=== PATIENT | male | born 1950 | race Caucasian/White ===

== ENCOUNTER 2016-05-21 07:45 | Day surgery (SDC) | payer BC, MEDICARE, OTHER ==
[~2016-05-21 07:45] MED LIST: CHONDR SU A NA/HYALUR INTRAOC KIT (SURGICARE) ONE; EPINEPHRINE INJ/PF 1 MG/1 ML AMPULE ONE; KETOROLAC TROMETHAMINE 0.45% 4 DROP/0.4 ML DROPERETTE OD PRN; LIDOCAINE 1% INJ-PF (10 MG/ML) 30 ML SDV ONE; TOBRAMYCIN SULFATE/DEXAMETH OPH OINTMENT 3.5 GM ONE
[2016-05-21] MEDS: CYCLOPENTOLATE 0.2%/PHENYLEPHRINE 1% OPH SOLN 2 ML OD PRN ×3 (08:06→08:27)
[2016-05-21] MEDS: BESIFLOXACIN HCL 0.6% OPH SUSP 5 ML BOTTLE OD PRN ×3 (08:06→08:55)
[2016-05-21] MEDS: TROPICAMIDE 1% OPH SOLN 3 ML OD PRN ×3 (08:06→08:27)
[2016-05-21] MEDS ORDERED: ALBUTEROL SULFATE 0.083% NEB 2.5 MG/3 ML AMPUL NEB ONE (08:07)
[2016-05-21] MEDS: TETRACAINE HCL 0.5% OPH SOLN 0.6 ML DROPERETTE OD PRN ×3 (08:07→08:35)
[2016-05-21] MEDS ORDERED: FENTANYL CITRATE INJ/PF 100 MCG/2 ML AMPUL ONE (08:15)
[2016-05-21] MEDS ORDERED: MIDAZOLAM 2 MG/2 ML INJ ONE (08:15)
== END 2016-05-21 09:33 | disposition home or self-care (01) ==
LOC: SC 07:45
PROVIDERS: ATTEND Ophthalmology
PROC: 08RJ3JZ Replacement of Right Lens with Synthetic Substitute, Percutaneous Approach (ICD-10-PCS; principal; 2016-05-21 09:00)
DX: H25.11 Age-related nuclear cataract, right eye (principal); J44.9 Chronic obstructive pulmonary disease, unspecified; I10 Essential (primary) hypertension; E11.9 Type 2 diabetes mellitus without complications; E66.9 Obesity, unspecified; F17.210 Nicotine dependence, cigarettes, uncomplicated; M19.90 Unspecified osteoarthritis, unspecified site; E78.00 Pure hypercholesterolemia, unspecified; Z79.51 Long term (current) use of inhaled steroids; Z79.899 Other long term (current) drug therapy; Z79.84 Long term (current) use of oral hypoglycemic drugs; Z79.4 Long term (current) use of insulin
CPT/HCPCS: 82962; 66984; V2630; J2250; J3490 ×3; A9270 ×2; J0171; J3010; 142

== ENCOUNTER 2016-06-04 06:25 | Day surgery (SDC) | payer BC, MEDICARE, OTHER ==
[~2016-06-04 06:25] MED LIST changes: -CHONDR SU A NA/HYALUR INTRAOC KIT (SURGICARE) ONE; -EPINEPHRINE INJ/PF 1 MG/1 ML AMPULE ONE; -KETOROLAC TROMETHAMINE 0.45% 4 DROP/0.4 ML DROPERETTE OD PRN; +KETOROLAC TROMETHAMINE 0.45% 4 DROP/0.4 ML DROPERETTE OS PRN; -LIDOCAINE 1% INJ-PF (10 MG/ML) 30 ML SDV ONE; -TOBRAMYCIN SULFATE/DEXAMETH OPH OINTMENT 3.5 GM ONE
[2016-06-04] MEDS ORDERED: MIDAZOLAM 2 MG/2 ML INJ ONE ×2 (06:39→07:05)
[2016-06-04] MEDS ORDERED: FENTANYL CITRATE INJ/PF 100 MCG/2 ML AMPUL ONE ×2 (06:40→07:05)
[2016-06-04] MEDS: TROPICAMIDE 1% OPH SOLN 3 ML OS PRN ×3 (06:46→07:06)
[2016-06-04] MEDS: BESIFLOXACIN HCL 0.6% OPH SUSP 5 ML BOTTLE OS PRN ×3 (06:46→07:53)
[2016-06-04] MEDS: CYCLOPENTOLATE 0.2%/PHENYLEPHRINE 1% OPH SOLN 2 ML OS PRN ×3 (06:46→07:06)
[2016-06-04] MEDS: TETRACAINE HCL 0.5% OPH SOLN 0.6 ML DROPERETTE OS PRN ×3 (06:47→07:34)
[2016-06-04] MEDS ORDERED: TOBRAMYCIN SULFATE/DEXAMETH OPH OINTMENT 3.5 GM ONE (07:09)
[2016-06-04] MEDS ORDERED: LIDOCAINE 1% INJ-PF (10 MG/ML) 30 ML SDV ONE (07:09)
[2016-06-04] MEDS ORDERED: EPINEPHRINE INJ/PF 1 MG/1 ML AMPULE ONE (07:09)
[2016-06-04] MEDS ORDERED: CHONDR SU A NA/HYALUR INTRAOC KIT (SURGICARE) ONE (07:09)
[2016-06-04] MEDS ORDERED: ALBUTEROL SULFATE 0.083% NEB 2.5 MG/3 ML AMPUL NEB ONE (07:10)
== END 2016-06-04 08:35 | disposition home or self-care (01) ==
LOC: SC 06:25
PROVIDERS: ATTEND Ophthalmology
PROC: 08RK3JZ Replacement of Left Lens with Synthetic Substitute, Percutaneous Approach (ICD-10-PCS; principal; 2016-06-04 07:30)
DX: H25.12 Age-related nuclear cataract, left eye (principal); M19.90 Unspecified osteoarthritis, unspecified site; E11.9 Type 2 diabetes mellitus without complications; I10 Essential (primary) hypertension; E78.00 Pure hypercholesterolemia, unspecified; Z96.1 Presence of intraocular lens; J44.9 Chronic obstructive pulmonary disease, unspecified; I49.9 Cardiac arrhythmia, unspecified; Z79.899 Other long term (current) drug therapy; Z79.1 Long term (current) use of non-steroidal anti-inflammatories (NSAID); Z87.891 Personal history of nicotine dependence; Z85.72 Personal history of non-Hodgkin lymphomas; Z68.42 Body mass index [BMI] 45.0-49.9, adult
CPT/HCPCS: 82962; 66984; V2630; J2250; J3490 ×3; A9270 ×2; J0171; J3010; 142

== ENCOUNTER → 2016-08-01 | Outpatient (CLI) | payer MEDICARE ==
[2016-08-01 11:47] LABS: ANION GAP 12 (5-19); BLOOD UREA NITROGEN 42 mg/dL (7-20); CALCIUM 9.1 mg/dL (8.4-10.2); CARBON DIOXIDE 28 mmol/L (22-30); CHLORIDE 98 mmol/L (98-107); CREATININE RESULT 1.09 mg/dL (0.52-1.25); GLUCOSE 102 mg/dL (75-110)
[2016-08-01 11:54] LABS: POTASSIUM 5.9 mmol/L (3.6-5.0)
== END ==
LOC: OD 10:44
PROVIDERS: ATTEND Internal Medicine Cardiovascular Disease
DX: R06.00 Dyspnea, unspecified (principal)
CPT/HCPCS: 36415; 80048

== ENCOUNTER 2017-01-20 11:50 | Emergency (ER) | payer MEDICARE ==
--- NOTE | 2017-01-20 13:01 | ER Document Report ---
ED Medical Screen (RME) - General Chief Complaint: Abscess Stated Complaint: ABCESS Time Seen by Provider: 01/20/17 13:00 TRAVEL OUTSIDE OF THE [place] IN LAST 30 DAYS: No - HPI Notes: 01/20/17 13:01 Patient comes in for generalized weakness and scrotal abscess ongoing for a few days. Patient is on home O2 did not bring his O2 with him today. - Related Data Allergies/Adverse Reactions: No Known Allergies Allergy (Verified 01/20/17 12:59) Past Medical History - Social History Chew tobacco use (# tins/day): No Frequency of alcohol use: None Drug Abuse: None - Past Medical History Cardiac Medical History: Reports: Hx Hypercholesterolemia, Hx Hypertension Denies: Hx Heart Attack Pulmonary Medical History: Denies: Hx Asthma - ? Neurological Medical History: Denies: Hx Cerebrovascular Accident, Hx Seizures Endocrine Medical History: Reports: Hx Diabetes Mellitus Type 2 Renal/ Medical History: Denies: Hx Peritoneal Dialysis GI Medical History: Denies: Hx Hepatitis, Hx Hiatal Hernia, Hx Ulcer Infectious Medical History: Denies: Hx Hepatitis Past Surgical History: Denies: Hx Open Heart Surgery, Hx Pacemaker - Immunizations Hx Diphtheria, Pertussis, Tetanus Vaccination: Yes Review of Systems - Review of Systems Constitutional: Weakness Physical Exam - General General appearance: Appears well
[2017-01-20] MEDS ORDERED: VANCOMYCIN HCL INJ 1000 MG VIAL IV ONE (14:03)
[2017-01-20] MEDS ORDERED: PIPERACILLIN/TAZOBACTAM 4.5 GM VIAL IV ONE (14:03)
[2017-01-20] MEDS ORDERED: NORMAL SALINE 1000 ML 1,000 ML IV ONE (14:08)
[2017-01-20] MEDS ORDERED: MORPHINE SULFATE 10 MG/ML INJ IV ONE (14:19)
[2017-01-20] MEDS ORDERED: ONDANSETRON HCL INJ/PF 4 MG/2 ML SDV IV ONE (14:19)
[2017-01-20 15:02] LABS: HEMATOCRIT 38.2 % (37.9-51.0); HEMOGLOBIN 12.5 g/dL (13.5-17.0); HGB HCT DIFFERENCE -0.7; MEAN CORPUSCULAR HEMOGLOBIN 28.4 pg (27.0-33.4); MEAN CORPUSCULAR HGB CONC 32.8 g/dL (32.0-36.0); MEAN CORPUSCULAR VOLUME 87 fl (80-97); RED BLOOD COUNT 4.42 10^6/uL (4.35-5.55); RED CELL DISTRIBUTION WIDTH 15.6 % (11.5-14.0)
[2017-01-20 15:08] LABS: ALANINE AMINOTRANSFERASE 76 U/L (21-72); ALBUMIN 3.4 g/dL (3.5-5.0); ALKALINE PHOSPHATASE 112 U/L (38-126); ANION GAP 14 (5-19); ASPARTATE AMINO TRANSFERASE 70 U/L (17-59); BILIRUBIN,DIRECT 1.7 mg/dL (0.0-0.4); BLOOD UREA NITROGEN 48 mg/dL (7-20); CALCIUM 8.3 mg/dL (8.4-10.2); CARBON DIOXIDE 26 mmol/L (22-30); CHLORIDE 92 mmol/L (98-107); CREATININE RESULT 2.09 mg/dL (0.52-1.25); GLUCOSE 137 mg/dL (75-110); LIPASE 119.3 U/L (23-300); MAGNESIUM 1.8 mg/dL (1.6-2.3); POTASSIUM 4.2 mmol/L (3.6-5.0); SODIUM 131.6 mmol/L (137-145); TOTAL PROTEIN 6.4 g/dL (6.3-8.2)
[2017-01-20 15:26] LABS: BASOPHILS % (MANUAL) 0 % (0-2); EOSINOPHILS % (MANUAL) 0 % (0-6); LYMPHOCYTES % (MANUAL) 3 % (13-45); TOTAL CELLS COUNTED 100
[2017-01-20 15:27] LABS: ANISOCYTOSIS SLIGHT
[2017-01-20 15:28] LABS: TOXIC VACUOLATION PRESENT
--- NOTE | 2017-01-20 15:52 | ER Document Report ---
ED General - General Chief Complaint: Abscess Stated Complaint: ABCESS Time Seen by Provider: 01/20/17 13:00 TRAVEL OUTSIDE OF THE [place] IN LAST 30 DAYS: No - HPI Patient complains to provider of: Scrotal abscess feeling weak Notes: Patient coming in stating he has an abscess in the scrotum ongoing for the last week. Patient does state a history of hypertension diabetes patient also states history of multiple myeloma has a port in his right chest due to therapy in the past. Patient states pain now scrotum difficult to walk. Patient denies any fevers chills at home. Patient otherwise denies any other complaints of generalized weakness. Patient supposed to be on home O2 however came to the ER today without his home O2. We will treat his COPD in the past. Patient otherwise looks to be well. Patient does have a foul odor that emanates from him. - Related Data Allergies/Adverse Reactions: No Known Allergies Allergy (Verified 01/20/17 12:59) Past Medical History - Social History Smoking Status: Unknown if Ever Smoked Chew tobacco use (# tins/day): No Frequency of alcohol use: None Drug Abuse: None Family History: Reviewed & Not Pertinent Patient has suicidal ideation: No Patient has homicidal ideation: No - Past Medical History Cardiac Medical History: Reports: Hx Hypercholesterolemia, Hx Hypertension Denies: Hx Heart Attack Pulmonary Medical History: Denies: Hx Asthma - ? Neurological Medical History: Denies: Hx Cerebrovascular Accident, Hx Seizures Endocrine Medical History: Reports: Hx Diabetes Mellitus Type 2 Renal/ Medical History: Denies: Hx Peritoneal Dialysis GI Medical History: Denies: Hx Hepatitis, Hx Hiatal Hernia, Hx Ulcer Infectious Medical History: Denies: Hx Hepatitis Past Surgical History: Denies: Hx Open Heart Surgery, Hx Pacemaker - Immunizations Hx Diphtheria, Pertussis, Tetanus Vaccination: Yes Review of Systems - Review of Systems Constitutional: Weakness EENT: No symptoms reported Cardiovascular: No symptoms reported Respiratory: No symptoms reported Gastrointestinal: No symptoms reported Genitourinary: No symptoms reported Male Genitourinary: No symptoms reported Musculoskeletal: No symptoms reported Skin: Other - Scrotal abscess Hematologic/Lymphatic: No symptoms reported Neurological/Psychological: No symptoms reported Physical Exam - Vital signs Vitals: Temp Pulse Resp BP Pulse Ox 98.0 F 97 16 133/98 H 86 L 01/20/17 12:31 01/20/17 12:31 01/20/17 12:31 01/20/17 12:31 01/20/17 12:31 Interpretation: Normal - General General appearance: Appears well, Alert - HEENT Head: Normocephalic, Atraumatic Eyes: Normal Pupils: PERRL - Respiratory Respiratory status: No respiratory distress Chest status: Nontender Breath sounds: Normal Chest palpation: Normal - Cardiovascular Rhythm: Regular Heart sounds: Normal auscultation Murmur: No - Abdominal Inspection: Normal Distension: No distension Bowel sounds: Normal Tenderness: Nontender Organomegaly: No organomegaly - Genitourinary Notes: Patient has obvious necrotic tissue involving the tip of the penis and the right hemiscrotum the left hemiscrotum is red and edematous there is a similar process extends to the peritoneal region also along the inguinal canals bilaterally. - Back Back: Normal, Nontender - Extremities General upper extremity: Normal inspection, Nontender, Normal color, Normal ROM , Normal temperature General lower extremity: Normal inspection, Nontender, Normal color, Normal ROM , Normal temperature, Normal weight bearing. 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 Laboratory studies showed acute renal failure with leukocytosis. Patient also has some slight elevation in his LFTs more likely due to patient being sick. Otherwise patient has remained hemodynamically stable patient case was discussed with family at bedside and knows the significance of this diagnosis she also understands that he may lose his scrotum and part of his penis. Patient was given vancomycin and Zosyn IV fluids were also given to the patient. Patient's case was discussed with Dr. Bob's general surgery at [facility] who agrees and accepting the patient in transfer. - Vital Signs Vital signs: Temp Pulse Resp BP Pulse Ox 98.5 F 97 19 107/65 97 01/20/17 16:46 01/20/17 12:31 01/20/17 16:43 01/20/17 16:43 01/20/17 16:43 - Laboratory Result Diagrams: 01/20/17 14:20 01/20/17 14:20 Laboratory results interpreted by me: 01/20/17 01/20/17 01/20/17 13:19 14:20 14:20 WBC 23.0 H Hgb 12.5 L RDW 15.6 H Seg Neuts % (Manual) 91 H Lymphocytes % (Manual) 3 L Abs Neuts (Manual) 20.9 H Sodium 131.6 L Chloride 92 L BUN 48 H Creatinine 2.09 H Est GFR ( Amer) 39 L Est GFR (Non-Af Amer) 32 L Glucose 137 H POC Glucose 131 H Calcium 8.3 L Total Bilirubin 2.0 H Direct Bilirubin 1.7 H AST 70 H ALT 76 H Albumin 3.4 L Critical Care Note - Critical Care Note Total time excluding time spent on procedures (mins): 40 Comments: Multiple evaluations for James's gangrene Discharge - Discharge Clinical Impression: Fourniers gangrene Condition: Stable Disposition: [facility] Referrals: COSMO GUILLEN MD [Primary Care Provider] - Follow up as needed
[2017-01-20 16:03] VITALS: BP 107/65
[2017-01-20] MEDS: NORMAL SALINE 1000 ML 1,000 ML IV PRN ×2 (16:09→16:12)
== END 2017-01-20 17:03 | disposition short-term general hospital (02) ==
LOC: ER 11:50
DX: E11.52 Type 2 diabetes mellitus with diabetic peripheral angiopathy with gangrene (principal); N49.3 Fournier gangrene; N49.2 Inflammatory disorders of scrotum; N17.9 Acute kidney failure, unspecified; I10 Essential (primary) hypertension; R53.1 Weakness
CPT/HCPCS: 36591; 99291; 96361; 96375; 96365; 96367; 36415; 87040; 82962; 83690; 83735; 85025; 87077; 80053; 83605; J2270; J2405; J7030; J3370; J2543

== ENCOUNTER 2018-01-26 14:30 | Emergency (ER) | payer MEDICARE ==
--- NOTE | 2018-01-26 15:23 | RADIOLOGY REPORT (SQ) ---
EXAM DESCRIPTION: SHOULDER LEFT 1 VIEW COMPLETED DATE/TIME: 01/26/2018 3:13 pm REASON FOR STUDY: bed 16 s/p fall +deformity COMPARISON: None. NUMBER OF VIEWS: One view. TECHNIQUE: Single frontal view of the shoulder labeled left was obtained. LIMITATIONS: None. FINDINGS: MINERALIZATION: Normal. BONES: There is a comminuted fracture of the left proximal humeral diaphysis with large butterfly fra gment. There is approximately 1 shaft width of lateral displacement of the distal fracture fragments . No definite dislocation appreciated on this single frontal radiograph. VISUALIZED LUNGS AND RIBS: No pneumothorax. No rib fracture. SOFT TISSUES: No radiopaque foreign body. OTHER: No other significant finding. IMPRESSION: Comminuted fracture of the left proximal humeral diaphysis with large butterfly fragment . Approximately 1 shaft width of lateral displacement of the distal fracture fragments. No definite shoulder dislocation on this single frontal radiograph. TECHNICAL DOCUMENTATION: JOB ID: [id number] [employer]- All Rights Reserved Reading location - IP/workstation name: [email or web address]
[2018-01-26] MEDS ORDERED: LIDOCAINE 1%/EPINEPHRINE INJ 20 ML VIAL INJ ONE (15:25)
[2018-01-26] MEDS ORDERED: FENTANYL CITRATE INJ/PF 100 MCG/2 ML AMPUL IV ONE (15:25)
--- NOTE | 2018-01-26 15:30 | ER Document Report ---
ED Syncope and Near Syncope - General Stated Complaint: HEAD INJURY Time Seen by Provider: 01/26/18 14:58 Mode of Arrival: Medic Information source: Patient, Relative Notes: Patient states that he was at home and he stood up to use the urinal and got dizzy. Patient states that he lost his balance and fell landing on a glass TV stand. Patient denies any loss of consciousness. Patient does complain of left arm injury and facial laceration. Patient denies any nausea or vomiting. Patient denies any chest pain neck pain or back tenderness. Patient states that he felt fine before he got up to go to the bathroom. Patient complains now only of left arm pain TRAVEL OUTSIDE OF THE [place] IN LAST 30 DAYS: No - HPI Patient complains to provider of: Nearly fainting Episode witnessed (by whom): No Symptoms prior to episode: Dizziness. No: Back pain, Chest pain, Headache Position/Activity at time of episode: Standing Quality of pain: Sharp Pain Level: 5 Context: Other - Dizziness after standing suddenly. denies: Lost consciousness , Recent immobilization, Seizure activity observed Injury location: Head, LUE Current symptoms: Arm pain. denies: Nausea, Neck pain, Shoulder pain Similar symptoms previously: No Recently seen / treated by doctor: No - Related Data Allergies/Adverse Reactions: No Known Allergies Allergy (Verified 01/20/17 12:59) Past Medical History - General Information source: Patient - Social History Smoking Status: Current Every Day Smoker Frequency of alcohol use: None Drug Abuse: None Occupation: None Lives with: Family Family History: Reviewed & Not Pertinent - Past Medical History Cardiac Medical History: Reports: Hx Congestive Heart Failure, Hx Hypercholesterolemia, Hx Hypertension Denies: Hx Heart Attack Pulmonary Medical History: Reports: Hx COPD Denies: Hx Asthma - ? Neurological Medical History: Denies: Hx Cerebrovascular Accident, Hx Seizures Endocrine Medical History: Reports: Hx Diabetes Mellitus Type 2 Renal/ Medical History: Denies: Hx Peritoneal Dialysis Malignancy Medical History: Reports Hx Lymphoma GI Medical History: Denies: Hx Hepatitis, Hx Hiatal Hernia, Hx Ulcer Musculoskeletal Medical History: Reports Hx Arthritis Infectious Medical History: Denies: Hx Hepatitis Past Surgical History: Reports: Hx Neurologic Surgery - Spinal tumor removed, Hx Testicular Surgery - James's gangrene. Denies: Hx Open Heart Surgery, Hx Pacemaker - Immunizations Hx Diphtheria, Pertussis, Tetanus Vaccination: Yes Review of Systems - Review of Systems Constitutional: No symptoms reported. denies: Diaphoresis, Fever EENT: No symptoms reported Cardiovascular: Dizziness. denies: Chest pain Respiratory: No symptoms reported. denies: Cough, Short of breath Gastrointestinal: No symptoms reported. denies: Abdominal pain, Nausea, Vomiting Genitourinary: No symptoms reported Male Genitourinary: No symptoms reported Musculoskeletal: Other - Left upper extremity pain Skin: Other - Facial laceration Hematologic/Lymphatic: No symptoms reported Neurological/Psychological: No symptoms reported. denies: Lost consciousness Physical Exam - Vital signs Vitals: Temp 98.4 F 01/26/18 14:30 - General General appearance: Appears well, Alert In distress: Mild - HEENT Head: Open wounds - large lac to left brow. No: Racoon's eyes Conjunctiva: Normal Extraocular movements intact: Yes Nasal: Normal Mouth/Lips: Normal Mucous membranes: Normal Neck: Normal, Supple Notes: No cervical midline tenderness step-off or deformity - Respiratory Respiratory status: No respiratory distress Chest status: Nontender Breath sounds: Normal. No: Rales, Rhonchi, Stridor, Wheezing Chest palpation: Normal - Cardiovascular Rhythm: Regular Heart sounds: S1 appreciated, S2 appreciated Pulses: Normal: Radial - Abdominal Inspection: Morbidly Obese Distension: No distension Bowel sounds: Normal Tenderness: Nontender Organomegaly: No organomegaly - Back Back: Normal. No: Deformity/step-off, CVA tenderness, Vertebra tenderness - Extremities General upper extremity: Tender - LUE tenderness, +deformity, Edema General lower extremity: Edema - bilat LE, Normal ROM - Neurological Neuro grossly intact: Yes Cognition: Normal Lexii Coma Scale Eye Opening: Spontaneous Lexii Coma Scale Verbal: Oriented [place] Coma Scale Motor: Obeys Commands Lexii Coma Scale Total: 15 - Psychological Associated symptoms: Normal affect, Normal mood - Skin Skin Temperature: Warm Skin Moisture: Dry Skin Color: Normal Skin irregularity: Laceration Location of irregularity: Face Course - Re-evaluation Re-evalutation: 01/26/18 18:15 While at bedside repairing patient's facial laceration, patient states that he has been having left upper quadrant, lower costal rib tenderness that started since his arrival here. Additional studies ordered. 01/26/18 20:04 CT scan report reviewed, no intra-abdominal or intrathoracic chest wall injury. Consulted with Dr. Orlando regarding patient's humeral fracture. Dr Orlando advises placing patient in a shoulder immobilizer and having him follow-up in the office. 01/26/18 20:29 Bedside report and handout given to Jeff JUSTICE. Patient continues with stable vital signs without complaints of chest pain at this time. Patient is awaiting a repeat troponin. 01/26/18 20:33 Patient advised of incidental finding of adenopathy noted on CT scan. Patient given a copy of his CAT scan so that he can follow-up with his primary doctor about the retroperitoneal adenopathy given his history of lymphoma. 01/26/18 20:37 Repeat troponin reviewed, consulted with Dr. Roca regarding patient presentation, reviewed diagnostic test results as well as radiology reports. Agrees with discharge plan of care as ortho does not feel the patient needs to be admitted at this time. - Vital Signs Vital signs: Temp Pulse Resp BP Pulse Ox 98.4 F 97 01/26/18 14:30 01/26/18 15:25 - Laboratory Result Diagrams: 01/26/18 15:40 01/26/18 15:40 Laboratory results interpreted by me: 01/26/18 01/26/18 15:40 15:40 WBC 13.4 H Hgb 12.2 L Hct 37.6 L RDW 17.1 H Seg Neuts % (Manual) 87 H Lymphocytes % (Manual) 3 L Abs Neuts (Manual) 11.7 H Abs Lymphs (Manual) 0.4 L Chloride 93 L Carbon Dioxide 37 H BUN 23 H Glucose 336 H AST 12 L ALT 19 L Creatine Kinase 39 L Total Protein 6.0 L Labs- Entire Visit 01/26/18 01/26/18 01/26/18 15:40 15:40 15:40 WBC 13.4 H RBC 4.47 Hgb 12.2 L Hct 37.6 L MCV 84 MCH 27.3 MCHC 32.4 RDW 17.1 H Plt Count 265 Total Counted 100 Seg Neutrophils % Not Reportable Seg Neuts % (Manual) 87 H Lymphocytes % Not Reportable Lymphocytes % (Manual) 3 L Monocytes % Not Reportable Monocytes % (Manual) 9 Eosinophils % Not Reportable Eosinophils % (Manual) 1 Basophils % Not Reportable Basophils % (Manual) 0 Absolute Neutrophils Not Reportable Abs Neuts (Manual) 11.7 H Absolute Lymphocytes Not Reportable Abs Lymphs (Manual) 0.4 L Absolute Monocytes Not Reportable Abs Monocytes (Manual) 1.2 Absolute Eosinophils Not Reportable Absolute Eos (Manual) 0.1 Absolute Basophils Not Reportable Abs Basophils (Manual) 0.0 Toxic Granulation SLIGHT Platelet Comment ADEQUATE Poikilocytosis SLIGHT Anisocytosis SLIGHT Sodium 137.5 Potassium 4.6 Chloride 93 L Carbon Dioxide 37 H Anion Gap 8 BUN 23 H Creatinine 0.96 Est GFR ( Amer) > 60 Est GFR (Non-Af Amer) > 60 Glucose 336 H Calcium 8.6 Magnesium 1.7 Total Bilirubin 0.9 Direct Bilirubin 0.1 Neonat Total Bilirubin Not Reportable Neonat Direct Bilirubin Not Reportable Neonat Indirect Bili Not Reportable AST 12 L ALT 19 L Alkaline Phosphatase 117 Creatine Kinase 39 L CK-MB (CK-2) 1.07 Troponin I < 0.012 Total Protein 6.0 L Albumin 3.5 01/26/18 19:35 WBC RBC Hgb Hct MCV MCH MCHC RDW Plt Count Total Counted Seg Neutrophils % Seg Neuts % (Manual) Lymphocytes % Lymphocytes % (Manual) Monocytes % Monocytes % (Manual) Eosinophils % Eosinophils % (Manual) Basophils % Basophils % (Manual) Absolute Neutrophils Abs Neuts (Manual) Absolute Lymphocytes Abs Lymphs (Manual) Absolute Monocytes Abs Monocytes (Manual) Absolute Eosinophils Absolute Eos (Manual) Absolute Basophils Abs Basophils (Manual) Toxic Granulation Platelet Comment Poikilocytosis Anisocytosis Sodium Potassium Chloride Carbon Dioxide Anion Gap BUN Creatinine Est GFR ( Amer) Est GFR (Non-Af Amer) Glucose Calcium Magnesium Total Bilirubin Direct Bilirubin Neonat Total Bilirubin Neonat Direct Bilirubin Neonat Indirect Bili AST ALT Alkaline Phosphatase Creatine Kinase CK-MB (CK-2) Troponin I 0.017 Total Protein Albumin - Diagnostic Test Radiology reviewed: Reports reviewed Procedures - Immobilization Left Arm Pre-Proc Neuro Vasc Exam: Normal Immobilizer type: Shoulder immobilizer Performed by: RN Post-Proc Neuro Vasc Exam: Normal Alignment checked and good: Yes - Laceration/Wound Repair Left Face Wound length (cm): 6.5 Wound's Depth, Shape: Linear Laceration pre-procedure: Shur-Clens applied Anesthetic type: 1% Lidocaine w/epi Wound explored: Clean Irrigated w/ Saline (mLs): 100 Wound Repaired With: Sutures Suture Size/Type: 6:0, Nylon Number of Sutures: 16 Layer Closure?: Yes Deep Layer Suture Size/Type: 5:0, Other - vicryl Number Deep Layer Sutures: 2 Post-procedure NV exam normal: Yes Complications: No Adult Head Front/Back picture: 1 - lac 2 - lac Face Wound length (cm): 1.5 Wound's Depth, Shape: Linear Anesthetic type: 1% Lidocaine w/epi Wound explored: Clean Wound Repaired With: Sutures Suture Size/Type: 6:0, Nylon Number of Sutures: 2 Layer Closure?: No Post-procedure NV exam normal: Yes Complications: No Discharge - Discharge Clinical Impression: Left humeral fracture Qualifiers: Encounter type: initial encounter Humerus Location: shaft Fracture type: closed Fracture morphology: comminuted Fracture alignment: displaced Qualified Code(s): S42.352A - Displaced comminuted fracture of shaft of humerus, left arm , initial encounter for closed fracture Abdominal pain Qualifiers: Abdominal location: left upper quadrant Qualified Code(s): R10.12 - Left upper quadrant pain Head injury Qualifiers: Encounter type: initial encounter Qualified Code(s): S09.90XA - Unspecified injury of head, initial encounter Facial laceration Qualifiers: Encounter type: initial encounter Qualified Code(s): S01.81XA - Laceration without foreign body of other part of head, initial encounter Condition: Stable Disposition: HOME, SELF-CARE Instructions: Abdominal Pain ([facility]), Facial Laceration ([facility]), Fracture ([facility]), Head Injury Precautions ([facility]), Near Syncopal Episode ([facility]), Sling to be Used ( [facility]) Additional Instructions: Return immediately for any new or worsening symptoms Followup with your primary care provider, call tomorrow to make a followup appointment Follow-up with orthopedics, call their office first thing tomorrow for a follow- up appointment. Prescriptions: Oxycodone HCl/Acetaminophen [Percocet 5-325 mg Tablet] 1 tab PO ASDIR PRN #15 tablet PRN Reason: Forms: Smoking Cessation Education Referrals: COSMO GUILLEN MD [Primary Care Provider] - Follow up as needed DALTON GAO MD [ACTIVE STAFF] - Follow up tomorrow
[2018-01-26 15:58] LABS: HEMATOCRIT 37.6 % (37.9-51.0); HEMOGLOBIN 12.2 g/dL (13.5-17.0); MEAN CORPUSCULAR HEMOGLOBIN 27.3 pg (27.0-33.4); MEAN CORPUSCULAR HGB CONC 32.4 g/dL (32.0-36.0); MEAN CORPUSCULAR VOLUME 84 fl (80-97); PLATELET COUNT 265 10^3/uL (150-450); RED BLOOD COUNT 4.47 10^6/uL (4.35-5.55); RED CELL DISTRIBUTION WIDTH 17.1 % (11.5-14.0); WHITE BLOOD COUNT 13.4 10^3/uL (4.0-10.5)
[2018-01-26 16:17] LABS: ABSOLUTE LYMPHOCYTES# (MANUAL) 0.4 10^3/uL (0.5-4.7); ABSOLUTE MONOCYTES # (MANUAL) 1.2 10^3/uL (0.1-1.4); ABSOLUTE NEUTROPHILS# (MANUAL) 11.7 10^3/uL (1.7-8.2); BASOPHILS % (MANUAL) 0 % (0-2); EOSINOPHILS % (MANUAL) 1 % (0-6); LYMPHOCYTES % (MANUAL) 3 % (13-45); MONOCYTES % (MANUAL) 9 % (3-13); SEGMENTED NEUTROPHILS % (MAN) 87 % (42-78); TOTAL CELLS COUNTED 100
[2018-01-26 16:18] LABS: ANISOCYTOSIS SLIGHT; PLATELET COMMENT ADEQUATE; POIKILOCYTOSIS SLIGHT; TOXIC GRANULATION SLIGHT
[2018-01-26 16:19] LABS: ALANINE AMINOTRANSFERASE 19 U/L (21-72); ALBUMIN 3.5 g/dL (3.5-5.0); ALKALINE PHOSPHATASE 117 U/L (38-126); ANION GAP 8 (5-19); ASPARTATE AMINO TRANSFERASE 12 U/L (17-59); BILIRUBIN,DIRECT 0.1 mg/dL (0.0-0.4); BILIRUBIN,TOTAL 0.9 mg/dL (0.2-1.3); BLOOD UREA NITROGEN 23 mg/dL (7-20); CALCIUM 8.6 mg/dL (8.4-10.2); CARBON DIOXIDE 37 mmol/L (22-30); CHLORIDE 93 mmol/L (98-107); CREATINE KINASE 39 U/L (55-170); GLUCOSE 336 mg/dL (75-110); POTASSIUM 4.6 mmol/L (3.6-5.0); SODIUM 137.5 mmol/L (137-145)
--- NOTE | 2018-01-26 16:21 | RADIOLOGY REPORT (SQ) ---
EXAM DESCRIPTION: CT HEAD WITHOUT COMPLETED DATE/TIME: 01/26/2018 4:11 pm REASON FOR STUDY: near syncope, fall, head injury COMPARISON: None. TECHNIQUE: Axial images acquired through the brain without intravenous contrast. Images reviewed wi th bone, brain and subdural windows. Additional sagittal and coronal reconstructions were generated. Images stored on PACS. All CT scanners at this facility use dose modulation, iterative reconstruction, and/or weight based d osing when appropriate to reduce radiation dose to as low as reasonably achievable (ALARA). [facility]: Dose Right [facility]: CareDose [facility]: Dose Right [facility]: Teradose 4D [facility]: Smart [employer] RADIATION DOSE: CT Rad equipment meets quality standard of care and radiation dose reduction techniq ues were employed. CTDIvol: 53.2 mGy. DLP: 1044 mGy-cm. mGy. LIMITATIONS: None. FINDINGS: VENTRICLES: Prominent. CEREBRUM: No masses. No hemorrhage. No midline shift. Areas of low density in the white matter mos t likely due to chronic micro-vascular ischemic change. No evidence for acute infarction. CEREBELLUM: No masses. No hemorrhage. No alteration of density. No evidence for acute infarction. EXTRAAXIAL SPACES: Mild age-related involutional change. No fluid collections. No masses. ORBITS AND GLOBE: No intra- or extraconal masses. Normal contour of globe without masses. CALVARIUM: No fracture. PARANASAL SINUSES: No fluid or mucosal thickening. SOFT TISSUES: No mass or hematoma. OTHER: No other significant finding. IMPRESSION: MILD CHRONIC CHANGES OF ATROPHY AND MICROVASCULAR ISCHEMIA. NO ACUTE PROCESS. EVIDENCE OF ACUTE STROKE: NO. TECHNICAL DOCUMENTATION: JOB ID: [id number] Quality ID # [id number]: Final reports with documentation of one or more dose reduction techniques (e.g., Au tomated exposure control, adjustment of the mA and/or kV according to patient size, use of iterative reconstruction technique) 2010 [employer]- All Rights Reserved Reading location - IP/workstation name: [email or web address]
[2018-01-26 16:30] LABS: CREATINE KINASE MB 1.07 ng/mL (<4.55)
--- NOTE | 2018-01-26 16:30 | RADIOLOGY REPORT (SQ) ---
EXAM DESCRIPTION: CHEST SINGLE VIEW COMPLETED DATE/TIME: 01/26/2018 4:19 pm REASON FOR STUDY: near syncope, fall COMPARISON: None. NUMBER OF VIEWS: One view. TECHNIQUE: Single frontal radiographic view of the chest acquired. LIMITATIONS: None. FINDINGS: LUNGS AND PLEURA: No opacities, masses or pneumothorax. No pleural effusion. MEDIASTINUM AND HILAR STRUCTURES: No masses. Contour normal. HEART AND VASCULAR STRUCTURES: Heart enlarged without failure. Normal vasculature. BONES: No acute findings. HARDWARE: Vascular port. Cardiac recording device. OTHER: No other significant finding. IMPRESSION: HEART ENLARGED WITHOUT FAILURE. NO OTHER SIGNIFICANT RADIOGRAPHIC FINDING IN THE CHEST. TECHNICAL DOCUMENTATION: JOB ID: [id number] [employer]- All Rights Reserved Reading location - IP/workstation name: [email or web address]
--- NOTE | 2018-01-26 16:30 | RADIOLOGY REPORT (SQ) ---
EXAM DESCRIPTION: CT CERVICAL SPINE WITHOUT COMPLETED DATE/TIME: 01/26/2018 4:11 pm REASON FOR STUDY: near syncope, fall, head injury COMPARISON: None. TECHNIQUE: Axial images acquired through the cervical spine without intravenous contrast. Images re viewed with lung, soft tissue and bone windows. Reconstructed coronal and sagittal MPR images review ed. Images stored on PACS. All CT scanners at this facility use dose modulation, iterative reconstruction, and/or weight based d osing when appropriate to reduce radiation dose to as low as reasonably achievable (ALARA). [facility]: Dose Right [facility]: CareDose [facility]: Dose Right [facility]: Teradose 4D [facility]: GruvIt RADIATION DOSE: CT Rad equipment meets quality standard of care and radiation dose reduction techniq ues were employed. CTDIvol: 30.4 mGy. DLP: 651 mGy-cm. mGy. LIMITATIONS: Limited exam secondary to patient body habitus and motion. Evaluation of C4 through C7 limited secondary to poor detail. FINDINGS: ALIGNMENT: Straightening of the normal cervical lordosis, likely positional. MINERALIZATION: Normal. VERTEBRAL BODIES: No fractures or dislocation. DISCS: Mild multilevel degenerative changes of the cervical spine with disc height loss greatest in C 6-7. Mild multilevel osteophytes. FACETS, LATERAL MASSES, POSTERIOR ELEMENTS: No evidence of dislocation. Facets are well aligned. HARDWARE: None in the spine. VISUALIZED RIBS: No fractures. LUNG APICES AND SOFT TISSUES: Retropharyngeal course of the carotid arteries. No acute findings. S hotty mediastinal nodes without discrete adenopathy. OTHER: No other significant finding. IMPRESSION: Limited detail of C4 -C7 secondary to motion and body habitus. No gross evidence of acute osseous injury to the cervical spine within the limitations of the exam. TECHNICAL DOCUMENTATION: JOB ID: [id number] Quality ID # [id number]: Final reports with documentation of one or more dose reduction techniques (e.g., Au tomated exposure control, adjustment of the mA and/or kV according to patient size, use of iterative reconstruction technique) 2010 [employer]- All Rights Reserved Reading location - IP/workstation name: [email or web address]
[2018-01-26 16:32] LABS: TROPONIN I < 0.012 ng/mL
[2018-01-26] MEDS ORDERED: HYDROMORPHONE HCL INJ/PF 2 MG/ML AMPULE IV ONE (19:04)
--- NOTE | 2018-01-26 19:41 | RADIOLOGY REPORT (SQ) ---
EXAM DESCRIPTION: CT CHEST WITH COMPLETED DATE/TIME: 01/26/2018 7:29 pm REASON FOR STUDY: fall, LUQ, L lower rib pain COMPARISON: None. TECHNIQUE: CT scan of the chest performed using helical scanning technique with dynamic intravenous contrast injection. Images reviewed with lung, soft tissue and bone windows. Reconstructed coronal and sagittal MPR and MIP images reviewed. All images stored on PACS. All CT scanners at this facility use dose modulation, iterative reconstruction, and/or weight based d osing when appropriate to reduce radiation dose to as low as reasonably achievable (ALARA). [facility]: Dose Right [facility]: CareDose [facility]: Dose Right [facility]: Teradose 4D [facility]: VisualCV CONTRAST TYPE AND DOSE: contrast/concentration: Isovue 350.00 mg/ml; Total Contrast Delivered: 100.0 ml; Total Saline Delivered: 54.0 ml RENAL FUNCTION: BUN 23 creatinine 0.96. RADIATION DOSE: CT Rad equipment meets quality standard of care and radiation dose reduction techniq ues were employed. CTDIvol: 20.9 - 29.5 mGy. DLP: 3484 mGy-cm. . LIMITATIONS: None. FINDINGS: LUNGS AND PLEURA: Scattered atelectasis/scarring. No opacities, nodules, masses. No pneu mothorax. No effusions. HILAR AND MEDIASTINAL STRUCTURES: No identified masses or abnormal nodes. HEART AND VASCULAR STRUCTURES: No aneurysm or dissection. No central pulmonary emboli. No pericardi al effusion. HARDWARE: None in the chest. UPPER ABDOMEN: See separate report of the CT of the abdomen. THYROID AND OTHER SOFT TISSUES: No masses. No adenopathy. BONES: Fracture of the proximal left humerus. No rib fractures visualized. OTHER: No other significant finding. IMPRESSION: FRACTURE OF THE PROXIMAL LEFT HUMERUS. SCATTERED ATELECTASIS/ SCARRING. OTHERWISE UNRE MARKABLE CT OF THE CHEST WITH IV CONTRAST. NO RIB FRACTURES VISUALIZED. TECHNICAL DOCUMENTATION: JOB ID: [id number] Quality ID # [id number]: Final reports with documentation of one or more dose reduction techniques (e.g., Au tomated exposure control, adjustment of the mA and/or kV according to patient size, use of iterative reconstruction technique) 2010 [employer]- All Rights Reserved Reading location - IP/workstation name: [email or web address]
--- NOTE | 2018-01-26 19:46 | RADIOLOGY REPORT (SQ) ---
EXAM DESCRIPTION: CT ABD/PELVIS WITH IV ONLY COMPLETED DATE/TIME: 01/26/2018 7:29 pm REASON FOR STUDY: fall, LUQ, L lower rib pain COMPARISON: 07/30/2012 and 09/23/2011. TECHNIQUE: CT scan of the abdomen and pelvis performed using helical scanning technique with dynamic intravenous contrast injection. No oral contrast. Images reviewed with lung, soft tissue, and bone windows. Reconstructed coronal and sagittal MPR images reviewed. Delayed images for evaluation of the urinary system also acquired. All images stored on PACS. All CT scanners at this facility use dose modulation, iterative reconstruction, and/or weight based d osing when appropriate to reduce radiation dose to as low as reasonably achievable (ALARA). [facility]: Dose Right [facility]: CareDose [facility]: Dose Right [facility]: Teradose 4D [facility]: [employer] CONTRAST TYPE AND DOSE: 100 mL Omnipaque 350- low osmolar. RENAL FUNCTION: BUN 23 creatinine 0.96. RADIATION DOSE: . LIMITATIONS: Limited positioning due to injury to the patient's left arm. The lateral right side of the abdomen is not included on the images. FINDINGS: LOWER CHEST: See separate report of the CT of the chest. LIVER: Normal size. No masses. No dilated ducts. SPLEEN: Normal size. No focal lesions. PANCREAS: No masses. No significant calcifications. No adjacent inflammation or peripancreatic fluid collections. Pancreatic duct not dilated. GALLBLADDER: No identified stones by CT criteria. No inflammatory changes to suggest cholecystitis. ADRENAL GLANDS: No significant masses or asymmetry. RIGHT KIDNEY AND URETER: No solid masses. No significant calcifications. No hydronephrosis or hyd roureter. LEFT KIDNEY AND URETER: No solid masses. No significant calcifications. No hydronephrosis or hydr oureter. AORTA AND VESSELS: No aneurysm. No dissection. Renal arteries, SMA, celiac without stenosis. RETROPERITONEUM: Ill-defined soft tissue in the left periaortic region, unchanged, presumed adenopath y. BOWEL AND PERITONEAL CAVITY: No masses or inflammatory changes. No free fluid or peritoneal masses. APPENDIX: Not visualized. PELVIS: No mass. No free fluid. Normal bladder. ABDOMINAL WALL: No masses. No hernias. BONES: Again seen is old compression fracture of L 2. No acute bony findings. OTHER: No other significant finding. IMPRESSION: 1. STABLE MILD RETROPERITONEAL ADENOPATHY. 2. OLD COMPRESSION FRACTURE OF THE L2 VERTEBRA. 3. NO OTHER SIGNIFICANT OR ACUTE FINDING IN THE ABDOMEN OR PELVIS ON CT SCAN WITH IV CONTRAST. STUDY LIMITED DUE TO OFF CENTER POSITIONING. TECHNICAL DOCUMENTATION: JOB ID: [id number] Quality ID # [id number]: Final reports with documentation of one or more dose reduction techniques (e.g., Au tomated exposure control, adjustment of the mA and/or kV according to patient size, use of iterative reconstruction technique) 2010 [employer]- All Rights Reserved Reading location - IP/workstation name: [email or web address]
[2018-01-26] MEDS ORDERED: HYDROCODONE/ACETAMINOPHEN 5-325 MG (6 TAB/ER DISP) PO PRN (20:51)
[2018-01-26 21:18] VITALS: BP 165/75
--- NOTE | 2018-01-26 23:35 | EKG REPORT ---
SEVERITY:- ABNORMAL ECG - SINUS RHYTHM ATRIAL PREMATURE COMPLEX RIGHT BUNDLE BRANCH BLOCK INFERIOR INFARCT, AGE INDETERMINATE CONSIDER ANTEROSEPTAL INFARCT : Confirmed by: Corina Moura MD 26-Jan-2018 23:34:48
== END 2018-01-26 21:18 | disposition home or self-care (01) ==
LOC: ER 14:30
DX: S42.352A Displaced comminuted fracture of shaft of humerus, left arm, initial encounter for closed fracture (principal); S01.112A Laceration without foreign body of left eyelid and periocular area, initial encounter; W18.39XA Other fall on same level, initial encounter; Y93.89 Activity, other specified; Y92.009 Unspecified place in unspecified non-institutional (private) residence as the place of occurrence of the external cause; R42 Dizziness and giddiness; R60.0 Localized edema; R59.9 Enlarged lymph nodes, unspecified; R10.812 Left upper quadrant abdominal tenderness; E11.9 Type 2 diabetes mellitus without complications; I10 Essential (primary) hypertension; J44.9 Chronic obstructive pulmonary disease, unspecified; F17.200 Nicotine dependence, unspecified, uncomplicated; Z85.72 Personal history of non-Hodgkin lymphomas
CPT/HCPCS: 93005; 99285; 96374; 36415; 82553; 82550; 83735; 85025; 80053; 84484; 71045; 73020; 70450; 71260; 72125; 74177; 93010; 12053; 12011; L3650; J3010; J3490; J1170; A9270

== ENCOUNTER 2018-02-02 10:56 | Emergency (ER) | payer MEDICARE ==
--- NOTE | 2018-02-02 12:18 | ER Document Report ---
ED Suture/Wound Recheck - General Chief Complaint: Suture Removal Stated Complaint: SUTURE REMOVAL/LEFT EYEBROW Time Seen by Provider: 02/02/18 11:52 Mode of Arrival: Wheelchair Information source: Patient Notes: 67-year-old male presented to ED for this removal of sutures from the left eyebrow there was placed a week ago. He states that his only concern today is removal of the sutures. He is alert and oriented respirations regular and unlabored. He is in a splint to his left arm with a sling that was improperly placed. I did assist him to correctly place the sling on his arm. is with patient and states that he does not let her put sling on him properly. I explained to the patient that improper splints and strains can actually cause more damage. Wound to the eyebrow is well approximated and healing well. 16 sutures were removed and Steri-Strips applied to the site. was given instructions concerning care of Steri-Strips. TRAVEL OUTSIDE OF THE [place] IN LAST 30 DAYS: No - HPI Previous ED treatment: Laceration repair Antibiotics given previously: Prescription Quality of pain: No pain - To the laceration Severity: None Pain Level: Denies Context: Injury Symptoms since procedure: No complaints Exacerbated by: Denies Relieved by: Denies - Related Data Allergies/Adverse Reactions: No Known Allergies Allergy (Verified 01/20/17 12:59) Past Medical History - General Information source: Patient - And why - Social History Smoking Status: Current Every Day Smoker Cigarette use (# per day): Yes Smoking Education Provided: Yes - 4 minutes Frequency of alcohol use: None Drug Abuse: None Lives with: Family Family History: Reviewed & Not Pertinent Patient has suicidal ideation: No Patient has homicidal ideation: No - Past Medical History Cardiac Medical History: Reports: Hx Congestive Heart Failure, Hx Hypercholesterolemia, Hx Hypertension Pulmonary Medical History: Reports: Hx COPD EENT Medical History: Reports: None Neurological Medical History: Reports: None Endocrine Medical History: Reports: Hx Diabetes Mellitus Type 2 Renal/ Medical History: Reports: None Malignancy Medical History: Reports Hx Lymphoma GI Medical History: Reports: None Musculoskeletal Medical History: Reports Hx Arthritis, Reports Hx Musculoskeletal Deformity, Reports Hx Musculoskeletal Trauma Skin Medical History: Reports None Psychiatric Medical History: Reports: None Traumatic Medical History: Reports: Hx Fractures Past Surgical History: Reports: Hx Neurologic Surgery - Spinal tumor removed, Hx Testicular Surgery - James's gangrene - Immunizations Hx Diphtheria, Pertussis, Tetanus Vaccination: Yes Review of Systems - Review of Systems Constitutional: No symptoms reported EENT: No symptoms reported Cardiovascular: No symptoms reported Respiratory: No symptoms reported Gastrointestinal: No symptoms reported Genitourinary: No symptoms reported Male Genitourinary: No symptoms reported Musculoskeletal: No symptoms reported Skin: Other - 16 sutures to the left eyebrow were removed Steri-Strips applied to the laceration Hematologic/Lymphatic: No symptoms reported Neurological/Psychological: No symptoms reported Physical Exam - Vital signs Vitals: Temp Pulse Resp BP Pulse Ox 98.4 F 77 20 135/74 H 94 02/02/18 11:00 02/02/18 11:00 02/02/18 11:00 02/02/18 11:00 02/02/18 11:00 Interpretation: Normal - General General appearance: Appears well, Alert - HEENT Head: Other - Laceration to the left eyebrow from fall last week. Sutures removed Steri-Strips placed instructed on care of Steri-Strips Eyes: Normal Pupils: PERRL Ears: Normal External canal: Normal Tympanic membrane: Normal Sinus: Normal Nasal: Normal Mouth/Lips: Normal Mucous membranes: Normal Pharynx: Normal Neck: Normal - Respiratory Respiratory status: No respiratory distress Chest status: Nontender Breath sounds: Normal Chest palpation: Normal - Cardiovascular Rhythm: Regular Heart sounds: Normal auscultation Murmur: No - Abdominal Inspection: Normal Distension: No distension Bowel sounds: Normal Tenderness: Nontender Organomegaly: No organomegaly - Back Back: Normal, Nontender - Extremities General upper extremity: Normal color, Normal temperature General lower extremity: Normal inspection, Nontender, Normal color, Normal ROM , Normal temperature, Normal weight bearing. No: Preston's sign Arm: Other - Splint and sling to the left arm unable to assess left arm patient does states it is tender to movement. Elbow: Other - Splint and sling to the left arm unable to assess left arm patient does states it is tender to movement. Forearm: Other - Splint and sling to the left arm unable to assess left arm patient does states it is tender to movement. Wrist: Other - Splint and sling to the left arm unable to assess left arm patient does states it is tender to movement. - Neurological Neuro grossly intact: Yes Cognition: Normal Orientation: AAOx4 Gambell Coma Scale Eye Opening: Spontaneous Gambell Coma Scale Verbal: Oriented Gambell Coma Scale Motor: Obeys Commands Lexii Coma Scale Total: 15 Speech: Normal Motor strength normal: LUE, RUE, LLE, RLE Sensory: Normal - Psychological Associated symptoms: Normal affect, Normal mood - Skin Skin Temperature: Warm Skin Moisture: Dry Skin Color: Normal Course - Vital Signs Vital signs: Temp Pulse Resp BP Pulse Ox 98.2 F 81 19 133/54 H 89 L 02/02/18 12:19 18 12:19 18 12:19 02/02/18 12:19 02/02/18 12:19 Discharge - Discharge Clinical Impression: Encounter for removal of sutures Condition: Stable Disposition: HOME, SELF-CARE Instructions: Suture Removal Additional Instructions: Care of Steri-Strip Closure Your cut has been closed up with a special surgical tape. For this type of cut, it can replace stitches. You must protect the wound just as you would with stitches, however. For the first few days, keep the wound area completely dry. This also means you should avoid activity which makes you sweat. Do not move the area if motion stretches or wrinkles the strips. Don't allow the area to be bumped -- if bleeding occurs, the blood can make the strips loosen. The strips are somewhat waterproof. After a few days, the physician may allow you to shower. Be sure to ask if it's OK. Do not remove the tape until it peels off by itself. At that time, the wound should be healed. Please keep elbow elevated and in the sling properly. Acetaminophen Acetaminophen may be taken for pain relief or fever control. It's much safer than aspirin, offering a wider range of "safe" dosages. It is safe during . Some brand names are Tylenol, Panadol, Datril, Anacin 3, Tempra, and Liquiprin. Acetaminophen can be repeated every four hours. The following are maximum recommended dosages: WEIGHT Dose Drops Elixir Chewable( 80mg) (LBS.) drprs=droppers tsp=teaspoon 6 40 mg .4 ml (1/2) 6-11 80 mg .8 ml (full) 1/2 tsp 1 tab 12-16 120 mg 1 1/2 drprs 3/4 tsp 1 1/2 tabs 17-23 160 mg 2 drprs 1 tsp 2 tabs 24-30 240 mg 3 drprs 1 1/2 tsp 3 tabs 30-35 320 mg 2 tsp 4 tabs 36-41 360 mg 2 1/4 tsp 4 1 /2 tabs 42-47 400 mg 2 1/2 tsp 5 tabs 48-53 480 mg 3 tsp 6 tabs 54-59 520 mg 3 1/4 tsp 6 1 /2 tabs 60-64 560 mg 3 1/2 tsp 7 tabs 65-70 600 mg 3 3/4 tsp 7 1 /2 tabs 71-76 640 mg 4 tsp 8 tabs 77-82 720 mg 4 1/2 tsp 9 tabs 83-88 800 mg 5 tsp 10 tabs >89 pounds or adults 650 mg to 900 mg Acetaminophen can be repeated every four hours. Maximum daily dose not to exceed 4000 mg. These maximum recommended dosages are slightly higher than the dosages written on the product container, but these dosages are very safe and well below the toxic dosage for acetaminophen. FOLLOW-UP CARE: If you have been referred to a physician for follow-up care, call the physician s office for an appointment as you were instructed or within the next two days. If you experience worsening or a significant change in your symptoms, notify the physician immediately or return to the Emergency Department at any time for re-evaluation. Follow-up with orthopedics and your primary care doctor as instructed. Forms: Elevated Blood Pressure Referrals: COSMO GUILLEN MD [Primary Care Provider] - Follow up as needed
[2018-02-02 12:22] VITALS: BP 133/54
== END 2018-02-02 12:19 | disposition home or self-care (01) ==
LOC: ER 10:56
DX: S01.112D Laceration without foreign body of left eyelid and periocular area, subsequent encounter (principal); X58.XXXD Exposure to other specified factors, subsequent encounter

== ENCOUNTER 2018-03-02 16:39 | Inpatient (IN) | payer MEDICARE ==
--- NOTE | 2018-03-02 17:09 | ER Document Report ---
ED Medical Screen (RME) - General Chief Complaint: Leg Swelling Stated Complaint: LEG SWELLING Time Seen by Provider: 03/02/18 17:08 Notes: 67-year-old male history of COPD, CHF to the emergency department complaining of shortness of breath and lower extremity edema. Smokes 1 pack cigarettes a day. 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 A comprehensive ED assessment and evaluation of the patient, analysis of test results and completion of the medical decision making process will be conducted by additional ED providers. TRAVEL OUTSIDE OF THE [place] IN LAST 30 DAYS: No - Related Data Allergies/Adverse Reactions: No Known Allergies Allergy (Verified 01/20/17 12:59) Past Medical History - Past Medical History Cardiac Medical History: Reports: Hx Congestive Heart Failure, Hx Hypercholesterolemia, Hx Hypertension Denies: Hx Heart Attack Pulmonary Medical History: Reports: Hx COPD Denies: Hx Asthma - ? Neurological Medical History: Denies: Hx Cerebrovascular Accident, Hx Seizures Endocrine Medical History: Reports: Hx Diabetes Mellitus Type 2 Renal/ Medical History: Denies: Hx Peritoneal Dialysis Malignancy Medical History: Reports Hx Lymphoma GI Medical History: Denies: Hx Hepatitis, Hx Hiatal Hernia, Hx Ulcer Musculoskeltal Medical History: Reports Hx Arthritis, Reports Hx Musculoskeletal Deformity, Reports Hx Musculoskeletal Trauma Traumatic Medical History: Reports: Hx Fractures Infectious Medical History: Denies: Hx Hepatitis Past Surgical History: Reports: Hx Neurologic Surgery - Spinal tumor removed, Hx Testicular Surgery - James's gangrene. Denies: Hx Open Heart Surgery, Hx Pacemaker - Immunizations Hx Diphtheria, Pertussis, Tetanus Vaccination: Yes Physical Exam - Vital signs Vitals: Temp Pulse Resp BP Pulse Ox 98.9 F 84 26 H 126/44 H 96 03/02/18 16:54 03/02/18 16:54 03/02/18 16:54 03/02/18 16:54 03/02/18 16:54 Course - Vital Signs Vital signs: Temp Pulse Resp BP Pulse Ox 98.9 F 84 26 H 126/44 H 96 03/02/18 16:54 03/02/18 16:54 03/02/18 16:54 03/02/18 16:54 03/02/18 16:54 - Laboratory Result Diagrams: 03/02/18 18:56 01/15/19 18:56 Laboratory results interpreted by me: 03/02/18 03/02/18 03/02/18 18:56 18:56 18:56 Hgb 11.5 L Hct 37.0 L MCH 26.0 L MCHC 31.0 L RDW 18.2 H Seg Neutrophils % 84.7 H Lymphocytes % 5.5 L Carbon Dioxide 37 H BUN 30 H Glucose 174 H Direct Bilirubin 0.5 H Alkaline Phosphatase 135 H Urine Protein 100 H Urine Blood MODERATE H Urine Urobilinogen 4.0 H Ur Leukocyte Esterase LARGE H Doctor's Discharge - Discharge Referrals: COSMO GUILLEN MD [Primary Care Provider] - Follow up as needed
--- NOTE | 2018-03-02 17:36 | RADIOLOGY REPORT (SQ) ---
EXAM DESCRIPTION: CHEST SINGLE VIEW COMPLETED DATE/TIME: 03/02/2018 5:24 pm REASON FOR STUDY: sob COMPARISON: 01/26/2018. NUMBER OF VIEWS: One view. TECHNIQUE: Single frontal radiographic view of the chest acquired. LIMITATIONS: None. FINDINGS: LUNGS AND PLEURA: No opacities, masses or pneumothorax. No pleural effusion. MEDIASTINUM AND HILAR STRUCTURES: No masses. Contour normal. HEART AND VASCULAR STRUCTURES: Heart enlarged without failure. Normal vasculature. BONES: No acute findings. HARDWARE: Vascular port. OTHER: No other significant finding. IMPRESSION: HEART ENLARGED WITHOUT FAILURE. NO OTHER SIGNIFICANT RADIOGRAPHIC FINDING IN THE CHEST. TECHNICAL DOCUMENTATION: JOB ID: [id number] [employer]- All Rights Reserved Reading location - IP/workstation name: [email or web address]
[2018-03-02 19:14] LABS: ABSOLUTE BASOPHILS # (AUTO) 0.1 10^3/uL (0.0-0.2); ABSOLUTE EOSINOPHILS # (AUTO) 0.1 10^3/uL (0.0-0.6); ABSOLUTE LYMPHOCYTES (AUTO) 0.5 10^3/uL (0.5-4.7); ABSOLUTE MONOCYTES (AUTO) 0.8 10^3/uL (0.1-1.4); ABSOLUTE NEUT (AUTO) 7.7 10^3/uL (1.7-8.2); BASOPHILS % (AUTO) 0.6 % (0-2); HEMOGLOBIN 11.5 g/dL (13.5-17.0); LYMPHOCYTES % (AUTO) 5.5 % (13-45); MEAN CORPUSCULAR VOLUME 84 fl (80-97); MONOCYTES % (AUTO) 8.2 % (3-13); PLATELET COUNT 201 10^3/uL (150-450); RED BLOOD COUNT 4.42 10^6/uL (4.35-5.55); RED CELL DISTRIBUTION WIDTH 18.2 % (11.5-14.0); SEGMENTED NEUTROPHILS % (AUTO) 84.7 % (42-78); TOTAL CELLS COUNTED % (AUTO) 100 %; WHITE BLOOD COUNT 9.1 10^3/uL (4.0-10.5)
[2018-03-02 19:20] LABS: APPEARANCE,URINE CLOUDY; BILIRUBIN,URINE NEGATIVE (NEGATIVE); COLOR,URINE AMBER; GLUCOSE, URINE NEGATIVE (NEGATIVE); KETONES,URINE NEGATIVE (NEGATIVE); LEUKOCYTE ESTERASE,URINE LARGE (NEGATIVE); NITRITE,URINE NEGATIVE (NEGATIVE); PROTEIN,URINE 100 mg/dL (NEGATIVE); URINE SPECIFIC GRAVITY 1.019
[2018-03-02] MEDS ORDERED: CEFTRIAXONE INJ 1000 MG VIAL IV ONE (19:22)
--- NOTE | 2018-03-02 19:26 | EKG REPORT ---
SEVERITY:- ABNORMAL ECG - SINUS RHYTHM ATRIAL PREMATURE COMPLEX RIGHT BUNDLE BRANCH BLOCK INFERIOR INFARCT, POSSIBLY ACUTE PROBABLE ANTEROSEPTAL INFARCT, OLD : Confirmed by: Harjinder Pierce 02-Mar-2018 19:25:50
[2018-03-02 19:39] LABS: ALANINE AMINOTRANSFERASE 24 U/L (21-72); ALBUMIN 3.9 g/dL (3.5-5.0); ALKALINE PHOSPHATASE 135 U/L (38-126); ANION GAP 6 (5-19); ASPARTATE AMINO TRANSFERASE 17 U/L (17-59); BILIRUBIN,DIRECT 0.5 mg/dL (0.0-0.4); BILIRUBIN,TOTAL 0.9 mg/dL (0.2-1.3); BLOOD UREA NITROGEN 30 mg/dL (7-20); CALCIUM 8.5 mg/dL (8.4-10.2); CARBON DIOXIDE 37 mmol/L (22-30); CHLORIDE 99 mmol/L (98-107); GLUCOSE 174 mg/dL (75-110); TOTAL PROTEIN 6.4 g/dL (6.3-8.2)
[2018-03-02 19:46] LABS: TROPONIN I 0.029 ng/mL
[2018-03-02] MEDS ORDERED: ONDANSETRON HCL INJ/PF 4 MG/2 ML SDV IV ONE (20:18)
[2018-03-02] MEDS ORDERED: MORPHINE SULFATE 10 MG/ML INJ IV ONE (20:18)
[2018-03-02] MEDS ORDERED: FUROSEMIDE INJ/PF 20 MG/2 ML SDV IV ONE (21:23)
--- NOTE | 2018-03-02 21:42 | ER Document Report ---
ED General - General Chief Complaint: Leg Swelling Stated Complaint: LEG SWELLING Time Seen by Provider: 03/02/18 17:08 Notes: Patient is a 67-year-old male with CHF, COPD that presents to the emergency department for chief complaint of leg swelling, and weight gain. 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 He did have a fall about 6 weeks ago that resulted in a left humerus fracture. Patient denies having any significant shortness of breath or worsening from his baseline, he does wear 4 L of oxygen chronically at home, but does state he does feel short of breath slightly worse than usual. He denies having any chest pain, nausea, vomiting, abdominal pain, dysuria or hematuria. Past Medical History: CHF, diabetes mellitus, COPD Past Surgical History: History of James's gangrene, radical dissection of the peritoneum Social History: Former smoker, denies alcohol or drug use. Family History: Reviewed and noncontributory for presenting illness Allergies: Reviewed, see documented allergy list. REVIEW OF SYSTEMS: Other than noted above, the 12 point review of systems was reviewed with the patient and were negative, all pertinent findings are included in the HPI. PHYSICAL EXAMINATION: Vital signs reviewed, nursing noted reviewed. GENERAL: Morbidly obese male, in no acute distress HEAD: Atraumatic, normocephalic. EYES: Eyes appear normal, extraocular movements intact, sclera anicteric, conjunctiva are normal. ENT: nares patent, oropharynx clear without exudates. Moist mucous membranes. NECK: Normal range of motion, supple without lymphadenopathy LUNGS: Breath sounds clear to auscultation bilaterally and equal, only mildly diminished at the bases, no crackles. HEART: Regular rate and rhythm without murmurs ABDOMEN: Soft, nontender, normoactive bowel sounds. No rebound, guarding, or rigidity. No masses appreciated. EXTREMITIES: Bilateral lower extremity 3+ pitting edema, to the proximal tibias, lower extremity have good range of motion and are nontender, neurovascular intact distally, patient was wearing a left sling, due to a recent fracture, he has good pulses distally bilaterally in the upper extremities, and sensation and motor intact distally. NEUROLOGICAL: No focal neurological deficits. Moves all extremities spontaneously Motor and sensory grossly intact on exam. PSYCH: Normal mood, normal affect. SKIN: Warm, Dry, normal turgor, no rashes or lesions noted on exposed skin TRAVEL OUTSIDE OF THE [place] IN LAST 30 DAYS: No - Related Data Allergies/Adverse Reactions: No Known Allergies Allergy (Verified 01/20/17 12:59) Past Medical History - Social History Smoking Status: Current Every Day Smoker Chew tobacco use (# tins/day): No Frequency of alcohol use: None Drug Abuse: None Family History: Reviewed & Not Pertinent Patient has suicidal ideation: No Patient has homicidal ideation: No - Past Medical History Cardiac Medical History: Reports: Hx Congestive Heart Failure, Hx Hypercholesterolemia, Hx Hypertension Denies: Hx Heart Attack Pulmonary Medical History: Reports: Hx COPD Denies: Hx Asthma - ? Neurological Medical History: Denies: Hx Cerebrovascular Accident, Hx Seizures Endocrine Medical History: Reports: Hx Diabetes Mellitus Type 2 Renal/ Medical History: Denies: Hx Peritoneal Dialysis Malignancy Medical History: Reports Hx Lymphoma GI Medical History: Denies: Hx Hepatitis, Hx Hiatal Hernia, Hx Ulcer Musculoskeletal Medical History: Reports Hx Arthritis, Reports Hx Musculoskeletal Deformity, Reports Hx Musculoskeletal Trauma Traumatic Medical History: Reports: Hx Fractures Infectious Medical History: Denies: Hx Hepatitis Past Surgical History: Reports: Hx Neurologic Surgery - Spinal tumor removed, Hx Testicular Surgery - James's gangrene. Denies: Hx Open Heart Surgery, Hx Pacemaker - Immunizations Hx Diphtheria, Pertussis, Tetanus Vaccination: Yes Physical Exam - Vital signs Vitals: Temp Pulse Resp BP Pulse Ox 98.9 F 84 26 H 126/44 H 96 03/02/18 16:54 03/02/18 16:54 03/02/18 16:54 03/02/18 16:54 03/02/18 16:54 Course - Re-evaluation Re-evalutation: Patient seen and examined vital signs reviewed. Laboratory data and imaging were ordered as appropriate for the patient's presenting symptoms and complaint, with consideration of any critical or life threatening conditions that may be associated with their obtained history and exam as noted above. Patient was treated with IV Lasix, he was having some pain, was given IV morphine and Zofran for this. Results were reviewed when available and demonstrated elevated BNP, chest x-ray did not show any overt pulmonary edema, but the patient subjectively did feel more short of breath, he was on his home oxygen maintaining a good pulse ox, his peripheral edema was significant, he did not have any significant renal d ysfunction, was given IV Lasix for this, his troponin was slightly elevated, repeat, was only borderline elevated from the initial, likely as a result of the patient's heart failure, but more elevated than in the past. Patient was not having any active chest pain and his EKG was unchanged. His UA was positive for evidence of urinary tract infection, Arzate catheter was placed as the patient was having incontinence, which is not abnormal for him, he had radical dissection of the perineum in the past, he was given the first dose of IV Rocephin in the ED, 1 g. The patient was re-evaluated and was stable, but I do feel the patient needs to be admitted to the hospital, secondary to his exacerbation of heart failure, abnormal troponins. Evaluation was most consistent with acute exacerbation of CHF, most likely right-sided heart failure in this case, normal troponins, and significant peripheral edema as well as a urinary tract infection. Results were discussed with the patient at this point after careful consideration I feel that that patient should be admitted to the hospital. This was discussed with the patient that it is in the best interest for their care to be admitted for further evaluation and management. Patient agreed with this plan of care. A call was placed to the admitted physician, [] who graciously accepted the patient onto their service. *Note is created using voice recognition software and may contain spelling, syntax or grammatical errors. Laboratory 03/02/18 03/02/18 03/02/18 18:56 18:56 18:56 WBC 9.1 RBC 4.42 Hgb 11.5 L Hct 37.0 L MCV 84 MCH 26.0 L MCHC 31.0 L RDW 18.2 H Plt Count 201 Seg Neutrophils % 84.7 H Lymphocytes % 5.5 L Monocytes % 8.2 Eosinophils % 1.0 Basophils % 0.6 Absolute Neutrophils 7.7 Absolute Lymphocytes 0.5 Absolute Monocytes 0.8 Absolute Eosinophils 0.1 Absolute Basophils 0.1 Sodium 142.0 Potassium 4.0 Chloride 99 Carbon Dioxide 37 H Anion Gap 6 BUN 30 H Creatinine 0.94 Est GFR ( Amer) > 60 Est GFR (Non-Af Amer) > 60 Glucose 174 H Calcium 8.5 Total Bilirubin 0.9 Direct Bilirubin 0.5 H Neonat Total Bilirubin Not Reportable Neonat Direct Bilirubin Not Reportable Neonat Indirect Bili Not Reportable AST 17 ALT 24 Alkaline Phosphatase 135 H Troponin I 0.029 NT-Pro-B Natriuret Pep 3470 H Total Protein 6.4 Albumin 3.9 Urine Color Urine Appearance Urine pH Ur Specific [place] Urine Protein Urine Glucose (UA) Urine Ketones Urine Blood Urine Nitrite Urine Bilirubin Urine Urobilinogen Ur Leukocyte Esterase Urine WBC (Auto) Urine RBC (Auto) U Hyaline Cast (Auto) Urine Bacteria (Auto) Urine WBC Clumps Squamous Epi Cells Auto U Non-Squamous Epis Auto Urine Ascorbic Acid 03/02/18 03/02/18 18:56 21:12 WBC RBC Hgb Hct MCV MCH MCHC RDW Plt Count Seg Neutrophils % Lymphocytes % Monocytes % Eosinophils % Basophils % Absolute Neutrophils Absolute Lymphocytes Absolute Monocytes Absolute Eosinophils Absolute Basophils Sodium Potassium Chloride Carbon Dioxide Anion Gap BUN Creatinine Est GFR ( Amer) Est GFR (Non-Af Amer) Glucose Calcium Total Bilirubin Direct Bilirubin Neonat Total Bilirubin Neonat Direct Bilirubin Neonat Indirect Bili AST ALT Alkaline Phosphatase Troponin I 0.034 NT-Pro-B Natriuret Pep Total Protein Albumin Urine Color ALY Urine Appearance CLOUDY Urine pH 5.0 Ur Specific [place] 1.019 Urine Protein 100 H Urine Glucose (UA) NEGATIVE Urine Ketones NEGATIVE Urine Blood MODERATE H Urine Nitrite NEGATIVE Urine Bilirubin NEGATIVE Urine Urobilinogen 4.0 H Ur Leukocyte Esterase LARGE H Urine WBC (Auto) >182 Urine RBC (Auto) 123 U Hyaline Cast (Auto) 2 Urine Bacteria (Auto) TRACE Urine WBC Clumps MANY Squamous Epi Cells Auto 1 U Non-Squamous Epis Auto 2 Urine Ascorbic Acid NEGATIVE Chest X-Ray 03/02/18 17:08 IMPRESSION: HEART ENLARGED WITHOUT FAILURE. NO OTHER SIGNIFICANT RADIOGRAPHIC FINDING IN THE CHEST. - Vital Signs Vital signs: Temp Pulse Resp BP Pulse Ox 98.9 F 84 26 H 126/44 H 96 03/02/18 16:54 03/02/18 16:54 03/02/18 16:54 03/02/18 16:54 03/02/18 16:54 - Laboratory Result Diagrams: 03/02/18 18:56 03/02/18 18:56 Laboratory results interpreted by me: 03/02/18 03/02/18 03/02/18 18:56 18:56 18:56 Hgb 11.5 L Hct 37.0 L MCH 26.0 L MCHC 31.0 L RDW 18.2 H Seg Neutrophils % 84.7 H Lymphocytes % 5.5 L Carbon Dioxide 37 H BUN 30 H Glucose 174 H Direct Bilirubin 0.5 H Alkaline Phosphatase 135 H NT-Pro-B Natriuret Pep 3470 H Urine Protein Urine Blood Urine Urobilinogen Ur Leukocyte Esterase 03/02/18 18:56 Hgb Hct MCH MCHC RDW Seg Neutrophils % Lymphocytes % Carbon Dioxide BUN Glucose Direct Bilirubin Alkaline Phosphatase NT-Pro-B Natriuret Pep Urine Protein 100 H Urine Blood MODERATE H Urine Urobilinogen 4.0 H Ur Leukocyte Esterase LARGE H - EKG Interpretation by Me Additional EKG results interpreted by me: EKG demonstrates sinus rhythm with a ventricular rate of 85 bpm, presence of right bundle branch block, left axis deviation, QTC prolonged at 509 ms, this is compared with prior EKG from 01/26/2018, without significant change. Discharge - Discharge Clinical Impression: Elevated troponin, Peripheral edema Acute exacerbation of CHF (congestive heart failure) Qualifiers: Heart failure type: unspecified Qualified Code(s): I50.9 - Heart failure, unspecified UTI (urinary tract infection) Qualifiers: Urinary tract infection type: site unspecified Hematuria presence: with hematuria Qualified Code(s): N39.0 - Urinary tract infection, site not s pecified; R31.9 - Hematuria, unspecified Condition: Stable Disposition: ADMITTED INPATIENT Admitting Provider: Hospitalist - DR. CARO Unit Admitted: Telemetry
[2018-03-02] MEDS ORDERED: MAG HYDROX/AL HYDROX/SIMETH SUSP 30 ML UDCUP PO PRN (22:10)
[2018-03-02] MEDS ORDERED: MAGNESIUM HYDROXIDE SUSP 30 ML UDCUP PO PRN (22:10)
[2018-03-02] MEDS ORDERED: DEXTROSE 50%-WATER 25 GM/50 ML DISP.SYRIN IV PRN ×2 (22:13)
[2018-03-02] MEDS ORDERED: INSULIN LISPRO 100 UNIT/ML 3 ML VIAL SUBCUT PRN (22:13)
[2018-03-02] MEDS ORDERED: GLUCAGON,HUMAN RECOMB 1 MG INJ IM PRN (22:13)
[2018-03-02] MEDS ORDERED: DEXTROSE 40% GEL 15 GM TUBE PO PRN ×2 (22:13)
[2018-03-02] MEDS ORDERED: FUROSEMIDE INJ/PF 40 MG/4 ML SDV IV ONE (22:40)
[2018-03-02] MEDS ORDERED: POTASSIUM CHLORIDE 10 MEQ CAPSULE.ER PO ONE (22:45)
[2018-03-02 23:31] LABS: CREATINE KINASE MB 0.92 ng/mL (<4.55)
[2018-03-02 23:39] LABS: TROPONIN I 0.036 ng/mL
[2018-03-03] MEDS ORDERED: KETOROLAC TROMETHAMINE INJ/PF 30 MG/1 ML SDV IV ONE (01:23)
--- NOTE | 2018-03-03 05:11 | PDOC H&P ---
History of Present Illness Admission Date/PCP: 03/02/18 22:27 COSMO GUILLEN MD Patient complains of: Leg swelling History of Present Illness: THEODORE SON is a 67 year old male with a past medical history of congestive heart failure, oxygen dependent COPD with ongoing tobacco smoking, obstructive sleep apnea, morbid obesity, opiate dependent chronic pain and insulin dependent diabetes. Patient was seen by his agriscience teacher Dr. Berry earlier in the day and found to have concerning weight gain with leg swelling. He is referred to the emergency department for evaluation where he is found to have +2 edema in the lower extremity bilaterally, orthopnea and a BNP of 3470. He receives IV Lasix and referred to the hospitalist for admission. Patient denies recent change in medications, diet indiscretion, palpitations or chest pain. He admits to CPAP compliance but continued tobacco smoking. Past Medical History Cardiac Medical History: Reports: Congestive Heart Failure, Hyperlipidema, Hypertension Denies: Myocardial Infarction Pulmonary Medical History: Reports: Chronic Obstructive Pulmonary Disease (COPD) Denies: Asthma - ? Neurological Medical History: Denies: Seizures Endocrine Medical History: Reports: Diabetes Mellitus Type 2 Malignancy Medical History: Reports: Lymphoma GI Medical History: Denies: Hepatitis, Hiatal Hernia Musculoskeltal Medical History: Reports: Arthritis Hematology: Denies: Anemia, Sickle Cell Disease Past Surgical History Past Surgical History: Denies: Pacemaker Social History Information Source: Patient, Relative Smoking Status: Current Every Day Smoker Cigarettes Packs Per Day: 4 Last Time Smoked: 03/02/18 Frequency of Alcohol Use: None Drugs: None - Advance Directive Resuscitation Status: Full Code Family History Family History: COPD, DM Parental Family History Reviewed: Yes Children Family History Reviewed: Yes Sibling(s) Family History Reviewed.: Yes Medication/Allergy Home Medications: Simvastatin [Zocor 10 mg Tablet] 20 mg PO QHS 05/15/16 Albuterol Sulfate [Proventil Hfa] 2 puff IH Q4H PRN 03/03/18 Aspirin [Ecotrin 81 mg EC Tablet] 81 mg PO DAILY 03/03/18 Carvedilol [Coreg 6.25 mg Tablet] 6.25 mg PO BID 03/03/18 Furosemide [Lasix 80 mg Tablet] 80 mg PO BID 03/03/18 Gabapentin 600 mg PO QID 03/03/18 Insulin Glargine,Hum.rec.anlog [Lantus Insulin 100 Unit/mL] 80 units SQ QAM 03/03/18 Oxycodone HCl [Oxycontin] 15 mg PO TID 03/03/18 Allergies/Adverse Reactions: No Known Allergies Allergy (Verified 01/20/17 12:59) Review of Systems Constitutional: PRESENT: as per HPI, fatigue, weight gain. ABSENT: fever(s), headache(s), night sweats Eyes: ABSENT: visual disturbances Ears: ABSENT: hearing changes Cardiovascular: PRESENT: as per HPI, dyspnea on exertion, edema, orthropnea. ABSENT: chest pain, palpitations Respiratory: PRESENT: cough. ABSENT: hemoptysis, sputum Gastrointestinal: ABSENT: abdominal pain, constipation, diarrhea, hematemesis, hematochezia, nausea, vomiting Genitourinary: ABSENT: dysuria, hematuria Integumentary: ABSENT: rash, wounds Neurological: ABSENT: abnormal gait, abnormal speech, confusion, dizziness, focal weakness, syncope Psychiatric: ABSENT: anxiety, depression, homidical ideation, suicidal ideation Endocrine: ABSENT: cold intolerance, heat intolerance, polydipsia, polyuria Hematologic/Lymphatic: ABSENT: easy bleeding, easy bruising Physical Exam Vital Signs: Temp Pulse Resp BP Pulse Ox 98.9 F 81 19 124/52 L 92 03/03/18 02:32 03/03/18 02:32 03/03/18 04:25 03/03/18 02:32 03/03/18 02:32 Intake & Output 03/01/18 03/02/18 03/03/18 11:59 11:59 11:59 Output Total 460 Balance -460 Weight 136.8 kg General appearance: PRESENT: cooperative, disheveled, mild distress, morbidly obese Head exam: PRESENT: atraumatic, normocephalic Eye exam: PRESENT: conjunctiva pink, EOMI, PERRLA. ABSENT: scleral icterus Ear exam: PRESENT: normal external ear exam Mouth exam: PRESENT: moist, tongue midline Neck exam: PRESENT: JVD. ABSENT: carotid bruit, lymphadenopathy, thyromegaly Respiratory exam: PRESENT: crackles, prolonged expiratory phas, symmetrical, tachypnea. ABSENT: rales, rhonchi, wheezes Cardiovascular exam: PRESENT: RRR. ABSENT: diastolic murmur, rubs, systolic murmur Pulses: PRESENT: normal dorsalis pedis pul Vascular exam: PRESENT: normal capillary refill GI/Abdominal exam: PRESENT: normal bowel sounds, soft. ABSENT: distended, guarding, mass, organolmegaly, rebound, tenderness Rectal exam: PRESENT: deferred Extremities exam: PRESENT: full ROM, pedal edema, +2 edema. ABSENT: calf tenderness, clubbing Neurological exam: PRESENT: alert, awake, oriented to person, oriented to place, oriented to time, oriented to situation, CN II-XII grossly intact. ABSENT: motor sensory deficit Psychiatric exam: PRESENT: appropriate affect, normal mood. ABSENT: homicidal ideation, suicidal ideation Skin exam: PRESENT: dry, intact, warm. ABSENT: cyanosis, rash Results Laboratory Results: 03/02/18 18:56 03/02/18 18:56 03/02/18 03/02/18 03/02/18 18:22 18:56 18:56 WBC 9.1 RBC 4.42 Hgb 11.5 L Hct 37.0 L MCV 84 MCH 26.0 L MCHC 31.0 L RDW 18.2 H Plt Count 201 Seg Neutrophils % 84.7 H Lymphocytes % 5.5 L Monocytes % 8.2 Eosinophils % 1.0 Basophils % 0.6 Absolute Neutrophils 7.7 Absolute Lymphocytes 0.5 Absolute Monocytes 0.8 Absolute Eosinophils 0.1 Absolute Basophils 0.1 Sodium 142.0 Potassium 4.0 Chloride 99 Carbon Dioxide 37 H Anion Gap 6 BUN 30 H Creatinine 0.94 Est GFR ( Amer) > 60 Est GFR (Non-Af Amer) > 60 Glucose 174 H Calcium 8.5 Total Bilirubin 0.9 AST 17 ALT 24 Alkaline Phosphatase 135 H Total Protein 6.4 Albumin 3.9 TSH 1.03 Urine Color Urine Appearance Urine pH Ur Specific [place] Urine Protein Urine Glucose (UA) Urine Ketones Urine Blood Urine Nitrite Ur Leukocyte Esterase Urine WBC (Auto) Urine RBC (Auto) 03/02/18 18:56 WBC RBC Hgb Hct MCV MCH MCHC RDW Plt Count Seg Neutrophils % Lymphocytes % Monocytes % Eosinophils % Basophils % Absolute Neutrophils Absolute Lymphocytes Absolute Monocytes Absolute Eosinophils Absolute Basophils Sodium Potassium Chloride Carbon Dioxide Anion Gap BUN Creatinine Est GFR ( Amer) Est GFR (Non-Af Amer) Glucose Calcium Total Bilirubin AST ALT Alkaline Phosphatase Total Protein Albumin TSH Urine Color ALY Urine Appearance CLOUDY Urine pH 5.0 Ur Specific [place] 1.019 Urine Protein 100 H Urine Glucose (UA) NEGATIVE Urine Ketones NEGATIVE Urine Blood MODERATE H Urine Nitrite NEGATIVE Ur Leukocyte Esterase LARGE H Urine WBC (Auto) >182 Urine RBC (Auto) 123 03/02/18 03/02/18 03/02/18 18:56 21:12 22:37 Creatine Kinase 30 L CK-MB (CK-2) Troponin I 0.029 0.034 NT-Pro-B Natriuret Pep 3470 H 03/02/18 22:37 Creatine Kinase CK-MB (CK-2) 0.92 Troponin I 0.036 NT-Pro-B Natriuret Pep Impressions: Chest X-Ray 03/02/18 17:08 IMPRESSION: HEART ENLARGED WITHOUT FAILURE. NO OTHER SIGNIFICANT RADIOGRAPHIC FINDING IN THE CHEST. Assessment & Plan - Diagnosis (1) Acute exacerbation of CHF (congestive heart failure) Qualifiers: Heart failure type: unspecified Qualified Code(s): I50.9 - Heart failure, unspecified Is this a current diagnosis for this admission?: Yes Plan: Likely multifactorial secondary to dietary indiscretion, tobacco and obstructive sleep apnea. IV Lasix initiated, education, follow-up chemistry and cardiac enzymes (2) Morbid obesity with alveolar hypoventilation Is this a current diagnosis for this admission?: Yes Plan: CPAP while asleep, limit and/or wean narcotics, discontinue pillow behind the head avoiding cervical flexion, education (3) UTI (urinary tract infection) Qualifiers: Urinary tract infection type: site unspecified Hematuria presence: with hematuria Qualified Code(s): N39.0 - Urinary tract infection, site not specified; R31.9 - Hematuria, unspecified Is this a current diagnosis for this admission?: Yes Plan: Rocephin initiated in the emergency room, follow-up urine culture (4) Tobacco abuse Is this a current diagnosis for this admission?: Yes Plan: Tobacco Dependence patient received tobacco cessation counseling and offered nicotine replacement options (5) Chronic pain Is this a current diagnosis for this admission?: Yes Plan: Verify prescription prior to initiation of full dose requested given high risk of decompensation with morbid obesity hypoventilation. - Time Time Spent: 50 to 70 Minutes - Inpatient Certification Medical Necessity: Need Close Monitoring Due to Risk of Patient Decompensation
[2018-03-03] MEDS: HEPARIN SOD (PORCINE) 5,000 UNIT/ML 1 ML SYRINGE SUBCUT SCH ×3 (05:21→21:21)
[2018-03-03 05:33] LABS: ABSOLUTE EOSINOPHILS # (AUTO) 0.1 10^3/uL (0.0-0.6); ABSOLUTE LYMPHOCYTES (AUTO) 0.5 10^3/uL (0.5-4.7); ABSOLUTE MONOCYTES (AUTO) 0.8 10^3/uL (0.1-1.4); ABSOLUTE NEUT (AUTO) 5.8 10^3/uL (1.7-8.2); BASOPHILS % (AUTO) 0.6 % (0-2); EOSINOPHILS % (AUTO) 1.6 % (0-6); HEMOGLOBIN 10.3 g/dL (13.5-17.0); LYMPHOCYTES % (AUTO) 7.3 % (13-45); MEAN CORPUSCULAR HEMOGLOBIN 25.8 pg (27.0-33.4); MEAN CORPUSCULAR HGB CONC 31.2 g/dL (32.0-36.0); MEAN CORPUSCULAR VOLUME 83 fl (80-97); MONOCYTES % (AUTO) 10.6 % (3-13); PLATELET COUNT 173 10^3/uL (150-450); RED BLOOD COUNT 3.99 10^6/uL (4.35-5.55); SEGMENTED NEUTROPHILS % (AUTO) 79.9 % (42-78); TOTAL CELLS COUNTED % (AUTO) 100 %; WHITE BLOOD COUNT 7.3 10^3/uL (4.0-10.5)
[2018-03-03 05:48] LABS: ANION GAP 5 (5-19); BLOOD UREA NITROGEN 27 mg/dL (7-20); CALCIUM 8.1 mg/dL (8.4-10.2); CARBON DIOXIDE 36 mmol/L (22-30); CHLORIDE 101 mmol/L (98-107); CREATINE KINASE 25 U/L (55-170); GLUCOSE 166 mg/dL (75-110); POTASSIUM 4.3 mmol/L (3.6-5.0); SODIUM 142.1 mmol/L (137-145)
[2018-03-03 06:06] LABS: CREATINE KINASE MB 0.82 ng/mL (<4.55); TROPONIN I 0.034 ng/mL
[2018-03-03] MEDS: FUROSEMIDE INJ/PF 40 MG/4 ML SDV IV SCH ×2 (10:00→21:22)
[2018-03-03] MEDS: HUM INSULIN NPH/REG INSULIN HM 100 UNIT/1 ML 3 ML SUBCUT SCH ×2 (10:00→17:26)
[2018-03-03] MEDS ORDERED: CARVEDILOL 6.25 MG TABLET PO SCH ×2 (10:00→18:00)
[2018-03-03] MEDS ORDERED: GABAPENTIN 300 MG CAPSULE PO SCH (10:00)
[2018-03-03] MEDS ORDERED: CEFTRIAXONE INJ 1000 MG VIAL IV SCH (10:00)
[2018-03-03] MEDS: GABAPENTIN 300 MG CAPSULE PO SCH ×3 (10:01→20:07)
[2018-03-03] MEDS: NITROGLYCERIN 5 MG (0.2 MG/HR) PATCH.TD24 TD SCH (10:02)
[2018-03-03] MEDS: OXYCODONE HCL SR 10 MG TABLET PO SCH ×2 (10:03→21:20)
[2018-03-03] MEDS: ASPIRIN 81 MG TABLET, ENT COATED PO SCH (10:03)
[2018-03-03] MEDS: POTASSIUM CHLORIDE 10 MEQ CAPSULE.ER PO SCH ×2 (10:04→21:21)
[2018-03-03] MEDS: CARVEDILOL 6.25 MG TABLET PO SCH ×2 (10:05→21:21)
[2018-03-03] MEDS ORDERED: ALBUTEROL SULFATE HFA (90 MCG/PUFF) 200 PUFF/8.5 GM MDI IH PRN (10:12)
--- NOTE | 2018-03-03 10:22 | PDOC PROGRESS REPORT ---
Subjective Progress Note for:: 03/03/18 Subjective:: 67 year old male with a past medical history of congestive heart failure, oxygen dependent COPD with ongoing tobacco smoking, obstructive sleep apnea, morbid obesity, opiate dependent chronic pain and insulin dependent diabetes. Patient was seen by his lead pharmacy technician Dr. Berry earlier in the day and found to have concerning weight gain with leg swelling. He is referred to the emergency department for evaluation where he is found to have +2 edema in the lower extremity bilaterally, orthopnea and a BNP of 3470. He receives IV Lasix and referred to the hospitalist for admission. Patient denies recent change in medications, diet indiscretion, palpitations or chest pain. He admits to CPAP compliance but continued tobacco smoking. 03/03/2018-no acute events in the last 24 hours. Patient is afebrile. Patient is admitted with CHF exacerbation and was placed on IV Lasix. I requested for cardiology consult and echocardiogram. Admission BNP is 3470 and I am going to repeat the BNP tomorrow. His lower leg swelling is improving. Creatinine is slightly elevated 0.034 may be secondary to congestive heart failure. Reason For Visit: UTI HEART FAILURE Physical Exam Vital Signs: Temp Pulse Resp BP Pulse Ox 98.8 F 72 16 142/90 H 99 03/03/18 07:16 03/03/18 07:16 03/03/18 07:16 03/03/18 07:16 03/03/18 07:16 Intake & Output 03/02/18 03/03/18 03/04/18 06:59 06:59 06:59 Output Total 685 Balance -685 Weight 141.2 kg General appearance: PRESENT: mild distress Head exam: PRESENT: atraumatic Eye exam: PRESENT: PERRLA Mouth exam: PRESENT: dry mucosa Teeth exam: PRESENT: dental tenderness Neck exam: PRESENT: JVD Respiratory exam: PRESENT: crackles, decreased breath sounds Cardiovascular exam: PRESENT: RRR. ABSENT: diastolic murmur, rubs, systolic murmur GI/Abdominal exam: PRESENT: normal bowel sounds, soft. ABSENT: distended, guarding, mass, organolmegaly, rebound, tenderness Extremities exam: PRESENT: +2 edema Psychiatric exam: PRESENT: appropriate affect, normal mood. ABSENT: homicidal ideation, suicidal ideation Results Laboratory Results: 03/03/18 04:24 03/03/18 04:24 03/02/18 03/02/18 03/02/18 18:22 18:56 18:56 WBC 9.1 RBC 4.42 Hgb 11.5 L Hct 37.0 L MCV 84 MCH 26.0 L MCHC 31.0 L RDW 18.2 H Plt Count 201 Seg Neutrophils % 84.7 H Lymphocytes % 5.5 L Monocytes % 8.2 Eosinophils % 1.0 Basophils % 0.6 Absolute Neutrophils 7.7 Absolute Lymphocytes 0.5 Absolute Monocytes 0.8 Absolute Eosinophils 0.1 Absolute Basophils 0.1 Sodium 142.0 Potassium 4.0 Chloride 99 Carbon Dioxide 37 H Anion Gap 6 BUN 30 H Creatinine 0.94 Est GFR ( Amer) > 60 Est GFR (Non-Af Amer) > 60 Glucose 174 H Calcium 8.5 Total Bilirubin 0.9 AST 17 ALT 24 Alkaline Phosphatase 135 H Total Protein 6.4 Albumin 3.9 TSH 1.03 Urine Color Urine Appearance Urine pH Ur Specific [place] Urine Protein Urine Glucose (UA) Urine Ketones Urine Blood Urine Nitrite Ur Leukocyte Esterase Urine WBC (Auto) Urine RBC (Auto) 03/02/18 03/03/18 03/03/18 18:56 04:24 04:24 WBC 7.3 RBC 3.99 L Hgb 10.3 L Hct 33.0 L MCV 83 MCH 25.8 L MCHC 31.2 L RDW 18.0 H Plt Count 173 Seg Neutrophils % 79.9 H Lymphocytes % 7.3 L Monocytes % 10.6 Eosinophils % 1.6 Basophils % 0.6 Absolute Neutrophils 5.8 Absolute Lymphocytes 0.5 Absolute Monocytes 0.8 Absolute Eosinophils 0.1 Absolute Basophils 0.0 Sodium 142.1 Potassium 4.3 Chloride 101 Carbon Dioxide 36 H Anion Gap 5 BUN 27 H Creatinine 1.00 Est GFR ( Amer) > 60 Est GFR (Non-Af Amer) > 60 Glucose 166 H Calcium 8.1 L Total Bilirubin AST ALT Alkaline Phosphatase Total Protein Albumin TSH Urine Color ALY Urine Appearance CLOUDY Urine pH 5.0 Ur Specific [place] 1.019 Urine Protein 100 H Urine Glucose (UA) NEGATIVE Urine Ketones NEGATIVE Urine Blood MODERATE H Urine Nitrite NEGATIVE Ur Leukocyte Esterase LARGE H Urine WBC (Auto) >182 Urine RBC (Auto) 123 03/02/18 03/02/18 03/02/18 18:56 21:12 22:37 Creatine Kinase 30 L CK-MB (CK-2) Troponin I 0.029 0.034 NT-Pro-B Natriuret Pep 3470 H 03/02/18 03/03/18 03/03/18 22:37 04:24 04:24 Creatine Kinase 25 L CK-MB (CK-2) 0.92 0.82 Troponin I 0.036 0.034 NT-Pro-B Natriuret Pep Impressions: Chest X-Ray 03/02/18 17:08 IMPRESSION: HEART ENLARGED WITHOUT FAILURE. NO OTHER SIGNIFICANT RADIOGRAPHIC FINDING IN THE CHEST. Assessment & Plan - Diagnosis (1) Acute exacerbation of CHF (congestive heart failure) Qualifiers: Heart failure type: unspecified Qualified Code(s): I50.9 - Heart failure, u nspecified Is this a current diagnosis for this admission?: Yes Plan: 03/03/2018-patient came in with elevated BNP and bilateral pedal edema. Patient has history of congestive heart failure we do not have an echocardiogram report in the last 1 year. Requested for echocardiogram today. Plan is to continue his IV Lasix. daily weight was requested. (2) Morbid obesity with alveolar hypoventilation Is this a current diagnosis for this admission?: Yes Plan: 03/03/2018 patient's BMI is more than 50 and associated with obstructive sleep apnea. He uses CPAP at night. Plan is to continue the present management and also plan is to discontinue any insomnia medications. Dietary consult was requested diet exercise weight loss and lifestyle modifications were requested. (3) Elevated troponin Is this a current diagnosis for this admission?: Yes Plan: 03/03/2018 troponin levels are slightly elevated 0.034. Probably secondary to underlying congestive heart failure. As of note initial troponin is 0.029. pt denies any chest pains. (4) UTI (urinary tract infection) Qualifiers: Urinary tract infection type: site unspecified Hematuria presence: with hematuria Qualified Code(s): N39.0 - Urinary tract infection, site not specified; R31.9 - Hematuria, unspecified Is this a current diagnosis for this admission?: Yes Plan: 03/03/2018-urinalysis shows leukocyte esterase positive. Started on IV Rocephin 1 g daily in the ER plan is to continue the present management and a urine culture were requested. - Time Time Spent with patient: 15-24 minutes Smoking Cessation Education: over 10 minutes Anticipated discharge: Home
[2018-03-03 11:33] LABS: CREATINE KINASE MB 0.62 ng/mL (<4.55); TROPONIN I 0.018 ng/mL
[2018-03-03] MEDS: BUDESONIDE/FORMOTEROL 160-4.5 MCG 60 PUFF/6 GM MDI IH SCH ×2 (14:29→21:22)
[2018-03-03] MEDS: CEFTRIAXONE 1 GM/D5W RTU 1 GM/50 ML RTUPB IV SCH (14:29)
[2018-03-03] MEDS: ACETAMINOPHEN 325 MG TABLET PO PRN (17:30)
[2018-03-03] MEDS ORDERED: FUROSEMIDE 80 MG TABLET PO SCH (18:00)
[2018-03-03] MEDS: SIMVASTATIN 10 MG TABLET PO SCH (21:20)
[2018-03-04] MEDS: GABAPENTIN 300 MG CAPSULE PO SCH ×4 (02:09→21:23)
[2018-03-04] MEDS: HEPARIN SOD (PORCINE) 5,000 UNIT/ML 1 ML SYRINGE SUBCUT SCH ×3 (05:23→21:17)
[2018-03-04 06:06] LABS: ABSOLUTE EOSINOPHILS # (AUTO) 0.2 10^3/uL (0.0-0.6); ABSOLUTE LYMPHOCYTES (AUTO) 0.5 10^3/uL (0.5-4.7); ABSOLUTE MONOCYTES (AUTO) 0.6 10^3/uL (0.1-1.4); ABSOLUTE NEUT (AUTO) 3.3 10^3/uL (1.7-8.2); BASOPHILS % (AUTO) 0.5 % (0-2); HEMATOCRIT 39.2 % (37.9-51.0); HEMOGLOBIN 11.9 g/dL (13.5-17.0); LYMPHOCYTES % (AUTO) 11.2 % (13-45); MEAN CORPUSCULAR HEMOGLOBIN 25.3 pg (27.0-33.4); MEAN CORPUSCULAR HGB CONC 30.4 g/dL (32.0-36.0); MEAN CORPUSCULAR VOLUME 83 fl (80-97); MONOCYTES % (AUTO) 12.4 % (3-13); PLATELET COUNT 137 10^3/uL (150-450); RED CELL DISTRIBUTION WIDTH 18.1 % (11.5-14.0); SEGMENTED NEUTROPHILS % (AUTO) 71.9 % (42-78); TOTAL CELLS COUNTED % (AUTO) 100 %; WHITE BLOOD COUNT 4.6 10^3/uL (4.0-10.5)
[2018-03-04 06:31] LABS: ALANINE AMINOTRANSFERASE 22 U/L (21-72); ALBUMIN 3.2 g/dL (3.5-5.0); ALKALINE PHOSPHATASE 107 U/L (38-126); ASPARTATE AMINO TRANSFERASE 13 U/L (17-59); BILIRUBIN,DIRECT 0.5 mg/dL (0.0-0.4); BILIRUBIN,TOTAL 0.6 mg/dL (0.2-1.3); BLOOD UREA NITROGEN 27 mg/dL (7-20); CALCIUM 8.2 mg/dL (8.4-10.2); CHLORIDE 101 mmol/L (98-107); GLUCOSE 81 mg/dL (75-110); POTASSIUM 4.3 mmol/L (3.6-5.0); TOTAL PROTEIN 5.6 g/dL (6.3-8.2)
[2018-03-04 06:36] LABS: ANION GAP 5 (5-19); CARBON DIOXIDE 37 mmol/L (22-30); SODIUM 143.2 mmol/L (137-145)
[2018-03-04] MEDS: HUM INSULIN NPH/REG INSULIN HM 100 UNIT/1 ML 3 ML SUBCUT SCH (08:18)
[2018-03-04] MEDS: BUDESONIDE/FORMOTEROL 160-4.5 MCG 60 PUFF/6 GM MDI IH SCH ×2 (09:21→21:25)
[2018-03-04] MEDS: CARVEDILOL 6.25 MG TABLET PO SCH ×2 (09:22→21:22)
[2018-03-04] MEDS: NITROGLYCERIN 5 MG (0.2 MG/HR) PATCH.TD24 TD SCH (09:22)
[2018-03-04] MEDS: ASPIRIN 81 MG TABLET, ENT COATED PO SCH (09:22)
[2018-03-04] MEDS: OXYCODONE HCL SR 10 MG TABLET PO SCH ×2 (09:22→21:22)
[2018-03-04] MEDS: FUROSEMIDE INJ/PF 40 MG/4 ML SDV IV SCH ×2 (09:23→21:22)
[2018-03-04] MEDS ORDERED: (PENDING PHARMACY ID) (Tiotropium Bromide [Spiriva Respimat] 2 PUFF) IH SCH (10:00)
[2018-03-04] MEDS: CEFTRIAXONE 1 GM/D5W RTU 1 GM/50 ML RTUPB IV SCH (11:20)
--- NOTE | 2018-03-04 14:40 | PDOC PROGRESS REPORT ---
Subjective Progress Note for:: 03/04/18 Subjective:: 67 year old male with a past medical history of congestive heart failure, oxygen dependent COPD with ongoing tobacco smoking, obstructive sleep apnea, morbid obesity, opiate dependent chronic pain and insulin dependent diabetes. Patient was seen by his cloth winder machine operator Dr. Berry earlier in the day and found to have concerning weight gain with leg swelling. He is referred to the emergency department for evaluation where he is found to have +2 edema in the lower extremity bilaterally, orthopnea and a BNP of 3470. He receives IV Lasix and referred to the hospitalist for admission. Patient denies recent change in medications, diet indiscretion, palpitations or chest pain. He admits to CPAP compliance but continued tobacco smoking. 03/03/2018-no acute events in the last 24 hours. Patient is afebrile. Patient is admitted with CHF exacerbation and was placed on IV Lasix. I requested for cardiology consult and echocardiogram. Admission BNP is 3470 and I am going to repeat the BNP tomorrow. His lower leg swelling is improving. Creatinine is slightly elevated 0.034 may be secondary to congestive heart failure. 03/04/2018 no acute events in the last 24 hours. Patient is afebrile. Is not coming down with the bed at all. Even at home he states in the bed all the time. PT consult was requested. hardboard factory worker consult was requested for rehab. Patient pulse ox is dropping to 80s without BiPAP. Discussed the care plan with the family they agreed for him to go to acute rehab. Reason For Visit: CHF Physical Exam Vital Signs: Temp Pulse Resp BP Pulse Ox 98.1 F 66 19 134/64 H 100 03/04/18 11:28 03/04/18 11:28 03/04/18 11:28 03/04/18 11:28 03/04/18 11:28 Intake & Output 03/03/18 03/04/18 03/05/18 06:59 06:59 06:59 Intake Total 520 705 Output Total 685 4914 250 Balance -685 -980 455 Weight 141.2 kg 143.6 kg General appearance: PRESENT: other - Morbidly obese male comfortably in the bed. Head exam: PRESENT: atraumatic Eye exam: PRESENT: PERRLA Mouth exam: PRESENT: moist Neck exam: ABSENT: carotid bruit, JVD, lymphadenopathy, thyromegaly Respiratory exam: PRESENT: decreased breath sounds Cardiovascular exam: PRESENT: tachycardia GI/Abdominal exam: PRESENT: other - Obese abdomen soft nontender bowel sounds are present. Extremities exam: PRESENT: +1 edema Neurological exam: PRESENT: alert, awake, oriented to person, oriented to place, oriented to time, oriented to situation, CN II-XII grossly intact. ABSENT: motor sensory deficit Psychiatric exam: PRESENT: appropriate affect, normal mood. ABSENT: homicidal ideation, suicidal ideation Results Laboratory Results: 03/04/18 05:22 03/04/18 05:22 03/04/18 03/04/18 05:22 05:22 WBC 4.6 RBC 4.70 Hgb 11.9 L Hct 39.2 MCV 83 MCH 25.3 L MCHC 30.4 L RDW 18.1 H Plt Count 137 L Seg Neutrophils % 71.9 Lymphocytes % 11.2 L Monocytes % 12.4 Eosinophils % 4.0 Basophils % 0.5 Absolute Neutrophils 3.3 Absolute Lymphocytes 0.5 Absolute Monocytes 0.6 Absolute Eosinophils 0.2 Absolute Basophils 0.0 Sodium 143.2 Potassium 4.3 Chloride 101 Carbon Dioxide 37 H Anion Gap 5 BUN 27 H Creatinine 1.15 Est GFR ( Amer) > 60 Est GFR (Non-Af Amer) > 60 Glucose 81 Calcium 8.2 L Magnesium 1.9 Total Bilirubin 0.6 AST 13 L ALT 22 Alkaline Phosphatase 107 Total Protein 5.6 L Albumin 3.2 L 03/02/18 03/02/18 03/02/18 18:56 21:12 22:37 Creatine Kinase 30 L CK-MB (CK-2) Troponin I 0.029 0.034 NT-Pro-B Natriuret Pep 3470 H 03/02/18 03/03/18 03/03/18 22:37 04:24 04:24 Creatine Kinase 25 L CK-MB (CK-2) 0.92 0.82 Troponin I 0.036 0.034 NT-Pro-B Natriuret Pep 03/03/18 03/03/18 03/04/18 10:40 10:40 05:22 Creatine Kinase 24 L CK-MB (CK-2) 0.62 Troponin I 0.018 NT-Pro-B Natriuret Pep 3140 H Impressions: Chest X-Ray 03/02/18 17:08 IMPRESSION: HEART ENLARGED WITHOUT FAILURE. NO OTHER SIGNIFICANT RADIOGRAPHIC FINDING IN THE CHEST. Assessment & Plan - Diagnosis (1) Acute exacerbation of CHF (congestive heart failure) Qualifiers: Heart failure type: unspecified Qualified Code(s): I50.9 - Heart failure, unspecified Is this a current diagnosis for this admission?: Yes Plan: 03/03/2018-patient came in with elevated BNP and bilateral pedal edema. Patient has history of congestive heart failure we do not have an echocardiogram report in the last 1 year. Requested for echocardiogram today. Plan is to continue his IV Lasix. daily weight was requested. 03/04/2018 patient is on IV Lasix his BNP came down from 3400 to 3140. Still 1+ pedal edema present. Echocardiogram report is pending. Patient is on Lasix 40 mg IV twice a day. Patient put out a 1500 cc of urine and negative balance of 987 mL in the last 24 hours. To put him on fluid restriction at 1.2 L/day. Daily weight measurements are requested. (2) Morbid obesity with alveolar hypoventilation Is this a current diagnosis for this admission?: Yes Plan: 03/03/2018 patient's BMI is more than 50 and associated with obstructive sleep apnea. He uses CPAP at night. Plan is to continue the present management and also plan is to discontinue any insomnia medications. Dietary consult was requested diet exercise weight loss and lifestyle modifications were requested. 2017 patient has obstructive sleep apnea. He uses CPAP at night. He is a states in the bed all the time. Even at home he states in the bed. Physical therapy consult was requested he may benefit from going to acute rehab. Diet exercise weight loss again was stressed today. (3) Elevated troponin Is this a current diagnosis for this admission?: Yes Plan: 03/03/2018 troponin levels are slightly elevated 0.034. Probably secondary to underlying congestive heart failure. As of note initial troponin is 0.029. pt denies any chest pains. 2018 latest troponin is 0.018. Trending down. Elevated troponins probably secondary to underlying congestive heart failure. pt is asymptomatic. (4) UTI (urinary tract infection) Qualifiers: Urinary tract infection type: site unspecified Hematuria presence: with hematuria Qualified Code(s): N39.0 - Urinary tract infection, site not specified; R31.9 - Hematuria, unspecified Is this a current diagnosis for this admission?: Yes Plan: 03/03/2018-urinalysis shows leukocyte esterase positive. Started on IV Rocephin 1 g daily in the ER plan is to continue the present management and a urine culture were requested. 03/04/2017 patient has a UTI and IV Rocephin 1 g daily. Culture is negative so far. - Time Time Spent with patient: 15-24 minutes Medications reviewed and adjusted accordingly: Yes Anticipated discharge: Acute Rehab
[2018-03-04] MEDS: INSULIN LISPRO 100 UNIT/ML 3 ML VIAL SUBCUT PRN (21:20)
[2018-03-04] MEDS: SIMVASTATIN 10 MG TABLET PO SCH (21:23)
--- NOTE | 2018-03-04 23:47 | XCELERA REPORT ---
[address] [address] Transthoracic Echocardiogram Report Name: THEODORE SON Age: 67 yrs Gender: Male : 1950 Patient Status: Inpatient Patient Location: [address] [place] [address] Study Date: 03/03/2018 03:29 PM Procedure: A two-dimensional transthoracic echocardiogram with color flow and Doppler was performed. The study was technically difficult with many images being suboptimal in quality. Reason For Study: chf History: CHF. Ordering Physician: JOHN COLBY Performed By: Jody Forrest Interpretation Summary The left ventricle is mildly dilated. There is normal left ventricular wall thickness. Probably no regional wall motion abnormality and low normal LVEF of 55%. Doppler measurements suggest normal left ventricular diastolic function The left atrium is mildly dilated. There is no evidence of mitral valve prolapse. There is no vegetation seen on the mitral valve. There is no mitral valve stenosis. There is no mitral regurgitation noted. There is no aortic valvular vegetation. There is no aortic valve stenosis There is aortic sclerosis without aortic stenosis. There is no LVOT obstruction. No aortic regurgitation is present. There is no tricuspid stenosis. There is a mild amount of tricuspid regurgitation There is mild pulmonary hypertension by echo RVSP is 35 to 40 mm of Hg , with RA mean of 5 to 10. There is no pulmonic valvular stenosis. There is a trace amount of pulmonic regurgitation There is no pericardial effusion. MMode/2D Measurements & Calculations RVDd: 3.8 cm LVIDd: 6.7 cm FS: 21.9 % Ao root diam: 3.3 cm IVSd: 0.96 cm LVIDs: 5.2 cm EDV(Teich): 230.7 ml Ao root area: 8.6 cm2 LVPWd: 1.1 cm ESV(Teich): 131.1 ml EF(Teich): 43.2 % Doppler Measurements & Calculations MV E max evi: MV dec slope: Ao V2 max: LV V1 max P.7 cm/sec 177.9 cm/sec 2.1 mmHg MV A max evi: 587.2 cm/sec2 Ao max PG: LV V1 max: 65.6 cm/sec MV dec time: 0.18 sec 12.7 mmHg 72.4 cm/sec MV E/A: 1.6 PA V2 max: TR max evi: 107.2 cm/sec 275.3 cm/sec PA max P.6 mmHg TR max P.3 mmHg Left Ventricle The left ventricle is mildly dilated. There is normal left ventricular wall thickness. Probably no regional wall motion abnormality and low normal LVEF of 55%. Doppler measurements suggest normal left ventricular diastolic function. There is no thrombus. Right Ventricle The right ventricle is not well visualized secondary to technical limitations. Atria Right atrium not well visualized secondary to technical limitations. The left atrium is mildly dilated. Mitral Valve There is no evidence of mitral valve prolapse. There is no vegetation seen on the mitral valve. There is no mitral valve stenosis. There is no mitral regurgitation noted. Aortic Valve There is no aortic valvular vegetation. There is no aortic valve stenosis. There is aortic sclerosis without aortic stenosis. There is no LVOT obstruction. No aortic regurgitation is present. Tricuspid Valve There is no tricuspid stenosis. There is a mild amount of tricuspid regurgitation. There is mild pulmonary hypertension by echo. RVSP is 35 to 40 mm of Hg , with RA mean of 5 to 10. Pulmonic Valve There is no pulmonic valvular stenosis. There is a trace amount of pulmonic regurgitation. Great Vessels The aortic root is normal size. Effusions There is no pericardial effusion. : JOHN COLBY > Corina Moura
[2018-03-05] MEDS: GABAPENTIN 300 MG CAPSULE PO SCH ×4 (03:32→22:25)
[2018-03-05] MEDS: HEPARIN SOD (PORCINE) 5,000 UNIT/ML 1 ML SYRINGE SUBCUT SCH ×3 (05:08→22:20)
[2018-03-05 05:49] LABS: ABSOLUTE EOSINOPHILS # (AUTO) 0.2 10^3/uL (0.0-0.6); ABSOLUTE LYMPHOCYTES (AUTO) 0.6 10^3/uL (0.5-4.7); ABSOLUTE MONOCYTES (AUTO) 0.7 10^3/uL (0.1-1.4); ABSOLUTE NEUT (AUTO) 4.1 10^3/uL (1.7-8.2); BASOPHILS % (AUTO) 0.8 % (0-2); EOSINOPHILS % (AUTO) 4.1 % (0-6); HEMATOCRIT 32.4 % (37.9-51.0); HEMOGLOBIN 10.1 g/dL (13.5-17.0); LYMPHOCYTES % (AUTO) 10.7 % (13-45); MEAN CORPUSCULAR HEMOGLOBIN 25.5 pg (27.0-33.4); MEAN CORPUSCULAR HGB CONC 31.1 g/dL (32.0-36.0); MEAN CORPUSCULAR VOLUME 82 fl (80-97); MONOCYTES % (AUTO) 11.6 % (3-13); PLATELET COUNT 153 10^3/uL (150-450); RED BLOOD COUNT 3.95 10^6/uL (4.35-5.55); RED CELL DISTRIBUTION WIDTH 17.6 % (11.5-14.0); SEGMENTED NEUTROPHILS % (AUTO) 72.8 % (42-78); TOTAL CELLS COUNTED % (AUTO) 100 %; WHITE BLOOD COUNT 5.6 10^3/uL (4.0-10.5)
[2018-03-05 06:11] LABS: ALANINE AMINOTRANSFERASE 23 U/L (21-72); ALBUMIN 3.4 g/dL (3.5-5.0); ALKALINE PHOSPHATASE 113 U/L (38-126); ASPARTATE AMINO TRANSFERASE 13 U/L (17-59); BILIRUBIN,DIRECT 0.5 mg/dL (0.0-0.4); BILIRUBIN,TOTAL 0.7 mg/dL (0.2-1.3); BLOOD UREA NITROGEN 25 mg/dL (7-20); CALCIUM 8.4 mg/dL (8.4-10.2); CHLORIDE 97 mmol/L (98-107); GLUCOSE 122 mg/dL (75-110); POTASSIUM 4.2 mmol/L (3.6-5.0); SODIUM 140.5 mmol/L (137-145); TOTAL PROTEIN 5.8 g/dL (6.3-8.2)
[2018-03-05 07:11] LABS: ANION GAP 4 (5-19)
[2018-03-05 07:13] LABS: CARBON DIOXIDE 40 mmol/L (22-30)
[2018-03-05] MEDS ORDERED: INSULIN GLARGINE,HUM.REC.ANLOG 300 UNIT/3 ML INSULN.PEN SUBCUT SCH (08:00)
[2018-03-05] MEDS ORDERED: INSULIN GLARGINE,HUM.REC.ANLOG 1,000 UNIT/10 ML UNIT SUBCUT SCH (08:00)
[2018-03-05] MEDS: OXYCODONE HCL SR 10 MG TABLET PO SCH ×2 (10:34→22:25)
[2018-03-05] MEDS: ASPIRIN 81 MG TABLET, ENT COATED PO SCH (10:38)
[2018-03-05] MEDS: BUDESONIDE/FORMOTEROL 160-4.5 MCG 60 PUFF/6 GM MDI IH SCH ×2 (10:38→22:26)
[2018-03-05] MEDS: NITROGLYCERIN 5 MG (0.2 MG/HR) PATCH.TD24 TD SCH (10:43)
[2018-03-05] MEDS: CARVEDILOL 6.25 MG TABLET PO SCH ×2 (10:43→22:26)
--- NOTE | 2018-03-05 10:56 | PDOC PROGRESS REPORT ---
Subjective Progress Note for:: 03/05/18 Subjective:: 67 year old male with a past medical history of congestive heart failure, oxygen dependent COPD with ongoing tobacco smoking, obstructive sleep apnea, morbid obesity, opiate dependent chronic pain and insulin dependent diabetes. Patient was seen by his shoe dyer Dr. Berry earlier in the day and found to have concerning weight gain with leg swelling. He is referred to the emergency department for evaluation where he is found to have +2 edema in the lower extremity bilaterally, orthopnea and a BNP of 3470. He receives IV Lasix and referred to the hospitalist for admission. Patient denies recent change in medications, diet indiscretion, palpitations or chest pain. He admits to CPAP compliance but continued tobacco smoking. 03/03/2018-no acute events in the last 24 hours. Patient is afebrile. Patient is admitted with CHF exacerbation and was placed on IV Lasix. I requested for cardiology consult and echocardiogram. Admission BNP is 3470 and I am going to repeat the BNP tomorrow. His lower leg swelling is improving. Creatinine is slightly elevated 0.034 may be secondary to congestive heart failure. 03/04/2018 no acute events in the last 24 hours. Patient is afebrile. Is not coming down with the bed at all. Even at home he states in the bed all the time. PT consult was requested. overhead line worker consult was requested for rehab. Patient pulse ox is dropping to 80s without BiPAP. Discussed the care plan with the family they agreed for him to go to acute rehab. 03/05/2018 no acute events in the last 24 hours. Physical therapy is working with the patient. T-max is 98.1. Pulse ox on 3 L is 94%. Patient is to stay at least another day to qualify to go to rehab. Reason For Visit: CHF Physical Exam Vital Signs: Temp Pulse Resp BP Pulse Ox 98.1 F 73 19 123/71 94 03/05/18 08:37 03/05/18 08:37 03/05/18 08:37 03/05/18 08:37 03/05/18 08:37 Intake & Output 03/04/18 03/05/18 03/06/18 06:59 06:59 06:59 Intake Total 520 1849 Output Total 1500 2300 Balance -980 -451 Weight 143.6 kg 143.1 kg General appearance: PRESENT: morbidly obese Head exam: PRESENT: atraumatic Eye exam: PRESENT: PERRLA Mouth exam: PRESENT: moist, tongue midline Neck exam: ABSENT: carotid bruit, JVD, lymphadenopathy, thyromegaly Respiratory exam: PRESENT: decreased breath sounds Cardiovascular exam: PRESENT: RRR. ABSENT: diastolic murmur, rubs, systolic murmur GI/Abdominal exam: PRESENT: normal bowel sounds, soft. ABSENT: distended, guarding, mass, organolmegaly, rebound, tenderness Extremities exam: PRESENT: +1 edema Neurological exam: PRESENT: alert, awake, oriented to person, oriented to place, oriented to time, oriented to situation, CN II-XII grossly intact. ABSENT: motor sensory deficit Psychiatric exam: PRESENT: appropriate affect, normal mood. ABSENT: homicidal ideation, suicidal ideation Results Laboratory Results: 03/05/18 05:08 03/05/18 05:08 03/05/18 03/05/18 05:08 05:08 WBC 5.6 RBC 3.95 L Hgb 10.1 L Hct 32.4 L MCV 82 MCH 25.5 L MCHC 31.1 L RDW 17.6 H Plt Count 153 Seg Neutrophils % 72.8 Lymphocytes % 10.7 L Monocytes % 11.6 Eosinophils % 4.1 Basophils % 0.8 Absolute Neutrophils 4.1 Absolute Lymphocytes 0.6 Absolute Monocytes 0.7 Absolute Eosinophils 0.2 Absolute Basophils 0.0 Sodium 140.5 Potassium 4.2 Chloride 97 L Carbon Dioxide 40 H* Anion Gap 4 L BUN 25 H Creatinine 1.07 Est GFR ( Amer) > 60 Est GFR (Non-Af Amer) > 60 Glucose 122 H Calcium 8.4 Magnesium 1.8 Total Bilirubin 0.7 AST 13 L ALT 23 Alkaline Phosphatase 113 Total Protein 5.8 L Albumin 3.4 L 03/02/18 03/02/18 03/02/18 18:56 21:12 22:37 Creatine Kinase 30 L CK-MB (CK-2) Troponin I 0.029 0.034 NT-Pro-B Natriuret Pep 3470 H 03/02/18 03/03/18 03/03/18 22:37 04:24 04:24 Creatine Kinase 25 L CK-MB (CK-2) 0.92 0.82 Troponin I 0.036 0.034 NT-Pro-B Natriuret Pep 03/03/18 03/03/18 03/04/18 10:40 10:40 05:22 Creatine Kinase 24 L CK-MB (CK-2) 0.62 Troponin I 0.018 NT-Pro-B Natriuret Pep 3140 H 03/05/18 05:08 Creatine Kinase CK-MB (CK-2) Troponin I NT-Pro-B Natriuret Pep 2970 H Impressions: Chest X-Ray 03/02/18 17:08 IMPRESSION: HEART ENLARGED WITHOUT FAILURE. NO OTHER SIGNIFICANT RADIOGRAPHIC FINDING IN THE CHEST. Assessment & Plan - Diagnosis (1) Acute exacerbation of CHF (congestive heart failure) Qualifiers: Heart failure type: unspecified Qualified Code(s): I50.9 - Heart failure, unspecified Is this a current diagnosis for this admission?: Yes Plan: 03/03/2018-patient came in with elevated BNP and bilateral pedal edema. Patient has history of congestive heart failure we do not have an echocardiogram report in the last 1 year. Requested for echocardiogram today. Plan is to continue his IV Lasix. daily weight was requested. 03/04/2018 patient is on IV Lasix his BNP came down from 3400 to 3140. Still 1+ pedal edema present. Echocardiogram report is pending. Patient is on Lasix 40 mg IV twice a day. Patient put out a 1500 cc of urine and negative balance of 987 mL in the last 24 hours. To put him on fluid restriction at 1.2 L/day. Daily weight measurements are requested. 03/05/2018-BNP is 2950 came down from admission BNP of 3400. Patient is on 1.2 L fluid restriction. He is presently on Lasix 40 mg IV twice a day. Echocardiogram report indicates patient has systolic dysfunction EF of less than 55%. Diastolic function is normal. Plan is to increase the Lasix to 40 mg 3 times a day. Recheck BMP tomorrow. Plan is to continue physical therapy. (2) Morbid obesity with alveolar hypoventilation Is this a current diagnosis for this admission?: Yes Plan: 03/03/2018 patient's BMI is more than 50 and associated with obstructive sleep apnea. He uses CPAP at night. Plan is to continue the present management and also plan is to discontinue any insomnia medications. Dietary consult was requested diet exercise weight loss and lifestyle modifications were requested. 2018 patient has obstructive sleep apnea. He uses CPAP at night. He is a states in the bed all the time. Even at home he states in the bed. Physical therapy consult was requested he may benefit from going to acute rehab. Diet exercise weight loss again was stressed today. 03/05/2018-patient has morbid obesity sleep apnea. He uses CPAP. Even at home is bedbound. Physical therapy consult was requested. I think is beneficial for the patient if he goes to acute rehab to improve his physical condition. (3) Elevated troponin Is this a current diagnosis for this admission?: Yes Plan: 03/03/2018 troponin levels are slightly elevated 0.034. Probably secondary to underlying congestive heart failure. As of note initial troponin is 0.029. pt denies any chest pains. latest troponin is 0.018. Trending down. Elevated troponins probably secondary to underlying congestive heart failure. pt is asymptomatic. 03/05/2018-elevated troponins are secondary to ischemia demand secondary to underlying congestive heart failure. No complaints of chest pains from the patient's. EKGs are stable. (4) UTI (urinary tract infection) Qualifiers: Urinary tract infection type: site unspecified Hematuria presence: with hematuria Qualified Code(s): N39.0 - Urinary tract infection, site not specified; R31.9 - Hematuria, unspecified Is this a current diagnosis for this admission?: Yes Plan: 03/03/2018-urinalysis shows leukocyte esterase positive. Started on IV Rocephin 1 g daily in the ER plan is to continue the present management and a urine culture were requested. 03/04/2018 patient has a UTI and IV Rocephin 1 g daily. Culture is negative so far. 03/05/2018-urine cultures are negative so far. He is afebrile for for the last few days. Presently is on Rocephin 1 g IV daily. And plan to discontinue Rocephin today. - Time Time Spent with patient: 15-24 minutes Medications reviewed and adjusted accordingly: Yes Anticipated discharge: Acute Rehab
--- NOTE | 2018-03-05 11:01 | PDOC PROGRESS REPORT ---
Subjective Progress Note for:: 03/05/18 Subjective:: 67 year old male with a past medical history of congestive heart failure, oxygen dependent COPD with ongoing tobacco smoking, obstructive sleep apnea, morbid obesity, opiate dependent chronic pain and insulin dependent diabetes. Patient was seen by his glass cutter helper Dr. Berry earlier in the day and found to have concerning weight gain with leg swelling. He is referred to the emergency department for evaluation where he is found to have +2 edema in the lower extremity bilaterally, orthopnea and a BNP of 3470. He receives IV Lasix and referred to the hospitalist for admission. Patient denies recent change in medications, diet indiscretion, palpitations or chest pain. He admits to CPAP compliance but continued tobacco smoking. 03/03/2018-no acute events in the last 24 hours. Patient is afebrile. Patient is admitted with CHF exacerbation and was placed on IV Lasix. I requested for cardiology consult and echocardiogram. Admission BNP is 3470 and I am going to repeat the BNP tomorrow. His lower leg swelling is improving. Creatinine is slightly elevated 0.034 may be secondary to congestive heart failure. 03/04/2018 no acute events in the last 24 hours. Patient is afebrile. Is not coming down with the bed at all. Even at home he states in the bed all the time. PT consult was requested. cut out worker consult was requested for rehab. Patient pulse ox is dropping to 80s without BiPAP. Discussed the care plan with the family they agreed for him to go to acute rehab. 03/05/2018 no acute events in the last 24 hours. Physical therapy is working with the patient. T-max is 98.1. Pulse ox on 3 L is 94%. Patient is to stay at least another day to qualify to go to rehab. 03/05/2018 no acute events in the last 24 hours.. Psych consult was requested. During the recommendations. Patient still on Cardizem drip. Because of the be havioral issues agitation and anxiety she is on a soft restraints. Reason For Visit: CHF Physical Exam Vital Signs: Temp Pulse Resp BP Pulse Ox 98.1 F 73 19 123/71 94 03/05/18 08:37 03/05/18 08:37 03/05/18 08:37 03/05/18 08:37 03/05/18 08:37 Intake & Output 03/04/18 03/05/18 03/06/18 06:59 06:59 06:59 Intake Total 520 1849 Output Total 1500 2300 Balance -980 -451 Weight 143.6 kg 143.1 kg General appearance: PRESENT: no acute distress Head exam: PRESENT: atraumatic Eye exam: PRESENT: PERRLA Mouth exam: PRESENT: moist Neck exam: ABSENT: carotid bruit, JVD, lymphadenopathy, thyromegaly Respiratory exam: PRESENT: decreased breath sounds Cardiovascular exam: PRESENT: irregular rhythm, systolic murmur, tachycardia GI/Abdominal exam: PRESENT: normal bowel sounds, soft. ABSENT: distended, guarding, mass, organolmegaly, rebound, tenderness Extremities exam: PRESENT: full ROM. ABSENT: calf tenderness, clubbing, pedal edema Neurological exam: PRESENT: alert, awake, oriented to person, oriented to place, oriented to time, oriented to situation, CN II-XII grossly intact. ABSENT: motor sensory deficit Psychiatric exam: PRESENT: appropriate affect, normal mood. ABSENT: homicidal ideation, suicidal ideation Results Laboratory Results: 03/05/18 05:08 03/05/18 05:08 03/05/18 03/05/18 05:08 05:08 WBC 5.6 RBC 3.95 L Hgb 10.1 L Hct 32.4 L MCV 82 MCH 25.5 L MCHC 31.1 L RDW 17.6 H Plt Count 153 Seg Neutrophils % 72.8 Lymphocytes % 10.7 L Monocytes % 11.6 Eosinophils % 4.1 Basophils % 0.8 Absolute Neutrophils 4.1 Absolute Lymphocytes 0.6 Absolute Monocytes 0.7 Absolute Eosinophils 0.2 Absolute Basophils 0.0 Sodium 140.5 Potassium 4.2 Chloride 97 L Carbon Dioxide 40 H* Anion Gap 4 L BUN 25 H Creatinine 1.07 Est GFR ( Amer) > 60 Est GFR (Non-Af Amer) > 60 Glucose 122 H Calcium 8.4 Magnesium 1.8 Total Bilirubin 0.7 AST 13 L ALT 23 Alkaline Phosphatase 113 Total Protein 5.8 L Albumin 3.4 L 03/02/18 03/02/18 03/02/18 18:56 21:12 22:37 Creatine Kinase 30 L CK-MB (CK-2) Troponin I 0.029 0.034 NT-Pro-B Natriuret Pep 3470 H 03/02/18 03/03/1803/03/19 22:37 04:24 04:24 Creatine Kinase 25 L CK-MB (CK-2) 0.92 0.82 Troponin I 0.036 0.034 NT-Pro-B Natriuret Pep 03/03/18 03/03/18 03/04/18 10:40 10:40 05:22 Creatine Kinase 24 L CK-MB (CK-2) 0.62 Troponin I 0.018 NT-Pro-B Natriuret Pep 3140 H 03/05/18 05:08 Creatine Kinase CK-MB (CK-2) Troponin I NT-Pro-B Natriuret Pep 2970 H Impressions: Chest X-Ray 03/02/18 17:08 IMPRESSION: HEART ENLARGED WITHOUT FAILURE. NO OTHER SIGNIFICANT RADIOGRAPHIC FINDING IN THE CHEST. Assessment & Plan - Diagnosis (1) Acute exacerbation of CHF (congestive heart failure) Qualifiers: Heart failure type: unspecified Qualified Code(s): I50.9 - Heart failure, unspecified Is this a current diagnosis for this admission?: Yes Plan: 03/03/2018-patient came in with elevated BNP and bilateral pedal edema. Patient has history of congestive heart failure we do not have an echocardiogram report in the last 1 year. Requested for echocardiogram today. Plan is to continue his IV Lasix. daily weight was requested. 03/04/2018 patient is on IV Lasix his BNP came down from 3400 to 3140. Still 1+ pedal edema present. Echocardiogram report is pending. Patient is on Lasix 40 mg IV twice a day. Patient put out a 1500 cc of urine and negative balance of 987 mL in the last 24 hours. To put him on fluid restriction at 1.2 L/day. Daily weight measurements are requested. 03/05/2018-BNP is 2950 came down from admission BNP of 3400. Patient is on 1.2 L fluid restriction. He is presently on Lasix 40 mg IV twice a day. Echocardiogram report indicates patient has systolic dysfunction EF of less than 55%. Diastolic function is normal. Plan is to increase the Lasix to 40 mg 3 times a day. Recheck BMP tomorrow. Plan is to continue physical therapy. (2) Morbid obesity with alveolar hypoventilation Is this a current diagnosis for this admission?: Yes (3) Elevated troponin Is this a current diagnosis for this admission?: Yes (4) UTI (urinary tract infection) Qualifiers: Urinary tract infection type: site unspecified Hematuria presence: with hem aturia Qualified Code(s): N39.0 - Urinary tract infection, site not specified; R31.9 - Hematuria, unspecified Is this a current diagnosis for this admission?: Yes - Time Time Spent with patient: 15-24 minutes Medications reviewed and adjusted accordingly: Yes Anticipated discharge: SNF
[2018-03-05] MEDS: INSULIN LISPRO 100 UNIT/ML 3 ML VIAL SUBCUT PRN ×3 (13:30→22:24)
[2018-03-05] MEDS: FUROSEMIDE 40 MG TABLET PO SCH ×2 (13:30→22:26)
[2018-03-05 14:48] LABS: ARTERIAL BLOOD BASE EXCESS 12.1 mmol/L; ARTERIAL BLOOD H2CO3 2.22 mmol/L (1.05-1.35); ARTERIAL BLOOD HCO3 40.6 mmol/L (20-24); ARTERIAL BLOOD O2 SATURATION 97.2 % (94-98); ARTERIAL BLOOD PH 7.36 (7.35-7.45); ARTERIAL BLOOD PO2 101.8 mmHg (80-100); ARTERIAL BLOOD TOTAL CO2 42.8 mmol/L (23-27)
[2018-03-05 14:49] LABS: ARTERIAL BLOOD FIO2 40%
[2018-03-05 14:52] LABS: ARTERIAL BLOOD PCO2 73.6 mmHg (35-45)
[2018-03-05] MEDS: FUROSEMIDE INJ/PF 40 MG/4 ML SDV IV SCH (17:57)
[2018-03-05] MEDS: SIMVASTATIN 10 MG TABLET PO SCH (22:25)
[2018-03-05] MEDS: NYSTATIN TOPICAL POWDER 15 GM TP SCH (22:26)
[2018-03-06] MEDS: GABAPENTIN 300 MG CAPSULE PO SCH ×4 (02:54→21:59)
[2018-03-06 05:57] LABS: ABSOLUTE BASOPHILS # (AUTO) 0.1 10^3/uL (0.0-0.2); ABSOLUTE EOSINOPHILS # (AUTO) 0.2 10^3/uL (0.0-0.6); ABSOLUTE LYMPHOCYTES (AUTO) 0.6 10^3/uL (0.5-4.7); ABSOLUTE MONOCYTES (AUTO) 0.7 10^3/uL (0.1-1.4); ABSOLUTE NEUT (AUTO) 4.3 10^3/uL (1.7-8.2); BASOPHILS % (AUTO) 1.1 % (0-2); EOSINOPHILS % (AUTO) 3.7 % (0-6); HEMATOCRIT 32.8 % (37.9-51.0); HEMOGLOBIN 10.2 g/dL (13.5-17.0); LYMPHOCYTES % (AUTO) 9.7 % (13-45); MEAN CORPUSCULAR HEMOGLOBIN 25.5 pg (27.0-33.4); MEAN CORPUSCULAR HGB CONC 31.1 g/dL (32.0-36.0); MEAN CORPUSCULAR VOLUME 82 fl (80-97); MONOCYTES % (AUTO) 11.8 % (3-13); PLATELET COUNT 148 10^3/uL (150-450); RED CELL DISTRIBUTION WIDTH 17.3 % (11.5-14.0); SEGMENTED NEUTROPHILS % (AUTO) 73.7 % (42-78); TOTAL CELLS COUNTED % (AUTO) 100 %; WHITE BLOOD COUNT 5.8 10^3/uL (4.0-10.5)
[2018-03-06] MEDS: HEPARIN SOD (PORCINE) 5,000 UNIT/ML 1 ML SYRINGE SUBCUT SCH ×4 (06:01→22:04)
[2018-03-06] MEDS: FUROSEMIDE 40 MG TABLET PO SCH ×3 (06:02→22:05)
[2018-03-06 06:27] LABS: ALANINE AMINOTRANSFERASE 18 U/L (21-72); ALBUMIN 3.4 g/dL (3.5-5.0); ALKALINE PHOSPHATASE 120 U/L (38-126); ASPARTATE AMINO TRANSFERASE 15 U/L (17-59); BILIRUBIN,DIRECT 0.5 mg/dL (0.0-0.4); BILIRUBIN,TOTAL 0.7 mg/dL (0.2-1.3); BLOOD UREA NITROGEN 25 mg/dL (7-20); CALCIUM 8.4 mg/dL (8.4-10.2); CHLORIDE 96 mmol/L (98-107); GLUCOSE 92 mg/dL (75-110); POTASSIUM 4.5 mmol/L (3.6-5.0); TOTAL PROTEIN 5.6 g/dL (6.3-8.2)
[2018-03-06 06:37] LABS: ANION GAP 6 (5-19)
[2018-03-06 06:38] LABS: CARBON DIOXIDE 39 mmol/L (22-30)
[2018-03-06] MEDS: INSULIN GLARGINE,HUM.REC.ANLOG 1,000 UNIT/10 ML UNIT SUBCUT SCH (08:13)
[2018-03-06] MEDS: OXYCODONE HCL SR 10 MG TABLET PO SCH ×2 (09:08→21:59)
[2018-03-06] MEDS: ASPIRIN 81 MG TABLET, ENT COATED PO SCH (09:08)
[2018-03-06] MEDS: CARVEDILOL 6.25 MG TABLET PO SCH ×2 (09:08→22:05)
[2018-03-06] MEDS: NITROGLYCERIN 5 MG (0.2 MG/HR) PATCH.TD24 TD SCH (09:09)
[2018-03-06] MEDS: NYSTATIN TOPICAL POWDER 15 GM TP SCH ×2 (09:09→22:00)
[2018-03-06] MEDS: BUDESONIDE/FORMOTEROL 160-4.5 MCG 60 PUFF/6 GM MDI IH SCH ×2 (09:09→22:01)
[2018-03-06] MEDS: INSULIN LISPRO 100 UNIT/ML 3 ML VIAL SUBCUT PRN ×2 (13:53→17:13)
--- NOTE | 2018-03-06 17:42 | PROGRESS NOTE E ---
Progress Note NAME: THEODORE SON : 1950 AGE: 67Y DATE: 03/06/2018 ROOM: 328 SUBJECTIVE: The patient is a 67-year-old man who has a past medical history of heart failure, COPD exacerbation, sleep apnea. The patient admitted with acute hypoxic respiratory failure, started on BiPAP. OBJECTIVE: GENERAL: The patient is lying in bed, comfortable, not in distress. VITAL SIGNS: Blood pressure 145/56, respiratory rate 21, temperature 98, saturation 95%. HEENT: Head normocephalic, atraumatic. Pupils round, reactive to light and accommodation bilaterally. Extraocular movements intact. Ears: Tympanic membranes intact bilaterally. No discharge from the ear. No discharge from the nose. NECK: Supple, no increased JVD, no thyromegaly, no lymphadenopathy. CARDIOVASCULAR: Normal S1, S2. Regular rate and rhythm. No murmur. RESPIRATORY: Decreased air entry bilaterally. ABDOMEN: Soft, nontender. MUSCULOSKELETAL: Plus 1 edema. NEUROLOGIC: Awake, alert. LABORATORY DATA: White blood count 5.6, hemoglobin is 10. Creatinine 0.8, sodium 141, potassium 4.5. ASSESSMENT AND PLAN: 1. ACUTE EXACERBATION OF CONGESTIVE HEART FAILURE. Continue Lasix IV. 2. ACUTE HYPOXIC HYPERCARBIC RESPIRATORY FAILURE SECONDARY TO COPD. 3. SLEEP APNEA. Continue BiPAP. 4. MORBID OBESITY. 5. ELEVATED TROPONIN. Probably due to hypoxemia and demand ischemia. 6. URINARY TRACT INFECTION. On IV Rocephin. Continue IV Rocephin. MEDICAL NECESSITY: IV antibiotic and IV Lasix. TIME SPENT: Twenty-five minutes. DISPOSITION: Probably home in 2 to 3 days. The patient is waiting for rehab placement. DICTATING PHYSICIAN: KRISTEN ALCARAZ M.D. [id number] PHY#: [id number] ID: [id number] JOB#: [id number] ACCT: [id number] cc: >
[2018-03-06] MEDS: SIMVASTATIN 10 MG TABLET PO SCH (22:00)
[2018-03-07] MEDS: GABAPENTIN 300 MG CAPSULE PO SCH ×5 (04:20→20:24)
[2018-03-07] MEDS ORDERED: NALOXONE HCL INJ 2 MG/2 ML DISP.SYRIN IV ONE ×2 (04:45→05:15)
[2018-03-07] MEDS ORDERED: NALOXONE HCL INJ/PF 0.4 MG/1 ML SDV ONE ×2 (04:45→05:04)
[2018-03-07 04:50] LABS: ARTERIAL BLOOD BASE EXCESS 23.7 mmol/L; ARTERIAL BLOOD H2CO3 2.82 mmol/L (1.05-1.35); ARTERIAL BLOOD HCO3 53.6 mmol/L (20-24); ARTERIAL BLOOD O2 SATURATION 93.9 % (94-98); ARTERIAL BLOOD PH 7.38 (7.35-7.45); ARTERIAL BLOOD PO2 76.5 mmHg (80-100); ARTERIAL BLOOD TOTAL CO2 56.4 mmol/L (23-27)
[2018-03-07 04:52] LABS: ARTERIAL BLOOD FIO2 40%
[2018-03-07 04:53] LABS: ARTERIAL BLOOD PCO2 93.7 mmHg (35-45)
[2018-03-07 06:09] LABS: ALBUMIN 3.4 g/dL (3.5-5.0); BLOOD UREA NITROGEN 21 mg/dL (7-20); CALCIUM 8.7 mg/dL (8.4-10.2); CHLORIDE 89 mmol/L (98-107); GLUCOSE 101 mg/dL (75-110); PHOSPHORUS 4.2 mg/dL (2.5-4.5); POTASSIUM 4.1 mmol/L (3.6-5.0); SODIUM 140.1 mmol/L (137-145)
[2018-03-07 06:43] LABS: ANION GAP 3 (5-19)
[2018-03-07 06:44] LABS: CARBON DIOXIDE 48 mmol/L (22-30)
[2018-03-07] MEDS: HEPARIN SOD (PORCINE) 5,000 UNIT/ML 1 ML SYRINGE SUBCUT SCH ×3 (06:54→21:08)
[2018-03-07] MEDS: FUROSEMIDE 40 MG TABLET PO SCH ×2 (06:55→18:55)
[2018-03-07 08:40] LABS: HEMOGLOBIN 10.9 g/dL (13.5-17.0); MEAN CORPUSCULAR HEMOGLOBIN 25.2 pg (27.0-33.4); MEAN CORPUSCULAR VOLUME 81 fl (80-97); PLATELET COUNT 134 10^3/uL (150-450); RED BLOOD COUNT 4.31 10^6/uL (4.35-5.55); RED CELL DISTRIBUTION WIDTH 17.9 % (11.5-14.0); WHITE BLOOD COUNT 5.1 10^3/uL (4.0-10.5)
[2018-03-07 09:21] LABS: ABSOLUTE LYMPHOCYTES# (MANUAL) 0.4 10^3/uL (0.5-4.7); ABSOLUTE MONOCYTES # (MANUAL) 0.6 10^3/uL (0.1-1.4); BASOPHILS % (MANUAL) 0 % (0-2); EOSINOPHILS % (MANUAL) 2 % (0-6); LYMPHOCYTES % (MANUAL) 8 % (13-45); MONOCYTES % (MANUAL) 12 % (3-13); SEGMENTED NEUTROPHILS % (MAN) 78 % (42-78); TOTAL CELLS COUNTED 100
[2018-03-07 09:22] LABS: ANISOCYTOSIS 1+; HYPOCHROMASIA SLIGHT; PLATELET COMMENT DECREASED
[2018-03-07] MEDS: CARVEDILOL 6.25 MG TABLET PO SCH ×2 (11:24→21:30)
[2018-03-07] MEDS: BUDESONIDE/FORMOTEROL 160-4.5 MCG 60 PUFF/6 GM MDI IH SCH ×2 (11:26→21:10)
[2018-03-07] MEDS: ASPIRIN 81 MG TABLET, ENT COATED PO SCH (11:26)
[2018-03-07] MEDS: NITROGLYCERIN 5 MG (0.2 MG/HR) PATCH.TD24 TD SCH (11:32)
[2018-03-07] MEDS: NYSTATIN TOPICAL POWDER 15 GM TP SCH ×2 (11:36→21:12)
[2018-03-07] MEDS ORDERED: ROFLUMILAST 500 MCG TABLET PO ONE (13:15)
[2018-03-07 13:34] LABS: ARTERIAL BLOOD BASE EXCESS 20.1 mmol/L; ARTERIAL BLOOD H2CO3 2.22 mmol/L (1.05-1.35); ARTERIAL BLOOD O2 SATURATION 86.9 % (94-98); ARTERIAL BLOOD PH 7.43 (7.35-7.45); ARTERIAL BLOOD PO2 53.4 mmHg (80-100); ARTERIAL BLOOD TOTAL CO2 50.3 mmol/L (23-27)
[2018-03-07 13:35] LABS: ARTERIAL BLOOD FIO2 40%
[2018-03-07 13:37] LABS: ARTERIAL BLOOD PCO2 73.8 mmHg (35-45)
--- NOTE | 2018-03-07 16:39 | PDOC CONSULTATION ---
Consultation Consult Date: 03/07/18 Attending physician:: KRISTEN ALCARAZ Consult reason:: acute/chronic resp failure/patel History of Present Illness Admission Date/PCP: 03/03/18 10:21 COSMO GUILLEN MD History of Present Illness: THEODORE SON is a 67 year old male, admitted for increasing shortness of breath and respiratory failure has a long history of smoking 3-4 packs a day for at least the last 40 years. Shortness of breath as well as dyspnea on exertion at home does with some supplemental oxygen in addition he has obstructive sleep apnea and wears BiPAP. He had a cough of clear white phlegm no hemoptysis no fevers chills nausea vomiting or diarrhea no history of chronic lung disease as a child or adolescent .He admit's to large amounts of exposure to passive smoke as a child as well as an adult. 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 He has no pets no recent travel no history of angina-like chest pain sleeps on 2 pillows frequent PND. Nocturnal cough and frequent and daily edema. He carries a diagnosis of obstructive sleep apnea and wears BiPAP at home Past Medical History Cardiac Medical History: Reports: Congestive Heart Failure, Hyperlipidema, Hyper tension Denies: Myocardial Infarction Pulmonary Medical History: Reports: Chronic Obstructive Pulmonary Disease (COPD) Denies: Asthma - ? 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 Smoking Status: Current Every Day Smoker Cigarettes Packs Per Day: 4 Number of Years Smokin Last Time Smoked: 03/02/18 Passive smoke exposure as: Both Frequency of Alcohol Use: None Hx Recreational Drug Use: No Drugs: None Hx Prescription Drug Abuse: No Do you have pets?: No Have you had any respiratory illnesses as a child?: No Have you been exposed to any sick contacts recently?: No Have you had any recent respiratory illnesses?: Yes Have you travelled outside of [place] in the past 12 months?: No - Advance Directive Resuscitation Status: Full Code Family History Family History: CAD, COPD, DM, Hypertension, Malignancy Parental Family History Reviewed: Yes Children Family History Reviewed: Yes Sibling(s) Family History Reviewed.: Yes Medication/Allergy Home Medications: Albuterol Sulfate [Proair HFA Inhalation Aerosol 8.5 gm MDI] 2 puff IH Q4HP PRN 03/03/18 Aspirin [Adult Low Dose Aspirin EC] 81 mg PO DAILY 03/03/18 Budesonide/Formoterol Fumarate [Symbicort HFA 160-4.5 mcg Inhaler 6 gm] 2 puff IH BID 03/03/18 Carvedilol [Coreg 6.25 mg Tablet] 6.25 mg PO BID 03/03/18 Furosemide [Lasix 80 mg Tablet] 80 mg PO BID 03/03/18 Gabapentin [Neurontin] 600 mg PO Q6 03/03/18 Insulin Glargine,Hum.rec.anlog [Lantus Insulin 100 Unit/mL] 80 units SQ QAM 03/03/18 Insulin Lispro [Humalog Kwikpen U-100] 0 units SQ .PERSLIDINGSCALE 03/03/18 Oxycodone HCl [Oxycontin] 15 mg PO Q8 03/03/18 Simvastatin [Zocor 20 mg Tablet] 20 mg PO QHS 03/03/18 Tiotropium [place] [Spiriva Respimat] 2 puff IH DAILY 03/03/18 Allergies/Adverse Reactions: No Known Allergies Allergy (Verified 01/20/17 12:59) Review of Systems ROS unobtainable: Due to mental status Physical Exam Vital Signs: Temp Pulse Resp BP Pulse Ox 99.4 F 82 24 H 144/53 H 92 03/07/18 03:29 03/07/18 07:00 03/07/18 08:27 03/07/18 03:29 03/07/18 08:27 Intake & Output 03/06/18 03/07/18 03/08/18 06:59 06:59 06:59 Intake Total 1684 Output Total 0779 2900 Balance -1461 -2900 Weight 140.9 kg 136.5 kg General appearance: PRESENT: disheveled, mild distress, morbidly obese. ABSENT: cooperative Head exam: PRESENT: atraumatic, normocephalic Eye exam: PRESENT: conjunctiva pale. ABSENT: EOMI, nystagmus, scleral icterus Mouth exam: PRESENT: dry mucosa, neck supple, tongue midline Teeth exam: PRESENT: poor dentation Neck exam: ABSENT: carotid bruit, JVD, lymphadenopathy, thyromegaly, tracheal deviation, tracheostomy Respiratory exam: PRESENT: decreased breath sounds, prolonged expiratory phas, rales, rhonchi, tachypnea, unlabored. ABSENT: retraction, stridor Cardiovascular exam: PRESENT: RRR, +S1, +S2, systolic murmur Pulses: PRESENT: normal radial pulses GI/Abdominal exam: PRESENT: soft. ABSENT: tenderness Extremities exam: PRESENT: pedal edema. ABSENT: calf tenderness, clubbing, joint swelling Musculoskeletal exam: ABSENT: deformity, dislocation Neurological exam: PRESENT: altered, awake Skin exam: PRESENT: dry, warm Results Laboratory Results: 03/07/18 05:26 03/07/18 05:26 03/07/18 03/07/18 03/07/18 04:45 05:26 05:26 WBC 5.1 RBC 4.31 L Hgb 10.9 L Hct 35.0 L MCV 81 MCH 25.2 L MCHC 31.0 L RDW 17.9 H Plt Count 134 L Seg Neutrophils % Not Reportable Lymphocytes % Not Reportable Monocytes % Not Reportable Eosinophils % Not Reportable Basophils % Not Reportable Absolute Neutrophils Not Reportable Absolute Lymphocytes Not Reportable Absolute Monocytes Not Reportable Absolute Eosinophils Not Reportable Absolute Basophils Not Reportable Carbonic Acid 2.82 H HCO3/H2CO3 Ratio 19:1 ABG pH 7.38 ABG pCO2 93.7 H* ABG pO2 76.5 L ABG HCO3 53.6 H ABG O2 Saturation 93.9 L ABG Base Excess 23.7 FiO2 40% Sodium 140.1 Potassium 4.1 Chloride 89 L Carbon Dioxide 48 H* Anion Gap 3 L BUN 21 H Creatinine 0.84 Est GFR ( Amer) > 60 Est GFR (Non-Af Amer) > 60 Glucose 101 Calcium 8.7 Phosphorus 4.2 Albumin 3.4 L 03/02/18 03/02/18 03/02/18 18:56 21:12 22:37 Creatine Kinase 30 L CK-MB (CK-2) Troponin I 0.029 0.034 NT-Pro-B Natriuret Pep 3470 H 03/02/18 03/03/18 03/03/18 22:37 04:24 04:24 Creatine Kinase 25 L CK-MB (CK-2) 0.92 0.82 Troponin I 0.036 0.034 NT-Pro-B Natriuret Pep 03/03/18 03/03/18 03/04/18 10:40 10:40 05:22 Creatine Kinase 24 L CK-MB (CK-2) 0.62 Troponin I 0.018 NT-Pro-B Natriuret Pep 3140 H 03/05/18 03/06/18 05:08 04:58 Creatine Kinase CK-MB (CK-2) Troponin I NT-Pro-B Natriuret Pep 2970 H 3340 H Impressions: Chest X-Ray 03/02/18 17:08 IMPRESSION: HEART ENLARGED WITHOUT FAILURE. NO OTHER SIGNIFICANT RADIOGRAPHIC FINDING IN THE CHEST. Assessment & Plan - Diagnosis (1) PATEL (obstructive sleep apnea) Is this a current diagnosis for this admission?: Yes Plan: increased IPAP and TV (2) Morbid obesity with alveolar hypoventilation Is this a current diagnosis for this admission?: Yes Plan: adjust to optimize TV and SAO2 (3) Tobacco abuse Is this a current diagnosis for this admission?: Yes Plan: transdermal nicotene (4) COPD (chronic obstructive pulmonary disease) with emphysema Qualifiers: Emphysema type: centrilobular Qualified Code(s): J43.2 - Centrilobular emphysema Is this a current diagnosis for this admission?: Yes Plan: add daliresp
[2018-03-07] MEDS: INSULIN GLARGINE,HUM.REC.ANLOG 1,000 UNIT/10 ML UNIT SUBCUT SCH (18:49)
--- NOTE | 2018-03-07 19:02 | PROGRESS NOTE E ---
Progress Note NAME: THEODORE SON : 1950 AGE: 67Y DATE: 03/07/2018 ROOM: 328 SUBJECTIVE: The patient is a pleasant 67-year-old male who had a past medical history of COPD, obstructive sleep apnea, morbid obesity, admitted with acute hypercarbic hypoxic respiratory failure. The patient is very somnolent this morning and he took oxycodone. He is still *------* this morning. The patient was placed on BiPAP. When I saw him this morning, he was very somnolent and very lethargic. OBJECTIVE: GENERAL: Patient lying in bed, comfortable, not in distress. VITAL SIGNS: Blood pressure is 144/53, temperature 99.4, saturation is 92% on FiO2 of 40. HEENT: Head normocephalic, atraumatic. Pupils round, reactive to light and accommodation. Bilateral extraocular movements intact. Ears: Tympanic membranes are intact. No discharge from the ears. No discharge from the nose. NECK: Supple. No increased JVD. No thyromegaly, no lymphadenopathy. CARDIOVASCULAR: Normal S1, S2. Regular rate and rhythm. No murmur. RESPIRATORY: Decreased air entry bilaterally. ABDOMEN: Soft. MUSCULOSKELETAL: No edema. NEUROLOGICAL: Awake. LABORATORY DATA: ABG: The pH is 7.3, pCO2 is 93, O2 sat is 76. Sodium is 140, potassium 4.1, chloride is 89, carbon dioxide 48. ASSESSMENT: 1. ACUTE HYPOXIC HYPERCAPNIC RESPIRATORY FAILURE EXACERBATION, WORSENING. 2. SLEEP APNEA. 3. CONGESTIVE HEART FAILURE. 4. MORBID OBESITY. 5. ELEVATED TROPONIN, PROBABLY DUE TO HYPOXIA. 6. URINARY TRACT INFECTION, ON ROCEPHIN. PLAN: The patient is very somnolent today and he still is retaining CO2, which is increased to 93. BiPAP was started. Continue BiPAP. Repeat ABG later today. Change Lasix to p.o.for acute hypoxic respiratory failure. MEDICAL NECESSITY: Patient needs to stay for management of COPD. He is hypercapnic today; his CO2 is 93. DICTATING PHYSICIAN: KRISTEN ALCARAZ M.D. [id number] PHY#: [id number] ID: [id number] JOB#: [id number] ACCT: [id number] cc: > MTDD
[2018-03-07] MEDS: SIMVASTATIN 10 MG TABLET PO SCH (21:10)
[2018-03-07] MEDS: ACETAMINOPHEN 325 MG TABLET PO PRN (21:30)
[2018-03-08] MEDS: GABAPENTIN 300 MG CAPSULE PO SCH ×4 (02:07→22:22)
[2018-03-08] MEDS: HEPARIN SOD (PORCINE) 5,000 UNIT/ML 1 ML SYRINGE SUBCUT SCH ×3 (05:19→22:27)
[2018-03-08 06:32] LABS: ARTERIAL BLOOD BASE EXCESS 20.5 mmol/L; ARTERIAL BLOOD H2CO3 2.74 mmol/L (1.05-1.35); ARTERIAL BLOOD HCO3 50.4 mmol/L (20-24); ARTERIAL BLOOD O2 SATURATION 94.9 % (94-98); ARTERIAL BLOOD PH 7.36 (7.35-7.45); ARTERIAL BLOOD PO2 82.1 mmHg (80-100); ARTERIAL BLOOD TOTAL CO2 53.2 mmol/L (23-27)
[2018-03-08 06:33] LABS: ARTERIAL BLOOD FIO2 40%
[2018-03-08 06:34] LABS: ABSOLUTE LYMPHOCYTES (AUTO) 0.3 10^3/uL (0.5-4.7); ABSOLUTE MONOCYTES (AUTO) 0.7 10^3/uL (0.1-1.4); ABSOLUTE NEUT (AUTO) 3.1 10^3/uL (1.7-8.2); BASOPHILS % (AUTO) 0.8 % (0-2); EOSINOPHILS % (AUTO) 0.5 % (0-6); HEMOGLOBIN 11.3 g/dL (13.5-17.0); LYMPHOCYTES % (AUTO) 6.1 % (13-45); MEAN CORPUSCULAR HEMOGLOBIN 25.2 pg (27.0-33.4); MEAN CORPUSCULAR HGB CONC 30.5 g/dL (32.0-36.0); MEAN CORPUSCULAR VOLUME 83 fl (80-97); MONOCYTES % (AUTO) 17.5 % (3-13); PLATELET COUNT 133 10^3/uL (150-450); RED BLOOD COUNT 4.48 10^6/uL (4.35-5.55); RED CELL DISTRIBUTION WIDTH 18.2 % (11.5-14.0); SEGMENTED NEUTROPHILS % (AUTO) 75.1 % (42-78); TOTAL CELLS COUNTED % (AUTO) 100 %; WHITE BLOOD COUNT 4.1 10^3/uL (4.0-10.5)
[2018-03-08] MEDS ORDERED: NALOXONE HCL INJ/PF 0.4 MG/1 ML SDV ONE (06:37)
[2018-03-08 06:58] LABS: BLOOD UREA NITROGEN 27 mg/dL (7-20); CALCIUM 8.4 mg/dL (8.4-10.2); CHLORIDE 88 mmol/L (98-107); GLUCOSE 121 mg/dL (75-110); POTASSIUM 4.2 mmol/L (3.6-5.0); SODIUM 138.6 mmol/L (137-145)
[2018-03-08] MEDS ORDERED: NALOXONE HCL INJ/PF 0.4 MG/1 ML SDV IV ONE (07:00)
[2018-03-08 07:23] LABS: ANION GAP 7 (5-19)
[2018-03-08 07:25] LABS: CARBON DIOXIDE 44 mmol/L (22-30)
[2018-03-08] MEDS: INSULIN GLARGINE,HUM.REC.ANLOG 1,000 UNIT/10 ML UNIT SUBCUT SCH (08:06)
[2018-03-08 10:21] LABS: ARTERIAL BLOOD BASE EXCESS 22.1 mmol/L; ARTERIAL BLOOD H2CO3 2.62 mmol/L (1.05-1.35); ARTERIAL BLOOD HCO3 51.5 mmol/L (20-24); ARTERIAL BLOOD O2 SATURATION 93.9 % (94-98); ARTERIAL BLOOD PH 7.39 (7.35-7.45); ARTERIAL BLOOD PO2 74.9 mmHg (80-100); ARTERIAL BLOOD TOTAL CO2 54.2 mmol/L (23-27)
[2018-03-08 10:24] LABS: ARTERIAL BLOOD FIO2 40%
[2018-03-08 10:27] LABS: ARTERIAL BLOOD PCO2 87.1 mmHg (35-45)
[2018-03-08] MEDS: CARVEDILOL 6.25 MG TABLET PO SCH ×2 (11:19→22:23)
[2018-03-08] MEDS: ASPIRIN 81 MG TABLET, ENT COATED PO SCH (11:20)
[2018-03-08] MEDS: NITROGLYCERIN 5 MG (0.2 MG/HR) PATCH.TD24 TD SCH (11:23)
[2018-03-08] MEDS: FUROSEMIDE INJ/PF 20 MG/2 ML SDV IV SCH ×2 (11:24→17:26)
[2018-03-08] MEDS: NYSTATIN TOPICAL POWDER 15 GM TP SCH ×2 (11:24→22:24)
[2018-03-08] MEDS ORDERED: FUROSEMIDE INJ/PF 20 MG/2 ML SDV ONE ×2 (11:26→18:00)
[2018-03-08] MEDS: IPRATROPIUM/ALBUTEROL 0.5-2.5 MG/3 ML AMPUL NEB SCH ×2 (12:28→19:45)
[2018-03-08] MEDS: FUROSEMIDE 40 MG TABLET PO SCH (13:11)
[2018-03-08] MEDS: BUDESONIDE/FORMOTEROL 160-4.5 MCG 60 PUFF/6 GM MDI IH SCH (13:11)
[2018-03-08] MEDS ORDERED: FUROSEMIDE INJ/PF 20 MG/2 ML SDV IV ONE (19:00)
--- NOTE | 2018-03-08 20:17 | PDOC PROGRESS REPORT ---
Subjective Progress Note for:: 03/08/18 - Assuming care today Subjective:: Patient seen in the ICU as he was transferred by corporate manager for respiratory failure. Spoke with patient briefly since he has a BiPAP on and I am unable to understand what he saying. He does respond with nods to my question and denies any chest pain, abdominal pain, nausea or vomiting, or diarrhea. He denies any shortness of breath while he is on the BiPAP now. No family at bedside Reason For Visit: CHF Physical Exam Vital Signs: Temp Pulse Resp BP Pulse Ox 100.6 F H 73 22 H 147/61 H 94 03/08/18 19:57 03/08/18 19:45 03/08/18 19:45 03/08/18 17:25 03/08/18 19:45 Intake & Output 03/07/18 03/08/18 03/09/18 06:59 06:59 06:59 Intake Total 238 0 Output Total 2900 1850 1050 Balance -2900 -1612 -1050 Weight 300 lb 14.896 oz 294 lb 15.656 oz General appearance: PRESENT: no acute distress, morbidly obese, other - Physical exam done with ICU nursing at bedside Head exam: PRESENT: atraumatic, normocephalic Eye exam: PRESENT: EOMI. ABSENT: conjunctival injection, scleral icterus Ear exam: PRESENT: normal external ear exam Mouth exam: PRESENT: tongue midline Neck exam: ABSENT: tracheal deviation Respiratory exam: PRESENT: decreased breath sounds, rhonchi, symmetrical, wheezes Cardiovascular exam: PRESENT: +S1, +S2 Pulses: PRESENT: +2 pedal pulses bilateral GI/Abdominal exam: PRESENT: normal bowel sounds, soft. ABSENT: tenderness Gentrourinary exam: PRESENT: other - Base of shaft of penis small ulcer noted- erythematous area. Somewhat edematous penis but nontender. Pain with moving the penis to check the skin Neurological exam: PRESENT: alert, awake, oriented to person, other - Unable to assess cranial nerves that he is on the BiPAP Limited exam due to him being on BiPAP Skin exam: PRESENT: dry, warm Results Laboratory Results: 03/08/18 05:43 03/08/18 05:43 03/08/18 03/08/18 03/08/18 05:43 05:43 06:05 WBC 4.1 RBC 4.48 Hgb 11.3 L Hct 37.0 L MCV 83 MCH 25.2 L MCHC 30.5 L RDW 18.2 H Plt Count 133 L Seg Neutrophils % 75.1 Lymphocytes % 6.1 L Monocytes % 17.5 H Eosinophils % 0.5 Basophils % 0.8 Absolute Neutrophils 3.1 Absolute Lymphocytes 0.3 L Absolute Monocytes 0.7 Absolute Eosinophils 0.0 Absolute Basophils 0.0 Carbonic Acid 2.74 H HCO3/H2CO3 Ratio 18:1 ABG pH 7.36 ABG pCO2 91.0 H* ABG pO2 82.1 ABG HCO3 50.4 H ABG O2 Saturation 94.9 ABG Base Excess 20.5 FiO2 40% Sodium 138.6 Potassium 4.2 Chloride 88 L Carbon Dioxide 44 H* Anion Gap 7 BUN 27 H Creatinine 0.93 Est GFR ( Amer) > 60 Est GFR (Non-Af Amer) > 60 Glucose 121 H Lactic Acid Calcium 8.4 Magnesium 1.9 03/08/18 03/08/18 10:03 16:14 WBC RBC Hgb Hct MCV MCH MCHC RDW Plt Count Seg Neutrophils % Lymphocytes % Monocytes % Eosinophils % Basophils % Absolute Neutrophils Absolute Lymphocytes Absolute Monocytes Absolute Eosinophils Absolute Basophils Carbonic Acid 2.62 H HCO3/H2CO3 Ratio 19:1 ABG pH 7.39 ABG pCO2 87.1 H* ABG pO2 74.9 L ABG HCO3 51.5 H ABG O2 Saturation 93.9 L ABG Base Excess 22.1 FiO2 40% Sodium Potassium Chloride Carbon Dioxide Anion Gap BUN Creatinine Est GFR ( Amer) Est GFR (Non-Af Amer) Glucose Lactic Acid 0.8 Calcium Magnesium 03/02/18 03/02/18 03/02/18 18:56 21:12 22:37 Creatine Kinase 30 L CK-MB (CK-2) Troponin I 0.029 0.034 NT-Pro-B Natriuret Pep 3470 H 03/02/18 03/03/18 03/03/18 22:37 04:24 04:24 Creatine Kinase 25 L CK-MB (CK-2) 0.92 0.82 Troponin I 0.036 0.034 NT-Pro-B Natriuret Pep 03/03/18 03/03/18 03/04/18 10:40 10:40 05:22 Creatine Kinase 24 L CK-MB (CK-2) 0.62 Troponin I 0.018 NT-Pro-B Natriuret Pep 3140 H 03/05/18 03/06/18 03/08/18 05:08 04:58 16:14 Creatine Kinase CK-MB (CK-2) Troponin I NT-Pro-B Natriuret Pep 2970 H 3340 H 7920 H Impressions: Chest X-Ray 03/02/18 17:08 IMPRESSION: HEART ENLARGED WITHOUT FAILURE. NO OTHER SIGNIFICANT RADIOGRAPHIC FINDING IN THE CHEST. Assessment & Plan - Diagnosis (1) Cellulitis Is this a current diagnosis for this admission?: Yes Plan: Today evaluated patient for erythema at the base of the penis and there is a small ulcer. I am not sure how long this has been there. I will start him on some Zosyn for broad-spectrum antibiotics. We will get wound culture. We will adjust antibiotics as needed. There is some swelling around the area and into the penis-we have no urology service at this time-I will try to manage this patient but if symptoms worsen that we may need to transfer for higher level of care with urology at a different facility. (2) Acute respiratory failure with hypoxia and hypercapnia Is this a current diagnosis for this admission?: Yes Plan: Most likely secondary to COPD exacerbation versus heart failure. He is hypercapnic and hypoxic and was started on BiPAP. I consulted with Dr. Finney and I appreciate his assistance. He moved patient down to the ICU today for higher level care as patient is still requiring BiPAP. Patient has a history of being intubated in the past for his respiratory failure and also ended up with trach collar in the past. If patient decompensates on the BiPAP then we may have to again intubate him for airway protection. This time he is alert and katie ented and doing somewhat well on the BiPAP. But I am not sure how long he will be able to continue this. We will continue to treat with aggressive pulmonary hygiene (3) COPD (chronic obstructive pulmonary disease) with emphysema Qualifiers: Emphysema type: centrilobular Qualified Code(s): J43.2 - Centrilobular emphysema Is this a current diagnosis for this admission?: Yes Plan: See plan above for acute respiratory failure (4) Morbid obesity with alveolar hypoventilation Is this a current diagnosis for this admission?: Yes Plan: Pulmonology is consulted (5) PATEL (obstructive sleep apnea) Is this a current diagnosis for this admission?: Yes Plan: Currently on BiPAP (6) Acute exacerbation of CHF (congestive heart failure) Qualifiers: Heart failure type: unspecified Qualified Code(s): I50.9 - Heart failure, unspecified Is this a current diagnosis for this admission?: Yes Plan: His BNP was elevated greater than 7000 today. He was on Lasix 20 mg twice daily and I have switched him back to 40 mg IV twice daily. Monitor I's and O's and daily weights. Echocardiogram done during this admission showed EF of 55% to likely has diastolic heart failure. - Time Time Spent with patient: 35 or more minutes
[2018-03-08] MEDS: PIPERACILLIN SODIUM/TAZOBACTAM 3.375 GM in NORMAL SALINE 100 ML IV SCH ×2 (20:30→23:52)
[2018-03-08] MEDS: SIMVASTATIN 10 MG TABLET PO SCH (22:25)
[2018-03-09] MEDS: GABAPENTIN 300 MG CAPSULE PO SCH ×2 (02:02→08:29)
[2018-03-09] MEDS: IPRATROPIUM/ALBUTEROL 0.5-2.5 MG/3 ML AMPUL NEB SCH ×2 (02:17→08:11)
[2018-03-09 04:14] LABS: HEMATOCRIT 34.8 % (37.9-51.0); HEMOGLOBIN 10.7 g/dL (13.5-17.0); MEAN CORPUSCULAR HEMOGLOBIN 25.3 pg (27.0-33.4); MEAN CORPUSCULAR HGB CONC 30.9 g/dL (32.0-36.0); MEAN CORPUSCULAR VOLUME 82 fl (80-97); PLATELET COUNT 121 10^3/uL (150-450); RED BLOOD COUNT 4.25 10^6/uL (4.35-5.55); RED CELL DISTRIBUTION WIDTH 17.9 % (11.5-14.0); WHITE BLOOD COUNT 3.5 10^3/uL (4.0-10.5)
[2018-03-09 04:18] LABS: ALANINE AMINOTRANSFERASE 35 U/L (21-72); ALBUMIN 3.1 g/dL (3.5-5.0); ALKALINE PHOSPHATASE 125 U/L (38-126); ASPARTATE AMINO TRANSFERASE 47 U/L (17-59); BILIRUBIN,DIRECT 0.7 mg/dL (0.0-0.4); BLOOD UREA NITROGEN 29 mg/dL (7-20); CALCIUM 7.8 mg/dL (8.4-10.2); CHLORIDE 91 mmol/L (98-107); GLUCOSE 119 mg/dL (75-110); POTASSIUM 3.7 mmol/L (3.6-5.0); SODIUM 143.3 mmol/L (137-145); TOTAL PROTEIN 5.2 g/dL (6.3-8.2)
[2018-03-09 04:29] LABS: ANION GAP 5 (5-19)
[2018-03-09 04:31] LABS: CARBON DIOXIDE 47 mmol/L (22-30)
[2018-03-09 04:40] LABS: ABSOLUTE LYMPHOCYTES# (MANUAL) 0.6 10^3/uL (0.5-4.7); ABSOLUTE MONOCYTES # (MANUAL) 0.5 10^3/uL (0.1-1.4); ABSOLUTE NEUTROPHILS# (MANUAL) 2.5 10^3/uL (1.7-8.2); ANISOCYTOSIS 1+; BASOPHILS % (MANUAL) 0 % (0-2); EOSINOPHILS % (MANUAL) 0 % (0-6); LYMPHOCYTES % (MANUAL) 16 % (13-45); MONOCYTES % (MANUAL) 13 % (3-13); PLATELET COMMENT ADEQUATE; PLATELET LARGE PRESENT; SCHISTOCYTES 1+; SEGMENTED NEUTROPHILS % (MAN) 70 % (42-78); TOTAL CELLS COUNTED 100
[2018-03-09] MEDS: HEPARIN SOD (PORCINE) 5,000 UNIT/ML 1 ML SYRINGE SUBCUT SCH ×3 (05:07→21:20)
[2018-03-09] MEDS: PIPERACILLIN SODIUM/TAZOBACTAM 3.375 GM in NORMAL SALINE 100 ML IV SCH ×4 (05:13→23:23)
[2018-03-09 06:00] LABS: ARTERIAL BLOOD BASE EXCESS 22.6 mmol/L; ARTERIAL BLOOD H2CO3 2.78 mmol/L (1.05-1.35); ARTERIAL BLOOD HCO3 52.2 mmol/L (20-24); ARTERIAL BLOOD O2 SATURATION 98.2 % (94-98); ARTERIAL BLOOD PH 7.37 (7.35-7.45); ARTERIAL BLOOD PO2 125.8 mmHg (80-100); ARTERIAL BLOOD TOTAL CO2 55.1 mmol/L (23-27)
[2018-03-09 06:04] LABS: ARTERIAL BLOOD FIO2 50%
[2018-03-09 06:05] LABS: ARTERIAL BLOOD PCO2 92.4 mmHg (35-45)
[2018-03-09] MEDS: INSULIN GLARGINE,HUM.REC.ANLOG 1,000 UNIT/10 ML UNIT SUBCUT SCH (07:54)
--- NOTE | 2018-03-09 08:19 | RADIOLOGY REPORT (SQ) ---
EXAM DESCRIPTION: CHEST SINGLE VIEW COMPLETED DATE/TIME: 03/09/2018 6:33 am REASON FOR STUDY: chronic resp failure COMPARISON: 03/02/2018 EXAM PARAMETERS: NUMBER OF VIEWS: One view. TECHNIQUE: Single frontal radiographic view of the chest acquired. RADIATION DOSE: NA LIMITATIONS: None. FINDINGS: LUNGS AND PLEURA: No focal consolidation. Prominent interstitial opacities. No significa nt pleural effusion. No pneumothorax. MEDIASTINUM AND HILAR STRUCTURES: No discrete mass. HEART AND VASCULAR STRUCTURES: Enlarged cardiac silhouette with central vascular congestion. BONES: No acute findings. HARDWARE: Right internal jugular central venous catheter tip overlies right atrium. Loop recorder ov erlies left chest. OTHER: No other significant finding. IMPRESSION: Enlarged cardiac silhouette with central vascular congestion and the mild interstitial e virgen. TECHNICAL DOCUMENTATION: JOB ID: [id number] [employer]- All Rights Reserved Reading location - IP/workstation name: [email or web address]
[2018-03-09] MEDS ORDERED: SUCCINYLCHOLINE CHLORIDE INJ 200 MG/10 ML VIAL ONE (09:04)
[2018-03-09] MEDS: FUROSEMIDE INJ/PF 40 MG/4 ML SDV IV SCH ×2 (09:27→17:10)
[2018-03-09] MEDS: NITROGLYCERIN 5 MG (0.2 MG/HR) PATCH.TD24 TD SCH (09:28)
[2018-03-09] MEDS: CARVEDILOL 6.25 MG TABLET PO SCH ×2 (09:29→10:08)
[2018-03-09] MEDS: ASPIRIN 81 MG TABLET, ENT COATED PO SCH ×2 (09:29→10:09)
[2018-03-09] MEDS: NYSTATIN TOPICAL POWDER 15 GM TP SCH ×2 (09:33→23:23)
[2018-03-09] MEDS ORDERED: LEVALBUTEROL HCL NEB 0.63 MG/3 ML AMPUL NEB PRN (09:39)
[2018-03-09 10:07] LABS: CREATINE KINASE MB 0.5 ng/mL (<4.55)
[2018-03-09 10:11] LABS: TROPONIN I 0.08 ng/mL
[2018-03-09] MEDS ORDERED: PHARMACY COMMUNICATION ORDER MC NR (10:30)
[2018-03-09] MEDS ORDERED: PROPOFOL 1,000 MG/100 ML INFUS..BTL IV ONE (10:35)
[2018-03-09] MEDS ORDERED: MIDAZOLAM HCL 50 MG/100 ML RTUINJ ONE (10:35)
--- NOTE | 2018-03-09 11:30 | RADIOLOGY REPORT (SQ) ---
EXAM DESCRIPTION: CHEST SINGLE VIEW COMPLETED DATE/TIME: 03/09/2018 11:10 am REASON FOR STUDY: ET placement COMPARISON: 03/09/2018 EXAM PARAMETERS: NUMBER OF VIEWS: One view. TECHNIQUE: Single frontal radiographic view of the chest acquired. RADIATION DOSE: NA LIMITATIONS: None. FINDINGS: LUNGS AND PLEURA: There appear to be prominent interstitial changes in the upper lobes mor e than lower lobes. No focal infiltrates are seen. No mass. No effusion. MEDIASTINUM AND HILAR STRUCTURES: No masses. Contour normal. HEART AND VASCULAR STRUCTURES: Heart size is borderline. There is no pulmonary edema. BONES: No acute findings. HARDWARE: An endotracheal tube has its tip 3 cm above the gerhard. A loop recorder is present. An in jection port is present on the right. OTHER: No other significant finding. IMPRESSION: Chronic lung changes with no acute cardiopulmonary findings. Endotracheal tube placemen t. TECHNICAL DOCUMENTATION: JOB ID: [id number] [employer]- All Rights Reserved Reading location - IP/workstation name: [email or web address]
[2018-03-09 11:52] LABS: ARTERIAL BLOOD H2CO3 1.72 mmol/L (1.05-1.35); ARTERIAL BLOOD HCO3 43.7 mmol/L (20-24); ARTERIAL BLOOD O2 SATURATION 92.1 % (94-98); ARTERIAL BLOOD PCO2 57.1 mmHg (35-45); ARTERIAL BLOOD PO2 59.2 mmHg (80-100); ARTERIAL BLOOD TOTAL CO2 45.5 mmol/L (23-27)
[2018-03-09 11:54] LABS: ARTERIAL BLOOD FIO2 35%
[2018-03-09] MEDS ORDERED: ACETAMINOPHEN 325 MG TABLET NG PRN (12:00)
[2018-03-09] MEDS ORDERED: MAG HYDROX/AL HYDROX/SIMETH SUSP 30 ML UDCUP NG PRN (12:00)
[2018-03-09] MEDS ORDERED: DEXTROSE 40% GEL 15 GM TUBE NG PRN ×2 (12:00)
[2018-03-09] MEDS ORDERED: MAGNESIUM HYDROXIDE SUSP 30 ML UDCUP NG PRN (12:00)
[2018-03-09] MEDS: PROPOFOL 1,000 MG/100 ML INFUS..BTL IV PRN ×2 (12:55→16:49)
[2018-03-09] MEDS: LEVALBUTEROL HCL NEB 1.25 MG/3 ML AMPUL NEB SCH ×2 (13:46→20:08)
[2018-03-09] MEDS ORDERED: NORMAL SALINE INJ/PF 0.9% 10 ML SDV IV PRN (14:13)
--- NOTE | 2018-03-09 14:39 | RADIOLOGY REPORT (SQ) ---
EXAM DESCRIPTION: CHEST SINGLE VIEW COMPLETED DATE/TIME: 03/09/2018 2:26 pm REASON FOR STUDY: Confirm Central line N39.0 URINARY TRACT INFECTION, SITE NOT SPECIFIED I50.22 CH RONIC SYSTOLIC (CONGESTIVE) HEART FAILURE I50.20 UNSPECIFIED SYSTOLIC (CONGESTIVE) HEART FAILURE COMPARISON: 03/09/2018 1057 hours NUMBER OF VIEWS: One view. TECHNIQUE: Single frontal radiographic view of the chest acquired. LIMITATIONS: None. FINDINGS: Central venous access catheter placed via left IJ approach. Catheter tip at right atrium . No pneumothorax. Radiographic appearance of the chest otherwise stable. IMPRESSION: CENTRAL VENOUS ACCESS CATHETER IN APPROPRIATE LOCATION. NO PNEUMOTHORAX. NEW CENTRAL L INE. TECHNICAL DOCUMENTATION: JOB ID: [id number] [employer]- All Rights Reserved Reading location - IP/workstation name: [email or web address]
--- NOTE | 2018-03-09 14:40 | RADIOLOGY REPORT (SQ) ---
EXAM DESCRIPTION: KUB/ABDOMEN (SINGLE VIEW) COMPLETED DATE/TIME: 03/09/2018 2:26 pm REASON FOR STUDY: NG Tube placement COMPARISON: None. TECHNIQUE: AP image at the thoracoabdominal junction LIMITATIONS: None. FINDINGS: Nasogastric tube tip in the stomach. IMPRESSION: Nasogastric tube tip in the stomach. TECHNICAL DOCUMENTATION: JOB ID: [id number] [employer]- All Rights Reserved Reading location - IP/workstation name: [email or web address]
[2018-03-09] MEDS: GABAPENTIN 300 MG CAPSULE NG SCH ×2 (14:58→21:51)
--- NOTE | 2018-03-09 15:17 | OPERATIVE REPORT E ---
Operative Report NAME: THEODORE SON : 1950 AGE: 67Y DATE OF SURGERY: 03/09/2018 ROOM: 612 PREOPERATIVE DIAGNOSIS: POOR VEINS FOR INTRAVENOUS ACCESS. NEEDED CENTRAL LINE. POSTOPERATIVE DIAGNOSIS: POOR VEINS FOR INTRAVENOUS ACCESS. NEEDED CENTRAL LINE. OPERATION: PLACEMENT OF LEFT INTERNAL JUGULAR VEIN TRIPLE LUMEN CATHETER UNDER ULTRASOUND GUIDANCE. SURGEON: MAIN OLIVAS M.D. ANESTHESIA: Local. INDICATION: This 67-year-old male is intubated for severe COPD and needed IV access. He has one port, but needed more lines for medications and he is markedly obese and unable to obtain a peripheral line. PROCEDURE: The patient was placed in slight Trendelenburg position. The left neck was prepped and draped in the usual sterile fashion. With the use of the ultrasound, the left internal jugular vein was then identified. Local anesthesia infiltrated and left internal jugular vein subsequently punctured and guidewire passed through the needle toward the area of the superior vena cava. The puncture site was then dilated and a triple lumen catheter inserted through the guidewire to a distance of about 18 cm. All three ports aspirated blood easily and instilled saline easily. The catheter was then anchored to the skin with 3-0 silk. A Biopatch was placed at the insertion site and a transparent sterile dressing was then placed over the Biopatch and catheter. A chest x-ray was then obtained and noted the catheter right in the superior cava and no evidence of pneumothorax. The patient tolerated the procedure well. DICTATING PHYSICIAN: MAIN OLIVAS M.D. [id number] PHY#: [id number] ID: [id number] JOB#: [id number] ACCT: [id number] cc:MAIN OLIVAS M.D. >
[2018-03-09 15:46] LABS: ARTERIAL BLOOD BASE EXCESS 21.5 mmol/L; ARTERIAL BLOOD H2CO3 1.88 mmol/L (1.05-1.35); ARTERIAL BLOOD HCO3 47.9 mmol/L (20-24); ARTERIAL BLOOD O2 SATURATION 92.4 % (94-98); ARTERIAL BLOOD PCO2 62.4 mmHg (35-45); ARTERIAL BLOOD PO2 60.7 mmHg (80-100); ARTERIAL BLOOD TOTAL CO2 49.8 mmol/L (23-27)
[2018-03-09 15:48] LABS: ARTERIAL BLOOD FIO2 40%
[2018-03-09 16:17] LABS: CREATINE KINASE MB 0.3 ng/mL (<4.55); TROPONIN I 0.067 ng/mL
--- NOTE | 2018-03-09 17:10 | PDOC PROGRESS REPORT ---
Subjective Progress Note for:: 03/09/18 Reason For Visit: CHF Physical Exam Vital Signs: Temp Pulse Resp BP Pulse Ox 99.4 F 63 14 95/53 L 92 03/09/18 16:00 03/09/18 16:00 03/09/18 16:00 03/09/18 16:00 03/09/18 16:00 Intake & Output 03/08/18 03/09/18 03/10/18 06:59 06:59 06:59 Intake Total 238 300 290 Output Total 1852024 717 Balance -1612 -1725 -425 Weight 294 lb 15.656 oz 281 lb 1.43 oz Results Laboratory Results: 03/09/18 03:51 03/09/18 03:51 03/09/18 03/09/18 03/09/18 03:51 03:51 03:51 WBC 3.5 L RBC 4.25 L Hgb 10.7 L Hct 34.8 L MCV 82 MCH 25.3 L MCHC 30.9 L RDW 17.9 H Plt Count 121 L Seg Neutrophils % Not Reportable Lymphocytes % Not Reportable Monocytes % Not Reportable Eosinophils % Not Reportable Basophils % Not Reportable Absolute Neutrophils Not Reportable Absolute Lymphocytes Not Reportable Absolute Monocytes Not Reportable Absolute Eosinophils Not Reportable Absolute Basophils Not Reportable Carbonic Acid HCO3/H2CO3 Ratio ABG pH ABG pCO2 ABG pO2 ABG HCO3 ABG O2 Saturation ABG Base Excess FiO2 Sodium 143.3 Potassium 3.7 Chloride 91 L Carbon Dioxide 47 H* Anion Gap 5 BUN 29 H Creatinine 0.85 Est GFR ( Amer) > 60 Est GFR (Non-Af Amer) > 60 Glucose 119 H Lactic Acid 0.8 Calcium 7.8 L Magnesium 1.9 Total Bilirubin 1.0 AST 47 ALT 35 Alkaline Phosphatase 125 Ammonia Total Protein 5.2 L Albumin 3.1 L 03/09/18 03/09/18 03/09/18 03:51 05:22 05:49 WBC RBC Hgb Hct MCV MCH MCHC RDW Plt Count Seg Neutrophils % Lymphocytes % Monocytes % Eosinophils % Basophils % Absolute Neutrophils Absolute Lymphocytes Absolute Monocytes Absolute Eosinophils Absolute Basophils Carbonic Acid Cancelled 2.78 H HCO3/H2CO3 Ratio Cancelled 18:1 ABG pH Cancelled 7.37 ABG pCO2 Cancelled 92.4 H* ABG pO2 Cancelled 125.8 H ABG HCO3 Cancelled 52.2 H ABG O2 Saturation Cancelled 98.2 H ABG Base Excess Cancelled 22.6 FiO2 Cancelled 50% Sodium Potassium Chloride Carbon Dioxide Anion Gap BUN Creatinine Est GFR ( Amer) Est GFR (Non-Af Amer) Glucose Lactic Acid Calcium Magnesium Total Bilirubin AST ALT Alkaline Phosphatase Ammonia 11.4 Total Protein Albumin 03/09/18 03/09/18 11:38 15:27 WBC RBC Hgb Hct MCV MCH MCHC RDW Plt Count Seg Neutrophils % Lymphocytes % Monocytes % Eosinophils % Basophils % Absolute Neutrophils Absolute Lymphocytes Absolute Monocytes Absolute Eosinophils Absolute Basophils Carbonic Acid 1.72 H 1.88 H HCO3/H2CO3 Ratio 25:1 25:1 ABG pH 7.50 H 7.50 H ABG pCO2 57.1 H 62.4 H ABG pO2 59.2 L 60.7 L ABG HCO3 43.7 H 47.9 H ABG O2 Saturation 92.1 L 92.4 L ABG Base Excess 18.0 21.5 FiO2 35% 40% Sodium Potassium Chloride Carbon Dioxide Anion Gap BUN Creatinine Est GFR ( Amer) Est GFR (Non-Af Amer) Glucose Lactic Acid Calcium Magnesium Total Bilirubin AST ALT Alkaline Phosphatase Ammonia Total Protein Albumin 03/02/18 03/02/18 03/02/18 18:56 21:12 22:37 Creatine Kinase 30 L CK-MB (CK-2) Troponin I 0.029 0.034 NT-Pro-B Natriuret Pep 3470 H 03/02/18 03/03/18 03/03/18 22:37 04:24 04:24 Creatine Kinase 25 L CK-MB (CK-2) 0.92 0.82 Troponin I 0.036 0.034 NT-Pro-B Natriuret Pep 03/03/18 03/03/18 03/04/18 10:40 10:40 05:22 Creatine Kinase 24 L CK-MB (CK-2) 0.62 Troponin I 0.018 NT-Pro-B Natriuret Pep 3140 H 03/05/18 03/06/18 03/08/18 05:08 04:58 16:14 Creatine Kinase CK-MB (CK-2) Troponin I NT-Pro-B Natriuret Pep 2970 H 3340 H 7920 H 03/09/18 03/09/18 03/09/18 09:30 09:30 15:27 Creatine Kinase 49 L 39 L CK-MB (CK-2) 0.50 Troponin I 0.080 NT-Pro-B Natriuret Pep 03/09/18 15:27 Creatine Kinase CK-MB (CK-2) 0.30 Troponin I 0.067 NT-Pro-B Natriuret Pep Impressions: Chest X-Ray 03/09/18 14:00 IMPRESSION: CENTRAL VENOUS ACCESS CATHETER IN APPROPRIATE LOCATION. NO PNEUMOTHORAX. NEW CENTRAL LINE. KUB X-Ray 03/09/18 14:15 IMPRESSION: Nasogastric tube tip in the stomach. Assessment & Plan - Diagnosis (1) Cellulitis Is this a current diagnosis for this admission?: Yes Plan: Noted at the base of his penis -with a small shallow ulcer-continue with Zosyn at this time. The erythema seems to have improved somewhat. (2) Acute respiratory failure with hypoxia and hypercapnia Is this a current diagnosis for this admission?: Yes Plan: Most likely secondary to COPD exacerbation versus heart failure. He is hypercapnic and hypoxic and was started on BiPAP. This morning I spoke with Dr. Finney and we have decided to intubate patient to protect his airway. Currently he is ventilator dependent. I appreciate assistance from Dr. Finney to manage his vent. He was on the ventilator about a year or 2 ago and was on it for 2 weeks before being transitioned to a trach collar for another 3 weeks. Given his long history of smoking it will be difficult to wean him off the vent and family is aware of this. (3) COPD (chronic obstructive pulmonary disease) with emphysema Qualifiers: Emphysema type: centrilobular Qualified Code(s): J43.2 - Centrilobular emphysema Is this a current diagnosis for this admission?: Yes Plan: See plan above for acute respiratory failure. As per he was on a ventilator for respiratory failure for about 2 weeks and then ended up with a trach for another 3 weeks. states that he stopped smoking after that for about 9 months but then he went back to smoking 2 pack a day in the last 2 months. As per family he has been walking for over 50 years and started at the age of 14. (4) Morbid obesity with alveolar hypoventilation Is this a current diagnosis for this admission?: Yes Plan: Pulmonology is consulted (5) PATEL (obstructive sleep apnea) Is this a current diagnosis for this admission?: Yes Plan: Noted (6) Acute exacerbation of CHF (congestive heart failure) Qualifiers: Heart failure type: unspecified Qualified Code(s): I50.9 - Heart failure, unspecified Is this a current diagnosis for this admission?: Yes Plan: His BNP was elevated greater than 7000 today. He was on Lasix 20 mg twice daily and I have switched him back to 40 mg IV twice daily. Monitor I's and O's and daily weights. Echocardiogram done during this admission showed EF of 55% to likely has diastolic heart failure. He is having good urine output at this time. We will continue to diurese him and then slow down. At home he is on 80 mg of Lasix twice a day. (7) Ventilator dependent Is this a current diagnosis for this admission?: Yes - Time Total Critical Time (Minutes): 34
--- NOTE | 2018-03-09 19:39 | EKG REPORT ---
SEVERITY:- ABNORMAL ECG - SINUS RHYTHM RIGHT BUNDLE BRANCH BLOCK INFERIOR INFARCT, OLD ANTERIOR INFARCT, AGE INDETERMINATE : Confirmed by: Corina Moura MD 09-Mar-2018 19:38:50
[2018-03-09] MEDS ORDERED: NORMAL SALINE 500 ML IV ONE (21:15)
[2018-03-09] MEDS: CARVEDILOL 6.25 MG TABLET NG SCH (21:19)
[2018-03-09] MEDS: SIMVASTATIN 10 MG TABLET NG SCH (21:51)
[2018-03-09 22:56] LABS: TROPONIN I 0.072 ng/mL
[2018-03-09 23:04] LABS: CREATINE KINASE MB < 0.22 ng/mL (<4.55)
--- NOTE | 2018-03-09 23:31 | PDOC CONSULTATION ---
Consultation-Blank Consultation: CARDIOLOGY CONSULTATION by Dr. Corina Moura on 03/09/2018. Patient seen at 10:15 AM on 03/09/2018. Reason FOR CONSULTATION: Patient with hypoxic respiratory failure being intubated, with runs of nonsustained ventricular tachycardia.
[2018-03-09] MEDS: MIDAZOLAM HCL 50 MG/100 ML RTUINJ IV PRN (23:58)
[2018-03-10] MEDS: LEVALBUTEROL HCL NEB 1.25 MG/3 ML AMPUL NEB SCH ×4 (01:31→22:04)
[2018-03-10] MEDS: GABAPENTIN 300 MG CAPSULE NG SCH ×4 (03:56→21:53)
[2018-03-10 04:32] LABS: ABSOLUTE LYMPHOCYTES (AUTO) 0.4 10^3/uL (0.5-4.7); ABSOLUTE MONOCYTES (AUTO) 0.5 10^3/uL (0.1-1.4); ABSOLUTE NEUT (AUTO) 2.8 10^3/uL (1.7-8.2); BASOPHILS % (AUTO) 0.6 % (0-2); HEMATOCRIT 31.9 % (37.9-51.0); HEMOGLOBIN 9.9 g/dL (13.5-17.0); LYMPHOCYTES % (AUTO) 11.2 % (13-45); MEAN CORPUSCULAR HEMOGLOBIN 25.2 pg (27.0-33.4); MEAN CORPUSCULAR HGB CONC 30.9 g/dL (32.0-36.0); MEAN CORPUSCULAR VOLUME 81 fl (80-97); MONOCYTES % (AUTO) 14.1 % (3-13); PLATELET COUNT 103 10^3/uL (150-450); RED BLOOD COUNT 3.92 10^6/uL (4.35-5.55); SEGMENTED NEUTROPHILS % (AUTO) 73.1 % (42-78); TOTAL CELLS COUNTED % (AUTO) 100 %; WHITE BLOOD COUNT 3.8 10^3/uL (4.0-10.5)
[2018-03-10 04:44] LABS: ALANINE AMINOTRANSFERASE 35 U/L (21-72); ALBUMIN 2.8 g/dL (3.5-5.0); ALKALINE PHOSPHATASE 104 U/L (38-126); ASPARTATE AMINO TRANSFERASE 44 U/L (17-59); BILIRUBIN,DIRECT 0.7 mg/dL (0.0-0.4); BLOOD UREA NITROGEN 33 mg/dL (7-20); CALCIUM 7.4 mg/dL (8.4-10.2); CHLORIDE 93 mmol/L (98-107); GLUCOSE 90 mg/dL (75-110); POTASSIUM 3.4 mmol/L (3.6-5.0); SODIUM 143.1 mmol/L (137-145); TOTAL PROTEIN 4.8 g/dL (6.3-8.2); TRIGLYCERIDES 178 mg/dL (<150)
[2018-03-10 05:06] LABS: ANION GAP 2 (5-19)
[2018-03-10 05:08] LABS: CARBON DIOXIDE 48 mmol/L (22-30)
[2018-03-10] MEDS: HEPARIN SOD (PORCINE) 5,000 UNIT/ML 1 ML SYRINGE SUBCUT SCH ×3 (05:44→21:45)
[2018-03-10] MEDS: PIPERACILLIN SODIUM/TAZOBACTAM 3.375 GM in NORMAL SALINE 100 ML IV SCH ×4 (05:45→23:47)
[2018-03-10 06:08] LABS: ARTERIAL BLOOD BASE EXCESS 18.5 mmol/L; ARTERIAL BLOOD H2CO3 2.25 mmol/L (1.05-1.35); ARTERIAL BLOOD HCO3 47.3 mmol/L (20-24); ARTERIAL BLOOD O2 SATURATION 93.5 % (94-98); ARTERIAL BLOOD PH 7.42 (7.35-7.45); ARTERIAL BLOOD PO2 69.9 mmHg (80-100); ARTERIAL BLOOD TOTAL CO2 49.6 mmol/L (23-27)
[2018-03-10 06:12] LABS: ARTERIAL BLOOD FIO2 455
[2018-03-10 06:13] LABS: ARTERIAL BLOOD PCO2 74.9 mmHg (35-45)
[2018-03-10 07:49] LABS: ARTERIAL BLOOD BASE EXCESS 19.4 mmol/L; ARTERIAL BLOOD FIO2 45%; ARTERIAL BLOOD H2CO3 1.74 mmol/L (1.05-1.35); ARTERIAL BLOOD HCO3 45.1 mmol/L (20-24); ARTERIAL BLOOD O2 SATURATION 90.9 % (94-98); ARTERIAL BLOOD PCO2 57.8 mmHg (35-45); ARTERIAL BLOOD PH 7.51 (7.35-7.45); ARTERIAL BLOOD TOTAL CO2 46.9 mmol/L (23-27)
--- NOTE | 2018-03-10 07:57 | RADIOLOGY REPORT (SQ) ---
EXAM DESCRIPTION: X-ray single view chest. CLINICAL HISTORY: 67 years Male, resp failure COMPARISON: The prior studies were not available for comparison at this time. TECHNIQUE: Single portable view of the chest performed on 03/10/2018 at 6:17 AM FINDINGS: The lungs are well expanded. There is very mild perihilar opacification bilaterally. No dense airspace consolidation is seen. There is no evidence of a pneumothorax. The cardiac silhouette is prominent and may be accentuated by the portable technique. A heart rate monitor projects over the left hemithorax. The mediastinal contours are normal. No acute osseous abnormality is identified. There are multiple splenic granulomas. Lines and tubes: The endotracheal tube terminates just below the clavicular heads. The feeding tube extends below the diaphragm. The right IJ central venous catheter tip projects over the region of the cavoatrial junction and the left IJ central venous catheter tip projects over the proximal superior vena cava. IMPRESSION: 1. Mild perihilar opacification bilaterally which may reflect edema. 2. Life support lines and tubes present as described above.
[2018-03-10] MEDS: INSULIN GLARGINE,HUM.REC.ANLOG 1,000 UNIT/10 ML UNIT SUBCUT SCH (09:08)
[2018-03-10] MEDS: NITROGLYCERIN 5 MG (0.2 MG/HR) PATCH.TD24 TD SCH (09:54)
[2018-03-10] MEDS: CARVEDILOL 6.25 MG TABLET NG SCH ×2 (09:55→21:53)
[2018-03-10] MEDS: ASPIRIN 81 MG TABLET, CHEWABLE NG SCH (09:56)
[2018-03-10 10:04] LABS: ARTERIAL BLOOD BASE EXCESS 20.7 mmol/L; ARTERIAL BLOOD H2CO3 1.96 mmol/L (1.05-1.35); ARTERIAL BLOOD HCO3 47.4 mmol/L (20-24); ARTERIAL BLOOD O2 SATURATION 93.5 % (94-98); ARTERIAL BLOOD PCO2 65.2 mmHg (35-45); ARTERIAL BLOOD PH 7.48 (7.35-7.45); ARTERIAL BLOOD TOTAL CO2 49.4 mmol/L (23-27)
[2018-03-10 10:06] LABS: ARTERIAL BLOOD FIO2 45%
[2018-03-10] MEDS: NORMAL SALINE 1000 ML 1,000 ML IV PRN (10:26)
[2018-03-10] MEDS: NYSTATIN TOPICAL POWDER 15 GM TP SCH ×2 (10:27→22:00)
--- NOTE | 2018-03-10 10:41 | PDOC PROGRESS REPORT ---
Subjective Progress Note for:: 03/10/18 Subjective:: spoke with family at bedside- discussed about this care in detail. explained to about our plan today with patient. answered all her questions. i explained to her that his prognosis remains guarded- he's critically ill-she verbalized understanding Reason For Visit: CHF Physical Exam Vital Signs: Temp Pulse Resp BP Pulse Ox 98.6 F 62 16 125/58 L 95 03/10/18 08:00 03/10/18 08:56 03/10/18 10:00 03/10/18 09:56 03/10/18 10:00 Intake & Output 03/09/18 03/10/18 03/11/18 06:59 06:59 06:59 Intake Total 300 1154 Output Total 2024 1270 50 Balance -1725 -116 -50 Weight 281 lb 1.43 oz 284 lb 13.396 oz General appearance: PRESENT: no acute distress, morbidly obese, other - ventilator dependent Head exam: PRESENT: atraumatic, normocephalic Eye exam: ABSENT: conjunctival injection, scleral icterus Ear exam: PRESENT: normal external ear exam Neck exam: ABSENT: tracheal deviation Respiratory exam: PRESENT: clear to auscultation ernesto, symmetrical Cardiovascular exam: PRESENT: +S1, +S2 Pulses: PRESENT: other - unable to palpate pedal pulses GI/Abdominal exam: PRESENT: normal bowel sounds, soft. ABSENT: tenderness Gentrourinary exam: PRESENT: other - hernandez noted Neurological exam: PRESENT: other - ventilator dependent Skin exam: PRESENT: dry, erythema - erythema at the base of penis, warm Results Laboratory Results: 03/10/18 04:12 03/10/18 04:12 03/09/18 03/09/18 03/10/18 11:38 15:27 04:12 WBC 3.8 L RBC 3.92 L Hgb 9.9 L Hct 31.9 L MCV 81 MCH 25.2 L MCHC 30.9 L RDW 18.0 H Plt Count 103 L Seg Neutrophils % 73.1 Lymphocytes % 11.2 L Monocytes % 14.1 H Eosinophils % 1.0 Basophils % 0.6 Absolute Neutrophils 2.8 Absolute Lymphocytes 0.4 L Absolute Monocytes 0.5 Absolute Eosinophils 0.0 Absolute Basophils 0.0 Carbonic Acid 1.72 H 1.88 H HCO3/H2CO3 Ratio 25:1 25:1 ABG pH 7.50 H 7.50 H ABG pCO2 57.1 H 62.4 H ABG pO2 59.2 L 60.7 L ABG HCO3 43.7 H 47.9 H ABG O2 Saturation 92.1 L 92.4 L ABG Base Excess 18.0 21.5 FiO2 35% 40% Sodium Potassium Chloride Carbon Dioxide Anion Gap BUN Creatinine Est GFR ( Amer) Est GFR (Non-Af Amer) Glucose Calcium Magnesium Total Bilirubin AST ALT Alkaline Phosphatase Total Protein Albumin Triglycerides 03/10/18 03/10/18 03/10/18 04:12 05:35 07:40 WBC RBC Hgb Hct MCV MCH MCHC RDW Plt Count Seg Neutrophils % Lymphocytes % Monocytes % Eosinophils % Basophils % Absolute Neutrophils Absolute Lymphocytes Absolute Monocytes Absolute Eosinophils Absolute Basophils Carbonic Acid 2.25 H 1.74 H HCO3/H2CO3 Ratio 21:1 25:1 ABG pH 7.42 7.51 H ABG pCO2 74.9 H* 57.8 H ABG pO2 69.9 L 56.0 L ABG HCO3 47.3 H 45.1 H ABG O2 Saturation 93.5 L 90.9 L ABG Base Excess 18.5 19.4 FiO2 455 45% Sodium 143.1 Potassium 3.4 L Chloride 93 L Carbon Dioxide 48 H* Anion Gap 2 L BUN 33 H Creatinine 1.18 Est GFR ( Amer) > 60 Est GFR (Non-Af Amer) > 60 Glucose 90 Calcium 7.4 L Magnesium 1.9 Total Bilirubin 1.0 AST 44 ALT 35 Alkaline Phosphatase 104 Total Protein 4.8 L Albumin 2.8 L Triglycerides 178 H 03/10/18 09:45 WBC RBC Hgb Hct MCV MCH MCHC RDW Plt Count Seg Neutrophils % Lymphocytes % Monocytes % Eosinophils % Basophils % Absolute Neutrophils Absolute Lymphocytes Absolute Monocytes Absolute Eosinophils Absolute Basophils Carbonic Acid 1.96 H HCO3/H2CO3 Ratio 24:1 ABG pH 7.48 H ABG pCO2 65.2 H ABG pO2 66.0 L ABG HCO3 47.4 H ABG O2 Saturation 93.5 L ABG Base Excess 20.7 FiO2 45% Sodium Potassium Chloride Carbon Dioxide Anion Gap BUN Creatinine Est GFR ( Amer) Est GFR (Non-Af Amer) Glucose Calcium Magnesium Total Bilirubin AST ALT Alkaline Phosphatase Total Protein Albumin Triglycerides 03/02/18 03/02/18 03/02/18 18:56 21:12 22:37 Creatine Kinase 30 L CK-MB (CK-2) Troponin I 0.029 0.034 NT-Pro-B Natriuret Pep 3470 H 03/02/18 03/03/18 03/03/18 22:37 04:24 04:24 Creatine Kinase 25 L CK-MB (CK-2) 0.92 0.82 Troponin I 0.036 0.034 NT-Pro-B Natriuret Pep 03/03/18 03/03/18 03/04/18 10:40 10:40 05:22 Creatine Kinase 24 L CK-MB (CK-2) 0.62 Troponin I 0.018 NT-Pro-B Natriuret Pep 3140 H 03/05/18 03/06/18 03/08/18 05:08 04:58 16:14 Creatine Kinase CK-MB (CK-2) Troponin I NT-Pro-B Natriuret Pep 2970 H 3340 H 7920 H 03/09/18 03/09/18 03/09/18 09:30 09:30 15:27 Creatine Kinase 49 L 39 L CK-MB (CK-2) 0.50 Troponin I 0.080 NT-Pro-B Natriuret Pep 03/09/18 03/09/18 03/09/18 15:27 22:06 22:06 Creatine Kinase 30 L CK-MB (CK-2) 0.30 < 0.22 Troponin I 0.067 0.072 NT-Pro-B Natriuret Pep Impressions: KUB X-Ray 03/09/18 14:15 IMPRESSION: Nasogastric tube tip in the stomach. Chest X-Ray 03/10/18 06:00 IMPRESSION: 1. Mild perihilar opacification bilaterally which may reflect edema. 2. Life support lines and tubes present as described above. Assessment & Plan - Diagnosis (1) Cellulitis Is this a current diagnosis for this admission?: Yes Plan: Noted at the base of his penis -with a small shallow ulcer-started on zosyn. The erythema seems to have improved somewhat. wound culture sent and pending (2) Acute respiratory failure with hypoxia and hypercapnia Is this a current diagnosis for this admission?: Yes Plan: Secondary to COPD exacerbation versus heart failure. He is hypercapnic and hypoxic and was started on BiPAP. Dr Finney is managing his vent - i appreciate his help. his ABG this early this morning showed some increased pCO2 so his rate was increased by overnight physician. but repeat ABG shows increase pH- dr Finney has lowered his rate again to 12. PEEP of 5, FiO2 35%, VT 500. his pO2 is low but his Sa O2 is >90%- seems to have a V/Q mismatch - ?PE- i have spoken to Dr Finney about this- he will evaluate patient and make his recommendations. repeat ABG this morning. Of note- he was on the ventilator about a year or 2 ago and was on it for 2 weeks before being transitioned to a trach collar for another 3 weeks. Given his long history of smoking it will be difficult to wean him off the vent and family is aware of this.r (3) COPD (chronic obstructive pulmonary disease) with emphysema Qualifiers: Emphysema type: centrilobular Qualified Code(s): J43.2 - Centrilobular emphysema Is this a current diagnosis for this admission?: Yes Plan: See plan above for acute respiratory failure. continue with Xopenex- not sure why his symbicort is not administered- will need to speak with Dr Finney about this tomorrow. As per he was on a ventilator for respiratory failure for about 2 weeks and then ended up with a trach for another 3 weeks. states that he stopped smoking after that for about 9 months but then he went back to smoking 2 pack a day in the last 2 months. As per family he has been walking for over 50 years and started at the age of 14. (4) Morbid obesity with alveolar hypoventilation Is this a current diagnosis for this admission?: Yes Plan: note. Pulmonology is consulted (5) PATEL (obstructive sleep apnea) Is this a current diagnosis for this admission?: Yes Plan: Noted (6) Acute exacerbation of CHF (congestive heart failure) Qualifiers: Heart failure type: unspecified Qualified Code(s): I50.9 - Heart failure, unspecified Is this a current diagnosis for this admission?: Yes Plan: His BNP was elevated greater than 7000 today. i have stopped his Lasix since it seems that now he's having some contraction alkalosis- with no PO or IV fluid intake he's becoming too dry- before he was some what volume overloaded. at home he was on lasix 80mg BID and he was getting IV lasix 40mg BID. I have started him on a little bit of fluid at 50cc for one day and see how he does Monitor I's and O's and daily weights. Echocardiogram done during this admission showed EF of 55% to likely has diastolic heart failure. We will continue to diurese him and then slow down. . (7) Ventilator dependent Is this a current diagnosis for this admission?: Yes Plan: see plan above (8) Arrhythmia Is this a current diagnosis for this admission?: Yes Plan: he was having unsustained VT's and his HR overnight also dropped below 50. now he's doing better with HR in the 60-70s. Dr Finney consulted Cardiology for assistance. i appreciate cardiology recommendations. - Time Total Critical Time (Minutes): 34 Medications reviewed and adjusted accordingly: Yes - Inpatient Certification Based on my medical assessment, after consideration of the patient's comorbidities, presenting symptoms, or acuity I expect that the services needed warrant INPATIENT care.: Yes I certify that my determination is in accordance with my understanding of Medicare's requirements for reasonable and necessary INPATIENT services [42 CFR 412.3e].: Yes Medical Necessity: Significant Comorbidiites Make Outpatient Treatment Too Risky, Need Close Monitoring Due to Risk of Patient Decompensation, Need For IV Fluids, Need For Continuous Telemetry Monitoring, Need for IV Antibiotics, Risk of Complication if Not Cared For in Hospital
[2018-03-10] MEDS: MIDAZOLAM HCL 50 MG/100 ML RTUINJ IV PRN ×2 (11:46→20:34)
[2018-03-10] MEDS: SIMVASTATIN 10 MG TABLET NG SCH (21:53)
[2018-03-11] MEDS: LEVALBUTEROL HCL NEB 1.25 MG/3 ML AMPUL NEB SCH ×4 (01:20→20:15)
[2018-03-11] MEDS: GABAPENTIN 300 MG CAPSULE NG SCH ×4 (02:50→23:29)
[2018-03-11 04:49] LABS: ARTERIAL BLOOD H2CO3 2.01 mmol/L (1.05-1.35); ARTERIAL BLOOD O2 SATURATION 94.7 % (94-98); ARTERIAL BLOOD PCO2 66.8 mmHg (35-45); ARTERIAL BLOOD PH 7.44 (7.35-7.45); ARTERIAL BLOOD PO2 73.6 mmHg (80-100); ARTERIAL BLOOD TOTAL CO2 46.1 mmol/L (23-27)
[2018-03-11 04:50] LABS: ARTERIAL BLOOD FIO2 45%
[2018-03-11 04:54] LABS: ABSOLUTE EOSINOPHILS # (AUTO) 0.1 10^3/uL (0.0-0.6); ABSOLUTE LYMPHOCYTES (AUTO) 0.5 10^3/uL (0.5-4.7); ABSOLUTE MONOCYTES (AUTO) 0.5 10^3/uL (0.1-1.4); ABSOLUTE NEUT (AUTO) 3.3 10^3/uL (1.7-8.2); BASOPHILS % (AUTO) 0.6 % (0-2); EOSINOPHILS % (AUTO) 2.7 % (0-6); HEMOGLOBIN 9.7 g/dL (13.5-17.0); LYMPHOCYTES % (AUTO) 12.1 % (13-45); MEAN CORPUSCULAR HEMOGLOBIN 25.5 pg (27.0-33.4); MEAN CORPUSCULAR HGB CONC 31.1 g/dL (32.0-36.0); MEAN CORPUSCULAR VOLUME 82 fl (80-97); MONOCYTES % (AUTO) 10.7 % (3-13); RED BLOOD COUNT 3.78 10^6/uL (4.35-5.55); RED CELL DISTRIBUTION WIDTH 17.9 % (11.5-14.0); SEGMENTED NEUTROPHILS % (AUTO) 73.9 % (42-78); TOTAL CELLS COUNTED % (AUTO) 100 %; WHITE BLOOD COUNT 4.4 10^3/uL (4.0-10.5)
[2018-03-11 04:57] LABS: ALANINE AMINOTRANSFERASE 39 U/L (21-72); ALBUMIN 2.6 g/dL (3.5-5.0); ALKALINE PHOSPHATASE 109 U/L (38-126); ASPARTATE AMINO TRANSFERASE 50 U/L (17-59); BILIRUBIN,DIRECT 0.6 mg/dL (0.0-0.4); BLOOD UREA NITROGEN 30 mg/dL (7-20); CHLORIDE 96 mmol/L (98-107); GLUCOSE 119 mg/dL (75-110); POTASSIUM 3.1 mmol/L (3.6-5.0); SODIUM 144.2 mmol/L (137-145); TOTAL PROTEIN 4.5 g/dL (6.3-8.2)
[2018-03-11 05:10] LABS: PLATELET COUNT 96 10^3/uL (150-450)
[2018-03-11] MEDS: HEPARIN SOD (PORCINE) 5,000 UNIT/ML 1 ML SYRINGE SUBCUT SCH ×3 (05:16→21:18)
[2018-03-11] MEDS: PIPERACILLIN SODIUM/TAZOBACTAM 3.375 GM in NORMAL SALINE 100 ML IV SCH ×4 (05:17→23:28)
[2018-03-11 05:21] LABS: ANION GAP 1 (5-19); CARBON DIOXIDE 47 mmol/L (22-30)
[2018-03-11] MEDS: MIDAZOLAM HCL 50 MG/100 ML RTUINJ IV PRN ×3 (05:21→19:47)
[2018-03-11] MEDS: NORMAL SALINE 1000 ML 1,000 ML IV PRN (07:43)
--- NOTE | 2018-03-11 08:33 | RADIOLOGY REPORT (SQ) ---
EXAM DESCRIPTION: CHEST SINGLE VIEW COMPLETED DATE/TIME: 03/11/2018 7:04 am REASON FOR STUDY: resp failure COMPARISON: CT CHEST 01/26/2018 CHEST FILMS 03/02/2018, 03/09/2018, 03/10/2018 EXAM PARAMETERS: NUMBER OF VIEWS: One view. TECHNIQUE: Single frontal radiographic view of the chest acquired. RADIATION DOSE: NA LIMITATIONS: None. FINDINGS: LUNGS AND PLEURA: Diffuse right basilar airspace disease atelectasis versus pneumonia. Th is is new compared to 03/10/2018 0615 hours Left lung clear. No gross pleural effusion or pneumothorax. MEDIASTINUM AND HILAR STRUCTURES: No masses. Contour normal. HEART AND VASCULAR STRUCTURES: Stable cardiomegaly BONES: No acute findings. HARDWARE: Endotracheal tube tip 5 cm above the gerhard. Left-sided triple-lumen catheter tip in the s uperior vena cava. Right permanent central line tip in the right atrium. Nasogastric tube tip and s francesco port below the hemidiaphragms. Implanted left anterior chest cardiac monitoring device OTHER: No other significant finding. IMPRESSION: Right middle and lower lobe partial collapse and consolidation, new compared to 9. Tubes and lines in good positioning. TECHNICAL DOCUMENTATION: JOB ID: [id number] [employer]- All Rights Reserved Reading location - IP/workstation name: [email or web address]
[2018-03-11] MEDS: INSULIN GLARGINE,HUM.REC.ANLOG 1,000 UNIT/10 ML UNIT SUBCUT SCH (08:38)
[2018-03-11] MEDS: ASPIRIN 81 MG TABLET, CHEWABLE NG SCH (09:20)
[2018-03-11] MEDS: CARVEDILOL 6.25 MG TABLET NG SCH ×2 (09:21→21:18)
[2018-03-11] MEDS: NYSTATIN TOPICAL POWDER 15 GM TP SCH ×2 (09:21→21:18)
--- NOTE | 2018-03-11 16:18 | PDOC PROGRESS REPORT ---
Subjective Progress Note for:: 03/11/18 Subjective:: Remains intubated. Reason For Visit: CHF Physical Exam Vital Signs: Temp Pulse Resp BP Pulse Ox 99.7 F 70 12 136/62 H 92 03/11/18 14:00 03/11/18 14:16 03/11/18 14:16 03/11/18 14:00 03/11/18 14:16 Intake & Output 03/10/18 03/11/18 03/12/18 06:59 06:59 06:59 Intake Total 1154 1920 164 Output Total 1270 1070 535 Balance -116 850 -371 Weight 129.2 kg 130.5 kg General appearance: PRESENT: no acute distress, morbidly obese, other -intubated Head exam: PRESENT: atraumatic, normocephalic Eye exam: ABSENT: conjunctival injection, scleral icterus Ear exam: PRESENT: normal external ear exam Neck exam: ABSENT: tracheal deviation Respiratory exam: PRESENT: Occasional expiratory wheezes Jacob, symmetrical Cardiovascular exam: PRESENT: +S1, +S2 Pulses: PRESENT: other - unable to palpate pedal pulses GI/Abdominal exam: PRESENT: normal bowel sounds, soft. ABSENT: tenderness Gentrourinary exam: PRESENT: other - hernandez noted Neurological exam: PRESENT: other -intubated Skin exam: PRESENT: dry, erythema - erythema at the base of penis, warm Results Laboratory Results: 03/11/18 04:33 03/11/18 04:33 03/11/18 03/11/18 03/11/18 04:33 04:33 04:33 WBC 4.4 RBC 3.78 L Hgb 9.7 L Hct 31.0 L MCV 82 MCH 25.5 L MCHC 31.1 L RDW 17.9 H Plt Count 96 L Seg Neutrophils % 73.9 Lymphocytes % 12.1 L Monocytes % 10.7 Eosinophils % 2.7 Basophils % 0.6 Absolute Neutrophils 3.3 Absolute Lymphocytes 0.5 Absolute Monocytes 0.5 Absolute Eosinophils 0.1 Absolute Basophils 0.0 Carbonic Acid 2.01 H HCO3/H2CO3 Ratio 21:1 ABG pH 7.44 ABG pCO2 66.8 H ABG pO2 73.6 L ABG HCO3 44.0 H ABG O2 Saturation 94.7 ABG Base Excess 17.0 FiO2 45% Sodium 144.2 Potassium 3.1 L Chloride 96 L Carbon Dioxide 47 H* Anion Gap 1 L BUN 30 H Creatinine 1.12 Est GFR ( Amer) > 60 Est GFR (Non-Af Amer) > 60 Glucose 119 H Calcium 7.0 L* Magnesium 1.9 Total Bilirubin 1.0 AST 50 ALT 39 Alkaline Phosphatase 109 Total Protein 4.5 L Albumin 2.6 L 03/09/18 05:49 Penis Gram Stain - Final 03/02/18 03/02/18 03/02/18 18:56 21:12 22:37 Creatine Kinase 30 L CK-MB (CK-2) Troponin I 0.029 0.034 NT-Pro-B Natriuret Pep 3470 H 03/02/18 03/03/18 03/03/18 22:37 04:24 04:24 Creatine Kinase 25 L CK-MB (CK-2) 0.92 0.82 Troponin I 0.036 0.034 NT-Pro-B Natriuret Pep 03/03/18 03/03/18 03/04/18 10:40 10:40 05:22 Creatine Kinase 24 L CK-MB (CK-2) 0.62 Troponin I 0.018 NT-Pro-B Natriuret Pep 3140 H 03/05/18 03/06/18 03/08/18 05:08 04:58 16:14 Creatine Kinase CK-MB (CK-2) Troponin I NT-Pro-B Natriuret Pep 2970 H 3340 H 7920 H 03/09/18 03/09/18 03/09/18 09:30 09:30 15:27 Creatine Kinase 49 L 39 L CK-MB (CK-2) 0.50 Troponin I 0.080 NT-Pro-B Natriuret Pep 03/09/18 03/09/18 03/09/18 15:27 22:06 22:06 Creatine Kinase 30 L CK-MB (CK-2) 0.30 < 0.22 Troponin I 0.067 0.072 NT-Pro-B Natriuret Pep Impressions: KUB X-Ray 03/09/18 14:15 IMPRESSION: Nasogastric tube tip in the stomach. Chest X-Ray 03/11/18 06:00 IMPRESSION: Right middle and lower lobe partial collapse and consolidation, new compared to 03/10/2018. Tubes and lines in good positioning. Assessment & Plan - Diagnosis (1) Acute exacerbation of CHF (congestive heart failure) Qualifiers: Heart failure type: unspecified Qualified Code(s): I50.9 - Heart failure, unspecified Is this a current diagnosis for this admission?: Yes (2) COPD (chronic obstructive pulmonary disease) with emphysema Qualifiers: Emphysema type: centrilobular Qualified Code(s): J43.2 - Centrilobular emphysema Is this a current diagnosis for this admission?: Yes (3) Cellulitis Is this a current diagnosis for this admission?: Yes (4) PATEL (obstructive sleep apnea) Is this a current diagnosis for this admission?: Yes (5) Hypokalemia Is this a current diagnosis for this admission?: Yes - Plan Summary Plan Summary: Lasix was stopped yesterday due to hypotension. Currently he does not seem volume overloaded. For COPD, who treat with Solu-Medrol 40 mg IV daily to hopefully optimize COPD management. Will continue management otherwise. Continue weaning trials as tolerated. We will replete potassium. Follow-up CBC and Chem-7 in a.m.
[2018-03-11] MEDS ORDERED: POTASSI CL 20 MEQ/50 ML RIDER 20 MEQ/50 ML RTUPB IV ONE (17:00)
[2018-03-11] MEDS: METHYLPREDNISOLONE INJ 40 MG/1 ML SDV IV SCH (17:05)
[2018-03-11] MEDS: SIMVASTATIN 10 MG TABLET NG SCH (21:17)
[2018-03-11] MEDS: INSULIN LISPRO 100 UNIT/ML 3 ML VIAL SUBCUT PRN (23:48)
[2018-03-12] MEDS: LEVALBUTEROL HCL NEB 1.25 MG/3 ML AMPUL NEB SCH ×4 (02:13→19:49)
[2018-03-12] MEDS: MIDAZOLAM HCL 50 MG/100 ML RTUINJ IV PRN ×3 (03:24→23:27)
[2018-03-12 05:25] LABS: ABSOLUTE LYMPHOCYTES (AUTO) 0.3 10^3/uL (0.5-4.7); ABSOLUTE MONOCYTES (AUTO) 0.2 10^3/uL (0.1-1.4); ABSOLUTE NEUT (AUTO) 4.1 10^3/uL (1.7-8.2); BASOPHILS % (AUTO) 0.2 % (0-2); HEMATOCRIT 34.3 % (37.9-51.0); HEMOGLOBIN 10.3 g/dL (13.5-17.0); MEAN CORPUSCULAR HEMOGLOBIN 24.9 pg (27.0-33.4); MEAN CORPUSCULAR HGB CONC 30.1 g/dL (32.0-36.0); MEAN CORPUSCULAR VOLUME 83 fl (80-97); MONOCYTES % (AUTO) 3.4 % (3-13); RED BLOOD COUNT 4.15 10^6/uL (4.35-5.55); RED CELL DISTRIBUTION WIDTH 17.9 % (11.5-14.0); SEGMENTED NEUTROPHILS % (AUTO) 90.4 % (42-78); TOTAL CELLS COUNTED % (AUTO) 100 %; WHITE BLOOD COUNT 4.6 10^3/uL (4.0-10.5)
[2018-03-12 05:41] LABS: ANION GAP 6 (5-19); BLOOD UREA NITROGEN 30 mg/dL (7-20); CALCIUM 7.3 mg/dL (8.4-10.2); CARBON DIOXIDE 39 mmol/L (22-30); CHLORIDE 101 mmol/L (98-107); GLUCOSE 215 mg/dL (75-110); SODIUM 145.9 mmol/L (137-145)
[2018-03-12 05:42] LABS: PLATELET COUNT 93 10^3/uL (150-450)
[2018-03-12 05:48] LABS: ARTERIAL BLOOD BASE EXCESS 13.4 mmol/L; ARTERIAL BLOOD H2CO3 1.94 mmol/L (1.05-1.35); ARTERIAL BLOOD HCO3 40.7 mmol/L (20-24); ARTERIAL BLOOD O2 SATURATION 96.2 % (94-98); ARTERIAL BLOOD PCO2 64.3 mmHg (35-45); ARTERIAL BLOOD PH 7.42 (7.35-7.45); ARTERIAL BLOOD PO2 84.2 mmHg (80-100); ARTERIAL BLOOD TOTAL CO2 42.7 mmol/L (23-27)
[2018-03-12 05:49] LABS: ARTERIAL BLOOD FIO2 45%
[2018-03-12] MEDS: INSULIN LISPRO 100 UNIT/ML 3 ML VIAL SUBCUT PRN ×3 (06:29→23:40)
[2018-03-12] MEDS: PIPERACILLIN SODIUM/TAZOBACTAM 3.375 GM in NORMAL SALINE 100 ML IV SCH ×4 (06:29→23:12)
[2018-03-12] MEDS: HEPARIN SOD (PORCINE) 5,000 UNIT/ML 1 ML SYRINGE SUBCUT SCH ×3 (06:30→23:11)
[2018-03-12] MEDS: GABAPENTIN 300 MG CAPSULE NG SCH ×4 (06:30→23:11)
--- NOTE | 2018-03-12 07:20 | RADIOLOGY REPORT (SQ) ---
EXAM DESCRIPTION: X-ray single view chest. CLINICAL HISTORY: 67 years Male, RESP FAILURE COMPARISON: 03/11/2018 and 03/10/2018 TECHNIQUE: Single portable view of the chest performed on 03/12/2018 at 6:24 AM FINDINGS: The lungs are relatively well expanded. There is persistent volume loss in the right inferior hemithorax. The lateral costophrenic sulci are grossly clear. There is no evidence of a pneumothorax. The cardiac silhouette is stable and enlarged. An implantable heart monitor is noted. The mediastinal contours are normal. No acute osseous abnormality is identified. No focal soft tissue abnormalities are seen. Lines and tubes: The endotracheal tube, feeding tube and right IJ central venous catheter are grossly stable. The left IJ central venous catheter is also stable. IMPRESSION: 1. Persistent focal volume loss in the right inferior hemithorax which may be due to pneumonia, atelectasis or edema. 2. Stable cardiomegaly. 3. Stable life support lines and tubes.
[2018-03-12] MEDS: NORMAL SALINE 1000 ML 1,000 ML IV PRN (08:08)
[2018-03-12] MEDS: INSULIN GLARGINE,HUM.REC.ANLOG 1,000 UNIT/10 ML UNIT SUBCUT SCH (09:12)
[2018-03-12] MEDS: ASPIRIN 81 MG TABLET, CHEWABLE NG SCH (09:12)
[2018-03-12] MEDS: METHYLPREDNISOLONE INJ 40 MG/1 ML SDV IV SCH ×2 (09:13→23:12)
[2018-03-12] MEDS: NYSTATIN TOPICAL POWDER 15 GM TP SCH (09:13)
[2018-03-12] MEDS: CARVEDILOL 6.25 MG TABLET NG SCH (09:13)
[2018-03-12] MEDS: PROPOFOL 1,000 MG/100 ML INFUS..BTL IV PRN (09:20)
[2018-03-12] MEDS ORDERED: DILTIAZEM HCL/D5W 125 MG/125 ML RTUINJ IV PRN (17:31)
[2018-03-12] MEDS ORDERED: ACETAMINOPHEN 650 MG SUPP.RECT PR PRN (17:32)
[2018-03-12] MEDS ORDERED: ACETAMINOPHEN 325 MG TABLET PO PRN (17:40)
[2018-03-12] MEDS ORDERED: DIGOXIN INJ 0.5 MG/2 ML AMPULE IV ONE (19:45)
--- NOTE | 2018-03-12 20:22 | PDOC PROGRESS REPORT ---
Subjective Progress Note for:: 03/12/18 Subjective:: Remains intubated and sedated. Family, including at bedside. Patient had hypotension with to improve before and was on high-dose Versed. Attempted weaning off Versed and trial of propofol today resulted in bradycardia propofol was dialed back. Currently in no acute distress. Reason For Visit: CHF Physical Exam Vital Signs: Temp Pulse Resp BP Pulse Ox 98.8 F 46 L 16 138/58 H 92 03/12/18 16:00 03/12/18 16:00 03/12/18 16:00 03/12/18 16:00 03/12/18 16:00 Intake & Output 03/11/18 03/12/18 03/13/18 06:59 06:59 06:59 Intake Total 1920 2086 1290 Output Total 1070 1640 44696 Balance 850 056 9009 Weight 130.5 kg 130.4 kg General appearance: PRESENT: no acute distress, morbidly obese, other -intubated Head exam: PRESENT: atraumatic, normocephalic Eye exam: ABSENT: conjunctival injection, scleral icterus Ear exam: PRESENT: normal external ear exam Neck exam: ABSENT: tracheal deviation Respiratory exam: PRESENT: Occasional expiratory wheezes Jacob, symmetrical Cardiovascular exam: PRESENT: +S1, +S2 Pulses: PRESENT: other - unable to palpate pedal pulses GI/Abdominal exam: PRESENT: normal bowel sounds, soft. ABSENT: tenderness Gentrourinary exam: PRESENT: other - hernandez noted Neurological exam: PRESENT: other -intubated Skin exam: PRESENT: dry, erythema - erythema at the base of penis, warm Results Laboratory Results: 03/12/18 05:00 03/12/18 05:00 03/12/18 03/12/18 03/12/18 05:00 05:00 05:00 WBC 4.6 RBC 4.15 L Hgb 10.3 L Hct 34.3 L MCV 83 MCH 24.9 L MCHC 30.1 L RDW 17.9 H Plt Count 93 L Seg Neutrophils % 90.4 H Lymphocytes % 6.0 L Monocytes % 3.4 Eosinophils % 0.0 Basophils % 0.2 Absolute Neutrophils 4.1 Absolute Lymphocytes 0.3 L Absolute Monocytes 0.2 Absolute Eosinophils 0.0 Absolute Basophils 0.0 Carbonic Acid Cancelled HCO3/H2CO3 Ratio Cancelled ABG pH Cancelled ABG pCO2 Cancelled ABG pO2 Cancelled ABG HCO3 Cancelled ABG O2 Saturation Cancelled ABG Base Excess Cancelled FiO2 Cancelled Sodium 145.9 H Potassium 4.0 Chloride 101 Carbon Dioxide 39 H Anion Gap 6 BUN 30 H Creatinine 0.92 Est GFR ( Amer) > 60 Est GFR (Non-Af Amer) > 60 Glucose 215 H Calcium 7.3 L 03/12/18 05:37 WBC RBC Hgb Hct MCV MCH MCHC RDW Plt Count Seg Neutrophils % Lymphocytes % Monocytes % Eosinophils % Basophils % Absolute Neutrophils Absolute Lymphocytes Absolute Monocytes Absolute Eosinophils Absolute Basophils Carbonic Acid 1.94 H HCO3/H2CO3 Ratio 20:1 ABG pH 7.42 ABG pCO2 64.3 H ABG pO2 84.2 ABG HCO3 40.7 H ABG O2 Saturation 96.2 ABG Base Excess 13.4 FiO2 45% Sodium Potassium Chloride Carbon Dioxide Anion Gap BUN Creatinine Est GFR ( Amer) Est GFR (Non-Af Amer) Glucose Calcium 03/09/18 05:49 Penis Gram Stain - Final 03/09/18 05:49 Penis Wound Culture - Final Pseudomonas Aeruginosa Escherichia Coli Enterococcus Faecalis(Group D) Skin Brittny 03/02/18 03/02/18 03/02/18 18:56 21:12 22:37 Creatine Kinase 30 L CK-MB (CK-2) Troponin I 0.029 0.034 NT-Pro-B Natriuret Pep 3470 H 03/02/18 03/03/18 03/03/18 22:37 04:24 04:24 Creatine Kinase 25 L CK-MB (CK-2) 0.92 0.82 Troponin I 0.036 0.034 NT-Pro-B Natriuret Pep 03/03/18 03/03/18 03/04/18 10:40 10:40 05:22 Creatine Kinase 24 L CK-MB (CK-2) 0.62 Troponin I 0.018 NT-Pro-B Natriuret Pep 3140 H 03/05/18 03/06/18 03/08/18 05:08 04:58 16:14 Creatine Kinase CK-MB (CK-2) Troponin I NT-Pro-B Natriuret Pep 2970 H 3340 H 7920 H 03/09/18 03/09/18 03/09/18 09:30 09:30 15:27 Creatine Kinase 49 L 39 L CK-MB (CK-2) 0.50 Troponin I 0.080 NT-Pro-B Natriuret Pep 03/09/18 03/09/18 03/09/18 15:27 22:06 22:06 Creatine Kinase 30 L CK-MB (CK-2) 0.30 < 0.22 Troponin I 0.067 0.072 NT-Pro-B Natriuret Pep Impressions: KUB X-Ray 03/09/18 14:15 IMPRESSION: Nasogastric tube tip in the stomach. Chest X-Ray 03/12/18 06:00 IMPRESSION: 1. Persistent focal volume loss in the right inferior hemithorax which may be due to pneumonia, atelectasis or edema. 2. Stable cardiomegaly. 3. Stable life support lines and tubes. Assessment & Plan - Diagnosis (1) Acute exacerbation of CHF (congestive heart failure) Qualifiers: Heart failure type: unspecified Qualified Code(s): I50.9 - Heart failure, unspecified Is this a current diagnosis for this admission?: Yes (2) COPD (chronic obstructive pulmonary disease) with emphysema Qualifiers: Emphysema type: centrilobular Qualified Code(s): J43.2 - Centrilobular e mphysema Is this a current diagnosis for this admission?: Yes (3) Cellulitis Is this a current diagnosis for this admission?: Yes (4) PATEL (obstructive sleep apnea) Is this a current diagnosis for this admission?: Yes (5) Hypokalemia Is this a current diagnosis for this admission?: Yes - Plan Summary Plan Summary: Lasix had been stopped yesterday due to hypotension. Currently he does not seem volume overloaded. For COPD, will continue with Solu-Medrol 40 mg IV, will increase to bid, to hopefully optimize COPD management. Continue weaning trials as tolerated. Of note is that patient was very prolonged intubation/difficult extubation in the past. Potassium better today. Follow-up CBC and Chem-7 in a.m.
[2018-03-12] MEDS ORDERED: VALPROATE SODIUM 1,000 MG in NORMAL SALINE 100 ML IV SCH (22:00)
[2018-03-12] MEDS: SIMVASTATIN 10 MG TABLET NG SCH (23:11)
[2018-03-13] MEDS: LEVALBUTEROL HCL NEB 1.25 MG/3 ML AMPUL NEB SCH ×4 (01:21→19:12)
[2018-03-13] MEDS: NORMAL SALINE 1000 ML 1,000 ML IV PRN ×2 (01:45→22:30)
[2018-03-13] MEDS: PIPERACILLIN SODIUM/TAZOBACTAM 3.375 GM in NORMAL SALINE 100 ML IV SCH ×2 (06:27→12:25)
[2018-03-13] MEDS: GABAPENTIN 300 MG CAPSULE NG SCH ×3 (06:27→18:09)
[2018-03-13] MEDS: HEPARIN SOD (PORCINE) 5,000 UNIT/ML 1 ML SYRINGE SUBCUT SCH ×3 (06:27→22:29)
[2018-03-13 07:11] LABS: ARTERIAL BLOOD BASE EXCESS 15.5 mmol/L; ARTERIAL BLOOD FIO2 50%; ARTERIAL BLOOD H2CO3 1.83 mmol/L (1.05-1.35); ARTERIAL BLOOD HCO3 41.9 mmol/L (20-24); ARTERIAL BLOOD O2 SATURATION 94.4 % (94-98); ARTERIAL BLOOD PCO2 60.8 mmHg (35-45); ARTERIAL BLOOD PH 7.46 (7.35-7.45); ARTERIAL BLOOD PO2 70.1 mmHg (80-100); ARTERIAL BLOOD TOTAL CO2 43.7 mmol/L (23-27)
[2018-03-13 07:15] LABS: ABSOLUTE LYMPHOCYTES (AUTO) 0.3 10^3/uL (0.5-4.7); ABSOLUTE MONOCYTES (AUTO) 0.3 10^3/uL (0.1-1.4); BASOPHILS % (AUTO) 0.1 % (0-2); HEMATOCRIT 35.2 % (37.9-51.0); HEMOGLOBIN 10.5 g/dL (13.5-17.0); LYMPHOCYTES % (AUTO) 5.1 % (13-45); MEAN CORPUSCULAR HEMOGLOBIN 24.7 pg (27.0-33.4); MEAN CORPUSCULAR HGB CONC 29.7 g/dL (32.0-36.0); MEAN CORPUSCULAR VOLUME 83 fl (80-97); MONOCYTES % (AUTO) 5.1 % (3-13); PLATELET COUNT 117 10^3/uL (150-450); RED BLOOD COUNT 4.24 10^6/uL (4.35-5.55); RED CELL DISTRIBUTION WIDTH 17.5 % (11.5-14.0); SEGMENTED NEUTROPHILS % (AUTO) 89.7 % (42-78); TOTAL CELLS COUNTED % (AUTO) 100 %; WHITE BLOOD COUNT 5.5 10^3/uL (4.0-10.5)
[2018-03-13 07:24] LABS: BLOOD UREA NITROGEN 36 mg/dL (7-20); CALCIUM 7.8 mg/dL (8.4-10.2); CHLORIDE 103 mmol/L (98-107); GLUCOSE 288 mg/dL (75-110); POTASSIUM 4.4 mmol/L (3.6-5.0)
[2018-03-13 07:44] LABS: SODIUM 147.7 mmol/L (137-145)
[2018-03-13 07:49] LABS: ANION GAP 5 (5-19); CARBON DIOXIDE 40 mmol/L (22-30)
--- NOTE | 2018-03-13 09:05 | RADIOLOGY REPORT (SQ) ---
EXAM DESCRIPTION: CHEST SINGLE VIEW COMPLETED DATE/TIME: 03/13/2018 6:43 am REASON FOR STUDY: resp. failure COMPARISON: CT chest 01/26/2018 Chest films 03/10/2018, 03/11/2018, 03/12/2018 EXAM PARAMETERS: NUMBER OF VIEWS: One view. TECHNIQUE: Single frontal radiographic view of the chest acquired. RADIATION DOSE: NA LIMITATIONS: None. FINDINGS: LUNGS AND PLEURA: Trace fluid in the right minor fissure. No left pleural fluid There is right and left retrocardiac consolidation from partial collapse of the medial right and left lower lobes. This is stable. No fluffy alveolar infiltrates worrisome for pulmonary edema. No pneumothorax. MEDIASTINUM AND HILAR STRUCTURES: No masses. Contour normal. HEART AND VASCULAR STRUCTURES: Stable cardiomegaly. BONES: No acute findings. HARDWARE: Endotracheal tube tip 5 cm above the gerhard. Left jugular central line tip superior vena c alina. Right permanent central line tip in the right atrium. Nasogastric tube tip and side port in th e stomach. Implanted cardiac monitoring device over the anterior left chest OTHER: No other significant finding. IMPRESSION: Tubes and lines in good positioning. Persistent airspace disease in the right and left medial lung bases TECHNICAL DOCUMENTATION: JOB ID: [id number] [employer]- All Rights Reserved Reading location - IP/workstation name: [email or web address]
[2018-03-13] MEDS: INSULIN GLARGINE,HUM.REC.ANLOG 1,000 UNIT/10 ML UNIT SUBCUT SCH (09:10)
[2018-03-13] MEDS: INSULIN LISPRO 100 UNIT/ML 3 ML VIAL SUBCUT PRN ×3 (09:10→22:36)
[2018-03-13] MEDS: METHYLPREDNISOLONE INJ 40 MG/1 ML SDV IV SCH ×2 (09:11→22:29)
[2018-03-13] MEDS: ASPIRIN 81 MG TABLET, CHEWABLE NG SCH (09:11)
[2018-03-13] MEDS: MIDAZOLAM HCL 50 MG/100 ML RTUINJ IV PRN ×2 (15:15→22:26)
[2018-03-13] MEDS ORDERED: MEROPENEM 1 GM VIAL IV SCH (17:15)
--- NOTE | 2018-03-13 17:15 | PDOC PROGRESS REPORT ---
Subjective Progress Note for:: 03/13/18 Subjective:: Patient was seen and examined. He is intubated and sedated. Discussed with his and son. Reason For Visit: CHF Physical Exam Vital Signs: Temp Pulse Resp BP Pulse Ox 100.9 F H 71 15 140/61 H 91 L 03/13/18 14:00 03/13/18 14:00 03/13/18 15:00 03/13/18 14:37 03/13/18 16:00 Intake & Output 03/12/18 03/13/18 03/14/18 06:59 06:59 06:59 Intake Total 2086 2440 1455 Output Total 2089 61781 440 Balance 556 -1944 1015 Weight 287 lb 7.724 oz 296 lb 8.348 oz General appearance: PRESENT: other - Intubated and sedated Head exam: PRESENT: atraumatic Eye exam: ABSENT: conjunctival injection Mouth exam: PRESENT: moist, neck supple Neck exam: ABSENT: meningismus Respiratory exam: PRESENT: clear to auscultation ernesto Cardiovascular exam: PRESENT: RRR GI/Abdominal exam: PRESENT: soft - Obese Neurological exam: PRESENT: other - Intubated and sedated Results Laboratory Results: 03/13/18 06:45 03/13/18 06:45 03/13/18 03/13/18 03/13/18 06:45 06:45 06:45 WBC 5.5 RBC 4.24 L Hgb 10.5 L Hct 35.2 L MCV 83 MCH 24.7 L MCHC 29.7 L RDW 17.5 H Plt Count 117 L Seg Neutrophils % 89.7 H Lymphocytes % 5.1 L Monocytes % 5.1 Eosinophils % 0.0 Basophils % 0.1 Absolute Neutrophils 5.0 Absolute Lymphocytes 0.3 L Absolute Monocytes 0.3 Absolute Eosinophils 0.0 Absolute Basophils 0.0 Carbonic Acid 1.83 H HCO3/H2CO3 Ratio 22:1 ABG pH 7.46 H ABG pCO2 60.8 H ABG pO2 70.1 L ABG HCO3 41.9 H ABG O2 Saturation 94.4 ABG Base Excess 15.5 FiO2 50% Sodium 147.7 H Potassium 4.4 Chloride 103 Carbon Dioxide 40 H* Anion Gap 5 BUN 36 H Creatinine 0.92 Est GFR ( Amer) > 60 Est GFR (Non-Af Amer) > 60 Glucose 288 H Calcium 7.8 L 03/02/18 03/02/18 03/02/18 18:56 21:12 22:37 Creatine Kinase 30 L CK-MB (CK-2) Troponin I 0.029 0.034 NT-Pro-B Natriuret Pep 3470 H 03/02/18 03/03/18 03/03/18 22:37 04:24 04:24 Creatine Kinase 25 L CK-MB (CK-2) 0.92 0.82 Troponin I 0.036 0.034 NT-Pro-B Natriuret Pep 03/03/18 03/03/18 03/04/18 10:40 10:40 05:22 Creatine Kinase 24 L CK-MB (CK-2) 0.62 Troponin I 0.018 NT-Pro-B Natriuret Pep 3140 H 03/05/18 03/06/18 03/08/18 05:08 04:58 16:14 Creatine Kinase CK-MB (CK-2) Troponin I NT-Pro-B Natriuret Pep 2970 H 3340 H 7920 H 03/09/18 03/09/18 03/09/18 09:30 09:30 15:27 Creatine Kinase 49 L 39 L CK-MB (CK-2) 0.50 Troponin I 0.080 NT-Pro-B Natriuret Pep 03/09/18 03/09/18 03/09/18 15:27 22:06 22:06 Creatine Kinase 30 L CK-MB (CK-2) 0.30 < 0.22 Troponin I 0.067 0.072 NT-Pro-B Natriuret Pep Impressions: KUB X-Ray 03/09/18 14:15 IMPRESSION: Nasogastric tube tip in the stomach. Chest X-Ray 03/13/18 06:30 IMPRESSION: Tubes and lines in good positioning. Persistent airspace disease in the right and left medial lung bases Assessment & Plan - Diagnosis (1) Acute exacerbation of CHF (congestive heart failure) Qualifiers: Heart failure type: unspecified Qualified Code(s): I50.9 - Heart failure, unspecified Is this a current diagnosis for this admission?: Yes Plan: Restart Lasix 20 mg IV daily (2) Acute respiratory failure with hypoxia and hypercapnia Is this a current diagnosis for this admission?: Yes Plan: Continue ventilator to maximize oxygenation and ventilation. Daily weaning trials. (3) COPD (chronic obstructive pulmonary disease) with emphysema Qualifiers: Emphysema type: centrilobular Qualified Code(s): J43.2 - Centrilobular emphysema Is this a current diagnosis for this admission?: Yes Plan: Continue steroids and bronchodilators (4) Morbid obesity with alveolar hypoventilation Is this a current diagnosis for this admission?: Yes (5) Peripheral edema Is this a current diagnosis for this admission?: Yes Plan: Improved (6) Cellulitis Is this a current diagnosis for this admission?: Yes Plan: Switch Zosyn to meropenem according to sensitivity
[2018-03-13] MEDS ORDERED: MEROPENEM 1 GM VIAL IV PRN (17:53)
[2018-03-13] MEDS: FUROSEMIDE INJ/PF 20 MG/2 ML SDV IV SCH (18:09)
[2018-03-13] MEDS: PANTOPRAZOLE SODIUM 40 MG VIAL IV SCH (18:09)
[2018-03-13] MEDS ORDERED: MEROPENEM 1 GM VIAL ONE ×2 (18:12)
[2018-03-13] MEDS: MEROPENEM 1 GM in NORMAL SALINE 50 ML IV SCH (18:19)
[2018-03-13] MEDS: SIMVASTATIN 10 MG TABLET NG SCH (22:29)
[2018-03-14] MEDS: LEVALBUTEROL HCL NEB 1.25 MG/3 ML AMPUL NEB SCH ×4 (01:12→20:35)
[2018-03-14] MEDS: GABAPENTIN 300 MG CAPSULE NG SCH ×4 (01:39→17:21)
[2018-03-14] MEDS: MEROPENEM 1 GM in NORMAL SALINE 50 ML IV SCH ×3 (01:40→17:20)
[2018-03-14 05:40] LABS: ARTERIAL BLOOD H2CO3 1.83 mmol/L (1.05-1.35); ARTERIAL BLOOD HCO3 40.5 mmol/L (20-24); ARTERIAL BLOOD O2 SATURATION 94.3 % (94-98); ARTERIAL BLOOD PCO2 60.8 mmHg (35-45); ARTERIAL BLOOD PH 7.44 (7.35-7.45); ARTERIAL BLOOD PO2 70.9 mmHg (80-100); ARTERIAL BLOOD TOTAL CO2 42.3 mmol/L (23-27)
[2018-03-14] MEDS: HEPARIN SOD (PORCINE) 5,000 UNIT/ML 1 ML SYRINGE SUBCUT SCH ×3 (05:40→21:56)
[2018-03-14] MEDS: INSULIN LISPRO 100 UNIT/ML 3 ML VIAL SUBCUT PRN ×3 (05:42→18:06)
[2018-03-14 05:44] LABS: ARTERIAL BLOOD FIO2 45%; HEMATOCRIT 34.8 % (37.9-51.0); HEMOGLOBIN 10.6 g/dL (13.5-17.0); MEAN CORPUSCULAR HEMOGLOBIN 25.4 pg (27.0-33.4); MEAN CORPUSCULAR HGB CONC 30.6 g/dL (32.0-36.0); MEAN CORPUSCULAR VOLUME 83 fl (80-97); PLATELET COUNT 133 10^3/uL (150-450); RED BLOOD COUNT 4.19 10^6/uL (4.35-5.55)
[2018-03-14 06:11] LABS: BLOOD UREA NITROGEN 48 mg/dL (7-20); CALCIUM 7.9 mg/dL (8.4-10.2); CHLORIDE 106 mmol/L (98-107); GLUCOSE 275 mg/dL (75-110); POTASSIUM 4.6 mmol/L (3.6-5.0); SODIUM 149.6 mmol/L (137-145)
[2018-03-14 06:34] LABS: ANION GAP -1 (5-19)
[2018-03-14 06:35] LABS: CARBON DIOXIDE 45 mmol/L (22-30)
--- NOTE | 2018-03-14 07:58 | RADIOLOGY REPORT (SQ) ---
EXAM DESCRIPTION: X-ray single view chest. CLINICAL HISTORY: 67 years Male, resp. failure COMPARISON: 03/13/2018 and 03/12/2018 TECHNIQUE: Single portable view of the chest performed on 03/14/2018 at 6:50 AM FINDINGS: The lungs are well expanded. There is mild volume loss in the right inferior hemithorax slightly increased when compared to the prior studies. There is stable mild volume loss in the medial left lung base. There is no evidence of a pneumothorax. The cardiac silhouette is stable and enlarged. The mediastinal contours are normal. No acute osseous abnormality is identified. No focal soft tissue abnormalities are seen. Lines and tubes: The endotracheal tube, right IJ [id number] catheter and left IJ central venous catheter are stable in position. IMPRESSION: 1. Increasing volume loss in the right lung base and grossly stable volume loss in the medial left lung base. 2. Stable life support lines and tubes.
[2018-03-14] MEDS: INSULIN GLARGINE,HUM.REC.ANLOG 1,000 UNIT/10 ML UNIT SUBCUT SCH (08:24)
[2018-03-14] MEDS: PANTOPRAZOLE SODIUM 40 MG VIAL IV SCH (11:45)
[2018-03-14] MEDS: FUROSEMIDE INJ/PF 20 MG/2 ML SDV IV SCH (11:46)
[2018-03-14] MEDS: ASPIRIN 81 MG TABLET, CHEWABLE NG SCH (11:46)
[2018-03-14] MEDS: METHYLPREDNISOLONE INJ 40 MG/1 ML SDV IV SCH ×2 (11:46→21:55)
--- NOTE | 2018-03-14 13:22 | PDOC PROGRESS REPORT ---
Subjective Progress Note for:: 03/14/18 Subjective:: Patient was seen and examined today. He is intubated and sedated. Discussed with his and son at bedside. Reason For Visit: CHF Physical Exam Vital Signs: Temp Pulse Resp BP Pulse Ox 99.0 F 64 18 134/72 H 91 L 03/14/18 06:00 03/14/18 08:05 03/14/18 08:05 03/14/18 07:37 03/14/18 08:05 Intake & Output 03/13/18 03/14/18 03/15/18 06:59 06:59 06:59 Intake Total 2440 2655 0 Output Total 54212 1635 75 Balance -8514 1020 -75 Weight 296 lb 8.348 oz 298 lb 15.149 oz General appearance: PRESENT: morbidly obese, other - intubated and sedated Head exam: PRESENT: atraumatic, normocephalic Mouth exam: PRESENT: moist, neck supple Neck exam: ABSENT: meningismus, tenderness Respiratory exam: PRESENT: rales - scattered, other - intubated and sedated Cardiovascular exam: PRESENT: RRR. ABSENT: systolic murmur Pulses: PRESENT: normal radial pulses GI/Abdominal exam: PRESENT: normal bowel sounds, soft Neurological exam: PRESENT: other - intubated and sedated Results Laboratory Results: 03/14/18 05:30 03/14/18 05:30 03/14/18 03/14/18 03/14/18 05:30 05:30 05:30 WBC 8.0 RBC 4.19 L Hgb 10.6 L Hct 34.8 L MCV 83 MCH 25.4 L MCHC 30.6 L RDW 18.0 H Plt Count 133 L Carbonic Acid 1.83 H HCO3/H2CO3 Ratio 22:1 ABG pH 7.44 ABG pCO2 60.8 H ABG pO2 70.9 L ABG HCO3 40.5 H ABG O2 Saturation 94.3 ABG Base Excess 14.0 FiO2 45% Sodium 149.6 H Potassium 4.6 Chloride 106 Carbon Dioxide 45 H* Anion Gap -1 L BUN 48 H Creatinine 0.94 Est GFR ( Amer) > 60 Est GFR (Non-Af Amer) > 60 Glucose 275 H Calcium 7.9 L 03/13/18 13:45 Sputum Gram Stain - Final 01/03/02/18 03/02/18 18:56 21:12 22:37 Creatine Kinase 30 L CK-MB (CK-2) Troponin I 0.029 0.034 NT-Pro-B Natriuret Pep 3470 H 03/02/18 03/03/18 03/03/18 22:37 04:24 04:24 Creatine Kinase 25 L CK-MB (CK-2) 0.92 0.82 Troponin I 0.036 0.034 NT-Pro-B Natriuret Pep 03/03/18 03/03/18 03/04/18 10:40 10:40 05:22 Creatine Kinase 24 L CK-MB (CK-2) 0.62 Troponin I 0.018 NT-Pro-B Natriuret Pep 3140 H 03/05/18 03/06/18 03/08/18 05:08 04:58 16:14 Creatine Kinase CK-MB (CK-2) Troponin I NT-Pro-B Natriuret Pep 2970 H 3340 H 7920 H 03/09/18 03/09/18 03/09/18 09:30 09:30 15:27 Creatine Kinase 49 L 39 L CK-MB (CK-2) 0.50 Troponin I 0.080 NT-Pro-B Natriuret Pep 03/09/18 03/09/18 03/09/18 15:27 22:06 22:06 Creatine Kinase 30 L CK-MB (CK-2) 0.30 < 0.22 Troponin I 0.067 0.072 NT-Pro-B Natriuret Pep Impressions: KUB X-Ray 03/09/18 14:15 IMPRESSION: Nasogastric tube tip in the stomach. Chest X-Ray 03/14/18 06:30 IMPRESSION: 1. Increasing volume loss in the right lung base and grossly stable volume loss in the medial left lung base. 2. Stable life support lines and tubes. Assessment & Plan - Diagnosis (1) Acute exacerbation of CHF (congestive heart failure) Qualifiers: Heart failure type: unspecified Qualified Code(s): I50.9 - Heart failure, unspecified Is this a current diagnosis for this admission?: Yes Plan: increase lasix to 40 mg BID (2) Acute respiratory failure with hypoxia and hypercapnia Is this a current diagnosis for this admission?: Yes Plan: Continue ventilator to maximize oxygenation and ventilation. Daily weaning trials. (3) COPD (chronic obstructive pulmonary disease) with emphysema Qualifiers: Emphysema type: centrilobular Qualified Code(s): J43.2 - Centrilobular e mphysema Is this a current diagnosis for this admission?: Yes Plan: Continue steroids and bronchodilators (4) Morbid obesity with alveolar hypoventilation Is this a current diagnosis for this admission?: Yes (5) Peripheral edema Is this a current diagnosis for this admission?: Yes Plan: Improved. continue lasix (6) Cellulitis Is this a current diagnosis for this admission?: Yes Plan: . skin cx + pseudomonas, E coli, enterococcus. Switched Zosyn to meropenem according to sensitivity - Time Total Critical Time (Minutes): 35
[2018-03-14] MEDS: MIDAZOLAM HCL 50 MG/100 ML RTUINJ IV PRN (16:22)
[2018-03-14] MEDS: SIMVASTATIN 10 MG TABLET NG SCH (21:55)
[2018-03-14] MEDS: FUROSEMIDE INJ/PF 40 MG/4 ML SDV IV SCH (21:56)
[2018-03-14] MEDS: NORMAL SALINE 1000 ML 1,000 ML IV PRN (21:57)
[2018-03-15] MEDS: MEROPENEM 1 GM in NORMAL SALINE 50 ML IV SCH ×3 (01:00→18:09)
[2018-03-15] MEDS: GABAPENTIN 300 MG CAPSULE NG SCH ×4 (01:01→18:10)
[2018-03-15] MEDS: LEVALBUTEROL HCL NEB 1.25 MG/3 ML AMPUL NEB SCH ×4 (02:40→20:33)
[2018-03-15] MEDS: MIDAZOLAM HCL 50 MG/100 ML RTUINJ IV PRN ×2 (04:08→22:11)
[2018-03-15] MEDS: HEPARIN SOD (PORCINE) 5,000 UNIT/ML 1 ML SYRINGE SUBCUT SCH ×3 (05:11→22:08)
[2018-03-15 05:32] LABS: HEMATOCRIT 34.4 % (37.9-51.0); HEMOGLOBIN 10.6 g/dL (13.5-17.0); MEAN CORPUSCULAR HEMOGLOBIN 25.1 pg (27.0-33.4); MEAN CORPUSCULAR HGB CONC 30.8 g/dL (32.0-36.0); MEAN CORPUSCULAR VOLUME 82 fl (80-97); RED BLOOD COUNT 4.21 10^6/uL (4.35-5.55); RED CELL DISTRIBUTION WIDTH 17.8 % (11.5-14.0); WHITE BLOOD COUNT 7.1 10^3/uL (4.0-10.5)
[2018-03-15 05:53] LABS: BLOOD UREA NITROGEN 43 mg/dL (7-20); CALCIUM 8.2 mg/dL (8.4-10.2); CHLORIDE 107 mmol/L (98-107); GLUCOSE 181 mg/dL (75-110); POTASSIUM 4.3 mmol/L (3.6-5.0); SODIUM 148.3 mmol/L (137-145)
[2018-03-15 06:20] LABS: ANION GAP -1 (5-19); CARBON DIOXIDE 42 mmol/L (22-30)
[2018-03-15 06:24] LABS: PLATELET COUNT 132 10^3/uL (150-450)
--- NOTE | 2018-03-15 06:54 | RADIOLOGY REPORT (SQ) ---
EXAM DESCRIPTION: X-ray single view chest. CLINICAL HISTORY: 67 years Male, chf COMPARISON: 03/14/2018 and 03/13/2018 TECHNIQUE: Single portable view of the chest performed on 03/15/2018 at 6:33 AM FINDINGS: The lungs are well expanded. There is ongoing volume loss in the right inferior hemithorax. There is persistent volume loss in the medial left lung base The lungs are otherwise clear. There is no evidence of a pneumothorax. The cardiac silhouette is stable and is enlarged. An implantable heart rate monitor is noted. The mediastinal contours are normal. No acute osseous abnormality is identified. No focal soft tissue abnormalities are seen. Lines and tubes: The endotracheal tube, right IJ [id number] catheter, left IJ central venous catheter and feeding tube are grossly stable. IMPRESSION: No significant change when compared to the prior study. There is ongoing volume loss in the right lung base and medial left lung base. Life support lines and tubes are stable.
[2018-03-15] MEDS: ASPIRIN 81 MG TABLET, CHEWABLE NG SCH (09:32)
[2018-03-15] MEDS: INSULIN GLARGINE,HUM.REC.ANLOG 1,000 UNIT/10 ML UNIT SUBCUT SCH (09:32)
[2018-03-15] MEDS: PANTOPRAZOLE SODIUM 40 MG VIAL IV SCH (09:32)
[2018-03-15] MEDS: FUROSEMIDE INJ/PF 40 MG/4 ML SDV IV SCH ×2 (09:33→22:08)
[2018-03-15] MEDS: METHYLPREDNISOLONE INJ 40 MG/1 ML SDV IV SCH ×2 (09:33→22:08)
[2018-03-15 12:56] LABS: ARTERIAL BLOOD BASE EXCESS 14.1 mmol/L; ARTERIAL BLOOD H2CO3 1.68 mmol/L (1.05-1.35); ARTERIAL BLOOD HCO3 40.3 mmol/L (20-24); ARTERIAL BLOOD O2 SATURATION 96.5 % (94-98); ARTERIAL BLOOD PCO2 55.8 mmHg (35-45); ARTERIAL BLOOD PH 7.48 (7.35-7.45); ARTERIAL BLOOD PO2 82.5 mmHg (80-100); ARTERIAL BLOOD TOTAL CO2 42.1 mmol/L (23-27)
--- NOTE | 2018-03-15 15:10 | PDOC PROGRESS REPORT ---
Subjective Progress Note for:: 03/15/18 Subjective:: Patient was seen and examined today. He is intubated and sedated. Pulse ox was in the 80s last night and FiO2 was increased to 55%. Reason For Visit: CHF Physical Exam Vital Signs: Temp Pulse Resp BP Pulse Ox 98.8 F 81 17 164/82 H 94 03/15/18 12:00 03/15/18 14:00 03/15/18 15:00 03/15/18 14:38 03/15/18 15:00 Intake & Output 03/14/18 03/15/18 03/16/18 06:59 06:59 06:59 Intake Total 2655 1344 50 Output Total 1635 4150 1525 Balance 1020 -1706 -1475 Weight 298 lb 15.149 oz 288 lb 12.889 oz General appearance: PRESENT: no acute distress, morbidly obese, other - Intubated and sedated Head exam: PRESENT: atraumatic, normocephalic Mouth exam: PRESENT: moist, neck supple Neck exam: ABSENT: meningismus, tenderness Respiratory exam: PRESENT: rales - Intubated and sedated Cardiovascular exam: PRESENT: RRR. ABSENT: systolic murmur Pulses: PRESENT: normal radial pulses GI/Abdominal exam: PRESENT: normal bowel sounds, soft. ABSENT: mass Rectal exam: PRESENT: deferred Neurological exam: PRESENT: other - Intubated and sedated Results Laboratory Results: 03/15/18 05:00 03/15/18 05:00 03/15/18 03/15/18 03/15/18 05:00 05:00 12:36 WBC 7.1 RBC 4.21 L Hgb 10.6 L Hct 34.4 L MCV 82 MCH 25.1 L MCHC 30.8 L RDW 17.8 H Plt Count 132 L Carbonic Acid 1.68 H HCO3/H2CO3 Ratio 23:1 ABG pH 7.48 H ABG pCO2 55.8 H ABG pO2 82.5 ABG HCO3 40.3 H ABG O2 Saturation 96.5 ABG Base Excess 14.1 FiO2 55% Sodium 148.3 H Potassium 4.3 Chloride 107 Carbon Dioxide 42 H* Anion Gap -1 L BUN 43 H Creatinine 1.02 Est GFR ( Amer) > 60 Est GFR (Non-Af Amer) > 60 Glucose 181 H Calcium 8.2 L 03/13/18 13:45 Sputum Gram Stain - Final 03/13/18 13:45 Sputum Sputum Culture - Final Pseudomonas Aeruginosa Normal Brittny Absent 03/02/18 03/02/18 03/02/18 18:56 21:12 22:37 Creatine Kinase 30 L CK-MB (CK-2) Troponin I 0.029 0.034 NT-Pro-B Natriuret Pep 3470 H 03/02/18 03/03/18 03/03/18 22:37 04:24 04:24 Creatine Kinase 25 L CK-MB (CK-2) 0.92 0.82 Troponin I 0.036 0.034 NT-Pro-B Natriuret Pep 03/03/18 03/03/18 03/04/18 10:40 10:40 05:22 Creatine Kinase 24 L CK-MB (CK-2) 0.62 Troponin I 0.018 NT-Pro-B Natriuret Pep 3140 H 03/05/18 03/06/18 03/08/18 05:08 04:58 16:14 Creatine Kinase CK-MB (CK-2) Troponin I NT-Pro-B Natriuret Pep 2970 H 3340 H 7920 H 03/09/18 03/09/18 03/09/18 09:30 09:30 15:27 Creatine Kinase 49 L 39 L CK-MB (CK-2) 0.50 Troponin I 0.080 NT-Pro-B Natriuret Pep 03/09/18 03/09/18 03/09/18 15:27 22:06 22:06 Creatine Kinase 30 L CK-MB (CK-2) 0.30 < 0.22 Troponin I 0.067 0.072 NT-Pro-B Natriuret Pep Impressions: KUB X-Ray 03/09/18 14:15 IMPRESSION: Nasogastric tube tip in the stomach. Chest X-Ray 03/15/18 06:00 IMPRESSION: No significant change when compared to the prior study. There is ongoing volume loss in the right lung base and medial left lung base. Life support lines and tubes are stable. Assessment & Plan - Diagnosis (1) Acute exacerbation of CHF (congestive heart failure) Qualifiers: Heart failure type: unspecified Qualified Code(s): I50.9 - Heart failure, unspecified Is this a current diagnosis for this admission?: Yes Plan: increased IV Lasix to 40 mg BID today, continue (2) Acute respiratory failure with hypoxia and hypercapnia Is this a current diagnosis for this admission?: Yes Plan: Continue ventilator to maximize oxygenation and ventilation. Daily weaning trials. (3) COPD (chronic obstructive pulmonary disease) with emphysema Qualifiers: Emphysema type: centrilobular Qualified Code(s): J43.2 - Centrilobular emphysema Is this a current diagnosis for this admission?: Yes Plan: Continue steroids and bronchodilators (4) Morbid obesity with alveolar hypoventilation Is this a current diagnosis for this admission?: Yes (5) Peripheral edema Is this a current diagnosis for this admission?: Yes Plan: Improved. continue IV Lasix 40 mg twice daily (6) Cellulitis Is this a current diagnosis for this admission?: Yes Plan: skin cx + pseudomonas, E coli, enterococcus. Switched Zosyn to meropenem according to sensitivity - Time Time Spent with patient: 35 or more minutes Total Critical Time (Minutes): 35
[2018-03-15] MEDS: NORMAL SALINE 1000 ML 1,000 ML IV PRN (18:15)
[2018-03-15] MEDS: SIMVASTATIN 10 MG TABLET NG SCH (22:07)
[2018-03-16] MEDS: GABAPENTIN 300 MG CAPSULE NG SCH ×2 (00:03→05:52)
[2018-03-16] MEDS: MEROPENEM 1 GM in NORMAL SALINE 50 ML IV SCH ×3 (01:53→17:00)
[2018-03-16] MEDS: LEVALBUTEROL HCL NEB 1.25 MG/3 ML AMPUL NEB SCH ×4 (02:50→20:43)
[2018-03-16] MEDS: HEPARIN SOD (PORCINE) 5,000 UNIT/ML 1 ML SYRINGE SUBCUT SCH ×3 (05:34→22:10)
[2018-03-16 05:36] LABS: HEMOGLOBIN 10.6 g/dL (13.5-17.0); MEAN CORPUSCULAR HEMOGLOBIN 25.4 pg (27.0-33.4); MEAN CORPUSCULAR HGB CONC 31.2 g/dL (32.0-36.0); MEAN CORPUSCULAR VOLUME 81 fl (80-97); PLATELET COUNT 141 10^3/uL (150-450); RED BLOOD COUNT 4.18 10^6/uL (4.35-5.55); RED CELL DISTRIBUTION WIDTH 17.7 % (11.5-14.0); WHITE BLOOD COUNT 7.5 10^3/uL (4.0-10.5)
[2018-03-16 05:39] LABS: ARTERIAL BLOOD BASE EXCESS 10.3 mmol/L; ARTERIAL BLOOD H2CO3 1.34 mmol/L (1.05-1.35); ARTERIAL BLOOD HCO3 34.6 mmol/L (20-24); ARTERIAL BLOOD O2 SATURATION 95.6 % (94-98); ARTERIAL BLOOD PCO2 44.6 mmHg (35-45); ARTERIAL BLOOD PH 7.51 (7.35-7.45); ARTERIAL BLOOD PO2 71.8 mmHg (80-100); ARTERIAL BLOOD TOTAL CO2 35.9 mmol/L (23-27)
[2018-03-16 05:40] LABS: ARTERIAL BLOOD FIO2 45%
[2018-03-16 05:55] LABS: ANION GAP 6 (5-19); BLOOD UREA NITROGEN 38 mg/dL (7-20); CALCIUM 8.2 mg/dL (8.4-10.2); CARBON DIOXIDE 34 mmol/L (22-30); CHLORIDE 104 mmol/L (98-107); GLUCOSE 199 mg/dL (75-110); POTASSIUM 4.5 mmol/L (3.6-5.0); SODIUM 144.3 mmol/L (137-145)
--- NOTE | 2018-03-16 07:23 | RADIOLOGY REPORT (SQ) ---
EXAM DESCRIPTION: XR CHEST 1 VIEW COMPLETED DATE/TME: 03/16/2018 06:00 CLINICAL HISTORY: 67 years Male, chf COMPARISON: One day prior. NUMBER OF VIEWS/TECHNIQUE: 1/AP FINDINGS: Mild hazy opacity-effusion of the right lower hemithorax. Adequate appearing endotracheal tube. Adequate appearing enteric tube with tip at the left upper abdominal quadrant. Adequate appearing right jugular central line. Adequate appearing left jugular central line. Mildly enlarged cardiac silhouette. No pneumothorax. Stable bony thorax. IMPRESSION: No significant change.
[2018-03-16] MEDS: INSULIN GLARGINE,HUM.REC.ANLOG 1,000 UNIT/10 ML UNIT SUBCUT SCH (07:57)
--- NOTE | 2018-03-16 09:12 | CONSULTATION REPORT E ---
Consultation Report NAME: THEODORE SON : 1950 AGE: 67Y DATE: 03/15/2018 ROOM: 612 A TO: JOANNA GAMINO M.D. FROM: SARAH CARO M.D. Requesting Physician HISTORY OF PRESENT ILLNESS: The patient is a 67-year-old male with past medical history of congestive heart failure, COPD with home oxygen therapy, obstructive sleep apnea, morbid obesity, opioid-dependent chronic pain, and insulin-dependent diabetes, consulted because of acute respiratory failure. The patient has been on invasive mechanical ventilation for the last few days, treated for pneumonia of right lower lobe, positive for Pseudomonas in the sputum culture done on March 13, 2018, currently on IV meropenem. PAST MEDICAL HISTORY: History of congestive heart failure, hyperlipidemia, hypertension, past history of COPD, diabetes mellitus type 2, history of lymphoma and arthritis. PAST SURGICAL HISTORY: None. SOCIAL HISTORY: The patient smokes every day per his admission, about 4 packs per day, last smoke was March 02, 2018. Denies alcohol abuse. FAMILY HISTORY: COPD and diabetes. MEDICATIONS: Medications at home include Zocor, albuterol inhaler, aspirin, carvedilol, Lasix, gabapentin, insulin, and oxycodone. ALLERGIES: No known drug allergies. REVIEW OF SYSTEMS: CONSTITUTIONAL: Positive for fatigue, weight gain. Denies any fever, headache, or night sweats. EYES: No visual disturbances. EARS: No hearing changes. CARDIOVASCULAR: Exertional dyspnea, edema, orthopnea. No chest pain. RESPIRATORY: Complains of increased cough. No hemoptysis. No sputum. GASTROINTESTINAL: Denies any abdominal pain, diarrhea, hematemesis, vomiting, or nausea. GENITOURINARY: No dysuria or hematuria. EXTREMITIES: No joint swelling or cellulitis. PHYSICAL EXAMINATION: GENERAL: The patient currently is sedated, afebrile, not in apparent respiratory distress. VITAL SIGNS: Temperature is 99.7 with a T-max of 99.7. Heart rate is 74, blood pressure is 117/92, respiratory rate 18, and saturation is 93% on invasive mechanical ventilation using a SIMV with a rate of 18, tidal volume of 500, pressure support of 10, PEEP of 5, and FiO2 is still 50%. EYES: No jaundice or pallor. EARS, NOSE, AND THROAT: No ear drainage. No nasal discharge. CHEST AND LUNGS: No wheezing noted. Fine rales bibasilarly. No coarse crackles. CARDIOVASCULAR: S1, S2 distinct. Regular rate and rhythm. ABDOMEN: Flabby. Positive bowel sounds. Soft, nondistended, tolerating the NG tube feeding at 30 mL/hr. No diarrhea noted. No vomiting. EXTREMITIES: No joint swelling and no cellulitis. DIAGNOSTICS: Laboratory done today showed a white count of 7.1, hemoglobin is 10.6, hematocrit is 34.4, platelet count is 132. ABG done today showed pH of 7.48, PCO2 55.8, PO2 52.5, and ABG oxygen saturation 96.5. Chemistry showed sodium is 148, potassium 4.3, chloride 107, CO2 44, BUN 43, creatinine 1.02, glucose 181, and calcium 8.2. Sputum culture on March 13 showed Pseudomonas aeruginosa. ASSESSMENT: 1. Acute respiratory failure requiring invasive mechanical ventilation, seems to be improving with continued endotracheal tube secretions, currently on IV meropenem for Pseudomonas pneumonia. We will try the spontaneous breathing trial tomorrow and determine if the patient can be extubated. 2. Pseudomonas Pneumonia, right lower lobe. 3. History of COPD and congestive heart failure, appears to be improving, currently not in acute bronchospasm. PLAN/RECOMMENDATIONS: 1. Do a sedation vacation every day and spontaneous breathing trial every day if doing well. 2. Continue IV meropenem. 3. Continue ventilator support and nutrition support. 4. Start Tube feeding tonight at 20 ml per hour. 5. Ordered new labs and chest x-ray for tomorrow. Time spent 50 minutes in taking care of patient - reviewing and analyzing clinical condition and formulating new treatment plan. DICTATING PHYSICIAN: JOANNA GAMINO MD,VERONIKA,MPH [id number] PHY#: [id number] ID: [id number] JOB#: [id number] ACCT: [id number] cc:JOANNA GAMINO M.D. > [facility] CENTERMohinder
[2018-03-16] MEDS: ASPIRIN 81 MG TABLET, CHEWABLE NG SCH (09:22)
[2018-03-16] MEDS: FUROSEMIDE INJ/PF 40 MG/4 ML SDV IV SCH ×2 (09:22→22:09)
[2018-03-16] MEDS: METHYLPREDNISOLONE INJ 40 MG/1 ML SDV IV SCH ×2 (09:22→22:10)
[2018-03-16] MEDS: PANTOPRAZOLE SODIUM 40 MG VIAL IV SCH (09:22)
--- NOTE | 2018-03-16 09:48 | PDOC PROGRESS REPORT ---
Subjective Progress Note for:: 03/16/18 Subjective:: Patient was seen and examined today. He is intubated. he is off sedation for a couple of hours now. he is shook my hands and appears comfortable. he is on PSV/CPAP weaning trial and minute ventillation is 6.2 liters, and he is pulling TV around 550ml. FiO2 45%, normal BP and heart rate. he tends to "forget to breathe" and his resp rate drops but when reminded, he breathes normal. Reason For Visit: CHF Physical Exam Vital Signs: Temp Pulse Resp BP Pulse Ox 98.4 F 77 14 133/98 H 96 03/16/18 07:57 03/16/18 09:24 03/16/18 09:24 03/16/18 09:04 03/16/18 09:24 Intake & Output 03/15/18 03/16/18 03/17/18 06:59 06:59 06:59 Intake Total 1344 1250 78 Output Total 4150 4350 275 Balance -2806 -3100 -197 Weight 288 lb 12.889 oz 277 lb 12.519 oz General appearance: PRESENT: cooperative, obese, other - intubated Head exam: PRESENT: atraumatic, normocephalic Ear exam: ABSENT: bleeding, drainage Mouth exam: PRESENT: moist, neck supple Neck exam: ABSENT: meningismus, tenderness Respiratory exam: PRESENT: clear to auscultation ernesto. ABSENT: accessory muscle use Cardiovascular exam: PRESENT: RRR Pulses: PRESENT: normal radial pulses GI/Abdominal exam: PRESENT: normal bowel sounds, soft. ABSENT: tenderness Rectal exam: PRESENT: deferred Neurological exam: PRESENT: awake, other - intubated Results Laboratory Results: 03/16/18 05:22 03/16/18 05:22 03/15/18 03/16/18 03/16/18 12:36 05:22 05:22 WBC 7.5 RBC 4.18 L Hgb 10.6 L Hct 34.0 L MCV 81 MCH 25.4 L MCHC 31.2 L RDW 17.7 H Plt Count 141 L Carbonic Acid 1.68 H HCO3/H2CO3 Ratio 23:1 ABG pH 7.48 H ABG pCO2 55.8 H ABG pO2 82.5 ABG HCO3 40.3 H ABG O2 Saturation 96.5 ABG Base Excess 14.1 FiO2 55% Sodium 144.3 Potassium 4.5 Chloride 104 Carbon Dioxide 34 H Anion Gap 6 BUN 38 H Creatinine 1.01 Est GFR ( Amer) > 60 Est GFR (Non-Af Amer) > 60 Glucose 199 H Calcium 8.2 L 03/16/18 05:25 WBC RBC Hgb Hct MCV MCH MCHC RDW Plt Count Carbonic Acid 1.34 HCO3/H2CO3 Ratio 25:1 ABG pH 7.51 H ABG pCO2 44.6 ABG pO2 71.8 L ABG HCO3 34.6 H ABG O2 Saturation 95.6 ABG Base Excess 10.3 FiO2 45% Sodium Potassium Chloride Carbon Dioxide Anion Gap BUN Creatinine Est GFR ( Amer) Est GFR (Non-Af Amer) Glucose Calcium 03/13/18 13:45 Sputum Gram Stain - Final 03/13/18 13:45 Sputum Sputum Culture - Final Pseudomonas Aeruginosa Normal Brittny Absent 03/02/18 03/02/18 03/02/18 18:56 21:12 22:37 Creatine Kinase 30 L CK-MB (CK-2) Troponin I 0.029 0.034 NT-Pro-B Natriuret Pep 3470 H 03/02/18 03/03/18 03/03/18 22:37 04:24 04:24 Creatine Kinase 25 L CK-MB (CK-2) 0.92 0.82 Troponin I 0.036 0.034 NT-Pro-B Natriuret Pep 03/03/18 03/03/18 03/04/18 10:40 10:40 05:22 Creatine Kinase 24 L CK-MB (CK-2) 0.62 Troponin I 0.018 NT-Pro-B Natriuret Pep 3140 H 03/05/18 03/06/18 03/08/18 05:08 04:58 16:14 Creatine Kinase CK-MB (CK-2) Troponin I NT-Pro-B Natriuret Pep 2970 H 3340 H 7920 H 03/09/18 03/09/18 03/09/18 09:30 09:30 15:27 Creatine Kinase 49 L 39 L CK-MB (CK-2) 0.50 Troponin I 0.080 NT-Pro-B Natriuret Pep 03/09/18 03/09/18 03/09/18 15:27 22:06 22:06 Creatine Kinase 30 L CK-MB (CK-2) 0.30 < 0.22 Troponin I 0.067 0.072 NT-Pro-B Natriuret Pep Impressions: KUB X-Ray 03/09/18 14:15 IMPRESSION: Nasogastric tube tip in the stomach. Chest X-Ray 03/16/18 06:00 IMPRESSION: No significant change. Assessment & Plan - Diagnosis (1) Acute exacerbation of CHF (congestive heart failure) Qualifiers: Heart failure type: unspecified Qualified Code(s): I50.9 - Heart failure, unspecified Is this a current diagnosis for this admission?: Yes Plan: increased IV Lasix to 40 mg BID yesterday, continue. renal function and blood pressure stable. (2) Acute respiratory failure with hypoxia and hypercapnia Is this a current diagnosis for this admission?: Yes Plan: Continue ventilator to maximize oxygenation and ventilation. Daily weaning trials. Possible extubation today. Defer to Dr. Finney. (3) COPD (chronic obstructive pulmonary disease) with emphysema Qualifiers: Emphysema type: centrilobular Qualified Code(s): J43.2 - Centrilobular emphysema Is this a current diagnosis for this admission?: Yes Plan: Continue steroids and bronchodilators (4) Morbid obesity with alveolar hypoventilation Is this a current diagnosis for this admission?: Yes (5) Peripheral edema Is this a current diagnosis for this admission?: Yes Plan: Improved. continue IV Lasix 40 mg twice daily (6) Cellulitis Is this a current diagnosis for this admission?: Yes Plan: skin cx + pseudomonas, E coli, enterococcus. Switched Zosyn to meropenem according to sensitivity (since 03/13/18) - Time Time Spent with patient: 35 or more minutes Total Critical Time (Minutes): 35
[2018-03-16] MEDS ORDERED: DEXTROSE 40% GEL 15 GM TUBE PO PRN ×2 (12:30)
[2018-03-16] MEDS ORDERED: MAG HYDROX/AL HYDROX/SIMETH SUSP 30 ML UDCUP PO PRN (12:30)
[2018-03-16] MEDS ORDERED: MAGNESIUM HYDROXIDE SUSP 30 ML UDCUP PO PRN (12:30)
[2018-03-16] MEDS: INSULIN LISPRO 100 UNIT/ML 3 ML VIAL SUBCUT SCH ×3 (12:55→22:17)
[2018-03-16 13:45] LABS: ARTERIAL BLOOD H2CO3 1.57 mmol/L (1.05-1.35); ARTERIAL BLOOD HCO3 35.5 mmol/L (20-24); ARTERIAL BLOOD O2 SATURATION 98.1 % (94-98); ARTERIAL BLOOD PCO2 52.2 mmHg (35-45); ARTERIAL BLOOD PH 7.45 (7.35-7.45); ARTERIAL BLOOD PO2 109.6 mmHg (80-100); ARTERIAL BLOOD TOTAL CO2 37.2 mmol/L (23-27)
[2018-03-16 13:49] LABS: ARTERIAL BLOOD FIO2 40%
[2018-03-16] MEDS ORDERED: DILTIAZEM HCL/D5W 125 MG/125 ML RTUINJ IV ONE (15:35)
[2018-03-16] MEDS: DILTIAZEM HCL/D5W 125 MG/125 ML RTUINJ IV PRN (15:40)
[2018-03-16 16:41] LABS: ARTERIAL BLOOD BASE EXCESS 8.2 mmol/L; ARTERIAL BLOOD FIO2 40%; ARTERIAL BLOOD H2CO3 1.38 mmol/L (1.05-1.35); ARTERIAL BLOOD HCO3 32.9 mmol/L (20-24); ARTERIAL BLOOD O2 SATURATION 95.4 % (94-98); ARTERIAL BLOOD PCO2 45.9 mmHg (35-45); ARTERIAL BLOOD PH 7.47 (7.35-7.45); ARTERIAL BLOOD PO2 72.7 mmHg (80-100); ARTERIAL BLOOD TOTAL CO2 34.3 mmol/L (23-27)
[2018-03-16] MEDS: GABAPENTIN 300 MG CAPSULE PO SCH (17:01)
[2018-03-16] MEDS: SIMVASTATIN 10 MG TABLET PO SCH (22:10)
--- NOTE | 2018-03-16 23:53 | Progress Note ---
Provider Note Provider Note: CARDIOLOGY PROGRESS NOTE by Dr. Corina Foster on 03/16/2018. SUBJECTIVE: The patient has been extubated. He is on a BiPAP. He was earlier in atrial fibrillation with fast ventricular response this morning. He was started on IV Cardizem drip. At present the patient is in sinus rhythm with a right bundle branch block pattern. There is no ventricular arrhythmia seen. The patient has some mild shortness of breath, but states that his shortness of breath is much improved. He has no PND orthopnea. There is no leg edema. There is no TIA CVA symptoms. As per the the patient has not been on chronic anticoagulation. He has a history of hypertension. He has moderate cardiomyopathy with a LV ejection fraction 40-45% by prior echo. He also has moderate pulmonary hypertension with right ventricle systolic pressure of 61 mmHg. His past stress test showed inferior wall MN. 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 He also has a history of proximal atrial fibrillation.. As per there is no bleeding complications or contraindications for the patient to be on chronic anticoagulation. Note that the patient was extubated this morning. PHYSICAL EXAMINATION: The patient is moderate to moderate morbidly obese. In no acute distress. He is well-groomed. Selected Entries 03/16/18 03/16/18 03/16/18 14:00 16:00 17:01 Core 98.6 F Temperature Heart Rate ( 132 Monitors) Respiratory 16 Rate Blood Pressure 133/108 H Blood Pressure 116 Mean O2 Sat by Pulse 93 93 Oximetry Oxygen Delivery Nasal Cannula Bi-pap Method ( includes room air) Oxygen Flow 4 Rate Percent of 40 Oxygen 03/16/18 03/16/18 17:30 17:31 Core 98.6 F Temperature Heart Rate ( 75 Monitors) Respiratory 20 Rate Blood Pressure 128/78 H Blood Pressure 94 Mean O2 Sat by Pulse 94 Oximetry Oxygen Delivery Method ( includes room air) Oxygen Flow Rate Percent of Oxygen HEAD: Head is atraumatic and normocephalic. EYES: Pupils are equal round regular reactive to light accommodation. Extraocular movements are normal, there is no conjunctival pallor, and no scleral icterus. EARS: Tympanic membranes are intact external auditory canals are clear. NOSE: There is no inflammation of the nasal mucous membrane there is no deviated nasal septum. MOUTH: Mucous membranes of mouth and tongue are moist, there is no ulcers in the mouth or tongue, and no bleeding from the gums. THROAT: There is no redness of the oropharynx, no exudate seen. SKIN: There is no petechia or ecchymosis. There is no rashes or lesions. NECK: Supple. There is no JVD. Carotids are equal there is no bruit. There is no lymphadenopathy. There is no goiter. Trachea central LUNGS: There is diminished air entry and prolonged expiration. Clear to auscultation bilaterally, no wheezes, rales, but there is diffuse rhonchi. On percussion there is hyperresonance although there is no chest wall tenderness HEART: S1 and S2 are heard. S1 is of normal intensity, there is no S3 or S4 gallops. There is a systolic murmur the left sternal border and the apex. There is no rub. ABDOMEN: Normoactive bowel sounds, soft, nontender, no masses, no rebound, no guarding. There is no hepatosplenomegaly. EXTREMITIES: Femorals are slightly diminished. There is no femoral bruits. Leg pulses are diminished. There is no pedal edema. There is no DVT or cellulitis. There is no cyanosis or clubbing. There is no calf tenderness. NEUROLOGICAL the patient is awake alert oriented 3 with no focal deficits. PSYCHIATRIC: The patient judgment and insight are intact his affect is normal. 03/16/18 03/16/18 03/16/18 05:22 05:22 16:17 WBC 7.5 RBC 4.18 L Hgb 10.6 L Hct 34.0 L MCV 81 MCH 25.4 L MCHC 31.2 L RDW 17.7 H Plt Count 141 L ABG pH 7.47 H ABG pCO2 45.9 H ABG pO2 72.7 L ABG HCO3 32.9 H ABG Total CO2 34.3 H ABG O2 Saturation 95.4 ABG Base Excess 8.2 FiO2 40% Sodium 144.3 Potassium 4.5 Chloride 104 Carbon Dioxide 34 H Anion Gap 6 BUN 38 H Creatinine 1.01 Est GFR (Non-Af Amer) > 60 Glucose 199 H Calcium 8.2 L EKG: Shows atrial fibrillation with rapid ventricular response, and right bundle branch block pattern. IMPRESSION/RECOMMENDATION: 1. Paroxysmal atrial fibrillation. At present patient in sinus rhythm on a Cardizem drip. Note the patient's Abundio 2 vascular score is 5/10 patient at high risk for CVA. [1 point each for age, hypertension, diabetes mellitus, coronary artery disease, and cardiomyopathy] would recommend starting the patient on El iquis 5 mg p.o. twice daily. 2. Acute on chronic respiratory failure with hypoxemia and hypercapnia: Patient extubated, and improving slowly. Continue respiratory treatments and antibiotics. 3. Acute exacerbation of COPD: Seems to be much improved. Continue current treatment. 4. Hypertension: Blood pressure well controlled. 5. Coronary artery disease: At present no evidence of anginal symptoms. 6. 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 7. History of diabetes mellitus type 2 insulin-dependent. Continue insulin and monitor blood sugar and adjust insulin dosage as per blood sugar. 8. Tobacco abuse: Tobacco cessation counseling given. 3 minutes spent on this. 9. Moderate pulmonary hypertension: Discussed with the patient the importance of wearing BiPAP and tobacco cessation. 10. History of sleep apnea. Intolerant to CPAP. 11. RIGHT BUNDLE BRANCH PATTERN. MEDICATIONS reviewed. Medications adjusted. Medical decision making is of high complexity. 40 minutes spent on this patient with more than 50% of time spent in direct patient care. The patient is a full code. His is a surrogate healthcare decision maker. Discussed the patient's condition with the patient and the patient's . Discussed with the attending physician on the case and formulated and management plan. Will follow.
[2018-03-17] MEDS: GABAPENTIN 300 MG CAPSULE PO SCH ×4 (00:17→17:22)
[2018-03-17] MEDS: LEVALBUTEROL HCL NEB 1.25 MG/3 ML AMPUL NEB SCH ×4 (02:23→19:32)
[2018-03-17] MEDS: MEROPENEM 1 GM in NORMAL SALINE 50 ML IV SCH ×3 (02:50→17:21)
--- NOTE | 2018-03-17 06:46 | RADIOLOGY REPORT (SQ) ---
EXAM DESCRIPTION: XR CHEST 1 VIEW COMPLETED DATE/TME: 03/17/2018 06:00 CLINICAL HISTORY: Respiratory Distress. 67 years Male, resp failure COMPARISON: One day prior. NUMBER OF VIEWS/TECHNIQUE: 1/AP FINDINGS: Small right basilar hazy opacity-effusion, small left lower retrocardiac opacity. Adequate appearing right jugular central line. Adequate appearing left jugular central line. Mildly enlarged cardiac silhouette. No pneumothorax. Stable bony thorax. IMPRESSION: No significant change.
[2018-03-17 06:58] LABS: ARTERIAL BLOOD H2CO3 1.32 mmol/L (1.05-1.35); ARTERIAL BLOOD HCO3 29.6 mmol/L (20-24); ARTERIAL BLOOD O2 SATURATION 97.4 % (94-98); ARTERIAL BLOOD PCO2 43.8 mmHg (35-45); ARTERIAL BLOOD PH 7.45 (7.35-7.45)
[2018-03-17 06:59] LABS: ARTERIAL BLOOD FIO2 40%
[2018-03-17 07:06] LABS: ABSOLUTE LYMPHOCYTES (AUTO) 0.4 10^3/uL (0.5-4.7); ABSOLUTE MONOCYTES (AUTO) 0.4 10^3/uL (0.1-1.4); ABSOLUTE NEUT (AUTO) 6.4 10^3/uL (1.7-8.2); HEMATOCRIT 36.3 % (37.9-51.0); HEMOGLOBIN 11.3 g/dL (13.5-17.0); LYMPHOCYTES % (AUTO) 5.1 % (13-45); MEAN CORPUSCULAR HEMOGLOBIN 24.9 pg (27.0-33.4); MEAN CORPUSCULAR VOLUME 80 fl (80-97); MONOCYTES % (AUTO) 5.9 % (3-13); PLATELET COUNT 157 10^3/uL (150-450); RED BLOOD COUNT 4.52 10^6/uL (4.35-5.55); RED CELL DISTRIBUTION WIDTH 17.6 % (11.5-14.0); TOTAL CELLS COUNTED % (AUTO) 100 %; WHITE BLOOD COUNT 7.2 10^3/uL (4.0-10.5)
[2018-03-17 07:16] LABS: ALANINE AMINOTRANSFERASE 170 U/L (21-72); ALBUMIN 3.4 g/dL (3.5-5.0); ALKALINE PHOSPHATASE 114 U/L (38-126); ANION GAP 6 (5-19); ASPARTATE AMINO TRANSFERASE 63 U/L (17-59); BILIRUBIN,DIRECT 0.5 mg/dL (0.0-0.4); BILIRUBIN,TOTAL 1.1 mg/dL (0.2-1.3); BLOOD UREA NITROGEN 33 mg/dL (7-20); CALCIUM 8.2 mg/dL (8.4-10.2); CARBON DIOXIDE 34 mmol/L (22-30); CHLORIDE 99 mmol/L (98-107); GLUCOSE 147 mg/dL (75-110); POTASSIUM 4.6 mmol/L (3.6-5.0); SODIUM 138.7 mmol/L (137-145); TOTAL PROTEIN 5.5 g/dL (6.3-8.2)
--- NOTE | 2018-03-17 07:59 | EKG REPORT ---
SEVERITY:- ABNORMAL ECG - ATRIAL FIBRILLATION, V-RATE [id number] RIGHT BUNDLE BRANCH BLOCK INFERIOR INFARCT, AGE INDETERMINATE OLD ANTERIOR IA : Confirmed by: Dima Rodríguez MD 17-Mar-2018 07:58:26
[2018-03-17] MEDS: INSULIN LISPRO 100 UNIT/ML 3 ML VIAL SUBCUT SCH ×4 (08:16→21:47)
[2018-03-17] MEDS: DILTIAZEM HCL/D5W 125 MG/125 ML RTUINJ IV PRN (08:17)
[2018-03-17] MEDS ORDERED: METOPROLOL SUCCINATE 25 MG TAB.SR.24H PO SCH (10:00)
[2018-03-17] MEDS: FUROSEMIDE INJ/PF 40 MG/4 ML SDV IV SCH ×2 (10:07→21:36)
[2018-03-17] MEDS: ASPIRIN 81 MG TABLET, CHEWABLE PO SCH (10:07)
[2018-03-17] MEDS: INSULIN GLARGINE,HUM.REC.ANLOG 1,000 UNIT/10 ML UNIT SUBCUT SCH (10:07)
[2018-03-17] MEDS: APIXABAN 5 MG TABLET PO SCH ×2 (10:07→17:22)
[2018-03-17] MEDS: METHYLPREDNISOLONE INJ 40 MG/1 ML SDV IV SCH ×2 (10:08→21:36)
[2018-03-17] MEDS: GABAPENTIN 300 MG CAPSULE NG SCH (10:59)
[2018-03-17] MEDS: METOPROLOL SUCCINATE 25 MG TAB.SR.24H PO SCH ×2 (11:40→21:36)
[2018-03-17] MEDS: NORMAL SALINE 1000 ML 1,000 ML IV PRN (14:39)
--- NOTE | 2018-03-17 16:50 | PDOC PROGRESS REPORT ---
Subjective Progress Note for:: 03/17/18 Subjective:: Patient was seen and examined today. He was extubated yesterday. He is awake and oriented. He feels better. He was on BiPAP and now on just nasal cannula. Reason For Visit: CHF Physical Exam Vital Signs: Temp Pulse Resp BP Pulse Ox 97.5 F 65 21 H 103/88 H 94 03/17/18 12:00 03/17/18 14:00 03/17/18 14:00 03/17/18 14:00 03/17/18 14:00 Intake & Output 03/16/18 03/17/18 03/18/18 06:59 06:59 06:59 Intake Total 1250 1204 173 Output Total 6155 11389 1999 Balance -8432 -93125 -6376 Weight 277 lb 12.519 oz 267 lb 13.786 oz General appearance: PRESENT: cooperative, obese Head exam: PRESENT: atraumatic, normocephalic Eye exam: PRESENT: EOMI. ABSENT: nystagmus Mouth exam: PRESENT: moist, neck supple Neck exam: ABSENT: meningismus, tenderness Respiratory exam: PRESENT: prolonged expiratory phas, rhonchi, wheezes Cardiovascular exam: PRESENT: RRR Pulses: PRESENT: normal radial pulses GI/Abdominal exam: PRESENT: normal bowel sounds, soft Rectal exam: PRESENT: deferred Neurological exam: PRESENT: alert, awake, oriented to person, oriented to place, oriented to time, oriented to situation Psychiatric exam: PRESENT: appropriate affect Results Laboratory Results: 03/17/18 06:30 03/17/18 06:30 03/17/18 03/17/18 03/17/18 06:30 06:30 06:30 WBC 7.2 RBC 4.52 Hgb 11.3 L Hct 36.3 L MCV 80 MCH 24.9 L MCHC 31.0 L RDW 17.6 H Plt Count 157 Seg Neutrophils % 89.0 H Lymphocytes % 5.1 L Monocytes % 5.9 Eosinophils % 0.0 Basophils % 0.0 Absolute Neutrophils 6.4 Absolute Lymphocytes 0.4 L Absolute Monocytes 0.4 Absolute Eosinophils 0.0 Absolute Basophils 0.0 Carbonic Acid HCO3/H2CO3 Ratio ABG pH ABG pCO2 ABG pO2 ABG HCO3 ABG O2 Saturation ABG Base Excess FiO2 Sodium 138.7 Potassium 4.6 Chloride 99 Carbon Dioxide 34 H Anion Gap 6 BUN 33 H Creatinine 0.82 Est GFR ( Amer) > 60 Est GFR (Non-Af Amer) > 60 Glucose 147 H Calcium 8.2 L Magnesium 2.3 Total Bilirubin 1.1 AST 63 H ALT 170 H Alkaline Phosphatase 114 Total Protein 5.5 L Albumin 3.4 L 03/17/18 06:48 WBC RBC Hgb Hct MCV MCH MCHC RDW Plt Count Seg Neutrophils % Lymphocytes % Monocytes % Eosinophils % Basophils % Absolute Neutrophils Absolute Lymphocytes Absolute Monocytes Absolute Eosinophils Absolute Basophils Carbonic Acid 1.32 HCO3/H2CO3 Ratio 22:1 ABG pH 7.45 ABG pCO2 43.8 ABG pO2 93.0 ABG HCO3 29.6 H ABG O2 Saturation 97.4 ABG Base Excess 5.0 FiO2 40% Sodium Potassium Chloride Carbon Dioxide Anion Gap BUN Creatinine Est GFR ( Amer) Est GFR (Non-Af Amer) Glucose Calcium Magnesium Total Bilirubin AST ALT Alkaline Phosphatase Total Protein Albumin 03/02/18 03/02/18 03/02/18 18:56 21:12 22:37 Creatine Kinase 30 L CK-MB (CK-2) Troponin I 0.029 0.034 NT-Pro-B Natriuret Pep 3470 H 03/02/18 03/03/18 03/03/18 22:37 04:24 04:24 Creatine Kinase 25 L CK-MB (CK-2) 0.92 0.82 Troponin I 0.036 0.034 NT-Pro-B Natriuret Pep 03/03/18 03/03/18 03/04/18 10:40 10:40 05:22 Creatine Kinase 24 L CK-MB (CK-2) 0.62 Troponin I 0.018 NT-Pro-B Natriuret Pep 3140 H 03/05/18 03/06/18 03/08/18 05:08 04:58 16:14 Creatine Kinase CK-MB (CK-2) Troponin I NT-Pro-B Natriuret Pep 2970 H 3340 H 7920 H 03/09/18 03/09/18 03/09/18 09:30 09:30 15:27 Creatine Kinase 49 L 39 L CK-MB (CK-2) 0.50 Troponin I 0.080 NT-Pro-B Natriuret Pep 03/09/18 03/09/18 03/09/18 15:27 22:06 22:06 Creatine Kinase 30 L CK-MB (CK-2) 0.30 < 0.22 Troponin I 0.067 0.072 NT-Pro-B Natriuret Pep Impressions: KUB X-Ray 03/09/18 14:15 IMPRESSION: Nasogastric tube tip in the stomach. Chest X-Ray 03/17/18 06:00 IMPRESSION: No significant change. Assessment & Plan - Diagnosis (1) Acute exacerbation of CHF (congestive heart failure) Qualifiers: Heart failure type: unspecified Qualified Code(s): I50.9 - Heart failure, unspecified Is this a current diagnosis for this admission?: Yes Plan: Continue IV Lasix to 40 mg BID. Monitor renal function. (2) Acute respiratory failure with hypoxia and hypercapnia Is this a current diagnosis for this admission?: Yes Plan: Patient was extubated 03/16/2018. Now stable on nasal cannula oxygen. (3) COPD (chronic obstructive pulmonary disease) with emphysema Qualifiers: Emphysema type: centrilobular Qualified Code(s): J43.2 - Centrilobular emphysema Is this a current diagnosis for this admission?: Yes Plan: Continue steroids and bronchodilators. Hopefully we can switch to oral prednisone tomorrow. He said he quit smoking almost 2 years ago. (4) Morbid obesity with alveolar hypoventilation Is this a current diagnosis for this admission?: Yes Plan: Recommend healthy lifestyle (5) Peripheral edema Is this a current diagnosis for this admission?: Yes Plan: Improved. continue IV Lasix 40 mg twice daily (6) Cellulitis Is this a current diagnosis for this admission?: Yes Plan: skin cx + pseudomonas, E coli, enterococcus. Switched Zosyn to meropenem according to sensitivity (since 03/13/18). Monitor clinically. Monitor white count. (7) Atrial fibrillation Is this a current diagnosis for this admission?: Yes Plan: Continue Cardizem. Continue Eliquis. Appreciate Dr. Suárez input.
[2018-03-17] MEDS: SIMVASTATIN 10 MG TABLET PO SCH (21:36)
--- NOTE | 2018-03-17 23:40 | Progress Note ---
Provider Note Provider Note: CARDIOLOGY PROGRESS NOTE by Dr. Corina Moura on 03/17/2018. SUBJECTIVE: The patient denies any chest pain or discomfort. He states his breathing is better, and is less short of breath. He is improving slowly. He has cough without any production of sputum. He has no chest pain which is pleuritic in nature. There is no hemoptysis. There is no PND. He denies any orthopnea. There is no leg edema. The patient remains in sinus rhythm with no recurrence of atrial fibrillation. There is no ventricular arrhythmia seen on the monitor. There is no bleeding on Eliquis which has been started. He has no TIA CVA symptoms. PHYSICAL EXAMINATION: The patient is moderate to morbidly obese. He is well-groomed. He is on the BiPAP, but in no acute distress. Selected Entries 03/17/18 08:00 Temperature 96.6 F L Pulse Rate 60 Respiratory 16 Rate Blood Pressure 132/76 H [Right Upper Arm] Blood Pressure 94 Mean [Right Upper Arm] Blood Pressure Supine Position [Right Upper Arm] O2 Sat by Pulse 100 Oximetry Oxygen Delivery Bi-pap Method ( includes room FiO2 is 40% air) HEAD: Head is atraumatic and normocephalic. EYES: Pupils are equal round regular reactive to light accommodation. Extraocular movements are normal, there is no conjunctival pallor, and no scleral icterus. EARS: Tympanic membranes are intact external auditory canals are clear. NOSE: There is no inflammation of the nasal mucous membrane there is no deviated nasal septum. MOUTH: Mucous membranes of mouth and tongue are moist, there is no ulcers in the mouth or tongue, and no bleeding from the gums. THROAT: There is no redness of the oropharynx, no exudate seen. SKIN: There is no petechia or ecchymosis. There is no rashes or lesions. NECK: Supple. There is no JVD. Carotids are equal there is no bruit. There is no lymphadenopathy. There is no goiter. Trachea central LUNGS: There is diminished air entry and prolonged expiration. Clear to auscultation bilaterally, no wheezes, rales, but there is diffuse rhonchi. On percussion there is hyperresonance although there is no chest wall tenderness HEART: S1 and S2 are heard. S1 is of normal intensity, there is no S3 or S4 gallops. There is a systolic murmur the left sternal border and the apex. Th ere is no rub. ABDOMEN: Normoactive bowel sounds, soft, nontender, no masses, no rebound, no guarding. There is no hepatosplenomegaly. EXTREMITIES: Femorals are slightly diminished. There is no femoral bruits. Leg pulses are diminished. There is no pedal edema. There is no DVT or cellulitis. There is no cyanosis or clubbing. There is no calf tenderness. NEUROLOGICAL the patient is awake alert oriented 3 with no focal deficits. PSYCHIATRIC: The patient judgment and insight are intact his affect is normal. 03/17/18 03/17/18 06:30 06:48 Carbonic Acid 1.32 HCO3/H2CO3 Ratio 22:1 ABG pH 7.45 ABG pCO2 43.8 ABG pO2 93.0 ABG HCO3 29.6 H ABG Total CO2 31.0 H ABG O2 Saturation 97.4 ABG Base Excess 5.0 FiO2 40% Sodium 138.7 Potassium 4.6 Chloride 99 Carbon Dioxide 34 H Anion Gap 6 BUN 33 H Creatinine 0.82 Est GFR (Non-Af Amer) > 60 Glucose 147 H Total Bilirubin 1.1 Direct Bilirubin 0.5 H Neonat Total Bilirubin Not Reportable Neonat Direct Bilirubin Not Reportable Neonat Indirect Bili Not Reportable AST 63 H ALT 170 H Alkaline Phosphatase 114 Total Protein 5.5 L Albumin 3.4 L The patient's 24-hour intake is 1204 mL, and 24-hour output is 2034 mL. The patient's chest x-ray shows a small right basilar hazy opacity/effusion. There is a small left lower lobe retrocardiac opacity mildly enlarged cardiac silhouette. No evidence of heart failure. IMPRESSION/RECOMMENDATION: 1. Paroxysmal atrial fibrillation. At present patient in sinus rhythm off IV C ardizem drip which has been stopped. Note the patient's Abundio 2 vascular score is 5/10 patient at high risk for CVA. [1 point each for age, hypertension, diabetes mellitus, coronary artery disease, and cardiomyopathy] would recommend starting the patient on Eliquis 5 mg p.o. twice daily. Continue patient beta- raine. His Cardizem drip has been discontinued 2. Acute on chronic respiratory failure with hypoxemia and hypercapnia: Patient extubated, and improving slowly. Continue respiratory treatments and antibiotics. 3. Acute exacerbation of COPD: Seems to be much improved. Continue current treatment. 4. Hypertension: Blood pressure well controlled. 5. Coronary artery disease: At present no evidence of anginal symptoms. 6. 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 7. History of diabetes mellitus type 2 insulin-dependent. Continue insulin and monitor blood sugar and adjust insulin dosage as per blood sugar. 8. Tobacco abuse: Tobacco cessation counseling given. 3 minutes spent on this. 9. Moderate pulmonary hypertension: Discussed with the patient the importance of wearing BiPAP and tobacco cessation. 10. History of sleep apnea. Intolerant to CPAP. 11. RIGHT BUNDLE BRANCH PATTERN. MEDICATIONS reviewed. Medications adjusted. Medical decision making is of high complexity. 40 minutes spent on this patient with more than 50% of time spent in direct patient care. The patient is a full code. His is a surrogate healthcare decision maker. Discussed the patient's condition with the patient and the patient's . Discussed with the attending physician on the case and formulated management plan on the patient. Will follow
[2018-03-18] MEDS: GABAPENTIN 300 MG CAPSULE PO SCH ×4 (00:57→18:13)
[2018-03-18] MEDS: MEROPENEM 1 GM in NORMAL SALINE 50 ML IV SCH ×3 (01:00→18:13)
[2018-03-18] MEDS: LEVALBUTEROL HCL NEB 1.25 MG/3 ML AMPUL NEB SCH ×4 (01:20→20:48)
[2018-03-18 06:56] LABS: HEMATOCRIT 36.7 % (37.9-51.0); HEMOGLOBIN 11.5 g/dL (13.5-17.0); MEAN CORPUSCULAR HGB CONC 31.2 g/dL (32.0-36.0); MEAN CORPUSCULAR VOLUME 80 fl (80-97); PLATELET COUNT 168 10^3/uL (150-450); RED BLOOD COUNT 4.59 10^6/uL (4.35-5.55); RED CELL DISTRIBUTION WIDTH 17.7 % (11.5-14.0); WHITE BLOOD COUNT 7.3 10^3/uL (4.0-10.5)
[2018-03-18 06:59] LABS: ARTERIAL BLOOD BASE EXCESS 5.2 mmol/L; ARTERIAL BLOOD H2CO3 1.31 mmol/L (1.05-1.35); ARTERIAL BLOOD HCO3 29.8 mmol/L (20-24); ARTERIAL BLOOD O2 SATURATION 97.1 % (94-98); ARTERIAL BLOOD PCO2 43.4 mmHg (35-45); ARTERIAL BLOOD PH 7.45 (7.35-7.45); ARTERIAL BLOOD PO2 88.9 mmHg (80-100); ARTERIAL BLOOD TOTAL CO2 31.1 mmol/L (23-27)
[2018-03-18 07:01] LABS: ARTERIAL BLOOD FIO2 40%
[2018-03-18 07:10] LABS: ANION GAP 7 (5-19); BLOOD UREA NITROGEN 34 mg/dL (7-20); CALCIUM 8.2 mg/dL (8.4-10.2); CARBON DIOXIDE 32 mmol/L (22-30); CHLORIDE 97 mmol/L (98-107); GLUCOSE 219 mg/dL (75-110); POTASSIUM 4.8 mmol/L (3.6-5.0); SODIUM 136.2 mmol/L (137-145)
--- NOTE | 2018-03-18 07:28 | RADIOLOGY REPORT (SQ) ---
EXAM DESCRIPTION: XR CHEST 1 VIEW COMPLETED DATE/TME: 03/18/2018 06:00 CLINICAL HISTORY: 67 years Male, chf Moderately enlarged cardiac silhouette. COMPARISON: One day prior. NUMBER OF VIEWS/TECHNIQUE: 1/AP FINDINGS: Mild central edema pattern, left jugular central line tip at the SVC. Right jugular central line tip at the inferior right atrium; consider 8 cm retraction of the right jugular central line. No pneumothorax. Stable bony thorax. IMPRESSION: No significant change.
[2018-03-18] MEDS: INSULIN GLARGINE,HUM.REC.ANLOG 1,000 UNIT/10 ML UNIT SUBCUT SCH (08:21)
[2018-03-18] MEDS: INSULIN LISPRO 100 UNIT/ML 3 ML VIAL SUBCUT SCH ×4 (08:22→21:48)
[2018-03-18] MEDS: METOPROLOL SUCCINATE 25 MG TAB.SR.24H PO SCH ×2 (10:57→21:49)
[2018-03-18] MEDS: APIXABAN 5 MG TABLET PO SCH ×2 (10:58→21:50)
[2018-03-18] MEDS: FUROSEMIDE INJ/PF 40 MG/4 ML SDV IV SCH ×2 (10:58→21:49)
[2018-03-18] MEDS: METHYLPREDNISOLONE INJ 40 MG/1 ML SDV IV SCH (10:58)
[2018-03-18] MEDS: ASPIRIN 81 MG TABLET, CHEWABLE PO SCH (10:58)
--- NOTE | 2018-03-18 12:44 | PDOC PROGRESS REPORT ---
Subjective Progress Note for:: 03/18/18 Subjective:: Patient was seen and examined today. He was extubated 03/16/2018. He is awake and oriented. He feels better. Stable on nasal cannula. He is off Cardizem drip now. Reason For Visit: CHF Physical Exam Vital Signs: Temp Pulse Resp BP Pulse Ox 97.7 F 62 16 114/53 L 95 03/18/18 10:00 03/18/18 10:00 03/18/18 11:00 03/18/18 10:49 03/18/18 11:00 Intake & Output 03/17/18 03/18/18 03/19/18 06:59 06:59 06:59 Intake Total 1204 1113 124 Output Total 96415 4345 250 Balance -82311 -3232 -126 Weight 267 lb 13.786 oz 268 lb 4.841 oz General appearance: PRESENT: no acute distress, cooperative, obese Head exam: PRESENT: atraumatic, normocephalic Eye exam: ABSENT: conjunctival injection Mouth exam: PRESENT: moist, neck supple Neck exam: ABSENT: meningismus, tenderness Respiratory exam: PRESENT: prolonged expiratory phas, rhonchi, wheezes. ABSENT: accessory muscle use Cardiovascular exam: PRESENT: RRR GI/Abdominal exam: PRESENT: normal bowel sounds, soft. ABSENT: tenderness Rectal exam: PRESENT: deferred Extremities exam: ABSENT: pedal edema Neurological exam: PRESENT: alert, awake, oriented to person, oriented to place, oriented to time, oriented to situation Psychiatric exam: PRESENT: appropriate affect. ABSENT: agitated, anxious Results Laboratory Results: 03/18/18 06:40 03/18/18 06:40 03/18/18 03/18/18 03/18/18 06:40 06:40 06:40 WBC 7.3 RBC 4.59 Hgb 11.5 L Hct 36.7 L MCV 80 MCH 25.0 L MCHC 31.2 L RDW 17.7 H Plt Count 168 Carbonic Acid 1.31 HCO3/H2CO3 Ratio 22:1 ABG pH 7.45 ABG pCO2 43.4 ABG pO2 88.9 ABG HCO3 29.8 H ABG O2 Saturation 97.1 ABG Base Excess 5.2 FiO2 40% Sodium 136.2 L Potassium 4.8 Chloride 97 L Carbon Dioxide 32 H Anion Gap 7 BUN 34 H Creatinine 0.86 Est GFR ( Amer) > 60 Est GFR (Non-Af Amer) > 60 Glucose 219 H Calcium 8.2 L 03/02/18 03/02/18 03/02/18 18:56 21:12 22:37 Creatine Kinase 30 L CK-MB (CK-2) Troponin I 0.029 0.034 NT-Pro-B Natriuret Pep 3470 H 03/02/18 03/03/18 03/03/18 22:37 04:24 04:24 Creatine Kinase 25 L CK-MB (CK-2) 0.92 0.82 Troponin I 0.036 0.034 NT-Pro-B Natriuret Pep 03/03/18 03/03/18 03/04/18 10:40 10:40 05:22 Creatine Kinase 24 L CK-MB (CK-2) 0.62 Troponin I 0.018 NT-Pro-B Natriuret Pep 3140 H 03/05/18 03/06/18 03/08/18 05:08 04:58 16:14 Creatine Kinase CK-MB (CK-2) Troponin I NT-Pro-B Natriuret Pep 2970 H 3340 H 7920 H 03/09/18 03/09/18 03/09/18 09:30 09:30 15:27 Creatine Kinase 49 L 39 L CK-MB (CK-2) 0.50 Troponin I 0.080 NT-Pro-B Natriuret Pep 03/09/18 03/09/18 03/09/18 15:27 22:06 22:06 Creatine Kinase 30 L CK-MB (CK-2) 0.30 < 0.22 Troponin I 0.067 0.072 NT-Pro-B Natriuret Pep Impressions: KUB X-Ray 03/09/18 14:15 IMPRESSION: Nasogastric tube tip in the stomach. Chest X-Ray 03/18/18 06:00 IMPRESSION: No significant change. Assessment & Plan - Diagnosis (1) Acute exacerbation of CHF (congestive heart failure) Qualifiers: Heart failure type: unspecified Qualified Code(s): I50.9 - Heart failure, unspecified Is this a current diagnosis for this admission?: Yes Plan: Continue IV Lasix to 40 mg BID. Monitor renal function. May switch to p.o. Lasix tomorrow. (2) Acute respiratory failure with hypoxia and hypercapnia Is this a current diagnosis for this admission?: Yes Plan: Patient was extubated 03/16/2018. Now stable on nasal cannula oxygen. (3) COPD (chronic obstructive pulmonary disease) with emphysema Qualifiers: Emphysema type: centrilobular Qualified Code(s): J43.2 - Centrilobular emphysema Is this a current diagnosis for this admission?: Yes Plan: Continue steroids and bronchodilators. Switch to oral prednisone today. He said he quit smoking almost 2 years ago. (4) Morbid obesity with alveolar hypoventilation Is this a current diagnosis for this admission?: Yes Plan: Recommend healthy lifestyle (5) Peripheral edema Is this a current diagnosis for this admission?: Yes Plan: Improved. continue IV Lasix 40 mg twice daily (6) Cellulitis Is this a current diagnosis for this admission?: Yes Plan: skin cx + pseudomonas, E coli, enterococcus. Switched Zosyn to meropenem according to sensitivity (since 03/13/18). Monitor clinically. Monitor white count. (7) Atrial fibrillation Is this a current diagnosis for this admission?: Yes Plan: He is off Cardizem drip. Continue Eliquis. Appreciate Dr. Suárez input.
[2018-03-18] MEDS: PREDNISONE 20 MG TABLET PO SCH (14:30)
[2018-03-18] MEDS: ACETAMINOPHEN 325 MG TABLET PO PRN (18:13)
[2018-03-18] MEDS: NORMAL SALINE 1000 ML 1,000 ML IV PRN (18:13)
[2018-03-18] MEDS: SIMVASTATIN 10 MG TABLET PO SCH (21:49)
--- NOTE | 2018-03-18 22:56 | Progress Note ---
Provider Note Provider Note: CARDIOLOGY PROGRESS NOTE by Dr. Corina Foster on 03/18/2018. SUBJECTIVE: The patient is using his BiPAP right now. He denies any shortness of breath in spite of wearing a BiPAP. There is no cough or sputum production. There is no PND or orthopnea. There is no leg edema. The patient remains in sinus rhythm, and there is no recurrence of atrial fibrillation. There is no ventricular arrhythmias on the monitor. There is no TIA CVA symptoms. There is no bleeding on Eliquis. PHYSICAL EXAMINATION: The patient is moderately to morbidly obese. In no acute distress he is well-groomed. Selected Entries 03/18/18 08:00 Temperature 97.2 F Temperature Core Source Pulse Rate 70 Respiratory 21 H Rate Blood Pressure 113/59 L [Right Upper Arm] Blood Pressure 77 Mean [Right Upper Arm] Blood Pressure Supine Position [Right Upper Arm] Blood Pressure 113 Systolic [Right Upper Arm] O2 Sat by Pulse 95 Oximetry Oxygen Delivery Nasal Cannula Method ( includes room air) Oxygen Flow 3 Rate HEAD: Head is atraumatic and normocephalic. EYES: Pupils are equal round regular reactive to light accommodation. Extraocular movements are normal, there is no conjunctival pallor, and no scleral icterus. EARS: Tympanic membranes are intact external auditory canals are clear. NOSE: There is no inflammation of the nasal mucous membrane there is no deviated nasal septum. MOUTH: Mucous membranes of mouth and tongue are moist, there is no ulcers in the mouth or tongue, and no bleeding from the gums. THROAT: There is no redness of the oropharynx, no exudate seen. SKIN: There is no petechia or ecchymosis. There is no rashes or lesions. NECK: Supple. There is no JVD. Carotids are equal there is no bruit. There is no lymphadenopathy. There is no goiter. Trachea central LUNGS: There is diminished air entry and prolonged expiration. Clear to auscult ation bilaterally, no wheezes, rales, but there is diffuse rhonchi. On percussion there is hyperresonance although there is no chest wall tenderness HEART: S1 and S2 are heard. S1 is of normal intensity, there is no S3 or S4 gallops. There is a systolic murmur the left sternal border and the apex. There is no rub. ABDOMEN: Normoactive bowel sounds, soft, nontender, no masses, no rebound, no gu arding. There is no hepatosplenomegaly. EXTREMITIES: Femorals are slightly diminished. There is no femoral bruits. Leg pulses are diminished. There is no pedal edema. There is no DVT or cellulitis. There is no cyanosis or clubbing. There is no calf tenderness. NEUROLOGICAL the patient is awake alert oriented 3 with no focal deficits. PSYCHIATRIC: The patient judgment and insight are intact his affect is normal. 03/18/18 03/18/18 03/18/18 06:40 06:40 06:40 WBC 7.3 RBC 4.59 Hgb 11.5 L Hct 36.7 L MCV 80 MCH 25.0 L MCHC 31.2 L RDW 17.7 H Plt Count 168 Carbonic Acid 1.31 HCO3/H2CO3 Ratio 22:1 ABG pH 7.45 ABG pCO2 43.4 ABG pO2 88.9 ABG HCO3 29.8 H ABG Total CO2 31.1 H ABG O2 Saturation 97.1 ABG Base Excess 5.2 FiO2 40% Sodium 136.2 L Potassium 4.8 Chloride 97 L Carbon Dioxide 32 H Anion Gap 7 BUN 34 H Creatinine 0.86 Est GFR (Non-Af Amer) > 60 Glucose 219 H Calcium 8.2 L Chest x-ray shows that the tip of the tip of the triple-lumen catheter is in the lower right atrium. My interpretation is that there is mild cardiomegaly, witho ut any rosario CHF. The patient's 24-hour intake has been 1113 mL. The 24-hour output is 4345 mL. IMPRESSION/RECOMMENDATION: 1. Paroxysmal atrial fibrillation. At present patient in sinus rhythm on a Cardizem drip. Note the patient's Abundio 2 vascular score is 5/10 patient at high risk for CVA. [1 point each for age, hypertension, diabetes mellitus, coronary artery disease, and cardiomyopathy] would recommend starting the patient on Eliquis 5 mg p.o. twice daily. Would recommend increasing the patient's beta- raine, as tolerated 2. Acute on chronic respiratory failure with hypoxemia and hypercapnia: Patient extubated, and improving slowly. Continue respiratory treatments and antibiotics. 3. Acute exacerbation of COPD: Seems to be much improved. Continue current treatment. 4. Hypertension: Blood pressure well controlled. 5. Coronary artery disease: At present no evidence of anginal symptoms. 6. 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 7. History of diabetes mellitus type 2 insulin-dependent. Continue insulin and monitor blood sugar and adjust insulin dosage as per blood sugar. 8. Tobacco abuse: Tobacco cessation counseling given. 3 minutes spent on this. 9. Moderate pulmonary hypertension: Discussed with the patient the importance of wearing BiPAP and tobacco cessation. 10. History of sleep apnea. Intolerant to CPAP. 11. RIGHT BUNDLE BRANCH PATTERN. MEDICATIONS reviewed. Medications adjusted. Medical decision making is of high complexity. 40 minutes spent on this patient with more than 50% of time spent in direct patient care. The patient is a full code. His is a surrogate healthcare decision maker. Discussed the patient's condition with the patient and the patient's . Discussed with the attending physician on the case and formulated and management plan. Will follow.
[2018-03-19] MEDS: GABAPENTIN 300 MG CAPSULE PO SCH ×4 (00:46→17:28)
[2018-03-19] MEDS: MEROPENEM 1 GM in NORMAL SALINE 50 ML IV SCH ×3 (01:00→17:51)
[2018-03-19] MEDS: LEVALBUTEROL HCL NEB 1.25 MG/3 ML AMPUL NEB SCH ×4 (01:54→20:18)
[2018-03-19 08:31] LABS: VENOUS BLOOD BASE EXCESS 6.9 mmol/L; VENOUS BLOOD HCO3 35.8 mmol/L (20-32); VENOUS BLOOD PH 7.3 (7.30-7.42)
[2018-03-19 08:33] LABS: VENOUS BLOOD PCO2 74.7 mmHg (35-63)
[2018-03-19 08:36] LABS: INTERNATIONAL RATION (INR) 1.09; PROTHROMBIN TIME 14.7 SEC (11.4-15.4)
[2018-03-19 08:37] LABS: PARTIAL THROMBOPLASTIN TIME 25.8 SEC (23.5-35.8)
[2018-03-19 08:51] LABS: ANION GAP 5 (5-19); BLOOD UREA NITROGEN 40 mg/dL (7-20); CALCIUM 8.3 mg/dL (8.4-10.2); CARBON DIOXIDE 35 mmol/L (22-30); CHLORIDE 97 mmol/L (98-107); GLUCOSE 229 mg/dL (75-110); PHOSPHORUS 4.9 mg/dL (2.5-4.5); POTASSIUM 4.4 mmol/L (3.6-5.0)
[2018-03-19 08:57] LABS: HEMOGLOBIN 11.3 g/dL (13.5-17.0); MEAN CORPUSCULAR HEMOGLOBIN 25.2 pg (27.0-33.4); MEAN CORPUSCULAR HGB CONC 31.3 g/dL (32.0-36.0); MEAN CORPUSCULAR VOLUME 80 fl (80-97); PLATELET COUNT 157 10^3/uL (150-450); RED BLOOD COUNT 4.48 10^6/uL (4.35-5.55); RED CELL DISTRIBUTION WIDTH 17.5 % (11.5-14.0); WHITE BLOOD COUNT 10.3 10^3/uL (4.0-10.5)
[2018-03-19] MEDS: PREDNISONE 20 MG TABLET PO SCH (09:20)
[2018-03-19] MEDS: ASPIRIN 81 MG TABLET, CHEWABLE PO SCH (09:21)
[2018-03-19] MEDS: APIXABAN 5 MG TABLET PO SCH ×2 (09:21→21:14)
[2018-03-19] MEDS: METOPROLOL SUCCINATE 25 MG TAB.SR.24H PO SCH ×2 (09:21→21:14)
[2018-03-19] MEDS: FUROSEMIDE INJ/PF 40 MG/4 ML SDV IV SCH ×2 (09:25→21:13)
[2018-03-19] MEDS: INSULIN LISPRO 100 UNIT/ML 3 ML VIAL SUBCUT SCH ×4 (09:26→21:18)
[2018-03-19] MEDS: INSULIN GLARGINE,HUM.REC.ANLOG 1,000 UNIT/10 ML UNIT SUBCUT SCH (09:26)
[2018-03-19 09:56] LABS: ABSOLUTE LYMPHOCYTES# (MANUAL) 0.6 10^3/uL (0.5-4.7); ABSOLUTE MONOCYTES # (MANUAL) 0.4 10^3/uL (0.1-1.4); ABSOLUTE NEUTROPHILS# (MANUAL) 9.3 10^3/uL (1.7-8.2); BASOPHILS % (MANUAL) 0 % (0-2); EOSINOPHILS % (MANUAL) 0 % (0-6); LYMPHOCYTES % (MANUAL) 6 % (13-45); MONOCYTES % (MANUAL) 4 % (3-13); SEGMENTED NEUTROPHILS % (MAN) 90 % (42-78); TOTAL CELLS COUNTED 100
[2018-03-19 09:57] LABS: ROULEAUX SLIGHT
[2018-03-19 09:58] LABS: ANISOCYTOSIS 1+; HYPOCHROMASIA 1+
[2018-03-19 09:59] LABS: PLATELET COMMENT ADEQUATE; STOMATOCYTES SLIGHT
--- NOTE | 2018-03-19 12:56 | PDOC PROGRESS REPORT ---
Subjective Progress Note for:: 03/19/18 Subjective:: on bipap Reason For Visit: CHF Physical Exam Vital Signs: Temp Pulse Resp BP Pulse Ox 96.6 F L 56 L 17 124/66 94 03/19/18 12:00 03/19/18 12:00 03/19/18 12:02 03/19/18 12:00 03/19/18 12:02 Intake & Output 03/18/18 03/19/18 03/20/18 06:59 06:59 06:59 Intake Total 1113 1794 646 Output Total 4345 4325 350 Balance -4772 -3425 296 Weight 123.1 kg General appearance: PRESENT: no acute distress, disheveled, morbidly obese Head exam: PRESENT: atraumatic, normocephalic Eye exam: PRESENT: conjunctiva pale, EOMI Mouth exam: PRESENT: dry mucosa, neck supple, tongue midline Neck exam: ABSENT: carotid bruit, JVD, lymphadenopathy, thyromegaly, tracheal deviation, tracheostomy Respiratory exam: PRESENT: decreased breath sounds, prolonged expiratory phas, rhonchi, unlabored. ABSENT: retraction, stridor, tachypnea Cardiovascular exam: PRESENT: RRR, +S1, +S2. ABSENT: tachycardia Pulses: PRESENT: normal radial pulses GI/Abdominal exam: PRESENT: soft. ABSENT: tenderness Gentrourinary exam: PRESENT: indwelling catheter Extremities exam: PRESENT: pedal edema. ABSENT: calf tenderness, clubbing, joint swelling Musculoskeletal exam: ABSENT: deformity, dislocation Neurological exam: PRESENT: alert, awake Psychiatric exam: PRESENT: appropriate affect Skin exam: PRESENT: dry, warm Results Laboratory Results: 03/19/18 08:03 03/19/18 08:03 03/19/18 03/19/18 03/19/18 08:03 08:03 08:03 WBC 10.3 RBC 4.48 Hgb 11.3 L Hct 36.0 L MCV 80 MCH 25.2 L MCHC 31.3 L RDW 17.5 H Plt Count 157 Seg Neutrophils % Not Reportable Lymphocytes % Not Reportable Monocytes % Not Reportable Eosinophils % Not Reportable Basophils % Not Reportable Absolute Neutrophils Not Reportable Absolute Lymphocytes Not Reportable Absolute Monocytes Not Reportable Absolute Eosinophils Not Reportable Absolute Basophils Not Reportable VBG pH 7.30 VBG pCO2 74.7 H* VBG HCO3 35.8 H VBG Base Excess 6.9 Sodium 137.0 Potassium 4.4 Chloride 97 L Carbon Dioxide 35 H Anion Gap 5 BUN 40 H Creatinine 0.67 Est GFR ( Amer) > 60 Est GFR (Non-Af Amer) > 60 Glucose 229 H Calcium 8.3 L Phosphorus 4.9 H Magnesium 2.4 H 03/02/18 03/02/18 03/02/18 18:56 21:12 22:37 Creatine Kinase 30 L CK-MB (CK-2) Troponin I 0.029 0.034 NT-Pro-B Natriuret Pep 3470 H 03/02/18 03/03/18 03/03/18 22:37 04:24 04:24 Creatine Kinase 25 L CK-MB (CK-2) 0.92 0.82 Troponin I 0.036 0.034 NT-Pro-B Natriuret Pep 03/03/18 03/03/18 03/04/18 10:40 10:40 05:22 Creatine Kinase 24 L CK-MB (CK-2) 0.62 Troponin I 0.018 NT-Pro-B Natriuret Pep 3140 H 03/05/18 03/06/18 03/08/18 05:08 04:58 16:14 Creatine Kinase CK-MB (CK-2) Troponin I NT-Pro-B Natriuret Pep 2970 H 3340 H 7920 H 03/09/18 03/09/18 03/09/18 09:30 09:30 15:27 Creatine Kinase 49 L 39 L CK-MB (CK-2) 0.50 Troponin I 0.080 NT-Pro-B Natriuret Pep 03/09/18 03/09/18 03/09/18 15:27 22:06 22:06 Creatine Kinase 30 L CK-MB (CK-2) 0.30 < 0.22 Troponin I 0.067 0.072 NT-Pro-B Natriuret Pep Impressions: KUB X-Ray 03/09/18 14:15 IMPRESSION: Nasogastric tube tip in the stomach. Chest X-Ray 03/18/18 06:00 IMPRESSION: No significant change. Assessment & Plan - Diagnosis (1) PATEL (obstructive sleep apnea) Is this a current diagnosis for this admission?: Yes Plan: increased IPAP and TV (2) Morbid obesity with alveolar hypoventilation Is this a current diagnosis for this admission?: Yes Plan: Witnessed central apneas The above patient has failed BiPAP. This patient would benefit from noninvasive mechanical ventilation via the trilogy AVAPS/AE and faster responding AVAPS rate s. The trilogy is able to provide a target tidal volume and also adjusting the EPAP pressures to maintain a patent airway as well as an oral backup rate this machine will help improve PaCO2 levels. The severity of the patient's condition will lead to future hospitalizations and readmissions as well as life- threatening situations without the use of this device day and night. Trilogy home vent needed for hypercapnic respiratory failure. [facility] or [facility] to follow for trilogy set up. (3) Tobacco abuse Is this a current diagnosis for this admission?: Yes Plan: transdermal nicotene (4) COPD (chronic obstructive pulmonary disease) with emphysema Qualifiers: Emphysema type: centrilobular Qualified Code(s): J43.2 - Centrilobular emphysema Is this a current diagnosis for this admission?: Yes Plan: add daliresp - Time Total Critical Time (Minutes): 50
--- NOTE | 2018-03-19 14:37 | PDOC PROGRESS REPORT ---
Subjective Progress Note for:: 03/19/18 Subjective:: Patient was seen and examined today. He was extubated 03/16/2018. He is awake and oriented. VBG today shows worsening hypercapnia. He had issues with BiPAP last night because the mask was not fitting and was bothering him. Reason For Visit: CHF Physical Exam Vital Signs: Temp Pulse Resp BP Pulse Ox 97.3 F 61 17 116/54 L 93 03/19/18 13:58 03/19/18 14:00 03/19/18 13:58 03/19/18 13:58 03/19/18 13:58 Intake & Output 03/18/18 03/19/18 03/20/18 06:59 06:59 06:59 Intake Total 1113 1794 646 Output Total 4345 4325 350 Balance -6588 -1012 296 Weight 271 lb 6.224 oz General appearance: PRESENT: cooperative, obese Head exam: PRESENT: atraumatic, normocephalic Eye exam: ABSENT: conjunctival injection Mouth exam: PRESENT: moist, neck supple Neck exam: ABSENT: meningismus, tenderness Respiratory exam: PRESENT: rhonchi. ABSENT: accessory muscle use Cardiovascular exam: PRESENT: RRR Pulses: PRESENT: normal radial pulses GI/Abdominal exam: PRESENT: normal bowel sounds, soft. ABSENT: tenderness Rectal exam: PRESENT: deferred Neurological exam: PRESENT: alert, awake, oriented to person, oriented to place, oriented to time, oriented to situation Psychiatric exam: ABSENT: agitated, anxious Results Laboratory Results: 03/19/18 08:03 03/19/18 08:03 03/19/18 03/19/18 03/19/18 08:03 08:03 08:03 WBC 10.3 RBC 4.48 Hgb 11.3 L Hct 36.0 L MCV 80 MCH 25.2 L MCHC 31.3 L RDW 17.5 H Plt Count 157 Seg Neutrophils % Not Reportable Lymphocytes % Not Reportable Monocytes % Not Reportable Eosinophils % Not Reportable Basophils % Not Reportable Absolute Neutrophils Not Reportable Absolute Lymphocytes Not Reportable Absolute Monocytes Not Reportable Absolute Eosinophils Not Reportable Absolute Basophils Not Reportable VBG pH 7.30 VBG pCO2 74.7 H* VBG HCO3 35.8 H VBG Base Excess 6.9 Sodium 137.0 Potassium 4.4 Chloride 97 L Carbon Dioxide 35 H Anion Gap 5 BUN 40 H Creatinine 0.67 Est GFR ( Amer) > 60 Est GFR (Non-Af Amer) > 60 Glucose 229 H Calcium 8.3 L Phosphorus 4.9 H Magnesium 2.4 H 03/02/18 03/02/18 03/02/18 18:56 21:12 22:37 Creatine Kinase 30 L CK-MB (CK-2) Troponin I 0.029 0.034 NT-Pro-B Natriuret Pep 3470 H 03/02/18 03/03/18 03/03/18 22:37 04:24 04:24 Creatine Kinase 25 L CK-MB (CK-2) 0.92 0.82 Troponin I 0.036 0.034 NT-Pro-B Natriuret Pep 03/03/18 03/03/18 03/04/18 10:40 10:40 05:22 Creatine Kinase 24 L CK-MB (CK-2) 0.62 Troponin I 0.018 NT-Pro-B Natriuret Pep 3140 H 03/05/18 03/06/18 03/08/18 05:08 04:58 16:14 Creatine Kinase CK-MB (CK-2) Troponin I NT-Pro-B Natriuret Pep 2970 H 3340 H 7920 H 03/09/18 03/09/18 03/09/18 09:30 09:30 15:27 Creatine Kinase 49 L 39 L CK-MB (CK-2) 0.50 Troponin I 0.080 NT-Pro-B Natriuret Pep 03/09/18 03/09/18 03/09/18 15:27 22:06 22:06 Creatine Kinase 30 L CK-MB (CK-2) 0.30 < 0.22 Troponin I 0.067 0.072 NT-Pro-B Natriuret Pep Impressions: KUB X-Ray 03/09/18 14:15 IMPRESSION: Nasogastric tube tip in the stomach. Chest X-Ray 03/18/18 06:00 IMPRESSION: No significant change. Assessment & Plan - Diagnosis (1) Acute exacerbation of CHF (congestive heart failure) Qualifiers: Heart failure type: unspecified Qualified Code(s): I50.9 - Heart failure, unspecified Is this a current diagnosis for this admission?: Yes Plan: Continue IV Lasix to 40 mg BID. Monitor renal function. May switch to p.o. Lasix tomorrow. (2) Acute respiratory failure with hypoxia and hypercapnia Is this a current diagnosis for this admission?: Yes Plan: Patient was extubated 03/16/2018. Now stable on nasal cannula oxygen. continue BiPAP at night (3) COPD (chronic obstructive pulmonary disease) with emphysema Qualifiers: Emphysema type: centrilobular Qualified Code(s): J43.2 - Centrilobular emphysema Is this a current diagnosis for this admission?: Yes Plan: Continue steroids and bronchodilators. Switch to oral prednisone today. He said he quit smoking almost 2 years ago. (4) Morbid obesity with alveolar hypoventilation Is this a current diagnosis for this admission?: Yes Plan: Dr Gamino recommends trilogy device for home (5) Peripheral edema Is this a current diagnosis for this admission?: Yes Plan: Improved. continue IV Lasix 40 mg twice daily (6) Cellulitis Is this a current diagnosis for this admission?: Yes Plan: skin cx + pseudomonas, E coli, enterococcus. Switched Zosyn to meropenem according to sensitivity (since 03/13/18). Monitor clinically. Monitor white count. (7) Atrial fibrillation Is this a current diagnosis for this admission?: Yes Plan: He is off Cardizem drip. Continue Eliquis. Appreciate Dr. Suárez input.
[2018-03-19] MEDS: NORMAL SALINE 1000 ML 1,000 ML IV PRN (15:29)
--- NOTE | 2018-03-19 19:35 | Progress Note ---
Provider Note Provider Note: Cardiology PROGRESS NOTE by Dr. Corina Foster on 03/19/2018. SUBJECTIVE: The patient denies any chest pain discomfort. He has some runs of supraventricular bigeminy, asymptomatic, with stable blood pressure. He denies any shortness of breath. But continues to cough without being able to bring up any sputum. He has no PND orthopnea. There is no leg edema. There is no recurrence of atrial fibrillation. There is no ventricular arrhythmia seen on the monitor. There is no bleeding on Eliquis. There is no TIA CVA symptoms. PHYSICAL EXAMINATION: The patient is moderate to moderate morbidly obese. He is in no acute distress. He is well-groomed. Selected Entries 03/19/18 13:58 Temperature 97.3 F Temperature Axillary Source Pulse Rate 61 Respiratory 17 Rate Blood Pressure 116/54 L Blood Pressure 74 Mean BP Location Right Arm BP Position Supine O2 Sat by Pulse 93 Oximetry Oxygen Flow 2.50 Rate Oxygen Delivery Nasal Cannula Method HEAD: Head is atraumatic and normocephalic. EYES: Pupils are equal round regular reactive to light accommodation. Extraocular movements are normal, there is no conjunctival pallor, and no scleral icterus. EARS: Tympanic membranes are intact external auditory canals are clear. NOSE: There is no inflammation of the nasal mucous membrane there is no deviated nasal septum. MOUTH: Mucous membranes of mouth and tongue are moist, there is no ulcers in the mouth or tongue, and no bleeding from the gums. THROAT: There is no redness of the oropharynx, no exudate seen. SKIN: There is no petechia or ecchymosis. There is no rashes or lesions. NECK: Supple. There is no JVD. Carotids are equal there is no bruit. There is no lymphadenopathy. There is no goiter. Trachea central LUNGS: There is diminished air entry and prolonged expiration. Clear to auscultation bilaterally, no wheezes, rales, but there is diffuse rhonchi. On percussion there is hyperresonance although there is no chest wall tenderness HEART: S1 and S2 are heard. S1 is of normal intensity, there is no S3 or S4 gallops. There is a systolic murmur the left sternal border and the apex. There is no rub. ABDOMEN: Normoactive bowel sounds, soft, nontender, no masses, no rebound, no guarding. There is no hepatosplenomegaly. EXTREMITIES: Femorals are slightly diminished. There is no femoral bruits. Leg pulses are diminished. There is no pedal edema. There is no DVT or cellulitis. There is no cyanosis or clubbing. There is no calf tenderness. NEUROLOGICAL the patient is awake alert oriented 3 with no focal deficits. PSYCHIATRIC: The patient judgment and insight are intact his affect is normal. 03/19/18 03/19/18 03/19/18 08:03 08:03 08:03 WBC 10.3 Hgb 11.3 L Hct 36.0 L MCV 80 MCH 25.2 L MCHC 31.3 L RDW 17.5 H Plt Count 157 Total Counted 100 PT 14.7 INR 1.09 APTT 25.8 VBG pH 7.30 VBG pCO2 74.7 H* VBG HCO3 35.8 H VBG Base Excess 6.9 Sodium Potassium Chloride Carbon Dioxide Anion Gap BUN Creatinine Est GFR (Non-Af Amer) Glucose Calcium Phosphorus Magnesium 03/19/18 08:03 WBC Hgb Hct MCV MCH MCHC RDW Plt Count Total Counted PT INR APTT VBG pH VBG pCO2 VBG HCO3 VBG Base Excess Sodium 137.0 Potassium 4.4 Chloride 97 L Carbon Dioxide 35 H Anion Gap 5 BUN 40 H Creatinine 0.67 Est GFR (Non-Af Amer) > 60 Glucose 229 H Calcium 8.3 L Phosphorus 4.9 H Magnesium 2.4 H IMPRESSION/RECOMMENDATION: 1. Paroxysmal atrial fibrillation. At present patient in sinus rhythm on a Cardizem drip. Note the patient's Abundio 2 vascular score is 5/10 patient at high risk for CVA. [1 point each for age, hypertension, diabetes mellitus, coronary artery disease, and cardiomyopathy] would recommend starting the patient on Eliquis 5 mg p.o. twice daily. 2. Acute on chronic respiratory failure with hypoxemia and hypercapnia: Patient extubated, and improving slowly. Continue respiratory treatments and antibiotics. 3. Acute exacerbation of COPD: Seems to be much improved. Continue current treatment. 4. Hypertension: Blood pressure well controlled. 5. Coronary artery disease: At present no evidence of anginal symptoms. 6. 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 7. History of diabetes mellitus type 2 insulin-dependent. Continue insulin and monitor blood sugar and adjust insulin dosage as per blood sugar. 8. Tobacco abuse: Tobacco cessation counseling given. 3 minutes spent on this. 9. Moderate pulmonary hypertension: Discussed with the patient the importance of wearing BiPAP and tobacco cessation. 10. History of sleep apnea. Intolerant to CPAP. 11. RIGHT BUNDLE BRANCH PATTERN. MEDICATIONS reviewed. Medications adjusted. Medical decision making is of high complexity. 40 minutes spent on this patient with more than 50% of time spent in direct patient care. The patient is a full code. His is a surrogate healthcare decision maker. Discussed the patient's condition with the patient and the patient's . Discussed with the attending physician on the case and formulated and management plan. Cardiac status is stable. We will sign off..
[2018-03-19] MEDS: SIMVASTATIN 10 MG TABLET PO SCH (21:13)
[2018-03-20] MEDS: MEROPENEM 1 GM in NORMAL SALINE 50 ML IV SCH ×2 (01:10→09:29)
[2018-03-20] MEDS: GABAPENTIN 300 MG CAPSULE PO SCH ×5 (01:10→23:03)
[2018-03-20] MEDS: LEVALBUTEROL HCL NEB 1.25 MG/3 ML AMPUL NEB SCH ×4 (01:47→19:35)
[2018-03-20 06:30] LABS: HEMATOCRIT 35.4 % (37.9-51.0); HEMOGLOBIN 11.1 g/dL (13.5-17.0); MEAN CORPUSCULAR HEMOGLOBIN 25.5 pg (27.0-33.4); MEAN CORPUSCULAR HGB CONC 31.4 g/dL (32.0-36.0); MEAN CORPUSCULAR VOLUME 81 fl (80-97); PLATELET COUNT 149 10^3/uL (150-450); RED BLOOD COUNT 4.35 10^6/uL (4.35-5.55); RED CELL DISTRIBUTION WIDTH 17.8 % (11.5-14.0); WHITE BLOOD COUNT 10.4 10^3/uL (4.0-10.5)
[2018-03-20 06:32] LABS: ARTERIAL BLOOD BASE EXCESS 7.5 mmol/L; ARTERIAL BLOOD H2CO3 1.69 mmol/L (1.05-1.35); ARTERIAL BLOOD HCO3 33.8 mmol/L (20-24); ARTERIAL BLOOD O2 SATURATION 98.4 % (94-98); ARTERIAL BLOOD PCO2 56.1 mmHg (35-45); ARTERIAL BLOOD PO2 123.8 mmHg (80-100); ARTERIAL BLOOD TOTAL CO2 35.5 mmol/L (23-27)
[2018-03-20 06:34] LABS: ARTERIAL BLOOD FIO2 40%
[2018-03-20 06:44] LABS: BLOOD UREA NITROGEN 42 mg/dL (7-20); CALCIUM 8.2 mg/dL (8.4-10.2); CHLORIDE 99 mmol/L (98-107); GLUCOSE 88 mg/dL (75-110); POTASSIUM 4.2 mmol/L (3.6-5.0)
[2018-03-20 06:49] LABS: ANION GAP 5 (5-19); CARBON DIOXIDE 36 mmol/L (22-30); SODIUM 139.7 mmol/L (137-145)
[2018-03-20] MEDS: INSULIN LISPRO 100 UNIT/ML 3 ML VIAL SUBCUT SCH ×4 (08:14→21:21)
--- NOTE | 2018-03-20 08:19 | RADIOLOGY REPORT (SQ) ---
EXAM DESCRIPTION: CHEST SINGLE VIEW COMPLETED DATE/TIME: 03/20/2018 8:04 am REASON FOR STUDY: CHF COMPARISON: 03/18/2018 EXAM PARAMETERS: NUMBER OF VIEWS: One view. TECHNIQUE: Single frontal radiographic view of the chest acquired. RADIATION DOSE: NA LIMITATIONS: None. FINDINGS: LUNGS AND PLEURA: No opacities, masses or pneumothorax. No pleural effusion. MEDIASTINUM AND HILAR STRUCTURES: No masses. Contour normal. HEART AND VASCULAR STRUCTURES: Heart normal in size. Normal vasculature. BONES: No acute findings. HARDWARE: Venous access catheters are in the same location as previous. OTHER: No other significant finding. IMPRESSION: NO ACUTE RADIOGRAPHIC FINDING IN THE CHEST. TECHNICAL DOCUMENTATION: JOB ID: [id number] [employer]- All Rights Reserved Reading location - IP/workstation name: [email or web address]
[2018-03-20] MEDS: INSULIN GLARGINE,HUM.REC.ANLOG 1,000 UNIT/10 ML UNIT SUBCUT SCH (09:28)
[2018-03-20] MEDS: FUROSEMIDE INJ/PF 40 MG/4 ML SDV IV SCH (09:29)
[2018-03-20] MEDS: ASPIRIN 81 MG TABLET, CHEWABLE PO SCH (09:29)
[2018-03-20] MEDS: APIXABAN 5 MG TABLET PO SCH ×2 (09:29→21:21)
[2018-03-20] MEDS: PREDNISONE 20 MG TABLET PO SCH (09:29)
[2018-03-20] MEDS: METOPROLOL SUCCINATE 25 MG TAB.SR.24H PO SCH (09:30)
--- NOTE | 2018-03-20 11:12 | PDOC PROGRESS REPORT ---
Subjective Progress Note for:: 03/20/18 Subjective:: Patient was seen and examined today. He was extubated 03/16/2018. He is awake and oriented. Patient was started on AVAPS and seems to be doing better. Reason For Visit: CHF Physical Exam Vital Signs: Temp Pulse Resp BP Pulse Ox 97.2 F 47 L 20 105/57 L 97 03/20/18 03:12 03/20/18 07:41 03/20/18 07:41 03/20/18 07:21 03/20/18 07:41 Intake & Output 03/19/18 03/20/18 03/21/18 06:59 06:59 06:59 Intake Total 1794 2246 Output Total 4321 2810 Balance -2741 -3871 Weight 271 lb 6.224 oz 268 lb 11.896 oz General appearance: PRESENT: cooperative, obese Head exam: PRESENT: atraumatic, normocephalic Eye exam: PRESENT: EOMI, PERRLA. ABSENT: conjunctival injection Mouth exam: PRESENT: moist, neck supple Neck exam: ABSENT: meningismus, tenderness Respiratory exam: PRESENT: rhonchi. ABSENT: accessory muscle use Cardiovascular exam: PRESENT: RRR Pulses: PRESENT: normal radial pulses GI/Abdominal exam: PRESENT: normal bowel sounds, soft Rectal exam: PRESENT: deferred Neurological exam: PRESENT: alert, awake, oriented to person, oriented to place, oriented to time, oriented to situation Psychiatric exam: PRESENT: appropriate affect Results Laboratory Results: 03/20/18 06:05 03/20/18 06:05 03/20/18 03/20/18 03/20/18 06:05 06:05 06:14 WBC 10.4 RBC 4.35 Hgb 11.1 L Hct 35.4 L MCV 81 MCH 25.5 L MCHC 31.4 L RDW 17.8 H Plt Count 149 L Carbonic Acid 1.69 H HCO3/H2CO3 Ratio 20:1 ABG pH 7.40 ABG pCO2 56.1 H ABG pO2 123.8 H ABG HCO3 33.8 H ABG O2 Saturation 98.4 H ABG Base Excess 7.5 FiO2 40% Sodium 139.7 Potassium 4.2 Chloride 99 Carbon Dioxide 36 H Anion Gap 5 BUN 42 H Creatinine 0.64 Est GFR ( Amer) > 60 Est GFR (Non-Af Amer) > 60 Glucose 88 Calcium 8.2 L 03/02/18 03/02/18 03/02/18 18:56 21:12 22:37 Creatine Kinase 30 L CK-MB (CK-2) Troponin I 0.029 0.034 NT-Pro-B Natriuret Pep 3470 H 03/02/18 03/03/18 03/03/18 22:37 04:24 04:24 Creatine Kinase 25 L CK-MB (CK-2) 0.92 0.82 Troponin I 0.036 0.034 NT-Pro-B Natriuret Pep 03/03/18 03/03/18 03/04/18 10:40 10:40 05:22 Creatine Kinase 24 L CK-MB (CK-2) 0.62 Troponin I 0.018 NT-Pro-B Natriuret Pep 3140 H 03/05/18 03/06/18 03/08/18 05:08 04:58 16:14 Creatine Kinase CK-MB (CK-2) Troponin I NT-Pro-B Natriuret Pep 2970 H 3340 H 7920 H 03/09/18 03/09/18 03/09/18 09:30 09:30 15:27 Creatine Kinase 49 L 39 L CK-MB (CK-2) 0.50 Troponin I 0.080 NT-Pro-B Natriuret Pep 03/09/18 03/09/18 03/09/18 15:27 22:06 22:06 Creatine Kinase 30 L CK-MB (CK-2) 0.30 < 0.22 Troponin I 0.067 0.072 NT-Pro-B Natriuret Pep Impressions: KUB X-Ray 03/09/18 14:15 IMPRESSION: Nasogastric tube tip in the stomach. Chest X-Ray 03/20/18 06:00 IMPRESSION: NO ACUTE RADIOGRAPHIC FINDING IN THE CHEST. Assessment & Plan - Diagnosis (1) Acute exacerbation of CHF (congestive heart failure) Qualifiers: Heart failure type: unspecified Qualified Code(s): I50.9 - Heart failure, unspecified Is this a current diagnosis for this admission?: Yes Plan: Switch IV Lasix to p.o. 40 mg BID. Monitor renal function. (2) Acute respiratory failure with hypoxia and hypercapnia Is this a current diagnosis for this admission?: Yes Plan: Patient was extubated 03/16/2018. Now stable on nasal cannula oxygen. continue AVAPS machine (3) COPD (chronic obstructive pulmonary disease) with emphysema Qualifiers: Emphysema type: centrilobular Qualified Code(s): J43.2 - Centrilobular emphysema Is this a current diagnosis for this admission?: Yes Plan: Continue steroids and bronchodilators. Switched to oral prednisone on 03/18/2018. Patient quit smoking almost 2 years ago. (4) Morbid obesity with alveolar hypoventilation Is this a current diagnosis for this admission?: Yes Plan: Doing better with AVAPS machine (5) Peripheral edema Is this a current diagnosis for this admission?: Yes Plan: Improved. Switch from IV Lasix to p.o. Lasix 40 mg twice daily (6) Cellulitis Is this a current diagnosis for this admission?: Yes Plan: skin cx + pseudomonas, E coli, enterococcus. Switched Zosyn to meropenem according to sensitivity (since 03/13/18). Monitor clinically. Now white count is normal (7) Atrial fibrillation Is this a current diagnosis for this admission?: Yes Plan: He is off Cardizem drip. Continue Eliquis. Appreciate Dr. Suárez input. - Plan Summary Plan Summary: Ambulate with physical therapy. Possible discharge to rehab in 1-2 days.
[2018-03-20] MEDS: NORMAL SALINE 1000 ML 1,000 ML IV PRN (12:58)
[2018-03-20] MEDS: FUROSEMIDE 40 MG TABLET PO SCH (17:21)
[2018-03-20] MEDS: ACETYLCYSTEINE 20% SOLN 800 MG/4 ML VIAL.NEB NEB SCH (19:35)
[2018-03-20] MEDS: SIMVASTATIN 10 MG TABLET PO SCH (21:21)
[2018-03-21] MEDS: LEVALBUTEROL HCL NEB 1.25 MG/3 ML AMPUL NEB SCH ×4 (02:39→19:55)
[2018-03-21] MEDS: GABAPENTIN 300 MG CAPSULE PO SCH ×3 (06:28→17:11)
[2018-03-21] MEDS: INSULIN LISPRO 100 UNIT/ML 3 ML VIAL SUBCUT SCH ×4 (07:48→21:22)
[2018-03-21] MEDS: ACETYLCYSTEINE 20% SOLN 800 MG/4 ML VIAL.NEB NEB SCH ×2 (07:57→19:55)
[2018-03-21] MEDS: ASPIRIN 81 MG TABLET, CHEWABLE PO SCH (09:50)
[2018-03-21] MEDS: PREDNISONE 20 MG TABLET PO SCH (09:50)
[2018-03-21] MEDS: INSULIN GLARGINE,HUM.REC.ANLOG 1,000 UNIT/10 ML UNIT SUBCUT SCH (09:50)
[2018-03-21] MEDS: FUROSEMIDE 40 MG TABLET PO SCH ×2 (09:51→17:11)
[2018-03-21] MEDS: APIXABAN 5 MG TABLET PO SCH ×2 (09:51→21:08)
[2018-03-21] MEDS: NORMAL SALINE 1000 ML 1,000 ML IV PRN (09:52)
--- NOTE | 2018-03-21 12:42 | PDOC PROGRESS REPORT ---
Subjective Progress Note for:: 03/21/18 Subjective:: Patient was seen and examined today. He was extubated 03/16/2018. He is awake and oriented. Patient was started on AVAPS and seems to be doing better. Patient is improving and he got out of bed and was able to take few steps yesterday. Reason For Visit: CHF Physical Exam Vital Signs: Temp Pulse Resp BP Pulse Ox 97.3 F 68 20 138/61 H 100 03/21/18 12:00 03/21/18 12:00 03/21/18 12:00 03/21/18 12:00 03/21/18 12:00 Intake & Output 03/20/18 03/21/18 03/22/18 06:59 06:59 06:59 Intake Total 2246 2634 1000 Output Total 3490 4370 Balance -1244 -1736 1000 Weight 268 lb 11.896 oz 266 lb 5.094 oz General appearance: PRESENT: cooperative, obese. ABSENT: no acute distress Head exam: PRESENT: atraumatic, normocephalic Eye exam: PRESENT: EOMI, PERRLA Mouth exam: PRESENT: moist, neck supple Neck exam: ABSENT: meningismus, tenderness Respiratory exam: PRESENT: decreased breath sounds, rhonchi, other - On AVAPS. ABSENT: accessory muscle use Cardiovascular exam: PRESENT: RRR Pulses: PRESENT: normal radial pulses GI/Abdominal exam: PRESENT: normal bowel sounds, soft Rectal exam: PRESENT: deferred Neurological exam: PRESENT: alert, awake, oriented to person, oriented to place, oriented to time, oriented to situation Results Laboratory Results: 03/20/18 06:05 03/20/18 06:05 03/02/18 03/02/18 03/02/18 18:56 21:12 22:37 Creatine Kinase 30 L CK-MB (CK-2) Troponin I 0.029 0.034 NT-Pro-B Natriuret Pep 3470 H 03/02/18 03/03/18 03/03/18 22:37 04:24 04:24 Creatine Kinase 25 L CK-MB (CK-2) 0.92 0.82 Troponin I 0.036 0.034 NT-Pro-B Natriuret Pep 03/03/18 03/03/18 03/04/18 10:40 10:40 05:22 Creatine Kinase 24 L CK-MB (CK-2) 0.62 Troponin I 0.018 NT-Pro-B Natriuret Pep 3140 H 03/05/18 03/06/18 03/08/18 05:08 04:58 16:14 Creatine Kinase CK-MB (CK-2) Troponin I NT-Pro-B Natriuret Pep 2970 H 3340 H 7920 H 03/09/18 03/09/18 03/09/18 09:30 09:30 15:27 Creatine Kinase 49 L 39 L CK-MB (CK-2) 0.50 Troponin I 0.080 NT-Pro-B Natriuret Pep 03/09/18 03/09/18 03/09/18 15:27 22:06 22:06 Creatine Kinase 30 L CK-MB (CK-2) 0.30 < 0.22 Troponin I 0.067 0.072 NT-Pro-B Natriuret Pep Impressions: KUB X-Ray 03/09/18 14:15 IMPRESSION: Nasogastric tube tip in the stomach. Chest X-Ray 03/20/18 06:00 IMPRESSION: NO ACUTE RADIOGRAPHIC FINDING IN THE CHEST. Assessment & Plan - Diagnosis (1) Acute exacerbation of CHF (congestive heart failure) Qualifiers: Heart failure type: unspecified Qualified Code(s): I50.9 - Heart failure, unspecified Is this a current diagnosis for this admission?: Yes Plan: Switched IV Lasix to p.o. 40 mg BID. Monitor renal function. (2) Acute respiratory failure with hypoxia and hypercapnia Is this a current diagnosis for this admission?: Yes Plan: Patient was extubated 03/16/2018. Now stable on nasal cannula oxygen. continue AVAPS machine (3) COPD (chronic obstructive pulmonary disease) with emphysema Qualifiers: Emphysema type: centrilobular Qualified Code(s): J43.2 - Centrilobular emphysema Is this a current diagnosis for this admission?: Yes Plan: Continue steroids and bronchodilators. Switched to oral prednisone on 03/18/2018. Patient quit smoking almost 2 years ago. (4) Morbid obesity with alveolar hypoventilation Is this a current diagnosis for this admission?: Yes Plan: Doing better with AVAPS machine (5) Peripheral edema Is this a current diagnosis for this admission?: Yes Plan: Improved. Switched from IV Lasix to p.o. Lasix 40 mg twice daily (6) Cellulitis Is this a current diagnosis for this admission?: Yes Plan: skin cx + pseudomonas, E coli, enterococcus. Switched Zosyn to meropenem according to sensitivity (since 03/13/18). Now is done with antibiotics. Monitor clinically. Now white count is normal (7) Atrial fibrillation Is this a current diagnosis for this admission?: Yes Plan: He is off Cardizem drip. Patient in sinus rhythm. Continue Eliquis. Appreciate Dr. Suárez input. - Plan Summary Plan Summary: Discharge to rehab when bed available, likely tomorrow.
[2018-03-21] MEDS: SIMVASTATIN 10 MG TABLET PO SCH (21:08)
[2018-03-22] MEDS: GABAPENTIN 300 MG CAPSULE PO SCH ×5 (00:54→23:44)
[2018-03-22] MEDS: LEVALBUTEROL HCL NEB 1.25 MG/3 ML AMPUL NEB SCH ×4 (02:24→19:16)
[2018-03-22] MEDS: NORMAL SALINE 1000 ML 1,000 ML IV PRN (05:51)
[2018-03-22] MEDS: ACETYLCYSTEINE 20% SOLN 800 MG/4 ML VIAL.NEB NEB SCH ×2 (07:39→19:16)
[2018-03-22] MEDS: INSULIN LISPRO 100 UNIT/ML 3 ML VIAL SUBCUT SCH ×4 (07:55→22:01)
[2018-03-22] MEDS ORDERED: INSULIN GLARGINE,HUM.REC.ANLOG 1,000 UNIT/10 ML UNIT SUBCUT SCH (08:00)
[2018-03-22] MEDS ORDERED: METOPROLOL TARTRATE PF/INJ 5 MG/5 ML SDV IV ONE ×2 (10:00→13:00)
[2018-03-22] MEDS: APIXABAN 5 MG TABLET PO SCH ×2 (10:32→22:01)
[2018-03-22] MEDS: FUROSEMIDE 40 MG TABLET PO SCH ×2 (10:32→17:19)
[2018-03-22] MEDS: ASPIRIN 81 MG TABLET, CHEWABLE PO SCH (10:32)
[2018-03-22] MEDS: PREDNISONE 20 MG TABLET PO SCH (10:32)
[2018-03-22] MEDS: DILTIAZEM HCL/D5W 125 MG/125 ML RTUINJ IV PRN ×2 (15:04→23:52)
--- NOTE | 2018-03-22 17:03 | EKG REPORT ---
SEVERITY:- ABNORMAL ECG - CONSIDER A FIB/ A FLUTTER VS SINUS TACHYCARDIA, REC REPEAT EKG MULTIPLE VENTRICULAR PREMATURE COMPLEXES RIGHT BUNDLE BRANCH BLOCK INFERIOR INFARCT, POSSIBLY ACUTE ANTERIOR INFARCT, AGE INDETERMINATE : Confirmed by: Harjinder Pierce 22-Mar-2018 17:03:09
--- NOTE | 2018-03-22 17:17 | PDOC PROGRESS REPORT ---
Subjective Progress Note for:: 03/22/18 Subjective:: No acute events overnight. Awake and alert oriented x3. No apparent distress patient was going to be transferred to rehab but unfortunately was noted to be in A. fib/flutter flutter and was started on Cardizem drip. Denies any chest pain, shortness of breath, nausea, vomiting, diarrhea, constipation or any urinary symptoms. Reason For Visit: CHF Physical Exam Vital Signs: Temp Pulse Resp BP Pulse Ox 98.0 F 138 H 18 106/78 90 L 03/22/18 15:49 03/22/18 16:10 03/22/18 15:49 03/22/18 16:10 03/22/18 15:49 Intake & Output 03/21/18 03/22/18 03/23/18 06:59 06:59 06:59 Intake Total 2634 3970 11 Output Total 4370 6500 650 Balance -5854 -3030 -639 Weight 120.8 kg 119.3 kg General appearance: PRESENT: obese Head exam: PRESENT: atraumatic, normocephalic Respiratory exam: PRESENT: clear to auscultation ernesto. ABSENT: rales, rhonchi, wheezes Cardiovascular exam: PRESENT: irregular rhythm, tachycardia. ABSENT: diastolic murmur, rubs, systolic murmur Results Laboratory Results: 03/20/18 06:05 03/20/18 06:05 03/02/18 03/02/18 03/02/18 18:56 21:12 22:37 Creatine Kinase 30 L CK-MB (CK-2) Troponin I 0.029 0.034 NT-Pro-B Natriuret Pep 3470 H 03/02/18 03/03/18 03/03/18 22:37 04:24 04:24 Creatine Kinase 25 L CK-MB (CK-2) 0.92 0.82 Troponin I 0.036 0.034 NT-Pro-B Natriuret Pep 03/03/18 03/03/18 03/04/18 10:40 10:40 05:22 Creatine Kinase 24 L CK-MB (CK-2) 0.62 Troponin I 0.018 NT-Pro-B Natriuret Pep 3140 H 03/05/18 03/06/18 03/08/18 05:08 04:58 16:14 Creatine Kinase CK-MB (CK-2) Troponin I NT-Pro-B Natriuret Pep 2970 H 3340 H 7920 H 03/09/18 03/09/18 03/09/18 09:30 09:30 15:27 Creatine Kinase 49 L 39 L CK-MB (CK-2) 0.50 Troponin I 0.080 NT-Pro-B Natriuret Pep 03/09/18 03/09/18 03/09/18 15:27 22:06 22:06 Creatine Kinase 30 L CK-MB (CK-2) 0.30 < 0.22 Troponin I 0.067 0.072 NT-Pro-B Natriuret Pep Impressions: KUB X-Ray 03/09/18 14:15 IMPRESSION: Nasogastric tube tip in the stomach. Chest X-Ray 03/20/18 06:00 IMPRESSION: NO ACUTE RADIOGRAPHIC FINDING IN THE CHEST. Assessment & Plan - Diagnosis (1) Acute exacerbation of CHF (congestive heart failure) Qualifiers: Heart failure type: systolic Qualified Code(s): I50.23 - Acute on chronic s ystolic (congestive) heart failure Is this a current diagnosis for this admission?: Yes Plan: 03/03/2018. 2D echo ejection fraction 55%. Monitor volume status. Strict in and out. Regular diet. Continue p.o. Lasix. (2) Acute respiratory failure with hypoxia and hypercapnia Is this a current diagnosis for this admission?: Yes Plan: Improving. Saturating 90-95% on 4 L. Patient was extubated on 03/16/2018. (3) COPD (chronic obstructive pulmonary disease) with emphysema Qualifiers: Emphysema type: centrilobular Qualified Code(s): J43.2 - Centrilobular emphysema Is this a current diagnosis for this admission?: Yes Plan: Nebs, continue oral prednisone. Switched on 03/18/2018. (4) Morbid obesity with alveolar hypoventilation Is this a current diagnosis for this admission?: Yes Plan: Diet and lifestyle modification. (5) Atrial fibrillation Qualifiers: Atrial fibrillation type: permanent Qualified Code(s): I48.2 - Chronic atrial fibrillation Is this a current diagnosis for this admission?: Yes Plan: Heart rate running in 130s. On Cardizem drip. Continue Eliquis. Cardiology on board.
[2018-03-22] MEDS ORDERED: DIGOXIN INJ 0.5 MG/2 ML AMPULE IV ONE ×2 (19:30→21:45)
--- NOTE | 2018-03-22 19:42 | Progress Note ---
Provider Note Provider Note: CARDIOLOGY PROGRESS NOTE by Dr. Corina Foster on . I had signed off the case, but I had been asked to see the patient again since the patient developed tachycardia. SUBJECTIVE: The patient all of a sudden went into a heart rate of 139 bpm which is atrial flutter with a right bundle branch block pattern. The patient is symptomatic. He does not feel any flatus. He denies any PND orthopnea. There is no cough or sputum production. There is no symptoms of acute exacerbation of COPD, and is at his baseline. This is been an improvement from admission acute exacerbation of COPD. He denies chest pain or discomfort. There is no bleeding on Eliquis. There is no TIA CVA symptoms. On further inquiry it is noted that for some reason his beta-raine had been stopped. PHYSICAL EXAMINATION: The patient is moderately obese. He is well-groomed. He is in no acute distress. Selected Entries 03/22/18 15:49 Temperature 98.0 F Temperature Oral Source Respiratory 18 Rate BP Location Right Arm BP Position Sitting O2 Sat by Pulse 90 L Oximetry Oxygen Delivery Room Air Method HEAD: Head is atraumatic and normocephalic. EYES: Pupils are equal round regular reactive to light accommodation. Extraocular movements are normal, there is no conjunctival pallor, and no scleral icterus. EARS: Tympanic membranes are intact external auditory canals are clear. NOSE: There is no inflammation of the nasal mucous membrane there is no deviated nasal septum. MOUTH: Mucous membranes of mouth and tongue are moist, there is no ulcers in the mouth or tongue, and no bleeding from the gums. THROAT: There is no redness of the oropharynx, no exudate seen. SKIN: There is no petechia or ecchymosis. There is no rashes or lesions. NECK: Supple. There is no JVD. Carotids are equal there is no bruit. There is no lymphadenopathy. There is no goiter. Trachea central LUNGS: There is diminished air entry and prolonged expiration. Clear to auscultation bilaterally, no wheezes, rales, but there is diffuse rhonchi. On percussion there is hyperresonance although there is no chest wall tenderness HEART: S1 and S2 are heard. S1 is of normal intensity, there is no S3 or S4 gallops. There is a systolic murmur the left sternal border and the apex. There is no rub. ABDOMEN: Normoactive bowel sounds, soft, nontender, no masses, no rebound, no guarding. There is no hepatosplenomegaly. EXTREMITIES: Femorals are slightly diminished. There is no femoral bruits. Leg pulses are diminished. There is no pedal edema. There is no DVT or cellulitis. There is no cyanosis or clubbing. There is no calf tenderness. NEUROLOGICAL the patient is awake alert oriented 3 with no focal deficits. PSYCHIATRIC: The patient judgment and insight are intact his affect is normal. 03/22/18 03/22/18 11:24 16:48 POC Glucose 169 H 278 H Review of the monitor strips strip shows that the patient is atrial flutter with rapid ventricular response. Although patient asymptomatic. IMPRESSION/RECOMMENDATION: 1. Recurrence of paroxysmal atrial flutter with rapid ventricular response. The patient initially was given metoprolol 2.5 mg IV push x1 and 5 mg IV push x1. This did not change the patient's heart rate. It stayed at 139 bpm. Subsequently the patient was started on IV Cardizem drip initially at 5 mg/h, and will increase as tolerated. Continue the patient's Eliquis. 2. Acute on chronic respiratory failure with hypoxemia and hypercapnia: Patient extubated, and improving slowly. Continue respiratory treatments and antibiotics. 3. Acute exacerbation of COPD: Seems to be much improved. Continue current treatment. 4. Hypertension: Blood pressure well controlled. 5. Coronary artery disease: At present no evidence of anginal symptoms. 6. 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 7. History of diabetes mellitus type 2 insulin-dependent. Continue insulin and monitor blood sugar and adjust insulin dosage as per blood sugar. 8. Tobacco abuse: Tobacco cessation counseling given. 3 minutes spent on this. 9. Moderate pulmonary hypertension: Discussed with the patient the importance of wearing BiPAP and tobacco cessation. 10. History of sleep apnea. Intolerant to CPAP. 11. RIGHT BUNDLE BRANCH PATTERN. MEDICATIONS reviewed. Medications adjusted. New medications ordered. Medical decision making is of high complexity. 40 minutes spent on this patient with more than 50% time spent in direct patient care. Management plan discussed with attending physician on the case. Discussed with the patient and the patient's , about the patient developing asymptomatic atrial flutter.
[2018-03-22] MEDS: SIMVASTATIN 10 MG TABLET PO SCH (22:01)
--- NOTE | 2018-03-22 23:59 | RADIOLOGY REPORT (SQ) ---
EXAM DESCRIPTION: XR CHEST 1 VIEW COMPLETED DATE/TME: 03/22/2018 23:16 CLINICAL HISTORY: 67 years, Male, central line placement COMPARISON: 2-19 chest NUMBER OF VIEWS: 1 TECHNIQUE: Portable chest LIMITATIONS: None. FINDINGS: Stable cardiomegaly. Electronic device projects over the left heart border. Hiylry-a-Khyi catheter in place. Left IJ central venous catheter with the tip likely in the SVC. No pneumothorax. Lungs are clear. Mild atheromatous change thoracic aorta. Osteopenia. IMPRESSION: Tip of the central venous catheter likely in the SVC. Other findings are stable copyright 2010 [employer]- All Rights Reserved
[2018-03-23] MEDS: LEVALBUTEROL HCL NEB 1.25 MG/3 ML AMPUL NEB SCH ×4 (01:34→19:44)
[2018-03-23] MEDS: NORMAL SALINE 1000 ML 1,000 ML IV PRN (03:55)
[2018-03-23] MEDS: GABAPENTIN 300 MG CAPSULE PO SCH ×4 (06:27→23:19)
[2018-03-23 07:00] LABS: ABSOLUTE EOSINOPHILS # (AUTO) 0.1 10^3/uL (0.0-0.6); ABSOLUTE LYMPHOCYTES (AUTO) 0.6 10^3/uL (0.5-4.7); ABSOLUTE MONOCYTES (AUTO) 0.7 10^3/uL (0.1-1.4); ABSOLUTE NEUT (AUTO) 9.4 10^3/uL (1.7-8.2); BASOPHILS % (AUTO) 0.2 % (0-2); EOSINOPHILS % (AUTO) 1.2 % (0-6); HEMATOCRIT 35.7 % (37.9-51.0); HEMOGLOBIN 11.3 g/dL (13.5-17.0); LYMPHOCYTES % (AUTO) 5.7 % (13-45); MEAN CORPUSCULAR HEMOGLOBIN 25.6 pg (27.0-33.4); MEAN CORPUSCULAR HGB CONC 31.8 g/dL (32.0-36.0); MEAN CORPUSCULAR VOLUME 80 fl (80-97); MONOCYTES % (AUTO) 6.1 % (3-13); PLATELET COUNT 154 10^3/uL (150-450); RED BLOOD COUNT 4.44 10^6/uL (4.35-5.55); RED CELL DISTRIBUTION WIDTH 18.5 % (11.5-14.0); SEGMENTED NEUTROPHILS % (AUTO) 86.8 % (42-78); TOTAL CELLS COUNTED % (AUTO) 100 %; WHITE BLOOD COUNT 10.8 10^3/uL (4.0-10.5)
[2018-03-23 07:27] LABS: ALANINE AMINOTRANSFERASE 91 U/L (21-72); ALBUMIN 3.3 g/dL (3.5-5.0); ALKALINE PHOSPHATASE 112 U/L (38-126); ANION GAP 7 (5-19); ASPARTATE AMINO TRANSFERASE 33 U/L (17-59); BILIRUBIN,DIRECT 0.4 mg/dL (0.0-0.4); BLOOD UREA NITROGEN 27 mg/dL (7-20); CALCIUM 8.4 mg/dL (8.4-10.2); CARBON DIOXIDE 36 mmol/L (22-30); CHLORIDE 97 mmol/L (98-107); GLUCOSE 93 mg/dL (75-110); POTASSIUM 3.6 mmol/L (3.6-5.0); SODIUM 140.1 mmol/L (137-145); TOTAL PROTEIN 5.3 g/dL (6.3-8.2)
[2018-03-23] MEDS: ACETYLCYSTEINE 20% SOLN 800 MG/4 ML VIAL.NEB NEB SCH ×2 (07:42→19:44)
[2018-03-23] MEDS: INSULIN LISPRO 100 UNIT/ML 3 ML VIAL SUBCUT SCH ×5 (08:10→21:20)
[2018-03-23] MEDS: FUROSEMIDE 40 MG TABLET PO SCH (09:52)
[2018-03-23] MEDS: PREDNISONE 20 MG TABLET PO SCH (09:52)
[2018-03-23] MEDS: ASPIRIN 81 MG TABLET, CHEWABLE PO SCH (09:53)
[2018-03-23] MEDS: APIXABAN 5 MG TABLET PO SCH (09:53)
[2018-03-23] MEDS: INSULIN GLARGINE,HUM.REC.ANLOG 1,000 UNIT/10 ML UNIT SUBCUT SCH (10:02)
[2018-03-23] MEDS ORDERED: DIGOXIN INJ 0.5 MG/2 ML AMPULE ONE (10:43)
[2018-03-23] MEDS ORDERED: DIGOXIN INJ 0.5 MG/2 ML AMPULE IV ONE (11:00)
[2018-03-23] MEDS ORDERED: DEXTROSE 50%-WATER 25 GM/50 ML DISP.SYRIN IV PRN ×2 (12:53)
[2018-03-23] MEDS ORDERED: GLUCAGON,HUMAN RECOMB 1 MG INJ IM PRN (12:53)
[2018-03-23] MEDS ORDERED: DEXTROSE 40% GEL 15 GM TUBE PO PRN ×2 (12:53)
--- NOTE | 2018-03-23 13:14 | PDOC PROGRESS REPORT ---
Subjective Progress Note for:: 03/23/18 Subjective:: No acute events overnight. Off of Cardizem drip since last night. Currently sinus rhythm. Comfortably sitting in bed receiving his neb treatments. Denying any chest pain, fever, chills, nausea, vomiting, diarrhea, constipation or any urinary symptoms. Reason For Visit: CHF Physical Exam Vital Signs: Temp Pulse Resp BP Pulse Ox 97.8 F 71 20 124/57 L 98 03/23/18 11:11 03/23/18 11:11 03/23/18 11:11 03/23/18 11:11 03/23/18 11:11 Intake & Output 03/22/18 03/23/18 03/24/18 06:59 06:59 06:59 Intake Total 3970 1179 Output Total 6500 950 Balance -2530 229 Weight 119.3 kg 118 kg General appearance: PRESENT: no acute distress, well-developed, well-nourished Head exam: PRESENT: atraumatic, normocephalic Respiratory exam: PRESENT: clear to auscultation ernesto. ABSENT: rales, rhonchi, wheezes GI/Abdominal exam: PRESENT: normal bowel sounds, soft. ABSENT: distended, guarding, mass, organolmegaly, rebound, tenderness Extremities exam: PRESENT: full ROM. ABSENT: calf tenderness, clubbing, pedal edema Neurological exam: PRESENT: alert, awake, oriented to person, oriented to place, oriented to time, oriented to situation, CN II-XII grossly intact. ABSENT: motor sensory deficit Results Laboratory Results: 03/23/18 06:35 03/23/18 06:35 03/23/18 03/23/18 06:35 06:35 WBC 10.8 H RBC 4.44 Hgb 11.3 L Hct 35.7 L MCV 80 MCH 25.6 L MCHC 31.8 L RDW 18.5 H Plt Count 154 Seg Neutrophils % 86.8 H Lymphocytes % 5.7 L Monocytes % 6.1 Eosinophils % 1.2 Basophils % 0.2 Absolute Neutrophils 9.4 H Absolute Lymphocytes 0.6 Absolute Monocytes 0.7 Absolute Eosinophils 0.1 Absolute Basophils 0.0 Sodium 140.1 Potassium 3.6 Chloride 97 L Carbon Dioxide 36 H Anion Gap 7 BUN 27 H Creatinine 0.58 Est GFR ( Amer) > 60 Est GFR (Non-Af Amer) > 60 Glucose 93 Calcium 8.4 Magnesium 1.9 Total Bilirubin 1.0 AST 33 ALT 91 H Alkaline Phosphatase 112 Total Protein 5.3 L Albumin 3.3 L 03/02/18 03/02/18 03/02/18 18:56 21:12 22:37 Creatine Kinase 30 L CK-MB (CK-2) Troponin I 0.029 0.034 NT-Pro-B Natriuret Pep 3470 H 03/02/18 03/03/18 03/03/18 22:37 04:24 04:24 Creatine Kinase 25 L CK-MB (CK-2) 0.92 0.82 Troponin I 0.036 0.034 NT-Pro-B Natriuret Pep 03/03/18 03/03/18 03/04/18 10:40 10:40 05:22 Creatine Kinase 24 L CK-MB (CK-2) 0.62 Troponin I 0.018 NT-Pro-B Natriuret Pep 3140 H 03/05/18 03/06/18 03/08/18 05:08 04:58 16:14 Creatine Kinase CK-MB (CK-2) Troponin I NT-Pro-B Natriuret Pep 2970 H 3340 H 7920 H 03/09/18 03/09/18 03/09/18 09:30 09:30 15:27 Creatine Kinase 49 L 39 L CK-MB (CK-2) 0.50 Troponin I 0.080 NT-Pro-B Natriuret Pep 03/09/18 03/09/18 03/09/18 15:27 22:06 22:06 Creatine Kinase 30 L CK-MB (CK-2) 0.30 < 0.22 Troponin I 0.067 0.072 NT-Pro-B Natriuret Pep 03/22/18 20:00 Creatine Kinase CK-MB (CK-2) Troponin I 0.152 NT-Pro-B Natriuret Pep Impressions: KUB X-Ray 03/09/18 14:15 IMPRESSION: Nasogastric tube tip in the stomach. Chest X-Ray 03/22/18 23:16 IMPRESSION: Tip of the central venous catheter likely in the SVC. Other findings are stable copyright 2011 [employer]- All Rights Reserved Assessment & Plan - Diagnosis (1) Acute exacerbation of CHF (congestive heart failure) Qualifiers: Heart failure type: systolic Qualified Code(s): I50.23 - Acute on chronic systolic (congestive) heart failure Is this a current diagnosis for this admission?: Yes Plan: 03/03/2018. 2D echo ejection fraction 55%. BNP 03/08/2018 7920 Monitor volume status. Cardiac diet. Strict in and out. Continue Lasix added by vitals. Fluid restriction. Fluid intake 1179, output 950, balance +229. Weight 118 kg down from 143.6 kg on admission (2) Acute respiratory failure with hypoxia and hypercapnia Is this a current diagnosis for this admission?: Yes Plan: Improving. Saturating 92-98% on 4 L NC. Patient was extubated on 03/16/2018. Continue treatment for underlying COPD exacerbation and CHF exacerbation. (3) COPD (chronic obstructive pulmonary disease) with emphysema Qualifiers: Emphysema type: centrilobular Qualified Code(s): J43.2 - Centrilobular emphysema Is this a current diagnosis for this admission?: Yes Plan: Continue nebs, BiPAP, decrease prednisone to 10 mg today. DC steroids tomorrow. (4) Morbid obesity with alveolar hypoventilation Is this a current diagnosis for this admission?: Yes Plan: Diet and lifestyle modification. (5) Atrial fibrillation Qualifiers: Atrial fibrillation type: permanent Qualified Code(s): I48.2 - Chronic atrial fibrillation Is this a current diagnosis for this admission?: Yes Plan: Not controlled. Restart Cardizem drip. Continue Eliquis. Cardiology on board. (6) Diabetes Is this a current diagnosis for this admission?: Yes Plan: Not controlled. Worsened due to steroids receiving for COPD exacerbation. Continue Lantus, pre-meal, sliding scale, diabetic diet. Adjust dosage as needed. Outpatient PCP follow-up. (7) CAD (coronary artery disease) Is this a current diagnosis for this admission?: Yes Plan: Continue aspirin, beta-blockers, statin. Out patient cardiology follow-up.
[2018-03-23 15:11] LABS: ARTERIAL BLOOD BASE EXCESS 9.1 mmol/L; ARTERIAL BLOOD H2CO3 1.42 mmol/L (1.05-1.35); ARTERIAL BLOOD HCO3 33.9 mmol/L (20-24); ARTERIAL BLOOD PCO2 47.2 mmHg (35-45); ARTERIAL BLOOD PH 7.47 (7.35-7.45); ARTERIAL BLOOD PO2 65.7 mmHg (80-100); ARTERIAL BLOOD TOTAL CO2 35.3 mmol/L (23-27)
[2018-03-23 15:14] LABS: ARTERIAL BLOOD FIO2 4L
--- NOTE | 2018-03-23 15:55 | RADIOLOGY REPORT (SQ) ---
EXAM DESCRIPTION: CHEST SINGLE VIEW COMPLETED DATE/TIME: 03/23/2018 3:18 pm REASON FOR STUDY: SOB COMPARISON: 03/22/2018 EXAM PARAMETERS: NUMBER OF VIEWS: One view. TECHNIQUE: Single frontal radiographic view of the chest acquired. RADIATION DOSE: NA LIMITATIONS: None. FINDINGS: LUNGS AND PLEURA: No focal consolidation, pleural effusion or pneumothorax. MEDIASTINUM AND HILAR STRUCTURES: Enlarged pulmonary arteries, stable. HEART AND VASCULAR STRUCTURES: Enlarged, stable. Atherosclerotic aorta. BONES: No acute bony abnormality. HARDWARE: Loop recorder overlies left chest. Right chest port catheter tip at right atrium. Left in ternal jugular central venous catheter tip overlies innominate/ SVC junction OTHER: No other significant finding. IMPRESSION: Stable enlarged cardiac silhouette without evidence of acute cardiopulmonary process. TECHNICAL DOCUMENTATION: JOB ID: [id number] [employer]- All Rights Reserved Reading location - IP/workstation name: [email or web address]
[2018-03-23] MEDS: ACETAMINOPHEN 325 MG TABLET PO PRN ×2 (16:25→21:12)
[2018-03-23] MEDS ORDERED: FUROSEMIDE 40 MG TABLET PO SCH (18:00)
[2018-03-23] MEDS: FUROSEMIDE 20 MG TABLET PO SCH (18:08)
[2018-03-23] MEDS: SIMVASTATIN 10 MG TABLET PO SCH (21:11)
--- NOTE | 2018-03-23 21:42 | EKG REPORT ---
SEVERITY:- ABNORMAL ECG - ATRIAL FIBRILLATION RIGHT BUNDLE BRANCH BLOCK INFERIOR INFARCT, POSSIBLY ACUTE CONSIDER ANTERIOR INFARCT IVCD : Confirmed by: Harjinder Pierce 23-Mar-2018 21:42:10
--- NOTE | 2018-03-23 22:05 | Progress Note ---
Provider Note Provider Note: ACTIVE MEDICATIONS Generic Name Dose Route Start Last Admin Trade Name Freq PRN Reason Stop Dose Admin Acetaminophen 650 mg 03/16/18 12:30 03/23/18 21:12 Tylenol 325 Mg Tablet PO 04/01/18 22:09 650 mg Q4HP PRN Administration pain or temp greater than 101F Acetylcysteine 600 mg 03/20/18 20:00 03/23/18 19:44 Mucomist 20% Soln 800 Mg/4 Ml NEB 04/19/18 19:59 600 mg RTBID EMIL Administration Al Hydrox/Mg Hydrox/Simethicone 30 ml 03/16/18 12:30 Maalox Plus Susp 30 Udcup PO 04/01/18 22:09 Q4HP PRN HEARTBURN Apixaban 5 mg 03/18/18 22:00 03/23/18 09:53 Eliquis 5 Mg Tablet PO 04/16/18 09:59 5 mg Q12 EMIL Administration Aspirin 81 mg 03/17/18 10:00 03/23/18 09:53 Aspirin 81 Mg Chewable Tablet PO 04/09/18 09:59 81 mg DAILY EMIL Administration Dextrose 12.5 gm 03/02/18 22:13 Dextrose Inj 50% Syringe (25 Gm/50 Ml) IV 04/01/18 22:12 PRN PRN FOR BG 50-69 IN ALERT PATIENT Protocol Dextrose 25 gm 03/02/18 22:13 Dextrose Inj 50% Syringe (25 Gm/50 Ml) IV 04/01/18 22:12 PRN PRN PER PROTOCOL Protocol Furosemide 20 mg 03/23/18 18:00 03/23/18 18:08 Lasix 20 Mg Tablet PO 04/22/18 17:59 20 mg BID EMIL Administration Gabapentin 600 mg 03/16/18 18:00 03/23/18 18:09 Neurontin 300 Mg Capsule PO 04/11/18 00:00 600 mg Q6 EMIL Administration Glucagon 1 mg 03/02/18 22:13 Glucagen Inj 1 Mg Vial IM 04/01/18 22:12 PRN PRN Evaluate for BG < 70 Protocol Glucose 15 gm 03/16/18 12:30 Glutose 40% Gel 15 Gm Tube PO 04/01/18 22:12 PRN PRN FOR BG 50-69 IN ALERT PATIENT Protocol Glucose 30 gm 03/16/18 12:30 Glutose 40% Gel 15 Gm Tube PO 04/01/18 22:12 PRN PRN FOR BG < 50 IN ALERT PATIENT Protocol Heparin Sodium (Porcine) 30 unit 03/09/18 22:00 03/23/18 21:14 Heparin Flush 10 Unit/Ml 5 Ml Disp.Syrg IV 04/08/18 21:59 Not Given Q8 EMIL Diltiazem HCl 125 mg in 125 mls @ 0 mls/hr 03/22/18 14:25 03/23/18 20:00 Cardizem Rtu Inj 125 Mg-D5w 125 Ml Premix IV 04/21/18 14:24 15 mls/hr CONTINUOUS PRN Titration THIS MED IS NOT "PRN" Protocol Titrate Insulin Glargine 35 unit 03/23/18 09:00 03/23/18 10:02 Lantus Insulin 100 Unit/1 Ml 10 Ml SUBCUT 04/22/18 08:59 35 unit QAM EMIL Administration Insulin Human Lispro 0 - 12 unit 03/16/18 11:00 03/23/18 21:20 Humalog Insulin 100 Unit/1 Ml 3 Ml Vial SUBCUT 04/01/18 10:59 8 unit ACHS EMIL Administration Protocol Insulin Human Lispro 3 unit 03/23/18 16:00 03/23/18 17:57 Humalog Insulin 100 Unit/1 Ml 3 Ml Vial SUBCUT 04/22/18 15:59 3 unit AC EMIL Administration Protocol Levalbuterol HCl 1.25 mg 03/09/18 14:00 03/23/18 19:44 Xopenex Neb 1.25 Mg/3 Ml Ampul NEB 04/08/18 13:59 1.25 mg RTQ6 EMIL Administration Levalbuterol HCl 0.63 mg 03/09/18 09:39 Xopenex Neb 0.63 Mg/3 Ml Ampul NEB 04/08/18 09:38 RTQ4HP PRN SOB/WHEEZING Magnesium Hydroxide 30 ml 03/16/18 12:30 Milk Of Magnesia 30 Ml Udcup PO 04/01/18 22:09 HSP PRN FOR CONSTIPATION Metoprolol Succinate 25 mg 03/17/18 10:00 03/20/18 09:30 Toprol Xl 25 Mg Tab.Sr PO 04/16/18 09:59 Not Given Q12 EMIL Prednisone 10 mg 03/24/18 10:00 Deltasone 10 Mg Tablet PO 04/23/18 09:59 DAILY EMIL Simvastatin 20 mg 03/16/18 22:00 03/23/18 21:11 Zocor 10 Mg Tablet PO 04/02/18 21:59 20 mg QHS EMIL Administration Sodium Chloride 2.5 ml 03/03/18 06:00 03/23/18 21:13 Saline Flush 2.5 Ml Monoject Prefil Syrin IV 04/02/18 05:59 Not Given Q8 EMIL Sodium Chloride 10 ml 03/09/18 14:13 Nacl 0.9% Inj/Pf 10 Ml Sdv IV 04/08/18 14:12 .AFTER EACH USE PRN AFTER EACH INTERMITTENT USE 03/23/18 14:24 ABG Collection by HEALTH INFORMATION ASSISTANT [RESPCARE] .on order 03/23/18 14:30 Patient Education-Urinary Cath [RC] DAILY Urinary Cath Obs & Care [RC] QSHIFT Urinary Cath Removal Criteria [RC] DAILY 03/23/18 16:00 Insulin Lispro [Humalog Insulin 100 Unit/1 ml 3 ml Vial] 3 unit SUBCUT AC 03/23/18 18:00 Furosemide [Lasix 20 mg Tablet] 20 mg PO BID 03/24/18 06:00 CBC WITH DIFF [HEME] IN AM COMPREHENSIVE METABOLIC PANEL [CHEM] IN AM MAGNESIUM [CHEM] IN AM 03/24/18 10:00 Prednisone [Deltasone 10 mg Tablet] 10 mg PO DAILY Labs- All tests 24 hr 03/23/18 03/23/18 03/23/18 06:04 06:35 06:35 WBC 10.8 H RBC 4.44 Hgb 11.3 L Hct 35.7 L MCV 80 MCH 25.6 L MCHC 31.8 L RDW 18.5 H Plt Count 154 Seg Neutrophils % 86.8 H Lymphocytes % 5.7 L Monocytes % 6.1 Eosinophils % 1.2 Basophils % 0.2 Absolute Neutrophils 9.4 H Absolute Lymphocytes 0.6 Absolute Monocytes 0.7 Absolute Eosinophils 0.1 Absolute Basophils 0.0 Carbonic Acid HCO3/H2CO3 Ratio ABG pH ABG pCO2 ABG pO2 ABG HCO3 ABG Total CO2 ABG O2 Saturation ABG Base Excess FiO2 Sodium 140.1 Potassium 3.6 Chloride 97 L Carbon Dioxide 36 H Anion Gap 7 BUN 27 H Creatinine 0.58 Est GFR ( Amer) > 60 Est GFR (Non-Af Amer) > 60 Glucose 93 POC Glucose 106 Calcium 8.4 Magnesium 1.9 Total Bilirubin 1.0 Direct Bilirubin 0.4 Neonat Total Bilirubin Not Reportable Neonat Direct Bilirubin Not Reportable Neonat Indirect Bili Not Reportable AST 33 ALT 91 H Alkaline Phosphatase 112 Total Protein 5.3 L Albumin 3.3 L 03/23/18 03/23/18 03/23/18 11:12 14:55 21:11 WBC RBC Hgb Hct MCV MCH MCHC RDW Plt Count Seg Neutrophils % Lymphocytes % Monocytes % Eosinophils % Basophils % Absolute Neutrophils Absolute Lymphocytes Absolute Monocytes Absolute Eosinophils Absolute Basophils Carbonic Acid 1.42 H HCO3/H2CO3 Ratio 23:1 ABG pH 7.47 H ABG pCO2 47.2 H ABG pO2 65.7 L ABG HCO3 33.9 H ABG Total CO2 35.3 H ABG O2 Saturation 94.0 ABG Base Excess 9.1 FiO2 4L Sodium Potassium Chloride Carbon Dioxide Anion Gap BUN Creatinine Est GFR ( Amer) Est GFR (Non-Af Amer) Glucose POC Glucose 227 H 304 H Calcium Magnesium Total Bilirubin Direct Bilirubin Neonat Total Bilirubin Neonat Direct Bilirubin Neonat Indirect Bili AST ALT Alkaline Phosphatase Total Protein Albumin Chest X-Ray 03/02/18 17:08 IMPRESSION: HEART ENLARGED WITHOUT FAILURE. NO OTHER SIGNIFICANT RADIOGRAPHIC FINDING IN THE CHEST. Chest X-Ray 03/09/18 00:00 IMPRESSION: Chronic lung changes with no acute cardiopulmonary findings. Endotracheal tube placement. Chest X-Ray 03/09/18 06:00 IMPRESSION: Enlarged cardiac silhouette with central vascular congestion and the mild interstitial edema. Chest X-Ray 03/09/18 14:00 IMPRESSION: CENTRAL VENOUS ACCESS CATHETER IN APPROPRIATE LOCATION. NO PNEUMOTHORAX. NEW CENTRAL LINE. KUB X-Ray 03/09/18 14:15 IMPRESSION: Nasogastric tube tip in the stomach. Chest X-Ray 03/10/18 06:00 IMPRESSION: 1. Mild perihilar opacification bilaterally which may reflect edema. 2. Life support lines and tubes present as described above. Chest X-Ray 03/11/18 06:00 IMPRESSION: Right middle and lower lobe partial collapse and consolidation, new compared to 03/10/2018. Tubes and lines in good positioning. Chest X-Ray 03/12/18 06:00 IMPRESSION: 1. Persistent focal volume loss in the right inferior hemithorax which may be due to pneumonia, atelectasis or edema. 2. Stable cardiomegaly. 3. Stable life support lines and tubes. Chest X-Ray 03/13/18 06:30 IMPRESSION: Tubes and lines in good positioning. Persistent airspace disease in the right and left medial lung bases Chest X-Ray 03/14/18 06:30 IMPRESSION: 1. Increasing volume loss in the right lung base and grossly stable volume loss in the medial left lung base. 2. Stable life support lines and tubes. Chest X-Ray 03/15/18 06:00 IMPRESSION: No significant change when compared to the prior study. There is ongoing volume loss in the right lung base and medial left lung base. Life support lines and tubes are stable. Chest X-Ray 03/16/18 06:00 IMPRESSION: No significant change. Chest X-Ray 03/17/18 06:00 IMPRESSION: No significant change. Chest X-Ray 03/18/18 06:00 IMPRESSION: No significant change. Chest X-Ray 03/20/18 06:00 IMPRESSION: NO ACUTE RADIOGRAPHIC FINDING IN THE CHEST. Chest X-Ray 03/22/18 23:16 IMPRESSION: Tip of the central venous catheter likely in the SVC. Other findings are stable copyright 2011 [employer]- All Rights Reserved Chest X-Ray 03/23/18 00:00 IMPRESSION: Stable enlarged cardiac silhouette without evidence of acute cardiopulmonary process.
--- NOTE | 2018-03-23 22:48 | Progress Note ---
Provider Note Provider Note: CARDIOLOGY PROGRESS NOTE by Dr. Corina Foster on 03/23/2018. PHYSICAL EXAMINATION: The patient denies any shortness of breath. There is no PND orthopnea. The patient has gone into atrial fibrillation with a ventricular response in the 130s. This seems to be most likely due to to the 2 catheters in his heart. There is a left IJ which protrudes into the tip of the superior vena cava, and the patient does have a port which ends of the lower part of the right atrium. Note that the left superior vena cava TLC will be removed. Also would recommend that the patient's port be removed since that this may be a culprit in the patient's atrial fibrillation causing irritation of the right atrium by the catheter tip of the port. The patient is asymptomatic from his atrial fibrillation. He has no PND orthopnea. Denies any wheezing cough or sputum production. There is no bleeding on Eliquis. There is no TIA CVA symptoms. There is no pedal edema. PHYSICAL EXAMINATION: The patient is moderately obese. He is in no acute distress. He is well-groomed. Selected Entries 03/23/18 03/23/18 03/23/18 11:00 11:11 12:00 Temperature 97.8 F Temperature Oral Source Pulse Rate 71 Heart Rate ( 121 139 Monitors) Respiratory 20 Rate Blood Pressure 124/57 L Blood Pressure 79 Mean BP Location Right Arm BP Position Sitting O2 Sat by Pulse 98 Oximetry Oxygen Flow 4.00 Rate Oxygen Delivery Nasal Cannula Method HEAD: Head is atraumatic and normocephalic. EYES: Pupils are equal round regular reactive to light accommodation. Extraocular movements are normal, there is no conjunctival pallor, and no scleral icterus. EARS: Tympanic membranes are intact external auditory canals are clear. NOSE: There is no inflammation of the nasal mucous membrane there is no deviated nasal septum. MOUTH: Mucous membranes of mouth and tongue are moist, there is no ulcers in the mouth or tongue, and no bleeding from the gums. THROAT: There is no redness of the oropharynx, no exudate seen. SKIN: There is no petechia or ecchymosis. There is no rashes or lesions. NECK: Supple. There is no JVD. Carotids are equal there is no bruit. There is no lymphadenopathy. There is no goiter. Trachea central LUNGS: There is diminished air entry and prolonged expiration. Clear to auscultation bilaterally, no wheezes, rales, but there is diffuse rhonchi. On percussion there is hyperresonance although there is no chest wall tenderness HEART: S1 and S2 are heard. S1 is of variable intensity, there is no S3 or S4 gallops. There is a systolic murmur the left sternal border and the apex. There is no rub. ABDOMEN: Normoactive bowel sounds, soft, nontender, no masses, no rebound, no guarding. There is no hepatosplenomegaly. EXTREMITIES: Femorals are slightly diminished. There is no femoral bruits. Leg pulses are diminished. There is no pedal edema. There is no DVT or cellulitis. There is no cyanosis or clubbing. There is no calf tenderness. NEUROLOGICAL the patient is awake alert oriented 3 with no focal deficits. PSYCHIATRIC: The patient judgment and insight are intact his affect is normal. 03/23/18 03/23/18 03/23/18 06:04 06:35 06:35 WBC 10.8 H RBC 4.44 Hgb 11.3 L Hct 35.7 L MCV 80 MCH 25.6 L MCHC 31.8 L RDW 18.5 H Plt Count 154 Seg Neutrophils % 86.8 H Lymphocytes % 5.7 L Monocytes % 6.1 Eosinophils % 1.2 Basophils % 0.2 Absolute Neutrophils 9.4 H Absolute Lymphocytes 0.6 Absolute Monocytes 0.7 Absolute Eosinophils 0.1 Absolute Basophils 0.0 Carbonic Acid HCO3/H2CO3 Ratio ABG pH ABG pCO2 ABG pO2 ABG HCO3 ABG Total CO2 ABG O2 Saturation ABG Base Excess FiO2 Sodium 140.1 Potassium 3.6 Chloride 97 L Carbon Dioxide 36 H Anion Gap 7 BUN 27 H Creatinine 0.58 Est GFR (Non-Af Amer) > 60 Glucose 93 POC Glucose 106 Calcium 8.4 Magnesium 1.9 Total Bilirubin 1.0 Direct Bilirubin 0.4 Neonat Total Bilirubin Not Reportable Neonat Direct Bilirubin Not Reportable Neonat Indirect Bili Not Reportable AST 33 ALT 91 H Alkaline Phosphatase 112 Total Protein 5.3 L Albumin 3.3 L 03/23/18 14:55 WBC RBC Hgb Hct MCV MCH MCHC RDW Plt Count Seg Neutrophils % Lymphocytes % Monocytes % Eosinophils % Basophils % Absolute Neutrophils Absolute Lymphocytes Absolute Monocytes Absolute Eosinophils Absolute Basophils Carbonic Acid 1.42 H HCO3/H2CO3 Ratio 23:1 ABG pH 7.47 H ABG pCO2 47.2 H ABG pO2 65.7 L ABG HCO3 33.9 H ABG Total CO2 35.3 H ABG O2 Saturation 94.0 ABG Base Excess 9.1 FiO2 4L Sodium Potassium Chloride Carbon Dioxide Anion Gap BUN Creatinine Est GFR (Non-Af Amer) Glucose POC Glucose Calcium Magnesium Total Bilirubin Direct Bilirubin Neonat Total Bilirubin Neonat Direct Bilirubin Neonat Indirect Bili AST ALT Alkaline Phosphatase Total Protein Albumin The patient's chest x-ray shows cardiomegaly. The left superior vena cava triple-lumen catheter tip is in the superior vena cava. There is a Port-A-Cath with the tip of the catheter is in the right atrium lower and. There is no heart failure. The patient EKG shows atrial fibrillation with right bundle branch block pattern. IMPRESSION/RECOMMENDATION: 1. Recurrence of paroxysmal atrial flutter with rapid ventricular response. The patient initially was given metoprolol 2.5 mg IV push x1 and 5 mg IV push x1. This did not change the patient's heart rate. It stayed at 139 bpm. The patient is on a Cardizem drip at 15 mg/h. Will have the triple-lumen catheter removed. We will also ask the surgical list to remove the port cath, since this is not being used. [Patient has remote history of lymphoma which has been cured] 2. Acute on chronic respiratory failure with hypoxemia and hypercapnia: Patient extubated, and improving slowly. Continue respiratory treatments and antibiotics. 3. Acute exacerbation of COPD: Seems to be much improved. Continue current treatment. 4. Hypertension: Blood pressure well controlled. 5. Coronary artery disease: At present no evidence of anginal symptoms. 6. 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 7. History of diabetes mellitus type 2 insulin-dependent. Continue insulin and monitor blood sugar and adjust insulin dosage as per blood sugar. 8. Tobacco abuse: Tobacco cessation counseling given. 3 minutes spent on this. 9. Moderate pulmonary hypertension: Discussed with the patient the importance of wearing BiPAP and tobacco cessation. 10. History of sleep apnea. Intolerant to CPAP. 11. RIGHT BUNDLE BRANCH PATTERN. MEDICATIONS reviewed. Medications adjusted. New medications ordered. Medical decision making is of high complexity. 40 minutes spent on this patient with more than 50% time spent in direct patient care. Management plan discussed with attending physician on the case. Discussed with the patient and the patient's , about the patient developing asymptomatic atrial fibrillation.
[2018-03-23] MEDS: DILTIAZEM HCL/D5W 125 MG/125 ML RTUINJ IV PRN (23:09)
[2018-03-24] MEDS: LEVALBUTEROL HCL NEB 1.25 MG/3 ML AMPUL NEB SCH ×4 (01:35→19:59)
[2018-03-24] MEDS ORDERED: DILTIAZEM HCL 60 MG TABLET PO SCH (03:00)
[2018-03-24] MEDS: GABAPENTIN 300 MG CAPSULE PO SCH ×3 (05:45→19:41)
[2018-03-24 06:40] LABS: ABSOLUTE EOSINOPHILS # (AUTO) 0.2 10^3/uL (0.0-0.6); ABSOLUTE LYMPHOCYTES (AUTO) 0.6 10^3/uL (0.5-4.7); ABSOLUTE MONOCYTES (AUTO) 0.7 10^3/uL (0.1-1.4); ABSOLUTE NEUT (AUTO) 9.6 10^3/uL (1.7-8.2); BASOPHILS % (AUTO) 0.2 % (0-2); EOSINOPHILS % (AUTO) 1.6 % (0-6); HEMATOCRIT 34.7 % (37.9-51.0); HEMOGLOBIN 11.1 g/dL (13.5-17.0); LYMPHOCYTES % (AUTO) 5.4 % (13-45); MEAN CORPUSCULAR HEMOGLOBIN 25.5 pg (27.0-33.4); MEAN CORPUSCULAR HGB CONC 31.8 g/dL (32.0-36.0); MEAN CORPUSCULAR VOLUME 80 fl (80-97); PLATELET COUNT 141 10^3/uL (150-450); RED BLOOD COUNT 4.33 10^6/uL (4.35-5.55); RED CELL DISTRIBUTION WIDTH 19.1 % (11.5-14.0); SEGMENTED NEUTROPHILS % (AUTO) 86.8 % (42-78); TOTAL CELLS COUNTED % (AUTO) 100 %; WHITE BLOOD COUNT 11.1 10^3/uL (4.0-10.5)
[2018-03-24 07:07] LABS: ALANINE AMINOTRANSFERASE 82 U/L (21-72); ALBUMIN 3.1 g/dL (3.5-5.0); ALKALINE PHOSPHATASE 138 U/L (38-126); ANION GAP 9 (5-19); ASPARTATE AMINO TRANSFERASE 32 U/L (17-59); BILIRUBIN,DIRECT 0.4 mg/dL (0.0-0.4); BILIRUBIN,TOTAL 0.9 mg/dL (0.2-1.3); BLOOD UREA NITROGEN 30 mg/dL (7-20); CARBON DIOXIDE 34 mmol/L (22-30); CHLORIDE 97 mmol/L (98-107); GLUCOSE 132 mg/dL (75-110); POTASSIUM 3.6 mmol/L (3.6-5.0); SODIUM 139.7 mmol/L (137-145); TOTAL PROTEIN 5.1 g/dL (6.3-8.2)
[2018-03-24] MEDS: ACETYLCYSTEINE 20% SOLN 800 MG/4 ML VIAL.NEB NEB SCH ×2 (07:52→19:59)
[2018-03-24] MEDS: INSULIN LISPRO 100 UNIT/ML 3 ML VIAL SUBCUT SCH ×7 (08:46→21:45)
[2018-03-24] MEDS: INSULIN GLARGINE,HUM.REC.ANLOG 1,000 UNIT/10 ML UNIT SUBCUT SCH (09:08)
[2018-03-24] MEDS ORDERED: PREDNISONE 20 MG TABLET PO SCH (10:00)
[2018-03-24] MEDS ORDERED: DILTIAZEM HCL 90 MG TABLET PO SCH (12:00)
[2018-03-24] MEDS ORDERED: LIDOCAINE 1%/EPINEPHRINE INJ 20 ML VIAL ONE (12:46)
[2018-03-24] MEDS ORDERED: LIDOCAINE 1% INJ-PF (10 MG/ML) 30 ML SDV ONE ×2 (12:46→13:14)
--- NOTE | 2018-03-24 12:48 | PDOC PROGRESS REPORT ---
Subjective Progress Note for:: 03/24/18 Subjective:: No acute events overnight. Off of Cardizem drip since last night. Currently sinus rhythm. Comfortably sitting in bed on nasal cannula in no apparent distress.. Denying any chest pain, fever, chills, nausea, vomiting, diarrhea, constipation or any urinary symptoms. Reason For Visit: CHF Physical Exam Vital Signs: Temp Pulse Resp BP Pulse Ox 97.7 F 54 L 20 157/77 H 91 L 03/24/18 10:07 03/24/18 11:26 03/24/18 11:26 03/24/18 11:26 03/24/18 11:26 Intake & Output 03/23/18 03/24/18 03/25/18 06:59 06:59 06:59 Intake Total 1179 352 Output Total 950 6215 700 Balance 229 -4633 -700 Weight 118 kg 118.7 kg General appearance: PRESENT: no acute distress, well-developed, well-nourished Head exam: PRESENT: atraumatic, normocephalic Respiratory exam: PRESENT: clear to auscultation ernesto. ABSENT: rales, rhonchi, wheezes Cardiovascular exam: PRESENT: RRR. ABSENT: diastolic murmur, rubs, systolic murmur GI/Abdominal exam: PRESENT: normal bowel sounds, soft. ABSENT: distended, guarding, mass, organolmegaly, rebound, tenderness Extremities exam: PRESENT: full ROM. ABSENT: calf tenderness, clubbing, pedal edema Neurological exam: PRESENT: alert, awake, oriented to person, oriented to place, oriented to time, oriented to situation, CN II-XII grossly intact. ABSENT: motor sensory deficit Results Laboratory Results: 03/24/18 05:50 03/24/18 05:50 03/23/18 03/24/18 03/24/18 14:55 05:50 05:50 WBC 11.1 H RBC 4.33 L Hgb 11.1 L Hct 34.7 L MCV 80 MCH 25.5 L MCHC 31.8 L RDW 19.1 H Plt Count 141 L Seg Neutrophils % 86.8 H Lymphocytes % 5.4 L Monocytes % 6.0 Eosinophils % 1.6 Basophils % 0.2 Absolute Neutrophils 9.6 H Absolute Lymphocytes 0.6 Absolute Monocytes 0.7 Absolute Eosinophils 0.2 Absolute Basophils 0.0 Carbonic Acid 1.42 H HCO3/H2CO3 Ratio 23:1 ABG pH 7.47 H ABG pCO2 47.2 H ABG pO2 65.7 L ABG HCO3 33.9 H ABG O2 Saturation 94.0 ABG Base Excess 9.1 FiO2 4L Sodium 139.7 Potassium 3.6 Chloride 97 L Carbon Dioxide 34 H Anion Gap 9 BUN 30 H Creatinine 0.77 Est GFR ( Amer) > 60 Est GFR (Non-Af Amer) > 60 Glucose 132 H Calcium 8.0 L Magnesium 1.8 Total Bilirubin 0.9 AST 32 ALT 82 H Alkaline Phosphatase 138 H Total Protein 5.1 L Albumin 3.1 L 03/02/18 03/02/18 03/02/18 18:56 21:12 22:37 Creatine Kinase 30 L CK-MB (CK-2) Troponin I 0.029 0.034 NT-Pro-B Natriuret Pep 3470 H 03/02/18 03/03/18 03/03/18 22:37 04:24 04:24 Creatine Kinase 25 L CK-MB (CK-2) 0.92 0.82 Troponin I 0.036 0.034 NT-Pro-B Natriuret Pep 03/03/18 03/03/18 03/04/18 10:40 10:40 05:22 Creatine Kinase 24 L CK-MB (CK-2) 0.62 Troponin I 0.018 NT-Pro-B Natriuret Pep 3140 H 03/05/18 03/06/18 03/08/18 05:08 04:58 16:14 Creatine Kinase CK-MB (CK-2) Troponin I NT-Pro-B Natriuret Pep 2970 H 3340 H 7920 H 03/09/18 03/09/18 03/09/18 09:30 09:30 15:27 Creatine Kinase 49 L 39 L CK-MB (CK-2) 0.50 Troponin I 0.080 NT-Pro-B Natriuret Pep 03/09/18 03/09/18 03/09/18 15:27 22:06 22:06 Creatine Kinase 30 L CK-MB (CK-2) 0.30 < 0.22 Troponin I 0.067 0.072 NT-Pro-B Natriuret Pep 03/22/18 20:00 Creatine Kinase CK-MB (CK-2) Troponin I 0.152 NT-Pro-B Natriuret Pep Impressions: KUB X-Ray 03/09/18 14:15 IMPRESSION: Nasogastric tube tip in the stomach. Chest X-Ray 03/23/18 00:00 IMPRESSION: Stable enlarged cardiac silhouette without evidence of acute cardiopulmonary process. Assessment & Plan - Diagnosis (1) Acute exacerbation of CHF (congestive heart failure) Qualifiers: Heart failure type: systolic Qualified Code(s): I50.23 - Acute on chronic systolic (congestive) heart failure Is this a current diagnosis for this admission?: Yes Plan: 03/03/2018. 2D echo ejection fraction 55%. BNP 03/08/2018 7920 Monitor volume status. Cardiac diet. Strict in and out. Fluid restriction. Fluid balance -1800 Weight 118.7 kg down from 143.6 kg on admission (2) Acute respiratory failure with hypoxia and hypercapnia Is this a current diagnosis for this admission?: Yes Plan: Improving. SBP 123-136, afebrile, heart rate 54-116, treating in the 90s on 4.5 L nasal cannula FiO2 36%. Patient was extubated on 03/16/2018. Continue treatment for underlying COPD exacerbation and CHF exacerbation. (3) COPD (chronic obstructive pulmonary disease) with emphysema Qualifiers: Emphysema type: centrilobular Qualified Code(s): J43.2 - Centrilobular emphysema Is this a current diagnosis for this admission?: Yes Plan: Continue nebs, BiPAP, DC prednisone. SBP 123-136, afebrile, heart rate 54-116, saturating high 90s on 4.5 L nasal cannula FiO2 36%. (4) Morbid obesity with alveolar hypoventilation Is this a current diagnosis for this admission?: Yes Plan: Diet and lifestyle modification. (5) Atrial fibrillation Qualifiers: Atrial fibrillation type: permanent Qualified Code(s): I48.2 - Chronic atrial fibrillation Is this a current diagnosis for this admission?: Yes Plan: Controlled. Off of Cardizem drip. Switch to p.o. Cardizem. Has a right-sided Port-A-Cath for chemotherapy for his underlying lymphoma which was noticed on chest x-ray to be extending all the way to right atrium which may affect his rhythm. Dr. Gonsales his oncologist was called and stated that it could be removed if needed as he is done with his chemotherapy. Today his Port-A-Cath will be removed. (6) Diabetes Is this a current diagnosis for this admission?: Yes Plan: Better controlled. DC steroids. Worsened due to steroids receiving for COPD exacerbation. Continue Lantus, pre-meal, sliding scale, diabetic diet. Adjust dosage as needed. Outpatient PCP follow-up. (7) CAD (coronary artery disease) Is this a current diagnosis for this admission?: Yes Plan: Continue aspirin, beta-blockers, statin. Out patient cardiology follow-up.
[2018-03-24] MEDS ORDERED: MIDAZOLAM 2 MG/2 ML INJ ONE (12:55)
[2018-03-24] MEDS ORDERED: DIPHENHYDRAMINE HCL 50 MG/ML VIAL IV PRN (13:23)
[2018-03-24] MEDS ORDERED: FENTANYL CITRATE INJ/PF 100 MCG/2 ML AMPUL IV PRN ×3 (13:23)
[2018-03-24] MEDS ORDERED: ONDANSETRON HCL INJ/PF 4 MG/2 ML SDV IV PRN (13:23)
--- NOTE | 2018-03-24 14:38 | OPERATIVE REPORT E ---
Operative Report NAME: THEODORE SON : 1950 AGE: 67Y DATE OF SURGERY: 03/24/2018 ROOM: 303 PREOPERATIVE DIAGNOSIS: Port-A-Cath possibly irritating the atrium, causing atrial fibrillation. POSTOPERATIVE DIAGNOSIS: Port-A-Cath possibly irritating the atrium, causing atrial fibrillation PROCEDURE: Removal of Port-A-Cath. SURGEON: MAIN OLIVAS M.D. ANESTHESIA: Local MAC. INDICATIONS: This is a 67-year-old male who was noted to have atrial fibrillation. He has a Port-A-Cath that has been there for about 7 years for lymphoma, but not being used at this present time. The fabric awning repairer recommended removal of the Port-A-Cath to prevent irritation of the right atrium. DESCRIPTION OF PROCEDURE: The patient was placed in the supine position and given IV sedation. The right chest where the Port-A-Cath was then prepped and draped in the usual sterile fashion. Appropriate timeout was then called. Local anesthesia infiltrated around the Port-A-Cath. A transverse incision made over the previous scar about 2.5 cm long was made. Incision deepened down to the subcutaneous down into the Port-A-Cath. Port-A-Cath was bluntly dissected around and a couple of anchor sites were then divided and Port-A-Cath eventually lifted up over the skin. The incision site of the Port-A-Cath was laced with [id number] suture using 3-0 Vicryl that was left untied. The Port-A-Cath was subsequently pulled out with it having a little resistance since it has been there for at least 7 years. The Port-A-Cath eventually got pulled out completely. The pursestring was then tied over the insertion of the Port-A-Cath and hemostasis obtained. Next, the Port-A-Cath site was then sutured with 3 interrupted sutures using 3-0 Vicryl in the subcutaneous layer. This closed the space. Next, the skin incision was then closed with running suture using 3-0 nylon in a running fashion. Sterile dressings were placed over the operative site. Needle, instrument, sponge count were all correct. Estimated blood loss about less than 5 mL. Patient brought to recovery in satisfactory condition. DICTATING PHYSICIAN: MAIN OLIVAS M.D. [id number] PHY#: [id number] ID: [id number] JOB#: [id number] ACCT: [id number] cc:MAIN OLIVAS M.D. >
--- NOTE | 2018-03-24 15:03 | RADIOLOGY REPORT (SQ) ---
EXAM DESCRIPTION: CHEST SINGLE VIEW COMPLETED DATE/TIME: 03/24/2018 2:37 pm REASON FOR STUDY: POSTOP PACU COMPARISON: 03/23/2018, 03/22/2018, 03/20/2018 EXAM PARAMETERS: NUMBER OF VIEWS: One view. TECHNIQUE: Single frontal radiographic view of the chest acquired. RADIATION DOSE: NA LIMITATIONS: None. FINDINGS: LUNGS AND PLEURA: No opacities, masses or pneumothorax. No pleural effusion. MEDIASTINUM AND HILAR STRUCTURES: No masses. Contour normal. HEART AND VASCULAR STRUCTURES: Stable cardiomegaly BONES: No acute findings. HARDWARE: Left-sided triple-lumen catheter tip in the superior vena cava. Implanted cardiac monitori ng device over the anterior left chest OTHER: No other significant finding. IMPRESSION: Cardiomegaly. No acute infiltrates TECHNICAL DOCUMENTATION: JOB ID: [id number] [employer]- All Rights Reserved Reading location - IP/workstation name: [email or web address]
[2018-03-24] MEDS: PREDNISONE 10 MG TABLET PO SCH (16:04)
[2018-03-24] MEDS: ASPIRIN 81 MG TABLET, CHEWABLE PO SCH (16:04)
[2018-03-24] MEDS: APIXABAN 5 MG TABLET PO SCH ×2 (16:05→21:37)
[2018-03-24] MEDS: FUROSEMIDE 20 MG TABLET PO SCH ×2 (16:05→19:41)
[2018-03-24] MEDS: DILTIAZEM HCL 90 MG TABLET PO SCH (21:37)
[2018-03-24] MEDS: SIMVASTATIN 10 MG TABLET PO SCH (21:37)
--- NOTE | 2018-03-24 22:50 | EKG REPORT ---
SEVERITY:- ABNORMAL ECG - SINUS OR ECTOPIC ATRIAL RHYTHM RIGHT BUNDLE BRANCH BLOCK INFERIOR INFARCT, AGE INDETERMINATE ANTERIOR INFARCT, AGE INDETERMINATE : Confirmed by: Harjinder Pierce 24-Mar-2018 22:49:34
--- NOTE | 2018-03-24 23:16 | Progress Note ---
Provider Note Provider Note: CARDIOLOGY PROGRESS NOTE by Dr. Corina Foster on 03/24/2018. SUBJECTIVE: The patient is in atrial fibrillation. Initially was on IV Cardizem drip. This has been discontinued patient on p.o. Cardizem. He continues to be in atrial fibrillation with controlled ventricular response. The patient denies any chest pain or discomfort. There is no shortness of breath there is no PND orthopnea. There is no leg edema. There is no palpitations. There is no syncope. There is no ventricular arrhythmias seen. There is no TIA CVA symptoms.. His Eliquis had been held and will be restarted later after the Port-A-Cath is removed. The patient is for Port-A-Cath removed today. PHYSICAL EXAMINATION: The patient is moderately obese. In no acute distress. He is well-groomed. Selected Entries 03/24/18 03/24/18 03/24/18 10:07 11:00 11:26 Temperature 97.7 F Pulse Rate 116 H Heart Rate ( 88 Monitors) Blood Pressure 139/60 H Blood Pressure 86 Mean O2 Sat by Pulse 96 91 L Oximetry Oxygen Flow 4.50 Rate HEAD: Head is atraumatic and normocephalic. EYES: Pupils are equal round regular reactive to light accommodation. Extraocular movements are normal, there is no conjunctival pallor, and no scleral icterus. EARS: Tympanic membranes are intact external auditory canals are clear. NOSE: There is no inflammation of the nasal mucous membrane there is no deviated nasal septum. MOUTH: Mucous membranes of mouth and tongue are moist, there is no ulcers in the mouth or tongue, and no bleeding from the gums. THROAT: There is no redness of the oropharynx, no exudate seen. SKIN: There is no petechia or ecchymosis. There is no rashes or lesions. NECK: Supple. There is no JVD. Carotids are equal there is no bruit. There is no lymphadenopathy. There is no goiter. Trachea central LUNGS: There is diminished air entry and prolonged expiration. Clear to a uscultation bilaterally, no wheezes, rales, but there is diffuse rhonchi. On percussion there is hyperresonance although there is no chest wall tenderness HEART: S1 and S2 are heard. S1 is of variable intensity, there is no S3 or S4 gallops. There is a systolic murmur the left sternal border and the apex. There is no rub. ABDOMEN: Normoactive bowel sounds, soft, nontender, no masses, no rebound, no guarding. There is no hepatosplenomegaly. EXTREMITIES: Femorals are slightly diminished. There is no femoral bruits. Leg pulses are diminished. There is no pedal edema. There is no DVT or cellulitis. There is no cyanosis or clubbing. There is no calf tenderness. NEUROLOGICAL the patient is awake alert oriented 3 with no focal deficits. PSYCHIATRIC: The patient judgment and insight are intact his affect is normal. 03/24/18 03/24/18 05:50 05:50 WBC 11.1 H RBC 4.33 L Hgb 11.1 L Hct 34.7 L MCV 80 MCH 25.5 L MCHC 31.8 L RDW 19.1 H Plt Count 141 L Sodium 139.7 Potassium 3.6 Chloride 97 L Carbon Dioxide 34 H Anion Gap 9 BUN 30 H Creatinine 0.77 Est GFR (Non-Af Amer) > 60 Glucose 132 H Calcium 8.0 L Magnesium 1.8 Total Bilirubin 0.9 Direct Bilirubin 0.4 Neonat Total Bilirubin Not Reportable Neonat Direct Bilirubin Not Reportable Neonat Indirect Bili Not Reportable AST 32 ALT 82 H Alkaline Phosphatase 138 H Total Protein 5.1 L Albumin 3.1 L The patient's chest x-ray shows no acute findings. 1. Recurrence of paroxysmal atrial flutter with rapid ventricular response. The patient's heart rate is much improved now. And is on p.o. Cardizem. The Eliquis has been held for the removal of the port cath. Will be restarted once it is removed. I would prefer the patient be on a beta-raine, instead of Cardizem, will discuss with the hospitalist. 2. Acute on chronic respiratory failure with hypoxemia and hypercapnia: Patient extubated, and improving slowly. Continue respiratory treatments and antibiotics. 3. Acute exacerbation of COPD: Seems to be much improved. Continue current treatment. 4. Hypertension: Blood pressure well controlled. 5. Coronary artery disease: At present no evidence of anginal symptoms. 6. 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 7. History of diabetes mellitus type 2 insulin-dependent. Continue insulin and monitor blood sugar and adjust insulin dosage as per blood sugar. 8. Tobacco abuse: Tobacco cessation counseling given. 3 minutes spent on this. 9. Moderate pulmonary hypertension: Discussed with the patient the importance of wearing BiPAP and tobacco cessation. 10. History of sleep apnea. Intolerant to CPAP. 11. RIGHT BUNDLE BRANCH PATTERN. 12. Abnormal liver function test. Will hold the patient's simvastatin. Recheck the patient's lipid level in the a.m. MEDICATIONS reviewed. Medications adjusted. New medications ordered. Medical decision making is of high complexity. 40 minutes spent on this patient with more than 50% time spent in direct patient care. Management plan discussed with attending physician on the case. Discussed with the patient and the patient's , about the patient developing asymptomatic atrial
[2018-03-25] MEDS: GABAPENTIN 300 MG CAPSULE PO SCH ×4 (00:49→17:39)
[2018-03-25] MEDS: LEVALBUTEROL HCL NEB 1.25 MG/3 ML AMPUL NEB SCH ×4 (01:52→19:49)
[2018-03-25] MEDS: DILTIAZEM HCL 90 MG TABLET PO SCH (03:03)
[2018-03-25] MEDS: ACETYLCYSTEINE 20% SOLN 800 MG/4 ML VIAL.NEB NEB SCH ×2 (07:32→19:49)
[2018-03-25 07:40] LABS: HEMATOCRIT 29.2 % (37.9-51.0); HEMOGLOBIN 9.2 g/dL (13.5-17.0); MEAN CORPUSCULAR HEMOGLOBIN 25.6 pg (27.0-33.4); MEAN CORPUSCULAR HGB CONC 31.6 g/dL (32.0-36.0); MEAN CORPUSCULAR VOLUME 81 fl (80-97); PLATELET COUNT 104 10^3/uL (150-450); RED BLOOD COUNT 3.61 10^6/uL (4.35-5.55); RED CELL DISTRIBUTION WIDTH 19.1 % (11.5-14.0); WHITE BLOOD COUNT 11.6 10^3/uL (4.0-10.5)
[2018-03-25 07:42] LABS: ALANINE AMINOTRANSFERASE 80 U/L (21-72); ALBUMIN 3.2 g/dL (3.5-5.0); ALKALINE PHOSPHATASE 121 U/L (38-126); ANION GAP 7 (5-19); ASPARTATE AMINO TRANSFERASE 32 U/L (17-59); BILIRUBIN,DIRECT 0.5 mg/dL (0.0-0.4); BILIRUBIN,TOTAL 1.4 mg/dL (0.2-1.3); BLOOD UREA NITROGEN 22 mg/dL (7-20); CALCIUM 8.3 mg/dL (8.4-10.2); CARBON DIOXIDE 36 mmol/L (22-30); CHLORIDE 96 mmol/L (98-107); CHOLESTEROL 169.24 mg/dL (0-200); GLUCOSE 91 mg/dL (75-110); POTASSIUM 3.9 mmol/L (3.6-5.0); SODIUM 139.4 mmol/L (137-145); TRIGLYCERIDES 155 mg/dL (<150)
[2018-03-25 07:53] LABS: DIRECT LDL 118 mg/dL (<100)
[2018-03-25 07:59] LABS: ABSOLUTE LYMPHOCYTES# (MANUAL) 0.2 10^3/uL (0.5-4.7); ABSOLUTE MONOCYTES # (MANUAL) 0.3 10^3/uL (0.1-1.4); ANISOCYTOSIS 2+; BASOPHILS % (MANUAL) 0 % (0-2); EOSINOPHILS % (MANUAL) 0 % (0-6); LYMPHOCYTES % (MANUAL) 2 % (13-45); MONOCYTES % (MANUAL) 3 % (3-13); OVALOCYTES SLIGHT; PLATELET COMMENT DECREASED; POIKILOCYTOSIS SLIGHT; SEGMENTED NEUTROPHILS % (MAN) 95 % (42-78); TOTAL CELLS COUNTED 100
[2018-03-25] MEDS: INSULIN LISPRO 100 UNIT/ML 3 ML VIAL SUBCUT SCH ×7 (08:16→21:23)
[2018-03-25] MEDS: INSULIN GLARGINE,HUM.REC.ANLOG 1,000 UNIT/10 ML UNIT SUBCUT SCH (09:24)
[2018-03-25] MEDS: APIXABAN 5 MG TABLET PO SCH ×2 (09:25→21:21)
[2018-03-25] MEDS: PREDNISONE 10 MG TABLET PO SCH (09:25)
[2018-03-25] MEDS: FUROSEMIDE 20 MG TABLET PO SCH ×2 (09:25→17:39)
[2018-03-25] MEDS: METOPROLOL TARTRATE 25 MG TABLET PO SCH ×2 (09:25→21:21)
[2018-03-25] MEDS: ASPIRIN 81 MG TABLET, CHEWABLE PO SCH (09:25)
--- NOTE | 2018-03-25 11:59 | PDOC PROGRESS REPORT ---
Subjective Progress Note for:: 03/25/18 Subjective:: No acute events overnight. Patient has been off of Cardizem drip for the last 48 hours. Denies any fever, chills, nausea, vomiting, diarrhea, constipation or any urinary symptoms. Plan is to switch patient to p.o. beta-blockers and observe if A. fib is not controlled will be transferred to inpatient rehab at [facility]. Reason For Visit: CHF Physical Exam Vital Signs: Temp Pulse Resp BP Pulse Ox 98.1 F 103 H 16 146/99 H 97 03/25/18 07:33 03/25/18 07:33 03/25/18 07:33 03/25/18 07:33 03/25/18 07:33 Intake & Output 03/24/18 03/25/18 03/26/18 06:59 06:59 06:59 Intake Total 352 677 Output Total 6085 5295 Balance -1823 -0326 Weight 118.7 kg 116.8 kg General appearance: PRESENT: mild distress Head exam: PRESENT: atraumatic, normocephalic Neck exam: ABSENT: carotid bruit, JVD, lymphadenopathy, thyromegaly Respiratory exam: PRESENT: clear to auscultation ernesto. ABSENT: rales, rhonchi, wheezes Cardiovascular exam: PRESENT: irregular rhythm. ABSENT: diastolic murmur, rubs, systolic murmur GI/Abdominal exam: PRESENT: normal bowel sounds, soft. ABSENT: distended, gua rding, mass, organolmegaly, rebound, tenderness Neurological exam: PRESENT: alert, awake, oriented to person, oriented to place, oriented to time, oriented to situation, CN II-XII grossly intact. ABSENT: motor sensory deficit Results Laboratory Results: 03/25/18 06:40 03/25/18 06:40 03/25/18 03/25/18 06:40 06:40 WBC 11.6 H RBC 3.61 L Hgb 9.2 L Hct 29.2 L MCV 81 MCH 25.6 L MCHC 31.6 L RDW 19.1 H Plt Count 104 L Seg Neutrophils % Not Reportable Lymphocytes % Not Reportable Monocytes % Not Reportable Eosinophils % Not Reportable Basophils % Not Reportable Absolute Neutrophils Not Reportable Absolute Lymphocytes Not Reportable Absolute Monocytes Not Reportable Absolute Eosinophils Not Reportable Absolute Basophils Not Reportable Sodium 139.4 Potassium 3.9 Chloride 96 L Carbon Dioxide 36 H Anion Gap 7 BUN 22 H Creatinine 0.77 Est GFR ( Amer) > 60 Est GFR (Non-Af Amer) > 60 Glucose 91 Calcium 8.3 L Magnesium 1.8 Total Bilirubin 1.4 H AST 32 ALT 80 H Alkaline Phosphatase 121 Total Protein 5.0 L Albumin 3.2 L Triglycerides 155 H Cholesterol 169.24 LDL Cholesterol Direct 118 H VLDL Cholesterol 31.0 HDL Cholesterol 39 L 03/02/18 03/02/18 03/02/18 18:56 21:12 22:37 Creatine Kinase 30 L CK-MB (CK-2) Troponin I 0.029 0.034 NT-Pro-B Natriuret Pep 3470 H 03/02/18 03/03/18 03/03/18 22:37 04:24 04:24 Creatine Kinase 25 L CK-MB (CK-2) 0.92 0.82 Troponin I 0.036 0.034 NT-Pro-B Natriuret Pep 03/03/18 03/03/18 03/04/18 10:40 10:40 05:22 Creatine Kinase 24 L CK-MB (CK-2) 0.62 Troponin I 0.018 NT-Pro-B Natriuret Pep 3140 H 03/05/18 03/06/18 03/08/18 05:08 04:58 16:14 Creatine Kinase CK-MB (CK-2) Troponin I NT-Pro-B Natriuret Pep 2970 H 3340 H 7920 H 03/09/18 03/09/18 03/09/18 09:30 09:30 15:27 Creatine Kinase 49 L 39 L CK-MB (CK-2) 0.50 Troponin I 0.080 NT-Pro-B Natriuret Pep 03/09/18 03/09/18 03/09/18 15:27 22:06 22:06 Creatine Kinase 30 L CK-MB (CK-2) 0.30 < 0.22 Troponin I 0.067 0.072 NT-Pro-B Natriuret Pep 03/22/18 20:00 Creatine Kinase CK-MB (CK-2) Troponin I 0.152 NT-Pro-B Natriuret Pep Impressions: KUB X-Ray 03/09/18 14:15 IMPRESSION: Nasogastric tube tip in the stomach. Chest X-Ray 03/24/18 13:57 IMPRESSION: Cardiomegaly. No acute infiltrates Assessment & Plan - Diagnosis (1) Acute exacerbation of CHF (congestive heart failure) Qualifiers: Heart failure type: systolic Qualified Code(s): I50.23 - Acute on chronic systolic (congestive) heart failure Is this a current diagnosis for this admission?: Yes Plan: 03/03/2018. 2D echo ejection fraction 55%. BNP 03/08/2018 7920 Monitor volume status. Cardiac diet. Strict in and out. Fluid restriction. Fluid balance -1578 Weight 118.7 kg down from 143.6 kg on admission (2) Acute respiratory failure with hypoxia and hypercapnia Is this a current diagnosis for this admission?: Yes Plan: Improving. Saturating high 90s 4.5 L nasal cannula FiO2 30%. Patient was extubated on 03/16/2018. Continue treatment for underlying COPD exacerbation and CHF exacerbation. (3) COPD (chronic obstructive pulmonary disease) with emphysema Qualifiers: Emphysema type: centrilobular Qualified Code(s): J43.2 - Centrilobular emphysema Is this a current diagnosis for this admission?: Yes Plan: Continue nebs, BiPAP, DC prednisone. SBP 123-136, afebrile, heart rate 66-107, saturating high 90s on 4.5 L nasal cannula FiO2 36%. (4) Morbid obesity with alveolar hypoventilation Is this a current diagnosis for this admission?: Yes Plan: Diet and lifestyle modification. (5) Atrial fibrillation Qualifiers: Atrial fibrillation type: permanent Qualified Code(s): I48.2 - Chronic atrial fibrillation Is this a current diagnosis for this admission?: Yes Plan: Controlled. Off of Cardizem drip. Switch to p.o. metoprolol by cardiology. Has a right-sided Port-A-Cath for chemotherapy for his underlying lymphoma which was noticed on chest x-ray to be extending all the way to right atrium which may affect his rhythm. Dr. Gonsales his oncologist was called and stated that it could be removed if needed as he is done with his chemotherapy. Removed on 03/24/2018. (6) Diabetes Is this a current diagnosis for this admission?: Yes Plan: Better controlled. DC steroids. Worsened due to steroids receiving for COPD exacerbation. Continue Lantus, pre-meal, sliding scale, diabetic diet. Adjust dosage as needed. Outpatient PCP follow-up. (7) CAD (coronary artery disease) Is this a current diagnosis for this admission?: Yes Plan: Continue aspirin, beta-blockers, statin. Out patient cardiology follow-up.
[2018-03-25] MEDS: ACETAMINOPHEN 325 MG TABLET PO PRN (14:31)
[2018-03-25] MEDS ORDERED: METOPROLOL TARTRATE PF/INJ 5 MG/5 ML SDV IV ONE ×2 (19:09→21:30)
[2018-03-25] MEDS ORDERED: METOPROLOL TARTRATE PF/INJ 5 MG/5 ML SDV IV PRN (19:30)
[2018-03-26] MEDS: GABAPENTIN 300 MG CAPSULE PO SCH ×6 (00:53→23:25)
[2018-03-26] MEDS: LEVALBUTEROL HCL NEB 1.25 MG/3 ML AMPUL NEB SCH ×4 (01:29→20:14)
[2018-03-26] MEDS ORDERED: METOPROLOL TARTRATE PF/INJ 5 MG/5 ML SDV IV ONE (07:00)
[2018-03-26] MEDS: ACETYLCYSTEINE 20% SOLN 800 MG/4 ML VIAL.NEB NEB SCH ×2 (07:33→20:14)
[2018-03-26] MEDS: INSULIN LISPRO 100 UNIT/ML 3 ML VIAL SUBCUT SCH ×7 (08:36→22:40)
[2018-03-26] MEDS: INSULIN GLARGINE,HUM.REC.ANLOG 1,000 UNIT/10 ML UNIT SUBCUT SCH (10:34)
[2018-03-26] MEDS: APIXABAN 5 MG TABLET PO SCH ×2 (10:35→21:26)
[2018-03-26] MEDS: ASPIRIN 81 MG TABLET, CHEWABLE PO SCH (10:35)
[2018-03-26] MEDS: METOPROLOL TARTRATE 25 MG TABLET PO SCH ×2 (10:35→21:24)
[2018-03-26] MEDS: FUROSEMIDE 20 MG TABLET PO SCH ×2 (10:35→17:09)
[2018-03-26] MEDS ORDERED: DIGOXIN INJ 0.5 MG/2 ML AMPULE ONE (13:18)
[2018-03-26] MEDS ORDERED: DIGOXIN INJ 0.5 MG/2 ML AMPULE IV ONE (13:30)
[2018-03-26] MEDS: DILTIAZEM HCL/D5W 125 MG/125 ML RTUINJ IV PRN (13:39)
--- NOTE | 2018-03-26 13:59 | PDOC PROGRESS REPORT ---
Subjective Progress Note for:: 03/26/18 Subjective:: No acute events overnight. Unfortunately patient was discovered to be in A. fib RVR again today. Was restarted on Cardizem drip. Denies any fever, chills, nausea, vomiting, diarrhea, constipation or any urinary symptoms. Reason For Visit: CHF Physical Exam Vital Signs: Temp Pulse Resp BP Pulse Ox 97.3 F 139 H 17 123/85 98 03/26/18 07:25 03/26/18 13:43 03/26/18 07:33 03/26/18 13:43 03/26/18 07:33 Intake & Output 03/25/18 03/26/18 03/27/18 06:59 06:59 06:59 Intake Total 677 1097 Output Total 1915 9962 Balance -1578 -1855 Weight 116.8 kg 120.1 kg General appearance: PRESENT: obese Respiratory exam: PRESENT: clear to auscultation ernesto. ABSENT: rales, rhonchi, wheezes Cardiovascular exam: PRESENT: irregular rhythm, tachycardia. ABSENT: diastolic murmur, rubs, systolic murmur GI/Abdominal exam: PRESENT: normal bowel sounds, soft. ABSENT: distended, guarding, mass, organolmegaly, rebound, tenderness Extremities exam: PRESENT: full ROM. ABSENT: calf tenderness, clubbing, pedal edema Neurological exam: PRESENT: alert, awake, oriented to person, oriented to place, oriented to time, oriented to situation, CN II-XII grossly intact. ABSENT: motor sensory deficit Results Laboratory Results: 03/25/18 06:40 03/25/18 06:40 03/02/18 03/02/18 03/02/18 18:56 21:12 22:37 Creatine Kinase 30 L CK-MB (CK-2) Troponin I 0.029 0.034 NT-Pro-B Natriuret Pep 3470 H 03/02/18 03/03/18 03/03/18 22:37 04:24 04:24 Creatine Kinase 25 L CK-MB (CK-2) 0.92 0.82 Troponin I 0.036 0.034 NT-Pro-B Natriuret Pep 03/03/18 03/03/18 03/04/18 10:40 10:40 05:22 Creatine Kinase 24 L CK-MB (CK-2) 0.62 Troponin I 0.018 NT-Pro-B Natriuret Pep 3140 H 03/05/18 03/06/18 03/08/18 05:08 04:58 16:14 Creatine Kinase CK-MB (CK-2) Troponin I NT-Pro-B Natriuret Pep 2970 H 3340 H 7920 H 03/09/18 03/09/18 03/09/18 09:30 09:30 15:27 Creatine Kinase 49 L 39 L CK-MB (CK-2) 0.50 Troponin I 0.080 NT-Pro-B Natriuret Pep 03/09/18 03/09/18 03/09/18 15:27 22:06 22:06 Creatine Kinase 30 L CK-MB (CK-2) 0.30 < 0.22 Troponin I 0.067 0.072 NT-Pro-B Natriuret Pep 03/22/18 20:00 Creatine Kinase CK-MB (CK-2) Troponin I 0.152 NT-Pro-B Natriuret Pep Impressions: KUB X-Ray 03/09/18 14:15 IMPRESSION: Nasogastric tube tip in the stomach. Chest X-Ray 03/24/18 13:57 IMPRESSION: Cardiomegaly. No acute infiltrates Assessment & Plan - Diagnosis (1) Atrial fibrillation Qualifiers: Atrial fibrillation type: permanent Qualified Code(s): I48.2 - Chronic atrial fibrillation Is this a current diagnosis for this admission?: Yes Plan: Not controlled. Restarted on Cardizem drip today. Had a right-sided Port-A-Cath for chemotherapy for his underlying lymphoma which was noticed on chest x-ray to be extending all the way to right atrium which may affect his rhythm. Dr. Gonsales his oncologist was called and stated that it could be removed if needed as he is done with his chemotherapy. Removed on 03/24/2018. (2) Acute exacerbation of CHF (congestive heart failure) Qualifiers: Heart failure type: systolic Qualified Code(s): I50.23 - Acute on chronic systolic (congestive) heart failure Is this a current diagnosis for this admission?: Yes Plan: 03/03/2018. 2D echo ejection fraction 55%. BNP 03/08/2018 7920 Monitor volume status. Cardiac diet. Strict in and out. Fluid restriction. Fluid balance -1855 Weight 120.7 kg down from 143.6 kg on admission (3) Acute respiratory failure with hypoxia and hypercapnia Is this a current diagnosis for this admission?: Yes Plan: Improving. Saturating high 90s 4.5 L nasal cannula FiO2 36%. Patient was extubated on 03/16/2018. Continue treatment for underlying COPD exacerbation and CHF exacerbation. (4) COPD (chronic obstructive pulmonary disease) with emphysema Qualifiers: Emphysema type: centrilobular Qualified Code(s): J43.2 - Centrilobular emphysema Is this a current diagnosis for this admission?: Yes Plan: Continue nebs, BiPAP, DC prednisone. Received 11 days of total steroids on this admission. (5) Morbid obesity with alveolar hypoventilation Is this a current diagnosis for this admission?: Yes Plan: Diet and lifestyle modification. Continue BiPAP (6) Diabetes Is this a current diagnosis for this admission?: Yes Plan: Better controlled. DC steroids. Worsened due to steroids receiving for COPD exacerbation. Continue Lantus, pre-meal, sliding scale, diabetic diet. Adjust dosage as needed. Outpatient PCP follow-up. (7) CAD (coronary artery disease) Is this a current diagnosis for this admission?: Yes Plan: Continue aspirin, beta-blockers, statin. Out patient cardiology follow-up.
[2018-03-26] MEDS: GUAIFENESIN SYRP 200 MG/10 ML UDC PO SCH (21:24)
[2018-03-27] MEDS: LEVALBUTEROL HCL NEB 1.25 MG/3 ML AMPUL NEB SCH ×4 (01:55→19:56)
[2018-03-27] MEDS: GUAIFENESIN SYRP 200 MG/10 ML UDC PO SCH ×4 (02:16→22:34)
[2018-03-27] MEDS: GABAPENTIN 300 MG CAPSULE PO SCH ×4 (05:36→23:13)
[2018-03-27 06:03] LABS: ABSOLUTE EOSINOPHILS # (AUTO) 0.2 10^3/uL (0.0-0.6); ABSOLUTE LYMPHOCYTES (AUTO) 0.5 10^3/uL (0.5-4.7); ABSOLUTE MONOCYTES (AUTO) 0.5 10^3/uL (0.1-1.4); ABSOLUTE NEUT (AUTO) 5.5 10^3/uL (1.7-8.2); BASOPHILS % (AUTO) 0.5 % (0-2); EOSINOPHILS % (AUTO) 2.4 % (0-6); HEMATOCRIT 31.6 % (37.9-51.0); HEMOGLOBIN 10.1 g/dL (13.5-17.0); LYMPHOCYTES % (AUTO) 7.4 % (13-45); MEAN CORPUSCULAR HEMOGLOBIN 25.9 pg (27.0-33.4); MEAN CORPUSCULAR VOLUME 81 fl (80-97); MONOCYTES % (AUTO) 7.9 % (3-13); PLATELET COUNT 109 10^3/uL (150-450); SEGMENTED NEUTROPHILS % (AUTO) 81.8 % (42-78); TOTAL CELLS COUNTED % (AUTO) 100 %; WHITE BLOOD COUNT 6.7 10^3/uL (4.0-10.5)
[2018-03-27 06:30] LABS: ALANINE AMINOTRANSFERASE 75 U/L (21-72); ALBUMIN 2.8 g/dL (3.5-5.0); ALKALINE PHOSPHATASE 128 U/L (38-126); ANION GAP 7 (5-19); ASPARTATE AMINO TRANSFERASE 26 U/L (17-59); BILIRUBIN,DIRECT 0.2 mg/dL (0.0-0.4); BILIRUBIN,TOTAL 0.7 mg/dL (0.2-1.3); BLOOD UREA NITROGEN 26 mg/dL (7-20); CARBON DIOXIDE 36 mmol/L (22-30); CHLORIDE 98 mmol/L (98-107); GLUCOSE 101 mg/dL (75-110); POTASSIUM 3.7 mmol/L (3.6-5.0); SODIUM 140.5 mmol/L (137-145); TOTAL PROTEIN 4.9 g/dL (6.3-8.2)
[2018-03-27] MEDS: ACETYLCYSTEINE 20% SOLN 800 MG/4 ML VIAL.NEB NEB SCH ×2 (08:29→19:56)
[2018-03-27] MEDS: INSULIN LISPRO 100 UNIT/ML 3 ML VIAL SUBCUT SCH ×7 (08:57→22:34)
[2018-03-27] MEDS: DILTIAZEM HCL/D5W 125 MG/125 ML RTUINJ IV PRN (08:58)
[2018-03-27] MEDS: FUROSEMIDE 20 MG TABLET PO SCH ×2 (09:56→17:06)
[2018-03-27] MEDS: ASPIRIN 81 MG TABLET, CHEWABLE PO SCH (09:56)
[2018-03-27] MEDS: APIXABAN 5 MG TABLET PO SCH ×2 (09:56→22:34)
[2018-03-27] MEDS: METOPROLOL TARTRATE 25 MG TABLET PO SCH (09:56)
[2018-03-27] MEDS: INSULIN GLARGINE,HUM.REC.ANLOG 1,000 UNIT/10 ML UNIT SUBCUT SCH (09:57)
--- NOTE | 2018-03-27 10:33 | PDOC PROGRESS REPORT ---
Subjective Progress Note for:: 03/27/18 Subjective:: No acute events overnight. Still on Cardizem drip. Denies any fever, chills, nausea, vomiting, diarrhea, constipation or any urinary symptoms. Reason For Visit: CHF Physical Exam Vital Signs: Temp Pulse Resp BP Pulse Ox 97.3 F 89 20 114/45 L 100 03/27/18 04:02 03/27/18 10:00 03/27/18 07:29 03/27/18 10:00 03/27/18 07:29 Intake & Output 03/26/18 03/27/18 03/28/18 06:59 06:59 06:59 Intake Total 1097 2832 88 Output Total 2952 2350 Balance -1855 482 88 Weight 120.1 kg 120.2 kg General appearance: PRESENT: no acute distress, obese, well-developed, well- nourished Head exam: PRESENT: atraumatic, normocephalic Respiratory exam: PRESENT: clear to auscultation ernesto. ABSENT: rales, rhonchi, wheezes Cardiovascular exam: PRESENT: irregular rhythm. ABSENT: diastolic murmur, rubs, systolic murmur GI/Abdominal exam: PRESENT: normal bowel sounds, soft. ABSENT: distended, guarding, mass, organolmegaly, rebound, tenderness Extremities exam: PRESENT: full ROM. ABSENT: calf tenderness, clubbing, pedal edema Neurological exam: PRESENT: alert, awake, oriented to person, oriented to place, oriented to time, oriented to situation, CN II-XII grossly intact. ABSENT: motor sensory deficit Results Laboratory Results: 03/27/18 05:30 03/27/18 05:30 03/27/18 03/27/18 05:30 05:30 WBC 6.7 RBC 3.90 L Hgb 10.1 L Hct 31.6 L MCV 81 MCH 25.9 L MCHC 32.0 RDW 19.0 H Plt Count 109 L Seg Neutrophils % 81.8 H Lymphocytes % 7.4 L Monocytes % 7.9 Eosinophils % 2.4 Basophils % 0.5 Absolute Neutrophils 5.5 Absolute Lymphocytes 0.5 Absolute Monocytes 0.5 Absolute Eosinophils 0.2 Absolute Basophils 0.0 Sodium 140.5 Potassium 3.7 Chloride 98 Carbon Dioxide 36 H Anion Gap 7 BUN 26 H Creatinine 0.70 Est GFR ( Amer) > 60 Est GFR (Non-Af Amer) > 60 Glucose 101 Calcium 8.0 L Magnesium 1.7 Total Bilirubin 0.7 AST 26 ALT 75 H Alkaline Phosphatase 128 H Total Protein 4.9 L Albumin 2.8 L 03/02/18 03/02/18 03/02/18 18:56 21:12 22:37 Creatine Kinase 30 L CK-MB (CK-2) Troponin I 0.029 0.034 NT-Pro-B Natriuret Pep 3470 H 03/02/18 03/03/18 03/03/18 22:37 04:24 04:24 Creatine Kinase 25 L CK-MB (CK-2) 0.92 0.82 Troponin I 0.036 0.034 NT-Pro-B Natriuret Pep 03/03/18 03/03/18 03/04/18 10:40 10:40 05:22 Creatine Kinase 24 L CK-MB (CK-2) 0.62 Troponin I 0.018 NT-Pro-B Natriuret Pep 3140 H 03/05/18 03/06/18 03/08/18 05:08 04:58 16:14 Creatine Kinase CK-MB (CK-2) Troponin I NT-Pro-B Natriuret Pep 2970 H 3340 H 7920 H 03/09/18 03/09/18 03/09/18 09:30 09:30 15:27 Creatine Kinase 49 L 39 L CK-MB (CK-2) 0.50 Troponin I 0.080 NT-Pro-B Natriuret Pep 03/09/18 03/09/18 03/09/18 15:27 22:06 22:06 Creatine Kinase 30 L CK-MB (CK-2) 0.30 < 0.22 Troponin I 0.067 0.072 NT-Pro-B Natriuret Pep 03/22/18 20:00 Creatine Kinase CK-MB (CK-2) Troponin I 0.152 NT-Pro-B Natriuret Pep Impressions: KUB X-Ray 03/09/18 14:15 IMPRESSION: Nasogastric tube tip in the stomach. Chest X-Ray 03/24/18 13:57 IMPRESSION: Cardiomegaly. No acute infiltrates Assessment & Plan - Diagnosis (1) Atrial fibrillation Qualifiers: Atrial fibrillation type: permanent Qualified Code(s): I48.2 - Chronic atrial fibrillation Is this a current diagnosis for this admission?: Yes Plan: Not controlled. Restarted on Cardizem drip 03/26/2018 Had a right-sided Port-A-Cath for chemotherapy for his underlying lymphoma which was noticed on chest x-ray to be extending all the way to right atrium which may affect his rhythm. Dr. Gonsales his oncologist was called and stated that it could be removed if needed as he is done with his chemotherapy. Removed on 03/24/2018. (2) Acute exacerbation of CHF (congestive heart failure) Qualifiers: Heart failure type: systolic Qualified Code(s): I50.23 - Acute on chronic systolic (congestive) heart failure Is this a current diagnosis for this admission?: Yes Plan: 03/03/2018. 2D echo ejection fraction 55%. BNP 03/08/2018 7920 Monitor volume status. Cardiac diet. Strict in and out. Fluid restriction, p.o. diuretics Fluid balance 482 Weight 120. kg down from 143.6 kg on admission (3) Acute respiratory failure with hypoxia and hypercapnia Is this a current diagnosis for this admission?: Yes Plan: Improving. SPO2 100 on 4 L, FiO2 36% nasal cannula Patient was extubated on 03/16/2018. Continue treatment for underlying COPD exacerbation and CHF exacerbation. (4) COPD (chronic obstructive pulmonary disease) with emphysema Qualifiers: Emphysema type: centrilobular Qualified Code(s): J43.2 - Centrilobular emphysema Is this a current diagnosis for this admission?: Yes Plan: Continue nebs, BiPAP, DC prednisone. Received 11 days of total steroids on this admission. (5) Morbid obesity with alveolar hypoventilation Is this a current diagnosis for this admission?: Yes Plan: Diet and lifestyle modification. Continue BiPAP (6) Diabetes Is this a current diagnosis for this admission?: Yes Plan: Better controlled. DC steroids. Worsened due to steroids receiving for COPD exacerbation. Continue Lantus, pre-meal, sliding scale, diabetic diet. Adjust dosage as needed. Outpatient PCP follow-up. (7) CAD (coronary artery disease) Is this a current diagnosis for this admission?: Yes Plan: Continue aspirin, beta-blockers, statin. Out patient cardiology follow-up.
[2018-03-27] MEDS ORDERED: DILTIAZEM HCL/D5W 125 MG/125 ML RTUINJ IV PRN (12:11)
[2018-03-27] MEDS ORDERED: METOPROLOL TARTRATE 25 MG TABLET PO ONE (15:00)
[2018-03-27] MEDS ORDERED: NITROGLYCERIN 0.4 MG/TAB 25 TAB/BOTTLE ONE (16:10)
[2018-03-27] MEDS ORDERED: MORPHINE SULFATE 10 MG/ML INJ ONE (16:22)
[2018-03-27] MEDS ORDERED: NITROGLYCERIN 2% OINTMENT 1 GM PACKET TP ONE (17:15)
[2018-03-27] MEDS ORDERED: MORPHINE SULFATE 10 MG/ML INJ IV ONE ×2 (17:25→18:00)
[2018-03-27] MEDS ORDERED: NITROGLYCERIN 0.4 MG/TAB 25 TAB/BOTTLE SL ONE (17:30)
--- NOTE | 2018-03-27 17:54 | RADIOLOGY REPORT (SQ) ---
EXAM DESCRIPTION: CHEST SINGLE VIEW COMPLETED DATE/TIME: 03/27/2018 5:37 pm REASON FOR STUDY: chest pain COMPARISON: 03/26/2018 TECHNIQUE: Single frontal radiographic view of the chest acquired. NUMBER OF VIEWS: One view. LIMITATIONS: None. FINDINGS: LUNGS AND PLEURA: No pneumothorax. No consolidation or pleural effusion. MEDIASTINUM AND HILAR STRUCTURES: Stable. HEART AND VASCULAR STRUCTURES: Stable. BONES: No acute findings. HARDWARE: Stable left IJ central venous catheter, tip overlying the SVC. OTHER: No other significant finding. IMPRESSION: NO ACUTE FINDINGS. TECHNICAL DOCUMENTATION: JOB ID: [id number] [id number] 2010 [employer]- All Rights Reserved Reading location - IP/workstation name: [email or web address]
[2018-03-27] MEDS ORDERED: GUAIFENESIN SYRP 200 MG/10 ML UDC PO SCH (20:00)
--- NOTE | 2018-03-27 20:09 | EKG REPORT ---
SEVERITY:- ABNORMAL ECG - ATRIAL FIBRILLATION, V-RATE 82-123 RIGHT BUNDLE BRANCH BLOCK INFERIOR INFARCT, POSSIBLY ACUTE ANTERIOR INFARCT, AGE INDETERMINATE : Confirmed by: Harjinder Pierce 27-Mar-2018 20:08:47
[2018-03-27] MEDS ORDERED: METOPROLOL SUCCINATE 25 MG TAB.SR.24H PO SCH (22:00)
[2018-03-27] MEDS: METOPROLOL SUCCINATE 50 MG TAB.SR.24H PO SCH (22:34)
--- NOTE | 2018-03-27 23:05 | Progress Note ---
Provider Note Provider Note: Cardiology PROGRESS NOTE by Dr. Corina Moura on 03/27/2018. SUBJECTIVE: The patient continues to be atrial fibrillation. But the heart rate is well controlled. He denies any chest pain or discomfort. There is patient is lying down flat without complaints of orthopnea. There is no PND or or palpitations or near syncope or syncope. He denies any chest pain. There is no cough or sputum production. There is no bleeding on Eliquis. There is no TIA CVA symptoms. PHYSICAL EXAMINATION: The patient is moderate to morbidly obese. He is well- groomed in no acute distress. Selected Entries 03/27/18 03/27/18 03/27/18 10:00 11:00 11:53 Temperature 99.0 F Temperature Oral Source Pulse Rate 95 Respiratory 18 Rate Blood Pressure 142/75 H Blood Pressure 97 Mean O2 Sat by Pulse 94 Oximetry Oxygen Delivery Nasal Cannula Method ( includes room air) Oxygen Flow 4 4.50 Rate Oxygen Delivery Nasal Cannula Method HEAD: Head is atraumatic and normocephalic. EYES: Pupils are equal round regular reactive to light accommodation. Extraocular movements are normal, there is no conjunctival pallor, and no scleral icterus. EARS: Tympanic membranes are intact external auditory canals are clear. NOSE: There is no inflammation of the nasal mucous membrane there is no deviated nasal septum. MOUTH: Mucous membranes of mouth and tongue are moist, there is no ulcers in the mouth or tongue, and no bleeding from the gums. THROAT: There is no redness of the oropharynx, no exudate seen. SKIN: There is no petechia or ecchymosis. There is no rashes or lesions. NECK: Supple. There is no JVD. Carotids are equal there is no bruit. There is no lymphadenopathy. There is no goiter. Trachea central LUNGS: There is diminished air entry and prolonged expiration. Clear to auscultation bilaterally, no wheezes, rales, but there is diffuse rhonchi. On percussion there is hyperresonance although there is no chest wall tenderness HEART: S1 and S2 are heard. S1 is of variable intensity, there is no S3 or S4 gallops. There is a systolic murmur the left sternal border and the apex. There is no rub. ABDOMEN: Normoactive bowel sounds, soft, nontender, no masses, no rebound, no guarding. There is no hepatosplenomegaly. EXTREMITIES: Femorals are slightly diminished. There is no femoral bruits. Leg pulses are diminished. There is no pedal edema. There is no DVT or cellulitis. There is no cyanosis or clubbing. There is no calf tenderness. NEUROLOGICAL the patient is awake alert oriented 3 with no focal deficits. PSYCHIATRIC: The patient judgment and insight are intact his affect is normal. 03/27/18 03/27/18 05:30 05:30 WBC 6.7 RBC 3.90 L Hgb 10.1 L Hct 31.6 L MCV 81 MCHC 32.0 Plt Count 109 L Sodium 140.5 Potassium 3.7 Chloride 98 Carbon Dioxide 36 H Anion Gap 7 BUN 26 H Creatinine 0.70 Est GFR (Non-Af Amer) > 60 Glucose 101 Calcium 8.0 L Magnesium 1.7 Total Bilirubin 0.7 Direct Bilirubin 0.2 Neonat Total Bilirubin Not Reportable Neonat Direct Bilirubin Not Reportable Neonat Indirect Bili Not Reportable AST 26 ALT 75 H Alkaline Phosphatase 128 H Total Protein 4.9 L Albumin 2.8 L EKG shows atrial fibrillation. Right bundle branch block pattern left anterior fascicular block. IMPRESSION/RECOMMENDATION: 1. Recurrence of paroxysmal atrial flutter/fibrillation with rapid ventricular response. At present the heart rate is controlled. We will decrease the patient's IV Cardizem drip, and start the patient on metoprolol at 50 mg p.o. every 12 hours and increase as tolerated. Continue Eliquis. 2. Acute on chronic respiratory failure with hypoxemia and hypercapnia: Patient extubated, and improving slowly. Continue respiratory treatments and antibiotics. 3. Acute exacerbation of COPD: Seems to be much improved. Continue current treatment. 4. Hypertension: Blood pressure well controlled. 5. Coronary artery disease: At present no evidence of anginal symptoms. 6. 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 7. History of diabetes mellitus type 2 insulin-dependent. Continue insulin and monitor blood sugar and adjust insulin dosage as per blood sugar. 8. Tobacco abuse: Tobacco cessation counseling given. 3 minutes spent on this. 9. Moderate pulmonary hypertension: Discussed with the patient the importance of wearing BiPAP and tobacco cessation. 10. History of sleep apnea. Intolerant to CPAP. 11. RIGHT BUNDLE BRANCH PATTERN. With left axis deviation, with left anterior fascicular block. Medications reviewed. Medications adjusted. Management plan discussed with attending physician on the case. Medical decision making is still of high complexity in view of the persistence of atrial fibrillation with rapid ventricular response. The heart rate is been difficult to control. 40 minutes spent on this patient with more than 50% of time spent in direct patient care. We will follow with you.
[2018-03-27] MEDS ORDERED: LOSARTAN POTASSIUM 25 MG TABLET PO ONE (23:20)
[2018-03-28] MEDS: LEVALBUTEROL HCL NEB 1.25 MG/3 ML AMPUL NEB SCH ×4 (01:12→20:32)
[2018-03-28] MEDS: GUAIFENESIN SYRP 200 MG/10 ML UDC PO SCH ×4 (02:10→21:56)
[2018-03-28] MEDS: GABAPENTIN 300 MG CAPSULE PO SCH ×3 (06:39→17:39)
[2018-03-28] MEDS: ACETYLCYSTEINE 20% SOLN 800 MG/4 ML VIAL.NEB NEB SCH ×2 (08:24→20:32)
[2018-03-28] MEDS: INSULIN LISPRO 100 UNIT/ML 3 ML VIAL SUBCUT SCH ×7 (09:26→21:57)
[2018-03-28] MEDS: INSULIN GLARGINE,HUM.REC.ANLOG 1,000 UNIT/10 ML UNIT SUBCUT SCH (09:31)
[2018-03-28] MEDS: APIXABAN 5 MG TABLET PO SCH ×2 (09:32→21:57)
[2018-03-28] MEDS: ASPIRIN 81 MG TABLET, CHEWABLE PO SCH (09:32)
[2018-03-28] MEDS: METOPROLOL SUCCINATE 50 MG TAB.SR.24H PO SCH ×2 (09:32→21:57)
[2018-03-28] MEDS: LOSARTAN POTASSIUM 25 MG TABLET PO SCH ×2 (10:47→21:57)
--- NOTE | 2018-03-28 11:07 | PDOC PROGRESS REPORT ---
Subjective Progress Note for:: 03/28/18 Subjective:: No acute events overnight. Of Cardizem drip, switched to p.o. metoprolol. Denies any fever, chills, nausea, vomiting, diarrhea, constipation or any urinary symptoms. Reason For Visit: CHF Physical Exam Vital Signs: Temp Pulse Resp BP Pulse Ox 98.4 F 90 17 104/37 L 95 03/28/18 07:26 03/28/18 09:36 03/28/18 08:24 03/28/18 09:36 03/28/18 08:24 Intake & Output 03/27/18 03/28/18 03/29/18 06:59 06:59 06:59 Intake Total 2832 105 Output Total 2350 2800 Balance 482 -3225 Weight 120.2 kg 120.5 kg General appearance: PRESENT: no acute distress, well-developed, well-nourished Head exam: PRESENT: atraumatic, normocephalic Neck exam: ABSENT: carotid bruit, JVD, lymphadenopathy, thyromegaly Respiratory exam: PRESENT: clear to auscultation ern[place], decreased breath sounds. ABSENT: rales, rhonchi, wheezes Cardiovascular exam: PRESENT: RRR. ABSENT: diastolic murmur, rubs, systolic murmur GI/Abdominal exam: PRESENT: normal bowel sounds, soft. ABSENT: distended, guarding, mass, organolmegaly, rebound, tenderness Extremities exam: PRESENT: full ROM. ABSENT: calf tenderness, clubbing, pedal edema Results Laboratory Results: 03/27/18 05:30 03/27/18 05:30 03/02/18 03/02/18 03/02/18 18:56 21:12 22:37 Creatine Kinase 30 L CK-MB (CK-2) Troponin I 0.029 0.034 NT-Pro-B Natriuret Pep 3470 H 03/02/18 03/03/18 03/03/18 22:37 04:24 04:24 Creatine Kinase 25 L CK-MB (CK-2) 0.92 0.82 Troponin I 0.036 0.034 NT-Pro-B Natriuret Pep 03/03/18 03/03/18 03/04/18 10:40 10:40 05:22 Creatine Kinase 24 L CK-MB (CK-2) 0.62 Troponin I 0.018 NT-Pro-B Natriuret Pep 3140 H 03/05/18 03/06/18 03/08/18 05:08 04:58 16:14 Creatine Kinase CK-MB (CK-2) Troponin I NT-Pro-B Natriuret Pep 2970 H 3340 H 7920 H 03/09/18 03/09/18 03/09/18 09:30 09:30 15:27 Creatine Kinase 49 L 39 L CK-MB (CK-2) 0.50 Troponin I 0.080 NT-Pro-B Natriuret Pep 03/09/18 03/09/18 03/09/18 15:27 22:06 22:06 Creatine Kinase 30 L CK-MB (CK-2) 0.30 < 0.22 Troponin I 0.067 0.072 NT-Pro-B Natriuret Pep 03/22/18 20:00 Creatine Kinase CK-MB (CK-2) Troponin I 0.152 NT-Pro-B Natriuret Pep Impressions: KUB X-Ray 03/09/18 14:15 IMPRESSION: Nasogastric tube tip in the stomach. Chest X-Ray 03/27/18 00:00 IMPRESSION: NO ACUTE FINDINGS. Assessment & Plan - Diagnosis (1) Atrial fibrillation Qualifiers: Atrial fibrillation type: permanent Qualified Code(s): I48.2 - Chronic atrial fibrillation Is this a current diagnosis for this admission?: Yes Plan: Controlled. Restarted on Cardizem drip 03/26/2018 turned off 03/28/2018. Currently on metoprolol 50 mg p.o. twice daily. Continue monitoring titrate up as tolerated. Had a right-sided Port-A-Cath for chemotherapy for his underlying lymphoma which was noticed on chest x-ray to be extending all the way to right atrium which may affect his rhythm. Dr. Gonsales his oncologist was called and stated that it could be removed if needed as he is done with his chemotherapy. Removed on 03/24/2018. (2) Acute exacerbation of CHF (congestive heart failure) Qualifiers: Heart failure type: systolic Qualified Code(s): I50.23 - Acute on chronic systolic (congestive) heart failure Is this a current diagnosis for this admission?: Yes Plan: Improving. SPO2 95% on 4 L FiO2 36%. Improving. 03/03/2018. 2D echo ejection fraction 55%. BNP 03/08/2018 7920 Monitor volume status. Cardiac diet. Strict in and out. Fluid restriction, p.o. diuretics Fluid balance 482 Weight 120. kg down from 143.6 kg on admission (3) Acute respiratory failure with hypoxia and hypercapnia Is this a current diagnosis for this admission?: Yes Plan: Improving. SPO2 95% on 4 L FiO2 36%. Patient was extubated on 03/16/2018. Continue treatment for underlying COPD exacerbation and CHF exacerbation. (4) COPD (chronic obstructive pulmonary disease) with emphysema Qualifiers: Emphysema type: centrilobular Qualified Code(s): J43.2 - Centrilobular emphysema Is this a current diagnosis for this admission?: Yes Plan: Continue nebs, BiPAP, DC prednisone. Received 11 days of total steroids on this admission. (5) Morbid obesity with alveolar hypoventilation Is this a current diagnosis for this admission?: Yes Plan: Diet and lifestyle modification. Continue BiPAP (6) Diabetes Is this a current diagnosis for this admission?: Yes Plan: Controlled since being off of steroids. Worsened due to steroids receiving for COPD exacerbation. Continue Lantus, pre-meal, sliding scale, diabetic diet. Adjust dosage as needed. Outpatient PCP follow-up. (7) CAD (coronary artery disease) Is this a current diagnosis for this admission?: Yes Plan: Continue aspirin, beta-blockers, statin. Out patient cardiology follow-up.
--- NOTE | 2018-03-28 21:38 | Progress Note ---
Provider Note Provider Note: CARDIOLOGY PROGRESS NOTE by Dr. Corina Moura on 03/28/2018. Subjective: The patient continues to be in atrial fibrillation, but the heart rate is well controlled hence we will stop the patient's IV Cardizem. Note that the patient's beta-raine has been increased. The patient denies any chest pain or discomfort. Yesterday he had a brief episode of chest pain which is noncardiac. He states is that he took a deep breath and the heart rate was relieved with morphine and not nitroglycerin. He has not had any recurrence of that. He denies any shortness of breath. There is no cough or sputum production. There is no PND orthopnea. There is no leg edema. There is no bleeding on Eliquis. There is no TIA CVA symptoms. PHYSICAL EXAMINATION: The patient is moderate to morbidly obese. In no acute distress. He is well-groomed. Selected Entries 03/28/18 03/28/18 03/28/18 07:26 08:00 08:24 Temperature 98.4 F Temperature Axillary Source Pulse Rate 94 87 Respiratory 20 17 Rate Blood Pressure 106/65 97/78 L Blood Pressure 78 Mean BP Location Right Arm BP Position Supine O2 Sat by Pulse 94 95 Oximetry Oxygen Delivery Nasal Cannula Method ( includes room air) Oxygen Flow 4 Rate Oxygen Delivery Nasal Cannula Method 03/28/18 09:00 Temperature Temperature Source Pulse Rate 87 Respiratory Rate Blood Pressure 114/55 L Blood Pressure Mean BP Location BP Position O2 Sat by Pulse Oximetry Oxygen Delivery Method ( includes room air) Oxygen Flow Rate Oxygen Delivery Method HEAD: Head is atraumatic and normocephalic. EYES: Pupils are equal round re gular reactive to light accommodation. Extraocular movements are normal, there is no conjunctival pallor, and no scleral icterus. EARS: Tympanic membranes are intact external auditory canals are clear. NOSE: There is no inflammation of the nasal mucous membrane there is no deviated nasal septum. MOUTH: Mucous membranes of mouth and tongue are moist, there is no ulcers in the mouth or tongue, and no bleeding from the gums. THROAT: There is no redness of the oropharynx, no exudate seen. SKIN: There is no petechia or ecchymosis. There is no rashes or lesions. NECK: Supple. There is no JVD. Carotids are equal there is no bruit. There is no lymphadenopathy. There is no goiter. Trachea central LUNGS: There is diminished air entry and prolonged expiration. Clear to auscultation bilaterally, no wheezes, rales, but there is diffuse rhonchi. On percussion there is hyperresonance although there is no chest wall tenderness HEART: S1 and S2 are heard. S1 is of variable intensity, there is no S3 or S4 gallops. There is a systolic murmur the left sternal border and the apex. There is no rub. ABDOMEN: Normoactive bowel sounds, soft, nontender, no masses, no rebound, no guarding. There is no hepatosplenomegaly. EXTREMITIES: Femorals are slightly diminished. There is no femoral bruits. Leg pulses are diminished. There is no pedal edema. There is no DVT or cellulitis. There is no cyanosis or clubbing. There is no calf tenderness. NEUROLOGICAL the patient is awake alert oriented 3 with no focal deficits. PSYCHIATRIC: The patient judgment and insight are intact his affect is normal. 03/28/18 03/28/18 05:59 11:16 POC Glucose 110 189 H IMPRESSION/RECOMMENDATION: 1. Recurrence of paroxysmal atrial flutter/fibrillation with rapid ventricular response. At present the heart rate is controlled. Will stop the patient's IV Cardizem drip, and continue the patient on metoprolol at 50 mg p.o. every 12 hours. Continue Eliquis. 2. Acute on chronic respiratory failure with hypoxemia and hypercapnia: This is resolved 3. Acute exacerbation of COPD: This is resolved. Continue current treatment. 4. Hypertension: Blood pressure well controlled. 5. Coronary artery disease: At present no evidence of anginal symptoms. 6. 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 7. History of diabetes mellitus type 2 insulin-dependent. Continue insulin and monitor blood sugar and adjust insulin dosage as per blood sugar. 8. Tobacco abuse: Tobacco cessation counseling given. 3 minutes spent on this. 9. Moderate pulmonary hypertension: Discussed with the patient the importance of wearing BiPAP and tobacco cessation. 10. History of sleep apnea. Intolerant to CPAP. 11. RIGHT BUNDLE BRANCH PATTERN. With left axis deviation, with left anterior fascicular block. Medications reviewed, and medications adjusted. Management plan discussed with the attending physician on the case. Discussed the management plan with the patient patient's . Hopefully the patient can be discharged to the intermediate facility tomorrow. Medical decision making is now moderate complexity. Note 40 minutes spent on this patient more than 50% of time spent in direct patient care.
[2018-03-29] MEDS: GABAPENTIN 300 MG CAPSULE PO SCH ×5 (00:36→23:21)
[2018-03-29] MEDS: LEVALBUTEROL HCL NEB 1.25 MG/3 ML AMPUL NEB SCH ×4 (01:39→19:51)
[2018-03-29] MEDS: GUAIFENESIN SYRP 200 MG/10 ML UDC PO SCH ×4 (02:20→23:21)
[2018-03-29] MEDS: FUROSEMIDE 20 MG TABLET PO SCH ×2 (04:39→09:18)
[2018-03-29] MEDS ORDERED: DIGOXIN INJ 0.5 MG/2 ML AMPULE IV ONE ×2 (05:00→08:30)
[2018-03-29 06:51] LABS: ABSOLUTE EOSINOPHILS # (AUTO) 0.2 10^3/uL (0.0-0.6); ABSOLUTE LYMPHOCYTES (AUTO) 0.7 10^3/uL (0.5-4.7); ABSOLUTE MONOCYTES (AUTO) 0.5 10^3/uL (0.1-1.4); ABSOLUTE NEUT (AUTO) 6.6 10^3/uL (1.7-8.2); BASOPHILS % (AUTO) 0.4 % (0-2); EOSINOPHILS % (AUTO) 2.2 % (0-6); HEMATOCRIT 28.8 % (37.9-51.0); HEMOGLOBIN 9.4 g/dL (13.5-17.0); LYMPHOCYTES % (AUTO) 8.3 % (13-45); MEAN CORPUSCULAR HEMOGLOBIN 26.3 pg (27.0-33.4); MEAN CORPUSCULAR HGB CONC 32.5 g/dL (32.0-36.0); MEAN CORPUSCULAR VOLUME 81 fl (80-97); MONOCYTES % (AUTO) 6.8 % (3-13); PLATELET COUNT 106 10^3/uL (150-450); RED BLOOD COUNT 3.57 10^6/uL (4.35-5.55); RED CELL DISTRIBUTION WIDTH 19.3 % (11.5-14.0); SEGMENTED NEUTROPHILS % (AUTO) 82.3 % (42-78); TOTAL CELLS COUNTED % (AUTO) 100 %
[2018-03-29 07:07] LABS: ALANINE AMINOTRANSFERASE 58 U/L (21-72); ALBUMIN 2.9 g/dL (3.5-5.0); ALKALINE PHOSPHATASE 123 U/L (38-126); ANION GAP 6 (5-19); ASPARTATE AMINO TRANSFERASE 20 U/L (17-59); BILIRUBIN,DIRECT 0.3 mg/dL (0.0-0.4); BILIRUBIN,TOTAL 0.8 mg/dL (0.2-1.3); BLOOD UREA NITROGEN 36 mg/dL (7-20); CARBON DIOXIDE 34 mmol/L (22-30); CHLORIDE 93 mmol/L (98-107); GLUCOSE 107 mg/dL (75-110); POTASSIUM 4.5 mmol/L (3.6-5.0); SODIUM 132.6 mmol/L (137-145); TOTAL PROTEIN 4.7 g/dL (6.3-8.2)
[2018-03-29] MEDS: ACETYLCYSTEINE 20% SOLN 800 MG/4 ML VIAL.NEB NEB SCH ×2 (07:31→19:51)
[2018-03-29] MEDS: INSULIN LISPRO 100 UNIT/ML 3 ML VIAL SUBCUT SCH ×7 (08:05→23:22)
--- NOTE | 2018-03-29 08:47 | RADIOLOGY REPORT (SQ) ---
EXAM DESCRIPTION: CHEST SINGLE VIEW COMPLETED DATE/TIME: 03/29/2018 8:14 am REASON FOR STUDY: heart rate 130s COMPARISON: 03/27/2018 EXAM PARAMETERS: NUMBER OF VIEWS: One view. TECHNIQUE: Single frontal radiographic view of the chest acquired. RADIATION DOSE: NA LIMITATIONS: None. FINDINGS: LUNGS AND PLEURA: No opacities, masses or pneumothorax. No pleural effusion. MEDIASTINUM AND HILAR STRUCTURES: No masses. Contour normal. HEART AND VASCULAR STRUCTURES: Unchanged cardiomegaly. BONES: No acute findings. HARDWARE: None in the chest. OTHER: Left neck vascular catheter. IMPRESSION: Unchanged cardiomegaly without acute abnormality of the lungs. No new airspace opacity. TECHNICAL DOCUMENTATION: JOB ID: [id number] [email or web address]- All Rights Reserved Reading location - IP/workstation name: [email or web address]
[2018-03-29] MEDS: ASPIRIN 81 MG TABLET, CHEWABLE PO SCH (09:07)
[2018-03-29] MEDS: APIXABAN 5 MG TABLET PO SCH ×2 (09:08→23:21)
[2018-03-29] MEDS: INSULIN GLARGINE,HUM.REC.ANLOG 1,000 UNIT/10 ML UNIT SUBCUT SCH (09:09)
[2018-03-29] MEDS: METOPROLOL SUCCINATE 50 MG TAB.SR.24H PO SCH ×2 (09:18→23:21)
[2018-03-29] MEDS: LOSARTAN POTASSIUM 25 MG TABLET PO SCH ×3 (09:18→23:40)
--- NOTE | 2018-03-29 11:45 | Progress Note ---
Provider Note Provider Note: CARDIOLOGY PROGRESS NOTE by Dr. Corina Moura on 03/29/2009. SUBJECTIVE:. The patient denies any chest pain or discomfort. Earlier his heart rate was slightly elevated. He continues to be in atrial fibrillation. At present heart rate much improved on current medications, including digoxin 0.125 mg given IV push x1 earlier today. He denies any chest pain or discomfort. There is no shortness of breath. There is no cough or wheezing. There is no PND orthopnea. There is no leg edema. There is no ventricular arrhythmia seen on the monitor. The patient continues to be in atrial fibrillation. There is no bleeding on Eliquis. There is no TIA CVA symptoms. PHYSICAL EXAMINATION: The patient is moderate to morbidly obese. He is well- groomed. He is in no acute distress. Selected Entries 03/29/18 07:14 Temperature 98.0 F Temperature Oral Source Pulse Rate 99 Respiratory 17 Rate Blood Pressure 103/46 L Blood Pressure 65 Mean BP Location Right Arm BP Position Supine O2 Sat by Pulse 96 Oximetry Oxygen Flow 3.50 Rate Oxygen Delivery Nasal Cannula Method HEAD: Head is atraumatic and normocephalic. EYES: Pupils are equal round regular reactive to light accommodation. Extraocular movements are normal, there is no conjunctival pallor, and no scleral icterus. EARS: Tympanic membranes are intact external auditory canals are clear. NOSE: There is no inflammation of the nasal mucous membrane there is no deviated nasal septum. MOUTH: Mucous membranes of mouth and tongue are moist, there is no ulcers in the mouth or tongue, and no bleeding from the gums. THROAT: There is no redness of the oropharynx, no exudate seen. SKIN: There is no petechia or ecchymosis. There is no rashes or lesions. NECK: Supple. There is no JVD. Carotids are equal there is no bruit. There is no lymphadenopathy. There is no goiter. Trachea central LUNGS: There is diminished air entry and prolonged expiration. Clear to auscultation bilaterally, no wheezes, rales, but there is diffuse rhonchi. On percussion there is hyperresonance although there is no chest wall tenderness HEART: S1 and S2 are heard. S1 is of variable intensity, there is no S3 or S4 gallops. There is a systolic murmur the left sternal border and the apex. There is no rub. ABDOMEN: Normoactive bowel sounds, soft, nontender, no masses, no rebound, no guarding. There is no hepatosplenomegaly. EXTREMITIES: Femorals are slightly diminished. There is no femoral bruits. Leg pulses are diminished. There is no pedal edema. There is no DVT or cellulitis. There is no cyanosis or clubbing. There is no calf tenderness. NEUROLOGICAL the patient is awake alert oriented 3 with no focal deficits. PSYCHIATRIC: The patient judgment and insight are intact his affect is normal. 03/29/18 03/29/18 05:30 08:00 Sodium 132.6 L Potassium 4.5 Chloride 93 L Carbon Dioxide 34 H BUN 36 H Creatinine 0.88 Est GFR (Non-Af Amer) > 60 Glucose 107 Calcium 8.0 L Magnesium 1.7 Total Bilirubin 0.8 Direct Bilirubin 0.3 Neonat Total Bilirubin Not Reportable Neonat Direct Bilirubin Not Reportable Neonat Indirect Bili Not Reportable AST 20 ALT 58 Alkaline Phosphatase 123 Troponin I 0.053 Total Protein 4.7 L Albumin 2.9 L CHEST X-ray: Shows cardiomegaly with no acute pathology. IMPRESSION/RECOMMENDATION: 1. Persistent atrial flutter/fibrillation with rapid ventricular response. At present the heart rate is controlled. Continue the patient on metoprolol at 50 mg p.o. every 12 hours. Continue Eliquis. Will add digoxin 0.25 mg p.o. daily. 2. Acute on chronic respiratory failure with hypoxemia and hypercapnia: This is resolved 3. Acute exacerbation of COPD: This is resolved. Continue current treatment. 4. Hypertension: Blood pressure well controlled. 5. Coronary artery disease: At present no evidence of anginal symptoms. 6. 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 7. History of diabetes mellitus type 2 insulin-dependent. Continue insulin and monitor blood sugar and adjust insulin dosage as per blood sugar. 8. Tobacco abuse: Tobacco cessation counseling given. 3 minutes spent on this. 9. Moderate pulmonary hypertension: Discussed with the patient the importance of wearing BiPAP and tobacco cessation. 10. History of sleep apnea. Intolerant to CPAP. 11. RIGHT BUNDLE BRANCH PATTERN. With left axis deviation, with left anterior fascicular block. Medications reviewed. Medications adjusted. Management plan discussed with the attending physician on the case. Patient stable. Patient being discharged to rehab facility. Will sign off. Thanking you. Medical decision making is of moderate complexity. Note new medications have been added. 40 minutes spent on this patient more than 50% of time spent in direct patient care.
--- NOTE | 2018-03-29 12:24 | PDOC TRANSFER SUMMARY ---
General Admission Date/PCP: 03/03/18 10:21 COSMO GUILLEN MD Resuscitation Status: Full Code - Transfer Diagnosis (1) Atrial fibrillation Is this a current diagnosis for this admission?: Yes (2) Acute exacerbation of CHF (congestive heart failure) Is this a current diagnosis for this admission?: Yes (3) Acute respiratory failure with hypoxia and hypercapnia Is this a current diagnosis for this admission?: Yes (4) COPD (chronic obstructive pulmonary disease) with emphysema Is this a current diagnosis for this admission?: Yes (5) Morbid obesity with alveolar hypoventilation Is this a current diagnosis for this admission?: Yes (6) Diabetes Is this a current diagnosis for this admission?: Yes (7) CAD (coronary artery disease) Is this a current diagnosis for this admission?: Yes - Transfer Medications Home Medications: Albuterol Sulfate [Proair HFA Inhalation Aerosol 8.5 gm MDI] 2 puff IH Q4HP PRN 03/03/18 Aspirin [Adult Low Dose Aspirin EC] 81 mg PO DAILY 03/03/18 Budesonide/Formoterol Fumarate [Symbicort HFA 160-4.5 mcg Inhaler 6 gm] 2 puff IH BID 03/03/18 Gabapentin [Neurontin] 600 mg PO Q6 03/03/18 Oxycodone HCl [Oxycontin] 15 mg PO Q8 03/03/18 Simvastatin [Zocor 20 mg Tablet] 20 mg PO QHS 03/03/18 Tiotropium [place] [Spiriva Respimat] 2 puff IH DAILY 03/03/18 Transfer Medications: Current Medications Acetaminophen (Tylenol 325 Mg Tablet) 650 mg PO Q4HP PRN PRN Reason: pain or temp greater than 101F Stop: 04/01/18 22:09 Last Admin: 03/25/18 14:31 Dose: 650 mg Documented by: Acetylcysteine (Mucomist 20% Soln 800 Mg/4 Ml) 600 mg NEB RTBID EMIL Stop: 04/19/18 19:59 Last Admin: 03/29/18 07:31 Dose: 600 mg Documented by: Al Hydrox/Mg Hydrox/Simethicone (Maalox Plus Susp 30 Udcup) 30 ml PO Q4HP PRN PRN Reason: HEARTBURN Stop: 04/01/18 22:09 Apixaban (Eliquis 5 Mg Tablet) 5 mg PO Q12 EMIL Stop: 04/16/18 09:59 Last Admin: 03/29/18 09:08 Dose: 5 mg Documented by: Aspirin (Aspirin 81 Mg Chewable Tablet) 81 mg PO DAILY EMIL Stop: 04/09/18 09:59 Last Admin: 03/29/18 09:07 Dose: 81 mg Documented by: Dextrose (Dextrose Inj 50% Syringe (25 Gm/50 Ml)) 12.5 gm IV PRN PRN; Protocol PRN Reason: FOR BG 50-69 IN ALERT PATIENT Stop: 04/01/18 22:12 Dextrose (Dextrose Inj 50% Syringe (25 Gm/50 Ml)) 25 gm IV PRN PRN; Protocol PRN Reason: PER PROTOCOL Stop: 04/01/18 22:12 Digoxin (Lanoxin 0.25 Mg Tablet) 0.25 mg PO DAILY [facility] Stop: 04/29/18 09:59 Furosemide (Lasix 20 Mg Tablet) 20 mg PO DAILY [facility] Stop: 04/28/18 09:59 Last Admin: 03/29/18 09:18 Dose: 20 mg Documented by: Gabapentin (Neurontin 300 Mg Capsule) 600 mg PO Q6 EMIL Stop: 04/11/18 00:00 Last Admin: 03/29/18 06:20 Dose: 600 mg Documented by: Glucagon (Glucagen Inj 1 Mg Vial) 1 mg IM PRN PRN; Protocol PRN Reason: Evaluate for BG < 70 Stop: 04/01/18 22:12 Glucose (Glutose 40% Gel 15 Gm Tube) 15 gm PO PRN PRN; Protocol PRN Reason: FOR BG 50-69 IN ALERT PATIENT Stop: 04/01/18 22:12 Glucose (Glutose 40% Gel 15 Gm Tube) 30 gm PO PRN PRN; Protocol PRN Reason: FOR BG < 50 IN ALERT PATIENT Stop: 04/01/18 22:12 Guaifenesin (Robitussin Syrup 200 Mg/10 Ml Ud Cup) 200 mg PO Q6A [facility] Stop: 04/25/18 21:29 Last Admin: 03/29/18 09:07 Dose: 200 mg Documented by: Heparin Sodium (Porcine) (Heparin Flush 10 Unit/Ml 5 Ml Disp.Syrg) 30 unit IV Q8 EMIL Stop: 04/08/18 21:59 Last Admin: 03/29/18 06:20 Dose: 30 unit Documented by: Influenza Virus Vaccine Quadrival (Fluarix Adlt Quad Vac 0.5 Ml Syr) 0.5 ml IM .DISCHARGE PRN PRN Reason: THIS MED IS NOT "PRN" Stop: 04/23/18 11:10 Insulin Glargine (Lantus Insulin 100 Unit/1 Ml 10 Ml) 35 unit SUBCUT QAM [facility] Stop: 04/22/18 08:59 Last Admin: 03/29/18 09:09 Dose: 35 unit Documented by: Insulin Human Lispro (Humalog Insulin 100 Unit/1 Ml 3 Ml Vial) 0 - 12 unit SUBCUT ACHS [facility]; Protocol Stop: 04/01/18 10:59 Last Admin: 03/29/18 08:05 Dose: Not Given Documented by: Insulin Human Lispro (Humalog Insulin 100 Unit/1 Ml 3 Ml Vial) 10 unit SUBCUT AC [facility]; Protocol Stop: 04/25/18 15:59 Last Admin: 03/29/18 09:01 Dose: Not Given Documented by: Levalbuterol HCl (Xopenex Neb 1.25 Mg/3 Ml Ampul) 1.25 mg NEB RTQ6 [facility] Stop: 04/08/18 13:59 Last Admin: 03/29/18 07:31 Dose: 1.25 mg Documented by: Levalbuterol HCl (Xopenex Neb 0.63 Mg/3 Ml Ampul) 0.63 mg NEB RTQ4HP PRN PRN Reason: SOB/WHEEZING Stop: 04/08/18 09:38 Losartan Potassium (Cozaar 25 Mg Tablet) 25 mg PO Q12 [facility] Stop: 04/27/18 09:59 Last Admin: 03/29/18 09:18 Dose: 25 mg Documented by: Magnesium Hydroxide (Milk Of Magnesia 30 Ml Udcup) 30 ml PO HSP PRN PRN Reason: FOR CONSTIPATION Stop: 04/01/18 22:09 Metoprolol Succinate (Toprol Xl 50 Mg Tab.Sr) 50 mg PO Q12 [facility] Stop: 04/26/18 21:59 Last Admin: 03/29/18 09:18 Dose: 50 mg Documented by: Sodium Chloride (Saline Flush 2.5 Ml Monoject Prefil Syrin) 2.5 ml IV Q8 [facility] Stop: 04/02/18 05:59 Last Admin: 03/29/18 06:20 Dose: Not Given Documented by: Sodium Chloride (Nacl 0.9% Inj/Pf 10 Ml Sdv) 10 ml IV .AFTER EACH USE PRN PRN Reason: AFTER EACH INTERMITTENT USE Stop: 04/08/18 14:12 - Allergies Allergies/Adverse Reactions: No Known Allergies Allergy (Verified 01/20/17 12:59) - Diet/Activity Discharge Diet: Cardiac, Diabetic Hospital Course Hospital Course: THEODORE SON is a 67 year old male with a past medical history of congestive heart failure, oxygen dependent COPD with ongoing tobacco smoking, obstructive sleep apnea, morbid obesity, opiate dependent chronic pain and insulin dependent diabetes. Patient was seen by his helmet coverer Dr. Berry earlier in the day and found to have concerning weight gain with leg swelling. He is referred to the emergency department for evaluation where he is found to have +2 edema in the lower extremity bilaterally, orthopnea and a BNP of 3470. He receives IV Lasix and referred to the hospitalist for admission. Patient denies recent change in medications, diet indiscretion, palpitations or chest pain. He admits to CPAP compliance but continued tobacco smoking. (1) Atrial fibrillation Difficult to control. Patient had to be restarted on Cardizem drip several times by Dr. Moura helmet coverer as he was going in and out of uncontrolled A. fib RVR. Patient was switched to p.o. Cardizem with not good response but eventually was switched to p.o. metoprolol 50 mg p.o. twice daily and digoxin 0.25 daily. He will need frequent BMPs to check for his electrolyte levels as he is started on digoxin. Follow with Dr. Moura as outpatient for further management and medication consultation for underlying A. fib. Had a right-sided Port-A-Cath for chemotherapy for his underlying lymphoma which was noticed on chest x-ray to be extending all the way to right atrium which may affect his rhythm. Dr. Gonsales his oncologist was called and stated that it could be removed if needed as he is done with his chemotherapy. Removed on 03/24/2018. (2) Acute exacerbation of CHF (congestive heart failure) Improved. Euvolemic. Start on cardiac diet, fluid restriction, p.o. Lasix. His Lasix needs to be adjusted based on his volume status if needed. 03/03/2018. 2D echo ejection fraction 55%. BNP 03/08/2018 7920 Weight 120.5 kg down from 143.6 kg on admission (3) Acute respiratory failure with hypoxia and hypercapnia Improved. 95-97% 3.5 L nasal cannula Was intubated for respiratory failure and successfully extubated on 03/16/2018. Continue nebs, supplemental oxygen. Outpatient pulmonary follow-up. (4) COPD (chronic obstructive pulmonary disease) with emphysema Was started on nebs, supplemental oxygen, BiPAP, received 11 days of total steroids on this admission. Continue pro-air, Symbicort, supplemental oxygen. (5) Morbid obesity with alveolar hypoventilation Diet and lifestyle modification. Continue BiPAP (6) Diabetes Well-controlled. Initially insulin dosage had to be titrated up due to persistent hyperglycemia caused by IV steroids. Was titrated down after blood glucose levels were better controlled. Continue Lantus, pre-meal, sliding scale, diabetic diet. Adjust dosage as neede d. Outpatient PCP follow-up. (7) CAD (coronary artery disease) Continue aspirin, beta-blockers, statin. Out patient cardiology follow-up. Physical Exam Vital Signs: Temp Pulse Resp BP Pulse Ox 97.3 F 91 17 98/37 L 95 03/29/18 11:27 03/29/18 11:27 03/29/18 11:27 03/29/18 11:27 03/29/18 11:27 Intake & Output 03/28/18 03/29/18 03/30/18 06:59 06:59 06:59 Intake Total 105 61 Output Total 2800 2024 Balance -2694 Weight 120.5 kg 122.2 kg General appearance: PRESENT: no acute distress, well-developed, well-nourished Head exam: PRESENT: atraumatic, normocephalic Neck exam: ABSENT: carotid bruit, JVD, lymphadenopathy, thyromegaly Respiratory exam: PRESENT: clear to auscultation [place]. ABSENT: rales, rhonchi, wheezes Cardiovascular exam: PRESENT: RRR. ABSENT: diastolic murmur, rubs, systolic murmur Vascular exam: PRESENT: normal capillary refill GI/Abdominal exam: PRESENT: normal bowel sounds, soft. ABSENT: distended, guarding, mass, organolmegaly, rebound, tenderness Extremities exam: PRESENT: full ROM. ABSENT: calf tenderness, clubbing, pedal edema Neurological exam: PRESENT: alert, awake, oriented to person, oriented to place, oriented to time, oriented to situation, CN II-XII grossly intact. ABSENT: motor sensory deficit Results Laboratory Results: 03/29/18 05:30 03/29/18 05:30 03/29/18 03/29/18 05:30 05:30 WBC 8.0 RBC 3.57 L Hgb 9.4 L Hct 28.8 L MCV 81 MCH 26.3 L MCHC 32.5 RDW 19.3 H Plt Count 106 L Seg Neutrophils % 82.3 H Lymphocytes % 8.3 L Monocytes % 6.8 Eosinophils % 2.2 Basophils % 0.4 Absolute Neutrophils 6.6 Absolute Lymphocytes 0.7 Absolute Monocytes 0.5 Absolute Eosinophils 0.2 Absolute Basophils 0.0 Sodium 132.6 L Potassium 4.5 Chloride 93 L Carbon Dioxide 34 H Anion Gap 6 BUN 36 H Creatinine 0.88 Est GFR ( Amer) > 60 Est GFR (Non-Af Amer) > 60 Glucose 107 Calcium 8.0 L Magnesium 1.7 Total Bilirubin 0.8 AST 20 ALT 58 Alkaline Phosphatase 123 Total Protein 4.7 L Albumin 2.9 L 03/02/18 03/02/18 03/02/18 18:56 21:12 22:37 Creatine Kinase 30 L CK-MB (CK-2) Troponin I 0.029 0.034 NT-Pro-B Natriuret Pep 3470 H 03/02/18 03/03/18 03/03/18 22:37 04:24 04:24 Creatine Kinase 25 L CK-MB (CK-2) 0.92 0.82 Troponin I 0.036 0.034 NT-Pro-B Natriuret Pep 03/03/18 03/03/18 03/04/18 10:40 10:40 05:22 Creatine Kinase 24 L CK-MB (CK-2) 0.62 Troponin I 0.018 NT-Pro-B Natriuret Pep 3140 H 03/05/18 03/06/18 03/08/18 05:08 04:58 16:14 Creatine Kinase CK-MB (CK-2) Troponin I NT-Pro-B Natriuret Pep 2970 H 3340 H 7920 H 03/09/18 03/09/18 03/09/18 09:30 09:30 15:27 Creatine Kinase 49 L 39 L CK-MB (CK-2) 0.50 Troponin I 0.080 NT-Pro-B Natriuret Pep 03/09/18 03/09/18 03/09/18 15:27 22:06 22:06 Creatine Kinase 30 L CK-MB (CK-2) 0.30 < 0.22 Troponin I 0.067 0.072 NT-Pro-B Natriuret Pep 03/22/18 03/29/18 20:00 08:00 Creatine Kinase CK-MB (CK-2) Troponin I 0.152 0.053 NT-Pro-B Natriuret Pep Impressions: KUB X-Ray 03/09/18 14:15 IMPRESSION: Nasogastric tube tip in the stomach. Chest X-Ray 03/29/18 00:00 IMPRESSION: Unchanged cardiomegaly without acute abnormality of the lungs. No new airspace opacity.
[2018-03-29] MEDS ORDERED: METOPROLOL TARTRATE PF/INJ 5 MG/5 ML SDV IV ONE (16:15)
--- NOTE | 2018-03-29 19:23 | PDOC PROGRESS REPORT ---
Subjective Progress Note for:: 03/29/18 Subjective:: No acute events overnight. Of Cardizem drip, switched to p.o. metoprolol. Denies any fever, chills, nausea, vomiting, diarrhea, constipation or any urinary symptoms. Was discharged to be transferred to SNF, but was cancelled because of no room availability. He can be discharged tomorrow. Reason For Visit: CHF Physical Exam Vital Signs: Temp Pulse Resp BP Pulse Ox 98.2 F 53 L 17 116/68 97 03/29/18 15:23 03/29/18 15:23 03/29/18 15:23 03/29/18 15:23 03/29/18 15:23 Intake & Output 03/28/18 03/29/18 03/30/18 06:59 06:59 06:59 Intake Total 105 61 907 Output Total 2800 8 475 Balance -850 -5075 432 Weight 120.5 kg 122.2 kg General appearance: PRESENT: no acute distress, well-developed, well-nourished Head exam: PRESENT: atraumatic, normocephalic Neck exam: ABSENT: carotid bruit, JVD, lymphadenopathy, thyromegaly Respiratory exam: PRESENT: clear to auscultation [place]. ABSENT: rales, rhonchi, wheezes Cardiovascular exam: PRESENT: RRR. ABSENT: diastolic murmur, rubs, systolic murmur GI/Abdominal exam: PRESENT: normal bowel sounds, soft. ABSENT: distended, guarding, mass, organolmegaly, rebound, tenderness Extremities exam: PRESENT: full ROM. ABSENT: calf tenderness, clubbing, pedal edema Neurological exam: PRESENT: alert, awake, oriented to person, oriented to place, oriented to time, oriented to situation, CN II-XII grossly intact. ABSENT: motor sensory deficit Results Laboratory Results: 03/29/18 05:30 03/29/18 05:30 03/29/18 03/29/18 05:30 05:30 WBC 8.0 RBC 3.57 L Hgb 9.4 L Hct 28.8 L MCV 81 MCH 26.3 L MCHC 32.5 RDW 19.3 H Plt Count 106 L Seg Neutrophils % 82.3 H Lymphocytes % 8.3 L Monocytes % 6.8 Eosinophils % 2.2 Basophils % 0.4 Absolute Neutrophils 6.6 Absolute Lymphocytes 0.7 Absolute Monocytes 0.5 Absolute Eosinophils 0.2 Absolute Basophils 0.0 Sodium 132.6 L Potassium 4.5 Chloride 93 L Carbon Dioxide 34 H Anion Gap 6 BUN 36 H Creatinine 0.88 Est GFR ( Amer) > 60 Est GFR (Non-Af Amer) > 60 Glucose 107 Calcium 8.0 L Magnesium 1.7 Total Bilirubin 0.8 AST 20 ALT 58 Alkaline Phosphatase 123 Total Protein 4.7 L Albumin 2.9 L 03/02/18 03/02/18 03/02/18 18:56 21:12 22:37 Creatine Kinase 30 L CK-MB (CK-2) Troponin I 0.029 0.034 NT-Pro-B Natriuret Pep 3470 H 03/02/18 03/03/18 03/03/18 22:37 04:24 04:24 Creatine Kinase 25 L CK-MB (CK-2) 0.92 0.82 Troponin I 0.036 0.034 NT-Pro-B Natriuret Pep 03/03/18 03/03/18 03/04/18 10:40 10:40 05:22 Creatine Kinase 24 L CK-MB (CK-2) 0.62 Troponin I 0.018 NT-Pro-B Natriuret Pep 3140 H 03/05/18 03/06/18 03/08/18 05:08 04:58 16:14 Creatine Kinase CK-MB (CK-2) Troponin I NT-Pro-B Natriuret Pep 2970 H 3340 H 7920 H 03/09/18 03/09/18 03/09/18 09:30 09:30 15:27 Creatine Kinase 49 L 39 L CK-MB (CK-2) 0.50 Troponin I 0.080 NT-Pro-B Natriuret Pep 03/09/18 03/09/18 03/09/18 15:27 22:06 22:06 Creatine Kinase 30 L CK-MB (CK-2) 0.30 < 0.22 Troponin I 0.067 0.072 NT-Pro-B Natriuret Pep 03/22/18 03/29/18 20:00 08:00 Creatine Kinase CK-MB (CK-2) Troponin I 0.152 0.053 NT-Pro-B Natriuret Pep Impressions: KUB X-Ray 03/09/18 14:15 IMPRESSION: Nasogastric tube tip in the stomach. Chest X-Ray 03/29/18 00:00 IMPRESSION: Unchanged cardiomegaly without acute abnormality of the lungs. No new airspace opacity. Assessment & Plan - Diagnosis (1) Atrial fibrillation Qualifiers: Atrial fibrillation type: permanent Qualified Code(s): I48.2 - Chronic atrial fibrillation Is this a current diagnosis for this admission?: Yes Plan: Controlled. Restarted on Cardizem drip 03/26/2018 turned off 03/28/2018. Felix ekrn on metoprolol 50 mg p.o. twice daily. Continue monitoring titrate up as tolerated. Had a right-sided Port-A-Cath for chemotherapy for his underlying lymphoma which was noticed on chest x-ray to be extending all the way to right atrium which may affect his rhythm. Dr. Gonsales his oncologist was called and stated that it could be removed if needed as he is done with his chemotherapy. Removed on 03/24/2018. (2) Acute exacerbation of CHF (congestive heart failure) Qualifiers: Heart failure type: systolic Qualified Code(s): I50.23 - Acute on chronic systolic (congestive) heart failure Is this a current diagnosis for this admission?: Yes Plan: Improving. SPO2 95% on 4 L FiO2 36%. Improving. 03/03/2018. 2D echo ejection fraction 55%. BNP 03/08/2018 7920 Monitor volume status. Cardiac diet. Strict in and out. Fluid restriction, p.o. diuretics Fluid balance 482 Weight 120. kg down from 143.6 kg on admission (3) Acute respiratory failure with hypoxia and hypercapnia Is this a current diagnosis for this admission?: Yes Plan: Improving. SPO2 95% on 4 L FiO2 36%. Patient was extubated on 03/16/2018. Continue treatment for underlying COPD exacerbation and CHF exacerbation. (4) COPD (chronic obstructive pulmonary disease) with emphysema Qualifiers: Emphysema type: centrilobular Qualified Code(s): J43.2 - Centrilobular emphysema Is this a current diagnosis for this admission?: Yes Plan: Continue nebs, BiPAP, DC prednisone. Received 11 days of total steroids on this admission. (5) Morbid obesity with alveolar hypoventilation Is this a current diagnosis for this admission?: Yes Plan: Diet and lifestyle modification. Continue BiPAP (6) Diabetes Is this a current diagnosis for this admission?: Yes Plan: Controlled since being off of steroids. Worsened due to steroids receiving for COPD exacerbation. Continue Lantus, pre-meal, sliding scale, diabetic diet. Adjust dosage as needed. Outpatient PCP follow-up. (7) CAD (coronary artery disease) Is this a current diagnosis for this admission?: Yes Plan: Continue aspirin, beta-blockers, statin. Out patient cardiology follow-up.
--- NOTE | 2018-03-29 23:22 | EKG REPORT ---
SEVERITY:- ABNORMAL ECG - ATRIAL FIBRILLATION RIGHT BUNDLE BRANCH BLOCK : Confirmed by: Corina Moura MD 29-Mar-2018 23:21:20
[2018-03-30] MEDS: LEVALBUTEROL HCL NEB 1.25 MG/3 ML AMPUL NEB SCH ×3 (01:54→13:23)
[2018-03-30] MEDS: GUAIFENESIN SYRP 200 MG/10 ML UDC PO SCH ×2 (03:15→09:12)
[2018-03-30] MEDS ORDERED: DILTIAZEM HCL INJ 25 MG/5 ML VIAL ONE (03:26)
[2018-03-30] MEDS ORDERED: DILTIAZEM HCL/D5W 125 MG/125 ML RTUINJ IV PRN (03:52)
[2018-03-30] MEDS ORDERED: DILTIAZEM HCL INJ 25 MG/5 ML VIAL IV ONE (04:30)
[2018-03-30] MEDS: GABAPENTIN 300 MG CAPSULE PO SCH ×2 (05:51→12:21)
[2018-03-30] MEDS: ACETYLCYSTEINE 20% SOLN 800 MG/4 ML VIAL.NEB NEB SCH (07:45)
[2018-03-30] MEDS: LOSARTAN POTASSIUM 25 MG TABLET PO SCH (09:09)
--- NOTE | 2018-03-30 09:09 | PDOC TRANSFER SUMMARY ---
General Admission Date/PCP: 03/03/18 10:21 COSMO GUILLEN MD Resuscitation Status: Full Code - Transfer Diagnosis (1) Uncontrolled atrial fibrillation Is this a current diagnosis for this admission?: Yes (2) Tachy-leo syndrome Is this a current diagnosis for this admission?: Yes - Transfer Medications Home Medications: Albuterol Sulfate [Proair HFA Inhalation Aerosol 8.5 gm MDI] 2 puff IH Q4HP PRN 03/03/18 Aspirin [Adult Low Dose Aspirin EC] 81 mg PO DAILY 03/03/18 Budesonide/Formoterol Fumarate [Symbicort HFA 160-4.5 mcg Inhaler 6 gm] 2 puff IH BID 03/03/18 Gabapentin [Neurontin] 600 mg PO Q6 03/03/18 Oxycodone HCl [Oxycontin] 15 mg PO Q8 03/03/18 Simvastatin [Zocor 20 mg Tablet] 20 mg PO QHS 03/03/18 Tiotropium [place] [Spiriva Respimat] 2 puff IH DAILY 03/03/18 Transfer Medications: Current Medications Acetaminophen (Tylenol 325 Mg Tablet) 650 mg PO Q4HP PRN PRN Reason: pain or temp greater than 101F Stop: 04/01/18 22:09 Last Admin: 03/25/18 14:31 Dose: 650 mg Documented by: Acetylcysteine (Mucomist 20% Soln 800 Mg/4 Ml) 600 mg NEB RTBID [facility] Stop: 04/19/18 19:59 Last Admin: 03/30/18 07:45 Dose: 600 mg Documented by: Al Hydrox/Mg Hydrox/Simethicone (Maalox Plus Susp 30 Udcup) 30 ml PO Q4HP PRN PRN Reason: HEARTBURN Stop: 04/01/18 22:09 Apixaban (Eliquis 5 Mg Tablet) 5 mg PO Q12 [facility] Stop: 04/16/18 09:59 Last Admin: 03/29/18 23:21 Dose: 5 mg Documented by: Aspirin (Aspirin 81 Mg Chewable Tablet) 81 mg PO DAILY [facility] Stop: 04/09/18 09:59 Last Admin: 03/29/18 09:07 Dose: 81 mg Documented by: Dextrose (Dextrose Inj 50% Syringe (25 Gm/50 Ml)) 12.5 gm IV PRN PRN; Protocol PRN Reason: FOR BG 50-69 IN ALERT PATIENT Stop: 04/01/18 22:12 Dextrose (Dextrose Inj 50% Syringe (25 Gm/50 Ml)) 25 gm IV PRN PRN; Protocol PRN Reason: PER PROTOCOL Stop: 04/01/18 22:12 Digoxin (Lanoxin 0.25 Mg Tablet) 0.25 mg PO DAILY [facility] Stop: 04/29/18 09:59 Furosemide (Lasix 20 Mg Tablet) 20 mg PO DAILY [facility] Stop: 04/28/18 09:59 Last Admin: 03/29/18 09:18 Dose: 20 mg Documented by: Gabapentin (Neurontin 300 Mg Capsule) 600 mg PO Q6 [facility] Stop: 04/11/18 00:00 Last Admin: 03/30/18 05:51 Dose: 600 mg Documented by: Glucagon (Glucagen Inj 1 Mg Vial) 1 mg IM PRN PRN; Protocol PRN Reason: Evaluate for BG < 70 Stop: 04/01/18 22:12 Glucose (Glutose 40% Gel 15 Gm Tube) 15 gm PO PRN PRN; Protocol PRN Reason: FOR BG 50-69 IN ALERT PATIENT Stop: 04/01/18 22:12 Glucose (Glutose 40% Gel 15 Gm Tube) 30 gm PO PRN PRN; Protocol PRN Reason: FOR BG < 50 IN ALERT PATIENT Stop: 04/01/18 22:12 Guaifenesin (Robitussin Syrup 200 Mg/10 Ml Ud Cup) 200 mg PO Q6A [facility] Stop: 04/25/18 21:29 Last Admin: 03/30/18 03:15 Dose: Not Given Documented by: Heparin Sodium (Porcine) (Heparin Flush 10 Unit/Ml 5 Ml Disp.Syrg) 30 unit IV Q8 [facility] Stop: 04/08/18 21:59 Last Admin: 03/30/18 05:50 Dose: 30 unit Documented by: Diltiazem HCl (Cardizem Rtu Inj 125 Mg-D5w 125 Ml Premix) 125 mg in 125 mls @ 0 mls/hr IV CONTINUOUS PRN; Protocol PRN Reason: THIS MED IS NOT "PRN" Stop: 04/29/18 03:51 Last Titration: 03/30/18 06:00 Dose: 15 mls/hr, 15 mls/hr Documented by: Influenza Virus Vaccine Quadrival (Fluarix Adlt Quad Vac 0.5 Ml Syr) 0.5 ml IM .DISCHARGE PRN PRN Reason: THIS MED IS NOT "PRN" Stop: 04/23/18 11:10 Insulin Glargine (Lantus Insulin 100 Unit/1 Ml 10 Ml) 35 unit SUBCUT QAM [facility] Stop: 04/22/18 08:59 Last Admin: 03/29/18 09:09 Dose: 35 unit Documented by: Insulin Human Lispro (Humalog Insulin 100 Unit/1 Ml 3 Ml Vial) 0 - 12 unit SUBCUT ACHS [facility]; Protocol Stop: 04/01/18 10:59 Last Admin: 03/29/18 23:22 Dose: 4 unit Documented by: Insulin Human Lispro (Humalog Insulin 100 Unit/1 Ml 3 Ml Vial) 10 unit SUBCUT AC [facility]; Protocol Stop: 04/25/18 15:59 Last Admin: 03/29/18 16:40 Dose: 10 unit Documented by: Levalbuterol HCl (Xopenex Neb 1.25 Mg/3 Ml Ampul) 1.25 mg NEB RTQ6 [facility] Stop: 04/08/18 13:59 Last Admin: 03/30/18 07:45 Dose: 1.25 mg Documented by: Levalbuterol HCl (Xopenex Neb 0.63 Mg/3 Ml Ampul) 0.63 mg NEB RTQ4HP PRN PRN Reason: SOB/WHEEZING Stop: 04/08/18 09:38 Losartan Potassium (Cozaar 25 Mg Tablet) 25 mg PO Q12 [facility] Stop: 04/27/18 09:59 Last Admin: 03/29/18 23:40 Dose: Not Given Documented by: Magnesium Hydroxide (Milk Of Magnesia 30 Ml Udcup) 30 ml PO HSP PRN PRN Reason: FOR CONSTIPATION Stop: 04/01/18 22:09 Metoprolol Succinate (Toprol Xl 50 Mg Tab.Sr) 50 mg PO Q12 [facility] Stop: 04/26/18 21:59 Last Admin: 03/29/18 23:21 Dose: 50 mg Documented by: Sodium Chloride (Saline Flush 2.5 Ml Monoject Prefil Syrin) 2.5 ml IV Q8 [facility] Stop: 04/02/18 05:59 Last Admin: 03/30/18 05:51 Dose: Not Given Documented by: Sodium Chloride (Nacl 0.9% Inj/Pf 10 Ml Sdv) 10 ml IV .AFTER EACH USE PRN PRN Reason: AFTER EACH INTERMITTENT USE Stop: 04/08/18 14:12 - Allergies Allergies/Adverse Reactions: No Known Allergies Allergy (Verified 01/20/17 12:59) - Diet/Activity Discharge Diet: Cardiac, Diabetic Hospital Course Hospital Course: This is a 67 year old male with a past medical history of congestive heart failure, lymphoma, oxygen dependent COPD with ongoing tobacco smoking, obstructive sleep apnea, morbid obesity, CAD, opiate dependent chronic pain and paroxysmal atrial fibrillation and insulin dependent diabetes who was initially admitted for CHF exacerbation. Patient was seen by his janitor cleaner Dr. Berry ([facility]) on day of admission and found to have concerning weight gain with leg swelling. He is referred to the emergency department for e valuation where he is found to have +2 edema in the lower extremity bilaterally, orthopnea and a BNP of 3470. He was started on IV Lasix. He has been going on and off AFib with RVR. He developed respiratory distress multifactorial from CHF and COPD exacerbation and eventually was intubated on 03/08/18. He was successfully extubated on 03/16/18. He was initially on cardizem drip. He was continued on PO lopressor and Eliquis. He was also started on PO digoxin. TSH was normal. Echo showed EF of 55%. He did improve clinically but keeps on going in and out of AFib despite medication adjustment. He has been on and off cardizem. Yesterday afternoon, he went into Afib with RVR again and had to be resumed on cardizem drip. He did have episodes of bradycardia during this hospital course even off the cardizem drip and may possibly have leo-tachy syndrome. Cardio recommends transfer to tertiary [facility] for possible cardioversion and EP evaluation. Family prefers to go to [facility]. Discussed with Dr. Drake (cardiology at [facility]) who accepted the transfer. Physical Exam Vital Signs: Temp Pulse Resp BP Pulse Ox 98.3 F 76 14 90/52 L 92 03/30/18 07:20 03/30/18 07:20 03/30/18 07:20 03/30/18 07:20 03/30/18 07:20 Intake & Output 03/29/18 03/30/18 03/31/18 06:59 06:59 06:59 Intake Total 61 916 Output Total 2024 1000 Balance -1963 Weight 269 lb 6.478 oz 282 lb 6.594 oz General appearance: PRESENT: no acute distress, obese Head exam: PRESENT: atraumatic, normocephalic Eye exam: PRESENT: conjunctiva pink, EOMI, PERRLA. ABSENT: scleral icterus Ear exam: PRESENT: normal external ear exam Mouth exam: PRESENT: moist, tongue midline Neck exam: ABSENT: carotid bruit, JVD, lymphadenopathy, thyromegaly Respiratory exam: PRESENT: clear to auscultation [place]. ABSENT: rales, rhonchi, wheezes Cardiovascular exam: PRESENT: irregular rhythm. ABSENT: diastolic murmur, rubs, systolic murmur Pulses: PRESENT: normal dorsalis pedis pul GI/Abdominal exam: PRESENT: normal bowel sounds, soft. ABSENT: distended, guarding, mass, organolmegaly, rebound, tenderness Rectal exam: PRESENT: deferred Extremities exam: PRESENT: full ROM. ABSENT: calf tenderness, clubbing, pedal edema Neurological exam: PRESENT: alert, awake, oriented to person, oriented to place, oriented to time, oriented to situation, CN II-XII grossly intact. ABSENT: motor sensory deficit Results Laboratory Results: 03/29/18 05:30 03/29/18 05:30 03/02/18 03/02/18 03/02/18 18:56 21:12 22:37 Creatine Kinase 30 L CK-MB (CK-2) Troponin I 0.029 0.034 NT-Pro-B Natriuret Pep 3470 H 03/02/18 03/03/18 03/03/18 22:37 04:24 04:24 Creatine Kinase 25 L CK-MB (CK-2) 0.92 0.82 Troponin I 0.036 0.034 NT-Pro-B Natriuret Pep 03/03/18 03/03/18 03/04/18 10:40 10:40 05:22 Creatine Kinase 24 L CK-MB (CK-2) 0.62 Troponin I 0.018 NT-Pro-B Natriuret Pep 3140 H 03/05/18 03/06/18 03/08/18 05:08 04:58 16:14 Creatine Kinase CK-MB (CK-2) Troponin I NT-Pro-B Natriuret Pep 2970 H 3340 H 7920 H 03/09/18 03/09/18 03/09/18 09:30 09:30 15:27 Creatine Kinase 49 L 39 L CK-MB (CK-2) 0.50 Troponin I 0.080 NT-Pro-B Natriuret Pep 03/09/18 03/09/18 03/09/18 15:27 22:06 22:06 Creatine Kinase 30 L CK-MB (CK-2) 0.30 < 0.22 Troponin I 0.067 0.072 NT-Pro-B Natriuret Pep 03/22/18 03/29/18 20:00 08:00 Creatine Kinase CK-MB (CK-2) Troponin I 0.152 0.053 NT-Pro-B Natriuret Pep Impressions: KUB X-Ray 03/09/18 14:15 IMPRESSION: Nasogastric tube tip in the stomach. Chest X-Ray 03/29/18 00:00 IMPRESSION: Unchanged cardiomegaly without acute abnormality of the lungs. No new airspace opacity.
[2018-03-30] MEDS: METOPROLOL SUCCINATE 50 MG TAB.SR.24H PO SCH (09:10)
[2018-03-30] MEDS: APIXABAN 5 MG TABLET PO SCH (09:12)
[2018-03-30] MEDS: FUROSEMIDE 20 MG TABLET PO SCH (09:12)
[2018-03-30] MEDS: ASPIRIN 81 MG TABLET, CHEWABLE PO SCH (09:12)
[2018-03-30] MEDS: INSULIN LISPRO 100 UNIT/ML 3 ML VIAL SUBCUT SCH ×4 (09:13→12:22)
[2018-03-30] MEDS: INSULIN GLARGINE,HUM.REC.ANLOG 1,000 UNIT/10 ML UNIT SUBCUT SCH (09:13)
[2018-03-30] MEDS ORDERED: DIGOXIN INJ 0.5 MG/2 ML AMPULE IV ONE (10:00)
[2018-03-30] MEDS ORDERED: DIGOXIN 0.25 MG TABLET PO SCH (10:00)
[2018-03-30 17:59] VITALS: BP 96/73
== END 2018-03-30 14:09 | disposition short-term general hospital (02) | DRG 291 ==
LOC: ER 16:39 → INTOOBSV 22:27 → EH 22:27 → 3S 03-03 02:21 → OBSVTOIN 03-03 10:21 → ICU 03-08 12:15 → 3N 03-19 13:46 → 4S 03-30 02:50 → 3N 03-30 03:49
PROVIDERS: ADMIT Internal Medicine; ATTEND Internal Medicine
PROC: 02HV33Z Insertion of Infusion Device into Superior Vena Cava, Percutaneous Approach (ICD-10-PCS; 2018-03-09)
PROC: B548ZZA Ultrasonography of Superior Vena Cava, Guidance (ICD-10-PCS; 2018-03-09)
PROC: 0BH17EZ Insertion of Endotracheal Airway into Trachea, Via Natural or Artificial Opening (ICD-10-PCS; 2018-03-09)
PROC: 5A1945Z Respiratory Ventilation, 24-96 Consecutive Hours (ICD-10-PCS; 2018-03-09)
PROC: 02HV33Z Insertion of Infusion Device into Superior Vena Cava, Percutaneous Approach (ICD-10-PCS; 2018-03-22)
PROC: 0JPT0WZ Removal of Totally Implantable Vascular Access Device from Trunk Subcutaneous Tissue and Fascia, Open Approach (ICD-10-PCS; principal; 2018-03-24 13:15)
DX: I11.0 Hypertensive heart disease with heart failure (principal); J96.22 Acute and chronic respiratory failure with hypercapnia; J96.21 Acute and chronic respiratory failure with hypoxia; F11.20 Opioid dependence, uncomplicated; J44.1 Chronic obstructive pulmonary disease with (acute) exacerbation; E66.2 Morbid (severe) obesity with alveolar hypoventilation; N39.0 Urinary tract infection, site not specified; Z68.41 Body mass index [BMI] 40.0-44.9, adult; I50.23 Acute on chronic systolic (congestive) heart failure; I25.5 Ischemic cardiomyopathy; R31.9 Hematuria, unspecified; I48.2 Chronic atrial fibrillation; E11.9 Type 2 diabetes mellitus without complications; G89.29 Other chronic pain; I49.5 Sick sinus syndrome; I27.20 Pulmonary hypertension, unspecified; G47.33 Obstructive sleep apnea (adult) (pediatric); E78.5 Hyperlipidemia, unspecified; I25.10 Atherosclerotic heart disease of native coronary artery without angina pectoris; M19.90 Unspecified osteoarthritis, unspecified site; Z79.4 Long term (current) use of insulin; Z79.82 Long term (current) use of aspirin; Z79.899 Other long term (current) drug therapy; Z99.81 Dependence on supplemental oxygen; Z85.72 Personal history of non-Hodgkin lymphomas; Z87.891 Personal history of nicotine dependence; Z78.1 Physical restraint status
CPT/HCPCS: 00400; 31500; 36415; 36600; 51702; 71045; 74018; 80048; 80053; 80061; 80069; 80162; 81001; 82140; 82550; 82553; 82803; 82962; 83605; 83735; 83880; 84100; 84443; 84478; 84484; 85025; 85027; 85610; 85730; 86592; 87070; 87077; 87086; 87186; 87205; 87493; 93005; 93010; 93306; 94002; 94003; 94640; 94660; 94799; 96365; 96375; 99285; C1751; G0378; J0330; J0696; J1160; J1642; J1644; J1815; J1885; J1940; J2185; J2250; J2270; J2310; J2405; J2543; J2704; J2920; J3480; J3490; J7030; J7040; J7512; J7620; S0164

== ENCOUNTER 2018-04-08 21:29 | Inpatient (IN) | payer MEDICARE, BC ==
--- NOTE | 2018-04-08 22:00 | RADIOLOGY REPORT (SQ) ---
EXAM DESCRIPTION: XR CHEST 1 VIEW COMPLETED DATE/TME: 04/08/2018 21:32 CLINICAL HISTORY: 67 years, Male, DIFFICULTY BREATHING COMPARISON: 03/29/2018 chest x-ray NUMBER OF VIEWS: 1 TECHNIQUE: Contrast LIMITATIONS: None. FINDINGS: Cardiomegaly. Mild pulmonary vascular congestion with suspected small bibasilar effusions. No pneumothorax IMPRESSION: Cardiomegaly with mild pulmonary vascular congestion and suspected small bibasilar effusions copyright 2010 [employer]- All Rights Reserved
[2018-04-08 22:11] LABS: VENOUS BLOOD BASE EXCESS 12.9 mmol/L; VENOUS BLOOD HCO3 39.5 mmol/L (20-32); VENOUS BLOOD PH 7.39 (7.30-7.42)
[2018-04-08 22:12] LABS: ABSOLUTE EOSINOPHILS # (AUTO) 0.1 10^3/uL (0.0-0.6); ABSOLUTE LYMPHOCYTES (AUTO) 0.3 10^3/uL (0.5-4.7); ABSOLUTE MONOCYTES (AUTO) 0.6 10^3/uL (0.1-1.4); ABSOLUTE NEUT (AUTO) 3.1 10^3/uL (1.7-8.2); BASOPHILS % (AUTO) 0.2 % (0-2); EOSINOPHILS % (AUTO) 2.5 % (0-6); HEMATOCRIT 25.5 % (37.9-51.0); HEMOGLOBIN 8.2 g/dL (13.5-17.0); LYMPHOCYTES % (AUTO) 8.5 % (13-45); MEAN CORPUSCULAR HEMOGLOBIN 26.4 pg (27.0-33.4); MEAN CORPUSCULAR HGB CONC 32.1 g/dL (32.0-36.0); MEAN CORPUSCULAR VOLUME 82 fl (80-97); MONOCYTES % (AUTO) 13.8 % (3-13); PLATELET COUNT 166 10^3/uL (150-450); RED CELL DISTRIBUTION WIDTH 21.1 % (11.5-14.0); TOTAL CELLS COUNTED % (AUTO) 100 %; WHITE BLOOD COUNT 4.1 10^3/uL (4.0-10.5)
--- NOTE | 2018-04-08 22:12 | ER Document Report ---
ED General - General Chief Complaint: Shortness Of Breath Stated Complaint: SHORTNESS OF BREATH Time Seen by Provider: 04/08/18 22:10 Notes: Patient is a 67-year-old male who presents with complaint of difficulty breathing and fever. He was admitted here approximately week and a half ago. At that time he had A. fib that went into RVR. Congestive heart failure. The hard time keeping his A. fib under control as he became tachycardic and b radycardic therefore they referred him to [facility] because of need to see community education specialist. He was transferred there. He was kept there for several days. His breathing got better. His heart rate got under better control. He was discharged home approximately 12 hours ago. [facility] the [facility]. At the prison he started having difficulty breathing again and then spiked a fever and therefore was brought here. He comes in in some respiratory distress. No vomiting. No diarrhea. No chest pain. No abdominal pain. TRAVEL OUTSIDE OF THE [place] IN LAST 30 DAYS: No - Related Data Allergies/Adverse Reactions: No Known Allergies Allergy (Verified 01/20/17 12:59) Past Medical History - Social History Smoking Status: Former Smoker Frequency of alcohol use: None Drug Abuse: None Family History: CAD, COPD, DM, Hypertension, Malignancy - Past Medical History Cardiac Medical History: Reports: Hx Congestive Heart Failure, Hx Hypercholesterolemia, Hx Hypertension Denies: Hx Heart Attack Pulmonary Medical History: Reports: Hx COPD Denies: Hx Asthma - ? 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 Denies: Hx Traumatic Brain Injury Infectious Medical History: Denies: Hx Hepatitis Past Surgical History: Reports: Hx Neurologic Surgery - Spinal tumor removed, Hx Testicular Surgery - James's gangrene. Denies: Hx Open Heart Surgery, Hx Pacemaker - Immunizations Hx Diphtheria, Pertussis, Tetanus Vaccination: Yes Review of Systems - Review of Systems Notes: My Normal Review Basic REVIEW OF SYSTEMS: CONSTITUTIONAL : Fever EENT: Denies eye, ear, throat, or mouth pain or symptoms. Denies nasal or si nus congestion. CARDIOVASCULAR: Denies chest pain. RESPIRATORY: Difficulty breathing GASTROINTESTINAL: Denies abdominal pain. Denies nausea, vomiting, or diarrhea. GENITOURINARY: Denies difficulty urinating, painful urination, burning, frequency, or blood in urine. MUSCULOSKELETAL: Denies neck or back pain or joint pain or swelling. SKIN: Denies rash or skin lesions. NEUROLOGICAL: Denies altered mental status or loss of consciousness. Denies headache. Denies weakness or paralysis or loss of use of either side. Denies problems with gait or speech. Denies sensory or motor loss. ALL OTHER SYSTEMS REVIEWED AND NEGATIVE. Physical Exam - Vital signs Vitals: Pulse Ox 90 L 04/08/18 21:35 - Notes Notes: General Appearance: Well nourished, alert, cooperative, moderate acute distress, no obvious discomfort. Vitals: reviewed, See vital signs table. Head: no swelling or tenderness to the head Eyes: PERRL, EOMI, Conjuctiva clear Mouth: No decreasd moisture Neck: Supple, no neck tenderness, No thyromegaly Lungs: Patient has bilateral rales. He has accessory muscle use. Good air exchange bilaterally. Has tachypnea. Heart: Normal rate, Regular rythm, No murmur, no rub Abdomen: Normal BS, soft, No rigidity, No abdominal tenderness, No guarding, no rebound, no abdominal masses, no organomegaly Extremities: strength 5/5 in all extremities, good pulses in all extremities, no swelling or tenderness in the extremities, 1+ bilateral lower extremity edema. Skin: warm, dry, appropriate color, no rash Neuro: speech clear, oriented x 3, normal affect, responds appropriately to questions. Course - Re-evaluation Re-evalutation: 04/09/18 01:03 I did speak with Dr. Malagon about admission. At that time and has talked to him patient said he went to [facility] with RVR. I did get an EKG to confirm this. I will give him a dose of Cardizem and placed on Cardizem drip to help control his rate. Patient has been accepted for transfer to [facility]. They said they would not have a bed to around the afternoon. 04/09/18 02:21 Shortly after the patient became tachycardic he suddenly started to have worsening oxygenation. His oxygenation is is is 89% on BiPAP at 100%. He also has become more somewhat. I did consider that some of this could be related to Ativan being that he got Ativan however this was 2 hours ago. Is less likely is related to the Ativan I did speak with the family. They rather not intubate the patient if all possible being that they have been told by the inhalation therapy aide that is ever put on a ventilator again that he may not come off. Informed him that we could try dose of flumazenil to see if the Ativan is playing a role in this. Did review his previous med list and the patient is not chronically on benzodiazepines and therefore I felt that flumazenil most likely would be safe in his case. They agreed to it. I did give him a dose of the flumazenil but it had no effect on his oxygenation. Patient, despite being somnolent, is still pulling good tidal volumes on the BiPAP at a good rate, but unfortunately still not oxygenating well. I talked to family informed him that if we do not proceed with intubation and patient will continue to worsen. I did do a repeat chest x- ray before intubation to make sure there is no evidence of pneumothorax or any other reason why he would have such an acute decrease in oxygenation. Chest x- ray is not show any concerning findings at this time. I did go to intubate the patient. I did use a glide scope. Immediately when a glass cup was inserted patient had a large amount of frothy sputum coming from the glottis opening. This suggests that the patient is having worsening pulmonary edema at this point the normal-appearing chest x-ray. This is consistent with his lung auscultation of increasing diffuse rales. 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 ET tube was placed on first attempt. Patient's oxygenation immediately is a better on the ventilator. Oxygenation is now 98% on the ventilator. 04/09/18 02:39 Patient's blood pressure is now started to drop. A maternal to propofol. His oxygenation also started to drop and we suctioned out a large amount of frothy sputum through the ET tube. I did increase his PEEP. Oxygenation is now 93% on the ventilator. I did speak with [facility]. They said they would be happy to keep him on the waiting list. They said it would be several days and recommended admitting him impatiently and they would do an inpatient inpatient transfer when a ICU bed opens up. I will order a fentanyl drip to help control his sedation as this will likely provide adequate sedation without lowering his blood pressure is much as a propofol. Family said that they do not want to be transferred to any other facility and prefer to keep him here until he can be transferred to [facility]. They said the reason why they prefer [facility] is because that is where all his physicians are. 04/09/18 02:39 04/09/18 04:[address] Garner, hospitalist, agreed to evaluate the patient for admission. I did call back to [facility] and said we will go forward the plan to keep the patient on the wait list there and to do a inpatient inpatient transfer when bed becomes available. I did explain this to the family and they are happy with this plan. I did we discussed the DNR status with the family. says that the patient was for remain a DNR. She says if his heart is to stop and no CPR is to be performed. is okay with ventilatory support and blood pressure support with pressors. I did have stopped the Cardizem drip due to the patient's hypotension. At this point I do not think cardioversion will help us as patient has history of refractory atrial fibrillation and his heart rate is currently in the 120s which is probably not affecting his diastolic filling time that much. I do not feel that the benefits of cardioversion will outweigh the risks at this time. We will continue him on pressors as he is responding well to these. We will continue him on a ventilator as he is now oxygenating very well with the ventilator. Patient admitted for continued treatment. Dictation of this chart was performed using voice recognition software; therefore, there may be some unintended grammatical errors. - Vital Signs Vital signs: Temp Pulse Resp BP Pulse Ox 96.1 F L 12 105/69 99 04/09/18 01:01 04/09/18 03:51 04/09/18 03:51 04/09/18 03:51 - Laboratory Result Diagrams: 04/08/18 21:58 04/08/18 21:58 Laboratory results interpreted by me: 04/08/18 04/08/18 04/08/18 21:58 21:58 21:58 RBC 3.10 L Hgb 8.2 L Hct 25.5 L MCH 26.4 L RDW 21.1 H Lymphocytes % 8.5 L Monocytes % 13.8 H Absolute Lymphocytes 0.3 L PT 16.9 H VBG pCO2 VBG HCO3 Sodium 136.7 L Chloride 96 L Carbon Dioxide 34 H Glucose 203 H POC Glucose Calcium 7.5 L Direct Bilirubin 0.6 H ALT 20 L Alkaline Phosphatase 151 H Creatine Kinase NT-Pro-B Natriuret Pep Total Protein 4.6 L Albumin 2.6 L Urine Protein Urine Ketones Urine Urobilinogen Digoxin 04/08/18 04/08/18 04/08/18 21:58 21:58 21:58 RBC Hgb Hct MCH RDW Lymphocytes % Monocytes % Absolute Lymphocytes PT VBG pCO2 67.4 H* VBG HCO3 39.5 H Sodium Chloride Carbon Dioxide Glucose POC Glucose Calcium Direct Bilirubin ALT Alkaline Phosphatase Creatine Kinase NT-Pro-B Natriuret Pep 5370 H Total Protein Albumin Urine Protein Urine Ketones Urine Urobilinogen Digoxin 0.71 L 04/08/18 04/09/18 04/09/18 22:28 00:08 04:15 RBC Hgb Hct MCH RDW Lymphocytes % Monocytes % Absolute Lymphocytes PT VBG pCO2 VBG HCO3 Sodium Chloride Carbon Dioxide Glucose POC Glucose 216 H Calcium Direct Bilirubin ALT Alkaline Phosphatase Creatine Kinase < 20 L NT-Pro-B Natriuret Pep Total Protein Albumin Urine Protein 30 H Urine Ketones TRACE H Urine Urobilinogen 4.0 H Digoxin - EKG Interpretation by Me Additional EKG results interpreted by me: 04/08/18 22:12 EKG is reviewed and interpreted by me. EKG shows atrial fibrillation with a rate of [address] segment elevation or depression. No ischemic T wave inv ersions. Patient does have a right bundle branch block which is unchanged comparison to his previous EKG from March 29, 2018. QRS duration and QT intervals are prolonged. 04/09/18 01:03 EKG #2 is reviewed and interpreted by me. EKG shows A. fib with a rate of [address] segment changes. Patient does have right bundle branch block which is unchanged comparison to his previous EKG. Procedures - Intubation Orotracheal Mallampati Classification: Class 2 Medications: Etomidate, Succinylcholine Intubation method: Orotracheal Blade size: 4 Equipment used: Glidescope ETT size: 7.5 ETT secured at: Lips ETT secured at (cm): 25 Breath Sounds after Intubation: Equal End tidal CO2 confirmed: Yes Post Intubation Xray: Yes Intubation Complications: No complications Critical Care Note - Critical Care Note Total time excluding time spent on procedures (mins): 90 Comments: Critical care time for this patient not including time spent in procedures approximately 90 minutes due to frequent re-evaluations for worsening dyspnea, heart rate management, ventilator management, blood pressure management. Discharge - Discharge Clinical Impression: Atrial fibrillation Qualifiers: Atrial fibrillation type: chronic Qualified Code(s): I48.2 - Chronic atrial fibrillation Dyspnea Qualifiers: Dyspnea type: unspecified Qualified Code(s): R06.00 - Dyspnea, unspecified Fever Qualifiers: Fever type: unspecified Qualified Code(s): R50.9 - Fever, unspecified Condition: Stable Disposition: [facility]
[2018-04-08] MEDS ORDERED: LORAZEPAM INJ 2 MG/1 ML VIAL IV ONE ×2 (22:15→22:31)
[2018-04-08 22:17] LABS: INTERNATIONAL RATION (INR) 1.31; PROTHROMBIN TIME 16.9 SEC (11.4-15.4)
[2018-04-08 22:32] LABS: ALANINE AMINOTRANSFERASE 20 U/L (21-72); ALBUMIN 2.6 g/dL (3.5-5.0); ALKALINE PHOSPHATASE 151 U/L (38-126); ANION GAP 7 (5-19); ASPARTATE AMINO TRANSFERASE 17 U/L (17-59); BILIRUBIN,DIRECT 0.6 mg/dL (0.0-0.4); BILIRUBIN,TOTAL 0.9 mg/dL (0.2-1.3); BLOOD UREA NITROGEN 15 mg/dL (7-20); CALCIUM 7.5 mg/dL (8.4-10.2); CARBON DIOXIDE 34 mmol/L (22-30); CHLORIDE 96 mmol/L (98-107); GLUCOSE 203 mg/dL (75-110); POTASSIUM 4.3 mmol/L (3.6-5.0); SODIUM 136.7 mmol/L (137-145); TOTAL PROTEIN 4.6 g/dL (6.3-8.2)
[2018-04-08 23:19] LABS: VENOUS BLOOD PCO2 67.4 mmHg (35-63)
[2018-04-08] MEDS ORDERED: FUROSEMIDE INJ/PF 40 MG/4 ML SDV IV ONE (23:30)
[2018-04-09 00:26] LABS: APPEARANCE,URINE SLIGHTLY-CLOUDY; BILIRUBIN,URINE NEGATIVE (NEGATIVE); COLOR,URINE AMBER; GLUCOSE, URINE NEGATIVE (NEGATIVE); KETONES,URINE TRACE mg/dL (NEGATIVE); LEUKOCYTE ESTERASE,URINE NEGATIVE (NEGATIVE); NITRITE,URINE NEGATIVE (NEGATIVE); PROTEIN,URINE 30 mg/dL (NEGATIVE); URINE SPECIFIC GRAVITY 1.017
[2018-04-09] MEDS ORDERED: VANCOMYCIN HCL INJ 1000 MG VIAL IV ONE (00:35)
[2018-04-09] MEDS ORDERED: DILTIAZEM HCL INJ 25 MG/5 ML VIAL IV ONE (01:02)
[2018-04-09] MEDS ORDERED: DILTIAZEM HCL/D5W 125 MG/125 ML RTUINJ IV PRN (01:03)
[2018-04-09] MEDS ORDERED: FLUMAZENIL INJ 0.5 MG/5 ML VIAL IV ONE (01:30)
[2018-04-09] MEDS ORDERED: ETOMIDATE INJ/PF 20 MG/10 ML SDV IV ONE ×2 (01:53→12:00)
[2018-04-09] MEDS ORDERED: SUCCINYLCHOLINE CHLORIDE INJ 200 MG/10 ML VIAL IV ONE (01:54)
[2018-04-09] MEDS ORDERED: PROPOFOL 1,000 MG/100 ML INFUS..BTL IV ONE (01:58)
--- NOTE | 2018-04-09 01:58 | RADIOLOGY REPORT (SQ) ---
EXAM DESCRIPTION: XR CHEST 1 VIEW COMPLETED DATE/TME: 04/09/2018 01:32 CLINICAL HISTORY: 67 years, Male, dyspnea COMPARISON: 04/08/2018 chest NUMBER OF VIEWS: 1 TECHNIQUE: Portable chest LIMITATIONS: None. FINDINGS: Cardiomegaly. Electronic device projects over the left hemithorax as before. Lungs are clear. No pneumothorax. Mild atheromatous change thoracic aorta. Improvement in mild pulmonary vascular congestion IMPRESSION: Improvement in mild pulmonary vascular congestion. Stable cardiomegaly copyright 2010 [employer]- All Rights Reserved
--- NOTE | 2018-04-09 02:15 | RADIOLOGY REPORT (SQ) ---
EXAM DESCRIPTION: XR CHEST 1 VIEW COMPLETED DATE/TME: 04/09/2018 00:00 CLINICAL HISTORY: 67 years, Male, ETT PLACEMENT COMPARISON: Prior chest x-ray from earlier on the same date NUMBER OF VIEWS: 1 TECHNIQUE: Portable chest LIMITATIONS: None. FINDINGS: Stable cardiomegaly. Interval intubation. Endotracheal tube lies 2.9 cm above the gerhard. Enteric tube also partially visualized. No pneumothorax. Lungs appear clear IMPRESSION: Interval intubation and placement of an enteric tube. Stable cardiomegaly copyright 2011 [employer]- All Rights Reserved
[2018-04-09] MEDS ORDERED: NOREPINEPHRINE BITARTRATE INJ/PF 4 MG/4 ML SDV IV ONE ×3 (02:27→07:31)
[2018-04-09] MEDS ORDERED: FENTANYL CITRATE INJ/PF 100 MCG/2 ML AMPUL ONE (02:38)
[2018-04-09] MEDS ORDERED: FENTANYL CITRATE INJ/PF 100 MCG/2 ML AMPUL IV ONE (02:49)
[2018-04-09] MEDS ORDERED: DEXTROSE 5%-WATER 250 ML with NOREPINEPHRINE BITARTRATE 4 MG IV PRN ×2 (02:49)
[2018-04-09] MEDS ORDERED: SUCCINYLCHOLINE CHLORIDE INJ 200 MG/10 ML VIAL ONE (03:30)
[2018-04-09] MEDS ORDERED: ONDANSETRON HCL INJ/PF 4 MG/2 ML SDV IV PRN ×2 (03:55→08:00)
[2018-04-09] MEDS: FENTANYL CITRATE/PF 600 MCG/60 ML BAG IV PRN ×4 (04:04→16:45)
[2018-04-09] MEDS: PROPOFOL 1,000 MG/100 ML INFUS..BTL IV PRN ×2 (04:05→05:10)
[2018-04-09 04:59] LABS: CREATINE KINASE MB 1.06 ng/mL (<4.55)
[2018-04-09 05:07] LABS: TROPONIN I 0.034 ng/mL
[2018-04-09] MEDS: MIDAZOLAM HCL 50 MG/100 ML RTUINJ IV PRN ×3 (05:33→15:10)
--- NOTE | 2018-04-09 05:50 | PDOC H&P ---
History of Present Illness Admission Date/PCP: HILARIA ALFARO MD Patient complains of: Dyspnea History of Present Illness: THEODORE RUIZ is a 67 year old male who [facility] a [facility] of [facility] dysp[facility]. Patient was noted by [facility] staff to become acutely dyspneic and to have "spiked a fever" just prior to his arrival in the emergency room where his temperature was noted to be 99.3 F. He had just been discharged from [facility] approximately 12 hours before his emergency room visit. He had been treated for congestive heart failure and atrial fibrillation with rapid ventricular response at the time of his [facility] admission. His family wishes for him to be taken back to [facility], however, beds are not available at the present time, though they have indicated that they would accept him in transfer as soon as a bed is available. Upon his arrival in the emergency room he was severely dyspneic and unable to provide any information due to his respiratory distress and work of breathing. He was subsequently put on BiPAP and though he improved initially the improvement was short-lived and he was subsequently intubated and ventilated in the emergency room. Patient will therefore be admitted to ICU inpatient status until such time as he can be transferred to [facility] when a bed is available. Past Medical History Past Medical History: As the patient is intubated at the time my evaluation all past medical history, surgical history, social history, family history and any information included in the review of systems is obtained from old records and other available reliable sources of information. Cardiac Medical History: Reports: Congestive Heart Failure, Hyperlipidema, Hypertension Denies: Myocardial Infarction Pulmonary Medical History: Reports: Chronic Obstructive Pulmonary Disease (COPD) Denies: Asthma - ? EENT Medical History: Reports: None Neurological Medical History: Denies: Multiple Sclerosis, Seizures Endocrine Medical History: Reports: Diabetes Mellitus Type 2, Obesity Denies: Diabetes Mellitus Type 1, Hyperthyroidism, Hypothyroidism Renal/ Medical History: Denies: Chronic Kidney Disease, Nephrolithiasis Malignancy Medical History: Reports: Lymphoma GI Medical History: Denies: Hepatitis, Hiatal Hernia Musculoskeltal Medical History: Reports: Arthritis Psychiatric Medical History: Denies: Alcohol Dependency, Substance Abuse, Tobacco Dependency Traumatic Medical History: Denies: Traumatic Brain Injury Hematology: Denies: Anemia, Sickle Cell Disease Past Surgical History Past Surgical History: As the patient is intubated at the time my evaluation all past medical history, surgical history, social history, family history and any information included in the review of systems is obtained from old records and other available reliable sources of information. Additional past surgical history the patient had surgical treatment of F ournier's gangrene with an orchiectomy Past Surgical History: Reports: Other - Neurosurgical removal of a spinal tumor Social History Information Source: [facility] Records Lives with: [facility] Smoking Status: Former Smoker Frequency of Alcohol Use: None Hx Recreational Drug Use: No Drugs: None Hx Prescription Drug Abuse: No Past Social History Note: As the patient is intubated at the time my evaluation all past medical history, surgical history, social history, family history and any information included in the review of systems is obtained from old records and other available reliable sources of information. - Advance Directive Resuscitation Status: Do Not Resuscitate Surrogate healthcare decision maker:: His son Roscoe Ruiz Family History Family History: CAD, COPD, DM, Hypertension, Malignancy Family History: As the patient is intubated at the time my evaluation all past medical history, surgical history, social history, family history and any information included in the review of systems is obtained from old records and other available reliable sources of information. Parental Family History Reviewed: Yes Children Family History Reviewed: No Sibling(s) Family History Reviewed.: Yes Medication/Allergy Home Medications: Albuterol Sulfate [Proair HFA Inhalation Aerosol 8.5 gm MDI] 2 puff IH Q4HP PRN 03/03/18 Aspirin [Adult Low Dose Aspirin EC] 81 mg PO DAILY 03/03/18 Budesonide/Formoterol Fumarate [Symbicort HFA 160-4.5 mcg Inhaler 6 gm] 2 puff IH BID 03/03/18 Gabapentin [Neurontin] 600 mg PO Q6 03/03/18 Oxycodone HCl [Oxycontin] 15 mg PO Q8 03/03/18 Simvastatin [Zocor 20 mg Tablet] 20 mg PO QHS 03/03/18 Tiotropium [place] [Spiriva Respimat] 2 puff IH DAILY 03/03/18 Digoxin 250 mcg PO DAILY 30 Days #30 tablet 03/29/18 Furosemide [Lasix 20 mg Tablet] 20 mg PO BID 30 Days #60 tablet 03/29/18 Insulin Glargine,Hum.rec.anlog [Lantus Insulin 100 Unit/1 ml 10 ml] 35 unit SUBCUT QAM 30 Days #3 unit 03/29/18 Insulin Lispro [Humalog Insulin (Lispro) 100 unit/mL] 10 unit SUBCUT AC 30 Days #3 unit 03/29/18 Metoprolol Succinate [Toprol Xl 50 mg Tab.sr] 50 mg PO Q12 30 Days #60 t ab.sr.24h 03/29/18 Allergies/Adverse Reactions: No Known Allergies Allergy (Verified 01/20/17 12:59) Review of Systems ROS unobtainable: Due to endotracheal tube - As the patient is intubated at the time my evaluation all past medical history, surgical history, social history, family history and any information included in the review of systems is obtained from old records and other available reliable sources of information. Physical Exam Vital Signs: Temp Pulse Resp BP Pulse Ox 96.1 F L 12 105/69 99 04/09/18 01:01 04/09/18 03:51 04/09/18 03:51 04/09/18 03:51 Intake & Output 04/07/18 04/08/18 04/09/18 23:59 23:59 23:59 Intake Total 116 Output Total 450 Balance -334 Weight 118.5 kg General appearance: PRESENT: no acute distress, morbidly obese, other - Intubated and on a ventilator at the time of my evaluation Head exam: PRESENT: atraumatic, normocephalic Eye exam: PRESENT: conjunctiva pink. ABSENT: scleral icterus Ear exam: PRESENT: normal external ear exam. ABSENT: bleeding, drainage Mouth exam: PRESENT: dry mucosa, neck supple, other - Endotracheal tube in good position Neck exam: ABSENT: thyromegaly, tracheal deviation Respiratory exam: PRESENT: decreased breath sounds - Moderately decreased breath sounds at both bases are noted, rales - Moderate bibasilar rales are noted, symmetrical, other - Intubated and ventilated Cardiovascular exam: PRESENT: irregular rhythm - Irregularly irregular rate and rhythm, tachycardia - 110s. ABSENT: clicks, gallop, rubs Pulses: PRESENT: normal radial pulses, other - Dorsalis pedis pulses diminished bilaterally Vascular exam: PRESENT: normal capillary refill. ABSENT: pallor GI/Abdominal exam: PRESENT: distended - Mild abdominal distention airway pressure devices prior to intubation, normal bowel sounds, soft Rectal exam: PRESENT: deferred Extremities exam: PRESENT: +2 edema - Bilateral lower extremities to the knees.. ABSENT: joint swelling Musculoskeletal exam: ABSENT: deformity, dislocation Neurological exam: ABSENT: other - Intubated and ventilated Psychiatric exam: PRESENT: other - Intubated and ventilated Skin exam: PRESENT: dry, intact, warm. ABSENT: jaundice, rash, urticaria Results Laboratory Results: 04/08/18 21:58 04/08/18 21:58 04/08/18 04/08/18 04/08/18 21:58 21:58 21:58 WBC 4.1 RBC 3.10 L Hgb 8.2 L Hct 25.5 L MCV 82 MCH 26.4 L MCHC 32.1 RDW 21.1 H Plt Count 166 Seg Neutrophils % 75.0 Lymphocytes % 8.5 L Monocytes % 13.8 H Eosinophils % 2.5 Basophils % 0.2 Absolute Neutrophils 3.1 Absolute Lymphocytes 0.3 L Absolute Monocytes 0.6 Absolute Eosinophils 0.1 Absolute Basophils 0.0 VBG pH VBG pCO2 VBG HCO3 VBG Base Excess Sodium 136.7 L Potassium 4.3 Chloride 96 L Carbon Dioxide 34 H Anion Gap 7 BUN 15 Creatinine 0.71 Est GFR ( Amer) > 60 Est GFR (Non-Af Amer) > 60 Glucose 203 H Lactic Acid 0.8 Calcium 7.5 L Total Bilirubin 0.9 AST 17 ALT 20 L Alkaline Phosphatase 151 H Total Protein 4.6 L Albumin 2.6 L Urine Color Urine Appearance Urine pH Ur Specific [place] Urine Protein Urine Glucose (UA) Urine Ketones Urine Blood Urine Nitrite Ur Leukocyte Esterase Urine WBC (Auto) Urine RBC (Auto) 04/08/18 04/09/18 21:58 00:08 WBC RBC Hgb Hct MCV MCH MCHC RDW Plt Count Seg Neutrophils % Lymphocytes % Monocytes % Eosinophils % Basophils % Absolute Neutrophils Absolute Lymphocytes Absolute Monocytes Absolute Eosinophils Absolute Basophils VBG pH 7.39 VBG pCO2 67.4 H* VBG HCO3 39.5 H VBG Base Excess 12.9 Sodium Potassium Chloride Carbon Dioxide Anion Gap BUN Creatinine Est GFR ( Amer) Est GFR (Non-Af Amer) Glucose Lactic Acid Calcium Total Bilirubin AST ALT Alkaline Phosphatase Total Protein Albumin Urine Color ALY Urine Appearance SLIGHTLY-CLOUDY Urine pH 5.0 Ur Specific [place] 1.017 Urine Protein 30 H Urine Glucose (UA) NEGATIVE Urine Ketones TRACE H Urine Blood NEGATIVE Urine Nitrite NEGATIVE Ur Leukocyte Esterase NEGATIVE Urine WBC (Auto) 2 Urine RBC (Auto) 0 04/08/18 04/08/18 21:58 21:58 Troponin I 0.038 NT-Pro-B Natriuret Pep 5370 H Impressions: Chest X-Ray 04/09/18 01:32 IMPRESSION: Improvement in mild pulmonary vascular congestion. Stable cardiomegaly copyright 2010 [employer]- All Rights Reserved Assessment & Plan - Diagnosis (1) Acute respiratory failure with hypoxia and hypercapnia Is this a current diagnosis for this admission?: Yes Plan: Patient will be treated with intubation and ventilation in the ICU when a bed is available. Dr. Finney will be seeing the patient in consultation, and the patient will be transferred to [facility] per the family's wishes as soon as a bed is available there. (2) Acute exacerbation of CHF (congestive heart failure) Qualifiers: Heart failure type: systolic Qualified Code(s): I50.23 - Acute on chronic systolic (congestive) heart failure Is this a current diagnosis for this admission?: Yes Plan: Patient will be treated with with diuretic therapy as required for his congestive heart failure will also be maintained on medications aimed at controlling his heart rate which will help to also control his heart failure. This will be assisted by consultation with Dr. Moura. (3) Atrial fibrillation with rapid ventricular response Is this a current diagnosis for this admission?: Yes Plan: Patient's atrial fibrillation is well controlled with the Cardizem drip and further evaluation treatment will be directed by Dr. Moura (4) Diabetes mellitus type 2 in obese Is this a current diagnosis for this admission?: Yes Plan: While he is on the ventilator the patient will be maintained on every 4 hour Accu-Cheks with a sliding scale to maintain adequate glycemic control. (5) COPD (chronic obstructive pulmonary disease) with emphysema Qualifiers: Emphysema type: centrilobular Qualified Code(s): J43.2 - Centrilobular emphysema Is this a current diagnosis for this admission?: Yes Plan: Patient's COPD will be maintained on a maintenance level pulmonary toilet utilizing Atrovent and Xopenex. - Time Time Spent: 30 to 50 Minutes Critical Time spent with patient: Less than 15 minutes Medications reviewed and adjusted accordingly: Yes Anticipated discharge: [facility] - Inpatient Certification Based on my medical assessment, after consideration of the patient's comorbidities, presenting symptoms, or acuity I expect that the services needed warrant INPATIENT care.: Yes I certify that my determination is in accordance with my understanding of Medicare's requirements for reasonable and necessary INPATIENT services [42 CFR 412.3e].: Yes Medical Necessity: Significant Comorbidiites Make Outpatient Treatment Too Risky, Need Close Monitoring Due to Risk of Patient Decompensation, Need For IV Fluids, Need For Continuous Telemetry Monitoring, Need for Nebulizer Therapy and Monitoring of Response, Risk of Complication if Not Cared For in Hospital
[2018-04-09] MEDS: HEPARIN SOD (PORCINE) 5,000 UNIT/ML 1 ML SYRINGE SUBCUT SCH ×3 (06:01→21:12)
--- NOTE | 2018-04-09 07:31 | EKG REPORT ---
SEVERITY:- ABNORMAL ECG - ATRIAL FLUTTER/FIBRILLATION, A-RATE 248 RIGHT BUNDLE BRANCH BLOCK INFERIOR INFARCT, AGE INDETERMINATE ANTERIOR INFARCT, AGE INDETERMINATE : Confirmed by: Dima Rodríguez MD 09-Apr-2018 07:30:41
--- NOTE | 2018-04-09 07:31 | EKG REPORT ---
SEVERITY:- ABNORMAL ECG - SINUS TACHYCARDIA MULTIPLE ATRIAL PREMATURE COMPLEXES RIGHT BUNDLE BRANCH BLOCK INFERIOR INFARCT, AGE INDETERMINATE ANTERIOR INFARCT, AGE INDETERMINATE : Confirmed by: Dima Rodríguez MD 09-Apr-2018 07:31:08
[2018-04-09] MEDS: IPRATROPIUM BROMIDE 0.02% NEB 0.5 MG/2.5 ML AMPUL NEB SCH ×2 (07:38→16:04)
[2018-04-09] MEDS: LEVALBUTEROL HCL NEB 1.25 MG/3 ML AMPUL NEB SCH ×2 (07:38→16:03)
[2018-04-09] MEDS: DEXTROSE 5%-WATER 250 ML with NOREPINEPHRINE BITARTRATE 4 MG IV PRN ×8 (07:46→23:50)
--- NOTE | 2018-04-09 08:16 | RADIOLOGY REPORT (SQ) ---
EXAM DESCRIPTION: CHEST SINGLE VIEW COMPLETED DATE/TIME: 04/09/2018 8:02 am REASON FOR STUDY: On ventilator COMPARISON: Chest films 04/09/2018, 04/08/2018, 03/29/2018, 03/27/2018 EXAM PARAMETERS: NUMBER OF VIEWS: One view. TECHNIQUE: Single frontal radiographic view of the chest acquired. RADIATION DOSE: NA LIMITATIONS: None. FINDINGS: LUNGS AND PLEURA: With pulmonary vascular prominence is present with alveolar and intersti tial infiltrates in the bilateral lower lobes likely edema. Pneumonia could not be excluded. No pleural effusion. No pneumothorax. MEDIASTINUM AND HILAR STRUCTURES: No masses. Contour normal. HEART AND VASCULAR STRUCTURES: Moderate cardiomegaly BONES: No acute findings. HARDWARE: Endotracheal tube tip 2 cm above the gerhard. Nasogastric tube tip and side port in the sto mach. Implanted cardiac monitoring device over the anterior left lower chest OTHER: No other significant finding. IMPRESSION: Pulmonary vascular congestion with alveolar and interstitial infiltrates at both bases l ikely pulmonary edema. Pneumonia could not be excluded. TECHNICAL DOCUMENTATION: JOB ID: [id number]- All Rights Reserved Reading location - IP/workstation name: [email or web address]
[2018-04-09] MEDS: ACETAMINOPHEN 650 MG SUPP.RECT PR PRN ×2 (08:34→11:16)
[2018-04-09] MEDS ORDERED: ACETAMINOPHEN 325 MG TABLET PEG PRN (10:06)
[2018-04-09] MEDS ORDERED: PHENYLEPHRINE HCL INJ/PF 10 MG/1 ML SDV ONE (10:07)
[2018-04-09] MEDS ORDERED: ACETAMINOPHEN SOLN 325 MG/10.15 ML UDCUP PEG PRN (10:09)
[2018-04-09] MEDS ORDERED: DEXTROSE 50%-WATER 25 GM/50 ML DISP.SYRIN IV PRN ×2 (10:34)
[2018-04-09] MEDS ORDERED: GLUCAGON,HUMAN RECOMB 1 MG INJ IM PRN (10:34)
[2018-04-09] MEDS ORDERED: DEXTROSE 40% GEL 15 GM TUBE PO PRN ×2 (10:34)
--- NOTE | 2018-04-09 10:34 | Operative Report ---
Bedside Procedure - History of Present Illness Indication for Procedure: hypotension Surgeon: GISSELLE DARDEN - Central Line Right Subclavian Time completed: 10:00 Consent obtained: No - emergency Central line pre-insertion: Sterile PPE donned, Chloraprep applied Central line size (Fr.): 16 Anesthetic type: 1% Lidocaine mL's of anesthesia: 5 Ultrasound guided: No CM at insertion site: 18 Line secured with sutures: Yes Central line post-insertion: Blood return from lumens, Biopatch applied, Sutured, Sterile dressing applied, Position confirmed w/ CXR Number of attempts: 1 Complications: No
--- NOTE | 2018-04-09 10:36 | PDOC PROGRESS REPORT ---
Subjective Progress Note for:: 04/09/18 Subjective:: Atrial fibrillation with rapid ventricular response Hypotension Acute hypoxic respiratory failure Reason For Visit: ACUTE RESPIRATORY FAILURE WITH HYPOXIA Physical Exam Vital Signs: Temp Pulse Resp BP Pulse Ox 96.1 F L 17 111/77 92 04/09/18 01:01 04/09/18 08:22 04/09/18 08:22 04/09/18 08:22 Intake & Output 04/08/18 04/09/18 04/10/18 06:59 06:59 06:59 Intake Total 223 60 Output Total 500 Balance -277 60 Weight 118.5 kg General appearance: PRESENT: obese, severe distress, other Exam: Patient is in Trendelenburg position Head exam: PRESENT: normocephalic Eye exam: PRESENT: other - Not assessed Mouth exam: PRESENT: other - Endotracheal tube in place Neck exam: PRESENT: other - Very large neck Respiratory exam: PRESENT: decreased breath sounds - At bases, rales, symmetrical. ABSENT: wheezes Cardiovascular exam: PRESENT: irregular rhythm, tachycardia GI/Abdominal exam: PRESENT: normal bowel sounds, soft, other - Protuberant abdomen. ABSENT: tenderness Rectal exam: PRESENT: deferred Gentrourinary exam: PRESENT: indwelling catheter, other - Very dark urine Extremities exam: ABSENT: pedal edema Neurological exam: PRESENT: other - Intubated and sedated Psychiatric exam: PRESENT: other - Intubated and sedated Focused psych exam: PRESENT: other - Intubated and sedated Skin exam: PRESENT: mottled - Areas of mottling on the legs. Results Laboratory Results: 04/08/18 21:58 04/08/18 21:58 04/08/18 04/08/18 04/08/18 21:58 21:58 21:58 WBC 4.1 RBC 3.10 L Hgb 8.2 L Hct 25.5 L MCV 82 MCH 26.4 L MCHC 32.1 RDW 21.1 H Plt Count 166 Seg Neutrophils % 75.0 Lymphocytes % 8.5 L Monocytes % 13.8 H Eosinophils % 2.5 Basophils % 0.2 Absolute Neutrophils 3.1 Absolute Lymphocytes 0.3 L Absolute Monocytes 0.6 Absolute Eosinophils 0.1 Absolute Basophils 0.0 VBG pH VBG pCO2 VBG HCO3 VBG Base Excess Sodium 136.7 L Potassium 4.3 Chloride 96 L Carbon Dioxide 34 H Anion Gap 7 BUN 15 Creatinine 0.71 Est GFR ( Amer) > 60 Est GFR (Non-Af Amer) > 60 Glucose 203 H Lactic Acid 0.8 Calcium 7.5 L Total Bilirubin 0.9 AST 17 ALT 20 L Alkaline Phosphatase 151 H Total Protein 4.6 L Albumin 2.6 L Urine Color Urine Appearance Urine pH Ur Specific [place] Urine Protein Urine Glucose (UA) Urine Ketones Urine Blood Urine Nitrite Ur Leukocyte Esterase Urine WBC (Auto) Urine RBC (Auto) 04/08/18 04/09/18 21:58 00:08 WBC RBC Hgb Hct MCV MCH MCHC RDW Plt Count Seg Neutrophils % Lymphocytes % Monocytes % Eosinophils % Basophils % Absolute Neutrophils Absolute Lymphocytes Absolute Monocytes Absolute Eosinophils Absolute Basophils VBG pH 7.39 VBG pCO2 67.4 H* VBG HCO3 39.5 H VBG Base Excess 12.9 Sodium Potassium Chloride Carbon Dioxide Anion Gap BUN Creatinine Est GFR ( Amer) Est GFR (Non-Af Amer) Glucose Lactic Acid Calcium Total Bilirubin AST ALT Alkaline Phosphatase Total Protein Albumin Urine Color ALY Urine Appearance SLIGHTLY-CLOUDY Urine pH 5.0 Ur Specific [place] 1.017 Urine Protein 30 H Urine Glucose (UA) NEGATIVE Urine Ketones TRACE H Urine Blood NEGATIVE Urine Nitrite NEGATIVE Ur Leukocyte Esterase NEGATIVE Urine WBC (Auto) 2 Urine RBC (Auto) 0 04/08/18 04/08/18 04/09/18 21:58 21:58 04:15 Creatine Kinase < 20 L CK-MB (CK-2) Troponin I 0.038 NT-Pro-B Natriuret Pep 5370 H 04/09/18 04:15 Creatine Kinase CK-MB (CK-2) 1.06 Troponin I 0.034 NT-Pro-B Natriuret Pep Impressions: Chest X-Ray 04/09/18 08:00 IMPRESSION: Pulmonary vascular congestion with alveolar and interstitial infiltrates at both bases likely pulmonary edema. Pneumonia could not be excluded. Assessment & Plan - Diagnosis (1) Atrial fibrillation with rapid ventricular response Is this a current diagnosis for this admission?: Yes Plan: During the patient's most recent stay at [facility] he was transferred to [facility] for further cardiology evaluation and treatment. According to his a cardioversion was performed. The [facility] was [facility] a local [facility] facility yesterday afternoon. He returned to [facility] last evening. The patient was placed back on diltiazem. Evidently the patient was started on Tikosyn at [facility]. He is back on diltiazem. However due to hypotension he is now on levo fed and Nitin-Synephrine. We will try and obtain good rate control (2) Acute exacerbation of CHF (congestive heart failure) Qualifiers: Heart failure type: systolic Qualified Code(s): I50.23 - Acute on chronic systolic (congestive) heart failure Is this a current diagnosis for this admission?: Yes Plan: The patient's brain natruretic peptide is elevated as his chest x-ray was also consistent with failure. He is currently intubated. His urine is quite dark however he needs volume for his hypotension. I have started IV fluids but will administer 25 g of albumin as well. (3) Diabetes mellitus type 2 in obese Is this a current diagnosis for this admission?: Yes Plan: We will hold Lantus at this time but continue Humalog sliding scale. (4) COPD (chronic obstructive pulmonary disease) with emphysema Qualifiers: Emphysema type: centrilobular Qualified Code(s): J43.2 - Centrilobular emphysema Is this a current diagnosis for this admission?: Yes Plan: Continue nebulizer treatments (5) Morbid obesity with alveolar hypoventilation Is this a current diagnosis for this admission?: Yes Plan: Continue mechanical ventilation. Wean as tolerated. - Time Time Spent with patient: 35 or more minutes Medications reviewed and adjusted accordingly: Yes Anticipated discharge: [facility]
[2018-04-09] MEDS: DEXTROSE 5%-WATER 250 ML with PHENYLEPHRINE HCL 40 MG IV PRN ×4 (10:45→18:31)
--- NOTE | 2018-04-09 10:46 | RADIOLOGY REPORT (SQ) ---
EXAM DESCRIPTION: CHEST SINGLE VIEW COMPLETED DATE/TIME: 04/09/2018 10:35 am REASON FOR STUDY: central line placement COMPARISON: 04/09/2018 EXAM PARAMETERS: NUMBER OF VIEWS: One view. TECHNIQUE: Single frontal radiographic view of the chest acquired. RADIATION DOSE: NA LIMITATIONS: None. FINDINGS: Interval placement of a right chest vascular catheter, tip projecting in the vicinity of t he right brachiocephalic vein. Correlate for venous return. Otherwise stable findings on AP radiogr aph that excludes the bilateral lung bases. IMPRESSION: Interval placement of a right chest vascular catheter, tip projecting in the vicinity of the right brachiocephalic vein. Correlate for venous return. Otherwise stable findings on AP radiog raph that excludes the bilateral lung bases. TECHNICAL DOCUMENTATION: JOB ID: [id number]- All Rights Reserved Reading location - IP/workstation name: [email or web address]
[2018-04-09 11:19] LABS: ABSOLUTE EOSINOPHILS # (AUTO) 0.1 10^3/uL (0.0-0.6); ABSOLUTE LYMPHOCYTES (AUTO) 0.2 10^3/uL (0.5-4.7); ABSOLUTE MONOCYTES (AUTO) 0.6 10^3/uL (0.1-1.4); ABSOLUTE NEUT (AUTO) 2.1 10^3/uL (1.7-8.2); BASOPHILS % (AUTO) 0.3 % (0-2); EOSINOPHILS % (AUTO) 1.9 % (0-6); HEMATOCRIT 28.1 % (37.9-51.0); HEMOGLOBIN 8.8 g/dL (13.5-17.0); LYMPHOCYTES % (AUTO) 7.8 % (13-45); MEAN CORPUSCULAR HEMOGLOBIN 25.9 pg (27.0-33.4); MEAN CORPUSCULAR HGB CONC 31.2 g/dL (32.0-36.0); MEAN CORPUSCULAR VOLUME 83 fl (80-97); MONOCYTES % (AUTO) 18.8 % (3-13); PLATELET COUNT 213 10^3/uL (150-450); RED BLOOD COUNT 3.39 10^6/uL (4.35-5.55); RED CELL DISTRIBUTION WIDTH 21.1 % (11.5-14.0); SEGMENTED NEUTROPHILS % (AUTO) 71.2 % (42-78); TOTAL CELLS COUNTED % (AUTO) 100 %
[2018-04-09] MEDS: DILTIAZEM HCL/D5W 125 MG/125 ML RTUINJ IV PRN (11:29)
[2018-04-09] MEDS: ALBUMIN HUMAN 12.5 GM/50 ML RTUINJ IV SCH ×3 (11:33→14:18)
[2018-04-09 11:41] LABS: CREATINE KINASE MB 0.64 ng/mL (<4.55); TROPONIN I 0.046 ng/mL
[2018-04-09] MEDS: PANTOPRAZOLE SODIUM 40 MG VIAL IV SCH ×2 (11:59→21:12)
[2018-04-09] MEDS: INSULIN LISPRO 100 UNIT/ML 3 ML VIAL SUBCUT SCH ×2 (15:36→23:49)
[2018-04-09] MEDS ORDERED: LEVALBUTEROL HCL NEB 0.63 MG/3 ML AMPUL NEB PRN (16:45)
[2018-04-09] MEDS ORDERED: VANCOMYCIN HCL INJ 1000 MG VIAL ONE (16:45)
[2018-04-09 16:46] LABS: CREATINE KINASE MB 0.45 ng/mL (<4.55); TROPONIN I 0.05 ng/mL
[2018-04-09] MEDS: CEFEPIME 1 GM/D5W RTU 1 GM/50 ML RTUPB IV SCH (17:25)
[2018-04-09 17:29] LABS: ARTERIAL BLOOD BASE EXCESS 0.4 mmol/L; ARTERIAL BLOOD H2CO3 1.75 mmol/L (1.05-1.35); ARTERIAL BLOOD HCO3 27.9 mmol/L (20-24); ARTERIAL BLOOD O2 SATURATION 93.4 % (94-98); ARTERIAL BLOOD PCO2 58.3 mmHg (35-45); ARTERIAL BLOOD PO2 75.2 mmHg (80-100); ARTERIAL BLOOD TOTAL CO2 29.7 mmol/L (23-27)
[2018-04-09] MEDS: ACETYLCYSTEINE 20% SOLN 800 MG/4 ML VIAL.NEB NEB SCH (20:31)
[2018-04-09] MEDS: IPRATROPIUM/ALBUTEROL 0.5-2.5 MG/3 ML AMPUL NEB SCH (20:31)
[2018-04-09] MEDS ORDERED: LEVOFLOXACIN 750 MG/D5W RTU 750 MG/150 ML RTUPB IV SCH (22:00)
[2018-04-09] MEDS: VANCOMYCIN HCL 1,500 MG in DEXTROSE 5%-WATER 250 ML IV SCH (23:49)
[2018-04-10] MEDS: INSULIN LISPRO 100 UNIT/ML 3 ML VIAL SUBCUT SCH ×4 (00:20→18:38)
[2018-04-10] MEDS ORDERED: MAGNESIUM SULFATE 1 GM/D5W 100 ML IV PRN (02:01)
[2018-04-10] MEDS ORDERED: MAGNESIUM SULFATE/D5W 1 GM/100 ML RTUPB IV PRN ×2 (02:03→02:04)
[2018-04-10] MEDS ORDERED: POTASSIUM CHLORIDE 20 MEQ/50 ML RTU IV PRN ×3 (02:06→02:08)
[2018-04-10] MEDS: IPRATROPIUM/ALBUTEROL 0.5-2.5 MG/3 ML AMPUL NEB SCH ×4 (02:21→20:39)
[2018-04-10] MEDS: MIDAZOLAM HCL 50 MG/100 ML RTUINJ IV PRN ×4 (02:43→20:51)
[2018-04-10 04:54] LABS: ARTERIAL BLOOD BASE EXCESS 7.3 mmol/L; ARTERIAL BLOOD H2CO3 1.74 mmol/L (1.05-1.35); ARTERIAL BLOOD HCO3 33.4 mmol/L (20-24); ARTERIAL BLOOD O2 SATURATION 97.2 % (94-98); ARTERIAL BLOOD PCO2 57.9 mmHg (35-45); ARTERIAL BLOOD PH 7.38 (7.35-7.45); ARTERIAL BLOOD PO2 98.2 mmHg (80-100); ARTERIAL BLOOD TOTAL CO2 35.2 mmol/L (23-27)
[2018-04-10 04:57] LABS: HEMATOCRIT 22.9 % (37.9-51.0); MEAN CORPUSCULAR HGB CONC 31.7 g/dL (32.0-36.0); MEAN CORPUSCULAR VOLUME 82 fl (80-97); PLATELET COUNT 183 10^3/uL (150-450); RED BLOOD COUNT 2.79 10^6/uL (4.35-5.55); WHITE BLOOD COUNT 3.5 10^3/uL (4.0-10.5)
[2018-04-10 05:14] LABS: ANION GAP 8 (5-19); BLOOD UREA NITROGEN 22 mg/dL (7-20); CALCIUM 7.3 mg/dL (8.4-10.2); CARBON DIOXIDE 32 mmol/L (22-30); CHLORIDE 97 mmol/L (98-107); GLUCOSE 168 mg/dL (75-110); POTASSIUM 4.4 mmol/L (3.6-5.0); SODIUM 137.1 mmol/L (137-145)
[2018-04-10 05:25] LABS: ABSOLUTE LYMPHOCYTES# (MANUAL) 0.2 10^3/uL (0.5-4.7); ABSOLUTE MONOCYTES # (MANUAL) 0.4 10^3/uL (0.1-1.4); ABSOLUTE NEUTROPHILS# (MANUAL) 2.8 10^3/uL (1.7-8.2); BAND NEUTROPHILS % (MANUAL) 9 % (3-5); BASOPHILS % (MANUAL) 0 % (0-2); EOSINOPHILS % (MANUAL) 2 % (0-6); LYMPHOCYTES % (MANUAL) 7 % (13-45); MONOCYTES % (MANUAL) 12 % (3-13); SEGMENTED NEUTROPHILS % (MAN) 70 % (42-78); TOTAL CELLS COUNTED 100
[2018-04-10 05:26] LABS: ANISOCYTOSIS 3+; PLATELET COMMENT ADEQUATE; POLYCHROMASIA SLIGHT; TOXIC GRANULATION SLIGHT
[2018-04-10 05:27] LABS: HEMOGLOBIN 7.3 g/dL (13.5-17.0)
[2018-04-10 05:32] LABS: FREE T3 2.83 pg/mL (2.77-5.27); FREE T4 (FREE THYROXINE) 1.31 ng/dL (0.78-2.19)
[2018-04-10] MEDS: HEPARIN SOD (PORCINE) 5,000 UNIT/ML 1 ML SYRINGE SUBCUT SCH ×3 (05:33→21:24)
[2018-04-10] MEDS: CEFEPIME 1 GM/D5W RTU 1 GM/50 ML RTUPB IV SCH ×2 (05:36→18:27)
[2018-04-10] MEDS: VANCOMYCIN HCL 1,500 MG in DEXTROSE 5%-WATER 250 ML IV SCH ×3 (05:37→21:24)
[2018-04-10 05:46] LABS: THYROID STIMULATING HORMONE 1.43 uIU/mL (0.47-4.68)
--- NOTE | 2018-04-10 07:52 | RADIOLOGY REPORT (SQ) ---
EXAM DESCRIPTION: X-ray single view chest. CLINICAL HISTORY: 67 years Male, resp failure COMPARISON: 04/09/2018 at 10:24 AM and 8:02 AM TECHNIQUE: Single portable view of the chest performed on 04/10/2018 at 7:06 AM FINDINGS: The lungs are well expanded. There is improving right perihilar airspace disease. There is persistent volume loss in the left inferior hemithorax. An implantable heart rate monitor is noted projecting over the left inferior hemithorax. There is no evidence of a pneumothorax. The cardiac silhouette is stable and is mildly prominent. There is stable fullness of the pulmonary jesus. No acute osseous abnormality is identified. No focal soft tissue abnormalities are seen. Lines and tubes: The tip of the right subclavian central venous catheter has migrated and now projects over the region of the brachiocephalic vein. The endotracheal tube terminates just below the clavicular heads. A feeding tube extends below the diaphragm. IMPRESSION: 1. Improving aeration in the right perihilar region although there is persistent airspace disease in the right lower lobe. 2. Stable airspace consolidation in the left inferior hemithorax. 3. Stable prominence of the cardiac silhouette. 4. The tip of the right subclavian central venous catheter has migrated and now terminates in the region of the brachiocephalic vein. Remaining life support lines and tubes are grossly stable.
[2018-04-10] MEDS ORDERED: NORMAL SALINE 1000 ML 1,000 ML IV ONE (08:18)
[2018-04-10] MEDS: ACETYLCYSTEINE 20% SOLN 800 MG/4 ML VIAL.NEB NEB SCH ×2 (08:45→20:40)
[2018-04-10] MEDS: DEXTROSE 5%-WATER 250 ML with NOREPINEPHRINE BITARTRATE 4 MG IV PRN ×4 (09:16→19:54)
[2018-04-10] MEDS ORDERED: NORMAL SALINE 250 ML IV PRN ×2 (10:37)
[2018-04-10] MEDS: DIGOXIN 0.25 MG TABLET PO SCH (10:49)
[2018-04-10] MEDS: ASPIRIN 81 MG TABLET, ENT COATED PO SCH (10:49)
[2018-04-10] MEDS: PANTOPRAZOLE SODIUM 40 MG VIAL IV SCH ×2 (10:50→21:24)
--- NOTE | 2018-04-10 12:30 | PDOC PROGRESS REPORT ---
Subjective Progress Note for:: 04/10/18 Subjective:: This is a 67-year-old male patient with multiple comorbidities presented with severe dyspnea which failed to respond to BiPAP and later patient intubated emergently. Of note patient recently discharged from [facility] after he was treated for congestive heart failure. His chest x-ray reported as bibasilar infiltrates and pneumonia cannot be ruled out. Patient has been on triple antibiotics namely cefepime, Levaquin and vancomycin. At admission jeanette jimeneznt also found to have A. fib with RVR for which she has been on Cardizem drip. This morning I seen patient intubated and on mechanical ventilation. His heart rate ranges between 55 and 68. We discontinued the Cardizem drip. His urine is dark and reportedly his urine output is decreased. I bolused him with 1000 mL of normal saline to maintain him on 100 mL of Normal saline. Reason For Visit: ACUTE RESPIRATORY FAILURE WITH HYPOXIA Physical Exam Vital Signs: Temp Pulse Resp BP Pulse Ox 98.4 F 72 16 126/54 H 97 04/10/18 11:46 04/10/18 10:00 04/10/18 11:46 04/10/18 11:46 04/10/18 11:46 Intake & Output 04/09/18 04/10/18 04/11/18 06:59 06:59 06:59 Intake Total 223 2222 152 Output Total 500 415 121 Balance -277 1807 31 Weight 118.5 kg 123.7 kg General appearance: PRESENT: no acute distress Head exam: PRESENT: atraumatic Eye exam: PRESENT: conjunctiva pink Neck exam: ABSENT: carotid bruit, JVD, lymphadenopathy, thyromegaly Respiratory exam: PRESENT: decreased breath sounds Cardiovascular exam: PRESENT: bradycardia GI/Abdominal exam: PRESENT: normal bowel sounds Results Laboratory Results: 04/10/18 04:39 04/10/18 04:39 04/09/18 04/10/18 04/10/18 16:59 04:39 04:39 WBC RBC Hgb Hct MCV MCH MCHC RDW Plt Count Seg Neutrophils % Lymphocytes % Monocytes % Eosinophils % Basophils % Absolute Neutrophils Absolute Lymphocytes Absolute Monocytes Absolute Eosinophils Absolute Basophils Carbonic Acid 1.75 H 1.74 H HCO3/H2CO3 Ratio 15:1 19:1 ABG pH 7.30 L 7.38 ABG pCO2 58.3 H 57.9 H ABG pO2 75.2 L 98.2 ABG HCO3 27.9 H 33.4 H ABG O2 Saturation 93.4 L 97.2 ABG Base Excess 0.4 7.3 FiO2 55% 55% Sodium 137.1 Potassium 4.4 Chloride 97 L Carbon Dioxide 32 H Anion Gap 8 BUN 22 H Creatinine 1.21 Est GFR ( Amer) > 60 Est GFR (Non-Af Amer) > 60 Glucose 168 H Calcium 7.3 L Magnesium 1.8 TSH Free T4 Free T3 pg/mL Blood Type Antibody Screen 04/10/18 04/10/18 04/10/18 04:39 04:39 10:44 WBC 3.5 L RBC 2.79 L Hgb 7.3 L Hct 22.9 L MCV 82 MCH 26.0 L MCHC 31.7 L RDW 21.0 H Plt Count 183 Seg Neutrophils % Not Reportable Lymphocytes % Not Reportable Monocytes % Not Reportable Eosinophils % Not Reportable Basophils % Not Reportable Absolute Neutrophils Not Reportable Absolute Lymphocytes Not Reportable Absolute Monocytes Not Reportable Absolute Eosinophils Not Reportable Absolute Basophils Not Reportable Carbonic Acid HCO3/H2CO3 Ratio ABG pH ABG pCO2 ABG pO2 ABG HCO3 ABG O2 Saturation ABG Base Excess FiO2 Sodium Potassium Chloride Carbon Dioxide Anion Gap BUN Creatinine Est GFR ( Amer) Est GFR (Non-Af Amer) Glucose Calcium Magnesium TSH 1.43 Free T4 1.31 Free T3 pg/mL 2.83 Blood Type O NEGATIVE Antibody Screen NEGATIVE 04/08/18 04/08/18 04/09/18 21:58 21:58 04:15 Creatine Kinase < 20 L CK-MB (CK-2) Troponin I 0.038 NT-Pro-B Natriuret Pep 5370 H 04/09/18 04/09/18 04/09/18 04:15 10:44 10:44 Creatine Kinase < 20 L CK-MB (CK-2) 1.06 0.64 Troponin I 0.034 0.046 NT-Pro-B Natriuret Pep 04/09/18 04/09/18 15:50 15:50 Creatine Kinase 30 L CK-MB (CK-2) 0.45 Troponin I 0.050 NT-Pro-B Natriuret Pep Impressions: Chest X-Ray 04/10/18 06:00 IMPRESSION: 1. Improving aeration in the right perihilar region although there is persistent airspace disease in the right lower lobe. 2. Stable airspace consolidation in the left inferior hemithorax. 3. Stable prominence of the cardiac silhouette. 4. The tip of the right subclavian central venous catheter has migrated and now terminates in the region of the brachiocephalic vein. Remaining life support lines and tubes are grossly stable. Assessment & Plan - Diagnosis (1) Acute respiratory failure with hypoxia and hypercapnia Is this a current diagnosis for this admission?: Yes Plan: Patient has been on mechanical ventilation. Dr. Finney has been following this patient. (2) Pneumonia Is this a current diagnosis for this admission?: Yes Plan: As I mentioned above the chest x-ray reported as bibasilar infiltrates and pneumonia cannot be ruled out. Since patient has recent hospitalization the p ossibility of healthcare associated pneumonia considered and patient has been on triple antibiotics. (3) Chronic atrial fibrillation with RVR Is this a current diagnosis for this admission?: Yes Plan: Now rate controlled and Cardizem will be discontinued. (4) Type 2 diabetes mellitus Is this a current diagnosis for this admission?: Yes Plan: Continue current regimen (5) COPD (chronic obstructive pulmonary disease) Qualifiers: Emphysema type: unspecified Is this a current diagnosis for this admission?: Yes Plan: Continue bronchodilators (6) Acute on chronic systolic CHF (congestive heart failure) Is this a current diagnosis for this admission?: Yes Plan: We will cautiously diurese him. (7) Morbid obesity Is this a current diagnosis for this admission?: Yes Plan: I would encourage patient to do lifestyle modification
[2018-04-10] MEDS: LEVOFLOXACIN 750 MG/D5W RTU 750 MG/150 ML RTUPB IV SCH (18:29)
[2018-04-10] MEDS: NORMAL SALINE 1000 ML 1,000 ML IV PRN (20:50)
--- NOTE | 2018-04-10 20:50 | PDOC CONSULTATION ---
Consultation-Blank Consultation: CARDIOLOGY CONSULTATION by Dr. Corina Foster on 04/10/2018. Patient seen at 11 AM on 04/10/2018. Note 60 minutes spent on this patient, with more than 50% of time spent in direct patient care. REASON FOR CONSULTATION: Congestive heart failure in a patient with cardiomyopathy, and coronary artery disease, and history of proximal atrial fibrillation/flutter. HISTORY PRESENT ILLNESS: Patient is a 67-year-old male with known history of coronary artery disease, history of cardiomyopathy, history of atrial flutter/fibrillation, chronic kidney disease, diabetes mellitus, and severe COPD with several episodes of acute on chronic respiratory failure due to acute exacerbation of COPD/pneumonia. The patient recently was admitted to this hospital for acute on chronic respiratory failure. He had initially paroxysms of atrial fibrillation, and subsequently was in sustained atrial flutter resistant to treatment. He was transferred to [facility] where as per the the patient had a EMILY guided cardioversion to sinus rhythm. Subsequently the patient was transferred to rehab center. The patient in the rehab was found to be acutely short and short of breath. He was brought to the emergency room, where he was in respiratory failure and was diagnosed with acute exacerbation of COPD, CHF and pneumonia and intubated. He had a transient episode of atrial flutter with rapid ventricular response, and now the patient is in sinus rhythm. The patient also is hypertensive most likely secondary to septic shock due to the pneumonia and at present is on Levophed at 6 mcg/min. His heart rate also is going up and the patient is in sinus tach at present. With a ventricular response in the 130s. As per the the patient did have a fever. And had cough. No other history obtained from the . No recent symptoms of chest pain or discomfort. PAST MEDICAL HISTORY: History of coronary artery disease by stress testing. This showed that the patient had a inferior wall TN in the past by stress testing. He has a cardiomyopathy with LV ejection fraction moderately reduced at around 45%. He also has a history of atrial fibrillation,/flutter, recently cardioverted with EMILY guidance to sinus rhythm. He also has a history of COPD and several respiratory failure requiring intubation. In the previous past he has had prolonged intubation requiring tracheostomy. He also has history of recurrent pneumonias. He has a history of diabetes mellitus type 2 he has a history of obesity and sleep apnea intolerant to CPAP. He has a history of hypertension prior history of congestive heart failure hyperlipidemia. 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 He has no history of chronic kidney disease. He has had back surgery and neurological neural neurosurgical removal of a spinal tumor. He has had cardiac catheterizations in the past. History of int ubation in the past requiring requiring tracheostomy. He is also had a history of surgical treatment for James's gangrene of the scrotum and also has had orchiectomy. REVIEW of symptoms: Not obtainable since the patient is intubated and sedated, and the does not know much since the patient was in rehab. She states that he had a fever, and also had sudden shortness of breath. Allergies: No known allergies. FAMILY HISTORY: Is positive for CAD COPD diabetes mellitus hypertension malignancy. DISPOSITION: The patient is DNR. His is a surrogate healthcare decision maker. PHYSICAL EXAMINATION: The patient is morbidly obese. He is intubated and sedated. He is not fighting the ventilator. Selected Entries 04/10/18 04/10/18 11:46 12:00 Temperature 98.4 F Heart Rate ( 75 Monitors) Respiratory 16 Rate Blood Pressure 126/54 H Blood Pressure 78 Mean O2 Sat by Pulse 97 Oximetry Fraction of 55 Inspired Oxygen (FIO2) HEAD: Head is atraumatic and normocephalic. EYES: Pupils are equal round regular reactive to light accommodation. Extraocular movements are normal, there is no conjunctival pallor, and no scleral icterus. EARS: Tympanic membranes are intact external auditory canals are clear. NOSE: There is no inflammation of the nasal mucous membrane there is no deviated nasal septum. MOUTH: Mucous membranes of mouth and tongue are moist, there is no ulcers in the mouth or tongue, and no bleeding from the gums. THROAT: There is no redness of the oropharynx, no exudate seen. SKIN: There is no petechia or ecchymosis. There is no rashes or lesions. NECK: Supple. There is no JVD. Carotids are equal there is no bruit. There is no lymphadenopathy. There is no goiter. Trachea central LUNGS: There is diminished air entry and prolonged expiration. Clear to auscultation bilaterally, no wheezes, rales, but there is diffuse rhonchi. On percussion there is hyperresonance although there is no chest wall tenderness HEART: S1 and S2 are heard. S1 is of variable intensity, there is no S3 or S4 gallops. There is a systolic murmur the left sternal border and the apex. There is no rub. ABDOMEN: Normoactive bowel sounds, soft, nontender, no masses, no rebound, no guarding. There is no hepatosplenomegaly. EXTREMITIES: Femorals are slightly diminished. There is no femoral bruits. Leg pulses are diminished. There is no pedal edema. There is no DVT or cellulitis. There is no cyanosis or clubbing. There is no calf tenderness. NEUROLOGICAL the patient is awake alert oriented 3 with no focal deficits. PSYCHIATRIC: The patient judgment and insight are intact his affect is normal. His initial EKG showed atrial flutter with fast ventricular response. Right bundle branch block pattern and left axis deviation, with left anterior fascicular block. Subsequent EKG shows sinus rhythm with a right bundle branch block pattern and left anterior fascicular block. Current Medications Generic Name Dose Route Start Last Admin Trade Name Freq PRN Reason Stop Dose Admin Acetaminophen 650 mg 04/09/18 04:06 04/09/18 11:16 Tylenol 650 Mg Supp MS 05/09/18 04:05 650 mg Q4HP PRN Administration For headache, pain or fever Acetaminophen 650 mg 04/09/18 10:09 Tylenol Soln 325 Mg/10.15 Ml Udcup PEG 05/09/18 10:08 Q4HP PRN PAIN OR TEMP Acetylcysteine 600 mg 04/09/18 20:00 04/10/18 08:45 Mucomist 20% Soln 800 Mg/4 Ml NEB 05/09/18 19:59 600 mg RTBID EMIL Administration Albuterol/Ipratropium 3 ml 04/09/18 20:00 04/10/18 14:56 Duoneb 3 Ml Ampul NEB 05/09/18 19:59 3 ml RTQ6 EMIL Administration Aspirin 81 mg 04/10/18 10:00 04/10/18 10:49 Ecotrin 81 Mg Ec Tablet PO 05/10/18 09:59 81 mg DAILY EMIL Administration Dextrose 12.5 gm 04/09/18 10:34 Dextrose Inj 50% Syringe (25 Gm/50 Ml) IV 05/09/18 10:33 PRN PRN FOR BG 50-69 IN ALERT PATIENT Protocol Dextrose 25 gm 04/09/18 10:34 Dextrose Inj 50% Syringe (25 Gm/50 Ml) IV 05/09/18 10:33 PRN PRN PER PROTOCOL Protocol Digoxin 0.25 mg 04/10/18 10:00 04/10/18 10:49 Lanoxin 0.25 Mg Tablet PO 05/10/18 09:59 0.25 mg DAILY EMIL Administration Glucagon 1 mg 04/09/18 10:34 Glucagen Inj 1 Mg Vial IM 05/09/18 10:33 PRN PRN Evaluate for BG < 70 Protocol Glucose 15 gm 04/09/18 10:34 Glutose 40% Gel 15 Gm Tube PO 05/09/18 10:33 PRN PRN FOR BG 50-69 IN ALERT PATIENT Protocol Glucose 30 gm 04/09/18 10:34 Glutose 40% Gel 15 Gm Tube PO 05/09/18 10:33 PRN PRN FOR BG < 50 IN ALERT PATIENT Protocol Heparin Sodium (Porcine) 5,000 unit 04/09/18 06:00 04/10/18 14:15 Heparin Inj 5,000 Units/Ml 1 Ml Syringe SUBCUT 05/09/18 05:59 5,000 unit Q8 EMIL Administration Heparin Sodium (Porcine) 30 unit 04/10/18 06:00 04/10/18 14:47 Heparin Flush 10 Unit/Ml 5 Ml Disp.Syrg IV 05/10/18 05:59 Not Given Q8 EMIL Heparin Sodium (Porcine) 30 unit 04/09/18 23:44 Heparin Flush 10 Unit/Ml 5 Ml Disp.Syrg IV 05/09/18 23:43 .AFTER EACH USE PRN AFTER EACH INTERMITTENT USE Fentanyl Citrate 600 mcg in 60 mls @ 0 mls/hr 04/09/18 02:47 04/09/18 18:45 Sublimaze Auto Transmission Technician/Pf 600 Mcg/60 Ml Rtu Vial IV 04/16/18 02:46 0 mcg/hr ASDIR PRN 0 mls/hr THIS MED IS NOT "PRN" Infusion Protocol Per Protocol Propofol 1,000 mg in 100 mls @ 0 mls/hr 04/09/18 02:30 04/09/18 06:53 Diprivan Rtu 1000 Mg/100 Ml Inf.Bottle IV 05/09/18 02:29 0 mcg/kg/min CONTINUOUS PRN 0 mls/hr THIS MED IS NOT "PRN" Titration Protocol Titrate Diltiazem HCl 125 mg in 125 mls @ 0 mls/hr 04/09/18 04:12 04/10/18 08:00 Cardizem Rtu Inj 125 Mg-D5w 125 Ml Premix IV 05/09/18 01:02 Infused CONTINUOUS PRN Titration THIS MED IS NOT "PRN" Protocol Titrate Norepinephrine Bitartrate 4 mg 250 mls @ 0 mls/hr 04/09/18 04:13 04/10/18 19:54 / Dextrose IV 05/09/18 02:48 6 mcg/min CONTINUOUS PRN 22.5 mls/hr THIS MED IS NOT "PRN" Administration Titrate Hard Fat/Phenylephrine 40 mg/ 250 mls @ 0 mls/hr 04/09/18 09:16 04/10/18 16:27 Dextrose IV 05/09/18 09:15 Infused CONTINUOUS PRN Titration THIS MED IS NOT "PRN" Protocol Titrate Cefepime HCl 1 gm in 50 mls @ 100 mls/hr 04/09/18 18:00 04/10/18 18:27 Maxipime Rtu 1 Gm/D5w 50 Ml Premix Bag IV 04/16/18 17:59 100 mls/hr Q12A EMIL 100 mls/hr Administration Vancomycin HCl 1,500 mg/ 250 mls @ 166.667 mls/hr 04/09/18 23:00 04/10/18 14:47 Dextrose IV 04/16/18 22:59 166.7 ml/hr Q8 EMIL 166.7 mls/hr Administration Magnesium Sulfate/Dextrose 1 gm in 100 mls @ 100 mls/hr 04/10/18 02:01 Magnesium Sulfate Rtu-D5w 1 Gm/100 Ml Premix IV ASDIR PRN SERUM MAGNESIUM 1.3-1.5MG/DL Magnesium Sulfate/Dextrose 1 gm in 100 mls @ 100 mls/hr 04/10/18 02:03 Magnesium Sulfate Rtu-D5w 1 Gm/100 Ml Premix IV ASDIR PRN SERUM MAGNESIUM 1.0-1.2MG/DL Magnesium Sulfate/Dextrose 1 gm in 100 mls @ 100 mls/hr 04/10/18 02:04 Magnesium Sulfate Rtu-D5w 1 Gm/100 Ml Premix IV ASDIR PRN SERUM MAGNESIUM < 1 MG/DL Potassium Chloride/Water 20 meq in 50 mls @ 25 mls/hr 04/10/18 02:06 Potassium Chloride Juan Manuel 20 Meq/50 Ml IV ASDIR PRN SERUM K LEVEL 3.1- 3.4 MEQ/L Potassium Chloride/Water 20 meq in 50 mls @ 25 mls/hr 04/10/18 02:07 Potassium Chloride Juan Manuel 20 Meq/50 Ml IV ASDIR PRN SERUM K LEVEL 2.5 - 3.0 MEQ/L Potassium Chloride/Water 20 meq in 50 mls @ 25 mls/hr 04/10/18 02:08 Potassium Chloride Juan Manuel 20 Meq/50 Ml IV ASDIR PRN SERUM K LEVEL BELOW 2.5 MEQ/L Levofloxacin/Dextrose 750 mg in 150 mls @ 100 mls/hr 04/10/18 18:00 04/10/18 18:29 Levaquin Rtu 750 Mg/D5w 150 Ml Premix IV 04/17/18 17:59 75 mg/hr QPM EMIL 15 mls/hr Administration Sodium Chloride 1,000 mls @ 100 mls/hr 04/10/18 08:19 Nacl 0.9% 1000 Ml Iv Soln IV 05/10/18 08:18 CONTINUOUS PRN THIS MED IS NOT "PRN" Sodium Chloride 250 mls @ 30 mls/hr 04/10/18 10:37 Nacl 0.9% 250 Ml Iv Soln IV 04/11/18 10:36 .DURING TRANSFUSION PRN THIS MED IS NOT "PRN" Sodium Chloride 250 mls @ 0 mls/hr 04/10/18 10:37 Nacl 0.9% 250 Ml Iv Soln IV 04/11/18 10:36 CONTINUOUS PRN AFTER EACH UNIT As Directed Midazolam HCl 50 mg in 100 mls @ 0 mls/hr 04/10/18 13:25 04/10/18 16:38 Versed Rtu 50 Mg/100 Ml Premix Bag IV 04/17/18 13:24 7 mg/hr CONTINUOUS PRN 14 mls/hr THIS MED IS NOT "PRN" Titration Protocol Titrate Influenza Virus Vaccine Quadrival 0.5 ml 04/10/18 01:36 Fluarix Adlt Quad Vac 0.5 Ml Syr IM 05/10/18 01:35 .DISCHARGE PRN THIS MED IS NOT "PRN" Insulin Human Lispro 0 - 12 unit 04/09/18 12:00 04/10/18 18:38 Humalog Insulin 100 Unit/1 Ml 3 Ml Vial SUBCUT 05/09/18 11:59 2 unit Q6 EMIL Administration Protocol Levalbuterol HCl 0.63 mg 04/09/18 16:45 Xopenex Neb 0.63 Mg/3 Ml Ampul NEB 05/09/18 16:44 RTQ4HP PRN RESPIRATROY TREATMENT Ondansetron HCl 4 mg 04/09/18 08:00 Zofran Inj/Pf 4 Mg/2 Ml Sdv IV 05/09/18 03:54 Q4HP PRN FOR NAUSEA/VOMITING Pantoprazole Sodium 40 mg 04/09/18 10:00 04/10/18 10:50 Protonix Iv Inj 40 Mg Vial IV 04/12/18 09:59 40 mg Q12 EMIL Administration Sodium Chloride 2.5 ml 04/09/18 06:00 04/10/18 13:44 Saline Flush 2.5 Ml Monoject Prefil Syrin IV 05/09/18 05:59 Not Given Q8 EMIL Discontinued Medications Generic Name Dose Route Start Last Admin Trade Name Freq PRN Reason Stop Dose Admin Diltiazem HCl 10 mg 04/09/18 01:02 04/09/18 01:17 Cardizem Inj 25 Mg/5 Ml Vial IV 04/09/18 01:03 10 mg NOW ONE Administration Etomidate 20 mg 04/09/18 01:53 04/09/18 03:50 Amidate Inj/Pf 20 Mg/10 Ml Sdv IV 04/09/18 01:54 20 mg NOW ONE Administration Etomidate 20 mg 04/09/18 12:00 Amidate Inj/Pf 20 Mg/10 Ml Sdv IV 04/09/18 12:01 .STK-MED ONE Fentanyl Citrate Confirm 04/09/18 02:38 04/09/18 03:44 Sublimaze Inj/Pf 100 Mcg/2 Ml Ampule Administered 04/09/18 02:39 Not Given Dose 100 mcg .ROUTE .STK-MED ONE Fentanyl Citrate 100 mcg 04/09/18 02:49 04/09/18 03:26 Sublimaze Inj/Pf 100 Mcg/2 Ml Ampule IV 04/09/18 02:50 100 mcg NOW ONE Administration Flumazenil 0.2 mg 04/09/18 01:30 04/09/18 01:35 Romazicon Inj 0.5 Mg/5 Ml Vial IV 04/09/18 01:31 0.2 mg NOW ONE Administration Furosemide 40 mg 04/08/18 23:30 04/09/18 00:11 Lasix Inj/Pf 40 Mg/4 Ml Sdv IV 04/08/18 23:31 40 mg NOW ONE Administration Hard Fat/Phenylephrine Confirm 04/09/18 10:07 04/09/18 12:34 Nitin-Synephrine Inj/Pf 10 Mg/1 Ml Sdv Administered 04/09/18 10:08 Not Given Dose Patient not on this 10 mg .ROUTE .STK-MED ONE Diltiazem HCl 125 mg in 125 mls @ 0 mls/hr 04/09/18 01:03 04/09/18 03:48 Cardizem Rtu Inj 125 Mg-D5w 125 Ml Premix IV 05/09/18 01:02 10 mls/hr CONTINUOUS PRN 10 mls/hr THIS MED IS NOT "PRN" Titration Protocol Titrate Propofol Confirm 04/09/18 01:58 04/09/18 03:29 Diprivan Rtu 1000 Mg/100 Ml Inf.Bottle Administered 04/09/18 01:59 Not Given Dose 1,000 mg in 100 mls @ ud IV .STK-MED ONE Norepinephrine Bitartrate 4 mg 250 mls @ 0 mls/hr 04/09/18 02:49 04/09/18 03:28 / Dextrose IV 05/09/18 02:48 37.5 mls/hr CONTINUOUS PRN 37.5 mls/hr THIS MED IS NOT "PRN" Administration Protocol Titrate Midazolam HCl 50 mg in 100 mls @ 0 mls/hr 04/09/18 05:19 04/10/18 13:16 Versed Rtu 50 Mg/100 Ml Premix Bag IV 04/16/18 05:18 0.04 mg/kg/hr CONTINUOUS PRN 12 mls/hr THIS MED IS NOT "PRN" Administration Protocol Titrate Albumin Human 12.5 gm in 50 mls @ 50 mls/hr 04/09/18 09:30 04/09/18 11:33 Albuminar-25 Rtu Inj 12.5 Gm/50 Ml Premix IV 04/09/18 11:29 Not Given Q1H EMIL Albumin Human 12.5 gm in 50 mls @ 50 mls/hr 04/09/18 12:15 04/09/18 14:18 Albuminar-25 Rtu Inj 12.5 Gm/50 Ml Premix IV 04/09/18 14:14 50 mls/hr Q1H EMIL 50 mls/hr Administration Levofloxacin/Dextrose 750 mg in 150 mls @ 100 mls/hr 04/09/18 22:00 04/09/18 23:52 Levaquin Rtu 750 Mg/D5w 150 Ml Premix IV 04/16/18 21:59 Infused Q2D@2200 EMIL Infusion Sodium Chloride 1,000 mls @ 0 mls/hr 04/10/18 08:18 04/10/18 14:45 Nacl 0.9% 1000 Ml Iv Soln IV 04/10/18 08:19 Infused BOLUS ONE Infusion Wide Open Ipratropium [place] 0.5 mg 04/09/18 08:00 04/09/18 16:04 Atrovent 0.02% Neb 0.5 Mg/2.5 Ml Ampul NEB 05/09/18 07:59 0.5 mg RTQ8 EMIL Administration Levalbuterol HCl 1.25 mg 04/09/18 08:00 04/09/18 16:03 Xopenex Neb 1.25 Mg/3 Ml Ampul NEB 05/09/18 07:59 1.25 mg RTQ8 EMIL Administration Lorazepam 0.5 mg 04/08/18 22:15 04/08/18 22:20 Ativan Inj 2 Mg/1 Ml Vial IV 04/08/18 22:16 0.5 mg NOW ONE Administration Lorazepam 1 mg 04/08/18 22:31 04/08/18 22:35 Ativan Inj 2 Mg/1 Ml Vial IV 04/08/18 22:32 1 mg NOW ONE Administration Norepinephrine Bitartrate Confirm 04/09/18 02:27 04/09/18 03:26 Levophed Inj/Pf 4 Mg/4 Ml Sdv Administered 04/09/18 02:28 Not Given Dose 4 mg IV .STK-MED ONE Norepinephrine Bitartrate Confirm 04/09/18 02:28 04/09/18 03:26 Levophed Inj/Pf 4 Mg/4 Ml Sdv Administered 04/09/18 02:29 Dose The patient is on 6 mcg/min on this. 4 mg IV .STK-MED ONE Norepinephrine Bitartrate Confirm 04/09/18 07:31 04/09/18 12:19 Levophed Inj/Pf 4 Mg/4 Ml Sdv Administered 04/09/18 07:32 Not Given Dose 4 mg IV .STK-MED ONE Ondansetron HCl 4 mg 04/09/18 03:55 Zofran Inj/Pf 4 Mg/2 Ml Sdv IV 05/09/18 03:54 Q4HP PRN FOR NAUSEA/VOMITING Succinylcholine Chloride 100 mg 04/09/18 01:54 04/09/18 03:49 Anectine Inj 200 Mg/10 Ml Vial IV 04/09/18 01:55 100 mg NOW ONE Administration Succinylcholine Chloride 200 mg 04/09/18 03:30 Anectine Inj 200 Mg/10 Ml Vial .ROUTE 04/09/18 03:31 .STK-MED ONE Vancomycin HCl 1,000 mg 04/09/18 00:35 04/09/18 01:17 Vancocin Inj 1000 Mg Vial IV 04/09/18 00:36 1,000 mg NOW ONE Administration Albuterol Sulfate [Proair HFA Inhalation Aerosol 8.5 gm MDI] 2 puff IH Q4HP PRN 03/03/18 Aspirin [Adult Low Dose Aspirin EC] 81 mg PO DAILY 03/03/18 Budesonide/Formoterol Fumarate [Symbicort HFA 160-4.5 mcg Inhaler 6 gm] 2 puff IH BID 03/03/18 Gabapentin [Neurontin] 600 mg PO Q6 03/03/18 Oxycodone HCl [Oxycontin] 15 mg PO Q8 03/03/18 Simvastatin [Zocor 20 mg Tablet] 20 mg PO QHS 03/03/18 Tiotropium [place] [Spiriva Respimat] 2 puff IH DAILY 03/03/18 Labs- All tests 24 hr 04/10/18 04/10/18 04/10/18 00:17 04:39 04:39 WBC RBC Hgb Hct MCV MCH MCHC RDW Plt Count Total Counted Seg Neutrophils % Seg Neuts % (Manual) Band Neutrophils % Lymphocytes % Lymphocytes % (Manual) Monocytes % Monocytes % (Manual) Eosinophils % Eosinophils % (Manual) Basophils % Basophils % (Manual) Absolute Neutrophils Abs Neuts (Manual) Absolute Lymphocytes Abs Lymphs (Manual) Absolute Monocytes Abs Monocytes (Manual) Absolute Eosinophils Absolute Eos (Manual) Absolute Basophils Abs Basophils (Manual) Toxic Granulation Platelet Comment Polychromasia Anisocytosis Carbonic Acid 1.74 H HCO3/H2CO3 Ratio 19:1 ABG pH 7.38 ABG pCO2 57.9 H ABG pO2 98.2 ABG HCO3 33.4 H ABG Total CO2 35.2 H ABG O2 Saturation 97.2 ABG Base Excess 7.3 FiO2 55% Sodium 137.1 Potassium 4.4 Chloride 97 L Carbon Dioxide 32 H Anion Gap 8 BUN 22 H Creatinine 1.21 Est GFR ( Amer) > 60 Est GFR (Non-Af Amer) > 60 Glucose 168 H POC Glucose 247 H Calcium 7.3 L Magnesium 1.8 TSH Free T4 Free T3 pg/mL Blood Type Blood Type Confirm Antibody Screen Crossmatch 04/10/18 04/10/18 04/10/18 04:39 04:39 10:44 WBC 3.5 L RBC 2.79 L Hgb 7.3 L Hct 22.9 L MCV 82 MCH 26.0 L MCHC 31.7 L RDW 21.0 H Plt Count 183 Total Counted 100 Seg Neutrophils % Not Reportable Seg Neuts % (Manual) 70 Band Neutrophils % 9 H Lymphocytes % Not Reportable Lymphocytes % (Manual) 7 L Monocytes % Not Reportable Monocytes % (Manual) 12 Eosinophils % Not Reportable Eosinophils % (Manual) 2 Basophils % Not Reportable Basophils % (Manual) 0 Absolute Neutrophils Not Reportable Abs Neuts (Manual) 2.8 Absolute Lymphocytes Not Reportable Abs Lymphs (Manual) 0.2 L Absolute Monocytes Not Reportable Abs Monocytes (Manual) 0.4 Absolute Eosinophils Not Reportable Absolute Eos (Manual) 0.1 Absolute Basophils Not Reportable Abs Basophils (Manual) 0.0 Toxic Granulation SLIGHT Platelet Comment ADEQUATE Polychromasia SLIGHT Anisocytosis 3+ Carbonic Acid HCO3/H2CO3 Ratio ABG pH ABG pCO2 ABG pO2 ABG HCO3 ABG Total CO2 ABG O2 Saturation ABG Base Excess FiO2 Sodium Potassium Chloride Carbon Dioxide Anion Gap BUN Creatinine Est GFR ( Amer) Est GFR (Non-Af Amer) Glucose POC Glucose Calcium Magnesium TSH 1.43 Free T4 1.31 Free T3 pg/mL 2.83 Blood Type O NEGATIVE Blood Type Confirm Antibody Screen NEGATIVE Crossmatch See Detail 04/10/18 04/10/18 04/10/18 11:50 12:17 18:22 WBC RBC Hgb Hct MCV MCH MCHC RDW Plt Count Total Counted Seg Neutrophils % Seg Neuts % (Manual) Band Neutrophils % Lymphocytes % Lymphocytes % (Manual) Monocytes % Monocytes % (Manual) Eosinophils % Eosinophils % (Manual) Basophils % Basophils % (Manual) Absolute Neutrophils Abs Neuts (Manual) Absolute Lymphocytes Abs Lymphs (Manual) Absolute Monocytes Abs Monocytes (Manual) Absolute Eosinophils Absolute Eos (Manual) Absolute Basophils Abs Basophils (Manual) Toxic Granulation Platelet Comment Polychromasia Anisocytosis Carbonic Acid HCO3/H2CO3 Ratio ABG pH ABG pCO2 ABG pO2 ABG HCO3 ABG Total CO2 ABG O2 Saturation ABG Base Excess FiO2 Sodium Potassium Chloride Carbon Dioxide Anion Gap BUN Creatinine Est GFR ( Amer) Est GFR (Non-Af Amer) Glucose POC Glucose 174 H 167 H Calcium Magnesium TSH Free T4 Free T3 pg/mL Blood Type Blood Type Confirm O NEGATIVE Antibody Screen Crossmatch Chest X-Ray 04/08/18 21:32 IMPRESSION: Cardiomegaly with mild pulmonary vascular congestion and suspected small bibasilar effusions copyright 2010 [employer]- All Rights Reserved Chest X-Ray 04/09/18 00:00 IMPRESSION: Interval intubation and placement of an enteric tube. Stable cardiomegaly copyright 2010 [employer]- All Rights Reserved Chest X-Ray 04/09/18 00:00 IMPRESSION: Interval placement of a right chest vascular catheter, tip projecting in the vicinity of the right brachiocephalic vein. Correlate for venous return. Otherwise stable findings on AP radiograph that excludes the bilateral lung bases. Chest X-Ray 04/09/18 01:32 IMPRESSION: Improvement in mild pulmonary vascular congestion. Stable cardiomegaly copyright 2010 [employer]- All Rights Reserved Chest X-Ray 04/09/18 08:00 IMPRESSION: Pulmonary vascular congestion with alveolar and interstitial infiltrates at both bases likely pulmonary edema. Pneumonia could not be excluded. Chest X-Ray 04/10/18 06:00 IMPRESSION: 1. Improving aeration in the right perihilar region although there is persistent airspace disease in the right lower lobe. 2. Stable airspace consolidation in the left inferior hemithorax. 3. Stable prominence of the cardiac silhouette. 4. The tip of the right subclavian central venous catheter has migrated and now terminates in the region of the brachiocephalic vein. Remaining life support lines and tubes are grossly stable. IMPRESSION/recommendation 1. Recurrence of paroxysmal atrial flutter with rapid ventricular response. At present patient sinus tachycardia. We will start the patient on a Cardizem drip at 5 mg/h. We will watch the patient's blood pressure. 2. Septic shock most likely secondary to his pneumonia and acute exacerbation of Cipro COPD: Continue the patient on levo fed, and try to wean the patient down to off of the Levophed. Continue antibiotics. Continue ventilatory support. 3. Acute on chronic respiratory failure: Continue antibiotics and ventilatory support and oxygen. Continue respiratory treatments. 4. Pneumonia: Continue antibiotics. 5. Acute exacerbation of COPD: Continue current treatment 4. Hypertension: Blood pressure well controlled. 6. Coronary artery disease: At present no evidence of anginal symptoms. 7.. 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 8. Hypertension: Patient was hypotensive requiring inotropes. At present blood pressure is good but the patient still on Levophed infusion. 9.. History of diabetes mellitus type 2 insulin-dependent. Continue insulin and monitor blood sugar and adjust insulin dosage as per blood sugar. 10.. Tobacco abuse: Tobacco cessation counseling given. 3 minutes spent on this. 11. Moderate pulmonary hypertension: Discussed with the patient the importance of wearing BiPAP and tobacco cessation. 12. History of sleep apnea. Intolerant to CPAP. 13. RIGHT BUNDLE BRANCH PATTERN. With left axis deviation, with left anterior fascicular block. 14. Patient made DNR at this visit. Medications reviewed: Medications adjusted. Management plan discussed with attending physician on the case. Discussed with the patient's also. Medical decision making is of high complexity.
[2018-04-10] MEDS: DILTIAZEM HCL/D5W 125 MG/125 ML RTUINJ IV PRN (20:51)
[2018-04-11] MEDS: INSULIN LISPRO 100 UNIT/ML 3 ML VIAL SUBCUT SCH ×4 (00:11→18:04)
[2018-04-11 02:13] LABS: ABSOLUTE EOSINOPHILS # (AUTO) 0.1 10^3/uL (0.0-0.6); ABSOLUTE NEUT (AUTO) 2.3 10^3/uL (1.7-8.2); HEMATOCRIT 25.9 % (37.9-51.0); TOTAL CELLS COUNTED % (AUTO) 100 %
[2018-04-11 02:21] LABS: ABSOLUTE LYMPHOCYTES (AUTO) 0.5 10^3/uL (0.5-4.7); ABSOLUTE MONOCYTES (AUTO) 0.7 10^3/uL (0.1-1.4); BASOPHILS % (AUTO) 0.3 % (0-2); EOSINOPHILS % (AUTO) 2.7 % (0-6); HEMOGLOBIN 8.4 g/dL (13.5-17.0); LYMPHOCYTES % (AUTO) 13.1 % (13-45); MEAN CORPUSCULAR HEMOGLOBIN 26.7 pg (27.0-33.4); MEAN CORPUSCULAR HGB CONC 32.4 g/dL (32.0-36.0); MEAN CORPUSCULAR VOLUME 82 fl (80-97); MONOCYTES % (AUTO) 19.3 % (3-13); PLATELET COUNT 163 10^3/uL (150-450); RED BLOOD COUNT 3.15 10^6/uL (4.35-5.55); RED CELL DISTRIBUTION WIDTH 19.6 % (11.5-14.0); SEGMENTED NEUTROPHILS % (AUTO) 64.6 % (42-78); WHITE BLOOD COUNT 3.5 10^3/uL (4.0-10.5)
[2018-04-11] MEDS: IPRATROPIUM/ALBUTEROL 0.5-2.5 MG/3 ML AMPUL NEB SCH ×4 (03:02→19:21)
[2018-04-11] MEDS: HEPARIN SOD (PORCINE) 5,000 UNIT/ML 1 ML SYRINGE SUBCUT SCH ×3 (05:12→21:00)
[2018-04-11] MEDS: MIDAZOLAM HCL 50 MG/100 ML RTUINJ IV PRN ×3 (05:12→20:55)
[2018-04-11] MEDS: CEFEPIME 1 GM/D5W RTU 1 GM/50 ML RTUPB IV SCH ×2 (05:13→17:54)
[2018-04-11 05:54] LABS: ABSOLUTE EOSINOPHILS # (AUTO) 0.1 10^3/uL (0.0-0.6); ABSOLUTE LYMPHOCYTES (AUTO) 0.5 10^3/uL (0.5-4.7); ABSOLUTE MONOCYTES (AUTO) 0.6 10^3/uL (0.1-1.4); BASOPHILS % (AUTO) 0.7 % (0-2); EOSINOPHILS % (AUTO) 2.9 % (0-6); LYMPHOCYTES % (AUTO) 15.6 % (13-45); MEAN CORPUSCULAR HEMOGLOBIN 26.4 pg (27.0-33.4); MEAN CORPUSCULAR HGB CONC 32.2 g/dL (32.0-36.0); MEAN CORPUSCULAR VOLUME 82 fl (80-97); MONOCYTES % (AUTO) 18.9 % (3-13); PLATELET COUNT 158 10^3/uL (150-450); RED BLOOD COUNT 3.05 10^6/uL (4.35-5.55); RED CELL DISTRIBUTION WIDTH 20.1 % (11.5-14.0); SEGMENTED NEUTROPHILS % (AUTO) 61.9 % (42-78); TOTAL CELLS COUNTED % (AUTO) 100 %; WHITE BLOOD COUNT 3.2 10^3/uL (4.0-10.5)
[2018-04-11 05:55] LABS: ARTERIAL BLOOD BASE EXCESS 5.5 mmol/L; ARTERIAL BLOOD H2CO3 1.53 mmol/L (1.05-1.35); ARTERIAL BLOOD O2 SATURATION 94.8 % (94-98); ARTERIAL BLOOD PCO2 50.7 mmHg (35-45); ARTERIAL BLOOD PO2 74.3 mmHg (80-100); ARTERIAL BLOOD TOTAL CO2 32.5 mmol/L (23-27)
[2018-04-11] MEDS: VANCOMYCIN HCL 1,500 MG in DEXTROSE 5%-WATER 250 ML IV SCH (05:57)
[2018-04-11 06:12] LABS: ALANINE AMINOTRANSFERASE 34 U/L (21-72); ALKALINE PHOSPHATASE 119 U/L (38-126); ANION GAP 5 (5-19); ASPARTATE AMINO TRANSFERASE 34 U/L (17-59); BILIRUBIN,DIRECT 0.4 mg/dL (0.0-0.4); BILIRUBIN,TOTAL 0.8 mg/dL (0.2-1.3); BLOOD UREA NITROGEN 19 mg/dL (7-20); CALCIUM 7.4 mg/dL (8.4-10.2); CARBON DIOXIDE 32 mmol/L (22-30); CHLORIDE 100 mmol/L (98-107); GLUCOSE 134 mg/dL (75-110); POTASSIUM 4.3 mmol/L (3.6-5.0); TOTAL PROTEIN 3.7 g/dL (6.3-8.2)
[2018-04-11 06:16] LABS: VANCOMYCIN,TROUGH 28.5 ug/mL (5.0-20.0)
[2018-04-11] MEDS: ACETYLCYSTEINE 20% SOLN 800 MG/4 ML VIAL.NEB NEB SCH ×2 (08:51→19:21)
--- NOTE | 2018-04-11 08:54 | RADIOLOGY REPORT (SQ) ---
EXAM DESCRIPTION: CHEST SINGLE VIEW COMPLETED DATE/TIME: 04/11/2018 6:43 am REASON FOR STUDY: resp failure COMPARISON: 04/10/2018 NUMBER OF VIEWS: One view. TECHNIQUE: Single frontal radiographic image of the chest acquired. LIMITATIONS: None. FINDINGS: LUNGS AND PLEURA: Small pleural effusions and associated airspace disease. Improved aerat ion lateral to the right heart border. No pneumothorax. MEDIASTINUM AND HEART: Stable heart size and mediastinal structures. SUPPORT DEVICES: Appropriate location without change. BONY STRUCTURES: No acute findings. HARDWARE: None. OTHER: No other significant finding. IMPRESSION: Slight improvement. No pneumothorax. Reading location - IP/workstation name: [id number]
[2018-04-11] MEDS ORDERED: DILTIAZEM HCL 120 MG CAP.SR.24H PO ONE (09:11)
[2018-04-11] MEDS ORDERED: DILTIAZEM HCL 60 MG TABLET ONE (10:32)
[2018-04-11] MEDS: PANTOPRAZOLE SODIUM 40 MG VIAL IV SCH ×2 (10:39→21:03)
[2018-04-11] MEDS: DIGOXIN 0.25 MG TABLET PO SCH (10:39)
[2018-04-11] MEDS: ASPIRIN 81 MG TABLET, ENT COATED PO SCH ×2 (10:40→11:00)
[2018-04-11] MEDS: NORMAL SALINE 1000 ML 1,000 ML IV PRN ×2 (10:43→20:55)
[2018-04-11] MEDS ORDERED: DILTIAZEM HCL 60 MG TABLET NG SCH (11:00)
[2018-04-11 11:05] LABS: VANCOMYCIN,TROUGH 35.1 ug/mL (5.0-20.0)
--- NOTE | 2018-04-11 14:34 | PDOC PROGRESS REPORT ---
Subjective Progress Note for:: 04/11/18 Subjective:: Patient remained intubated. His heart rate is controlled and his blood pressure is within normal limits. Patient also able to produce adequate urine. I discontinued the Cardizem drip and switch him to p.o. Cardizem 60 mg twice daily. Reason For Visit: ACUTE RESPIRATORY FAILURE WITH HYPOXIA Physical Exam Vital Signs: Temp Pulse Resp BP Pulse Ox 98.1 F 74 15 137/60 H 97 04/11/18 12:00 04/11/18 14:00 04/11/18 14:00 04/11/18 14:00 04/11/18 14:00 Intake & Output 04/10/18 04/11/18 04/12/18 06:59 06:59 06:59 Intake Total 2222 4925 445 Output Total 415 2041 690 Balance 1807 9484 -245 Weight 123.7 kg 126.7 kg General appearance: PRESENT: no acute distress Head exam: PRESENT: atraumatic Eye exam: PRESENT: conjunctiva pink Neck exam: ABSENT: carotid bruit, JVD, lymphadenopathy, thyromegaly Respiratory exam: PRESENT: clear to auscultation [place]. ABSENT: rales, rhonchi, wheezes Cardiovascular exam: PRESENT: RRR GI/Abdominal exam: PRESENT: normal bowel sounds, soft. ABSENT: distended, guarding, mass, organolmegaly, rebound, tenderness Results Laboratory Results: 04/11/18 05:45 04/11/18 05:45 04/10/18 04/11/18 04/11/18 10:44 01:59 05:45 WBC 3.5 L 3.2 L RBC 3.15 L 3.05 L Hgb 8.4 L 8.0 L Hct 25.9 L 25.0 L MCV 82 82 MCH 26.7 L 26.4 L MCHC 32.4 32.2 RDW 19.6 H 20.1 H Plt Count 163 158 Seg Neutrophils % 64.6 61.9 Lymphocytes % 13.1 15.6 Monocytes % 19.3 H 18.9 H Eosinophils % 2.7 2.9 Basophils % 0.3 0.7 Absolute Neutrophils 2.3 2.0 Absolute Lymphocytes 0.5 0.5 Absolute Monocytes 0.7 0.6 Absolute Eosinophils 0.1 0.1 Absolute Basophils 0.0 0.0 Carbonic Acid HCO3/H2CO3 Ratio ABG pH ABG pCO2 ABG pO2 ABG HCO3 ABG O2 Saturation ABG Base Excess FiO2 Sodium Potassium Chloride Carbon Dioxide Anion Gap BUN Creatinine Est GFR ( Amer) Est GFR (Non-Af Amer) Glucose Calcium Magnesium Total Bilirubin AST ALT Alkaline Phosphatase Total Protein Albumin Blood Type O NEGATIVE Antibody Screen NEGATIVE 04/11/18 04/11/18 05:45 05:45 WBC RBC Hgb Hct MCV MCH MCHC RDW Plt Count Seg Neutrophils % Lymphocytes % Monocytes % Eosinophils % Basophils % Absolute Neutrophils Absolute Lymphocytes Absolute Monocytes Absolute Eosinophils Absolute Basophils Carbonic Acid 1.53 H HCO3/H2CO3 Ratio 20:1 ABG pH 7.40 ABG pCO2 50.7 H ABG pO2 74.3 L ABG HCO3 31.0 H ABG O2 Saturation 94.8 ABG Base Excess 5.5 FiO2 55% Sodium 137.0 Potassium 4.3 Chloride 100 Carbon Dioxide 32 H Anion Gap 5 BUN 19 Creatinine 1.04 Est GFR ( Amer) > 60 Est GFR (Non-Af Amer) > 60 Glucose 134 H Calcium 7.4 L Magnesium 1.8 Total Bilirubin 0.8 AST 34 ALT 34 Alkaline Phosphatase 119 Total Protein 3.7 L Albumin 2.0 L Blood Type Antibody Screen 04/09/18 00:08 Catheterized Urine Urine Culture - Final Proteus Mirabilis 04/08/18 04/08/18 04/09/18 21:58 21:58 04:15 Creatine Kinase < 20 L CK-MB (CK-2) Troponin I 0.038 NT-Pro-B Natriuret Pep 5370 H 04/09/18 04/09/18 04/09/18 04:15 10:44 10:44 Creatine Kinase < 20 L CK-MB (CK-2) 1.06 0.64 Troponin I 0.034 0.046 NT-Pro-B Natriuret Pep 04/09/18 04/09/18 15:50 15:50 Creatine Kinase 30 L CK-MB (CK-2) 0.45 Troponin I 0.050 NT-Pro-B Natriuret Pep Impressions: Chest X-Ray 04/11/18 06:00 IMPRESSION: Slight improvement. No pneumothorax. Assessment & Plan - Diagnosis (1) Acute respiratory failure with hypoxia and hypercapnia Is this a current diagnosis for this admission?: Yes Plan: Patient has been on mechanical ventilation. Dr. Finney has been following this patient. (2) Pneumonia Is this a current diagnosis for this admission?: Yes Plan: Continue empiric triple antibiotics. (3) Chronic atrial fibrillation with RVR Is this a current diagnosis for this admission?: Yes Plan: Now rate controlled. (4) Type 2 diabetes mellitus Is this a current diagnosis for this admission?: Yes Plan: Continue current regimen (5) COPD (chronic obstructive pulmonary disease) Qualifiers: Emphysema type: unspecified Is this a current diagnosis for this admission?: Yes Plan: Continue bronchodilators (6) Acute on chronic systolic CHF (congestive heart failure) Is this a current diagnosis for this admission?: Yes Plan: We will cautiously diurese him. (7) Morbid obesity Is this a current diagnosis for this admission?: Yes Plan: I would encourage patient to do lifestyle modification
[2018-04-11] MEDS ORDERED: DEXTROSE 5%-WATER 250 ML with NOREPINEPHRINE BITARTRATE 4 MG IV PRN ×2 (17:13)
--- NOTE | 2018-04-11 17:30 | PDOC CONSULTATION ---
Consultation Consult Date: 04/09/18 Attending physician:: RIYA MERCADO Consult reason:: resp failure/aspiration /afib/RVR History of Present Illness Admission Date/PCP: 04/09/18 04:24 HILARIA ALFARO MD History of Present Illness: THEODORE SON is a 67 year old male,Currently intubated and sedated was admitted was admitted from the emergency room and had to be intubated for shortness of breath at which time he was identified he had A. fib with RVR he recently was discharged from For treatment of A. fib with RVR as well as pneumonia. Past Medical History Cardiac Medical History: Reports: Congestive Heart Failure, Hyperlipidema, Hypertension Denies: Myocardial Infarction Pulmonary Medical History: Reports: Chronic Obstructive Pulmonary Disease (COPD) Denies: Asthma - ? EENT Medical History: Reports: None Neurological Medical History: Denies: Multiple Sclerosis, Seizures Endocrine Medical History: Reports: Diabetes Mellitus Type 2, Obesity Denies: Diabetes Mellitus Type 1, Hyperthyroidism, Hypothyroidism Renal/ Medical History: Denies: Chronic Kidney Disease, Nephrolithiasis Malignancy Medical History: Reports: Lymphoma GI Medical History: Denies: Hepatitis, Hiatal Hernia Musculoskeltal Medical History: Reports: Arthritis Psychiatric Medical History: Denies: Alcohol Dependency, Substance Abuse, Tobacco Dependency Traumatic Medical History: Denies: Traumatic Brain Injury Hematology: Denies: Anemia, Sickle Cell Disease Infectious Medical History: Denies: HIV Past Surgical History Past Surgical History: Reports: Other - Neurosurgical removal of a spinal tumor Denies: Pacemaker Social History Information Source: [facility] Records Lives with: [place] Smoking Status: Former Smoker Passive smoke exposure as: Both Frequency of Alcohol Use: None Hx Recreational Drug Use: No Drugs: None Hx Prescription Drug Abuse: No Do you have pets?: No Have you had any respiratory illnesses as a child?: No Have you been exposed to any sick contacts recently?: No Have you travelled outside of [place] in the past 12 months?: No - Advance Directive Resuscitation Status: Do Not Resuscitate Family History Family History: CAD, COPD, DM, Hypertension, Malignancy Parental Family History Reviewed: No Children Family History Reviewed: No Sibling(s) Family History Reviewed.: No Medication/Allergy Home Medications: Albuterol Sulfate [Proair HFA Inhalation Aerosol 8.5 gm MDI] 2 puff IH Q4HP PRN 03/03/18 Aspirin [Adult Low Dose Aspirin EC] 81 mg PO DAILY 03/03/18 Budesonide/Formoterol Fumarate [Symbicort HFA 160-4.5 mcg Inhaler 6 gm] 2 puff IH BID 03/03/18 Gabapentin [Neurontin] 600 mg PO Q6 03/03/18 Oxycodone HCl [Oxycontin] 15 mg PO Q8 03/03/18 Simvastatin [Zocor 20 mg Tablet] 20 mg PO QHS 03/03/18 Tiotropium [place] [Spiriva Respimat] 2 puff IH DAILY 03/03/18 Digoxin 250 mcg PO DAILY 30 Days #30 tablet 03/29/18 Furosemide [Lasix 20 mg Tablet] 20 mg PO BID 30 Days #60 tablet 03/29/18 Insulin Glargine,Hum.rec.anlog [Lantus Insulin 100 Unit/1 ml 10 ml] 35 unit SUBCUT QAM 30 Days #3 unit 03/29/18 Insulin Lispro [Humalog Insulin (Lispro) 100 unit/mL] 10 unit SUBCUT AC 30 Days #3 unit 03/29/18 Metoprolol Succinate [Toprol Xl 50 mg Tab.sr] 50 mg PO Q12 30 Days #60 tab.sr.24h 03/29/18 Allergies/Adverse Reactions: No Known Allergies Allergy (Verified 01/20/17 12:59) Review of Systems ROS unobtainable: Due to endotracheal tube Physical Exam Vital Signs: Temp Pulse Resp BP Pulse Ox 96.1 F L 75 15 111/65 93 04/09/18 01:01 04/09/18 16:00 04/09/18 16:00 04/09/18 14:44 04/09/18 16:00 Intake & Output 04/08/18 04/09/18 04/10/18 06:59 06:59 06:59 Intake Total 223 749 Output Total 500 Balance -277 749 Weight 118.5 kg General appearance: PRESENT: no acute distress, disheveled, morbidly obese, well-developed, well-nourished. ABSENT: cooperative Head exam: PRESENT: atraumatic, normocephalic Eye exam: PRESENT: conjunctiva pale. ABSENT: EOMI, nystagmus Mouth exam: PRESENT: dry mucosa, neck supple, tongue midline, other - ET Neck exam: ABSENT: carotid bruit, JVD, lymphadenopathy, thyromegaly, tracheal deviation, tracheostomy Respiratory exam: PRESENT: decreased breath sounds, prolonged expiratory phas, rales, rhonchi, unlabored, wheezes Cardiovascular exam: PRESENT: RRR, +S1, +S2, tachycardia Pulses: PRESENT: normal radial pulses GI/Abdominal exam: PRESENT: soft. ABSENT: tenderness Gentrourinary exam: PRESENT: indwelling catheter Extremities exam: ABSENT: calf tenderness, clubbing, joint swelling Musculoskeletal exam: ABSENT: ambulatory, deformity, dislocation Neurological exam: ABSENT: awake Skin exam: PRESENT: dry, warm Results Laboratory Results: 04/09/18 10:44 04/08/18 21:58 04/08/18 04/08/18 04/08/18 21:58 21:58 21:58 WBC 4.1 RBC 3.10 L Hgb 8.2 L Hct 25.5 L MCV 82 MCH 26.4 L MCHC 32.1 RDW 21.1 H Plt Count 166 Seg Neutrophils % 75.0 Lymphocytes % 8.5 L Monocytes % 13.8 H Eosinophils % 2.5 Basophils % 0.2 Absolute Neutrophils 3.1 Absolute Lymphocytes 0.3 L Absolute Monocytes 0.6 Absolute Eosinophils 0.1 Absolute Basophils 0.0 VBG pH VBG pCO2 VBG HCO3 VBG Base Excess Sodium 136.7 L Potassium 4.3 Chloride 96 L Carbon Dioxide 34 H Anion Gap 7 BUN 15 Creatinine 0.71 Est GFR ( Amer) > 60 Est GFR (Non-Af Amer) > 60 Glucose 203 H Lactic Acid 0.8 Calcium 7.5 L Total Bilirubin 0.9 AST 17 ALT 20 L Alkaline Phosphatase 151 H Total Protein 4.6 L Albumin 2.6 L Urine Color Urine Appearance Urine pH Ur Specific [place] Urine Protein Urine Glucose (UA) Urine Ketones Urine Blood Urine Nitrite Ur Leukocyte Esterase Urine WBC (Auto) Urine RBC (Auto) 04/08/18 04/09/18 04/09/18 21:58 00:08 10:44 WBC 3.0 L RBC 3.39 L Hgb 8.8 L Hct 28.1 L MCV 83 MCH 25.9 L MCHC 31.2 L RDW 21.1 H Plt Count 213 Seg Neutrophils % 71.2 Lymphocytes % 7.8 L Monocytes % 18.8 H Eosinophils % 1.9 Basophils % 0.3 Absolute Neutrophils 2.1 Absolute Lymphocytes 0.2 L Absolute Monocytes 0.6 Absolute Eosinophils 0.1 Absolute Basophils 0.0 VBG pH 7.39 VBG pCO2 67.4 H* VBG HCO3 39.5 H VBG Base Excess 12.9 Sodium Potassium Chloride Carbon Dioxide Anion Gap BUN Creatinine Est GFR ( Amer) Est GFR (Non-Af Amer) Glucose Lactic Acid Calcium Total Bilirubin AST ALT Alkaline Phosphatase Total Protein Albumin Urine Color ALY Urine Appearance SLIGHTLY-CLOUDY Urine pH 5.0 Ur Specific [place] 1.017 Urine Protein 30 H Urine Glucose (UA) NEGATIVE Urine Ketones TRACE H Urine Blood NEGATIVE Urine Nitrite NEGATIVE Ur Leukocyte Esterase NEGATIVE Urine WBC (Auto) 2 Urine RBC (Auto) 0 04/08/18 04/08/18 04/09/18 21:58 21:58 04:15 Creatine Kinase < 20 L CK-MB (CK-2) Troponin I 0.038 NT-Pro-B Natriuret Pep 5370 H 04/09/18 04/09/18 04/09/18 04:15 10:44 10:44 Creatine Kinase < 20 L CK-MB (CK-2) 1.06 0.64 Troponin I 0.034 0.046 NT-Pro-B Natriuret Pep Impressions: Chest X-Ray 04/09/18 08:00 IMPRESSION: Pulmonary vascular congestion with alveolar and interstitial infiltrates at both bases likely pulmonary edema. Pneumonia could not be excluded. Assessment & Plan - Diagnosis (1) Acute respiratory failure with hypoxia and hypercapnia Is this a current diagnosis for this admission?: Yes Plan: Support with mechanical ventilation (2) Atrial fibrillation with rapid ventricular response Is this a current diagnosis for this admission?: Yes Plan: Cardizem drip digoxin (3) COPD (chronic obstructive pulmonary disease) Qualifiers: Emphysema type: unspecified Is this a current diagnosis for this admission?: Yes Plan: Continue current bronchodilator therapy - Time Total Critical Time (Minutes): 55
--- NOTE | 2018-04-11 17:36 | PDOC PROGRESS REPORT ---
Subjective Progress Note for:: 04/10/18 Subjective:: Remains intubated and sedated slightly improved Reason For Visit: ACUTE RESPIRATORY FAILURE WITH HYPOXIA Physical Exam Vital Signs: Temp Pulse Resp BP Pulse Ox 98.6 F 72 16 121/58 L 97 04/10/18 10:00 04/10/18 10:00 04/10/18 10:00 04/10/18 10:00 04/10/18 10:00 Intake & Output 04/09/18 04/10/18 04/11/18 06:59 06:59 06:59 Intake Total 223 2222 152 Output Total 500 415 121 Balance -277 1807 31 Weight 118.5 kg 123.7 kg General appearance: PRESENT: no acute distress, disheveled. ABSENT: cooperative Head exam: PRESENT: atraumatic, normocephalic Eye exam: PRESENT: conjunctiva pale. ABSENT: EOMI, nystagmus Mouth exam: PRESENT: dry mucosa, neck supple, tongue midline, other - ET Neck exam: ABSENT: carotid bruit, full ROM, JVD, lymphadenopathy, meningismus, tenderness, thyromegaly, tracheal deviation, tracheostomy, other Respiratory exam: PRESENT: decreased breath sounds, prolonged expiratory phas, rales, rhonchi, unlabored Cardiovascular exam: PRESENT: RRR, +S1, +S2 Pulses: PRESENT: normal radial pulses GI/Abdominal exam: PRESENT: soft. ABSENT: tenderness Gentrourinary exam: PRESENT: indwelling catheter Extremities exam: ABSENT: calf tenderness, clubbing, full ROM, joint swelling Musculoskeletal exam: ABSENT: ambulatory, deformity, dislocation Neurological exam: ABSENT: awake Skin exam: PRESENT: warm Results Laboratory Results: 04/10/18 04:39 04/10/18 04:39 04/09/18 04/09/18 04/10/18 10:44 16:59 04:39 WBC 3.0 L RBC 3.39 L Hgb 8.8 L Hct 28.1 L MCV 83 MCH 25.9 L MCHC 31.2 L RDW 21.1 H Plt Count 213 Seg Neutrophils % 71.2 Lymphocytes % 7.8 L Monocytes % 18.8 H Eosinophils % 1.9 Basophils % 0.3 Absolute Neutrophils 2.1 Absolute Lymphocytes 0.2 L Absolute Monocytes 0.6 Absolute Eosinophils 0.1 Absolute Basophils 0.0 Carbonic Acid 1.75 H 1.74 H HCO3/H2CO3 Ratio 15:1 19:1 ABG pH 7.30 L 7.38 ABG pCO2 58.3 H 57.9 H ABG pO2 75.2 L 98.2 ABG HCO3 27.9 H 33.4 H ABG O2 Saturation 93.4 L 97.2 ABG Base Excess 0.4 7.3 FiO2 55% 55% Sodium Potassium Chloride Carbon Dioxide Anion Gap BUN Creatinine Est GFR ( Amer) Est GFR (Non-Af Amer) Glucose Calcium Magnesium TSH Free T4 Free T3 pg/mL 04/10/18 04/10/18 04/10/18 04:39 04:39 04:39 WBC 3.5 L RBC 2.79 L Hgb 7.3 L Hct 22.9 L MCV 82 MCH 26.0 L MCHC 31.7 L RDW 21.0 H Plt Count 183 Seg Neutrophils % Not Reportable Lymphocytes % Not Reportable Monocytes % Not Reportable Eosinophils % Not Reportable Basophils % Not Reportable Absolute Neutrophils Not Reportable Absolute Lymphocytes Not Reportable Absolute Monocytes Not Reportable Absolute Eosinophils Not Reportable Absolute Basophils Not Reportable Carbonic Acid HCO3/H2CO3 Ratio ABG pH ABG pCO2 ABG pO2 ABG HCO3 ABG O2 Saturation ABG Base Excess FiO2 Sodium 137.1 Potassium 4.4 Chloride 97 L Carbon Dioxide 32 H Anion Gap 8 BUN 22 H Creatinine 1.21 Est GFR ( Amer) > 60 Est GFR (Non-Af Amer) > 60 Glucose 168 H Calcium 7.3 L Magnesium 1.8 TSH 1.43 Free T4 1.31 Free T3 pg/mL 2.83 04/08/18 04/08/18 04/09/18 21:58 21:58 04:15 Creatine Kinase < 20 L CK-MB (CK-2) Troponin I 0.038 NT-Pro-B Natriuret Pep 5370 H 04/09/18 04/09/18 04/09/18 04:15 10:44 10:44 Creatine Kinase < 20 L CK-MB (CK-2) 1.06 0.64 Troponin I 0.034 0.046 NT-Pro-B Natriuret Pep 04/09/18 04/09/18 15:50 15:50 Creatine Kinase 30 L CK-MB (CK-2) 0.45 Troponin I 0.050 NT-Pro-B Natriuret Pep Impressions: Chest X-Ray 04/10/18 06:00 IMPRESSION: 1. Improving aeration in the right perihilar region although there is persistent airspace disease in the right lower lobe. 2. Stable airspace consolidation in the left inferior hemithorax. 3. Stable prominence of the cardiac silhouette. 4. The tip of the right subclavian central venous catheter has migrated and now terminates in the region of the brachiocephalic vein. Remaining life support lines and tubes are grossly stable. Assessment & Plan - Diagnosis (1) Acute respiratory failure with hypoxia and hypercapnia Is this a current diagnosis for this admission?: Yes Plan: Support with mechanical ventilation (2) Atrial fibrillation with rapid ventricular response Is this a current diagnosis for this admission?: Yes Plan: Cardizem drip digoxin (3) COPD (chronic obstructive pulmonary disease) Qualifiers: Emphysema type: unspecified Is this a current diagnosis for this admission?: Yes Plan: Continue current bronchodilator therapy (4) Morbid obesity Is this a current diagnosis for this admission?: Yes Plan: nutritional consult - Time Total Critical Time (Minutes): 45
--- NOTE | 2018-04-11 17:41 | PDOC PROGRESS REPORT ---
Subjective Progress Note for:: 04/11/18 Subjective:: Remains intubated and sedated slightly improved Reason For Visit: ACUTE RESPIRATORY FAILURE WITH HYPOXIA Physical Exam Vital Signs: Temp Pulse Resp BP Pulse Ox 97.7 F 76 15 125/57 L 97 04/11/18 16:02 04/11/18 16:00 04/11/18 16:02 04/11/18 16:02 04/11/18 16:02 Intake & Output 04/10/18 04/11/18 04/12/18 06:59 06:59 06:59 Intake Total 2222 4925 445 Output Total 415 2041 710 Balance 1807 2884 -265 Weight 123.7 kg 126.7 kg General appearance: PRESENT: no acute distress, disheveled, morbidly obese. ABSENT: cooperative Head exam: PRESENT: atraumatic, normocephalic Eye exam: PRESENT: conjunctiva pale. ABSENT: EOMI, nystagmus Mouth exam: PRESENT: dry mucosa, neck supple, tongue midline, other - ET Neck exam: PRESENT: other. ABSENT: carotid bruit, full ROM, JVD, lymphadenopathy, meningismus, tenderness, thyromegaly, tracheal deviation, tracheostomy Respiratory exam: PRESENT: decreased breath sounds, prolonged expiratory phas, rales, rhonchi, unlabored, wheezes. ABSENT: retraction, stridor Cardiovascular exam: PRESENT: RRR, +S1, +S2 Pulses: PRESENT: normal radial pulses GI/Abdominal exam: PRESENT: soft. ABSENT: tenderness Gentrourinary exam: PRESENT: indwelling catheter Extremities exam: ABSENT: calf tenderness, clubbing, joint swelling, pedal edema Musculoskeletal exam: ABSENT: deformity, dislocation Neurological exam: ABSENT: awake Skin exam: PRESENT: dry, warm Results Laboratory Results: 04/11/18 05:45 04/11/18 05:45 04/10/18 04/11/18 04/11/18 10:44 01:59 05:45 WBC 3.5 L 3.2 L RBC 3.15 L 3.05 L Hgb 8.4 L 8.0 L Hct 25.9 L 25.0 L MCV 82 82 MCH 26.7 L 26.4 L MCHC 32.4 32.2 RDW 19.6 H 20.1 H Plt Count 163 158 Seg Neutrophils % 64.6 61.9 Lymphocytes % 13.1 15.6 Monocytes % 19.3 H 18.9 H Eosinophils % 2.7 2.9 Basophils % 0.3 0.7 Absolute Neutrophils 2.3 2.0 Absolute Lymphocytes 0.5 0.5 Absolute Monocytes 0.7 0.6 Absolute Eosinophils 0.1 0.1 Absolute Basophils 0.0 0.0 Carbonic Acid HCO3/H2CO3 Ratio ABG pH ABG pCO2 ABG pO2 ABG HCO3 ABG O2 Saturation ABG Base Excess FiO2 Sodium Potassium Chloride Carbon Dioxide Anion Gap BUN Creatinine Est GFR ( Amer) Est GFR (Non-Af Amer) Glucose Calcium Magnesium Total Bilirubin AST ALT Alkaline Phosphatase Total Protein Albumin Blood Type O NEGATIVE Antibody Screen NEGATIVE 04/11/18 04/11/18 05:45 05:45 WBC RBC Hgb Hct MCV MCH MCHC RDW Plt Count Seg Neutrophils % Lymphocytes % Monocytes % Eosinophils % Basophils % Absolute Neutrophils Absolute Lymphocytes Absolute Monocytes Absolute Eosinophils Absolute Basophils Carbonic Acid 1.53 H HCO3/H2CO3 Ratio 20:1 ABG pH 7.40 ABG pCO2 50.7 H ABG pO2 74.3 L ABG HCO3 31.0 H ABG O2 Saturation 94.8 ABG Base Excess 5.5 FiO2 55% Sodium 137.0 Potassium 4.3 Chloride 100 Carbon Dioxide 32 H Anion Gap 5 BUN 19 Creatinine 1.04 Est GFR ( Amer) > 60 Est GFR (Non-Af Amer) > 60 Glucose 134 H Calcium 7.4 L Magnesium 1.8 Total Bilirubin 0.8 AST 34 ALT 34 Alkaline Phosphatase 119 Total Protein 3.7 L Albumin 2.0 L Blood Type Antibody Screen 04/09/18 00:08 Catheterized Urine Urine Culture - Final Proteus Mirabilis 04/08/18 04/08/18 04/09/18 21:58 21:58 04:15 Creatine Kinase < 20 L CK-MB (CK-2) Troponin I 0.038 NT-Pro-B Natriuret Pep 5370 H 04/09/18 04/09/18 04/09/18 04:15 10:44 10:44 Creatine Kinase < 20 L CK-MB (CK-2) 1.06 0.64 Troponin I 0.034 0.046 NT-Pro-B Natriuret Pep 04/09/18 04/09/18 15:50 15:50 Creatine Kinase 30 L CK-MB (CK-2) 0.45 Troponin I 0.050 NT-Pro-B Natriuret Pep Impressions: Chest X-Ray 04/11/18 06:00 IMPRESSION: Slight improvement. No pneumothorax. Assessment & Plan - Diagnosis (1) Acute respiratory failure with hypoxia and hypercapnia Is this a current diagnosis for this admission?: Yes Plan: Support with mechanical ventilation (2) Atrial fibrillation with rapid ventricular response Is this a current diagnosis for this admission?: Yes Plan: Cardizem drip digoxin (3) COPD (chronic obstructive pulmonary disease) Qualifiers: Emphysema type: unspecified Is this a current diagnosis for this admission?: Yes Plan: Continue current bronchodilator therapy (4) Morbid obesity Is this a current diagnosis for this admission?: Yes Plan: nutritional consult - Time Total Critical Time (Minutes): 40
[2018-04-11] MEDS: LEVOFLOXACIN 750 MG/D5W RTU 750 MG/150 ML RTUPB IV SCH (17:53)
[2018-04-11] MEDS: METOPROLOL TARTRATE 25 MG TABLET PO SCH (17:54)
--- NOTE | 2018-04-11 20:40 | Progress Note ---
Provider Note Provider Note: CARDIOLOGY PROGRESS NOTE by Dr. Corina Foster on 04/11/2018 SUBJECTIVE: The patient is intubated and sedated. He is in atrial fibrillation with controlled ventricular response. He has right bundle branch block pattern on his EKG. There is no ventricular arrhythmia seen on the monitor. He has no fever. He is off the Levophed drip. He is also off the Cardizem drip. Would favor starting the patient on Toprol-XL rather than Cardizem in view of the patient's history of coronary artery disease, and reduced LV ejection fraction. PHYSICAL EXAMINATION: The patient is morbidly obese. He does not appear to be in any distress, he is intubated and sedated. Selected Entries 04/11/18 12:17 Temperature 98.1 F Heart Rate ( 75 Monitors) Respiratory 15 Rate Blood Pressure 106/51 L Blood Pressure 69 Mean O2 Sat by Pulse 96 Oximetry End-Tidal CO2 36 Concentration HEAD: Head is atraumatic and normocephalic. EYES: Pupils are equal round regular reactive to light accommodation. Extraocular movements are normal, there is no conjunctival pallor, and no scleral icterus. EARS: Tympanic membranes are intact external auditory canals are clear. NOSE: There is no inflammation of the nasal mucous membrane there is no deviated nasal septum. MOUTH: Mucous membranes of mouth and tongue are moist, there is no ulcers in the mouth or tongue, and no bleeding from the gums. THROAT: There is no redness of the oropharynx, no exudate seen. SKIN: There is no petechia or ecchymosis. The re is no rashes or lesions. NECK: Supple. There is no JVD. Carotids are equal there is no bruit. There is no lymphadenopathy. There is no goiter. Trachea central LUNGS: There is diminished air entry and prolonged expiration. Clear to auscultation bilaterally, no wheezes, rales, but there is diffuse rhonchi. On percussion there is hyperresonance although there is no chest wall tenderness HEART: S1 and S2 are heard. S1 is of variable intensity, there is no S3 or S4 gallops. There is a systolic murmur the left sternal border and the apex. There is no rub. ABDOMEN: Normoactive bowel sounds, soft, nontender, no masses, no rebound, no guarding. There is no hepatosplenomegaly. EXTREMITIES: Femorals are slightly diminished. There is no femoral bruits. Leg pulses are diminished. There is no pedal edema. There is no DVT or cellulitis. There is no cyanosis or clubbing. There is no calf tenderness. NEUROLOGICAL the patient is awake alert oriented 3 with no focal deficits. PSYCHIATRIC: The patient judgment and insight are intact his affect is normal. 04/11/18 04/11/18 04/11/18 05:45 05:45 05:45 WBC 3.2 L RBC 3.05 L Hgb 8.0 L Hct 25.0 L MCV 82 MCH 26.4 L MCHC 32.2 RDW 20.1 H Plt Count 158 Seg Neutrophils % 61.9 Carbonic Acid 1.53 H HCO3/H2CO3 Ratio 20:1 ABG pH 7.40 ABG pCO2 50.7 H ABG pO2 74.3 L ABG HCO3 31.0 H ABG Total CO2 32.5 H ABG O2 Saturation 94.8 ABG Base Excess 5.5 FiO2 55% Sodium 137.0 Potassium 4.3 Chloride 100 Carbon Dioxide 32 H BUN 19 Creatinine 1.04 Est GFR (Non-Af Amer) > 60 Glucose 134 H Calcium 7.4 L Magnesium 1.8 Total Bilirubin 0.8 Direct Bilirubin 0.4 Neonat Total Bilirubin Not Reportable Neonat Direct Bilirubin Not Reportable Neonat Indirect Bili Not Reportable AST 34 ALT 34 Alkaline Phosphatase 119 Total Protein 3.7 L Albumin 2.0 L Chest X-Ray 04/08/18 21:32 IMPRESSION: Cardiomegaly with mild pulmonary vascular congestion and suspected small bibasilar effusions copyright 2010 [employer]- All Rights Reserved Chest X-Ray 04/09/18 00:00 IMPRESSION: Interval intubation and placement of an enteric tube. Stable cardiomegaly copyright 2010 [employer]- All Rights Reserved Chest X-Ray 04/09/18 00:00 IMPRESSION: Interval placement of a right chest vascular catheter, tip projecting in the vicinity of the right brachiocephalic vein. Correlate for venous return. Otherwise stable findings on AP radiograph that excludes the bilateral lung bases. Chest X-Ray 04/09/18 01:32 IMPRESSION: Improvement in mild pulmonary vascular congestion. Stable cardiomegaly copyright 2010 [employer]- All Rights Reserved Chest X-Ray 04/09/18 08:00 IMPRESSION: Pulmonary vascular congestion with alveolar and interstitial infiltrates at both bases likely pulmonary edema. Pneumonia could not be excluded. Chest X-Ray 04/10/18 06:00 IMPRESSION: 1. Improving aeration in the right perihilar region although there is persistent airspace disease in the right lower lobe. 2. Stable airspace consolidation in the left inferior hemithorax. 3. Stable prominence of the cardiac silhouette. 4. The tip of the right subclavian central venous catheter has migrated and now terminates in the region of the brachiocephalic vein. Remaining life support lines and tubes are grossly stable. Chest X-Ray 04/11/18 06:00 IMPRESSION: Slight improvement. No pneumothorax. IMPRESSION/recommendation 1. Recurrence of paroxysmal atrial flutter with rapid ventricular response. At present the ventricular response is controlled. The patient off the Cardizem drip. Will stop the patient's p.o. Cardizem and start the patient on Toprol-XL. 2. Septic shock most likely secondary to his pneumonia and acute exacerbation of Cipro COPD: This is resolved. The patient's blood pressure is now good with the patient being off levo fed. Continue antibiotics. Continue ventilatory support. 3. Acute on chronic respiratory failure: Continue antibiotics and ventilatory support and oxygen. Continue respiratory treatments. 4. Pneumonia: Continue antibiotics. Chest x-ray shows improvement. 5. Acute exacerbation of COPD: Continue current treatment 4. Hypertension: Blood pressure well controlled. 6. Coronary artery disease: At present no evidence of anginal symptoms. 7.. 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 8. Hypertension: Patient was hypotensive requiring inotropes. At present blood pressure is good with the patient off levo fed. 9.. History of diabetes mellitus type 2 insulin-dependent. Continue insulin and monitor blood sugar and adjust insulin dosage as per blood sugar. 10.. Tobacco abuse: 11. Moderate pulmonary hypertension: 12. History of sleep apnea. Intolerant to CPAP. 13. RIGHT BUNDLE BRANCH PATTERN. With left axis deviation, with left anterior fascicular block. 14. Patient made DNR at this visit. Medications reviewed: Medications adjusted. Management plan discussed with attending physician on the case. Discussed with the patient's also. Medical decision making is of high complexity.
[2018-04-11] MEDS ORDERED: DILTIAZEM HCL 60 MG TABLET PO SCH (22:00)
[2018-04-12] MEDS: INSULIN LISPRO 100 UNIT/ML 3 ML VIAL SUBCUT SCH ×5 (00:14→23:31)
[2018-04-12] MEDS: IPRATROPIUM/ALBUTEROL 0.5-2.5 MG/3 ML AMPUL NEB SCH ×4 (02:32→19:47)
[2018-04-12] MEDS: MIDAZOLAM HCL 50 MG/100 ML RTUINJ IV PRN ×3 (04:10→20:37)
[2018-04-12 04:22] LABS: ABSOLUTE EOSINOPHILS # (AUTO) 0.1 10^3/uL (0.0-0.6); ABSOLUTE LYMPHOCYTES (AUTO) 0.6 10^3/uL (0.5-4.7); ABSOLUTE MONOCYTES (AUTO) 0.5 10^3/uL (0.1-1.4); ABSOLUTE NEUT (AUTO) 1.7 10^3/uL (1.7-8.2); BASOPHILS % (AUTO) 0.7 % (0-2); EOSINOPHILS % (AUTO) 4.6 % (0-6); HEMOGLOBIN 8.3 g/dL (13.5-17.0); LYMPHOCYTES % (AUTO) 20.5 % (13-45); MEAN CORPUSCULAR HEMOGLOBIN 26.3 pg (27.0-33.4); MEAN CORPUSCULAR HGB CONC 31.9 g/dL (32.0-36.0); MEAN CORPUSCULAR VOLUME 82 fl (80-97); MONOCYTES % (AUTO) 15.8 % (3-13); PLATELET COUNT 158 10^3/uL (150-450); RED BLOOD COUNT 3.16 10^6/uL (4.35-5.55); RED CELL DISTRIBUTION WIDTH 20.6 % (11.5-14.0); SEGMENTED NEUTROPHILS % (AUTO) 58.4 % (42-78); TOTAL CELLS COUNTED % (AUTO) 100 %
[2018-04-12 04:28] LABS: ARTERIAL BLOOD BASE EXCESS 4.9 mmol/L; ARTERIAL BLOOD H2CO3 1.48 mmol/L (1.05-1.35); ARTERIAL BLOOD HCO3 30.2 mmol/L (20-24); ARTERIAL BLOOD O2 SATURATION 91.3 % (94-98); ARTERIAL BLOOD PCO2 49.1 mmHg (35-45); ARTERIAL BLOOD PH 7.41 (7.35-7.45); ARTERIAL BLOOD PO2 61.1 mmHg (80-100); ARTERIAL BLOOD TOTAL CO2 31.7 mmol/L (23-27)
[2018-04-12 04:29] LABS: ARTERIAL BLOOD FIO2 40%
[2018-04-12 04:49] LABS: ANION GAP 5 (5-19); BLOOD UREA NITROGEN 16 mg/dL (7-20); CALCIUM 7.3 mg/dL (8.4-10.2); CARBON DIOXIDE 30 mmol/L (22-30); CHLORIDE 105 mmol/L (98-107); GLUCOSE 103 mg/dL (75-110); SODIUM 139.9 mmol/L (137-145)
[2018-04-12] MEDS: HEPARIN SOD (PORCINE) 5,000 UNIT/ML 1 ML SYRINGE SUBCUT SCH ×3 (05:30→22:26)
[2018-04-12] MEDS: METOPROLOL TARTRATE 25 MG TABLET PO SCH ×2 (05:31→17:48)
[2018-04-12] MEDS: CEFEPIME 1 GM/D5W RTU 1 GM/50 ML RTUPB IV SCH ×2 (05:32→17:48)
[2018-04-12] MEDS: NORMAL SALINE 1000 ML 1,000 ML IV PRN (08:03)
[2018-04-12] MEDS: ACETYLCYSTEINE 20% SOLN 800 MG/4 ML VIAL.NEB NEB SCH ×2 (08:34→19:47)
--- NOTE | 2018-04-12 08:38 | RADIOLOGY REPORT (SQ) ---
EXAM DESCRIPTION: CHEST SINGLE VIEW COMPLETED DATE/TIME: 04/12/2018 7:09 am REASON FOR STUDY: ett/ogt/vent/pna COMPARISON: 04/11/2018 EXAM PARAMETERS: NUMBER OF VIEWS: One view. TECHNIQUE: Single frontal radiographic view of the chest acquired. RADIATION DOSE: NA LIMITATIONS: None. FINDINGS: LUNGS AND PLEURA: Interval progression of the pleural effusion on the left, since the pre vious examination. Small right pleural effusion, unchanged finding. Bilateral perihilar airspace di sease, unchanged findings. No pneumothorax. MEDIASTINUM AND HILAR STRUCTURES: No masses. Contour normal. HEART AND VASCULAR STRUCTURES: Heart normal in size. Normal vasculature. BONES: Partially visualized subluxation suggested at the left glenohumeral joint, unchanged finding. HARDWARE: Support tubes and lines are unchanged. OTHER: No other significant finding. IMPRESSION: 1. No significant interval change since the prior study dated 04/11/2018 in the appearan ce of the bilateral perihilar airspace disease. 2. Interval increase in size of the left pleural effusion. Small right pleural effusion, unchanged. TECHNICAL DOCUMENTATION: JOB ID: [id number] [employer]- All Rights Reserved Reading location - IP/workstation name: [email or web address]
[2018-04-12] MEDS: ASPIRIN 81 MG TABLET, ENT COATED PO SCH (09:20)
[2018-04-12] MEDS: DIGOXIN 0.25 MG TABLET PO SCH (09:20)
[2018-04-12] MEDS: PANTOPRAZOLE SODIUM 40 MG VIAL IV SCH ×2 (09:20→22:24)
[2018-04-12] MEDS ORDERED: DILTIAZEM HCL 120 MG CAP.SR.24H PO SCH (10:00)
[2018-04-12 10:48] LABS: VANCOMYCIN,TROUGH 19.6 ug/mL (5.0-20.0)
[2018-04-12] MEDS: VANCOMYCIN HCL 1,500 MG in DEXTROSE 5%-WATER 250 ML IV SCH ×2 (11:58→22:27)
--- NOTE | 2018-04-12 15:54 | PDOC PROGRESS REPORT ---
Subjective Progress Note for:: 04/12/18 Subjective:: Patient remained intubated. No significant change overnight. His vitals are okay except his blood pressure is on the lower side. Reason For Visit: ACUTE RESPIRATORY FAILURE WITH HYPOXIA Physical Exam Vital Signs: Temp Pulse Resp BP Pulse Ox 98.1 F 63 11 L 97/57 L 98 04/12/18 14:01 04/12/18 14:40 04/12/18 14:40 04/12/18 14:01 04/12/18 14:40 Intake & Output 04/11/18 04/12/18 04/13/18 06:59 06:59 06:59 Intake Total 4925 2845 350 Output Total 2041 2535 300 Balance 2884 310 50 Weight 126.7 kg 125.9 kg 125.9 kg General appearance: PRESENT: no acute distress Neck exam: ABSENT: carotid bruit, JVD, lymphadenopathy, thyromegaly Respiratory exam: PRESENT: crackles. ABSENT: rales, rhonchi, wheezes Cardiovascular exam: PRESENT: RRR. ABSENT: diastolic murmur, rubs, systolic murmur GI/Abdominal exam: PRESENT: normal bowel sounds, soft. ABSENT: distended, guarding, mass, organolmegaly, rebound, tenderness Neurological exam: PRESENT: alert, awake Psychiatric exam: PRESENT: normal mood Results Laboratory Results: 04/12/18 04:08 04/12/18 04:08 04/12/18 04/12/18 04/12/18 04:08 04:08 04:08 WBC 3.0 L RBC 3.16 L Hgb 8.3 L Hct 26.0 L MCV 82 MCH 26.3 L MCHC 31.9 L RDW 20.6 H Plt Count 158 Seg Neutrophils % 58.4 Lymphocytes % 20.5 Monocytes % 15.8 H Eosinophils % 4.6 Basophils % 0.7 Absolute Neutrophils 1.7 Absolute Lymphocytes 0.6 Absolute Monocytes 0.5 Absolute Eosinophils 0.1 Absolute Basophils 0.0 Carbonic Acid 1.48 H HCO3/H2CO3 Ratio 20:1 ABG pH 7.41 ABG pCO2 49.1 H ABG pO2 61.1 L ABG HCO3 30.2 H ABG O2 Saturation 91.3 L ABG Base Excess 4.9 FiO2 40% Sodium 139.9 Potassium 4.0 Chloride 105 Carbon Dioxide 30 Anion Gap 5 BUN 16 Creatinine 1.07 Est GFR ( Amer) > 60 Est GFR (Non-Af Amer) > 60 Glucose 103 Calcium 7.3 L Magnesium 2.0 04/09/18 21:25 Tracheal Aspirate Gram Stain - Final 04/09/18 21:25 Tracheal Aspirate Sputum Culture - Final Pseudomonas Aeruginosa Normal Brittny Absent 04/08/18 04/08/18 04/09/18 21:58 21:58 04:15 Creatine Kinase < 20 L CK-MB (CK-2) Troponin I 0.038 NT-Pro-B Natriuret Pep 5370 H 04/09/18 04/09/18 04/09/18 04:15 10:44 10:44 Creatine Kinase < 20 L CK-MB (CK-2) 1.06 0.64 Troponin I 0.034 0.046 NT-Pro-B Natriuret Pep 04/09/18 04/09/18 15:50 15:50 Creatine Kinase 30 L CK-MB (CK-2) 0.45 Troponin I 0.050 NT-Pro-B Natriuret Pep Impressions: Chest X-Ray 04/12/18 06:00 IMPRESSION: 1. No significant interval change since the prior study dated 04/11/2018 in the appearance of the bilateral perihilar airspace disease. 2. Interval increase in size of the left pleural effusion. Small right pleural effusion, unchanged. Assessment & Plan - Diagnosis (1) Acute respiratory failure with hypoxia and hypercapnia Is this a current diagnosis for this admission?: Yes Plan: Patient has been on mechanical ventilation. Dr. Finney has been following this patient. (2) Pneumonia Is this a current diagnosis for this admission?: Yes Plan: Continue empiric triple antibiotics. (3) Chronic atrial fibrillation with RVR Is this a current diagnosis for this admission?: Yes Plan: Now rate controlled. (4) Type 2 diabetes mellitus Is this a current diagnosis for this admission?: Yes Plan: Continue current regimen (5) COPD (chronic obstructive pulmonary disease) Qualifiers: Emphysema type: unspecified Is this a current diagnosis for this admission?: Yes Plan: Continue bronchodilators (6) Acute on chronic systolic CHF (congestive heart failure) Is this a current diagnosis for this admission?: Yes Plan: We will cautiously diurese him. (7) Morbid obesity Is this a current diagnosis for this admission?: Yes Plan: I would encourage patient to do lifestyle modification
[2018-04-12] MEDS: LEVOFLOXACIN 750 MG/D5W RTU 750 MG/150 ML RTUPB IV SCH (17:48)
--- NOTE | 2018-04-12 21:39 | Progress Note ---
Provider Note Provider Note: Of cardiology PROGRESS NOTE by Dr. Corina Moura on 04/12/2018. SUBJECTIVE: The patient remains intubated and sedated. The patient remains in sinus rhythm, with the monitor showing right bundle branch block pattern. There is no ventricular arrhythmia seen. PHYSICAL EXAMINATION: The patient is morbidly obese. He appears to be in no acute distress. He is well sedated. Selected Entries 04/12/18 04/12/18 04/12/18 12:00 12:01 13:00 Temperature 97.9 F Heart Rate ( 66 Monitors) Respiratory 20 Rate Blood Pressure 105/56 L Blood Pressure 72 Mean O2 Sat by Pulse 100 99 Oximetry Oxygen Delivery Mechanical Method ( Ventilator includes room air) End-Tidal CO2 36 34 34 Concentration Premature 3 Ventricular Counted Beats 04/12/18 13:01 Temperature Heart Rate ( Monitors) Respiratory Rate Blood Pressure Blood Pressure Mean O2 Sat by Pulse Oximetry Oxygen Delivery Method ( includes room air) End-Tidal CO2 36 Concentration Premature Ventricular Counted Beats HEAD: Head is atraumatic and normocephalic. EYES: Pupils are equal round regular reactive to light accommodation. Extraocular movements are normal, there is no conjunctival pallor, and no scleral icterus. EARS: Tympanic membranes are intact external auditory canals are clear. NOSE: There is no inflammation of the nasal mucous membrane there is no deviated nasal septum. MOUTH: Mucous membranes of mouth and tongue are moist, there is no ulcers in the mouth or tongue, and no bleeding from the gums. THROAT: There is no redness of the oropharynx, no exudate seen. SKIN: There is no petechia or ecchymosis. T here is no rashes or lesions. NECK: Supple. There is no JVD. Carotids are equal there is no bruit. There is no lymphadenopathy. There is no goiter. Trachea central LUNGS: There is diminished air entry and prolonged expiration. Clear to auscultation bilaterally, no wheezes, rales, but there is diffuse rhonchi. On percussion there is hyperresonance although there is no chest wall tenderness HEART: S1 and S2 are heard. S1 is of variable intensity, there is no S3 or S4 gallops. There is a systolic murmur the left sternal border and the apex. There is no rub. ABDOMEN: Normoactive bowel sounds, soft, nontender, no masses, no rebound, no guarding. There is no hepatosplenomegaly. EXTREMITIES: Femorals are slightly diminished. There is no femoral bruits. Leg pulses are diminished. There is no pedal edema. There is no DVT or cellulitis. There is no cyanosis or clubbing. There is no calf tenderness. NEUROLOGICAL the patient is awake alert oriented 3 with no focal deficits. PSYCHIATRIC: The patient judgment and insight are intact his affect is normal. Labs- All tests 24 hr 04/12/18 04/12/18 04/12/18 00:03 04:08 04:08 WBC RBC Hgb Hct MCV MCH MCHC RDW Plt Count Seg Neutrophils % Lymphocytes % Monocytes % Eosinophils % Basophils % Absolute Neutrophils Absolute Lymphocytes Absolute Monocytes Absolute Eosinophils Absolute Basophils Carbonic Acid 1.48 H HCO3/H2CO3 Ratio 20:1 ABG pH 7.41 ABG pCO2 49.1 H ABG pO2 61.1 L ABG HCO3 30.2 H ABG Total CO2 31.7 H ABG O2 Saturation 91.3 L ABG Base Excess 4.9 FiO2 40% Sodium 139.9 Potassium 4.0 Chloride 105 Carbon Dioxide 30 Anion Gap 5 BUN 16 Creatinine 1.07 Est GFR ( Amer) > 60 Est GFR (Non-Af Amer) > 60 Glucose 103 POC Glucose 117 H Calcium 7.3 L Magnesium 2.0 Time Trough Drawn Vancomycin Trough 04/12/18 04/12/18 04/12/18 04:08 09:55 17:44 WBC 3.0 L RBC 3.16 L Hgb 8.3 L Hct 26.0 L MCV 82 MCH 26.3 L MCHC 31.9 L RDW 20.6 H Plt Count 158 Seg Neutrophils % 58.4 Lymphocytes % 20.5 Monocytes % 15.8 H Eosinophils % 4.6 Basophils % 0.7 Absolute Neutrophils 1.7 Absolute Lymphocytes 0.6 Absolute Monocytes 0.5 Absolute Eosinophils 0.1 Absolute Basophils 0.0 Carbonic Acid HCO3/H2CO3 Ratio ABG pH ABG pCO2 ABG pO2 ABG HCO3 ABG Total CO2 ABG O2 Saturation ABG Base Excess FiO2 Sodium Potassium Chloride Carbon Dioxide Anion Gap BUN Creatinine Est GFR ( Amer) Est GFR (Non-Af Amer) Glucose POC Glucose 135 H Calcium Magnesium Time Trough Drawn 0955 Vancomycin Trough 19.6 Chest X-Ray 04/08/18 21:32 IMPRESSION: Cardiomegaly with mild pulmonary vascular congestion and suspected small bibasilar effusions copyright 2010 [employer]- All Rights Reserved Chest X-Ray 04/09/18 00:00 IMPRESSION: Interval intubation and placement of an enteric tube. Stable cardiomegaly copyright 2010 [employer]- All Rights Reserved Chest X-Ray 04/09/18 00:00 IMPRESSION: Interval placement of a right chest vascular catheter, tip projecting in the vicinity of the right brachiocephalic vein. Correlate for venous return. Otherwise stable findings on AP radiograph that excludes the bilateral lung bases. Chest X-Ray 04/09/18 01:32 IMPRESSION: Improvement in mild pulmonary vascular congestion. Stable cardiomegaly copyright 2010 [employer]- All Rights Reserved Chest X-Ray 04/09/18 08:00 IMPRESSION: Pulmonary vascular congestion with alveolar and interstitial infiltrates at both bases likely pulmonary edema. Pneumonia could not be excluded. Chest X-Ray 04/10/18 06:00 IMPRESSION: 1. Improving aeration in the right perihilar region although there is persistent airspace disease in the right lower lobe. 2. Stable airspace consolidation in the left inferior hemithorax. 3. Stable prominence of the cardiac silhouette. 4. The tip of the right subclavian central venous catheter has migrated and now terminates in the region of the brachiocephalic vein. Remaining life support lines and tubes are grossly stable. Chest X-Ray 04/11/18 06:00 IMPRESSION: Slight improvement. No pneumothorax. Chest X-Ray 04/12/18 06:00 IMPRESSION: 1. No significant interval change since the prior study dated 04/11/2018 in the appearance of the bilateral perihilar airspace disease. 2. Interval increase in size of the left pleural effusion. Small right pleural effusion, unchanged. IMPRESSION/RECOMMENDATION: 1. Recurrence of paroxysmal atrial flutter with rapid ventricular response. The patient converted to sinus rhythm. At present the patient in sinus rhythm with controlled ventricular response. Continue the patient on metoprolol. 2. Septic shock most likely secondary to his pneumonia and acute exacerbation of Cipro COPD: This is resolved. Continue antibiotics. Continue ventilatory support. 3. Acute on chronic respiratory failure: Continue antibiotics and ventilatory support and oxygen. Continue respiratory treatments. 4. Pneumonia: Continue antibiotics. Chest x-ray shows improvement. 5. Acute exacerbation of COPD: Continue current treatment 4. Hypertension: Blood pressure well controlled. 6. Coronary artery disease: At present no evidence of anginal symptoms. 7.. 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 8. Hypertension: Patient was hypotensive requiring inotropes. At present blood pressure is good with the patient off levo fed. 9.. History of diabetes mellitus type 2 insulin-dependent. Continue insulin and monitor blood sugar and adjust insulin dosage as per blood sugar. 10.. Tobacco abuse: 11. Moderate pulmonary hypertension: 12. History of sleep apnea. Intolerant to CPAP. 13. RIGHT BUNDLE BRANCH PATTERN. With left axis deviation, with left anterior fascicular block. 14. Patient made DNR at this visit. Medications reviewed: Medications adjusted. Management plan discussed with attending physician on the case. Discussed with the patient's also. Medical decision making is of high complexity. 40 minutes spent on this patient with more than 50% of time spent in direct patient care.
[2018-04-13] MEDS: IPRATROPIUM/ALBUTEROL 0.5-2.5 MG/3 ML AMPUL NEB SCH ×4 (02:32→20:46)
[2018-04-13 05:05] LABS: ABSOLUTE EOSINOPHILS # (AUTO) 0.1 10^3/uL (0.0-0.6); ABSOLUTE LYMPHOCYTES (AUTO) 0.7 10^3/uL (0.5-4.7); ABSOLUTE MONOCYTES (AUTO) 0.5 10^3/uL (0.1-1.4); ABSOLUTE NEUT (AUTO) 2.8 10^3/uL (1.7-8.2); BASOPHILS % (AUTO) 0.6 % (0-2); EOSINOPHILS % (AUTO) 1.9 % (0-6); HEMOGLOBIN 8.5 g/dL (13.5-17.0); LYMPHOCYTES % (AUTO) 16.1 % (13-45); MEAN CORPUSCULAR HEMOGLOBIN 26.8 pg (27.0-33.4); MEAN CORPUSCULAR HGB CONC 32.6 g/dL (32.0-36.0); MEAN CORPUSCULAR VOLUME 82 fl (80-97); MONOCYTES % (AUTO) 12.2 % (3-13); PLATELET COUNT 169 10^3/uL (150-450); RED BLOOD COUNT 3.16 10^6/uL (4.35-5.55); RED CELL DISTRIBUTION WIDTH 20.8 % (11.5-14.0); SEGMENTED NEUTROPHILS % (AUTO) 69.2 % (42-78); TOTAL CELLS COUNTED % (AUTO) 100 %; WHITE BLOOD COUNT 4.1 10^3/uL (4.0-10.5)
[2018-04-13 05:11] LABS: ARTERIAL BLOOD BASE EXCESS 2.7 mmol/L; ARTERIAL BLOOD H2CO3 1.42 mmol/L (1.05-1.35); ARTERIAL BLOOD HCO3 28.1 mmol/L (20-24); ARTERIAL BLOOD O2 SATURATION 95.6 % (94-98); ARTERIAL BLOOD PCO2 47.1 mmHg (35-45); ARTERIAL BLOOD PH 7.39 (7.35-7.45); ARTERIAL BLOOD PO2 79.9 mmHg (80-100); ARTERIAL BLOOD TOTAL CO2 29.5 mmol/L (23-27)
[2018-04-13 05:12] LABS: ARTERIAL BLOOD FIO2 85%
[2018-04-13 05:25] LABS: BLOOD UREA NITROGEN 16 mg/dL (7-20); CALCIUM 7.9 mg/dL (8.4-10.2); GLUCOSE 122 mg/dL (75-110); POTASSIUM 4.2 mmol/L (3.6-5.0)
[2018-04-13 05:32] LABS: CARBON DIOXIDE 31 mmol/L (22-30); CHLORIDE 105 mmol/L (98-107); SODIUM 140.1 mmol/L (137-145)
[2018-04-13 05:34] LABS: ANION GAP 4 (5-19)
[2018-04-13] MEDS: HEPARIN SOD (PORCINE) 5,000 UNIT/ML 1 ML SYRINGE SUBCUT SCH ×3 (05:38→21:16)
[2018-04-13] MEDS: MIDAZOLAM HCL 50 MG/100 ML RTUINJ IV PRN ×2 (05:38→15:27)
[2018-04-13] MEDS: CEFEPIME 1 GM/D5W RTU 1 GM/50 ML RTUPB IV SCH ×2 (05:39→17:36)
[2018-04-13] MEDS: INSULIN LISPRO 100 UNIT/ML 3 ML VIAL SUBCUT SCH ×3 (05:45→17:29)
[2018-04-13] MEDS: METOPROLOL TARTRATE 25 MG TABLET PO SCH ×2 (05:47→17:36)
[2018-04-13] MEDS: NORMAL SALINE 1000 ML 1,000 ML IV PRN (05:49)
[2018-04-13] MEDS: ACETYLCYSTEINE 20% SOLN 800 MG/4 ML VIAL.NEB NEB SCH ×2 (08:42→20:46)
--- NOTE | 2018-04-13 08:45 | RADIOLOGY REPORT (SQ) ---
EXAM DESCRIPTION: CHEST SINGLE VIEW COMPLETED DATE/TIME: 04/13/2018 6:40 am REASON FOR STUDY: resp failure COMPARISON: 04/12/2018 EXAM PARAMETERS: NUMBER OF VIEWS: One view. TECHNIQUE: Single frontal radiographic view of the chest acquired. RADIATION DOSE: NA LIMITATIONS: None. FINDINGS: LUNGS AND PLEURA: Interval worsening in the appearance of the lungs since the previous ex amination. The left pleural effusion has increased in size with moderate to large effusion present. Increase in the airspace disease in the right perihilar region. Small right pleural effusion is aga in noted. No evidence of pneumothorax. MEDIASTINUM AND HILAR STRUCTURES: The mid-distal portion of the left lower lobe bronchus is not well visualized and may be occluded. HEART AND VASCULAR STRUCTURES: The cardiac margin on the left is partially obscured by the pleuropar enchymal changes. Mild prominence of the pulmonary vasculature. BONES: No acute findings. HARDWARE: Support tubes and lines are unchanged. OTHER: No other significant finding. IMPRESSION: 1. Interval worsening in the appearance of the lungs since the previous examination vikki ed 04/12/2018. The left pleural effusion has increased in size with moderate to large effusion on the current study. 2. Interval increase in the airspace disease in the right perihilar region. Small right pleural eff usion. 3. The left lower lobe bronchus is not well visualized raising the question of possible occlusion. Correlation suggested. TECHNICAL DOCUMENTATION: JOB ID: [id number] [employer]- All Rights Reserved Reading location - IP/workstation name: [email or web address]
[2018-04-13] MEDS: PANTOPRAZOLE SODIUM 40 MG VIAL IV SCH ×2 (11:06→21:15)
[2018-04-13] MEDS: DIGOXIN 0.25 MG TABLET PO SCH (11:06)
[2018-04-13] MEDS: VANCOMYCIN HCL 1,500 MG in DEXTROSE 5%-WATER 250 ML IV SCH ×2 (11:06→21:15)
[2018-04-13] MEDS: ASPIRIN 81 MG TABLET, ENT COATED PO SCH (11:06)
--- NOTE | 2018-04-13 15:00 | PDOC PROGRESS REPORT ---
Subjective Progress Note for:: 04/13/18 Subjective:: Patient remained intubated and sedated. His vital signs are stable and labs are unremarkable. His chest x-ray which is done this morning shows large left pleural effusion. I talked to Dr. Finney patient is not ready for weaning because of this effusion. Reason For Visit: ACUTE RESPIRATORY FAILURE WITH HYPOXIA Physical Exam Vital Signs: Temp Pulse Resp BP Pulse Ox 97.2 F 67 11 L 129/57 H 96 04/13/18 14:01 04/13/18 14:05 04/13/18 14:05 04/13/18 14:01 04/13/18 14:05 Intake & Output 04/12/18 04/13/18 04/14/18 06:59 06:59 06:59 Intake Total 2895 2000 383 Output Total 2535 1185 385 Balance 360 815 -2 Weight 125.9 kg 126.9 kg Results Laboratory Results: 04/13/18 04:57 04/13/18 04:57 04/13/18 04/13/18 04/13/18 04:57 04:57 04:57 WBC 4.1 RBC 3.16 L Hgb 8.5 L Hct 26.0 L MCV 82 MCH 26.8 L MCHC 32.6 RDW 20.8 H Plt Count 169 Seg Neutrophils % 69.2 Lymphocytes % 16.1 Monocytes % 12.2 Eosinophils % 1.9 Basophils % 0.6 Absolute Neutrophils 2.8 Absolute Lymphocytes 0.7 Absolute Monocytes 0.5 Absolute Eosinophils 0.1 Absolute Basophils 0.0 Carbonic Acid 1.42 H HCO3/H2CO3 Ratio 19:1 ABG pH 7.39 ABG pCO2 47.1 H ABG pO2 79.9 L ABG HCO3 28.1 H ABG O2 Saturation 95.6 ABG Base Excess 2.7 FiO2 85% Sodium 140.1 Potassium 4.2 Chloride 105 Carbon Dioxide 31 H Anion Gap 4 L BUN 16 Creatinine 1.16 Est GFR ( Amer) > 60 Est GFR (Non-Af Amer) > 60 Glucose 122 H Calcium 7.9 L Total Protein 04/13/18 13:55 WBC RBC Hgb Hct MCV MCH MCHC RDW Plt Count Seg Neutrophils % Lymphocytes % Monocytes % Eosinophils % Basophils % Absolute Neutrophils Absolute Lymphocytes Absolute Monocytes Absolute Eosinophils Absolute Basophils Carbonic Acid HCO3/H2CO3 Ratio ABG pH ABG pCO2 ABG pO2 ABG HCO3 ABG O2 Saturation ABG Base Excess FiO2 Sodium Potassium Chloride Carbon Dioxide Anion Gap BUN Creatinine Est GFR ( Amer) Est GFR (Non-Af Amer) Glucose Calcium Total Protein 3.5 L 04/08/18 04/08/18 04/09/18 21:58 21:58 04:15 Creatine Kinase < 20 L CK-MB (CK-2) Troponin I 0.038 NT-Pro-B Natriuret Pep 5370 H 04/09/18 04/09/18 04/09/18 04:15 10:44 10:44 Creatine Kinase < 20 L CK-MB (CK-2) 1.06 0.64 Troponin I 0.034 0.046 NT-Pro-B Natriuret Pep 04/09/18 04/09/18 15:50 15:50 Creatine Kinase 30 L CK-MB (CK-2) 0.45 Troponin I 0.050 NT-Pro-B Natriuret Pep Impressions: Chest X-Ray 04/13/18 06:00 IMPRESSION: 1. Interval worsening in the appearance of the lungs since the previous examination dated 04/12/2018. The left pleural effusion has increased in size with moderate to large effusion on the current study. 2. Interval increase in the airspace disease in the right perihilar region. Small right pleural effusion. 3. The left lower lobe bronchus is not well visualized raising the question of possible occlusion. Correlation suggested. Assessment & Plan - Diagnosis (1) Pleural effusion Is this a current diagnosis for this admission?: Yes Plan: We will request thoracentesis. (2) Acute respiratory failure with hypoxia and hypercapnia Is this a current diagnosis for this admission?: Yes Plan: Patient has been on mechanical ventilation. Dr. Finney has been following this patient. (3) Pneumonia Is this a current diagnosis for this admission?: Yes Plan: Continue empiric triple antibiotics. (4) Chronic atrial fibrillation with RVR Is this a current diagnosis for this admission?: Yes Plan: Now rate controlled. (5) Type 2 diabetes mellitus Is this a current diagnosis for this admission?: Yes Plan: Continue current regimen (6) COPD (chronic obstructive pulmonary disease) Qualifiers: Emphysema type: unspecified Is this a current diagnosis for this admission?: Yes Plan: Continue bronchodilators (7) Acute on chronic systolic CHF (congestive heart failure) Is this a current diagnosis for this admission?: Yes Plan: We will cautiously diurese him. (8) Morbid obesity Is this a current diagnosis for this admission?: Yes Plan: I would encourage patient to do lifestyle modification
--- NOTE | 2018-04-13 15:08 | PDOC PROGRESS REPORT ---
Subjective Progress Note for:: 04/13/18 Subjective:: Remains intubated and sedated Reason For Visit: ACUTE RESPIRATORY FAILURE WITH HYPOXIA Physical Exam Vital Signs: Temp Pulse Resp BP Pulse Ox 97.3 F 66 15 130/60 H 95 04/13/18 08:00 04/13/18 08:00 04/13/18 08:00 04/13/18 08:00 04/13/18 08:00 Intake & Output 04/12/18 04/13/18 04/14/18 06:59 06:59 06:59 Intake Total 2895 1750 Output Total 2535 1185 60 Balance 360 565 -60 Weight 125.9 kg 126.9 kg General appearance: PRESENT: no acute distress, disheveled, morbidly obese. ABSENT: cooperative Head exam: PRESENT: atraumatic, normocephalic Eye exam: PRESENT: conjunctiva pale. ABSENT: nystagmus, periorbital swelling Mouth exam: PRESENT: dry mucosa, neck supple, tongue midline, other - ET tube Neck exam: ABSENT: carotid bruit, full ROM, JVD, lymphadenopathy, meningismus, tenderness, thyromegaly, tracheal deviation, tracheostomy, other Respiratory exam: PRESENT: decreased breath sounds, prolonged expiratory phas, rales, rhonchi, unlabored. ABSENT: retraction, stridor, tachypnea Cardiovascular exam: PRESENT: RRR, +S1, +S2 Pulses: PRESENT: normal radial pulses GI/Abdominal exam: PRESENT: soft. ABSENT: tenderness Gentrourinary exam: PRESENT: indwelling catheter Extremities exam: PRESENT: pedal edema. ABSENT: calf tenderness, clubbing, joint swelling Musculoskeletal exam: ABSENT: ambulatory, deformity, dislocation Neurological exam: ABSENT: awake Skin exam: PRESENT: dry, warm Results Laboratory Results: 04/13/18 04:57 04/13/18 04:57 04/13/18 04/13/18 04/13/18 04:57 04:57 04:57 WBC 4.1 RBC 3.16 L Hgb 8.5 L Hct 26.0 L MCV 82 MCH 26.8 L MCHC 32.6 RDW 20.8 H Plt Count 169 Seg Neutrophils % 69.2 Lymphocytes % 16.1 Monocytes % 12.2 Eosinophils % 1.9 Basophils % 0.6 Absolute Neutrophils 2.8 Absolute Lymphocytes 0.7 Absolute Monocytes 0.5 Absolute Eosinophils 0.1 Absolute Basophils 0.0 Carbonic Acid 1.42 H HCO3/H2CO3 Ratio 19:1 ABG pH 7.39 ABG pCO2 47.1 H ABG pO2 79.9 L ABG HCO3 28.1 H ABG O2 Saturation 95.6 ABG Base Excess 2.7 FiO2 85% Sodium 140.1 Potassium 4.2 Chloride 105 Carbon Dioxide 31 H Anion Gap 4 L BUN 16 Creatinine 1.16 Est GFR ( Amer) > 60 Est GFR (Non-Af Amer) > 60 Glucose 122 H Calcium 7.9 L 04/09/18 21:25 Tracheal Aspirate Gram Stain - Final 04/09/18 21:25 Tracheal Aspirate Sputum Culture - Final Pseudomonas Aeruginosa Normal Brittny Absent 04/08/18 04/08/18 04/09/18 21:58 21:58 04:15 Creatine Kinase < 20 L CK-MB (CK-2) Troponin I 0.038 NT-Pro-B Natriuret Pep 5370 H 04/09/18 04/09/18 04/09/18 04:15 10:44 10:44 Creatine Kinase < 20 L CK-MB (CK-2) 1.06 0.64 Troponin I 0.034 0.046 NT-Pro-B Natriuret Pep 04/09/18 04/09/18 15:50 15:50 Creatine Kinase 30 L CK-MB (CK-2) 0.45 Troponin I 0.050 NT-Pro-B Natriuret Pep Impressions: Chest X-Ray 04/13/18 06:00 IMPRESSION: 1. Interval worsening in the appearance of the lungs since the previous examination dated 04/12/2018. The left pleural effusion has increased in size with moderate to large effusion on the current study. 2. Interval increase in the airspace disease in the right perihilar region. Small right pleural effusion. 3. The left lower lobe bronchus is not well visualized raising the question of possible occlusion. Correlation suggested. Assessment & Plan - Diagnosis (1) Acute respiratory failure with hypoxia and hypercapnia Is this a current diagnosis for this admission?: Yes Plan: Large left pleural effusion as well as left lower lobe atelectasis will proceed with thoracentesis consider bronchoscopy (2) Atrial fibrillation with rapid ventricular response Is this a current diagnosis for this admission?: Yes Plan: Cardizem drip digoxin (3) COPD (chronic obstructive pulmonary disease) Qualifiers: Emphysema type: unspecified Is this a current diagnosis for this admission?: Yes Plan: Continue current bronchodilator therapy (4) Morbid obesity Is this a current diagnosis for this admission?: Yes Plan: nutritional consult - Time Total Critical Time (Minutes): 50
--- NOTE | 2018-04-13 15:10 | PDOC PROGRESS REPORT ---
Subjective Progress Note for:: 04/12/18 Subjective:: Remains intubated and sedated Reason For Visit: ACUTE RESPIRATORY FAILURE WITH HYPOXIA Physical Exam Vital Signs: Temp Pulse Resp BP Pulse Ox 97.5 F 67 15 104/55 L 100 04/12/18 08:00 04/12/18 08:00 04/12/18 08:00 04/12/18 08:00 04/12/18 08:00 Intake & Output 04/11/18 04/12/18 04/13/18 06:59 06:59 06:59 Intake Total 4925 1845 Output Total 2041 2535 100 Balance 2884 -690 -100 Weight 126.7 kg 125.9 kg General appearance: PRESENT: no acute distress, disheveled, morbidly obese. ABSENT: cooperative Head exam: PRESENT: atraumatic, normocephalic Eye exam: PRESENT: conjunctiva pale. ABSENT: EOMI, nystagmus, periorbital swelling, scleral icterus Mouth exam: PRESENT: dry mucosa, neck supple, tongue midline, other - ET tube Neck exam: ABSENT: carotid bruit, full ROM, JVD, lymphadenopathy, meningismus, t enderness, thyromegaly, tracheal deviation, tracheostomy, other Respiratory exam: PRESENT: decreased breath sounds, prolonged expiratory phas, rales, rhonchi, unlabored. ABSENT: retraction, stridor Cardiovascular exam: PRESENT: RRR, +S1, +S2, tachycardia Pulses: PRESENT: normal radial pulses GI/Abdominal exam: PRESENT: soft. ABSENT: tenderness Gentrourinary exam: PRESENT: indwelling catheter Extremities exam: PRESENT: pedal edema. ABSENT: calf tenderness, clubbing, full ROM, joint swelling Musculoskeletal exam: ABSENT: ambulatory, deformity, dislocation, full ROM Neurological exam: ABSENT: awake Skin exam: PRESENT: dry, warm Results Laboratory Results: 04/12/18 04:08 04/12/18 04:08 04/12/18 04/12/18 04/12/18 04:08 04:08 04:08 WBC 3.0 L RBC 3.16 L Hgb 8.3 L Hct 26.0 L MCV 82 MCH 26.3 L MCHC 31.9 L RDW 20.6 H Plt Count 158 Seg Neutrophils % 58.4 Lymphocytes % 20.5 Monocytes % 15.8 H Eosinophils % 4.6 Basophils % 0.7 Absolute Neutrophils 1.7 Absolute Lymphocytes 0.6 Absolute Monocytes 0.5 Absolute Eosinophils 0.1 Absolute Basophils 0.0 Carbonic Acid 1.48 H HCO3/H2CO3 Ratio 20:1 ABG pH 7.41 ABG pCO2 49.1 H ABG pO2 61.1 L ABG HCO3 30.2 H ABG O2 Saturation 91.3 L ABG Base Excess 4.9 FiO2 40% Sodium 139.9 Potassium 4.0 Chloride 105 Carbon Dioxide 30 Anion Gap 5 BUN 16 Creatinine 1.07 Est GFR ( Amer) > 60 Est GFR (Non-Af Amer) > 60 Glucose 103 Calcium 7.3 L Magnesium 2.0 04/09/18 00:08 Catheterized Urine Urine Culture - Final Proteus Mirabilis 04/08/18 04/08/18 04/09/18 21:58 21:58 04:15 Creatine Kinase < 20 L CK-MB (CK-2) Troponin I 0.038 NT-Pro-B Natriuret Pep 5370 H 04/09/18 04/09/18 04/09/18 04:15 10:44 10:44 Creatine Kinase < 20 L CK-MB (CK-2) 1.06 0.64 Troponin I 0.034 0.046 NT-Pro-B Natriuret Pep 04/09/18 04/09/18 15:50 15:50 Creatine Kinase 30 L CK-MB (CK-2) 0.45 Troponin I 0.050 NT-Pro-B Natriuret Pep Impressions: Chest X-Ray 04/12/18 06:00 IMPRESSION: 1. No significant interval change since the prior study dated 04/11/2018 in the appearance of the bilateral perihilar airspace disease. 2. Interval increase in size of the left pleural effusion. Small right pleural effusion, unchanged. Assessment & Plan - Diagnosis (1) Acute respiratory failure with hypoxia and hypercapnia Is this a current diagnosis for this admission?: Yes Plan: left lower lobe atelectasis (2) Atrial fibrillation with rapid ventricular response Is this a current diagnosis for this admission?: Yes Plan: Cardizem drip digoxin (3) COPD (chronic obstructive pulmonary disease) Qualifiers: Emphysema type: unspecified Is this a current diagnosis for this admission?: Yes Plan: Continue current bronchodilator therapy (4) Morbid obesity Is this a current diagnosis for this admission?: Yes Plan: nutritional consult - Time Total Critical Time (Minutes): 45
--- NOTE | 2018-04-13 15:54 | RADIOLOGY REPORT (SQ) ---
EXAM DESCRIPTION: U/S CHEST COMPLETED DATE/TIME: 04/13/2018 3:40 pm REASON FOR STUDY: l pleural effusion COMPARISON: Multiple previous chest films TECHNIQUE: Portable ultrasound of the left pleural space was performed in the ICU to quantify pleura l effusion. LIMITATIONS: None. FINDINGS: Portable ultrasound of the left pleural space was performed in the ICU to quantify pleural effusion. Patient did not tolerate being moved, with desaturations. Very limited view of the left pleural spac e from a lateral approach demonstrated no accessible fluid. No thoracentesis was performed IMPRESSION: No thoracentesis was performed. TECHNICAL DOCUMENTATION: JOB ID: [id number] [employer]- All Rights Reserved Reading location - IP/workstation name: [email or web address]
[2018-04-13] MEDS: LEVOFLOXACIN 750 MG/D5W RTU 750 MG/150 ML RTUPB IV SCH (17:35)
--- NOTE | 2018-04-13 23:21 | Progress Note ---
Provider Note Provider Note: CARDIOLOGY PROGRESS NOTE by Dr. Corina Moura on 04/13/2018. SUBJECTIVE: The patient is intubated and sedated. He is in sinus rhythm with occasional APCs. There is no ventricular arrhythmia seen on the monitor. There is no leg edema. Selected Entries 04/13/18 04/13/18 16:00 16:01 Temperature 97.3 F Pulse Rate 76 Heart Rate ( 81 Monitors) Respiratory 20 19 Rate Blood Pressure 125/60 Blood Pressure 125/60 [Upper Arm] Blood Pressure 81 Mean Blood Pressure 81 Mean [Upper Arm ] Blood Pressure Supine Position [Upper Arm] Blood Pressure 125 Systolic [Upper Arm] O2 Sat by Pulse 89 L 90 L Oximetry Oxygen Delivery Mechanical Method ( Ventilator includes room air) End-Tidal CO2 36 Concentration HEAD: Head is atraumatic and normocephalic. EYES: Pupils are equal round regular reactive to light accommodation. Extraocular movements are normal, there is no conjunctival pallor, and no scleral icterus. EARS: Tympanic membranes are intact external auditory canals are clear. NOSE: There is no inflammation of the nasal mucous membrane there is no deviated nasal septum. MOUTH: Mucous membranes of mouth and tongue are moist, there is no ulcers in the mouth or tongue, and no bleeding from the gums. THROAT: There is no redness of the oropharynx, no exudate seen. SKIN: There is no petechia or ecchymosis. There is no rashes or lesions. NECK: Supple. There is no JVD. Carotids are equal there is no bruit. There is no lymphadenopathy. There is no goiter. Trachea central LUNGS: There is diminished air entry and prolonged expiration. Clear to auscultation bilaterally, no wheezes, rales, but there is diffuse rhonchi. On percussion there is hyperresonance although there is no chest wall tenderness HEART: S1 and S2 are heard. S1 is of variable intensity, there is no S3 or S4 gallops. There is a systolic murmur the left sternal border and the apex. There is no rub. ABDOMEN: Normoactive bowel sounds, soft, nontender, no masses, no rebound, no guarding. There is no hepatosplenomegaly. EXTREMITIES: Femorals are slightly diminished. There is no femoral bruits. Leg pulses are diminished. There is no pedal edema. There is no DVT or cellulitis. There is no cyanosis or clubbing. There is no calf tenderness. NEUROLOGICAL the patient is awake alert oriented 3 with no focal deficits. PSYCHIATRIC: The patient judgment and insight are intact his affect is normal. 04/12/18 04/13/18 04/13/18 09:55 04:57 04:57 WBC Hgb Hct MCV MCH MCHC RDW Plt Count Carbonic Acid 1.42 H HCO3/H2CO3 Ratio 19:1 ABG pH 7.39 ABG pCO2 47.1 H ABG pO2 79.9 L ABG HCO3 28.1 H ABG Total CO2 29.5 H ABG O2 Saturation 95.6 ABG Base Excess 2.7 FiO2 85% Sodium 140.1 Potassium 4.2 Chloride 105 Carbon Dioxide 31 H Anion Gap 4 L BUN 16 Creatinine 1.16 Est GFR (Non-Af Amer) > 60 Glucose 122 H Calcium 7.9 L Lactate Dehydrogenase Total Protein Time Trough Drawn 0955 Vancomycin Trough 19.6 04/13/18 04/13/18 04/13/18 04:57 13:55 13:55 WBC 4.1 Hgb 8.5 L Hct 26.0 L MCV 82 MCH 26.8 L MCHC 32.6 RDW 20.8 H Plt Count 169 Carbonic Acid HCO3/H2CO3 Ratio ABG pH ABG pCO2 ABG pO2 ABG HCO3 ABG Total CO2 ABG O2 Saturation ABG Base Excess FiO2 Sodium Potassium Chloride Carbon Dioxide Anion Gap BUN Creatinine Est GFR (Non-Af Amer) Glucose Calcium Lactate Dehydrogenase 135 Total Protein 3.5 L Time Trough Drawn Vancomycin Trough IMPRESSION/RECOMMENDATION: 1. Recurrence of paroxysmal atrial flutter with rapid ventricular response. The patient converted to sinus rhythm. At present the patient in sinus rhythm with controlled ventricular response. Continue the patient on metoprolol. 2. Septic shock most likely secondary to his pneumonia and acute exacerbation of Cipro COPD: This is resolved. Continue antibiotics. Continue ventilatory support. 3. Acute on chronic respiratory failure: Continue antibiotics and ventilatory support and oxygen. Continue respiratory treatments. 4. Pneumonia: Continue antibiotics. Chest x-ray shows improvement. 5. Acute exacerbation of COPD: Continue current treatment 4. Hypertension: Blood pressure well controlled. 6. Coronary artery disease: At present no evidence of anginal symptoms. 7.. 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 8. Hypertension: Patient was hypotensive requiring inotropes. At present blood pressure is good with the patient off levo fed. 9.. History of diabetes mellitus type 2 insulin-dependent. Continue insulin and monitor blood sugar and adjust insulin dosage as per blood sugar. 10.. Tobacco abuse: 11. Moderate pulmonary hypertension: 12. History of sleep apnea. Intolerant to CPAP. 13. RIGHT BUNDLE BRANCH PATTERN. With left axis deviation, with left anterior fascicular block. 14. Patient made DNR at this visit. Medications reviewed: Medications adjusted. Management plan discussed with attending physician on the case. Discussed with the patient's also. Medical decision making is of high complexity. 40 minutes spent on this patient with more than 50% of time spent in direct patient care.
[2018-04-14] MEDS: INSULIN LISPRO 100 UNIT/ML 3 ML VIAL SUBCUT SCH ×4 (00:50→18:30)
[2018-04-14] MEDS: NORMAL SALINE 1000 ML 1,000 ML IV PRN ×3 (01:01→23:15)
[2018-04-14] MEDS: IPRATROPIUM/ALBUTEROL 0.5-2.5 MG/3 ML AMPUL NEB SCH ×4 (02:17→20:17)
[2018-04-14 04:38] LABS: ARTERIAL BLOOD BASE EXCESS 2.6 mmol/L; ARTERIAL BLOOD H2CO3 1.47 mmol/L (1.05-1.35); ARTERIAL BLOOD HCO3 28.2 mmol/L (20-24); ARTERIAL BLOOD O2 SATURATION 93.3 % (94-98); ARTERIAL BLOOD PCO2 48.8 mmHg (35-45); ARTERIAL BLOOD PH 7.38 (7.35-7.45); ARTERIAL BLOOD TOTAL CO2 29.7 mmol/L (23-27)
[2018-04-14 04:40] LABS: ARTERIAL BLOOD FIO2 65%
[2018-04-14 04:50] LABS: ABSOLUTE EOSINOPHILS # (AUTO) 0.1 10^3/uL (0.0-0.6); ABSOLUTE LYMPHOCYTES (AUTO) 0.7 10^3/uL (0.5-4.7); ABSOLUTE MONOCYTES (AUTO) 0.6 10^3/uL (0.1-1.4); ABSOLUTE NEUT (AUTO) 4.9 10^3/uL (1.7-8.2); BASOPHILS % (AUTO) 0.5 % (0-2); EOSINOPHILS % (AUTO) 1.2 % (0-6); HEMATOCRIT 27.9 % (37.9-51.0); HEMOGLOBIN 9.1 g/dL (13.5-17.0); LYMPHOCYTES % (AUTO) 10.9 % (13-45); MEAN CORPUSCULAR HEMOGLOBIN 26.9 pg (27.0-33.4); MEAN CORPUSCULAR HGB CONC 32.4 g/dL (32.0-36.0); MEAN CORPUSCULAR VOLUME 83 fl (80-97); PLATELET COUNT 194 10^3/uL (150-450); RED BLOOD COUNT 3.37 10^6/uL (4.35-5.55); RED CELL DISTRIBUTION WIDTH 20.9 % (11.5-14.0); SEGMENTED NEUTROPHILS % (AUTO) 77.4 % (42-78); TOTAL CELLS COUNTED % (AUTO) 100 %; WHITE BLOOD COUNT 6.4 10^3/uL (4.0-10.5)
[2018-04-14 05:07] LABS: BLOOD UREA NITROGEN 13 mg/dL (7-20); CALCIUM 7.8 mg/dL (8.4-10.2); CARBON DIOXIDE 30 mmol/L (22-30); GLUCOSE 114 mg/dL (75-110); POTASSIUM 4.2 mmol/L (3.6-5.0)
[2018-04-14 05:12] LABS: CHLORIDE 106 mmol/L (98-107); SODIUM 140.1 mmol/L (137-145)
[2018-04-14 05:22] LABS: ANION GAP 4 (5-19)
[2018-04-14] MEDS: HEPARIN SOD (PORCINE) 5,000 UNIT/ML 1 ML SYRINGE SUBCUT SCH ×3 (05:26→21:18)
[2018-04-14] MEDS: CEFEPIME 1 GM/D5W RTU 1 GM/50 ML RTUPB IV SCH (05:30)
[2018-04-14] MEDS: METOPROLOL TARTRATE 25 MG TABLET PO SCH ×2 (05:30→17:58)
[2018-04-14] MEDS: MIDAZOLAM HCL 50 MG/100 ML RTUINJ IV PRN ×3 (05:31→20:33)
--- NOTE | 2018-04-14 07:51 | RADIOLOGY REPORT (SQ) ---
EXAM DESCRIPTION: XR CHEST 1 VIEW COMPLETED DATE/TME: 04/14/2018 06:00 CLINICAL HISTORY: 67 years Male, resp failure pna COMPARISON: One day prior. NUMBER OF VIEWS/TECHNIQUE: 1/AP FINDINGS: Bilateral lower thoracic opacity/effusion. Right subclavian central line tip at the junction of the right brachiocephalic vein and SVC. Tip of an endotracheal tube is 2.6 cm from the gerhard; consider retraction of the endotracheal tube by 2.4 cm. Adequate appearing enteric tube with tip at the left upper abdominal quadrant. Mildly enlarged cardiac silhouette. No pneumothorax. Stable bony thorax. IMPRESSION: No significant change.
[2018-04-14] MEDS ORDERED: LIDOCAINE 1% INJ-PF (10 MG/ML) 30 ML SDV ONE (09:44)
[2018-04-14] MEDS: ACETYLCYSTEINE 20% SOLN 800 MG/4 ML VIAL.NEB NEB SCH ×2 (09:45→20:17)
[2018-04-14] MEDS: DIGOXIN 0.25 MG TABLET PO SCH (10:41)
[2018-04-14] MEDS: ASPIRIN 81 MG TABLET, ENT COATED PO SCH (10:41)
[2018-04-14] MEDS: PANTOPRAZOLE SODIUM 40 MG VIAL IV SCH ×2 (10:41→21:18)
--- NOTE | 2018-04-14 12:07 | OPERATIVE REPORT E ---
Operative Report NAME: THEODORE SON : 1950 AGE: 67Y DATE OF SURGERY: 04/14/2018 ROOM: [facility] PREOPERATIVE DIAGNOSIS: Left pleural effusion. POSTOPERATIVE DIAGNOSIS: Left pleural effusion. OPERATION: Insertion of chest tube, left fifth intercostal space, anterior axillary line. SURGEON: MAIN OLIVAS M.D. ANESTHESIA: Local. INDICATIONS: This is a 67-year-old male who has been intubated for respiratory failure. An attempt was done yesterday to do a thoracentesis but the patient was unable to tolerate and it was then aborted. DESCRIPTION OF PROCEDURE: The patient was in supine position, intubated. The left chest area around the left nipple was then prepped and draped in the usual sterile fashion. Local anesthesia was infiltrated along the palpable side of the fifth intercostal space and about a 3 cm incision was made. This was then bluntly dissected down into the intercostal space. The intercostal space was then further anesthetized with 1% Xylocaine into the pleura. The pleura was then punctured and dilated and a 32-[place] chest tube inserted up to a distance of about 10 cm. Chest tube was then anchored to the skin with 0 silk. A Vaseline gauze was placed around the insertion site and the chest tube connected to a Pleur-evac. A sterile 4 x 4 and adhesive tape were placed around the insertion site as well as at the connection between the chest tube and the Pleur-evac catheter with 2-inch silk tape. There was at least 100 mL of blood-tinged fluid. Specimen will be obtained for C and S and cytology, to be obtained by the nurse, Troy, taking care of the patient today. A chest x-ray will be performed for placement. The patient tolerated the procedure quite well. DICTATING PHYSICIAN: MAIN OLIVAS M.D. [id number] PHY#: [id number] ID: [id number] JOB#: [id number] ACCT: [id number] cc:MAIN OLIVAS M.D. >
--- NOTE | 2018-04-14 12:35 | RADIOLOGY REPORT (SQ) ---
EXAM DESCRIPTION: CHEST SINGLE VIEW COMPLETED DATE/TIME: 04/14/2018 12:23 pm REASON FOR STUDY: chest tube placement COMPARISON: 04/14/2018 at 0601 hours. EXAM PARAMETERS: NUMBER OF VIEWS: One view. TECHNIQUE: Single frontal radiographic view of the chest acquired. RADIATION DOSE: NA LIMITATIONS: None. FINDINGS: LUNGS AND PLEURA: Patchy parenchymal densities and bilateral pleural effusions. No pneumo thorax. MEDIASTINUM AND HILAR STRUCTURES: No masses. Contour normal. HEART AND VASCULAR STRUCTURES: Cardiomegaly. Vascular congestion. BONES: No acute findings. HARDWARE: New left-sided chest tube. Cardiac recorder. Endotracheal tube, nasogastric tube, and holden tral line unchanged. OTHER: No other significant finding. IMPRESSION: INTERVAL PLACEMENT OF A LEFT-SIDED CHEST TUBE. NO PNEUMOTHORAX. NO CHANGE IN APPEARANC E OF THE CHEST. TECHNICAL DOCUMENTATION: JOB ID: [id number] [employer]- All Rights Reserved Reading location - IP/workstation name: [email or web address]
[2018-04-14 13:18] LABS: FLUID APPEARANCE CLOUDY; FLUID COLOR AMBER; FLUID SOURCE LUNG; FLUID TYPE PLEURAL; FLUID VISCOSITY LIQUID
--- NOTE | 2018-04-14 15:36 | PDOC PROGRESS REPORT ---
Subjective Progress Note for:: 04/14/18 Subjective:: Patient seen remained intubated and sedated. His tracheal aspirate grew Pseudomonas which is resistant to cefepime and sensitive to Levaquin. And his urine culture is positive for Proteus mirabilis and sensitive to Levaquin. Ultrasound-guided thoracentesis could not be done because the fluid is too thick so general surgeon consulted for chest tube placement. Reason For Visit: ACUTE RESPIRATORY FAILURE WITH HYPOXIA Physical Exam Vital Signs: Temp Pulse Resp BP Pulse Ox 98.1 F 77 15 124/56 L 97 04/14/18 14:01 04/14/18 14:55 04/14/18 14:55 04/14/18 14:01 04/14/18 14:55 Intake & Output 04/13/18 04/14/18 04/15/18 06:59 06:59 06:59 Intake Total 1999 1982 1111 Output Total 1185 2645 625 Balance 815 -662 487 Weight 126.9 kg 128.8 kg General appearance: PRESENT: no acute distress Head exam: PRESENT: atraumatic Eye exam: PRESENT: conjunctiva pink Mouth exam: PRESENT: moist Neck exam: ABSENT: carotid bruit, JVD, lymphadenopathy, thyromegaly Respiratory exam: PRESENT: clear to auscultation ernesto. ABSENT: rales, rhonchi, wheezes Cardiovascular exam: PRESENT: RRR. ABSENT: diastolic murmur, rubs, systolic murmur GI/Abdominal exam: PRESENT: normal bowel sounds, soft. ABSENT: distended, guarding, mass, organolmegaly, rebound, tenderness Results Laboratory Results: 04/14/18 04:28 04/14/18 10:20 04/14/18 04/14/18 04/14/18 04:28 04:28 04:28 WBC 6.4 RBC 3.37 L Hgb 9.1 L Hct 27.9 L MCV 83 MCH 26.9 L MCHC 32.4 RDW 20.9 H Plt Count 194 Seg Neutrophils % 77.4 Lymphocytes % 10.9 L Monocytes % 10.0 Eosinophils % 1.2 Basophils % 0.5 Absolute Neutrophils 4.9 Absolute Lymphocytes 0.7 Absolute Monocytes 0.6 Absolute Eosinophils 0.1 Absolute Basophils 0.0 Carbonic Acid 1.47 H HCO3/H2CO3 Ratio 19:1 ABG pH 7.38 ABG pCO2 48.8 H ABG pO2 69.0 L ABG HCO3 28.2 H ABG O2 Saturation 93.3 L ABG Base Excess 2.6 FiO2 65% Sodium 140.1 Potassium 4.2 Chloride 106 Carbon Dioxide 30 Anion Gap 4 L BUN 13 Creatinine 1.11 Est GFR ( Amer) > 60 Est GFR (Non-Af Amer) > 60 Glucose 114 H Calcium 7.8 L Magnesium 2.0 Fluid Type Fluid Source Fluid Color Fluid Appearance Fluid Viscosity Fluid WBC Fluid RBC 04/14/18 04/14/18 10:20 11:50 WBC RBC Hgb Hct MCV MCH MCHC RDW Plt Count Seg Neutrophils % Lymphocytes % Monocytes % Eosinophils % Basophils % Absolute Neutrophils Absolute Lymphocytes Absolute Monocytes Absolute Eosinophils Absolute Basophils Carbonic Acid HCO3/H2CO3 Ratio ABG pH ABG pCO2 ABG pO2 ABG HCO3 ABG O2 Saturation ABG Base Excess FiO2 Sodium Potassium Chloride Carbon Dioxide Anion Gap BUN Creatinine 1.01 Est GFR ( Amer) > 60 Est GFR (Non-Af Amer) > 60 Glucose Calcium Magnesium Fluid Type PLEURAL Fluid Source LUNG Fluid Color ALY Fluid Appearance CLOUDY Fluid Viscosity LIQUID Fluid WBC 636 Fluid RBC 85392 04/09/18 01:15 Blood Blood Culture - Final NO GROWTH IN 5 DAYS 04/08/18 21:58 Blood Blood Culture - Final NO GROWTH IN 5 DAYS 04/08/18 04/08/18 04/09/18 21:58 21:58 04:15 Creatine Kinase < 20 L CK-MB (CK-2) Troponin I 0.038 NT-Pro-B Natriuret Pep 5370 H 04/09/18 04/09/18 04/09/18 04:15 10:44 10:44 Creatine Kinase < 20 L CK-MB (CK-2) 1.06 0.64 Troponin I 0.034 0.046 NT-Pro-B Natriuret Pep 04/09/18 04/09/18 04/14/18 15:50 15:50 04:28 Creatine Kinase 30 L CK-MB (CK-2) 0.45 Troponin I 0.050 NT-Pro-B Natriuret Pep 9830 H Impressions: Chest Ultrasound 04/13/18 09:30 IMPRESSION: No thoracentesis was performed. Chest X-Ray 04/14/18 06:00 IMPRESSION: No significant change. Assessment & Plan - Diagnosis (1) Pleural effusion Is this a current diagnosis for this admission?: Yes Plan: Ultrasound-guided thoracentesis could not be done. General surgeon consulted for chest tube insertion. (2) Acute respiratory failure with hypoxia and hypercapnia Is this a current diagnosis for this admission?: Yes Plan: Patient has been on mechanical ventilation. Dr. Finney has been following this patient. (3) Pneumonia Is this a current diagnosis for this admission?: Yes Plan: Continue empiric triple antibiotics. (4) Chronic atrial fibrillation with RVR Is this a current diagnosis for this admission?: Yes Plan: Now rate controlled. (5) Type 2 diabetes mellitus Is this a current diagnosis for this admission?: Yes Plan: Continue current regimen (6) COPD (chronic obstructive pulmonary disease) Qualifiers: Emphysema type: unspecified Is this a current diagnosis for this admission?: Yes Plan: Continue bronchodilators (7) Acute on chronic systolic CHF (congestive heart failure) Is this a current diagnosis for this admission?: Yes Plan: We will cautiously diurese him. (8) Morbid obesity Is this a current diagnosis for this admission?: Yes Plan: I would encourage patient to do lifestyle modification
[2018-04-14] MEDS: LEVOFLOXACIN 750 MG/D5W RTU 750 MG/150 ML RTUPB IV SCH (17:57)
--- NOTE | 2018-04-14 20:25 | Progress Note ---
Provider Note Provider Note: CARDIOLOGY PROGRESS NOTE by Dr. Corina Moura on 04/14/2018. SUBJECTIVE: The patient continues to be intubated and sedated. His ABGs at 65% FiO2 showed hypercapnia and hypoxia. His O2 delivery has been increased. The patient remains in sinus rhythm with very occasional APCs. Monitor shows that the patient is right bundle branch block pattern. There is no ventricular arrhythmia seen on the monitor. PHYSICAL EXAM: The patient is morbidly obese. He is not fighting the ventilator. Selected Entries 04/14/18 04/14/18 04/14/18 09:01 09:45 12:01 Temperature 98.2 F 98.1 F Pulse Rate 69 Heart Rate ( 74 79 Monitors) Respiratory 15 15 Rate Blood Pressure 135/50 H Blood Pressure 78 Mean O2 Sat by Pulse 98 Oximetry Fraction of 90 Inspired Oxygen (FIO2) Premature 3 Ventricular Counted Beats HEAD: Head is atraumatic and normocephalic. EYES: Pupils are equal round regular reactive to light accommodation. Extraocular movements are normal, there is no conjunctival pallor, and no scleral icterus. EARS: Tympanic membranes are intact external auditory canals are clear. NOSE: There is no inflammation of the nasal mucous membrane there is no deviated nasal septum. MOUTH: Mucous membranes of mouth and tongue are moist, there is no ulcers in the mouth or tongue, and no bleeding from the gums. THROAT: There is no redness of the oropharynx, no exudate seen. SKIN: There is no petechia or ecchymosis. There is no rashes or lesions. NECK: Supple. There is no JVD. Carotids are equal there is no bruit. There is no lymphadenopathy. There is no goiter. Trachea central LUNGS: There is diminished air entry and prolonged expiration. Clear to auscultation bilaterally, no wheezes, rales, but there is diffuse rhonchi. On percussion there is hyperresonance although there is no chest wall tenderness HEART: S1 and S2 are heard. S1 is of variable intensity, there is no S3 or S4 gallops. There is a systolic murmur the left sternal border and the apex. There is no rub. ABDOMEN: Normoactive bowel sounds, soft, nontender, no masses, no rebound, no guarding. There is no hepatosplenomegaly. EXTREMITIES: Femorals are slightly diminished. There is no femoral bruits. Leg pulses are diminished. There is no pedal edema. There is no DVT or cellulitis. There is no cyanosis or clubbing. There is no calf tenderness. NEUROLOGICAL the patient is awake alert oriented 3 with no focal deficits. PSYCHIATRIC: The patient judgment and insight are intact his affect is normal. 04/14/18 04/14/18 04/14/18 04:28 04:28 04:28 WBC 6.4 RBC 3.37 L Hgb 9.1 L Hct 27.9 L MCV 83 MCH 26.9 L MCHC 32.4 RDW 20.9 H Plt Count 194 Carbonic Acid 1.47 H HCO3/H2CO3 Ratio 19:1 ABG pH 7.38 ABG pCO2 48.8 H ABG pO2 69.0 L ABG HCO3 28.2 H ABG Total CO2 29.7 H ABG O2 Saturation 93.3 L ABG Base Excess 2.6 Sodium 140.1 Potassium 4.2 Chloride 106 Carbon Dioxide 30 Anion Gap 4 L BUN 13 Creatinine 1.11 Est GFR (Non-Af Amer) > 60 Glucose 114 H Calcium 7.8 L Magnesium 2.0 NT-Pro-B Natriuret Pep 04/14/18 04:28 WBC RBC Hgb Hct MCV MCH MCHC RDW Plt Count Carbonic Acid HCO3/H2CO3 Ratio ABG pH ABG pCO2 ABG pO2 ABG HCO3 ABG Total CO2 ABG O2 Saturation ABG Base Excess Sodium Potassium Chloride Carbon Dioxide Anion Gap BUN Creatinine Est GFR (Non-Af Amer) Glucose Calcium Magnesium NT-Pro-B Natriuret Pep 9830 H IMPRESSION/RECOMMENDATION: 1. Recurrence of paroxysmal atrial flutter with rapid ventricular response. The patient converted to sinus rhythm. At present the patient in sinus rhythm with controlled ventricular response. Continue the patient on metoprolol. 2. Septic shock most likely secondary to his pneumonia and acute exacerbation of Cipro COPD: This is resolved. Continue antibiotics. Continue ventilatory support. 3. Acute on chronic respiratory failure: Continue antibiotics and ventilatory support and oxygen. Continue respiratory treatments. 4. Pneumonia: Continue antibiotics. Chest x-ray shows improvement. 5. Acute exacerbation of COPD: Continue current treatment 4. Hypertension: Blood pressure well controlled. 6. Coronary artery disease: At present no evidence of anginal symptoms. 7.. 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 8. Hypertension: Patient was hypotensive requiring inotropes. At present blood pressure is good with the patient off levo fed. 9.. History of diabetes mellitus type 2 insulin-dependent. Continue insulin and monitor blood sugar and adjust insulin dosage as per blood sugar. 10.. Tobacco abuse: 11. Moderate pulmonary hypertension: 12. History of sleep apnea. Intolerant to CPAP. 13. RIGHT BUNDLE BRANCH PATTERN. With left axis deviation, with left anterior fascicular block. 14. Patient made DNR at this visit. Medications reviewed. Medications discussed with attending physician. MANAGEMENT PLAN DISCUSSED WITH THE ATTENDING PHYSICIAN. MEDICAL DECISION MAKING IS OF MODERATE COMPLEXITY FROM THE CARDIAC STANDPOINT. NOTE CARDIAC STATUS IS STABLE. WILL SIGN OFF. PLEASE CALL ME IF MY SERVICES ARE NEEDED 40 minutes spent on this patient, with more than 50% of time spent in direct patient care.
[2018-04-15] MEDS: IPRATROPIUM/ALBUTEROL 0.5-2.5 MG/3 ML AMPUL NEB SCH ×4 (01:59→20:26)
[2018-04-15 04:00] LABS: ABSOLUTE LYMPHOCYTES (AUTO) 0.6 10^3/uL (0.5-4.7); ABSOLUTE MONOCYTES (AUTO) 0.6 10^3/uL (0.1-1.4); ABSOLUTE NEUT (AUTO) 5.8 10^3/uL (1.7-8.2); BASOPHILS % (AUTO) 0.4 % (0-2); EOSINOPHILS % (AUTO) 0.6 % (0-6); HEMATOCRIT 30.1 % (37.9-51.0); HEMOGLOBIN 9.6 g/dL (13.5-17.0); LYMPHOCYTES % (AUTO) 8.7 % (13-45); MEAN CORPUSCULAR HEMOGLOBIN 26.3 pg (27.0-33.4); MEAN CORPUSCULAR HGB CONC 31.8 g/dL (32.0-36.0); MEAN CORPUSCULAR VOLUME 83 fl (80-97); PLATELET COUNT 211 10^3/uL (150-450); RED BLOOD COUNT 3.63 10^6/uL (4.35-5.55); RED CELL DISTRIBUTION WIDTH 20.8 % (11.5-14.0); SEGMENTED NEUTROPHILS % (AUTO) 81.3 % (42-78); TOTAL CELLS COUNTED % (AUTO) 100 %; WHITE BLOOD COUNT 7.2 10^3/uL (4.0-10.5)
[2018-04-15 04:18] LABS: ANION GAP 7 (5-19); BLOOD UREA NITROGEN 13 mg/dL (7-20); CALCIUM 7.9 mg/dL (8.4-10.2); CARBON DIOXIDE 26 mmol/L (22-30); CHLORIDE 108 mmol/L (98-107); GLUCOSE 94 mg/dL (75-110); PHOSPHORUS 3.5 mg/dL (2.5-4.5); POTASSIUM 4.3 mmol/L (3.6-5.0); SODIUM 140.5 mmol/L (137-145)
[2018-04-15 04:49] LABS: ARTERIAL BLOOD BASE EXCESS 0.2 mmol/L; ARTERIAL BLOOD H2CO3 1.32 mmol/L (1.05-1.35); ARTERIAL BLOOD HCO3 25.4 mmol/L (20-24); ARTERIAL BLOOD PCO2 43.9 mmHg (35-45); ARTERIAL BLOOD PH 7.38 (7.35-7.45); ARTERIAL BLOOD PO2 67.1 mmHg (80-100); ARTERIAL BLOOD TOTAL CO2 26.7 mmol/L (23-27)
[2018-04-15 04:50] LABS: ARTERIAL BLOOD FIO2 75%
[2018-04-15] MEDS: INSULIN LISPRO 100 UNIT/ML 3 ML VIAL SUBCUT SCH ×4 (05:04→18:04)
[2018-04-15] MEDS: MIDAZOLAM HCL 50 MG/100 ML RTUINJ IV PRN ×2 (05:05→19:58)
[2018-04-15] MEDS: HEPARIN SOD (PORCINE) 5,000 UNIT/ML 1 ML SYRINGE SUBCUT SCH ×3 (05:31→21:18)
[2018-04-15] MEDS: METOPROLOL TARTRATE 25 MG TABLET PO SCH ×2 (05:32→18:05)
--- NOTE | 2018-04-15 08:26 | RADIOLOGY REPORT (SQ) ---
EXAM DESCRIPTION: CHEST SINGLE VIEW COMPLETED DATE/TIME: 04/15/2018 6:41 am REASON FOR STUDY: resp fail effusion pna COMPARISON: Chest films 04/13/2018, 04/14/2018 EXAM PARAMETERS: NUMBER OF VIEWS: One view. TECHNIQUE: Single frontal radiographic view of the chest acquired. RADIATION DOSE: NA LIMITATIONS: None. FINDINGS: LUNGS AND PLEURA: A left-sided chest tube is in place. No pneumothorax. Persistent left lower lobe collapse and consolidation. On the right side, no pleural effusion or pneumothorax is present. Minimal right medial lung base at electasis versus pneumonia. MEDIASTINUM AND HILAR STRUCTURES: No masses. Contour normal. HEART AND VASCULAR STRUCTURES: Stable marked cardiomegaly BONES: No acute findings. HARDWARE: Endotracheal tube tip midtrachea. Right subclavian central line tip in the SVC/ right brac hiocephalic vein. Nasogastric tube tip and side port in the stomach. Left chest tube tip and side p ort over the lower left pleural space. OTHER: No other significant finding. IMPRESSION: Left chest tube in place. No pneumothorax. Persistent left lower lobe collapse and con solidation. Persistent right medial lung base collapse and consolidation Tubes and lines in good positioning TECHNICAL DOCUMENTATION: JOB ID: [id number] [employer] All Rights Reserved Reading location - IP/workstation name: [email or web address]
[2018-04-15] MEDS: ACETYLCYSTEINE 20% SOLN 800 MG/4 ML VIAL.NEB NEB SCH ×2 (08:31→20:26)
[2018-04-15] MEDS: NORMAL SALINE 1000 ML 1,000 ML IV PRN ×2 (08:41→17:52)
[2018-04-15] MEDS ORDERED: FUROSEMIDE INJ/PF 40 MG/4 ML SDV IV ONE (09:30)
[2018-04-15] MEDS: DIGOXIN 0.25 MG TABLET PO SCH (09:44)
[2018-04-15] MEDS: PANTOPRAZOLE SODIUM 40 MG VIAL IV SCH ×2 (09:45→21:18)
[2018-04-15] MEDS ORDERED: LIDOCAINE 2% INJ (20 MG/ML) 20 ML MDV ONE (11:58)
--- NOTE | 2018-04-15 12:18 | PDOC PROGRESS REPORT ---
Subjective Progress Note for:: 04/14/18 Subjective:: Remains intubated and sedated Reason For Visit: ACUTE RESPIRATORY FAILURE WITH HYPOXIA Physical Exam Vital Signs: Temp Pulse Resp BP Pulse Ox 97.7 F 70 15 119/57 L 95 04/14/18 08:00 04/14/18 08:00 04/14/18 08:00 04/14/18 08:00 04/14/18 08:00 Intake & Output 04/13/18 04/14/18 04/15/18 06:59 06:59 06:59 Intake Total 1999 1532 Output Total 1185 2645 150 Balance 815 -1112 -150 Weight 126.9 kg 128.8 kg General appearance: PRESENT: no acute distress, disheveled, morbidly obese. ABSENT: cooperative Head exam: PRESENT: atraumatic, normocephalic Eye exam: PRESENT: conjunctiva pale. ABSENT: EOMI, nystagmus, periorbital swelling, scleral icterus Mouth exam: PRESENT: dry mucosa, neck supple, tongue midline, other - ET tube in place Neck exam: ABSENT: carotid bruit, JVD, lymphadenopathy, thyromegaly, tracheal deviation, tracheostomy Respiratory exam: PRESENT: decreased breath sounds, prolonged expiratory phas, rales, rhonchi, unlabored. ABSENT: retraction, stridor Cardiovascular exam: PRESENT: RRR, +S1, +S2, tachycardia Pulses: PRESENT: normal radial pulses GI/Abdominal exam: PRESENT: soft. ABSENT: tenderness Gentrourinary exam: PRESENT: indwelling catheter Extremities exam: PRESENT: pedal edema. ABSENT: calf tenderness, clubbing, joint swelling Musculoskeletal exam: ABSENT: deformity, dislocation Neurological exam: ABSENT: awake Skin exam: PRESENT: dry, warm Results Laboratory Results: 04/14/18 04:28 04/14/18 04:28 04/13/18 04/14/18 04/14/18 13:55 04:28 04:28 WBC RBC Hgb Hct MCV MCH MCHC RDW Plt Count Seg Neutrophils % Lymphocytes % Monocytes % Eosinophils % Basophils % Absolute Neutrophils Absolute Lymphocytes Absolute Monocytes Absolute Eosinophils Absolute Basophils Carbonic Acid 1.47 H HCO3/H2CO3 Ratio 19:1 ABG pH 7.38 ABG pCO2 48.8 H ABG pO2 69.0 L ABG HCO3 28.2 H ABG O2 Saturation 93.3 L ABG Base Excess 2.6 FiO2 65% Sodium 140.1 Potassium 4.2 Chloride 106 Carbon Dioxide 30 Anion Gap 4 L BUN 13 Creatinine 1.11 Est GFR ( Amer) > 60 Est GFR (Non-Af Amer) > 60 Glucose 114 H Calcium 7.8 L Magnesium 2.0 Total Protein 3.5 L 04/14/18 04:28 WBC 6.4 RBC 3.37 L Hgb 9.1 L Hct 27.9 L MCV 83 MCH 26.9 L MCHC 32.4 RDW 20.9 H Plt Count 194 Seg Neutrophils % 77.4 Lymphocytes % 10.9 L Monocytes % 10.0 Eosinophils % 1.2 Basophils % 0.5 Absolute Neutrophils 4.9 Absolute Lymphocytes 0.7 Absolute Monocytes 0.6 Absolute Eosinophils 0.1 Absolute Basophils 0.0 Carbonic Acid HCO3/H2CO3 Ratio ABG pH ABG pCO2 ABG pO2 ABG HCO3 ABG O2 Saturation ABG Base Excess FiO2 Sodium Potassium Chloride Carbon Dioxide Anion Gap BUN Creatinine Est GFR ( Amer) Est GFR (Non-Af Amer) Glucose Calcium Magnesium Total Protein 04/09/18 01:15 Blood Blood Culture - Final NO GROWTH IN 5 DAYS 04/08/18 21:58 Blood Blood Culture - Final NO GROWTH IN 5 DAYS 04/08/18 04/08/18 04/09/18 21:58 21:58 04:15 Creatine Kinase < 20 L CK-MB (CK-2) Troponin I 0.038 NT-Pro-B Natriuret Pep 5370 H 04/09/18 04/09/18 04/09/18 04:15 10:44 10:44 Creatine Kinase < 20 L CK-MB (CK-2) 1.06 0.64 Troponin I 0.034 0.046 NT-Pro-B Natriuret Pep 04/09/18 04/09/18 04/14/18 15:50 15:50 04:28 Creatine Kinase 30 L CK-MB (CK-2) 0.45 Troponin I 0.050 NT-Pro-B Natriuret Pep 9830 H Impressions: Chest Ultrasound 04/13/18 09:30 IMPRESSION: No thoracentesis was performed. Chest X-Ray 04/14/18 06:00 IMPRESSION: No significant change. Assessment & Plan - Diagnosis (1) Acute respiratory failure with hypoxia and hypercapnia Is this a current diagnosis for this admission?: Yes Plan: Requiring higher FiO2's last surgery to place chest tube (2) Atrial fibrillation with rapid ventricular response Is this a current diagnosis for this admission?: Yes Plan: Fairly well controlled at this time (3) COPD (chronic obstructive pulmonary disease) Qualifiers: Emphysema type: unspecified Is this a current diagnosis for this admission?: Yes Plan: Continue current bronchodilator therapy (4) Morbid obesity Is this a current diagnosis for this admission?: Yes Plan: nutritional consult - Time Total Critical Time (Minutes): 40
--- NOTE | 2018-04-15 12:20 | PDOC PROGRESS REPORT ---
Subjective Progress Note for:: 04/15/18 Subjective:: Remains intubated and sedated Reason For Visit: ACUTE RESPIRATORY FAILURE WITH HYPOXIA Physical Exam Vital Signs: Temp Pulse Resp BP Pulse Ox 98.1 F 85 16 124/66 96 04/15/18 08:00 04/15/18 08:31 04/15/18 08:31 04/15/18 08:00 04/15/18 08:31 Intake & Output 04/14/18 04/15/18 04/16/18 06:59 06:59 06:59 Intake Total 1982 2300 1150 Output Total 2645 2260 225 Balance -662 40 925 Weight 128.8 kg 127.8 kg General appearance: PRESENT: no acute distress, disheveled, morbidly obese. ABSENT: cooperative Head exam: PRESENT: normocephalic Eye exam: PRESENT: conjunctiva pale. ABSENT: nystagmus, periorbital swelling, scleral icterus Mouth exam: PRESENT: dry mucosa, neck supple, tongue midline, other - ET tube in place Neck exam: ABSENT: carotid bruit, full ROM, JVD, lymphadenopathy, meningismus, tenderness, thyromegaly, tracheal deviation, tracheostomy, other Respiratory exam: PRESENT: decreased breath sounds, prolonged expiratory phas, rales, rhonchi, unlabored. ABSENT: retraction, stridor Cardiovascular exam: PRESENT: RRR, +S1, +S2, tachycardia Pulses: PRESENT: normal radial pulses GI/Abdominal exam: PRESENT: soft. ABSENT: tenderness Gentrourinary exam: PRESENT: indwelling catheter Extremities exam: PRESENT: pedal edema, +1 edema. ABSENT: calf tenderness, clubbing, joint swelling Musculoskeletal exam: ABSENT: ambulatory, deformity, dislocation Neurological exam: ABSENT: awake Skin exam: PRESENT: dry, warm Results Laboratory Results: 04/15/18 03:47 04/15/18 03:47 04/14/18 04/14/18 04/15/18 10:20 11:50 03:47 WBC RBC Hgb Hct MCV MCH MCHC RDW Plt Count Seg Neutrophils % Lymphocytes % Monocytes % Eosinophils % Basophils % Absolute Neutrophils Absolute Lymphocytes Absolute Monocytes Absolute Eosinophils Absolute Basophils Carbonic Acid HCO3/H2CO3 Ratio ABG pH ABG pCO2 ABG pO2 ABG HCO3 ABG O2 Saturation ABG Base Excess FiO2 Sodium 140.5 Potassium 4.3 Chloride 108 H Carbon Dioxide 26 Anion Gap 7 BUN 13 Creatinine 1.01 1.06 Est GFR ( Amer) > 60 > 60 Est GFR (Non-Af Amer) > 60 > 60 Glucose 94 Calcium 7.9 L Phosphorus 3.5 Magnesium 2.0 Fluid Type PLEURAL Fluid Source LUNG Fluid Color ALY Fluid Appearance CLOUDY Fluid Viscosity LIQUID Fluid WBC 636 Fluid RBC 26495 04/15/18 04/15/18 03:47 04:39 WBC 7.2 RBC 3.63 L Hgb 9.6 L Hct 30.1 L MCV 83 MCH 26.3 L MCHC 31.8 L RDW 20.8 H Plt Count 211 Seg Neutrophils % 81.3 H Lymphocytes % 8.7 L Monocytes % 9.0 Eosinophils % 0.6 Basophils % 0.4 Absolute Neutrophils 5.8 Absolute Lymphocytes 0.6 Absolute Monocytes 0.6 Absolute Eosinophils 0.0 Absolute Basophils 0.0 Carbonic Acid 1.32 HCO3/H2CO3 Ratio 19:1 ABG pH 7.38 ABG pCO2 43.9 ABG pO2 67.1 L ABG HCO3 25.4 H ABG O2 Saturation 93.0 L ABG Base Excess 0.2 FiO2 75% Sodium Potassium Chloride Carbon Dioxide Anion Gap BUN Creatinine Est GFR ( Amer) Est GFR (Non-Af Amer) Glucose Calcium Phosphorus Magnesium Fluid Type Fluid Source Fluid Color Fluid Appearance Fluid Viscosity Fluid WBC Fluid RBC 04/08/18 04/08/18 04/09/18 21:58 21:58 04:15 Creatine Kinase < 20 L CK-MB (CK-2) Troponin I 0.038 NT-Pro-B Natriuret Pep 5370 H 04/09/18 04/09/18 04/09/18 04:15 10:44 10:44 Creatine Kinase < 20 L CK-MB (CK-2) 1.06 0.64 Troponin I 0.034 0.046 NT-Pro-B Natriuret Pep 04/09/18 04/09/18 04/14/18 15:50 15:50 04:28 Creatine Kinase 30 L CK-MB (CK-2) 0.45 Troponin I 0.050 NT-Pro-B Natriuret Pep 9830 H Impressions: Chest Ultrasound 04/13/18 09:30 IMPRESSION: No thoracentesis was performed. Chest X-Ray 04/15/18 06:00 IMPRESSION: Left chest tube in place. No pneumothorax. Persistent left lower lobe collapse and consolidation. Persistent right medial lung base collapse and consolidation Tubes and lines in good positioning Assessment & Plan - Diagnosis (1) Acute respiratory failure with hypoxia and hypercapnia Is this a current diagnosis for this admission?: Yes Plan: Changed to require increasing FiO2 C with fiberoptic bronchoscopy to help resolve atelectasis in the left lung base (2) Atrial fibrillation with rapid ventricular response Is this a current diagnosis for this admission?: Yes Plan: Fairly well controlled at this time (3) COPD (chronic obstructive pulmonary disease) Qualifiers: Emphysema type: unspecified Is this a current diagnosis for this admission?: Yes Plan: Continue current bronchodilator therapy (4) Morbid obesity Is this a current diagnosis for this admission?: Yes Plan: nutritional consult - Time Total Critical Time (Minutes): 45
--- NOTE | 2018-04-15 12:53 | Operative Report ---
Operative Report DATE OF SURGERY: 04/15/18 Operative Report: 67-year-old male intubated sedated in the left lower lobe atelectasis and left pleural effusion patient is intubated using T size tracheobronchial T size [place] scope was tracheobronchial tree was explored there is no splenic gerhard is large amount of purulent secretions at the gerhard proceeded into the left mainstem bronchus the left upper lobe in particular left lower lobe there was scant secretions in the right mainstem bronchus right bronchus intermedius right middle lobe right lower lobe or right upper lobe patient tolerated procedure well and is post procedure is SaO2 is 96% PREOPERATIVE DIAGNOSIS: Left lower lobe atelectasis/mucous plugging POSTOPERATIVE DIAGNOSIS: Same OPERATION: Fiberoptic bronchoscopy with bronchoalveolar lavage SURGEON: OTF IBRAHIM ANESTHESIA: GA TISSUE REMOVED OR ALTERED: 100Cc of bronchoalveolar lavage COMPLICATIONS: None ESTIMATED BLOOD LOSS: None
[2018-04-15 14:25] LABS: FLUID SOURCE LUNG; FLUID TYPE BRONCHIAL WASH
[2018-04-15 14:26] LABS: FLUID APPEARANCE OPAQUE; FLUID COLOR STRAW; FLUID VISCOSITY SLIGHTLY VISCOUS
[2018-04-15] MEDS ORDERED: ASPIRIN 81 MG TABLET, CHEWABLE ONE (14:37)
[2018-04-15] MEDS: ASPIRIN 81 MG TABLET, CHEWABLE PEG SCH (14:40)
[2018-04-15] MEDS: LEVOFLOXACIN 750 MG/D5W RTU 750 MG/150 ML RTUPB IV SCH (17:48)
--- NOTE | 2018-04-15 17:52 | PDOC PROGRESS REPORT ---
Subjective Progress Note for:: 04/15/18 Subjective:: Patient remained intubated. Chest tube inserted to drain left pleural effusion. Patient also undergoing bronchoscopy performed by Dr. Finney for left lung atelectasis/mucous plug. Reason For Visit: ACUTE RESPIRATORY FAILURE WITH HYPOXIA Physical Exam Vital Signs: Temp Pulse Resp BP Pulse Ox 99.0 F 101 H 15 123/56 L 97 04/15/18 14:02 04/15/18 14:00 04/15/18 14:02 04/15/18 14:02 04/15/18 17:03 Intake & Output 04/14/18 04/15/18 04/16/18 06:59 06:59 06:59 Intake Total 1982 2300 1250 Output Total 2645 2260 2300 Balance -662 40 -1050 Weight 128.8 kg 127.8 kg General appearance: PRESENT: no acute distress Respiratory exam: PRESENT: crackles, decreased breath sounds Cardiovascular exam: PRESENT: RRR. ABSENT: diastolic murmur, rubs, systolic murmur Results Laboratory Results: 04/15/18 03:47 04/15/18 03:47 04/14/18 04/14/18 04/14/18 11:50 11:50 11:50 WBC RBC Hgb Hct MCV MCH MCHC RDW Plt Count Seg Neutrophils % Lymphocytes % Monocytes % Eosinophils % Basophils % Absolute Neutrophils Absolute Lymphocytes Absolute Monocytes Absolute Eosinophils Absolute Basophils Carbonic Acid HCO3/H2CO3 Ratio ABG pH ABG pCO2 ABG pO2 ABG HCO3 ABG O2 Saturation ABG Base Excess FiO2 Sodium Potassium Chloride Carbon Dioxide Anion Gap BUN Creatinine Est GFR ( Amer) Est GFR (Non-Af Amer) Glucose Calcium Phosphorus Magnesium Fluid Type Fluid Source Fluid Color Fluid Appearance Fluid Viscosity Fluid pH 8.4 Fluid WBC Fluid RBC Fluid Glucose 122 Fluid Total Protein Fluid LDH Fluid Amylase 29 04/14/18 04/14/18 04/15/18 11:50 11:50 03:47 WBC RBC Hgb Hct MCV MCH MCHC RDW Plt Count Seg Neutrophils % Lymphocytes % Monocytes % Eosinophils % Basophils % Absolute Neutrophils Absolute Lymphocytes Absolute Monocytes Absolute Eosinophils Absolute Basophils Carbonic Acid HCO3/H2CO3 Ratio ABG pH ABG pCO2 ABG pO2 ABG HCO3 ABG O2 Saturation ABG Base Excess FiO2 Sodium 140.5 Potassium 4.3 Chloride 108 H Carbon Dioxide 26 Anion Gap 7 BUN 13 Creatinine 1.06 Est GFR ( Amer) > 60 Est GFR (Non-Af Amer) > 60 Glucose 94 Calcium 7.9 L Phosphorus 3.5 Magnesium 2.0 Fluid Type Fluid Source Fluid Color Fluid Appearance Fluid Viscosity Fluid pH Fluid WBC Fluid RBC Fluid Glucose Fluid Total Protein 1.6 Fluid LDH 147 Fluid Amylase 04/15/18 04/15/18 04/15/18 03:47 04:39 12:32 WBC 7.2 RBC 3.63 L Hgb 9.6 L Hct 30.1 L MCV 83 MCH 26.3 L MCHC 31.8 L RDW 20.8 H Plt Count 211 Seg Neutrophils % 81.3 H Lymphocytes % 8.7 L Monocytes % 9.0 Eosinophils % 0.6 Basophils % 0.4 Absolute Neutrophils 5.8 Absolute Lymphocytes 0.6 Absolute Monocytes 0.6 Absolute Eosinophils 0.0 Absolute Basophils 0.0 Carbonic Acid 1.32 HCO3/H2CO3 Ratio 19:1 ABG pH 7.38 ABG pCO2 43.9 ABG pO2 67.1 L ABG HCO3 25.4 H ABG O2 Saturation 93.0 L ABG Base Excess 0.2 FiO2 75% Sodium Potassium Chloride Carbon Dioxide Anion Gap BUN Creatinine Est GFR ( Amer) Est GFR (Non-Af Amer) Glucose Calcium Phosphorus Magnesium Fluid Type BRONCHIAL WASH Fluid Source LUNG Fluid Color STRAW Fluid Appearance [place] Fluid Viscosity SLIGHTLY VISCOUS Fluid pH Fluid WBC 85775 Fluid RBC 3733 Fluid Glucose Fluid Total Protein Fluid LDH Fluid Amylase 04/08/18 04/08/18 04/09/18 21:58 21:58 04:15 Creatine Kinase < 20 L CK-MB (CK-2) Troponin I 0.038 NT-Pro-B Natriuret Pep 5370 H 04/09/18 04/09/18 04/09/18 04:15 10:44 10:44 Creatine Kinase < 20 L CK-MB (CK-2) 1.06 0.64 Troponin I 0.034 0.046 NT-Pro-B Natriuret Pep 04/09/18 04/09/18 04/14/18 15:50 15:50 04:28 Creatine Kinase 30 L CK-MB (CK-2) 0.45 Troponin I 0.050 NT-Pro-B Natriuret Pep 9830 H Impressions: Chest Ultrasound 04/13/18 09:30 IMPRESSION: No thoracentesis was performed. Chest X-Ray 04/15/18 06:00 IMPRESSION: Left chest tube in place. No pneumothorax. Persistent left lower lobe collapse and consolidation. Persistent right medial lung base collapse and consolidation Tubes and lines in good positioning Assessment & Plan - Diagnosis (1) Left lower lobe atelectasis/plug Is this a current diagnosis for this admission?: Yes Plan: Status post bronchoscopy (2) Pleural effusion Is this a current diagnosis for this admission?: Yes Plan: Status post chest tube insertion (3) Acute respiratory failure with hypoxia and hypercapnia Is this a current diagnosis for this admission?: Yes Plan: Patient has been on mechanical ventilation. Dr. Finney has been following this patient. (4) Pneumonia Is this a current diagnosis for this admission?: Yes Plan: Continue empiric triple antibiotics. (5) Chronic atrial fibrillation with RVR Is this a current diagnosis for this admission?: Yes Plan: Now rate controlled. (6) Type 2 diabetes mellitus Is this a current diagnosis for this admission?: Yes Plan: Continue current regimen (7) COPD (chronic obstructive pulmonary disease) Qualifiers: Emphysema type: unspecified Is this a current diagnosis for this admission?: Yes Plan: Continue bronchodilators (8) Acute on chronic systolic CHF (congestive heart failure) Is this a current diagnosis for this admission?: Yes Plan: We will cautiously diurese him. (9) Morbid obesity Is this a current diagnosis for this admission?: Yes Plan: I would encourage patient to do lifestyle modification
--- NOTE | 2018-04-15 22:14 | EKG REPORT ---
SEVERITY:- ABNORMAL ECG - SINUS TACHYCARDIA MULTIPLE ATRIAL PREMATURE COMPLEXES RIGHT BUNDLE BRANCH BLOCK INFERIOR INFARCT, AGE INDETERMINATE CONSIDER ANTERIOR INFARCT : Confirmed by: Harjinder Pierce 15-Apr-2018 22:13:55
[2018-04-16] MEDS: IPRATROPIUM/ALBUTEROL 0.5-2.5 MG/3 ML AMPUL NEB SCH ×4 (02:23→21:13)
[2018-04-16 04:47] LABS: ABSOLUTE EOSINOPHILS # (AUTO) 0.1 10^3/uL (0.0-0.6); ABSOLUTE LYMPHOCYTES (AUTO) 0.6 10^3/uL (0.5-4.7); ABSOLUTE MONOCYTES (AUTO) 0.6 10^3/uL (0.1-1.4); BASOPHILS % (AUTO) 0.5 % (0-2); EOSINOPHILS % (AUTO) 1.1 % (0-6); HEMATOCRIT 27.2 % (37.9-51.0); HEMOGLOBIN 8.8 g/dL (13.5-17.0); LYMPHOCYTES % (AUTO) 11.6 % (13-45); MEAN CORPUSCULAR HEMOGLOBIN 26.8 pg (27.0-33.4); MEAN CORPUSCULAR HGB CONC 32.4 g/dL (32.0-36.0); MEAN CORPUSCULAR VOLUME 83 fl (80-97); MONOCYTES % (AUTO) 11.2 % (3-13); PLATELET COUNT 202 10^3/uL (150-450); RED BLOOD COUNT 3.28 10^6/uL (4.35-5.55); RED CELL DISTRIBUTION WIDTH 21.2 % (11.5-14.0); SEGMENTED NEUTROPHILS % (AUTO) 75.6 % (42-78); TOTAL CELLS COUNTED % (AUTO) 100 %; WHITE BLOOD COUNT 5.3 10^3/uL (4.0-10.5)
[2018-04-16 05:00] LABS: ANION GAP 6 (5-19); BLOOD UREA NITROGEN 15 mg/dL (7-20); CALCIUM 8.1 mg/dL (8.4-10.2); CARBON DIOXIDE 28 mmol/L (22-30); CHLORIDE 106 mmol/L (98-107); GLUCOSE 85 mg/dL (75-110); SODIUM 140.4 mmol/L (137-145)
[2018-04-16] MEDS: METOPROLOL TARTRATE 25 MG TABLET PO SCH ×2 (05:06→17:08)
[2018-04-16] MEDS: HEPARIN SOD (PORCINE) 5,000 UNIT/ML 1 ML SYRINGE SUBCUT SCH ×3 (05:07→21:49)
[2018-04-16 05:36] LABS: ARTERIAL BLOOD BASE EXCESS 0 mmol/L; ARTERIAL BLOOD FIO2 50%; ARTERIAL BLOOD H2CO3 1.31 mmol/L (1.05-1.35); ARTERIAL BLOOD HCO3 25.2 mmol/L (20-24); ARTERIAL BLOOD O2 SATURATION 96.4 % (94-98); ARTERIAL BLOOD PCO2 43.5 mmHg (35-45); ARTERIAL BLOOD PH 7.38 (7.35-7.45); ARTERIAL BLOOD PO2 86.9 mmHg (80-100); ARTERIAL BLOOD TOTAL CO2 26.5 mmol/L (23-27)
[2018-04-16] MEDS: INSULIN LISPRO 100 UNIT/ML 3 ML VIAL SUBCUT SCH ×5 (05:54→23:47)
[2018-04-16] MEDS: NORMAL SALINE 1000 ML 1,000 ML IV PRN ×2 (06:19→17:29)
[2018-04-16] MEDS: ACETYLCYSTEINE 20% SOLN 800 MG/4 ML VIAL.NEB NEB SCH ×2 (08:37→21:13)
--- NOTE | 2018-04-16 08:40 | RADIOLOGY REPORT (SQ) ---
EXAM DESCRIPTION: CHEST SINGLE VIEW COMPLETED DATE/TIME: 04/16/2018 6:04 am REASON FOR STUDY: resp failure COMPARISON: Chest films 04/13/2018, 04/14/2018, 04/15/2018 EXAM PARAMETERS: NUMBER OF VIEWS: One view. TECHNIQUE: Single frontal radiographic view of the chest acquired. RADIATION DOSE: NA LIMITATIONS: None. FINDINGS: LUNGS AND PLEURA: Left chest tube in place. No left-sided pneumothorax. There is persistent bibasilar consolidation left greater than right. This is stable compared to prev ious study. No right pleural effusion. No right pneumothorax. MEDIASTINUM AND HILAR STRUCTURES: No masses. Contour normal. HEART AND VASCULAR STRUCTURES: Stable cardiomegaly BONES: No acute findings. HARDWARE: Endotracheal tube, nasogastric tube, in good positioning. Right subclavian central line ti p in the superior vena cava. Left chest tube in place. Implanted left cardiac monitoring device ove r the anterior chest OTHER: No other significant finding. IMPRESSION: Left chest tube in place. No pneumothorax. Persistent bibasilar consolidation left greater than right, unchanged TECHNICAL DOCUMENTATION: JOB ID: [id number] [employer]- All Rights Reserved Reading location - IP/workstation name: [email or web address]
[2018-04-16] MEDS: MIDAZOLAM HCL 50 MG/100 ML RTUINJ IV PRN ×2 (09:47→17:08)
[2018-04-16] MEDS: DIGOXIN 0.25 MG TABLET PO SCH (10:10)
[2018-04-16] MEDS: ASPIRIN 81 MG TABLET, CHEWABLE PEG SCH (10:11)
--- NOTE | 2018-04-16 17:03 | PDOC PROGRESS REPORT ---
Subjective Progress Note for:: 04/16/18 Subjective:: This is a 67-year-old male patient with multiple comorbidities presented with severe dyspnea which failed to respond to BiPAP and later patient intubated emergently. Of note patient recently discharged from [facility] after he was treated for congestive heart failure. His chest x-ray reported as bibasilar infiltrates and pneumonia cannot be ruled out. Patient had been on triple antibiotics namely cefepime, Levaquin and vancomycin initially but after tracheal aspirate culture grew Pseudomonas aeruginosa, cefepime and vancomycin discontinued and patient kept on Levaquin. At admission patient also found to have A. fib with RVR for which she had been on Cardizem drip. As his heart rates controlled Cardizem discontinued. His chest x-ray also showed right pleural effusion which is to take to be aspirated by interventional radiologist so general surgeon consulted and chest tube inserted. Dr. Finney performed bronchoscopy 2 days ago for left lower lobe collapse/mucous plug which is extracted. This morning I seen patient he is awake alert and responds to command appropriately. Reason For Visit: ACUTE RESPIRATORY FAILURE WITH HYPOXIA Physical Exam Vital Signs: Temp Pulse Resp BP Pulse Ox 99.0 F 82 23 H 185/63 H 92 04/16/18 16:00 04/16/18 16:00 04/16/18 16:00 04/16/18 16:00 04/16/18 16:00 Intake & Output 04/15/18 04/16/18 04/17/18 06:59 06:59 06:59 Intake Total 2300 3250 267 Output Total 2260 3960 450 Balance 40 710 -183 Weight 127.8 kg 127.2 kg General appearance: PRESENT: no acute distress Head exam: PRESENT: atraumatic Eye exam: PRESENT: conjunctival injection Neck exam: ABSENT: carotid bruit, JVD, lymphadenopathy, thyromegaly Respiratory exam: PRESENT: crackles, decreased breath sounds Cardiovascular exam: PRESENT: RRR. ABSENT: diastolic murmur, rubs, systolic murmur Neurological exam: PRESENT: alert, awake Results Laboratory Results: 04/16/18 04:34 04/16/18 04:34 04/16/18 04/16/18 04/16/18 04:34 04:34 05:27 WBC 5.3 RBC 3.28 L Hgb 8.8 L Hct 27.2 L MCV 83 MCH 26.8 L MCHC 32.4 RDW 21.2 H Plt Count 202 Seg Neutrophils % 75.6 Lymphocytes % 11.6 L Monocytes % 11.2 Eosinophils % 1.1 Basophils % 0.5 Absolute Neutrophils 4.0 Absolute Lymphocytes 0.6 Absolute Monocytes 0.6 Absolute Eosinophils 0.1 Absolute Basophils 0.0 Carbonic Acid 1.31 HCO3/H2CO3 Ratio 19:1 ABG pH 7.38 ABG pCO2 43.5 ABG pO2 86.9 ABG HCO3 25.2 H ABG O2 Saturation 96.4 ABG Base Excess 0 FiO2 50% Sodium 140.4 Potassium 4.0 Chloride 106 Carbon Dioxide 28 Anion Gap 6 BUN 15 Creatinine 0.91 Est GFR ( Amer) > 60 Est GFR (Non-Af Amer) > 60 Glucose 85 Calcium 8.1 L Magnesium 1.8 04/08/18 04/08/18 04/09/18 21:58 21:58 04:15 Creatine Kinase < 20 L CK-MB (CK-2) Troponin I 0.038 NT-Pro-B Natriuret Pep 5370 H 04/09/18 04/09/18 04/09/18 04:15 10:44 10:44 Creatine Kinase < 20 L CK-MB (CK-2) 1.06 0.64 Troponin I 0.034 0.046 NT-Pro-B Natriuret Pep 04/09/18 04/09/18 04/14/18 15:50 15:50 04:28 Creatine Kinase 30 L CK-MB (CK-2) 0.45 Troponin I 0.050 NT-Pro-B Natriuret Pep 9830 H Impressions: Chest Ultrasound 04/13/18 09:30 IMPRESSION: No thoracentesis was performed. Chest X-Ray 04/16/18 06:00 IMPRESSION: Left chest tube in place. No pneumothorax. Persistent bibasilar consolidation left greater than right, unchanged Assessment & Plan - Diagnosis (1) Left lower lobe atelectasis/plug Is this a current diagnosis for this admission?: Yes Plan: Status post bronchoscopy (2) Pleural effusion Is this a current diagnosis for this admission?: Yes Plan: Status post chest tube insertion (3) Acute respiratory failure with hypoxia and hypercapnia Is this a current diagnosis for this admission?: Yes Plan: Patient has been on mechanical ventilation. Dr. Finney has been following this patient. (4) Pneumonia Is this a current diagnosis for this admission?: Yes Plan: Continue empiric triple antibiotics. (5) Chronic atrial fibrillation with RVR Is this a current diagnosis for this admission?: Yes Plan: Now rate controlled. (6) Type 2 diabetes mellitus Is this a current diagnosis for this admission?: Yes Plan: Continue current regimen (7) COPD (chronic obstructive pulmonary disease) Qualifiers: Emphysema type: unspecified Is this a current diagnosis for this admission?: Yes Plan: Continue bronchodilators (8) Acute on chronic systolic CHF (congestive heart failure) Is this a current diagnosis for this admission?: Yes Plan: We will cautiously diurese him. (9) Morbid obesity Is this a current diagnosis for this admission?: Yes Plan: BMI 40.2
[2018-04-16] MEDS: LEVOFLOXACIN 750 MG/D5W RTU 750 MG/150 ML RTUPB IV SCH (17:10)
[2018-04-16] MEDS ORDERED: METOPROLOL TARTRATE 25 MG TABLET ONE (17:57)
[2018-04-16] MEDS ORDERED: METOPROLOL TARTRATE 25 MG TABLET NG ONE (18:30)
[2018-04-16] MEDS ORDERED: FENTANYL CITRATE INJ/PF 100 MCG/2 ML AMPUL IV ONE (21:30)
--- NOTE | 2018-04-16 23:00 | PDOC PROGRESS REPORT ---
Subjective Progress Note for:: 04/16/18 Subjective:: intubated Reason For Visit: ACUTE RESPIRATORY FAILURE WITH HYPOXIA Physical Exam Vital Signs: Temp Pulse Resp BP Pulse Ox 99.0 F 85 15 182/69 H 100 04/16/18 18:01 04/16/18 21:20 04/16/18 21:20 04/16/18 18:01 04/16/18 21:20 Intake & Output 04/15/18 04/16/18 04/17/18 06:59 06:59 06:59 Intake Total 2300 3250 1274 Output Total 2260 3960 780 Balance 40 -710 494 Weight 127.8 kg 127.2 kg Exam: left chest tube drainage about 650 ccs total since placement 04/14/18 and appears to be decreasing daily. CXR showed decreased left pleural effusion. Will pull out chest tube hopefully when extubated next 24-48 hrs. Results Laboratory Results: 04/16/18 04:34 04/16/18 04:34 04/16/18 04/16/18 04/16/18 04:34 04:34 05:27 WBC 5.3 RBC 3.28 L Hgb 8.8 L Hct 27.2 L MCV 83 MCH 26.8 L MCHC 32.4 RDW 21.2 H Plt Count 202 Seg Neutrophils % 75.6 Lymphocytes % 11.6 L Monocytes % 11.2 Eosinophils % 1.1 Basophils % 0.5 Absolute Neutrophils 4.0 Absolute Lymphocytes 0.6 Absolute Monocytes 0.6 Absolute Eosinophils 0.1 Absolute Basophils 0.0 Carbonic Acid 1.31 HCO3/H2CO3 Ratio 19:1 ABG pH 7.38 ABG pCO2 43.5 ABG pO2 86.9 ABG HCO3 25.2 H ABG O2 Saturation 96.4 ABG Base Excess 0 FiO2 50% Sodium 140.4 Potassium 4.0 Chloride 106 Carbon Dioxide 28 Anion Gap 6 BUN 15 Creatinine 0.91 Est GFR ( Amer) > 60 Est GFR (Non-Af Amer) > 60 Glucose 85 Calcium 8.1 L Magnesium 1.8 04/08/18 04/08/18 04/09/18 21:58 21:58 04:15 Creatine Kinase < 20 L CK-MB (CK-2) Troponin I 0.038 NT-Pro-B Natriuret Pep 5370 H 04/09/18 04/09/18 04/09/18 04:15 10:44 10:44 Creatine Kinase < 20 L CK-MB (CK-2) 1.06 0.64 Troponin I 0.034 0.046 NT-Pro-B Natriuret Pep 04/09/18 04/09/18 04/14/18 15:50 15:50 04:28 Creatine Kinase 30 L CK-MB (CK-2) 0.45 Troponin I 0.050 NT-Pro-B Natriuret Pep 9830 H Impressions: Chest Ultrasound 04/13/18 09:30 IMPRESSION: No thoracentesis was performed. Chest X-Ray 04/16/18 06:00 IMPRESSION: Left chest tube in place. No pneumothorax. Persistent bibasilar consolidation left greater than right, unchanged
[2018-04-16] MEDS: HYDRALAZINE HCL INJ/PF 20 MG/1 ML SDV IV PRN (23:31)
[2018-04-17] MEDS: MIDAZOLAM HCL 50 MG/100 ML RTUINJ IV PRN ×4 (00:30→22:50)
[2018-04-17] MEDS: IPRATROPIUM/ALBUTEROL 0.5-2.5 MG/3 ML AMPUL NEB SCH ×4 (02:08→20:37)
[2018-04-17 04:52] LABS: ABSOLUTE EOSINOPHILS # (AUTO) 0.1 10^3/uL (0.0-0.6); ABSOLUTE LYMPHOCYTES (AUTO) 0.6 10^3/uL (0.5-4.7); ABSOLUTE MONOCYTES (AUTO) 0.5 10^3/uL (0.1-1.4); ABSOLUTE NEUT (AUTO) 4.2 10^3/uL (1.7-8.2); BASOPHILS % (AUTO) 0.6 % (0-2); EOSINOPHILS % (AUTO) 1.1 % (0-6); HEMATOCRIT 26.1 % (37.9-51.0); HEMOGLOBIN 8.6 g/dL (13.5-17.0); LYMPHOCYTES % (AUTO) 10.7 % (13-45); MEAN CORPUSCULAR HEMOGLOBIN 27.2 pg (27.0-33.4); MEAN CORPUSCULAR HGB CONC 33.1 g/dL (32.0-36.0); MEAN CORPUSCULAR VOLUME 82 fl (80-97); MONOCYTES % (AUTO) 9.8 % (3-13); PLATELET COUNT 198 10^3/uL (150-450); RED BLOOD COUNT 3.18 10^6/uL (4.35-5.55); RED CELL DISTRIBUTION WIDTH 21.7 % (11.5-14.0); SEGMENTED NEUTROPHILS % (AUTO) 77.8 % (42-78); TOTAL CELLS COUNTED % (AUTO) 100 %; WHITE BLOOD COUNT 5.4 10^3/uL (4.0-10.5)
[2018-04-17 04:53] LABS: ARTERIAL BLOOD BASE EXCESS 0.4 mmol/L; ARTERIAL BLOOD FIO2 50%; ARTERIAL BLOOD H2CO3 1.26 mmol/L (1.05-1.35); ARTERIAL BLOOD HCO3 25.3 mmol/L (20-24); ARTERIAL BLOOD O2 SATURATION 98.1 % (94-98); ARTERIAL BLOOD PCO2 41.8 mmHg (35-45); ARTERIAL BLOOD PO2 111.8 mmHg (80-100); ARTERIAL BLOOD TOTAL CO2 26.5 mmol/L (23-27)
[2018-04-17] MEDS: METOPROLOL TARTRATE 25 MG TABLET PO SCH ×2 (05:09→17:21)
[2018-04-17 05:10] LABS: ANION GAP 8 (5-19); BLOOD UREA NITROGEN 15 mg/dL (7-20); CALCIUM 8.1 mg/dL (8.4-10.2); CARBON DIOXIDE 26 mmol/L (22-30); CHLORIDE 108 mmol/L (98-107); GLUCOSE 88 mg/dL (75-110); PHOSPHORUS 3.4 mg/dL (2.5-4.5); POTASSIUM 3.8 mmol/L (3.6-5.0)
[2018-04-17] MEDS: HEPARIN SOD (PORCINE) 5,000 UNIT/ML 1 ML SYRINGE SUBCUT SCH ×3 (05:10→22:29)
[2018-04-17] MEDS: INSULIN LISPRO 100 UNIT/ML 3 ML VIAL SUBCUT SCH ×3 (06:00→17:19)
[2018-04-17] MEDS: HYDRALAZINE HCL INJ/PF 20 MG/1 ML SDV IV PRN ×3 (06:40→17:52)
--- NOTE | 2018-04-17 07:10 | RADIOLOGY REPORT (SQ) ---
EXAM DESCRIPTION: XR CHEST 1 VIEW COMPLETED DATE/TME: 04/17/2018 06:00 CLINICAL HISTORY: 67 years Male, resp failure COMPARISON: One day prior. NUMBER OF VIEWS/TECHNIQUE: 1/AP FINDINGS: Moderate central edema pattern, small bibasilar opacity-effusion. Tip of an endotracheal tube is 1.4 cm from the gerhard; consider retraction of the endotracheal tube by 3.6 cm. Likely adequate appearing enteric tube partially obscured. Right PICC appears adequate. Moderate cardiac silhouette enlargement.Left chest tube. No pneumothorax. Stable bony thorax. IMPRESSION: Tip of an endotracheal tube is 1.4 cm from the gerhard; consider retraction of the endotracheal tube by 3.6 cm.
[2018-04-17] MEDS: NORMAL SALINE 1000 ML 1,000 ML IV PRN ×2 (08:24→22:52)
[2018-04-17] MEDS: ACETYLCYSTEINE 20% SOLN 800 MG/4 ML VIAL.NEB NEB SCH ×2 (08:35→20:37)
--- NOTE | 2018-04-17 08:36 | PDOC PROGRESS REPORT ---
Subjective Progress Note for:: 04/17/18 Subjective:: This is a 67-year-old male patient with multiple comorbidities presented with severe dyspnea which failed to respond to BiPAP and later patient intubated emergently. He had been discharged from [facility] after a 2 week stay for heart failure. Chest xray showed a right lower lobe pneumonia. Sputum culture grew pseudomonas pneumonia. His chest x-ray also showed right pleural effusion which required chest tube drainage which is still present. He underwent bronchoscopy 3 days ago for right lower lobe collapse due to mucous plugging. This morning he remains intubated. He is awake and following commands. Reason For Visit: ACUTE RESPIRATORY FAILURE WITH HYPOXIA Physical Exam Vital Signs: Temp Pulse Resp BP Pulse Ox 97.9 F 77 19 150/61 H 91 L 04/17/18 08:00 04/17/18 08:00 04/17/18 08:00 04/17/18 08:00 04/17/18 08:00 Intake & Output 04/16/18 04/17/18 04/18/18 06:59 06:59 06:59 Intake Total 3250 1724 Output Total 3960 1305 45 Balance -710 419 -45 Weight 127.2 kg 127.2 kg General appearance: PRESENT: no acute distress, obese, well-developed, well- nourished, other - orally intubated Head exam: PRESENT: atraumatic, normocephalic Eye exam: PRESENT: conjunctiva pink, EOMI, PERRLA. ABSENT: scleral icterus Ear exam: PRESENT: normal external ear exam Mouth exam: PRESENT: moist, tongue midline Teeth exam: PRESENT: poor dentation Neck exam: ABSENT: carotid bruit, JVD, lymphadenopathy, thyromegaly Respiratory exam: PRESENT: rhonchi, symmetrical, unlabored Cardiovascular exam: PRESENT: RRR. ABSENT: diastolic murmur, rubs, systolic murmur Pulses: PRESENT: normal dorsalis pedis pul Vascular exam: PRESENT: normal capillary refill GI/Abdominal exam: PRESENT: normal bowel sounds, soft. ABSENT: distended, gua rding, mass, organolmegaly, rebound, tenderness Rectal exam: PRESENT: deferred Extremities exam: PRESENT: full ROM. ABSENT: calf tenderness, clubbing, pedal edema Neurological exam: PRESENT: alert, awake, CN II-XII grossly intact, other - orally intubated Psychiatric exam: PRESENT: flat affect Skin exam: PRESENT: dry, intact, warm. ABSENT: cyanosis, rash Results Laboratory Results: 04/17/18 04:48 04/17/18 04:48 04/17/18 04/17/18 04/17/18 04:48 04:48 04:48 WBC 5.4 RBC 3.18 L Hgb 8.6 L Hct 26.1 L MCV 82 MCH 27.2 MCHC 33.1 RDW 21.7 H Plt Count 198 Seg Neutrophils % 77.8 Lymphocytes % 10.7 L Monocytes % 9.8 Eosinophils % 1.1 Basophils % 0.6 Absolute Neutrophils 4.2 Absolute Lymphocytes 0.6 Absolute Monocytes 0.5 Absolute Eosinophils 0.1 Absolute Basophils 0.0 Carbonic Acid 1.26 HCO3/H2CO3 Ratio 20:1 ABG pH 7.40 ABG pCO2 41.8 ABG pO2 111.8 H ABG HCO3 25.3 H ABG O2 Saturation 98.1 H ABG Base Excess 0.4 FiO2 50% Sodium 142.0 Potassium 3.8 Chloride 108 H Carbon Dioxide 26 Anion Gap 8 BUN 15 Creatinine 0.93 Est GFR ( Amer) > 60 Est GFR (Non-Af Amer) > 60 Glucose 88 Calcium 8.1 L Phosphorus 3.4 Magnesium 1.8 04/08/18 04/08/18 04/09/18 21:58 21:58 04:15 Creatine Kinase < 20 L CK-MB (CK-2) Troponin I 0.038 NT-Pro-B Natriuret Pep 5370 H 04/09/18 04/09/18 04/09/18 04:15 10:44 10:44 Creatine Kinase < 20 L CK-MB (CK-2) 1.06 0.64 Troponin I 0.034 0.046 NT-Pro-B Natriuret Pep 04/09/18 04/09/18 04/14/18 15:50 15:50 04:28 Creatine Kinase 30 L CK-MB (CK-2) 0.45 Troponin I 0.050 NT-Pro-B Natriuret Pep 9830 H Impressions: Chest Ultrasound 04/13/18 09:30 IMPRESSION: No thoracentesis was performed. Chest X-Ray 04/17/18 06:00 IMPRESSION: Tip of an endotracheal tube is 1.4 cm from the gerhard; consider retraction of the endotracheal tube by 3.6 cm. Assessment & Plan - Diagnosis (1) Acute respiratory failure with hypoxia and hypercapnia Is this a current diagnosis for this admission?: Yes Plan: Continue antibiotic, pulmonary toilet, vent weaning (2) Acute on chronic systolic heart failure Is this a current diagnosis for this admission?: Yes Plan: Patient appears mildly fluid volume overloaded (3) Atrial fibrillation Qualifiers: Atrial fibrillation type: chronic Qualified Code(s): I48.2 - Chronic atrial fibrillation Is this a current diagnosis for this admission?: Yes Plan: Continue current medications (4) Diabetes mellitus type 2 in obese Is this a current diagnosis for this admission?: Yes Plan: Continue current medications and sliding scale coverage. (5) Pleural effusion Is this a current diagnosis for this admission?: Yes Plan: Resolving. Chest tube in place (6) Pneumonia Is this a current diagnosis for this admission?: Yes Plan: Pseudomonas in sputum. Improving (7) Morbid obesity with alveolar hypoventilation Is this a current diagnosis for this admission?: Yes (8) Peripheral edema Is this a current diagnosis for this admission?: Yes Plan: Will give lasix today. Increase tube feedings to goal - Time Time Spent with patient: 35 or more minutes Total Critical Time (Minutes): 30 Medications reviewed and adjusted accordingly: Yes - Inpatient Certification Based on my medical assessment, after consideration of the patient's comorbidities, presenting symptoms, or acuity I expect that the services needed warrant INPATIENT care.: Yes I certify that my determination is in accordance with my understanding of Medicare's requirements for reasonable and necessary INPATIENT services [42 CFR 412.3e].: Yes
[2018-04-17] MEDS ORDERED: FUROSEMIDE INJ/PF 20 MG/2 ML SDV IV ONE (08:37)
[2018-04-17] MEDS ORDERED: FUROSEMIDE INJ/PF 40 MG/4 ML SDV IV ONE ×2 (09:00→11:45)
[2018-04-17] MEDS ORDERED: POTASSIUM CHLORIDE 20 MEQ/15 ML UDCUP PO ONE ×2 (09:00→11:45)
[2018-04-17] MEDS: DIGOXIN 0.25 MG TABLET PO SCH (10:16)
[2018-04-17] MEDS: ASPIRIN 81 MG TABLET, CHEWABLE PEG SCH (10:16)
[2018-04-17] MEDS ORDERED: FENTANYL CITRATE INJ/PF 100 MCG/2 ML AMPUL IV ONE (14:15)
[2018-04-17] MEDS: MIDAZOLAM HCL 50 MG/100 ML RTUINJ ONE ×2 (16:23→17:02)
--- NOTE | 2018-04-17 17:57 | PDOC PROGRESS REPORT ---
Subjective Progress Note for:: 04/16/18 Subjective:: Remains intubated and sedated Reason For Visit: ACUTE RESPIRATORY FAILURE WITH HYPOXIA Physical Exam Vital Signs: Temp Pulse Resp BP Pulse Ox 97.3 F 92 15 156/75 H 98 04/16/18 06:01 04/16/18 02:23 04/16/18 06:01 04/16/18 06:01 04/16/18 06:01 Intake & Output 04/15/18 04/16/18 04/17/18 06:59 06:59 06:59 Intake Total 2300 3250 Output Total 2260 3960 Balance 40 -710 Weight 127.8 kg 127.2 kg General appearance: PRESENT: no acute distress, disheveled, morbidly obese. ABSENT: cooperative Head exam: PRESENT: atraumatic, normocephalic Eye exam: PRESENT: conjunctiva pale. ABSENT: nystagmus, periorbital swelling, scleral icterus Mouth exam: PRESENT: dry mucosa, neck supple, tongue midline, other - ET tube in place Neck exam: ABSENT: carotid bruit, full ROM, JVD, lymphadenopathy, meningismus, tenderness, thyromegaly, tracheal deviation, tracheostomy, other Respiratory exam: PRESENT: decreased breath sounds, prolonged expiratory phas, rales, rhonchi, unlabored. ABSENT: retraction, stridor Cardiovascular exam: PRESENT: irregular rhythm, +S1, +S2 Pulses: PRESENT: normal radial pulses GI/Abdominal exam: PRESENT: soft. ABSENT: tenderness Gentrourinary exam: PRESENT: indwelling catheter Extremities exam: PRESENT: pedal edema. ABSENT: calf tenderness, clubbing, joint swelling Musculoskeletal exam: ABSENT: ambulatory, deformity, dislocation Neurological exam: ABSENT: awake Skin exam: PRESENT: dry, warm Results Laboratory Results: 04/16/18 04:34 04/16/18 04:34 04/14/18 04/14/18 04/14/18 11:50 11:50 11:50 WBC RBC Hgb Hct MCV MCH MCHC RDW Plt Count Seg Neutrophils % Lymphocytes % Monocytes % Eosinophils % Basophils % Absolute Neutrophils Absolute Lymphocytes Absolute Monocytes Absolute Eosinophils Absolute Basophils Carbonic Acid HCO3/H2CO3 Ratio ABG pH ABG pCO2 ABG pO2 ABG HCO3 ABG O2 Saturation ABG Base Excess FiO2 Sodium Potassium Chloride Carbon Dioxide Anion Gap BUN Creatinine Est GFR ( Amer) Est GFR (Non-Af Amer) Glucose Calcium Magnesium Fluid Type Fluid Source Fluid Color Fluid Appearance Fluid Viscosity Fluid pH 8.4 Fluid WBC Fluid RBC Fluid Glucose 122 Fluid Total Protein Fluid LDH Fluid Amylase 29 04/14/18 04/14/18 04/15/18 11:50 11:50 12:32 WBC RBC Hgb Hct MCV MCH MCHC RDW Plt Count Seg Neutrophils % Lymphocytes % Monocytes % Eosinophils % Basophils % Absolute Neutrophils Absolute Lymphocytes Absolute Monocytes Absolute Eosinophils Absolute Basophils Carbonic Acid HCO3/H2CO3 Ratio ABG pH ABG pCO2 ABG pO2 ABG HCO3 ABG O2 Saturation ABG Base Excess FiO2 Sodium Potassium Chloride Carbon Dioxide Anion Gap BUN Creatinine Est GFR ( Amer) Est GFR (Non-Af Amer) Glucose Calcium Magnesium Fluid Type BRONCHIAL WASH Fluid Source LUNG Fluid Color STRAW Fluid Appearance [place] Fluid Viscosity SLIGHTLY VISCOUS Fluid pH Fluid WBC 00694 Fluid RBC 3733 Fluid Glucose Fluid Total Protein 1.6 Fluid LDH 147 Fluid Amylase 04/16/18 04/16/18 04/16/18 04:34 04:34 05:27 WBC 5.3 RBC 3.28 L Hgb 8.8 L Hct 27.2 L MCV 83 MCH 26.8 L MCHC 32.4 RDW 21.2 H Plt Count 202 Seg Neutrophils % 75.6 Lymphocytes % 11.6 L Monocytes % 11.2 Eosinophils % 1.1 Basophils % 0.5 Absolute Neutrophils 4.0 Absolute Lymphocytes 0.6 Absolute Monocytes 0.6 Absolute Eosinophils 0.1 Absolute Basophils 0.0 Carbonic Acid 1.31 HCO3/H2CO3 Ratio 19:1 ABG pH 7.38 ABG pCO2 43.5 ABG pO2 86.9 ABG HCO3 25.2 H ABG O2 Saturation 96.4 ABG Base Excess 0 FiO2 50% Sodium 140.4 Potassium 4.0 Chloride 106 Carbon Dioxide 28 Anion Gap 6 BUN 15 Creatinine 0.91 Est GFR ( Amer) > 60 Est GFR (Non-Af Amer) > 60 Glucose 85 Calcium 8.1 L Magnesium 1.8 Fluid Type Fluid Source Fluid Color Fluid Appearance Fluid Viscosity Fluid pH Fluid WBC Fluid RBC Fluid Glucose Fluid Total Protein Fluid LDH Fluid Amylase 04/08/18 04/08/18 04/09/18 21:58 21:58 04:15 Creatine Kinase < 20 L CK-MB (CK-2) Troponin I 0.038 NT-Pro-B Natriuret Pep 5370 H 04/09/18 04/09/1819 04:15 10:44 10:44 Creatine Kinase < 20 L CK-MB (CK-2) 1.06 0.64 Troponin I 0.034 0.046 NT-Pro-B Natriuret Pep 04/09/18 04/09/18 04/14/18 15:50 15:50 04:28 Creatine Kinase 30 L CK-MB (CK-2) 0.45 Troponin I 0.050 NT-Pro-B Natriuret Pep 9830 H Impressions: Chest Ultrasound 04/13/18 09:30 IMPRESSION: No thoracentesis was performed. Chest X-Ray 04/16/18 06:00 IMPRESSION: Left chest tube in place. No pneumothorax. Persistent bibasilar consolidation left greater than right, unchanged Assessment & Plan - Diagnosis (1) Acute respiratory failure with hypoxia and hypercapnia Is this a current diagnosis for this admission?: Yes Plan: Changed to require increasing FiO2 C with fiberoptic bronchoscopy to help resolve atelectasis in the left lung base (2) COPD (chronic obstructive pulmonary disease) Qualifiers: Emphysema type: unspecified Is this a current diagnosis for this admission?: Yes Plan: Continue current bronchodilator therapy (3) Atrial fibrillation with rapid ventricular response Is this a current diagnosis for this admission?: Yes Plan: Fairly well controlled at this time (4) Morbid obesity Is this a current diagnosis for this admission?: Yes Plan: nutritional consult - Time Total Critical Time (Minutes): 45
--- NOTE | 2018-04-17 18:05 | PDOC PROGRESS REPORT ---
Subjective Progress Note for:: 04/17/18 Subjective:: Remains intubated and sedated Reason For Visit: ACUTE RESPIRATORY FAILURE WITH HYPOXIA Physical Exam Vital Signs: Temp Pulse Resp BP Pulse Ox 98.2 F 76 19 172/69 H 94 04/17/18 12:00 04/17/18 12:00 04/17/18 12:00 04/17/18 12:00 04/17/18 12:00 Intake & Output 04/16/18 04/17/18 04/18/18 06:59 06:59 06:59 Intake Total 3250 2724 Output Total 3960 1305 130 Balance -710 1419 -130 Weight 127.2 kg 127.2 kg General appearance: PRESENT: no acute distress, disheveled, morbidly obese. ABSENT: cooperative Head exam: PRESENT: atraumatic, normocephalic Eye exam: PRESENT: conjunctiva pale. ABSENT: nystagmus, periorbital swelling Mouth exam: PRESENT: dry mucosa, neck supple, tongue midline Neck exam: ABSENT: carotid bruit, full ROM, JVD, lymphadenopathy, meningismus, tenderness, thyromegaly, tracheal deviation, tracheostomy, other Respiratory exam: PRESENT: decreased breath sounds, rales, rhonchi. ABSENT: retraction Cardiovascular exam: PRESENT: irregular rhythm Pulses: PRESENT: normal radial pulses GI/Abdominal exam: PRESENT: soft. ABSENT: tenderness Gentrourinary exam: PRESENT: indwelling catheter Extremities exam: PRESENT: pedal edema. ABSENT: calf tenderness, clubbing, joint swelling Musculoskeletal exam: ABSENT: deformity, dislocation Neurological exam: ABSENT: awake Skin exam: PRESENT: dry, warm Results Laboratory Results: 04/17/18 04:48 04/17/18 04:48 04/17/18 04/17/18 04/17/18 04:48 04:48 04:48 WBC 5.4 RBC 3.18 L Hgb 8.6 L Hct 26.1 L MCV 82 MCH 27.2 MCHC 33.1 RDW 21.7 H Plt Count 198 Seg Neutrophils % 77.8 Lymphocytes % 10.7 L Monocytes % 9.8 Eosinophils % 1.1 Basophils % 0.6 Absolute Neutrophils 4.2 Absolute Lymphocytes 0.6 Absolute Monocytes 0.5 Absolute Eosinophils 0.1 Absolute Basophils 0.0 Carbonic Acid 1.26 HCO3/H2CO3 Ratio 20:1 ABG pH 7.40 ABG pCO2 41.8 ABG pO2 111.8 H ABG HCO3 25.3 H ABG O2 Saturation 98.1 H ABG Base Excess 0.4 FiO2 50% Sodium 142.0 Potassium 3.8 Chloride 108 H Carbon Dioxide 26 Anion Gap 8 BUN 15 Creatinine 0.93 Est GFR ( Amer) > 60 Est GFR (Non-Af Amer) > 60 Glucose 88 Calcium 8.1 L Phosphorus 3.4 Magnesium 1.8 04/08/18 04/08/18 04/09/18 21:58 21:58 04:15 Creatine Kinase < 20 L CK-MB (CK-2) Troponin I 0.038 NT-Pro-B Natriuret Pep 5370 H 04/09/18 04/09/18 04/09/18 04:15 10:44 10:44 Creatine Kinase < 20 L CK-MB (CK-2) 1.06 0.64 Troponin I 0.034 0.046 NT-Pro-B Natriuret Pep 04/09/18 04/09/18 04/14/18 15:50 15:50 04:28 Creatine Kinase 30 L CK-MB (CK-2) 0.45 Troponin I 0.050 NT-Pro-B Natriuret Pep 9830 H Impressions: Chest Ultrasound 04/13/18 09:30 IMPRESSION: No thoracentesis was performed. Chest X-Ray 04/17/18 06:00 IMPRESSION: Tip of an endotracheal tube is 1.4 cm from the gerhard; consider retraction of the endotracheal tube by 3.6 cm. Assessment & Plan - Diagnosis (1) Acute respiratory failure with hypoxia and hypercapnia Is this a current diagnosis for this admission?: Yes Plan: Changed to require increasing FiO2 C with fiberoptic bronchoscopy to help resolv e atelectasis in the left lung base (2) Atrial fibrillation with rapid ventricular response Is this a current diagnosis for this admission?: Yes Plan: Fairly well controlled at this time (3) COPD (chronic obstructive pulmonary disease) Qualifiers: Emphysema type: unspecified Is this a current diagnosis for this admission?: Yes Plan: Continue current bronchodilator therapy (4) Morbid obesity Is this a current diagnosis for this admission?: Yes Plan: nutritional consult - Time Total Critical Time (Minutes): 45
--- NOTE | 2018-04-17 19:54 | PDOC PROGRESS REPORT ---
Subjective Progress Note for:: 04/17/18 Subjective:: still intubated but appears to be waking up Reason For Visit: ACUTE RESPIRATORY FAILURE WITH HYPOXIA Physical Exam Vital Signs: Temp Pulse Resp BP Pulse Ox 98.8 F 94 18 166/70 H 94 04/17/18 18:00 04/17/18 18:00 04/17/18 18:00 04/17/18 18:00 04/17/18 18:00 Intake & Output 04/16/18 04/17/18 04/18/18 06:59 06:59 06:59 Intake Total 3250 2724 0 Output Total 3960 1305 1620 Balance -710 1419 -1620 Weight 127.2 kg 127.2 kg Exam: Left chest tube drainage 150 ccs of blood tinged fluid today. Results Laboratory Results: 04/17/18 04:48 04/17/18 04:48 04/17/18 04/17/18 04/17/18 04:48 04:48 04:48 WBC 5.4 RBC 3.18 L Hgb 8.6 L Hct 26.1 L MCV 82 MCH 27.2 MCHC 33.1 RDW 21.7 H Plt Count 198 Seg Neutrophils % 77.8 Lymphocytes % 10.7 L Monocytes % 9.8 Eosinophils % 1.1 Basophils % 0.6 Absolute Neutrophils 4.2 Absolute Lymphocytes 0.6 Absolute Monocytes 0.5 Absolute Eosinophils 0.1 Absolute Basophils 0.0 Carbonic Acid 1.26 HCO3/H2CO3 Ratio 20:1 ABG pH 7.40 ABG pCO2 41.8 ABG pO2 111.8 H ABG HCO3 25.3 H ABG O2 Saturation 98.1 H ABG Base Excess 0.4 FiO2 50% Sodium 142.0 Potassium 3.8 Chloride 108 H Carbon Dioxide 26 Anion Gap 8 BUN 15 Creatinine 0.93 Est GFR ( Amer) > 60 Est GFR (Non-Af Amer) > 60 Glucose 88 Calcium 8.1 L Phosphorus 3.4 Magnesium 1.8 04/15/18 10:10 Tracheal Aspirate Gram Stain - Final 04/15/18 10:10 Tracheal Aspirate Sputum Culture - Final Pseudomonas Aeruginosa Yeast, Not Pauline Albicans Normal Brittny Absent 04/08/18 04/08/18 04/09/18 21:58 21:58 04:15 Creatine Kinase < 20 L CK-MB (CK-2) Troponin I 0.038 NT-Pro-B Natriuret Pep 5370 H 04/09/18 04/09/18 04/09/18 04:15 10:44 10:44 Creatine Kinase < 20 L CK-MB (CK-2) 1.06 0.64 Troponin I 0.034 0.046 NT-Pro-B Natriuret Pep 04/09/18 04/09/18 04/14/18 15:50 15:50 04:28 Creatine Kinase 30 L CK-MB (CK-2) 0.45 Troponin I 0.050 NT-Pro-B Natriuret Pep 9830 H Impressions: Chest Ultrasound 04/13/18 09:30 IMPRESSION: No thoracentesis was performed. Chest X-Ray 04/17/18 06:00 IMPRESSION: Tip of an endotracheal tube is 1.4 cm from the gerhard; consider retraction of the endotracheal tube by 3.6 cm. Assessment & Plan - Time Time Spent with patient: 15-24 minutes - Plan Summary Plan Summary: Plan to D/C chest tube when drainage <100ccs/day.
[2018-04-18] MEDS: INSULIN LISPRO 100 UNIT/ML 3 ML VIAL SUBCUT SCH ×4 (00:26→17:51)
[2018-04-18] MEDS: IPRATROPIUM/ALBUTEROL 0.5-2.5 MG/3 ML AMPUL NEB SCH ×4 (01:33→20:42)
[2018-04-18 05:09] LABS: ARTERIAL BLOOD BASE EXCESS 3.1 mmol/L; ARTERIAL BLOOD H2CO3 1.27 mmol/L (1.05-1.35); ARTERIAL BLOOD HCO3 27.6 mmol/L (20-24); ARTERIAL BLOOD O2 SATURATION 96.7 % (94-98); ARTERIAL BLOOD PCO2 42.3 mmHg (35-45); ARTERIAL BLOOD PH 7.43 (7.35-7.45); ARTERIAL BLOOD PO2 85.9 mmHg (80-100); ARTERIAL BLOOD TOTAL CO2 28.9 mmol/L (23-27)
[2018-04-18 05:10] LABS: ARTERIAL BLOOD FIO2 40%
[2018-04-18] MEDS: MIDAZOLAM HCL 50 MG/100 ML RTUINJ IV PRN ×3 (06:05→21:16)
[2018-04-18] MEDS: HEPARIN SOD (PORCINE) 5,000 UNIT/ML 1 ML SYRINGE SUBCUT SCH ×3 (06:07→21:18)
[2018-04-18] MEDS: METOPROLOL TARTRATE 25 MG TABLET PO SCH ×2 (06:07→17:53)
[2018-04-18 06:20] LABS: ABSOLUTE EOSINOPHILS # (AUTO) 0.1 10^3/uL (0.0-0.6); ABSOLUTE LYMPHOCYTES (AUTO) 0.5 10^3/uL (0.5-4.7); ABSOLUTE MONOCYTES (AUTO) 0.5 10^3/uL (0.1-1.4); ABSOLUTE NEUT (AUTO) 4.9 10^3/uL (1.7-8.2); BASOPHILS % (AUTO) 0.8 % (0-2); EOSINOPHILS % (AUTO) 1.1 % (0-6); HEMATOCRIT 27.3 % (37.9-51.0); HEMOGLOBIN 8.9 g/dL (13.5-17.0); LYMPHOCYTES % (AUTO) 8.5 % (13-45); MEAN CORPUSCULAR HEMOGLOBIN 26.7 pg (27.0-33.4); MEAN CORPUSCULAR HGB CONC 32.5 g/dL (32.0-36.0); MEAN CORPUSCULAR VOLUME 82 fl (80-97); MONOCYTES % (AUTO) 8.2 % (3-13); PLATELET COUNT 217 10^3/uL (150-450); RED BLOOD COUNT 3.31 10^6/uL (4.35-5.55); RED CELL DISTRIBUTION WIDTH 21.4 % (11.5-14.0); SEGMENTED NEUTROPHILS % (AUTO) 81.4 % (42-78); TOTAL CELLS COUNTED % (AUTO) 100 %
[2018-04-18 06:30] LABS: ALANINE AMINOTRANSFERASE 30 U/L (21-72); ALBUMIN 2.3 g/dL (3.5-5.0); ALKALINE PHOSPHATASE 103 U/L (38-126); ANION GAP 7 (5-19); ASPARTATE AMINO TRANSFERASE 29 U/L (17-59); BILIRUBIN,DIRECT 0.5 mg/dL (0.0-0.4); BILIRUBIN,TOTAL 0.6 mg/dL (0.2-1.3); BLOOD UREA NITROGEN 16 mg/dL (7-20); CALCIUM 8.1 mg/dL (8.4-10.2); CARBON DIOXIDE 28 mmol/L (22-30); CHLORIDE 107 mmol/L (98-107); GLUCOSE 113 mg/dL (75-110); POTASSIUM 3.9 mmol/L (3.6-5.0); SODIUM 141.6 mmol/L (137-145); TOTAL PROTEIN 4.2 g/dL (6.3-8.2)
--- NOTE | 2018-04-18 06:46 | RADIOLOGY REPORT (SQ) ---
EXAM DESCRIPTION: XR CHEST 1 VIEW COMPLETED DATE/TME: 04/18/2018 06:00 CLINICAL HISTORY: 67 years Male, resp failure COMPARISON: One day prior. NUMBER OF VIEWS/TECHNIQUE: 1/AP FINDINGS: Moderate mixed airspace and interstitial opacities. Moderate left lower thoracic opacity-effusion.Adequate appearing endotracheal tube. Likely adequate appearing enteric tube partially obscured. Right PICC appears adequate. Atherosclerotic vascular disease. Normal cardiac silhouette size. No pneumothorax. Stable bony thorax. IMPRESSION: No significant change.
[2018-04-18] MEDS: ACETYLCYSTEINE 20% SOLN 800 MG/4 ML VIAL.NEB NEB SCH ×2 (08:16→20:28)
[2018-04-18] MEDS ORDERED: FUROSEMIDE INJ/PF 20 MG/2 ML SDV IV ONE (08:51)
[2018-04-18] MEDS ORDERED: FUROSEMIDE INJ/PF 40 MG/4 ML SDV IV ONE (09:30)
[2018-04-18] MEDS ORDERED: POTASSIUM CHLORIDE 20 MEQ/15 ML UDCUP PO ONE (09:30)
[2018-04-18] MEDS: DIGOXIN 0.25 MG TABLET PO SCH (09:37)
[2018-04-18] MEDS: ASPIRIN 81 MG TABLET, CHEWABLE PEG SCH (09:37)
--- NOTE | 2018-04-18 13:52 | PDOC PROGRESS REPORT ---
Subjective Progress Note for:: 04/18/18 Subjective:: Patient remains on ventilator Reason For Visit: ACUTE RESPIRATORY FAILURE WITH HYPOXIA Physical Exam Vital Signs: Temp Pulse Resp BP Pulse Ox 97.9 F 69 15 144/56 H 95 04/18/18 12:02 04/18/18 12:00 04/18/18 12:02 04/18/18 12:02 04/18/18 12:02 Intake & Output 04/17/18 04/18/18 04/19/18 06:59 06:59 06:59 Intake Total 2724 1200 Output Total 1305 2575 1400 Balance 1419 -1375 -1400 Weight 127.2 kg 125.6 kg General appearance: PRESENT: no acute distress, other - Patient sedated, on ventilator Respiratory exam: PRESENT: other - Remains sedated, on ventilator; chest tube to Pleur-evac; fluctuation but no air leak; on suction; less than 200 cc of serosanguineous Results Laboratory Results: 04/18/18 05:56 04/18/18 05:56 04/18/18 04/18/18 04/18/18 04:59 05:56 05:56 WBC 6.0 RBC 3.31 L Hgb 8.9 L Hct 27.3 L MCV 82 MCH 26.7 L MCHC 32.5 RDW 21.4 H Plt Count 217 Seg Neutrophils % 81.4 H Lymphocytes % 8.5 L Monocytes % 8.2 Eosinophils % 1.1 Basophils % 0.8 Absolute Neutrophils 4.9 Absolute Lymphocytes 0.5 Absolute Monocytes 0.5 Absolute Eosinophils 0.1 Absolute Basophils 0.0 Carbonic Acid 1.27 HCO3/H2CO3 Ratio 21:1 ABG pH 7.43 ABG pCO2 42.3 ABG pO2 85.9 ABG HCO3 27.6 H ABG O2 Saturation 96.7 ABG Base Excess 3.1 FiO2 40% Sodium 141.6 Potassium 3.9 Chloride 107 Carbon Dioxide 28 Anion Gap 7 BUN 16 Creatinine 0.90 Est GFR ( Amer) > 60 Est GFR (Non-Af Amer) > 60 Glucose 113 H Calcium 8.1 L Magnesium 1.8 Total Bilirubin 0.6 AST 29 ALT 30 Alkaline Phosphatase 103 Total Protein 4.2 L Albumin 2.3 L 04/14/18 11:50 Chest Tube Fluid Gram Stain - Final 04/14/18 11:50 Chest Tube Fluid Body Fluid Culture - Final NO AEROBIC OR ANAEROBIC ORGANISMS RECOVERED 04/15/18 10:10 Tracheal Aspirate Gram Stain - Final 04/15/18 10:10 Tracheal Aspirate Sputum Culture - Final Pseudomonas Aeruginosa Yeast, Not Pauline Albicans Normal Brittny Absent 04/08/18 04/08/18 04/09/18 21:58 21:58 04:15 Creatine Kinase < 20 L CK-MB (CK-2) Troponin I 0.038 NT-Pro-B Natriuret Pep 5370 H 04/09/18 04/09/18 04/09/18 04:15 10:44 10:44 Creatine Kinase < 20 L CK-MB (CK-2) 1.06 0.64 Troponin I 0.034 0.046 NT-Pro-B Natriuret Pep 04/09/18 04/09/18 04/14/18 15:50 15:50 04:28 Creatine Kinase 30 L CK-MB (CK-2) 0.45 Troponin I 0.050 NT-Pro-B Natriuret Pep 9830 H Impressions: Chest Ultrasound 04/13/18 09:30 IMPRESSION: No thoracentesis was performed. Chest X-Ray 04/18/18 06:00 IMPRESSION: No significant change. Assessment & Plan - Diagnosis (1) Chest tube in place Is this a current diagnosis for this admission?: Yes Plan: Impression: Functioning left thoracostomy tube; no air leak; pathetic effusion draining Commendations: 1. Leave chest tube on suction and in position until patient off ventilator. 2. Please reconsult surgery after patient successfully extubated to discuss chest tube removal (2) Acute on chronic systolic CHF (congestive heart failure) Is this a current diagnosis for this admission?: Yes
[2018-04-18] MEDS: NORMAL SALINE 1000 ML 1,000 ML IV PRN (13:54)
[2018-04-19] MEDS: HYDRALAZINE HCL INJ/PF 20 MG/1 ML SDV IV PRN (01:08)
[2018-04-19] MEDS: FENTANYL CITRATE INJ/PF 100 MCG/2 ML AMPUL IV PRN ×2 (01:30→15:07)
[2018-04-19] MEDS: IPRATROPIUM/ALBUTEROL 0.5-2.5 MG/3 ML AMPUL NEB SCH ×4 (02:19→20:18)
[2018-04-19] MEDS: MIDAZOLAM HCL 50 MG/100 ML RTUINJ IV PRN ×3 (04:43→18:29)
[2018-04-19] MEDS: NORMAL SALINE 1000 ML 1,000 ML IV PRN ×2 (04:47→21:27)
[2018-04-19 05:07] LABS: ABSOLUTE EOSINOPHILS # (AUTO) 0.1 10^3/uL (0.0-0.6); ABSOLUTE LYMPHOCYTES (AUTO) 0.6 10^3/uL (0.5-4.7); ABSOLUTE MONOCYTES (AUTO) 0.5 10^3/uL (0.1-1.4); ABSOLUTE NEUT (AUTO) 5.2 10^3/uL (1.7-8.2); BASOPHILS % (AUTO) 0.8 % (0-2); EOSINOPHILS % (AUTO) 1.2 % (0-6); HEMATOCRIT 27.1 % (37.9-51.0); HEMOGLOBIN 8.9 g/dL (13.5-17.0); LYMPHOCYTES % (AUTO) 9.1 % (13-45); MEAN CORPUSCULAR HGB CONC 32.9 g/dL (32.0-36.0); MEAN CORPUSCULAR VOLUME 82 fl (80-97); MONOCYTES % (AUTO) 7.7 % (3-13); PLATELET COUNT 222 10^3/uL (150-450); RED CELL DISTRIBUTION WIDTH 21.3 % (11.5-14.0); SEGMENTED NEUTROPHILS % (AUTO) 81.2 % (42-78); TOTAL CELLS COUNTED % (AUTO) 100 %; WHITE BLOOD COUNT 6.4 10^3/uL (4.0-10.5)
[2018-04-19 05:19] LABS: ANION GAP 6 (5-19); BLOOD UREA NITROGEN 18 mg/dL (7-20); CALCIUM 8.1 mg/dL (8.4-10.2); CARBON DIOXIDE 29 mmol/L (22-30); CHLORIDE 106 mmol/L (98-107); GLUCOSE 117 mg/dL (75-110); POTASSIUM 3.7 mmol/L (3.6-5.0); SODIUM 141.1 mmol/L (137-145)
[2018-04-19 05:40] LABS: ARTERIAL BLOOD BASE EXCESS 3.4 mmol/L; ARTERIAL BLOOD H2CO3 1.23 mmol/L (1.05-1.35); ARTERIAL BLOOD HCO3 27.7 mmol/L (20-24); ARTERIAL BLOOD PH 7.45 (7.35-7.45); ARTERIAL BLOOD PO2 77.6 mmHg (80-100)
[2018-04-19 05:41] LABS: ARTERIAL BLOOD FIO2 40%
[2018-04-19] MEDS: INSULIN LISPRO 100 UNIT/ML 3 ML VIAL SUBCUT SCH ×4 (06:18→17:15)
[2018-04-19] MEDS: HEPARIN SOD (PORCINE) 5,000 UNIT/ML 1 ML SYRINGE SUBCUT SCH ×3 (06:23→21:50)
[2018-04-19] MEDS: METOPROLOL TARTRATE 25 MG TABLET PO SCH ×2 (06:24→17:16)
[2018-04-19] MEDS: ACETYLCYSTEINE 20% SOLN 800 MG/4 ML VIAL.NEB NEB SCH ×2 (08:32→20:18)
--- NOTE | 2018-04-19 08:43 | RADIOLOGY REPORT (SQ) ---
EXAM DESCRIPTION: CHEST SINGLE VIEW COMPLETED DATE/TIME: 04/19/2018 6:19 am REASON FOR STUDY: pna/resp failure COMPARISON: Multiple chest films since 04/09/2018, most recently 04/17/2018, 04/18/2018 EXAM PARAMETERS: NUMBER OF VIEWS: One view. TECHNIQUE: Single frontal radiographic view of the chest acquired. RADIATION DOSE: NA LIMITATIONS: None. FINDINGS: LUNGS AND PLEURA: Persistent dense left lower lobe consolidation worrisome for pneumonia. Left lower lateral pleural space large bore chest tube unchanged. No left pneumothorax or pleural e ffusion. Trace right pleural fluid in the major fissure. Medial right basilar airspace disease persists, atel ectasis versus pneumonia, unchanged. No right pneumothorax MEDIASTINUM AND HILAR STRUCTURES: No masses. Contour normal. HEART AND VASCULAR STRUCTURES: Stable mild cardiomegaly. Implanted anterior chest wall monitoring ca rdiac device BONES: No acute findings. HARDWARE: Endotracheal tube tip 3 to 4 cm above the gerhard. Nasogastric tube tip and side port in th e stomach. Right subclavian central line tip superior vena cava OTHER: No other significant finding. IMPRESSION: Left chest tube in place, no pneumothorax or pleural effusion Persistent dense left lower lobe consolidation worrisome for pneumonia Persistent unchanged trace right pleural effusion and medial right basilar airspace disease TECHNICAL DOCUMENTATION: JOB ID: [id number] Cued- All Rights Reserved Reading location - IP/workstation name: [email or web address]
[2018-04-19] MEDS: LEVOFLOXACIN 750 MG/D5W RTU 750 MG/150 ML RTUPB IV SCH (09:50)
[2018-04-19] MEDS: DIGOXIN 0.25 MG TABLET PO SCH (09:52)
[2018-04-19] MEDS: ASPIRIN 81 MG TABLET, CHEWABLE PEG SCH (09:52)
[2018-04-19] MEDS: TOBRAMYCIN SULFATE NEB 40 MG/ML 30 ML NEB SCH ×2 (11:46→20:18)
--- NOTE | 2018-04-19 21:01 | PDOC PROGRESS REPORT ---
Subjective Progress Note for:: 04/19/18 Subjective:: This is a chronically ill 67-year-old male with a history of CHF with an EF of 40-45%, pulmonary hypertension, COPD, and morbid obesity who had a stay at this hospital several weeks ago for heart rhythm issue and heart failure and was transferred to [facility], where he was there for 2 weeks. They cardioverted him and started him on Tikosyn but he was eventually switched back over to Cardizem. He was sent to a [facility] facility [facility], in less than 12 hours later he was back in this emergency department in respiratory distress. He was intubated and started on antibiotics and steroids. Pulmonology saw him in consultation and ultimately did a bronchoscopy several days ago, and his secretions have grown out pseudomonas aeruginosa. His blood cultures have been negative. He was requiring pressors but is not requiring them anymore. At this time he remains sedated and intubated. He said good urine output. This morning his sedation had been lightened and he was on a weaning trial. Reason For Visit: ACUTE RESPIRATORY FAILURE WITH HYPOXIA Physical Exam Vital Signs: Temp Pulse Resp BP Pulse Ox 97.9 F 68 15 137/56 H 97 04/19/18 18:01 04/19/18 20:18 04/19/18 20:18 04/19/18 18:01 04/19/18 20:18 Intake & Output 04/18/18 04/19/18 04/20/18 06:59 06:59 06:59 Intake Total 1200 2420 546 Output Total 2575 3305 555 Balance -1375 -885 -9 Weight 125.6 kg 125.9 kg General appearance: PRESENT: no acute distress, obese, well-developed, well- nourished, other - orally intubated Respiratory exam: PRESENT: rhonchi, symmetrical, unlabored Cardiovascular exam: PRESENT: RRR. ABSENT: diastolic murmur, rubs, systolic murmur Pulses: PRESENT: normal dorsalis pedis pul Vascular exam: PRESENT: normal capillary refill GI/Abdominal exam: PRESENT: normal bowel sounds, soft. ABSENT: distended, guarding, mass, organolmegaly, rebound, tenderness Extremities exam: PRESENT: full ROM. ABSENT: calf tenderness, clubbing, pedal edema Neurological exam: PRESENT: Sedated Skin exam: PRESENT: dry, intact, warm. ABSENT: cyanosis, rash Results Laboratory Results: 04/19/18 04:50 04/19/18 04:50 04/19/18 04/19/18 04/19/18 04:50 04:50 05:30 WBC 6.4 RBC 3.30 L Hgb 8.9 L Hct 27.1 L MCV 82 MCH 27.0 MCHC 32.9 RDW 21.3 H Plt Count 222 Seg Neutrophils % 81.2 H Lymphocytes % 9.1 L Monocytes % 7.7 Eosinophils % 1.2 Basophils % 0.8 Absolute Neutrophils 5.2 Absolute Lymphocytes 0.6 Absolute Monocytes 0.5 Absolute Eosinophils 0.1 Absolute Basophils 0.0 Carbonic Acid 1.23 HCO3/H2CO3 Ratio 22:1 ABG pH 7.45 ABG pCO2 41.0 ABG pO2 77.6 L ABG HCO3 27.7 H ABG O2 Saturation 96.0 ABG Base Excess 3.4 FiO2 40% Sodium 141.1 Potassium 3.7 Chloride 106 Carbon Dioxide 29 Anion Gap 6 BUN 18 Creatinine 0.72 Est GFR ( Amer) > 60 Est GFR (Non-Af Amer) > 60 Glucose 117 H Calcium 8.1 L Phosphorus 4.0 Magnesium 1.6 04/15/18 12:32 Bronchial Washings Gram Stain - Final 04/15/18 12:32 Bronchial Washings Bronchial Washings Culture - Final NO GROWTH 3 DAYS 04/15/18 10:10 Tracheal Aspirate Gram Stain - Final 04/15/18 10:10 Tracheal Aspirate Sputum Culture - Final Pseudomonas Aeruginosa Yeast, Not Pauline Albicans Normal Brittny Absent 04/15/18 12:32 Bronchial Washings AFB Smear Concentration - Final 04/15/18 12:32 Bronchial Washings Acid Fast Bacilli Smear - Final 04/15/18 12:32 Bronchial Washings Fungal Smear - Final 04/15/18 12:32 Bronchial Washings Fungal Smear - Final 04/08/18 04/08/18 04/09/18 21:58 21:58 04:15 Creatine Kinase < 20 L CK-MB (CK-2) Troponin I 0.038 NT-Pro-B Natriuret Pep 5370 H 04/09/18 04/09/18 04/09/18 04:15 10:44 10:44 Creatine Kinase < 20 L CK-MB (CK-2) 1.06 0.64 Troponin I 0.034 0.046 NT-Pro-B Natriuret Pep 04/09/18 04/09/18 04/14/18 15:50 15:50 04:28 Creatine Kinase 30 L CK-MB (CK-2) 0.45 Troponin I 0.050 NT-Pro-B Natriuret Pep 9830 H Impressions: Chest Ultrasound 04/13/18 09:30 IMPRESSION: No thoracentesis was performed. Chest X-Ray 04/19/18 06:00 IMPRESSION: Left chest tube in place, no pneumothorax or pleural effusion Persistent dense left lower lobe consolidation worrisome for pneumonia Persistent unchanged trace right pleural effusion and medial right basilar airspace disease Assessment & Plan - Diagnosis (1) Acute respiratory failure with hypoxia and hypercapnia Is this a current diagnosis for this admission?: Yes Plan: Currently stable on his current ventilator settings. Bronchoscopy is tentatively scheduled for tomorrow to try to clean out some more of the stuff in his left lung. (2) Atrial fibrillation with rapid ventricular response Is this a current diagnosis for this admission?: Yes Plan: Currently rate controlled on his current medication regimen. (3) Left lower lobe atelectasis/plug Is this a current diagnosis for this admission?: Yes Plan: Bronchoscopy is tentatively scheduled for tomorrow. (4) Pleural effusion Is this a current diagnosis for this admission?: Yes Plan: Chest tube is to suction. Once he is extubated, we may be able to remove this, but he still has output of about 100-150 mL's a day. (5) Pneumonia Qualifiers: Pneumonia type: due to Pseudomonas Laterality: bilateral Lung location: lower lobe of lung Qualified Code(s): J15.1 - Pneumonia due to Pseudomonas Is this a current diagnosis for this admission?: Yes - Time Time Spent with patient: 25-34 minutes
[2018-04-20] MEDS: IPRATROPIUM/ALBUTEROL 0.5-2.5 MG/3 ML AMPUL NEB SCH ×4 (01:57→21:01)
[2018-04-20] MEDS: MIDAZOLAM HCL 50 MG/100 ML RTUINJ IV PRN ×3 (02:30→18:24)
[2018-04-20] MEDS: INSULIN LISPRO 100 UNIT/ML 3 ML VIAL SUBCUT SCH ×5 (02:30→23:57)
[2018-04-20 05:10] LABS: HEMATOCRIT 26.1 % (37.9-51.0); HEMOGLOBIN 8.6 g/dL (13.5-17.0); MEAN CORPUSCULAR HEMOGLOBIN 27.1 pg (27.0-33.4); MEAN CORPUSCULAR HGB CONC 33.1 g/dL (32.0-36.0); MEAN CORPUSCULAR VOLUME 82 fl (80-97); PLATELET COUNT 200 10^3/uL (150-450); RED BLOOD COUNT 3.19 10^6/uL (4.35-5.55); RED CELL DISTRIBUTION WIDTH 21.7 % (11.5-14.0); WHITE BLOOD COUNT 6.7 10^3/uL (4.0-10.5)
[2018-04-20 05:46] LABS: ARTERIAL BLOOD H2CO3 1.18 mmol/L (1.05-1.35); ARTERIAL BLOOD HCO3 28.5 mmol/L (20-24); ARTERIAL BLOOD PCO2 39.3 mmHg (35-45); ARTERIAL BLOOD PH 7.48 (7.35-7.45); ARTERIAL BLOOD PO2 102.4 mmHg (80-100); ARTERIAL BLOOD TOTAL CO2 29.8 mmol/L (23-27)
[2018-04-20 05:47] LABS: BLOOD UREA NITROGEN 18 mg/dL (7-20); CALCIUM 8.3 mg/dL (8.4-10.2); GLUCOSE 155 mg/dL (75-110); POTASSIUM 3.7 mmol/L (3.6-5.0)
[2018-04-20 05:53] LABS: CARBON DIOXIDE 30 mmol/L (22-30); CHLORIDE 110 mmol/L (98-107); SODIUM 144.2 mmol/L (137-145)
[2018-04-20 05:59] LABS: ANION GAP 4 (5-19)
[2018-04-20 06:27] LABS: ARTERIAL BLOOD FIO2 45
[2018-04-20] MEDS: METOPROLOL TARTRATE 25 MG TABLET PO SCH ×2 (06:30→17:55)
[2018-04-20] MEDS: HEPARIN SOD (PORCINE) 5,000 UNIT/ML 1 ML SYRINGE SUBCUT SCH ×3 (06:30→22:23)
[2018-04-20] MEDS: ACETYLCYSTEINE 20% SOLN 800 MG/4 ML VIAL.NEB NEB SCH ×2 (09:32→21:01)
[2018-04-20] MEDS: TOBRAMYCIN SULFATE NEB 40 MG/ML 30 ML NEB SCH ×2 (09:33→21:00)
[2018-04-20] MEDS: DIGOXIN 0.25 MG TABLET PO SCH (10:23)
[2018-04-20] MEDS: LEVOFLOXACIN 750 MG/D5W RTU 750 MG/150 ML RTUPB IV SCH (10:23)
[2018-04-20] MEDS: ASPIRIN 81 MG TABLET, CHEWABLE PEG SCH (10:23)
[2018-04-20] MEDS: NORMAL SALINE 1000 ML 1,000 ML IV PRN (10:25)
[2018-04-20] MEDS: FENTANYL CITRATE INJ/PF 100 MCG/2 ML AMPUL IV PRN (14:36)
[2018-04-20] MEDS ORDERED: MIDAZOLAM 2 MG/2 ML INJ ONE (16:52)
[2018-04-20] MEDS ORDERED: LIDOCAINE 1% INJ-PF (10 MG/ML) 30 ML SDV ONE (16:52)
[2018-04-20] MEDS ORDERED: PROPOFOL 1,000 MG/100 ML INFUS..BTL IV ONE (16:58)
[2018-04-20 18:52] LABS: FLUID APPEARANCE CLOUDY; FLUID COLOR RED; FLUID SOURCE LUNG; FLUID TYPE BRONCHIAL WASH; FLUID VISCOSITY SLIGHTLY VISCOUS
--- NOTE | 2018-04-20 19:22 | PDOC PROGRESS REPORT ---
Subjective Progress Note for:: 04/20/18 Subjective:: Intubated and sedated. Opens eyes spontaneously on occasion but does not track. He does not respond to questions. Reason For Visit: ACUTE RESPIRATORY FAILURE WITH HYPOXIA Atrial fibrillation with rapid ventricular response Physical Exam Vital Signs: Temp Pulse Resp BP Pulse Ox 98.1 F 73 15 151/59 H 90 L 04/20/18 15:01 04/20/18 14:00 04/20/18 15:01 04/20/18 15:01 04/20/18 15:01 Intake & Output 04/19/18 04/20/18 04/21/18 06:59 06:59 06:59 Intake Total 2420 1710 1181 Output Total 3308 47478 440 Balance -880 -30679 741 Weight 125.9 kg 127.1 kg General appearance: PRESENT: no acute distress, obese, well-developed, other - Intubated and sedated Head exam: PRESENT: normocephalic Eye exam: PRESENT: conjunctiva pale. ABSENT: scleral icterus Ear exam: PRESENT: normal external ear exam Mouth exam: PRESENT: other - Endotracheal tube in place Teeth exam: PRESENT: other - Unable to assess Neck exam: ABSENT: carotid bruit, lymphadenopathy Respiratory exam: PRESENT: rales - On the left., symmetrical, unlabored, other - Chest tube on the left. Currently not breathing above the set rate. ABSENT: accessory muscle use, rhonchi, wheezes Cardiovascular exam: PRESENT: RRR, +S1, +S2 GI/Abdominal exam: PRESENT: normal bowel sounds, soft. ABSENT: tenderness Rectal exam: PRESENT: deferred Extremities exam: PRESENT: pedal edema Neurological exam: PRESENT: awake - Opened eyes spontaneously several times, oth er - No meaningful response to questions. ABSENT: alert Psychiatric exam: PRESENT: flat affect. ABSENT: agitated Focused psych exam: ABSENT: restlessness Results Laboratory Results: 04/20/18 05:00 04/20/18 05:00 04/20/18 04/20/18 04/20/18 05:00 05:00 05:00 WBC 6.7 RBC 3.19 L Hgb 8.6 L Hct 26.1 L MCV 82 MCH 27.1 MCHC 33.1 RDW 21.7 H Plt Count 200 Carbonic Acid 1.18 HCO3/H2CO3 Ratio 24:1 ABG pH 7.48 H ABG pCO2 39.3 ABG pO2 102.4 H ABG HCO3 28.5 H ABG O2 Saturation Not Reportable ABG Base Excess Not Reportable FiO2 45 Sodium 144.2 Potassium 3.7 Chloride 110 H Carbon Dioxide 30 Anion Gap 4 L BUN 18 Creatinine 0.77 Est GFR ( Amer) > 60 Est GFR (Non-Af Amer) > 60 Glucose 155 H Calcium 8.3 L 04/15/18 12:32 Bronchial Washings Gram Stain - Final 04/15/18 12:32 Bronchial Washings Bronchial Washings Culture - Final NO GROWTH 3 DAYS 04/15/18 10:10 Tracheal Aspirate Gram Stain - Final 04/15/18 10:10 Tracheal Aspirate Sputum Culture - Final Pseudomonas Aeruginosa Yeast, Not Pauline Albicans Normal Brittny Absent 04/08/18 04/08/18 04/09/18 21:58 21:58 04:15 Creatine Kinase < 20 L CK-MB (CK-2) Troponin I 0.038 NT-Pro-B Natriuret Pep 5370 H 04/09/18 04/09/18 04/09/18 04:15 10:44 10:44 Creatine Kinase < 20 L CK-MB (CK-2) 1.06 0.64 Troponin I 0.034 0.046 NT-Pro-B Natriuret Pep 04/09/18 04/09/18 04/14/18 15:50 15:50 04:28 Creatine Kinase 30 L CK-MB (CK-2) 0.45 Troponin I 0.050 NT-Pro-B Natriuret Pep 9830 H Impressions: Chest Ultrasound 04/13/18 09:30 IMPRESSION: No thoracentesis was performed. Chest X-Ray 04/19/18 06:00 IMPRESSION: Left chest tube in place, no pneumothorax or pleural effusion Persistent dense left lower lobe consolidation worrisome for pneumonia Persistent unchanged trace right pleural effusion and medial right basilar airspace disease Assessment & Plan - Diagnosis (1) Acute respiratory failure with hypoxia and hypercapnia Is this a current diagnosis for this admission?: Yes Plan: Likely a combination of the Pseudomonas pneumonia and left lower lobe collapse possibly from mucous plugging. Currently on the ventilator. Not breathing above the set rate. Oxygen supplementation. Continue nebulizer treatments. (2) Pneumonia Qualifiers: Pneumonia type: due to Pseudomonas Laterality: bilateral Lung location: lower lobe of lung Qualified Code(s): J15.1 - Pneumonia due to Pseudomonas Is this a current diagnosis for this admission?: Yes Plan: Continue current antibiotic therapy with levofloxacin. The patient will have another bronchoscopy this afternoon. (3) Left lower lobe atelectasis/plug Is this a current diagnosis for this admission?: Yes Plan: Bronchoscopy this afternoon. This will be a second. Multiple mucous plugs were removed during the last bronchoscopy. He still has a chest tube on the left draining greater than 100 mL per 24 hours. (4) Atrial fibrillation with rapid ventricular response Is this a current diagnosis for this admission?: Yes Plan: Appears to have good rate control with digoxin and metoprolol. Continue same. (5) Acute exacerbation of CHF (congestive heart failure) Qualifiers: Heart failure type: systolic Qualified Code(s): I50.23 - Acute on chronic systolic (congestive) heart failure Is this a current diagnosis for this admission?: Yes Plan: Seems to be in a net negative fluid balance. We will continue to monitor intake and output and apply judicious use of diuretic therapy. (6) Diabetes mellitus type 2 in obese Is this a current diagnosis for this admission?: Yes Plan: Continue Accu-Cheks and sliding scale insulin (7) COPD (chronic obstructive pulmonary disease) with emphysema Qualifiers: Emphysema type: centrilobular Qualified Code(s): J43.2 - Centrilobular emphysema Is this a current diagnosis for this admission?: Yes Plan: Still on the ventilator. Nebulizer treatments as above. (8) Morbid obesity with alveolar hypoventilation Is this a current diagnosis for this admission?: Yes Plan: An additional risk factor with regard to his respiratory failure and goal of extubation. - Time Time Spent with patient: 35 or more minutes Medications reviewed and adjusted accordingly: Yes
[2018-04-21] MEDS: IPRATROPIUM/ALBUTEROL 0.5-2.5 MG/3 ML AMPUL NEB SCH ×4 (02:42→20:26)
[2018-04-21 05:36] LABS: ARTERIAL BLOOD BASE EXCESS 2.7 mmol/L; ARTERIAL BLOOD H2CO3 1.23 mmol/L (1.05-1.35); ARTERIAL BLOOD O2 SATURATION 94.8 % (94-98); ARTERIAL BLOOD PCO2 40.7 mmHg (35-45); ARTERIAL BLOOD PH 7.44 (7.35-7.45); ARTERIAL BLOOD PO2 70.6 mmHg (80-100); ARTERIAL BLOOD TOTAL CO2 28.3 mmol/L (23-27)
[2018-04-21 05:40] LABS: ABSOLUTE BASOPHILS # (AUTO) 0.1 10^3/uL (0.0-0.2); ABSOLUTE EOSINOPHILS # (AUTO) 0.1 10^3/uL (0.0-0.6); ABSOLUTE LYMPHOCYTES (AUTO) 0.5 10^3/uL (0.5-4.7); ABSOLUTE MONOCYTES (AUTO) 0.5 10^3/uL (0.1-1.4); ABSOLUTE NEUT (AUTO) 5.9 10^3/uL (1.7-8.2); ARTERIAL BLOOD FIO2 40%; BASOPHILS % (AUTO) 0.9 % (0-2); EOSINOPHILS % (AUTO) 1.1 % (0-6); HEMOGLOBIN 8.6 g/dL (13.5-17.0); LYMPHOCYTES % (AUTO) 7.6 % (13-45); MEAN CORPUSCULAR HEMOGLOBIN 27.3 pg (27.0-33.4); MEAN CORPUSCULAR HGB CONC 32.9 g/dL (32.0-36.0); MEAN CORPUSCULAR VOLUME 83 fl (80-97); MONOCYTES % (AUTO) 7.6 % (3-13); PLATELET COUNT 203 10^3/uL (150-450); RED BLOOD COUNT 3.14 10^6/uL (4.35-5.55); RED CELL DISTRIBUTION WIDTH 21.9 % (11.5-14.0); SEGMENTED NEUTROPHILS % (AUTO) 82.8 % (42-78); TOTAL CELLS COUNTED % (AUTO) 100 %; WHITE BLOOD COUNT 7.2 10^3/uL (4.0-10.5)
[2018-04-21] MEDS: MIDAZOLAM HCL 50 MG/100 ML RTUINJ IV PRN ×2 (05:49→16:10)
[2018-04-21 06:07] LABS: BLOOD UREA NITROGEN 17 mg/dL (7-20); CALCIUM 8.6 mg/dL (8.4-10.2); CARBON DIOXIDE 30 mmol/L (22-30); CHLORIDE 107 mmol/L (98-107); GLUCOSE 137 mg/dL (75-110); POTASSIUM 3.7 mmol/L (3.6-5.0); SODIUM 141.3 mmol/L (137-145)
[2018-04-21 06:11] LABS: ANION GAP 5 (5-19)
[2018-04-21] MEDS: METOPROLOL TARTRATE 25 MG TABLET PO SCH ×2 (06:39→17:25)
[2018-04-21] MEDS: INSULIN LISPRO 100 UNIT/ML 3 ML VIAL SUBCUT SCH ×3 (06:39→17:25)
[2018-04-21] MEDS: HEPARIN SOD (PORCINE) 5,000 UNIT/ML 1 ML SYRINGE SUBCUT SCH ×3 (06:40→21:03)
--- NOTE | 2018-04-21 06:47 | RADIOLOGY REPORT (SQ) ---
EXAM DESCRIPTION: XR CHEST 1 VIEW COMPLETED DATE/TME: 04/21/2018 06:00 CLINICAL HISTORY: 67 years, Male, pna resp failure COMPARISON: 04/19/2018 chest NUMBER OF VIEWS: 1 TECHNIQUE: Portable chest LIMITATIONS: None. FINDINGS: Cardiomegaly. Grossly stable indwelling lines and catheters. Bibasilar airspace opacities. No discrete pneumothorax. a left thoracostomy tube projecting over the lateral left lung base is partially seen. IMPRESSION: Little interval change copyright 2010 [employer]- All Rights Reserved
[2018-04-21] MEDS: ACETYLCYSTEINE 20% SOLN 800 MG/4 ML VIAL.NEB NEB SCH ×2 (08:22→20:26)
[2018-04-21] MEDS: TOBRAMYCIN SULFATE NEB 40 MG/ML 30 ML NEB SCH ×2 (08:22→20:25)
[2018-04-21] MEDS: LEVOFLOXACIN 750 MG/D5W RTU 750 MG/150 ML RTUPB IV SCH (09:24)
[2018-04-21] MEDS: DIGOXIN 0.25 MG TABLET PO SCH (09:24)
[2018-04-21] MEDS: ASPIRIN 81 MG TABLET, CHEWABLE PEG SCH (09:24)
[2018-04-21] MEDS: NORMAL SALINE 1000 ML 1,000 ML IV PRN (09:25)
[2018-04-21] MEDS: FENTANYL CITRATE INJ/PF 100 MCG/2 ML AMPUL IV PRN (16:10)
--- NOTE | 2018-04-21 19:46 | PDOC PROGRESS REPORT ---
Subjective Progress Note for:: 04/21/18 Subjective:: Patient had bronchoscopy yesterday. We are initiating weaning trial again this AM. Still with chest tube. He does open his eyes occasionally to verbal stimulus. Reason For Visit: ACUTE RESPIRATORY FAILURE WITH HYPOXIA Left lower lobe atelectasis Pseudomonas aeruginosa pneumonia Atrial fibrillation Physical Exam Vital Signs: Temp Pulse Resp BP Pulse Ox 98.1 F 66 28 H 135/58 H 97 04/21/18 08:00 04/21/18 08:24 04/21/18 08:24 04/21/18 08:00 04/21/18 08:24 Intake & Output 04/20/18 04/21/18 04/22/18 06:59 06:59 06:59 Intake Total 1710 2695 56 Output Total 31661 1510 105 Balance -12733 1185 -49 Weight 127.1 kg 127.9 kg General appearance: PRESENT: no acute distress, morbidly obese, well-developed, other - Intubated and sedated Head exam: PRESENT: normocephalic Eye exam: PRESENT: other - Unable to assess. Patient resisted passive opening of his eyes Ear exam: PRESENT: normal external ear exam Mouth exam: PRESENT: other - Endotracheal tube in place Neck exam: ABSENT: carotid bruit, lymphadenopathy, tracheostomy Respiratory exam: PRESENT: clear to auscultation ernesto - anteriorly, decreased breath sounds - At the bases, symmetrical, other - chest tube on the left. ABSENT: stridor Cardiovascular exam: PRESENT: RRR, +S1, +S2, systolic murmur - 2/6 GI/Abdominal exam: PRESENT: normal bowel sounds, soft. ABSENT: distended, tenderness Rectal exam: PRESENT: deferred Gentrourinary exam: PRESENT: indwelling catheter Extremities exam: PRESENT: pedal edema, +1 edema - Arms, +2 edema - Left arm Neurological exam: ABSENT: alert, awake - He does occasionally open his eyes. Psychiatric exam: PRESENT: flat affect. ABSENT: agitated, anxious Focused psych exam: ABSENT: restlessness Results Laboratory Results: 04/21/18 05:15 04/21/18 05:15 04/20/18 04/21/18 04/21/18 17:40 05:15 05:15 WBC RBC Hgb Hct MCV MCH MCHC RDW Plt Count Seg Neutrophils % Lymphocytes % Monocytes % Eosinophils % Basophils % Absolute Neutrophils Absolute Lymphocytes Absolute Monocytes Absolute Eosinophils Absolute Basophils Carbonic Acid 1.23 HCO3/H2CO3 Ratio 21:1 ABG pH 7.44 ABG pCO2 40.7 ABG pO2 70.6 L ABG HCO3 27.0 H ABG O2 Saturation 94.8 ABG Base Excess 2.7 FiO2 40% Sodium 141.3 Potassium 3.7 Chloride 107 Carbon Dioxide 30 Anion Gap 5 BUN 17 Creatinine 0.66 Est GFR ( Amer) > 60 Est GFR (Non-Af Amer) > 60 Glucose 137 H Calcium 8.6 Magnesium 1.8 Fluid Type BRONCHIAL WASH Fluid Source LUNG Fluid Color RED Fluid Appearance CLOUDY Fluid Viscosity SLIGHTLY VISCOUS Fluid WBC 1128 Fluid RBC 61175 04/21/18 05:15 WBC 7.2 RBC 3.14 L Hgb 8.6 L Hct 26.0 L MCV 83 MCH 27.3 MCHC 32.9 RDW 21.9 H Plt Count 203 Seg Neutrophils % 82.8 H Lymphocytes % 7.6 L Monocytes % 7.6 Eosinophils % 1.1 Basophils % 0.9 Absolute Neutrophils 5.9 Absolute Lymphocytes 0.5 Absolute Monocytes 0.5 Absolute Eosinophils 0.1 Absolute Basophils 0.1 Carbonic Acid HCO3/H2CO3 Ratio ABG pH ABG pCO2 ABG pO2 ABG HCO3 ABG O2 Saturation ABG Base Excess FiO2 Sodium Potassium Chloride Carbon Dioxide Anion Gap BUN Creatinine Est GFR ( Amer) Est GFR (Non-Af Amer) Glucose Calcium Magnesium Fluid Type Fluid Source Fluid Color Fluid Appearance Fluid Viscosity Fluid WBC Fluid RBC 04/08/18 04/08/18 04/09/18 21:58 21:58 04:15 Creatine Kinase < 20 L CK-MB (CK-2) Troponin I 0.038 NT-Pro-B Natriuret Pep 5370 H 04/09/18 04/09/18 04/09/18 04:15 10:44 10:44 Creatine Kinase < 20 L CK-MB (CK-2) 1.06 0.64 Troponin I 0.034 0.046 NT-Pro-B Natriuret Pep 04/09/18 04/09/18 04/14/18 15:50 15:50 04:28 Creatine Kinase 30 L CK-MB (CK-2) 0.45 Troponin I 0.050 NT-Pro-B Natriuret Pep 9830 H Impressions: Chest Ultrasound 04/13/18 09:30 IMPRESSION: No thoracentesis was performed. Chest X-Ray 04/21/18 06:00 IMPRESSION: Little interval change copyright 2011 [employer]- All Rights Reserved Assessment & Plan - Diagnosis (1) Acute respiratory failure with hypoxia and hypercapnia Is this a current diagnosis for this admission?: Yes Plan: Continue weaning trials with oxygen supplementation as indicated. Continue nebulizers as well. (2) Pneumonia Qualifiers: Pneumonia type: due to Pseudomonas Laterality: bilateral Lung location: lower lobe of lung Qualified Code(s): J15.1 - Pneumonia due to Pseudomonas Is this a current diagnosis for this admission?: Yes Plan: Continue levofloxacin as ordered. The patient did have a bronchoscopy yesterday. The secretions were positive for many polymorphonuclear leukocytes but no bacteria was seen on Gram stain. (3) Left lower lobe atelectasis/plug Is this a current diagnosis for this admission?: Yes Plan: The patient did have bronchoscopy again yesterday. Today's chest x-ray did not show marked improvement. It is stable however. Still on acetylcysteine. (4) Atrial fibrillation with rapid ventricular response Is this a current diagnosis for this admission?: Yes Plan: Currently in sinus rhythm. Continue current medication regimen of digoxin and metoprolol. (5) Acute exacerbation of CHF (congestive heart failure) Qualifiers: Heart failure type: systolic Qualified Code(s): I50.23 - Acute on chronic systolic (congestive) heart failure Is this a current diagnosis for this admission?: Yes Plan: Currently stable. He is on Aldactone, metoprolol and hydralazine. (6) Diabetes mellitus type 2 in obese Is this a current diagnosis for this admission?: Yes Plan: Continue Accu-Cheks and sliding scale. (7) COPD (chronic obstructive pulmonary disease) with emphysema Qualifiers: Emphysema type: centrilobular Qualified Code(s): J43.2 - Centrilobular emphysema Is this a current diagnosis for this admission?: Yes Plan: Continue nebulizer therapies as ordered as well as above interventions for the respiratory failure. (8) Morbid obesity with alveolar hypoventilation Is this a current diagnosis for this admission?: Yes Plan: This will be one obstacle post extubation. His history of chronic obstructive p ulmonary disease as well as his congestive heart failure will be contributors as well. We will try and encourage weight loss if the patient recovers. - Time Time Spent with patient: 35 or more minutes Medications reviewed and adjusted accordingly: Yes Anticipated discharge: SNF
[2018-04-22] MEDS: INSULIN LISPRO 100 UNIT/ML 3 ML VIAL SUBCUT SCH ×5 (00:14→23:22)
[2018-04-22] MEDS: NORMAL SALINE 1000 ML 1,000 ML IV PRN (00:15)
[2018-04-22] MEDS: IPRATROPIUM/ALBUTEROL 0.5-2.5 MG/3 ML AMPUL NEB SCH ×4 (02:23→20:05)
[2018-04-22] MEDS: MIDAZOLAM HCL 50 MG/100 ML RTUINJ IV PRN (03:47)
[2018-04-22 05:11] LABS: ABSOLUTE BASOPHILS # (AUTO) 0.1 10^3/uL (0.0-0.2); ABSOLUTE EOSINOPHILS # (AUTO) 0.1 10^3/uL (0.0-0.6); ABSOLUTE LYMPHOCYTES (AUTO) 0.6 10^3/uL (0.5-4.7); ABSOLUTE MONOCYTES (AUTO) 0.6 10^3/uL (0.1-1.4); ABSOLUTE NEUT (AUTO) 5.3 10^3/uL (1.7-8.2); BASOPHILS % (AUTO) 1.1 % (0-2); EOSINOPHILS % (AUTO) 1.4 % (0-6); HEMATOCRIT 25.4 % (37.9-51.0); HEMOGLOBIN 8.3 g/dL (13.5-17.0); LYMPHOCYTES % (AUTO) 8.8 % (13-45); MEAN CORPUSCULAR HEMOGLOBIN 27.1 pg (27.0-33.4); MEAN CORPUSCULAR HGB CONC 32.7 g/dL (32.0-36.0); MEAN CORPUSCULAR VOLUME 83 fl (80-97); MONOCYTES % (AUTO) 8.8 % (3-13); PLATELET COUNT 191 10^3/uL (150-450); RED BLOOD COUNT 3.06 10^6/uL (4.35-5.55); SEGMENTED NEUTROPHILS % (AUTO) 79.9 % (42-78); TOTAL CELLS COUNTED % (AUTO) 100 %; WHITE BLOOD COUNT 6.6 10^3/uL (4.0-10.5)
[2018-04-22 05:14] LABS: ARTERIAL BLOOD BASE EXCESS 2.7 mmol/L; ARTERIAL BLOOD H2CO3 1.19 mmol/L (1.05-1.35); ARTERIAL BLOOD HCO3 26.8 mmol/L (20-24); ARTERIAL BLOOD O2 SATURATION 97.5 % (94-98); ARTERIAL BLOOD PCO2 39.5 mmHg (35-45); ARTERIAL BLOOD PH 7.45 (7.35-7.45); ARTERIAL BLOOD PO2 94.6 mmHg (80-100)
[2018-04-22 05:19] LABS: ARTERIAL BLOOD FIO2 40%
[2018-04-22 05:29] LABS: BLOOD UREA NITROGEN 16 mg/dL (7-20); CALCIUM 8.3 mg/dL (8.4-10.2); GLUCOSE 142 mg/dL (75-110); PHOSPHORUS 3.6 mg/dL (2.5-4.5); POTASSIUM 3.9 mmol/L (3.6-5.0)
[2018-04-22 05:34] LABS: ANION GAP 5 (5-19); CARBON DIOXIDE 29 mmol/L (22-30); CHLORIDE 106 mmol/L (98-107); SODIUM 139.6 mmol/L (137-145)
[2018-04-22] MEDS: METOPROLOL TARTRATE 25 MG TABLET PO SCH ×2 (05:46→17:29)
[2018-04-22] MEDS: HEPARIN SOD (PORCINE) 5,000 UNIT/ML 1 ML SYRINGE SUBCUT SCH ×3 (05:46→21:04)
[2018-04-22] MEDS: ACETYLCYSTEINE 20% SOLN 800 MG/4 ML VIAL.NEB NEB SCH ×2 (08:14→20:05)
[2018-04-22] MEDS: TOBRAMYCIN SULFATE NEB 40 MG/ML 30 ML NEB SCH ×2 (08:15→20:05)
[2018-04-22] MEDS: LEVOFLOXACIN 750 MG/D5W RTU 750 MG/150 ML RTUPB IV SCH (09:21)
[2018-04-22] MEDS: DIGOXIN 0.25 MG TABLET PO SCH (09:22)
[2018-04-22] MEDS: ASPIRIN 81 MG TABLET, CHEWABLE PEG SCH (09:22)
--- NOTE | 2018-04-22 09:40 | RADIOLOGY REPORT (SQ) ---
EXAM DESCRIPTION: CHEST SINGLE VIEW COMPLETED DATE/TIME: 04/22/2018 7:00 am REASON FOR STUDY: pna COMPARISON: Previous day. NUMBER OF VIEWS: One view. TECHNIQUE: Single frontal radiographic image of the chest acquired. LIMITATIONS: None. FINDINGS: LUNGS AND PLEURA: Small pleural effusions and associated airspace disease, left greater th an right. No pneumothorax. MEDIASTINUM AND HEART: Stable heart size and mediastinal structures. SUPPORT DEVICES: Appropriate location without change. BONY STRUCTURES: No acute findings. HARDWARE: None. OTHER: No other significant finding. IMPRESSION: STABLE APPEARANCE OF THE CHEST. SUPPORT DEVICES UNCHANGED. Reading location - IP/workstation name: [email or web address]
[2018-04-22] MEDS ORDERED: DEXAMETHASONE SOD PHOSPHATE INJ 4 MG/1 ML VIAL ONE (10:30)
[2018-04-22 11:43] LABS: ARTERIAL BLOOD FIO2 50%; ARTERIAL BLOOD H2CO3 1.36 mmol/L (1.05-1.35); ARTERIAL BLOOD HCO3 28.9 mmol/L (20-24); ARTERIAL BLOOD O2 SATURATION 98.5 % (94-98); ARTERIAL BLOOD PCO2 45.2 mmHg (35-45); ARTERIAL BLOOD PH 7.42 (7.35-7.45); ARTERIAL BLOOD PO2 123.1 mmHg (80-100); ARTERIAL BLOOD TOTAL CO2 30.2 mmol/L (23-27)
[2018-04-22 13:52] LABS: ARTERIAL BLOOD H2CO3 1.38 mmol/L (1.05-1.35); ARTERIAL BLOOD HCO3 28.2 mmol/L (20-24); ARTERIAL BLOOD O2 SATURATION 93.3 % (94-98); ARTERIAL BLOOD PCO2 45.9 mmHg (35-45); ARTERIAL BLOOD PH 7.41 (7.35-7.45); ARTERIAL BLOOD PO2 67.1 mmHg (80-100); ARTERIAL BLOOD TOTAL CO2 29.6 mmol/L (23-27)
[2018-04-22 13:55] LABS: ARTERIAL BLOOD FIO2 40%
[2018-04-22] MEDS: HYDRALAZINE HCL INJ/PF 20 MG/1 ML SDV IV PRN ×2 (15:49→22:05)
--- NOTE | 2018-04-22 16:28 | Progress Note ---
Provider Note Provider Note: ID Consult Note Asked to review patient's chart by Pharmacy. Pt not seen or examined. Pt is a 67 yo man with PMH including morbid obesity, COPD, PATEL, CHF, AF, DM who presented to [facility] on 04/09/18 from his assisted with acute dyspnea and reported fever prior to presentation. He has a recent hx of hospitalization at [facility] prior to discharge to SNF and presentation to [facility] ED. His exam was notable for dry oral mucosa, respiratory distress, moderately decreased breath sounds at both lung bases and moderate bibasilar symmetric rales, systolic murmur L sternal border, 2+ BLE edema, and irregularly irregular cardiac rhythm. He was intubated for respiratory failure. Initially he was given IV vancomycin empirically and levofloxacin. Initial CXR was read as showing cardiomegaly and mild pulmonary vascular congestion and suspected small bibasilar effusions. Tracheal aspirate grew Pseudomonas aeruginosa. Vancomycin was discontinued appropriately. Subsequently he had progression of pleural effusion on the L. An attempt at thoracentesis was not tolerated by the patient, so L chest tube was inserted for pleural effusion on 04/14 instead with output of blood tinged fluid. The gram stain of the pleural fluid showed no organisms. The aerobic/anaerobic culture of pleural fluid had no growth. The LDH pleural fluid was 147, the total protein 1.6. Repeat tracheal aspirate was sent on 04/15 which grew 3+ Pseudomonas aeruginosa and 3+ non C albicans yeast. Pt had bronchoscopy with BAL on 04/15 for LLL atelectasis/mucous plugging. Bronchial washings on 04/15 had no bacterial growth, same for repeat on 04/20. Levaquin has been continued from 04/09 to present 04/22. Pt has been afebrile. Fio2 was able to be weaned down from 55% earlier in his admission to 35-40%. CXRs stable basilar consolidation L>R, similar over past week. Impression/Recommendations Pt has been treated for Pseudomonas aeruginosa pneumonia with uncomplicated L sided parapneumonic effusion, s/p chest tube drainage - In absence of a complicated parapneumonic effusion or empyema, duration of therapy should be about the same as for the underlying pneumonia itself. He has been treated for a prolonged period of time already (13 days now), and he has had clinical improvement with no increase in oxygenation requirements, no fever, no leukocytosis, stable CXR. Radiographic improvement lags behind clinical improvement and can take weeks to resolve. His comorbidities may make vent weani ng difficult or prolonged, but he appears to have been adequately treated for pneumonia at this point. In absence of complications, such as a lung abscess or empyema, continuing systemic antibiotics for longer is not likely to benefit pt and could be associated with undue risk of harm (e.g. antimicrobial selection pressure, qtc prolongation, c difficile infection, etc). - Recommend discontinuing Levaquin Fer Sutton MD [facility] pager [phone]
[2018-04-22] MEDS: METOPROLOL TARTRATE PF/INJ 5 MG/5 ML SDV IV SCH (21:04)
--- NOTE | 2018-04-22 21:08 | PDOC PROGRESS REPORT ---
Subjective Progress Note for:: 04/22/18 Subjective:: Currently extubated and on BiPAP. He still looks like he is somewhat struggling to breathe. Is not able to answer questions clearly. It does not appear that he is mentating clearly. Reason For Visit: ACUTE RESPIRATORY FAILURE WITH HYPOXIA Physical Exam Vital Signs: Temp Pulse Resp BP Pulse Ox 98.1 F 68 19 136/61 H 92 04/22/18 12:56 04/22/18 12:56 04/22/18 12:56 04/22/18 12:56 04/22/18 12:56 Intake & Output 04/21/18 04/22/18 04/23/18 06:59 06:59 06:59 Intake Total 3695 2211 Output Total 1510 1710 440 Balance 2185 501 -440 Weight 127.9 kg 127.1 kg General appearance: PRESENT: mild distress, morbidly obese, well-developed Head exam: PRESENT: normocephalic Ear exam: PRESENT: normal external ear exam Mouth exam: PRESENT: other - BiPAP mask in place Neck exam: ABSENT: carotid bruit, lymphadenopathy Respiratory exam: PRESENT: decreased breath sounds - Breath sounds are coarse bilaterally, tachypnea, other - Chest tube on the left. ABSENT: wheezes Cardiovascular exam: PRESENT: RRR, +S1, +S2 GI/Abdominal exam: PRESENT: normal bowel sounds, soft. ABSENT: guarding, tenderness Rectal exam: PRESENT: deferred Gentrourinary exam: PRESENT: indwelling catheter Extremities exam: PRESENT: +2 edema - Upper extremities. ABSENT: pedal edema Neurological exam: PRESENT: altered - He is awake and alert. Does not maintain eye contact. Is unable to answer simple yes and no questions with a nod of his head. Psychiatric exam: PRESENT: anxious, appropriate affect Results Laboratory Results: 04/22/18 04:45 04/22/18 04:45 04/22/18 04/22/18 04/22/18 04:45 04:45 04:45 WBC 6.6 RBC 3.06 L Hgb 8.3 L Hct 25.4 L MCV 83 MCH 27.1 MCHC 32.7 RDW 22.0 H Plt Count 191 Seg Neutrophils % 79.9 H Lymphocytes % 8.8 L Monocytes % 8.8 Eosinophils % 1.4 Basophils % 1.1 Absolute Neutrophils 5.3 Absolute Lymphocytes 0.6 Absolute Monocytes 0.6 Absolute Eosinophils 0.1 Absolute Basophils 0.1 Carbonic Acid 1.19 HCO3/H2CO3 Ratio 22:1 ABG pH 7.45 ABG pCO2 39.5 ABG pO2 94.6 ABG HCO3 26.8 H ABG O2 Saturation 97.5 ABG Base Excess 2.7 FiO2 40% Sodium 139.6 Potassium 3.9 Chloride 106 Carbon Dioxide 29 Anion Gap 5 BUN 16 Creatinine 0.60 Est GFR ( Amer) > 60 Est GFR (Non-Af Amer) > 60 Glucose 142 H Calcium 8.3 L Phosphorus 3.6 Magnesium 1.7 04/22/18 11:30 WBC RBC Hgb Hct MCV MCH MCHC RDW Plt Count Seg Neutrophils % Lymphocytes % Monocytes % Eosinophils % Basophils % Absolute Neutrophils Absolute Lymphocytes Absolute Monocytes Absolute Eosinophils Absolute Basophils Carbonic Acid 1.36 H HCO3/H2CO3 Ratio 21:1 ABG pH 7.42 ABG pCO2 45.2 H ABG pO2 123.1 H ABG HCO3 28.9 H ABG O2 Saturation 98.5 H ABG Base Excess 4.0 FiO2 50% Sodium Potassium Chloride Carbon Dioxide Anion Gap BUN Creatinine Est GFR ( Amer) Est GFR (Non-Af Amer) Glucose Calcium Phosphorus Magnesium 04/20/18 17:40 Bronchial Washings Gram Stain - Final 04/20/18 17:40 Bronchial Washings Bronchial Washings Culture - Final NO GROWTH 2 DAYS 04/14/18 11:50 Chest Tube Fluid Fungal Smear - Final 04/14/18 11:50 Chest Tube Fluid Fungal Smear - Final 04/08/18 04/08/18 04/09/18 21:58 21:58 04:15 Creatine Kinase < 20 L CK-MB (CK-2) Troponin I 0.038 NT-Pro-B Natriuret Pep 5370 H 04/09/18 04/09/18 04/09/18 04:15 10:44 10:44 Creatine Kinase < 20 L CK-MB (CK-2) 1.06 0.64 Troponin I 0.034 0.046 NT-Pro-B Natriuret Pep 04/09/18 04/09/18 04/14/18 15:50 15:50 04:28 Creatine Kinase 30 L CK-MB (CK-2) 0.45 Troponin I 0.050 NT-Pro-B Natriuret Pep 9830 H Impressions: Chest Ultrasound 04/13/18 09:30 IMPRESSION: No thoracentesis was performed. Chest X-Ray 04/22/18 06:00 IMPRESSION: STABLE APPEARANCE OF THE CHEST. SUPPORT DEVICES UNCHANGED. Assessment & Plan - Diagnosis (1) Acute respiratory failure with hypoxia and hypercapnia Is this a current diagnosis for this admission?: Yes Plan: Extubated today. Currently on BiPAP. Has not been able to trial off of BiPAP. We will check a blood gas. Currently the patient's would reintubated if he fails BiPAP. (2) Pneumonia Qualifiers: Pneumonia type: due to Pseudomonas Laterality: bilateral Lung location: lower lobe of lung Qualified Code(s): J15.1 - Pneumonia due to Pseudomonas Is this a current diagnosis for this admission?: Yes Plan: Per infectious diseases (Dr. Sutton) will discontinue levofloxacin. (3) Left lower lobe atelectasis/plug Is this a current diagnosis for this admission?: Yes Plan: Bronchoscopy x2. Continue to follow chest x-ray. (4) Atrial fibrillation with rapid ventricular response Is this a current diagnosis for this admission?: Yes Plan: Currently in sinus rhythm. Continue current medication regimen of digoxin and metoprolol. (5) Acute exacerbation of CHF (congestive heart failure) Qualifiers: Heart failure type: systolic Qualified Code(s): I50.23 - Acute on chronic systolic (congestive) heart failure Is this a current diagnosis for this admission?: Yes Plan: Currently stable. He is on Aldactone, metoprolol and hydralazine. Continue to monitor intake and output as well as electrolytes and renal function while on diuretics. (6) Diabetes mellitus type 2 in obese Is this a current diagnosis for this admission?: Yes Plan: Continue Accu-Cheks and sliding scale. (7) COPD (chronic obstructive pulmonary disease) with emphysema Qualifiers: Emphysema type: centrilobular Qualified Code(s): J43.2 - Centrilobular emphysema Is this a current diagnosis for this admission?: Yes Plan: Continue nebulizer therapies as ordered as well as above interventions for the respiratory failure. (8) Morbid obesity with alveolar hypoventilation Is this a current diagnosis for this admission?: Yes Plan: This will be one of the obstacles for improvement post extubation. His history of chronic obstructive pulmonary disease as well as his congestive heart failure will be contributors as well. - Time Time Spent with patient: 35 or more minutes Medications reviewed and adjusted accordingly: Yes
[2018-04-23] MEDS: METOPROLOL TARTRATE PF/INJ 5 MG/5 ML SDV IV SCH ×6 (00:59→21:39)
[2018-04-23] MEDS: IPRATROPIUM/ALBUTEROL 0.5-2.5 MG/3 ML AMPUL NEB SCH ×4 (02:27→20:12)
[2018-04-23 03:37] LABS: ARTERIAL BLOOD HCO3 25.7 mmol/L (20-24); ARTERIAL BLOOD O2 SATURATION 94.4 % (94-98); ARTERIAL BLOOD PCO2 36.4 mmHg (35-45); ARTERIAL BLOOD PH 7.47 (7.35-7.45); ARTERIAL BLOOD PO2 66.8 mmHg (80-100); ARTERIAL BLOOD TOTAL CO2 26.8 mmol/L (23-27)
[2018-04-23 03:38] LABS: ABSOLUTE LYMPHOCYTES (AUTO) 0.3 10^3/uL (0.5-4.7); ABSOLUTE MONOCYTES (AUTO) 0.3 10^3/uL (0.1-1.4); ABSOLUTE NEUT (AUTO) 4.9 10^3/uL (1.7-8.2); ARTERIAL BLOOD FIO2 45%; BASOPHILS % (AUTO) 0.4 % (0-2); HEMATOCRIT 28.6 % (37.9-51.0); HEMOGLOBIN 9.4 g/dL (13.5-17.0); LYMPHOCYTES % (AUTO) 5.8 % (13-45); MEAN CORPUSCULAR HEMOGLOBIN 26.9 pg (27.0-33.4); MEAN CORPUSCULAR HGB CONC 32.7 g/dL (32.0-36.0); MEAN CORPUSCULAR VOLUME 82 fl (80-97); MONOCYTES % (AUTO) 5.3 % (3-13); PLATELET COUNT 229 10^3/uL (150-450); RED BLOOD COUNT 3.47 10^6/uL (4.35-5.55); RED CELL DISTRIBUTION WIDTH 22.1 % (11.5-14.0); SEGMENTED NEUTROPHILS % (AUTO) 88.5 % (42-78); TOTAL CELLS COUNTED % (AUTO) 100 %; WHITE BLOOD COUNT 5.5 10^3/uL (4.0-10.5)
[2018-04-23 04:03] LABS: ANION GAP 9 (5-19); BLOOD UREA NITROGEN 18 mg/dL (7-20); CALCIUM 8.8 mg/dL (8.4-10.2); CARBON DIOXIDE 27 mmol/L (22-30); CHLORIDE 104 mmol/L (98-107); GLUCOSE 184 mg/dL (75-110); POTASSIUM 4.2 mmol/L (3.6-5.0); SODIUM 139.5 mmol/L (137-145)
[2018-04-23] MEDS: INSULIN LISPRO 100 UNIT/ML 3 ML VIAL SUBCUT SCH ×3 (05:37→17:31)
[2018-04-23] MEDS: HEPARIN SOD (PORCINE) 5,000 UNIT/ML 1 ML SYRINGE SUBCUT SCH ×3 (05:38→21:38)
[2018-04-23] MEDS: METOPROLOL TARTRATE 25 MG TABLET PO SCH ×2 (05:38→17:31)
--- NOTE | 2018-04-23 07:00 | RADIOLOGY REPORT (SQ) ---
EXAM DESCRIPTION: X-ray single view chest. CLINICAL HISTORY: 67 years Male, effusion/pna/resp failure COMPARISON: 04/22/2018 and 04/21/2018 TECHNIQUE: Single portable view of the chest performed on 04/23/2018 at 5:56 AM FINDINGS: The lungs are well expanded. There is improving aeration of the left lung base when compared to the prior study. There is persistent volume loss in the right inferior hemithorax. There is no evidence of a pneumothorax. The cardiac silhouette is stable and is mildly enlarged. An implantable heart rate monitor is again noted. The mediastinal contours are normal. No acute osseous abnormality is identified. No focal soft tissue abnormalities are seen. Multiple splenic granulomas are noted. Lines and tubes: There is a stable right subclavian central venous catheter. The tip terminates in the region of the superior vena cava. There is a stable left basilar chest tube. The endotracheal tube and feeding tube have been removed. IMPRESSION: 1. Improving aeration in the left lung base since the prior study. 2. Ongoing volume loss in the right lung base. 3. Interval removal of the endotracheal tube and feeding tube. Remaining right-sided subclavian central venous catheter and left-sided chest tube are grossly stable.
[2018-04-23] MEDS: ACETYLCYSTEINE 20% SOLN 800 MG/4 ML VIAL.NEB NEB SCH ×2 (08:36→20:12)
[2018-04-23] MEDS: TOBRAMYCIN SULFATE NEB 40 MG/ML 30 ML NEB SCH ×2 (08:37→20:12)
[2018-04-23] MEDS: DIGOXIN 0.25 MG TABLET PO SCH (09:44)
[2018-04-23] MEDS: ASPIRIN 81 MG TABLET, CHEWABLE PEG SCH (09:44)
[2018-04-23] MEDS: NORMAL SALINE 1000 ML 1,000 ML IV PRN (10:01)
--- NOTE | 2018-04-23 10:25 | PDOC PROGRESS REPORT ---
Subjective Progress Note for:: 04/23/18 Subjective:: The patient is currently extubated. Still somewhat tachypneic. Reason For Visit: ACUTE RESPIRATORY FAILURE WITH HYPOXIA Physical Exam Vital Signs: Temp Pulse Resp BP Pulse Ox 97.2 F 75 20 154/64 H 98 04/23/18 06:01 04/23/18 02:30 04/23/18 06:01 04/23/18 06:01 04/23/18 06:01 Intake & Output 04/22/18 04/23/18 04/24/18 06:59 06:59 06:59 Intake Total 2211 1150 Output Total 1710 2490 Balance 501 -1340 Weight 127.1 kg 125.8 kg General appearance: PRESENT: cooperative, mild distress, morbidly obese, well- developed Head exam: PRESENT: normocephalic - Very slow to formulate answers to questions. Eye exam: PRESENT: conjunctiva pale, other - Mild erythema along the palpebral margins. ABSENT: scleral icterus Ear exam: PRESENT: normal external ear exam Mouth exam: PRESENT: other - BiPAP mask in place Neck exam: PRESENT: other - Very large neck Respiratory exam: PRESENT: prolonged expiratory phas, rales - At the right base. Left lung is clear anteriorly., symmetrical, tachypnea, other - Chest tube on the left. ABSENT: wheezes Cardiovascular exam: PRESENT: irregular rhythm GI/Abdominal exam: PRESENT: distended - Protuberant abdomen. Not tympanitic., normal bowel sounds, soft. ABSENT: tenderness Rectal exam: PRESENT: deferred Gentrourinary exam: PRESENT: indwelling catheter Extremities exam: PRESENT: +2 edema - Upper extremities. ABSENT: pedal edema Neurological exam: PRESENT: alert, awake, oriented to person, oriented to place, oriented to situation, other - Inconsistent answers to questions so difficult to assess orientation. He does appear to be oriented to person, place and situa tion. He is talking to family. Psychiatric exam: PRESENT: anxious, appropriate affect. ABSENT: agitated Focused psych exam: ABSENT: delusional, restlessness Skin exam: PRESENT: other - Sporadic ecchymotic lesions on upper extremities. Results Laboratory Results: 04/23/18 03:33 04/23/18 03:33 04/22/18 04/22/18 04/23/18 11:30 13:30 03:33 WBC RBC Hgb Hct MCV MCH MCHC RDW Plt Count Seg Neutrophils % Lymphocytes % Monocytes % Eosinophils % Basophils % Absolute Neutrophils Absolute Lymphocytes Absolute Monocytes Absolute Eosinophils Absolute Basophils Carbonic Acid 1.36 H 1.38 H 1.10 HCO3/H2CO3 Ratio 21:1 20:1 23:1 ABG pH 7.42 7.41 7.47 H ABG pCO2 45.2 H 45.9 H 36.4 ABG pO2 123.1 H 67.1 L 66.8 L ABG HCO3 28.9 H 28.2 H 25.7 H ABG O2 Saturation 98.5 H 93.3 L 94.4 ABG Base Excess 4.0 3.0 2.0 FiO2 50% 40% 45% Sodium Potassium Chloride Carbon Dioxide Anion Gap BUN Creatinine Est GFR ( Amer) Est GFR (Non-Af Amer) Glucose Calcium Magnesium 04/23/18 04/23/18 03:33 03:33 WBC 5.5 RBC 3.47 L Hgb 9.4 L Hct 28.6 L MCV 82 MCH 26.9 L MCHC 32.7 RDW 22.1 H Plt Count 229 Seg Neutrophils % 88.5 H Lymphocytes % 5.8 L Monocytes % 5.3 Eosinophils % 0.0 Basophils % 0.4 Absolute Neutrophils 4.9 Absolute Lymphocytes 0.3 L Absolute Monocytes 0.3 Absolute Eosinophils 0.0 Absolute Basophils 0.0 Carbonic Acid HCO3/H2CO3 Ratio ABG pH ABG pCO2 ABG pO2 ABG HCO3 ABG O2 Saturation ABG Base Excess FiO2 Sodium 139.5 Potassium 4.2 Chloride 104 Carbon Dioxide 27 Anion Gap 9 BUN 18 Creatinine 0.62 Est GFR ( Amer) > 60 Est GFR (Non-Af Amer) > 60 Glucose 184 H Calcium 8.8 Magnesium 1.8 04/20/18 17:40 Bronchial Washings Gram Stain - Final 04/20/18 17:40 Bronchial Washings Bronchial Washings Culture - Final NO GROWTH 2 DAYS 04/08/18 04/08/18 04/09/18 21:58 21:58 04:15 Creatine Kinase < 20 L CK-MB (CK-2) Troponin I 0.038 NT-Pro-B Natriuret Pep 5370 H 04/09/18 04/09/18 04/09/18 04:15 10:44 10:44 Creatine Kinase < 20 L CK-MB (CK-2) 1.06 0.64 Troponin I 0.034 0.046 NT-Pro-B Natriuret Pep 04/09/18 04/09/18 04/14/18 15:50 15:50 04:28 Creatine Kinase 30 L CK-MB (CK-2) 0.45 Troponin I 0.050 NT-Pro-B Natriuret Pep 9830 H Impressions: Chest Ultrasound 04/13/18 09:30 IMPRESSION: No thoracentesis was performed. Chest X-Ray 04/23/18 06:00 IMPRESSION: 1. Improving aeration in the left lung base since the prior study. 2. Ongoing volume loss in the right lung base. 3. Interval removal of the endotracheal tube and feeding tube. Remaining right-sided subclavian central venous catheter and left-sided chest tube are grossly stable. Assessment & Plan - Diagnosis (1) Acute respiratory failure with hypoxia and hypercapnia Is this a current diagnosis for this admission?: Yes Plan: The patient has been extubated since yesterday. He remains on BiPAP continuously. Removing BiPAP for oral care because some respiratory distress. I have ordered speech therapy evaluation. He will need to be off of his BiPAP during that evaluation and we will see how he tolerates this. (2) Pneumonia Qualifiers: Pneumonia type: due to Pseudomonas Laterality: bilateral Lung location: lower lobe of lung Qualified Code(s): J15.1 - Pneumonia due to Pseudomonas Is this a current diagnosis for this admission?: Yes Plan: He completed a course of levofloxacin. He is still on nebulized tobramycin. His chest x-ray is significantly improved. (3) Left lower lobe atelectasis/plug Is this a current diagnosis for this admission?: Yes Plan: Still with left-sided chest tube. Left lung appears improved by chest x-ray and examination. He is also on nebulized acetylcysteine. (4) Atrial fibrillation with rapid ventricular response Is this a current diagnosis for this admission?: Yes Plan: Borderline bradycardia. Recent digoxin serum level was 1.39 which is well within the therapeutic range. He is also on metoprolol. If significant bradycardia persists consider decreasing digoxin. I would keep metoprolol at the current dose based on the patient's blood pressure. He is on aspirin therapy and subcutaneous heparin 5000 units 3 times a day. (5) Acute exacerbation of CHF (congestive heart failure) Qualifiers: Heart failure type: systolic Qualified Code(s): I50.23 - Acute on chronic systolic (congestive) heart failure Is this a current diagnosis for this admission?: Yes Plan: He finally had a net negative fluid balance yesterday. We will continue his current regimen. Monitor renal function and electrolytes with diuresis. I have also decreased his maintenance fluid. If speech therapy clears him for oral intake we will likely discontinue IV fluids. (6) Diabetes mellitus type 2 in obese Is this a current diagnosis for this admission?: Yes Plan: Continue to monitor fingersticks. We will need to adjust insulin dosing if the patient begins an oral diet. (7) COPD (chronic obstructive pulmonary disease) with emphysema Qualifiers: Emphysema type: centrilobular Qualified Code(s): J43.2 - Centrilobular e mphysema Is this a current diagnosis for this admission?: Yes Plan: Continue duo nebs 4 times a day with Xopenex available if needed. (8) Morbid obesity with alveolar hypoventilation Is this a current diagnosis for this admission?: Yes Plan: This will be one of the obstacles for improvement post extubation. His history of chronic obstructive pulmonary disease as well as his congestive heart failure will be contributors as well. - Time Time Spent with patient: 35 or more minutes Medications reviewed and adjusted accordingly: Yes
[2018-04-24] MEDS: INSULIN LISPRO 100 UNIT/ML 3 ML VIAL SUBCUT SCH ×4 (00:24→17:19)
[2018-04-24] MEDS: IPRATROPIUM/ALBUTEROL 0.5-2.5 MG/3 ML AMPUL NEB SCH ×4 (02:04→21:32)
[2018-04-24] MEDS: METOPROLOL TARTRATE PF/INJ 5 MG/5 ML SDV IV SCH ×6 (02:31→21:55)
[2018-04-24 04:50] LABS: ABSOLUTE EOSINOPHILS # (AUTO) 0.1 10^3/uL (0.0-0.6); ABSOLUTE LYMPHOCYTES (AUTO) 0.6 10^3/uL (0.5-4.7); ABSOLUTE MONOCYTES (AUTO) 0.6 10^3/uL (0.1-1.4); ABSOLUTE NEUT (AUTO) 5.1 10^3/uL (1.7-8.2); BASOPHILS % (AUTO) 0.8 % (0-2); EOSINOPHILS % (AUTO) 1.2 % (0-6); HEMATOCRIT 25.5 % (37.9-51.0); HEMOGLOBIN 8.4 g/dL (13.5-17.0); LYMPHOCYTES % (AUTO) 9.5 % (13-45); MEAN CORPUSCULAR HEMOGLOBIN 27.4 pg (27.0-33.4); MEAN CORPUSCULAR VOLUME 83 fl (80-97); MONOCYTES % (AUTO) 9.3 % (3-13); PLATELET COUNT 197 10^3/uL (150-450); RED BLOOD COUNT 3.06 10^6/uL (4.35-5.55); RED CELL DISTRIBUTION WIDTH 22.9 % (11.5-14.0); SEGMENTED NEUTROPHILS % (AUTO) 79.2 % (42-78); TOTAL CELLS COUNTED % (AUTO) 100 %; WHITE BLOOD COUNT 6.5 10^3/uL (4.0-10.5)
[2018-04-24 05:11] LABS: ALBUMIN 2.5 g/dL (3.5-5.0); ANION GAP 6 (5-19); BLOOD UREA NITROGEN 19 mg/dL (7-20); CALCIUM 8.1 mg/dL (8.4-10.2); CARBON DIOXIDE 29 mmol/L (22-30); CHLORIDE 102 mmol/L (98-107); GLUCOSE 117 mg/dL (75-110); PHOSPHORUS 3.9 mg/dL (2.5-4.5); POTASSIUM 3.5 mmol/L (3.6-5.0); SODIUM 137.3 mmol/L (137-145)
[2018-04-24 05:34] LABS: ARTERIAL BLOOD BASE EXCESS 3.4 mmol/L; ARTERIAL BLOOD H2CO3 1.23 mmol/L (1.05-1.35); ARTERIAL BLOOD HCO3 27.7 mmol/L (20-24); ARTERIAL BLOOD O2 SATURATION 97.9 % (94-98); ARTERIAL BLOOD PCO2 40.8 mmHg (35-45); ARTERIAL BLOOD PH 7.45 (7.35-7.45); ARTERIAL BLOOD PO2 102.8 mmHg (80-100)
[2018-04-24 05:38] LABS: ARTERIAL BLOOD FIO2 40%
[2018-04-24] MEDS: METOPROLOL TARTRATE 25 MG TABLET PO SCH ×2 (06:01→18:20)
[2018-04-24] MEDS: HEPARIN SOD (PORCINE) 5,000 UNIT/ML 1 ML SYRINGE SUBCUT SCH ×3 (06:20→21:55)
[2018-04-24] MEDS: NORMAL SALINE 1000 ML 1,000 ML IV PRN (07:04)
[2018-04-24] MEDS: ACETYLCYSTEINE 20% SOLN 800 MG/4 ML VIAL.NEB NEB SCH ×2 (08:21→21:32)
[2018-04-24] MEDS: TOBRAMYCIN SULFATE NEB 40 MG/ML 30 ML NEB SCH ×2 (08:22→21:32)
[2018-04-24] MEDS: ASPIRIN 81 MG TABLET, CHEWABLE PEG SCH (09:16)
[2018-04-24] MEDS: DIGOXIN 0.25 MG TABLET PO SCH (09:26)
[2018-04-24] MEDS ORDERED: FUROSEMIDE INJ/PF 40 MG/4 ML SDV IV ONE (11:01)
--- NOTE | 2018-04-24 13:34 | RADIOLOGY REPORT (SQ) ---
EXAM DESCRIPTION: CHEST SINGLE VIEW COMPLETED DATE/TIME: 04/24/2018 7:32 am REASON FOR STUDY: PNA COMPARISON: 04/23/2018 NUMBER OF VIEWS: One view. TECHNIQUE: Single frontal radiographic image of the chest acquired. LIMITATIONS: None. FINDINGS: LUNGS AND PLEURA: Stable appearance. Low lung volumes. No pneumothorax. MEDIASTINUM AND HEART: Stable heart size and mediastinal structures. SUPPORT DEVICES: Appropriate location without change. BONY STRUCTURES: No acute findings. HARDWARE: None. OTHER: No other significant finding. IMPRESSION: No significant change. No pneumothorax. Reading location - IP/workstation name: [email or web address]
--- NOTE | 2018-04-24 14:06 | PDOC PROGRESS REPORT ---
Subjective Progress Note for:: 04/24/18 Subjective:: The patient is resting comfortably. He is on BiPAP this morning. He makes eye contact and answers questions. He appears comfortable. Reason For Visit: ACUTE RESPIRATORY FAILURE WITH HYPOXIA Acute on chronic congestive heart failure Atrial fibrillation Physical Exam Vital Signs: Temp Pulse Resp BP Pulse Ox 97.5 F 67 19 141/86 H 95 04/24/18 08:00 04/24/18 08:00 04/24/18 08:00 04/24/18 08:00 04/24/18 08:00 Intake & Output 04/23/18 04/24/18 04/25/18 06:59 06:59 07:59 Intake Total 1150 Output Total 2490 1195 75 Balance -1340 -1195 -75 Weight 125.8 kg 126.4 kg General appearance: PRESENT: no acute distress, morbidly obese, well-developed Head exam: PRESENT: atraumatic, normocephalic Eye exam: PRESENT: conjunctiva pale. ABSENT: scleral icterus Ear exam: PRESENT: normal external ear exam Mouth exam: PRESENT: other - Endotracheal tube is out Neck exam: PRESENT: other - Nasogastric tube is out. Redundant skin from his very large neck. Respiratory exam: PRESENT: clear to auscultation ernesto, decreased breath sounds - At the left base. Body habitus also makes auscultation difficult., symmetrical. ABSENT: rales, wheezes Cardiovascular exam: PRESENT: RRR - Appears to be regular rate and rhythm with occasional irregular beats., +S1, +S2, other - Soft heart sounds due to body habitus Pulses: PRESENT: normal dorsalis pedis pul GI/Abdominal exam: PRESENT: distended - Protuberant abdomen, normal bowel sounds, soft. ABSENT: tenderness Rectal exam: PRESENT: deferred Gentrourinary exam: PRESENT: indwelling catheter Extremities exam: PRESENT: +2 edema - arms. ABSENT: calf tenderness, pedal edema Musculoskeletal exam: ABSENT: ambulatory Neurological exam: PRESENT: alert, awake, oriented to person, oriented to place, oriented to situation - He does appear to be oriented to his situation. Psychiatric exam: PRESENT: anxious - He appears to be slightly anxious., appropriate affect. ABSENT: agitated Focused psych exam: ABSENT: delusional, restlessness Skin exam: PRESENT: other - Sporadic ecchymotic lesions upper extremities. Results Laboratory Results: 04/24/18 04:39 04/24/18 04:39 04/24/18 04/24/18 04/24/18 04:39 04:39 04:39 WBC 6.5 RBC 3.06 L Hgb 8.4 L Hct 25.5 L MCV 83 MCH 27.4 MCHC 33.0 RDW 22.9 H Plt Count 197 Seg Neutrophils % 79.2 H Lymphocytes % 9.5 L Monocytes % 9.3 Eosinophils % 1.2 Basophils % 0.8 Absolute Neutrophils 5.1 Absolute Lymphocytes 0.6 Absolute Monocytes 0.6 Absolute Eosinophils 0.1 Absolute Basophils 0.0 Carbonic Acid HCO3/H2CO3 Ratio ABG pH ABG pCO2 ABG pO2 ABG HCO3 ABG O2 Saturation ABG Base Excess FiO2 Sodium 137.3 Cancelled Potassium 3.5 L Cancelled Chloride 102 Cancelled Carbon Dioxide 29 Cancelled Anion Gap 6 Cancelled BUN 19 Cancelled Creatinine 0.67 Cancelled Est GFR ( Amer) > 60 Cancelled Est GFR (Non-Af Amer) > 60 Cancelled Glucose 117 H Cancelled Calcium 8.1 L Cancelled Phosphorus 3.9 Cancelled Magnesium 1.7 Albumin 2.5 L Cancelled 04/24/18 04:55 WBC RBC Hgb Hct MCV MCH MCHC RDW Plt Count Seg Neutrophils % Lymphocytes % Monocytes % Eosinophils % Basophils % Absolute Neutrophils Absolute Lymphocytes Absolute Monocytes Absolute Eosinophils Absolute Basophils Carbonic Acid 1.23 HCO3/H2CO3 Ratio 22:1 ABG pH 7.45 ABG pCO2 40.8 ABG pO2 102.8 H ABG HCO3 27.7 H ABG O2 Saturation 97.9 ABG Base Excess 3.4 FiO2 40% Sodium Potassium Chloride Carbon Dioxide Anion Gap BUN Creatinine Est GFR ( Amer) Est GFR (Non-Af Amer) Glucose Calcium Phosphorus Magnesium Albumin 04/08/18 04/08/18 04/09/18 21:58 21:58 04:15 Creatine Kinase < 20 L CK-MB (CK-2) Troponin I 0.038 NT-Pro-B Natriuret Pep 5370 H 04/09/18 04/09/18 04/09/18 04:15 10:44 10:44 Creatine Kinase < 20 L CK-MB (CK-2) 1.06 0.64 Troponin I 0.034 0.046 NT-Pro-B Natriuret Pep 0204/09/18 04/14/18 15:50 15:50 04:28 Creatine Kinase 30 L CK-MB (CK-2) 0.45 Troponin I 0.050 NT-Pro-B Natriuret Pep 9830 H Impressions: Chest Ultrasound 04/13/18 09:30 IMPRESSION: No thoracentesis was performed. Assessment & Plan - Diagnosis (1) Acute respiratory failure with hypoxia and hypercapnia Is this a current diagnosis for this admission?: Yes Plan: Please also see pulmonology note. The patient continues on BiPAP status post extubation. We will try and wean from BiPAP. At this time the patient's requests reintubation, which will end up with tracheostomy and PEG tube, if he requires reintubation. (2) Pneumonia Qualifiers: Pneumonia type: due to Pseudomonas Laterality: bilateral Lung location: lower lobe of lung Qualified Code(s): J15.1 - Pneumonia due to Pseudomonas Is this a current diagnosis for this admission?: Yes Plan: He completed a course of levofloxacin. He is still on nebulized tobramycin. His chest x-ray is significantly improved. White blood cell count is normal. (3) Left lower lobe atelectasis/plug Is this a current diagnosis for this admission?: Yes Plan: Chest x-ray improved. Aeration improved after 2 bronchoscopy has. Still with left-sided chest tube. Output has been 85 mL over the last 24 hours. (4) Atrial fibrillation with rapid ventricular response Is this a current diagnosis for this admission?: Yes Plan: Irregular rhythm. With his nasogastric tube out we are giving medications intravenously when possible. I have ordered a speech therapy consult. We will have to see the patient's bedside swallow evaluation as well as we need to ad health professional his medications. (We may need to put a nasogastric tube back in place for medication administration and nutrition.) Rate has been well controlled. Currently on subcutaneous DVT prophylaxis. No full anticoagulation as yet. Hemoglobin is decreased today. We will monitor for evidence of bleeding. (5) Acute exacerbation of CHF (congestive heart failure) Qualifiers: Heart failure type: systolic Qualified Code(s): I50.23 - Acute on chronic systolic (congestive) heart failure Is this a current diagnosis for this admission?: Yes Plan: I reinstituted furosemide today. His fluid balance has been negative but his blood pressures have been elevated. He was on Lasix prior to this admission. He has borderline hypokalemia and is already receiving potassium. We may need to increase the potassium administration. If in fact his swallow is not deemed safe then we will administer potassium through his IV. (6) Diabetes mellitus type 2 in obese Is this a current diagnosis for this admission?: Yes Plan: Continue current regimen. Accu-Cheks are consistently below 200. If he is unable to establish an oral diet we may need to reinsert a nasogastric tube, reinitiate tube feeds and modify his insulin regimen. (7) COPD (chronic obstructive pulmonary disease) with emphysema Qualifiers: Emphysema type: centrilobular Qualified Code(s): J43.2 - Centrilobular emphysema Is this a current diagnosis for this admission?: Yes Plan: Continue current nebulizer regimen, oxygen supplementation and try to wean from BiPAP. (8) Morbid obesity with alveolar hypoventilation Is this a current diagnosis for this admission?: Yes Plan: Definitely will be an obstacle to wean from BiPAP. - Time Time Spent with patient: 35 or more minutes Medications reviewed and adjusted accordingly: Yes
[2018-04-24] MEDS: FUROSEMIDE INJ/PF 20 MG/2 ML SDV IV SCH (21:54)
[2018-04-25] MEDS: INSULIN LISPRO 100 UNIT/ML 3 ML VIAL SUBCUT SCH ×4 (00:20→19:05)
[2018-04-25] MEDS: METOPROLOL TARTRATE PF/INJ 5 MG/5 ML SDV IV SCH ×3 (01:43→11:50)
[2018-04-25] MEDS: IPRATROPIUM/ALBUTEROL 0.5-2.5 MG/3 ML AMPUL NEB SCH ×4 (03:29→21:11)
[2018-04-25] MEDS: NORMAL SALINE 1000 ML 1,000 ML IV PRN (04:07)
[2018-04-25 04:31] LABS: ABSOLUTE BASOPHILS # (AUTO) 0.1 10^3/uL (0.0-0.2); ABSOLUTE EOSINOPHILS # (AUTO) 0.1 10^3/uL (0.0-0.6); ABSOLUTE LYMPHOCYTES (AUTO) 0.5 10^3/uL (0.5-4.7); ABSOLUTE MONOCYTES (AUTO) 0.9 10^3/uL (0.1-1.4); ABSOLUTE NEUT (AUTO) 7.6 10^3/uL (1.7-8.2); BASOPHILS % (AUTO) 1.1 % (0-2); EOSINOPHILS % (AUTO) 1.3 % (0-6); HEMATOCRIT 28.3 % (37.9-51.0); HEMOGLOBIN 9.4 g/dL (13.5-17.0); LYMPHOCYTES % (AUTO) 5.8 % (13-45); MEAN CORPUSCULAR HEMOGLOBIN 27.6 pg (27.0-33.4); MEAN CORPUSCULAR HGB CONC 33.2 g/dL (32.0-36.0); MEAN CORPUSCULAR VOLUME 83 fl (80-97); MONOCYTES % (AUTO) 9.3 % (3-13); PLATELET COUNT 222 10^3/uL (150-450); RED BLOOD COUNT 3.41 10^6/uL (4.35-5.55); RED CELL DISTRIBUTION WIDTH 21.9 % (11.5-14.0); SEGMENTED NEUTROPHILS % (AUTO) 82.5 % (42-78); TOTAL CELLS COUNTED % (AUTO) 100 %; WHITE BLOOD COUNT 9.2 10^3/uL (4.0-10.5)
[2018-04-25 05:02] LABS: BLOOD UREA NITROGEN 18 mg/dL (7-20); CALCIUM 8.2 mg/dL (8.4-10.2); GLUCOSE 122 mg/dL (75-110)
[2018-04-25 05:03] LABS: ANION GAP 9 (5-19); CARBON DIOXIDE 29 mmol/L (22-30); CHLORIDE 100 mmol/L (98-107); POTASSIUM 3.4 mmol/L (3.6-5.0); SODIUM 137.9 mmol/L (137-145)
[2018-04-25 05:25] LABS: ARTERIAL BLOOD BASE EXCESS 4.1 mmol/L; ARTERIAL BLOOD H2CO3 1.41 mmol/L (1.05-1.35); ARTERIAL BLOOD HCO3 29.2 mmol/L (20-24); ARTERIAL BLOOD O2 SATURATION 98.4 % (94-98); ARTERIAL BLOOD PCO2 46.8 mmHg (35-45); ARTERIAL BLOOD PH 7.41 (7.35-7.45); ARTERIAL BLOOD TOTAL CO2 30.6 mmol/L (23-27)
[2018-04-25 05:28] LABS: ARTERIAL BLOOD FIO2 40%
[2018-04-25] MEDS: METOPROLOL TARTRATE 25 MG TABLET PO SCH ×2 (06:00→22:21)
[2018-04-25] MEDS: HEPARIN SOD (PORCINE) 5,000 UNIT/ML 1 ML SYRINGE SUBCUT SCH ×3 (06:00→22:21)
[2018-04-25] MEDS: HYDRALAZINE HCL INJ/PF 20 MG/1 ML SDV IV PRN (07:19)
[2018-04-25] MEDS: ACETYLCYSTEINE 20% SOLN 800 MG/4 ML VIAL.NEB NEB SCH ×2 (08:49→21:11)
[2018-04-25] MEDS: TOBRAMYCIN SULFATE NEB 40 MG/ML 30 ML NEB SCH ×2 (08:49→21:11)
--- NOTE | 2018-04-25 09:08 | Progress Note ---
Provider Note Provider Note: Events noted. Patient is s/p left chest tube placement 04/14/18 for pleural effusion; current CT output is < 50 mL/day for the past 2 days. A/ S/P Left chest tube Minimal output/day P/ Remove CT today follow up chest Xray
--- NOTE | 2018-04-25 09:17 | PDOC PROGRESS REPORT ---
Subjective Progress Note for:: 04/25/18 Subjective:: The patient opens his eyes and responds to verbal stimulus. He falls right back asleep. He has tachypnea but comfortable. Reason For Visit: ACUTE RESPIRATORY FAILURE WITH HYPOXIA Physical Exam Vital Signs: Temp Pulse Resp BP Pulse Ox 97.9 F 60 21 H 170/70 H 98 04/25/18 07:02 04/25/18 03:00 04/25/18 07:02 04/25/18 07:02 04/25/18 07:02 Intake & Output 04/24/18 04/25/18 04/26/18 05:59 06:59 06:59 Intake Total Output Total Balance Weight General appearance: PRESENT: cooperative - When awake which is intermittent, mild distress, morbidly obese, well-developed Head exam: PRESENT: normocephalic Eye exam: PRESENT: conjunctival injection, conjunctiva pale, other - Palpebral margins still slightly erythematous Ear exam: PRESENT: normal external ear exam Mouth exam: PRESENT: moist, tongue midline Neck exam: PRESENT: other - Extremely large neck. Difficult to assess. Skin irritation under the inferior most skin fold. ABSENT: carotid bruit, JVD, lymphadenopathy Respiratory exam: PRESENT: clear to auscultation ernesto - Anteriorly, decreased breath sounds - Possibly due to body habitus, tachypnea, other - Chest tube on the left with serosanguineous drainage. ABSENT: accessory muscle use, retraction, wheezes Cardiovascular exam: PRESENT: RRR, +S1, +S2, systolic murmur - 2/6 Pulses: PRESENT: +1 pedal pulses bilateral GI/Abdominal exam: PRESENT: distended - Very protuberant abdomen, normal bowel sounds, soft. ABSENT: tenderness Rectal exam: PRESENT: deferred Gentrourinary exam: PRESENT: indwelling catheter Extremities exam: ABSENT: pedal edema Musculoskeletal exam: ABSENT: ambulatory Neurological exam: PRESENT: awake - Intermittently, oriented to person, oriented to place. ABSENT: motor sensory deficit Psychiatric exam: PRESENT: flat affect. ABSENT: agitated, anxious Skin exam: PRESENT: other - Occasional ecchymosis upper extremities. Results Laboratory Results: 04/25/18 04:13 04/25/18 04:13 04/25/18 04/25/18 04/25/18 04:13 04:13 04:47 WBC 9.2 RBC 3.41 L Hgb 9.4 L Hct 28.3 L MCV 83 MCH 27.6 MCHC 33.2 RDW 21.9 H Plt Count 222 Seg Neutrophils % 82.5 H Lymphocytes % 5.8 L Monocytes % 9.3 Eosinophils % 1.3 Basophils % 1.1 Absolute Neutrophils 7.6 Absolute Lymphocytes 0.5 Absolute Monocytes 0.9 Absolute Eosinophils 0.1 Absolute Basophils 0.1 Carbonic Acid 1.41 H HCO3/H2CO3 Ratio 20:1 ABG pH 7.41 ABG pCO2 46.8 H ABG pO2 122.0 H ABG HCO3 29.2 H ABG O2 Saturation 98.4 H ABG Base Excess 4.1 FiO2 40% Sodium 137.9 Potassium 3.4 L Chloride 100 Carbon Dioxide 29 Anion Gap 9 BUN 18 Creatinine 0.53 Est GFR ( Amer) > 60 Est GFR (Non-Af Amer) > 60 Glucose 122 H Calcium 8.2 L Magnesium 1.6 04/08/18 04/08/18 04/09/18 21:58 21:58 04:15 Creatine Kinase < 20 L CK-MB (CK-2) Troponin I 0.038 NT-Pro-B Natriuret Pep 5370 H 04/09/18 04/09/18 04/09/18 04:15 10:44 10:44 Creatine Kinase < 20 L CK-MB (CK-2) 1.06 0.64 Troponin I 0.034 0.046 NT-Pro-B Natriuret Pep 04/09/18 04/09/18 04/14/18 15:50 15:50 04:28 Creatine Kinase 30 L CK-MB (CK-2) 0.45 Troponin I 0.050 NT-Pro-B Natriuret Pep 9830 H Impressions: Chest Ultrasound 04/13/18 09:30 IMPRESSION: No thoracentesis was performed. Assessment & Plan - Diagnosis (1) Acute respiratory failure with hypoxia and hypercapnia Is this a current diagnosis for this admission?: Yes Plan: The patient is still tachypneic on BiPAP. I do not believe he has been able to be off of the BiPAP for any significant amount of time. His blood gas has been stable however. His inspiratory pressure is 20 and expiratory is 8. FiO2 has been 40%. Continue to attempt weaning from BiPAP. (2) Pneumonia Qualifiers: Pneumonia type: due to Pseudomonas Laterality: bilateral Lung location: lower lobe of lung Qualified Code(s): J15.1 - Pneumonia due to Pseudomonas Is this a current diagnosis for this admission?: Yes Plan: Antibiotic therapy has been completed. The patient is still on nebulized tobramycin. I believe this can be discontinued soon. I will defer that decision to pulmonology. (3) Left lower lobe atelectasis/plug Is this a current diagnosis for this admission?: Yes Plan: The patient did have significant mucus plugging requiring 2 bronchoscopies. At this time his lung remains well-expanded. His chest tube will likely be discontinued today. (4) Atrial fibrillation with rapid ventricular response Is this a current diagnosis for this admission?: Yes Plan: He seems to have a regular underlying rhythm with multiple ectopic beats. Rate is well controlled. He did have bloody secretions with bronchoscopy. There is still serosanguineous drainage from the chest tube. He is on heparin 5000 units every 8 hours but at this time full anticoagulation might be premature. (5) Acute exacerbation of CHF (congestive heart failure) Qualifiers: Heart failure type: systolic Qualified Code(s): I50.23 - Acute on chronic systolic (congestive) heart failure Is this a current diagnosis for this admission?: Yes Plan: He has remained in an excellent negative fluid balance. His inability to wean from BiPAP is likely a combination of his morbid obesity, poor cardiac function and significant deconditioning from his critical illness. We will continue to attempt negative fluid balance. (6) Diabetes mellitus type 2 in obese Is this a current diagnosis for this admission?: Yes Plan: Reasonable glucose control. He is currently off of tube feeds. He has failed bedside swallow daily for several days. With his deconditioning this is not surprising. We will reinsert his nasogastric tube for continuing nutrition as well as consistency of medication administration. Once he passes his swallow evaluation we will discontinue the nasogastric tube. (7) COPD (chronic obstructive pulmonary disease) with emphysema Qualifiers: Emphysema type: centrilobular Qualified Code(s): J43.2 - Centrilobular emphysema Is this a current diagnosis for this admission?: Yes Plan: Continue nebulizer treatments and BiPAP at this time. (8) Dysphagia Qualifiers: Dysphagia type: unspecified Qualified Code(s): R13.10 - Dysphagia, unsp ecified Is this a current diagnosis for this admission?: Yes Plan: Patient has failed the bedside swallow exam multiple times. I want to avoid prolonged interruption of nutrition as well as provide consistency of medications. We will therefore reinserted the nasogastric tube and once he passes a swallow exam and consistently swallows safely we will discontinue the nasogastric tube. (9) Critical illness myopathy Is this a current diagnosis for this admission?: Yes Plan: The patient has been critically ill for over 2 weeks. Goal is physical therapy to begin assessment and treatment. At this time it is most likely unsafe for him to get out of bed but we will try and sit him in upright position for his swallow study. He will likely need an intermediary facility before going home (10) Morbid obesity with alveolar hypoventilation Is this a current diagnosis for this admission?: Yes Plan: Definitely an obstacle for BiPAP weaning. At this time weight loss is not a consideration due to his critical illness. (11) Conjunctivitis Qualifiers: Conjunctivitis type: blepharoconjunctivitis Laterality: bilateral Is this a current diagnosis for this admission?: Yes Plan: The patient has exhibited injected conjunctiva and eyelid margins. I will begin Ilotycin ointment twice a day. - Time Time Spent with patient: 35 or more minutes Medications reviewed and adjusted accordingly: Yes
--- NOTE | 2018-04-25 09:41 | RADIOLOGY REPORT (SQ) ---
EXAM DESCRIPTION: CHEST SINGLE VIEW COMPLETED DATE/TIME: 04/25/2018 6:51 am REASON FOR STUDY: pneumonia COMPARISON: 04/24/2018 NUMBER OF VIEWS: One view. TECHNIQUE: Single frontal radiographic image of the chest acquired. LIMITATIONS: None. FINDINGS: LUNGS AND PLEURA: Right lower lobe airspace disease. Small right pleural effusion. No pn eumothorax. Pleural effusion. No pneumothorax. MEDIASTINUM AND HEART: Stable heart size and mediastinal structures. SUPPORT DEVICES: Appropriate location without change. BONY STRUCTURES: No acute findings. HARDWARE: None. OTHER: No other significant finding. IMPRESSION: Right lower lobe atelectasis or pneumonia. No pneumothorax. Reading location - IP/workstation name: [email or web address]
--- NOTE | 2018-04-25 09:46 | RADIOLOGY REPORT (SQ) ---
EXAM DESCRIPTION: CHEST SINGLE VIEW COMPLETED DATE/TIME: 04/25/2018 9:33 am REASON FOR STUDY: s/p left chest tube removal COMPARISON: Earlier same day. NUMBER OF VIEWS: One view. TECHNIQUE: Single frontal radiographic image of the chest acquired. LIMITATIONS: None. FINDINGS: LUNGS AND PLEURA: Stable appearance. No pneumothorax. MEDIASTINUM AND HILAR STRUCTURES: Stable heart size and mediastinal structures. HEART AND VASCULAR STRUCTURES: Stable appearance. SUPPORT DEVICES: Interval removal of left chest tube. BONES: No acute findings. OTHER: No other significant finding. IMPRESSION: Interval removal of left chest tube. No pneumothorax. TECHNICAL DOCUMENTATION: JOB ID: [id number] [employer]- All Rights Reserved Reading location - IP/workstation name: [email or web address]
[2018-04-25] MEDS ORDERED: DIGOXIN INJ 0.5 MG/2 ML AMPULE IV SCH (10:00)
[2018-04-25] MEDS ORDERED: DIGOXIN 0.25 MG TABLET PO SCH (10:01)
[2018-04-25] MEDS ORDERED: METOPROLOL TARTRATE PF/INJ 5 MG/5 ML SDV IV PRN (10:03)
[2018-04-25] MEDS: ASPIRIN 81 MG TABLET, CHEWABLE PEG SCH (11:50)
[2018-04-25] MEDS: DIGOXIN 0.25 MG TABLET PO SCH (11:50)
[2018-04-25] MEDS ORDERED: OXYCODONE HCL IR 5 MG TABLET ONE (12:07)
[2018-04-25] MEDS ORDERED: ACETAMINOPHEN 325 MG TABLET PO PRN (12:08)
[2018-04-25] MEDS: FUROSEMIDE INJ/PF 20 MG/2 ML SDV IV SCH ×2 (12:13→22:21)
[2018-04-25] MEDS: ERYTHROMYCIN 0.5% OPH OINTMENT 3.5 GM TUBE OU SCH ×2 (12:13→19:07)
[2018-04-25] MEDS: DIGOXIN 0.125 MG TABLET PO SCH (12:14)
[2018-04-25] MEDS: ASPIRIN 81 MG TABLET, CHEWABLE PO SCH (12:14)
[2018-04-25] MEDS: OXYCODONE HCL IR 5 MG TABLET PO PRN (19:06)
[2018-04-26] MEDS: INSULIN LISPRO 100 UNIT/ML 3 ML VIAL SUBCUT SCH ×5 (00:42→21:35)
[2018-04-26] MEDS: IPRATROPIUM/ALBUTEROL 0.5-2.5 MG/3 ML AMPUL NEB SCH ×4 (02:05→20:49)
[2018-04-26] MEDS: HEPARIN SOD (PORCINE) 5,000 UNIT/ML 1 ML SYRINGE SUBCUT SCH ×3 (05:41→21:35)
--- NOTE | 2018-04-26 08:28 | RADIOLOGY REPORT (SQ) ---
EXAM DESCRIPTION: CHEST SINGLE VIEW COMPLETED DATE/TIME: 04/26/2018 8:16 am REASON FOR STUDY: Respiratory failure, CHF, pneumonia COMPARISON: 04/25/2018. FINDINGS: Single-view chest AP portable upright timed approximately 0746 hours in PACs. Stable appearance right central line. Low lung volumes with diminished basilar aeration bilaterally. No change. TECHNICAL DOCUMENTATION: JOB ID: [id number] Reading location - IP/workstation name: [email or web address]-
[2018-04-26] MEDS: TOBRAMYCIN SULFATE NEB 40 MG/ML 30 ML NEB SCH (08:48)
[2018-04-26] MEDS: ACETYLCYSTEINE 20% SOLN 800 MG/4 ML VIAL.NEB NEB SCH ×2 (08:51→20:49)
[2018-04-26] MEDS: METOPROLOL TARTRATE 25 MG TABLET PO SCH ×2 (10:13→21:34)
[2018-04-26] MEDS: ASPIRIN 81 MG TABLET, CHEWABLE PO SCH (10:13)
[2018-04-26] MEDS: DIGOXIN 0.125 MG TABLET PO SCH (10:13)
[2018-04-26] MEDS: OXYCODONE HCL IR 5 MG TABLET PO PRN (10:13)
[2018-04-26] MEDS: FUROSEMIDE INJ/PF 20 MG/2 ML SDV IV SCH ×2 (10:14→21:34)
[2018-04-26] MEDS: ERYTHROMYCIN 0.5% OPH OINTMENT 3.5 GM TUBE OU SCH ×2 (10:21→17:37)
[2018-04-26] MEDS ORDERED: MAGNESIUM OXIDE 400 MG TABLET PO ONE (15:00)
--- NOTE | 2018-04-26 16:02 | PDOC PROGRESS REPORT ---
Subjective Progress Note for:: 04/22/18 Subjective:: e to b Reason For Visit: ACUTE RESPIRATORY FAILURE WITH HYPOXIA Physical Exam Vital Signs: Temp Pulse Resp BP Pulse Ox 98.6 F 74 18 135/65 H 96 04/22/18 08:00 04/22/18 08:20 04/22/18 08:20 04/22/18 08:00 04/22/18 08:20 Intake & Output 04/21/18 04/22/18 04/23/18 06:59 06:59 06:59 Intake Total 3695 2211 Output Total 1510 1710 165 Balance 2185 501 -165 Weight 127.9 kg 127.1 kg General appearance: PRESENT: no acute distress, disheveled, morbidly obese Head exam: PRESENT: atraumatic, normocephalic Eye exam: PRESENT: conjunctiva pale, EOMI. ABSENT: nystagmus, periorbital swelling, scleral icterus Mouth exam: PRESENT: dry mucosa, neck supple, tongue midline, other Neck exam: ABSENT: carotid bruit, full ROM, JVD, lymphadenopathy, meningismus, tenderness, thyromegaly, tracheal deviation, tracheostomy, other Respiratory exam: PRESENT: decreased breath sounds, prolonged expiratory phas, rales, rhonchi, unlabored. ABSENT: retraction, stridor Cardiovascular exam: PRESENT: irregular rhythm Pulses: PRESENT: normal radial pulses GI/Abdominal exam: PRESENT: soft. ABSENT: tenderness Gentrourinary exam: PRESENT: indwelling catheter Extremities exam: ABSENT: calf tenderness, clubbing, joint swelling, pedal edema Musculoskeletal exam: ABSENT: deformity, dislocation Neurological exam: ABSENT: awake Skin exam: PRESENT: dry, warm Results Laboratory Results: 04/22/18 04:45 04/22/18 04:45 04/22/18 04/22/18 04/22/18 04:45 04:45 04:45 WBC 6.6 RBC 3.06 L Hgb 8.3 L Hct 25.4 L MCV 83 MCH 27.1 MCHC 32.7 RDW 22.0 H Plt Count 191 Seg Neutrophils % 79.9 H Lymphocytes % 8.8 L Monocytes % 8.8 Eosinophils % 1.4 Basophils % 1.1 Absolute Neutrophils 5.3 Absolute Lymphocytes 0.6 Absolute Monocytes 0.6 Absolute Eosinophils 0.1 Absolute Basophils 0.1 Carbonic Acid 1.19 HCO3/H2CO3 Ratio 22:1 ABG pH 7.45 ABG pCO2 39.5 ABG pO2 94.6 ABG HCO3 26.8 H ABG O2 Saturation 97.5 ABG Base Excess 2.7 FiO2 40% Sodium 139.6 Potassium 3.9 Chloride 106 Carbon Dioxide 29 Anion Gap 5 BUN 16 Creatinine 0.60 Est GFR ( Amer) > 60 Est GFR (Non-Af Amer) > 60 Glucose 142 H Calcium 8.3 L Phosphorus 3.6 Magnesium 1.7 04/14/18 11:50 Chest Tube Fluid Fungal Smear - Final 04/14/18 11:50 Chest Tube Fluid Fungal Smear - Final 04/08/18 04/08/18 04/09/18 21:58 21:58 04:15 Creatine Kinase < 20 L CK-MB (CK-2) Troponin I 0.038 NT-Pro-B Natriuret Pep 5370 H 04/09/18 04/09/18 04/09/18 04:15 10:44 10:44 Creatine Kinase < 20 L CK-MB (CK-2) 1.06 0.64 Troponin I 0.034 0.046 NT-Pro-B Natriuret Pep 04/09/18 04/09/18 04/14/18 15:50 15:50 04:28 Creatine Kinase 30 L CK-MB (CK-2) 0.45 Troponin I 0.050 NT-Pro-B Natriuret Pep 9830 H Impressions: Chest Ultrasound 04/13/18 09:30 IMPRESSION: No thoracentesis was performed. Assessment & Plan - Diagnosis (1) Acute respiratory failure with hypoxia and hypercapnia Is this a current diagnosis for this admission?: Yes Plan: We will attempt to extubate to BiPAP (2) Atrial fibrillation with rapid ventricular response Is this a current diagnosis for this admission?: Yes Plan: Fairly well controlled at this time (3) COPD (chronic obstructive pulmonary disease) Qualifiers: Emphysema type: unspecified Is this a current diagnosis for this admission?: Yes Plan: Continue current bronchodilator therapy (4) Morbid obesity Is this a current diagnosis for this admission?: Yes Plan: nutritional consult - Time Total Critical Time (Minutes): 55
--- NOTE | 2018-04-26 16:04 | PDOC PROGRESS REPORT ---
Subjective Progress Note for:: 04/18/18 Subjective:: Intubated and sedated Reason For Visit: ACUTE RESPIRATORY FAILURE WITH HYPOXIA Physical Exam Vital Signs: Temp Pulse Resp BP Pulse Ox 97.7 F 73 14 149/53 H 92 04/18/18 10:00 04/18/18 10:00 04/18/18 10:00 04/18/18 10:00 04/18/18 10:00 Intake & Output 04/17/18 04/18/18 04/19/18 06:59 06:59 06:59 Intake Total 2724 1200 Output Total 1305 2575 500 Balance 1419 -1375 -500 Weight 127.2 kg 125.6 kg General appearance: PRESENT: no acute distress, morbidly obese. ABSENT: cooperative, disheveled Head exam: PRESENT: atraumatic, normocephalic Eye exam: PRESENT: conjunctiva pale. ABSENT: EOMI, nystagmus, periorbital swelling Mouth exam: PRESENT: dry mucosa, neck supple, tongue midline, other - ET tube Neck exam: ABSENT: carotid bruit, JVD, lymphadenopathy, thyromegaly, tracheal deviation, tracheostomy Respiratory exam: PRESENT: decreased breath sounds, prolonged expiratory phas, rales, rhonchi, unlabored. ABSENT: retraction, stridor Cardiovascular exam: PRESENT: irregular rhythm Pulses: PRESENT: normal radial pulses GI/Abdominal exam: PRESENT: soft. ABSENT: tenderness Gentrourinary exam: PRESENT: indwelling catheter Extremities exam: PRESENT: pedal edema. ABSENT: calf tenderness, clubbing, joint swelling Musculoskeletal exam: ABSENT: deformity, dislocation Neurological exam: ABSENT: awake Skin exam: PRESENT: dry, warm Results Laboratory Results: 04/18/18 05:56 04/18/18 05:56 04/18/18 04/18/18 04/18/18 04:59 05:56 05:56 WBC 6.0 RBC 3.31 L Hgb 8.9 L Hct 27.3 L MCV 82 MCH 26.7 L MCHC 32.5 RDW 21.4 H Plt Count 217 Seg Neutrophils % 81.4 H Lymphocytes % 8.5 L Monocytes % 8.2 Eosinophils % 1.1 Basophils % 0.8 Absolute Neutrophils 4.9 Absolute Lymphocytes 0.5 Absolute Monocytes 0.5 Absolute Eosinophils 0.1 Absolute Basophils 0.0 Carbonic Acid 1.27 HCO3/H2CO3 Ratio 21:1 ABG pH 7.43 ABG pCO2 42.3 ABG pO2 85.9 ABG HCO3 27.6 H ABG O2 Saturation 96.7 ABG Base Excess 3.1 FiO2 40% Sodium 141.6 Potassium 3.9 Chloride 107 Carbon Dioxide 28 Anion Gap 7 BUN 16 Creatinine 0.90 Est GFR ( Amer) > 60 Est GFR (Non-Af Amer) > 60 Glucose 113 H Calcium 8.1 L Magnesium 1.8 Total Bilirubin 0.6 AST 29 ALT 30 Alkaline Phosphatase 103 Total Protein 4.2 L Albumin 2.3 L 04/14/18 11:50 Chest Tube Fluid Gram Stain - Final 04/14/18 11:50 Chest Tube Fluid Body Fluid Culture - Final NO AEROBIC OR ANAEROBIC ORGANISMS RECOVERED 04/15/18 10:10 Tracheal Aspirate Gram Stain - Final 04/15/18 10:10 Tracheal Aspirate Sputum Culture - Final Pseudomonas Aeruginosa Yeast, Not Pauline Albicans Normal Brittny Absent 04/08/18 04/08/18 04/09/18 21:58 21:58 04:15 Creatine Kinase < 20 L CK-MB (CK-2) Troponin I 0.038 NT-Pro-B Natriuret Pep 5370 H 04/09/18 04/09/18 04/09/18 04:15 10:44 10:44 Creatine Kinase < 20 L CK-MB (CK-2) 1.06 0.64 Troponin I 0.034 0.046 NT-Pro-B Natriuret Pep 04/09/18 04/09/18 04/14/18 15:50 15:50 04:28 Creatine Kinase 30 L CK-MB (CK-2) 0.45 Troponin I 0.050 NT-Pro-B Natriuret Pep 9830 H Impressions: Chest Ultrasound 04/13/18 09:30 IMPRESSION: No thoracentesis was performed. Chest X-Ray 04/18/18 06:00 IMPRESSION: No significant change. Assessment & Plan - Diagnosis (1) Acute respiratory failure with hypoxia and hypercapnia Is this a current diagnosis for this admission?: Yes Plan: Stable at this time (2) Atrial fibrillation with rapid ventricular response Is this a current diagnosis for this admission?: Yes Plan: Fairly well controlled at this time (3) COPD (chronic obstructive pulmonary disease) Qualifiers: Emphysema type: unspecified Is this a current diagnosis for this admission?: Yes Plan: Continue current bronchodilator therapy (4) Morbid obesity Is this a current diagnosis for this admission?: Yes Plan: nutritional consult - Time Total Critical Time (Minutes): 45
--- NOTE | 2018-04-26 16:06 | PDOC PROGRESS REPORT ---
Subjective Progress Note for:: 04/19/18 Subjective:: Intubated and sedated Reason For Visit: ACUTE RESPIRATORY FAILURE WITH HYPOXIA Physical Exam Vital Signs: Temp Pulse Resp BP Pulse Ox 98.1 F 81 24 H 139/52 H 94 04/20/18 08:00 04/20/18 08:00 04/20/18 08:00 04/20/18 08:00 04/20/18 08:00 Intake & Output 04/19/18 04/20/18 04/21/18 06:59 06:59 06:59 Intake Total 2420 1710 14 Output Total 3305 93966 75 Balance -885 -23971 -61 Weight 125.9 kg 127.1 kg General appearance: PRESENT: no acute distress, disheveled, morbidly obese. ABSENT: cooperative Head exam: PRESENT: atraumatic, normocephalic Eye exam: PRESENT: conjunctiva pale. ABSENT: EOMI, nystagmus, periorbital swelling Mouth exam: PRESENT: dry mucosa, neck supple, tongue midline, other - ET tube Neck exam: ABSENT: carotid bruit, full ROM, JVD, lymphadenopathy, meningismus, tenderness, thyromegaly, tracheal deviation, tracheostomy, other Respiratory exam: PRESENT: decreased breath sounds, prolonged expiratory phas, rales, unlabored. ABSENT: retraction, rhonchi, stridor Cardiovascular exam: PRESENT: irregular rhythm Pulses: PRESENT: normal radial pulses GI/Abdominal exam: PRESENT: soft. ABSENT: tenderness Gentrourinary exam: PRESENT: indwelling catheter Extremities exam: PRESENT: pedal edema. ABSENT: calf tenderness, clubbing, joint swelling Musculoskeletal exam: ABSENT: ambulatory, deformity, dislocation Neurological exam: ABSENT: awake Skin exam: PRESENT: dry, warm Results Laboratory Results: 04/20/18 05:00 04/20/18 05:00 04/20/18 04/20/18 04/20/18 05:00 05:00 05:00 WBC 6.7 RBC 3.19 L Hgb 8.6 L Hct 26.1 L MCV 82 MCH 27.1 MCHC 33.1 RDW 21.7 H Plt Count 200 Carbonic Acid 1.18 HCO3/H2CO3 Ratio 24:1 ABG pH 7.48 H ABG pCO2 39.3 ABG pO2 102.4 H ABG HCO3 28.5 H ABG O2 Saturation Not Reportable ABG Base Excess Not Reportable FiO2 45 Sodium 144.2 Potassium 3.7 Chloride 110 H Carbon Dioxide 30 Anion Gap 4 L BUN 18 Creatinine 0.77 Est GFR ( Amer) > 60 Est GFR (Non-Af Amer) > 60 Glucose 155 H Calcium 8.3 L 04/15/18 12:32 Bronchial Washings Gram Stain - Final 04/15/18 12:32 Bronchial Washings Bronchial Washings Culture - Final NO GROWTH 3 DAYS 04/15/18 10:10 Tracheal Aspirate Gram Stain - Final 04/15/18 10:10 Tracheal Aspirate Sputum Culture - Final Pseudomonas Aeruginosa Yeast, Not Pauline Albicans Normal Brittny Absent 04/15/18 12:32 Bronchial Washings AFB Smear Concentration - Final 04/15/18 12:32 Bronchial Washings Acid Fast Bacilli Smear - Final 04/15/18 12:32 Bronchial Washings Fungal Smear - Final 04/15/18 12:32 Bronchial Washings Fungal Smear - Final 04/08/18 04/08/18 04/09/18 21:58 21:58 04:15 Creatine Kinase < 20 L CK-MB (CK-2) Troponin I 0.038 NT-Pro-B Natriuret Pep 5370 H 04/09/18 04/09/18 04/09/18 04:15 10:44 10:44 Creatine Kinase < 20 L CK-MB (CK-2) 1.06 0.64 Troponin I 0.034 0.046 NT-Pro-B Natriuret Pep 04/09/18 04/09/18 04/14/18 15:50 15:50 04:28 Creatine Kinase 30 L CK-MB (CK-2) 0.45 Troponin I 0.050 NT-Pro-B Natriuret Pep 9830 H Impressions: Chest Ultrasound 04/13/18 09:30 IMPRESSION: No thoracentesis was performed. Chest X-Ray 04/19/18 06:00 IMPRESSION: Left chest tube in place, no pneumothorax or pleural effusion Persistent dense left lower lobe consolidation worrisome for pneumonia Persistent unchanged trace right pleural effusion and medial right basilar airspace disease Assessment & Plan - Diagnosis (1) Acute respiratory failure with hypoxia and hypercapnia Is this a current diagnosis for this admission?: Yes Plan: Stable at this time (2) Atrial fibrillation with rapid ventricular response Is this a current diagnosis for this admission?: Yes Plan: Fairly well controlled at this time (3) COPD (chronic obstructive pulmonary disease) Qualifiers: Emphysema type: unspecified Is this a current diagnosis for this admission?: Yes Plan: Continue current bronchodilator therapy (4) Morbid obesity Is this a current diagnosis for this admission?: Yes Plan: nutritional consult - Time Total Critical Time (Minutes): 45
--- NOTE | 2018-04-26 16:08 | PDOC PROGRESS REPORT ---
Subjective Progress Note for:: 04/20/18 Subjective:: Intubated and sedated Reason For Visit: ACUTE RESPIRATORY FAILURE WITH HYPOXIA Physical Exam Vital Signs: Temp Pulse Resp BP Pulse Ox 98.1 F 81 24 H 139/52 H 94 04/20/18 08:00 04/20/18 08:00 04/20/18 08:00 04/20/18 08:00 04/20/18 08:00 Intake & Output 04/19/18 04/20/18 04/21/18 06:59 06:59 06:59 Intake Total 2420 1710 14 Output Total 3305 95161 75 Balance -885 -91083 -61 Weight 125.9 kg 127.1 kg General appearance: PRESENT: no acute distress, disheveled, morbidly obese. ABSENT: cooperative Head exam: PRESENT: atraumatic, normocephalic Eye exam: PRESENT: conjunctiva pale. ABSENT: EOMI, nystagmus, periorbital swelling, scleral icterus Mouth exam: PRESENT: dry mucosa, neck supple, tongue midline, other - ET tube Neck exam: ABSENT: carotid bruit, full ROM, JVD, lymphadenopathy, meningismus, tenderness, thyromegaly, tracheal deviation, tracheostomy, other Respiratory exam: PRESENT: decreased breath sounds, prolonged expiratory phas, rales, rhonchi, unlabored. ABSENT: retraction Cardiovascular exam: PRESENT: irregular rhythm Pulses: PRESENT: normal radial pulses GI/Abdominal exam: PRESENT: soft. ABSENT: tenderness Gentrourinary exam: PRESENT: indwelling catheter Extremities exam: PRESENT: pedal edema. ABSENT: calf tenderness, clubbing, j oint swelling Musculoskeletal exam: ABSENT: ambulatory, deformity, dislocation Neurological exam: ABSENT: awake Skin exam: PRESENT: dry, warm Results Laboratory Results: 04/20/18 05:00 04/20/18 05:00 04/20/18 04/20/18 04/20/18 05:00 05:00 05:00 WBC 6.7 RBC 3.19 L Hgb 8.6 L Hct 26.1 L MCV 82 MCH 27.1 MCHC 33.1 RDW 21.7 H Plt Count 200 Carbonic Acid 1.18 HCO3/H2CO3 Ratio 24:1 ABG pH 7.48 H ABG pCO2 39.3 ABG pO2 102.4 H ABG HCO3 28.5 H ABG O2 Saturation Not Reportable ABG Base Excess Not Reportable FiO2 45 Sodium 144.2 Potassium 3.7 Chloride 110 H Carbon Dioxide 30 Anion Gap 4 L BUN 18 Creatinine 0.77 Est GFR ( Amer) > 60 Est GFR (Non-Af Amer) > 60 Glucose 155 H Calcium 8.3 L 04/15/18 12:32 Bronchial Washings Gram Stain - Final 04/15/18 12:32 Bronchial Washings Bronchial Washings Culture - Final NO GROWTH 3 DAYS 04/15/18 10:10 Tracheal Aspirate Gram Stain - Final 04/15/18 10:10 Tracheal Aspirate Sputum Culture - Final Pseudomonas Aeruginosa Yeast, Not Pauline Albicans Normal Brittny Absent 04/15/18 12:32 Bronchial Washings AFB Smear Concentration - Final 04/15/18 12:32 Bronchial Washings Acid Fast Bacilli Smear - Final 04/15/18 12:32 Bronchial Washings Fungal Smear - Final 04/15/18 12:32 Bronchial Washings Fungal Smear - Final 04/08/18 04/08/18 04/09/18 21:58 21:58 04:15 Creatine Kinase < 20 L CK-MB (CK-2) Troponin I 0.038 NT-Pro-B Natriuret Pep 5370 H 04/09/18 04/09/18 04/09/18 04:15 10:44 10:44 Creatine Kinase < 20 L CK-MB (CK-2) 1.06 0.64 Troponin I 0.034 0.046 NT-Pro-B Natriuret Pep 04/09/18 04/09/18 04/14/18 15:50 15:50 04:28 Creatine Kinase 30 L CK-MB (CK-2) 0.45 Troponin I 0.050 NT-Pro-B Natriuret Pep 9830 H Impressions: Chest Ultrasound 04/13/18 09:30 IMPRESSION: No thoracentesis was performed. Chest X-Ray 04/19/18 06:00 IMPRESSION: Left chest tube in place, no pneumothorax or pleural effusion Persistent dense left lower lobe consolidation worrisome for pneumonia Persistent unchanged trace right pleural effusion and medial right basilar airspace disease Assessment & Plan - Diagnosis (1) Acute respiratory failure with hypoxia and hypercapnia Is this a current diagnosis for this admission?: Yes Plan: Stable at this time (2) Atrial fibrillation with rapid ventricular response Is this a current diagnosis for this admission?: Yes Plan: Fairly well controlled at this time (3) COPD (chronic obstructive pulmonary disease) Qualifiers: Emphysema type: unspecified Is this a current diagnosis for this admission?: Yes Plan: Continue current bronchodilator therapy (4) Morbid obesity Is this a current diagnosis for this admission?: Yes Plan: nutritional consult - Time Total Critical Time (Minutes): 45
--- NOTE | 2018-04-26 16:11 | PDOC PROGRESS REPORT ---
Subjective Progress Note for:: 04/21/18 Subjective:: Intubated and sedated Reason For Visit: ACUTE RESPIRATORY FAILURE WITH HYPOXIA Physical Exam Vital Signs: Temp Pulse Resp BP Pulse Ox 98.2 F 67 14 135/55 H 98 04/21/18 10:01 04/21/18 10:00 04/21/18 10:01 04/21/18 10:01 04/21/18 10:01 Intake & Output 04/20/18 04/21/18 04/22/18 06:59 06:59 06:59 Intake Total 1710 3695 206 Output Total 61761 1510 205 Balance -04666 2185 1 Weight 127.1 kg 127.9 kg General appearance: PRESENT: no acute distress, disheveled, morbidly obese. ABSENT: cooperative Head exam: PRESENT: atraumatic, normocephalic Eye exam: PRESENT: conjunctiva pale, EOMI. ABSENT: nystagmus, periorbital swelling, scleral icterus Mouth exam: PRESENT: dry mucosa, neck supple, tongue midline, other - ET tube Neck exam: ABSENT: carotid bruit, full ROM, JVD, lymphadenopathy, meningismus, tenderness, thyromegaly, tracheal deviation, tracheostomy, other Respiratory exam: PRESENT: decreased breath sounds, prolonged expiratory phas, rales, rhonchi, unlabored. ABSENT: retraction, stridor Cardiovascular exam: PRESENT: irregular rhythm Pulses: PRESENT: normal radial pulses GI/Abdominal exam: PRESENT: soft. ABSENT: tenderness Gentrourinary exam: PRESENT: indwelling catheter Extremities exam: PRESENT: pedal edema. ABSENT: calf tenderness, clubbing, joint swelling Musculoskeletal exam: ABSENT: ambulatory, deformity, dislocation Neurological exam: ABSENT: awake Skin exam: PRESENT: dry, warm Results Laboratory Results: 04/21/18 05:15 04/21/18 05:15 04/20/18 04/21/18 04/21/18 17:40 05:15 05:15 WBC RBC Hgb Hct MCV MCH MCHC RDW Plt Count Seg Neutrophils % Lymphocytes % Monocytes % Eosinophils % Basophils % Absolute Neutrophils Absolute Lymphocytes Absolute Monocytes Absolute Eosinophils Absolute Basophils Carbonic Acid 1.23 HCO3/H2CO3 Ratio 21:1 ABG pH 7.44 ABG pCO2 40.7 ABG pO2 70.6 L ABG HCO3 27.0 H ABG O2 Saturation 94.8 ABG Base Excess 2.7 FiO2 40% Sodium 141.3 Potassium 3.7 Chloride 107 Carbon Dioxide 30 Anion Gap 5 BUN 17 Creatinine 0.66 Est GFR ( Amer) > 60 Est GFR (Non-Af Amer) > 60 Glucose 137 H Calcium 8.6 Magnesium 1.8 Fluid Type BRONCHIAL WASH Fluid Source LUNG Fluid Color RED Fluid Appearance CLOUDY Fluid Viscosity SLIGHTLY VISCOUS Fluid WBC 1128 Fluid RBC 32533 04/21/18 05:15 WBC 7.2 RBC 3.14 L Hgb 8.6 L Hct 26.0 L MCV 83 MCH 27.3 MCHC 32.9 RDW 21.9 H Plt Count 203 Seg Neutrophils % 82.8 H Lymphocytes % 7.6 L Monocytes % 7.6 Eosinophils % 1.1 Basophils % 0.9 Absolute Neutrophils 5.9 Absolute Lymphocytes 0.5 Absolute Monocytes 0.5 Absolute Eosinophils 0.1 Absolute Basophils 0.1 Carbonic Acid HCO3/H2CO3 Ratio ABG pH ABG pCO2 ABG pO2 ABG HCO3 ABG O2 Saturation ABG Base Excess FiO2 Sodium Potassium Chloride Carbon Dioxide Anion Gap BUN Creatinine Est GFR ( Amer) Est GFR (Non-Af Amer) Glucose Calcium Magnesium Fluid Type Fluid Source Fluid Color Fluid Appearance Fluid Viscosity Fluid WBC Fluid RBC 04/08/18 04/08/18 04/09/18 21:58 21:58 04:15 Creatine Kinase < 20 L CK-MB (CK-2) Troponin I 0.038 NT-Pro-B Natriuret Pep 5370 H 04/09/18 04/09/18 04/09/18 04:15 10:44 10:44 Creatine Kinase < 20 L CK-MB (CK-2) 1.06 0.64 Troponin I 0.034 0.046 NT-Pro-B Natriuret Pep 04/09/18 04/09/18 04/14/18 15:50 15:50 04:28 Creatine Kinase 30 L CK-MB (CK-2) 0.45 Troponin I 0.050 NT-Pro-B Natriuret Pep 9830 H Impressions: Chest Ultrasound 04/13/18 09:30 IMPRESSION: No thoracentesis was performed. Chest X-Ray 04/21/18 06:00 IMPRESSION: Little interval change copyright 2011 [employer]- All Rights Reserved Assessment & Plan - Diagnosis (1) Acute respiratory failure with hypoxia and hypercapnia Is this a current diagnosis for this admission?: Yes Plan: Stable at this time (2) Atrial fibrillation with rapid ventricular response Is this a current diagnosis for this admission?: Yes Plan: Fairly well controlled at this time (3) COPD (chronic obstructive pulmonary disease) Qualifiers: Emphysema type: unspecified Is this a current diagnosis for this admission?: Yes Plan: Continue current bronchodilator therapy (4) Morbid obesity Is this a current diagnosis for this admission?: Yes Plan: nutritional consult - Time Total Critical Time (Minutes): 45
--- NOTE | 2018-04-26 16:12 | PDOC PROGRESS REPORT ---
Subjective Progress Note for:: 04/23/18 Subjective:: Status post extubation stable on BiPAP Reason For Visit: ACUTE RESPIRATORY FAILURE WITH HYPOXIA Physical Exam Vital Signs: Temp Pulse Resp BP Pulse Ox 97.2 F 75 20 154/64 H 98 04/23/18 06:01 04/23/18 02:30 04/23/18 06:01 04/23/18 06:01 04/23/18 06:01 Intake & Output 04/22/18 04/23/18 04/24/18 06:59 06:59 06:59 Intake Total 2211 1150 Output Total 1710 3040 Balance 501 -1340 Weight 127.1 kg 125.8 kg General appearance: PRESENT: no acute distress, cooperative, disheveled, morbidly obese Head exam: PRESENT: atraumatic, normocephalic Eye exam: PRESENT: conjunctiva pale, EOMI. ABSENT: nystagmus, periorbital swelling Mouth exam: PRESENT: dry mucosa, neck supple, tongue midline Neck exam: ABSENT: carotid bruit, full ROM, JVD, lymphadenopathy, meningismus, tenderness, thyromegaly, tracheal deviation, tracheostomy, other Respiratory exam: PRESENT: decreased breath sounds, prolonged expiratory phas, rales, rhonchi, unlabored, wheezes. ABSENT: retraction Cardiovascular exam: PRESENT: irregular rhythm Pulses: PRESENT: normal radial pulses GI/Abdominal exam: PRESENT: soft. ABSENT: tenderness Gentrourinary exam: PRESENT: indwelling catheter Extremities exam: PRESENT: pedal edema. ABSENT: calf tenderness, clubbing, joint swelling Musculoskeletal exam: ABSENT: ambulatory, deformity, dislocation Neurological exam: PRESENT: altered, awake Psychiatric exam: PRESENT: flat affect Skin exam: PRESENT: dry, warm Results Laboratory Results: 04/23/18 03:33 04/23/18 03:33 04/22/18 04/22/18 04/23/18 11:30 13:30 03:33 WBC RBC Hgb Hct MCV MCH MCHC RDW Plt Count Seg Neutrophils % Lymphocytes % Monocytes % Eosinophils % Basophils % Absolute Neutrophils Absolute Lymphocytes Absolute Monocytes Absolute Eosinophils Absolute Basophils Carbonic Acid 1.36 H 1.38 H 1.10 HCO3/H2CO3 Ratio 21:1 20:1 23:1 ABG pH 7.42 7.41 7.47 H ABG pCO2 45.2 H 45.9 H 36.4 ABG pO2 123.1 H 67.1 L 66.8 L ABG HCO3 28.9 H 28.2 H 25.7 H ABG O2 Saturation 98.5 H 93.3 L 94.4 ABG Base Excess 4.0 3.0 2.0 FiO2 50% 40% 45% Sodium Potassium Chloride Carbon Dioxide Anion Gap BUN Creatinine Est GFR ( Amer) Est GFR (Non-Af Amer) Glucose Calcium Magnesium 04/23/18 04/23/18 03:33 03:33 WBC 5.5 RBC 3.47 L Hgb 9.4 L Hct 28.6 L MCV 82 MCH 26.9 L MCHC 32.7 RDW 22.1 H Plt Count 229 Seg Neutrophils % 88.5 H Lymphocytes % 5.8 L Monocytes % 5.3 Eosinophils % 0.0 Basophils % 0.4 Absolute Neutrophils 4.9 Absolute Lymphocytes 0.3 L Absolute Monocytes 0.3 Absolute Eosinophils 0.0 Absolute Basophils 0.0 Carbonic Acid HCO3/H2CO3 Ratio ABG pH ABG pCO2 ABG pO2 ABG HCO3 ABG O2 Saturation ABG Base Excess FiO2 Sodium 139.5 Potassium 4.2 Chloride 104 Carbon Dioxide 27 Anion Gap 9 BUN 18 Creatinine 0.62 Est GFR ( Amer) > 60 Est GFR (Non-Af Amer) > 60 Glucose 184 H Calcium 8.8 Magnesium 1.8 04/20/18 17:40 Bronchial Washings Gram Stain - Final 04/20/18 17:40 Bronchial Washings Bronchial Washings Culture - Final NO GROWTH 2 DAYS 04/08/18 04/08/18 04/09/18 21:58 21:58 04:15 Creatine Kinase < 20 L CK-MB (CK-2) Troponin I 0.038 NT-Pro-B Natriuret Pep 5370 H 04/09/18 04/09/18 04/09/18 04:15 10:44 10:44 Creatine Kinase < 20 L CK-MB (CK-2) 1.06 0.64 Troponin I 0.034 0.046 NT-Pro-B Natriuret Pep 04/09/18 04/09/18 04/14/18 15:50 15:50 04:28 Creatine Kinase 30 L CK-MB (CK-2) 0.45 Troponin I 0.050 NT-Pro-B Natriuret Pep 9830 H Impressions: Chest Ultrasound 04/13/18 09:30 IMPRESSION: No thoracentesis was performed. Chest X-Ray 04/23/18 06:00 IMPRESSION: 1. Improving aeration in the left lung base since the prior study. 2. Ongoing volume loss in the right lung base. 3. Interval removal of the endotracheal tube and feeding tube. Remaining right-sided subclavian central venous catheter and left-sided chest tube are grossly stable. Assessment & Plan - Diagnosis (1) Acute respiratory failure with hypoxia and hypercapnia Is this a current diagnosis for this admission?: Yes Plan: Stable at this time (2) Atrial fibrillation with rapid ventricular response Is this a current diagnosis for this admission?: Yes Plan: Fairly well controlled at this time (3) COPD (chronic obstructive pulmonary disease) Qualifiers: Emphysema type: unspecified Is this a current diagnosis for this admission?: Yes Plan: Continue current bronchodilator therapy (4) Morbid obesity Is this a current diagnosis for this admission?: Yes Plan: nutritional consult - Time Total Critical Time (Minutes): 40
--- NOTE | 2018-04-26 16:14 | PDOC PROGRESS REPORT ---
Subjective Progress Note for:: 04/24/18 Subjective:: Status post extubation stable on BiPAP Reason For Visit: ACUTE RESPIRATORY FAILURE WITH HYPOXIA Physical Exam Vital Signs: Temp Pulse Resp BP Pulse Ox 97.3 F 61 16 173/67 H 98 04/24/18 10:02 04/24/18 10:00 04/24/18 10:02 04/24/18 10:02 04/24/18 10:02 Intake & Output 04/23/18 04/24/18 04/25/18 06:59 06:59 07:59 Intake Total 1150 Output Total 2490 1195 175 Balance -1340 -1195 -175 Weight 125.8 kg 126.4 kg General appearance: PRESENT: no acute distress, cooperative, disheveled, morbidly obese Head exam: PRESENT: atraumatic, normocephalic Eye exam: PRESENT: conjunctiva pale, EOMI. ABSENT: nystagmus, periorbital swelling, scleral icterus Mouth exam: PRESENT: dry mucosa, neck supple, tongue midline Neck exam: ABSENT: carotid bruit, full ROM, JVD, lymphadenopathy, meningismus, tenderness, thyromegaly, tracheal deviation, tracheostomy, other Respiratory exam: PRESENT: decreased breath sounds, prolonged expiratory phas, rales, rhonchi, unlabored. ABSENT: retraction, stridor Cardiovascular exam: PRESENT: irregular rhythm Pulses: PRESENT: normal radial pulses GI/Abdominal exam: PRESENT: soft. ABSENT: tenderness Gentrourinary exam: PRESENT: indwelling catheter Extremities exam: PRESENT: pedal edema. ABSENT: calf tenderness, clubbing, joint swelling Musculoskeletal exam: ABSENT: deformity, dislocation Neurological exam: PRESENT: altered, awake Psychiatric exam: PRESENT: flat affect Skin exam: PRESENT: dry, warm Results Laboratory Results: 04/24/18 04:39 04/24/18 04:39 04/24/18 04/24/18 04/24/18 04:39 04:39 04:39 WBC 6.5 RBC 3.06 L Hgb 8.4 L Hct 25.5 L MCV 83 MCH 27.4 MCHC 33.0 RDW 22.9 H Plt Count 197 Seg Neutrophils % 79.2 H Lymphocytes % 9.5 L Monocytes % 9.3 Eosinophils % 1.2 Basophils % 0.8 Absolute Neutrophils 5.1 Absolute Lymphocytes 0.6 Absolute Monocytes 0.6 Absolute Eosinophils 0.1 Absolute Basophils 0.0 Carbonic Acid HCO3/H2CO3 Ratio ABG pH ABG pCO2 ABG pO2 ABG HCO3 ABG O2 Saturation ABG Base Excess FiO2 Sodium 137.3 Cancelled Potassium 3.5 L Cancelled Chloride 102 Cancelled Carbon Dioxide 29 Cancelled Anion Gap 6 Cancelled BUN 19 Cancelled Creatinine 0.67 Cancelled Est GFR ( Amer) > 60 Cancelled Est GFR (Non-Af Amer) > 60 Cancelled Glucose 117 H Cancelled Calcium 8.1 L Cancelled Phosphorus 3.9 Cancelled Magnesium 1.7 Albumin 2.5 L Cancelled 04/24/18 04:55 WBC RBC Hgb Hct MCV MCH MCHC RDW Plt Count Seg Neutrophils % Lymphocytes % Monocytes % Eosinophils % Basophils % Absolute Neutrophils Absolute Lymphocytes Absolute Monocytes Absolute Eosinophils Absolute Basophils Carbonic Acid 1.23 HCO3/H2CO3 Ratio 22:1 ABG pH 7.45 ABG pCO2 40.8 ABG pO2 102.8 H ABG HCO3 27.7 H ABG O2 Saturation 97.9 ABG Base Excess 3.4 FiO2 40% Sodium Potassium Chloride Carbon Dioxide Anion Gap BUN Creatinine Est GFR ( Amer) Est GFR (Non-Af Amer) Glucose Calcium Phosphorus Magnesium Albumin 04/08/18 04/08/18 04/09/18 21:58 21:58 04:15 Creatine Kinase < 20 L CK-MB (CK-2) Troponin I 0.038 NT-Pro-B Natriuret Pep 5370 H 04/09/18 04/09/18 04/09/18 04:15 10:44 10:44 Creatine Kinase < 20 L CK-MB (CK-2) 1.06 0.64 Troponin I 0.034 0.046 NT-Pro-B Natriuret Pep 04/09/18 04/09/18 04/14/18 15:50 15:50 04:28 Creatine Kinase 30 L CK-MB (CK-2) 0.45 Troponin I 0.050 NT-Pro-B Natriuret Pep 9830 H Impressions: Chest Ultrasound 04/13/18 09:30 IMPRESSION: No thoracentesis was performed. Assessment & Plan - Diagnosis (1) Acute respiratory failure with hypoxia and hypercapnia Is this a current diagnosis for this admission?: Yes Plan: Stable at this time (2) Atrial fibrillation with rapid ventricular response Is this a current diagnosis for this admission?: Yes Plan: Fairly well controlled at this time (3) COPD (chronic obstructive pulmonary disease) Qualifiers: Emphysema type: unspecified Is this a current diagnosis for this admission?: Yes Plan: Continue current bronchodilator therapy (4) Morbid obesity Is this a current diagnosis for this admission?: Yes Plan: nutritional consult - Time Total Critical Time (Minutes): 45
--- NOTE | 2018-04-26 16:16 | PDOC PROGRESS REPORT ---
Subjective Progress Note for:: 04/25/18 Subjective:: Status post extubation stable on BiPAP Reason For Visit: ACUTE RESPIRATORY FAILURE WITH HYPOXIA Physical Exam Vital Signs: Temp Pulse Resp BP Pulse Ox 97.7 F 73 21 H 142/60 H 97 04/25/18 08:00 04/25/18 08:00 04/25/18 08:00 04/25/18 08:00 04/25/18 08:00 Intake & Output 04/24/18 04/25/18 04/26/18 05:59 06:59 06:59 Intake Total 386 Output Total 100 Balance 286 Weight General appearance: PRESENT: no acute distress, cooperative, disheveled, morbidly obese Head exam: PRESENT: atraumatic, normocephalic Eye exam: PRESENT: conjunctiva pale, EOMI. ABSENT: nystagmus, periorbital swelling, scleral icterus Mouth exam: PRESENT: dry mucosa, neck supple, tongue midline Neck exam: ABSENT: carotid bruit, full ROM, JVD, lymphadenopathy, meningismus, tenderness, thyromegaly, tracheal deviation, tracheostomy, other Respiratory exam: PRESENT: decreased breath sounds, prolonged expiratory phas, rales, rhonchi, unlabored. ABSENT: retraction Cardiovascular exam: PRESENT: irregular rhythm Pulses: PRESENT: normal radial pulses GI/Abdominal exam: PRESENT: soft. ABSENT: tenderness Gentrourinary exam: PRESENT: indwelling catheter Extremities exam: PRESENT: pedal edema. ABSENT: calf tenderness, clubbing, joint swelling Musculoskeletal exam: ABSENT: ambulatory, deformity, dislocation Neurological exam: PRESENT: altered, awake Psychiatric exam: PRESENT: flat affect Skin exam: PRESENT: dry, warm Results Laboratory Results: 04/25/18 04:13 04/25/18 04:13 04/25/18 04/25/18 04/25/18 04:13 04:13 04:47 WBC 9.2 RBC 3.41 L Hgb 9.4 L Hct 28.3 L MCV 83 MCH 27.6 MCHC 33.2 RDW 21.9 H Plt Count 222 Seg Neutrophils % 82.5 H Lymphocytes % 5.8 L Monocytes % 9.3 Eosinophils % 1.3 Basophils % 1.1 Absolute Neutrophils 7.6 Absolute Lymphocytes 0.5 Absolute Monocytes 0.9 Absolute Eosinophils 0.1 Absolute Basophils 0.1 Carbonic Acid 1.41 H HCO3/H2CO3 Ratio 20:1 ABG pH 7.41 ABG pCO2 46.8 H ABG pO2 122.0 H ABG HCO3 29.2 H ABG O2 Saturation 98.4 H ABG Base Excess 4.1 FiO2 40% Sodium 137.9 Potassium 3.4 L Chloride 100 Carbon Dioxide 29 Anion Gap 9 BUN 18 Creatinine 0.53 Est GFR ( Amer) > 60 Est GFR (Non-Af Amer) > 60 Glucose 122 H Calcium 8.2 L Magnesium 1.6 04/08/18 04/08/18 04/09/18 21:58 21:58 04:15 Creatine Kinase < 20 L CK-MB (CK-2) Troponin I 0.038 NT-Pro-B Natriuret Pep 5370 H 04/09/18 04/09/18 04/09/18 04:15 10:44 10:44 Creatine Kinase < 20 L CK-MB (CK-2) 1.06 0.64 Troponin I 0.034 0.046 NT-Pro-B Natriuret Pep 04/09/18 04/09/18 04/14/18 15:50 15:50 04:28 Creatine Kinase 30 L CK-MB (CK-2) 0.45 Troponin I 0.050 NT-Pro-B Natriuret Pep 9830 H Impressions: Chest Ultrasound 04/13/18 09:30 IMPRESSION: No thoracentesis was performed. Chest X-Ray 04/25/18 06:00 IMPRESSION: Right lower lobe atelectasis or pneumonia. No pneumothorax. Assessment & Plan - Diagnosis (1) Acute respiratory failure with hypoxia and hypercapnia Is this a current diagnosis for this admission?: Yes Plan: Stable at this time (2) Atrial fibrillation with rapid ventricular response Is this a current diagnosis for this admission?: Yes Plan: Fairly well controlled at this time (3) COPD (chronic obstructive pulmonary disease) Qualifiers: Emphysema type: unspecified Is this a current diagnosis for this admission?: Yes Plan: Continue current bronchodilator therapy (4) Morbid obesity Is this a current diagnosis for this admission?: Yes Plan: nutritional consult - Time Total Critical Time (Minutes): 40
--- NOTE | 2018-04-26 23:08 | PDOC PROGRESS REPORT ---
Subjective Progress Note for:: 04/26/18 Subjective:: Speech therapy initiated a diet today. He still remains on BiPAP. Reason For Visit: ACUTE RESPIRATORY FAILURE WITH HYPOXIA Physical Exam Vital Signs: Temp Pulse Resp BP Pulse Ox 98.4 F 67 16 160/64 H 99 04/26/18 11:41 04/26/18 11:41 04/26/18 11:41 04/26/18 11:41 04/26/18 11:41 Intake & Output 04/25/18 04/26/18 04/27/18 06:59 06:59 06:59 Intake Total 386 100 Output Total 2125 525 Balance -6088 -378 Weight 120.4 kg General appearance: PRESENT: no acute distress, morbidly obese Eye exam: PRESENT: conjunctiva pale Respiratory exam: PRESENT: rales, symmetrical, other. ABSENT: rhonchi Cardiovascular exam: PRESENT: RRR, +S1, +S2 GI/Abdominal exam: PRESENT: normal bowel sounds, soft. ABSENT: tenderness Extremities exam: PRESENT: pedal edema, +1 edema - Upper extremities. Improving slowly. Neurological exam: PRESENT: alert, awake, oriented to person Psychiatric exam: PRESENT: flat affect. ABSENT: agitated, anxious Results Laboratory Results: 04/25/18 04:13 04/25/18 04:13 04/26/18 05:49 Magnesium 1.5 L 04/08/18 04/08/18 04/09/18 21:58 21:58 04:15 Creatine Kinase < 20 L CK-MB (CK-2) Troponin I 0.038 NT-Pro-B Natriuret Pep 5370 H 04/09/18 04/09/18 04/09/18 04:15 10:44 10:44 Creatine Kinase < 20 L CK-MB (CK-2) 1.06 0.64 Troponin I 0.034 0.046 NT-Pro-B Natriuret Pep 04/09/18 04/09/18 04/14/18 15:50 15:50 04:28 Creatine Kinase 30 L CK-MB (CK-2) 0.45 Troponin I 0.050 NT-Pro-B Natriuret Pep 9830 H Impressions: Chest Ultrasound 04/13/18 09:30 IMPRESSION: No thoracentesis was performed. Assessment & Plan - Diagnosis (1) Acute respiratory failure with hypoxia and hypercapnia Is this a current diagnosis for this admission?: Yes Plan: Continue to try to wean from BiPAP (2) Pneumonia Qualifiers: Pneumonia type: due to Pseudomonas Laterality: bilateral Lung location: lower lobe of lung Qualified Code(s): J15.1 - Pneumonia due to Pseudomonas Is this a current diagnosis for this admission?: Yes Plan: Antibiotic therapy has been completed. The patient is still on nebulized tobramycin. I believe this can be discontinued soon. I will defer that decision to pulmonology. (3) Left lower lobe atelectasis/plug Is this a current diagnosis for this admission?: Yes Plan: Resolved (4) Atrial fibrillation with rapid ventricular response Is this a current diagnosis for this admission?: Yes Plan: Reasonable rate control continue current regimen (5) Acute exacerbation of CHF (congestive heart failure) Qualifiers: Heart failure type: systolic Qualified Code(s): I50.23 - Acute on chronic systolic (congestive) heart failure Is this a current diagnosis for this admission?: Yes Plan: Continue current regimen (6) Diabetes mellitus type 2 in obese Is this a current diagnosis for this admission?: Yes Plan: Continue current regimen (7) COPD (chronic obstructive pulmonary disease) with emphysema Qualifiers: Emphysema type: centrilobular Qualified Code(s): J43.2 - Centrilobular emphysema Is this a current diagnosis for this admission?: Yes Plan: Continue nebulizers and oxygen supplementation. (8) Dysphagia Qualifiers: Dysphagia type: unspecified Qualified Code(s): R13.10 - Dysphagia, unspecified Is this a current diagnosis for this admission?: Yes Plan: Speech therapy initiated a diet today (9) Critical illness myopathy Is this a current diagnosis for this admission?: Yes Plan: Will need rehab after discharge (10) Morbid obesity with alveolar hypoventilation Is this a current diagnosis for this admission?: Yes Plan: Continue same treatment plan (11) Conjunctivitis Qualifiers: Conjunctivitis type: blepharoconjunctivitis Laterality: bilateral Is this a current diagnosis for this admission?: Yes Plan: Continue Ilotycin ointment - Time Time Spent with patient: 15-24 minutes Medications reviewed and adjusted accordingly: Yes
[2018-04-27] MEDS: OXYCODONE HCL IR 5 MG TABLET PO PRN ×3 (00:19→17:59)
[2018-04-27] MEDS: IPRATROPIUM/ALBUTEROL 0.5-2.5 MG/3 ML AMPUL NEB SCH ×4 (02:12→20:56)
[2018-04-27] MEDS: HEPARIN SOD (PORCINE) 5,000 UNIT/ML 1 ML SYRINGE SUBCUT SCH ×3 (06:06→21:56)
[2018-04-27] MEDS: INSULIN LISPRO 100 UNIT/ML 3 ML VIAL SUBCUT SCH ×4 (08:43→21:55)
[2018-04-27] MEDS: ACETYLCYSTEINE 20% SOLN 800 MG/4 ML VIAL.NEB NEB SCH ×2 (09:07→20:56)
[2018-04-27] MEDS: MAGNESIUM OXIDE 400 MG TABLET PO SCH (10:08)
[2018-04-27] MEDS: FUROSEMIDE INJ/PF 20 MG/2 ML SDV IV SCH ×2 (10:08→21:55)
[2018-04-27] MEDS: METOPROLOL TARTRATE 25 MG TABLET PO SCH ×2 (10:08→21:55)
[2018-04-27] MEDS: ASPIRIN 81 MG TABLET, CHEWABLE PO SCH (10:08)
[2018-04-27] MEDS: DIGOXIN 0.125 MG TABLET PO SCH (10:08)
[2018-04-27] MEDS: ERYTHROMYCIN 0.5% OPH OINTMENT 3.5 GM TUBE OU SCH ×2 (10:13→18:01)
[2018-04-27] MEDS: HYDRALAZINE HCL INJ/PF 20 MG/1 ML SDV IV PRN (17:59)
--- NOTE | 2018-04-27 20:09 | PDOC PROGRESS REPORT ---
Subjective Progress Note for:: 04/27/18 Subjective:: The patient is resting in his bed. He is awake and alert. He is not oriented. Review of systems cannot be obtained. At this point the patient is going to be likely transferred to subacute rehabilitation tomorrow. The is at the bedside. We discussed goals of care. At this point she knows that the patient's prognosis is quite poor. She states she would like to see what happens at rehab but if he does not do well or has to be readmitted she would like to transition to palliative care and to take the patient home with home hospice. At this point it seems reasonable to try to see how he does at rehab and he will be discharged tomorrow. Reason For Visit: ACUTE RESPIRATORY FAILURE WITH HYPOXIA Physical Exam Vital Signs: Temp Pulse Resp BP Pulse Ox 98.5 F 91 20 131/53 H 93 04/27/18 19:30 04/27/18 19:30 04/27/18 19:30 04/27/18 19:30 04/27/18 19:30 Intake & Output 04/26/18 04/27/18 04/28/18 06:59 06:59 06:59 Intake Total 386 811 318 Output Total 9836 1753 1371 Balance -3954 -0778 -7449 Weight 120.4 kg 122.9 kg General appearance: PRESENT: disheveled, obese, other - Chronically ill-reymundo earing Head exam: PRESENT: atraumatic, normocephalic Eye exam: PRESENT: conjunctiva pink, EOMI, PERRLA. ABSENT: scleral icterus Mouth exam: PRESENT: moist, tongue midline Respiratory exam: PRESENT: clear to auscultation ernesto, decreased breath sounds Cardiovascular exam: PRESENT: RRR. ABSENT: diastolic murmur, rubs, systolic murmur GI/Abdominal exam: PRESENT: other - Obese. Soft. Nontender to palpation. I could not assess for organomegaly due to his body habitus Rectal exam: PRESENT: deferred Extremities exam: ABSENT: calf tenderness, clubbing, pedal edema Musculoskeletal exam: ABSENT: ambulatory Neurological exam: PRESENT: alert, awake, oriented to person, oriented to place. ABSENT: oriented to time, oriented to situation Psychiatric exam: PRESENT: appropriate affect, normal mood. ABSENT: homicidal ideation, suicidal ideation Skin exam: PRESENT: abrasion Results Laboratory Results: 04/25/18 04:13 04/25/18 04:13 04/08/18 04/08/18 04/09/18 21:58 21:58 04:15 Creatine Kinase < 20 L CK-MB (CK-2) Troponin I 0.038 NT-Pro-B Natriuret Pep 5370 H 04/09/18 04/09/18 04/09/18 04:15 10:44 10:44 Creatine Kinase < 20 L CK-MB (CK-2) 1.06 0.64 Troponin I 0.034 0.046 NT-Pro-B Natriuret Pep 04/09/18 04/09/18 04/14/18 15:50 15:50 04:28 Creatine Kinase 30 L CK-MB (CK-2) 0.45 Troponin I 0.050 NT-Pro-B Natriuret Pep 9830 H Impressions: Chest Ultrasound 04/13/18 09:30 IMPRESSION: No thoracentesis was performed. Assessment & Plan - Diagnosis (1) Acute respiratory failure with hypoxia and hypercapnia Is this a current diagnosis for this admission?: Yes Plan: Resolved. His respiratory failure was due to underlying pneumonia, de compensated heart failure and atrial fibrillation with rapid ventricular response. He is back to his baseline oxygen requirements. (2) Pneumonia Qualifiers: Pneumonia type: due to Pseudomonas Laterality: bilateral Lung location: lower lobe of lung Qualified Code(s): J15.1 - Pneumonia due to Pseudomonas Is this a current diagnosis for this admission?: Yes Plan: He has been treated for gram-negative or MRSA pneumonia. He is completed a course of broad-spectrum IV antibiotics. (3) Left lower lobe atelectasis/plug Is this a current diagnosis for this admission?: Yes Plan: Resolved (4) Atrial fibrillation with rapid ventricular response Is this a current diagnosis for this admission?: Yes Plan: Resolved. Currently rate controlled (5) Acute on chronic systolic CHF (congestive heart failure) Is this a current diagnosis for this admission?: Yes Plan: He has been successfully diuresed. Currently he is fairly euvolemic (6) Diabetes mellitus type 2 in obese Is this a current diagnosis for this admission?: Yes Plan: Adequately controlled on current regimen. Continue sliding scale insulin (7) COPD (chronic obstructive pulmonary disease) Qualifiers: Emphysema type: unspecified Is this a current diagnosis for this admission?: Yes Plan: No evidence of exacerbation (8) Dysphagia Qualifiers: Dysphagia type: unspecified Qualified Code(s): R13.10 - Dysphagia, unspe cified Is this a current diagnosis for this admission?: Yes Plan: Likely due to severe weakness. Continue modified diet (9) Critical illness myopathy Is this a current diagnosis for this admission?: Yes Plan: Critical illness polyneuropathy and myopathy. (10) Morbid obesity Is this a current diagnosis for this admission?: Yes Plan: Encourage good p.o. intake (11) Conjunctivitis Qualifiers: Conjunctivitis type: blepharoconjunctivitis Laterality: bilateral Is this a current diagnosis for this admission?: Yes Plan: Improving (12) Anemia Is this a current diagnosis for this admission?: Yes Plan: Likely secondary to chronic disease. Stable (13) Hypokalemia Is this a current diagnosis for this admission?: Yes Plan: I will check a chemistry panel tomorrow. This is been repleted (14) Hypomagnesemia Is this a current diagnosis for this admission?: Yes Plan: Repleted and resolved - Time Time Spent with patient: 35 or more minutes - Inpatient Certification Medical Necessity: Other - Inpatient hospitalization remains necessary. Overall the patient will likely be transferred to subacute rehabilitation tomorrow.
[2018-04-28] MEDS: IPRATROPIUM/ALBUTEROL 0.5-2.5 MG/3 ML AMPUL NEB SCH ×4 (01:53→20:42)
[2018-04-28] MEDS: HEPARIN SOD (PORCINE) 5,000 UNIT/ML 1 ML SYRINGE SUBCUT SCH ×2 (05:33→14:32)
[2018-04-28 06:13] LABS: ABSOLUTE BASOPHILS # (AUTO) 0.1 10^3/uL (0.0-0.2); ABSOLUTE EOSINOPHILS # (AUTO) 0.3 10^3/uL (0.0-0.6); ABSOLUTE LYMPHOCYTES (AUTO) 0.6 10^3/uL (0.5-4.7); ABSOLUTE MONOCYTES (AUTO) 0.7 10^3/uL (0.1-1.4); ABSOLUTE NEUT (AUTO) 6.2 10^3/uL (1.7-8.2); BASOPHILS % (AUTO) 0.7 % (0-2); EOSINOPHILS % (AUTO) 4.2 % (0-6); HEMATOCRIT 27.9 % (37.9-51.0); HEMOGLOBIN 9.4 g/dL (13.5-17.0); LYMPHOCYTES % (AUTO) 7.7 % (13-45); MEAN CORPUSCULAR HEMOGLOBIN 28.1 pg (27.0-33.4); MEAN CORPUSCULAR HGB CONC 33.7 g/dL (32.0-36.0); MEAN CORPUSCULAR VOLUME 83 fl (80-97); MONOCYTES % (AUTO) 9.4 % (3-13); PLATELET COUNT 212 10^3/uL (150-450); RED BLOOD COUNT 3.35 10^6/uL (4.35-5.55); RED CELL DISTRIBUTION WIDTH 22.9 % (11.5-14.0); TOTAL CELLS COUNTED % (AUTO) 100 %
[2018-04-28 06:34] LABS: ANION GAP 5 (5-19); BLOOD UREA NITROGEN 12 mg/dL (7-20); CALCIUM 8.2 mg/dL (8.4-10.2); CARBON DIOXIDE 37 mmol/L (22-30); CHLORIDE 93 mmol/L (98-107); GLUCOSE 113 mg/dL (75-110); POTASSIUM 3.3 mmol/L (3.6-5.0); SODIUM 135.4 mmol/L (137-145)
[2018-04-28] MEDS: ACETYLCYSTEINE 20% SOLN 800 MG/4 ML VIAL.NEB NEB SCH ×2 (08:59→20:42)
[2018-04-28] MEDS: INSULIN LISPRO 100 UNIT/ML 3 ML VIAL SUBCUT SCH ×3 (09:06→18:05)
[2018-04-28] MEDS ORDERED: POTASSIUM CHLORIDE 10 MEQ CAPSULE.ER PO SCH (10:00)
[2018-04-28] MEDS: MAGNESIUM OXIDE 400 MG TABLET PO SCH (11:04)
[2018-04-28] MEDS: DIGOXIN 0.125 MG TABLET PO SCH (11:04)
[2018-04-28] MEDS: METOPROLOL TARTRATE 25 MG TABLET PO SCH (11:04)
[2018-04-28] MEDS: ASPIRIN 81 MG TABLET, CHEWABLE PO SCH (11:04)
[2018-04-28] MEDS: FUROSEMIDE INJ/PF 20 MG/2 ML SDV IV SCH (11:05)
[2018-04-28] MEDS: ERYTHROMYCIN 0.5% OPH OINTMENT 3.5 GM TUBE OU SCH ×2 (11:06→18:05)
[2018-04-28] MEDS ORDERED: POTASSIUM CHLORIDE 20 MEQ/15 ML UDCUP PO SCH (12:00)
--- NOTE | 2018-04-28 16:08 | PDOC TRANSFER SUMMARY ---
General - Admit/Disc Date/PCP Admission Date/Primary Care Provider: 04/09/18 04:24 HILARIA ALFARO MD Direct Marketing Executive: Dr. Finney Vp Strategy: Dr. Moura Discharge Date: 04/28/18 - Discharge Diagnosis (1) Acute respiratory failure with hypoxia and hypercapnia Is this a current diagnosis for this admission?: Yes Summary: The patient is still requiring oxygen. However his acute respiratory failure has resolved. His acute respiratory failure is multifactorial secondary to sepsis, pneumonia, decompensated heart failure and atrial fibrillation with rapid ventricular response. The patient will be discharged on oxygen with BiPAP at night. His is bringing his home BiPAP machine to rehab. (2) Pneumonia Is this a current diagnosis for this admission?: Yes Summary: Concerns for gram negatives and MRSA. This seems most likely to be an aspiration pneumonia. He is completed a course of broad-spectrum IV antibiotics. Continue modified diet at facility. (3) Left lower lobe atelectasis/plug Is this a current diagnosis for this admission?: Yes Summary: Resolved (4) Atrial fibrillation with rapid ventricular response Is this a current diagnosis for this admission?: Yes Summary: Resolved. Currently rate controlled (5) Acute on chronic systolic CHF (congestive heart failure) Is this a current diagnosis for this admission?: Yes Summary: He has been successfully diuresed with IV Lasix. He will be on 40 mg of Lasix twice daily at the facility. He should have a chemistry panel drawn next week. (6) Diabetes mellitus type 2 in obese Is this a current diagnosis for this admission?: Yes Summary: Stable. (7) COPD (chronic obstructive pulmonary disease) Is this a current diagnosis for this admission?: Yes Summary: No issues on the day of discharge. No evidence of exacerbation (8) Dysphagia Is this a current diagnosis for this admission?: Yes Summary: Continue modified diet. He is profoundly weak after this acute illness (9) Critical illness myopathy Is this a current diagnosis for this admission?: Yes Summary: Slowly improving. He is going to subacute rehabilitation at discharge (10) Morbid obesity Is this a current diagnosis for this admission?: Yes Summary: Encourage good p.o. intake at this point (11) Conjunctivitis Is this a current diagnosis for this admission?: Yes Summary: Improving (12) Anemia Is this a current diagnosis for this admission?: Yes Summary: Normocytic anemia consistent with chronic disease. (13) Hypokalemia Is this a current diagnosis for this admission?: Yes Summary: Repleted on the day of discharge. This was quite mild. Again he will need a chemistry panel drawn next week. Continue p.o. supplementation (14) Hypomagnesemia Is this a current diagnosis for this admission?: Yes Summary: Repleted and resolved - Additional Information Resuscitation Status: Do Not Resuscitate Discharge Diet: Diabetic, Other (Comments) - Mechanically soft meats with thin liquids Discharge Activity: Activity As Tolerated, Other - PT, OT daily Prescriptions: Oxycodone HCl [Oxy-Ir 5 mg Tablet] 5 mg PO Q4HP PRN #18 tablet PRN Reason: Furosemide [Lasix 20 mg Tablet] 20 mg PO BID #30 tablet Furosemide [Lasix 40 mg Tablet] 40 mg PO BID #30 tablet Home Medications: Aspirin [Adult Low Dose Aspirin EC] 81 mg PO DAILY 03/03/18 Simvastatin [Zocor 20 mg Tablet] 20 mg PO QHS 03/03/18 Acetaminophen [Tylenol 325 mg Tablet] 650 mg PO Q4HP PRN tablet 04/28/18 Acetylcysteine [Mucomist 20% Soln 800 mg/4 mL] 600 mg NEB RTBID vial 04/28/18 Dextrose 50%-Water [Dextrose Inj 50% Syringe (25 gm/50 ml)] 12.5 gm IV PRN PRN disp.syrin 04/28/18 Dextrose 50%-Water [Dextrose Inj 50% Syringe (25 gm/50 ml)] 25 gm IV PRN PRN disp.syrin 04/28/18 Dextrose [Glutose 40% Gel 15 gm Tube] 15 gm PO PRN PRN tube 04/28/18 Dextrose [Glutose 40% Gel 15 gm Tube] 30 gm PO PRN PRN tube 04/28/18 Digoxin [Lanoxin 0.125 mg Tablet] 0.125 mg PO DAILY tablet 04/28/18 Erythromycin Base [E-Mycin 0.5% Oph Ointment 3.5 gm] 1 applic OU BID tube 04/28/18 Furosemide [Lasix 20 mg Tablet] 20 mg PO BID #30 tablet 04/28/18 Furosemide [Lasix 40 mg Tablet] 40 mg PO BID #30 tablet 04/28/18 Insulin Lispro [Humalog Insulin (Lispro) 100 unit/mL] 0 - 12 unit SUBCUT ACHS unit 04/28/18 Ipratropium/Albuterol Sulfate [Duoneb 3 ml Ampul] 3 ml NEB RTQ6 vial.neb 04/28/18 Levalbuterol HCl [Xopenex Neb 0.63 mg/3 ml Ampul] 0.63 mg NEB RTQ4HP PRN vial.neb 04/28/18 Magnesium Oxide [Mag-Ox 400 mg Tablet] 400 mg PO DAILY tablet 04/28/18 Metoprolol Tartrate [Lopressor 25 mg Tablet] 25 mg PO Q12 tablet 04/28/18 Oxycodone HCl [Oxy-Ir 5 mg Tablet] 5 mg PO Q4HP PRN #18 tablet 04/28/18 Potassium Chloride [Kaon-Cl 20 Meq/15 ml Udcup] 40 meq PO DAILY udc 04/28/18 History of Present Illness Admission Date/PCP: 04/09/18 04:24 HILARIA ALFARO MD History of Present Illness: THEODORE SON is a 67 year old male who [facility] was undergoing rehabilitation for acute shortness of breath. Hospital Course Hospital Course: Please see complete medical record for details. This is been a prolonged hospitalization and this will be a brief summary. The patient is a 67-year-old male with multiple comorbidities as summer d above. He had recently been discharged from [facility] after a 2-week stay where he was treated for heart failure. He was brought to the emergency room with significant shortness of breath. At the time of admission he had severe dyspnea which failed to respond to BiPAP. He also had evidence of septic shock requiring pressors in the ICU. At the time of admission. The patient alert later was emergently intubated. He was found to have evidence of a right lower lobe pneumonia as well as a right pleural effusion which required chest tube drainage. Sputum culture was positive for Pseudomonas. He underwent emergent bronchoscopy for right lower lobe collapse due to mucous plugging. Eventually he was extubated and weaned to BiPAP. He also was treated for acute on chronic heart failure likely due to the volume resuscitation for his septic shock present on admission. He has been slow to be weaned off of the BiPAP. He developed critical illness polymyopathy and is significantly debilitated after this acute illness. He has now been off of BiPAP and stable on a nasal cannula for the past couple of days. At this point it is felt that his acute issues have been appropriately treated and the would like to try a trial of rehab to see if the patient can make any progress. Yesterday I had a long discussion with the patient's . She understands the severity of his condition and the fact that it is going to be very difficult for him to recuperate. She and her family would like to pursue subacute rehabilitation to give him the fighting chance of coming back. She knows the chances of this are slim. If he continues to decline she would like to take him home with home hospice services. She actually would like to take him back if she feels like he is not making progress she will discussed with the facility going directly home with hospice. Should he get pneumonia or something acute she wants to discuss in the emergency room with the hospitalist I transition to comfort measures rather than aggressively treating. At this point this seems quite reasonable. I saw the patient today. He remains somewhat confused he is pleasantly confused and at his cognitive baseline. He will be discharged today and poor but stable condition. Physical Exam Vital Signs: Temp Pulse Resp BP Pulse Ox 98.3 F 63 16 134/67 H 94 04/28/18 11:42 04/28/18 14:02 04/28/18 14:02 04/28/18 11:42 04/28/18 15:19 Intake & Output 04/27/18 04/28/18 04/29/18 06:59 06:59 06:59 Intake Total 811 318 237 Output Total 2275 2300 350 Balance -1464 -1982 -113 Weight 122.9 kg 120 kg General appearance: PRESENT: no acute distress, obese, other - Chronically ill- appearing Head exam: PRESENT: atraumatic, normocephalic Ear exam: PRESENT: normal external ear exam Mouth exam: PRESENT: moist, tongue midline Respiratory exam: PRESENT: decreased breath sounds - In the lower bases otherwise he has some scattered coarse rhonchi anteriorly Cardiovascular exam: PRESENT: RRR. ABSENT: diastolic murmur, rubs, systolic murmur GI/Abdominal exam: PRESENT: normal bowel sounds, soft. ABSENT: distended, guarding, mass, rebound, tenderness Rectal exam: PRESENT: deferred Musculoskeletal exam: ABSENT: ambulatory Neurological exam: PRESENT: alert, awake, oriented to person, oriented to place, CN II-XII grossly intact. ABSENT: oriented to time, oriented to situation, motor sensory deficit Psychiatric exam: PRESENT: appropriate affect, normal mood. ABSENT: homicidal ideation, suicidal ideation Skin exam: PRESENT: dry, intact, warm. ABSENT: cyanosis, rash Results Laboratory Results: 04/28/18 05:35 04/28/18 05:35 04/28/18 04/28/18 05:35 05:35 WBC 8.0 RBC 3.35 L Hgb 9.4 L Hct 27.9 L MCV 83 MCH 28.1 MCHC 33.7 RDW 22.9 H Plt Count 212 Seg Neutrophils % 78.0 Lymphocytes % 7.7 L Monocytes % 9.4 Eosinophils % 4.2 Basophils % 0.7 Absolute Neutrophils 6.2 Absolute Lymphocytes 0.6 Absolute Monocytes 0.7 Absolute Eosinophils 0.3 Absolute Basophils 0.1 Sodium 135.4 L Potassium 3.3 L Chloride 93 L Carbon Dioxide 37 H Anion Gap 5 BUN 12 Creatinine 0.72 Est GFR ( Amer) > 60 Est GFR (Non-Af Amer) > 60 Glucose 113 H Calcium 8.2 L Magnesium 1.4 L 04/08/18 04/08/18 04/09/18 21:58 21:58 04:15 Creatine Kinase < 20 L CK-MB (CK-2) Troponin I 0.038 NT-Pro-B Natriuret Pep 5370 H 04/09/18 04/09/18 04/09/18 04:15 10:44 10:44 Creatine Kinase < 20 L CK-MB (CK-2) 1.06 0.64 Troponin I 0.034 0.046 NT-Pro-B Natriuret Pep 04/09/18 04/09/18 04/14/18 15:50 15:50 04:28 Creatine Kinase 30 L CK-MB (CK-2) 0.45 Troponin I 0.050 NT-Pro-B Natriuret Pep 9830 H Impressions: Chest Ultrasound 04/13/18 09:30 IMPRESSION: No thoracentesis was performed. Transfer Plan - Disposition Transfer Plan: He will be transferred today to subacute rehabilitation in poor but stable condition. - Time Spent with Patient Time spent with patient: Greater than 30 Minutes Qualifiers - * PATIENT BEING DISCHARGED WITH ANY OF THE FOLLOWING DIAGNOSIS: Heart Failure HF Pt being discharged on ACEI for LVEF less than 40%?: Yes HF Pt being discharged on ARBS for LVEF less than 40%?: No Reason(s) for not prescribing ARBS:: Not indicated - Already on an VIRAJ inhibitor HF Pt with Afib discharged with Warfarin?: No Reason(s) for not prescribing Warfarin:: Medical Contraindication HF Pt discharged on evidence-based Beta Michaela:: Yes
[2018-04-28 16:30] VITALS: BP 150/73
== END 2018-04-28 19:35 | DRG 870 ==
LOC: ER 21:29 → EH 04-09 04:24 → ICU 04-09 18:45 → 3S 04-25 20:25
PROVIDERS: ADMIT Emergency Medicine; ATTEND Emergency Medicine
PROC: 5A09357 Assistance with Respiratory Ventilation, Less than 24 Consecutive Hours, Continuous Positive Airway Pressure (ICD-10-PCS; 2018-04-08)
PROC: 5A1955Z Respiratory Ventilation, Greater than 96 Consecutive Hours (ICD-10-PCS; principal; 2018-04-09)
PROC: 3E0F73Z Introduction of Anti-inflammatory into Respiratory Tract, Via Natural or Artificial Opening (ICD-10-PCS; 2018-04-09)
PROC: 0BH17EZ Insertion of Endotracheal Airway into Trachea, Via Natural or Artificial Opening (ICD-10-PCS; 2018-04-09)
PROC: 05H533Z Insertion of Infusion Device into Right Subclavian Vein, Percutaneous Approach (ICD-10-PCS; 2018-04-09)
PROC: 30233N1 Transfusion of Nonautologous Red Blood Cells into Peripheral Vein, Percutaneous Approach (ICD-10-PCS; 2018-04-10)
PROC: 0W9B30Z Drainage of Left Pleural Cavity with Drainage Device, Percutaneous Approach (ICD-10-PCS; 2018-04-14)
PROC: 0B9J8ZX Drainage of Left Lower Lung Lobe, Via Natural or Artificial Opening Endoscopic, Diagnostic (ICD-10-PCS; 2018-04-15)
PROC: 5A09557 Assistance with Respiratory Ventilation, Greater than 96 Consecutive Hours, Continuous Positive Airway Pressure (ICD-10-PCS; 2018-04-22)
PROC: 3E0F73Z Introduction of Anti-inflammatory into Respiratory Tract, Via Natural or Artificial Opening (ICD-10-PCS; 2018-04-28)
DX: A41.9 Sepsis, unspecified organism (principal); J15.212 Pneumonia due to Methicillin resistant Staphylococcus aureus; J69.0 Pneumonitis due to inhalation of food and vomit; I50.23 Acute on chronic systolic (congestive) heart failure; R65.21 Severe sepsis with septic shock; J96.21 Acute and chronic respiratory failure with hypoxia; J96.22 Acute and chronic respiratory failure with hypercapnia; J15.1 Pneumonia due to Pseudomonas; J44.0 Chronic obstructive pulmonary disease with (acute) lower respiratory infection; G72.81 Critical illness myopathy; T17.890A Other foreign object in other parts of respiratory tract causing asphyxiation, initial encounter; C85.90 Non-Hodgkin lymphoma, unspecified, unspecified site; I13.0 Hypertensive heart and chronic kidney disease with heart failure and stage 1 through stage 4 chronic kidney disease, or unspecified chronic kidney disease; I45.2 Bifascicular block; J90 Pleural effusion, not elsewhere classified; E66.2 Morbid (severe) obesity with alveolar hypoventilation; Z68.41 Body mass index [BMI] 40.0-44.9, adult; Z78.1 Physical restraint status; B96.4 Proteus (mirabilis) (morganii) as the cause of diseases classified elsewhere; B96.5 Pseudomonas (aeruginosa) (mallei) (pseudomallei) as the cause of diseases classified elsewhere; Z66 Do not resuscitate; I48.91 Unspecified atrial fibrillation; J98.09 Other diseases of bronchus, not elsewhere classified; E87.6 Hypokalemia; E83.42 Hypomagnesemia; I25.10 Atherosclerotic heart disease of native coronary artery without angina pectoris; E11.22 Type 2 diabetes mellitus with diabetic chronic kidney disease; N18.9 Chronic kidney disease, unspecified; I25.5 Ischemic cardiomyopathy; D63.1 Anemia in chronic kidney disease; J43.2 Centrilobular emphysema; E78.5 Hyperlipidemia, unspecified; H10.503 Unspecified blepharoconjunctivitis, bilateral; I48.2 Chronic atrial fibrillation; Z79.1 Long term (current) use of non-steroidal anti-inflammatories (NSAID); Z79.899 Other long term (current) drug therapy; Z79.4 Long term (current) use of insulin; Z87.891 Personal history of nicotine dependence; Z82.49 Family history of ischemic heart disease and other diseases of the circulatory system; Z83.6 Family history of other diseases of the respiratory system; Z83.3 Family history of diabetes mellitus; Z80.9 Family history of malignant neoplasm, unspecified
CPT/HCPCS: 31624; 36415; 36430; 51702; 71045; 76604; 80048; 80053; 80162; 80202; 81001; 82040; 82150; 82550; 82553; 82565; 82803; 82945; 82962; 83605; 83615; 83735; 83880; 83986; 84100; 84155; 84157; 84439; 84443; 84481; 84484; 85025; 85027; 85610; 86850; 86900; 86901; 86920; 87015; 87040; 87070; 87075; 87077; 87086; 87088; 87101; 87116; 87186; 87205; 87206; 88305; 89050; 93005; 93010; 94002; 94003; 94640; 94660; 94667; 94668; 94799; 96365; 96366; 96368; 96375; 99291; 99292; A4649; C1769; J0330; J0360; J0692; J1100; J1642; J1644; J1815; J1940; J1956; J2060; J2250; J2370; J2704; J3010; J3370; J3490; J7030; J7050; J7060; J7620; J7685; P9016; P9047; S0164

== ENCOUNTER 2018-06-21 03:09 | Inpatient (IN) | payer MEDICARE, BC ==
[~2018-06-21 03:09] MED LIST changes: +ETOMIDATE INJ/PF 20 MG/10 ML SDV IV ONE; -KETOROLAC TROMETHAMINE 0.45% 4 DROP/0.4 ML DROPERETTE OS PRN; +SUCCINYLCHOLINE CHLORIDE INJ 200 MG/10 ML VIAL ONE
[2018-06-21] MEDS ORDERED: NORMAL SALINE 500 ML IV ONE ×2 (03:15→07:32)
--- NOTE | 2018-06-21 03:23 | ER Document Report ---
ED General - General Stated Complaint: TROUBLE BREATHING Time Seen by Provider: 06/21/18 03:14 Primary Care Provider: SRAVAN MORGAN MD [NO LOCAL MD] - Follow up as needed Notes: Patient is a 68-year-old male with a history of dementia, COPD, CHF. Presents with difficulty breathing. Per medics arrived he was hypoxic. He usually wears a BiPAP at night but was not wearing it. He was recently [facility] from the senior living just a few weeks ago. Paramedics placed him on CPAP. Oxygen saturations never got above 88%. No fevers or last few days. No vomiting. History is limited at this time due to patient being very ill and unable to contribute to history. TRAVEL OUTSIDE OF THE [place] IN LAST 30 DAYS: No - Related Data Allergies/Adverse Reactions: No Known Allergies Allergy (Verified 06/21/18 04:09) Past Medical History - Social History Smoking Status: Former Smoker Frequency of alcohol use: None Drug Abuse: None Family History: CAD, COPD, DM, Hypertension, Malignancy - Past Medical History Cardiac Medical History: Reports: Hx Congestive Heart Failure, Hx Hypercholesterolemia, Hx Hypertension Denies: Hx Heart Attack Pulmonary Medical History: Reports: Hx COPD Denies: Hx Asthma - ? Neurological Medical History: Denies: Hx Cerebrovascular Accident, Hx Seizures Endocrine Medical History: Reports: Hx Diabetes Mellitus Type 2. Denies: Hx Diabetes Mellitus Type 1, Hx Hyperthyroidism, Hx Hypothyroidism Renal/ Medical History: Denies: Hx Peritoneal Dialysis Malignancy Medical History: Reports Hx Lymphoma GI Medical History: Denies: Hx Hepatitis, Hx Hiatal Hernia, Hx Ulcer Musculoskeletal Medical History: Reports Hx Arthritis, Reports Hx Musculoskeletal Deformity, Reports Hx Musculoskeletal Trauma Traumatic Medical History: Reports: Hx Fractures. Denies: Hx Traumatic Brain Injury Infectious Medical History: Denies: Hx Hepatitis, Hx HIV Past Surgical History: Reports: Hx Neurologic Surgery - Spinal tumor removed, Hx Testicular Surgery - James's gangrene, Other - Neurosurgical removal of a spinal tumor. Denies: Hx Open Heart Surgery, Hx Pacemaker - Immunizations Hx Diphtheria, Pertussis, Tetanus Vaccination: Yes Review of Systems - Review of Systems -: Yes ROS unobtainable due to patient's medical condition - History is limited due to patient's unable to answer most questions. Physical Exam - Vital signs Vitals: Temp Pulse 101.6 F H 122 H 06/21/18 03:10 06/21/18 03:10 - Notes Notes: General Appearance: Well nourished, somnolent, cooperative, moderate acute distress, no obvious discomfort. Vitals: reviewed, See vital signs table. Head: no swelling or tenderness to the head Eyes: PERRL, EOMI, Conjuctiva clear Mouth: No decreasd moisture Lungs: No wheezing, some left-sided rales, No rhonci, moderate accessory muscle use, fair air exchange bilaterally. Heart: Tachycardic rate, Regular rythm, No murmur, no rub Abdomen: Normal BS, soft, No rigidity, No abdominal tenderness, No guarding, no rebound, no abdominal masses, no organomegaly Extremities: good pulses in all extremities, no swelling or tenderness in the extremities, 1+ bilateral lower extremity edema. Skin: warm, dry, appropriate color, no rash Neuro: Patient somnolent but does follow some commands. He will open his eyes when asked him to. He will move his arms when I asked him to. He currently has BiPAP mask on. He will not answer questions verbally. Course - Re-evaluation Re-evalutation: 06/21/18 05:09 Patient had become more altered and started become more hyper hypoxic. His FiO2 initially was only 50% on the BiPAP but then with touching up to 100% he was not improving. Therefore decided to go forward with intubation. I did do repeat chest x-ray and there is no evidence of pneumothorax. Patient placed on ventila tor and O2 saturations now 98%. I will contact the hospitalist about admission. 06/21/18 06:46 Patient's blood pressure continued to drop with the sedation. Therefore placed central line and start the patient on levo fed. I did speak with Dr. Garner who says he will pass of the admission to the day team who will come down and evaluate the patient for admission. Patient has urosepsis. I suspect he also has pneumonia on chest x-ray. He has been given antibiotics. - Vital Signs Vital signs: Temp Pulse Resp BP Pulse Ox 101.6 F H 122 H 16 100/60 90 L 06/21/18 03:10 06/21/18 03:10 06/21/18 05:58 06/21/18 05:58 06/21/18 05:58 - Laboratory Result Diagrams: 06/21/18 03:20 06/21/18 03:20 Laboratory results interpreted by me: 06/21/18 06/21/18 06/21/18 03:20 03:20 03:20 WBC 22.6 H RBC 3.73 L Hgb 10.6 L Hct 34.4 L MCHC 30.9 L RDW 18.5 H Seg Neuts % (Manual) 84 H Lymphocytes % (Manual) 6 L Abs Neuts (Manual) 19.7 H Abs Monocytes (Manual) 1.6 H Carbonic Acid ABG pH ABG pCO2 ABG pO2 ABG HCO3 ABG Total CO2 ABG O2 Saturation VBG pH 7.24 L VBG pCO2 82.4 H* VBG HCO3 34.5 H Potassium 5.9 H Carbon Dioxide 34 H BUN 22 H Glucose 183 H Calcium 8.2 L AST 14 L ALT 17 L Alkaline Phosphatase 135 H Total Protein 6.0 L Albumin 3.3 L Urine Protein Ur Leukocyte Esterase Digoxin 0.63 L 06/21/18 06/21/18 03:30 04:53 WBC RBC Hgb Hct MCHC RDW Seg Neuts % (Manual) Lymphocytes % (Manual) Abs Neuts (Manual) Abs Monocytes (Manual) Carbonic Acid 2.62 H ABG pH 7.18 L* ABG pCO2 87.0 H* ABG pO2 75.1 L ABG HCO3 31.7 H ABG Total CO2 34.4 H ABG O2 Saturation 90.5 L VBG pH VBG pCO2 VBG HCO3 Potassium Carbon Dioxide BUN Glucose Calcium AST ALT Alkaline Phosphatase Total Protein Albumin Urine Protein 100 H Ur Leukocyte Esterase LARGE H Digoxin - EKG Interpretation by Me Additional EKG results interpreted by me: 06/21/18 03:22 EKG is reviewed and interpreted by me. EKG shows sinus tachycardia with rate [address] segment changes comparison to previous EKG from 04/15 2018. Patient does have a right bundle branch block which is old in comparison to her previous EKG as well. IA interval is within normal range. QRS duration is prolonged. QTc interval is within normal range. Procedures - Central Line Left Internal jugular Consent obtained: Yes Central line pre-insertion: Sterile PPE donned, Chloraprep applied, Sterile drapes applied Central line lumen type: Triple Anesthetic type: 1% Lidocaine mL's of anesthesia: 3 Ultrasound guided: Yes CM at insertion site: 17 Line secured with sutures: Yes Central line post-insertion: Blood return from lumens, Biopatch applied, Sutured, Sterile dressing applied, Position confirmed w/ CXR Number of attempts: 1 Complications: No - Intubation Orotracheal Airway evaluation: Obese Mallampati Classification: Class 2 Medications: Etomidate, Succinylcholine Intubation method: Orotracheal Blade type: Padilla Blade size: 4 Equipment used: Glidescope ETT size: 8.0 ETT secured at: Lips ETT secured at (cm): 24 Breath Sounds after Intubation: Equal End tidal CO2 confirmed: Yes Post Intubation Xray: Yes - appropriate positioning Intubation Complications: No complications Critical Care Note - Critical Care Note Total time excluding time spent on procedures (mins): 65 Comments: Critical care time for this patient not including time spent in procedures approximately 65 minutes due to treatment of sepsis, hypotension, management sedation for ventilator, management of pressors for hypotension. Discharge - Discharge Clinical Impression: Respiratory acidosis, Morbid obesity Sepsis Qualifiers: Sepsis type: sepsis due to unspecified organism Qualified Code(s): A41.9 - Sepsis, unspecified organism UTI (urinary tract infection) Qualifiers: Urinary tract infection type: site unspecified Hematuria presence: without hematuria Qualified Code(s): N39.0 - Urinary tract infection, site not specified COPD (chronic obstructive pulmonary disease) with emphysema Qualifiers: Emphysema type: unspecified Qualified Code(s): J43.9 - Emphysema, unspecified Condition: Serious Disposition: ADMITTED INPATIENT Admitting Provider: Patsy (Hospitalist) Unit Admitted: ICU Referrals: SRAVAN MORGAN MD [NO LOCAL MD] - Follow up as needed
[2018-06-21] MEDS ORDERED: ACETAMINOPHEN 650 MG SUPP.RECT PR ONE (03:24)
[2018-06-21 03:36] LABS: HEMATOCRIT 34.4 % (37.9-51.0); HEMOGLOBIN 10.6 g/dL (13.5-17.0); MEAN CORPUSCULAR HEMOGLOBIN 28.5 pg (27.0-33.4); MEAN CORPUSCULAR HGB CONC 30.9 g/dL (32.0-36.0); MEAN CORPUSCULAR VOLUME 92 fl (80-97); PLATELET COUNT 357 10^3/uL (150-450); RED BLOOD COUNT 3.73 10^6/uL (4.35-5.55); RED CELL DISTRIBUTION WIDTH 18.5 % (11.5-14.0); WHITE BLOOD COUNT 22.6 10^3/uL (4.0-10.5)
[2018-06-21 03:45] LABS: VENOUS BLOOD BASE EXCESS 4.3 mmol/L; VENOUS BLOOD HCO3 34.5 mmol/L (20-32); VENOUS BLOOD PH 7.24 (7.30-7.42)
[2018-06-21 03:48] LABS: VENOUS BLOOD PCO2 82.4 mmHg (35-63)
[2018-06-21 03:51] LABS: ABSOLUTE LYMPHOCYTES# (MANUAL) 1.4 10^3/uL (0.5-4.7); ABSOLUTE MONOCYTES # (MANUAL) 1.6 10^3/uL (0.1-1.4); ABSOLUTE NEUTROPHILS# (MANUAL) 19.7 10^3/uL (1.7-8.2); BAND NEUTROPHILS % (MANUAL) 3 % (3-5); BASOPHILS % (MANUAL) 0 % (0-2); EOSINOPHILS % (MANUAL) 0 % (0-6); LYMPHOCYTES % (MANUAL) 6 % (13-45); MONOCYTES % (MANUAL) 7 % (3-13); SEGMENTED NEUTROPHILS % (MAN) 84 % (42-78); TOTAL CELLS COUNTED 100
[2018-06-21 03:52] LABS: ANISOCYTOSIS 2+; HYPOCHROMASIA SLIGHT; PLATELET COMMENT ADEQUATE; POIKILOCYTOSIS 1+; POLYCHROMASIA SLIGHT; STOMATOCYTES 1+
[2018-06-21] MEDS ORDERED: VANCOMYCIN HCL INJ 1000 MG VIAL IV ONE (03:52)
[2018-06-21] MEDS ORDERED: PIPERACILLIN/TAZOBACTAM 4.5 GM VIAL IV ONE (03:52)
[2018-06-21 03:54] LABS: ALANINE AMINOTRANSFERASE 17 U/L (21-72); ALBUMIN 3.3 g/dL (3.5-5.0); ALKALINE PHOSPHATASE 135 U/L (38-126); ANION GAP 8 (5-19); ASPARTATE AMINO TRANSFERASE 14 U/L (17-59); BILIRUBIN,DIRECT 0.3 mg/dL (0.0-0.4); BILIRUBIN,TOTAL 0.4 mg/dL (0.2-1.3); BLOOD UREA NITROGEN 22 mg/dL (7-20); CALCIUM 8.2 mg/dL (8.4-10.2); CARBON DIOXIDE 34 mmol/L (22-30); CHLORIDE 101 mmol/L (98-107); DIGOXIN 0.63 ng/mL (0.8-2.0); GLUCOSE 183 mg/dL (75-110); POTASSIUM 5.9 mmol/L (3.6-5.0); SODIUM 143.4 mmol/L (137-145)
--- NOTE | 2018-06-21 04:01 | RADIOLOGY REPORT (SQ) ---
EXAM DESCRIPTION: XR CHEST 1 VIEW COMPLETED DATE/TME: 06/21/2018 03:14 CLINICAL HISTORY: 68 years, Male, fever, dyspnea COMPARISON: 04/26/2018 chest x-ray NUMBER OF VIEWS: 1 TECHNIQUE: Portable chest LIMITATIONS: None. FINDINGS: Stable cardiomegaly and postsurgical change. Lungs are clear. No pneumothorax. Comminuted fracture of the proximal left humerus partially seen. IMPRESSION: Cardiomegaly. Lungs are clear copyright 2010 [employer]- All Rights Reserved
[2018-06-21] MEDS ORDERED: MIDAZOLAM HCL 50 MG/100 ML RTUINJ ONE (04:53)
[2018-06-21] MEDS ORDERED: SUCCINYLCHOLINE CHLORIDE INJ 200 MG/10 ML VIAL IV ONE (05:08)
[2018-06-21] MEDS ORDERED: ETOMIDATE INJ/PF 20 MG/10 ML SDV IV ONE (05:08)
[2018-06-21] MEDS: MIDAZOLAM HCL 50 MG/100 ML RTUINJ IV PRN ×4 (05:11→15:15)
--- NOTE | 2018-06-21 05:18 | RADIOLOGY REPORT (SQ) ---
EXAM DESCRIPTION: XR CHEST 1 VIEW COMPLETED DATE/TME: 06/21/2018 00:00 CLINICAL HISTORY: 68 years, Male, DECREASED RESPIRATORY PATTERN COMPARISON: Prior chest x-ray from earlier on today's date NUMBER OF VIEWS: 1 TECHNIQUE: Portable chest LIMITATIONS: None. FINDINGS: Stable cardiac megaly and postsurgical change. Volume loss of the right hemithorax. New patchy right basilar infiltrate. IMPRESSION: Cardiomegaly with new patchy right basilar infiltrate copyright 2010 [employer]- All Rights Reserved
[2018-06-21 05:21] LABS: ARTERIAL BLOOD BASE EXCESS 1.3 mmol/L; ARTERIAL BLOOD H2CO3 2.62 mmol/L (1.05-1.35); ARTERIAL BLOOD HCO3 31.7 mmol/L (20-24); ARTERIAL BLOOD O2 SATURATION 90.5 % (94-98); ARTERIAL BLOOD PO2 75.1 mmHg (80-100); ARTERIAL BLOOD TOTAL CO2 34.4 mmol/L (23-27)
[2018-06-21 05:22] LABS: ARTERIAL BLOOD FIO2 100% BIPAP
[2018-06-21 05:23] LABS: ARTERIAL BLOOD PH 7.18 (7.35-7.45)
[2018-06-21 05:23] LABS: APPEARANCE,URINE TURBID; BILIRUBIN,URINE NEGATIVE (NEGATIVE); GLUCOSE, URINE NEGATIVE (NEGATIVE); KETONES,URINE NEGATIVE (NEGATIVE); LEUKOCYTE ESTERASE,URINE LARGE (NEGATIVE); NITRITE,URINE NEGATIVE (NEGATIVE); PROTEIN,URINE 100 mg/dL (NEGATIVE); UROBILINOGEN,URINE NEGATIVE mg/dL (<2.0)
[2018-06-21 05:29] LABS: COLOR,URINE DARK YELLOW
[2018-06-21] MEDS ORDERED: NOREPINEPHRINE BITARTRATE INJ/PF 4 MG/4 ML SDV IV ONE ×2 (05:37→11:07)
[2018-06-21] MEDS: DEXTROSE 5%-WATER 250 ML with NOREPINEPHRINE BITARTRATE 4 MG IV PRN ×6 (05:46→16:22)
--- NOTE | 2018-06-21 05:46 | RADIOLOGY REPORT (SQ) ---
EXAM DESCRIPTION: XR CHEST 1 VIEW COMPLETED DATE/TME: 06/21/2018 00:00 CLINICAL HISTORY: ETT/NG TUBE PLACEMENT COMPARISON: 06/21/2018 FINDINGS: Single frontal view of the chest. Tubes and lines: Endotracheal tube tip 3 cm above the gerhard. NG tube with tip below the diaphragm. Low lung volumes. Cardiomediastinal silhouette: Stable Lungs: Bibasilar airspace opacity. No pneumothorax or large effusion. Bones: Stable. Upper abdomen: Stable. IMPRESSION: 1. Endotracheal tube in appropriate position. Otherwise stable appearance of the chest are
[2018-06-21] MEDS ORDERED: FENTANYL CITRATE INJ/PF 100 MCG/2 ML AMPUL ONE (06:01)
[2018-06-21] MEDS ORDERED: FENTANYL CITRATE INJ/PF 100 MCG/2 ML AMPUL IV ONE (06:02)
[2018-06-21] MEDS ORDERED: SODIUM BICARBONATE 8.4% INJ 50 MEQ/50 ML DISP.SYRIN ONE (06:17)
[2018-06-21] MEDS ORDERED: NORMAL SALINE 1000 ML 500 ML IV ONE (06:32)
--- NOTE | 2018-06-21 06:59 | EKG REPORT ---
SEVERITY:- ABNORMAL ECG - SINUS OR ECTOPIC ATRIAL TACHYCARDIA ATRIAL PREMATURE COMPLEX RIGHT BUNDLE BRANCH BLOCK INFERIOR INFARCT, POSSIBLY ACUTE : Confirmed by: Harjinder Pierce 21-Jun-2018 06:58:05
[2018-06-21] MEDS ORDERED: DEXTROSE 5%-WATER 250 ML with PHENYLEPHRINE HCL 40 MG IV PRN ×2 (07:47)
[2018-06-21] MEDS ORDERED: PHENYLEPHRINE HCL INJ/PF 10 MG/1 ML SDV ONE (07:53)
--- NOTE | 2018-06-21 07:56 | RADIOLOGY REPORT (SQ) ---
CLINICAL HISTORY: CL PLACEMENT COMPARISON: June 21, 2018. TECHNIQUE: XR CHEST 1 VIEW 06/21/2018 12:00 AM CDT FINDINGS: Cardiac silhouette is normal in size. There is consolidation of much of the right upper lobe with subpleural total consolidation of the right lower and middle lobes. There is a right pleural effusion. There is no pneumothorax. There are no acute osseous findings. Endotracheal and nasogastric tubes are unchanged. New left IJ central line tip is in the left brachiocephalic vein. IMPRESSION: No pneumothorax following left IJ central line placement. Extensive right-sided pneumonia, progressive.
[2018-06-21] MEDS ORDERED: DEXTROSE 40% GEL 15 GM TUBE PO PRN ×4 (08:15→08:33)
[2018-06-21] MEDS ORDERED: NORMAL SALINE 1000 ML 1,000 ML IV PRN (08:15)
[2018-06-21] MEDS ORDERED: PROMETHAZINE HCL INJ 25 MG/1 ML VIAL IV PRN (08:15)
[2018-06-21] MEDS ORDERED: PHARMACY COMMUNICATION ORDER MC NR (08:15)
[2018-06-21] MEDS ORDERED: ONDANSETRON HCL INJ/PF 4 MG/2 ML SDV IV PRN ×2 (08:15→14:30)
[2018-06-21] MEDS ORDERED: DEXTROSE 50%-WATER 25 GM/50 ML DISP.SYRIN IV PRN ×4 (08:15→08:33)
[2018-06-21] MEDS ORDERED: GLUCAGON,HUMAN RECOMB 1 MG INJ SUBCUT PRN (08:15)
[2018-06-21] MEDS ORDERED: PIPERACILLIN/TAZOBACTAM 3.375 GM VIAL IV SCH (08:30)
[2018-06-21] MEDS ORDERED: GLUCAGON,HUMAN RECOMB 1 MG INJ IM PRN (08:33)
--- NOTE | 2018-06-21 08:41 | PDOC H&P ---
History of Present Illness Admission Date/PCP: 06/21/18 06:54 HILARIA ALFARO MD Patient complains of: Altered mental status and respiratory distress History of Present Illness: THEODORE SON is a 68 year old male with history of dementia, COPD, hypertension, congestive heart failure, dm,obstructive sleep apnea history of lymphoma brought to the emergency room with complaints of shortness of breath. As per his patient is not doing well since yesterday. Around 2:00 this morning patient looks confused has a difficulty in breathing she called the EMS EMS came and checked on him and said everything is okay and left again patient is continued to have difficulty in breathing few hours later she called 9 1 over again to bring the patient to the hospital because she is unresponsive. The emergency room work-up was done initially is on BiPAP pulse oxes are not improving the proceeded with intubation. In the EMS paramedics put him on CPAP and oxygen saturations stayed below 88%. In the emergency room as mentioned above he was placed on BiPAP on 50% oxygen pulse oxes are not improving the proceeded with intubation. Chest x-ray shows cardiomegaly no evidence of pleural effusion pulmonary edema or pneumonia. But at the same time patient has a WBC count of 22,600 and fever of 101.8. At this time notes of no source of infection was found. At the time of my examination patient was intubated on SIMV with 90% oxygen tidal volume of 500 PEEP of 5 respiratory rate of 18 he is on a Versed drip and also because the blood pressures are low he was started on Levophed and the nurse requested me to add another pressor because the blood pressure is staying around less than 80 systolic I started the patient on pita Synephrine. Patient is also receiving IV fluid supplementation. As per the no history of fever no dizziness no headaches no chest pains but cough a dry cough for the last few days and is reported was decreased since yesterday fluid intake was decreased since yesterday no problem with urination but giving the diarrhea for the last 2 days 1 time a day. No fevers noted at home. No falls recorded. No rashes are recorded. Patient was recently in the hospital in April he was transferred to rehab facility and he is at home for the last 2 weeks. He went to PCP few days ago everything worked out to be in normal. Past Medical History Cardiac Medical History: Reports: Congestive Heart Failure, Hyperlipidema, Hypertension Denies: Myocardial Infarction Pulmonary Medical History: Reports: Chronic Obstructive Pulmonary Disease (COPD) Denies: Asthma - ? Neurological Medical History: Denies: Seizures Endocrine Medical History: Reports: Diabetes Mellitus Type 2 Denies: Diabetes Mellitus Type 1, Hyperthyroidism, Hypothyroidism Malignancy Medical History: Reports: Lymphoma GI Medical History: Denies: Hepatitis, Hiatal Hernia Musculoskeltal Medical History: Reports: Arthritis Traumatic Medical History: Denies: Traumatic Brain Injury Hematology: Denies: Anemia, Sickle Cell Disease Infectious Medical History: Denies: HIV Past Surgical History Past Surgical History: Reports: Other - Neurosurgical removal of a spinal tumor Denies: Pacemaker Social History Information Source: [facility] Records Lives with: Family Smoking Status: Former Smoker Frequency of Alcohol Use: None Hx Recreational Drug Use: No Drugs: None Hx Prescription Drug Abuse: No - Advance Directive Resuscitation Status: Full Code Family History Family History: CAD, COPD, DM, Hypertension, Malignancy Parental Family History Reviewed: Yes - mom With history of COPD and hypertension. Children Family History Reviewed: Yes Sibling(s) Family History Reviewed.: Yes Medication/Allergy Allergies/Adverse Reactions: No Known Allergies Allergy (Verified 06/21/18 04:09) Review of Systems ROS unobtainable: Due to endotracheal tube, Other - History obtained from who is at bedside. Constitutional: PRESENT: fatigue, weakness Eyes: ABSENT: visual disturbances Ears: ABSENT: hearing changes Nose, Mouth, and Throat: ABSENT: sore throat Cardiovascular: ABSENT: chest pain, dyspnea on exertion, edema, orthropnea, palpitations Respiratory: PRESENT: cough, dyspnea Gastrointestinal: PRESENT: diarrhea Genitourinary: ABSENT: dysuria, hematuria Neurological: ABSENT: abnormal gait, abnormal speech, confusion, dizziness, focal weakness, syncope Psychiatric: ABSENT: anxiety, depression, homidical ideation, suicidal ideation Physical Exam Vital Signs: Temp Pulse Resp BP Pulse Ox 101.6 F H 122 H 21 H 111/51 L 91 L 06/21/18 03:10 06/21/18 03:10 06/21/18 08:16 06/21/18 08:16 06/21/18 08:16 Intake & Output 06/20/18 06/21/18 06/22/18 06:59 06:59 06:59 Intake Total 510 1106 Balance 510 1106 Weight 111.1 kg General appearance: PRESENT: other - Obese male intubated and on Versed. Head exam: PRESENT: atraumatic Eye exam: PRESENT: PERRLA Teeth exam: PRESENT: poor dentation Neck exam: ABSENT: carotid bruit, JVD, lymphadenopathy, thyromegaly Respiratory exam: PRESENT: decreased breath sounds Cardiovascular exam: PRESENT: RRR. ABSENT: diastolic murmur, rubs, systolic murmur GI/Abdominal exam: PRESENT: normal bowel sounds, soft. ABSENT: distended, guarding, mass, organolmegaly, rebound, tenderness Rectal exam: PRESENT: deferred Gentrourinary exam: PRESENT: indwelling catheter Neurological exam: PRESENT: other - Patient is intubated under sedation. Psychiatric exam: PRESENT: appropriate affect, normal mood. ABSENT: homicidal ideation, suicidal ideation Skin exam: PRESENT: dry, intact, warm. ABSENT: cyanosis, rash Results Laboratory Results: 06/21/18 03:20 06/21/18 03:20 06/21/18 06/21/18 06/21/18 03:20 03:20 03:20 WBC 22.6 H RBC 3.73 L Hgb 10.6 L Hct 34.4 L MCV 92 MCH 28.5 MCHC 30.9 L RDW 18.5 H Plt Count 357 Seg Neutrophils % Not Reportable Lymphocytes % Not Reportable Monocytes % Not Reportable Eosinophils % Not Reportable Basophils % Not Reportable Absolute Neutrophils Not Reportable Absolute Lymphocytes Not Reportable Absolute Monocytes Not Reportable Absolute Eosinophils Not Reportable Absolute Basophils Not Reportable Carbonic Acid HCO3/H2CO3 Ratio ABG pH ABG pCO2 ABG pO2 ABG HCO3 ABG O2 Saturation ABG Base Excess VBG pH VBG pCO2 VBG HCO3 VBG Base Excess FiO2 Sodium 143.4 Potassium 5.9 H Chloride 101 Carbon Dioxide 34 H Anion Gap 8 BUN 22 H Creatinine 0.93 Est GFR ( Amer) > 60 Est GFR (Non-Af Amer) > 60 Glucose 183 H Lactic Acid 1.7 Calcium 8.2 L Total Bilirubin 0.4 AST 14 L ALT 17 L Alkaline Phosphatase 135 H Total Protein 6.0 L Albumin 3.3 L Urine Color Urine Appearance Urine pH Ur Specific [place] Urine Protein Urine Glucose (UA) Urine Ketones Urine Blood Urine Nitrite Ur Leukocyte Esterase Urine WBC (Auto) Urine RBC (Auto) 06/21/18 06/21/18 06/21/18 03:20 03:30 04:53 WBC RBC Hgb Hct MCV MCH MCHC RDW Plt Count Seg Neutrophils % Lymphocytes % Monocytes % Eosinophils % Basophils % Absolute Neutrophils Absolute Lymphocytes Absolute Monocytes Absolute Eosinophils Absolute Basophils Carbonic Acid 2.62 H HCO3/H2CO3 Ratio 12:1 ABG pH 7.18 L* ABG pCO2 87.0 H* ABG pO2 75.1 L ABG HCO3 31.7 H ABG O2 Saturation 90.5 L ABG Base Excess 1.3 VBG pH 7.24 L VBG pCO2 82.4 H* VBG HCO3 34.5 H VBG Base Excess 4.3 FiO2 100% BIPAP Sodium Potassium Chloride Carbon Dioxide Anion Gap BUN Creatinine Est GFR ( Amer) Est GFR (Non-Af Amer) Glucose Lactic Acid Calcium Total Bilirubin AST ALT Alkaline Phosphatase Total Protein Albumin Urine Color DARK YELLOW Urine Appearance TURBID Urine pH 5.0 Ur Specific [place] 1.020 Urine Protein 100 H Urine Glucose (UA) NEGATIVE Urine Ketones NEGATIVE Urine Blood NEGATIVE Urine Nitrite NEGATIVE Ur Leukocyte Esterase LARGE H Urine WBC (Auto) >182 Urine RBC (Auto) 43 Impressions: Chest X-Ray 06/21/18 03:14 IMPRESSION: Cardiomegaly. Lungs are clear copyright 2010 [employer]- All Rights Reserved Assessment and Plan - Diagnosis (1) Acute respiratory failure with hypoxemia Is this a current diagnosis for this admission?: Yes Plan: 06/21/2018-patient is intubated in the emergency room. Admitted for acute respiratory failure with hypoxia. Plan to place the patient in ICU. Continue to keep him on SIMV with pulse oxes of 60% respiratory of 16 PEEP of 5 tidal volume of 500 blood cultures urine cultures are requested sputum cultures are requested presently on Versed to add propofol. Presently on Levophed and leaned onto knee with significant was initiated because of low blood pressures. GI prophylaxis DVT prophylaxis initiated. Started on IV Zosyn and IV vancomycin. To do the daily labs and daily ABGs. wants to be a him to be a full code. NG tube and Arzate's catheter in place. Patient is going to be n.p.o. Blood sugars to be monitored every 6 hours with sliding scale coverage. It is also going to be on IV fluids normal saline at 100 cc/h. To request for scheduled and as needed nebulizations. (2) Morbid obesity Is this a current diagnosis for this admission?: Yes Plan: 06/21/2018-patient BMI is more than 35 he has history of sleep apnea uses CPAP machine at home. Once he is extubated will provide dietary education. (3) Sepsis Qualifiers: Sepsis type: sepsis due to unspecified organism Qualified Code(s): A41.9 - Sepsis, unspecified organism Is this a current diagnosis for this admission?: Yes Plan: 06/21/2018-patient came in with fever of 101.8 with acute respiratory failure status post intubation hypotensive and a WBC count is 22,600 but chest x-ray was negative lactic acid is 1.7 at this time there is no obvious source of infection. CT chest without contrast was requested. We are going to treat the patient as if he had sepsis. Started on IV Zosyn and IV vancomycin. blood cultures, sputum cultures, Urine cultures are requested. (4) COPD (chronic obstructive pulmonary disease) with emphysema Qualifiers: Emphysema type: unspecified Qualified Code(s): J43.9 - Emphysema, unspecified Is this a current diagnosis for this admission?: No Plan: 06/21/2018-patient has history of COPD. Ex-smoker. Admitted for acute on chronic respiratory failure. Uses CPAP at home. Not on home oxygen. (5) Type 2 diabetes mellitus Is this a current diagnosis for this admission?: No Plan: 06/21/2018-patient has history of type [address] him on blood sugar monitoring every 6 hours and insulin sliding scale. - Time Time Spent with patient: 35 or more minutes Medications reviewed and adjusted accordingly: Yes Anticipated discharge: SNF
[2018-06-21] MEDS ORDERED: INSULIN REG, HUMAN 100 UNIT/ML 3 ML VIAL (PYX) SUBCUT SCH (08:45)
[2018-06-21 08:49] LABS: APPEARANCE,URINE TURBID; BILIRUBIN,URINE NEGATIVE (NEGATIVE); COLOR,URINE YELLOW; GLUCOSE, URINE 50 mg/dL (NEGATIVE); KETONES,URINE NEGATIVE (NEGATIVE); LEUKOCYTE ESTERASE,URINE MODERATE (NEGATIVE); NITRITE,URINE NEGATIVE (NEGATIVE); PROTEIN,URINE 100 mg/dL (NEGATIVE); URINE SPECIFIC GRAVITY 1.018; UROBILINOGEN,URINE NEGATIVE mg/dL (<2.0)
[2018-06-21] MEDS ORDERED: PIPERACILLIN SODIUM/TAZOBACTAM 3.375 GM in NORMAL SALINE 100 ML IV SCH (09:00)
[2018-06-21 09:10] LABS: URINE AMPHETAMINES SCREEN NEGATIVE; URINE BARBITURATES SCREEN NEGATIVE; URINE BENZODIAZEPINES SCREEN NEGATIVE; URINE COCAINE SCREEN NEGATIVE; URINE MARIJUANA (THC) SCREEN NEGATIVE; URINE METHADONE SCREEN NEGATIVE; URINE PHENCYCLIDINE SCREEN NEGATIVE
[2018-06-21] MEDS ORDERED: FAMOTIDINE INJ/PF 20 MG/2 ML SDV IV SCH (10:00)
[2018-06-21] MEDS ORDERED: VANCOMYCIN HCL INJ 500 MG VIAL IV SCH (10:00)
[2018-06-21] MEDS ORDERED: ENOXAPARIN SODIUM INJ 40 MG/0.4 ML DISP.SYRIN SUBCUT SCH ×2 (10:00→11:30)
[2018-06-21] MEDS: PROPOFOL 1,000 MG/100 ML INFUS..BTL IV PRN ×2 (11:30→16:47)
[2018-06-21] MEDS: ACETAMINOPHEN 650 MG SUPP.RECT PR PRN ×2 (11:57→16:22)
[2018-06-21] MEDS ORDERED: LEVALBUTEROL HCL NEB 0.63 MG/3 ML AMPUL NEB PRN (12:18)
[2018-06-21] MEDS ORDERED: (PENDING PHARMACY ID) (Divalproex Sodium [Depakote] 125 MG) PO SCH (12:30)
[2018-06-21] MEDS ORDERED: METOPROLOL TARTRATE 25 MG TABLET PO SCH (12:30)
[2018-06-21] MEDS ORDERED: LACTULOSE SYRUP 20 GM/30 ML UDCUP PO SCH (12:30)
[2018-06-21] MEDS ORDERED: DIVALPROEX SODIUM 125 MG CAP.SPRINK PO SCH (13:00)
[2018-06-21] MEDS ORDERED: ACETYLCYSTEINE 20% SOLN 800 MG/4 ML VIAL.NEB NEB SCH (13:00)
[2018-06-21] MEDS ORDERED: DIGOXIN 0.125 MG TABLET PO SCH (13:00)
[2018-06-21] MEDS ORDERED: ASPIRIN 81 MG TABLET, ENT COATED PO SCH (13:00)
[2018-06-21] MEDS ORDERED: IPRATROPIUM/ALBUTEROL 0.5-2.5 MG/3 ML AMPUL NEB SCH (14:00)
[2018-06-21] MEDS ORDERED: LEVALBUTEROL HCL NEB 1.25 MG/3 ML AMPUL NEB SCH (14:00)
[2018-06-21 14:01] LABS: ARTERIAL BLOOD BASE EXCESS 6.4 mmol/L; ARTERIAL BLOOD H2CO3 1.71 mmol/L (1.05-1.35); ARTERIAL BLOOD HCO3 32.9 mmol/L (20-24); ARTERIAL BLOOD O2 SATURATION 91.3 % (94-98); ARTERIAL BLOOD PCO2 56.9 mmHg (35-45); ARTERIAL BLOOD PH 7.38 (7.35-7.45); ARTERIAL BLOOD PO2 63.3 mmHg (80-100); ARTERIAL BLOOD TOTAL CO2 34.7 mmol/L (23-27)
[2018-06-21 14:04] LABS: ARTERIAL BLOOD FIO2 100%
--- NOTE | 2018-06-21 14:16 | RADIOLOGY REPORT (SQ) ---
EXAM DESCRIPTION: CT CHEST WITHOUT COMPLETED DATE/TIME: 06/21/2018 1:33 pm REASON FOR STUDY: resp failure COMPARISON: 01/26/2018 TECHNIQUE: CT scan performed of the chest without intravenous contrast. Images reviewed with lung, soft tissue and bone windows. Reconstructed coronal and sagittal MPR images reviewed. All images st ored on PACS. All CT scanners at this facility use dose modulation, iterative reconstruction, and/or weight based d osing when appropriate to reduce radiation dose to as low as reasonably achievable (ALARA). [facility]: Dose Right [facility]: CareDose [facility]: Dose Right [facility]: Teradose 4D [facility]: [place] RADIATION DOSE: CT Rad equipment meets quality standard of care and radiation dose reduction techniq ues were employed. CTDIvol: 20.9 mGy. DLP: 886 mGy-cm. mGy. LIMITATIONS: No technical limitations. FINDINGS: LUNGS AND PLEURA: Extensive consolidation and air bronchograms in the right lung with spar ing of the apical segment right upper lobe. No significant pleural fluid. HILAR AND MEDIASTINAL STRUCTURES: No identified masses or abnormal nodes. No obvious aneurysm. HEART AND VASCULAR STRUCTURES: No aneurysm. No pericardial effusion. UPPER ABDOMEN: No significant findings. Limited exam. THYROID AND OTHER SOFT TISSUES: No masses. No adenopathy. BONES: No significant finding. HARDWARE: None in the chest. OTHER: Satisfactory position of left side central line, endotracheal tube and nasogastric tube. IMPRESSION: Extensive pneumonia in the right lung with relative sparing of the apical segment of the right upper lobe. TECHNICAL DOCUMENTATION: JOB ID: [id number] Quality ID # [id number]: Final reports with documentation of one or more dose reduction techniques (e.g., Au tomated exposure control, adjustment of the mA and/or kV according to patient size, use of iterative reconstruction technique) 2010 [employer]- All Rights Reserved Reading location - IP/workstation name: [email or web address]
[2018-06-21] MEDS ORDERED: DEXTROSE 40% GEL 15 GM TUBE NG PRN ×2 (14:30)
--- NOTE | 2018-06-21 15:06 | PDOC TRANSFER SUMMARY ---
General Admission Date/PCP: 06/21/18 06:54 HILARIA ALFARO MD Resuscitation Status: Full Code - Transfer Diagnosis (1) Acute respiratory failure with hypoxemia Is this a current diagnosis for this admission?: Yes Diagnosis Summary: 06/21/2018-patient is intubated in the emergency room. Admitted for acute respiratory failure with hypoxia. Plan to place the patient in ICU. Continue to keep him on SIMV with pulse oxes of 60% respiratory of 16 PEEP of 5 tidal volume of 500 blood cultures urine cultures are requested sputum cultures are requested presently on Versed to add propofol. Presently on Levophed and leaned onto knee with significant was initiated because of low blood pressures. GI prophylaxis DVT prophylaxis initiated. Started on IV Zosyn and IV vancomycin. To do the daily labs and daily ABGs. wants to be a him to be a full code. NG tube and Arzate's catheter in place. Patient is going to be n.p.o. Blood sugars to be monitored every 6 hours with sliding scale coverage. It is also going to be on IV fluids normal saline at 100 cc/h. To request for scheduled a nd as needed nebulizations. 06/21/2018-patient is presently on 100% oxygen on mechanical ventilation SIMV volume controlled with tidal volume of 500 respiratory of 18 PEEP of 10. ABG on 100% oxygen shows pH of 7.38/PCO2 56.9 PO2 63.3 bicarb 33 and oxygen saturation is 91. Chest x-ray shows negative for pneumonia but CT chest without contrast showing extensive right-sided pneumonia sparing of the apical segment of the right upper lobe. The clinical picture looks like ARDS to me. (2) Pneumonia Is this a current diagnosis for this admission?: Yes Diagnosis Summary: 06/21/2018 CT scan showing pneumonia sparing apical segment. Most likely communicated acquired pneumonia. Recently on vancomycin and Zosyn. Blood c ultures are pending. Sputum cultures are pending. Plan to do the tracheal aspirate to send it to the lab. (3) Morbid obesity Is this a current diagnosis for this admission?: Yes (4) Sepsis Is this a current diagnosis for this admission?: Yes Diagnosis Summary: 06/21/2018-patient came in with fever of 101.8 with acute respiratory failure status post intubation hypotensive and a WBC count is 22,600 but chest x-ray was negative lactic acid is 1.7 at this time there is no obvious source of infection. CT chest without contrast was requested. We are going to treat the patient as if he had sepsis. Started on IV Zosyn and IV vancomycin. blood cultures, sputum cultures, Urine cultures are requested. 06/21/2018-patient's latest temperature is 102.6. WBC count is 22,600. Lactic acid is 1.7. CT chest shows extensive right lung pneumonia with sparing of the apical segment. And is presently on IV Zosyn and vancomycin. Latest pressure is 102.7. Patient received total of 4 L of IV fluids so far the last 7 to 8 hours. urine output is so far 350 mL. Patient is on Nitin-Synephrine 30 mcg per min Levophed 9 meq perkg/min. Blood pressure is 118/49. (5) COPD (chronic obstructive pulmonary disease) with emphysema Is this a current diagnosis for this admission?: No Diagnosis Summary: 06/21/2018-patient has history of COPD. Ex-smoker. Admitted for acute on chronic respiratory failure. Uses CPAP at home. Not on home oxygen. (6) Type 2 diabetes mellitus Is this a current diagnosis for this admission?: No (7) CHF (congestive heart failure) Is this a current diagnosis for this admission?: No Diagnosis Summary: 06/21/2018 patient has history of congestive heart failure. Latest echocardiogram shows EF of 55%. Patient has normal diagnostic function. Most likely she has a chronic systolic heart failure not in fluid overload. (8) Atrial fibrillation Is this a current diagnosis for this admission?: No Diagnosis Summary: 06/21/2018-patient has history of atrial fibrillation patient is not on anticoagulation at home. (9) Acute respiratory distress syndrome (ARDS) Is this a current diagnosis for this admission?: Yes Diagnosis Summary: 06/21/2018-looks like patient is in ARDS. He has extensive pneumonia involving the right side of the chest. Hypotensive septic. ABG on 100% oxygen pH is 7.38, PCO2 56.9, PO2 63.3, bicarb is 32.9 and oxygen saturation is 91.3. We do not have any pulmonology service is available for the next few days starting from today. I spoke to the MICU attending in [facility], she is going to look at the discharge summary and reviewed the chart and most likely accept the patient. - Transfer Medications Home Medications: Acetaminophen [Tylenol 325 mg Tablet] 650 mg PO Q6HP PRN 06/21/18 Acetylcysteine [Mucomist 20% Soln 800 mg/4 mL] 600 mg NEB Q12 06/21/18 Aspirin [Ecotrin 81 mg EC Tablet] 81 mg PO DAILY 06/21/18 Digoxin [Lanoxin 0.125 mg Tablet] 0.125 mg PO DAILY 06/21/18 Divalproex Sodium [Depakote] 125 mg PO QAM 06/21/18 Divalproex Sodium [Depakote] 500 mg PO QHS 06/21/18 Furosemide [Lasix 20 mg Tablet] 20 mg PO BID 06/21/18 Haloperidol [Haldol 1 mg Tablet] 0.5 mg PO QHS 06/21/18 Hydrocodone/Acetaminophen [Mcdougal 5-325 Tablet] 1 tab PO Q4HP PRN 06/21/18 Insulin Lispro [Humalog Insulin (Lispro) 100 unit/mL] 0 units SQ .SLIDING SCALE 06/21/18 Ipratropium/Albuterol Sulfate [Duoneb 3 ml Ampul] 3 ml NEB Q6 06/21/18 Levalbuterol HCl [Xopenex] 0.63 mg NEB Q4HP PRN 06/21/18 Magnesium Oxide [Mag-Ox 400 mg Tablet] 400 mg PO DAILY 06/21/18 Metoprolol Tartrate [Lopressor 25 mg Tablet] 25 mg PO Q12 06/21/18 Potassium Chloride [K-Tab ER] 40 meq PO DAILY 06/21/18 Trazodone HCl [Desyrel] 100 mg PO QHS 06/21/18 Transfer Medications: Current Medications Acetaminophen (Tylenol 650 Mg Supp) 650 mg NM Q4HP PRN PRN Reason: FEVER >101 Stop: 07/21/18 11:22 Last Admin: 06/21/18 11:57 Dose: 650 mg Documented by: Acetylcysteine (Mucomist 20% Soln 800 Mg/4 Ml) 600 mg NEB RTQ12 [facility] Stop: 07/21/18 12:59 Last Admin: 06/21/18 13:45 Dose: 600 mg Documented by: Albuterol/Ipratropium (Duoneb 3 Ml Ampul) 3 ml NEB RTQ6 [facility] Stop: 07/21/18 13:59 Last Admin: 06/21/18 13:45 Dose: 3 ml Documented by: Aspirin (Aspirin 81 Mg Chewable Tablet) 81 mg NG DAILY [facility] Stop: 07/22/18 09:59 Dextrose (Dextrose Inj 50% Syringe (25 Gm/50 Ml)) 25 gm IV PRN PRN; Protocol PRN Reason: See Label Comments Stop: 07/21/18 08:14 Dextrose (Dextrose Inj 50% Syringe (25 Gm/50 Ml)) 12.5 gm IV PRN PRN; Protocol PRN Reason: FOR BG 50-69 IN ALERT PATIENT Stop: 07/21/18 08:14 Digoxin (Lanoxin 0.125 Mg Tablet) 0.125 mg NG DAILY [facility] Stop: 07/21/18 12:59 Enoxaparin Sodium (Lovenox Inj 120 Mg/0.8 Ml Disp.Syrin) 110 mg SUBCUT Q12 [facility] Stop: 07/21/18 21:59 Famotidine (Pepcid Inj/Pf 20 Mg/2 Ml Sdv) 20 mg IV Q12 [facility] Stop: 07/21/18 09:59 Last Admin: 06/21/18 09:28 Dose: 20 mg Documented by: Glucagon (Glucagen Inj 1 Mg Vial) 1 mg SUBCUT PRN PRN; Protocol PRN Reason: Evaluate for BG < 70 Stop: 07/21/18 08:14 Glucose (Glutose 40% Gel 15 Gm Tube) 15 gm NG PRN PRN; Protocol PRN Reason: For BG 50-69 in Alert Patient Stop: 07/21/18 08:14 Glucose (Glutose 40% Gel 15 Gm Tube) 30 gm NG PRN PRN; Protocol PRN Reason: FOR BG < 50 IN ALERT PATIENT Stop: 07/21/18 08:14 Haloperidol (Haldol 0.5 Mg Tablet) 0.5 mg NG QHS [facility] Stop: 07/21/18 21:59 Midazolam HCl (Versed Rtu 50 Mg/100 Ml Premix Bag) 50 mg in 100 mls @ 0 mls/hr IV CONTINUOUS PRN; Protocol PRN Reason: THIS MED IS NOT "PRN" Stop: 06/28/18 05:07 Last Admin: 06/21/18 12:37 Dose: 16 mg/hr, 32 mls/hr Documented by: Norepinephrine Bitartrate 4 mg (/ Dextrose) 250 mls @ 0 mls/hr IV CONTINUOUS PRN; Protocol PRN Reason: THIS MED IS NOT "PRN" Stop: 07/21/18 05:50 Last Titration: 06/21/18 12:59 Dose: 9 mcg/min, 33.75 mls/hr Documented by: Hard Fat/Phenylephrine 40 mg/ (Dextrose) 250 mls @ 0 mls/hr IV CONTINUOUS PRN; Protocol PRN Reason: THIS MED IS NOT "PRN" Stop: 07/21/18 07:46 Last Titration: 06/21/18 12:54 Dose: 30 mcg/min, 11.25 mls/hr Documented by: Sodium Chloride (Nacl 0.9% 1000 Ml Iv Soln) 1,000 mls @ 75 mls/hr IV CONTINUOUS PRN PRN Reason: THIS MED IS NOT "PRN" Stop: 07/21/18 08:14 Last Admin: 06/21/18 08:55 Dose: 75 mls/hr Documented by: Propofol (Diprivan Rtu 1000 Mg/100 Ml Inf.Bottle) 1,000 mg in 100 mls @ 3.333 mls/hr IV CONTINUOUS PRN; Protocol PRN Reason: THIS MED IS NOT "PRN" Stop: 07/21/18 08:41 Last Titration: 06/21/18 12:39 Dose: 20 mcg/kg/min, 13.33 mls/hr Documented by: Piperacillin Sod/Tazobactam (Sod 3.375 gm/ Sodium Chloride) 100 mls @ 200 mls/hr IV Q6A [facility] Stop: 06/28/18 08:59 Last Infusion: 06/21/18 09:59 Dose: Infused Documented by: Vancomycin HCl 1,500 mg/ (Dextrose) 250 mls @ 166.667 mls/hr IV Q12@0400,1600 [facility] Stop: 06/28/18 15:59 Insulin Human Regular (Humulin R (Pyxis) Insulin 100 Unit/Ml 3ml) 0 - 12 unit SUBCUT [id number] [facility]; Protocol Stop: 07/21/18 08:44 Last Admin: 06/21/18 08:50 Dose: Not Given Documented by: Lactulose (Cephulac Syrup 20 Gm/30 Ml Udcup) 20 gm PO BID [facility] Stop: 07/21/18 12:29 Last Admin: 06/21/18 14:37 Dose: Not Given Documented by: Levalbuterol HCl (Xopenex Neb 0.63 Mg/3 Ml Ampul) 0.63 mg NEB RTQ4HP PRN PRN Reason: FOR SHORTNESS OF BREATH Stop: 07/21/18 12:17 Metoprolol Tartrate (Lopressor 25 Mg Tablet) 25 mg PO Q12 [facility] Stop: 07/21/18 12:29 Last Admin: 06/21/18 14:37 Dose: Not Given Documented by: Ondansetron HCl (Zofran Inj/Pf 4 Mg/2 Ml Sdv) 4 mg IV Q6HP PRN PRN Reason: FOR NAUSEA/VOMITING Stop: 07/21/18 08:14 Pharmacy Profile Note (Medication Communication Order) 1 each [facility] .NOTICE NR Stop: 07/21/18 08:14 Promethazine HCl (Phenergan Inj 25 Mg/1 Ml Vial) 25 mg IV Q4HP PRN PRN Reason: FOR NAUSEA/VOMITING Stop: 07/21/18 08:14 Sodium Chloride (Saline Flush 2.5 Ml Monoject Prefil Syrin) 2.5 ml IV Q8 [facility] Stop: 07/21/18 08:29 Last Admin: 06/21/18 08:40 Dose: Not Given Documented by: Valproate Sodium (Depakene Syrup 250 Mg/5 Ml Udcup) 125 mg NG DAILY [facility] Stop: 07/22/18 09:59 - Allergies Allergies/Adverse Reactions: No Known Allergies Allergy (Verified 06/21/18 04:09) Hospital Course Hospital Course: 520 06/21/[id number]-[id number]-old male with multiple medical problems came to the emergency room with respiratory distress and altered mental status he was hypoxic hypotensive in the emergency room he was intubated started on Nitin- Synephrine and levo fed. Latest blood pressure was 118/50. Even 100% oxygen P O2 is 63% on ABG. With PEEP of 10. CT scan shows extensive right-sided pneumonia with sparing of the right apical segment. We do not have a drawer maker available for the next few days. So I called [facility] and spoke to the MICU attending discussed the case with her for a possible transfer. They go to review the chart and call me back for bed. Physical Exam Vital Signs: Temp Pulse Resp BP Pulse Ox 102.7 F H 81 18 118/49 L 98 06/21/18 14:00 06/21/18 14:00 06/21/18 14:00 06/21/18 13:44 06/21/18 14:00 Intake & Output 06/20/18 06/21/18 06/22/18 06:59 06:59 06:59 Intake Total 510 1689 Output Total 350 Balance 510 1339 Weight 111.1 kg General appearance: PRESENT: other - Obese male intubated under sedation. Presently on propofol and Versed. Head exam: PRESENT: atraumatic, normocephalic Eye exam: PRESENT: PERRLA Mouth exam: PRESENT: moist, tongue midline Neck exam: ABSENT: carotid bruit, JVD, lymphadenopathy, thyromegaly Respiratory exam: PRESENT: decreased breath sounds Cardiovascular exam: PRESENT: RRR. ABSENT: diastolic murmur, rubs, systolic murmur GI/Abdominal exam: PRESENT: normal bowel sounds, soft. ABSENT: distended, guarding, mass, organolmegaly, rebound, tenderness Rectal exam: PRESENT: deferred Extremities exam: PRESENT: full ROM. ABSENT: calf tenderness, clubbing, pedal edema Neurological exam: PRESENT: other - Patient was intubated under sedation. Ailyn ble to do the neuro examination.. ABSENT: motor sensory deficit Psychiatric exam: PRESENT: appropriate affect, normal mood. ABSENT: homicidal ideation, suicidal ideation Results Laboratory Results: 06/21/18 03:20 06/21/18 03:20 06/21/18 06/21/18 06/21/18 03:20 03:20 03:20 WBC 22.6 H RBC 3.73 L Hgb 10.6 L Hct 34.4 L MCV 92 MCH 28.5 MCHC 30.9 L RDW 18.5 H Plt Count 357 Seg Neutrophils % Not Reportable Lymphocytes % Not Reportable Monocytes % Not Reportable Eosinophils % Not Reportable Basophils % Not Reportable Absolute Neutrophils Not Reportable Absolute Lymphocytes Not Reportable Absolute Monocytes Not Reportable Absolute Eosinophils Not Reportable Absolute Basophils Not Reportable Carbonic Acid HCO3/H2CO3 Ratio ABG pH ABG pCO2 ABG pO2 ABG HCO3 ABG O2 Saturation ABG Base Excess VBG pH VBG pCO2 VBG HCO3 VBG Base Excess FiO2 Sodium 143.4 Potassium 5.9 H Chloride 101 Carbon Dioxide 34 H Anion Gap 8 BUN 22 H Creatinine 0.93 Est GFR ( Amer) > 60 Est GFR (Non-Af Amer) > 60 Glucose 183 H Lactic Acid 1.7 Calcium 8.2 L Total Bilirubin 0.4 AST 14 L ALT 17 L Alkaline Phosphatase 135 H Total Protein 6.0 L Albumin 3.3 L Urine Color Urine Appearance Urine pH Ur Specific [place] Urine Protein Urine Glucose (UA) Urine Ketones Urine Blood Urine Nitrite Ur Leukocyte Esterase Urine WBC (Auto) Urine RBC (Auto) 06/21/18 06/21/18 06/21/18 03:20 03:30 04:53 WBC RBC Hgb Hct MCV MCH MCHC RDW Plt Count Seg Neutrophils % Lymphocytes % Monocytes % Eosinophils % Basophils % Absolute Neutrophils Absolute Lymphocytes Absolute Monocytes Absolute Eosinophils Absolute Basophils Carbonic Acid 2.62 H HCO3/H2CO3 Ratio 12:1 ABG pH 7.18 L* ABG pCO2 87.0 H* ABG pO2 75.1 L ABG HCO3 31.7 H ABG O2 Saturation 90.5 L ABG Base Excess 1.3 VBG pH 7.24 L VBG pCO2 82.4 H* VBG HCO3 34.5 H VBG Base Excess 4.3 FiO2 100% BIPAP Sodium Potassium Chloride Carbon Dioxide Anion Gap BUN Creatinine Est GFR ( Amer) Est GFR (Non-Af Amer) Glucose Lactic Acid Calcium Total Bilirubin AST ALT Alkaline Phosphatase Total Protein Albumin Urine Color DARK YELLOW Urine Appearance TURBID Urine pH 5.0 Ur Specific [place] 1.020 Urine Protein 100 H Urine Glucose (UA) NEGATIVE Urine Ketones NEGATIVE Urine Blood NEGATIVE Urine Nitrite NEGATIVE Ur Leukocyte Esterase LARGE H Urine WBC (Auto) >182 Urine RBC (Auto) 43 06/21/18 06/21/18 05:08 13:45 WBC RBC Hgb Hct MCV MCH MCHC RDW Plt Count Seg Neutrophils % Lymphocytes % Monocytes % Eosinophils % Basophils % Absolute Neutrophils Absolute Lymphocytes Absolute Monocytes Absolute Eosinophils Absolute Basophils Carbonic Acid 1.71 H HCO3/H2CO3 Ratio 19:1 ABG pH 7.38 ABG pCO2 56.9 H ABG pO2 63.3 L ABG HCO3 32.9 H ABG O2 Saturation 91.3 L ABG Base Excess 6.4 VBG pH VBG pCO2 VBG HCO3 VBG Base Excess FiO2 100% Sodium Potassium Chloride Carbon Dioxide Anion Gap BUN Creatinine Est GFR ( Amer) Est GFR (Non-Af Amer) Glucose Lactic Acid Calcium Total Bilirubin AST ALT Alkaline Phosphatase Total Protein Albumin Urine Color YELLOW Urine Appearance TURBID Urine pH 5.0 Ur Specific [place] 1.018 Urine Protein 100 H Urine Glucose (UA) 50 H Urine Ketones NEGATIVE Urine Blood SMALL H Urine Nitrite NEGATIVE Ur Leukocyte Esterase MODERATE H Urine WBC (Auto) >182 Urine RBC (Auto) 91 06/21/18 06/21/18 06/21/18 03:20 03:20 03:20 Creatine Kinase 42 L Troponin I 0.352 NT-Pro-B Natriuret Pep 81701 H Impressions: Chest CT 06/21/18 00:00 IMPRESSION: Extensive pneumonia in the right lung with relative sparing of the apical segment of the right upper lobe. Chest X-Ray 06/21/18 03:14 IMPRESSION: Cardiomegaly. Lungs are clear copyright 2010 [employer]- All Rights Reserved Plan Discharge Plan: To transfer to [facility] when bed is available. Time Spent: Greater than 30 Minutes
[2018-06-21] MEDS ORDERED: VANCOMYCIN HCL 1,500 MG in DEXTROSE 5%-WATER 250 ML IV SCH (16:00)
--- NOTE | 2018-06-21 16:25 | RADIOLOGY REPORT (SQ) ---
EXAM DESCRIPTION: KUB/ABDOMEN (SINGLE VIEW) COMPLETED DATE/TIME: 06/21/2018 12:49 pm REASON FOR STUDY: Check Placement of NG Tube COMPARISON: None. NUMBER OF VIEWS: One view. TECHNIQUE: Supine radiographic image of the abdomen acquired. LIMITATIONS: None. FINDINGS: Nasogastric tube tip overlying the gastric fundus. No bowel obstruction. See chest CT sa me date for findings in the chest. IMPRESSION: Good position of NG tube. Reading location - IP/workstation name: [email or web address]
[2018-06-21 16:30] VITALS: BP 127/64
--- NOTE | 2018-06-21 20:43 | EKG REPORT ---
SEVERITY:- ABNORMAL ECG - SINUS RHYTHM ATRIAL PREMATURE COMPLEX RIGHT BUNDLE BRANCH BLOCK LAD . LEFT ANTERIOR FASCICULAR BLOCK : Confirmed by: Corina Moura MD 21-Jun-2018 20:43:12
[2018-06-21] MEDS ORDERED: HALOPERIDOL 0.5 MG TABLET NG SCH (22:00)
[2018-06-21] MEDS ORDERED: HALOPERIDOL 1 MG TABLET PO SCH (22:00)
[2018-06-21] MEDS ORDERED: ENOXAPARIN SODIUM INJ 120 MG/0.8 ML DISP.SYRIN SUBCUT SCH (22:00)
[2018-06-22] MEDS ORDERED: DIGOXIN 0.125 MG TABLET NG SCH (10:00)
[2018-06-22] MEDS ORDERED: VALPROATE SODIUM SYRUP 250 MG/5 ML UDCUP NG SCH (10:00)
[2018-06-22] MEDS ORDERED: ASPIRIN 81 MG TABLET, CHEWABLE NG SCH (10:00)
== END 2018-06-21 17:15 | disposition short-term general hospital (02) | DRG 208 ==
LOC: ER 03:09 → EH 06:54 → ICU 13:50
PROVIDERS: ADMIT Emergency Medicine; ATTEND Emergency Medicine
PROC: 5A1935Z Respiratory Ventilation, Less than 24 Consecutive Hours (ICD-10-PCS; principal; 2018-06-21)
PROC: 0BH17EZ Insertion of Endotracheal Airway into Trachea, Via Natural or Artificial Opening (ICD-10-PCS; 2018-06-21)
PROC: 05HN33Z Insertion of Infusion Device into Left Internal Jugular Vein, Percutaneous Approach (ICD-10-PCS; 2018-06-21)
PROC: 0D9670Z Drainage of Stomach with Drainage Device, Via Natural or Artificial Opening (ICD-10-PCS; 2018-06-21)
DX: J80 Acute respiratory distress syndrome (principal); A41.9 Sepsis, unspecified organism; J18.9 Pneumonia, unspecified organism; I50.22 Chronic systolic (congestive) heart failure; J43.9 Emphysema, unspecified; I48.91 Unspecified atrial fibrillation; E11.9 Type 2 diabetes mellitus without complications; E66.01 Morbid (severe) obesity due to excess calories; I11.0 Hypertensive heart disease with heart failure; E78.5 Hyperlipidemia, unspecified; M19.90 Unspecified osteoarthritis, unspecified site; F03.90 Unspecified dementia, unspecified severity, without behavioral disturbance, psychotic disturbance, mood disturbance, and anxiety; G47.33 Obstructive sleep apnea (adult) (pediatric); Z85.72 Personal history of non-Hodgkin lymphomas; Z82.49 Family history of ischemic heart disease and other diseases of the circulatory system; Z83.3 Family history of diabetes mellitus; Z82.5 Family history of asthma and other chronic lower respiratory diseases; Z87.891 Personal history of nicotine dependence; Z78.1 Physical restraint status
CPT/HCPCS: 36415; 71045; 71250; 74018; 80053; 80162; 80307; 81001; 82550; 82803; 82962; 83605; 83880; 84484; 85025; 87040; 87070; 87077; 87186; 87205; 93005; 93010; 94002; 94660; C1751; J0330; J1650; J2250; J2370; J2543; J2704; J3010; J3370; J3490; J7030; J7040; J7050; J7060; J7620; S0028

== ENCOUNTER 2018-07-02 10:41 | Emergency (ER) | payer MEDICARE, BC ==
[2018-07-02] MEDS ORDERED: NORMAL SALINE 1000 ML 1,000 ML IV PRN ×2 (10:51→14:27)
--- NOTE | 2018-07-02 10:56 | ER Document Report ---
ED Respiratory Problem - General Stated Complaint: DIFFICULTY BREATHING Time Seen by Provider: 07/02/18 10:47 Primary Care Provider: HILARIA ALFARO MD [Primary Care Provider] - Follow up as needed Notes: 68-year-old male was brought in via EMS with respiratory distress and unresponsive. The patient was discharged from [facility] yesterday for pneumonia. Patient went back to the custodial. Overnight the patient became less and less responsive. She was unresponsive this morning gasping for breath. He was brought back here to the emergency department. EMS had used a nonrebreather to keep the patient sats up. History is obtained from EMS custodial documents and the . Patient not able to contribute to the history. TRAVEL OUTSIDE OF THE [place] IN LAST 30 DAYS: No - Related Data Allergies/Adverse Reactions: No Known Allergies Allergy (Verified 06/21/18 04:09) Past Medical History - Social History Smoking Status: Unknown if Ever Smoked Family History: CAD, COPD, DM, Hypertension, Malignancy - Past Medical History Cardiac Medical History: Reports: Hx Congestive Heart Failure, Hx Hypercholesterolemia, Hx Hypertension Denies: Hx Heart Attack Pulmonary Medical History: Reports: Hx COPD Denies: Hx Asthma - ? Neurological Medical History: Denies: Hx Cerebrovascular Accident, Hx Seizures Endocrine Medical History: Reports: Hx Diabetes Mellitus Type 2. Denies: Hx Diabetes Mellitus Type 1, Hx Hyperthyroidism, Hx Hypothyroidism Renal/ Medical History: Denies: Hx Peritoneal Dialysis Malignancy Medical History: Reports Hx Lymphoma GI Medical History: Denies: Hx Hepatitis, Hx Hiatal Hernia, Hx Ulcer Musculoskeletal Medical History: Reports Hx Arthritis, Reports Hx Musculoskeletal Deformity, Reports Hx Musculoskeletal Trauma Traumatic Medical History: Reports: Hx Fractures. Denies: Hx Traumatic Brain Injury Infectious Medical History: Denies: Hx Hepatitis, Hx HIV Past Surgical History: Reports: Hx Neurologic Surgery - Spinal tumor removed, Hx Testicular Surgery - James's gangrene, Other - Neurosurgical removal of a spinal tumor. Denies: Hx Open Heart Surgery, Hx Pacemaker - Immunizations Hx Diphtheria, Pertussis, Tetanus Vaccination: Yes Review of Systems - Review of Systems -: Yes ROS unobtainable due to patient's medical condition Physical Exam - Vital signs Vitals: Resp Pulse Ox 23 H 96 07/02/18 10:48 07/02/18 10:48 - Notes Notes: GENERAL_APPEARANCE: well_nourished, lethargic not responsive VITALS: reviewed, see vital signs table. HEAD: no_swelling\tenderness on the head. EYES: PERRL, EOMI, conjunctiva_clear. NOSE: no_nasal_discharge. MOUTH: Mucous membranes THROAT: no_tonsilar_inflammation, no_airway_obstruction. no_lymphadenopathy NECK: supple, no_neck_tenderness, (-)thyromegaly. BACK: no_back_tenderness. CHEST_WALL: No crepitus or subcu tenderness emphysema LUNGS: Scattered_wheezing, no_rales, scattered_rhonchi, moderate accessory muscle use, poor air exchange bilateral. HEART: normal_rate, normal_rhythm, normal_S1, normal_S2, (-)S3, (-)S4, no_murmur, no_rub. ABDOMEN: soft, (-)guarding, (-)rebound, no_organomegaly, no_abd_masses. EXTREMITIES: good pulses in all_extremities, no_swelling\tenderness in the extremities, 2+_edema. SKIN: Pale color no rash MENTAL_STATUS: unresponsive nonverbal NEURO: Drowsy pain all 4 extremities Course - Re-evaluation Re-evalutation: 07/02/18 10:56 Patient arrives hypotensive in respiratory distress. Do not know CODE STATUS yet. She was placed on BiPAP waiting for family 07/02/18 12:58 Family arrives stating that he did have a DNR in the past but it was rescinded at [facility]. She is a full code. Spoke with the patient about the dangers of intubation with chronic respiratory failure she agreed to intubation. She was intubated he is hypotensive he is receiving large doses of fluid and we placed on levophed. Central line was placed. 07/02/18 13:00 We will speak with the hospitalist service for ICU admission. 07/02/18 13:[address] Jesse Huff and Dr. Barber Pritchard. The patient was transferred to [facility] recently because they were having considerable amount of trouble ventilating him in the ICU. They did not have a bag valver available to help him at that time. They feel that if he is intubated again it will be the same situation they do not feel comfortable managing somebody with such bad chronic respiratory disease intubated in the ICU without pulmonology. There is no pulmonology on-call. The patient left [facility] yesterday and they would know the most about him I will engage their transfer line. 07/02/18 14:26 Spoke with entry level account manager Dr. Christine Naranjo -accepted to the ICU at [facility]. - Vital Signs Vital signs: Temp Pulse Resp BP Pulse Ox 97.3 F 11 L 86/38 L 85 L 07/02/18 13:12 07/02/18 13:01 07/02/18 13:01 07/02/18 13:01 - Laboratory Result Diagrams: 07/02/18 10:54 07/02/18 10:54 Laboratory results interpreted by me: 07/02/18 07/02/18 07/02/18 10:54 10:54 10:54 WBC 14.6 H RBC 3.43 L Hgb 10.0 L Hct 32.1 L MCHC 31.3 L RDW 16.2 H Seg Neuts % (Manual) 91 H Lymphocytes % (Manual) 7 L Monocytes % (Manual) 1 L Metamyelocytes % 1 H Abs Neuts (Manual) 13.4 H PT 15.7 H VBG pH VBG pCO2 VBG HCO3 Potassium 6.4 H* Chloride 96 L Carbon Dioxide 40 H* BUN 43 H Glucose 227 H POC Glucose Lactic Acid AST 13 L Creatine Kinase < 20 L Total Protein 5.4 L Albumin 3.2 L 07/02/18 07/02/18 07/02/18 10:54 10:54 11:02 WBC RBC Hgb Hct MCHC RDW Seg Neuts % (Manual) Lymphocytes % (Manual) Monocytes % (Manual) Metamyelocytes % Abs Neuts (Manual) PT VBG pH 7.16 L* VBG pCO2 127.3 H* VBG HCO3 44.6 H Potassium Chloride Carbon Dioxide BUN Glucose POC Glucose 220 H Lactic Acid 0.6 L AST Creatine Kinase Total Protein Albumin Procedures - Central Line Right Femoral Central line pre-insertion: Sterile PPE donned, Chloraprep applied Central line lumen type: Triple Anesthetic type: 1% Lidocaine Ultrasound guided: No Line secured with sutures: Yes Central line post-insertion: Blood return from lumens, Sutured, Sterile dressing applied - Intubation Orotracheal Airway evaluation: Abnormal 3-3-2 rule, Large tongue, Other - Large. Facial hair Medications: Etomidate, Vecuronium Intubation method: Orotracheal Blade size: 4 ETT size: 8.0 ETT secured at: Gums ETT secured at (cm): 23 Breath Sounds after Intubation: Equal End tidal CO2 confirmed: Yes Ventilator settings: AC Critical Care Note - Critical Care Note Total time excluding time spent on procedures (mins): 45 Discharge - Discharge Clinical Impression: Acute respiratory failure with hypoxia and hypercapnia, Pneumonia COPD (chronic obstructive pulmonary disease) with emphysema Qualifiers: Emphysema type: centrilobular Qualified Code(s): J43.2 - Centrilobular emphysema Condition: Critical Disposition: [facility] Referrals: HILARIA ALFARO MD [Primary Care Provider] - Follow up as needed
[2018-07-02 11:05] LABS: VENOUS BLOOD BASE EXCESS 11.9 mmol/L; VENOUS BLOOD HCO3 44.6 mmol/L (20-32)
[2018-07-02 11:07] LABS: VENOUS BLOOD PCO2 127.3 mmHg (35-63); VENOUS BLOOD PH 7.16 (7.30-7.42)
[2018-07-02 11:11] LABS: HEMATOCRIT 32.1 % (37.9-51.0); MEAN CORPUSCULAR HEMOGLOBIN 29.2 pg (27.0-33.4); MEAN CORPUSCULAR HGB CONC 31.3 g/dL (32.0-36.0); MEAN CORPUSCULAR VOLUME 94 fl (80-97); PLATELET COUNT 308 10^3/uL (150-450); RED BLOOD COUNT 3.43 10^6/uL (4.35-5.55); RED CELL DISTRIBUTION WIDTH 16.2 % (11.5-14.0); WHITE BLOOD COUNT 14.6 10^3/uL (4.0-10.5)
[2018-07-02 11:12] LABS: INTERNATIONAL RATION (INR) 1.19; PROTHROMBIN TIME 15.7 SEC (11.4-15.4)
[2018-07-02] MEDS ORDERED: VANCOMYCIN HCL INJ 1000 MG VIAL IV ONE (11:14)
[2018-07-02] MEDS ORDERED: PIPERACILLIN/TAZOBACTAM 3.375 GM VIAL IV ONE (11:14)
--- NOTE | 2018-07-02 11:23 | RADIOLOGY REPORT (SQ) ---
EXAM DESCRIPTION: CHEST SINGLE VIEW COMPLETED DATE/TIME: 07/02/2018 11:08 am REASON FOR STUDY: sepsis alert COMPARISON: 06/21/2018 EXAM PARAMETERS: NUMBER OF VIEWS: One view. TECHNIQUE: Single frontal radiographic view of the chest acquired. RADIATION DOSE: NA LIMITATIONS: None. FINDINGS: LUNGS AND PLEURA: There is focal opacification in the medial right base. MEDIASTINUM AND HILAR STRUCTURES: No masses. Contour normal. HEART AND VASCULAR STRUCTURES: Cardiomegaly. No rosario pulmonary edema. BONES: No acute findings. HARDWARE: Loop recorder. OTHER: No other significant finding. IMPRESSION: There appears to be a residual consolidation in the medial right base. There is cardiom egaly without pulmonary edema. TECHNICAL DOCUMENTATION: JOB ID: [id number] [employer]- All Rights Reserved Reading location - IP/workstation name: [email or web address]
[2018-07-02 11:33] LABS: ALANINE AMINOTRANSFERASE 37 U/L (21-72); ALBUMIN 3.2 g/dL (3.5-5.0); ALKALINE PHOSPHATASE 116 U/L (38-126); ANION GAP 7 (5-19); ASPARTATE AMINO TRANSFERASE 13 U/L (17-59); BILIRUBIN,DIRECT 0.4 mg/dL (0.0-0.4); BILIRUBIN,TOTAL 0.4 mg/dL (0.2-1.3); BLOOD UREA NITROGEN 43 mg/dL (7-20); CALCIUM 8.4 mg/dL (8.4-10.2); CHLORIDE 96 mmol/L (98-107); GLUCOSE 227 mg/dL (75-110); SODIUM 142.9 mmol/L (137-145); TOTAL PROTEIN 5.4 g/dL (6.3-8.2)
[2018-07-02 11:35] LABS: ABSOLUTE MONOCYTES # (MANUAL) 0.1 10^3/uL (0.1-1.4); ABSOLUTE NEUTROPHILS# (MANUAL) 13.4 10^3/uL (1.7-8.2); BASOPHILS % (MANUAL) 0 % (0-2); CREATINE KINASE < 20 U/L (55-170); EOSINOPHILS % (MANUAL) 0 % (0-6); LYMPHOCYTES % (MANUAL) 7 % (13-45); METAMYELOCYTES % (MANUAL) 1 % (0); MONOCYTES % (MANUAL) 1 % (3-13); SEGMENTED NEUTROPHILS % (MAN) 91 % (42-78); TOTAL CELLS COUNTED 100
[2018-07-02 11:36] LABS: ANISOCYTOSIS 1+; POLYCHROMASIA SLIGHT; TOXIC GRANULATION SLIGHT
[2018-07-02 11:37] LABS: PLATELET COMMENT ADEQUATE
[2018-07-02 11:57] LABS: CARBON DIOXIDE 40 mmol/L (22-30); POTASSIUM 6.4 mmol/L (3.6-5.0)
[2018-07-02] MEDS ORDERED: ETOMIDATE INJ/PF 20 MG/10 ML SDV IV ONE (12:03)
[2018-07-02] MEDS ORDERED: VECURONIUM BROMIDE INJ 10 MG VIAL IV ONE (12:04)
[2018-07-02] MEDS ORDERED: NOREPINEPHRINE BITARTRATE INJ/PF 4 MG/4 ML SDV IV ONE (12:24)
[2018-07-02] MEDS ORDERED: DEXTROSE 5%-WATER 250 ML with NOREPINEPHRINE BITARTRATE 4 MG IV PRN ×2 (12:50)
--- NOTE | 2018-07-02 13:22 | RADIOLOGY REPORT (SQ) ---
EXAM DESCRIPTION: CHEST SINGLE VIEW COMPLETED DATE/TIME: 07/02/2018 1:00 pm REASON FOR STUDY: ET TUBE PLACEMENT/ CENTRAL LINE PLACEMENT COMPARISON: AP chest 07/02/[address] chest 06/21/2018 AP chest 06/21/2018 EXAM PARAMETERS: NUMBER OF VIEWS: One view. TECHNIQUE: Single frontal radiographic view of the chest acquired. RADIATION DOSE: NA LIMITATIONS: None. FINDINGS: LUNGS AND PLEURA: Dense consolidation throughout the right lower lobe and right middle lob e. Patchy right upper lobe consolidation. Findings are worrisome for pneumonia, and have progressed since 07/02/2018 at 1057 hours. Question aspiration. Left lung is well inflated and clear. No left pleural effusion. No right or left pneumothorax. No right pleural effusion MEDIASTINUM AND HILAR STRUCTURES: No masses. Contour normal. HEART AND VASCULAR STRUCTURES: Stable cardiomegaly. Loop recorder over the low anterior left chest BONES: No acute findings. HARDWARE: Endotracheal tube tip 3 cm above the gerhard. Nasogastric tube tip and side port below the hemidiaphragms OTHER: No other significant finding. IMPRESSION: Interval intubation. ETT, NG tube in good positioning. Collapse and consolidation in the right middle and lower lobe. Patchy right perihilar airspace disea se. Question aspiration TECHNICAL DOCUMENTATION: JOB ID: [id number] [employer]- All Rights Reserved Reading location - IP/workstation name: [email or web address]
[2018-07-02 13:40] LABS: APPEARANCE,URINE CLEAR; BILIRUBIN,URINE NEGATIVE (NEGATIVE); COLOR,URINE YELLOW; GLUCOSE, URINE NEGATIVE (NEGATIVE); KETONES,URINE NEGATIVE (NEGATIVE); LEUKOCYTE ESTERASE,URINE NEGATIVE (NEGATIVE); NITRITE,URINE NEGATIVE (NEGATIVE); PROTEIN,URINE NEGATIVE (NEGATIVE); URINE SPECIFIC GRAVITY 1.013; UROBILINOGEN,URINE NEGATIVE mg/dL (<2.0)
[2018-07-02] MEDS ORDERED: LORAZEPAM INJ 2 MG/1 ML VIAL IV ONE (14:21)
[2018-07-02] MEDS: MIDAZOLAM HCL 50 MG/100 ML RTUINJ IV PRN ×2 (14:29→14:32)
[2018-07-02 15:20] VITALS: BP 92/42
--- NOTE | 2018-07-02 16:28 | EKG REPORT ---
SEVERITY:- ABNORMAL ECG - ATRIAL FLUTTER WITH 2:1 AV BLOCK RIGHT BUNDLE BRANCH BLOCK INFERIOR INFARCT, ACUTE : Confirmed by: Dima Rodríguez MD 02-Jul-2018 16:28:06
== END 2018-07-02 15:38 | disposition short-term general hospital (02) ==
LOC: ER 10:41
PROC: 06HM33Z Insertion of Infusion Device into Right Femoral Vein, Percutaneous Approach (ICD-10-PCS; principal; 2018-07-02)
PROC: 0BH17EZ Insertion of Endotracheal Airway into Trachea, Via Natural or Artificial Opening (ICD-10-PCS; 2018-07-02)
DX: J96.00 Acute respiratory failure, unspecified whether with hypoxia or hypercapnia (principal); J43.2 Centrilobular emphysema; J18.9 Pneumonia, unspecified organism; I50.9 Heart failure, unspecified; I11.0 Hypertensive heart disease with heart failure; E11.9 Type 2 diabetes mellitus without complications
CPT/HCPCS: 93005; 99291; 96361; 51702; 96375; 96365; 96366; 96367; 36415; 87040; 87086; 82962; 82550; 85025; 85610; 87077; 80053; 81001; 84484; 87186; 82803; 83605; 71045; 94660 ×2; 93010; 36556; 31500; C1751; J3490 ×3; J2060; J2250; J7060; J7030; J3370; J2543

== ENCOUNTER 2018-07-09 14:14 | Inpatient (IN) | payer MEDICARE, BC ==
--- NOTE | 2018-07-09 15:04 | RADIOLOGY REPORT (SQ) ---
EXAM DESCRIPTION: CHEST SINGLE VIEW COMPLETED DATE/TIME: 07/09/2018 2:44 pm REASON FOR STUDY: History of COPD COMPARISON: 07/02/2018 EXAM PARAMETERS: NUMBER OF VIEWS: One view. TECHNIQUE: Single frontal radiographic view of the chest acquired. RADIATION DOSE: NA LIMITATIONS: None. FINDINGS: LUNGS AND PLEURA: No opacities, masses or pneumothorax. No pleural effusion. MEDIASTINUM AND HILAR STRUCTURES: No masses. Contour normal. HEART AND VASCULAR STRUCTURES: Cardiomegaly. BONES: No acute findings. HARDWARE: None in the chest. OTHER: No other significant finding. IMPRESSION: Cardiomegaly without acute abnormality of the lungs in AP projection. TECHNICAL DOCUMENTATION: JOB ID: [id number] [employer]- All Rights Reserved Reading location - IP/workstation name: [email or web address]
[2018-07-09 15:42] LABS: ABSOLUTE BASOPHILS # (AUTO) 0.1 10^3/uL (0.0-0.2); ABSOLUTE EOSINOPHILS # (AUTO) 0.2 10^3/uL (0.0-0.6); ABSOLUTE LYMPHOCYTES (AUTO) 0.5 10^3/uL (0.5-4.7); ABSOLUTE MONOCYTES (AUTO) 0.6 10^3/uL (0.1-1.4); ABSOLUTE NEUT (AUTO) 6.8 10^3/uL (1.7-8.2); BASOPHILS % (AUTO) 0.8 % (0-2); EOSINOPHILS % (AUTO) 2.9 % (0-6); HEMATOCRIT 30.1 % (37.9-51.0); HEMOGLOBIN 9.5 g/dL (13.5-17.0); LYMPHOCYTES % (AUTO) 6.4 % (13-45); MEAN CORPUSCULAR HEMOGLOBIN 29.6 pg (27.0-33.4); MEAN CORPUSCULAR HGB CONC 31.6 g/dL (32.0-36.0); MEAN CORPUSCULAR VOLUME 94 fl (80-97); PLATELET COUNT 169 10^3/uL (150-450); RED BLOOD COUNT 3.21 10^6/uL (4.35-5.55); SEGMENTED NEUTROPHILS % (AUTO) 82.9 % (42-78); TOTAL CELLS COUNTED % (AUTO) 100 %; WHITE BLOOD COUNT 8.2 10^3/uL (4.0-10.5)
[2018-07-09 16:06] LABS: ALANINE AMINOTRANSFERASE 23 U/L (21-72); ALBUMIN 3.1 g/dL (3.5-5.0); ALKALINE PHOSPHATASE 101 U/L (38-126); ANION GAP 7 (5-19); ASPARTATE AMINO TRANSFERASE 9 U/L (17-59); BILIRUBIN,DIRECT 0.3 mg/dL (0.0-0.4); BILIRUBIN,TOTAL 0.4 mg/dL (0.2-1.3); BLOOD UREA NITROGEN 26 mg/dL (7-20); CALCIUM 8.5 mg/dL (8.4-10.2); CARBON DIOXIDE 35 mmol/L (22-30); CHLORIDE 102 mmol/L (98-107); GLUCOSE 180 mg/dL (75-110); POTASSIUM 4.9 mmol/L (3.6-5.0); SODIUM 143.5 mmol/L (137-145); TOTAL PROTEIN 5.3 g/dL (6.3-8.2)
--- NOTE | 2018-07-09 16:16 | ER Document Report ---
ED Dizziness/Weakness - General Chief Complaint: Altered Mental Status Stated Complaint: DIFFICULTY BREATHING Time Seen by Provider: 07/09/18 14:52 Primary Care Provider: HILARIA ALFARO MD [Primary Care Provider] - Follow up as needed Notes: 68-year-old male brought in for evaluation from the [facility] for increased somnolence. Patient was discharged [facility] ago from [facility] [place] for ARDS and respiratory failure. Was intubated. Survived this incident and was discharged to a longterm facility. Over the last 4 days his mental status and symptoms have worsened. Family members are concerned that he has hypercarbic. Increased fluid retention in his hands and legs as well. He will not stay awake. He will not do any of his physical therapy. TRAVEL OUTSIDE OF THE [place] IN LAST 30 DAYS: No - HPI Patient complains to provider of: Weakness Onset/Duration: Gradual, Worse Quality of pain: No pain Severity: Moderate - Related Data Allergies/Adverse Reactions: No Known Allergies Allergy (Verified 06/21/18 04:09) Past Medical History - General Information source: [facility] Records Cannot obtain history due to: Altered mental status - Social History Smoking Status: Unknown if Ever Smoked Frequency of alcohol use: None Drug Abuse: None Lives with: Spouse/Significant other Family History: CAD, COPD, DM, Hypertension, Malignancy Patient has suicidal ideation: No Patient has homicidal ideation: No - Past Medical History Cardiac Medical History: Reports: Hx Congestive Heart Failure, Hx Hypercholesterolemia, Hx Hypertension Denies: Hx Heart Attack Pulmonary Medical History: Reports: Hx COPD Comment Only: Hx Asthma - ? Neurological Medical History: Denies: Hx Cerebrovascular Accident, Hx Seizures Endocrine Medical History: Reports: Hx Diabetes Mellitus Type 2. Denies: Hx Diabetes Mellitus Type 1, Hx Hyperthyroidism, Hx Hypothyroidism Renal/ Medical History: Denies: Hx Peritoneal Dialysis Malignancy Medical History: Reports Hx Lymphoma GI Medical History: Denies: Hx Hepatitis, Hx Hiatal Hernia, Hx Ulcer Musculoskeletal Medical History: Reports Hx Arthritis, Reports Hx Musculoskeletal Deformity, Reports Hx Musculoskeletal Trauma Traumatic Medical History: Reports: Hx Fractures. Denies: Hx Traumatic Brain Injury Infectious Medical History: Denies: Hx Hepatitis, Hx HIV Past Surgical History: Reports: Hx Neurologic Surgery - Spinal tumor removed, Hx Testicular Surgery - James's gangrene, Other - Neurosurgical removal of a spinal tumor. Denies: Hx Open Heart Surgery, Hx Pacemaker - Immunizations Hx Diphtheria, Pertussis, Tetanus Vaccination: Yes Review of Systems - Review of Systems -: Yes ROS unobtainable due to patient's medical condition - Patient is too somnolent to cooperate with exam. Physical Exam - Vital signs Vitals: Resp 23 H 07/09/18 14:20 Interpretation: Normal - Notes Notes: This is a morbidly obese 123 kg somnolent individual - General General appearance: Lethargic - HEENT Head: Normocephalic, Atraumatic Eyes: Normal Pupils: PERRL - Respiratory Respiratory status: Depressed respirations Chest status: Nontender Breath sounds: Wheezing Chest palpation: Normal - Cardiovascular Rhythm: Regular Heart sounds: Normal auscultation Murmur: No - Abdominal Inspection: Normal Distension: No distension Bowel sounds: Normal Tenderness: Nontender Organomegaly: No organomegaly - Back Back: Normal, Nontender - Extremities General upper extremity: Nontender, Edema, Normal color, Normal ROM, Normal temperature. No: Normal inspection General lower extremity: Nontender, Edema - 2+ pitting edema bilateral lower extremities., Normal color, Normal ROM, Normal temperature. No: Preston's sign - Neurological Neuro grossly intact: Yes Cognition: Normal Orientation: Disoriented to place, Disoriented to time [place] Coma Scale Eye Opening: To Voice [place] Coma Scale Verbal: Confused Lexii Coma Scale Motor: Obeys Commands Lexii Coma Scale Total: 13 Speech: Normal Motor strength normal: LUE, RUE, LLE, RLE Sensory: Normal - Skin Skin Temperature: Warm Skin Moisture: Dry Skin Color: Normal Course - Re-evaluation Re-evalutation: 07/09/18 16:45 Laboratory 07/09/18 07/09/18 15:28 15:28 WBC 8.2 RBC 3.21 L Hgb 9.5 L Hct 30.1 L MCV 94 MCH 29.6 MCHC 31.6 L RDW 17.0 H Plt Count 169 Seg Neutrophils % 82.9 H Lymphocytes % 6.4 L Monocytes % 7.0 Eosinophils % 2.9 Basophils % 0.8 Absolute Neutrophils 6.8 Absolute Lymphocytes 0.5 Absolute Monocytes 0.6 Absolute Eosinophils 0.2 Absolute Basophils 0.1 Sodium 143.5 Potassium 4.9 Chloride 102 Carbon Dioxide 35 H Anion Gap 7 BUN 26 H Creatinine 0.60 Est GFR ( Amer) > 60 Est GFR (Non-Af Amer) > 60 Glucose 180 H Calcium 8.5 Total Bilirubin 0.4 Direct Bilirubin 0.3 Neonat Total Bilirubin Not Reportable Neonat Direct Bilirubin Not Reportable Neonat Indirect Bili Not Reportable AST 9 L ALT 23 Alkaline Phosphatase 101 Total Protein 5.3 L Albumin 3.1 L 07/09/18 17:34 Patient's ABG with PCO2 of over 100. Acidotic at 7.20. Will attempt BiPAP at this time. Will consult with the hospitalist for admission. 07/09/18 17:34 Chest X-Ray 07/09/18 14:23 IMPRESSION: Cardiomegaly without acute abnormality of the lungs in AP projection. - Vital Signs Vital signs: Temp Pulse Resp BP Pulse Ox 98.3 F 17 173/67 H 96 07/09/18 14:46 07/09/18 16:00 07/09/18 14:21 07/09/18 16:00 - Laboratory Result Diagrams: 07/09/18 15:28 07/09/18 15:28 Laboratory results interpreted by me: 07/09/18 07/09/18 07/09/18 15:28 15:28 15:28 RBC 3.21 L Hgb 9.5 L Hct 30.1 L MCHC 31.6 L RDW 17.0 H Seg Neutrophils % 82.9 H Lymphocytes % 6.4 L Carbonic Acid ABG pH ABG pCO2 ABG pO2 ABG HCO3 ABG Total CO2 ABG O2 Saturation VBG pH 7.20 L VBG pCO2 101.9 H* VBG HCO3 39.3 H Carbon Dioxide 35 H BUN 26 H Glucose 180 H AST 9 L NT-Pro-B Natriuret Pep Total Protein 5.3 L Albumin 3.1 L 07/09/18 07/09/18 15:28 16:55 RBC Hgb Hct MCHC RDW Seg Neutrophils % Lymphocytes % Carbonic Acid 2.52 H ABG pH 7.25 L ABG pCO2 83.7 H* ABG pO2 76.6 L ABG HCO3 35.8 H ABG Total CO2 38.4 H ABG O2 Saturation 92.3 L VBG pH VBG pCO2 VBG HCO3 Carbon Dioxide BUN Glucose AST NT-Pro-B Natriuret Pep 9160 H Total Protein Albumin Critical Care Note - Critical Care Note Total time excluding time spent on procedures (mins): 45 Comments: Acidosis, hypercarbia, altered mental status, consultation with specialist Discharge - Discharge Clinical Impression: Congestive heart failure Qualifiers: Heart failure type: unspecified Heart failure chronicity: unspecified Qualified Code(s): I50.9 - Heart failure, unspecified Respiratory failure Qualifiers: Chronicity: acute on chronic Respiratory failure complication: hypercapnia Qualified Code(s): J96.22 - Acute and chronic respiratory failure with hypercapnia Condition: Fair Disposition: ADMITTED INPATIENT Admitting Provider: Cruz (Hospitalist) Unit Admitted: IMCU Referrals: HILARIA ALFARO MD [Primary Care Provider] - Follow up as needed
[2018-07-09 17:00] LABS: VENOUS BLOOD HCO3 39.3 mmol/L (20-32); VENOUS BLOOD PH 7.2 (7.30-7.42)
[2018-07-09 17:03] LABS: VENOUS BLOOD PCO2 101.9 mmHg (35-63)
[2018-07-09 17:25] LABS: TROPONIN I 0.019 ng/mL
[2018-07-09] MEDS ORDERED: FUROSEMIDE INJ/PF 40 MG/4 ML SDV IV ONE (17:34)
[2018-07-09 17:38] LABS: ARTERIAL BLOOD BASE EXCESS 6.5 mmol/L; ARTERIAL BLOOD H2CO3 2.52 mmol/L (1.05-1.35); ARTERIAL BLOOD HCO3 35.8 mmol/L (20-24); ARTERIAL BLOOD O2 SATURATION 92.3 % (94-98); ARTERIAL BLOOD PH 7.25 (7.35-7.45); ARTERIAL BLOOD PO2 76.6 mmHg (80-100); ARTERIAL BLOOD TOTAL CO2 38.4 mmol/L (23-27)
[2018-07-09 17:40] LABS: ARTERIAL BLOOD FIO2 3L; ARTERIAL BLOOD PCO2 83.7 mmHg (35-45)
[2018-07-09] MEDS ORDERED: ACETAMINOPHEN 325 MG TABLET PO PRN (17:57)
[2018-07-09] MEDS ORDERED: ONDANSETRON HCL INJ/PF 4 MG/2 ML SDV IV PRN (17:57)
[2018-07-09] MEDS ORDERED: IPRATROPIUM/ALBUTEROL 0.5-2.5 MG/3 ML AMPUL NEB PRN (17:57)
[2018-07-09] MEDS ORDERED: GLUCAGON,HUMAN RECOMB 1 MG INJ IM PRN (18:03)
[2018-07-09] MEDS ORDERED: DEXTROSE 40% GEL 15 GM TUBE PO PRN ×2 (18:03)
[2018-07-09] MEDS ORDERED: DEXTROSE 50%-WATER 25 GM/50 ML DISP.SYRIN IV PRN ×2 (18:03)
--- NOTE | 2018-07-09 18:20 | PDOC H&P ---
History of Present Illness Admission Date/PCP: HILARIA ALFARO MD History of Present Illness: THEODORE SON is a 68 year old male patient with multiple comorbidities including congestive heart failure, hypertension, hyperlipidemia, type 2 diabetes mellitus, history of lymphoma, morbid obesity, COPD brought from [facility] for evaluation due to increased somnolence. When I see the patient, he is obtunded and when I called his name he wakes up and quickly fall asleep. Of note the patient was discharged 4 days ago from [facility] in [place] for ARDS and respiratory failure. He was intubated at that time. Patient discharged from [facility] to [facility]. The last 4 days his mental status and symptoms have worsened. Family members are concerned by his situation. Brief history is obtained from the ER attending note, previous charts and medical record and from his who is in the room during my encounter. Of note patient has history of recurrent respiratory failure which requires intubation and mechanical ventilation. This year alone patient has been admitted 3 times to this hospital's ICU. There is no report of fever chills palpitation or diaphoresis. Further detailed history and review of systems unobtainable. I reviewed his labs and it shows BNP of 9160 and his ABG shows acidosis with pH of 7.25 PcO2 of 83.7 PO2 of 76. His chest x-ray shows cardiomegaly. Past Medical History Cardiac Medical History: Reports: Congestive Heart Failure, Hyperlipidema, Hypertension Denies: Myocardial Infarction Pulmonary Medical History: Reports: Chronic Obstructive Pulmonary Disease (COPD) Comment Only: Asthma - ? Neurological Medical History: Denies: Seizures Endocrine Medical History: Reports: Diabetes Mellitus Type 2 Denies: Diabetes Mellitus Type 1, Hyperthyroidism, Hypothyroidism Malignancy Medical History: Reports: Lymphoma GI Medical History: Denies: Hepatitis, Hiatal Hernia Musculoskeltal Medical History: Reports: Arthritis Traumatic Medical History: Denies: Traumatic Brain Injury Hematology: Denies: Anemia, Sickle Cell Disease Infectious Medical History: Denies: HIV Past Surgical History Past Surgical History: Reports: Other - Neurosurgical removal of a spinal tumor Denies: Pacemaker Social History Lives with: Spouse/Significant other Smoking Status: Former Smoker Frequency of Alcohol Use: None Hx Recreational Drug Use: No Drugs: None Hx Prescription Drug Abuse: No - Advance Directive Resuscitation Status: Full Code Family History Family History: CAD, COPD, DM, Hypertension, Malignancy Parental Family History Reviewed: Yes Children Family History Reviewed: Yes Sibling(s) Family History Reviewed.: Yes Medication/Allergy Home Medications: Acetaminophen [Tylenol 325 mg Tablet] 650 mg PO Q6HP PRN 06/21/18 Acetylcysteine [Mucomist 20% Soln 800 mg/4 mL] 600 mg NEB Q12 06/21/18 Aspirin [Ecotrin 81 mg EC Tablet] 81 mg PO DAILY 06/21/18 Digoxin [Lanoxin 0.125 mg Tablet] 0.125 mg PO DAILY 06/21/18 Divalproex Sodium [Depakote] 125 mg PO QAM 06/21/18 Divalproex Sodium [Depakote] 500 mg PO QHS 06/21/18 Furosemide [Lasix 20 mg Tablet] 20 mg PO BID 06/21/18 Haloperidol [Haldol 1 mg Tablet] 0.5 mg PO QHS 06/21/18 Hydrocodone/Acetaminophen [[place] 5-325 Tablet] 1 tab PO Q4HP PRN 06/21/18 Insulin Lispro [Humalog Insulin (Lispro) 100 unit/mL] 0 units SQ .SLIDING SCALE 06/21/18 Ipratropium/Albuterol Sulfate [Duoneb 3 ml Ampul] 3 ml NEB Q6 06/21/18 Levalbuterol HCl [Xopenex] 0.63 mg NEB Q4HP PRN 06/21/18 Magnesium Oxide [Mag-Ox 400 mg Tablet] 400 mg PO DAILY 06/21/18 Metoprolol Tartrate [Lopressor 25 mg Tablet] 25 mg PO Q12 06/21/18 Potassium Chloride [K-Tab ER] 40 meq PO DAILY 06/21/18 Trazodone HCl [Desyrel] 100 mg PO QHS 06/21/18 Allergies/Adverse Reactions: No Known Allergies Allergy (Verified 06/21/18 04:09) Review of Systems ROS unobtainable: Due to mental status Physical Exam Vital Signs: Temp Pulse Resp BP Pulse Ox 98.3 F 17 173/67 H 96 07/09/18 14:46 07/09/18 16:00 07/09/18 14:21 07/09/18 16:00 Intake & Output 07/08/18 07/09/18 07/10/18 06:59 06:59 06:59 Weight 123.3 kg General appearance: PRESENT: morbidly obese, severe distress Head exam: PRESENT: atraumatic Eye exam: PRESENT: conjunctiva pink Mouth exam: PRESENT: dry mucosa Neck exam: ABSENT: carotid bruit, JVD, lymphadenopathy, thyromegaly Respiratory exam: PRESENT: decreased breath sounds, rales, wheezes Cardiovascular exam: PRESENT: RRR. ABSENT: diastolic murmur, rubs, systolic murmur GI/Abdominal exam: PRESENT: normal bowel sounds, soft. ABSENT: distended, guarding, mass, organolmegaly, rebound, tenderness Extremities exam: PRESENT: +2 edema Neurological exam: PRESENT: altered Results Laboratory Results: 07/09/18 15:28 07/09/18 15:28 07/09/18 07/09/18 07/09/18 15:28 15:28 15:28 WBC 8.2 RBC 3.21 L Hgb 9.5 L Hct 30.1 L MCV 94 MCH 29.6 MCHC 31.6 L RDW 17.0 H Plt Count 169 Seg Neutrophils % 82.9 H Lymphocytes % 6.4 L Monocytes % 7.0 Eosinophils % 2.9 Basophils % 0.8 Absolute Neutrophils 6.8 Absolute Lymphocytes 0.5 Absolute Monocytes 0.6 Absolute Eosinophils 0.2 Absolute Basophils 0.1 Carbonic Acid HCO3/H2CO3 Ratio ABG pH ABG pCO2 ABG pO2 ABG HCO3 ABG O2 Saturation ABG Base Excess VBG pH 7.20 L VBG pCO2 101.9 H* VBG HCO3 39.3 H VBG Base Excess 8.0 FiO2 Sodium 143.5 Potassium 4.9 Chloride 102 Carbon Dioxide 35 H Anion Gap 7 BUN 26 H Creatinine 0.60 Est GFR ( Amer) > 60 Est GFR (Non-Af Amer) > 60 Glucose 180 H Calcium 8.5 Total Bilirubin 0.4 AST 9 L ALT 23 Alkaline Phosphatase 101 Total Protein 5.3 L Albumin 3.1 L 07/09/18 16:55 WBC RBC Hgb Hct MCV MCH MCHC RDW Plt Count Seg Neutrophils % Lymphocytes % Monocytes % Eosinophils % Basophils % Absolute Neutrophils Absolute Lymphocytes Absolute Monocytes Absolute Eosinophils Absolute Basophils Carbonic Acid 2.52 H HCO3/H2CO3 Ratio 14:1 ABG pH 7.25 L ABG pCO2 83.7 H* ABG pO2 76.6 L ABG HCO3 35.8 H ABG O2 Saturation 92.3 L ABG Base Excess 6.5 VBG pH VBG pCO2 VBG HCO3 VBG Base Excess FiO2 3L Sodium Potassium Chloride Carbon Dioxide Anion Gap BUN Creatinine Est GFR ( Amer) Est GFR (Non-Af Amer) Glucose Calcium Total Bilirubin AST ALT Alkaline Phosphatase Total Protein Albumin 07/09/18 15:28 Troponin I 0.019 NT-Pro-B Natriuret Pep 9160 H Impressions: Chest X-Ray 07/09/18 14:23 IMPRESSION: Cardiomegaly without acute abnormality of the lungs in AP projection. Assessment and Plan - Diagnosis (1) A/C hypoxemic and hypercarbic respirator Is this a current diagnosis for this admission?: Yes Plan: Patient has history of recurrent admission with the same diagnosis which requires intubation. His ABG shows hypercarbia and respiratory acidosis with pH of 7.25 and hypoxia with PO2 of 76. Patient was put on BiPAP and will be admitted to ICU. (2) Acute on chronic systolic congestive heart failure, NYHA class 3 Is this a current diagnosis for this admission?: Yes Plan: Patient has underlying congestive heart failure. He has bilateral +2 pitting edema. Patient has been started on IV Lasix and will continue for his cardioprotective medications. (3) Acute encephalopathy Is this a current diagnosis for this admission?: Yes Plan: The cause for his acute encephalopathy is multifactorial which includes metabolic and also drug-induced like Neurontin and Keppra. I will hold his Keppra and other sedatives. (4) Type 2 diabetes mellitus Is this a current diagnosis for this admission?: Yes Plan: I will continue his home medication and put him on sliding scale. In the meantime will evaluate the status of his hemoglobin A1c. (5) Hypertension Qualifiers: Hypertension type: essential hypertension Qualified Code(s): I10 - Essential (primary) hypertension Is this a current diagnosis for this admission?: Yes Plan: I will revise his medication and adjust accordingly. (6) Hyperlipidemia Qualifiers: Hyperlipidemia type: unspecified Qualified Code(s): E78.5 - Hyperlipidemia, unspecified Is this a current diagnosis for this admission?: Yes Plan: Continue his statin (7) Morbid obesity with BMI of 45.0-49.9, adult Is this a current diagnosis for this admission?: Yes Plan: Patient will be encouraged to do lifestyle modification when he wakes up. (8) COPD (chronic obstructive pulmonary disease) Qualifiers: Emphysema type: unspecified Is this a current diagnosis for this admission?: Yes Plan: Continue BiPAP, bronchodilators and steroids. (9) History of lymphoma Is this a current diagnosis for this admission?: Yes Plan: In remission. - Inpatient Certification Medical Necessity: Need Close Monitoring Due to Risk of Patient Decompensation, Risk of Complication if Not Cared For in Hospital
[2018-07-09 18:33] LABS: DIGOXIN 0.97 ng/mL (0.8-2.0)
[2018-07-09] MEDS ORDERED: TIOTROPIUM BROMIDE DPI 5 CAP/KIT (18 MCG/CAP) IH ONE ×2 (19:00→22:52)
[2018-07-09] MEDS ORDERED: LACTULOSE SYRUP 20 GM/30 ML UDCUP PO ONE ×2 (20:00→23:00)
[2018-07-09] MEDS: BUDESONIDE NEB 0.5 MG/2 ML AMPUL NEB SCH (20:27)
[2018-07-09] MEDS: IPRATROPIUM/ALBUTEROL 0.5-2.5 MG/3 ML AMPUL NEB SCH (20:28)
[2018-07-09 21:03] LABS: ARTERIAL BLOOD BASE EXCESS 7.3 mmol/L; ARTERIAL BLOOD H2CO3 2.36 mmol/L (1.05-1.35); ARTERIAL BLOOD HCO3 35.8 mmol/L (20-24); ARTERIAL BLOOD O2 SATURATION 96.5 % (94-98); ARTERIAL BLOOD PH 7.28 (7.35-7.45); ARTERIAL BLOOD PO2 100.7 mmHg (80-100); ARTERIAL BLOOD TOTAL CO2 38.2 mmol/L (23-27)
[2018-07-09 21:06] LABS: ARTERIAL BLOOD FIO2 40%; ARTERIAL BLOOD PCO2 78.4 mmHg (35-45)
--- NOTE | 2018-07-09 22:32 | EKG REPORT ---
SEVERITY:- ABNORMAL ECG - SINUS RHYTHM RIGHT BUNDLE BRANCH BLOCK INFERIOR INFARCT, AGE INDETERMINATE ANTERIOR INFARCT, OLD : Confirmed by: Harjinder Pierce 09-Jul-2018 22:31:10
[2018-07-09] MEDS: FONDAPARINUX SODIUM INJ 2.5 MG/0.5 ML DISP.SYRIN SUBCUT SCH (22:34)
[2018-07-09] MEDS: METOPROLOL TARTRATE 25 MG TABLET PO SCH (22:36)
[2018-07-09] MEDS: FUROSEMIDE INJ/PF 40 MG/4 ML SDV IV SCH (22:37)
[2018-07-09] MEDS: INSULIN LISPRO 100 UNIT/ML 3 ML VIAL SUBCUT SCH (22:43)
[2018-07-10] MEDS ORDERED: METHYLPREDNISOLONE INJ 40 MG/1 ML SDV IV SCH
[2018-07-10] MEDS: IPRATROPIUM/ALBUTEROL 0.5-2.5 MG/3 ML AMPUL NEB SCH ×6 (00:54→20:51)
[2018-07-10] MEDS: DOCUSATE SODIUM 100 MG/10 ML UDC PO SCH ×3 (03:16→17:24)
[2018-07-10 05:51] LABS: ABSOLUTE EOSINOPHILS # (AUTO) 0.2 10^3/uL (0.0-0.6); ABSOLUTE LYMPHOCYTES (AUTO) 0.6 10^3/uL (0.5-4.7); ABSOLUTE MONOCYTES (AUTO) 0.6 10^3/uL (0.1-1.4); ABSOLUTE NEUT (AUTO) 5.1 10^3/uL (1.7-8.2); BASOPHILS % (AUTO) 0.7 % (0-2); EOSINOPHILS % (AUTO) 3.8 % (0-6); HEMATOCRIT 25.7 % (37.9-51.0); HEMOGLOBIN 8.4 g/dL (13.5-17.0); LYMPHOCYTES % (AUTO) 9.1 % (13-45); MEAN CORPUSCULAR HEMOGLOBIN 29.9 pg (27.0-33.4); MEAN CORPUSCULAR HGB CONC 32.7 g/dL (32.0-36.0); MEAN CORPUSCULAR VOLUME 91 fl (80-97); MONOCYTES % (AUTO) 9.1 % (3-13); PLATELET COUNT 146 10^3/uL (150-450); RED BLOOD COUNT 2.82 10^6/uL (4.35-5.55); RED CELL DISTRIBUTION WIDTH 15.9 % (11.5-14.0); SEGMENTED NEUTROPHILS % (AUTO) 77.3 % (42-78); TOTAL CELLS COUNTED % (AUTO) 100 %; WHITE BLOOD COUNT 6.6 10^3/uL (4.0-10.5)
[2018-07-10] MEDS ORDERED: PANTOPRAZOLE SODIUM 40 MG TABLET.DR PO SCH (06:00)
[2018-07-10 06:14] LABS: ALANINE AMINOTRANSFERASE 21 U/L (21-72); ALBUMIN 2.8 g/dL (3.5-5.0); ALKALINE PHOSPHATASE 83 U/L (38-126); ASPARTATE AMINO TRANSFERASE 12 U/L (17-59); BILIRUBIN,DIRECT 0.4 mg/dL (0.0-0.4); BILIRUBIN,TOTAL 0.5 mg/dL (0.2-1.3); BLOOD UREA NITROGEN 25 mg/dL (7-20); CALCIUM 8.5 mg/dL (8.4-10.2); CARBON DIOXIDE 38 mmol/L (22-30); CHLORIDE 101 mmol/L (98-107); GLUCOSE 136 mg/dL (75-110); POTASSIUM 4.6 mmol/L (3.6-5.0); SODIUM 143.2 mmol/L (137-145)
[2018-07-10 06:19] LABS: ANION GAP 4 (5-19)
[2018-07-10] MEDS: FUROSEMIDE INJ/PF 40 MG/4 ML SDV IV SCH ×3 (06:47→21:52)
[2018-07-10 06:51] LABS: ARTERIAL BLOOD BASE EXCESS 11.5 mmol/L; ARTERIAL BLOOD H2CO3 2.21 mmol/L (1.05-1.35); ARTERIAL BLOOD HCO3 39.2 mmol/L (20-24); ARTERIAL BLOOD O2 SATURATION 98.4 % (94-98); ARTERIAL BLOOD PH 7.35 (7.35-7.45); ARTERIAL BLOOD PO2 135.5 mmHg (80-100); ARTERIAL BLOOD TOTAL CO2 41.5 mmol/L (23-27)
[2018-07-10 06:55] LABS: ARTERIAL BLOOD FIO2 40%
[2018-07-10 07:09] LABS: ARTERIAL BLOOD PCO2 73.4 mmHg (35-45)
[2018-07-10] MEDS: BUDESONIDE NEB 0.5 MG/2 ML AMPUL NEB SCH ×2 (07:33→20:51)
[2018-07-10] MEDS ORDERED: (PENDING PHARMACY ID) (Divalproex Sodium [Depakote] 125 MG) PO SCH (08:00)
[2018-07-10] MEDS: INSULIN LISPRO 100 UNIT/ML 3 ML VIAL SUBCUT SCH ×4 (08:05→21:52)
[2018-07-10] MEDS: DIVALPROEX SODIUM 125 MG CAP.SPRINK PO SCH (09:22)
[2018-07-10] MEDS: MAGNESIUM OXIDE 400 MG TABLET PO SCH (09:22)
[2018-07-10] MEDS: TIOTROPIUM BROMIDE DPI 5 CAP/KIT (18 MCG/CAP) IH SCH (09:22)
[2018-07-10] MEDS: ASPIRIN 81 MG TABLET, ENT COATED PO SCH (09:22)
[2018-07-10] MEDS: DIGOXIN 0.125 MG TABLET PO SCH (09:23)
[2018-07-10] MEDS: FONDAPARINUX SODIUM INJ 2.5 MG/0.5 ML DISP.SYRIN SUBCUT SCH (09:23)
[2018-07-10] MEDS: METOPROLOL TARTRATE 25 MG TABLET PO SCH ×3 (09:23→21:53)
[2018-07-10] MEDS ORDERED: ALBUTEROL SULFATE 0.083% NEB 2.5 MG/3 ML AMPUL NEB PRN (10:39)
[2018-07-10] MEDS ORDERED: ALBUTEROL SULFATE HFA (90 MCG/PUFF) 200 PUFF/8.5 GM MDI IH PRN (10:39)
--- NOTE | 2018-07-10 10:50 | PDOC PROGRESS REPORT ---
Subjective Progress Note for:: 07/10/18 Subjective:: Subjective: THEODORE SON is a 68 year old male patient with multiple comorbidities including congestive heart failure, hypertension, hyperlipidemia, type 2 diabetes mellitus, history of lymphoma, morbid obesity, COPD brought from [facility] for evaluation due to increased somnolence. When I see the patient, he is obtunded and when I called his name he wakes up and quickly fall asleep. Of note the patient was discharged 4 days ago from [facility] in [place] for ARDS and respiratory failure. He was intubated at that time. Patient discharged from [place] to [facility]. The last 4 days his mental status and symptoms have worsened. Family members are concerned by his situation. Brief history is obtained from the ER attending note, previous charts and medical record and from his who is in the room during my encounter. Of note patient has history of recurrent respiratory failure which requires intubation and mechanical ventilation. This year alone patient has been admitted 3 times to this hospital's ICU. There is no report of fever chills palpitation or diaphoresis. Further detailed history and review of systems unobtainable. I reviewed his labs and it shows BNP of 9160 and his ABG shows acidosis with pH of 7.25 PcO2 of 83.7 PO2 of 76. His chest x-ray shows cardiomegaly. 07/10/2018: Patient appears comfortable. He actually lost a lot of weight since I saw him last time in March. He is off BiPAP to take his medications and eat. is at bedside. He seems to be improving and responding to treatment. Physical Exam Patient is no acute distress She is awake, alert and oriented to person No anxiety or depression Head: atraumatic normocephalic Pupils: are equal reactive Neck: is supple and trachea is central no lymphadenopathy No pharyngeal erythema or exudates Heart: Regular rate and rhythm Lungs: Soft inspiratory stridor and faint bilateral crackles Abdomen: nontender nondistended Neurological exam: unremarkable Musculoskeletal: No joint swelling or effusion chronic lower back pain and tende rness No suicidal or homicidal ideation Assessment and Plan (1) A/C hypoxemic and hypercarbic respirator Is this a current diagnosis for this admission?: Yes Plan: Patient has history of recurrent admission with the same diagnosis which requires intubation. His ABG shows hypercarbia and respiratory acidosis with pH of 7.25 and hypoxia with PO2 of 76. Patient was put on BiPAP and will be admitted to ICU. 07/10/2018: Continue BiPAP. Repeat ABG in a.m. Oxygen as needed. (2) Acute on chronic systolic congestive heart failure, NYHA class 3 Is this a current diagnosis for this admission?: Yes Plan: Patient has underlying congestive heart failure. He has bilateral +2 pitting edema. Patient has been started on IV Lasix and will continue for his cardioprotective medications. 07/10/2018: Continue IV Lasix. Monitor daily weight. Monitor input and output. (3) Acute encephalopathy Is this a current diagnosis for this admission?: Yes Plan: The cause for his acute encephalopathy is multifactorial which includes metabolic and also drug-induced like Neurontin and Keppra. I will hold his Keppra and other sedatives. 07/10/2018: Seems to be improving. Continue to monitor. (4) Type 2 diabetes mellitus Is this a current diagnosis for this admission?: Yes Plan: I will continue his home medication and put him on sliding scale. In the meantime will evaluate the status of his hemoglobin A1c. 07/10/2018: Continue insulin sliding scale. (5) Hypertension Qualifiers: Hypertension type: essential hypertension Qualified Code(s): I10 - Essential (primary) hypertension Is this a current diagnosis for this admission?: Yes Plan: I will revise his medication and adjust accordingly. 07/10/18: Continue current meds. Monitor blood pressure. (6) Hyperlipidemia Qualifiers: Hyperlipidemia type: unspecified Qualified Code(s): E78.5 - Hyperlipidemia, unspecified Is this a current diagnosis for this admission?: Yes Plan: Continue his statin (7) Morbid obesity with BMI of 45.0-49.9, adult Is this a current diagnosis for this admission?: Yes Plan: Patient will be encouraged to do lifestyle modification when he wakes up. 07/10/2018: Recommend lifestyle modifications (8) COPD (chronic obstructive pulmonary disease) Qualifiers: Emphysema type: unspecified Is this a current diagnosis for this admission?: Yes Plan: Continue BiPAP, bronchodilators and steroids. 07/10/2018: Continue bronchodilators. The patient is not on steroids. Patient is no wheezing. (9) History of lymphoma Is this a current diagnosis for this admission?: Yes Plan: In remission. Reason For Visit: ACUTE ON CHRONIC HYPOXEMIC RESPIRATORY FAILURE Physical Exam Vital Signs: Temp Pulse Resp BP Pulse Ox 97.6 F 61 14 146/50 H 99 07/10/18 07:49 07/10/18 07:49 07/10/18 07:49 07/10/18 07:49 07/10/18 07:49 Intake & Output 07/09/18 07/10/18 07/11/18 06:59 06:59 06:59 Intake Total 0 Balance 0 Weight 256 lb 6.362 oz Results Laboratory Results: 07/10/18 05:42 07/10/18 05:42 07/09/18 07/09/18 07/09/18 15:28 15:28 15:28 WBC 8.2 RBC 3.21 L Hgb 9.5 L Hct 30.1 L MCV 94 MCH 29.6 MCHC 31.6 L RDW 17.0 H Plt Count 169 Seg Neutrophils % 82.9 H Lymphocytes % 6.4 L Monocytes % 7.0 Eosinophils % 2.9 Basophils % 0.8 Absolute Neutrophils 6.8 Absolute Lymphocytes 0.5 Absolute Monocytes 0.6 Absolute Eosinophils 0.2 Absolute Basophils 0.1 Carbonic Acid HCO3/H2CO3 Ratio ABG pH ABG pCO2 ABG pO2 ABG HCO3 ABG O2 Saturation ABG Base Excess VBG pH 7.20 L VBG pCO2 101.9 H* VBG HCO3 39.3 H VBG Base Excess 8.0 FiO2 Sodium 143.5 Potassium 4.9 Chloride 102 Carbon Dioxide 35 H Anion Gap 7 BUN 26 H Creatinine 0.60 Est GFR ( Amer) > 60 Est GFR (Non-Af Amer) > 60 Glucose 180 H Calcium 8.5 Total Bilirubin 0.4 AST 9 L ALT 23 Alkaline Phosphatase 101 Ammonia Total Protein 5.3 L Albumin 3.1 L TSH 07/09/18 07/09/18 07/10/18 16:55 20:20 05:42 WBC RBC Hgb Hct MCV MCH MCHC RDW Plt Count Seg Neutrophils % Lymphocytes % Monocytes % Eosinophils % Basophils % Absolute Neutrophils Absolute Lymphocytes Absolute Monocytes Absolute Eosinophils Absolute Basophils Carbonic Acid 2.52 H 2.36 H HCO3/H2CO3 Ratio 14:1 15:1 ABG pH 7.25 L 7.28 L ABG pCO2 83.7 H* 78.4 H* ABG pO2 76.6 L 100.7 H ABG HCO3 35.8 H 35.8 H ABG O2 Saturation 92.3 L 96.5 ABG Base Excess 6.5 7.3 VBG pH VBG pCO2 VBG HCO3 VBG Base Excess FiO2 3L 40% Sodium Potassium Chloride Carbon Dioxide Anion Gap BUN Creatinine Est GFR ( Amer) Est GFR (Non-Af Amer) Glucose Calcium Total Bilirubin AST ALT Alkaline Phosphatase Ammonia < 8.7 L Total Protein Albumin TSH 07/10/18 07/10/18 07/10/18 05:42 05:42 05:42 WBC 6.6 RBC 2.82 L Hgb 8.4 L Hct 25.7 L MCV 91 MCH 29.9 MCHC 32.7 RDW 15.9 H Plt Count 146 L Seg Neutrophils % 77.3 Lymphocytes % 9.1 L Monocytes % 9.1 Eosinophils % 3.8 Basophils % 0.7 Absolute Neutrophils 5.1 Absolute Lymphocytes 0.6 Absolute Monocytes 0.6 Absolute Eosinophils 0.2 Absolute Basophils 0.0 Carbonic Acid HCO3/H2CO3 Ratio ABG pH ABG pCO2 ABG pO2 ABG HCO3 ABG O2 Saturation ABG Base Excess VBG pH VBG pCO2 VBG HCO3 VBG Base Excess FiO2 Sodium 143.2 Potassium 4.6 Chloride 101 Carbon Dioxide 38 H Anion Gap 4 L BUN 25 H Creatinine 0.58 Est GFR ( Amer) > 60 Est GFR (Non-Af Amer) > 60 Glucose 136 H Calcium 8.5 Total Bilirubin 0.5 AST 12 L ALT 21 Alkaline Phosphatase 83 Ammonia Total Protein 5.0 L Albumin 2.8 L TSH 1.79 07/10/18 06:40 WBC RBC Hgb Hct MCV MCH MCHC RDW Plt Count Seg Neutrophils % Lymphocytes % Monocytes % Eosinophils % Basophils % Absolute Neutrophils Absolute Lymphocytes Absolute Monocytes Absolute Eosinophils Absolute Basophils Carbonic Acid 2.21 H HCO3/H2CO3 Ratio 17:1 ABG pH 7.35 ABG pCO2 73.4 H* ABG pO2 135.5 H ABG HCO3 39.2 H ABG O2 Saturation 98.4 H ABG Base Excess 11.5 VBG pH VBG pCO2 VBG HCO3 VBG Base Excess FiO2 40% Sodium Potassium Chloride Carbon Dioxide Anion Gap BUN Creatinine Est GFR ( Amer) Est GFR (Non-Af Amer) Glucose Calcium Total Bilirubin AST ALT Alkaline Phosphatase Ammonia Total Protein Albumin TSH 07/09/18 15:28 Troponin I 0.019 NT-Pro-B Natriuret Pep 9160 H Impressions: Chest X-Ray 07/09/18 14:23 IMPRESSION: Cardiomegaly without acute abnormality of the lungs in AP projection.
[2018-07-10] MEDS ORDERED: IPRATROPIUM/ALBUTEROL 0.5-2.5 MG/3 ML AMPUL NEB SCH (12:00)
[2018-07-10 12:05] LABS: ANION GAP 5 (5-19); BLOOD UREA NITROGEN 23 mg/dL (7-20); CALCIUM 8.4 mg/dL (8.4-10.2); CARBON DIOXIDE 39 mmol/L (22-30); CHLORIDE 98 mmol/L (98-107); GLUCOSE 180 mg/dL (75-110); POTASSIUM 4.3 mmol/L (3.6-5.0); SODIUM 141.8 mmol/L (137-145)
[2018-07-10] MEDS: GABAPENTIN 300 MG CAPSULE PO SCH ×2 (12:10→17:24)
--- NOTE | 2018-07-10 16:42 | RADIOLOGY REPORT (SQ) ---
EXAM DESCRIPTION: CHEST SINGLE VIEW COMPLETED DATE/TIME: 07/10/2018 4:18 pm REASON FOR STUDY: CHF COMPARISON: 07/09/2018. 04/23/2018. CT of chest 06/21/2018. EXAM PARAMETERS: NUMBER OF VIEWS: One view. TECHNIQUE: Single frontal radiographic view of the chest acquired. RADIATION DOSE: NA LIMITATIONS: None. FINDINGS: LUNGS AND PLEURA: No acute infiltrates or effusions. MEDIASTINUM AND HILAR STRUCTURES: Right hilum remains prominent. HEART AND VASCULAR STRUCTURES: Borderline cardiac size. BONES: No acute findings. HARDWARE: Loop recorder over left lung base. OTHER: No other significant finding. IMPRESSION: Borderline cardiomegaly. Persistent prominence of right hilum. Follow-up with standard PA and lateral view would be helpful. TECHNICAL DOCUMENTATION: JOB ID: [id number] 2010 [employer]- All Rights Reserved Reading location - IP/workstation name: [email or web address]
[2018-07-10] MEDS: APIXABAN 5 MG TABLET PO SCH (17:24)
[2018-07-10] MEDS: DIVALPROEX SODIUM 250 MG TABLET.DR PO SCH (17:24)
[2018-07-11] MEDS: IPRATROPIUM/ALBUTEROL 0.5-2.5 MG/3 ML AMPUL NEB SCH ×6 (00:15→20:09)
[2018-07-11] MEDS: GABAPENTIN 300 MG CAPSULE PO SCH ×4 (01:04→17:25)
[2018-07-11 04:28] LABS: HEMATOCRIT 27.7 % (37.9-51.0); MEAN CORPUSCULAR HEMOGLOBIN 29.6 pg (27.0-33.4); MEAN CORPUSCULAR HGB CONC 32.5 g/dL (32.0-36.0); MEAN CORPUSCULAR VOLUME 91 fl (80-97); PLATELET COUNT 160 10^3/uL (150-450); RED BLOOD COUNT 3.04 10^6/uL (4.35-5.55); RED CELL DISTRIBUTION WIDTH 15.9 % (11.5-14.0); WHITE BLOOD COUNT 6.5 10^3/uL (4.0-10.5)
[2018-07-11] MEDS: FUROSEMIDE INJ/PF 40 MG/4 ML SDV IV SCH ×3 (05:38→21:29)
[2018-07-11 06:21] LABS: ARTERIAL BLOOD BASE EXCESS 17.8 mmol/L; ARTERIAL BLOOD H2CO3 2.26 mmol/L (1.05-1.35); ARTERIAL BLOOD HCO3 45.4 mmol/L (20-24); ARTERIAL BLOOD O2 SATURATION 94.1 % (94-98); ARTERIAL BLOOD PO2 73.8 mmHg (80-100); ARTERIAL BLOOD TOTAL CO2 47.7 mmol/L (23-27)
[2018-07-11 06:40] LABS: ARTERIAL BLOOD FIO2 40%
[2018-07-11] MEDS: BUDESONIDE NEB 0.5 MG/2 ML AMPUL NEB SCH ×2 (09:08→20:09)
[2018-07-11] MEDS: INSULIN LISPRO 100 UNIT/ML 3 ML VIAL SUBCUT SCH ×4 (09:26→21:29)
[2018-07-11] MEDS: ASPIRIN 81 MG TABLET, ENT COATED PO SCH (09:27)
[2018-07-11] MEDS: APIXABAN 5 MG TABLET PO SCH ×2 (09:27→17:25)
[2018-07-11] MEDS: PANTOPRAZOLE SODIUM 40 MG TABLET.DR PO SCH (09:27)
[2018-07-11] MEDS: METOPROLOL TARTRATE 25 MG TABLET PO SCH ×2 (09:27→21:29)
[2018-07-11] MEDS: DIGOXIN 0.125 MG TABLET PO SCH (09:27)
[2018-07-11] MEDS: TIOTROPIUM BROMIDE DPI 5 CAP/KIT (18 MCG/CAP) IH SCH (09:28)
[2018-07-11] MEDS: DIVALPROEX SODIUM 125 MG CAP.SPRINK PO SCH (09:28)
[2018-07-11] MEDS: DOCUSATE SODIUM 100 MG/10 ML UDC PO SCH ×2 (09:28→17:26)
[2018-07-11] MEDS: MAGNESIUM OXIDE 400 MG TABLET PO SCH (09:28)
[2018-07-11] MEDS ORDERED: FUROSEMIDE 20 MG TABLET PO SCH (10:00)
--- NOTE | 2018-07-11 11:09 | PDOC PROGRESS REPORT ---
Subjective Progress Note for:: 07/11/18 Subjective:: Subjective: THEODORE SON is a 68 year old male patient with multiple comorbidities including congestive heart failure, hypertension, hyperlipidemia, type 2 diabetes mellitus, history of lymphoma, morbid obesity, COPD brought from [facility] for evaluation due to increased somnolence. When I see the patient, he is obtunded and when I called his name he wakes up and quickly fall asleep. Of note the patient was discharged 4 days ago from [facility] in [place] for ARDS and respiratory failure. He was intubated at that time. Patient discharged from [place] to [facility]. The last 4 days his mental status and symptoms have worsened. Family members are concerned by his situation. Brief history is obtained from the ER attending note, previous charts and medical record and from his who is in the room during my encounter. Of note patient has history of recurrent respiratory failure which requires intubation and mechanical ventilation. This year alone patient has been admitted 3 times to this hospital's ICU. There is no report of fever chills palpitation or diaphoresis. Further detailed history and review of systems unobtainable. I reviewed his labs and it shows BNP of 9160 and his ABG shows acidosis with pH of 7.25 PcO2 of 83.7 PO2 of 76. His chest x-ray shows cardiomegaly. 07/10/2018: Patient appears comfortable. He actually lost a lot of weight since I saw him last time in March. He is off BiPAP to take his medications and eat. is at bedside. He seems to be improving and responding to treatment. 07/11/2018: Patient stable on nasal cannula oxygen. ABG today shows persistent hyper apnea with PCO2 of 75. He has been on off BiPAP. X-ray shows persistent prominence of the right hilum. Physical Exam Patient is no acute distress She is awake, alert and oriented to person No anxiety or depression Head: atraumatic normocephalic Pupils: are equal reactive Neck: is supple and trachea is central no lymphadenopathy No pharyngeal erythema or exudates Heart: Regular rate and rhythm Lungs: Soft inspiratory stridor and faint bilateral wheezing Abdomen: nontender nondistended Neurological exam: unremarkable Musculoskeletal: No joint swelling or effusion chronic lower back pain and tenderness No suicidal or homicidal ideation Assessment and Plan (1) A/C hypoxemic and hypercarbic respirator Is this a current diagnosis for this admission?: Yes Plan: Patient has history of recurrent admission with the same diagnosis which re quires intubation. His ABG shows hypercarbia and respiratory acidosis with pH of 7.25 and hypoxia with PO2 of 76. Patient was put on BiPAP and will be admitted to ICU. 07/10/2018: Continue BiPAP. Repeat ABG in a.m. Oxygen as needed. 07/11/2018: Continue oxygen as needed. BiPAP PRN. Repeat ABG tomorrow. (2) Acute on chronic systolic congestive heart failure, NYHA class 3 Is this a current diagnosis for this admission?: Yes Plan: Patient has underlying congestive heart failure. He has bilateral +2 pitting edema. Patient has been started on IV Lasix and will continue for his cardioprotective medications. 07/10/2018: Continue IV Lasix. Monitor daily weight. Monitor input and output. 07/11/2018: Continue IV Lasix for now. (3) Acute encephalopathy Is this a current diagnosis for this admission?: Yes Plan: The cause for his acute encephalopathy is multifactorial which includes metabolic and also drug-induced like Neurontin and Keppra. I will hold his Keppra and other sedatives. 07/10/2018: Seems to be improving. Continue to monitor. (4) Type 2 diabetes mellitus Is this a current diagnosis for this admission?: Yes Plan: I will continue his home medication and put him on sliding scale. In the meantime will evaluate the status of his hemoglobin A1c. 07/10/2018: Continue insulin sliding scale. (5) Hypertension Qualifiers: Hypertension type: essential hypertension Qualified Code(s): I10 - Essential (primary) hypertension Is this a current diagnosis for this admission?: Yes Plan: I will revise his medication and adjust accordingly. 07/10/18: Continue current meds. Monitor blood pressure. (6) Hyperlipidemia Qualifiers: Hyperlipidemia type: unspecified Qualified Code(s): E78.5 - Hyperlipidemia, unspecified Is this a current diagnosis for this admission?: Yes Plan: Continue his statin (7) Morbid obesity with BMI of 45.0-49.9, adult Is this a current diagnosis for this admission?: Yes Plan: Patient will be encouraged to do lifestyle modification when he wakes up. 07/10/2018: Recommend lifestyle modifications (8) COPD (chronic obstructive pulmonary disease) exacerbation Qualifiers: Emphysema type: unspecified Is this a current diagnosis for this admission?: Yes Plan: Continue BiPAP, bronchodilators and steroids. 07/10/2018: Continue bronchodilators. The patient is not on steroids. Patient is no wheezing. 07/11/2018: Patient has faint wheezing today. Persistent hypercapnia. Start IV Solu-Medrol. (9) History of lymphoma Is this a current diagnosis for this admission?: Yes Plan: In remission. Reason For Visit: ACUTE ON CHRONIC HYPOXEMIC RESPIRATORY FAILURE Physical Exam Vital Signs: Temp Pulse Resp BP Pulse Ox 98.0 F 63 18 140/50 H 97 07/11/18 07:36 07/11/18 09:08 07/11/18 09:08 07/11/18 07:36 07/11/18 09:08 Intake & Output 07/10/18 07/11/18 07/12/18 06:59 06:59 06:59 Intake Total 0 676 Output Total 1600 Balance 0 -924 Weight 256 lb 6.362 oz 252 lb 6.868 oz Results Laboratory Results: 07/11/18 04:01 07/10/18 11:24 07/10/18 07/11/18 07/11/18 11:24 04:01 06:00 WBC 6.5 RBC 3.04 L Hgb 9.0 L Hct 27.7 L MCV 91 MCH 29.6 MCHC 32.5 RDW 15.9 H Plt Count 160 Carbonic Acid 2.26 H HCO3/H2CO3 Ratio 20:1 ABG pH 7.40 ABG pCO2 75.0 H* ABG pO2 73.8 L ABG HCO3 45.4 H ABG O2 Saturation 94.1 ABG Base Excess 17.8 FiO2 40% Sodium 141.8 Potassium 4.3 Chloride 98 Carbon Dioxide 39 H Anion Gap 5 BUN 23 H Creatinine 0.60 Est GFR ( Amer) > 60 Est GFR (Non-Af Amer) > 60 Glucose 180 H Calcium 8.4 07/09/18 15:28 Troponin I 0.019 NT-Pro-B Natriuret Pep 9160 H Impressions: Chest X-Ray 07/10/18 10:45 IMPRESSION: Borderline cardiomegaly. Persistent prominence of right hilum. Fo llow-up with standard PA and lateral view would be helpful.
--- NOTE | 2018-07-11 12:40 | RADIOLOGY REPORT (SQ) ---
EXAM DESCRIPTION: CT CHEST WITHOUT COMPLETED DATE/TIME: 07/11/2018 9:54 am REASON FOR STUDY: abnormal cxr COMPARISON: 06/21/2018 TECHNIQUE: CT scan performed of the chest without intravenous contrast. Images reviewed with lung, soft tissue and bone windows. Reconstructed coronal and sagittal MPR images reviewed. All images st ored on PACS. All CT scanners at this facility use dose modulation, iterative reconstruction, and/or weight based d osing when appropriate to reduce radiation dose to as low as reasonably achievable (ALARA). [facility]: Dose Right [facility]: CareDose [facility]: Dose Right [facility]: Teradose 4D [facility]: [employer] RADIATION DOSE: CT Rad equipment meets quality standard of care and radiation dose reduction techniq ues were employed. CTDIvol: 21.0 mGy. DLP: 693 mGy-cm. mGy. LIMITATIONS: Motion. FINDINGS: LUNGS AND PLEURA: Improved aeration in the right lung status postextubation. Residual sub segmental airspace disease in the right lower lobe and to lesser degree left lower lobe. No effusion s. HILAR AND MEDIASTINAL STRUCTURES: No identified masses or abnormal nodes. No obvious aneurysm. HEART AND VASCULAR STRUCTURES: No aneurysm. No pericardial effusion. UPPER ABDOMEN: No significant findings. Limited exam. THYROID AND OTHER SOFT TISSUES: No masses. No adenopathy. BONES: No significant finding. HARDWARE: None in the chest. OTHER: No other significant findings. IMPRESSION: Markedly improved pneumonia. No evidence of hilar mass. TECHNICAL DOCUMENTATION: JOB ID: [id number] Quality ID # [id number]: Final reports with documentation of one or more dose reduction techniques (e.g., Au tomated exposure control, adjustment of the mA and/or kV according to patient size, use of iterative reconstruction technique) 2010 [employer]- All Rights Reserved Reading location - IP/workstation name: [email or web address]
[2018-07-11] MEDS: METHYLPREDNISOLONE INJ 40 MG/1 ML SDV IV SCH ×2 (13:41→21:30)
[2018-07-11] MEDS: DIVALPROEX SODIUM 250 MG TABLET.DR PO SCH (17:26)
[2018-07-12] MEDS: IPRATROPIUM/ALBUTEROL 0.5-2.5 MG/3 ML AMPUL NEB SCH ×6 (00:11→20:02)
[2018-07-12] MEDS: GABAPENTIN 300 MG CAPSULE PO SCH ×2 (00:43→05:32)
[2018-07-12] MEDS: FUROSEMIDE INJ/PF 40 MG/4 ML SDV IV SCH ×2 (05:32→22:16)
[2018-07-12] MEDS: METHYLPREDNISOLONE INJ 40 MG/1 ML SDV IV SCH ×2 (05:32→17:31)
[2018-07-12 06:18] LABS: ARTERIAL BLOOD BASE EXCESS 20.3 mmol/L; ARTERIAL BLOOD FIO2 40%; ARTERIAL BLOOD H2CO3 1.74 mmol/L (1.05-1.35); ARTERIAL BLOOD HCO3 45.7 mmol/L (20-24); ARTERIAL BLOOD O2 SATURATION 95.3 % (94-98); ARTERIAL BLOOD PCO2 57.8 mmHg (35-45); ARTERIAL BLOOD PH 7.52 (7.35-7.45); ARTERIAL BLOOD PO2 71.3 mmHg (80-100); ARTERIAL BLOOD TOTAL CO2 47.5 mmol/L (23-27)
[2018-07-12] MEDS: DIVALPROEX SODIUM 125 MG CAP.SPRINK PO SCH (08:02)
[2018-07-12] MEDS: INSULIN LISPRO 100 UNIT/ML 3 ML VIAL SUBCUT SCH ×4 (08:03→22:27)
[2018-07-12] MEDS: BUDESONIDE NEB 0.5 MG/2 ML AMPUL NEB SCH ×2 (08:05→19:57)
[2018-07-12] MEDS: APIXABAN 5 MG TABLET PO SCH ×2 (09:34→17:31)
[2018-07-12] MEDS: TIOTROPIUM BROMIDE DPI 5 CAP/KIT (18 MCG/CAP) IH SCH (09:34)
[2018-07-12] MEDS: DIGOXIN 0.125 MG TABLET PO SCH (09:34)
[2018-07-12] MEDS: METOPROLOL TARTRATE 25 MG TABLET PO SCH ×2 (09:34→22:16)
[2018-07-12] MEDS: ASPIRIN 81 MG TABLET, ENT COATED PO SCH (09:34)
[2018-07-12] MEDS: PANTOPRAZOLE SODIUM 40 MG TABLET.DR PO SCH (09:34)
[2018-07-12] MEDS: DOCUSATE SODIUM 100 MG/10 ML UDC PO SCH ×2 (09:34→17:31)
[2018-07-12] MEDS: MAGNESIUM OXIDE 400 MG TABLET PO SCH (09:34)
--- NOTE | 2018-07-12 10:05 | PDOC PROGRESS REPORT ---
Subjective Progress Note for:: 07/12/18 Subjective:: 68 year old male patient with multiple comorbidities including congestive heart failure, hypertension, hyperlipidemia, type 2 diabetes mellitus, history of lymphoma, morbid obesity, COPD brought from [facility] for evaluation due to increased somnolence. When I see the patient, he is obtunded and when I called his name he wakes up and quickly fall asleep. Of note the patient was discharged 4 days ago from [facility] in [place] for ARDS and respiratory failure. He was intubated at that time. Patient discharged [facility] to [facility]. The last 4 days his mental status and symptoms have worsened. Family members are concerned by his situation. Brief history is obtained from the ER attending note, previous charts and medical record and from his who is in the room during my encounter. Of note patient has history of recurrent respiratory failure which requires intubation and mechanical ventilation. This year alone patient has been admitted 3 times to this hospital's ICU. There is no report of fever chills palpitation or diaphoresis. Further detailed history and review of systems unobtainable. I reviewed his labs and it shows BNP of 9160 and his ABG shows acidosis with pH of 7.25 PcO2 of 83.7 PO2 of 76. His chest x-ray shows cardiomegaly. 07/10/2018: Patient appears comfortable. He actually lost a lot of weight since I saw him last time in March. He is off BiPAP to take his medications and eat. is at bedside. He seems to be improving and responding to treatment. 07/11/2018: Patient stable on nasal cannula oxygen. ABG today shows persistent hyper apnea with PCO2 of 75. He has been on off BiPAP. X-ray shows persistent prominence of the right hilum. 07/12/[id number]-kfoi-old male with history of congestive heart failure, hypertension, hyperlipidemia, COPD morbid obesity admitted for increased somnolence and altered mental status. No acute events in the last 24 hours. Afebrile. Comfortably in the bed communicating well. On 5 L oxygen at the time of my examination. Pulse ox on 40% oxygen on BiPAP this morning is 95%. Comfortable in the bed communicating well. Reason For Visit: ACUTE ON CHRONIC HYPOXEMIC RESPIRATORY FAILURE Physical Exam Vital Signs: Temp Pulse Resp BP Pulse Ox 97.5 F 88 20 148/47 H 94 07/12/18 07:17 07/12/18 08:05 07/12/18 08:05 07/12/18 07:17 07/12/18 08:05 Intake & Output 07/11/18 07/12/18 07/13/18 06:59 06:59 06:59 Intake Total 676 472 Output Total 1600 2700 Balance -924 -1768 Weight 114.5 kg 112.1 kg General appearance: PRESENT: no acute distress, obese Head exam: PRESENT: atraumatic Eye exam: PRESENT: PERRLA Mouth exam: PRESENT: moist, tongue midline Teeth exam: PRESENT: poor dentation Neck exam: ABSENT: carotid bruit, JVD, lymphadenopathy, thyromegaly Respiratory exam: PRESENT: decreased breath sounds Cardiovascular exam: PRESENT: RRR. ABSENT: diastolic murmur, rubs, systolic murmur GI/Abdominal exam: PRESENT: normal bowel sounds, soft. ABSENT: distended, guarding, mass, organolmegaly, rebound, tenderness Rectal exam: PRESENT: deferred Gentrourinary exam: PRESENT: indwelling catheter Neurological exam: PRESENT: alert, awake, oriented to person, oriented to place, oriented to time, oriented to situation, CN II-XII grossly intact. ABSENT: motor sensory deficit Results Laboratory Results: 07/11/18 04:01 07/10/18 11:24 07/12/18 06:00 Carbonic Acid 1.74 H HCO3/H2CO3 Ratio 26:1 ABG pH 7.52 H ABG pCO2 57.8 H ABG pO2 71.3 L ABG HCO3 45.7 H ABG O2 Saturation 95.3 ABG Base Excess 20.3 FiO2 40% 07/09/18 15:28 Troponin I 0.019 NT-Pro-B Natriuret Pep 9160 H Impressions: Chest X-Ray 07/10/18 10:45 IMPRESSION: Borderline cardiomegaly. Persistent prominence of right hilum. Follow-up with standard PA and lateral view would be helpful. Chest CT 07/11/18 00:00 IMPRESSION: Markedly improved pneumonia. No evidence of hilar mass. Assessment and Plan - Diagnosis (1) A/C hypoxemic and hypercarbic respirator Is this a current diagnosis for this admission?: Yes Plan: Patient has history of recurrent admission with the same diagnosis which requires intubation. His ABG shows hypercarbia and respiratory acidosis with pH of 7.25 and hypoxia with PO2 of 76. Patient was put on BiPAP and will be admitted to ICU. 07/12/2018-patient is presently on 4 L oxygen comfortably in the bed communicati ng well. Pulse ox recorded this morning on 40% oxygen on BiPAP shows 95% reading. ABG this shows pH of 7.52/PCO2 57.8/PO2 71.3. Bicarb is around 45. Hypercapnia is resolving. Plan is to continue the present management. (2) Acute encephalopathy Is this a current diagnosis for this admission?: Yes Plan: The cause for his acute encephalopathy is multifactorial which includes metabolic and also drug-induced like Neurontin and Keppra. I will hold his Keppra and other sedatives. 07/12/2018-acute encoagulopathy/altered mental status most likely secondary to COPD with hypercapnia and drug-induced altered mental status may be secondary to Neurontin and Keppra. Presently Keppra and other sedatives are on hold.'s morning patient alert oriented for me he is at his baseline. (3) Acute on chronic systolic congestive heart failure, NYHA class 3 Is this a current diagnosis for this admission?: Yes Plan: Patient has underlying congestive heart failure. He has bilateral +2 pitting edema. Patient has been started on IV Lasix and will continue for his cardioprotective medications. 07/12/2018-patient has history of chronic systolic congestive heart failure. Using Lasix 40 mg IV every 8 hours at this point. plan is to decrease the Lasix to 40 mg twice a day. (4) COPD (chronic obstructive pulmonary disease) Qualifiers: Emphysema type: unspecified Is this a current diagnosis for this admission?: Yes Plan: Continue BiPAP, bronchodilators and steroids. 07/12/2018-patient has history of COPD plan is to continue BiPAP on as-needed basis. And also plan is to continue scheduled and as needed bronchodilators and to tap her off steroids and gradually. (5) Hypertension Qualifiers: Hypertension type: essential hypertension Qualified Code(s): I10 - Essential (primary) hypertension Is this a current diagnosis for this admission?: Yes Plan: I will revise his medication and adjust accordingly. 07/12/2018-patient blood pressure today is 146/70. Stable. Presently on IV Lasix 40 mg every 8 hours and to plan to decrease Lasix to every 12 hours. (6) Type 2 diabetes mellitus Is this a current diagnosis for this admission?: Yes Plan: I will continue his home medication and put him on sliding scale. In the meantime will evaluate the status of his hemoglobin A1c. 07/12/2018-patient has history of type 2 diabetes mellitus. Latest blood sugar is 326 may be secondary to IV steroids. Plan is to taper off the IV steroids from today. (7) Morbid obesity with BMI of 45.0-49.9, adult Is this a current diagnosis for this admission?: Yes Plan: Patient will be encouraged to do lifestyle modification when he wakes up. 07/12/2018-patient BMI is more than 35. Diet exercise weight loss lifestyle modifications are discussed with the patient. (8) Atrial fibrillation Qualifiers: Atrial fibrillation type: chronic Qualified Code(s): I48.2 - Chronic atrial fibrillation Is this a current diagnosis for this admission?: No Plan: 07/14/2018-patient has history of chronic atrial fibrillation and plan is to continue the medication during the hospital stay. - Time Time Spent with patient: 25-34 minutes Medications reviewed and adjusted accordingly: Yes Anticipated discharge: SNF
[2018-07-12] MEDS: DIVALPROEX SODIUM 250 MG TABLET.DR PO SCH (17:31)
[2018-07-12] MEDS ORDERED: INSULIN REG, HUMAN 100 UNIT/ML 3 ML VIAL (PYX) IV ONE (22:00)
[2018-07-13] MEDS: IPRATROPIUM/ALBUTEROL 0.5-2.5 MG/3 ML AMPUL NEB SCH ×6 (00:25→20:24)
[2018-07-13] MEDS: METHYLPREDNISOLONE INJ 40 MG/1 ML SDV IV SCH ×2 (05:37→17:13)
[2018-07-13 06:27] LABS: ARTERIAL BLOOD BASE EXCESS 23.2 mmol/L; ARTERIAL BLOOD H2CO3 2.46 mmol/L (1.05-1.35); ARTERIAL BLOOD HCO3 51.3 mmol/L (20-24); ARTERIAL BLOOD PH 7.42 (7.35-7.45); ARTERIAL BLOOD TOTAL CO2 53.8 mmol/L (23-27)
[2018-07-13 06:28] LABS: ARTERIAL BLOOD FIO2 40%
[2018-07-13 06:29] LABS: ARTERIAL BLOOD PCO2 81.6 mmHg (35-45)
[2018-07-13] MEDS: BUDESONIDE NEB 0.5 MG/2 ML AMPUL NEB SCH (07:34)
[2018-07-13] MEDS: INSULIN LISPRO 100 UNIT/ML 3 ML VIAL SUBCUT SCH ×4 (08:21→21:42)
[2018-07-13] MEDS: DIVALPROEX SODIUM 125 MG CAP.SPRINK PO SCH (08:23)
[2018-07-13 08:41] LABS: BLOOD UREA NITROGEN 24 mg/dL (7-20); CALCIUM 8.6 mg/dL (8.4-10.2); CHLORIDE 82 mmol/L (98-107); GLUCOSE 260 mg/dL (75-110); POTASSIUM 4.6 mmol/L (3.6-5.0); SODIUM 138.1 mmol/L (137-145)
[2018-07-13 08:50] LABS: ANION GAP 8 (5-19)
[2018-07-13 08:51] LABS: CARBON DIOXIDE 48 mmol/L (22-30)
[2018-07-13] MEDS ORDERED: HUM INSULIN NPH/REG INSULIN HM 100 UNIT/1 ML 3 ML SUBCUT SCH (10:00)
[2018-07-13] MEDS: METOPROLOL TARTRATE 25 MG TABLET PO SCH ×2 (10:21→21:41)
[2018-07-13] MEDS: PANTOPRAZOLE SODIUM 40 MG TABLET.DR PO SCH (10:28)
[2018-07-13] MEDS: APIXABAN 5 MG TABLET PO SCH ×2 (10:28→17:14)
[2018-07-13] MEDS: ASPIRIN 81 MG TABLET, ENT COATED PO SCH (10:29)
[2018-07-13] MEDS: DIGOXIN 0.125 MG TABLET PO SCH (10:29)
[2018-07-13] MEDS: FUROSEMIDE INJ/PF 40 MG/4 ML SDV IV SCH ×2 (10:29→21:42)
[2018-07-13] MEDS: DOCUSATE SODIUM 100 MG/10 ML UDC PO SCH (10:30)
[2018-07-13] MEDS: MAGNESIUM OXIDE 400 MG TABLET PO SCH (10:30)
[2018-07-13] MEDS: TIOTROPIUM BROMIDE DPI 5 CAP/KIT (18 MCG/CAP) IH SCH (10:37)
[2018-07-13] MEDS ORDERED: GLUCAGON,HUMAN RECOMB 1 MG INJ IM PRN (15:19)
[2018-07-13] MEDS ORDERED: DEXTROSE 50%-WATER 25 GM/50 ML DISP.SYRIN IV PRN ×2 (15:19)
[2018-07-13] MEDS ORDERED: DEXTROSE 40% GEL 15 GM TUBE PO PRN ×2 (15:19)
--- NOTE | 2018-07-13 15:39 | PDOC PROGRESS REPORT ---
Subjective Progress Note for:: 07/13/18 Subjective:: 68 y.o. M with a PMH of CHF, HTN, HLD, diabetes type 2, history of lymphoma, morbid obesity, COPD. He came to [facility] from [facility] for increased somnolence. Of note, the patient was recently discharged from [facility] for ARDS and respiratory failure. This year, the patient has had multiple recurrences of respiratory failure requiring intubation and mechanical ventilation. He has been admitted to [facility] ICU 3 times in 2019. The patient was seen this morning on rounds, at the bedside. He is resting comfortably in bed on nasal cannula. The reports that the patient is noncompliant with his home BiPAP. Additionally, he stopped seeing his baker pastry because he thought they were too hard on him. I explained to the patient and that in his current state of health if he continues to remain noncompliant, he will likely pass away in the next 5 years (more likely within 2 years). Patient and state understanding. Upon evaluation, lungs are clear to auscultation. There is no evidence of peripheral or central cyanosis. He coughs frequently, but it is nonproductive. Confirmed with patient and that the patient's CODE STATUS remains to be a full code. Plan to send patient back to [facility] to resume inpatient rehab. Reason For Visit: ACUTE ON CHRONIC HYPOXEMIC RESPIRATORY FAILURE Physical Exam Vital Signs: Temp Pulse Resp BP Pulse Ox 98.5 F 72 20 123/46 L 96 07/13/18 11:52 07/13/18 12:56 07/13/18 12:56 07/13/18 11:52 07/13/18 12:56 Intake & Output 07/12/18 07/13/18 07/14/18 06:59 06:59 06:59 Intake Total 472 1220 600 Output Total 2700 400 Balance -2228 820 600 Weight 112.1 kg 106 kg General appearance: PRESENT: morbidly obese Eye exam: PRESENT: conjunctiva pink, PERRLA Mouth exam: PRESENT: tongue midline Teeth exam: PRESENT: poor dentation Neck exam: PRESENT: full ROM Respiratory exam: PRESENT: clear to auscultation ernesto, symmetrical, unlabored, other - requiring nasal cannula. BIPAP QHS. Cardiovascular exam: PRESENT: RRR Pulses: PRESENT: normal radial pulses, normal dorsalis pedis pul Vascular exam: PRESENT: pallor GI/Abdominal exam: PRESENT: soft. ABSENT: distended, tenderness Rectal exam: PRESENT: deferred Extremities exam: PRESENT: pedal edema - trace Musculoskeletal exam: ABSENT: ambulatory - Requires a great deal of assistance, full ROM Neurological exam: PRESENT: alert, awake, oriented to person, oriented to place, oriented to time, oriented to situation, other - Able to answer orientation questions correctly. When probed further about his daily healthcare regimen, the patient is unable to provide accurate information (according to the ) Psychiatric exam: PRESENT: appropriate affect Skin exam: PRESENT: dry, intact, normal color Results Laboratory Results: 07/11/18 04:01 07/13/18 07:47 07/13/18 07/13/18 06:08 07:47 Carbonic Acid 2.46 H HCO3/H2CO3 Ratio 20:1 ABG pH 7.42 ABG pCO2 81.6 H* ABG pO2 96.0 ABG HCO3 51.3 H ABG O2 Saturation 97.0 ABG Base Excess 23.2 FiO2 40% Sodium 138.1 Potassium 4.6 Chloride 82 L Carbon Dioxide 48 H* Anion Gap 8 BUN 24 H Creatinine 0.55 Est GFR ( Amer) > 60 Est GFR (Non-Af Amer) > 60 Glucose 260 H Calcium 8.6 07/09/18 15:28 Troponin I 0.019 NT-Pro-B Natriuret Pep 9160 H Impressions: Chest X-Ray 07/10/18 10:45 IMPRESSION: Borderline cardiomegaly. Persistent prominence of right hilum. Follow-up with standard PA and lateral view would be helpful. Chest CT 07/11/18 00:00 IMPRESSION: Markedly improved pneumonia. No evidence of hilar mass. Status: Imported from PACS Assessment and Plan - Diagnosis (1) Acute and chronic respiratory failure Qualifiers: Respiratory failure complication: hypoxia and hypercapnia Qualified Code(s): J96.21 - Acute and chronic respiratory failure with hypoxia; J96.22 - Acute and chronic respiratory failure with hypercapnia Is this a current diagnosis for this admission?: Yes Plan: Recurrent admissions for the same diagnosis, oftentimes requiring intubation Initial ABG shows hypercarbic and hypoxic respiratory acidosis Initially on BiPAP admitted to the ICU, weaned to nasal cannula now in IMCU Scheduled and PRN nebulizer treatments Scheduled Spiriva and Breo Scheduled IV Solu-Medrol BiPAP nightly Patient will require pulmonary referral upon discharge (2) Acute on chronic systolic congestive heart failure, NYHA class 3 Is this a current diagnosis for this admission?: Yes Plan: PMH congestive heart failure Bilateral +2 pitting edema Continue BID IV Lasix, will transition to p.o. tomorrow (3) Acute encephalopathy Is this a current diagnosis for this admission?: Yes Plan: Multifactorial which includes metabolic and also drug-induced like Neurontin and Keppra. Continue to hold Keppra and other sedatives. Patient is alert and oriented today during interview but has periods of confus ion, unable to provide detailed medical history (4) Hypertension Qualifiers: Hypertension type: essential hypertension Qualified Code(s): I10 - Essential (primary) hypertension Is this a current diagnosis for this admission?: Yes Plan: PMH HTN Well-controlled Continue IV Lasix twice daily (5) Morbid obesity with BMI of 45.0-49.9, adult Is this a current diagnosis for this admission?: Yes Plan: Today, BMI is 33 Weight control with diet management at this time (6) Type 2 diabetes mellitus Is this a current diagnosis for this admission?: Yes Plan: PMH diabetes type 2 Humalog sliding scale insulin Accu-Cheks AC at bedtime Difficulty managing with 70/30, discontinued and initiated Lantus nightly Blood glucose is elevated above baseline due to IV steroids Patient is no longer wheezing, plan to wean from IV steroids and transition to oral steroids (7) Atrial fibrillation Qualifiers: Atrial fibrillation type: chronic Qualified Code(s): I48.2 - Chronic atrial fibrillation Is this a current diagnosis for this admission?: No Plan: PMH atrial fibrillation Rate controlled Continue home dose digoxin and metoprolol - Time Time Spent with patient: 15-24 minutes Medications reviewed and adjusted accordingly: Yes Anticipated discharge: SNF Within: within 48 hours - Inpatient Certification Based on my medical assessment, after consideration of the patient's com orbidities, presenting symptoms, or acuity I expect that the services needed warrant INPATIENT care.: Yes I certify that my determination is in accordance with my understanding of Medicare's requirements for reasonable and necessary INPATIENT services [42 CFR 412.3e].: Yes Medical Necessity: Need For Continuous Telemetry Monitoring, Risk of Complication if Not Cared For in Hospital
[2018-07-13] MEDS: DOCUSATE SODIUM 100 MG CAPSULE PO SCH (17:07)
[2018-07-13] MEDS: DIVALPROEX SODIUM 250 MG TABLET.DR PO SCH (17:14)
[2018-07-13] MEDS: INSULIN GLARGINE,HUM.REC.ANLOG 1,000 UNIT/10 ML VIAL SUBCUT SCH (21:43)
[2018-07-13] MEDS ORDERED: OLANZAPINE 5 MG TABLET PO SCH (22:00)
[2018-07-14] MEDS: IPRATROPIUM/ALBUTEROL 0.5-2.5 MG/3 ML AMPUL NEB SCH ×6 (00:44→20:29)
[2018-07-14] MEDS: METHYLPREDNISOLONE INJ 40 MG/1 ML SDV IV SCH (06:38)
[2018-07-14] MEDS: DIVALPROEX SODIUM 125 MG CAP.SPRINK PO SCH (08:26)
[2018-07-14] MEDS: INSULIN LISPRO 100 UNIT/ML 3 ML VIAL SUBCUT SCH ×4 (08:27→22:10)
[2018-07-14] MEDS: DOCUSATE SODIUM 100 MG CAPSULE PO SCH ×2 (09:48→17:08)
[2018-07-14] MEDS: DIGOXIN 0.125 MG TABLET PO SCH (10:02)
[2018-07-14] MEDS: TIOTROPIUM BROMIDE DPI 5 CAP/KIT (18 MCG/CAP) IH SCH (10:02)
[2018-07-14] MEDS: PANTOPRAZOLE SODIUM 40 MG TABLET.DR PO SCH (10:02)
[2018-07-14] MEDS: FUROSEMIDE INJ/PF 40 MG/4 ML SDV IV SCH ×2 (10:03→21:24)
[2018-07-14] MEDS: METOPROLOL TARTRATE 25 MG TABLET PO SCH ×2 (10:03→21:20)
[2018-07-14] MEDS: APIXABAN 5 MG TABLET PO SCH ×2 (10:03→17:07)
[2018-07-14] MEDS: ASPIRIN 81 MG TABLET, ENT COATED PO SCH (10:03)
[2018-07-14] MEDS: FLUTICASONE/VILANTEROL 200-25 MCG/DOSE IH SCH (10:03)
[2018-07-14] MEDS: MAGNESIUM OXIDE 400 MG TABLET PO SCH (10:04)
[2018-07-14 12:31] LABS: ARTERIAL BLOOD BASE EXCESS 21.9 mmol/L; ARTERIAL BLOOD FIO2 40%; ARTERIAL BLOOD H2CO3 2.04 mmol/L (1.05-1.35); ARTERIAL BLOOD O2 SATURATION 94.7 % (94-98); ARTERIAL BLOOD PCO2 67.8 mmHg (35-45); ARTERIAL BLOOD PH 7.48 (7.35-7.45); ARTERIAL BLOOD PO2 71.4 mmHg (80-100); ARTERIAL BLOOD TOTAL CO2 51.1 mmol/L (23-27)
[2018-07-14] MEDS: PREDNISONE 20 MG TABLET PO SCH ×2 (14:55→17:08)
[2018-07-14] MEDS: DIVALPROEX SODIUM 250 MG TABLET.DR PO SCH (17:08)
[2018-07-14] MEDS: OLANZAPINE 5 MG TABLET PO SCH (18:04)
[2018-07-14] MEDS ORDERED: OLANZAPINE 5 MG TABLET PO SCH (22:00)
--- NOTE | 2018-07-14 22:03 | PDOC PROGRESS REPORT ---
Subjective Progress Note for:: 07/14/18 Subjective:: 68 y.o. M with a PMH of CHF, HTN, HLD, diabetes type 2, history of lymphoma, morbid obesity, COPD. He came to [facility] from [facility] for increased somnolence. Of note, the patient was recently discharged from [facility] for ARDS and respiratory failure. This year, the patient has had multiple recurrences of respiratory failure requiring intubation and mechanical ventilation. He has been admitted to [facility] ICU 3 times in 2019. The patient was seen this morning on rounds, at the bedside. He is resting comfortably in bed on nasal cannula. Nursing staff reports that the patient ripped off his BIPAP mask overnight and threw it at his . Was telling his he could not remember the number of children he had or their names. Upon evaluation, lungs are clear to auscultation. There is no evidence of peripheral or central cyanosis. He coughs frequently, but it is nonproductive. Confirmed with patient and that the patient's CODE STATUS remains to be a full code. Requesting PSYCH evaluation for patient to get medication recommendations, specifically to treat Reason For Visit: ACUTE ON CHRONIC HYPOXEMIC RESPIRATORY FAILURE Physical Exam Vital Signs: Temp Pulse Resp BP Pulse Ox 98.0 F 46 L 23 H 148/37 H 100 07/14/18 20:54 07/14/18 20:54 07/14/18 20:54 07/14/18 20:54 07/14/18 20:54 Intake & Output 07/13/18 07/14/18 07/15/18 06:59 06:59 06:59 Intake Total 4401 354 3348 Output Total 400 Balance 453 019 1115 Weight 106 kg 106.4 kg General appearance: PRESENT: no acute distress, morbidly obese Head exam: PRESENT: atraumatic, normocephalic Eye exam: PRESENT: conjunctiva pink, EOMI, PERRLA. ABSENT: scleral icterus Ear exam: PRESENT: normal external ear exam Mouth exam: PRESENT: moist, tongue midline Teeth exam: PRESENT: poor dentation Neck exam: ABSENT: carotid bruit, JVD, lymphadenopathy, thyromegaly Respiratory exam: PRESENT: clear to auscultation ernesto, symmetrical, unlabored. ABSENT: rales, rhonchi, wheezes Cardiovascular exam: PRESENT: RRR. ABSENT: diastolic murmur, rubs, systolic murmur Pulses: PRESENT: normal radial pulses, normal dorsalis pedis pul Vascular exam: PRESENT: normal capillary refill GI/Abdominal exam: PRESENT: normal bowel sounds, soft. ABSENT: distended, guarding, mass, organolmegaly, rebound, tenderness Rectal exam: PRESENT: deferred Extremities exam: PRESENT: full ROM. ABSENT: calf tenderness, clubbing, pedal edema Neurological exam: PRESENT: alert, awake, oriented to person, oriented to place, oriented to time, oriented to situation, other - intermittently confused. Does not remember how many kids he has. Cannot name all of his children. Psychiatric exam: PRESENT: appropriate affect, normal mood Skin exam: PRESENT: dry, intact, warm. ABSENT: cyanosis, rash Results Laboratory Results: 07/11/18 04:01 07/13/18 07:47 07/14/18 12:07 Carbonic Acid 2.04 H HCO3/H2CO3 Ratio 24:1 ABG pH 7.48 H ABG pCO2 67.8 H ABG pO2 71.4 L ABG HCO3 49.0 H ABG O2 Saturation 94.7 ABG Base Excess 21.9 FiO2 40% 07/09/18 15:28 Troponin I 0.019 NT-Pro-B Natriuret Pep 9160 H Impressions: Chest X-Ray 07/10/18 10:45 IMPRESSION: Borderline cardiomegaly. Persistent prominence of right hilum. Follow-up with standard PA and lateral view would be helpful. Chest CT 07/11/18 00:00 IMPRESSION: Markedly improved pneumonia. No evidence of hilar mass. Status: Imported from PACS Assessment and Plan - Diagnosis (1) Acute and chronic respiratory failure Qualifiers: Respiratory failure complication: hypoxia and hypercapnia Qualified Code(s): J96.21 - Acute and chronic respiratory failure with hypoxia; J96.22 - Acute and chronic respiratory failure with hypercapnia Is this a current diagnosis for this admission?: Yes Plan: Recurrent admissions for the same diagnosis, oftentimes requiring intubation Initial ABG shows hypercarbic and hypoxic respiratory acidosis Initially on BiPAP admitted to the ICU, weaned to nasal cannula now in IMCU Scheduled and PRN nebulizer treatments Scheduled Spiriva and Breo Scheduled IV Solu-Medrol BiPAP nightly Patient will require pulmonary referral upon discharge (2) Acute on chronic systolic congestive heart failure, NYHA class 3 Is this a current diagnosis for this admission?: Yes Plan: PMH congestive heart failure Bilateral +2 pitting edema Continue BID IV Lasix, will transition to p.o. tomorrow (3) Acute encephalopathy Is this a current diagnosis for this admission?: Yes Plan: Multifactorial which includes metabolic and also drug-induced like Neurontin and Keppra. Continue to hold Keppra and other sedatives. Patient is alert and oriented today during interview but has periods of confusion, unable to provide detailed medical history, does not remember how many children he has or their names requesting PSYCH evaluation for capacity as well as medication recommendations for . attempted olanzapine, but did not help. (4) Hypertension Qualifiers: Hypertension type: essential hypertension Qualified Code(s): I10 - Essential (primary) hypertension Is this a current diagnosis for this admission?: Yes Plan: PMH HTN Well-controlled Continue IV Lasix twice daily (5) Morbid obesity with BMI of 45.0-49.9, adult Is this a current diagnosis for this admission?: Yes Plan: Today, BMI is 33 Weight control with diet management at this time (6) Type 2 diabetes mellitus Is this a current diagnosis for this admission?: Yes Plan: PMH diabetes type 2 Humalog sliding scale insulin Accu-Cheks AC at bedtime Difficulty managing with 70/30, discontinued and initiated Lantus nightly Blood glucose is elevated above baseline due to IV steroids Patient is no longer wheezing, plan to wean from IV steroids and transition to oral steroids (7) Atrial fibrillation Qualifiers: Atrial fibrillation type: chronic Qualified Code(s): I48.2 - Chronic atrial fibrillation Is this a current diagnosis for this admission?: No Plan: PMH atrial fibrillation Rate controlled Continue home dose digoxin and metoprolol
[2018-07-14] MEDS: INSULIN GLARGINE,HUM.REC.ANLOG 1,000 UNIT/10 ML VIAL SUBCUT SCH (22:11)
[2018-07-15] MEDS: IPRATROPIUM/ALBUTEROL 0.5-2.5 MG/3 ML AMPUL NEB SCH ×6 (00:49→19:04)
[2018-07-15] MEDS: INSULIN LISPRO 100 UNIT/ML 3 ML VIAL SUBCUT SCH ×4 (07:58→21:25)
[2018-07-15] MEDS: DIVALPROEX SODIUM 125 MG CAP.SPRINK PO SCH (07:59)
[2018-07-15] MEDS: PANTOPRAZOLE SODIUM 40 MG TABLET.DR PO SCH (09:35)
[2018-07-15] MEDS: PREDNISONE 20 MG TABLET PO SCH ×3 (09:35→17:26)
[2018-07-15] MEDS: ASPIRIN 81 MG TABLET, ENT COATED PO SCH (09:35)
[2018-07-15] MEDS: DOCUSATE SODIUM 100 MG CAPSULE PO SCH ×2 (09:35→17:26)
[2018-07-15] MEDS: DIGOXIN 0.125 MG TABLET PO SCH (09:35)
[2018-07-15] MEDS: MAGNESIUM OXIDE 400 MG TABLET PO SCH (09:35)
[2018-07-15] MEDS: METOPROLOL TARTRATE 25 MG TABLET PO SCH ×2 (09:37→21:27)
[2018-07-15] MEDS: FUROSEMIDE INJ/PF 40 MG/4 ML SDV IV SCH ×2 (09:37→21:27)
[2018-07-15] MEDS: APIXABAN 5 MG TABLET PO SCH ×2 (09:37→17:26)
[2018-07-15] MEDS: TIOTROPIUM BROMIDE DPI 5 CAP/KIT (18 MCG/CAP) IH SCH (09:38)
[2018-07-15] MEDS: FLUTICASONE/VILANTEROL 200-25 MCG/DOSE IH SCH (09:38)
[2018-07-15] MEDS: DIVALPROEX SODIUM 250 MG TABLET.DR PO SCH (17:26)
--- NOTE | 2018-07-15 17:54 | PDOC PROGRESS REPORT ---
Subjective Progress Note for:: 07/15/18 Subjective:: 68 y.o. M with a PMH of CHF, HTN, HLD, diabetes type 2, history of lymphoma, morbid obesity, COPD. He came to [facility] from [facility] for increased somnolence. Of note, the patient was recently discharged from [facility] for ARDS and respiratory failure. This year, the patient has had multiple recurrences of respiratory failure requiring intubation and mechanical ventilation. He has been admitted to [facility] ICU 3 times in 2019. The patient was seen this morning on rounds, at the bedside. He is resting comfortably in bed on nasal cannula. Nursing staff reports that the patient fell out of bed last night, ripped off his BIPAP mask. reports the patient was so agitated she left the hospital and went home. Upon evaluation, lungs are clear to auscultation. There is no evidence of peripheral or central cyanosis. Requesting PSYCH evaluation for patient to get medication recommendations, specifically to treat sundowning. Initiated olanzapine 48 hours ago, does not seem to be helping. Will add risperidone nightly. Reason For Visit: ACUTE ON CHRONIC HYPOXEMIC RESPIRATORY FAILURE Physical Exam Vital Signs: Temp Pulse Resp BP Pulse Ox 98.3 F 59 L 18 116/37 L 98 07/15/18 11:34 07/15/18 15:38 07/15/18 15:38 07/15/18 11:34 07/15/18 15:38 Intake & Output 07/14/18 07/15/18 07/16/18 06:59 06:59 06:59 Intake Total 990 1537 360 Output Total 200 Balance 990 1337 360 Weight 106.4 kg 104.4 kg General appearance: PRESENT: no acute distress, morbidly obese Head exam: PRESENT: atraumatic, normocephalic Eye exam: PRESENT: conjunctiva pink, EOMI, PERRLA. ABSENT: scleral icterus Ear exam: PRESENT: normal external ear exam Mouth exam: PRESENT: moist, tongue midline Teeth exam: PRESENT: poor dentation Neck exam: ABSENT: carotid bruit, JVD, lymphadenopathy, thyromegaly Respiratory exam: PRESENT: clear to auscultation ernesto, decreased breath sounds - Diminished in bilateral bases, symmetrical, unlabored. ABSENT: rales, rhonchi, wheezes Cardiovascular exam: PRESENT: RRR. ABSENT: diastolic murmur, rubs, systolic murmur Pulses: PRESENT: normal radial pulses, normal dorsalis pedis pul Vascular exam: PRESENT: normal capillary refill GI/Abdominal exam: PRESENT: normal bowel sounds, soft. ABSENT: distended, guarding, mass, organolmegaly, rebound, tenderness Rectal exam: PRESENT: deferred Extremities exam: PRESENT: full ROM. ABSENT: calf tenderness, clubbing, pedal edema Musculoskeletal exam: PRESENT: full ROM Neurological exam: PRESENT: alert, awake, oriented to person, oriented to place, oriented to time, oriented to situation, other - ORIENTED DURING DAYLIGHT HOURS. BECOMES CONFUSED AND AGITATED AT NIGHT. Psychiatric exam: PRESENT: appropriate affect, normal mood. ABSENT: homicidal ideation, suicidal ideation Skin exam: PRESENT: dry, intact, warm. ABSENT: cyanosis, rash Results Laboratory Results: 07/11/18 04:01 07/13/18 07:47 07/09/18 15:28 Troponin I 0.019 NT-Pro-B Natriuret Pep 9160 H Impressions: Chest X-Ray 07/10/18 10:45 IMPRESSION: Borderline cardiomegaly. Persistent prominence of right hilum. Follow-up with standard PA and lateral view would be helpful. Chest CT 07/11/18 00:00 IMPRESSION: Markedly improved pneumonia. No evidence of hilar mass. Status: Imported from PACS Assessment and Plan - Diagnosis (1) Acute and chronic respiratory failure Qualifiers: Respiratory failure complication: hypoxia and hypercapnia Qualified Code(s): J96.21 - Acute and chronic respiratory failure with hypoxia; J96.22 - Acute and chronic respiratory failure with hypercapnia Is this a current diagnosis for this admission?: Yes Plan: Recurrent admissions for the same diagnosis, oftentimes requiring intubation Initial ABG shows hypercarbic and hypoxic respiratory acidosis Initially on BiPAP admitted to the ICU, weaned to nasal cannula now in IMCU with BIPA QHS Scheduled and PRN nebulizer treatments Scheduled Spiriva and Breo PO prednisone BiPAP nightly Patient will require pulmonary referral upon discharge (2) Acute on chronic systolic congestive heart failure, NYHA class 3 Is this a current diagnosis for this admission?: Yes Plan: PMH congestive heart failure Bilateral +2 pitting edema PO lasix Continue beta raine (3) Acute encephalopathy Is this a current diagnosis for this admission?: Yes Plan: Multifactorial which includes metabolic and also drug-induced like Neurontin and Keppra. Continue to hold Keppra and other sedatives. Patient is alert and oriented today during interview but has periods of confusion requesting PSYCH evaluation for capacity as well as medication recommendations for sundowning. attempted olanzapine, but did not help. (4) Hypertension Qualifiers: Hypertension type: essential hypertension Qualified Code(s): I10 - Essential (primary) hypertension Is this a current diagnosis for this admission?: Yes Plan: PMH HTN Well-controlled Transition to PO lasix (5) Morbid obesity with BMI of 45.0-49.9, adult Is this a current diagnosis for this admission?: Yes Plan: Today, BMI is 33 Weight control with diet management at this time (6) Type 2 diabetes mellitus Is this a current diagnosis for this admission?: Yes Plan: PMH diabetes type 2 Humalog sliding scale insulin Accu-Cheks AC at bedtime Difficulty managing with 70/30, discontinued and initiated Lantus nightly Blood glucose is elevated above baseline due to IV steroids Patient is no longer wheezing, plan to wean oral steroids (7) Atrial fibrillation Qualifiers: Atrial fibrillation type: chronic Qualified Code(s): I48.2 - Chronic atrial fibrillation Is this a current diagnosis for this admission?: No Plan: PMH atrial fibrillation Rate controlled Continue home dose digoxin and metoprolol - Time Time Spent with patient: 15-24 minutes Medications reviewed and adjusted accordingly: Yes Anticipated discharge: SNF Within: within 48 hours - Inpatient Certification Based on my medical assessment, after consideration of the patient's comorbidities, presenting symptoms, or acuity I expect that the services needed warrant INPATIENT care.: Yes I certify that my determination is in accordance with my understanding of [facility]'s requirements for reasonable and necessary INPATIENT services [42 CFR 412.3e].: Yes Medical Necessity: Significant Comorbidiites Make Outpatient Treatment Too Risky, Need For Continuous Telemetry Monitoring, Need for Nebulizer Therapy and Monitoring of Response
[2018-07-15] MEDS: OLANZAPINE 5 MG TABLET PO SCH (17:59)
[2018-07-15] MEDS: INSULIN GLARGINE,HUM.REC.ANLOG 1,000 UNIT/10 ML VIAL SUBCUT SCH (21:24)
[2018-07-15] MEDS ORDERED: RISPERIDONE 0.25 MG TABLET PO SCH (22:00)
[2018-07-16] MEDS: IPRATROPIUM/ALBUTEROL 0.5-2.5 MG/3 ML AMPUL NEB SCH ×6 (00:38→19:38)
[2018-07-16] MEDS ORDERED: HALOPERIDOL LACTATE INJ 5 MG/1 ML VIAL ONE (03:24)
[2018-07-16] MEDS: HALOPERIDOL LACTATE INJ 5 MG/1 ML VIAL IV PRN ×2 (03:27→21:20)
[2018-07-16] MEDS: PREDNISONE 20 MG TABLET PO SCH ×3 (10:47→17:56)
[2018-07-16] MEDS: DIVALPROEX SODIUM 125 MG CAP.SPRINK PO SCH (10:47)
[2018-07-16] MEDS: FLUTICASONE/VILANTEROL 200-25 MCG/DOSE IH SCH (10:47)
[2018-07-16] MEDS: ASPIRIN 81 MG TABLET, ENT COATED PO SCH (10:47)
[2018-07-16] MEDS: DOCUSATE SODIUM 100 MG CAPSULE PO SCH ×2 (10:47→17:56)
[2018-07-16] MEDS: INSULIN LISPRO 100 UNIT/ML 3 ML VIAL SUBCUT SCH ×4 (10:47→21:26)
[2018-07-16] MEDS: TIOTROPIUM BROMIDE DPI 5 CAP/KIT (18 MCG/CAP) IH SCH (10:48)
[2018-07-16] MEDS: MAGNESIUM OXIDE 400 MG TABLET PO SCH (10:48)
[2018-07-16] MEDS: APIXABAN 5 MG TABLET PO SCH ×2 (10:48→17:56)
[2018-07-16] MEDS: DIGOXIN 0.125 MG TABLET PO SCH (10:48)
[2018-07-16] MEDS: METOPROLOL TARTRATE 25 MG TABLET PO SCH ×2 (10:48→21:20)
[2018-07-16] MEDS: PANTOPRAZOLE SODIUM 40 MG TABLET.DR PO SCH (10:48)
[2018-07-16 11:35] LABS: ARTERIAL BLOOD BASE EXCESS 19.8 mmol/L; ARTERIAL BLOOD H2CO3 2.32 mmol/L (1.05-1.35); ARTERIAL BLOOD HCO3 48.1 mmol/L (20-24); ARTERIAL BLOOD O2 SATURATION 85.1 % (94-98); ARTERIAL BLOOD PH 7.41 (7.35-7.45); ARTERIAL BLOOD PO2 51.8 mmHg (80-100); ARTERIAL BLOOD TOTAL CO2 50.4 mmol/L (23-27)
[2018-07-16 11:37] LABS: ARTERIAL BLOOD FIO2 30%
[2018-07-16 11:38] LABS: ARTERIAL BLOOD PCO2 77.2 mmHg (35-45)
[2018-07-16] MEDS: FUROSEMIDE INJ/PF 40 MG/4 ML SDV IV SCH ×2 (12:53→21:20)
[2018-07-16] MEDS: DIVALPROEX SODIUM 250 MG TABLET.DR PO SCH (17:56)
[2018-07-16] MEDS: OLANZAPINE 5 MG TABLET PO SCH (17:59)
--- NOTE | 2018-07-16 20:48 | PDOC PROGRESS REPORT ---
Subjective Progress Note for:: 07/16/18 Subjective:: 68 y.o. M with a PMH of CHF, HTN, HLD, diabetes type 2, history of lymphoma, morbid obesity, COPD. He came to [facility] from [facility] for increased somnolence. Of note, the patient was recently discharged from [facility] for ARDS and respiratory failure. This year, the patient has had multiple recurrences of respiratory failure requiring intubation and mechanical ventilation. He has been admitted to [facility] ICU 3 times in 2019. The patient was seen this morning on rounds, resting on BIPAP. He is confused, does not know where he is. He does not know why he is in the hospital. Concern regarding the patient's mental status and possible hypercapnea, ABG was done. Showed mild hypercapnea no acidosis. pO2 was in the 50s so increased FiO2. Upon evaluation, lungs are clear to auscultation. There is no evidence of peripheral or central cyanosis. PSYCH evaluated the patient yesterday evening. Their medication recommendations were to discontinue olanzepine and risperidone, initiate BID buspar. Later in the day, nursing staff reported the patient was much more lucid. He could tell me his name, year, location but he was still unaware of why he was in the hospital. I stressed the importance of wearing his BIPAP at night. Additionally, I re-addressed his code status. The patient confirmed that he wished to remain a FULL CODE and would like to be intubated if needed. Reason For Visit: ACUTE ON CHRONIC HYPOXEMIC RESPIRATORY FAILURE Physical Exam Vital Signs: Temp Pulse Resp BP Pulse Ox 98.8 F 70 22 H 147/117 H 90 L 07/16/18 15:35 07/16/18 19:38 07/16/18 19:38 07/16/18 15:35 07/16/18 19:38 Intake & Output 07/15/18 07/16/18 07/17/18 06:59 06:59 06:59 Intake Total 1537 1037 237 Output Total 200 20 Balance 1337 1037 217 Weight 104.4 kg 104.5 kg General appearance: PRESENT: no acute distress, morbidly obese Head exam: PRESENT: atraumatic, normocephalic Eye exam: PRESENT: conjunctiva pink, EOMI, PERRLA. ABSENT: scleral icterus Ear exam: PRESENT: normal external ear exam Mouth exam: PRESENT: moist, tongue midline Teeth exam: PRESENT: poor dentation Neck exam: PRESENT: full ROM. ABSENT: carotid bruit, JVD, lymphadenopathy, thyromegaly Respiratory exam: PRESENT: clear to auscultation ernesto, symmetrical, unlabored. ABSENT: rales, rhonchi, wheezes Cardiovascular exam: PRESENT: RRR. ABSENT: diastolic murmur, rubs, systolic murmur Pulses: PRESENT: normal radial pulses, +1 pedal pulses bilateral Vascular exam: PRESENT: normal capillary refill GI/Abdominal exam: PRESENT: normal bowel sounds, soft. ABSENT: distended, guarding, mass, organolmegaly, rebound, tenderness Rectal exam: PRESENT: deferred Extremities exam: PRESENT: full ROM. ABSENT: calf tenderness, clubbing, pedal edema Neurological exam: PRESENT: alert, awake, oriented to person, oriented to place, oriented to time. ABSENT: oriented to situation Psychiatric exam: PRESENT: appropriate affect, normal mood Skin exam: PRESENT: dry, intact, warm. ABSENT: cyanosis, rash Results Laboratory Results: 07/11/18 04:01 07/13/18 07:47 07/16/18 11:22 Carbonic Acid 2.32 H HCO3/H2CO3 Ratio 20:1 ABG pH 7.41 ABG pCO2 77.2 H* ABG pO2 51.8 L ABG HCO3 48.1 H ABG O2 Saturation 85.1 L ABG Base Excess 19.8 FiO2 30% 07/09/18 15:28 Troponin I 0.019 NT-Pro-B Natriuret Pep 9160 H Impressions: Chest X-Ray 07/10/18 10:45 IMPRESSION: Borderline cardiomegaly. Persistent prominence of right hilum. Follow-up with standard PA and lateral view would be helpful. Chest CT 07/11/18 00:00 IMPRESSION: Markedly improved pneumonia. No evidence of hilar mass. Status: Imported from PACS Assessment and Plan - Diagnosis (1) Acute and chronic respiratory failure Qualifiers: Respiratory failure complication: hypoxia and hypercapnia Qualified Code(s): J96.21 - Acute and chronic respiratory failure with hypoxia; J96.22 - Acute and chronic respiratory failure with hypercapnia Is this a current diagnosis for this admission?: Yes Plan: Recurrent admissions for the same diagnosis, oftentimes requiring intubation Initial ABG shows hypercarbic and hypoxic respiratory acidosis Initially on BiPAP admitted to the ICU, weaned to nasal cannula now in IMCU with BIPAP QHS Scheduled and PRN nebulizer treatments Scheduled Spiriva and Breo PO prednisone BiPAP nightly Patient will require pulmonary referral upon discharge (2) Acute on chronic systolic congestive heart failure, NYHA class 3 Is this a current diagnosis for this admission?: Yes Plan: PMH congestive heart failure Bilateral +2 pitting edema PO lasix Continue beta raine (3) Acute encephalopathy Is this a current diagnosis for this admission?: Yes Plan: Multifactorial which includes metabolic and also drug-induced (Neurontin and Keppra) Staff reports pattern of behavior that is similar to sundowning Patient will often attempt to get out of bed (has fallen once), rip off BIPAP mask, yell at during date night caregiver Keppra on hold Avoid benzodiazepines PRN haldol for agitation Patient is alert and oriented today during interview but has periods of confu david Requested PSYCH evaluation for medication recommendations for sundowning. PSYCH recommends BID Buspar. Will attempt trial of this new medication. (4) Hypertension Qualifiers: Hypertension type: essential hypertension Qualified Code(s): I10 - Essential (primary) hypertension Is this a current diagnosis for this admission?: Yes Plan: PMH HTN Well-controlled Transition to PO lasix (5) Morbid obesity with BMI of 45.0-49.9, adult Is this a current diagnosis for this admission?: Yes Plan: Today, BMI is 33 Weight control with diet management at this time (6) Type 2 diabetes mellitus Is this a current diagnosis for this admission?: Yes Plan: PMH diabetes type 2 Humalog sliding scale insulin Accu-Cheks AC at bedtime Difficulty managing with 70/30, discontinued and initiated Lantus nightly Blood glucose is elevated above baseline due to PO steroids (7) Atrial fibrillation Qualifiers: Atrial fibrillation type: chronic Qualified Code(s): I48.2 - Chronic atrial fibrillation Is this a current diagnosis for this admission?: No Plan: PMH atrial fibrillation Rate controlled Continue home dose digoxin and metoprolol - Time Time Spent with patient: 15-24 minutes Medications reviewed and adjusted accordingly: Yes Anticipated discharge: SNF Within: within 48 hours - Inpatient Certification Based on my medical assessment, after consideration of the patient's comorbidities, presenting symptoms, or acuity I expect that the services needed warrant INPATIENT care.: Yes I certify that my determination is in accordance with my understanding of Medicare's requirements for reasonable and necessary INPATIENT services [42 CFR 412.3e].: Yes Medical Necessity: Risk of Complication if Not Cared For in Hospital
[2018-07-16] MEDS: GABAPENTIN 300 MG CAPSULE PO SCH (21:20)
[2018-07-16] MEDS: BUSPIRONE HCL 10 MG TABLET PO SCH (21:20)
[2018-07-16] MEDS: INSULIN GLARGINE,HUM.REC.ANLOG 1,000 UNIT/10 ML VIAL SUBCUT SCH (21:21)
[2018-07-17] MEDS: IPRATROPIUM/ALBUTEROL 0.5-2.5 MG/3 ML AMPUL NEB SCH ×4 (00:15→12:21)
[2018-07-17 06:38] LABS: HEMATOCRIT 34.1 % (37.9-51.0); HEMOGLOBIN 10.9 g/dL (13.5-17.0); MEAN CORPUSCULAR HEMOGLOBIN 28.8 pg (27.0-33.4); MEAN CORPUSCULAR VOLUME 90 fl (80-97); PLATELET COUNT 229 10^3/uL (150-450); RED BLOOD COUNT 3.79 10^6/uL (4.35-5.55); RED CELL DISTRIBUTION WIDTH 15.1 % (11.5-14.0); WHITE BLOOD COUNT 16.4 10^3/uL (4.0-10.5)
[2018-07-17 06:51] LABS: BLOOD UREA NITROGEN 60 mg/dL (7-20); CALCIUM 8.3 mg/dL (8.4-10.2); CHLORIDE 87 mmol/L (98-107); GLUCOSE 163 mg/dL (75-110); POTASSIUM 4.8 mmol/L (3.6-5.0); SODIUM 141.9 mmol/L (137-145)
[2018-07-17 06:59] LABS: ANION GAP 12 (5-19)
[2018-07-17 07:02] LABS: CARBON DIOXIDE 43 mmol/L (22-30)
[2018-07-17] MEDS: INSULIN LISPRO 100 UNIT/ML 3 ML VIAL SUBCUT SCH ×4 (08:59→21:16)
[2018-07-17] MEDS: DIVALPROEX SODIUM 125 MG CAP.SPRINK PO SCH (09:01)
[2018-07-17] MEDS: FLUTICASONE/VILANTEROL 200-25 MCG/DOSE IH SCH (11:27)
[2018-07-17] MEDS: GABAPENTIN 300 MG CAPSULE PO SCH ×4 (11:28→21:09)
[2018-07-17] MEDS: PANTOPRAZOLE SODIUM 40 MG TABLET.DR PO SCH (11:28)
[2018-07-17] MEDS: TIOTROPIUM BROMIDE DPI 5 CAP/KIT (18 MCG/CAP) IH SCH (11:28)
[2018-07-17] MEDS: DOCUSATE SODIUM 100 MG CAPSULE PO SCH ×2 (11:28→18:10)
[2018-07-17] MEDS: FUROSEMIDE INJ/PF 40 MG/4 ML SDV IV SCH ×2 (11:28→21:10)
[2018-07-17] MEDS: APIXABAN 5 MG TABLET PO SCH ×2 (11:29→18:10)
[2018-07-17] MEDS: BUSPIRONE HCL 10 MG TABLET PO SCH ×2 (11:29→21:10)
[2018-07-17] MEDS: ASPIRIN 81 MG TABLET, ENT COATED PO SCH (11:29)
[2018-07-17] MEDS: DIGOXIN 0.125 MG TABLET PO SCH (11:29)
[2018-07-17] MEDS: METOPROLOL TARTRATE 25 MG TABLET PO SCH ×2 (11:29→21:09)
[2018-07-17] MEDS: MAGNESIUM OXIDE 400 MG TABLET PO SCH (11:29)
[2018-07-17] MEDS: PREDNISONE 20 MG TABLET PO SCH ×3 (11:30→18:10)
--- NOTE | 2018-07-17 13:52 | PDOC PROGRESS REPORT ---
Subjective Progress Note for:: 07/17/18 Subjective:: 68 y.o. M with a PMH of CHF, HTN, HLD, diabetes type 2, history of lymphoma, morbid obesity, COPD. He came to [facility] from [facility] for increased somnolence. Of note, the patient was recently discharged from [facility] for ARDS and respiratory failure. This year, the patient has had multiple recurrences of respiratory failure requiring intubation and mechanical ventilation. He has been admitted to [facility] ICU 3 times in 2019. The patient was seen this morning on rounds, resting on BIPAP. is at the bedside. The and nursing staff report that the patient was yelling overnight, ripped off his BiPAP mask and got into the heated argument with his son. It is evident that the patient becomes confused at night, does not know where he is, and becomes very agitated. Requested PSYCH evaluation for medication recommendations for sundowning. PSYCH recommends BID Buspar. Will attempt this anxiolytic. Added low dose seroquel QHS to regimen. Do not feel comfortable discharging the patient in his current state. He will likely get readmitted to the hospital for hypercapnic respiratory failure if we are not able to manage his sundowning. Reason For Visit: ACUTE ON CHRONIC HYPOXEMIC RESPIRATORY FAILURE Physical Exam Vital Signs: Temp Pulse Resp BP Pulse Ox 97.6 F 68 20 115/54 L 91 L 07/17/18 11:53 07/17/18 12:20 07/17/18 12:20 07/17/18 11:53 07/17/18 12:20 Intake & Output 07/16/18 07/17/18 07/18/18 06:59 06:59 06:59 Intake Total 1037 437 Output Total 260 Balance 1037 177 Weight 104.5 kg 104.6 kg General appearance: PRESENT: morbidly obese Eye exam: PRESENT: conjunctiva pink, PERRLA Mouth exam: PRESENT: dry mucosa, tongue midline Teeth exam: PRESENT: poor dentation Neck exam: PRESENT: full ROM Respiratory exam: PRESENT: clear to auscultation ernesto, symmetrical, unlabored, other - Requires continuous supplemental oxygen via nasal cannula and BiPAP nightly Cardiovascular exam: PRESENT: bradycardia Pulses: PRESENT: normal radial pulses, +1 pedal pulses bilateral GI/Abdominal exam: PRESENT: soft. ABSENT: distended, tenderness Rectal exam: PRESENT: deferred Extremities exam: PRESENT: full ROM. ABSENT: pedal edema Musculoskeletal exam: PRESENT: full ROM. ABSENT: ambulatory Neurological exam: PRESENT: alert, awake, oriented to person, oriented to place, oriented to time. ABSENT: oriented to situation Psychiatric exam: PRESENT: other - Agitation and confusion nightly. Nursing staff reports the patient's altered behavior typically starts at about 1630 and lasts for most of the night. Skin exam: PRESENT: dry, intact Results Laboratory Results: 07/17/18 05:27 07/17/18 05:27 07/17/18 07/17/18 05:27 05:27 WBC 16.4 H RBC 3.79 L Hgb 10.9 L Hct 34.1 L MCV 90 MCH 28.8 MCHC 32.0 RDW 15.1 H Plt Count 229 Sodium 141.9 Potassium 4.8 Chloride 87 L Carbon Dioxide 43 H* Anion Gap 12 BUN 60 H Creatinine 0.99 Est GFR ( Amer) > 60 Est GFR (Non-Af Amer) > 60 Glucose 163 H Calcium 8.3 L 07/09/18 15:28 Troponin I 0.019 NT-Pro-B Natriuret Pep 9160 H Impressions: Chest X-Ray 07/10/18 10:45 IMPRESSION: Borderline cardiomegaly. Persistent prominence of right hilum. Follow-up with standard PA and lateral view would be helpful. Chest CT 07/11/18 00:00 IMPRESSION: Markedly improved pneumonia. No evidence of hilar mass. Status: Imported from PACS Assessment and Plan - Diagnosis (1) Acute and chronic respiratory failure Qualifiers: Respiratory failure complication: hypoxia and hypercapnia Qualified Code(s): J96.21 - Acute and chronic respiratory failure with hypoxia; J96.22 - Acute and chronic respiratory failure with hypercapnia Is this a current diagnosis for this admission?: Yes Plan: Recurrent admissions for the same diagnosis, oftentimes requiring intubation Initial ABG shows hypercarbic and hypoxic respiratory acidosis Initially on BiPAP admitted to the ICU, weaned to nasal cannula now in IMCU with BIPAP QHS PRN nebulizer treatments Scheduled Spiriva and Breo PO prednisone BiPAP nightly Patient will require pulmonary referral upon discharge (2) Acute on chronic systolic congestive heart failure, NYHA class 3 Is this a current diagnosis for this admission?: Yes Plan: PMH congestive heart failure Bilateral +2 pitting edema PO lasix Continue beta raine (3) Acute encephalopathy Is this a current diagnosis for this admission?: Yes Plan: Multifactorial which includes metabolic and drug-induced (Neurontin and Keppra) Staff reports pattern of behavior that is similar to sundowning Patient will often attempt to get out of bed (has fallen once), rip off BIPAP mask, yell at during security shift supervisor Keppra on hold Avoid benzodiazepines PRN haldol for agitation Patient is alert and oriented today during interview but has periods of confusion Requested PSYCH evaluation for medication recommendations for sundowning. PSYCH recommends BID Buspar. Will attempt this anxiolytic. Added low dose seroquel QHS to regimen. (4) Hypertension Qualifiers: Hypertension type: essential hypertension Qualified Code(s): I10 - Essential (primary) hypertension Is this a current diagnosis for this admission?: Yes Plan: PMH HTN Well-controlled Continue lasix and metoprolol (5) Morbid obesity with BMI of 45.0-49.9, adult Is this a current diagnosis for this admission?: Yes Plan: Today, BMI is 33 Weight control with diet management at this time (6) Type 2 diabetes mellitus Is this a current diagnosis for this admission?: Yes Plan: PMH diabetes type 2 Humalog sliding scale insulin Accu-Cheks AC at bedtime Difficulty managing with 70/30, discontinued and initiated Lantus nightly Blood glucose is elevated above baseline due to PO steroids (7) Atrial fibrillation Qualifiers: Atrial fibrillation type: chronic Qualified Code(s): I48.2 - Chronic atrial fibrillation Is this a current diagnosis for this admission?: No Plan: PMH atrial fibrillation Currently sinus bradycardia (45-55 bpm) Continue home dose digoxin and metoprolol - Time Time Spent with patient: 15-24 minutes Medications reviewed and adjusted accordingly: Yes Anticipated discharge: Home - Inpatient Certification Based on my medical assessment, after consideration of the patient's comorbidities, presenting symptoms, or acuity I expect that the services needed warrant INPATIENT care.: Yes I certify that my determination is in accordance with my understanding of Medicare's requirements for reasonable and necessary INPATIENT services [42 CFR 412.3e].: Yes Medical Necessity: Need For Continuous Telemetry Monitoring, Risk of Complication if Not Cared For in Hospital
[2018-07-17] MEDS: DIVALPROEX SODIUM 250 MG TABLET.DR PO SCH (18:10)
[2018-07-17] MEDS: SALMETEROL XINAFOATE DISKUS 50 MCG/1 DOSE 28 DOSE IH SCH ×2 (18:11→21:13)
[2018-07-17] MEDS ORDERED: GABAPENTIN 300 MG CAPSULE PO SCH (18:30)
[2018-07-17] MEDS: INSULIN GLARGINE,HUM.REC.ANLOG 1,000 UNIT/10 ML VIAL SUBCUT SCH (21:13)
[2018-07-17] MEDS: QUETIAPINE FUMARATE 25 MG TABLET PO SCH (21:16)
[2018-07-17] MEDS ORDERED: QUETIAPINE FUMARATE 25 MG TABLET PO SCH (22:00)
[2018-07-18] MEDS ORDERED: HALOPERIDOL LACTATE INJ 5 MG/1 ML VIAL IV PRN (08:51)
[2018-07-18] MEDS: DIVALPROEX SODIUM 125 MG CAP.SPRINK PO SCH (08:57)
[2018-07-18] MEDS: INSULIN LISPRO 100 UNIT/ML 3 ML VIAL SUBCUT SCH ×4 (08:58→22:36)
[2018-07-18] MEDS: SALMETEROL XINAFOATE DISKUS 50 MCG/1 DOSE 28 DOSE IH SCH ×2 (09:02→22:15)
[2018-07-18] MEDS: BUSPIRONE HCL 10 MG TABLET PO SCH (09:02)
[2018-07-18] MEDS: FLUTICASONE/VILANTEROL 200-25 MCG/DOSE IH SCH (09:02)
[2018-07-18] MEDS: TIOTROPIUM BROMIDE DPI 5 CAP/KIT (18 MCG/CAP) IH SCH (09:03)
[2018-07-18] MEDS: APIXABAN 5 MG TABLET PO SCH ×2 (09:07→17:31)
[2018-07-18] MEDS: DOCUSATE SODIUM 100 MG CAPSULE PO SCH ×2 (09:07→17:31)
[2018-07-18] MEDS: DIGOXIN 0.125 MG TABLET PO SCH (09:07)
[2018-07-18] MEDS: MAGNESIUM OXIDE 400 MG TABLET PO SCH (09:07)
[2018-07-18] MEDS: ASPIRIN 81 MG TABLET, ENT COATED PO SCH (09:08)
[2018-07-18] MEDS: METOPROLOL TARTRATE 25 MG TABLET PO SCH ×2 (09:08→22:20)
[2018-07-18] MEDS: GABAPENTIN 300 MG CAPSULE PO SCH ×4 (09:08→22:16)
[2018-07-18] MEDS: PANTOPRAZOLE SODIUM 40 MG TABLET.DR PO SCH (09:08)
[2018-07-18] MEDS: QUETIAPINE FUMARATE 25 MG TABLET PO SCH (09:08)
[2018-07-18] MEDS: PREDNISONE 20 MG TABLET PO SCH ×3 (09:08→17:31)
[2018-07-18] MEDS: FUROSEMIDE 40 MG TABLET PO SCH ×2 (09:17→17:31)
[2018-07-18] MEDS ORDERED: BUSPIRONE HCL 10 MG TABLET PO SCH (10:00)
[2018-07-18 10:07] LABS: HEMOGLOBIN 10.2 g/dL (13.5-17.0); MEAN CORPUSCULAR HEMOGLOBIN 29.3 pg (27.0-33.4); MEAN CORPUSCULAR HGB CONC 31.9 g/dL (32.0-36.0); MEAN CORPUSCULAR VOLUME 92 fl (80-97); PLATELET COUNT 221 10^3/uL (150-450); RED BLOOD COUNT 3.48 10^6/uL (4.35-5.55); RED CELL DISTRIBUTION WIDTH 15.3 % (11.5-14.0); WHITE BLOOD COUNT 16.3 10^3/uL (4.0-10.5)
[2018-07-18 10:40] LABS: ALANINE AMINOTRANSFERASE 38 U/L (21-72); ALBUMIN 3.4 g/dL (3.5-5.0); ALKALINE PHOSPHATASE 125 U/L (38-126); ASPARTATE AMINO TRANSFERASE 22 U/L (17-59); BILIRUBIN,DIRECT 0.4 mg/dL (0.0-0.4); BILIRUBIN,TOTAL 0.5 mg/dL (0.2-1.3); BLOOD UREA NITROGEN 72 mg/dL (7-20); CALCIUM 8.1 mg/dL (8.4-10.2); CHLORIDE 91 mmol/L (98-107); GLUCOSE 275 mg/dL (75-110); PHOSPHORUS 5.8 mg/dL (2.5-4.5); POTASSIUM 5.2 mmol/L (3.6-5.0); SODIUM 142.4 mmol/L (137-145); TOTAL PROTEIN 5.8 g/dL (6.3-8.2)
[2018-07-18 10:46] LABS: ANION GAP 8 (5-19)
[2018-07-18 10:48] LABS: CARBON DIOXIDE 43 mmol/L (22-30)
--- NOTE | 2018-07-18 15:21 | PDOC PROGRESS REPORT ---
Subjective Progress Note for:: 07/18/18 Subjective:: 68 y.o. M with a PMH of CHF, HTN, HLD, diabetes type 2, history of lymphoma, morbid obesity, COPD. He came to [facility] from [facility] for increased somnolence. Of note, the patient was recently discharged from [facility] for ARDS and respiratory failure. This year, the patient has had multiple recurrences of respiratory failure requiring intubation and mechanical ventilation. He has been admitted to [facility] ICU 3 times in 2019. The patient was seen this morning on rounds, resting on BIPAP. is at the bedside. The and nursing staff report that the patient was slept most of the night. He required 1 dose of IV PRN Haldol yesterday evening due to agitation. Per PSYCH recommendations, initiated BID Buspar yesterday. Additionally, increased the dose of BID Depakote (patient does not have seizure history, this is used for mood stabilization in a patient with dementia). Because of patient's somnolence, will place BuSpar on hold, decreased dosage of IV PRN Haldol. Do not feel comfortable discharging the patient in his current state. He will likely get readmitted to the hospital for hypercapnic respiratory failure if we are not able to manage his . He will remain inpatient for hypoxic/hypercapnic respiratory failure and acute delirium. Reason For Visit: ACUTE ON CHRONIC HYPOXEMIC RESPIRATORY FAILURE Physical Exam Vital Signs: Temp Pulse Resp BP Pulse Ox 98.6 F 65 17 141/50 H 94 07/18/18 11:38 07/18/18 14:00 07/18/18 12:23 07/18/18 11:38 07/18/18 12:23 Intake & Output 07/17/18 07/18/18 07/19/18 06:59 06:59 06:59 Intake Total 437 542 Output Total 260 Balance 177 542 Weight 104.6 kg 104.5 kg General appearance: PRESENT: morbidly obese Eye exam: PRESENT: conjunctiva pink, PERRLA Mouth exam: PRESENT: tongue midline Teeth exam: PRESENT: poor dentation Neck exam: PRESENT: full ROM Respiratory exam: PRESENT: clear to auscultation ernesto, symmetrical, other - Requiring supplemental oxygen via nasal cannula during the day and BiPAP nightly Cardiovascular exam: PRESENT: bradycardia Pulses: PRESENT: normal radial pulses Vascular exam: PRESENT: normal capillary refill GI/Abdominal exam: PRESENT: soft. ABSENT: distended, tenderness Rectal exam: PRESENT: deferred Extremities exam: ABSENT: pedal edema Musculoskeletal exam: PRESENT: normal inspection. ABSENT: deformity Neurological exam: PRESENT: alert, awake, oriented to person, oriented to place, oriented to time. ABSENT: oriented to situation Psychiatric exam: PRESENT: other - Drowsy Skin exam: PRESENT: dry, intact, normal color Results Laboratory Results: 07/18/18 09:48 07/18/18 09:48 07/18/18 07/18/18 09:48 09:48 WBC 16.3 H RBC 3.48 L Hgb 10.2 L Hct 32.0 L MCV 92 MCH 29.3 MCHC 31.9 L RDW 15.3 H Plt Count 221 Sodium 142.4 Potassium 5.2 H Chloride 91 L Carbon Dioxide 43 H* Anion Gap 8 BUN 72 H Creatinine 1.04 Est GFR ( Amer) > 60 Est GFR (Non-Af Amer) > 60 Glucose 275 H Calcium 8.1 L Phosphorus 5.8 H Magnesium 2.6 H Total Bilirubin 0.5 AST 22 ALT 38 Alkaline Phosphatase 125 Total Protein 5.8 L Albumin 3.4 L 07/09/18 15:28 Troponin I 0.019 NT-Pro-B Natriuret Pep 9160 H Impressions: Chest X-Ray 07/10/18 10:45 IMPRESSION: Borderline cardiomegaly. Persistent prominence of right hilum. Follow-up with standard PA and lateral view would be helpful. Chest CT 07/11/18 00:00 IMPRESSION: Markedly improved pneumonia. No evidence of hilar mass. Status: Imported from PACS Assessment and Plan - Diagnosis (1) Acute and chronic respiratory failure Qualifiers: Respiratory failure complication: hypoxia and hypercapnia Qualified Code(s): J96.21 - Acute and chronic respiratory failure with hypoxia; J96.22 - Acute and chronic respiratory failure with hypercapnia Is this a current diagnosis for this admission?: Yes Plan: Recurrent admissions for the same diagnosis, oftentimes requiring intubation Initial ABG shows hypercarbic and hypoxic respiratory acidosis Initially on BiPAP admitted to the ICU, weaned to nasal cannula now in IMCU with BIPAP QHS PRN nebulizer treatments Scheduled Spiriva and Breo PO prednisone BiPAP nightly Patient will require pulmonary referral upon discharge (2) Acute on chronic systolic congestive heart failure, NYHA class 3 Is this a current diagnosis for this admission?: Yes Plan: PMH congestive heart failure Bilateral +2 pitting edema PO lasix Continue beta raine (3) Acute encephalopathy Is this a current diagnosis for this admission?: Yes Plan: Multifactorial which includes metabolic and drug-induced (Neurontin and Keppra) Staff reports pattern of behavior that is similar to sundowning Patient will often attempt to get out of bed (has fallen once), rip off BIPAP m ask, yell at during shift boss Keppra on hold Avoid benzodiazepines PRN haldol for agitation Patient is alert and oriented today during interview but has periods of confusion Requested PSYCH evaluation for medication recommendations for sundowning. PSYCH recommends BID Buspar. Will attempt this anxiolytic. Added low dose seroquel QHS to regimen. (4) Hypertension Qualifiers: Hypertension type: essential hypertension Qualified Code(s): I10 - Essential (primary) hypertension Is this a current diagnosis for this admission?: Yes Plan: PMH HTN Well-controlled Continue lasix and metoprolol (5) Morbid obesity with BMI of 45.0-49.9, adult Is this a current diagnosis for this admission?: Yes Plan: Today, BMI is 33 Weight control with diet management at this time (6) Type 2 diabetes mellitus Is this a current diagnosis for this admission?: Yes Plan: PMH diabetes type 2 Humalog sliding scale insulin Accu-Cheks AC at bedtime Difficulty managing with 70/30, discontinued and initiated Lantus nightly Blood glucose is elevated above baseline due to PO steroids (7) Atrial fibrillation Qualifiers: Atrial fibrillation type: chronic Qualified Code(s): I48.2 - Chronic atrial fibrillation Is this a current diagnosis for this admission?: No Plan: PMH atrial fibrillation Currently sinus bradycardia (45-55 bpm) Continue home dose digoxin and metoprolol - Time Time Spent with patient: 15-24 minutes Medications reviewed and adjusted accordingly: Yes Anticipated discharge: Home - Inpatient Certification Based on my medical assessment, after consideration of the patient's comorbiditi es, presenting symptoms, or acuity I expect that the services needed warrant INPATIENT care.: Yes I certify that my determination is in accordance with my understanding of [facility]'s requirements for reasonable and necessary INPATIENT services [42 CFR 412.3e].: Yes Medical Necessity: Risk of Complication if Not Cared For in Hospital
[2018-07-18] MEDS: DIVALPROEX SODIUM 250 MG TABLET.DR PO SCH (17:31)
[2018-07-18] MEDS: INSULIN GLARGINE,HUM.REC.ANLOG 1,000 UNIT/10 ML VIAL SUBCUT SCH (22:14)
[2018-07-19 05:19] LABS: HEMATOCRIT 31.2 % (37.9-51.0); HEMOGLOBIN 10.2 g/dL (13.5-17.0); MEAN CORPUSCULAR HEMOGLOBIN 29.6 pg (27.0-33.4); MEAN CORPUSCULAR HGB CONC 32.7 g/dL (32.0-36.0); MEAN CORPUSCULAR VOLUME 91 fl (80-97); PLATELET COUNT 227 10^3/uL (150-450); RED BLOOD COUNT 3.45 10^6/uL (4.35-5.55); RED CELL DISTRIBUTION WIDTH 14.8 % (11.5-14.0); WHITE BLOOD COUNT 15.8 10^3/uL (4.0-10.5)
[2018-07-19 06:48] LABS: ARTERIAL BLOOD BASE EXCESS 22.2 mmol/L; ARTERIAL BLOOD H2CO3 2.75 mmol/L (1.05-1.35); ARTERIAL BLOOD HCO3 51.7 mmol/L (20-24); ARTERIAL BLOOD O2 SATURATION 97.7 % (94-98); ARTERIAL BLOOD PH 7.37 (7.35-7.45); ARTERIAL BLOOD PO2 113.8 mmHg (80-100); ARTERIAL BLOOD TOTAL CO2 54.5 mmol/L (23-27)
[2018-07-19 06:49] LABS: ARTERIAL BLOOD FIO2 50%
[2018-07-19 06:52] LABS: ARTERIAL BLOOD PCO2 91.4 mmHg (35-45)
[2018-07-19 08:18] LABS: ALANINE AMINOTRANSFERASE 34 U/L (21-72); ALBUMIN 3.3 g/dL (3.5-5.0); ALKALINE PHOSPHATASE 84 U/L (38-126); ASPARTATE AMINO TRANSFERASE 16 U/L (17-59); BILIRUBIN,DIRECT 0.5 mg/dL (0.0-0.4); BILIRUBIN,TOTAL 0.8 mg/dL (0.2-1.3); BLOOD UREA NITROGEN 70 mg/dL (7-20); CALCIUM 8.3 mg/dL (8.4-10.2); CHLORIDE 89 mmol/L (98-107); GLUCOSE 112 mg/dL (75-110); PHOSPHORUS 3.9 mg/dL (2.5-4.5); POTASSIUM 4.7 mmol/L (3.6-5.0); SODIUM 140.7 mmol/L (137-145); TOTAL PROTEIN 5.7 g/dL (6.3-8.2)
[2018-07-19 08:27] LABS: ANION GAP 4 (5-19)
[2018-07-19 08:55] LABS: CARBON DIOXIDE 48 mmol/L (22-30)
[2018-07-19] MEDS: INSULIN LISPRO 100 UNIT/ML 3 ML VIAL SUBCUT SCH ×4 (10:29→21:17)
[2018-07-19] MEDS: DOCUSATE SODIUM 100 MG CAPSULE PO SCH ×2 (10:35→17:25)
[2018-07-19] MEDS: METOPROLOL TARTRATE 25 MG TABLET PO SCH ×2 (10:35→21:17)
[2018-07-19] MEDS: ASPIRIN 81 MG TABLET, ENT COATED PO SCH (10:35)
[2018-07-19] MEDS: FUROSEMIDE 40 MG TABLET PO SCH ×2 (10:36→17:24)
[2018-07-19] MEDS: PREDNISONE 20 MG TABLET PO SCH ×3 (10:36→17:25)
[2018-07-19] MEDS: PANTOPRAZOLE SODIUM 40 MG TABLET.DR PO SCH (10:36)
[2018-07-19] MEDS: APIXABAN 5 MG TABLET PO SCH ×2 (10:36→17:24)
[2018-07-19] MEDS: DIVALPROEX SODIUM 125 MG CAP.SPRINK PO SCH (10:36)
[2018-07-19] MEDS: GABAPENTIN 300 MG CAPSULE PO SCH ×2 (10:36→14:23)
[2018-07-19] MEDS: MAGNESIUM OXIDE 400 MG TABLET PO SCH (10:36)
[2018-07-19] MEDS: DIGOXIN 0.125 MG TABLET PO SCH (10:36)
[2018-07-19] MEDS: QUETIAPINE FUMARATE 25 MG TABLET PO SCH (10:36)
[2018-07-19] MEDS: TIOTROPIUM BROMIDE DPI 5 CAP/KIT (18 MCG/CAP) IH SCH (10:37)
[2018-07-19] MEDS: SALMETEROL XINAFOATE DISKUS 50 MCG/1 DOSE 28 DOSE IH SCH ×2 (10:38→21:17)
[2018-07-19] MEDS: FLUTICASONE/VILANTEROL 200-25 MCG/DOSE IH SCH (10:39)
--- NOTE | 2018-07-19 15:12 | PDOC PROGRESS REPORT ---
Subjective Progress Note for:: 07/19/18 Subjective:: 68 y.o. M with a PMH of CHF, HTN, HLD, diabetes type 2, history of lymphoma, morbid obesity, COPD. [facility] for increased somnolence. Of note, the patient was recently discharged from [facility] for ARDS and respiratory failure. This year, the patient has had multiple recurrences of respiratory failure requiring intubation and mechanical ventilation. He has been [facility] times in 2019. The patient was seen this morning on rounds, resting on nasal cannula. is at the bedside. Nursing staff reports that the patient would not wear his BiPAP overnight, he would depart the BiPAP mask and did not fall asleep (on BiPAP) until approximately 0300. Remains on BID Depakote (patient does not have seizure history, this is used for mood stabilization in a patient with dementia) and HS seoquel. Do not feel comfortable discharging the patient in his current state. He will likely get readmitted to the hospital for hypercapnic respiratory failure if we are not able to manage his owning. He will remain inpatient for hypoxic/hypercapnic respiratory failure and acute delirium. Reason For Visit: ACUTE ON CHRONIC HYPOXEMIC RESPIRATORY FAILURE Physical Exam Vital Signs: Temp Pulse Resp BP Pulse Ox 98.3 F 62 15 169/54 H 93 07/19/18 12:10 07/19/18 12:10 07/19/18 12:10 07/19/18 12:10 07/19/18 12:10 Intake & Output 07/18/18 07/19/18 07/20/18 06:59 06:59 06:59 Intake Total 542 400 222 Balance 542 400 222 Weight 104.5 kg 102.2 kg General appearance: PRESENT: morbidly obese Eye exam: PRESENT: conjunctiva pink, PERRLA Mouth exam: PRESENT: moist Teeth exam: PRESENT: poor dentation Neck exam: PRESENT: full ROM Respiratory exam: PRESENT: clear to auscultation ernesto, symmetrical, other - Requiring supplemental oxygen via nasal cannula during the day and BiPAP nightly Cardiovascular exam: PRESENT: bradycardia - Sinus bradycardia., irregular rhythm Pulses: PRESENT: normal radial pulses, normal dorsalis pedis pul Vascular exam: PRESENT: normal capillary refill GI/Abdominal exam: PRESENT: soft. ABSENT: distended, tenderness Rectal exam: PRESENT: deferred Extremities exam: PRESENT: full ROM. ABSENT: pedal edema Musculoskeletal exam: PRESENT: ambulatory - With assistance and use of a walker, full ROM Neurological exam: PRESENT: alert, awake, oriented to person, oriented to place. ABSENT: oriented to time, oriented to situation Psychiatric exam: PRESENT: agitated, anxious, other - The patient is easily agitated and well through medical equipment across the room. ABSENT: appropriate affect Skin exam: PRESENT: dry, intact, normal color Results Laboratory Results: 07/19/18 05:02 07/19/18 07:50 07/19/18 07/19/18 07/19/18 05:02 05:02 06:35 WBC 15.8 H RBC 3.45 L Hgb 10.2 L Hct 31.2 L MCV 91 MCH 29.6 MCHC 32.7 RDW 14.8 H Plt Count 227 Carbonic Acid 2.75 H HCO3/H2CO3 Ratio 18:1 ABG pH 7.37 ABG pCO2 91.4 H* ABG pO2 113.8 H ABG HCO3 51.7 H ABG O2 Saturation 97.7 ABG Base Excess 22.2 FiO2 50% Sodium Cancelled Potassium Cancelled Chloride Cancelled Carbon Dioxide Cancelled Anion Gap Cancelled BUN Cancelled Creatinine Cancelled Est GFR ( Amer) Cancelled Est GFR (Non-Af Amer) Cancelled Glucose Cancelled Calcium Cancelled Phosphorus Cancelled Magnesium Cancelled Total Bilirubin Cancelled AST Cancelled ALT Cancelled Alkaline Phosphatase Cancelled Total Protein Cancelled Albumin Cancelled 07/19/18 07:50 WBC RBC Hgb Hct MCV MCH MCHC RDW Plt Count Carbonic Acid HCO3/H2CO3 Ratio ABG pH ABG pCO2 ABG pO2 ABG HCO3 ABG O2 Saturation ABG Base Excess FiO2 Sodium 140.7 Potassium 4.7 Chloride 89 L Carbon Dioxide 48 H* Anion Gap 4 L BUN 70 H Creatinine 0.85 Est GFR ( Amer) > 60 Est GFR (Non-Af Amer) > 60 Glucose 112 H Calcium 8.3 L Phosphorus 3.9 Magnesium 2.7 H Total Bilirubin 0.8 AST 16 L ALT 34 Alkaline Phosphatase 84 Total Protein 5.7 L Albumin 3.3 L 07/09/18 15:28 Troponin I 0.019 NT-Pro-B Natriuret Pep 9160 H Impressions: Chest X-Ray 07/10/18 10:45 IMPRESSION: Borderline cardiomegaly. Persistent prominence of right hilum. Follow-up with standard PA and lateral view would be helpful. Chest CT 07/11/18 00:00 IMPRESSION: Markedly improved pneumonia. No evidence of hilar mass. Status: Imported from PACS Assessment and Plan - Diagnosis (1) Acute and chronic respiratory failure Qualifiers: Respiratory failure complication: hypoxia and hypercapnia Qualified Code(s): J96.21 - Acute and chronic respiratory failure with hypoxia; J96.22 - Acute and chronic respiratory failure with hypercapnia Is this a current diagnosis for this admission?: Yes Plan: Recurrent admissions for the same diagnosis, oftentimes requiring intubation Initial ABG shows hypercarbic and hypoxic respiratory acidosis Initially on BiPAP admitted to the ICU, weaned to nasal cannula now in IMCU with BIPAP QHS Acidosis has resolved but patient remains hypercapinc, an expected finding in someone with COPD. PRN nebulizer treatments Scheduled Spiriva and Breo PO prednisone - weaned today from 20mg TID to 20mg BID BiPAP nightly Patient will require pulmonary referral upon discharge (2) Acute on chronic systolic congestive heart failure, NYHA class 3 Is this a current diagnosis for this admission?: Yes Plan: PMH congestive heart failure Bilateral +2 pitting edema PO lasix Continue beta raine (3) Acute encephalopathy Is this a current diagnosis for this admission?: Yes Plan: Multifactorial which includes metabolic and drug-induced (Neurontin and Keppra) Staff reports pattern of behavior that is similar to sundowning Patient will often attempt to get out of bed (has fallen once), rip off BIPAP mask, yell at during retail shift leader Keppra on hold Avoid benzodiazepines Low dose PRN haldol for agitation Decreased Neurontin dose from 300mg QID to 100mg QID Patient is alert and oriented today during interview but has periods of confusion BID Depakote - initiated by staff at [facility] for agitation in a patient with dementia [facility] Héctor Requested PSYCH evaluation for medication recommendations for sundowning. PSYCH recommends BID Buspar. Patient became very lethargic on this medication, sleeping all day and night. This medicatin is currently on hold. (4) Hypertension Qualifiers: Hypertension type: essential hypertension Qualified Code(s): I10 - Essential (primary) hypertension Is this a current diagnosis for this admission?: Yes Plan: PMH HTN Well-controlled Continue lasix and metoprolol (5) Morbid obesity with BMI of 45.0-49.9, adult Is this a current diagnosis for this admission?: Yes Plan: Today, BMI is 33 Weight control with diet management at this time Patient is tolerating his p.o. diet very well (6) Type 2 diabetes mellitus Is this a current diagnosis for this admission?: Yes Plan: PMH diabetes type 2 Humalog sliding scale insulin Accu-Cheks AC at bedtime Difficulty managing with 70/30, discontinued and initiated Lantus nightly Blood glucose is elevated above baseline due to PO steroids (7) Atrial fibrillation Qualifiers: Atrial fibrillation type: chronic Qualified Code(s): I48.2 - Chronic atrial fibrillation Is this a current diagnosis for this admission?: No Plan: PMH atrial fibrillation Currently sinus bradycardia (45-55 bpm) Continue home dose digoxin and metoprolol - Time Time Spent with patient: 15-24 minutes Medications reviewed and adjusted accordingly: Yes Anticipated discharge: SNF Within: within 72 hours - Inpatient Certification Based on my medical assessment, after consideration of the patient's comorbidities, presenting symptoms, or acuity I expect that the services needed warrant INPATIENT care.: Yes I certify that my determination is in accordance with my understanding of Medicare's requirements for reasonable and necessary INPATIENT services [42 CFR 412.3e].: Yes Medical Necessity: Need For Continuous Telemetry Monitoring, Need for Nebulizer Therapy and Monitoring of Response, Risk of Complication if Not Cared For in Hospital
[2018-07-19] MEDS: GABAPENTIN 100 MG CAPSULE PO SCH ×2 (17:24→23:52)
[2018-07-19] MEDS: DIVALPROEX SODIUM 250 MG TABLET.DR PO SCH (17:24)
[2018-07-19] MEDS ORDERED: GABAPENTIN 300 MG CAPSULE PO SCH (18:00)
[2018-07-19] MEDS: INSULIN GLARGINE,HUM.REC.ANLOG 1,000 UNIT/10 ML VIAL SUBCUT SCH (21:17)
[2018-07-20 04:54] LABS: ARTERIAL BLOOD BASE EXCESS 21.8 mmol/L; ARTERIAL BLOOD H2CO3 2.29 mmol/L (1.05-1.35); ARTERIAL BLOOD HCO3 49.9 mmol/L (20-24); ARTERIAL BLOOD O2 SATURATION 95.5 % (94-98); ARTERIAL BLOOD PH 7.43 (7.35-7.45); ARTERIAL BLOOD PO2 79.8 mmHg (80-100); ARTERIAL BLOOD TOTAL CO2 52.2 mmol/L (23-27)
[2018-07-20 04:55] LABS: ARTERIAL BLOOD FIO2 4L
[2018-07-20 04:57] LABS: ARTERIAL BLOOD PCO2 76.2 mmHg (35-45)
[2018-07-20] MEDS: GABAPENTIN 100 MG CAPSULE PO SCH ×4 (05:11→23:02)
[2018-07-20 06:10] LABS: ALANINE AMINOTRANSFERASE 28 U/L (21-72); ALBUMIN 3.3 g/dL (3.5-5.0); ALKALINE PHOSPHATASE 98 U/L (38-126); ASPARTATE AMINO TRANSFERASE 16 U/L (17-59); BILIRUBIN,DIRECT 0.3 mg/dL (0.0-0.4); BILIRUBIN,TOTAL 0.6 mg/dL (0.2-1.3); BLOOD UREA NITROGEN 70 mg/dL (7-20); CALCIUM 8.6 mg/dL (8.4-10.2); CHLORIDE 85 mmol/L (98-107); GLUCOSE 146 mg/dL (75-110); PHOSPHORUS 4.1 mg/dL (2.5-4.5); POTASSIUM 4.8 mmol/L (3.6-5.0); SODIUM 138.8 mmol/L (137-145); TOTAL PROTEIN 5.9 g/dL (6.3-8.2)
[2018-07-20 06:13] LABS: HEMATOCRIT 31.1 % (37.9-51.0); MEAN CORPUSCULAR HEMOGLOBIN 28.7 pg (27.0-33.4); MEAN CORPUSCULAR HGB CONC 32.2 g/dL (32.0-36.0); MEAN CORPUSCULAR VOLUME 89 fl (80-97); PLATELET COUNT 220 10^3/uL (150-450); RED BLOOD COUNT 3.49 10^6/uL (4.35-5.55); RED CELL DISTRIBUTION WIDTH 14.8 % (11.5-14.0); WHITE BLOOD COUNT 11.4 10^3/uL (4.0-10.5)
--- NOTE | 2018-07-20 06:15 | ADVANCED CARE ---
- Diagnosis (1) Acute and chronic respiratory failure Diagnosis Current: Yes (2) Acute on chronic systolic congestive heart failure, NYHA class 3 Diagnosis Current: Yes (3) Acute encephalopathy Diagnosis Current: Yes (4) Hypertension Diagnosis Current: Yes (5) Morbid obesity with BMI of 45.0-49.9, adult Diagnosis Current: Yes (6) Type 2 diabetes mellitus Diagnosis Current: Yes (7) Atrial fibrillation Diagnosis Current: Yes Attendance: Patient Leigh Paula NP Registered Nurse Resuscitation Status: Full Code Discussion: The reports that the patient is noncompliant with his home BiPAP. Additionally, he stopped seeing his coatings inspector because he thought they were "too hard on him." I explained to the patient and that, in his current state of health, if the patient continues to remain noncompliant, he will likely pass away in the next 5 years (more likely within 2 years). Patient and state understanding. They both state that they want the patient to remain a full code. Time Spent: 20 minutes
[2018-07-20 06:21] LABS: ANION GAP 5 (5-19)
[2018-07-20 06:28] LABS: CARBON DIOXIDE 49 mmol/L (22-30)
[2018-07-20] MEDS: FLUTICASONE/VILANTEROL 200-25 MCG/DOSE IH SCH (10:49)
[2018-07-20] MEDS: SALMETEROL XINAFOATE DISKUS 50 MCG/1 DOSE 28 DOSE IH SCH ×2 (10:49→21:19)
[2018-07-20] MEDS: MAGNESIUM OXIDE 400 MG TABLET PO SCH (10:50)
[2018-07-20] MEDS: METOPROLOL TARTRATE 25 MG TABLET PO SCH ×2 (10:50→21:19)
[2018-07-20] MEDS: PREDNISONE 20 MG TABLET PO SCH ×2 (10:50→18:21)
[2018-07-20] MEDS: APIXABAN 5 MG TABLET PO SCH ×2 (10:50→18:22)
[2018-07-20] MEDS: QUETIAPINE FUMARATE 25 MG TABLET PO SCH (10:50)
[2018-07-20] MEDS: FUROSEMIDE 40 MG TABLET PO SCH ×2 (10:50→18:21)
[2018-07-20] MEDS: DOCUSATE SODIUM 100 MG CAPSULE PO SCH ×2 (10:50→18:15)
[2018-07-20] MEDS: DIGOXIN 0.125 MG TABLET PO SCH (10:51)
[2018-07-20] MEDS: ASPIRIN 81 MG TABLET, ENT COATED PO SCH (10:51)
[2018-07-20] MEDS: PANTOPRAZOLE SODIUM 40 MG TABLET.DR PO SCH (10:51)
[2018-07-20] MEDS: INSULIN LISPRO 100 UNIT/ML 3 ML VIAL SUBCUT SCH ×4 (10:51→21:19)
[2018-07-20] MEDS: DIVALPROEX SODIUM 125 MG CAP.SPRINK PO SCH (10:52)
--- NOTE | 2018-07-20 10:55 | PSYCHOLOGICAL NOTE ---
Psych Note - Psych Note Psych Note: Medication recommendations per [facility]'s contracted psychiatrist Dr Page HER are as follows: DISCONTINUE Zyprexa 10mg @ 1900 DISCONTINUE Haldol 5mg Q2HP PRN ( These medications is likely why patients Glucose is high) START Buspar 5mg twice a day CONTINUE all other medications Attending physicians are asked to consider to AVOID prescribing benzodiazepines (e.g. Ativan, Xanex, Valium, Klonopin), Antipsychotics (e.g. Haldol, Zyprexa, Geodon,Seroquel), Sleep aids (e.g. Ambien, Lunesta, Sonata), narcotic pain medication, and high dose steroids (prednisone) as these have been known to cause and/or increase symptoms of aggression , psychosis and/ or paranoia in patients with neurodengenerative processes, such as dementia, Alzheimer's Disease and Traumatic Brain Injury, ect
[2018-07-20] MEDS: TIOTROPIUM BROMIDE DPI 5 CAP/KIT (18 MCG/CAP) IH SCH (11:02)
[2018-07-20] MEDS: DIVALPROEX SODIUM 250 MG TABLET.DR PO SCH (18:21)
--- NOTE | 2018-07-20 18:22 | PDOC PROGRESS REPORT ---
Subjective Progress Note for:: 07/20/18 Subjective:: 68 y.o. M with a PMH of CHF, HTN, HLD, diabetes type 2, history of lymphoma, morbid obesity, COPD. He came to [facility] from [facility] for increased somnolence. Of note, the patient was recently discharged from [facility] for ARDS and respiratory failure. This year, the patient has had multiple recurrences of respiratory failure requiring intubation and mechanical ventilation. He has been admitted to [facility] ICU 3 times in 2019. The patient was seen on afternoon rounds with his present. He was found resting in bed comfortably on BiPAP support. He was sleeping when I entered the room but woke easily when I said his name. He was noted to be quite fatigued and fell back to sleep during our conversation; does appear to be oriented to self and place but otherwise confused. Patient's reports that he has had intermittent confusion today although was much more oriented this morning. She does confirm sundowning at home resulting in poor compliance with CPAP. She acknowledges long-standing history of COPD but is frustrated with the frequency of exacerbations this year. She does confirm that the patient is full code and she would desire for him to be intubated again if necessary. She reports that they have not yet followed up with pulmonology; stating that they have not had time in between admissions to appropriately do so. Patient has no questions or concerns at this time; all questions answered to the satisfaction. No concerns per nursing. Reason For Visit: ACUTE ON CHRONIC HYPOXEMIC RESPIRATORY FAILURE Physical Exam Vital Signs: Temp Pulse Resp BP Pulse Ox 97.6 F 56 L 17 132/39 H 94 07/20/18 15:20 07/20/18 15:20 07/20/18 15:20 07/20/18 15:20 07/20/18 15:20 Intake & Output 07/19/18 07/20/18 07/21/18 06:59 06:59 06:59 Intake Total 400 963 Balance 400 963 Weight 102.2 kg 100.2 kg General appearance: PRESENT: no acute distress, hard of hearing, obese, well-de veloped, well-nourished Head exam: PRESENT: atraumatic, normocephalic Eye exam: PRESENT: conjunctiva pink, EOMI, PERRLA. ABSENT: scleral icterus Mouth exam: PRESENT: moist, tongue midline Neck exam: ABSENT: carotid bruit, JVD, lymphadenopathy, thyromegaly Respiratory exam: PRESENT: prolonged expiratory phas, symmetrical, unlabored, other - currently on BiPAP. ABSENT: rales, rhonchi, wheezes Cardiovascular exam: PRESENT: bradycardia, irregular rhythm, +S1, +S2. ABSENT: diastolic murmur, rubs, systolic murmur Pulses: PRESENT: normal dorsalis pedis pul Vascular exam: PRESENT: normal capillary refill GI/Abdominal exam: PRESENT: normal bowel sounds, soft. ABSENT: distended, guarding, mass, organolmegaly, rebound, tenderness Rectal exam: PRESENT: deferred Extremities exam: PRESENT: full ROM. ABSENT: calf tenderness, clubbing, pedal edema Musculoskeletal exam: PRESENT: ambulatory - w/ 1 person assist and walker Neurological exam: PRESENT: alert, awake, oriented to person, oriented to place, CN II-XII grossly intact, other - Fatigued; confused/forgetful. ABSENT: oriented to time, oriented to situation, motor sensory deficit Psychiatric exam: PRESENT: appropriate affect, normal mood. ABSENT: homicidal ideation, suicidal ideation Skin exam: PRESENT: dry, intact, warm. ABSENT: cyanosis, rash Results Laboratory Results: 07/20/18 05:00 07/20/18 05:00 07/20/18 07/20/18 07/20/18 04:30 05:00 05:00 WBC 11.4 H RBC 3.49 L Hgb 10.0 L Hct 31.1 L MCV 89 MCH 28.7 MCHC 32.2 RDW 14.8 H Plt Count 220 Carbonic Acid 2.29 H HCO3/H2CO3 Ratio 21:1 ABG pH 7.43 ABG pCO2 76.2 H* ABG pO2 79.8 L ABG HCO3 49.9 H ABG O2 Saturation 95.5 ABG Base Excess 21.8 FiO2 4L Sodium 138.8 Potassium 4.8 Chloride 85 L Carbon Dioxide 49 H* Anion Gap 5 BUN 70 H Creatinine 0.87 Est GFR ( Amer) > 60 Est GFR (Non-Af Amer) > 60 Glucose 146 H Calcium 8.6 Phosphorus 4.1 Magnesium 2.4 H Total Bilirubin 0.6 AST 16 L ALT 28 Alkaline Phosphatase 98 Total Protein 5.9 L Albumin 3.3 L 07/09/18 15:28 Troponin I 0.019 NT-Pro-B Natriuret Pep 9160 H Impressions: Chest X-Ray 07/10/18 10:45 IMPRESSION: Borderline cardiomegaly. Persistent prominence of right hilum. Follow-up with standard PA and lateral view would be helpful. Chest CT 07/11/18 00:00 IMPRESSION: Markedly improved pneumonia. No evidence of hilar mass. Assessment and Plan - Diagnosis (1) Acute and chronic respiratory failure Qualifiers: Respiratory failure complication: hypoxia and hypercapnia Qualified Code(s): J96.21 - Acute and chronic respiratory failure with hypoxia; J96.22 - Acute and chronic respiratory failure with hypercapnia Is this a current diagnosis for this admission?: Yes Plan: Recurrent admissions for the same diagnosis, oftentimes requiring intubation Initial ABG shows hypercarbic and hypoxic respiratory acidosis Initially required continuous BiPAP; has been weaned to nasal cannula while awake and BIPAP QHS Acidosis has resolved but patient remains hypercapinc, an expected finding in someone with COPD. Will continue PRN nebulizer treatments Scheduled Spiriva and Breo PO prednisone - weaned today from 20mg TID to 20mg BID yesterday BiPAP nightly Patient has not yet established with outpatient internal security manager; will consult Dr. Frazier for recommendations regarding chronic hypercapnia. Will consult Palliative Care to review goals of care. Patient's confirms FULL CODE status. (2) Acute encephalopathy Is this a current diagnosis for this admission?: Yes Plan: Multifactorial; metabolic/toxic: hypercapnia, acute illness, hospital psychosis, dementia w/ delerium, drug-induced (Neurontin, Keppra, steroid therapy) Staff reports pattern of behavior that is similar to Mental Health services were consulted. Keppra on hold Avoid benzodiazepines Low dose PRN haldol for agitation Decreased Neurontin dose from 300mg QID to 100mg QID BID Depakote - initiated by staff at [place] for agitation in a patient with dementia [facility] Héctor Requested PSYCH evaluation for medication recommendations for . PSYCH recommends BID Buspar. Patient became very lethargic on this medication, sleeping all day and night. This medication is currently on hold. (3) Acute on chronic systolic congestive heart failure, NYHA class 3 Is this a current diagnosis for this admission?: Yes Plan: PMH congestive heart failure; Wt down ~21 kg Bilateral +1 pitting edema Cardiac diet and daily weights. PO lasix Continue beta raine and digoxin (4) Hypertension Qualifiers: Hypertension type: essential hypertension Qualified Code(s): I10 - Essential (primary) hypertension Is this a current diagnosis for this admission?: Yes Plan: PMH HTN Well-controlled Continue lasix and metoprolol (5) Type 2 diabetes mellitus Is this a current diagnosis for this admission?: Yes Plan: PMH diabetes type 2 Humalog sliding scale insulin Accu-Cheks AC at bedtime Difficulty managing with 70/30, discontinued and initiated Lantus nightly; improved glucose control Blood glucose is elevated above baseline due to PO steroids Hypoglycemia protocol in place (6) Atrial fibrillation Qualifiers: Atrial fibrillation type: chronic Qualified Code(s): I48.2 - Chronic atrial fibrillation Is this a current diagnosis for this admission?: No Plan: H atrial fibrillation Currently sinus bradycardia (45-55 bpm) Continue home dose digoxin and metoprolol for rate control. Continue home dose Eliquis (7) PATEL (obstructive sleep apnea) Is this a current diagnosis for this admission?: Yes Plan: Pt utilizes CPAP at home. Currently on BiPAP. Pulmonology has been consulted; suspect patient will continue to require BiPAP at discharge. (8) Obesity (BMI 30.0-34.9) Is this a current diagnosis for this admission?: Yes Plan: BMI 31.7 Dietary discretion has been advised. Patient educator and tube sizer and cutter operator are consulted. - Time Time Spent with patient: 25-34 minutes Medications reviewed and adjusted accordingly: Yes Anticipated discharge: Home with Homehealth Within: within 72 hours
[2018-07-20] MEDS: INSULIN GLARGINE,HUM.REC.ANLOG 1,000 UNIT/10 ML VIAL SUBCUT SCH (21:19)
[2018-07-21 05:24] LABS: BLOOD UREA NITROGEN 61 mg/dL (7-20); CALCIUM 9.2 mg/dL (8.4-10.2); CHLORIDE 84 mmol/L (98-107); GLUCOSE 223 mg/dL (75-110); POTASSIUM 4.5 mmol/L (3.6-5.0); SODIUM 138.2 mmol/L (137-145)
[2018-07-21] MEDS: GABAPENTIN 100 MG CAPSULE PO SCH ×4 (05:30→23:43)
[2018-07-21 05:35] LABS: ANION GAP 8 (5-19)
[2018-07-21 05:36] LABS: CARBON DIOXIDE 46 mmol/L (22-30)
[2018-07-21] MEDS: DIVALPROEX SODIUM 125 MG CAP.SPRINK PO SCH (08:06)
[2018-07-21] MEDS: INSULIN LISPRO 100 UNIT/ML 3 ML VIAL SUBCUT SCH ×4 (08:06→22:11)
[2018-07-21 09:21] LABS: HEMATOCRIT 34.2 % (37.9-51.0); HEMOGLOBIN 11.1 g/dL (13.5-17.0); MEAN CORPUSCULAR HEMOGLOBIN 28.8 pg (27.0-33.4); MEAN CORPUSCULAR HGB CONC 32.5 g/dL (32.0-36.0); MEAN CORPUSCULAR VOLUME 89 fl (80-97); PLATELET COUNT 247 10^3/uL (150-450); RED BLOOD COUNT 3.85 10^6/uL (4.35-5.55); RED CELL DISTRIBUTION WIDTH 14.6 % (11.5-14.0); WHITE BLOOD COUNT 15.7 10^3/uL (4.0-10.5)
[2018-07-21 09:40] LABS: ABSOLUTE LYMPHOCYTES# (MANUAL) 0.3 10^3/uL (0.5-4.7); ABSOLUTE MONOCYTES # (MANUAL) 0.5 10^3/uL (0.1-1.4); ABSOLUTE NEUTROPHILS# (MANUAL) 14.9 10^3/uL (1.7-8.2); BASOPHILS % (MANUAL) 0 % (0-2); EOSINOPHILS % (MANUAL) 0 % (0-6); LYMPHOCYTES % (MANUAL) 2 % (13-45); MONOCYTES % (MANUAL) 3 % (3-13); SEGMENTED NEUTROPHILS % (MAN) 95 % (42-78); TOTAL CELLS COUNTED 100
[2018-07-21 09:41] LABS: ANISOCYTOSIS SLIGHT; PLATELET COMMENT ADEQUATE; TOXIC GRANULATION SLIGHT; TOXIC VACUOLATION PRESENT
--- NOTE | 2018-07-21 09:41 | CONSULTATION REPORT E ---
Consultation Report NAME: THEODORE SON : 1950 AGE: 68Y DATE: 07/20/2018 317 A TO: JOANNA GAMINO M.D. FROM: COLETTE EVERETT M.D. Requesting Physician HISTORY OF PRESENT ILLNESS: The patient is a 68-year-old male who was admitted to [facility] multiple times in the past, and in the ICU 3 times in 2019, with a past medical history of congestive heart failure, hypertension, hyperlipidemia, diabetes mellitus type 2, lymphoma, morbid obesity, COPD, and pneumonia right lung in June 2018. The patient came from [facility] this time for infection and increased somnolence. Was recently discharged from [facility] for ARDS and respiratory failure. Currently, the patient is feeling better. He denies any increased cough or purulent sputum production. No fever and chills in the last 24 hours. No hemoptysis. No chest pain. No increased shortness of breath. PAST MEDICAL HISTORY: 1. Congestive heart failure. 2. Hyperlipidemia. 3. Hypertension. 4. COPD. 5. Diabetes mellitus type 2. 6. Arthritis. PAST SURGICAL HISTORY: removal of spinal tumor. SOCIAL HISTORY: Lives with spouse. Former smoker. Denies any alcohol abuse or illicit drug use. FAMILY HISTORY: CAD, COPD, diabetes, hypertension. MEDICATIONS: In hospital include: 1. Tylenol. 2. ProAir inhaler. 3. Albuterol nebulizer. 4. DuoNeb nebulizer. 5. Eliquis 5 mg b.i.d. 6. Aspirin 81 mg. 7. BuSpar 30 mg every 12 hours. 8. Lanoxin 0.125. 9. Depakote 500 mg q.p.m. 10. Colace 100 mg b.i.d. 11. BREO 200 mcg inhaler 1 puff once daily. 12. Lasix 40 mg b.i.d. 14. Haldol 2 mg IV q.4 hours p.r.n. 15. Insulin. 16. Magnesium oxide. 17. Metoprolol. 18. Protonix. 19. Prednisone 20 mg b.i.d. 20. Seroquel. 22. Spiriva. ALLERGIES: No known drug allergies. REVIEW OF SYSTEMS: CONSTITUTIONAL: No fever over the last 3 to 4 hours. Altered mental status,. No headache. No blurry vision. RESPIRATORY: Denies any increasing cough or hemoptysis or purulent sputum production. CARDIOVASCULAR: No palpitations. No angina. No recent heartburn. No chest pain. GASTROINTESTINAL: No nausea, vomiting, diarrhea. GENITOURINARY: No dysuria, hematuria, passage of stones. EXTREMITIES: No joint swelling or cellulitis. PHYSICAL EXAMINATION: GENERAL: The patient appeared to be awake, alert, appeared to be coherent, not in apparent respiratory distress. VITAL SIGNS: Temperature was 98.8, with a T-max of 98.8. The pulse rate is 80 beats per minute. Blood pressure is 159/62, respiratory rate 22, saturation 91% on nasal cannula at 4 L. EYES: No jaundice or pallor. EARS, NOSE, AND THROAT: No ear drainage. No nasal discharge. CHEST AND LUNGS: No wheezing. No rhonchi. No coarse crackles. CARDIOVASCULAR: S1, S2 distinct. No murmur. Regular rate and rhythm. ABDOMEN: Flabby. Positive bowel sounds. Soft, nondistended. EXTREMITIES: No joint swelling or cellulitis. LABORATORY: CBC done today shows a white count of 11.4, down from 16.4 three days ago. The hemoglobin is 10, hematocrit is 31. 20. 120. chemistry. ABG done today showed pH of 7.43, PCO2 of 76.2, PO2 is 89.8, and bicarb is 49.9, and ABG oxygen saturation is 25.5. Chemistries done today showed sodium is 138, potassium is 4.8, chloride 85, CO2 is 49, BUN is 70, creatinine 0.87, glucose is 146, calcium is 8.6, phosphorus is 4.1, and magnesium is 2.4. SGOT 16 and SGPT is 28, alkaline phosphatase 28. Albumin is 3.3. ASSESSMENT: 1. [id number] respiratory failure. Currently, hypercapnic and currently compensated and appears to be stable on oxygen therapy. 2. Pneumonia right lung, appears to be improving. There is some remaining infiltrate in the right lower lobe based on the results of the CT scan on 07/13/2018. 3. Morbid obesity with obesity hypoventilation syndrome. Recommend BiPAP therapy, especially during sleep and titrate oxygen to keep saturation 91 to 94%. May consider BiPAP during the daytime if he is sleeping or he gets more short of breath. 4. History of COPD, currently stable and not in acute exacerbation. Recommend to continue salmeterol 50 mcg 1 puff q. 12 hours, continue Spiriva inhaler 1 capsule daily, continue BREO 200 mcg once daily. Continue nebulizer treatment every 6 hours as needed. 5. Decrease prednisone dose to 20 mg once a day and slowly taper. Nebulizer treatment every 4 hours as needed for severe bronchospasm or shortness of breath. DICTATING PHYSICIAN: JOANNA GAMINO MD,VERONIKA,MPH [id number] PHY#: [id number] ID: [id number] JOB#: [id number] ACCT: [id number] cc:JOANNA GAMINO M.D. > MTDD
[2018-07-21] MEDS ORDERED: PREDNISONE 20 MG TABLET PO SCH (10:00)
[2018-07-21] MEDS: FUROSEMIDE 40 MG TABLET PO SCH ×2 (10:52→17:35)
[2018-07-21] MEDS: MAGNESIUM OXIDE 400 MG TABLET PO SCH (10:52)
[2018-07-21] MEDS: FLUTICASONE/VILANTEROL 200-25 MCG/DOSE IH SCH (10:52)
[2018-07-21] MEDS: METOPROLOL TARTRATE 25 MG TABLET PO SCH ×3 (10:52→22:15)
[2018-07-21] MEDS: PANTOPRAZOLE SODIUM 40 MG TABLET.DR PO SCH (10:52)
[2018-07-21] MEDS: ASPIRIN 81 MG TABLET, ENT COATED PO SCH (10:53)
[2018-07-21] MEDS: APIXABAN 5 MG TABLET PO SCH ×2 (10:53→17:35)
[2018-07-21] MEDS: QUETIAPINE FUMARATE 25 MG TABLET PO SCH (10:53)
[2018-07-21] MEDS: DOCUSATE SODIUM 100 MG CAPSULE PO SCH ×2 (10:53→17:36)
[2018-07-21] MEDS: TIOTROPIUM BROMIDE DPI 5 CAP/KIT (18 MCG/CAP) IH SCH (10:55)
[2018-07-21] MEDS: DIGOXIN 0.125 MG TABLET PO SCH (10:55)
[2018-07-21 12:34] LABS: ALANINE AMINOTRANSFERASE 31 U/L (21-72); ALBUMIN 3.3 g/dL (3.5-5.0); ALKALINE PHOSPHATASE 117 U/L (38-126); ASPARTATE AMINO TRANSFERASE 12 U/L (17-59); BILIRUBIN,DIRECT 0.3 mg/dL (0.0-0.4); BILIRUBIN,TOTAL 0.5 mg/dL (0.2-1.3); TOTAL PROTEIN 5.7 g/dL (6.3-8.2)
[2018-07-21] MEDS: DIVALPROEX SODIUM 250 MG TABLET.DR PO SCH (17:35)
--- NOTE | 2018-07-21 18:31 | ADVANCED CARE ---
- Diagnosis (1) Acute and chronic respiratory failure Diagnosis Current: Yes (2) Acute encephalopathy Diagnosis Current: Yes (3) Acute on chronic systolic congestive heart failure, NYHA class 3 Diagnosis Current: Yes (4) Hypertension Diagnosis Current: Yes (5) Type 2 diabetes mellitus Diagnosis Current: Yes (6) Atrial fibrillation Diagnosis Current: Yes (7) PATEL (obstructive sleep apnea) Diagnosis Current: Yes (8) Obesity (BMI 30.0-34.9) Diagnosis Current: Yes Attendance: Patient, , myself Resuscitation Status: Full Code Discussion: The patient is technically alert, oriented to self, year, and situation but believed himself to be at home. He is also noted to be quite lethargic and fell back to sleep multiple times during our conversation. Discussion was primarily held with the patient's (surrogate decision- maker). We reviewed the patient's chronic respiratory failure and frequent admissions due to exacerbations. We also discussed the patient's advancing dementia and sundowning which was prohibitive for BiPAP compliance at night as the patient frequently becomes agitated, removes BiPAP mask, and refuses to place it back on upon falling back to sleep. We specifically discussed that the patient's chronic respiratory failure and hypercapnia further worsening mental status. We discussed that high CO2 leads to confusion/fatigue; thus further exacerbating the patient's baseline mental/cognitive functions. Patient's acknowledged his frequent admissions, chronic respiratory failure, and likely life limiting role of COPD, CHF. She stated "I know that he keeps coming back to the hospital to fix him but that it does not last. I know that there is not much more that you can do and that this will probably kill him. But I want you to do everything you can to stop that from happening." We discussed the role of palliative care and hospice services for patients in similar situations to her . I presented the MOST form to her for review. At this time, the patient's is agreeable to meeting with palliative care representatives but declined to complete the MOST form with me. She does state that she will review the form with her sons sometime in the near future (however indicates that this likely will occur following discharge home). At this time, patient remains a FULL CODE with requests for aggressive me asures/interventions as necessary; including CPR, intubation, pressor support, tracheostomy placement (patient has previously had tracheostomy), and artificial means of nutrition. Care Planning Goals: Palliative care referral for continued care/review of Goals of Care Time Spent: 40 min
--- NOTE | 2018-07-21 20:25 | PDOC PROGRESS REPORT ---
Subjective Progress Note for:: 07/21/18 Subjective:: 68 y.o. M with a PMH of CHF, HTN, HLD, diabetes type 2, history of lymphoma, morbid obesity, COPD. He came to [facility] from [facility] for increased somnolence. Of note, the patient was recently discharged from [facility] for ARDS and respiratory failure. This year, the patient has had multiple recurrences of respiratory failure requiring intubation and mechanical ventilation. He has been admitted to [facility] ICU 3 times in 2019. The patient was seen on afternoon rounds with his present. He is alert and orientated to self and year, but reports that we are in his home. He is conversational and socially appropriate, but drifts in and out of sleep. He does deny fever, chills, chest pain, palpitations, dyspnea, orthopnea, and cough. Overall, he reports that he is feeling well. Long discussion regarding Goals of Care had w/ patient's ; see separate ACP note. No new questions or concerns per patient or family. No concerns per nursing. Reason For Visit: ACUTE ON CHRONIC HYPOXEMIC RESPIRATORY FAILURE Physical Exam Vital Signs: Temp Pulse Resp BP Pulse Ox 97.5 F 77 13 147/94 H 93 07/21/18 07:28 07/21/18 14:00 07/21/18 07:28 07/21/18 07:28 07/21/18 09:59 Intake & Output 07/20/18 07/21/18 07/22/18 06:59 06:59 06:59 Intake Total 963 576 Balance 963 576 Weight 100.2 kg 100.4 kg General appearance: PRESENT: no acute distress, cooperative, obese, well- developed, well-nourished Head exam: PRESENT: atraumatic, normocephalic Eye exam: PRESENT: conjunctiva pink, EOMI, PERRLA. ABSENT: scleral icterus Ear exam: PRESENT: normal external ear exam Mouth exam: PRESENT: moist, tongue midline Neck exam: ABSENT: carotid bruit, JVD, lymphadenopathy, thyromegaly Respiratory exam: PRESENT: clear to auscultation [place], prolonged expiratory phas, symmetrical, unlabored, other - supplemental oxygen via NC. ABSENT: rales, rhonchi, wheezes Cardiovascular exam: PRESENT: irregular rhythm, +S1, +S2. ABSENT: diastolic murmur, rubs, systolic murmur Pulses: PRESENT: normal dorsalis pedis pul Vascular exam: PRESENT: normal capillary refill GI/Abdominal exam: PRESENT: normal bowel sounds, soft. ABSENT: distended, guarding, mass, organolmegaly, rebound, tenderness Rectal exam: PRESENT: deferred Extremities exam: PRESENT: full ROM. ABSENT: calf tenderness, clubbing, pedal edema Musculoskeletal exam: PRESENT: ambulatory - w/ 1 person assist and walker Neurological exam: PRESENT: alert, awake, oriented to person, oriented to place, oriented to situation, CN II-XII grossly intact, other - lethargic; falls asleep multiple times during conversation. Socially appropriate, intermittently confused. ABSENT: oriented to time, motor sensory deficit Psychiatric exam: PRESENT: appropriate affect, normal mood. ABSENT: homicidal ideation, suicidal ideation Skin exam: PRESENT: dry, intact, warm. ABSENT: cyanosis, rash Results Laboratory Results: 07/21/18 04:50 07/21/18 04:50 07/21/18 07/21/18 07/21/18 04:50 04:50 04:50 WBC 15.7 H RBC 3.85 L Hgb 11.1 L Hct 34.2 L MCV 89 MCH 28.8 MCHC 32.5 RDW 14.6 H Plt Count 247 Seg Neutrophils % Not Reportable Lymphocytes % Not Reportable Monocytes % Not Reportable Eosinophils % Not Reportable Basophils % Not Reportable Absolute Neutrophils Not Reportable Absolute Lymphocytes Not Reportable Absolute Monocytes Not Reportable Absolute Eosinophils Not Reportable Absolute Basophils Not Reportable Sodium 138.2 Potassium 4.5 Chloride 84 L Carbon Dioxide 46 H* Anion Gap 8 BUN 61 H Creatinine 0.93 Est GFR ( Amer) > 60 Est GFR (Non-Af Amer) > 60 Glucose 223 H Calcium 9.2 Total Bilirubin 0.5 AST 12 L ALT 31 Alkaline Phosphatase 117 Total Protein 5.7 L Albumin 3.3 L 07/09/18 15:28 Troponin I 0.019 NT-Pro-B Natriuret Pep 9160 H Impressions: Chest X-Ray 07/10/18 10:45 IMPRESSION: Borderline cardiomegaly. Persistent prominence of right hilum. Follow-up with standard PA and lateral view would be helpful. Chest CT 07/11/18 00:00 IMPRESSION: Markedly improved pneumonia. No evidence of hilar mass. Assessment and Plan - Diagnosis (1) Acute and chronic respiratory failure Qualifiers: Respiratory failure complication: hypoxia and hypercapnia Qualified Code(s): J96.21 - Acute and chronic respiratory failure with hypoxia; J96.22 - Acute and chronic respiratory failure with hypercapnia Is this a current diagnosis for this admission?: Yes Plan: Recurrent admissions for the same diagnosis, oftentimes requiring intubation Initial ABG shows hypercarbic and hypoxic respiratory acidosis Initially required continuous BiPAP; has been weaned to nasal cannula while awake and BIPAP QHS Acidosis has resolved but patient remains hypercapinc, an expected finding in someone with COPD. Will continue PRN nebulizer treatments Scheduled Spiriva and Breo PO prednisone - slow wean recommended by Pulmonology. BiPAP nightly Have consulted Dr. Frazier for recommendations regarding chronic hypercapnia; appreciate his assistance. Will consult Palliative Care to review goals of care. Patient's confirms FULL CODE status. (2) Acute encephalopathy Is this a current diagnosis for this admission?: Yes Plan: Improved; likely approaching baseline. Multifactorial; metabolic/toxic: hypercapnia, acute illness, hospital psychosis, dementia w/ delerium, drug-induced (Neurontin, Keppra, steroid therapy) Staff reports pattern of behavior that is similar to sundowning Mental Health services were consulted. Keppra discontinued Avoid benzodiazepines Low dose PRN haldol for agitation Decreased Neurontin dose from 300mg QID to 100mg QID BID Depakote - initiated by staff at [place] for agitation in a patient with dementia QHS Seruqel Requested PSYCH evaluation for medication recommendations for sundowning. PSYCH recommends BID Buspar. Patient became very lethargic on this medication, sleeping all day and night. This medication is currently on hold. (3) Acute on chronic systolic congestive heart failure, NYHA class 3 Is this a current diagnosis for this admission?: Yes Plan: PMH congestive heart failure; Wt down ~21 kg Bilateral +1 pitting edema Cardiac diet and daily weights. PO lasix Continue beta raine and digoxin (4) Hypertension Qualifiers: Hypertension type: essential hypertension Qualified Code(s): I10 - Essential (primary) hypertension Is this a current diagnosis for this admission?: Yes Plan: PMH HTN Well-controlled Continue lasix and metoprolol (5) Type 2 diabetes mellitus Is this a current diagnosis for this admission?: Yes Plan: PMH diabetes type 2 Humalog sliding scale insulin Accu-Cheks AC at bedtime Difficulty managing with 70/30, discontinued and initiated Lantus nightly; impr argenis glucose control Blood glucose is elevated above baseline due to PO steroids and dietary noncomp liance (nursing reports that family members have been bringing in snacks for patient) Hypoglycemia protocol in place (6) Atrial fibrillation Qualifiers: Atrial fibrillation type: chronic Qualified Code(s): I48.2 - Chronic atrial fibrillation Is this a current diagnosis for this admission?: No Plan: H atrial fibrillation Currently rate controlled. Continue home dose digoxin and metoprolol for rate control. Continue home dose Eliquis (7) PATEL (obstructive sleep apnea) Is this a current diagnosis for this admission?: Yes Plan: Pt utilizes CPAP at home. Currently on BiPAP. Pulmonology has been consulted; recommends patient continue BiPAP at discharge. Patient's reports they already have BiPAP equipment; will ask d/c planning to verify w/ oxygen company. (8) Obesity (BMI 30.0-34.9) Is this a current diagnosis for this admission?: Yes Plan: BMI 31.7 Dietary discretion has been advised. Patient educator and billboard erector are consulted. - Time Time Spent with patient: 25-34 minutes Medications reviewed and adjusted accordingly: Yes Anticipated discharge: Home Within: within 24 hours
--- NOTE | 2018-07-21 21:50 | PROGRESS NOTE E ---
Progress Note NAME: THEODORE SON : 1950 AGE: 68Y DATE: 07/21/2018 ROOM: 317 SUBJECTIVE: The patient is a 68-year-old male who came in with pneumonia, congestive heart failure, hypertension, hyperlipidemia, diabetes type, history of lymphoma, morbid obesity, and COPD. Currently the patient is feeling better. Denies any vomiting. said the patient has increased cough, but no purulent sputum production, no hemoptysis. No fever or chills. No nausea or vomiting. Has diarrhea for the last 2 days. claimed the patient is going home tomorrow. OBJECTIVE: GENERAL: The patient is awake, alert, coherent, oriented x3. VITAL SIGNS: Temperature of 98.3 with a T-max of 99 degrees Fahrenheit. The blood pressure is 117/55, heart rate of 75, respiratory rate is 18, saturation 88-90% on nasal cannula 2 liters. EYES: No jaundice or pallor. EARS, NOSE, AND THROAT: No ear drainage. No nasal discharge. CHEST AND LUNGS: No wheezing, no rhonchi, no coarse crackles. CARDIOVASCULAR: S1, S2 distinct. Normal rate and regular rhythm. ABDOMEN: Flabby, positive bowel sounds, soft, nondistended, nontender. EXTREMITIES: No joint swelling, no cellulitis. LABORATORY DATA: CBC done today shows a white cell 15.7, hemoglobin is 11.1, hematocrit is 34.2, platelet count is 247. Chemistry done today showed sodium 138, potassium 4.5, chloride is 84, CO2 is 46, BUN is 61, creatinine is 0.93, glucose is 253, and calcium is 9.2. ASSESSMENT: 1. PNEUMONIA, APPEARED TO BE CLINICALLY IMPROVING. PREVIOUS SPUTUM CULTURE SHOWED STAPHYLOCOCCUS AUREUS. 2. COPD, CURRENTLY STABLE AND NOT IN ACUTE EXACERBATION, NOT IN ACUTE BRONCHOSPASM. 3. ACUTE ON CHRONIC RESPIRATORY FAILURE CURRENTLY STABLE AND CURRENTLY COMPENSATED. 4. MORBID OBESITY WITH OBESITY HYPOVENTILATION SYNDROME. PLAN: 1. Recommend BiPAP therapy the same settings. 2. Recommend pulmonary clinic and sleep medicine follow up 2 to 3 weeks after hospital discharge. 3. Continue BREO 200 mcg once daily and Spiriva inhaler 1 capsule daily. 4. Decrease prednisone dose to 10 mg tablet p.o. daily tomorrow and slow taper thereafter. DICTATING PHYSICIAN: JOANNA GAMINO MD,VERONIKA,MPH [id number] PHY#: [id number] 2018 ID: [id number] JOB#: [id number] ACCT: [id number] cc: > MTDD
[2018-07-21] MEDS: INSULIN GLARGINE,HUM.REC.ANLOG 1,000 UNIT/10 ML VIAL SUBCUT SCH (22:08)
[2018-07-22 05:10] LABS: HEMATOCRIT 32.9 % (37.9-51.0); HEMOGLOBIN 10.8 g/dL (13.5-17.0); MEAN CORPUSCULAR HEMOGLOBIN 28.7 pg (27.0-33.4); MEAN CORPUSCULAR HGB CONC 32.7 g/dL (32.0-36.0); MEAN CORPUSCULAR VOLUME 88 fl (80-97); PLATELET COUNT 230 10^3/uL (150-450); RED BLOOD COUNT 3.75 10^6/uL (4.35-5.55); RED CELL DISTRIBUTION WIDTH 14.4 % (11.5-14.0); WHITE BLOOD COUNT 15.1 10^3/uL (4.0-10.5)
[2018-07-22 05:27] LABS: BLOOD UREA NITROGEN 55 mg/dL (7-20); CALCIUM 8.5 mg/dL (8.4-10.2); CHLORIDE 87 mmol/L (98-107); GLUCOSE 74 mg/dL (75-110); POTASSIUM 3.9 mmol/L (3.6-5.0); SODIUM 140.1 mmol/L (137-145)
[2018-07-22] MEDS: GABAPENTIN 100 MG CAPSULE PO SCH ×2 (05:51→15:04)
[2018-07-22 06:18] LABS: ANION GAP 8 (5-19); CARBON DIOXIDE 45 mmol/L (22-30)
[2018-07-22] MEDS: INSULIN LISPRO 100 UNIT/ML 3 ML VIAL SUBCUT SCH ×2 (08:46→15:03)
[2018-07-22] MEDS: ASPIRIN 81 MG TABLET, ENT COATED PO SCH (09:36)
[2018-07-22] MEDS: DIVALPROEX SODIUM 125 MG CAP.SPRINK PO SCH (09:36)
[2018-07-22] MEDS: PANTOPRAZOLE SODIUM 40 MG TABLET.DR PO SCH (09:36)
[2018-07-22] MEDS: QUETIAPINE FUMARATE 25 MG TABLET PO SCH (09:37)
[2018-07-22] MEDS: APIXABAN 5 MG TABLET PO SCH (09:37)
[2018-07-22] MEDS: MAGNESIUM OXIDE 400 MG TABLET PO SCH (09:37)
[2018-07-22] MEDS: DIGOXIN 0.125 MG TABLET PO SCH (09:37)
[2018-07-22] MEDS: METOPROLOL TARTRATE 25 MG TABLET PO SCH (09:38)
[2018-07-22] MEDS: DOCUSATE SODIUM 100 MG CAPSULE PO SCH (09:39)
[2018-07-22] MEDS: FLUTICASONE/VILANTEROL 200-25 MCG/DOSE IH SCH (09:39)
[2018-07-22] MEDS: TIOTROPIUM BROMIDE DPI 5 CAP/KIT (18 MCG/CAP) IH SCH (09:39)
[2018-07-22] MEDS: FUROSEMIDE 40 MG TABLET PO SCH (09:39)
[2018-07-22] MEDS ORDERED: PREDNISONE 10 MG TABLET PO SCH (10:00)
[2018-07-22] MEDS ORDERED: PREDNISONE 20 MG TABLET PO SCH (10:00)
--- NOTE | 2018-07-22 12:55 | RADIOLOGY REPORT (SQ) ---
EXAM DESCRIPTION: CHEST SINGLE VIEW COMPLETED DATE/TIME: 07/22/2018 12:45 pm REASON FOR STUDY: hypoxia COMPARISON: 07/10/2018 EXAM PARAMETERS: NUMBER OF VIEWS: One view. TECHNIQUE: Single frontal radiographic view of the chest acquired. RADIATION DOSE: NA LIMITATIONS: None. FINDINGS: LUNGS AND PLEURA: No opacities, masses or pneumothorax. No pleural effusion. MEDIASTINUM AND HILAR STRUCTURES: No masses. Contour normal. HEART AND VASCULAR STRUCTURES: Heart normal in size. Normal vasculature. BONES: No acute findings. HARDWARE: Loop recorder. OTHER: No other significant finding. IMPRESSION: NO ACUTE RADIOGRAPHIC FINDING IN THE CHEST. TECHNICAL DOCUMENTATION: JOB ID: [id number] [employer]- All Rights Reserved Reading location - IP/workstation name: [email or web address]
[2018-07-22 13:41] LABS: ARTERIAL BLOOD BASE EXCESS 16.8 mmol/L; ARTERIAL BLOOD H2CO3 2.25 mmol/L (1.05-1.35); ARTERIAL BLOOD HCO3 44.8 mmol/L (20-24); ARTERIAL BLOOD O2 SATURATION 98.9 % (94-98); ARTERIAL BLOOD TOTAL CO2 47.1 mmol/L (23-27)
[2018-07-22 13:42] LABS: ARTERIAL BLOOD FIO2 80%
[2018-07-22 13:43] LABS: ARTERIAL BLOOD PCO2 74.9 mmHg (35-45)
[2018-07-22 15:45] LABS: ARTERIAL BLOOD BASE EXCESS 16.1 mmol/L; ARTERIAL BLOOD H2CO3 1.93 mmol/L (1.05-1.35); ARTERIAL BLOOD HCO3 42.9 mmol/L (20-24); ARTERIAL BLOOD O2 SATURATION 89.7 % (94-98); ARTERIAL BLOOD PCO2 64.1 mmHg (35-45); ARTERIAL BLOOD PH 7.44 (7.35-7.45); ARTERIAL BLOOD PO2 57.1 mmHg (80-100); ARTERIAL BLOOD TOTAL CO2 44.8 mmol/L (23-27)
[2018-07-22 15:49] LABS: ARTERIAL BLOOD FIO2 4L
[2018-07-22 17:09] VITALS: BP 105/44
--- NOTE | 2018-07-22 17:52 | PDOC DISCHARGE SUMMARY ---
<COLETTE EVERETT M - Last Filed: 07/24/18 11:42> General - Admit/Disc Date/PCP Admission Date/Primary Care Provider: 07/09/18 18:17 HILARIA ALFARO MD - Discharge Diagnosis (1) A/C hypoxemic and hypercarbic respirator Is this a current diagnosis for this admission?: Yes (2) Acute on chronic systolic congestive heart failure, NYHA class 3 Is this a current diagnosis for this admission?: Yes (3) Acute encephalopathy Is this a current diagnosis for this admission?: Yes (4) Type 2 diabetes mellitus Is this a current diagnosis for this admission?: Yes (5) Hypertension Is this a current diagnosis for this admission?: Yes (6) Hyperlipidemia Is this a current diagnosis for this admission?: Yes (7) Morbid obesity with BMI of 45.0-49.9, adult Is this a current diagnosis for this admission?: Yes (8) COPD (chronic obstructive pulmonary disease) Is this a current diagnosis for this admission?: Yes (9) History of lymphoma Is this a current diagnosis for this admission?: Yes - Additional Information Prescriptions: Buspirone HCl [Buspar 10 mg Tablet] 5 mg PO Q12HP PRN #60 tablet PRN Reason: Fluticasone/Vilanterol [Breo 200-25 Mcg Ellipta 14 Dose/Dpi] 1 inh IH DAILY #1 inhaler Furosemide [Lasix 40 mg Tablet] 40 mg PO BID #60 tablet Gabapentin [Neurontin 100 mg Capsule] 100 mg PO Q6 #120 capsule Insulin Degludec [Tresiba] 25 unit SQ QHS #3 vial Prednisone [Deltasone 10 mg Tablet] 10 mg PO ASDIR PRN #5 tablet PRN Reason: Quetiapine Fumarate [Seroquel 25 mg Tablet] 25 mg PO DAILY #30 tablet Tiotropium [place] [Spiriva Handihaler 5 Cap/Kit (18 Mcg/Cap)] 1 cap IH DAILY #1 kit Home Medications: Aspirin [Ecotrin 81 mg EC Tablet] 81 mg PO DAILY 06/21/18 Digoxin [Lanoxin 0.125 mg Tablet] 0.125 mg PO DAILY 06/21/18 Divalproex Sodium [Depakote] 125 mg PO QAM 06/21/18 Divalproex Sodium [Depakote] 250 mg PO QPM 06/21/18 Ipratropium/Albuterol Sulfate [Duoneb 3 ml Ampul] 3 ml NEB Q6 06/21/18 Magnesium Oxide [Mag-Ox 400 mg Tablet] 400 mg PO DAILY 06/21/18 Metoprolol Tartrate [Lopressor 25 mg Tablet] 25 mg PO Q12 06/21/18 Albuterol Sulfate [Proair HFA Inhalation Aerosol 8.5 gm MDI] 1 puff IH Q4HP PRN 07/09/18 Albuterol Sulfate [Ventolin 0.083% Neb 2.5 mg/3 mL Ampul] 1 vial NEB Q2HP PRN 07/09/18 Apixaban [Eliquis 5 mg Tablet] 5 mg PO BID 07/09/18 Pantoprazole Sodium [Protonix [address] Tablet] 40 mg PO DAILY 07/09/18 Acetaminophen [Tylenol 325 mg Tablet] 650 mg PO Q4HP PRN tablet 07/22/18 Buspirone HCl [Buspar 10 mg Tablet] 5 mg PO Q12HP PRN #60 tablet 07/22/18 Docusate Sodium [Colace 100 mg Capsule] 100 mg PO BID capsule 07/22/18 Fluticasone/Vilanterol [Breo 200-25 Mcg Ellipta 14 Dose/Dpi] 1 inh IH DAILY #1 inhaler 07/22/18 Furosemide [Lasix 40 mg Tablet] 40 mg PO BID #60 tablet 07/22/18 Gabapentin [Neurontin 100 mg Capsule] 100 mg PO Q6 #120 capsule 07/22/18 Insulin Degludec [Tresiba] 25 unit SQ QHS #3 vial 07/22/18 Prednisone [Deltasone 10 mg Tablet] 10 mg PO ASDIR PRN #5 tablet 07/22/18 Quetiapine Fumarate [Seroquel 25 mg Tablet] 25 mg PO DAILY #30 tablet 07/22/18 Tiotropium [place] [Spiriva Handihaler 5 Cap/Kit (18 Mcg/Cap)] 1 cap IH DAILY #1 kit 07/22/18 History of Present Illness History of Present Illness: THEODORE SON is a 68 year old male Physical Exam Vital Signs: Temp Pulse Resp BP Pulse Ox 98.5 F 74 20 105/44 L 93 07/22/18 15:21 07/22/18 15:21 07/22/18 15:21 07/22/18 15:21 07/22/18 15:55 Results Laboratory Results: 07/22/18 04:29 07/22/18 04:29 07/09/18 15:28 Troponin I 0.019 NT-Pro-B Natriuret Pep 9160 H Impressions: Chest CT 07/11/18 00:00 IMPRESSION: Markedly improved pneumonia. No evidence of hilar mass. Chest X-Ray 07/22/18 00:00 IMPRESSION: NO ACUTE RADIOGRAPHIC FINDING IN THE CHEST. <SALENA CARREON - Last Filed: 07/24/18 18:02> General - Admit/Disc Date/PCP Admission Date/Primary Care Provider: 07/09/18 18:17 HILARIA ALFARO MD Discharge Date: 07/22/18 - Discharge Diagnosis (1) Acute and chronic respiratory failure Is this a current diagnosis for this admission?: Yes Summary: Acute exacerbation has resolved; chronic respiratory failure with hypercapnia (baseline PCO2 mid 70s). Recurrent admissions for the same diagnosis, oftentimes requiring intubation Initially required continuous BiPAP; has been weaned to nasal cannula while awake and BIPAP QHS Acidosis has resolved but patient remains hypercapinc, an expected finding in someone with COPD. The patient was admitted to [facility] on continuous cardiac telemetry. He was provided supplemental oxygen via nasal cannula and BiPAP as needed to maintain saturations >88% and provided scheduled and as needed nebulizer treatments. As his respiratory status improved, his scheduled nebulizers were discontinued and he was started on scheduled Spiriva and Breo. He was initially provided IV Solu-Medrol; this has been transitioned to PO prednisone - slow wean recommended by Pulmonology. Have consulted Dr. Frazier for recommendations regarding chronic hypercapnia; appreciate his assistance. Dr. Frazier would like to see the patient for a follow-up appointment in 2 to 3 weeks. Considering the patient's chronic respiratory failure with hypercapnia and multiple readmissions for the same, palliative care consultation was obtained. Patient and have agreed to allow palliative care services to follow at home. On day of discharge, the patient was noted to desaturate into the low 80s; slow to respond to increased supplemental oxygen. He was placed on BiPAP with increased FiO2 and follow-up ABG demonstrating compensated respiratory acidosis with his baseline hypercapnia. The patient's home O2 dose was confirmed to be 4 L/min (patient had been managing on 2 L/min). He was placed back onto his home O2 requirement and monitored for an additional hour. Chest x-ray and laboratory evaluation were benign. Follow-up ABG showed improvement in oxygenation and overall stability in the patient's chronic respiratory failure. Discussed with the patient and ; requested to proceed with discharged home today. At time of discharge, the patient is in fair but stable condition. He is advised to follow-up with his primary care provider within 1 week, Dr. Frazier is recommended in 2 to 3 weeks, and to keep all appointments with the palliative care team to continue evaluations of goals of care. They are advised of the importance of compliance with BiPAP and oxygen recommendations. They are instructed to return to the emergency department as needed for concerning symptoms. (2) Acute encephalopathy Is this a current diagnosis for this admission?: Yes Summary: Resolved; at baseline. Multifactorial; metabolic/toxic: hypercapnia, acute illness, hospital psychosis, dementia w/ delerium, drug-induced (Neurontin, Keppra, steroid therapy) Staff reports pattern of behavior that is similar to [facility] Mental Health services were consulted. Keppra discontinued Decreased Neurontin dose from 300mg QID to 100mg QID Continue BID Depakote and Seroquel nightly. (3) Acute on chronic systolic congestive heart failure, NYHA class 3 Is this a current diagnosis for this admission?: Yes Summary: Echocardiogram from February 2017 demonstrated LVEF 55%. The patient's home dose Lasix, digoxin, and metoprolol were continued. The registered dietitian and patient educator were consulted to assist with educating on the importance of dietary compliance. (4) Hypertension Is this a current diagnosis for this admission?: Yes Summary: PMH HTN Well-controlled Continue lasix and metoprolol (5) Type 2 diabetes mellitus Is this a current diagnosis for this admission?: Yes Summary: Patient reports history of diabetes type 2. With difficulty managing glucose with his home dose 70/30 insulin. This was discontinued and Lantus nightly was initiated with improved glucose control. Despite education by nursing and the registered dietitian, the patient's family members continue to provide him meals and snacks not consistent with dietary recommendations resulting in hyperglycemia. Patient was discharged home on Tresiba 25 units subcu nightly. Recommend discussing dietary and insulin management at follow-up appointment wit h primary care provider. (6) Atrial fibrillation Is this a current diagnosis for this admission?: No Summary: PMH atrial fibrillation Currently rate controlled. Continue home dose digoxin and metoprolol for rate control. Continue home dose Eliquis (7) PATEL (obstructive sleep apnea) Is this a current diagnosis for this admission?: Yes Summary: Recommend continuing BiPAP at home; discharge planning is asked to verify with home oxygen company current BiPAP settings and ensure that the patient is on 14/8 with FiO2 35%. (8) Obesity (BMI 30.0-34.9) Is this a current diagnosis for this admission?: Yes Summary: ForBMI 31.7 Dietary discretion has been advised. Patient educator and diet technician registered were consulted. - Additional Information Resuscitation Status: Full Code Discharge Diet: Cardiac, Diabetic Discharge Activity: Activity As Tolerated, Balance Activity w/Rest History of Present Illness History of Present Illness: Per H&P by Dr. Hogan: THEODORE SON is a 68 year old male patient with multiple comorbidities including congestive heart failure, hypertension, hyperlipidemia, type 2 diabetes mellitus, history of lymphoma, morbid obesity, COPD brought from [facility] for evaluation due to increased somnolence. When I see the patient, he is obtunded and when I called his name he wakes up and quickly fall asleep. Of note the patient was discharged 4 days ago from [facility] in [place] for ARDS and respiratory failure. He was intubated at that time. Patient discharged from [place] to [facility] nursing facility. The last 4 days his mental status and symptoms have worsened. Family members are concerned by his situation. Brief history is obtained from the ER attending note, previous charts and medical record and from his who is in the room during my encounter. Of note patient has history of recurrent respiratory failure which requires intubation and mechanical ventilation. This year alone patient has been admitted 3 times to this hospital's ICU. There is no report of fever chills palpitation or diaphoresis. Further detailed history and review of systems unobtainable. I reviewed his labs and it shows BNP of 9160 and his ABG shows acidosis with pH of 7.25 PcO2 of 83.7 PO2 of 76. His chest x-ray shows cardiomegaly. Physical Exam Vital Signs: Temp Pulse Resp BP Pulse Ox 97.4 F 28 L 25 H 142/54 H 84 L 07/22/18 07:52 07/22/18 07:52 07/22/18 07:52 07/22/18 07:52 07/22/18 07:52 Intake & Output 07/21/18 07/22/18 07/23/18 06:59 06:59 06:59 Intake Total 576 1629 Balance 576 1629 Weight 100.4 kg 98.3 kg General appearance: PRESENT: no acute distress, cooperative, hard of hearing, obese, well-developed, well-nourished Head exam: PRESENT: atraumatic, normocephalic Eye exam: PRESENT: conjunctiva pink, EOMI, PERRLA. ABSENT: scleral icterus Ear exam: PRESENT: normal external ear exam Mouth exam: PRESENT: moist, tongue midline Teeth exam: PRESENT: poor dentation Neck exam: ABSENT: carotid bruit, JVD, lymphadenopathy, thyromegaly Respiratory exam: PRESENT: clear to auscultation ern[place], decreased breath sounds - bibasilar, prolonged expiratory phas, symmetrical, unlabored. ABSENT: rales, rhonchi, wheezes Cardiovascular exam: PRESENT: irregular rhythm, +S1, +S2. ABSENT: diastolic murmur, rubs, systolic murmur Pulses: PRESENT: normal dorsalis pedis pul Vascular exam: PRESENT: normal capillary refill GI/Abdominal exam: PRESENT: normal bowel sounds, soft. ABSENT: distended, guarding, mass, organolmegaly, rebound, tenderness Rectal exam: PRESENT: deferred Extremities exam: PRESENT: full ROM. ABSENT: calf tenderness, clubbing, pedal edema Musculoskeletal exam: PRESENT: ambulatory - w/ walker and 1 person assist Neurological exam: PRESENT: alert, awake, oriented to person, oriented to place, oriented to situation, CN II-XII grossly intact, other - forgetful. Fatigued; falls asleep during conversation. ABSENT: motor sensory deficit Psychiatric exam: PRESENT: appropriate affect, normal mood. ABSENT: homicidal ideation, suicidal ideation Skin exam: PRESENT: dry, intact, warm. ABSENT: cyanosis, rash Results Laboratory Results: 07/22/18 04:29 07/22/18 04:29 07/21/18 07/22/18 07/22/18 04:50 04:29 04:29 WBC 15.1 H RBC 3.75 L Hgb 10.8 L Hct 32.9 L MCV 88 MCH 28.7 MCHC 32.7 RDW 14.4 H Plt Count 230 Sodium 140.1 Potassium 3.9 Chloride 87 L Carbon Dioxide 45 H* Anion Gap 8 BUN 55 H Creatinine 0.87 Est GFR ( Amer) > 60 Est GFR (Non-Af Amer) > 60 Glucose 74 L Calcium 8.5 Total Bilirubin 0.5 AST 12 L ALT 31 Alkaline Phosphatase 117 Total Protein 5.7 L Albumin 3.3 L 07/09/18 15:28 Troponin I 0.019 NT-Pro-B Natriuret Pep 9160 H Impressions: Chest X-Ray 07/10/18 10:45 IMPRESSION: Borderline cardiomegaly. Persistent prominence of right hilum. Follow-up with standard PA and lateral view would be helpful. Chest CT 07/11/18 00:00 IMPRESSION: Markedly improved pneumonia. No evidence of hilar mass. Qualifiers - * PATIENT BEING DISCHARGED WITH ANY OF THE FOLLOWING DIAGNOSIS: No Acute Heart Failure - Is this a Heart Failure Patient?: Yes LVEF < 40%?: No- if no continue to question #3 3. Anticoagulant therapy for permanect/persistent/paraoxysmal Afib or Aflutter: N/A Follow-up Appointment scheduled within 7 days?: Yes Plan Discharge Plan: Discharged to home with home health nursing, PT/OT, aide, and clinical social work therapist. Follow-up with primary care provider within 1 week. Follow-up with Dr. Frazier in 2 to 3 weeks. Keep appointments with [facility] Palliative Care team. Take medications as ordered. Weigh daily; call provider if you gain more than 2 pounds overnight. Eat a low sodium and consistent carb (diabetic) diet. Use BiPAP nightly! Return to the emergency department as needed for concerning symptoms. Time Spent: Greater than 30 Minutes
== END 2018-07-22 17:18 | disposition hospice, home (50) | DRG 291 ==
LOC: ER 14:14 → EH 18:17 → 3W 07-10 01:15
PROVIDERS: ADMIT Internal Medicine; ATTEND Internal Medicine
PROC: 5A09557 Assistance with Respiratory Ventilation, Greater than 96 Consecutive Hours, Continuous Positive Airway Pressure (ICD-10-PCS; principal; 2018-07-09)
DX: I11.0 Hypertensive heart disease with heart failure (principal); J96.21 Acute and chronic respiratory failure with hypoxia; G92 Toxic encephalopathy; J18.9 Pneumonia, unspecified organism; F05 Delirium due to known physiological condition; E66.2 Morbid (severe) obesity with alveolar hypoventilation; C85.90 Non-Hodgkin lymphoma, unspecified, unspecified site; I50.23 Acute on chronic systolic (congestive) heart failure; R41.0 Disorientation, unspecified; G47.33 Obstructive sleep apnea (adult) (pediatric); E78.5 Hyperlipidemia, unspecified; E11.9 Type 2 diabetes mellitus without complications; J44.9 Chronic obstructive pulmonary disease, unspecified; M19.90 Unspecified osteoarthritis, unspecified site; T42.6X5A Adverse effect of other antiepileptic and sedative-hypnotic drugs, initial encounter; I48.2 Chronic atrial fibrillation; Z91.19 Patient's noncompliance with other medical treatment and regimen; Z79.899 Other long term (current) drug therapy; Z79.82 Long term (current) use of aspirin; Z79.01 Long term (current) use of anticoagulants; Z83.6 Family history of other diseases of the respiratory system; Z83.3 Family history of diabetes mellitus; Z79.4 Long term (current) use of insulin; Z87.891 Personal history of nicotine dependence
CPT/HCPCS: 36415; 36600; 71045; 71250; 80048; 80053; 80076; 80162; 80164; 82140; 82803; 82962; 83735; 83880; 84100; 84443; 84484; 85025; 85027; 93005; 93010; 94640; 94660; 99291; J1630; J1652; J1815; J1940; J2920; J3490; J7512; J7620

== ENCOUNTER 2018-07-27 17:03 | Observation (INO) | payer MEDICARE, BC ==
[2018-07-27] MEDS ORDERED: NORMAL SALINE 1000 ML 1,000 ML IV ONE (19:33)
[2018-07-27] MEDS ORDERED: LOPERAMIDE HCL 2 MG CAPSULE PO ONE (19:33)
[2018-07-27 19:38] LABS: VENOUS BLOOD BASE EXCESS 12.6 mmol/L; VENOUS BLOOD HCO3 40.7 mmol/L (20-32); VENOUS BLOOD PH 7.37 (7.30-7.42)
[2018-07-27 19:39] LABS: INTERNATIONAL RATION (INR) 0.91; PROTHROMBIN TIME 12.7 SEC (11.4-15.4)
[2018-07-27 19:42] LABS: HEMATOCRIT 28.8 % (37.9-51.0); HEMOGLOBIN 9.4 g/dL (13.5-17.0); MEAN CORPUSCULAR HGB CONC 32.7 g/dL (32.0-36.0); MEAN CORPUSCULAR VOLUME 89 fl (80-97); PLATELET COUNT 239 10^3/uL (150-450); RED BLOOD COUNT 3.25 10^6/uL (4.35-5.55); RED CELL DISTRIBUTION WIDTH 14.7 % (11.5-14.0); VENOUS BLOOD PCO2 71.9 mmHg (35-63); WHITE BLOOD COUNT 21.2 10^3/uL (4.0-10.5)
[2018-07-27 19:45] LABS: ALANINE AMINOTRANSFERASE 20 U/L (21-72); ALBUMIN 2.7 g/dL (3.5-5.0); ALKALINE PHOSPHATASE 105 U/L (38-126); ANION GAP 7 (5-19); ASPARTATE AMINO TRANSFERASE 9 U/L (17-59); BILIRUBIN,DIRECT 0.3 mg/dL (0.0-0.4); BILIRUBIN,TOTAL 0.3 mg/dL (0.2-1.3); BLOOD UREA NITROGEN 38 mg/dL (7-20); CARBON DIOXIDE 39 mmol/L (22-30); CHLORIDE 88 mmol/L (98-107); GLUCOSE 258 mg/dL (75-110); TOTAL PROTEIN 4.7 g/dL (6.3-8.2)
[2018-07-27] MEDS ORDERED: POTASSI CL 20 MEQ/50 ML RIDER 20 MEQ/50 ML RTUPB IV ONE (19:57)
[2018-07-27] MEDS ORDERED: RINGERS SOLUTION,LACTATED 1,000 ML IV ONE (19:57)
[2018-07-27] MEDS ORDERED: POTASSIUM CHLORIDE 10 MEQ CAPSULE.ER PO ONE (19:57)
[2018-07-27 19:58] LABS: ABSOLUTE LYMPHOCYTES# (MANUAL) 1.5 10^3/uL (0.5-4.7); ABSOLUTE MONOCYTES # (MANUAL) 0.2 10^3/uL (0.1-1.4); ABSOLUTE NEUTROPHILS# (MANUAL) 19.5 10^3/uL (1.7-8.2); BAND NEUTROPHILS % (MANUAL) 2 % (3-5); BASOPHILS % (MANUAL) 0 % (0-2); EOSINOPHILS % (MANUAL) 0 % (0-6); LYMPHOCYTES % (MANUAL) 7 % (13-45); MONOCYTES % (MANUAL) 1 % (3-13); SEGMENTED NEUTROPHILS % (MAN) 90 % (42-78); TOTAL CELLS COUNTED 100
[2018-07-27 19:59] LABS: ANISOCYTOSIS SLIGHT
[2018-07-27 20:00] LABS: PLATELET COMMENT ADEQUATE
--- NOTE | 2018-07-27 20:39 | ER Document Report ---
ED General - General Chief Complaint: Diarrhea Stated Complaint: WEAKNESS Time Seen by Provider: 07/27/18 19:31 Notes: Patient is a 68-year-old male with past medical history of CHF, hypertension, COPD with chronic oxygen dependency who presents with approximately 1 week of diarrhea. Patient was recently hospitalized, was on antibiotics during his hospitalization for respiratory failure and began developing diarrhea apparently 2 days prior to discharge. Family states that he was told "that this is normal" and he was suddenly discharged home. Family states the diarrhea has persisted at home and section gotten worse. Patient notes some generalized abdominal cramping that is mild to moderate in intensity, intermittent in nature. Nothing seems to improve or worsen his symptoms. Denies any history of similar symptoms in the past. Has not followed up with his primary care doctor although was instructed to come to the emergency department today at the behest of his home health care nurse who did consult with his physician. He has not had fever. Has been getting increasingly weak at home per family. No vomiting. TRAVEL OUTSIDE OF THE [place] IN LAST 30 DAYS: No - Related Data Allergies/Adverse Reactions: No Known Allergies Allergy (Verified 06/21/18 04:09) Past Medical History - General Information source: Patient - Social History Smoking Status: Never Smoker Chew tobacco use (# tins/day): No Frequency of alcohol use: None Drug Abuse: None Lives with: Spouse/Significant other Family History: CAD, COPD, DM, Hypertension, Malignancy Patient has suicidal ideation: No Patient has homicidal ideation: No - Past Medical History Cardiac Medical History: Reports: Hx Congestive Heart Failure, Hx Hypercholesterolemia, Hx Hypertension Denies: Hx Heart Attack Pulmonary Medical History: Reports: Hx COPD Comment Only: Hx Asthma - ? Neurological Medical History: Denies: Hx Cerebrovascular Accident, Hx Seizures Endocrine Medical History: Reports: Hx Diabetes Mellitus Type 2. Denies: Hx Diabetes Mellitus Type 1, Hx Hyperthyroidism, Hx Hypothyroidism Renal/ Medical History: Denies: Hx Peritoneal Dialysis Malignancy Medical History: Reports Hx Lymphoma GI Medical History: Denies: Hx Hepatitis, Hx Hiatal Hernia, Hx Ulcer Musculoskeletal Medical History: Reports Hx Arthritis, Reports Hx Musculoskeletal Deformity, Reports Hx Musculoskeletal Trauma Psychiatric Medical History: Denies: Hx Depression Traumatic Medical History: Reports: Hx Fractures. Denies: Hx Traumatic Brain Injury Infectious Medical History: Denies: Hx Hepatitis, Hx HIV Past Surgical History: Reports: Hx Neurologic Surgery - Spinal tumor removed, Hx Testicular Surgery - James's gangrene, Other - Neurosurgical removal of a spinal tumor. Denies: Hx Open Heart Surgery, Hx Pacemaker - Immunizations Hx Diphtheria, Pertussis, Tetanus Vaccination: Yes Review of Systems - Review of Systems Notes: Constitutional: Negative for fever. HENT: Negative for sore throat. Eyes: Negative for visual changes. Cardiovascular: Negative for chest pain. Respiratory: Negative for shortness of breath. Gastrointestinal: Positive for abdominal cramping and diarrhea Genitourinary: Negative for dysuria. Musculoskeletal: Negative for back pain. Skin: Negative for rash. Neurological: Negative for headaches, weakness or numbness. 10 point ROS negative except as marked above and in HPI. Physical Exam - Vital signs Vitals: Resp 19 07/27/18 17:46 Interpretation: Normal Notes: PHYSICAL EXAMINATION: GENERAL: Somewhat frail-appearing elderly male in no acute distress HEAD: Atraumatic, normocephalic. EYES: Pupils equal round and reactive to light, extraocular movements intact, sclera anicteric, conjunctiva are normal. ENT: nares patent, oropharynx clear without exudates. Dry mucous membranes. NECK: Normal range of motion, supple without lymphadenopathy LUNGS: Breath sounds clear to auscultation bilaterally and equal. No wheezes rales or rhonchi. HEART: Regular rate and rhythm without murmurs ABDOMEN: Soft, nontender, normoactive bowel sounds. No guarding, no rebound. No masses appreciated. EXTREMITIES: Normal range of motion, no pitting or edema. No cyanosis. NEUROLOGICAL: No focal neurological deficits. Moves all extremities sp ontaneously and on command. PSYCH: Somewhat lethargic but responds appropriately to questions SKIN: Warm, Dry, normal turgor, no rashes or lesions noted. Course - Re-evaluation Re-evalutation: 07/27/18 20:38 Patient presents with persistent diarrhea for the past 8 days that did start while he was still in the hospital last week. High level of concern for C. difficile colitis. Labs indicate leukocytosis, mild dehydration and hypokalemia consistent with persistent diarrhea. The patient has no focal abdominal tenderness, rebound or guarding on exam. Does appear quite dehydrated otherwise. Vitals are within excitable limits, mild hypertension otherwise unremarkable. Stool studies are pending. Will begin potassium and magnesium repletion. IV fluid resuscitation likewise has been initiated. 07/28/18 01:36 Patient is positive for C. difficile colitis. I discussed with Dr. Garner who is accepted the patient for observation. - Vital Signs Vital signs: Temp Pulse Resp BP Pulse Ox 98.1 F 93 18 150/56 H 95 07/28/18 03:30 07/28/18 03:30 07/28/18 03:30 07/28/18 03:30 07/28/18 03:30 - Laboratory Result Diagrams: 07/27/18 18:50 07/27/18 18:50 Laboratory results interpreted by me: 07/27/18 07/27/18 07/27/18 18:50 18:50 18:50 WBC 21.2 H RBC 3.25 L Hgb 9.4 L Hct 28.8 L RDW 14.7 H Seg Neuts % (Manual) 90 H Band Neutrophils % 2 L Lymphocytes % (Manual) 7 L Monocytes % (Manual) 1 L Abs Neuts (Manual) 19.5 H VBG pCO2 71.9 H* VBG HCO3 40.7 H Sodium 134.0 L Potassium 3.0 L* Chloride 88 L Carbon Dioxide 39 H BUN 38 H Glucose 258 H Calcium 8.0 L AST 9 L ALT 20 L Total Protein 4.7 L Albumin 2.7 L Discharge - Discharge Clinical Impression: C. difficile colitis, Hypokalemia Leukocytosis Qualifiers: Leukocytosis type: unspecified Qualified Code(s): D72.829 - Elevated white blood cell count, unspecified Condition: Fair Disposition: ADMITTED OBSERVATION Admitting Provider: Patsy (Hospitalist) Unit Admitted: Medical Floor
[2018-07-27] MEDS: MAGNESIUM SULFATE/D5W 1 GM/100 ML RTUPB IV SCH ×2 (22:07→23:21)
[2018-07-28] MEDS ORDERED: VANCOMYCIN HCL INJ 500 MG VIAL PO ONE (01:27)
[2018-07-28] MEDS ORDERED: ONDANSETRON HCL INJ/PF 4 MG/2 ML SDV IV PRN (01:55)
[2018-07-28] MEDS ORDERED: DEXTROSE 50%-WATER 25 GM/50 ML DISP.SYRIN IV PRN ×2 (02:05)
[2018-07-28] MEDS ORDERED: DEXTROSE 40% GEL 15 GM TUBE PO PRN ×2 (02:05)
[2018-07-28] MEDS ORDERED: GLUCAGON,HUMAN RECOMB 1 MG INJ IM PRN (02:05)
[2018-07-28] MEDS ORDERED: INSULIN REG, HUMAN 100 UNIT/ML 3 ML VIAL (PYX) SUBCUT PRN (02:06)
[2018-07-28] MEDS ORDERED: NICOTINE 21 MG/24 HR PATCH.TD24 TD PRN (02:06)
[2018-07-28] MEDS ORDERED: ACETAMINOPHEN 325 MG TABLET PO PRN (02:06)
[2018-07-28] MEDS ORDERED: LEVALBUTEROL HCL NEB 0.63 MG/3 ML AMPUL NEB PRN (02:06)
[2018-07-28] MEDS: POTASSI CL 20 MEQ/NS 1L 1,000 ML IV PRN ×3 (04:05→23:42)
[2018-07-28] MEDS ORDERED: VANCOMYCIN HCL INJ 500 MG VIAL ONE (05:48)
[2018-07-28] MEDS: GABAPENTIN 100 MG CAPSULE PO SCH ×4 (06:01→23:40)
[2018-07-28] MEDS: VANCOMYCIN HCL INJ 500 MG VIAL PO SCH ×4 (06:01→23:39)
[2018-07-28 06:22] LABS: HEMATOCRIT 28.8 % (37.9-51.0); HEMOGLOBIN 9.5 g/dL (13.5-17.0); MEAN CORPUSCULAR HGB CONC 32.8 g/dL (32.0-36.0); MEAN CORPUSCULAR VOLUME 88 fl (80-97); PLATELET COUNT 224 10^3/uL (150-450); RED BLOOD COUNT 3.26 10^6/uL (4.35-5.55); RED CELL DISTRIBUTION WIDTH 15.2 % (11.5-14.0); WHITE BLOOD COUNT 18.1 10^3/uL (4.0-10.5)
[2018-07-28 06:39] LABS: ANION GAP 5 (5-19); BLOOD UREA NITROGEN 30 mg/dL (7-20); CARBON DIOXIDE 36 mmol/L (22-30); CHLORIDE 94 mmol/L (98-107); DIGOXIN 0.79 ng/mL (0.8-2.0); GLUCOSE 181 mg/dL (75-110); POTASSIUM 3.3 mmol/L (3.6-5.0); SODIUM 135.1 mmol/L (137-145)
[2018-07-28 06:59] LABS: ABSOLUTE LYMPHOCYTES# (MANUAL) 2.4 10^3/uL (0.5-4.7); ABSOLUTE MONOCYTES # (MANUAL) 0.5 10^3/uL (0.1-1.4); ABSOLUTE NEUTROPHILS# (MANUAL) 15.2 10^3/uL (1.7-8.2); BAND NEUTROPHILS % (MANUAL) 2 % (3-5); BASOPHILS % (MANUAL) 0 % (0-2); EOSINOPHILS % (MANUAL) 0 % (0-6); LYMPHOCYTES % (MANUAL) 13 % (13-45); MONOCYTES % (MANUAL) 3 % (3-13); SEGMENTED NEUTROPHILS % (MAN) 82 % (42-78); TOTAL CELLS COUNTED 100
[2018-07-28 07:00] LABS: ANISOCYTOSIS SLIGHT; HYPOCHROMASIA 2+
[2018-07-28 07:01] LABS: PLATELET COMMENT ADEQUATE
--- NOTE | 2018-07-28 07:04 | PDOC H&P ---
History of Present Illness Admission Date/PCP: 07/28/2018 01:31 HILARIA ALFARO MD Patient complains of: Diarrhea History of Present Illness: THEODORE SON is a 68 year old male who presents the emergency room with a 7- day history of diarrhea. He admits that he developed diarrhea 2 days prior to his recent hospital discharge and now he informed his hospitalist of the fact that he had diarrhea no additional testing was done and he was told that "this is normal" and "it would be okay in a few days". After discharge his diarrhea continued to worsen by increasing in frequency to 5-8 watery taupe colored foul- smelling stools daily accompanied by generalized abdominal cramping, tenderness and discomfort. He also offers the associated symptoms of fatigue and generalized weakness. He denies prior similar symptoms and has not identified any aggravating or ameliorating factors for his diarrhea. In the emergency room he was found to have an essentially unremarkable work-up with the exception of a diarrhea stool positive for C. difficile. He was subsequently admitted to hospital on observation status for further evaluation and treatment. Past Medical History Cardiac Medical History: Reports: Atrial Fibrillation, Congestive Heart Failure, Coronary Artery Disease, Hyperlipidema, Hypertension Denies: Myocardial Infarction Pulmonary Medical History: Reports: Bronchitis, Chronic Obstructive Pulmonary Disease (COPD), Intubation, Pneumonia, Respiratory Failure Denies: Asthma EENT Medical History: Denies: Cataracts, Ears - Hearing aids Neurological Medical History: Denies: Hemorrhagic CVA, Ischemic CVA, Seizures Endocrine Medical History: Reports: Diabetes Mellitus Type 2, Obesity Denies: Diabetes Mellitus Type 1, Hyperthyroidism, Hypothyroidism Renal/ Medical History: Denies: Chronic Kidney Disease, Nephrolithiasis Malignancy Medical History: Reports: Lymphoma GI Medical History: Denies: Cirrhosis, Crohn's Disease, Hepatitis, Hiatal Hernia, Ulcerative Colitis Musculoskeltal Medical History: Reports: Arthritis Denies: Gout Skin Medical History: Denies: Eczema, Psoriasis Psychiatric Medical History: Reports: Tobacco Dependency Denies: Alcohol Dependency, Depression, Substance Abuse Traumatic Medical History: Reports: None Hematology: Reports: Anemia Denies: Bleeding Tendencies Infectious Medical History: Reports: None Past Surgical History Past Surgical History: Reports: Other - Neurosurgery for spinal tumor removal, orchiectomy for James's gangrene Social History Information Source: Patient Lives with: Spouse/Significant other Smoking Status: Former Smoker Frequency of Alcohol Use: None Hx Recreational Drug Use: No Drugs: None Hx Prescription Drug Abuse: No - Advance Directive Resuscitation Status: Full Code Surrogate healthcare decision maker:: Shara Son Family History Family History: CAD, COPD, DM, Hypertension, Malignancy Parental Family History Reviewed: Yes Children Family History Reviewed: No Sibling(s) Family History Reviewed.: Yes Medication/Allergy Home Medications: Aspirin [Ecotrin 81 mg EC Tablet] 81 mg PO DAILY 06/21/18 Digoxin [Lanoxin 0.125 mg Tablet] 0.125 mg PO DAILY 06/21/18 Divalproex Sodium [Depakote] 125 mg PO QAM 06/21/18 Divalproex Sodium [Depakote] 250 mg PO QPM 06/21/18 Ipratropium/Albuterol Sulfate [Duoneb 3 ml Ampul] 3 ml NEB Q6 06/21/18 Magnesium Oxide [Mag-Ox 400 mg Tablet] 400 mg PO DAILY 06/21/18 Metoprolol Tartrate [Lopressor 25 mg Tablet] 25 mg PO Q12 06/21/18 Albuterol Sulfate [Proair HFA Inhalation Aerosol 8.5 gm MDI] 1 puff IH Q4HP PRN 07/09/18 Albuterol Sulfate [Ventolin 0.083% Neb 2.5 mg/3 mL Ampul] 1 vial NEB Q2HP PRN 07/09/18 Apixaban [Eliquis 5 mg Tablet] 5 mg PO BID 07/09/18 Pantoprazole Sodium [Protonix [address] Tablet] 40 mg PO DAILY 07/09/18 Acetaminophen [Tylenol 325 mg Tablet] 650 mg PO Q4HP PRN tablet 07/22/18 Buspirone HCl [Buspar 10 mg Tablet] 5 mg PO Q12HP PRN #60 tablet 07/22/18 Docusate Sodium [Colace 100 mg Capsule] 100 mg PO BID capsule 07/22/18 Fluticasone/Vilanterol [Breo 200-25 Mcg Ellipta 14 Dose/Dpi] 1 inh IH DAILY #1 inhaler 07/22/18 Furosemide [Lasix 40 mg Tablet] 40 mg PO BID #60 tablet 07/22/18 Gabapentin [Neurontin 100 mg Capsule] 100 mg PO Q6 #120 capsule 07/22/18 Insulin Degludec [Tresiba] 25 unit SQ QHS #3 vial 07/22/18 Prednisone [Deltasone 10 mg Tablet] 10 mg PO ASDIR PRN #5 tablet 07/22/18 Quetiapine Fumarate [Seroquel 25 mg Tablet] 25 mg PO DAILY #30 tablet 07/22/18 Tiotropium [place] [Spiriva Handihaler 5 Cap/Kit (18 Mcg/Cap)] 1 cap IH DAILY #1 kit 07/22/18 Allergies/Adverse Reactions: No Known Allergies Allergy (Verified 06/21/18 04:09) Review of Systems Constitutional: PRESENT: as per HPI, fatigue, weakness. ABSENT: chills, fever(s) Eyes: ABSENT: visual disturbances, other - Eye pain Ears: ABSENT: hearing changes, other - Ear pain Nose, Mouth, and Throat: ABSENT: mouth pain, sore throat Cardiovascular: ABSENT: chest pain, dyspnea on exertion, edema, orthropnea, palpitations Respiratory: ABSENT: cough, dyspnea Gastrointestinal: PRESENT: as per HPI, abdominal pain, diarrhea. ABSENT: constipation, hematochezia, melena, nausea, vomiting Genitourinary: ABSENT: dysuria, hematuria Musculoskeletal: ABSENT: joint swelling, muscle weakness Integumentary: ABSENT: pruritus, rash Neurological: ABSENT: confusion, convulsions, focal weakness, memory loss, syncope Psychiatric: ABSENT: anxiety, depression Endocrine: ABSENT: cold intolerance, heat intolerance Hematologic/Lymphatic: ABSENT: easy bleeding, easy bruising Physical Exam Vital Signs: Temp Pulse Resp BP Pulse Ox 18 140/64 H 99 07/27/18 22:08 07/27/18 22:08 07/27/18 22:08 Intake & Output 07/26/18 07/27/18 07/28/18 23:59 23:59 23:59 Intake Total 1100 100 Balance 1100 100 Weight 106 kg General appearance: PRESENT: no acute distress, cooperative, obese Head exam: PRESENT: atraumatic, normocephalic Eye exam: ABSENT: conjunctival injection, scleral icterus Ear exam: PRESENT: normal external ear exam. ABSENT: bleeding, drainage Mouth exam: PRESENT: dry mucosa, neck supple Neck exam: ABSENT: thyromegaly, tracheal deviation Respiratory exam: PRESENT: decreased breath sounds - Mildly decreased breath sounds throughout all yañez consistent with mild to moderate COPD, prolonged expiratory phas - Slightly prolonged expiratory phase in all yañez, symmetrical, unlabored. ABSENT: rales, rhonchi Cardiovascular exam: PRESENT: RRR. ABSENT: clicks, gallop, rubs Pulses: PRESENT: normal radial pulses, normal dorsalis pedis pul Vascular exam: PRESENT: normal capillary refill. ABSENT: pallor GI/Abdominal exam: PRESENT: hypoactive bowel sounds, soft, tenderness - Mild generalized tenderness to palpation. ABSENT: distended, guarding Rectal exam: PRESENT: deferred Extremities exam: ABSENT: joint swelling, pedal edema Musculoskeletal exam: ABSENT: deformity, dislocation Neurological exam: PRESENT: alert, oriented to person, oriented to place, oriented to time, oriented to situation, CN II-XII grossly intact. ABSENT: mot or sensory deficit Psychiatric exam: PRESENT: appropriate affect, normal mood Skin exam: PRESENT: dry, intact, warm. ABSENT: jaundice, rash, urticaria Results Laboratory Results: 07/27/18 18:50 07/27/18 18:50 07/27/18 07/27/18 07/27/18 18:50 18:50 18:50 WBC 21.2 H RBC 3.25 L Hgb 9.4 L Hct 28.8 L MCV 89 MCH 29.0 MCHC 32.7 RDW 14.7 H Plt Count 239 Seg Neutrophils % Not Reportable Lymphocytes % Not Reportable Monocytes % Not Reportable Eosinophils % Not Reportable Basophils % Not Reportable Absolute Neutrophils Not Reportable Absolute Lymphocytes Not Reportable Absolute Monocytes Not Reportable Absolute Eosinophils Not Reportable Absolute Basophils Not Reportable VBG pH VBG pCO2 VBG HCO3 VBG Base Excess Sodium 134.0 L Potassium 3.0 L* Chloride 88 L Carbon Dioxide 39 H Anion Gap 7 BUN 38 H Creatinine 0.83 Est GFR ( Amer) > 60 Est GFR (Non-Af Amer) > 60 Glucose 258 H Lactic Acid 1.6 Calcium 8.0 L Magnesium Total Bilirubin 0.3 AST 9 L ALT 20 L Alkaline Phosphatase 105 Total Protein 4.7 L Albumin 2.7 L Stool Occult Blood 07/27/18 07/27/18 07/27/18 18:50 18:50 23:00 WBC RBC Hgb Hct MCV MCH MCHC RDW Plt Count Seg Neutrophils % Lymphocytes % Monocytes % Eosinophils % Basophils % Absolute Neutrophils Absolute Lymphocytes Absolute Monocytes Absolute Eosinophils Absolute Basophils VBG pH 7.37 VBG pCO2 71.9 H* VBG HCO3 40.7 H VBG Base Excess 12.6 Sodium Potassium Chloride Carbon Dioxide Anion Gap BUN Creatinine Est GFR ( Amer) Est GFR (Non-Af Amer) Glucose Lactic Acid Calcium Magnesium 1.9 Total Bilirubin AST ALT Alkaline Phosphatase Total Protein Albumin Stool Occult Blood POSITIVE Assessment and Plan - Diagnosis (1) Clostridium difficile enterocolitis Is this a current diagnosis for this admission?: Yes Plan: Patient be treated with oral vancomycin 125 mg p.o. every 6 hours for 10 days. Daily laboratory with a CBC, metabolic profile and magnesium levels will be obtained. Pain associated with the C. difficile will be treated with morphine sulfate 2 to 4 mg IV every 2 hours as needed on a sliding scale basis. (2) CHF (congestive heart failure) Qualifiers: Heart failure type: diastolic Heart failure chronicity: chronic Qualified Code(s): I50.32 - Chronic diastolic (congestive) heart failure Is this a current diagnosis for this admission?: Yes Plan: Patient be continued on his current regimen for congestive heart failure. He will be clinically reevaluated on basis for any changes treatment letter required. He will be continued on his nocturnal BiPAP as per his home schedule. (3) Hypertension Qualifiers: Hypertension type: essential hypertension Qualified Code(s): I10 - Essential (primary) hypertension Is this a current diagnosis for this admission?: Yes Plan: Patient will be continued on his current antihypertensive regimen. His vital signs be followed closely throughout his hospital course with changes made to his therapy on as-needed basis. (4) Hyperlipidemia Qualifiers: Hyperlipidemia type: unspecified Qualified Code(s): E78.5 - Hyperlipidemia, unspecified Is this a current diagnosis for this admission?: Yes Plan: Patient will be continued on his current anti-hyperlipidemia regimen. Changes will be made only if required. (5) COPD (chronic obstructive pulmonary disease) Qualifiers: COPD type: unspecified COPD Qualified Code(s): J44.9 - Chronic obstructive pulmonary disease, unspecified Is this a current diagnosis for this admission?: Yes Plan: Patient be continued on a hospital pulmonary toilet for his COPD. Changes will be made as needed and more in-depth evaluation will be performed if required. (6) Diabetes mellitus type 2 in obese Is this a current diagnosis for this admission?: Yes Plan: Patient be continued on his current diabetic regiment and diet. Sliding scale will be used to control hyperglycemic events. Changes to the overall regiment will be made only as needed. - Time Time Spent with patient: 25-34 minutes Medications reviewed and adjusted accordingly: Yes Anticipated discharge: Home - Inpatient Certification Based on my medical assessment, after consideration of the patient's comorbidities, presenting symptoms, or acuity I expect that the services needed warrant INPATIENT care.: No I certify that my determination is in accordance with my understanding of Medicare's requirements for reasonable and necessary INPATIENT services [42 CFR 412.3e].: No Medical Necessity: Significant Comorbidiites Make Outpatient Treatment Too Risky, Need Close Monitoring Due to Risk of Patient Decompensation
--- NOTE | 2018-07-28 07:40 | EKG REPORT ---
SEVERITY:- ABNORMAL ECG - SINUS RHYTHM SUPRAVENTRICULAR BIGEMINY RIGHT BUNDLE BRANCH BLOCK INFERIOR INFARCT, ACUTE ANTERIOR INFARCT, POSSIBLY ACUTE CLINICAL CORRELATION NEEDED. : Confirmed by: Dima Rodríguez MD 28-Jul-2018 07:40:11
[2018-07-28] MEDS: LEVALBUTEROL HCL NEB 1.25 MG/3 ML AMPUL NEB SCH ×2 (08:15→15:42)
[2018-07-28] MEDS: IPRATROPIUM BROMIDE 0.02% NEB 0.5 MG/2.5 ML AMPUL NEB SCH ×2 (08:15→15:42)
[2018-07-28] MEDS: INSULIN GLARGINE,HUM.REC.ANLOG 1,000 UNIT/10 ML VIAL SUBCUT SCH (09:44)
[2018-07-28] MEDS: FAMOTIDINE 20 MG TABLET PO SCH ×2 (10:29→23:41)
[2018-07-28] MEDS: DIGOXIN 0.125 MG TABLET PO SCH (10:29)
[2018-07-28] MEDS: APIXABAN 5 MG TABLET PO SCH ×2 (10:29→17:01)
[2018-07-28] MEDS: QUETIAPINE FUMARATE 25 MG TABLET PO SCH (10:29)
[2018-07-28] MEDS: METOPROLOL TARTRATE 25 MG TABLET PO SCH ×3 (10:29→23:43)
[2018-07-28] MEDS: FLUTICASONE/VILANTEROL 200-25 MCG/DOSE IH SCH (10:29)
[2018-07-28] MEDS: DIVALPROEX SODIUM 125 MG CAP.SPRINK PO SCH (10:29)
[2018-07-28 16:03] LABS: ARTERIAL BLOOD BASE EXCESS 11.2 mmol/L; ARTERIAL BLOOD H2CO3 1.78 mmol/L (1.05-1.35); ARTERIAL BLOOD HCO3 37.4 mmol/L (20-24); ARTERIAL BLOOD O2 SATURATION 93.9 % (94-98); ARTERIAL BLOOD PCO2 59.2 mmHg (35-45); ARTERIAL BLOOD PH 7.42 (7.35-7.45); ARTERIAL BLOOD PO2 70.1 mmHg (80-100); ARTERIAL BLOOD TOTAL CO2 39.2 mmol/L (23-27)
[2018-07-28 16:05] LABS: ARTERIAL BLOOD FIO2 35%
[2018-07-28] MEDS: INSULIN REG, HUMAN 100 UNIT/ML 3 ML VIAL (PYX) SUBCUT SCH ×2 (16:05→23:39)
--- NOTE | 2018-07-28 16:58 | Progress Note ---
Provider Note Provider Note: THEODORE SON is a 68 year old male who presents the emergency room with a 7- day history of diarrhea. He admits that he developed diarrhea 2 days prior to his recent hospital discharge and now he informed his hospitalist of the fact that he had diarrhea no additional testing was done and he was told that "this is normal" and "it would be okay in a few days". After discharge his diarrhea continued to worsen by increasing in frequency to 5-8 watery taupe colored foul- smelling stools daily accompanied by generalized abdominal cramping, tenderness and discomfort. He also offers the associated symptoms of fatigue and generalized weakness. He denies prior similar symptoms and has not identified any aggravating or ameliorating factors for his diarrhea. In the emergency room he was found to have an essentially unremarkable work-up with the exception of a diarrhea stool positive for C. difficile. He was subsequently admitted to hospital on observation status for further evaluation and treatment. 07/28/2018. Patient lethargic morning but arousable, and ABG on hypercarbia she is within his baseline, and mild hypoxia which is also his baseline. On my second encounter in the afternoon patient comfortably sitting in bed enjoying his lunch. Not in any apparent distress. Has had one loose bowel movement. Currently on vancomycin p.o. Denies any fever, chills, nausea, vomiting or any urinary symptoms. We will continue p.o. vancomycin, monitor electrolytes and volume status and replace as needed. If diarrhea resolved by tomorrow will DC back home tomorrow.
[2018-07-28] MEDS ORDERED: DIVALPROEX SODIUM 250 MG TABLET.DR PO SCH (18:00)
[2018-07-29] MEDS: LEVALBUTEROL HCL NEB 1.25 MG/3 ML AMPUL NEB SCH ×2 (00:16→07:58)
[2018-07-29] MEDS: IPRATROPIUM BROMIDE 0.02% NEB 0.5 MG/2.5 ML AMPUL NEB SCH ×2 (00:16→07:58)
[2018-07-29] MEDS: GABAPENTIN 100 MG CAPSULE PO SCH ×2 (05:05→11:06)
[2018-07-29] MEDS: VANCOMYCIN HCL INJ 500 MG VIAL PO SCH ×2 (05:05→11:08)
[2018-07-29 05:59] LABS: ABSOLUTE EOSINOPHILS # (AUTO) 0.2 10^3/uL (0.0-0.6); ABSOLUTE LYMPHOCYTES (AUTO) 0.8 10^3/uL (0.5-4.7); ABSOLUTE MONOCYTES (AUTO) 1.1 10^3/uL (0.1-1.4); ABSOLUTE NEUT (AUTO) 11.8 10^3/uL (1.7-8.2); BASOPHILS % (AUTO) 0.3 % (0-2); EOSINOPHILS % (AUTO) 1.4 % (0-6); HEMATOCRIT 26.8 % (37.9-51.0); HEMOGLOBIN 8.6 g/dL (13.5-17.0); LYMPHOCYTES % (AUTO) 6.1 % (13-45); MEAN CORPUSCULAR HEMOGLOBIN 28.6 pg (27.0-33.4); MEAN CORPUSCULAR HGB CONC 32.3 g/dL (32.0-36.0); MEAN CORPUSCULAR VOLUME 89 fl (80-97); MONOCYTES % (AUTO) 7.7 % (3-13); PLATELET COUNT 200 10^3/uL (150-450); RED BLOOD COUNT 3.02 10^6/uL (4.35-5.55); RED CELL DISTRIBUTION WIDTH 15.1 % (11.5-14.0); SEGMENTED NEUTROPHILS % (AUTO) 84.5 % (42-78); TOTAL CELLS COUNTED % (AUTO) 100 %
[2018-07-29 06:17] LABS: ANION GAP 5 (5-19); BLOOD UREA NITROGEN 19 mg/dL (7-20); CALCIUM 7.7 mg/dL (8.4-10.2); CARBON DIOXIDE 33 mmol/L (22-30); CHLORIDE 98 mmol/L (98-107); DIGOXIN 0.91 ng/mL (0.8-2.0); GLUCOSE 126 mg/dL (75-110); POTASSIUM 3.5 mmol/L (3.6-5.0); SODIUM 136.1 mmol/L (137-145)
[2018-07-29] MEDS: INSULIN REG, HUMAN 100 UNIT/ML 3 ML VIAL (PYX) SUBCUT SCH ×2 (07:36→11:06)
[2018-07-29] MEDS: DIVALPROEX SODIUM 125 MG CAP.SPRINK PO SCH (07:42)
[2018-07-29] MEDS: POTASSI CL 20 MEQ/NS 1L 1,000 ML IV PRN (07:53)
[2018-07-29] MEDS: FAMOTIDINE 20 MG TABLET PO SCH (11:06)
[2018-07-29] MEDS: APIXABAN 5 MG TABLET PO SCH (11:06)
[2018-07-29] MEDS: QUETIAPINE FUMARATE 25 MG TABLET PO SCH (11:06)
[2018-07-29] MEDS: METOPROLOL TARTRATE 25 MG TABLET PO SCH (11:06)
[2018-07-29] MEDS: DIGOXIN 0.125 MG TABLET PO SCH (11:06)
[2018-07-29] MEDS: INSULIN GLARGINE,HUM.REC.ANLOG 1,000 UNIT/10 ML VIAL SUBCUT SCH (11:07)
[2018-07-29] MEDS: FLUTICASONE/VILANTEROL 200-25 MCG/DOSE IH SCH (11:10)
[2018-07-29] MEDS ORDERED: ONDANSETRON HCL INJ/PF 4 MG/2 ML SDV IV PRN (13:30)
[2018-07-29 14:44] VITALS: BP 102/55
--- NOTE | 2018-08-02 17:42 | PDOC DISCHARGE SUMMARY ---
General - Admit/Disc Date/PCP Admission Date/Primary Care Provider: 07/28/18 02:02 HILARIA ALFARO MD Discharge Date: 07/29/18 - Discharge Diagnosis (1) Clostridium difficile enterocolitis Is this a current diagnosis for this admission?: Yes (2) CHF (congestive heart failure) Is this a current diagnosis for this admission?: No (3) COPD (chronic obstructive pulmonary disease) Is this a current diagnosis for this admission?: No (4) Diabetes mellitus type 2 in obese Is this a current diagnosis for this admission?: No (5) Hyperlipidemia Is this a current diagnosis for this admission?: No (6) Hypertension Is this a current diagnosis for this admission?: No - Additional Information Resuscitation Status: Full Code Discharge Diet: As Tolerated, Regular Discharge Activity: Activity As Tolerated Prescriptions: Calcium Carbonate 400 mg PO DAILY 10 Days #10 tab.chew Metronidazole [Flagyl 500 mg Tablet] 500 mg PO TID 10 Days #30 tablet Potassium Chloride [K-Tab ER] 20 meq PO DAILY 3 Days #3 tablet.er Home Medications: Aspirin [Ecotrin 81 mg EC Tablet] 81 mg PO DAILY 06/21/18 Digoxin [Lanoxin 0.125 mg Tablet] 0.125 mg PO DAILY 06/21/18 Divalproex Sodium [Depakote] 125 mg PO QAM 06/21/18 Divalproex Sodium [Depakote] 250 mg PO QPM 06/21/18 Magnesium Oxide [Mag-Ox 400 mg Tablet] 400 mg PO DAILY 06/21/18 Metoprolol Tartrate [Lopressor 25 mg Tablet] 25 mg PO Q12 06/21/18 Albuterol Sulfate [Proair HFA Inhalation Aerosol 8.5 gm MDI] 1 puff IH Q4HP PRN 07/09/18 Albuterol Sulfate [Ventolin 0.083% Neb 2.5 mg/3 mL Ampul] 1 vial NEB Q2HP PRN 07/09/18 Apixaban [Eliquis 5 mg Tablet] 5 mg PO BID 07/09/18 Pantoprazole Sodium [Protonix [address] Tablet] 40 mg PO DAILY 07/09/18 Buspirone HCl [Buspar 10 mg Tablet] 5 mg PO Q12HP PRN #60 tablet 07/22/18 Fluticasone/Vilanterol [Breo 200-25 Mcg Ellipta 14 Dose/Dpi] 1 inh IH DAILY #1 inhaler 07/22/18 Furosemide [Lasix 40 mg Tablet] 40 mg PO BID #60 tablet 07/22/18 Gabapentin [Neurontin 100 mg Capsule] 100 mg PO Q6 #120 capsule 07/22/18 Insulin Degludec [Tresiba] 25 unit SQ QHS #3 vial 07/22/18 Prednisone [Deltasone 10 mg Tablet] 10 mg PO ASDIR PRN #5 tablet 07/22/18 Quetiapine Fumarate [Seroquel 25 mg Tablet] 25 mg PO DAILY #30 tablet 07/22/18 Tiotropium [place] [Spiriva Handihaler 5 Cap/Kit (18 Mcg/Cap)] 1 cap IH DAILY #1 kit 07/22/18 Calcium Carbonate 400 mg PO DAILY 10 Days #10 tab.chew 07/29/18 Metronidazole [Flagyl 500 mg Tablet] 500 mg PO TID 10 Days #30 tablet 07/29/18 Potassium Chloride [K-Tab ER] 20 meq PO DAILY 3 Days #3 tablet.er 07/29/18 History of Present Illness History of Present Illness: THEODORE SON is a 68 year old male who presents the emergency room with a 7- day history of diarrhea. He admits that he developed diarrhea 2 days prior to his recent hospital discharge and now he informed his hospitalist of the fact that he had diarrhea no additional testing was done and he was told that "this is normal" and "it would be okay in a few days". After discharge his diarrhea continued to worsen by increasing in frequency to 5-8 watery taupe colored foul- smelling stools daily accompanied by generalized abdominal cramping, tenderness and discomfort. He also offers the associated symptoms of fatigue and gen eralized weakness. He denies prior similar symptoms and has not identified any aggravating or ameliorating factors for his diarrhea. In the emergency room he was found to have an essentially unremarkable work-up with the exception of a diarrhea stool positive for C. difficile. He was subsequently admitted to hospital on observation status for further evaluation and treatment. Hospital Course Hospital Course: (1) Clostridium difficile enterocolitis Resolved. Was recently admitted here admitted here at [facility] and tra nsferred to [place] for ARDS. This most likely antibiotic associated. Initially was started on oral vancomycin 125 mg p.o. every 6, and transitioned to metronidazole 500 mg p.o. 3 times daily to complete 14 days. (2) CHF (congestive heart failure) Compensated. Restart home meds. (3) Hypertension Normotensive, euvolemic. Was restarted on home meds. (4) Hyperlipidemia Diet and lifestyle modification recommended. Restart home meds. (5) COPD (chronic obstructive pulmonary disease) Not seem to be in any acute exacerbation. Restart home meds, PRN BiPAP and supplemental oxygen. (6) Diabetes mellitus type 2 in obese Was started on diabetic diet, sliding scale as needed, long-acting insulin, pre- meal insulin. Physical Exam Vital Signs: Temp Pulse Resp BP Pulse Ox 97.6 F 65 18 118/37 L 93 07/29/18 13:27 07/29/18 13:27 07/29/18 13:27 07/29/18 13:27 07/29/18 13:27 General appearance: PRESENT: obese Head exam: PRESENT: atraumatic, normocephalic Respiratory exam: PRESENT: clear to auscultation ernesto. ABSENT: rales, rhonchi, wheezes Cardiovascular exam: PRESENT: RRR. ABSENT: diastolic murmur, rubs, systolic murmur GI/Abdominal exam: PRESENT: normal bowel sounds, soft. ABSENT: distended, guarding, mass, organolmegaly, rebound, tenderness Extremities exam: PRESENT: full ROM. ABSENT: calf tenderness, clubbing, pedal edema Neurological exam: PRESENT: alert, awake, oriented to person, oriented to place, oriented to time, oriented to situation, CN II-XII grossly intact. ABSENT: motor sensory deficit Results Laboratory Results: 07/29/18 05:07 07/29/18 12:43 Qualifiers - * PATIENT BEING DISCHARGED WITH ANY OF THE FOLLOWING DIAGNOSIS: No Acute Heart Failure - Is this a Heart Failure Patient?: No LVEF < 40%?: No- if no continue to question #3 3. Anticoagulant therapy for permanect/persistent/paraoxysmal Afib or Aflutter: N/A
== END 2018-07-29 15:30 | disposition home health service (06) ==
LOC: ER 17:03 → EH 07-28 02:02 → 4N 07-28 03:30
PROVIDERS: ADMIT Emergency Medicine; ATTEND Emergency Medicine
DX: A04.72 Enterocolitis due to Clostridium difficile, not specified as recurrent (principal); I11.0 Hypertensive heart disease with heart failure; I50.32 Chronic diastolic (congestive) heart failure; E11.9 Type 2 diabetes mellitus without complications; J44.9 Chronic obstructive pulmonary disease, unspecified; E66.9 Obesity, unspecified; E78.5 Hyperlipidemia, unspecified; R09.02 Hypoxemia; R06.89 Other abnormalities of breathing; E86.0 Dehydration; D72.829 Elevated white blood cell count, unspecified; E87.6 Hypokalemia; Z99.81 Dependence on supplemental oxygen; Z79.82 Long term (current) use of aspirin; Z79.02 Long term (current) use of antithrombotics/antiplatelets; Z87.891 Personal history of nicotine dependence; Z82.49 Family history of ischemic heart disease and other diseases of the circulatory system
CPT/HCPCS: 93005; 99284; 96361; 96375; 96365; 96366; 36415 ×3; 87045; 87205; 82962 ×2; 82803 ×2; 80162 ×2; 83735 ×3; 84132; 85025 ×3; 85610; 82272; 80048 ×2; 80053; 87493; 83605; 93010; 36600; 94660 ×2; 94640 ×2; G0378 ×3; A9270 ×18; J3475; J3490 ×9; J3480 ×3; J3370 ×2; J7120; J1815

== ENCOUNTER 2019-01-19 09:35 | Emergency (ER) | payer MEDICARE, BC ==
--- NOTE | 2019-01-19 10:10 | ER Document Report ---
ED Medical Screen (RME) - General Chief Complaint: Leg Swelling Stated Complaint: LEG SWELLING Time Seen by Provider: 01/19/19 10:03 Mode of Arrival: Wheelchair Information source: Patient, Relative Notes: 68-year-old male with history of diabetes CHF atrial fibrillation's emergency department with complaints of 13 pound weight gain in the past week no urine output for the past 24 hours. Reports he is been taking Lasix without success. Patient also reports he is been extremely thirsty drinking gallons of water. I have greeted and performed a rapid initial assessment of this patient. A comprehensive ED assessment and evaluation of the patient, analysis of test results and completion of the medical decision making process will be conducted by additional ED providers. Dictation of this chart was performed using voice recognition software; therefore, there may be some unintended grammatical errors. TRAVEL OUTSIDE OF THE [place] IN LAST 30 DAYS: No - Related Data Allergies/Adverse Reactions: No Known Allergies Allergy (Verified 06/21/18 04:09) Home Medications: Pro air. Lantus. Simvastatin. Coreg. [place]. Gabapentin. Lasix. Aspirin. Proventil. Albuterol. Symbicort. Spiriva. Eliquis Past Medical History - Social History Chew tobacco use (# tins/day): No Frequency of alcohol use: None Drug Abuse: None - Past Medical History Cardiac Medical History: Reports: Hx Atrial Fibrillation, Hx Congestive Heart Failure, Hx Coronary Artery Disease, Hx Hypercholesterolemia, Hx Hypertension Denies: Hx Heart Attack Pulmonary Medical History: Reports: Hx Bronchitis, Hx COPD, Hx Pneumonia, Hx Intubation, Hx Respiratory Failure Denies: Hx Asthma Neurological Medical History: Denies: Hx Cerebrovascular Accident, Hx Seizures Endocrine Medical History: Reports: Hx Diabetes Mellitus Type 2. Denies: Hx Diabetes Mellitus Type 1, Hx Hyperthyroidism, Hx Hypothyroidism Renal/ Medical History: Denies: Hx Peritoneal Dialysis Malignancy Medical History: Reports Hx Lymphoma GI Medical History: Denies: Hx Cirrhosis, Hx Crohn's Disease, Hx Hepatitis, Hx Hiatal Hernia, Hx Ulcer, Hx Ulcerative Colitis Musculoskeltal Medical History: Reports Hx Arthritis, Denies Hx Gout, Reports Hx Musculoskeletal Deformity, Reports Hx Musculoskeletal Trauma Skin Medical History: Denies Hx Eczema, Denies Hx Psoriasis Psychiatric Medical History: Denies: Hx Depression Traumatic Medical History: Reports: Hx Fractures. Denies: Hx Traumatic Brain Injury Infectious Medical History: Denies: Hx Hepatitis, Hx HIV Past Surgical History: Reports: Hx Neurologic Surgery - Spinal tumor removed, Hx Testicular Surgery - James's gangrene, Other - Neurosurgery for spinal tumor removal, orchiectomy for James's gangrene. Denies: Hx Open Heart Surgery, Hx Pacemaker - Immunizations Hx Diphtheria, Pertussis, Tetanus Vaccination: Yes Physical Exam - Vital signs Vitals: Pulse Resp BP 46 L 22 H 118/63 01/19/19 09:44 01/19/19 09:44 01/19/19 09:44 Course - Vital Signs Vital signs: Temp Pulse Resp BP Pulse Ox 98 F 46 L 22 H 118/63 98 01/19/19 09:54 01/19/19 09:54 01/19/19 09:54 01/19/19 09:54 01/19/19 09:54
[2019-01-19 10:46] LABS: HEMATOCRIT 33.5 % (37.9-51.0); HEMOGLOBIN 10.6 g/dL (13.5-17.0); MEAN CORPUSCULAR HEMOGLOBIN 24.7 pg (27.0-33.4); MEAN CORPUSCULAR HGB CONC 31.7 g/dL (32.0-36.0); MEAN CORPUSCULAR VOLUME 78 fl (80-97); PLATELET COUNT 225 10^3/uL (150-450); RED BLOOD COUNT 4.29 10^6/uL (4.35-5.55); RED CELL DISTRIBUTION WIDTH 18.2 % (11.5-14.0); WHITE BLOOD COUNT 15.2 10^3/uL (4.0-10.5)
[2019-01-19 10:53] LABS: VENOUS BLOOD BASE EXCESS 1.7 mmol/L; VENOUS BLOOD HCO3 30.3 mmol/L (20-32); VENOUS BLOOD PH 7.29 (7.30-7.42)
[2019-01-19 11:04] LABS: ABSOLUTE LYMPHOCYTES# (MANUAL) 0.6 10^3/uL (0.5-4.7); ABSOLUTE MONOCYTES # (MANUAL) 1.7 10^3/uL (0.1-1.4); BASOPHILS % (MANUAL) 0 % (0-2); EOSINOPHILS % (MANUAL) 0 % (0-6); LYMPHOCYTES % (MANUAL) 4 % (13-45); MONOCYTES % (MANUAL) 11 % (3-13); SEGMENTED NEUTROPHILS % (MAN) 85 % (42-78); TOTAL CELLS COUNTED 100
[2019-01-19 11:07] LABS: ANISOCYTOSIS 1+; PLATELET COMMENT ADEQUATE; POLYCHROMASIA SLIGHT
[2019-01-19 11:12] LABS: ALBUMIN 3.9 g/dL (3.5-5.0); ALKALINE PHOSPHATASE 128 U/L (38-126); ANION GAP 14 (5-19); ASPARTATE AMINO TRANSFERASE 341 U/L (17-59); BILIRUBIN,DIRECT 0.8 mg/dL (0.0-0.4); BILIRUBIN,TOTAL 1.7 mg/dL (0.2-1.3); BLOOD UREA NITROGEN 61 mg/dL (7-20); CALCIUM 8.3 mg/dL (8.4-10.2); CARBON DIOXIDE 28 mmol/L (22-30); CHLORIDE 90 mmol/L (98-107); CREATINE KINASE 58 U/L (55-170); GLUCOSE 70 mg/dL (75-110); POTASSIUM 5.9 mmol/L (3.6-5.0); TOTAL PROTEIN 6.8 g/dL (6.3-8.2)
[2019-01-19 11:21] LABS: CREATINE KINASE MB 3.37 ng/mL (<4.55)
[2019-01-19 11:27] LABS: TROPONIN I 0.101 ng/mL
--- NOTE | 2019-01-19 12:05 | RADIOLOGY REPORT (SQ) ---
EXAM DESCRIPTION: CHEST SINGLE VIEW COMPLETED DATE/TIME: 01/19/2019 11:51 am REASON FOR STUDY: SOB COMPARISON: AP view of the chest from 07/22/2018. EXAM PARAMETERS: NUMBER OF VIEWS: One view. TECHNIQUE: Single frontal radiographic view of the chest acquired. RADIATION DOSE: NA LIMITATIONS: None. FINDINGS: LUNGS AND PLEURA: Low inspiratory lung volumes without a superimposed consolidation, pleur al effusion or pneumothorax. MEDIASTINUM AND HILAR STRUCTURES: Stable mediastinal and hilar contours. HEART AND VASCULAR STRUCTURES: Stable cardiomegaly. BONES: No acute findings. HARDWARE: Implantable cardiac monitoring device projecting within the left hemithorax. OTHER: No other finding. IMPRESSION: Low inspiratory lung volumes and cardiomegaly without a superimposed acute cardiopulmona ry process. TECHNICAL DOCUMENTATION: JOB ID: [id number] [employer]- All Rights Reserved Reading location - IP/workstation name: [email or web address]
[2019-01-19] MEDS ORDERED: DEXTROSE 50%-WATER 25 GM/50 ML DISP.SYRIN IV ONE ×2 (12:42→13:47)
[2019-01-19] MEDS ORDERED: CALCIUM GLUCONATE 1000 MG/10 ML INJ IV ONE (12:45)
[2019-01-19] MEDS ORDERED: SODIUM BICARBONATE 8.4% INJ 50 MEQ/50 ML DISP.SYRIN IV ONE (12:46)
--- NOTE | 2019-01-19 12:58 | ER Document Report ---
Entered by JOSH ESQUIVEL SCRIBE 01/19/19 1238 Acting as scribe for:MAYRA BISHOP MD ED General - General Chief Complaint: Leg Swelling Stated Complaint: LEG SWELLING Time Seen by Provider: 01/19/19 10:03 Primary Care Provider: HILARIA ALFARO MD [Primary Care Provider] - Follow up as needed Mode of Arrival: Wheelchair Information source: Patient Notes: This 68 year old male presents to the emergency department today with complaints of not urinating in the last two days. Patient states he was started on lasix for his heart failure and since being on the lasix he has not been urinating. at bedside reports that when the patient was started on a diuretic in the past a similar outcome occurred. Patient is a poor historian so history is limited. TRAVEL OUTSIDE OF THE [place] IN LAST 30 DAYS: No - Related Data Allergies/Adverse Reactions: No Known Allergies Allergy (Verified 06/21/18 04:09) Home Medications: Pro air. Lantus. Simvastatin. Coreg. [place]. Gabapentin. Lasix. Aspirin. Proventil. Albuterol. Symbicort. Spiriva. Eliquis Past Medical History - General Information source: Patient, Relative - Social History Smoking Status: Current Every Day Smoker Cigarette use (# per day): Yes Chew tobacco use (# tins/day): No Smoking Education Provided: No Frequency of alcohol use: None Drug Abuse: None Occupation: retired Lives with: Family Family History: Reviewed & Not Pertinent, CAD, COPD, DM, Hypertension, Malignancy Patient has suicidal ideation: No Patient has homicidal ideation: No - Past Medical History Cardiac Medical History: Reports: Hx Atrial Fibrillation, Hx Congestive Heart Failure, Hx Coronary Artery Disease, Hx Hypercholesterolemia, Hx Hypertension Pulmonary Medical History: Reports: Hx Bronchitis, Hx COPD, Hx Pneumonia, Hx Intubation, Hx Respiratory Failure Endocrine Medical History: Reports: Hx Diabetes Mellitus Type 2 Malignancy Medical History: Reports Hx Lymphoma Musculoskeletal Medical History: Reports Hx Arthritis, Reports Hx Musculoskeletal Deformity, Reports Hx Musculoskeletal Trauma Psychiatric Medical History: Reports: Hx Depression Traumatic Medical History: Reports: Hx Fractures Past Surgical History: Reports: Hx Neurologic Surgery - Spinal tumor removed, Hx Testicular Surgery - James's gangrene, Other - Neurosurgery for spinal tumor removal, orchiectomy for James's gangrene - Immunizations Hx Diphtheria, Pertussis, Tetanus Vaccination: Yes Review of Systems - Review of Systems Constitutional: No symptoms reported EENT: No symptoms reported Cardiovascular: No symptoms reported Respiratory: No symptoms reported Gastrointestinal: No symptoms reported Genitourinary: See HPI, Other - has not urinated in two days after being started on lasix Male Genitourinary: No symptoms reported Musculoskeletal: No symptoms reported Skin: No symptoms reported Hematologic/Lymphatic: No symptoms reported Neurological/Psychological: No symptoms reported -: Yes All other systems reviewed and negative Physical Exam - Vital signs Vitals: Pulse Resp BP 46 L 22 H 118/63 01/19/19 09:44 01/19/19 09:44 01/19/19 09:44 - Notes Notes: Physical Exam: General: Alert, appears well. HEENT: Normocephalic. Atraumatic. PERRL. Extraocular movements intact. Oropharynx clear. Mouth is very dry. Neck: Supple. Non-tender. Respiratory: No respiratory distress. Clear and equal breath sounds bilaterally. Cardiovascular: Bradycardic, heart rate in the mid 30s. Irregularly irregular. Abdominal: Morbidly obese. Non-tender. No distension. Normal Bowel Sounds. Back: No gross abnormalities. Extremities: Moves all four extremities. Upper extremities: Normal inspection. Normal ROM. Lower extremities: Trace edema. Normal ROM. Neurological: Normal cognition. AAOx4. Normal speech. Psychological: Normal affect. Normal Mood. Skin: Warm. Dry. Normal color. Course - Re-evaluation Re-evalutation: 01/19/19 16:06 The patient does have pacer pads on. His heart rate remains around 40. His blood pressure is in the 110-116 systolic range. His rhythm did not really change after receiving calcium gluconate, insulin and dextrose, and bicarb. He has been accepted at [facility], and transportation is supposed to be here in about 45 minutes from now. - Vital Signs Vital signs: Temp Pulse Resp BP Pulse Ox 98 F 46 L 18 123/59 L 100 01/19/19 09:54 01/19/19 09:54 01/19/19 15:02 01/19/19 15:02 01/19/19 15:02 - Laboratory Result Diagrams: 01/19/19 10:27 01/19/19 10:27 Laboratory results interpreted by me: 01/19/19 01/19/19 01/19/19 10:27 10:27 10:27 WBC 15.2 H RBC 4.29 L Hgb 10.6 L Hct 33.5 L MCV 78 L MCH 24.7 L MCHC 31.7 L RDW 18.2 H Seg Neuts % (Manual) 85 H Lymphocytes % (Manual) 4 L Abs Neuts (Manual) 12.9 H Abs Monocytes (Manual) 1.7 H VBG pH 7.29 L VBG pCO2 64.0 H Sodium 132.0 L Potassium 5.9 H Chloride 90 L BUN 61 H Creatinine 4.37 H Est GFR ( Amer) 16 L Est GFR (MDRD) Non-Af 14 L Glucose 70 L POC Glucose Calcium 8.3 L Total Bilirubin 1.7 H Direct Bilirubin 0.8 H AST 341 H Alkaline Phosphatase 128 H NT-Pro-B Natriuret Pep Urine Protein Urine Blood Urine Bilirubin Urine Urobilinogen Ur Leukocyte Esterase 01/19/19 01/19/19 01/19/19 10:27 12:45 14:40 WBC RBC Hgb Hct MCV MCH MCHC RDW Seg Neuts % (Manual) Lymphocytes % (Manual) Abs Neuts (Manual) Abs Monocytes (Manual) VBG pH VBG pCO2 Sodium Potassium Chloride BUN Creatinine Est GFR ( Amer) Est GFR (MDRD) Non-Af Glucose POC Glucose 146 H Calcium Total Bilirubin Direct Bilirubin AST Alkaline Phosphatase NT-Pro-B Natriuret Pep 9370 H Urine Protein >=500 H Urine Blood MODERATE H Urine Bilirubin SMALL H Urine Urobilinogen 4.0 H Ur Leukocyte Esterase LARGE H - Diagnostic Test Radiology reviewed: Image reviewed, Reports reviewed - Chest x-ray shows cardiomegaly without heart failure - EKG Interpretation by Vt EKG shows normal: [place], Intervals, ST-T Waves. abnormal: QRS Complexes - Wide QRS complex Rate: Bradycardia - 43 Rhythm: Other - Complete AV block with wide QRS complex When compared to previous EKG there are: Changes noted - Transfer of Care Care transferred to following provider: Dr. Delarosa Notes: 01/19/19 15:45 Patient is pending transfer to [facility]. Critical Care Note - Critical Care Note Total time excluding time spent on procedures (mins): 55 Discharge - Discharge Clinical Impression: Third degree heart block, Bradycardia, Hyperkalemia Acute renal failure Qualifiers: Acute renal failure type: unspecified Qualified Code(s): N17.9 - Acute kidney failure, unspecified Condition: Fair Disposition: [facility] Referrals: HILARIA ALFARO MD [Primary Care Provider] - Follow up as needed Scribe Attestation: 01/19/19 14:33 I personally performed the services described in the documentation, reviewed and edited the documentation which was dictated to the scribe in my presence, and it accurately records my words and actions. I personally performed the services described in the documentation, reviewed and edited the documentation which was dictated to the scribe in my presence, and it accurately records my words and actions.
[2019-01-19 13:19] LABS: APPEARANCE,URINE CLOUDY; BILIRUBIN,URINE SMALL (NEGATIVE); COLOR,URINE AMBER; GLUCOSE, URINE NEGATIVE (NEGATIVE); KETONES,URINE NEGATIVE (NEGATIVE); LEUKOCYTE ESTERASE,URINE LARGE (NEGATIVE); NITRITE,URINE NEGATIVE (NEGATIVE); PROTEIN,URINE >=500 mg/dL (NEGATIVE); URINE SPECIFIC GRAVITY 1.016
[2019-01-19] MEDS ORDERED: INSULIN REG, HUMAN 100 UNIT/ML 3 ML VIAL (PYX) IV ONE (13:47)
[2019-01-19] MEDS ORDERED: SODIUM POLYSTYRENE SULFONATE 15 GM/60 ML PO ONE (14:35)
[2019-01-19] MEDS ORDERED: CEFTRIAXONE 1 GM/D5W RTU 1 GM/50 ML RTUPB IV ONE (14:51)
[2019-01-19] MEDS ORDERED: NORMAL SALINE 1000 ML 250 ML IV ONE (15:59)
[2019-01-19] MEDS ORDERED: PATIROMER 8.4 GM SUSP PACKET PO SCH (17:00)
[2019-01-19 17:08] VITALS: BP 123/64
--- NOTE | 2019-01-20 00:05 | EKG REPORT ---
SEVERITY:- ABNORMAL ECG - COMPLETE AV BLOCK WITH WIDE QRS COMPLEX : Confirmed by: Corina Moura MD 20-Jan-2019 00:04:20
== END 2019-01-19 17:06 | disposition short-term general hospital (02) ==
LOC: ER 09:35
DX: I44.2 Atrioventricular block, complete (principal); E87.5 Hyperkalemia; N17.9 Acute kidney failure, unspecified; I11.0 Hypertensive heart disease with heart failure; I50.9 Heart failure, unspecified; R00.1 Bradycardia, unspecified; E78.00 Pure hypercholesterolemia, unspecified; F17.210 Nicotine dependence, cigarettes, uncomplicated; J44.9 Chronic obstructive pulmonary disease, unspecified; E11.9 Type 2 diabetes mellitus without complications; Z79.4 Long term (current) use of insulin; Z79.899 Other long term (current) drug therapy; Z79.82 Long term (current) use of aspirin; Z79.01 Long term (current) use of anticoagulants; Z79.51 Long term (current) use of inhaled steroids; Z85.72 Personal history of non-Hodgkin lymphomas
CPT/HCPCS: 93005; 96376; 99285; 96375; 36415; 96365; 87086; 82553; 82962; 82550; 83735; 85025; 87088; 80053; 81001; 84484; 82803; 83880; 71045; 93010; J0610; J3490 ×2; A9270 ×2; J7030; J0696; 87186; 96361; J1815

== ENCOUNTER 2019-11-27 14:23 | Inpatient (IN) | payer MEDICARE, BC ==
[~2019-11-27 14:23] MED LIST changes: -SUCCINYLCHOLINE CHLORIDE INJ 200 MG/10 ML VIAL ONE
[2019-11-27] MEDS ORDERED: DEXTROSE 5%-WATER 500 ML with AMIODARONE HCL 900 MG IV PRN ×2 (14:54)
[2019-11-27 14:56] LABS: HEMATOCRIT 29.9 % (37.9-51.0); HEMOGLOBIN 9.5 g/dL (13.5-17.0); MEAN CORPUSCULAR HEMOGLOBIN 27.4 pg (27.0-33.4); MEAN CORPUSCULAR HGB CONC 31.7 g/dL (32.0-36.0); MEAN CORPUSCULAR VOLUME 86 fl (80-97); PLATELET COUNT 206 10^3/uL (150-450); RED BLOOD COUNT 3.46 10^6/uL (4.35-5.55); RED CELL DISTRIBUTION WIDTH 18.8 % (11.5-14.0); WHITE BLOOD COUNT 14.9 10^3/uL (4.0-10.5)
[2019-11-27] MEDS ORDERED: MORPHINE SULFATE 10 MG/ML INJ IV ONE (14:59)
[2019-11-27] MEDS ORDERED: FUROSEMIDE INJ/PF 40 MG/4 ML SDV IV ONE (14:59)
[2019-11-27 15:12] LABS: ALBUMIN 4.3 g/dL (3.5-5.0); ALKALINE PHOSPHATASE 189 U/L (38-126); ANION GAP 13 (5-19); ASPARTATE AMINO TRANSFERASE 21 U/L (17-59); BILIRUBIN,DIRECT 0.9 mg/dL (0.0-0.4); BILIRUBIN,TOTAL 1.4 mg/dL (0.2-1.3); BLOOD UREA NITROGEN 52 mg/dL (7-20); CALCIUM 8.4 mg/dL (8.4-10.2); CARBON DIOXIDE 33 mmol/L (22-30); CHLORIDE 92 mmol/L (98-107); CREATINE KINASE 93 U/L (55-170); GLUCOSE 348 mg/dL (75-110); POTASSIUM 4.5 mmol/L (3.6-5.0); TOTAL PROTEIN 6.7 g/dL (6.3-8.2)
[2019-11-27] MEDS ORDERED: AMIODARONE HCL INJ 150 MG/3 ML VIAL IV ONE ×2 (15:14→15:19)
[2019-11-27 15:24] LABS: ABSOLUTE LYMPHOCYTES# (MANUAL) 0.9 10^3/uL (0.5-4.7); ABSOLUTE MONOCYTES # (MANUAL) 0.6 10^3/uL (0.1-1.4); BAND NEUTROPHILS % (MANUAL) 1 % (3-5); BASOPHILS % (MANUAL) 0 % (0-2); EOSINOPHILS % (MANUAL) 1 % (0-6); LYMPHOCYTES % (MANUAL) 6 % (13-45); MONOCYTES % (MANUAL) 4 % (3-13); SEGMENTED NEUTROPHILS % (MAN) 88 % (42-78); TOTAL CELLS COUNTED 100
[2019-11-27 15:25] LABS: ANISOCYTOSIS 2+; OVALOCYTES SLIGHT; PLATELET COMMENT ADEQUATE
[2019-11-27 15:28] LABS: CREATINE KINASE MB 2.99 ng/mL (<4.55); TROPONIN I 0.044 ng/mL
--- NOTE | 2019-11-27 15:32 | RADIOLOGY REPORT (SQ) ---
EXAM DESCRIPTION: CHEST SINGLE VIEW IMAGES COMPLETED DATE/TIME: 11/27/2019 2:56 pm REASON FOR STUDY: cp COMPARISON: 01/19/2019 TECHNIQUE: Single frontal radiographic view of the chest acquired. NUMBER OF VIEWS: One view. LIMITATIONS: None. FINDINGS: LUNGS AND PLEURA: No pneumothorax. Mild bibasilar subsegmental atelectasis. No significa nt pleural effusion. MEDIASTINUM AND HILAR STRUCTURES: Stable. HEART AND VASCULAR STRUCTURES: Stable. BONES: No acute findings. HARDWARE: Cardiac pacer. OTHER: No other significant finding. IMPRESSION: Mild bibasilar subsegmental atelectasis. No significant pleural effusion. TECHNICAL DOCUMENTATION: JOB ID: [id number] [id number] 2010 [facility]- All Rights Reserved Reading location - IP/workstation name: [email or web address]
[2019-11-27 16:27] LABS: APPEARANCE,URINE CLEAR; BILIRUBIN,URINE NEGATIVE (NEGATIVE); COLOR,URINE YELLOW; GLUCOSE, URINE NEGATIVE (NEGATIVE); KETONES,URINE NEGATIVE (NEGATIVE); LEUKOCYTE ESTERASE,URINE NEGATIVE (NEGATIVE); NITRITE,URINE NEGATIVE (NEGATIVE); PROTEIN,URINE 30 mg/dL (NEGATIVE); URINE SPECIFIC GRAVITY 1.016
[2019-11-27 16:31] LABS: VENOUS BLOOD BASE EXCESS 5.9 mmol/L; VENOUS BLOOD PH 7.3 (7.30-7.42)
[2019-11-27 16:33] LABS: VENOUS BLOOD PCO2 71.5 mmHg (35-63)
[2019-11-27 16:36] LABS: URINE AMPHETAMINES SCREEN NEGATIVE; URINE BARBITURATES SCREEN NEGATIVE; URINE BENZODIAZEPINES SCREEN NEGATIVE; URINE COCAINE SCREEN NEGATIVE; URINE MARIJUANA (THC) SCREEN NEGATIVE; URINE METHADONE SCREEN NEGATIVE; URINE PHENCYCLIDINE SCREEN NEGATIVE
--- NOTE | 2019-11-27 17:31 | ER Document Report ---
Entered by JENIFER BARRERA SCRIBE 11/27/19 5244 Acting as scribe for:CARIE SANTOS MD ED Cardiac - General Chief Complaint: Palpitations Stated Complaint: PALPITATIONS Mode of Arrival: Medic Information source: Patient, Emergency Med Personnel Notes: This 69 year old male patient with a history of HTN, HLD, CAD, A fib on Eliquis, CHF, pacemaker, and COPD presents to the ED today via EMS with complaints of shortness of breath and right arm pain that started around 1000 this morning. Bahman vargas states that he felt fine when he went to bed last night and when he woke up this morning. He reported some chest discomfort initially, but denies any pain at this time. EMS reports that the patient was in V-tach on the monitor with a rate in the 170s upon their arrival. They administered x2 rounds of Adenosine (initially 6 mg, then 12 mg) without success, so they then administered 150 mg Amiodarone with positive conversion to a slower rate. Patient is followed by Dr. Berry for cardiology. TRAVEL OUTSIDE OF THE [place] IN LAST 30 DAYS: No - Related Data Allergies/Adverse Reactions: No Known Allergies Allergy (Verified 06/21/18 04:09) Past Medical History - Social History Smoking Status: Current Every Day Smoker Cigarette use (# per day): Yes Smoking Education Provided: No Lives with: Spouse/Significant other Family History: Reviewed & Not Pertinent, CAD, COPD, DM, Hypertension, Malignancy Patient has suicidal ideation: No Patient has homicidal ideation: No - Past Medical History Cardiac Medical History: Reports: Hx Atrial Fibrillation, Hx Congestive Heart Failure, Hx Coronary Artery Disease, Hx Hypercholesterolemia, Hx Hypertension Pulmonary Medical History: Reports: Hx Bronchitis, Hx COPD, Hx Pneumonia, Hx Intubation, Hx Respiratory Failure, Hx Sleep Apnea Endocrine Medical History: Reports: Hx Diabetes Mellitus Type 2 Malignancy Medical History: Reports Hx Lymphoma Musculoskeletal Medical History: Reports Hx Arthritis, Reports Hx Musculos keletal Deformity, Reports Hx Musculoskeletal Trauma Psychiatric Medical History: Reports: Hx Depression Traumatic Medical History: Reports: Hx Fractures Past Surgical History: Reports: Hx Neurologic Surgery - Spinal tumor removed, Hx Testicular Surgery - Orchiectomy for James's gangrene - Immunizations Hx Diphtheria, Pertussis, Tetanus Vaccination: Yes Physical Exam - Vital signs Vitals: Resp Pulse Ox 16 97 11/27/19 14:28 11/27/19 14:28 - General General appearance: Alert - HEENT Head: Normocephalic, Atraumatic Eyes: Normal Pupils: PERRL - Respiratory Respiratory status: No respiratory distress - 98% on 2L O2 via NC Chest status: Nontender Breath sounds: Decreased air movement - Diminished breath sounds in the bases Chest palpation: Normal - Cardiovascular Rhythm: Regular - ventricular-paced rhythm at 80 bpm Heart sounds: Normal auscultation, S1 appreciated, S2 appreciated Friction rub: No Gallop: None auscultated - Abdominal Inspection: Morbidly Obese Distension: Distended Bowel sounds: Normal Tenderness: Nontender Organomegaly: No organomegaly - Back Back: Normal, Nontender - Extremities General upper extremity: Normal inspection General lower extremity: Edema - 1+ edema to bilateral lower extremites - Neurological Neuro grossly intact: Yes Orientation: AAOx4 [place]ii Coma Scale Eye Opening: Spontaneous [place] Coma Scale Verbal: Oriented Lexii Coma Scale Motor: Obeys Commands Lexii Coma Scale Total: 15 - Psychological Associated symptoms: Normal affect, Normal mood - Skin Skin Temperature: Warm Skin Moisture: Dry Skin Color: Normal Course - Re-evaluation Re-evalutation: 11/27/19 20:33 Patient seen on arrival by EMS after they treated patient in the field with who had V. tach. Patient was treated with amiodarone 150 mg which converted patient to a slower rhythm where his pacemaker was then controlling patient's rhythm on arrival to the ED. Patient reports that his right arm pain and shortness of ian ath all improved with a slowing of his and controlling of his V. tach. - Vital Signs Vital signs: Temp Pulse Resp BP Pulse Ox 97.9 F 22 H 132/81 H 95 11/27/19 18:00 11/27/19 18:10 11/27/19 17:01 11/27/19 18:10 11/27/19 20:34 Vital signs stable respiratory rate 22 but blood pressure is 132/81 pulse ox 95%. - Laboratory Result Diagrams: 11/27/19 14:30 11/27/19 18:52 Laboratory results interpreted by me: 11/27/19 11/27/19 11/27/19 14:30 14:30 14:30 WBC 14.9 H RBC 3.46 L Hgb 9.5 L Hct 29.9 L MCHC 31.7 L RDW 18.8 H Seg Neuts % (Manual) 88 H Band Neutrophils % 1 L Lymphocytes % (Manual) 6 L Abs Neuts (Manual) 13.3 H VBG pCO2 VBG HCO3 Chloride 92 L Carbon Dioxide 33 H BUN 52 H Creatinine 1.72 H Est GFR ( Amer) 48 L Est GFR (MDRD) Non-Af 40 L Glucose 348 H Magnesium Total Bilirubin 1.4 H Direct Bilirubin 0.9 H Alkaline Phosphatase 189 H NT-Pro-B Natriuret Pep 4090 H Urine Protein Urine Urobilinogen 11/27/19 11/27/19 11/27/19 14:30 16:00 16:18 WBC RBC Hgb Hct MCHC RDW Seg Neuts % (Manual) Band Neutrophils % Lymphocytes % (Manual) Abs Neuts (Manual) VBG pCO2 71.5 H* VBG HCO3 34.0 H Chloride Carbon Dioxide BUN Creatinine Est GFR ( Amer) Est GFR (MDRD) Non-Af Glucose Magnesium 2.4 H Total Bilirubin Direct Bilirubin Alkaline Phosphatase NT-Pro-B Natriuret Pep Urine Protein 30 H Urine Urobilinogen 4.0 H Patient has an elevated white blood cell count of 14.9. This could be due to demargination and the stress that patient was in with severe severe ventricular tachycardia requiring chemical conversion. Patient does have elevated BNP of 4000+ glucose is 348 and a troponin leak of 0.044. Repeat troponin results pending at this time. 11/27/19 20:36 11/27/19 20:38 Patient also has elevated BUN and creatinine function consistent with acute kidney injury. - Diagnostic Test Radiology reviewed: Image reviewed, Reports reviewed Radiology results interpreted by me: 11/27/19 20:37 Chest X-Ray 11/27/19 14:27 IMPRESSION: Mild bibasilar subsegmental atelectasis. No significant pleural effusion. Chest x-ray shows cardiomegaly mild basilar subsegmental atelectasis and no acute or significant pleural effusion. - EKG Interpretation by Me Additional EKG results interpreted by me: 11/27/19 20:38 Other parameters such as ND interval and QT interval and accurate inasmuch as patient has a ventricular paced rhythm at this time. No evidence for an acute STEMI. Reviewing rhythm strips that was brought in by EMS shows that patient was in V. tach with a rate of 170 and shows improvement after the amiodarone bolus of 150 mg. - Consults Dr. Berry, Tube Operator Time consulted: 17:00 - Case discussed with Dr. Berry who reviewed rhythm strips as well as current EKG showing paced rhythm laboratories etc. and the plan was to admit patient to the IMCU under the hospitalist service. Dr. Berry will follow patient in hospital. Consulted provider: will see as inpatient Dr. Huerta, Hospitalist Time consulted: 17:25 Consulted provider: will come to ER Critical Care Note - Critical Care Note Total time excluding time spent on procedures (mins): 45 - Malignant arrhythmia with V. tach requiring amiodarone bolus and drip to control arrhythmia. Also patient with COPD and CHF exacerbation requiring O2 support. Discussion with cardiology and hospitalist regarding admission to the hospital. Discharge - Discharge Clinical Impression: Ventricular tachyarrhythmia, Morbid obesity with alveolar hypoventilation, PATEL (obstructive sleep apnea), Acute on chronic systolic CHF (congestive heart failure), Elevated troponin Congestive heart failure Qualifiers: Heart failure type: diastolic Heart failure chronicity: chronic Qualified Code(s): I50.32 - Chronic diastolic (congestive) heart failure COPD (chronic obstructive pulmonary disease) Qualifiers: COPD type: unspecified COPD Qualified Code(s): J44.9 - Chronic obstructive pulmonary disease, unspecified Condition: Critical Disposition: ADMITTED INPATIENT Admitting Provider: Bradley (Hospitalist) Unit Admitted: IMCU I personally performed the services described in the documentation, reviewed and edited the documentation which was dictated to the scribe in my presence, and it accurately records my words and actions.
--- NOTE | 2019-11-27 18:01 | Progress Note ---
Provider Note Provider Note: This note contains the most recent evaluations of this patient at [facility] in [place] and his most recent hospitalization at [facility] in [place]. Most recent hospitalization at [facility]: NAME: THEODORE SON DATE OF : 1950 PROVIDER: CHAD JAIN MD TIME D/T: 10:46 / 11:29 DATE OF ADMISSION: 01/19/2019 DATE OF DISCHARGE: 02/07/2019 DISCHARGE DIAGNOSES: 1. Complete heart block, status post pacemaker placement on 01/24/2019. 2. Ventricular tachycardia which has resolved. 3. Acute on top of chronic hypoxic respiratory failure, felt related to chronic obstructive pulmonary disease. 4. Obstructive sleep apnea, on CPAP. 5. Acute decompensated congestive heart failure which is systolic and diastolic with ejection fraction of 40%. 6. Ambulatory dysfunction. 7. Type 2 diabetes mellitus with peripheral neuropathy and hypoglycemia. 8. Hyponatremia, resolved. 9. Acute kidney injury, resolved. 10. Anemia felt of chronic illness. 11. Klebsiella pneumonia urinary tract infection, status post full course of therapy. 12. Hyperphosphatemia, resolved. 13. Persistent atrial fibrillation. At this point in time on anticoagulation due to bleeding around his pacemaker. 14. Postoperative hematoma. 15. Hyperlipidemia. 16. Gastroesophageal reflux disease. 17. Morbid obesity. Body mass index of almost 40. 18. Possible adverse reaction to Depakote which was discontinued. HISTORY OF PRESENT ILLNESS AND HOSPITALIZATION COURSE: This is a very delightful 68-year-old male patient with past medical history significant for atrial fibrillation, morbid obesity, and diabetes mellitus requiring insulin who initially presented to [facility] not feeling well. The patient was diagnosed with significant bradycardia and complete heart block, he was having acute kidney injury and hyperkalemia and he was transferred to our facility, the patient was initially admitted to the ICU, he was hydrated and he was placed on intravenous steroids. The patient was seen by Cardiology and he had a biventricular pacemaker placed on 01/24 that was complicated with some hematoma at the incision site. His anticoagulation was discontinued. The patient was kept only on aspirin for now. His hematoma has indeed improved. He was also diagnosed with UTI with Klebsiella pneumonia that was treated with IV antibiotics. The patient is afebrile. His WBC has normalized. He also had encephalopathy which felt related to multiple factors including CO2 narcosis, hypoglycemia as well as medications. We did adjust his diabetes regimen, I think we will discharge him home on 20 of Lantus, his dose to be adjusted accordingly as outpatient. The patient also had a chest x-ray that showed no evidence of pneumothorax or large effusions. He was placed on Lasix 20 mg p.o. b.i.d. Again, his dose can be adjusted accordingly as an outpatient. The patient again had improvement of his mental status, his blood sugar has been under control, indeed, I needed to change his Lantus to 20 units subcutaneously. I have made a lot of changes of his medications, Depakote was discontinued. His trazodone was discontinued. I do not think he needs any pain medications other than Tylenol for now. The patient has done well over the last 24 hours. He has been up and communicating pretty well, he needs to sleep with the BiPAP. He is on oxygen at home. Initially recommended placement to SNF however, his family insisted to take him home. I will arrange for home health. The patient has some equipment, he has BiPAP and he has oxygen. He has a very supportive family. I think he is stable for discharge today. He was up in his bed, mentating well this morning. He had a pretty good night. Eating well. No chest pain. No swelling. His vital signs and labs are stable. PHYSICAL EXAMINATION: GENERAL: He is alert, awake, mentating well with no apparent distress. VITAL SIGNS: Temperature was 36.5 degrees, pulse 61, respiratory rate 18, blood pressure was 146/51. HEENT: Atraumatic. Oral mucosa is moist. NECK: Supple. No goiter. CHEST: Clear. HEART: Regular, not tachycardic. ABDOMEN: Soft, nontender. Bowel sounds are active. MUSCULOSKELETAL EXAM: Good pulses. No clubbing or cyanosis. NEURO EXAM: Mentating well, no slurred speech or facial asymmetry. The patient has debility. No tremors or focal deficits. LABORATORY DATA: WBC was 5.8, hemoglobin 9.6, platelet count 149,000. Sodium 140, potassium 4.1, BUN of 24, creatinine of 0.88. Phosphorus was 3.5 with magnesium of 1.8. Blood sugar 220 and 240. Blood cultures negative. DIAGNOSTIC DATA: Echocardiogram on 01/20 showed ejection fraction of 40%- 45% with some global hypokinesia. The patient has trace mitral regurgitation. CONSULTS: 1. Physical therapy. 2. Cardiology service. 3. EP service. DISPOSITION: Home today with home health. MEDICATIONS: Please refer to the medication reconciliation form that was on the chart. CODE STATUS: The patient is DNR that will be honored. CONDITION ON DISCHARGE: Stable. DIET: Cardiac/1800 ADA. FOLLOW-UP: 1. Follow up with Dr. Berry from Cardiology in 1 week, he has an appointment on the 18 of February. We need to discuss and decide about his Eliquis that was held during this admission due to hematoma at his procedure site. 2. Follow up with his PCP in a week. 3. Call 911 for any emergency or unusual symptoms. 4. Check his blood sugar at least twice a day, document the readings for further adjustment of the new regimen as outpatient. 5. I did talk to the patient at length about his condition, his was at bedside. She is his main caregiver. I think he is stable for discharge. Outpatient general cardiology visit on AUG 05: 69-year-old male with history of obesity, hypertension, hyperlipidemia, diabetes, sleep apnea, COPD, heart failure with reduced ejection fraction, lymphoma and atrial fibrillation who returns today for follow-up on heart failure. He has had multiple hospitalizations for heart failure as described below. The patient has done well since the prior visit and lost 4 more pounds. He feels much better. There has been no more interim hospitalizations. He was admitted to [facility] 01/19/19 through 02/07/19 after he presented to [facility] not feeling well and was found to be in complete heart block therefore he underwent pacemaker placement on 01/24/[address] Christian. During that hospitalization he was found also to have ventricular tachycardia, decompensated heart failure, acute kidney injury. His ejection fraction was 40%. He also developed pocket hematoma at the site of the pacemaker reason why his Eliquis was held. His device interrogation in June 2019 demonstrated recurrence of his atrial fibrillation. Hospitalizations: -07/07/16 through 07/11/16 at [facility]: Decompensated heart failure. -Unknown date at [facility]: Severe infection in the scrotal area requiring surgery. -June 2018 at [facility]: Respiratory failure, anemia and paroxysmal atrial fibrillation after he was found obtunded at home. He required intubation. -01/19/19 through 02/07/19: [facility] for complete heart block, ventricular tachycardia, acute on chronic hypoxemic respiratory failure secondary to COPD, acute decompensated heart failure. Current Meds 1. Albuterol Sulfate (2.5 MG/3ML) 0.083% Inhalation Nebulization Solution; 1 UNIT EVERY 6 HOURS 2. Aspirin EC 81 MG Oral Tablet Delayed Release; 'Take 1 tablet daily' 3. BD Swab Single Use Regular PADS; 'USE 1 SWAB 3 TIMES A DAY TO CLEAN FINGER PRIOR TO CHECKING BLOOD SUGAR DX: 4. Blood Glucose Monitor System w/Device Kit; 'USE GLUCOMETER TO TEST BLOOD SUGAR 3 TIMES A DAY (CHOOSE MONITOR COVERED BY INSURANCE) DX: 5. Blood Glucose Test In Vitro Strip; 'USE 1 TEST STRIP 3 TIMES A DAY TO TEST BLOOD SUGAR (CHOOSE STRIPS COVERED BY INSURANCE) DX: 6. Carvedilol 6.25 MG Oral Tablet; TAKE ONE TABLET BY MOUTH TWICE DAILY WITH MEALS 7. Furosemide 80 MG Oral Tablet; TAKE 1 TABLET TWICE DAILY 8. Gabapentin 400 MG Oral Capsule; TAKE 1 CAPSULE 4 TIMES DAILY 9. HYDROcodone-Acetaminophen TABS 10. Lancets Ultra Fine; 'USE 1 LANCET 3 TIMES A DAY TO TEST BLOOD SUGAR DX: 11. Lantus SoloStar 100 UNIT/ML Subcutaneous Solution Pen-injector 12. Nebulizer/Tubing/Mouthpiece KIT; USE DIRECTED 13. ProAir HFA 108 (90 Base) MCG/ACT Inhalation Aerosol Solution; 2 puffs every 4-6 hours as needed 14. Proventil HFA 108 (90 Base) MCG/ACT Inhalation Aerosol Solution; 'INHALE 2 PUFFS EVERY 4 HOURS NEEDED' 15. Simvastatin 20 MG Oral Tablet; TAKE ONE TABLET BY MOUTH EVERY DAY 16. Spiriva Respimat 2.5 MCG/ACT Inhalation Aerosol Solution; INHALE 2 PUFFS ONCE DAILY 17. Symbicort 160-4.5 MCG/ACT Inhalation Aerosol; Shake well & Inhale 2 puffs twice a day. Rinse mouth after each use & Discard 3 months after removing from foil pouch Active Problems 1. Abnormal electrocardiography (794.31) (R94.31) 2. Anemia (285.9) (D64.9) 3. Atrial fibrillation (427.31) (I48.91) 4. BMI 45.0-49.9, adult (V85.42) (Z68.42) 5. CHF (congestive heart failure) (428.0) (I50.9) 6. Chronic obstructive pulmonary disease (496) (J44.9) 7. Chronic obstructive pulmonary disease (496) (J44.9) 8. Claudication (443.9) (I73.9) 9. Colon cancer screening (V76.51) (Z12.11) 10. Constipation (564.00) (K59.00) 11. Decreased pedal pulses (785.9) (R09.89) 12. Diabetes mellitus (250.00) (E11.9) 13. Diarrhea (787.91) (R19.7) 14. Diverticulosis (562.10) (K57.90) 15. Dyspnea (786.09) (R06.00) 16. Edema (782.3) (R60.9) 17. History of Encounter for antineoplastic chemotherapy (V58.11) (Z51.11) 18. Essential hypertension (401.9) (I10) 19. Exposure to hepatitis C (V01.79) (Z20.5) 20. 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 Heart failure (428.9) (I50.9) 23. Hiatal hernia (553.3) (K44.9) 24. High risk medication use (V58.69) (Z79.899) 25. HTN (hypertension) (401.9) (I10) 26. Hyperlipidemia (272.4) (E78.5) 27. Hyperlipidemia (272.4) (E78.5) 28. Hyperlipidemia, mixed (272.2) (E78.2) 29. Internal hemorrhoids (455.0) (K64.8) 30. Losing weight (783.21) (R63.4) 31. Lower back pain (724.2) (M54.5) 32. Morbid obesity (278.01) (E66.01) 33. Nausea and vomiting (787.01) (R11.2) 34. Nicotine dependence (305.1) (F17.200) 35. Non-Hodgkin's lymphoma (202.80) (C85.90) 36. PAD (peripheral artery disease) (443.9) (I73.9) 37. History of Paroxysmal atrial fibrillation (427.31) (I48.0) 38. Shortness of breath (786.05) (R06.02) 39. Sleep apnea (780.57) (G47.30) Past Medical History 1. Chronic obstructive pulmonary disease (496) (J44.9) 2. History of Encounter for antineoplastic chemotherapy (V58.11) (Z51.11) 3. Essential hypertension (401.9) (I10) 4. History of High cholesterol (272.0) (E78.00) 5. History of allergic rhinitis (V12.69) (Z87.09) 6. History of dehydration (V12.29) (Z86.39) 7. History of diabetes mellitus (V12.29) (Z86.39) 8. History of Follicular lymphoma grade II of intra-abdominal lymph nodes (V1 0.79) (Z85.79) 9. 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 History of hypertension (V12.59) (Z86.79) 11. History of sleep apnea (V13.89) (Z86.69) 12. Hyperlipidemia (272.4) (E78.5) 13. History of Open Compression Fracture Of L3 Vertebral Body 14. History of Paroxysmal atrial fibrillation (427.31) (I48.0) Adult Vital Signs Recorded: 26Jul2019 02:53PM Height: 5 ft 7 in Weight: 279 lb BMI Calculated: 43.7 BSA Calculated: 2.33 Blood Pressure: 132 / 60, LUE, Sitting Heart Rate: 80 O2 Saturation: 94, RA Physical Exam GENERAL: Disheveled. Looks chronically ill. Oriented x3. HEENT: Normocephalic, atraumatic. Pupils equal. Sclerae anicteric. Oral mucosa is dry. NECK: No JVD. No carotid bruits. LUNGS: Clear to auscultation bilaterally. Normal respiratory effort without the use of accessory muscles or intercostal retractions. CARDIOVASCULAR: Regular rate and rhythm, normal S1 and S2 without murmurs, rubs, or gallops. PMI not displaced. EXTREMITIES: Trace pitting edema bilaterally, no cyanosis, no clubbing. +2 pulses femoral and pedal pulses bilaterally. SKIN: No lesions or rashes. MUSCULOSKELETAL: No chest tenderness to palpation. NEUROLOGIC: Nonfocal. No gross sensory or motor deficits bilateral upper or lower extremities. Echocardiogram 09/03/17: - poor quality study. -Mild LVE. -The apex is not well visualized. -Ejection fraction between 40 and 45%. -Elevated filling pressures. -1 motion abnormalities cannot be excluded. -Mild LAE. -Mild MAC without stenosis. -Mild MR, mild TR, mild PI. -Trace pericardial effusion. Lexiscan nuclear stress test on 09/05/16: -Ejection fraction 31%. -Large area of inferior wall infarct, otherwise normal perfusion. -Severe acute wall hypokinesis. Echocardiogram on 07/07/16: -Poor quality study. -Mild left ventricular enlargement. -EF between 45 and 50%. -Mild concentric LVH. Impression: 1. Heart failure with reduced ejection fraction: Free of symptoms today. His weight is down 4 pounds. Recommendations: -Continue with Lasix to 80 mg twice a day. -BMP and proBNP today. -Follow-up in 6 months or sooner of any symptoms worsen. -Low sodium diet. -Daily weights and call the office immediately if weight gain of 3 pounds overnight or 5 pounds in one week. 2. Hypertension: His blood pressure is essentially at goal. Recommendations: -Continue with current medical management for now. -Follow-up as scheduled. 3. Hyperlipidemia: The patient will continue to follow-up with primary care provider. Recommendations: -Continue with current medical management. -Follow-up as scheduled. 4. Paroxysmal atrial fibrillation: The patient is now back on Eliquis. Recommendations: -Continue with current medical management. -Follow-up as scheduled. 5. Complete heart block: Status post pacemaker implantation on 01/24/19. Recommendations: -Continue to follow-up with EP as scheduled. Cardiac electrophysiology follow up on NOV 05: 69-year-old male with a history of COPD as well as complete heart block status post biventricular pacemaker placement in January 2019 seen today for follow-up in regards to his atrial dysrhythmias and device interrogation. He reports no awareness of palpitations. He denies any complaints of chest pain per se. He has ongoing compliance with his current medications. He has had no complaints of syncope. [id number] Current Meds 1. Albuterol Sulfate (2.5 MG/3ML) 0.083% Inhalation Nebulization Solution; 1 UNIT EVERY 6 HOURS 2. Aspirin EC 81 MG Oral Tablet Delayed Release; 'Take 1 tablet daily' 3. BD Swab Single Use Regular PADS; 'USE 1 SWAB 3 TIMES A DAY TO CLEAN FINGER PRIOR TO CHECKING BLOOD SUGAR DX: 4. Blood Glucose Monitor System w/Device Kit; 'USE GLUCOMETER TO TEST BLOOD SUGAR 3 TIMES A DAY (CHOOSE MONITOR COVERED BY INSURANCE) DX: 5. Blood Glucose Test In Vitro Strip; 'USE 1 TEST STRIP 3 TIMES A DAY TO TEST BLOOD SUGAR (CHOOSE STRIPS COVERED BY INSURANCE) DX: 6. Carvedilol 6.25 MG Oral Tablet; TAKE ONE TABLET BY MOUTH TWICE DAILY WITH MEALS 7. Eliquis 5 MG Oral Tablet; TAKE ONE TABLET BY MOUTH TWICE DAILY 8. Furosemide 80 MG Oral Tablet; TAKE 1 TABLET TWICE DAILY 9. Gabapentin 400 MG Oral Capsule; TAKE 1 CAPSULE 4 TIMES DAILY 10. HYDROcodone-Acetaminophen TABS 11. Lancets Ultra Fine; 'USE 1 LANCET 3 TIMES A DAY TO TEST BLOOD SUGAR DX: 12. Lantus SoloStar 100 UNIT/ML Subcutaneous Solution Pen-injector 13. Nebulizer/Tubing/Mouthpiece KIT; USE DIRECTED 14. ProAir HFA 108 (90 Base) MCG/ACT Inhalation Aerosol Solution; 2 puffs every 4-6 hours as needed 15. Proventil HFA 108 (90 Base) MCG/ACT Inhalation Aerosol Solution; 'INHALE 2 PUFFS EVERY 4 HOURS NEEDED' 16. Simvastatin 20 MG Oral Tablet; TAKE ONE TABLET BY MOUTH EVERY DAY 17. Spiriva Respimat 2.5 MCG/ACT Inhalation Aerosol Solution; INHALE 2 PUFFS ONCE DAILY 18. Symbicort 160-4.5 MCG/ACT Inhalation Aerosol; Shake well & Inhale 2 puffs twice a day. Rinse mouth after each use & Discard 3 months after removing from foil pouch 19. True Metrix Blood Glucose Test In Vitro Strip; USE ONE TEST STRIP THREE TIMES A DAY TO TEST BLOOD SUGAR 20. TRUEplus Lancets 28G; USE ONE LANCET THREE TIMES A DAY TO TEST BLOOD SUGAR 21. Unifine Pentips 32G X 4 MM; use DIRECTED once DAILY with insulin Plan Atrial fibrillation and atrial flutter is noted on device interrogation today and the patient has appropriate heart rate control. He does remain on long-term anticoagulation. At this timeframe I have discussed with the patient and his the possibility of undergoing a CTI dependent atrial flutter ablation for scientologist of sinus rhythm which would require anesthesia assistance. They would like to discuss it further with family. Ultimately he has stable heart rate control and is not necessarily urgent if he is able to tolerate ongoing anticoagulation. We have discussed no changes at this timeframe. He will follow-up with me in 6 months time. Should we decide to proceed with CTI dependent atrial flutter ablation we will make those arrangements accordingly. STUDY: Lexiscan Cardiolite MONITORING PROVIDER: Garry Hartman MD ORDERING PROVIDER: Fernando Berry MD INTERPRETING PROVIDER: Micheal Noland MD INDICATION: Congestive heart failure. Please note this study was performed in [place]. PROCEDURE: The patient underwent Lexiscan 5 mL per 10 seconds over a minute including saline and Cardiolite. The resting heart rate of 76 beats per minute martin to 88 beats per minute. Resting blood pressure 128/74 increased to 140/78. The test was stopped due to the protocol being completed. Resting ECG showed sinus rhythm with nonspecific ST changes. There were no significant changes with infusion. NUCLEAR METHODS: The patient underwent a 1-day, single isotope radionuclide stress perfusion study receiving sestamibi 11.0 mCi at rest, and sestamibi 3.54 mCi with infusion. NUCLEAR FINDINGS: The ejection fraction is 31% with severe inferior wall hypokinesis being appreciated. The perfusion images show a large area of inferior wall infarct as well as extending into the inferior apex consistent with scar formation. Other segments showed normal perfusion. The patient tolerated the procedure well, and there were no complications. IMPRESSION 1. Clinically and electrically indeterminate in the setting of Lexiscan in fusion. 2. Severely diminished ejection fraction of 31%. 3. Severe inferior wall hypokinesis with a large area of inferior wall infarct extending to the inferior apex, otherwise normal perfusion. CONCLUSION: This test is negative for ischemia with scintigraphic imaging. Based on the large area of inferior wall infarct with diminished ejection fraction, it would be rendered a high-risk assessment based on these two findings but does not show evidence of ischemia. [id number] cc: MD Garry Patterson MD
[2019-11-27] MEDS ORDERED: ONDANSETRON HCL INJ/PF 4 MG/2 ML SDV IV PRN (18:10)
[2019-11-27] MEDS ORDERED: GLUCAGON,HUMAN RECOMB 1 MG INJ IM PRN (18:22)
[2019-11-27] MEDS ORDERED: DEXTROSE 40% GEL 15 GM TUBE PO PRN ×2 (18:22)
[2019-11-27] MEDS ORDERED: DEXTROSE 50%-WATER 25 GM/50 ML DISP.SYRIN IV PRN ×2 (18:22)
[2019-11-27] MEDS ORDERED: INSULIN GLARGINE,HUM.REC.ANLOG 1,000 UNIT/10 ML VIAL (PYX) SUBCUT PRN (18:38)
[2019-11-27] MEDS ORDERED: BUSPIRONE HCL 10 MG TABLET PO ONE (18:45)
[2019-11-27] MEDS ORDERED: CARVEDILOL 6.25 MG TABLET PO ONE (18:45)
[2019-11-27] MEDS ORDERED: ATORVASTATIN CALCIUM 80 MG TABLET PO ONE (18:45)
--- NOTE | 2019-11-27 18:45 | PDOC H&P ---
History of Present Illness Admission Date/PCP: HILARIA ALFARO MD Patient complains of: chest pain History of Present Illness: THEODORE SON is a 69 year old male with PMH of HTN, HLD, morbid obesity (BMI 43), atrial fibrillation on AC, CHB s/p pacemaker, HFrEF (40%), ventricular tachycardia, PAD, Follicular Lymphoma, insulin dependent DM2, and PATEL on BIPAP who presented to the ED via EMS which CC of SOB and CP that started around 1000 this morning. He was in his usual state of health when he went to bed last night. When he woke up this morning, he reported some pressure-like chest pain associated with nausea. His called EMS. EMS reported that the patient was in V-tach on the monitor with a rate in the 170s upon their arrival. They administered 2 rounds of Adenosine (initially 6 mg, then 12 mg) without success, so they then administered 150 mg Amiodarone with subsequent conversion to a slower rate. Patient is followed by Dr. Berry for cardiology. He and his state that he has been compliant with his medication regimen and his diuretics, but continues to have progressively worsening SOB and GALLEGO which has become worse throughout the last month. He is barely able to ambulate due to the SOB. He uses a walker to get around in the house, but doesn't walk outside. He is not on home O2 therapy. Past Medical History Cardiac Medical History: Reports: Atrial Fibrillation, Congestive Heart Failure, Coronary Artery Disease, Hyperlipidema, Hypertension, Peripheral Vascular Disease Denies: Myocardial Infarction Pulmonary Medical History: Reports: Bronchitis, Chronic Obstructive Pulmonary Disease (COPD), Intubation, Pneumonia, Respiratory Failure, Sleep Apnea Denies: Asthma Neurological Medical History: Denies: Seizures Endocrine Medical History: Reports: Diabetes Mellitus Type 2 Denies: Diabetes Mellitus Type 1, Hyperthyroidism, Hypothyroidism Malignancy Medical History: Reports: Lymphoma GI Medical History: Denies: Cirrhosis, Crohn's Disease, Hepatitis, Hiatal Hernia, Ulcerative Colitis Musculoskeltal Medical History: Reports: Arthritis Denies: Gout Skin Medical History: Denies: Eczema, Psoriasis Psychiatric Medical History: Reports: Depression Traumatic Medical History: Denies: Traumatic Brain Injury Hematology: Reports: Anemia Denies: Sickle Cell Disease, Bleeding Tendencies Infectious Medical History: Denies: HIV Past Surgical History Past Surgical History: Reports: Pacemaker, Other - Neurosurgery for spinal tumor removal, orchiectomy for James's gangrene Social History Information Source: Patient Smoking Status: Current Every Day Smoker Frequency of Alcohol Use: None Hx Recreational Drug Use: No Drugs: None Hx Prescription Drug Abuse: No - Advance Directive Resuscitation Status: Full Code Surrogate healthcare decision maker:: Family History Family History: Reviewed & Not Pertinent, CAD, COPD, DM, Hypertension, Malignancy Parental Family History Reviewed: Yes Children Family History Reviewed: Yes Sibling(s) Family History Reviewed.: Yes Medication/Allergy Home Medications: Aspirin [Ecotrin 81 mg EC Tablet] 81 mg PO DAILY 06/21/18 Digoxin [Lanoxin 0.125 mg Tablet] 0.125 mg PO DAILY 06/21/18 Divalproex Sodium [Depakote] 125 mg PO QAM 06/21/18 Divalproex Sodium [Depakote] 250 mg PO QPM 06/21/18 Magnesium Oxide [Mag-Ox 400 mg Tablet] 400 mg PO DAILY 06/21/18 Metoprolol Tartrate [Lopressor 25 mg Tablet] 25 mg PO Q12 06/21/18 Albuterol Sulfate [Proair HFA Inhalation Aerosol 8.5 gm MDI] 1 puff IH Q4HP PRN 07/09/18 Albuterol Sulfate [Ventolin 0.083% Neb 2.5 mg/3 mL Ampul] 1 vial NEB Q2HP PRN 07/09/18 Apixaban [Eliquis 5 mg Tablet] 5 mg PO BID 07/09/18 Pantoprazole Sodium [Protonix [address] Tablet] 40 mg PO DAILY 07/09/18 Buspirone HCl [Buspar 10 mg Tablet] 5 mg PO Q12HP PRN #60 tablet 07/22/18 Fluticasone/Vilanterol [Breo 200-25 Mcg Ellipta 14 Dose/Dpi] 1 inh IH DAILY #1 inhaler 07/22/18 Furosemide [Lasix 40 mg Tablet] 40 mg PO BID #60 tablet 07/22/18 Gabapentin [Neurontin 100 mg Capsule] 100 mg PO Q6 #120 capsule 07/22/18 Insulin Degludec [Tresiba] 25 unit SQ QHS #3 vial 07/22/18 Prednisone [Deltasone 10 mg Tablet] 10 mg PO ASDIR PRN #5 tablet 07/22/18 Quetiapine Fumarate [Seroquel 25 mg Tablet] 25 mg PO DAILY #30 tablet 07/22/18 Tiotropium [place] [Spiriva Handihaler 5 Cap/Kit (18 Mcg/Cap)] 1 cap IH DAILY #1 kit 07/22/18 Calcium Carbonate 400 mg PO DAILY 10 Days #10 tab.chew 07/29/18 Metronidazole [Flagyl 500 mg Tablet] 500 mg PO TID 10 Days #30 tablet 07/29/18 Potassium Chloride [K-Tab ER] 20 meq PO DAILY 3 Days #3 tablet.er 07/29/18 Allergies/Adverse Reactions: No Known Allergies Allergy (Verified 06/21/18 04:09) Review of Systems All systems: reviewed and no additional remarkable complaints except as stated Constitutional: PRESENT: fatigue Cardiovascular: PRESENT: chest pain, dyspnea on exertion, edema, orthropnea. ABSENT: palpitations Respiratory: PRESENT: dyspnea. ABSENT: cough Gastrointestinal: PRESENT: nausea Integumentary: ABSENT: diaphoresis Neurological: ABSENT: dizziness Physical Exam Vital Signs: Temp Pulse Resp BP Pulse Ox 98.2 F 19 132/81 H 98 11/27/19 14:30 11/27/19 17:01 11/27/19 17:01 11/27/19 16:01 Intake & Output 11/26/19 11/27/19 11/28/19 06:59 06:59 06:59 Weight 135.6 kg General appearance: PRESENT: no acute distress, obese Eye exam: ABSENT: scleral icterus Mouth exam: PRESENT: moist Throat exam: ABSENT: post pharyngeal erythema Neck exam: PRESENT: JVD - difficult to assess due to body habitus. ABSENT: thyromegaly Respiratory exam: PRESENT: crackles, tachypnea. ABSENT: wheezes Cardiovascular exam: PRESENT: irregular rhythm GI/Abdominal exam: PRESENT: normal bowel sounds, soft. ABSENT: tenderness Rectal exam: PRESENT: deferred Extremities exam: PRESENT: pedal edema, +1 edema Neurological exam: PRESENT: alert, awake, oriented to person, oriented to place, oriented to time, oriented to situation Psychiatric exam: PRESENT: appropriate affect Skin exam: ABSENT: rash Results Laboratory Results: 11/27/19 14:30 11/27/19 14:30 11/27/19 11/27/19 11/27/19 14:30 14:30 16:00 WBC 14.9 H RBC 3.46 L Hgb 9.5 L Hct 29.9 L MCV 86 MCH 27.4 MCHC 31.7 L RDW 18.8 H Plt Count 206 Seg Neutrophils % Not Reportable VBG pH VBG pCO2 VBG HCO3 VBG Base Excess Sodium 137.5 Potassium 4.5 Chloride 92 L Carbon Dioxide 33 H Anion Gap 13 BUN 52 H Creatinine 1.72 H Est GFR ( Amer) 48 L Glucose 348 H Calcium 8.4 Total Bilirubin 1.4 H AST 21 Alkaline Phosphatase 189 H Total Protein 6.7 Albumin 4.3 Urine Color YELLOW Urine Appearance CLEAR Urine pH 5.0 Ur Specific Pelican 1.016 Urine Protein 30 H Urine Glucose (UA) NEGATIVE Urine Ketones NEGATIVE Urine Blood NEGATIVE Urine Nitrite NEGATIVE Ur Leukocyte Esterase NEGATIVE Urine WBC (Auto) 1 Urine RBC (Auto) 0 11/27/19 16:18 WBC RBC Hgb Hct MCV MCH MCHC RDW Plt Count Seg Neutrophils % VBG pH 7.30 VBG pCO2 71.5 H* VBG HCO3 34.0 H VBG Base Excess 5.9 Sodium Potassium Chloride Carbon Dioxide Anion Gap BUN Creatinine Est GFR ( Amer) Glucose Calcium Total Bilirubin AST Alkaline Phosphatase Total Protein Albumin Urine Color Urine Appearance Urine pH Ur Specific Pelican Urine Protein Urine Glucose (UA) Urine Ketones Urine Blood Urine Nitrite Ur Leukocyte Esterase Urine WBC (Auto) Urine RBC (Auto) 11/27/19 11/27/19 14:30 14:30 Creatine Kinase 93 CK-MB (CK-2) 2.99 Troponin I 0.044 Impressions: Chest X-Ray 11/27/19 14:27 IMPRESSION: Mild bibasilar subsegmental atelectasis. No significant pleural effusion. Assessment and Plan - Diagnosis (1) Ventricular tachycardia Is this a current diagnosis for this admission?: Yes (2) Acute on chronic systolic congestive heart failure, NYHA class 3 Is this a current diagnosis for this admission?: Yes (3) Elevated troponin Is this a current diagnosis for this admission?: Yes (4) Morbid obesity with BMI of 40.0-44.9, adult Is this a current diagnosis for this admission?: Yes (5) COPD (chronic obstructive pulmonary disease) Qualifiers: COPD type: unspecified COPD Qualified Code(s): J44.9 - Chronic obstructive pulmonary disease, unspecified Is this a current diagnosis for this admission?: Yes (6) Morbid obesity with alveolar hypoventilation Is this a current diagnosis for this admission?: Yes (7) PATEL (obstructive sleep apnea) Is this a current diagnosis for this admission?: Yes (8) Acute respiratory failure with hypoxia and hypercapnia Is this a current diagnosis for this admission?: Yes (9) Atrial fibrillation Qualifiers: Atrial fibrillation type: chronic Is this a current diagnosis for this admission?: Yes (10) Diabetes mellitus type 2 in obese Is this a current diagnosis for this admission?: Yes (11) History of lymphoma Is this a current diagnosis for this admission?: Yes (12) Hyperlipidemia Qualifiers: Hyperlipidemia type: unspecified Qualified Code(s): E78.5 - Hyperlipidemia, unspecified Is this a current diagnosis for this admission?: Yes (13) Hypertension Qualifiers: Hypertension type: essential hypertension Qualified Code(s): I10 - Essential (primary) hypertension Is this a current diagnosis for this admission?: Yes (14) Tobacco abuse Is this a current diagnosis for this admission?: Yes (15) JOHANNY (acute kidney injury) Is this a current diagnosis for this admission?: Yes - Plan Summary Summary: THEODORE SON is a 69 year old male with PMH of HTN, HLD, morbid obesity (BMI 43), atrial fibrillation on AC, CHB s/p pacemaker, HFrEF (40%), ventricular tachycardia, PAD, Follicular Lymphoma, insulin dependent DM2, and PATEL on BIPAP who presented to the ED via EMS which CC of SOB and CP that started around 1000 this morning. He was in his usual state of health when he went to bed last night. When he woke up this morning, he reported some pressure-like chest pain associated with nausea. His called EMS. EMS reported that the patient was in V-tach on the monitor with a rate in the 170s upon their arrival. They administered 2 rounds of Adenosine (initially 6 mg, then 12 mg) without success, so they then administered 150 mg Amiodarone with subsequent conversion to a slower rate. He is adamant that he has been compliant with his medication regimen and his diuretics, but continues to have progressively worsening SOB and GALLEGO which has become worse throughout the last month. He is barely able to ambulate due to the SOB. He uses a walker to get around in the house, but doesn' t walk outside. He is not on home O2 therapy. Ventricular Tachycardia - cardiology consulted - continue amiodarone loading as per protocol - restart home Coreg (has pacemaker in place) - replete K>4 and Mg>2 - telemetry - may require LHC to further elucidate etiology given recurrent VT, and may benefit from getting AICD Acute on Chronic Systolic Congestive Heart Failure, NYHA Class 3 - cardiology consulted - start Lasix 80 mg IV BID - Arzate catheter placed for strict I/O - goal net negative 2 L/day - 2 g/day sodium restricted diet - 2 L/day fluid restriction - daily weight - replete K>4 and Mg>2 - telemetry NSTEMI, likely type 2, demand ischemia: no evidence of ischemic changes on EKG and he is currently CP free - due to combination of VT and CHF exacerbation - trend troponin - start ASA/statin therapy Paroxysmal Atrial Fibrillation: currently rate controlled - restart home AC JOHANNY: cardiorenal syndrome due to CHF - anticipate improvement with diuresis - Arzate catheter placed for strict I/O - goal net negative 2 L/day - avoid nephrotoxins - renally dose meds DM2, insulin dependent - check HbA1c - restart home Lantus at half home dose of 40 units HS - SSI ACHS - carb controlled diet Morbid Obesity (BMI 43) - encourage weight loss Tobacco Abuse - encourage cessation - nicotine patch - Time Time Spent with patient: 35 or more minutes Anticipated Discharge Disposition: Home with Home Health Anticipated Discharge Timeframe: within 72 hours
[2019-11-27] MEDS ORDERED: NICOTINE 21 MG/24 HR PATCH.TD24 TD PRN (18:46)
[2019-11-27] MEDS ORDERED: INSULIN REG, HUMAN 100 UNIT/ML 3 ML VIAL (PYX) ONE (18:54)
[2019-11-27] MEDS: ASPIRIN 81 MG TABLET, CHEWABLE PO SCH (18:56)
[2019-11-27 19:35] LABS: ANION GAP 13 (5-19); BLOOD UREA NITROGEN 58 mg/dL (7-20); CALCIUM 8.5 mg/dL (8.4-10.2); CARBON DIOXIDE 33 mmol/L (22-30); CHLORIDE 93 mmol/L (98-107); GLUCOSE 232 mg/dL (75-110); POTASSIUM 4.6 mmol/L (3.6-5.0)
[2019-11-27 20:23] LABS: INTERNATIONAL RATION (INR) 1.48; PROTHROMBIN TIME 18.1 SEC (11.4-15.4)
[2019-11-27 20:39] LABS: PARTIAL THROMBOPLASTIN TIME 41.5 SEC (23.5-35.8)
[2019-11-27] MEDS: APIXABAN 5 MG TABLET PO SCH (21:18)
[2019-11-27] MEDS: FUROSEMIDE INJ/PF 100 MG/10 ML SDV IV SCH (21:19)
[2019-11-27] MEDS: INSULIN LISPRO 100 UNIT/ML 3 ML VIAL SUBCUT SCH (21:30)
[2019-11-27] MEDS: INSULIN GLARGINE,HUM.REC.ANLOG 1,000 UNIT/10 ML VIAL SUBCUT SCH (21:31)
[2019-11-27] MEDS ORDERED: ASPIRIN 81 MG TABLET, CHEWABLE PO ONE (21:46)
[2019-11-27] MEDS ORDERED: ASPIRIN 81 MG TABLET, CHEWABLE ONE (22:12)
[2019-11-27] MEDS ORDERED: ENOXAPARIN SODIUM INJ 150 MG/1 ML DISP.SYRIN SUBCUT SCH (23:00)
--- NOTE | 2019-11-27 23:10 | EKG REPORT ---
SEVERITY:- ABNORMAL ECG - VENTRICULAR-PACED COMPLEXES NONSPECIFIC INTRAVENTRICULAR CONDUCTION DELAY MINIMAL ST DEPRESSION, INFERIOR LEADS : Confirmed by: Corina Moura MD 27-Nov-2019 23:09:33
--- NOTE | 2019-11-27 23:10 | EKG REPORT ---
SEVERITY:- ABNORMAL ECG - VENTRICULAR-PACED COMPLEXES : Confirmed by: Corina Moura MD 27-Nov-2019 23:09:40
--- NOTE | 2019-11-28 07:51 | PDOC CONSULTATION ---
Consultation Consult Date: 11/28/19 Attending physician:: RITA SHARMA Provider Consulted: JENNA BERRY Consult reason:: HF, VT History of Present Illness Admission Date/PCP: 11/27/19 18:21 HILARIA ALFARO MD History of Present Illness: THEODORE SON is a 69 year old male with history of obesity, hypertension, hyperlipidemia, diabetes, sleep apnea, COPD, heart failure with reduced ejection fraction, lymphoma and atrial fibrillation who is consulted to our service for further evaluation of heart failure. He has had multiple hospitalizations for heart failure in the recent past the most recent of which was at [facility] 01/19/19 through 02/07/19 after he presented to [facility] not feeling well and was found to be in complete heart block therefore he underwent pacemaker placement on 01/24/[address] Christian. During that hospitalization he was found also to have ventricular tachycardia, decompensated heart failure, acute kidney injury. His ejection fraction was 40%. He also developed pocket hematoma at the site of the pacemaker reason why his Eliquis was held. His device interrogation in June 2019 demonstrated recurrence of his atrial fibrillation.he had been in his usual state of health until the day of admission when he called EMS due to pressure-like chest pain associated with nausea. EMS found the patient in ventricular tachycardia which did not respond to 2 doses of adenosine followed by 150 mg of amiodarone with resolution of the rhythm. He had an uneventful night and without further episodes of ventricular tachycardia. He is on BiPAP and easily arousable. He appears to be uncomfortable in bed however denies chest pain, shortness of breath, palpitations, dizziness or lightheadedness. His most recent pacemaker interrogation in October 2019 demonstrated atrial flutter with VT of unknown duration. He has received only 1 dose of Lasix at 2200 last night but his intake and output has not been reported yet this morning. Physical exam on 11/28/2019: GENERAL: Sleeping on a BiPAP machine but easily arousable. He is moving in bed and moans frequently, appears uncomfortable however cannot pinpoint any specific symptoms. Oriented x3 with normal mood. Disheveled and morbidly obese. HEENT: Normocephalic, atraumatic. Pupils equal. Sclerae anicteric. Oropharynx moist. NECK: Difficult to evaluate for JVD due to his body habitus. No carotid bruits. LUNGS: Mild crackles at both bases. Normal respiratory effort without the use of accessory muscles or intercostal retractions. CARDIOVASCULAR: Regular rate and rhythm, normal S1 and S2 without murmurs, rubs, or gallops. PMI not displaced. ABDOMEN: Difficult to evaluate for organomegaly given his obesity. No bruit. No splenomegaly or hepatomegaly. No abdominal aorta bruit noted. EXTREMITIES: Trace to 1+ pitting edema bilaterally, no cyanosis, no clubbing. +2 pulses femoral and pedal pulses bilaterally. MUSCULOSKELETAL: No chest tenderness to palpation. NEUROLOGIC: Nonfocal. No gross sensory or motor deficits bilateral upper or lower extremities. NAME: THEODORE SON DATE OF : 1950 PROVIDER: CHAD JAIN MD TIME D/T: 10:46 / 11:29 DATE OF ADMISSION: 01/19/2019 DATE OF DISCHARGE: 02/07/2019 DISCHARGE DIAGNOSES: 1. Complete heart block, status post pacemaker placement on 01/24/2019. 2. Ventricular tachycardia which has resolved. 3. Acute on top of chronic hypoxic respiratory failure, felt related to chronic obstructive pulmonary disease. 4. Obstructive sleep apnea, on CPAP. 5. Acute decompensated congestive heart failure which is systolic and diastolic with ejection fraction of 40%. 6. Ambulatory dysfunction. 7. Type 2 diabetes mellitus with peripheral neuropathy and hypoglycemia. 8. Hyponatremia, resolved. 9. Acute kidney injury, resolved. 10. Anemia felt of chronic illness. 11. Klebsiella pneumonia urinary tract infection, status post full course of therapy. 12. Hyperphosphatemia, resolved. 13. Persistent atrial fibrillation. At this point in time on anticoagulation due to bleeding around his pacemaker. 14. Postoperative hematoma. 15. Hyperlipidemia. 16. Gastroesophageal reflux disease. 17. Morbid obesity. Body mass index of almost 40. 18. Possible adverse reaction to Depakote which was discontinued. HISTORY OF PRESENT ILLNESS AND HOSPITALIZATION COURSE: This is a very delightful 68-year-old male patient with past medical history significant for atrial fibrillation, morbid obesity, and diabetes mellitus requiring insulin who initially presented to [facility] not feeling well. The patient was diagnosed with significant bradycardia and complete heart block, he was having acute kidney injury and hyperkalemia and he was transferred to our facility, the patient was initially admitted to the ICU, he was hydrated and he was placed on intravenous steroids. The patient was seen by Cardiology and he had a biventricular pacemaker placed on 01/24 that was complicated with some hematoma at the incision site. His anticoagulation was discontinued. The patient was kept only on aspirin for now. His hematoma has indeed improved. He was also diagnosed with UTI with Klebsiella pneumonia that was treated with IV antibiotics. The patient is afebrile. His WBC has normalized. He also had encephalopathy which felt related to multiple factors including CO2 narcosis, hypoglycemia as well as medications. We did adjust his diabetes regimen, I think we will discharge him home on 20 of Lantus, his dose to be adjusted accordingly as outpatient. The patient also had a chest x-ray that showed no evidence of pneumothorax or large effusions. He was placed on Lasix 20 mg p.o. b.i.d. Again, his dose can be adjusted accordingly as an outpatient. The patient again had improvement of his mental status, his blood sugar has been under control, indeed, I needed to change his Lantus to 20 units subcutaneously. I have made a lot of changes of his medications, Depakote was discontinued. His trazodone was discontinued. I do not think he needs any pain medications other than Tylenol for now. The patient has done well over the last 24 hours. He has been up and communicating pretty well, he needs to sleep with the BiPAP. He is on oxygen at home. Initially recommended placement to SNF however, his family insisted to take him home. I will arrange for home health. The patient has some equipment, he has BiPAP and he has oxygen. He has a very supportive family. I think he is stable for discharge today. He was up in his bed, mentating well this morning. He had a pretty good night. Eating well. No chest pain. No swelling. His vital signs and labs are stable. PHYSICAL EXAMINATION: GENERAL: He is alert, awake, mentating well with no apparent distress. VITAL SIGNS: Temperature was 36.5 degrees, pulse 61, respiratory rate 18, blood pressure was 146/51. HEENT: Atraumatic. Oral mucosa is moist. NECK: Supple. No goiter. CHEST: Clear. HEART: Regular, not tachycardic. ABDOMEN: Soft, nontender. Bowel sounds are active. MUSCULOSKELETAL EXAM: Good pulses. No clubbing or cyanosis. NEURO EXAM: Mentating well, no slurred speech or facial asymmetry. The patient has debility. No tremors or focal deficits. LABORATORY DATA: WBC was 5.8, hemoglobin 9.6, platelet count 149,000. Sodium 140, potassium 4.1, BUN of 24, creatinine of 0.88. Phosphorus was 3.5 with magnesium of 1.8. Blood sugar 220 and 240. Blood cultures negative. DIAGNOSTIC DATA: Echocardiogram on 01/20 showed ejection fraction of 40%- 45% with some global hypokinesia. The patient has trace mitral regurgitation. CONSULTS: 1. Physical therapy. 2. Cardiology service. 3. EP service. DISPOSITION: Home today with home health. MEDICATIONS: Please refer to the medication reconciliation form that was on the chart. CODE STATUS: The patient is DNR that will be honored. CONDITION ON DISCHARGE: Stable. DIET: Cardiac/1800 ADA. FOLLOW-UP: 1. Follow up with Dr. Berry from Cardiology in 1 week, he has an appointment on the 18 of February. We need to discuss and decide about his Eliquis that was held during this admission due to hematoma at his procedure site. 2. Follow up with his PCP in a week. 3. Call 911 for any emergency or unusual symptoms. 4. Check his blood sugar at least twice a day, document the readings for further adjustment of the new regimen as outpatient. 5. I did talk to the patient at length about his condition, his was at bedside. She is his main caregiver. I think he is stable for discharge. Outpatient general cardiology visit on AUG 05: 69-year-old male with history of obesity, hypertension, hyperlipidemia, diabetes, sleep apnea, COPD, heart failure with reduced ejection fraction, lymphoma and atrial fibrillation who returns today for follow-up on heart failure. He has had multiple hospitalizations for heart failure as described below. The patient has done well since the prior visit and lost 4 more pounds. He feels much better. There has been no more interim hospitalizations. He was admitted to [facility] 01/19/19 through 02/07/19 after he pres ented to [facility] not feeling well and was found to be in complete heart block therefore he underwent pacemaker placement on 01/24/[address] Christian. During that hospitalization he was found also to have ventricular tachycardia, decompensated heart failure, acute kidney injury. His ejection fraction was 40%. He also developed pocket hematoma at the site of the pacemaker reason why his Eliquis was held. His device interrogation in June 2019 demonstrated recurrence of his atrial fibrillation. Hospitalizations: -07/07/16 through 07/11/16 at [facility]: Decompensated heart failure. -Unknown date at [facility]: Severe infection in the scrotal area requiring surgery. -June 2018 at [facility]: Respiratory failure, anemia and paroxysmal atrial fibrillation after he was found obtunded at home. He required intubation. -01/19/19 through 02/07/19: [facility] for complete heart block, ventricular tachycardia, acute on chronic hypoxemic respiratory failure secondary to COPD, acute decompensated heart failure. Current Meds 1. Albuterol Sulfate (2.5 MG/3ML) 0.083% Inhalation Nebulization Solution; 1 UNIT EVERY 6 HOURS 2. Aspirin EC 81 MG Oral Tablet Delayed Release; 'Take 1 tablet daily' 3. BD Swab Single Use Regular PADS; 'USE 1 SWAB 3 TIMES A DAY TO CLEAN FINGER PRIOR TO CHECKING BLOOD SUGAR DX: E11 4. Blood Glucose Monitor System w/Device Kit; 'USE GLUCOMETER TO TEST BLOOD SUGAR 3 TIMES A DAY (CHOOSE MONITOR COVERED BY INSURANCE) DX: E11 5. Blood Glucose Test In Vitro Strip; 'USE 1 TEST STRIP 3 TIMES A DAY TO TEST BLOOD SUGAR (CHOOSE STRIPS COVERED BY INSURANCE) DX: E11 6. Carvedilol 6.25 MG Oral Tablet; TAKE ONE TABLET BY MOUTH TWICE DAILY WITH MEALS 7. Furosemide 80 MG Oral Tablet; TAKE 1 TABLET TWICE DAILY 8. Gabapentin 400 MG Oral Capsule; TAKE 1 CAPSULE 4 TIMES DAILY 9. HYDROcodone-Acetaminophen TABS 10. Lancets Ultra Fine; 'USE 1 LANCET 3 TIMES A DAY TO TEST BLOOD SUGAR DX: E11 11. Lantus SoloStar 100 UNIT/ML Subcutaneous Solution Pen-injector 12. Nebulizer/Tubing/Mouthpiece KIT; USE DIRECTED 13. ProAir HFA 108 (90 Base) MCG/ACT Inhalation Aerosol Solution; 2 puffs every 4-6 hours as needed 14. Proventil HFA 108 (90 Base) MCG/ACT Inhalation Aerosol Solution; 'INHALE 2 PUFFS EVERY 4 HOURS NEEDED' 15. Simvastatin 20 MG Oral Tablet; TAKE ONE TABLET BY MOUTH EVERY DAY 16. Spiriva Respimat 2.5 MCG/ACT Inhalation Aerosol Solution; INHALE 2 PUFFS ONCE DAILY 17. Symbicort 160-4.5 MCG/ACT Inhalation Aerosol; Shake well & Inhale 2 puffs twice a day. Rinse mouth after each use & Discard 3 months after removing from foil pouch Active Problems 1. Abnormal electrocardiography (794.31) (R94.31) 2. Anemia (285.9) (D64.9) 3. Atrial fibrillation (427.31) (I48.91) 4. BMI 45.0-49.9, adult (V85.42) (Z68.42) 5. CHF (congestive heart failure) (428.0) (I50.9) 6. Chronic obstructive pulmonary disease (496) (J44.9) 7. Chronic obstructive pulmonary disease (496) (J44.9) 8. Claudication (443.9) (I73.9) 9. Colon cancer screening (V76.51) (Z12.11) 10. Constipation (564.00) (K59.00) 11. Decreased pedal pulses (785.9) (R09.89) 12. Diabetes mellitus (250.00) (E11.9) 13. Diarrhea (787.91) (R19.7) 14. Diverticulosis (562.10) (K57.90) 15. Dyspnea (786.09) (R06.00) 16. Edema (782.3) (R60.9) 17. History of Encounter for antineoplastic chemotherapy (V58.11) (Z51.11) 18. Essential hypertension (401.9) (I10) 19. Exposure to hepatitis C (V01.79) (Z20.5) 20. 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 Heart failure (428.9) (I50.9) 23. Hiatal hernia (553.3) (K44.9) 24. High risk medication use (V58.69) (Z79.899) 25. HTN (hypertension) (401.9) (I10) 26. Hyperlipidemia (272.4) (E78.5) 27. Hyperlipidemia (272.4) (E78.5) 28. Hyperlipidemia, mixed (272.2) (E78.2) 29. Internal hemorrhoids (455.0) (K64.8) 30. Losing weight (783.21) (R63.4) 31. Lower back pain (724.2) (M54.5) 32. Morbid obesity (278.01) (E66.01) 33. Nausea and vomiting (787.01) (R11.2) 34. Nicotine dependence (305.1) (F17.200) 35. Non-Hodgkin's lymphoma (202.80) (C85.90) 36. PAD (peripheral artery disease) (443.9) (I73.9) 37. History of Paroxysmal atrial fibrillation (427.31) (I48.0) 38. Shortness of breath (786.05) (R06.02) 39. Sleep apnea (780.57) (G47.30) Past Medical History 1. Chronic obstructive pulmonary disease (496) (J44.9) 2. History of Encounter for antineoplastic chemotherapy (V58.11) (Z51.11) 3. Essential hypertension (401.9) (I10) 4. History of High cholesterol (272.0) (E78.00) 5. History of allergic rhinitis (V12.69) (Z87.09) 6. History of dehydration (V12.29) (Z86.39) 7. History of diabetes mellitus (V12.29) (Z86.39) 8. History of Follicular lymphoma grade II of intra-abdominal lymph nodes (V10.79) (Z85.79) 9. 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 History of hypertension (V12.59) (Z86.79) 11. History of sleep apnea (V13.89) (Z86.69) 12. Hyperlipidemia (272.4) (E78.5) 13. History of Open Compression Fracture Of L3 Vertebral Body 14. History of Paroxysmal atrial fibrillation (427.31) (I48.0) Adult Vital Signs Recorded: 26Jul2019 02:53PM Height: 5 ft 7 in Weight: 279 lb BMI Calculated: 43.7 BSA Calculated: 2.33 Blood Pressure: 132 / 60, LUE, Sitting Heart Rate: 80 O2 Saturation: 94, RA Physical Exam GENERAL: Disheveled. Looks chronically ill. Oriented x3. HEENT: Normocephalic, atraumatic. Pupils equal. Sclerae anicteric. Oral mucosa is dry. NECK: No JVD. No carotid bruits. LUNGS: Clear to auscultation bilaterally. Normal respiratory effort without the use of accessory muscles or intercostal retractions. CARDIOVASCULAR: Regular rate and rhythm, normal S1 and S2 without murmurs, rubs, or gallops. PMI not displaced. EXTREMITIES: Trace pitting edema bilaterally, no cyanosis, no clubbing. +2 pulses femoral and pedal pulses bilaterally. SKIN: No lesions or rashes. MUSCULOSKELETAL: No chest tenderness to palpation. NEUROLOGIC: Nonfocal. No gross sensory or motor deficits bilateral upper or lower extremities. Echocardiogram 09/03/17: - poor quality study. -Mild LVE. -The apex is not well visualized. -Ejection fraction between 40 and 45%. -Elevated filling pressures. -1 motion abnormalities cannot be excluded. -Mild LAE. -Mild MAC without stenosis. -Mild MR, mild TR, mild PI. -Trace pericardial effusion. Lexiscan nuclear stress test on 09/05/16: -Ejection fraction 31%. -Large area of inferior wall infarct, otherwise normal perfusion. -Severe acute wall hypokinesis. Echocardiogram on 07/07/16: -Poor quality study. -Mild left ventricular enlargement. -EF between 45 and 50%. -Mild concentric LVH. Impression: 1. Heart failure with reduced ejection fraction: Free of symptoms today. His weight is down 4 pounds. Recommendations: -Continue with Lasix to 80 mg twice a day. -BMP and proBNP today. -Follow-up in 6 months or sooner of any symptoms worsen. -Low sodium diet. -Daily weights and call the office immediately if weight gain of 3 pounds overnight or 5 pounds in one week. 2. Hypertension: His blood pressure is essentially at goal. Recommendations: -Continue with current medical management for now. -Follow-up as scheduled. 3. Hyperlipidemia: The patient will continue to follow-up with primary care provider. Recommendations: -Continue with current medical management. -Follow-up as scheduled. 4. Paroxysmal atrial fibrillation: The patient is now back on Eliquis. Recommendations: -Continue with current medical management. -Follow-up as scheduled. 5. Complete heart block: Status post pacemaker implantation on 01/24/19. Recommendations: -Continue to follow-up with EP as scheduled. Cardiac electrophysiology follow up on NOV 05: 69-year-old male with a history of COPD as well as complete heart block status post biventricular pacemaker placement in January 2019 seen today for follow-up in regards to his atrial dysrhythmias and device interrogation. He reports no awareness of palpitations. He denies any complaints of chest pain per se. He has ongoing compliance with his current medications. He has had no complaints of syncope. Current Meds 1. Albuterol Sulfate (2.5 MG/3ML) 0.083% Inhalation Nebulization Solution; 1 UNIT EVERY 6 HOURS 2. Aspirin EC 81 MG Oral Tablet Delayed Release; 'Take 1 tablet daily' 3. BD Swab Single Use Regular PADS; 'USE 1 SWAB 3 TIMES A DAY TO CLEAN FINGER PRIOR TO CHECKING BLOOD SUGAR DX: E11. 4. Blood Glucose Monitor System w/Device Kit; 'USE GLUCOMETER TO TEST BLOOD SUGAR 3 TIMES A DAY (CHOOSE MONITOR COVERED BY INSURANCE) DX: E11 5. Blood Glucose Test In Vitro Strip; 'USE 1 TEST STRIP 3 TIMES A DAY TO TEST BLOOD SUGAR (CHOOSE STRIPS COVERED BY INSURANCE) DX: E11. 6. Carvedilol 6.25 MG Oral Tablet; TAKE ONE TABLET BY MOUTH TWICE DAILY WITH MEALS 7. Eliquis 5 MG Oral Tablet; TAKE ONE TABLET BY MOUTH TWICE DAILY 8. Furosemide 80 MG Oral Tablet; TAKE 1 TABLET TWICE DAILY 9. Gabapentin 400 MG Oral Capsule; TAKE 1 CAPSULE 4 TIMES DAILY 10. HYDROcodone-Acetaminophen TABS 11. Lancets Ultra Fine; 'USE 1 LANCET 3 TIMES A DAY TO TEST BLOOD SUGAR DX: E11 12. Lantus SoloStar 100 UNIT/ML Subcutaneous Solution Pen-injector 13. Nebulizer/Tubing/Mouthpiece KIT; USE DIRECTED 14. ProAir HFA 108 (90 Base) MCG/ACT Inhalation Aerosol Solution; 2 puffs every 4-6 hours as needed 15. Proventil HFA 108 (90 Base) MCG/ACT Inhalation Aerosol Solution; 'INHALE 2 PUFFS EVERY 4 HOURS NEEDED' 16. Simvastatin 20 MG Oral Tablet; TAKE ONE TABLET BY MOUTH EVERY DAY 17. Spiriva Respimat 2.5 MCG/ACT Inhalation Aerosol Solution; INHALE 2 PUFFS ONCE DAILY 18. Symbicort 160-4.5 MCG/ACT Inhalation Aerosol; Shake well & Inhale 2 puffs twice a day. Rinse mouth after each use & Discard 3 months after removing from foil pouch 19. True Metrix Blood Glucose Test In Vitro Strip; USE ONE TEST STRIP THREE TIMES A DAY TO TEST BLOOD SUGAR 20. TRUEplus Lancets 28G; USE ONE LANCET THREE TIMES A DAY TO TEST BLOOD SUGAR 21. Unifine Pentips 32G X 4 MM; use DIRECTED once DAILY with insulin Plan Atrial fibrillation and atrial flutter is noted on device interrogation today and the patient has appropriate heart rate control. He does remain on long-term anticoagulation. At this timeframe I have discussed with the patient and his the possibility of undergoing a CTI dependent atrial flutter ablation for samaritan of sinus rhythm which would require anesthesia assistance. They would like to discuss it further with family. Ultimately he has stable heart rate control and is not necessarily urgent if he is able to tolerate ongoing anticoagulation. We have discussed no changes at this timeframe. He will follow-up with me in 6 months time. Should we decide to proceed with CTI dependent atrial flutter ablation we will make those arrangements accordingly. STUDY: Lexiscan Cardiolite MONITORING PROVIDER: Garry Hartman MD ORDERING PROVIDER: Jenna Berry MD INTERPRETING PROVIDER: Micheal Noland MD INDICATION: Congestive heart failure. Please note this study was performed in [place]. PROCEDURE: The patient underwent Lexiscan 5 mL per 10 seconds over a minute including saline and Cardiolite. The resting heart rate of 76 beats per minute martin to 88 beats per minute. Resting blood pressure 128/74 increased to 140/78. The test was stopped due to the protocol being completed. Resting ECG showed sinus rhythm with nonspecific ST changes. There were no significant changes with infusion. NUCLEAR METHODS: The patient underwent a 1-day, single isotope radionuclide stress perfusion study receiving sestamibi 11.0 mCi at rest, and sestamibi 3.54 mCi with infusion. NUCLEAR FINDINGS: The ejection fraction is 31% with severe inferior wall hypokinesis being appreciated. The perfusion images show a large area of inferior wall infarct as well as extending into the inferior apex consistent with scar formation. Other segments showed normal perfusion. The patient tolerated the procedure well, and there were no complications. IMPRESSION 1. Clinically and electrically indeterminate in the setting of Lexiscan infusion. 2. Severely diminished ejection fraction of 31%. 3. Severe inferior wall hypokinesis with a large area of inferior wall infarct extending to the inferior apex, otherwise normal perfusion. CONCLUSION: This test is negative for ischemia with scintigraphic imaging. Based on the large area of inferior wall infarct with diminished ejection fraction, it would be rendered a high-risk assessment based on these two findings but does not show evidence of ischemia. [facility]/[id number] cc: MD Garry Patterson MD Past Medical History Cardiac Medical History: Reports: Atrial Fibrillation, Congestive Heart Failure, Coronary Artery Disease, Hyperlipidema, Hypertension, Peripheral Vascular Disease Denies: Myocardial Infarction Pulmonary Medical History: Reports: Bronchitis, Chronic Obstructive Pulmonary Disease (COPD), Intubation, Pneumonia, Respiratory Failure, Sleep Apnea Denies: Asthma Neurological Medical History: Denies: Seizures Endocrine Medical History: Reports: Diabetes Mellitus Type 2 Denies: Diabetes Mellitus Type 1, Hyperthyroidism, Hypothyroidism Malignancy Medical History: Reports: Lymphoma GI Medical History: Denies: Cirrhosis, Crohn's Disease, Hepatitis, Hiatal Hernia, Ulcerative Colitis Musculoskeltal Medical History: Reports: Arthritis Denies: Gout Skin Medical History: Denies: Eczema, Psoriasis Psychiatric Medical History: Reports: Depression Traumatic Medical History: Denies: Traumatic Brain Injury Hematology: Reports: Anemia Denies: Sickle Cell Disease, Bleeding Tendencies Infectious Medical History: Denies: HIV Past Surgical History Past Surgical History: Reports: Pacemaker, Other - Neurosurgery for spinal tumor removal, orchiectomy for James's gangrene Social History Lives with: Spouse/Significant other Smoking Status: Current Every Day Smoker Frequency of Alcohol Use: None Hx Recreational Drug Use: No Drugs: None Hx Prescription Drug Abuse: No - Advance Directive Resuscitation Status: Full Code Family History Family History: Reviewed & Not Pertinent, CAD, COPD, DM, Hypertension, Malignancy Parental Family History Reviewed: Yes Children Family History Reviewed: Yes Sibling(s) Family History Reviewed.: Yes Medication/Allergy Home Medications: Aspirin [Ecotrin 81 mg EC Tablet] 81 mg PO DAILY 06/21/18 Digoxin [Lanoxin 0.125 mg Tablet] 0.125 mg PO DAILY 06/21/18 Divalproex Sodium [Depakote] 125 mg PO QAM 06/21/18 Divalproex Sodium [Depakote] 250 mg PO QPM 06/21/18 Magnesium Oxide [Mag-Ox 400 mg Tablet] 400 mg PO DAILY 06/21/18 Metoprolol Tartrate [Lopressor 25 mg Tablet] 25 mg PO Q12 06/21/18 Albuterol Sulfate [Proair HFA Inhalation Aerosol 8.5 gm MDI] 1 puff IH Q4HP PRN 07/09/18 Albuterol Sulfate [Ventolin 0.083% Neb 2.5 mg/3 mL Ampul] 1 vial NEB Q2HP PRN 07/09/18 Apixaban [Eliquis 5 mg Tablet] 5 mg PO BID 07/09/18 Pantoprazole Sodium [Protonix [address] Tablet] 40 mg PO DAILY 07/09/18 Buspirone HCl [Buspar 10 mg Tablet] 5 mg PO Q12HP PRN #60 tablet 07/22/18 Fluticasone/Vilanterol [Breo 200-25 Mcg Ellipta 14 Dose/Dpi] 1 inh IH DAILY #1 inhaler 07/22/18 Furosemide [Lasix 40 mg Tablet] 40 mg PO BID #60 tablet 07/22/18 Gabapentin [Neurontin 100 mg Capsule] 100 mg PO Q6 #120 capsule 07/22/18 Insulin Degludec [Tresiba] 25 unit SQ QHS #3 vial 07/22/18 Prednisone [Deltasone 10 mg Tablet] 10 mg PO ASDIR PRN #5 tablet 07/22/18 Quetiapine Fumarate [Seroquel 25 mg Tablet] 25 mg PO DAILY #30 tablet 07/22/18 Tiotropium [place] [Spiriva Handihaler 5 Cap/Kit (18 Mcg/Cap)] 1 cap IH DAILY #1 kit 07/22/18 Calcium Carbonate 400 mg PO DAILY 10 Days #10 tab.chew 07/29/18 Metronidazole [Flagyl 500 mg Tablet] 500 mg PO TID 10 Days #30 tablet 07/29/18 Potassium Chloride [K-Tab ER] 20 meq PO DAILY 3 Days #3 tablet.er 07/29/18 Allergies/Adverse Reactions: No Known Allergies Allergy (Verified 06/21/18 04:09) Physical Exam Vital Signs: Temp Pulse Resp BP Pulse Ox 97.9 F 80 11 L 117/59 L 100 10/11/20 18:00 11/28/19 01:00 11/28/19 00:55 11/28/19 01:00 11/28/19 00:55 Intake & Output 11/26/19 11/27/19 11/28/19 06:59 06:59 06:59 Intake Total 194 Output Total 650 Balance -456 Weight 135.6 kg Results Laboratory Results: 11/27/19 14:30 11/27/19 18:52 11/27/19 11/27/19 11/27/19 14:30 14:30 14:30 WBC 14.9 H RBC 3.46 L Hgb 9.5 L Hct 29.9 L MCV 86 MCH 27.4 MCHC 31.7 L RDW 18.8 H Plt Count 206 Seg Neutrophils % Not Reportable VBG pH VBG pCO2 VBG HCO3 VBG Base Excess Sodium 137.5 Potassium 4.5 Chloride 92 L Carbon Dioxide 33 H Anion Gap 13 BUN 52 H Creatinine 1.72 H Est GFR ( Amer) 48 L Glucose 348 H Calcium 8.4 Magnesium 2.4 H Total Bilirubin 1.4 H AST 21 Alkaline Phosphatase 189 H Total Protein 6.7 Albumin 4.3 Urine Color Urine Appearance Urine pH Ur Specific Roach Urine Protein Urine Glucose (UA) Urine Ketones Urine Blood Urine Nitrite Ur Leukocyte Esterase Urine WBC (Auto) Urine RBC (Auto) 11/27/19 11/27/19 11/27/19 16:00 16:18 18:52 WBC RBC Hgb Hct MCV MCH MCHC RDW Plt Count Seg Neutrophils % VBG pH 7.30 VBG pCO2 71.5 H* VBG HCO3 34.0 H VBG Base Excess 5.9 Sodium Potassium Chloride Carbon Dioxide Anion Gap BUN Creatinine Est GFR ( Amer) Glucose Calcium Magnesium 2.3 Total Bilirubin AST Alkaline Phosphatase Total Protein Albumin Urine Color YELLOW Urine Appearance CLEAR Urine pH 5.0 Ur Specific Roach 1.016 Urine Protein 30 H Urine Glucose (UA) NEGATIVE Urine Ketones NEGATIVE Urine Blood NEGATIVE Urine Nitrite NEGATIVE Ur Leukocyte Esterase NEGATIVE Urine WBC (Auto) 1 Urine RBC (Auto) 0 11/27/19 18:52 WBC RBC Hgb Hct MCV MCH MCHC RDW Plt Count Seg Neutrophils % VBG pH VBG pCO2 VBG HCO3 VBG Base Excess Sodium 138.7 Potassium 4.6 Chloride 93 L Carbon Dioxide 33 H Anion Gap 13 BUN 58 H Creatinine 1.69 H Est GFR ( Amer) 49 L Glucose 232 H Calcium 8.5 Magnesium Total Bilirubin AST Alkaline Phosphatase Total Protein Albumin Urine Color Urine Appearance Urine pH Ur Specific Roach Urine Protein Urine Glucose (UA) Urine Ketones Urine Blood Urine Nitrite Ur Leukocyte Esterase Urine WBC (Auto) Urine RBC (Auto) 11/27/19 11/27/19 11/27/19 14:30 14:30 14:30 Creatine Kinase 93 CK-MB (CK-2) 2.99 Troponin I 0.044 NT-Pro-B Natriuret Pep 4090 H 11/27/19 11/28/19 20:00 02:10 Creatine Kinase CK-MB (CK-2) Troponin I 0.473 0.681 NT-Pro-B Natriuret Pep Impressions: Chest X-Ray 11/27/19 14:27 IMPRESSION: Mild bibasilar subsegmental atelectasis. No significant pleural effusion. 11/27/19 14:30 11/27/19 18:52 MCV 86 fl (80-97) 11/27/19 14:30 MCH 27.4 pg (27.0-33.4) 11/27/19 14:30 MCHC 31.7 g/dL (32.0-36.0) L 11/27/19 14:30 RDW 18.8 % (11.5-14.0) H 11/27/19 14:30 Seg Neutrophils % Not Reportable 11/27/19 14:30 VBG pH 7.30 (7.30-7.42) 11/27/19 16:18 VBG pCO2 71.5 mmHg (35-63) H* 11/27/19 16:18 VBG HCO3 34.0 mmol/L (20-32) H 11/27/19 16:18 VBG Base Excess 5.9 mmol/L 11/27/19 16:18 Chloride 93 mmol/L (98-107) L 11/27/19 18:52 Carbon Dioxide 33 mmol/L (22-30) H 11/27/19 18:52 Anion Gap 13 (5-19) 11/27/19 18:52 Est GFR ( Amer) 49 (>60) L 11/27/19 18:52 Glucose 232 mg/dL (75-110) H 11/27/19 18:52 Calcium 8.5 mg/dL (8.4-10.2) 11/27/19 18:52 Magnesium 2.3 mg/dL (1.6-2.3) 11/27/19 18:52 Total Bilirubin 1.4 mg/dL (0.2-1.3) H 11/27/19 14:30 AST 21 U/L (17-59) 11/27/19 14:30 Alkaline Phosphatase 189 U/L (38-126) H 11/27/19 14:30 Total Protein 6.7 g/dL (6.3-8.2) 11/27/19 14:30 Albumin 4.3 g/dL (3.5-5.0) 11/27/19 14:30 Urine Color YELLOW 11/27/19 16:00 Urine Appearance CLEAR 11/27/19 16:00 Urine pH 5.0 (5.0-9.0) 11/27/19 16:00 Ur Specific Roach 1.016 11/27/19 16:00 Urine Protein 30 mg/dL (NEGATIVE) H 11/27/19 16:00 Urine Glucose (UA) NEGATIVE mg/dL (NEGATIVE) 11/27/19 16:00 Urine Ketones NEGATIVE mg/dL (NEGATIVE) 11/27/19 16:00 Urine Blood NEGATIVE (NEGATIVE) 11/27/19 16:00 Urine Nitrite NEGATIVE (NEGATIVE) 11/27/19 16:00 Ur Leukocyte Esterase NEGATIVE (NEGATIVE) 11/27/19 16:00 Urine WBC (Auto) 1 /HPF 11/27/19 16:00 Urine RBC (Auto) 0 /HPF 11/27/19 16:00 11/27/19 11/27/19 11/27/19 14:30 14:30 14:30 Creatine Kinase 93 CK-MB (CK-2) 2.99 Troponin I 0.044 NT-Pro-B Natriuret Pep 4090 H 11/27/19 11/28/19 20:00 02:10 Creatine Kinase CK-MB (CK-2) Troponin I 0.473 0.681 NT-Pro-B Natriuret Pep Current Medication List Generic Name Dose Route Start Last Admin Trade Name Freq PRN Reason Stop Dose Admin Acetaminophen 650 mg 11/27/19 18:10 Tylenol 325 Mg Tablet PO 12/27/19 18:09 Q4HP PRN FOR PAIN Apixaban 5 mg 11/27/19 22:00 11/27/19 21:18 Eliquis 5 Mg Tablet PO 12/27/19 21:59 5 mg Q12 EMIL Administration Aspirin 81 mg 11/27/19 18:30 11/27/19 18:56 Aspirin 81 Mg Chewable Tablet PO 12/27/19 18:29 81 mg DAILY EMIL Administration Atorvastatin Calcium 80 mg 11/28/19 10:00 Lipitor 80 Mg Tablet PO 12/28/19 09:59 DAILY EMIL Buspirone HCl 10 mg 11/28/19 18:00 Buspar 10 Mg Tablet PO 12/28/19 17:59 QPM EMIL Carvedilol 6.25 mg 11/28/19 10:00 Coreg 6.25 Mg Tablet PO 12/28/19 09:59 Q12 EMIL Dextrose 12.5 gm 11/27/19 18:22 Dextrose Inj 50% Syringe (25 Gm/50 Ml) IV 12/27/19 18:21 PRN PRN FOR BG 50-69 IN ALERT PATIENT Protocol Dextrose 25 gm 11/27/19 18:22 Dextrose Inj 50% Syringe (25 Gm/50 Ml) IV 12/27/19 18:21 PRN PRN PER PROTOCOL Protocol Furosemide 80 mg 11/27/19 22:00 11/27/19 21:19 Lasix Inj/Pf 100 Mg/10 Ml Sdv IV 12/27/19 21:59 80 mg Q12H EMIL Administration Glucagon 1 mg 11/27/19 18:22 Glucagen Inj 1 Mg Vial IM 12/27/19 18:21 PRN PRN Evaluate for BG < 70 Protocol Glucose 15 gm 11/27/19 18:22 Glutose 40% Gel 15 Gm Tube PO 12/27/19 18:21 PRN PRN FOR BG 50-69 IN ALERT PATIENT Protocol Glucose 30 gm 11/27/19 18:22 Glutose 40% Gel 15 Gm Tube PO 12/27/19 18:21 PRN PRN FOR BG < 50 IN ALERT PATIENT Protocol Amiodarone HCl 900 mg/ 500 mls @ 0 mls/hr 11/27/19 14:54 11/27/19 21:07 Dextrose IV 11/30/19 14:53 0.5 mg/min CONTINUOUS PRN 16.67 mls/hr THIS MED IS NOT "PRN" Titration Protocol Per Protocol Insulin Glargine 40 unit 10/11/20 22:00 11/27/19 21:31 Lantus Insulin 100 Unit/1 Ml 10 Ml SUBCUT 12/27/19 21:59 40 unit QHS EMIL Administration Insulin Human Lispro 0 - 12 unit 11/27/19 22:00 11/27/19 21:30 Humalog Insulin 100 Unit/1 Ml 3 Ml Vial SUBCUT 12/27/19 21:59 4 unit ACHS EMIL Administration Protocol Nicotine 1 each 11/27/19 18:46 11/27/19 21:18 Nicoderm 21 Mg/24 Hr Transderm Patch TD 12/27/19 18:45 1 each DAILYP PRN Administration nicotine craving Ondansetron HCl 4 mg 11/27/19 18:10 Zofran Inj/Pf 4 Mg/2 Ml Sdv IV 12/27/19 18:09 Q8HP PRN FOR NAUSEA/VOMITING Discontinued Medications Generic Name Dose Route Start Last Admin Trade Name Freq PRN Reason Stop Dose Admin Amiodarone HCl Confirm 11/27/19 15:14 11/27/19 15:34 Cordarone Inj 150 Mg/3 Ml Vial Administered 11/27/19 15:15 Not Given Dose 150 mg IV .STK-MED ONE Amiodarone HCl Confirm 11/27/19 15:19 11/27/19 15:34 Cordarone Inj 150 Mg/3 Ml Vial Administered 11/27/19 15:20 Not Given Dose 150 mg IV .STK-MED ONE Aspirin 324 mg 11/27/19 21:46 11/27/19 22:11 Aspirin 81 Mg Chewable Tablet PO 11/27/19 21:47 324 mg NOW ONE Administration Aspirin Confirm 11/27/19 22:12 11/27/19 23:06 Aspirin 81 Mg Chewable Tablet Administered 11/27/19 22:13 Not Given Dose 81 mg .ROUTE .STK-MED ONE Atorvastatin Calcium 80 mg 11/27/19 18:45 11/27/19 18:55 Lipitor 80 Mg Tablet PO 11/27/19 18:46 80 mg NOW ONE Administration Buspirone HCl 10 mg 11/27/19 18:45 11/27/19 18:55 Buspar 10 Mg Tablet PO 11/27/19 18:46 10 mg NOW ONE Administration Carvedilol 6.25 mg 11/27/19 18:45 11/27/19 18:56 Coreg 6.25 Mg Tablet PO 11/27/19 18:46 6.25 mg NOW ONE Administration Enoxaparin Sodium 130 mg 11/27/19 23:00 Lovenox Inj 150 Mg/1 Ml Disp.Syrin SUBCUT 12/27/19 22:59 Q12 EMIL Enoxaparin Sodium 130 mg 11/28/19 10:00 Lovenox Inj 150 Mg/1 Ml Disp.Syrin SUBCUT 12/28/19 09:59 Q12 EMIL Furosemide 40 mg 11/27/19 14:59 11/27/19 15:08 Lasix Inj/Pf 40 Mg/4 Ml Sdv IV 11/27/19 15:00 40 mg NOW ONE Administration Insulin Glargine 40 unit 11/27/19 18:38 Lantus (Pyxis) Insulin 100 Unit/1 Ml 10 Ml SUBCUT 11/27/19 23:59 ASDIR PRN Insulin Human Regular Confirm 11/27/19 18:54 11/27/19 19:01 Humulin R (Pyxis) Insulin 100 Unit/Ml 3ml Administered 11/27/19 18:55 Not Given Dose 1 unit .ROUTE .STK-MED ONE Morphine Sulfate 2 mg 11/27/19 14:59 11/27/19 15:07 Morphine 10 Mg/Ml Inj IV 11/27/19 15:00 2 mg NOW ONE Administration Assessment & Plan - Diagnosis (1) Heart failure with reduced ejection fraction Plan: Although his lower extremity edema is minimal, he does have a proBNP that is above his baseline associated with bibasilar crackles. The etiology of his heart failure is unclear however it may be related to his prior episodes of ventricular tachycardia and even undiagnosed coronary artery disease. He is currently on GDMT except for an VIRAJ inhibitor/ARB due to prior episodes of hypotension. Recommendations: -Continue diuresis with current doses of Lasix IV. -Start Entresto 24 mg / 26 mg as tolerated by his blood pressure and renal function. -Restrict fluid intake to 1500 cc daily. -Low sodium diet, less than 1500 mg daily. -Strict intake and output. -Daily weights. -Daily BMP and magnesium. -Echocardiogram to reassess systolic function. -Replace electrolytes as needed. (2) Elevated troponin Is this a current diagnosis for this admission?: Yes Plan: Type II CO secondary to VT versus true non-STEMI however the patient is not yet a candidate for invasive assessment at this point due to his exacerbation of heart failure. He is on GDMT. Recommendations: -Continue with current medical management. -Continue trending cardiac troponins. -If troponins continue to elevate recommend transfer to [facility]. (3) Ventricular tachycardia Is this a current diagnosis for this admission?: Yes Plan: The patient has had several episodes of ventricular tachycardia so far. His most recent pacemaker interrogation in October 2019 demonstrated episodes of ventricular tachycardia of unknown duration. This time the patient was symptomatic at home and responded nicely to 150 mg of amiodarone IV. His telemetry demonstrates a paced rhythm without further VT episodes. Given the cardiac risk factors of this patient, coronary artery disease as etiology for his VT is #1 in my differential diagnosis however the patient is not yet ready for invasive assessment. Recommendations: -Continue with current medical management. -Continue with amiodarone load IV. -Start amiodarone 400 mg p.o. twice daily once IV load is completed. -Plan to transfer the patient to [facility] for further evaluation. (4) Atrial fibrillation Qualifiers: Atrial fibrillation type: chronic Is this a current diagnosis for this admission?: Yes Plan: Continue with current medical management. (5) Hypertension Qualifiers: Hypertension type: essential hypertension Qualified Code(s): I10 - Essential (primary) hypertension Is this a current diagnosis for this admission?: Yes Plan: Currently at goal.
[2019-11-28 08:35] LABS: HEMATOCRIT 28.2 % (37.9-51.0); MEAN CORPUSCULAR HEMOGLOBIN 27.3 pg (27.0-33.4); MEAN CORPUSCULAR HGB CONC 31.8 g/dL (32.0-36.0); MEAN CORPUSCULAR VOLUME 86 fl (80-97); PLATELET COUNT 178 10^3/uL (150-450); RED BLOOD COUNT 3.29 10^6/uL (4.35-5.55); RED CELL DISTRIBUTION WIDTH 18.2 % (11.5-14.0); WHITE BLOOD COUNT 10.3 10^3/uL (4.0-10.5)
[2019-11-28 09:12] LABS: FREE T4 (FREE THYROXINE) 1.18 ng/dL (0.78-2.19)
[2019-11-28 09:26] LABS: THYROID STIMULATING HORMONE 2.09 uIU/mL (0.47-4.68)
[2019-11-28] MEDS: FUROSEMIDE INJ/PF 100 MG/10 ML SDV IV SCH (09:32)
[2019-11-28] MEDS: ACETAMINOPHEN 325 MG TABLET PO PRN ×2 (09:37→22:22)
[2019-11-28] MEDS: INSULIN LISPRO 100 UNIT/ML 3 ML VIAL SUBCUT SCH ×4 (09:40→22:20)
[2019-11-28] MEDS: APIXABAN 5 MG TABLET PO SCH ×2 (09:41→18:22)
[2019-11-28] MEDS: ATORVASTATIN CALCIUM 80 MG TABLET PO SCH (09:42)
[2019-11-28] MEDS: ASPIRIN 81 MG TABLET, CHEWABLE PO SCH (09:42)
[2019-11-28] MEDS ORDERED: CARVEDILOL 3.125 MG TABLET PO SCH (10:00)
[2019-11-28] MEDS ORDERED: CARVEDILOL 6.25 MG TABLET PO SCH (10:00)
[2019-11-28] MEDS ORDERED: ENOXAPARIN SODIUM INJ 150 MG/1 ML DISP.SYRIN SUBCUT SCH (10:00)
[2019-11-28 11:32] LABS: ANION GAP 16 (5-19); BLOOD UREA NITROGEN 67 mg/dL (7-20); CALCIUM 8.8 mg/dL (8.4-10.2); CARBON DIOXIDE 28 mmol/L (22-30); CHLORIDE 100 mmol/L (98-107); GLUCOSE 195 mg/dL (75-110); POTASSIUM 4.8 mmol/L (3.6-5.0)
[2019-11-28] MEDS ORDERED: ONDANSETRON HCL INJ/PF 4 MG/2 ML SDV IV PRN (14:00)
[2019-11-28] MEDS: AMIODARONE HCL 200 MG TABLET PO SCH (18:23)
[2019-11-28] MEDS: BUSPIRONE HCL 10 MG TABLET PO SCH (18:23)
[2019-11-28 19:52] LABS: ANION GAP 10 (5-19); BLOOD UREA NITROGEN 68 mg/dL (7-20); CALCIUM 8.2 mg/dL (8.4-10.2); CARBON DIOXIDE 36 mmol/L (22-30); CHLORIDE 90 mmol/L (98-107); GLUCOSE 169 mg/dL (75-110); POTASSIUM 4.8 mmol/L (3.6-5.0)
--- NOTE | 2019-11-28 19:53 | EKG REPORT ---
SEVERITY:- ABNORMAL ECG - VENTRICULAR-PACED COMPLEXES NONSPECIFIC INTRAVENTRICULAR CONDUCTION DELAY MINIMAL ST DEPRESSION, INFERIOR LEADS : Confirmed by: Harjinder Pierce 28-Nov-2019 19:52:36
--- NOTE | 2019-11-28 20:43 | PDOC PROGRESS REPORT ---
Subjective Progress Note for:: 11/28/19 Subjective:: NAEO, breathing improved today Reason For Visit: VENTRICULAR TACHYCARDIA, ACUTE ON CHRONIC Physical Exam Vital Signs: Temp Pulse Resp BP Pulse Ox 98.6 F 79 48 H 127/74 H 97 11/28/19 16:00 11/28/19 16:00 11/28/19 17:46 11/28/19 16:00 11/28/19 17:46 Intake & Output 11/27/19 11/28/19 11/29/19 06:59 06:59 06:59 Intake Total 194 1676 Output Total 350 520 Balance -156 1156 Weight 136.9 kg General appearance: PRESENT: no acute distress, cooperative Eye exam: PRESENT: conjunctival injection, conjunctiva pink Mouth exam: PRESENT: dry mucosa Throat exam: ABSENT: post pharyngeal erythema Neck exam: PRESENT: JVD - unable to assess due to body habitus Respiratory exam: PRESENT: clear to auscultation ernesto, unlabored Cardiovascular exam: PRESENT: RRR GI/Abdominal exam: PRESENT: normal bowel sounds, soft. ABSENT: tenderness Extremities exam: ABSENT: pedal edema Neurological exam: PRESENT: alert, awake Psychiatric exam: PRESENT: appropriate affect Skin exam: ABSENT: rash Results Laboratory Results: 11/28/19 08:23 11/28/19 19:00 11/28/19 11/28/19 11/28/19 08:23 08:23 08:23 WBC 10.3 RBC 3.29 L Hgb 9.0 L Hct 28.2 L MCV 86 MCH 27.3 MCHC 31.8 L RDW 18.2 H Plt Count 178 Sodium Potassium Chloride Carbon Dioxide Anion Gap BUN Creatinine Est GFR ( Amer) Glucose Calcium Magnesium 2.4 H TSH 2.09 Free T4 1.18 11/28/19 11/28/19 08:23 19:00 WBC RBC Hgb Hct MCV MCH MCHC RDW Plt Count Sodium 144.1 136.2 L Potassium 4.8 4.8 Chloride 100 90 L Carbon Dioxide 28 36 H Anion Gap 16 10 BUN 67 H 68 H Creatinine 1.87 H 1.81 H Est GFR ( Amer) 44 L 45 L Glucose 195 H 169 H Calcium 8.8 8.2 L Magnesium Cancelled TSH Free T4 11/27/19 11/27/19 11/27/19 14:30 14:30 14:30 Creatine Kinase 93 CK-MB (CK-2) 2.99 Troponin I 0.044 NT-Pro-B Natriuret Pep 4090 H 11/27/19 11/28/19 11/28/19 20:00 02:10 08:23 Creatine Kinase CK-MB (CK-2) Troponin I 0.473 0.681 0.594 NT-Pro-B Natriuret Pep Impressions: Chest X-Ray 11/27/19 14:27 IMPRESSION: Mild bibasilar subsegmental atelectasis. No significant pleural effusion. Assessment and Plan - Diagnosis (1) Ventricular tachycardia Is this a current diagnosis for this admission?: Yes (2) Acute on chronic systolic congestive heart failure, NYHA class 3 Is this a current diagnosis for this admission?: Yes (3) Elevated troponin Is this a current diagnosis for this admission?: Yes (4) Morbid obesity with BMI of 40.0-44.9, adult Is this a current diagnosis for this admission?: Yes (5) COPD (chronic obstructive pulmonary disease) Qualifiers: COPD type: unspecified COPD Qualified Code(s): J44.9 - Chronic obstructive pulmonary disease, unspecified Is this a current diagnosis for this admission?: Yes (6) Morbid obesity with alveolar hypoventilation Is this a current diagnosis for this admission?: Yes (7) PATEL (obstructive sleep apnea) Is this a current diagnosis for this admission?: Yes (8) Acute respiratory failure with hypoxia and hypercapnia Is this a current diagnosis for this admission?: Yes (9) Atrial fibrillation Qualifiers: Atrial fibrillation type: chronic Is this a current diagnosis for this admission?: Yes (10) Diabetes mellitus type 2 in obese Is this a current diagnosis for this admission?: Yes (11) History of lymphoma Is this a current diagnosis for this admission?: Yes (12) Hyperlipidemia Qualifiers: Hyperlipidemia type: unspecified Qualified Code(s): E78.5 - Hyperlipidemia, unspecified Is this a current diagnosis for this admission?: Yes (13) Hypertension Qualifiers: Hypertension type: essential hypertension Qualified Code(s): I10 - Essential (primary) hypertension Is this a current diagnosis for this admission?: Yes (14) Tobacco abuse Is this a current diagnosis for this admission?: Yes (15) JOHANNY (acute kidney injury) Is this a current diagnosis for this admission?: Yes - Plan Summary Summary: THEODORE SON is a 69 year old male with PMH of HTN, HLD, morbid obesity (BMI 43), atrial fibrillation on AC, CHB s/p pacemaker, HFrEF (40%), ventricular tachycardia, PAD, Follicular Lymphoma, insulin dependent DM2, OHS and PATEL on BIPAP who presented to the ED via EMS which CC of SOB and CP that started around 1000 this morning. He was in his usual state of health when he went to bed last night. When he woke up this morning, he reported some pressure-like chest pain associated with nausea. His called EMS. EMS reported that the patient was in V-tach on the monitor with a rate in the 170s upon their arrival. They administered 2 rounds of Adenosine (initially 6 mg, then 12 mg) without success, so they then administered 150 mg Amiodarone with subsequent conversion to a slower rate. He is adamant that he has been compliant with his medication regimen and his diuretics, but continues to have progressively worsening SOB and GALLEGO which has become worse throughout the last month. He is barely able to ambulate due to the SOB. He uses a walker to get around in the house, but doesn't walk outside. He is not on home O2 therapy. Ventricular Tachycardia: cardiology consulted. He will require LHC to further elucidate etiology given recurrent VT, and may benefit from getting AICD placement. Per cardiology, he is too high risk to have LHC here at [facility] and should be transferred to another facility when euvolemic and kidney function improves. It is unclear to me whether his kidney function is currently at baseline or not, and will be determined with further diuresis. - completed 24 hour amiodarone loading as per protocol, start amio 400 mg PO BID - home Coreg restarted at lower dose due to hypotension - replete K>4 and Mg>2 - telemetry - TTE pending Acute on Chronic Systolic Congestive Heart Failure, NYHA Class 3: he has been aggressively diuresed with Lasix 80 mg IV BID since admission, but now with ra pidly increasing bicarb (contraction alkalosis). Will add acetazolamide to regimen, but need to watch closely for development of acidosis and/or worsening renal function. - 2 g/day sodium restricted diet - 2 L/day fluid restriction - daily weight - replete K>4 and Mg>2 - telemetry NSTEMI, likely type 2, demand ischemia: no evidence of ischemic changes on EKG and currently CP free. However, given VT, he will absolutely need an ischemic work up with [facility]. - due to combination of VT and CHF exacerbation - troponin peaked, stopped trending - continue ASA/statin/BB therapy Paroxysmal Atrial Fibrillation: currently rate controlled - restart home AC JOHANNY versus CKD: baseline kidney function is unknown (last labs here at [facility] were a year ago and, at that time, kidney function was much worse) - he has had no change in kidney function with aggressive diuresis - monitor renal function closely - avoid nephrotoxins - renally dose meds DM2, insulin dependent: HbA1c 8.6 - restart home Lantus at half home dose of 40 units HS - SSI ACHS - carb controlled diet Morbid Obesity (BMI 43) - encourage weight loss Tobacco Abuse - encourage cessation - nicotine patch PATEL - on BIPAP at home settings while asleep Mild to Moderate Cognitive Impairment: he is very forgetful and frequently disoriented. His tells me that he frequently has sun-downing at night at home, and it's much worse in the hospital (delirium). He does not have a diagnosis of "dementia" but likely does have undiagnosed cognitive impairment, either due to Alzheimer's or Vascular dementia, versus anoxic brain injury. - delirium precautions - Time Time Spent with patient: 35 or more minutes Anticipated Discharge Disposition: Tertiary Anticipated Discharge Timeframe: within 72 hours
[2019-11-28] MEDS ORDERED: ACETAZOLAMIDE SODIUM INJ 500 MG VIAL IV SCH (22:00)
[2019-11-28] MEDS: CARVEDILOL 3.125 MG TABLET PO SCH (22:21)
[2019-11-28] MEDS: INSULIN GLARGINE,HUM.REC.ANLOG 1,000 UNIT/10 ML VIAL SUBCUT SCH (22:22)
[2019-11-28] MEDS: FUROSEMIDE INJ/PF 40 MG/4 ML SDV IV SCH (22:25)
[2019-11-29] MEDS: CARVEDILOL 3.125 MG TABLET PO SCH ×3 (02:31→21:12)
[2019-11-29] MEDS: AMIODARONE HCL 200 MG TABLET PO SCH ×2 (06:12→17:03)
[2019-11-29] MEDS: ACETAZOLAMIDE 250 MG TABLET PO SCH ×2 (06:13→21:12)
[2019-11-29 06:31] LABS: HEMATOCRIT 26.4 % (37.9-51.0); HEMOGLOBIN 8.6 g/dL (13.5-17.0); MEAN CORPUSCULAR HEMOGLOBIN 27.9 pg (27.0-33.4); MEAN CORPUSCULAR HGB CONC 32.5 g/dL (32.0-36.0); MEAN CORPUSCULAR VOLUME 86 fl (80-97); PLATELET COUNT 162 10^3/uL (150-450); RED BLOOD COUNT 3.08 10^6/uL (4.35-5.55); RED CELL DISTRIBUTION WIDTH 18.4 % (11.5-14.0); WHITE BLOOD COUNT 7.8 10^3/uL (4.0-10.5)
[2019-11-29] MEDS: APIXABAN 5 MG TABLET PO SCH ×2 (09:28→17:03)
[2019-11-29] MEDS: ATORVASTATIN CALCIUM 80 MG TABLET PO SCH (09:28)
[2019-11-29] MEDS: ASPIRIN 81 MG TABLET, CHEWABLE PO SCH (09:28)
[2019-11-29] MEDS: FUROSEMIDE INJ/PF 40 MG/4 ML SDV IV SCH ×2 (09:28→21:13)
[2019-11-29] MEDS: INSULIN LISPRO 100 UNIT/ML 3 ML VIAL SUBCUT SCH ×4 (09:28→21:13)
[2019-11-29] MEDS: SACUBITRIL/VALSARTAN 24 MG/26 MG TABLET PO SCH ×2 (09:42→17:03)
[2019-11-29] MEDS: BUSPIRONE HCL 10 MG TABLET PO SCH (17:03)
[2019-11-29] MEDS: ACETAMINOPHEN 325 MG TABLET PO PRN (17:15)
[2019-11-29 19:15] LABS: ANION GAP 12 (5-19); BLOOD UREA NITROGEN 77 mg/dL (7-20); CALCIUM 7.8 mg/dL (8.4-10.2); CARBON DIOXIDE 34 mmol/L (22-30); CHLORIDE 89 mmol/L (98-107); GLUCOSE 163 mg/dL (75-110); POTASSIUM 4.1 mmol/L (3.6-5.0)
--- NOTE | 2019-11-29 19:38 | PDOC PROGRESS REPORT ---
Subjective Progress Note for:: 11/29/19 Subjective:: Patient was seen and examined. He expressed no distress. He is on noninvasive positive pressure ventilation. Family members at bedside. Denies chest pain. Telemetry showed paced rhythm. Reason For Visit: VENTRICULAR TACHYCARDIA, ACUTE ON CHRONIC Physical Exam Vital Signs: Temp Pulse Resp BP Pulse Ox 97.1 F 82 16 99/46 L 97 11/29/19 16:54 11/29/19 16:54 11/29/19 16:54 11/29/19 16:54 11/29/19 16:54 Intake & Output 11/28/19 11/29/19 11/30/19 06:59 06:59 06:59 Intake Total 194 1926 458 Output Total 350 1520 800 Balance -156 406 -342 Weight 136.9 kg 130.8 kg General appearance: PRESENT: no acute distress, cooperative, morbidly obese, well-developed, well-nourished Head exam: PRESENT: atraumatic, normocephalic Eye exam: PRESENT: conjunctiva pale Respiratory exam: PRESENT: accessory muscle use, prolonged expiratory phas, symmetrical Cardiovascular exam: PRESENT: RRR, +S1, +S2 GI/Abdominal exam: PRESENT: distended Rectal exam: PRESENT: deferred Musculoskeletal exam: PRESENT: normal inspection Psychiatric exam: PRESENT: appropriate affect Skin exam: PRESENT: dry, intact Results Laboratory Results: 11/29/19 05:46 11/29/19 18:25 11/28/19 11/29/19 11/29/19 19:00 05:46 05:46 WBC 7.8 RBC 3.08 L Hgb 8.6 L Hct 26.4 L MCV 86 MCH 27.9 MCHC 32.5 RDW 18.4 H Plt Count 162 Sodium 136.2 L Potassium 4.8 Chloride 90 L Carbon Dioxide 36 H Anion Gap 10 BUN 68 H Creatinine 1.81 H Est GFR ( Amer) 45 L Glucose 169 H Calcium 8.2 L Magnesium 2.5 H 11/29/19 18:25 WBC RBC Hgb Hct MCV MCH MCHC RDW Plt Count Sodium 135.1 L Potassium 4.1 Chloride 89 L Carbon Dioxide 34 H Anion Gap 12 BUN 77 H Creatinine 1.94 H Est GFR ( Amer) 42 L Glucose 163 H Calcium 7.8 L Magnesium 11/27/19 11/27/19 11/27/19 14:30 14:30 14:30 Creatine Kinase 93 CK-MB (CK-2) 2.99 Troponin I 0.044 NT-Pro-B Natriuret Pep 4090 H 11/27/19 11/28/19 11/28/19 20:00 02:10 08:23 Creatine Kinase CK-MB (CK-2) Troponin I 0.473 0.681 0.594 NT-Pro-B Natriuret Pep Impressions: Chest X-Ray 11/27/19 14:27 IMPRESSION: Mild bibasilar subsegmental atelectasis. No significant pleural effusion. Assessment & Plan - Diagnosis (1) Acute exacerbation of CHF (congestive heart failure) Qualifiers: Heart failure type: systolic Qualified Code(s): I50.23 - Acute on chronic s ystolic (congestive) heart failure Is this a current diagnosis for this admission?: Yes Plan: Volume status is difficult to gauge. Patient has had good clinical response to intravenous diuresis Watch creatinine as we diurese His respiratory status is presently tenuous but is likely multifactorial with predominant component of obesity hypoventilation and possible COPD (2) Morbid obesity with alveolar hypoventilation Is this a current diagnosis for this admission?: Yes Plan: Presently being maintained on noninvasive positive pressure ventilation. (3) Arrhythmia Is this a current diagnosis for this admission?: Yes Plan: Reported to have ventricular tachycardia that responded eventually to amiodarone intravenously. Strips of this rhythm not available at the moment. Dr. Berry has made plans for cardiac catheterization for this patient to exclude ischemia as potential culprit. Patient is presently in decompensated congestive heart failure and once euvolemic this plan can be followed through as was originally planned. Patient is usually followed by [facility] system as well. So we will defer to that plan (4) Atrial fibrillation Qualifiers: Atrial fibrillation type: chronic Is this a current diagnosis for this admission?: Yes Plan: Atrial fibrillation. Systemic anticoagulation Status post biventricular pacemaker implantation Continue apixaban
--- NOTE | 2019-11-29 20:12 | XCELERA REPORT ---
[address] [address] Transthoracic Echocardiogram Report Name: THEODORE SON Age: 69 yrs Gender: Male : 1950 Patient Status: Inpatient Patient Location: [address] [place] [address] Study Date: 11/29/2019 06:05 PM Height: 70 in Weight: 301 lb BSA: 2.5 m2 Procedure: A complete two-dimensional transthoracic echocardiogram was performed (2D, M-mode, spectral and color flow Doppler). The study was technically limited with all images being suboptimal in quality. The apical views were difficult to obtain and are suboptimal in quality. Images from the parasternal window were difficult to obtain and are suboptimal in quality. The patient is in controlled a-fib during the study. Reason For Study: Ventricular tachycardia Ordering Physician: JENNA MCDONNELL Performed By: Ariane Sykes Interpretation Summary The patient is in controlled a-fib during the study. The left ventricle is moderately dilated. LV systolic function is very difficult to assess given the limitations of the study however it appears to be <35%. There is severe global hypokinesis of the left ventricle. LV diastolic function could not be adequately assessed due to atrial fibrilation. RV is borderline dilated with moderately reduced systolic function. Mild LAE. Trace to mild MR, mild TR. Mild . Suspect pulmonary hypertention however TR jet was suboptimal and cannot be used to estimate pulmonary pressures. The inferior vena cava appeared dilated and decreased < 50% with respiration (RAP 15-20 mmHg). MMode/2D Measurements & Calculations RVDd: 3.5 cm LVIDd: 6.7 cm FS: 27.6 % Ao root diam: 3.0 cm IVSd: 1.0 cm LVIDs: 4.9 cm EDV(Teich): 234.1 ml Ao root area: 6.9 cm2 LVPWd: 1.0 cm ESV(Teich): 111.4 ml LA dimension: 4.0 cm EF(Teich): 52.4 % LVOT diam: 1.7 cm LVOT area: 2.2 cm2 Doppler Measurements & Calculations MV E max evi: MV P1/2t max evi: Ao V2 max: LV V1 max P.5 cm/sec 134.8 cm/sec 216.5 cm/sec 6.3 mmHg MV P1/2t: 85.5 msec Ao max PG: LV V1 mean PG: MVA(P1/2t): 2.6 cm2 18.7 mmHg 2.7 mmHg MV dec slope: Ao V2 mean: LV V1 max: 119.0 cm/sec 125.6 cm/sec 461.5 cm/sec2 Ao mean PG: LV V1 mean: MV dec time: 0.25 sec 7.5 mmHg 73.5 cm/sec Ao V2 VTI: 44.0 cm LV V1 VTI: SIMON(I,D): 1.1 cm2 21.7 cm SIMON(V,D): 1.3 cm2 SV(LVOT): 47.9 ml PA V2 max: MV P1/2t-pr_phl: 84.8 cm/sec 85.5 msec PA max P.9 mmHg Left Ventricle The left ventricle is moderately dilated. LV systolic function is very difficult to assess given the limitations of the study however it appears to be <35%. LV diastolic function could not be adequately assessed due to atrial fibrilation. There is severe global hypokinesis of the left ventricle. Right Ventricle The right ventricle is borderline dilated. The right ventricular systolic function is moderately reduced. Atria The right atrium is normal. The left atrium is mildly dilated. The interatrial septum is difficult to see, but appears to be grossly normal. Mitral Valve There is moderate mitral leaflet calcification. There is no evidence of mitral valve prolapse. There is no mitral valve stenosis. There is a trace to mild amount of mitral regurgitation. Aortic Valve The aortic valve is heavily calcified. There is no aortic valvular vegetation. There is mild aortic stenosis. No aortic regurgitation is present. Tricuspid Valve The tricuspid valve is not well visualized, but is grossly normal. There is no tricuspid valve prolapse. There is no tricuspid stenosis. There is a mild amount of tricuspid regurgitation. Pulmonic Valve The pulmonic valve is not well visualized. Great Vessels The inferior vena cava appeared dilated and decreased < 50% with respiration (RAP 15-20 mmHg). Effusions There is no pericardial effusion. There is no pleural effusion. : JENNA MCDONNELL, Jenna
--- NOTE | 2019-11-29 20:19 | PDOC PROGRESS REPORT ---
Subjective Progress Note for:: 11/29/19 Subjective:: THEODORE SON is a 69 year old male with PMH of HTN, HLD, morbid obesity (BMI 43), atrial fibrillation on AC, CHB s/p pacemaker, HFrEF (40%), ventricular tachycardia, PAD, Follicular Lymphoma, insulin dependent DM2, and PATEL on BIPAP who presented to the ED via EMS which CC of SOB and CP that started around 1000 this morning. He was in his usual state of health when he went to bed last night. When he woke up this morning, he reported some pressure-like chest pain associated with nausea. His called EMS. EMS reported that the patient was in V-tach on the monitor with a rate in the 170s upon their arrival. They administered 2 rounds of Adenosine (initially 6 mg, then 12 mg) without success, so they then administered 150 mg Amiodarone with subsequent conversion to a slower rate. Patient is followed by Dr. Berry for cardiology. He and his state that he has been compliant with his medication regimen and his diuretics, but continues to have progressively worsening SOB and GALLEGO which has become worse throughout the last month. He is barely able to ambulate due to the SOB. He uses a walker to get around in the house, but doesn't walk outside. He is not on home O2 therapy. 11/29/19. D3 Hospital stay. He was seen and examined at bedside. On Bipap saturating 96%. Breathing is about the same as yesterday, denies any chest pain, no palpitations, no syncope. Cardiology following. Plan to continue diuresis for now, monitor Crea with diuresis. Reason For Visit: VENTRICULAR TACHYCARDIA, ACUTE ON CHRONIC Physical Exam Vital Signs: Temp Pulse Resp BP Pulse Ox 97.1 F 82 16 99/46 L 97 11/29/19 16:54 11/29/19 16:54 11/29/19 16:54 11/29/19 16:54 11/29/19 16:54 Intake & Output 11/28/19 11/29/19 11/30/19 06:59 06:59 06:59 Intake Total 194 1926 458 Output Total 350 1520 800 Balance -156 406 -342 Weight 136.9 kg 130.8 kg General appearance: PRESENT: cooperative, mild distress, obese Head exam: PRESENT: atraumatic, normocephalic Eye exam: PRESENT: EOMI, PERRLA Mouth exam: PRESENT: moist Neck exam: PRESENT: full ROM Respiratory exam: PRESENT: rales, symmetrical, tachypnea. ABSENT: wheezes Cardiovascular exam: PRESENT: RRR, +S1, +S2 Pulses: PRESENT: +2 pedal pulses bilateral GI/Abdominal exam: PRESENT: normal bowel sounds, soft. ABSENT: rebound, tenderness Extremities exam: PRESENT: full ROM, pedal edema, +1 edema Musculoskeletal exam: PRESENT: full ROM Neurological exam: PRESENT: alert, awake, oriented to person, oriented to place, oriented to time Psychiatric exam: PRESENT: normal mood Skin exam: PRESENT: normal color Results Laboratory Results: 11/29/19 05:46 11/29/19 18:25 11/28/19 11/29/19 11/29/19 19:00 05:46 05:46 WBC 7.8 RBC 3.08 L Hgb 8.6 L Hct 26.4 L MCV 86 MCH 27.9 MCHC 32.5 RDW 18.4 H Plt Count 162 Sodium 136.2 L Potassium 4.8 Chloride 90 L Carbon Dioxide 36 H Anion Gap 10 BUN 68 H Creatinine 1.81 H Est GFR ( Amer) 45 L Glucose 169 H Calcium 8.2 L Magnesium 2.5 H 11/29/19 18:25 WBC RBC Hgb Hct MCV MCH MCHC RDW Plt Count Sodium 135.1 L Potassium 4.1 Chloride 89 L Carbon Dioxide 34 H Anion Gap 12 BUN 77 H Creatinine 1.94 H Est GFR ( Amer) 42 L Glucose 163 H Calcium 7.8 L Magnesium 11/27/19 11/27/19 11/27/19 14:30 14:30 14:30 Creatine Kinase 93 CK-MB (CK-2) 2.99 Troponin I 0.044 NT-Pro-B Natriuret Pep 4090 H 11/27/19 11/28/19 11/28/19 20:00 02:10 08:23 Creatine Kinase CK-MB (CK-2) Troponin I 0.473 0.681 0.594 NT-Pro-B Natriuret Pep Impressions: Chest X-Ray 11/27/19 14:27 IMPRESSION: Mild bibasilar subsegmental atelectasis. No significant pleural effusion. Assessment and Plan - Diagnosis (1) Ventricular tachycardia Is this a current diagnosis for this admission?: Yes Plan: - has ICD - on PO amiodarone - continue carvedilol - cardio following - keep K>4, Mg >2 (2) Acute on chronic systolic congestive heart failure, NYHA class 3 Is this a current diagnosis for this admission?: Yes Plan: - EF 40% awaiting repeat Echo - has ICD - BNP 4090 - trop peaked at 0.68 trended down to 0.59 - BP borderline low - currently on 80 mg IV Lasix BID for diuresis - acetazolamide added for contraction alkalosis - started on Entresto with holding parameters - continue carvedilol, aspirin - will need cardiac cath. will likely need to be transferred for the procedure per cardio - not on spironolactone. Will discuss with cardioi - daily weights - strict IO - fluid and sodium restriction (3) NSTEMI (non-ST elevated myocardial infarction) Is this a current diagnosis for this admission?: Yes Plan: - no evidence of ischemic changes on EKG and currently CP free. However, given VT, he will absolutely need an ischemic work up with [facility]. - Trop peaked at 0.68 decreased to 0.59 - continue aspirin, carvedilol, statin (4) Atrial fibrillation Is this a current diagnosis for this admission?: Yes Plan: - continue eliquis - on amio and carvedilol (5) JOHANNY (acute kidney injury) Is this a current diagnosis for this admission?: Yes Plan: - Crea 1.72>1.94 unclear baseline - JOHANNY on top of CKD, or cardiorenal - on lasix 80 BID will stop lasix if crea is worse tomorrow - avoid nephrotoxins (6) Diabetes mellitus type 2 in obese Is this a current diagnosis for this admission?: Yes Plan: -restart home Lantus at half home dose of 40 units HS - SSI ACHS - carb controlled diet (7) Morbid obesity with BMI of 40.0-44.9, adult Is this a current diagnosis for this admission?: Yes Plan: - encouraged weight loss (8) PATEL (obstructive sleep apnea) Is this a current diagnosis for this admission?: Yes Plan: - on BIPAP (9) Tobacco abuse Is this a current diagnosis for this admission?: Yes Plan: - encourage cessation - nicotine patch - Plan Summary Summary: - Time Time Spent with patient: 35 or more minutes Anticipated Discharge Disposition: Home, Self Care Anticipated Discharge Timeframe: to be determined
[2019-11-29] MEDS: INSULIN GLARGINE,HUM.REC.ANLOG 1,000 UNIT/10 ML VIAL SUBCUT SCH (21:19)
[2019-11-30] MEDS: ACETAMINOPHEN 325 MG TABLET PO PRN ×2 (00:22→16:13)
[2019-11-30] MEDS: AMIODARONE HCL 200 MG TABLET PO SCH ×2 (06:15→17:13)
[2019-11-30 07:29] LABS: HEMATOCRIT 23.9 % (37.9-51.0); MEAN CORPUSCULAR HEMOGLOBIN 27.6 pg (27.0-33.4); MEAN CORPUSCULAR HGB CONC 32.8 g/dL (32.0-36.0); MEAN CORPUSCULAR VOLUME 84 fl (80-97); PLATELET COUNT 169 10^3/uL (150-450); RED BLOOD COUNT 2.84 10^6/uL (4.35-5.55); WHITE BLOOD COUNT 5.5 10^3/uL (4.0-10.5)
[2019-11-30 07:35] LABS: HEMOGLOBIN 7.8 g/dL (13.5-17.0)
[2019-11-30 08:26] LABS: ANION GAP 11 (5-19); BLOOD UREA NITROGEN 82 mg/dL (7-20); CALCIUM 7.7 mg/dL (8.4-10.2); CARBON DIOXIDE 33 mmol/L (22-30); CHLORIDE 93 mmol/L (98-107); GLUCOSE 80 mg/dL (75-110); POTASSIUM 3.7 mmol/L (3.6-5.0)
[2019-11-30] MEDS: INSULIN LISPRO 100 UNIT/ML 3 ML VIAL SUBCUT SCH ×4 (09:33→21:50)
[2019-11-30] MEDS: CARVEDILOL 3.125 MG TABLET PO SCH ×2 (09:34→21:55)
[2019-11-30] MEDS: SACUBITRIL/VALSARTAN 24 MG/26 MG TABLET PO SCH ×2 (09:37→17:13)
[2019-11-30] MEDS: ASPIRIN 81 MG TABLET, CHEWABLE PO SCH (09:37)
[2019-11-30] MEDS: APIXABAN 5 MG TABLET PO SCH ×2 (09:37→17:14)
[2019-11-30] MEDS: ATORVASTATIN CALCIUM 80 MG TABLET PO SCH (09:37)
[2019-11-30] MEDS: FUROSEMIDE INJ/PF 40 MG/4 ML SDV IV SCH ×2 (16:13→17:15)
[2019-11-30] MEDS: BUSPIRONE HCL 10 MG TABLET PO SCH (17:13)
--- NOTE | 2019-11-30 18:35 | PDOC PROGRESS REPORT ---
Subjective Progress Note for:: 11/30/19 Subjective:: Patient was seen and examined. No chest pain or dyspnea. No palpitations. He is intermittently on noninvasive positive pressure ventilation. Family members at bedside. Denies chest pain. Telemetry showed paced rhythm. Reason For Visit: VENTRICULAR TACHYCARDIA, ACUTE ON CHRONIC Physical Exam Vital Signs: Temp Pulse Resp BP Pulse Ox 97.4 F 78 14 138/91 H 92 11/30/19 11:37 11/30/19 14:00 11/30/19 11:37 11/30/19 11:37 11/30/19 11:37 Intake & Output 11/29/19 11/30/19 12/01/19 06:59 06:59 06:59 Intake Total 8806 340 3502 Output Total 1520 1850 Balance 406 -1152 1058 Weight 130.8 kg 132.2 kg General appearance: PRESENT: no acute distress, cooperative, obese, well- developed, well-nourished Head exam: PRESENT: atraumatic, normocephalic Eye exam: PRESENT: EOMI Respiratory exam: PRESENT: crackles, decreased breath sounds, symmetrical, unlabored Cardiovascular exam: PRESENT: RRR, +S1, +S2, systolic murmur Pulses: PRESENT: normal radial pulses GI/Abdominal exam: PRESENT: soft Rectal exam: PRESENT: deferred Musculoskeletal exam: PRESENT: normal inspection Neurological exam: PRESENT: alert, awake, oriented to person, oriented to place, oriented to time, oriented to situation Psychiatric exam: PRESENT: appropriate affect Skin exam: PRESENT: dry, intact, normal color Additional comments: Permanent pacemaker implant site left upper chest wall infraclavicular well- healed with no edema erythema or excoriation Noninvasive BiPAP mask noted. Significantly obese body habitus with suboptimal physical exam especially auscultatory findings Results Laboratory Results: 11/30/19 06:41 11/30/19 06:41 11/29/19 11/30/19 11/30/19 18:25 06:41 06:41 WBC 5.5 RBC 2.84 L Hgb 7.8 L Hct 23.9 L MCV 84 MCH 27.6 MCHC 32.8 RDW 18.0 H Plt Count 169 Sodium 135.1 L Potassium 4.1 Chloride 89 L Carbon Dioxide 34 H Anion Gap 12 BUN 77 H Creatinine 1.94 H Est GFR ( Amer) 42 L Glucose 163 H Calcium 7.8 L Magnesium 2.5 H 11/30/19 06:41 WBC RBC Hgb Hct MCV MCH MCHC RDW Plt Count Sodium 137.1 Potassium 3.7 Chloride 93 L Carbon Dioxide 33 H Anion Gap 11 BUN 82 H Creatinine 1.97 H Est GFR ( Amer) 41 L Glucose 80 Calcium 7.7 L Magnesium 11/27/19 11/27/19 11/27/19 14:30 14:30 14:30 Creatine Kinase 93 CK-MB (CK-2) 2.99 Troponin I 0.044 NT-Pro-B Natriuret Pep 4090 H 11/27/19 11/28/19 11/28/19 20:00 02:10 08:23 Creatine Kinase CK-MB (CK-2) Troponin I 0.473 0.681 0.594 NT-Pro-B Natriuret Pep Impressions: Chest X-Ray 11/27/19 14:27 IMPRESSION: Mild bibasilar subsegmental atelectasis. No significant pleural effusion. Assessment & Plan - Diagnosis (1) Acute exacerbation of CHF (congestive heart failure) Qualifiers: Heart failure type: systolic Qualified Code(s): I50.23 - Acute on chronic systolic (congestive) heart failure Is this a current diagnosis for this admission?: Yes Plan: Volume status is difficult to gauge. Patient has had good clinical response to intravenous diuresis Watch creatinine as we diurese His respiratory status is presently tenuous but is likely multifactorial with predominant component of obesity hypoventilation and possible COPD (2) Morbid obesity with alveolar hypoventilation Is this a current diagnosis for this admission?: Yes Plan: Presently being maintained on noninvasive positive pressure ventilation. (3) Arrhythmia Is this a current diagnosis for this admission?: Yes Plan: Reported to have ventricular tachycardia. I was able to review strips pertaining to the arrhythmia which indicate wide-complex rhythm at approximately 1 70-1 80 beats per minutes This is ventricular tachycardia on lites otherwise program. This also terminated with amiodarone. Other arrhythmias including atrial flutter with aberrancy are of course possible but definitely with his presentation and with his history of heart failure ventricular tachycardia is high on the differential. Continue amiodarone Continue beta-raine Watch electrolytes closely Ischemic evaluation displayed ischemia as cause of ventricular tachycardia (4) Atrial fibrillation Is this a current diagnosis for this admission?: Yes Plan: Atrial fibrillation. Systemic anticoagulation Status post biventricular pacemaker implantation Continue apixaban - Notes Notes: Plan was actually initiated per Dr. Berry. Plan is to optimize his volume status and to make him electrically stable with use of been amiodarone. Beta-blockade Watch kidney function Monitor his renal function and volume status and respiratory status are somewhat optimal plan is to transport him to [place] for cardiac catheterization to exclude myocardial ischemia as cause of ventricular tachycardia which was likely arrhythmias here.
--- NOTE | 2019-11-30 18:59 | PDOC PROGRESS REPORT ---
Subjective Progress Note for:: 11/30/19 Subjective:: THEODORE SON is a 69 year old male with PMH of HTN, HLD, morbid obesity (BMI 43), atrial fibrillation on AC, CHB s/p pacemaker, HFrEF (40%), ventricular tachycardia, PAD, Follicular Lymphoma, insulin dependent DM2, and PATEL on BIPAP who presented to the ED via EMS which CC of SOB and CP that started around 1000 this morning. He was in his usual state of health when he went to bed last night. When he woke up this morning, he reported some pressure-like chest pain associated with nausea. His called EMS. EMS reported that the patient was in V-tach on the monitor with a rate in the 170s upon their arrival. They administered 2 rounds of Adenosine (initially 6 mg, then 12 mg) without success, so they then administered 150 mg Amiodarone with subsequent conversion to a slower rate. Patient is followed by Dr. Berry for cardiology. He and his state that he has been compliant with his medication regimen and his diuretics, but continues to have progressively worsening SOB and GALLEGO which has become worse throughout the last month. He is barely able to ambulate due to the SOB. He uses a walker to get around in the house, but doesn't walk outside. He is not on home O2 therapy. 11/29/19. D3 Hospital stay. He was seen and examined at bedside. On Bipap saturating 96%. Breathing is about the same as yesterday, denies any chest pain, no palpitations, no syncope. Cardiology following. Plan to continue diuresis for now, monitor Crea with diuresis. 11/30/19. D4 hospital stay. He was seen and examined at bedside. He was off his BiPAP machine and he denies feeling short of breath retarded. He denies any chest pain no palpitations. Creatinine mildly elevated today. Will hold off on Lasix and resume the next day Reason For Visit: VENTRICULAR TACHYCARDIA, ACUTE ON CHRONIC Physical Exam Vital Signs: Temp Pulse Resp BP Pulse Ox 97.4 F 78 14 138/91 H 92 11/30/19 11:37 11/30/19 14:00 11/30/19 11:37 11/30/19 11:37 11/30/19 11:37 Intake & Output 11/29/19 11/30/19 12/01/19 06:59 06:59 06:59 Intake Total 1088 615 6425 Output Total 6235 7330 Balance 406 -1152 1058 Weight 130.8 kg 132.2 kg General appearance: PRESENT: no acute distress, cooperative, hard of hearing Head exam: PRESENT: atraumatic, normocephalic Eye exam: PRESENT: EOMI, PERRLA Mouth exam: PRESENT: moist Neck exam: PRESENT: full ROM Respiratory exam: PRESENT: rales, symmetrical, unlabored. ABSENT: wheezes Cardiovascular exam: PRESENT: RRR, +S1, +S2. ABSENT: tachycardia Pulses: PRESENT: normal radial pulses GI/Abdominal exam: PRESENT: normal bowel sounds Extremities exam: PRESENT: +1 edema Musculoskeletal exam: PRESENT: full ROM Neurological exam: PRESENT: alert, awake, oriented to person, oriented to place, oriented to time Psychiatric exam: PRESENT: normal mood Skin exam: PRESENT: normal color Results Laboratory Results: 11/30/19 06:41 11/30/19 06:41 11/29/19 11/30/19 11/30/19 18:25 06:41 06:41 WBC 5.5 RBC 2.84 L Hgb 7.8 L Hct 23.9 L MCV 84 MCH 27.6 MCHC 32.8 RDW 18.0 H Plt Count 169 Sodium 135.1 L Potassium 4.1 Chloride 89 L Carbon Dioxide 34 H Anion Gap 12 BUN 77 H Creatinine 1.94 H Est GFR ( Amer) 42 L Glucose 163 H Calcium 7.8 L Magnesium 2.5 H 11/30/19 06:41 WBC RBC Hgb Hct MCV MCH MCHC RDW Plt Count Sodium 137.1 Potassium 3.7 Chloride 93 L Carbon Dioxide 33 H Anion Gap 11 BUN 82 H Creatinine 1.97 H Est GFR ( Amer) 41 L Glucose 80 Calcium 7.7 L Magnesium 11/27/19 11/27/19 11/27/19 14:30 14:30 14:30 Creatine Kinase 93 CK-MB (CK-2) 2.99 Troponin I 0.044 NT-Pro-B Natriuret Pep 4090 H 11/27/19 11/28/19 11/28/19 20:00 02:10 08:23 Creatine Kinase CK-MB (CK-2) Troponin I 0.473 0.681 0.594 NT-Pro-B Natriuret Pep Impressions: Chest X-Ray 11/27/19 14:27 IMPRESSION: Mild bibasilar subsegmental atelectasis. No significant pleural effusion. Assessment and Plan - Diagnosis (1) Ventricular tachycardia Is this a current diagnosis for this admission?: Yes Plan: - has ICD - on PO amiodarone - continue carvedilol - cardio following. Plan for transfer to [facility] once he is adequately diuresed for [facility] - keep K>4, Mg >2 (2) Acute on chronic systolic congestive heart failure, NYHA class 3 Is this a current diagnosis for this admission?: Yes Plan: - EF 40% awaiting repeat Echo - has ICD - BNP 4090 - trop peaked at 0.68 trended down to 0.59 - BP borderline low - will do Lasix vacation due to uptrending Crea - acetazolamide added for contraction alkalosis - started on Entresto with holding parameters - continue carvedilol, aspirin - will start aldactone tomorrow - will need cardiac cath. will likely need to be transferred for the procedure per cardio - daily weights - strict IO - fluid and sodium restriction (3) NSTEMI (non-ST elevated myocardial infarction) Is this a current diagnosis for this admission?: Yes Plan: - no evidence of ischemic changes on EKG and currently CP free. However, given VT, he will absolutely need an ischemic work up with [facility]. - Trop peaked at 0.68 decreased to 0.59 - continue aspirin, carvedilol, statin (4) Atrial fibrillation Is this a current diagnosis for this admission?: Yes Plan: - continue eliquis - on amio and carvedilol (5) JOHANNY (acute kidney injury) Is this a current diagnosis for this admission?: Yes Plan: - Crea 1.72>1.94>1.97 unclear baseline - JOHANNY on top of CKD, or cardiorenal - will hold lasix for 1 day due to uptrending crea. Will resume after 1 day as appropriate - monitor crea - avoid nephrotoxins (6) Diabetes mellitus type 2 in obese Is this a current diagnosis for this admission?: Yes Plan: -restart home Lantus at half home dose of 40 units HS - SSI ACHS - carb controlled diet (7) Morbid obesity with BMI of 40.0-44.9, adult Is this a current diagnosis for this admission?: Yes Plan: - encouraged weight loss (8) PATEL (obstructive sleep apnea) Is this a current diagnosis for this admission?: Yes Plan: - on BIPAP (9) Tobacco abuse Is this a current diagnosis for this admission?: Yes Plan: - encourage cessation - nicotine patch - Plan Summary Summary: - Time Time Spent with patient: 25-34 minutes Anticipated Discharge Disposition: Tertiary - to be determined Anticipated Discharge Timeframe: to be determined
[2019-11-30] MEDS: INSULIN GLARGINE,HUM.REC.ANLOG 1,000 UNIT/10 ML VIAL SUBCUT SCH (21:50)
[2019-11-30] MEDS: MELATONIN 5 MG TABLET PO PRN (21:50)
[2019-11-30] MEDS: ACETAZOLAMIDE 250 MG TABLET PO SCH (21:55)
[2019-12-01] MEDS: AMIODARONE HCL 200 MG TABLET PO SCH ×2 (05:50→17:34)
[2019-12-01 06:45] LABS: ABSOLUTE EOSINOPHILS # (AUTO) 0.1 10^3/uL (0.0-0.6); ABSOLUTE LYMPHOCYTES (AUTO) 0.4 10^3/uL (0.5-4.7); ABSOLUTE NEUT (AUTO) 3.4 10^3/uL (1.7-8.2); BASOPHILS % (AUTO) 0.5 % (0-2); EOSINOPHILS % (AUTO) 2.7 % (0-6); HEMATOCRIT 24.8 % (37.9-51.0); LYMPHOCYTES % (AUTO) 7.7 % (13-45); MEAN CORPUSCULAR HEMOGLOBIN 27.2 pg (27.0-33.4); MEAN CORPUSCULAR HGB CONC 32.2 g/dL (32.0-36.0); MEAN CORPUSCULAR VOLUME 85 fl (80-97); MONOCYTES % (AUTO) 19.6 % (3-13); PLATELET COUNT 191 10^3/uL (150-450); RED BLOOD COUNT 2.94 10^6/uL (4.35-5.55); RED CELL DISTRIBUTION WIDTH 17.8 % (11.5-14.0); SEGMENTED NEUTROPHILS % (AUTO) 69.5 % (42-78); TOTAL CELLS COUNTED % (AUTO) 100 %; WHITE BLOOD COUNT 4.9 10^3/uL (4.0-10.5)
[2019-12-01 07:06] LABS: ALBUMIN 3.4 g/dL (3.5-5.0); ALKALINE PHOSPHATASE 188 U/L (38-126); ANION GAP 8 (5-19); ASPARTATE AMINO TRANSFERASE 30 U/L (17-59); BILIRUBIN,TOTAL 1.2 mg/dL (0.2-1.3); BLOOD UREA NITROGEN 81 mg/dL (7-20); CALCIUM 7.9 mg/dL (8.4-10.2); CARBON DIOXIDE 35 mmol/L (22-30); CHLORIDE 94 mmol/L (98-107); POTASSIUM 3.9 mmol/L (3.6-5.0); TOTAL PROTEIN 5.7 g/dL (6.3-8.2)
[2019-12-01 07:11] LABS: GLUCOSE 53 mg/dL (75-110)
[2019-12-01] MEDS ORDERED: INFLUENZA QUAD (6MOS+) 2020-21 VAC 0.5 ML SYR IM ONE (08:00)
[2019-12-01] MEDS: INSULIN LISPRO 100 UNIT/ML 3 ML VIAL SUBCUT SCH ×4 (08:09→21:14)
[2019-12-01] MEDS: ATORVASTATIN CALCIUM 80 MG TABLET PO SCH (11:33)
[2019-12-01] MEDS: APIXABAN 5 MG TABLET PO SCH ×2 (11:33→17:34)
[2019-12-01] MEDS: ASPIRIN 81 MG TABLET, CHEWABLE PO SCH (11:33)
[2019-12-01] MEDS: SACUBITRIL/VALSARTAN 24 MG/26 MG TABLET PO SCH ×2 (11:39→17:34)
[2019-12-01] MEDS: CARVEDILOL 3.125 MG TABLET PO SCH ×2 (11:44→21:13)
--- NOTE | 2019-12-01 17:20 | PDOC PROGRESS REPORT ---
Subjective Progress Note for:: 12/01/19 Subjective:: THEODORE SON is a 69 year old male with PMH of HTN, HLD, morbid obesity (BMI 43), atrial fibrillation on AC, CHB s/p pacemaker, HFrEF (40%), ventricular tachycardia, PAD, Follicular Lymphoma, insulin dependent DM2, and PATEL on BIPAP who presented to the ED via EMS which CC of SOB and CP that started around 1000 this morning. He was in his usual state of health when he went to bed last night. When he woke up this morning, he reported some pressure-like chest pain associated with nausea. His called EMS. EMS reported that the patient was in V-tach on the monitor with a rate in the 170s upon their arrival. They administered 2 rounds of Adenosine (initially 6 mg, then 12 mg) without success, so they then administered 150 mg Amiodarone with subsequent conversion to a slower rate. Patient is followed by Dr. Berry for cardiology. He and his state that he has been compliant with his medication regimen and his diuretics, but continues to have progressively worsening SOB and GALLEGO which has become worse throughout the last month. He is barely able to ambulate due to the SOB. He uses a walker to get around in the house, but doesn't walk outside. He is not on home O2 therapy. 11/29/19. D3 Hospital stay. He was seen and examined at bedside. On Bipap saturating 96%. Breathing is about the same as yesterday, denies any chest pain, no palpitations, no syncope. Cardiology following. Plan to continue diuresis for now, monitor Crea with diuresis. 11/30/19. D4 hospital stay. He was seen and examined at bedside. He was off his BiPAP machine and he denies feeling short of breath retarded. He denies any chest pain no palpitations. Creatinine mildly elevated today. Will hold off on Lasix and resume the next day Reason For Visit: VENTRICULAR TACHYCARDIA, ACUTE ON CHRONIC Physical Exam Vital Signs: Temp Pulse Resp BP Pulse Ox 97.1 F 81 15 103/51 L 100 12/01/19 10:00 12/01/19 07:27 12/01/19 13:11 12/01/19 07:27 12/01/19 13:11 Intake & Output 11/30/19 12/01/19 12/02/19 06:59 06:59 06:59 Intake Total 698 1176 1040 Output Total 1850 200 Balance -5510 605 3960 Weight 132.2 kg 128.1 kg General appearance: PRESENT: no acute distress, cooperative, hard of hearing, obese Head exam: PRESENT: atraumatic, normocephalic Eye exam: PRESENT: EOMI, PERRLA Ear exam: PRESENT: normal external ear exam Mouth exam: PRESENT: moist Neck exam: PRESENT: full ROM Respiratory exam: PRESENT: rales, symmetrical Cardiovascular exam: PRESENT: RRR, +S1, +S2 Pulses: PRESENT: +2 pedal pulses bilateral Vascular exam: PRESENT: normal capillary refill GI/Abdominal exam: PRESENT: normal bowel sounds, soft. ABSENT: rebound, tenderness Extremities exam: PRESENT: full ROM Musculoskeletal exam: PRESENT: full ROM Neurological exam: PRESENT: alert, awake, oriented to person, oriented to place, oriented to time Psychiatric exam: PRESENT: normal mood Results Laboratory Results: 12/01/19 06:16 12/01/19 06:16 12/01/19 12/01/19 06:16 06:16 WBC 4.9 RBC 2.94 L Hgb 8.0 L Hct 24.8 L MCV 85 MCH 27.2 MCHC 32.2 RDW 17.8 H Plt Count 191 Seg Neutrophils % 69.5 Sodium 137.1 Potassium 3.9 Chloride 94 L Carbon Dioxide 35 H Anion Gap 8 BUN 81 H Creatinine 1.98 H Est GFR ( Amer) 41 L Glucose 53 L Calcium 7.9 L Total Bilirubin 1.2 AST 30 Alkaline Phosphatase 188 H Total Protein 5.7 L Albumin 3.4 L 11/27/19 11/27/19 11/27/19 14:30 14:30 14:30 Creatine Kinase 93 CK-MB (CK-2) 2.99 Troponin I 0.044 NT-Pro-B Natriuret Pep 4090 H 11/27/19 11/28/19 11/28/19 20:00 02:10 08:23 Creatine Kinase CK-MB (CK-2) Troponin I 0.473 0.681 0.594 NT-Pro-B Natriuret Pep Impressions: Chest X-Ray 11/27/19 14:27 IMPRESSION: Mild bibasilar subsegmental atelectasis. No significant pleural effusion. Assessment and Plan - Diagnosis (1) Ventricular tachycardia Is this a current diagnosis for this admission?: Yes Plan: - has a Pacemaker, would need to be updated to an ICD - on PO amiodarone - continue carvedilol - cardio following. Plan for transfer to [facility] once he is adequately diuresed for [facility] - keep K>4, Mg >2 (2) Acute on chronic systolic congestive heart failure, NYHA class 3 Is this a current diagnosis for this admission?: Yes Plan: - EF 40% awaiting repeat Echo - has ICD - BNP 4090 - trop peaked at 0.68 trended down to 0.59 - BP borderline low - will do Lasix vacation due to uptrending Crea - acetazolamide added for contraction alkalosis - started on Entresto with holding parameters - continue carvedilol, aspirin - BP soft at 99/58 will hold off on aldactone - will need cardiac cath. will likely need to be transferred for the procedure per cardio - daily weights - strict IO - fluid and sodium restriction (3) NSTEMI (non-ST elevated myocardial infarction) Is this a current diagnosis for this admission?: Yes Plan: - no evidence of ischemic changes on EKG and currently CP free. However, given VT, he will absolutely need an ischemic work up with [facility]. - Trop peaked at 0.68 decreased to 0.59 - continue aspirin, carvedilol, statin (4) Atrial fibrillation Is this a current diagnosis for this admission?: Yes Plan: - continue eliquis - on amio and carvedilol (5) JOHANNY (acute kidney injury) Is this a current diagnosis for this admission?: Yes Plan: - Crea 1.72>1.94>1.97 unclear baseline - JOHANNY on top of CKD, or cardiorenal - will hold lasix for 1 day due to uptrending crea. Will resume after 1 day as appropriate - monitor crea - avoid nephrotoxins (6) Diabetes mellitus type 2 in obese Is this a current diagnosis for this admission?: Yes Plan: -restart home Lantus at half home dose of 40 units HS - SSI ACHS - carb controlled diet (7) Morbid obesity with BMI of 40.0-44.9, adult Is this a current diagnosis for this admission?: Yes Plan: - encouraged weight loss (8) PATEL (obstructive sleep apnea) Is this a current diagnosis for this admission?: Yes Plan: - on BIPAP (9) Tobacco abuse Is this a current diagnosis for this admission?: Yes Plan: - encourage cessation - nicotine patch - Plan Summary Summary: - Time Time Spent with patient: 25-34 minutes Anticipated Discharge Disposition: Tertiary Anticipated Discharge Timeframe: to be determined
[2019-12-01] MEDS: BUSPIRONE HCL 10 MG TABLET PO SCH (17:34)
[2019-12-01] MEDS: ACETAMINOPHEN 325 MG TABLET PO PRN (18:15)
--- NOTE | 2019-12-01 18:33 | PDOC PROGRESS REPORT ---
Subjective Progress Note for:: 12/01/19 Subjective:: Patient sitting in the chair. BiPAP mask on. Does not appear to be in any acute distress. Spouse is with him at bedside. Telemetry shows paced rhythm Reason For Visit: VENTRICULAR TACHYCARDIA, ACUTE ON CHRONIC Physical Exam Vital Signs: Temp Pulse Resp BP Pulse Ox 97.8 F 118 H 16 99/58 L 100 12/01/19 16:38 12/01/19 16:38 12/01/19 16:38 12/01/19 16:38 12/01/19 16:38 Intake & Output 11/30/19 12/01/19 12/02/19 06:59 06:59 06:59 Intake Total 698 1176 1760 Output Total 1850 200 Balance -1018 139 4755 Weight 132.2 kg 128.1 kg General appearance: PRESENT: cooperative, obese, well-developed, well-nourished Head exam: PRESENT: atraumatic, normocephalic Eye exam: PRESENT: conjunctiva pink Respiratory exam: PRESENT: prolonged expiratory phas, symmetrical, other - Coarse breath sounds. Cardiovascular exam: PRESENT: RRR, +S1 - Not using accessory muscles of respiration, +S2 Pulses: PRESENT: normal radial pulses GI/Abdominal exam: PRESENT: distended Rectal exam: PRESENT: deferred Neurological exam: PRESENT: alert, awake, oriented to place, oriented to time, oriented to situation - Medical management Skin exam: PRESENT: dry, intact, normal color Results Laboratory Results: 12/01/19 06:16 12/01/19 06:16 12/01/19 12/01/19 06:16 06:16 WBC 4.9 RBC 2.94 L Hgb 8.0 L Hct 24.8 L MCV 85 MCH 27.2 MCHC 32.2 RDW 17.8 H Plt Count 191 Seg Neutrophils % 69.5 Sodium 137.1 Potassium 3.9 Chloride 94 L Carbon Dioxide 35 H Anion Gap 8 BUN 81 H Creatinine 1.98 H Est GFR ( Amer) 41 L Glucose 53 L Calcium 7.9 L Total Bilirubin 1.2 AST 30 Alkaline Phosphatase 188 H Total Protein 5.7 L Albumin 3.4 L 11/27/19 11/27/19 11/27/19 14:30 14:30 14:30 Creatine Kinase 93 CK-MB (CK-2) 2.99 Troponin I 0.044 NT-Pro-B Natriuret Pep 4090 H 11/27/19 11/28/19 11/28/19 20:00 02:10 08:23 Creatine Kinase CK-MB (CK-2) Troponin I 0.473 0.681 0.594 NT-Pro-B Natriuret Pep Impressions: Chest X-Ray 11/27/19 14:27 IMPRESSION: Mild bibasilar subsegmental atelectasis. No significant pleural effusion. Assessment & Plan - Diagnosis (1) Acute exacerbation of CHF (congestive heart failure) Qualifiers: Heart failure type: systolic Qualified Code(s): I50.23 - Acute on chronic systolic (congestive) heart failure Is this a current diagnosis for this admission?: Yes Plan: Volume status is difficult to gauge. Patient has had good clinical response to intravenous diuresis Watch creatinine as we diurese His respiratory status is presently tenuous but is likely multifactorial with predominant component of obesity hypoventilation and possible COPD (2) Morbid obesity with alveolar hypoventilation Is this a current diagnosis for this admission?: Yes Plan: Presently being maintained on noninvasive positive pressure ventilation. (3) Arrhythmia Is this a current diagnosis for this admission?: Yes Plan: Reported to have ventricular tachycardia. I was able to review strips pertaining to the arrhythmia which indicate wide-complex rhythm at approximately 170-180 beats per minutes This is ventricular tachycardia on lites otherwise program. This also terminated with amiodarone. Other arrhythmias including atrial flutter with aberrancy are of course possible but definitely with his presentation and with his history of heart failure ventricular tachycardia is high on the differential. Continue amiodarone Continue beta-raine Watch electrolytes closely Ischemic evaluation is necessary to exclude myocardial ischemia as cause of ventricular tachycardia (4) Atrial fibrillation Is this a current diagnosis for this admission?: Yes Plan: Atrial fibrillation. Systemic anticoagulation Status post biventricular pacemaker implantation Continue apixaban (5) JOHANNY (acute kidney injury) Is this a current diagnosis for this admission?: Yes Plan: Worsening renal function. Watching creatinine. This is necessary to make sure the patient is not at a higher risk for contrast-induced nephropathy as cardiac catheterization is anticipated - Notes Notes: I explained the care plan to the patient and the spouse. I indicated that we waiting for improvement in renal function and we are anticipating transfer to [place] to pursue cardiac catheterization based on clinical course and improvement in respiratory status
[2019-12-01] MEDS: ACETAZOLAMIDE 250 MG TABLET PO SCH (21:13)
[2019-12-01] MEDS: MELATONIN 5 MG TABLET PO PRN (21:13)
[2019-12-01] MEDS: INSULIN GLARGINE,HUM.REC.ANLOG 1,000 UNIT/10 ML VIAL SUBCUT SCH (21:14)
[2019-12-02] MEDS: AMIODARONE HCL 200 MG TABLET PO SCH ×2 (05:44→17:42)
[2019-12-02 06:48] LABS: HEMATOCRIT 26.8 % (37.9-51.0); HEMOGLOBIN 8.6 g/dL (13.5-17.0); MEAN CORPUSCULAR HEMOGLOBIN 27.4 pg (27.0-33.4); MEAN CORPUSCULAR HGB CONC 32.1 g/dL (32.0-36.0); MEAN CORPUSCULAR VOLUME 85 fl (80-97); PLATELET COUNT 196 10^3/uL (150-450); RED BLOOD COUNT 3.14 10^6/uL (4.35-5.55); RED CELL DISTRIBUTION WIDTH 18.1 % (11.5-14.0); WHITE BLOOD COUNT 5.8 10^3/uL (4.0-10.5)
[2019-12-02 07:11] LABS: ALBUMIN 3.9 g/dL (3.5-5.0); ALKALINE PHOSPHATASE 230 U/L (38-126); ANION GAP 10 (5-19); ASPARTATE AMINO TRANSFERASE 32 U/L (17-59); BILIRUBIN,DIRECT 0.9 mg/dL (0.0-0.4); BLOOD UREA NITROGEN 74 mg/dL (7-20); CALCIUM 8.1 mg/dL (8.4-10.2); CARBON DIOXIDE 35 mmol/L (22-30); CHLORIDE 94 mmol/L (98-107); TOTAL PROTEIN 6.1 g/dL (6.3-8.2)
[2019-12-02 07:14] LABS: GLUCOSE 60 mg/dL (75-110)
[2019-12-02 07:29] LABS: ANISOCYTOSIS 2+; BASOPHILS % (MANUAL) 0 % (0-2); EOSINOPHILS % (MANUAL) 1 % (0-6); LYMPHOCYTES % (MANUAL) 18 % (13-45); MONOCYTES % (MANUAL) 18 % (3-13); OVALOCYTES SLIGHT; PLATELET CLUMPS PRESENT; PLATELET COMMENT ADEQUATE; POIKILOCYTOSIS SLIGHT; SEGMENTED NEUTROPHILS % (MAN) 63 % (42-78); STOMATOCYTES SLIGHT; TOTAL CELLS COUNTED 100
[2019-12-02] MEDS: INSULIN LISPRO 100 UNIT/ML 3 ML VIAL SUBCUT SCH ×3 (08:24→22:28)
[2019-12-02] MEDS ORDERED: IPRATROPIUM/ALBUTEROL 0.5-2.5 MG/3 ML AMPUL NEB PRN (08:46)
[2019-12-02] MEDS ORDERED: IPRATROPIUM/ALBUTEROL 0.5-2.5 MG/3 ML AMPUL NEB ONE (08:50)
[2019-12-02] MEDS: ATORVASTATIN CALCIUM 80 MG TABLET PO SCH (10:37)
[2019-12-02] MEDS: APIXABAN 5 MG TABLET PO SCH ×2 (10:38→17:42)
[2019-12-02] MEDS: ASPIRIN 81 MG TABLET, CHEWABLE PO SCH (10:38)
[2019-12-02] MEDS: CARVEDILOL 3.125 MG TABLET PO SCH ×2 (10:38→22:35)
[2019-12-02] MEDS: SACUBITRIL/VALSARTAN 24 MG/26 MG TABLET PO SCH ×2 (10:39→17:42)
[2019-12-02] MEDS ORDERED: RINGERS SOLUTION,LACTATED 1,000 ML IV PRN (12:27)
--- NOTE | 2019-12-02 12:43 | PDOC PROGRESS REPORT ---
Subjective Progress Note for:: 12/02/19 Subjective:: THEODORE SON is a 69 year old male with PMH of HTN, HLD, morbid obesity (BMI 43), atrial fibrillation on AC, CHB s/p pacemaker, HFrEF (40%), ventricular tachycardia, PAD, Follicular Lymphoma, insulin dependent DM2, and PATEL on BIPAP who presented to the ED via EMS which CC of SOB and CP that started around 1000 this morning. He was in his usual state of health when he went to bed last night. When he woke up this morning, he reported some pressure-like chest pain associated with nausea. His called EMS. EMS reported that the patient was in V-tach on the monitor with a rate in the 170s upon their arrival. They administered 2 rounds of Adenosine (initially 6 mg, then 12 mg) without success, so they then administered 150 mg Amiodarone with subsequent conversion to a slower rate. Patient is followed by Dr. Berry for cardiology. He and his state that he has been compliant with his medication regimen and his diuretics, but continues to have progressively worsening SOB and GALLEGO which has become worse throughout the last month. He is barely able to ambulate due to the SOB. He uses a walker to get around in the house, but doesn't walk outside. He is not on home O2 therapy. 11/29/19. D3 Hospital stay. He was seen and examined at bedside. On Bipap saturating 96%. Breathing is about the same as yesterday, denies any chest pain, no palpitations, no syncope. Cardiology following. Plan to continue diuresis for now, monitor Crea with diuresis. 11/30/19. D4 hospital stay. He was seen and examined at bedside. He was off his BiPAP machine and he denies feeling short of breath retarded. He denies any chest pain no palpitations. Creatinine mildly elevated today. Will hold off on Lasix and resume the next day. 12/01/19. D5 hospital stay. He was seen and examined at bedside. He is back on his bipap. He seems more confused today compared to yesterday. Creatinine seems worse today 2.33 from 1.99 yesterday. Will give him 1 bag of LR and see if this improves his creatinine by tomorrow. I will continue to hold his lasix for today. He also complained of dry eyes probably from air leak from his bipap. Started on eye drops Reason For Visit: VENTRICULAR TACHYCARDIA, ACUTE ON CHRONIC Physical Exam Vital Signs: Temp Pulse Resp BP Pulse Ox 97.3 F 80 21 H 114/71 88 L 12/02/19 11:43 12/02/19 11:43 12/02/19 12:03 12/02/19 11:43 12/02/19 12:03 Intake & Output 12/01/19 12/02/19 12/03/19 06:59 06:59 06:59 Intake Total 1176 1760 Output Total 200 Balance 976 1760 Weight 128.1 kg 130.8 kg General appearance: PRESENT: cooperative, hard of hearing, mild distress Head exam: PRESENT: atraumatic, normocephalic Eye exam: PRESENT: conjunctival injection, EOMI, PERRLA Ear exam: PRESENT: normal external ear exam Mouth exam: PRESENT: moist Neck exam: PRESENT: full ROM Respiratory exam: PRESENT: rales, symmetrical, unlabored Cardiovascular exam: PRESENT: RRR, +S1, +S2 Pulses: PRESENT: +2 pedal pulses bilateral Breast: PRESENT: Normal GI/Abdominal exam: PRESENT: normal bowel sounds, soft. ABSENT: rebound, tenderness Musculoskeletal exam: PRESENT: full ROM Neurological exam: PRESENT: alert, awake, other - a bit confused Psychiatric exam: PRESENT: normal mood Skin exam: PRESENT: normal color Results Laboratory Results: 12/02/19 06:25 12/02/19 06:25 12/02/19 12/02/19 06:25 06:25 WBC 5.8 RBC 3.14 L Hgb 8.6 L Hct 26.8 L MCV 85 MCH 27.4 MCHC 32.1 RDW 18.1 H Plt Count 196 Seg Neutrophils % Not Reportable Sodium 139.0 Potassium 4.0 Chloride 94 L Carbon Dioxide 35 H Anion Gap 10 BUN 74 H Creatinine 2.33 H Est GFR ( Amer) 34 L Glucose 60 L Calcium 8.1 L Total Bilirubin 1.0 AST 32 Alkaline Phosphatase 230 H Total Protein 6.1 L Albumin 3.9 11/27/19 11/27/19 11/27/19 14:30 14:30 14:30 Creatine Kinase 93 CK-MB (CK-2) 2.99 Troponin I 0.044 NT-Pro-B Natriuret Pep 4090 H 11/27/19 11/28/19 11/28/19 20:00 02:10 08:23 Creatine Kinase CK-MB (CK-2) Troponin I 0.473 0.681 0.594 NT-Pro-B Natriuret Pep Impressions: Chest X-Ray 11/27/19 14:27 IMPRESSION: Mild bibasilar subsegmental atelectasis. No significant pleural effusion. Assessment and Plan - Diagnosis (1) JOHANNY (acute kidney injury) Is this a current diagnosis for this admission?: Yes Plan: - Crea 1.72>1.94>1.97>2.3 unclear baseline - JOHANNY on top of CKD, or cardiorenal - will hold lasix for 1 more day due to uptrending crea. Will give 1 bag of LR 80 cc then re assess, informed the nurse not to hang another bag after - patients kidney function have to improve prior to transfer for [facility] - monitor crea - avoid nephrotoxins (2) Ventricular tachycardia Is this a current diagnosis for this admission?: Yes Plan: - has a Pacemaker, would need to be updated to an ICD - on PO amiodarone - continue carvedilol - cardio following. Plan for transfer to [facility] once he is adequately diuresed for [facility] - keep K>4, Mg >2 (3) Acute on chronic systolic congestive heart failure, NYHA class 3 Is this a current diagnosis for this admission?: Yes Plan: - repeat echo EF <35%, LV moderately dilated, severe global hypokinesis - has a pacemaker - BNP 4090 - trop peaked at 0.68 trended down to 0.59 - BP borderline low - will do Lasix vacation due to uptrending Crea - started on Entresto with holding parameters - continue carvedilol, aspirin - BP soft at 99/58 will hold off on aldactone - will need cardiac cath. will likely need to be transferred for the procedure per cardio - daily weights - strict IO - fluid and sodium restriction (4) NSTEMI (non-ST elevated myocardial infarction) Is this a current diagnosis for this admission?: Yes Plan: - no evidence of ischemic changes on EKG and currently CP free. However, given VT, he will absolutely need an ischemic work up with [facility]. - Trop peaked at 0.68 decreased to 0.59 - continue aspirin, carvedilol, statin (5) Atrial fibrillation Is this a current diagnosis for this admission?: Yes Plan: - continue eliquis - on amio and carvedilol (6) Diabetes mellitus type 2 in obese Is this a current diagnosis for this admission?: Yes Plan: -restart home Lantus at half home dose of 40 units HS - SSI ACHS - carb controlled diet (7) Morbid obesity with BMI of 40.0-44.9, adult Is this a current diagnosis for this admission?: Yes Plan: - encouraged weight loss (8) PATEL (obstructive sleep apnea) Is this a current diagnosis for this admission?: Yes Plan: - on BIPAP (9) Tobacco abuse Is this a current diagnosis for this admission?: Yes Plan: - encourage cessation - nicotine patch (10) Dry eyes, bilateral Is this a current diagnosis for this admission?: Yes Plan: - due to air leak from bipap - prescribed lubricant eye drops - Plan Summary Summary: - Time Time Spent with patient: 25-34 minutes Anticipated Discharge Disposition: Tertiary Anticipated Discharge Timeframe: to be determined
--- NOTE | 2019-12-02 12:47 | RADIOLOGY REPORT (SQ) ---
EXAM DESCRIPTION: CHEST SINGLE VIEW IMAGES COMPLETED DATE/TIME: 12/02/2019 12:37 pm REASON FOR STUDY: SOB COMPARISON: 11/27/2019 EXAM PARAMETERS: NUMBER OF VIEWS: One view. TECHNIQUE: Single frontal radiographic view of the chest acquired. RADIATION DOSE: NA LIMITATIONS: None. FINDINGS: LUNGS AND PLEURA: No opacities, masses or pneumothorax. No pleural effusion. MEDIASTINUM AND HILAR STRUCTURES: No masses. Contour normal. HEART AND VASCULAR STRUCTURES: Enlarged, stable. Mild central vascular prominence without overt jayson a. BONES: No acute findings. HARDWARE: Left-sided cardiac pacer, stable. Loop recorder overlies left chest. OTHER: No other significant finding. IMPRESSION: Enlarged cardiac silhouette and central vascular congestion without overt edema. TECHNICAL DOCUMENTATION: JOB ID: [id number] 2010 [employer]- All Rights Reserved Reading location - IP/workstation name: [email or web address]
--- NOTE | 2019-12-02 13:11 | PDOC PROGRESS REPORT ---
Subjective Progress Note for:: 12/02/19 Subjective:: Patient is resting in bed. Noninvasive ventilation mask is on. No chest pain or dyspnea. No arrhythmia overnight. No other complaints. Reason For Visit: VENTRICULAR TACHYCARDIA, ACUTE ON CHRONIC Physical Exam Vital Signs: Temp Pulse Resp BP Pulse Ox 97.3 F 80 21 H 114/71 88 L 12/02/19 11:43 12/02/19 11:43 12/02/19 12:03 12/02/19 11:43 12/02/19 12:03 Intake & Output 12/01/19 12/02/19 12/03/19 06:59 06:59 06:59 Intake Total 1176 1760 Output Total 200 Balance 976 1760 Weight 128.1 kg 130.8 kg General appearance: PRESENT: no acute distress, morbidly obese, well-developed, well-nourished Head exam: PRESENT: atraumatic Eye exam: PRESENT: conjunctiva pink, EOMI Mouth exam: PRESENT: moist Respiratory exam: PRESENT: symmetrical, unlabored Cardiovascular exam: PRESENT: RRR, +S1, +S2, other - Permanent pacemaker implant site left upper chest wall is dry and clean. GI/Abdominal exam: PRESENT: distended Rectal exam: PRESENT: deferred Neurological exam: PRESENT: alert, awake, other - Appears to be mildly confused today Psychiatric exam: PRESENT: appropriate affect Skin exam: PRESENT: dry, intact Results Laboratory Results: 12/02/19 06:25 12/02/19 06:25 12/02/19 12/02/19 06:25 06:25 WBC 5.8 RBC 3.14 L Hgb 8.6 L Hct 26.8 L MCV 85 MCH 27.4 MCHC 32.1 RDW 18.1 H Plt Count 196 Seg Neutrophils % Not Reportable Sodium 139.0 Potassium 4.0 Chloride 94 L Carbon Dioxide 35 H Anion Gap 10 BUN 74 H Creatinine 2.33 H Est GFR ( Amer) 34 L Glucose 60 L Calcium 8.1 L Total Bilirubin 1.0 AST 32 Alkaline Phosphatase 230 H Total Protein 6.1 L Albumin 3.9 11/27/19 11/27/19 11/27/19 14:30 14:30 14:30 Creatine Kinase 93 CK-MB (CK-2) 2.99 Troponin I 0.044 NT-Pro-B Natriuret Pep 4090 H 1011/28/19 11/28/19 20:00 02:10 08:23 Creatine Kinase CK-MB (CK-2) Troponin I 0.473 0.681 0.594 NT-Pro-B Natriuret Pep Impressions: Chest X-Ray 12/02/19 00:00 IMPRESSION: Enlarged cardiac silhouette and central vascular congestion without overt edema. Assessment & Plan - Diagnosis (1) Acute exacerbation of CHF (congestive heart failure) Qualifiers: Heart failure type: systolic Qualified Code(s): I50.23 - Acute on chronic systolic (congestive) heart failure Is this a current diagnosis for this admission?: Yes Plan: V volume status is again difficult to oil agent. He does not appear to have wet lungs or crackles. His renal function shows worsening suppose that he is intravascularly volume depleted. Cautious fluid challenge may be appropriate (2) Morbid obesity with alveolar hypoventilation Is this a current diagnosis for this admission?: Yes Plan: Presently being maintained on noninvasive positive pressure ventilation. (3) Arrhythmia Is this a current diagnosis for this admission?: Yes Plan: Reported to have ventricular tachycardia. I was able to review strips pertaining to the arrhythmia which indicate wide-complex rhythm at approximately 170-180 beats per minutes This is ventricular tachycardia on lites otherwise program. This also terminated with amiodarone. Other arrhythmias including atrial flutter with aberrancy are of course possible but definitely with his pres entation and with his history of heart failure ventricular tachycardia is high on the differential. Continue amiodarone Continue beta-raine Watch electrolytes closely Ischemic evaluation is necessary to exclude myocardial ischemia as cause of ventricular tachycardia (4) Atrial fibrillation Is this a current diagnosis for this admission?: Yes Plan: Atrial fibrillation. Systemic anticoagulation Status post biventricular pacemaker implantation Continue apixaban (5) JOHANNY (acute kidney injury) Is this a current diagnosis for this admission?: Yes Plan: Worsening renal function. Watching creatinine. His creatinine today is worse. It may be reasonable to offer him a gentle fluid challenge. Consider nephrology input if renal function continues to be worse.
[2019-12-02] MEDS: CYCLOSPORINE 0.05% OPH EMULSIO 0.4 ML DROPERETTE OU SCH ×2 (17:42→22:35)
[2019-12-02] MEDS: BUSPIRONE HCL 10 MG TABLET PO SCH (17:42)
[2019-12-02] MEDS: INSULIN GLARGINE,HUM.REC.ANLOG 1,000 UNIT/10 ML VIAL SUBCUT SCH (22:36)
[2019-12-02] MEDS: MELATONIN 5 MG TABLET PO PRN (23:02)
[2019-12-03] MEDS: AMIODARONE HCL 200 MG TABLET PO SCH ×2 (05:45→17:55)
[2019-12-03 06:20] LABS: HEMATOCRIT 25.6 % (37.9-51.0); HEMOGLOBIN 8.2 g/dL (13.5-17.0); MEAN CORPUSCULAR HEMOGLOBIN 27.5 pg (27.0-33.4); MEAN CORPUSCULAR HGB CONC 32.1 g/dL (32.0-36.0); MEAN CORPUSCULAR VOLUME 86 fl (80-97); PLATELET COUNT 164 10^3/uL (150-450); RED BLOOD COUNT 2.99 10^6/uL (4.35-5.55); WHITE BLOOD COUNT 10.5 10^3/uL (4.0-10.5)
[2019-12-03 06:26] LABS: ALBUMIN 3.7 g/dL (3.5-5.0); ALKALINE PHOSPHATASE 224 U/L (38-126); ANION GAP 7 (5-19); ASPARTATE AMINO TRANSFERASE 32 U/L (17-59); BILIRUBIN,DIRECT 0.9 mg/dL (0.0-0.4); BILIRUBIN,TOTAL 1.2 mg/dL (0.2-1.3); BLOOD UREA NITROGEN 80 mg/dL (7-20); CALCIUM 8.2 mg/dL (8.4-10.2); CARBON DIOXIDE 36 mmol/L (22-30); CHLORIDE 95 mmol/L (98-107); GLUCOSE 95 mg/dL (75-110); POTASSIUM 4.3 mmol/L (3.6-5.0); TOTAL PROTEIN 5.8 g/dL (6.3-8.2)
[2019-12-03 07:25] LABS: ABSOLUTE LYMPHOCYTES# (MANUAL) 0.2 10^3/uL (0.5-4.7); ABSOLUTE MONOCYTES # (MANUAL) 0.8 10^3/uL (0.1-1.4); BASOPHILS % (MANUAL) 0 % (0-2); EOSINOPHILS % (MANUAL) 0 % (0-6); LYMPHOCYTES % (MANUAL) 2 % (13-45); MONOCYTES % (MANUAL) 8 % (3-13); SEGMENTED NEUTROPHILS % (MAN) 90 % (42-78); TOTAL CELLS COUNTED 100
[2019-12-03 07:28] LABS: ANISOCYTOSIS 2+; OVALOCYTES SLIGHT; PLATELET COMMENT ADEQUATE; PLATELET LARGE PRESENT
[2019-12-03] MEDS: INSULIN LISPRO 100 UNIT/ML 3 ML VIAL SUBCUT SCH ×4 (08:32→23:25)
[2019-12-03] MEDS: ASPIRIN 81 MG TABLET, CHEWABLE PO SCH (10:42)
[2019-12-03] MEDS: CYCLOSPORINE 0.05% OPH EMULSIO 0.4 ML DROPERETTE OU SCH ×2 (10:42→23:23)
[2019-12-03] MEDS: CARVEDILOL 3.125 MG TABLET PO SCH ×2 (10:42→23:23)
[2019-12-03] MEDS: APIXABAN 5 MG TABLET PO SCH ×2 (10:42→17:55)
[2019-12-03] MEDS: SACUBITRIL/VALSARTAN 24 MG/26 MG TABLET PO SCH ×2 (10:42→17:55)
[2019-12-03] MEDS: ATORVASTATIN CALCIUM 80 MG TABLET PO SCH (10:42)
[2019-12-03 13:41] LABS: ARTERIAL BLOOD BASE EXCESS 6.8 mmol/L; ARTERIAL BLOOD H2CO3 2.74 mmol/L (1.05-1.35); ARTERIAL BLOOD HCO3 35.9 mmol/L (20-24); ARTERIAL BLOOD O2 SATURATION 94.3 % (94-98); ARTERIAL BLOOD PH 7.21 (7.35-7.45); ARTERIAL BLOOD PO2 88.8 mmHg (80-100); ARTERIAL BLOOD TOTAL CO2 38.7 mmol/L (23-27)
[2019-12-03 13:42] LABS: ARTERIAL BLOOD FIO2 3L
[2019-12-03 13:43] LABS: ARTERIAL BLOOD PCO2 91.1 mmHg (35-45)
--- NOTE | 2019-12-03 14:56 | PDOC PROGRESS REPORT ---
Subjective Progress Note for:: 12/03/19 Subjective:: Patient is resting in bed. BiPAP mask is noted. No distress is noted. Received fluid challenge with mild improvement in creatinine. No chest pain or dyspnea reported. Reason For Visit: VENTRICULAR TACHYCARDIA, ACUTE ON CHRONIC Physical Exam Vital Signs: Temp Pulse Resp BP Pulse Ox 97.8 F 79 18 113/64 99 12/03/19 07:52 12/03/19 07:41 12/03/19 07:41 12/03/19 07:41 12/03/19 07:41 Intake & Output 12/02/19 12/03/19 12/04/19 06:59 06:59 06:59 Intake Total 1760 460 Output Total 50 Balance 1760 410 Weight 130.8 kg 126 kg General appearance: PRESENT: cooperative, morbidly obese, well-developed, well- nourished Head exam: PRESENT: atraumatic, normocephalic Mouth exam: PRESENT: dry mucosa Respiratory exam: PRESENT: symmetrical, unlabored, other - Coarse BiPAP assisted breath sounds are noted. Cardiovascular exam: PRESENT: RRR, +S1, +S2 - Left upper chest wall pacemaker implant site is well-healed. Scar from port that was removed on the right upper chest wall is also noted. Pulses: PRESENT: normal radial pulses GI/Abdominal exam: PRESENT: distended, soft Rectal exam: PRESENT: deferred Neurological exam: PRESENT: awake Skin exam: PRESENT: dry, intact Results Laboratory Results: 12/03/19 05:36 12/03/19 05:36 12/03/19 12/03/19 12/03/19 05:36 05:36 11:33 WBC 10.5 RBC 2.99 L Hgb 8.2 L Hct 25.6 L MCV 86 MCH 27.5 MCHC 32.1 RDW 18.0 H Plt Count 164 Seg Neutrophils % Not Reportable Carbonic Acid HCO3/H2CO3 Ratio ABG pH ABG pCO2 ABG pO2 ABG HCO3 ABG O2 Saturation ABG Base Excess FiO2 Sodium 138.4 Potassium 4.3 Chloride 95 L Carbon Dioxide 36 H Anion Gap 7 BUN 80 H Creatinine 2.31 H Est GFR ( Amer) 34 L Glucose 95 Calcium 8.2 L Magnesium 3.2 H Total Bilirubin 1.2 AST 32 Alkaline Phosphatase 224 H Ammonia 39.7 H Total Protein 5.8 L Albumin 3.7 12/03/19 13:20 WBC RBC Hgb Hct MCV MCH MCHC RDW Plt Count Seg Neutrophils % Carbonic Acid 2.74 H HCO3/H2CO3 Ratio 13:1 ABG pH 7.21 L ABG pCO2 91.1 H* ABG pO2 88.8 ABG HCO3 35.9 H ABG O2 Saturation 94.3 ABG Base Excess 6.8 FiO2 3L Sodium Potassium Chloride Carbon Dioxide Anion Gap BUN Creatinine Est GFR ( Amer) Glucose Calcium Magnesium Total Bilirubin AST Alkaline Phosphatase Ammonia Total Protein Albumin 11/27/19 11/27/19 11/27/19 14:30 14:30 14:30 Creatine Kinase 93 CK-MB (CK-2) 2.99 Troponin I 0.044 NT-Pro-B Natriuret Pep 4090 H 11/27/19 11/28/19 11/28/19 20:00 02:10 08:23 Creatine Kinase CK-MB (CK-2) Troponin I 0.473 0.681 0.594 NT-Pro-B Natriuret Pep Impressions: Chest X-Ray 12/02/19 00:00 IMPRESSION: Enlarged cardiac silhouette and central vascular congestion without overt edema. Assessment & Plan - Diagnosis (1) Acute exacerbation of CHF (congestive heart failure) Qualifiers: Heart failure type: systolic Qualified Code(s): I50.23 - Acute on chronic systolic (congestive) heart failure Is this a current diagnosis for this admission?: Yes Plan: V volume status is again difficult to check out clerk. He does not appear to have wet lungs or crackles. His renal function shows worsening suppose that he is intravascularly volume depleted. Cautious fluid challenge may be appropriate (2) Morbid obesity with alveolar hypoventilation Is this a current diagnosis for this admission?: Yes Plan: Presently being maintained on noninvasive positive pressure ventilation. (3) Arrhythmia Is this a current diagnosis for this admission?: Yes Plan: Reported to have ventricular tachycardia. I was able to review strips pertaining to the arrhythmia which indicate wide-complex rhythm at approximately 170-180 beats per minutes This is ventricular tachycardia on lites otherwise program. This also terminated with amiodarone. Other arrhythmias including atrial flutter with aberrancy are of course possible but definitely with his presentation and with his history of heart failure ventricular tachycardia is high on the differential. Continue amiodarone Continue beta-raine Watch electrolytes closely Ischemic evaluation is necessary to exclude myocardial ischemia as cause of ventricular tachycardia (4) Atrial fibrillation Is this a current diagnosis for this admission?: Yes Plan: Atrial fibrillation. Systemic anticoagulation Status post biventricular pacemaker implantation Continue apixaban (5) JOHANNY (acute kidney injury) Is this a current diagnosis for this admission?: Yes Plan: Worsening renal function. Watching creatinine. His creatinine today is worse. It may be reasonable to offer him a gentle fluid challenge. Consider nephrology input if renal function continues to be worse. Creatinine is marginally better. We will check labs again tomorrow. Hopefully he will improve.
--- NOTE | 2019-12-03 17:00 | PDOC PROGRESS REPORT ---
Subjective Progress Note for:: 12/03/19 Subjective:: THEODORE SON is a 69 year old male with PMH of HTN, HLD, morbid obesity (BMI 43), atrial fibrillation on AC, CHB s/p pacemaker, HFrEF (40%), ventricular tachycardia, PAD, Follicular Lymphoma, insulin dependent DM2, and PATEL on BIPAP who presented to the ED via EMS which CC of SOB and CP that started around 1000 this morning. He was in his usual state of health when he went to bed last night. When he woke up this morning, he reported some pressure-like chest pain associated with nausea. His called EMS. EMS reported that the patient was in V-tach on the monitor with a rate in the 170s upon their arrival. They administered 2 rounds of Adenosine (initially 6 mg, then 12 mg) without success, so they then administered 150 mg Amiodarone with subsequent conversion to a slower rate. Patient is followed by Dr. Berry for cardiology. He and his state that he has been compliant with his medication regimen and his diuretics, but continues to have progressively worsening SOB and GALLEGO which has become worse throughout the last month. He is barely able to ambulate due to the SOB. He uses a walker to get around in the house, but doesn't walk outside. He is not on home O2 therapy. 11/29/19. D2 Hospital stay. He was seen and examined at bedside. On Bipap saturating 96%. Breathing is about the same as yesterday, denies any chest pain, no palpitations, no syncope. Cardiology following. Plan to continue diuresis for now, monitor Crea with diuresis. 11/30/19. D3 hospital stay. He was seen and examined at bedside. He was off his BiPAP machine and he denies feeling short of breath retarded. He denies any chest pain no palpitations. Creatinine mildly elevated today. Will hold off on Lasix and resume the next day. 12/01/19. D4 hospital stay. He was seen and examined at bedside. He is back on his bipap. He seems more confused today compared to yesterday. Creatinine seems worse today 2.33 from 1.99 yesterday. Will give him 1 bag of LR and see if this improves his creatinine by tomorrow. I will continue to hold his lasix for today. He also complained of dry eyes probably from air leak from his bipap. Started on eye drops 12/02/19. D5 hospital stay. He was seen and examined at bedside. According to his who stayed with him overnight, he seems to get more confused at night. ABG repeat today showed a pCO2 of 91. HE was placed back on Bipap. Confusion likely from delirium in addition to CO2 retention. Will not be able to transfer today. Reason For Visit: VENTRICULAR TACHYCARDIA, ACUTE ON CHRONIC Physical Exam Vital Signs: Temp Pulse Resp BP Pulse Ox 97.8 F 80 23 H 113/64 99 12/03/19 07:52 12/03/19 14:00 12/03/19 16:00 12/03/19 07:41 12/03/19 07:41 Intake & Output 12/02/19 12/03/19 12/04/19 06:59 06:59 06:59 Intake Total 1760 460 Output Total 50 Balance 1760 410 Weight 130.8 kg 126 kg General appearance: PRESENT: cooperative, mild distress, obese Head exam: PRESENT: atraumatic, normocephalic Eye exam: PRESENT: EOMI, PERRLA Mouth exam: PRESENT: moist Neck exam: PRESENT: full ROM Respiratory exam: PRESENT: rales, symmetrical, unlabored Cardiovascular exam: PRESENT: irregular rhythm, +S1, +S2 Pulses: PRESENT: +2 pedal pulses bilateral GI/Abdominal exam: PRESENT: normal bowel sounds, soft. ABSENT: rebound, tenderness Extremities exam: PRESENT: full ROM Musculoskeletal exam: PRESENT: full ROM Neurological exam: PRESENT: alert, awake - orientation fluctuates Psychiatric exam: PRESENT: agitated Skin exam: PRESENT: normal color Results Laboratory Results: 12/03/19 05:36 12/03/19 05:36 12/03/19 12/03/19 12/03/19 05:36 05:36 11:33 WBC 10.5 RBC 2.99 L Hgb 8.2 L Hct 25.6 L MCV 86 MCH 27.5 MCHC 32.1 RDW 18.0 H Plt Count 164 Seg Neutrophils % Not Reportable Carbonic Acid HCO3/H2CO3 Ratio ABG pH ABG pCO2 ABG pO2 ABG HCO3 ABG O2 Saturation ABG Base Excess FiO2 Sodium 138.4 Potassium 4.3 Chloride 95 L Carbon Dioxide 36 H Anion Gap 7 BUN 80 H Creatinine 2.31 H Est GFR ( Amer) 34 L Glucose 95 Calcium 8.2 L Magnesium 3.2 H Total Bilirubin 1.2 AST 32 Alkaline Phosphatase 224 H Ammonia 39.7 H Total Protein 5.8 L Albumin 3.7 12/03/19 13:20 WBC RBC Hgb Hct MCV MCH MCHC RDW Plt Count Seg Neutrophils % Carbonic Acid 2.74 H HCO3/H2CO3 Ratio 13:1 ABG pH 7.21 L ABG pCO2 91.1 H* ABG pO2 88.8 ABG HCO3 35.9 H ABG O2 Saturation 94.3 ABG Base Excess 6.8 FiO2 3L Sodium Potassium Chloride Carbon Dioxide Anion Gap BUN Creatinine Est GFR ( Amer) Glucose Calcium Magnesium Total Bilirubin AST Alkaline Phosphatase Ammonia Total Protein Albumin 11/27/19 11/27/19 11/27/19 14:30 14:30 14:30 Creatine Kinase 93 CK-MB (CK-2) 2.99 Troponin I 0.044 NT-Pro-B Natriuret Pep 4090 H 11/27/19 11/28/19 11/28/19 20:00 02:10 08:23 Creatine Kinase CK-MB (CK-2) Troponin I 0.473 0.681 0.594 NT-Pro-B Natriuret Pep Impressions: Chest X-Ray 12/02/19 00:00 IMPRESSION: Enlarged cardiac silhouette and central vascular congestion without overt edema. Assessment and Plan - Diagnosis (1) JOHANNY (acute kidney injury) Is this a current diagnosis for this admission?: Yes Plan: - Crea 1.72>1.94>1.97>2.3>2.3 unclear baseline - JOHANNY on top of CKD, or cardiorenal - will hold lasix for 1 more day due to uptrending crea. Will give 1 bag of LR 80 cc then re assess, informed the nurse not to hang another bag after - patients kidney function have to improve prior to transfer for [facility] - monitor crea - avoid nephrotoxins (2) Ventricular tachycardia Is this a current diagnosis for this admission?: Yes Plan: - has a Pacemaker, would need to be updated to an ICD - on PO amiodarone - continue carvedilol - cardio following. Plan for transfer to [facility] once he is adequately diuresed for [facility] - keep K>4, Mg >2 (3) Acute on chronic systolic congestive heart failure, NYHA class 3 Is this a current diagnosis for this admission?: Yes Plan: - repeat echo EF <35%, LV moderately dilated, severe global hypokinesis - has a pacemaker - BNP 4090 - trop peaked at 0.68 trended down to 0.59 - BP borderline low - will do Lasix vacation due to uptrending Crea - started on Entresto with holding parameters - continue carvedilol, aspirin - BP soft at 99/58 will hold off on aldactone - will need cardiac cath. will likely need to be transferred for the procedure per Dr. Berry - daily weights - strict IO - fluid and sodium restriction (4) NSTEMI (non-ST elevated myocardial infarction) Is this a current diagnosis for this admission?: Yes Plan: - no evidence of ischemic changes on EKG and currently CP free. However, given VT, he will absolutely need an ischemic work up with [facility]. - Trop peaked at 0.68 decreased to 0.59 - continue aspirin, carvedilol, statin (5) Hypercapnic respiratory failure Qualifiers: Chronicity: acute on chronic Qualified Code(s): J96.22 - Acute and chronic respiratory failure with hypercapnia Is this a current diagnosis for this admission?: Yes Plan: - with more confusion noted. He has been off bipap and mostly NC for the past 2 days - ABG pH 7.21, pCO2 91, pO2 88.8m HCO3 35.9 - placed back on BIPAP - repeat ABG in 1 hr - advised nurse to keep him on BIPAP (6) Atrial fibrillation Is this a current diagnosis for this admission?: Yes Plan: - continue eliquis - on amio and carvedilol (7) Diabetes mellitus type 2 in obese Is this a current diagnosis for this admission?: Yes Plan: -restart home Lantus at half home dose of 40 units HS - SSI ACHS - carb controlled diet (8) Morbid obesity with BMI of 40.0-44.9, adult Is this a current diagnosis for this admission?: Yes Plan: - encouraged weight loss (9) PATEL (obstructive sleep apnea) Is this a current diagnosis for this admission?: Yes Plan: - on BIPAP (10) Tobacco abuse Is this a current diagnosis for this admission?: Yes Plan: - encourage cessation - nicotine patch (11) Dry eyes, bilateral Is this a current diagnosis for this admission?: Yes Plan: - due to air leak from bipap - prescribed lubricant eye drops - Plan Summary Summary: - Time Time Spent with patient: 25-34 minutes Anticipated Discharge Disposition: Home, Self Care - to be determined Anticipated Discharge Timeframe: to be determined
[2019-12-03] MEDS: BUSPIRONE HCL 10 MG TABLET PO SCH (17:55)
[2019-12-03 21:56] LABS: ARTERIAL BLOOD BASE EXCESS 8.8 mmol/L; ARTERIAL BLOOD H2CO3 2.21 mmol/L (1.05-1.35); ARTERIAL BLOOD HCO3 36.5 mmol/L (20-24); ARTERIAL BLOOD O2 SATURATION 98.3 % (94-98); ARTERIAL BLOOD PH 7.31 (7.35-7.45); ARTERIAL BLOOD PO2 133.5 mmHg (80-100); ARTERIAL BLOOD TOTAL CO2 38.7 mmol/L (23-27)
[2019-12-03 21:59] LABS: ARTERIAL BLOOD PCO2 73.4 mmHg (35-45)
[2019-12-03] MEDS: INSULIN GLARGINE,HUM.REC.ANLOG 1,000 UNIT/10 ML VIAL SUBCUT SCH (23:24)
[2019-12-04] MEDS: INSULIN LISPRO 100 UNIT/ML 3 ML VIAL SUBCUT SCH ×4 (07:24→22:18)
[2019-12-04] MEDS: AMIODARONE HCL 200 MG TABLET PO SCH ×3 (07:40→17:09)
[2019-12-04] MEDS ORDERED: FUROSEMIDE INJ/PF 40 MG/4 ML SDV IV ONE ×2 (07:55→12:00)
[2019-12-04] MEDS ORDERED: NORMAL SALINE 1000 ML 1,000 ML IV PRN (07:58)
[2019-12-04] MEDS ORDERED: CALCIUM GLUCONATE 2,222 MG in DEXTROSE 5%-WATER 100 ML IV ONE (08:09)
[2019-12-04 08:21] LABS: HEMATOCRIT 25.3 % (37.9-51.0); HEMOGLOBIN 8.2 g/dL (13.5-17.0); MEAN CORPUSCULAR HEMOGLOBIN 27.5 pg (27.0-33.4); MEAN CORPUSCULAR HGB CONC 32.3 g/dL (32.0-36.0); MEAN CORPUSCULAR VOLUME 85 fl (80-97); PLATELET COUNT 162 10^3/uL (150-450); RED BLOOD COUNT 2.98 10^6/uL (4.35-5.55); RED CELL DISTRIBUTION WIDTH 18.1 % (11.5-14.0); WHITE BLOOD COUNT 7.4 10^3/uL (4.0-10.5)
[2019-12-04 08:32] LABS: ALBUMIN 3.6 g/dL (3.5-5.0); ALKALINE PHOSPHATASE 211 U/L (38-126); ANION GAP 9 (5-19); ASPARTATE AMINO TRANSFERASE 29 U/L (17-59); BILIRUBIN,DIRECT 0.8 mg/dL (0.0-0.4); BLOOD UREA NITROGEN 84 mg/dL (7-20); CALCIUM 8.3 mg/dL (8.4-10.2); CARBON DIOXIDE 33 mmol/L (22-30); CHLORIDE 98 mmol/L (98-107); POTASSIUM 4.2 mmol/L (3.6-5.0)
[2019-12-04 08:35] LABS: GLUCOSE 46 mg/dL (75-110)
[2019-12-04 08:59] LABS: ABSOLUTE LYMPHOCYTES# (MANUAL) 0.4 10^3/uL (0.5-4.7); ABSOLUTE MONOCYTES # (MANUAL) 0.4 10^3/uL (0.1-1.4); BASOPHILS % (MANUAL) 0 % (0-2); EOSINOPHILS % (MANUAL) 1 % (0-6); LYMPHOCYTES % (MANUAL) 6 % (13-45); MONOCYTES % (MANUAL) 5 % (3-13); SEGMENTED NEUTROPHILS % (MAN) 88 % (42-78); TOTAL CELLS COUNTED 100
[2019-12-04 09:00] LABS: ANISOCYTOSIS 2+; OVALOCYTES 1+; PLATELET COMMENT ADEQUATE; TOXIC GRANULATION 1+
[2019-12-04] MEDS: CALCIUM GLUCONATE 1 GM/NS 50 ML RTU IV SCH ×2 (09:01→10:09)
[2019-12-04 09:42] LABS: ARTERIAL BLOOD BASE EXCESS 11.6 mmol/L; ARTERIAL BLOOD H2CO3 2.81 mmol/L (1.05-1.35); ARTERIAL BLOOD HCO3 40.6 mmol/L (20-24); ARTERIAL BLOOD O2 SATURATION 99.4 % (94-98); ARTERIAL BLOOD PH 7.26 (7.35-7.45); ARTERIAL BLOOD PO2 242.3 mmHg (80-100); ARTERIAL BLOOD TOTAL CO2 43.5 mmol/L (23-27)
[2019-12-04 09:44] LABS: ARTERIAL BLOOD PCO2 93.3 mmHg (35-45)
[2019-12-04] MEDS: CYCLOSPORINE 0.05% OPH EMULSIO 0.4 ML DROPERETTE OU SCH ×2 (11:09→22:27)
[2019-12-04] MEDS: CARVEDILOL 3.125 MG TABLET PO SCH ×2 (11:15→22:28)
[2019-12-04] MEDS: ATORVASTATIN CALCIUM 80 MG TABLET PO SCH (11:15)
[2019-12-04] MEDS: ASPIRIN 81 MG TABLET, CHEWABLE PO SCH (11:15)
[2019-12-04] MEDS: SACUBITRIL/VALSARTAN 24 MG/26 MG TABLET PO SCH ×2 (11:15→17:09)
[2019-12-04] MEDS: APIXABAN 5 MG TABLET PO SCH ×2 (11:15→17:09)
--- NOTE | 2019-12-04 11:32 | RADIOLOGY REPORT (SQ) ---
EXAM DESCRIPTION: CHEST SINGLE VIEW IMAGES COMPLETED DATE/TIME: 12/04/2019 11:11 am REASON FOR STUDY: worsening abg COMPARISON: 12/02/2019 EXAM PARAMETERS: NUMBER OF VIEWS: One view. TECHNIQUE: Single frontal radiographic view of the chest acquired. RADIATION DOSE: NA LIMITATIONS: Suboptimal patient positioning. FINDINGS: LUNGS AND PLEURA: Low lung volumes with resultant bronchovascular crowding. No discrete f ocal consolidation, pleural effusion, or pneumothorax demonstrated. MEDIASTINUM AND HILAR STRUCTURES: No masses. Contour normal. HEART AND VASCULAR STRUCTURES: Stable cardiomegaly with mild central vascular congestion. BONES: No acute findings. HARDWARE: Loop recorder and transvenous pacer, stable. OTHER: No other significant finding. IMPRESSION: Low lung volumes. Otherwise stable radiographic appearance of the chest demonstrating c ardiomegaly with mild central vascular congestion. TECHNICAL DOCUMENTATION: JOB ID: [id number] 2010 [employer]- All Rights Reserved Reading location - IP/workstation name: [email or web address]
[2019-12-04 12:18] LABS: ARTERIAL BLOOD BASE EXCESS 5.9 mmol/L; ARTERIAL BLOOD FIO2 45%; ARTERIAL BLOOD H2CO3 2.11 mmol/L (1.05-1.35); ARTERIAL BLOOD HCO3 33.4 mmol/L (20-24); ARTERIAL BLOOD PO2 125.9 mmHg (80-100); ARTERIAL BLOOD TOTAL CO2 35.5 mmol/L (23-27)
[2019-12-04 12:19] LABS: ARTERIAL BLOOD PCO2 70.2 mmHg (35-45)
--- NOTE | 2019-12-04 13:55 | PDOC PROGRESS REPORT ---
Subjective Progress Note for:: 12/04/19 Subjective:: THEODORE SON is a 69 year old male with PMH of HTN, HLD, morbid obesity (BMI 43), atrial fibrillation on AC, CHB s/p pacemaker, HFrEF (40%), ventricular tachycardia, PAD, Follicular Lymphoma, insulin dependent DM2, and PATEL on BIPAP who presented to the ED via EMS which CC of SOB and CP that started around 1000 this morning. He was in his usual state of health when he went to bed last night. When he woke up this morning, he reported some pressure-like chest pain associated with nausea. His called EMS. EMS reported that the patient was in V-tach on the monitor with a rate in the 170s upon their arrival. They administered 2 rounds of Adenosine (initially 6 mg, then 12 mg) without success, so they then administered 150 mg Amiodarone with subsequent conversion to a slower rate. Patient is followed by Dr. Berry for cardiology. He and his state that he has been compliant with his medication regimen and his diuretics, but continues to have progressively worsening SOB and GALLEGO which has become worse throughout the last month. He is barely able to ambulate due to the SOB. He uses a walker to get around in the house, but doesn't walk outside. He is not on home O2 therapy. 11/29/19. D2 Hospital stay. He was seen and examined at bedside. On Bipap saturating 96%. Breathing is about the same as yesterday, denies any chest pain, no palpitations, no syncope. Cardiology following. Plan to continue diuresis for now, monitor Crea with diuresis. 11/30/19. D3 hospital stay. He was seen and examined at bedside. He was off his BiPAP machine and he denies feeling short of breath retarded. He denies any chest pain no palpitations. Creatinine mildly elevated today. Will hold off on Lasix and resume the next day. 12/01/19. D4 hospital stay. He was seen and examined at bedside. He is back on his bipap. He seems more confused today compared to yesterday. Creatinine seems worse today 2.33 from 1.99 yesterday. Will give him 1 bag of LR and see if this improves his creatinine by tomorrow. I will continue to hold his lasix for today. He also complained of dry eyes probably from air leak from his bipap. Started on eye drops 12/02/19. D5 hospital stay. He was seen and examined at bedside. According to his who stayed with him overnight, he seems to get more confused at night. ABG repeat today showed a pCO2 of 91. HE was placed back on Bipap. Confusion likely from delirium in addition to CO2 retention. Will not be able to transfer today. 12/03/19. D6 hospital stay. He was seen and examined at bedside. He seemed more drowsy today despite being on BIPAP overnight. He opens his eyes when called but often falls asleep. Repeat ABG this morning showed pH 7.26, pCO2 93.3, pO2 242. Patient was given a bigger more fitting mask. pH improved to 7.3, pCo2 125.9, pO2 125.9. Magnesium elevated today as well to 3.0 and this may be aggravating his mental status. he was given 1 dose of calcium gluconate. Will give IV fluids and lasix. Nephro consulted for JOHANNY. Reason For Visit: VENTRICULAR TACHYCARDIA, ACUTE ON CHRONIC Physical Exam Vital Signs: Temp Pulse Resp BP Pulse Ox 96.2 F L 80 22 H 112/66 95 12/04/19 09:34 12/04/19 07:23 12/04/19 12:30 12/04/19 07:23 12/04/19 12:30 Intake & Output 12/03/19 12/04/19 12/05/19 06:59 06:59 06:59 Intake Total 460 1175 Output Total 50 300 Balance 410 875 Weight 126 kg 126 kg General appearance: PRESENT: mild distress, obese Head exam: PRESENT: atraumatic, normocephalic Eye exam: PRESENT: EOMI, PERRLA Mouth exam: PRESENT: moist Neck exam: PRESENT: full ROM Respiratory exam: PRESENT: crackles, decreased breath sounds, rales, symmetrical, unlabored Cardiovascular exam: PRESENT: irregular rhythm, +S1, +S2 Pulses: PRESENT: +2 pedal pulses bilateral GI/Abdominal exam: PRESENT: normal bowel sounds, soft. ABSENT: rebound, te nderness Extremities exam: PRESENT: full ROM Musculoskeletal exam: PRESENT: full ROM Neurological exam: PRESENT: altered, oriented to person Psychiatric exam: PRESENT: normal mood Skin exam: PRESENT: normal color Results Laboratory Results: 12/04/19 06:25 12/04/19 06:25 12/03/19 12/03/19 12/04/19 13:20 21:39 06:25 WBC RBC Hgb Hct MCV MCH MCHC RDW Plt Count Seg Neutrophils % Carbonic Acid 2.74 H 2.21 H HCO3/H2CO3 Ratio 13:1 16:1 ABG pH 7.21 L 7.31 L ABG pCO2 91.1 H* 73.4 H* ABG pO2 88.8 133.5 H ABG HCO3 35.9 H 36.5 H ABG O2 Saturation 94.3 98.3 H ABG Base Excess 6.8 8.8 FiO2 3L 55% Sodium Potassium Chloride Carbon Dioxide Anion Gap BUN Creatinine Est GFR ( Amer) Glucose Calcium Magnesium 3.0 H Total Bilirubin AST Alkaline Phosphatase Total Protein Albumin 12/04/19 12/04/19 12/04/19 06:25 06:25 09:08 WBC 7.4 RBC 2.98 L Hgb 8.2 L Hct 25.3 L MCV 85 MCH 27.5 MCHC 32.3 RDW 18.1 H Plt Count 162 Seg Neutrophils % Not Reportable Carbonic Acid 2.81 H HCO3/H2CO3 Ratio 14:1 ABG pH 7.26 L ABG pCO2 93.3 H* ABG pO2 242.3 H ABG HCO3 40.6 H ABG O2 Saturation 99.4 H ABG Base Excess 11.6 FiO2 55% Sodium 140.3 Potassium 4.2 Chloride 98 Carbon Dioxide 33 H Anion Gap 9 BUN 84 H Creatinine 2.34 H Est GFR ( Amer) 34 L Glucose 46 L Calcium 8.3 L Magnesium Total Bilirubin 1.0 AST 29 Alkaline Phosphatase 211 H Total Protein 6.0 L Albumin 3.6 12/04/19 12:00 WBC RBC Hgb Hct MCV MCH MCHC RDW Plt Count Seg Neutrophils % Carbonic Acid 2.11 H HCO3/H2CO3 Ratio 15:1 ABG pH 7.30 L ABG pCO2 70.2 H* ABG pO2 125.9 H ABG HCO3 33.4 H ABG O2 Saturation 98.0 ABG Base Excess 5.9 FiO2 45% Sodium Potassium Chloride Carbon Dioxide Anion Gap BUN Creatinine Est GFR ( Amer) Glucose Calcium Magnesium Total Bilirubin AST Alkaline Phosphatase Total Protein Albumin 11/27/19 11/27/19 11/27/19 14:30 14:30 14:30 Creatine Kinase 93 CK-MB (CK-2) 2.99 Troponin I 0.044 NT-Pro-B Natriuret Pep 4090 H 11/27/19 11/28/19 11/28/19 20:00 02:10 08:23 Creatine Kinase CK-MB (CK-2) Troponin I 0.473 0.681 0.594 NT-Pro-B Natriuret Pep Impressions: Chest X-Ray 12/04/19 00:00 IMPRESSION: Low lung volumes. Otherwise stable radiographic appearance of the chest demonstrating cardiomegaly with mild central vascular congestion. Assessment and Plan - Diagnosis (1) JOHANNY (acute kidney injury) Is this a current diagnosis for this admission?: Yes Plan: - Crea 1.72>1.94>1.97>2.3>2.3 unclear baseline - Mg 3.0 patient drowsy. this is likely 2/2 to CKD since he has not been receiving any magnesium containing medication - JOHANNY on top of CKD, or cardiorenal - will give fluids with lasix and calcium gluconate for hypermagnesemia. Will stop IV fluids after 12 hrs as he has heart failure - repeat Mg at 8 pm. - patients kidney function have to improve prior to transfer for [facility] - monitor crea - avoid nephrotoxins (2) Ventricular tachycardia Is this a current diagnosis for this admission?: Yes Plan: - has a Pacemaker, would need to be updated to an ICD - on PO amiodarone - continue carvedilol - cardio following. Plan for transfer to [facility] once he is adequately diuresed for [facility] - keep K>4, Mg >2 (3) Acute on chronic systolic congestive heart failure, NYHA class 3 Is this a current diagnosis for this admission?: Yes Plan: - repeat echo EF <35%, LV moderately dilated, severe global hypokinesis - has a pacemaker - BNP 4090 - trop peaked at 0.68 trended down to 0.59 - BP borderline low - started on Entresto with holding parameters - continue carvedilol, aspirin - BP soft at 99/58 will hold off on aldactone - started on IV lfuids briefly for worsening kidney function and hypermagnesemia. Will stop after 12 hrs - will need cardiac cath. will likely need to be transferred for the procedure per Dr. Berry - daily weights 135.6>126 kg - strict IO - fluid and sodium restriction (4) NSTEMI (non-ST elevated myocardial infarction) Is this a current diagnosis for this admission?: Yes Plan: - no evidence of ischemic changes on EKG and currently CP free. However, given VT, he will absolutely need an ischemic work up with [facility]. - Trop peaked at 0.68 decreased to 0.59 - continue aspirin, carvedilol, statin (5) Hypercapnic respiratory failure Qualifiers: Chronicity: acute on chronic Qualified Code(s): J96.22 - Acute and chronic respiratory failure with hypercapnia Is this a current diagnosis for this admission?: Yes Plan: - with more confusion noted. He has been off bipap and mostly NC for the past 2 days - ABG pH 7.3, pCO2 70, pO2 125.9, bicarb 33.4 - placed back on BIPAP - advised nurse to keep him on BIPAP (6) Atrial fibrillation Is this a current diagnosis for this admission?: Yes Plan: - continue eliquis - on amio and carvedilol (7) Diabetes mellitus type 2 in obese Is this a current diagnosis for this admission?: Yes Plan: -restart home Lantus at half home dose of 40 units HS - SSI ACHS - carb controlled diet (8) Morbid obesity with BMI of 40.0-44.9, adult Is this a current diagnosis for this admission?: Yes Plan: - encouraged weight loss (9) PATEL (obstructive sleep apnea) Is this a current diagnosis for this admission?: Yes Plan: - on BIPAP (10) Tobacco abuse Is this a current diagnosis for this admission?: Yes Plan: - encourage cessation - nicotine patch (11) Dry eyes, bilateral Is this a current diagnosis for this admission?: Yes Plan: - due to air leak from bipap - prescribed lubricant eye drops - Plan Summary Summary: - Time Time Spent with patient: 35 or more minutes Anticipated Discharge Disposition: Tertiary Anticipated Discharge Timeframe: to be determined
[2019-12-04] MEDS: BUSPIRONE HCL 10 MG TABLET PO SCH (17:09)
[2019-12-04 19:00] LABS: ALBUMIN 3.4 g/dL (3.5-5.0); ALKALINE PHOSPHATASE 209 U/L (38-126); ANION GAP 10 (5-19); ASPARTATE AMINO TRANSFERASE 27 U/L (17-59); BILIRUBIN,DIRECT 0.8 mg/dL (0.0-0.4); BLOOD UREA NITROGEN 88 mg/dL (7-20); CALCIUM 8.3 mg/dL (8.4-10.2); CARBON DIOXIDE 35 mmol/L (22-30); CHLORIDE 96 mmol/L (98-107); GLUCOSE 95 mg/dL (75-110); POTASSIUM 4.3 mmol/L (3.6-5.0); TOTAL PROTEIN 5.7 g/dL (6.3-8.2)
[2019-12-04] MEDS: INSULIN GLARGINE,HUM.REC.ANLOG 1,000 UNIT/10 ML VIAL SUBCUT SCH (22:27)
[2019-12-05] MEDS: AMIODARONE HCL 200 MG TABLET PO SCH ×2 (05:52→17:52)
[2019-12-05 07:19] LABS: ABSOLUTE EOSINOPHILS # (AUTO) 0.1 10^3/uL (0.0-0.6); ABSOLUTE LYMPHOCYTES (AUTO) 0.4 10^3/uL (0.5-4.7); ABSOLUTE NEUT (AUTO) 4.8 10^3/uL (1.7-8.2); BASOPHILS % (AUTO) 0.5 % (0-2); EOSINOPHILS % (AUTO) 1.7 % (0-6); HEMATOCRIT 20.5 % (37.9-51.0); LYMPHOCYTES % (AUTO) 5.6 % (13-45); MEAN CORPUSCULAR HEMOGLOBIN 27.5 pg (27.0-33.4); MEAN CORPUSCULAR HGB CONC 33.1 g/dL (32.0-36.0); MEAN CORPUSCULAR VOLUME 83 fl (80-97); MONOCYTES % (AUTO) 15.8 % (3-13); PLATELET COUNT 158 10^3/uL (150-450); RED BLOOD COUNT 2.47 10^6/uL (4.35-5.55); RED CELL DISTRIBUTION WIDTH 18.3 % (11.5-14.0); SEGMENTED NEUTROPHILS % (AUTO) 76.4 % (42-78); TOTAL CELLS COUNTED % (AUTO) 100 %; WHITE BLOOD COUNT 6.3 10^3/uL (4.0-10.5)
[2019-12-05 07:21] LABS: HEMOGLOBIN 6.8 g/dL (13.5-17.0)
[2019-12-05 07:24] LABS: ALBUMIN 3.5 g/dL (3.5-5.0); ALKALINE PHOSPHATASE 191 U/L (38-126); ANION GAP 7 (5-19); ASPARTATE AMINO TRANSFERASE 31 U/L (17-59); BILIRUBIN,DIRECT 0.8 mg/dL (0.0-0.4); BILIRUBIN,TOTAL 1.1 mg/dL (0.2-1.3); BLOOD UREA NITROGEN 100 mg/dL (7-20); CALCIUM 8.2 mg/dL (8.4-10.2); CARBON DIOXIDE 35 mmol/L (22-30); CHLORIDE 98 mmol/L (98-107); GLUCOSE 71 mg/dL (75-110); POTASSIUM 4.2 mmol/L (3.6-5.0); TOTAL PROTEIN 5.7 g/dL (6.3-8.2)
[2019-12-05] MEDS ORDERED: NORMAL SALINE 250 ML IV PRN ×2 (07:54)
--- NOTE | 2019-12-05 09:42 | PDOC PROGRESS REPORT ---
Subjective Progress Note for:: 12/05/19 Subjective:: THEODORE SON is a 69 year old male with history of obesity, hypertension, hyperlipidemia, diabetes, sleep apnea, COPD, heart failure with reduced ejection fraction, lymphoma and atrial fibrillation who is consulted to our service for further evaluation of heart failure. He has had multiple hospitalizations for heart failure in the recent past the most recent of which [facility] through 02/07/19 after he presented to [facility] not feeling well and was found to be in complete heart block therefore he underwent pacemaker placement on 01/24/[address] Christian. During that hospitalization he was found also to have ventricular tachycardia, decompensated heart failure, acute kidney injury. His ejection fraction was 40%. He also developed pocket hematoma at the site of the pacemaker reason why his Eliquis was held. His device interrogation in June 2019 demonstrated recurrence of his atrial fibrillation.he had been in his usual state of health until the day of admission when he called EMS due to pressure-like chest pain associated with nausea. EMS found the patient in ventricular tachycardia which did not respond to 2 doses of adenosine followed by 150 mg of amiodarone with resolution of the rhythm. He had an uneventful night and without further episodes of ventricular tachycardia. He is on BiPAP and easily arousable. He appears to be uncomfortable in bed however denies chest pain, shortness of breath, palpitations, dizziness or lightheadedness. His most recent pacemaker interrogation in October 2019 demonstrated atrial flutter with VT of unknown duration. He has received only 1 dose of Lasix at 2200 last night but his intake and output has not been reported yet this morning. 12/05/2019: The patient was initially admitted on 11/27/2019 for heart failure decompensation. He had been followed by Dr. Melara during the last week. The patient had been diuresed however developed acute kidney injury with an elevated creatinine which has remained elevated at 2.3 with worsening of his BUN which is currently 100. His Lasix was discontinued because of his JOHANNY. His case is now complicated by a significant drop in his hemoglobin and his reports that he had been having some bleeding. He recently had a black bowel movement and he has multiple ecchymoses throughout his body. His nurse reports that he is now BiPAP dependent with some mental status changes. Of note, his telemetry shows a paced rhythm without recurrence of VT. Physical exam on 12/05/2019: GENERAL: Sleeping on a BiPAP machine open his eyes to commands but is unable to recognize me. Periorbital edema is noted. He is moving in bed and moans frequently, appears uncomfortable. Disheveled and morbidly obese. HEENT: Normocephalic, atraumatic. Pupils equal. Sclerae anicteric. Oropharynx dry. NECK: Difficult to evaluate for JVD due to his body habitus. No carotid bruits. LUNGS: Difficult to assess due to BiPAP background noise however no significant crackles noted. CARDIOVASCULAR: Regular rate and rhythm, normal S1 and S2 without murmurs, rubs, or gallops. PMI not displaced. ABDOMEN: Difficult to evaluate for organomegaly given his obesity. No bruit. No splenomegaly or hepatomegaly. No abdominal aorta bruit noted. EXTREMITIES: No pitting edema bilaterally, no cyanosis, no clubbing. +2 pulses femoral and pedal pulses bilaterally. MUSCULOSKELETAL: No chest tenderness to palpation. Multiple ecchymosis throughout his body. NEUROLOGIC: Nonfocal. No gross sensory or motor deficits bilateral upper or lower extremities. NAME: THEODORE SON DATE OF : 1950 PROVIDER: CHAD JAIN MD TIME D/T: 10:46 / 11:29 DATE OF ADMISSION: 01/19/2019 DATE OF DISCHARGE: 02/07/2019 DISCHARGE DIAGNOSES: 1. Complete heart block, status post pacemaker placement on 01/24/2019. 2. Ventricular tachycardia which has resolved. 3. Acute on top of chronic hypoxic respiratory failure, felt related to chronic obstructive pulmonary disease. 4. Obstructive sleep apnea, on CPAP. 5. Acute decompensated congestive heart failure which is systolic and diastolic with ejection fraction of 40%. 6. Ambulatory dysfunction. 7. Type 2 diabetes mellitus with peripheral neuropathy and hypoglycemia. 8. Hyponatremia, resolved. 9. Acute kidney injury, resolved. 10. Anemia felt of chronic illness. 11. Klebsiella pneumonia urinary tract infection, status post full course of therapy. 12. Hyperphosphatemia, resolved. 13. Persistent atrial fibrillation. At this point in time on anticoagulation due to bleeding around his pacemaker. 14. Postoperative hematoma. 15. Hyperlipidemia. 16. Gastroesophageal reflux disease. 17. Morbid obesity. Body mass index of almost 40. 18. Possible adverse reaction to Depakote which was discontinued. HISTORY OF PRESENT ILLNESS AND HOSPITALIZATION COURSE: This is a very delightful 68-year-old male patient with past medical history significant for atrial fibrillation, morbid obesity, and diabetes mellitus requiring insulin who initially presented to [facility] not feeling well. The patient was diagnosed with significant bradycardia and complete heart block, he was having acute kidney injury and hyperkalemia and he was transferred to our facility, the patient was initially admitted to the ICU, he was hydrated and he was placed on intravenous steroids. The patient was seen by Cardiology and he had a biventricular pacemaker placed on 01/24 that was complicated with some hematoma at the incision site. His anticoagulation was discontinued. The patient was kept only on aspirin for now. His hematoma has indeed improved. He was also diagnosed with UTI with Klebsiella pneumonia that was treated with IV antibiotics. The patient is afebrile. His WBC has normalized. He also had encephalopathy which felt related to multiple factors including CO2 narcosis, hypoglycemia as well as medications. We did adjust his diabetes regimen, I think we will discharge him home on 20 of Lantus, his dose to be adjusted accordingly as outpatient. The patient also had a chest x-ray that showed no evidence of pneumothorax or large effusions. He was placed on Lasix 20 mg p.o. b.i.d. Again, his dose can be adjusted accordingly as an outpatient. The patient again had improvement of his mental status, his blood sugar has been under control, indeed, I needed to change his Lantus to 20 units subcutaneously. I have made a lot of changes of his medications, Depakote was discontinued. His trazodone was discontinued. I do not think he needs any pain medications other than Tylenol for now. The patient has done well over the last 24 hours. He has been up and communicating pretty well, he needs to sleep with the BiPAP. He is on oxygen at home. Initially recommended placement to SNF however, his family insisted to take him home. I will arrange for home health. The patient has some equipment, he has BiPAP and he has oxygen. He has a very supportive family. I think he is stable for discharge today. He was up in his bed, mentating well this morning. He had a pretty good night. Eating well. No chest pain. No swelling. His vital signs and labs are stable. PHYSICAL EXAMINATION: GENERAL: He is alert, awake, mentating well with no apparent distress. VITAL SIGNS: Temperature was 36.5 degrees, pulse 61, respiratory rate 18, blood pressure was 146/51. HEENT: Atraumatic. Oral mucosa is moist. NECK: Supple. No goiter. CHEST: Clear. HEART: Regular, not tachycardic. ABDOMEN: Soft, nontender. Bowel sounds are active. MUSCULOSKELETAL EXAM: Good pulses. No clubbing or cyanosis. NEURO EXAM: Mentating well, no slurred speech or facial asymmetry. The patient has debility. No tremors or focal deficits. LABORATORY DATA: WBC was 5.8, hemoglobin 9.6, platelet count 149,000. Sodium 140, potassium 4.1, BUN of 24, creatinine of 0.88. Phosphorus was 3.5 with magnesium of 1.8. Blood sugar 220 and 240. Blood cultures negative. DIAGNOSTIC DATA: Echocardiogram on 01/20 showed ejection fraction of 40%- 45% with some global hypokinesia. The patient has trace mitral regurgitation. CONSULTS: 1. Physical therapy. 2. Cardiology service. 3. EP service. DISPOSITION: Home today with home health. MEDICATIONS: Please refer to the medication reconciliation form that was on the chart. CODE STATUS: The patient is DNR that will be honored. CONDITION ON DISCHARGE: Stable. DIET: Cardiac/1800 ADA. FOLLOW-UP: 1. Follow up with Dr. Berry from Cardiology in 1 week, he has an appointment on the 18 of February. We need to discuss and decide about his Eliquis that was held during this admission due to hematoma at his procedure site. 2. Follow up with his PCP in a week. 3. Call 911 for any emergency or unusual symptoms. 4. Check his blood sugar at least twice a day, document the readings for further adjustment of the new regimen as outpatient. 5. I did talk to the patient at length about his condition, his was at bedside. She is his main caregiver. I think he is stable for discharge. Outpatient general cardiology visit on Jul 20: 69-year-old male with history of obesity, hypertension, hyperlipidemia, diabetes, sleep apnea, COPD, heart failure with reduced ejection fraction, lymphoma and atrial fibrillation who returns today for follow-up on heart failure. He has had multiple hospitalizations for heart failure as described below. The patient has done well since the prior visit and lost 4 more pounds. He feels much better. There has been no more interim hospitalizations. [facility] through 02/07/19 after he presented to [facility] not feeling well and was found to be in complete heart block therefore he underwent pacemaker placement on 01/24/[address] Christian. During that hospitalization he was found also to have ventricular tachycardia, decompensated heart failure, acute kidney injury. His ejection fraction was 40%. He also developed pocket hematoma at the site of the pacemaker reason why his Eliquis was held. His device interrogation in June 2019 demons trated recurrence of his atrial fibrillation. Hospitalizations: -07/07/16 through 07/11/16 at [facility]: Decompensated heart failure. -Unknown date at [facility]: Severe infection in the scrotal area requiring surgery. -June 2018 at [facility]: Respiratory failure, anemia and paroxysmal atrial fibrillation after he was found obtunded at home. He required intubation. -01/19/19 through 02/07/19: [facility] for complete heart block, ventricular tachycardia, acute on chronic hypoxemic respiratory failure secondary to COPD, acute decompensated heart failure. Reason For Visit: VENTRICULAR TACHYCARDIA, ACUTE ON CHRONIC Physical Exam Vital Signs: Temp Pulse Resp BP Pulse Ox 98.0 F 84 18 111/57 L 93 12/05/19 03:47 12/05/19 03:47 12/05/19 03:57 12/05/19 03:47 12/05/19 03:57 Intake & Output 12/04/19 12/05/19 12/06/19 06:59 06:59 06:59 Intake Total 1175 1373 Output Total 300 Balance 875 1373 Weight 126 kg 121.9 kg Results Laboratory Results: 12/05/19 06:46 12/05/19 06:46 12/04/19 12/04/19 12/04/19 06:25 06:25 09:08 WBC 7.4 RBC 2.98 L Hgb 8.2 L Hct 25.3 L MCV 85 MCH 27.5 MCHC 32.3 RDW 18.1 H Plt Count 162 Seg Neutrophils % Not Reportable Carbonic Acid 2.81 H HCO3/H2CO3 Ratio 14:1 ABG pH 7.26 L ABG pCO2 93.3 H* ABG pO2 242.3 H ABG HCO3 40.6 H ABG O2 Saturation 99.4 H ABG Base Excess 11.6 FiO2 55% Sodium 140.3 Potassium 4.2 Chloride 98 Carbon Dioxide 33 H Anion Gap 9 BUN 84 H Creatinine 2.34 H Est GFR ( Amer) 34 L Glucose 46 L Calcium 8.3 L Magnesium Total Bilirubin 1.0 AST 29 Alkaline Phosphatase 211 H Total Protein 6.0 L Albumin 3.6 12/04/19 12/04/19 12/05/19 12:00 18:20 06:46 WBC 6.3 RBC 2.47 L Hgb 6.8 L Hct 20.5 L MCV 83 MCH 27.5 MCHC 33.1 RDW 18.3 H Plt Count 158 Seg Neutrophils % 76.4 Carbonic Acid 2.11 H HCO3/H2CO3 Ratio 15:1 ABG pH 7.30 L ABG pCO2 70.2 H* ABG pO2 125.9 H ABG HCO3 33.4 H ABG O2 Saturation 98.0 ABG Base Excess 5.9 FiO2 45% Sodium 140.7 Potassium 4.3 Chloride 96 L Carbon Dioxide 35 H Anion Gap 10 BUN 88 H Creatinine 2.26 H Est GFR ( Amer) 35 L Glucose 95 Calcium 8.3 L Magnesium 3.0 H Total Bilirubin 1.0 AST 27 Alkaline Phosphatase 209 H Total Protein 5.7 L Albumin 3.4 L 12/05/19 06:46 WBC RBC Hgb Hct MCV MCH MCHC RDW Plt Count Seg Neutrophils % Carbonic Acid HCO3/H2CO3 Ratio ABG pH ABG pCO2 ABG pO2 ABG HCO3 ABG O2 Saturation ABG Base Excess FiO2 Sodium 139.8 Potassium 4.2 Chloride 98 Carbon Dioxide 35 H Anion Gap 7 BUN 100 H Creatinine 2.32 H Est GFR ( Amer) 34 L Glucose 71 L Calcium 8.2 L Magnesium Total Bilirubin 1.1 AST 31 Alkaline Phosphatase 191 H Total Protein 5.7 L Albumin 3.5 11/27/19 11/27/19 11/27/19 14:30 14:30 14:30 Creatine Kinase 93 CK-MB (CK-2) 2.99 Troponin I 0.044 NT-Pro-B Natriuret Pep 4090 H 11/27/19 11/28/19 11/28/19 20:00 02:10 08:23 Creatine Kinase CK-MB (CK-2) Troponin I 0.473 0.681 0.594 NT-Pro-B Natriuret Pep Impressions: Chest X-Ray 12/04/19 00:00 IMPRESSION: Low lung volumes. Otherwise stable radiographic appearance of the chest demonstrating cardiomegaly with mild central vascular congestion. 12/05/19 06:46 12/05/19 06:46 MCV 83 fl (80-97) 12/05/19 06:46 MCH 27.5 pg (27.0-33.4) 12/05/19 06:46 MCHC 33.1 g/dL (32.0-36.0) 12/05/19 06:46 RDW 18.3 % (11.5-14.0) H 12/05/19 06:46 Seg Neutrophils % 76.4 % (42-78) 12/05/19 06:46 Carbonic Acid 2.11 mmol/L (1.05-1.35) H 12/04/19 12:00 HCO3/H2CO3 Ratio 15:1 12/04/19 12:00 ABG pH 7.30 (7.35-7.45) L 12/04/19 12:00 ABG pCO2 70.2 mmHg (35-45) H* 12/04/19 12:00 ABG pO2 125.9 mmHg (80-100) H 12/04/19 12:00 ABG HCO3 33.4 mmol/L (20-24) H 12/04/19 12:00 ABG O2 Saturation 98.0 % (94-98) 12/04/19 12:00 ABG Base Excess 5.9 mmol/L 12/04/19 12:00 VBG pH 7.30 (7.30-7.42) 11/27/19 16:18 VBG pCO2 71.5 mmHg (35-63) H* 11/27/19 16:18 VBG HCO3 34.0 mmol/L (20-32) H 11/27/19 16:18 VBG Base Excess 5.9 mmol/L 11/27/19 16:18 FiO2 45% 12/04/19 12:00 Chloride 98 mmol/L (98-107) 12/05/19 06:46 Carbon Dioxide 35 mmol/L (22-30) H 12/05/19 06:46 Anion Gap 7 (5-19) 12/05/19 06:46 Est GFR ( Amer) 34 (>60) L 12/05/19 06:46 Glucose 71 mg/dL (75-110) L 12/05/19 06:46 Calcium 8.2 mg/dL (8.4-10.2) L 12/05/19 06:46 Magnesium 3.0 mg/dL (1.6-2.3) H 12/04/19 18:20 Total Bilirubin 1.1 mg/dL (0.2-1.3) 12/05/19 06:46 AST 31 U/L (17-59) 12/05/19 06:46 Alkaline Phosphatase 191 U/L (38-126) H 12/05/19 06:46 Ammonia 39.7 umol/L (9-33) H 12/03/19 11:33 Total Protein 5.7 g/dL (6.3-8.2) L 12/05/19 06:46 Albumin 3.5 g/dL (3.5-5.0) 12/05/19 06:46 TSH 2.09 uIU/mL (0.47-4.68) 11/28/19 08:23 Free T4 1.18 ng/dL (0.78-2.19) 11/28/19 08:23 Urine Color YELLOW 11/27/19 16:00 Urine Appearance CLEAR 11/27/19 16:00 Urine pH 5.0 (5.0-9.0) 11/27/19 16:00 Ur Specific [place] 1.016 11/27/19 16:00 Urine Protein 30 mg/dL (NEGATIVE) H 11/27/19 16:00 Urine Glucose (UA) NEGATIVE mg/dL (NEGATIVE) 11/27/19 16:00 Urine Ketones NEGATIVE mg/dL (NEGATIVE) 11/27/19 16:00 Urine Blood NEGATIVE (NEGATIVE) 11/27/19 16:00 Urine Nitrite NEGATIVE (NEGATIVE) 11/27/19 16:00 Ur Leukocyte Esterase NEGATIVE (NEGATIVE) 11/27/19 16:00 Urine WBC (Auto) 1 /HPF 11/27/19 16:00 Urine RBC (Auto) 0 /HPF 11/27/19 16:00 11/27/19 11/27/19 11/27/19 14:30 14:30 14:30 Creatine Kinase 93 CK-MB (CK-2) 2.99 Troponin I 0.044 NT-Pro-B Natriuret Pep 4090 H 11/27/19 11/28/19 11/28/19 20:00 02:10 08:23 Creatine Kinase CK-MB (CK-2) Troponin I 0.473 0.681 0.594 NT-Pro-B Natriuret Pep Current Medication List Generic Name Dose Route Start Last Admin Trade Name Freq PRN Reason Stop Dose Admin Acetaminophen 650 mg 11/27/19 18:10 12/01/19 18:15 Tylenol 325 Mg Tablet PO 12/27/19 18:09 650 mg Q4HP PRN Administration FOR PAIN Albuterol/Ipratropium 3 ml 12/02/19 08:46 Duoneb 3 Ml Ampul NEB 01/01/20 08:45 RTQ4HP PRN SHORTNESS OF BREATH Amiodarone HCl 400 mg 11/28/19 17:00 12/05/19 05:52 Cordarone 200 Mg Tablet PO 12/28/19 16:59 400 mg Q12A EMIL Administration Apixaban 5 mg 11/28/19 18:00 12/04/19 17:09 Eliquis 5 Mg Tablet PO 12/28/19 17:59 5 mg BID EMIL Administration Aspirin 81 mg 11/27/19 18:30 12/04/19 11:15 Aspirin 81 Mg Chewable Tablet PO 12/27/19 18:29 81 mg DAILY EMIL Administration Atorvastatin Calcium 80 mg 11/28/19 10:00 12/04/19 11:15 Lipitor 80 Mg Tablet PO 12/28/19 09:59 80 mg DAILY EMIL Administration Buspirone HCl 10 mg 11/28/19 18:00 12/04/19 17:09 Buspar 10 Mg Tablet PO 12/28/19 17:59 10 mg QPM EMIL Administration Carvedilol 3.125 mg 11/28/19 22:00 12/04/19 22:28 Coreg 3.125 Mg Tablet PO 12/28/19 21:59 3.125 mg Q12 EMIL Administration Cyclosporine 1 drop 12/02/19 14:00 12/04/19 22:27 Restasis 0.05% Oph Emulsion Pf 0.4 Ml OU 01/01/20 13:59 1 drop Q12 EMIL Administration Dextrose 12.5 gm 11/27/19 18:22 12/04/19 07:31 Dextrose Inj 50% Syringe (25 Gm/50 Ml) IV 12/27/19 18:21 12.5 gm PRN PRN Administration FOR BG 50-69 IN ALERT PATIENT Protocol Dextrose 25 gm 11/27/19 18:22 Dextrose Inj 50% Syringe (25 Gm/50 Ml) IV 12/27/19 18:21 PRN PRN PER PROTOCOL Protocol Glucagon 1 mg 11/27/19 18:22 Glucagen Inj 1 Mg Vial IM 12/27/19 18:21 PRN PRN Evaluate for BG < 70 Protocol Glucose 15 gm 11/27/19 18:22 Glutose 40% Gel 15 Gm Tube PO 12/27/19 18:21 PRN PRN FOR BG 50-69 IN ALERT PATIENT Protocol Glucose 30 gm 11/27/19 18:22 Glutose 40% Gel 15 Gm Tube PO 12/27/19 18:21 PRN PRN FOR BG < 50 IN ALERT PATIENT Protocol Insulin Glargine 40 unit 11/27/19 22:00 12/04/19 22:27 Lantus Insulin 100 Unit/1 Ml 10 Ml SUBCUT 12/27/19 21:59 40 unit QHS EMIL Administration Insulin Human Lispro 0 - 12 unit 11/27/19 22:00 12/04/19 22:18 Humalog Insulin 100 Unit/1 Ml 3 Ml Vial SUBCUT 12/27/19 21:59 Not Given ACHS [facility] Protocol Melatonin 10 mg 11/30/19 20:18 12/02/19 23:02 Melatonin 5 Mg Tablet PO 12/30/19 20:17 10 mg HSP PRN Administration FOR SLEEP Nicotine 1 each 11/27/19 18:46 11/27/19 21:18 Nicoderm 21 Mg/24 Hr Transderm Patch TD 12/27/19 18:45 1 each DAILYP PRN Administration nicotine craving Ondansetron HCl 4 mg 11/28/19 14:00 Zofran Inj/Pf 4 Mg/2 Ml Sdv IV 12/27/19 18:09 Q8HP PRN FOR NAUSEA/VOMITING Sacubitril/Valsartan 1 tab 11/29/19 10:00 12/04/19 17:09 Entresto 24 Mg/26 Mg Tablet PO 12/29/19 09:59 1 tab BID EMIL Administration Discontinued Medications Generic Name Dose Route Start Last Admin Trade Name Freq PRN Reason Stop Dose Admin Acetazolamide 500 mg 10/12/20 22:00 12/01/19 21:13 Diamox 250 Mg Tab PO 12/28/19 21:59 500 mg QHS EMIL Administration Albuterol/Ipratropium Confirm 12/02/19 08:50 12/02/19 17:43 Duoneb 3 Ml Ampul Administered 12/02/19 08:51 Not Given Dose 3 ml NEB .STK-MED ONE Amiodarone HCl Confirm 11/27/19 15:14 11/27/19 15:34 Cordarone Inj 150 Mg/3 Ml Vial Administered 11/27/19 15:15 Not Given Dose 150 mg IV .STK-MED ONE Amiodarone HCl Confirm 11/27/19 15:19 11/27/19 15:34 Cordarone Inj 150 Mg/3 Ml Vial Administered 11/27/19 15:20 Not Given Dose 150 mg IV .STK-MED ONE Apixaban 5 mg 11/27/19 22:00 11/28/19 09:41 Eliquis 5 Mg Tablet PO 12/27/19 21:59 5 mg Q12 EMIL Administration Aspirin 324 mg 11/27/19 21:46 11/27/19 22:11 Aspirin 81 Mg Chewable Tablet PO 11/27/19 21:47 324 mg NOW ONE Administration Aspirin Confirm 11/27/19 22:12 11/27/19 23:06 Aspirin 81 Mg Chewable Tablet Administered 11/27/19 22:13 Not Given Dose 81 mg .ROUTE .STK-MED ONE Atorvastatin Calcium 80 mg 11/27/19 18:45 11/27/19 18:55 Lipitor 80 Mg Tablet PO 11/27/19 18:46 80 mg NOW ONE Administration Buspirone HCl 10 mg 11/27/19 18:45 11/27/19 18:55 Buspar 10 Mg Tablet PO 11/27/19 18:46 10 mg NOW ONE Administration Carvedilol 6.25 mg 11/28/19 10:00 Coreg 6.25 Mg Tablet PO 12/28/19 09:59 Q12 EMIL Carvedilol 6.25 mg 11/27/19 18:45 11/27/19 18:56 Coreg 6.25 Mg Tablet PO 11/27/19 18:46 6.25 mg NOW ONE Administration Carvedilol 3.125 mg 11/28/19 10:00 11/28/19 18:28 Coreg 3.125 Mg Tablet PO 12/28/19 09:59 Not Given Q12 EMIL Enoxaparin Sodium 130 mg 11/27/19 23:00 Lovenox Inj 150 Mg/1 Ml Disp.Syrin SUBCUT 12/27/19 22:59 Q12 EMIL Enoxaparin Sodium 130 mg 11/28/19 10:00 Lovenox Inj 150 Mg/1 Ml Disp.Syrin SUBCUT 12/28/19 09:59 Q12 EMIL Furosemide 40 mg 11/27/19 14:59 11/27/19 15:08 Lasix Inj/Pf 40 Mg/4 Ml Sdv IV 11/27/19 15:00 40 mg NOW ONE Administration Furosemide 80 mg 11/27/19 22:00 11/28/19 09:32 Lasix Inj/Pf 100 Mg/10 Ml Sdv IV 12/27/19 21:59 80 mg Q12H EMIL Administration Furosemide 80 mg 11/28/19 22:00 11/29/19 21:13 Lasix Inj/Pf 40 Mg/4 Ml Sdv IV 12/28/19 21:59 Not Given Q12 EMIL Furosemide 40 mg 11/30/19 14:00 11/30/19 17:15 Lasix Inj/Pf 40 Mg/4 Ml Sdv IV 12/30/19 13:59 Not Given BID EMIL Furosemide 40 mg 12/04/19 07:55 Lasix Inj/Pf 40 Mg/4 Ml Sdv IV 12/04/19 07:56 NOW ONE Furosemide 40 mg 12/04/19 12:00 12/04/19 12:08 Lasix Inj/Pf 40 Mg/4 Ml Sdv IV 12/04/19 12:01 40 mg NOW ONE Administration Amiodarone HCl 900 mg/ 500 mls @ 0 mls/hr 11/27/19 14:54 11/28/19 18:27 Dextrose IV 11/30/19 14:53 Infused CONTINUOUS PRN Titration THIS MED IS NOT "PRN" Protocol Per Protocol Lactated Ringer's 1,000 mls @ 80 mls/hr 12/02/19 12:27 12/02/19 12:53 Lactated Ringers 1000 Ml Iv Soln IV 80 mls/hr CONTINUOUS PRN Administration THIS MED IS NOT "PRN" Sodium Chloride 1,000 mls @ 100 mls/hr 12/04/19 07:58 12/04/19 17:30 Nacl 0.9% 1000 Ml Iv Soln IV 01/03/20 07:57 Infused CONTINUOUS PRN Infusion THIS MED IS NOT "PRN" Calcium Gluconate 1 gm in 50 mls @ 50 mls/hr 12/04/19 08:30 12/04/19 10:09 Calcium Gluconate Rtu 1 Gm/50 Ml IV 12/04/19 10:29 50 mls/hr Q1H EMIL Administration Influenza Virus Vaccine Quadrival 0.5 ml 12/01/19 08:00 Flulaval Quad Vac 0.5 Ml Syr IM 12/01/19 08:01 .ONCE ONE Insulin Glargine 40 unit 11/27/19 18:38 Lantus (Pyxis) Insulin 100 Unit/1 Ml 10 Ml SUBCUT 11/27/19 23:59 ASDIR PRN Insulin Human Regular Confirm 11/27/19 18:54 11/27/19 19:01 Humulin R (Pyxis) Insulin 100 Unit/Ml 3ml Administered 11/27/19 18:55 Not Given Dose 1 unit .ROUTE .STK-MED ONE Morphine Sulfate 2 mg 11/27/19 14:59 11/27/19 15:07 Morphine 10 Mg/Ml Inj IV 11/27/19 15:00 2 mg NOW ONE Administration Ondansetron HCl 4 mg 11/27/19 18:10 Zofran Inj/Pf 4 Mg/2 Ml Sdv IV 12/27/19 18:09 Q8HP PRN FOR NAUSEA/VOMITING Assessment & Plan - Diagnosis (1) Heart failure with reduced ejection fraction Plan: He has definitely taken a turn for the worse and looks clinically worse than when he was first admitted. He actually does not appear to be in heart failure any longer and actually appears to be dehydrated both on physical exam and by labs. He now has evidence of lower GI bleed with a significant drop in his hemoglobin. Unfortunately the patient is unable to take p.o. fluids reliably. Recommendations: -Continue to hold diuresis. -Consider placement of PICC line per nursing request. -Gentle IV hydration with close attention to BUN and creatinine as well as fluid status. -Continue with telemetry. -We will follow with you. (2) Elevated troponin Is this a current diagnosis for this admission?: Yes Plan: The patient had a mildly elevated troponin which has now down trended. I believe this issue is multifactorial to include ischemic heart disease particular in the setting of VT and decompensated heart failure however cannot completely rule out a degree of just supply/demand mismatch. Unfortunately the patient is not stable enough to undergo any kind of ischemic cardiac assessment at this point and has now developed a significant lower GI bleed therefore anti platelet agents as well as anticoagulation cannot be instituted. Recommendations: -Continue with current medical management for now. -Discontinue baby aspirin. -We will continue to follow-up with you. (3) Ventricular tachycardia Is this a current diagnosis for this admission?: Yes Plan: Likely secondary to cardiac ischemia. Unfortunately patient is not a candidate for further ischemic assessment at this point. We will continue with current medical management and will consider further ischemic assessment when he improves. (4) Atrial fibrillation Is this a current diagnosis for this admission?: Yes Plan: Well controlled at this point. He is paced. Unfortunately he had a GI bleed therefore Eliquis will be discontinued. His was made aware of his risk stroke from his atrial fibrillation after discontinuing the medication however at this point we have no other option. We will consider restarting Eliquis after GI work-up. Recommendations: -Discontinue baby aspirin and Eliquis. (5) Hypertension Qualifiers: Hypertension type: essential hypertension Qualified Code(s): I10 - Essential (primary) hypertension Is this a current diagnosis for this admission?: Yes Plan: Blood pressure is at goal. We will continue with current medical management.
[2019-12-05] MEDS: INSULIN LISPRO 100 UNIT/ML 3 ML VIAL SUBCUT SCH ×4 (09:57→22:37)
[2019-12-05] MEDS: ASPIRIN 81 MG TABLET, CHEWABLE PO SCH (10:00)
[2019-12-05] MEDS: ATORVASTATIN CALCIUM 80 MG TABLET PO SCH (10:00)
[2019-12-05] MEDS: SACUBITRIL/VALSARTAN 24 MG/26 MG TABLET PO SCH ×2 (10:00→17:52)
[2019-12-05] MEDS: CYCLOSPORINE 0.05% OPH EMULSIO 0.4 ML DROPERETTE OU SCH ×2 (10:00→22:59)
[2019-12-05] MEDS: APIXABAN 5 MG TABLET PO SCH (10:00)
[2019-12-05] MEDS: CARVEDILOL 3.125 MG TABLET PO SCH ×2 (10:01→22:56)
--- NOTE | 2019-12-05 14:11 | PDOC CONSULTATION ---
Consultation Consult Date: 12/05/19 Attending physician:: RITA SHARMA Provider Consulted: BERTIN PUCKETT Consult reason:: GI bleed History of Present Illness Admission Date/PCP: 11/27/19 18:21 HILARIA ALFARO MD History of Present Illness: THEODORE SON is a 69 year old male Presents to the emergency department 6 days ago with shortness of breath, failure to thrive symptoms and was found to have congestive heart failure. Patient has a history of cardiomyopathy, CAD, morbid obesity, diabetes mellitus, and home BiPAP. She was diuresed, then developed acute kidney injury. Over the last 6 days patient has declined hemoglobin to a 6.8, in the last 2 days having several melanotic stools. Patient currently receiving 1 unit blood transfusion. He remains hemodynamically stable. Last upper and lower endoscopy proximately 7 years ago without significant findings according to patient's who was at bedside. Patient denies previous GI bleed history. Admission coags slightly elevated. Surgery consulted for further evaluation of GI bleed Past Medical History Cardiac Medical History: Reports: Atrial Fibrillation, Congestive Heart Failure, Coronary Artery Disease, Hyperlipidema, Hypertension, Peripheral Vascular Disease Denies: Myocardial Infarction Pulmonary Medical History: Reports: Bronchitis, Chronic Obstructive Pulmonary Disease (COPD), Intubation, Pneumonia, Respiratory Failure, Sleep Apnea Denies: Asthma Neurological Medical History: Denies: Seizures Endocrine Medical History: Reports: Diabetes Mellitus Type 2 Denies: Diabetes Mellitus Type 1, Hyperthyroidism, Hypothyroidism Malignancy Medical History: Reports: Lymphoma GI Medical History: Denies: Cirrhosis, Crohn's Disease, Hepatitis, Hiatal Hernia, Ulcerative Colitis Musculoskeltal Medical History: Reports: Arthritis Denies: Gout Skin Medical History: Denies: Eczema, Psoriasis Psychiatric Medical History: Reports: Depression Traumatic Medical History: Denies: Traumatic Brain Injury Hematology: Reports: Anemia Denies: Sickle Cell Disease, Bleeding Tendencies Infectious Medical History: Denies: HIV Past Surgical History Past Surgical History: Reports: Pacemaker, Other - Neurosurgery for spinal tumor removal, orchiectomy for James's gangrene Social History Information Source: Patient Lives with: Spouse/Significant other Smoking Status: Current Every Day Smoker Electronic Cigarette use?: No Frequency of Alcohol Use: None Hx Recreational Drug Use: No Drugs: None Hx Prescription Drug Abuse: No - Advance Directive Resuscitation Status: Full Code Family History Family History: None, Reviewed & Not Pertinent, CAD, COPD, DM, Hypertension, Malignancy Parental Family History Reviewed: No Children Family History Reviewed: No Sibling(s) Family History Reviewed.: No Medication/Allergy Home Medications: Apixaban [Eliquis 5 mg Tablet] 5 mg PO Q12 11/28/19 Buspirone HCl 5 mg PO DAILY 11/28/19 Carvedilol [Coreg 6.25 mg Tablet] 6.25 mg PO Q12 11/28/19 Furosemide [Lasix 80 mg Tablet] 80 mg PO BID 11/28/19 Gabapentin [Neurontin] 600 mg PO Q8 11/28/19 Insulin Glargine,Hum.rec.anlog [Lantus Insulin 100 Unit/1 ml 10 ml] 40 unit SQ Q12 11/28/19 Meloxicam [Mobic 7.5 mg Tablet] 7.5 mg PO DAILYP PRN 11/28/19 Allergies/Adverse Reactions: No Known Allergies Allergy (Verified 06/21/18 04:09) Review of Systems Constitutional: PRESENT: as per HPI Eyes: PRESENT: other - Moderate visual disturbances Cardiovascular: PRESENT: as per HPI Psychiatric: PRESENT: as per HPI Physical Exam Vital Signs: Temp Pulse Resp BP Pulse Ox 97.6 F 81 18 101/57 L 100 12/05/19 12:12 12/05/19 12:12 12/05/19 12:12 12/05/19 12:12 12/05/19 12:12 Intake & Output 12/04/19 12/05/19 12/06/19 06:59 06:59 06:59 Intake Total 1175 1373 0 Output Total 300 Balance 875 1373 0 Weight 126 kg 121.9 kg General appearance: PRESENT: other - Morbidly obese, under BiPAP supplementation Head exam: PRESENT: atraumatic Eye exam: PRESENT: other - Periorbital and conjunctival swelling with eye Teeth exam: PRESENT: other - Not examined Respiratory exam: PRESENT: retraction, tachypnea Cardiovascular exam: PRESENT: irregular rhythm, other GI/Abdominal exam: PRESENT: other - Abdomen is soft, no scars no peritoneal signs no rigidity Rectal exam: PRESENT: deferred Extremities exam: PRESENT: other - +1 edema lower extremities Musculoskeletal exam: PRESENT: other - Unable to fully assess as patient had bedrest for 1 week Psychiatric exam: PRESENT: anxious, appropriate affect Skin exam: PRESENT: dry Results Laboratory Results: 12/05/19 06:46 12/05/19 06:46 12/04/19 12/05/19 12/05/19 18:20 05:50 06:46 WBC 6.3 RBC 2.47 L Hgb 6.8 L Hct 20.5 L MCV 83 MCH 27.5 MCHC 33.1 RDW 18.3 H Plt Count 158 Seg Neutrophils % 76.4 Sodium 140.7 Potassium 4.3 Chloride 96 L Carbon Dioxide 35 H Anion Gap 10 BUN 88 H Creatinine 2.26 H Est GFR ( Amer) 35 L Glucose 95 Calcium 8.3 L Magnesium 3.0 H Total Bilirubin 1.0 AST 27 Alkaline Phosphatase 209 H Total Protein 5.7 L Albumin 3.4 L Stool Occult Blood POSITIVE Blood Type Antibody Screen 12/05/19 12/05/19 06:46 09:38 WBC RBC Hgb Hct MCV MCH MCHC RDW Plt Count Seg Neutrophils % Sodium 139.8 Potassium 4.2 Chloride 98 Carbon Dioxide 35 H Anion Gap 7 BUN 100 H Creatinine 2.32 H Est GFR ( Amer) 34 L Glucose 71 L Calcium 8.2 L Magnesium Total Bilirubin 1.1 AST 31 Alkaline Phosphatase 191 H Total Protein 5.7 L Albumin 3.5 Stool Occult Blood Blood Type O NEGATIVE Antibody Screen NEGATIVE 11/27/19 11/27/19 11/27/19 14:30 14:30 14:30 Creatine Kinase 93 CK-MB (CK-2) 2.99 Troponin I 0.044 NT-Pro-B Natriuret Pep 4090 H 11/27/19 11/28/19 11/28/19 20:00 02:10 08:23 Creatine Kinase CK-MB (CK-2) Troponin I 0.473 0.681 0.594 NT-Pro-B Natriuret Pep Impressions: Chest X-Ray 12/04/19 00:00 IMPRESSION: Low lung volumes. Otherwise stable radiographic appearance of the chest demonstrating cardiomegaly with mild central vascular congestion. Assessment & Plan - Diagnosis (1) Melanotic stools Is this a current diagnosis for this admission?: Yes Plan: Impression: Subacute GI bleed, first episode for this patient, previously anticoagulated on Eliquis for atrial fibrillation with multiple comorbidities including advanced COPD, CHF, now with acute renal failure; hemodynamically stab le; full code; Covid status unknown Recommendations: 1. Discussed situation with patient, patient's , well-known to me, and medical staff. 2. Will attempt a gentle bowel prep today; hopefully will not exacerbate acute renal insufficiency 3. We will obtain Covid status 4. We will post patient for upper and lower endoscopy, tomorrow, Dr. Lorenzo Taylor, surgicalist pending patient's cardiovascular and metabolic status. (2) JOHANNY (acute kidney injury) Is this a current diagnosis for this admission?: Yes (3) CHF (congestive heart failure) Qualifiers: Heart failure type: diastolic Heart failure chronicity: chronic Qualified Code(s): I50.32 - Chronic diastolic (congestive) heart failure Is this a current diagnosis for this admission?: Yes (4) COPD (chronic obstructive pulmonary disease) Qualifiers: COPD type: unspecified COPD Qualified Code(s): J44.9 - Chronic obstructive pulmonary disease, unspecified Is this a current diagnosis for this admission?: Yes (5) Ventricular tachycardia Is this a current diagnosis for this admission?: Yes (6) Obesity (BMI 30.0-34.9) Is this a current diagnosis for this admission?: Yes (7) Diabetes mellitus Qualifiers: Diabetes mellitus type: type 2 Diabetes mellitus complication detail: with peripheral angiopathy with gangrene Is this a current diagnosis for this admission?: Yes (8) Anticoagulated Is this a current diagnosis for this admission?: Yes - Time Time Spent: 50 to 70 Minutes Smoking Cessation Education: 3 to 10 minutes Medications reviewed and adjusted accordingly: Yes Anticipated discharge: Home Anticipated DC Timeframe: within 48 hours
[2019-12-05] MEDS ORDERED: PEG 3350/NA SULF,BICARB,CL/KCL 4000 ML PO ONE (15:00)
--- NOTE | 2019-12-05 15:33 | PDOC PROGRESS REPORT ---
Subjective Progress Note for:: 12/05/19 Subjective:: THEODORE SON is a 69 year old male with PMH of HTN, HLD, morbid obesity (BMI 43), atrial fibrillation on AC, CHB s/p pacemaker, HFrEF (40%), ventricular tachycardia, PAD, Follicular Lymphoma, insulin dependent DM2, and PATEL on BIPAP who presented to the ED via EMS which CC of SOB and CP that started around 1000 this morning. He was in his usual state of health when he went to bed last night. When he woke up this morning, he reported some pressure-like chest pain associated with nausea. His called EMS. EMS reported that the patient was in V-tach on the monitor with a rate in the 170s upon their arrival. They administered 2 rounds of Adenosine (initially 6 mg, then 12 mg) without success, so they then administered 150 mg Amiodarone with subsequent conversion to a slower rate. Patient is followed by Dr. Berry for cardiology. He and his state that he has been compliant with his medication regimen and his diuretics, but continues to have progressively worsening SOB and GALLEGO which has become worse throughout the last month. He is barely able to ambulate due to the SOB. He uses a walker to get around in the house, but doesn't walk outside. He is not on home O2 therapy. 11/29/19. D2 Hospital stay. He was seen and examined at bedside. On Bipap saturating 96%. Breathing is about the same as yesterday, denies any chest pain, no palpitations, no syncope. Cardiology following. Plan to continue diuresis for now, monitor Crea with diuresis. 11/30/19. D3 hospital stay. He was seen and examined at bedside. He was off his BiPAP machine and he denies feeling short of breath retarded. He denies any chest pain no palpitations. Creatinine mildly elevated today. Will hold off on Lasix and resume the next day. 12/02/19. D5 hospital stay. He was seen and examined at bedside. He is back on his bipap. He seems more confused today compared to yesterday. Creatinine seems worse today 2.33 from 1.99 yesterday. Will give him 1 bag of LR and see if this improves his creatinine by tomorrow. I will continue to hold his lasix for today. He also complained of dry eyes probably from air leak from his bipap. Started on eye drops 12/03/19. D6 hospital stay. He was seen and examined at bedside. According to his who stayed with him overnight, he seems to get more confused at night. ABG repeat today showed a pCO2 of 91. HE was placed back on Bipap. Confusion likely from delirium in addition to CO2 retention. Will not be able to transfer today. 12/04/19. D7 hospital stay. He was seen and examined at bedside. He seemed more drowsy today despite being on BIPAP overnight. He opens his eyes when called but often falls asleep. Repeat ABG this morning showed pH 7.26, pCO2 93.3, pO2 242. Patient was given a bigger more fitting mask. pH improved to 7.3, pCo2 125.9, pO2 125.9. Magnesium elevated today as well to 3.0 and this may be aggravating his mental status. he was given 1 dose of calcium gluconate. Will give IV fluids and lasix. Nephro consulted for JOHANNY. 12/05/19 D8 hospital stay. He was seen and examined at bedside. Much more awake although he was noted to have melena and a drop on his hemoglobin to 6.8. HE was given 1 u PRBC and surgery was consulted for an EGD and colonoscopy. Aspirin and eliquis was discontinued. Nephrology was consulted as well for his worsening JOHANNY. He was started on slow IV fluids for his GI bleed and JOHANNY> Per Dr. Berry, he does not think an ischemic work up in [facility] form of a cath will be f easible right now given his kidney function and GI bleed. I attempted to discuss his goals of care with his however the stated that she is not yet ready to do that but stated that "I know he is dying" and would like some time to discuss things with her son. Reason For Visit: VENTRICULAR TACHYCARDIA, ACUTE ON CHRONIC Physical Exam Vital Signs: Temp Pulse Resp BP Pulse Ox 97.6 F 81 18 101/57 L 100 12/05/19 12:12 12/05/19 12:12 12/05/19 12:12 12/05/19 12:12 12/05/19 12:12 Intake & Output 12/04/19 12/05/19 12/06/19 06:59 06:59 06:59 Intake Total 1175 1373 590 Output Total 300 Balance 875 1373 590 Weight 126 kg 121.9 kg General appearance: PRESENT: mild distress, morbidly obese Head exam: PRESENT: atraumatic, normocephalic Eye exam: PRESENT: EOMI, PERRLA Mouth exam: PRESENT: dry mucosa Neck exam: PRESENT: full ROM Respiratory exam: PRESENT: crackles, rales, symmetrical, unlabored Cardiovascular exam: PRESENT: irregular rhythm, +S1, +S2. ABSENT: systolic murmur, tachycardia Pulses: PRESENT: +2 pedal pulses bilateral GI/Abdominal exam: PRESENT: normal bowel sounds, soft. ABSENT: rebound, tenderness Rectal exam: PRESENT: black stool, heme (+) stool Extremities exam: ABSENT: +2 edema Musculoskeletal exam: PRESENT: full ROM Neurological exam: PRESENT: altered Psychiatric exam: PRESENT: normal mood Skin exam: PRESENT: normal color Results Laboratory Results: 12/05/19 06:46 12/05/19 06:46 12/04/19 12/05/19 12/05/19 18:20 05:50 06:46 WBC 6.3 RBC 2.47 L Hgb 6.8 L Hct 20.5 L MCV 83 MCH 27.5 MCHC 33.1 RDW 18.3 H Plt Count 158 Seg Neutrophils % 76.4 Sodium 140.7 Potassium 4.3 Chloride 96 L Carbon Dioxide 35 H Anion Gap 10 BUN 88 H Creatinine 2.26 H Est GFR ( Amer) 35 L Glucose 95 Calcium 8.3 L Magnesium 3.0 H Total Bilirubin 1.0 AST 27 Alkaline Phosphatase 209 H Total Protein 5.7 L Albumin 3.4 L Stool Occult Blood POSITIVE Blood Type Antibody Screen 12/05/19 12/05/19 06:46 09:38 WBC RBC Hgb Hct MCV MCH MCHC RDW Plt Count Seg Neutrophils % Sodium 139.8 Potassium 4.2 Chloride 98 Carbon Dioxide 35 H Anion Gap 7 BUN 100 H Creatinine 2.32 H Est GFR ( Amer) 34 L Glucose 71 L Calcium 8.2 L Magnesium Total Bilirubin 1.1 AST 31 Alkaline Phosphatase 191 H Total Protein 5.7 L Albumin 3.5 Stool Occult Blood Blood Type O NEGATIVE Antibody Screen NEGATIVE 11/27/19 11/27/19 11/27/19 14:30 14:30 14:30 Creatine Kinase 93 CK-MB (CK-2) 2.99 Troponin I 0.044 NT-Pro-B Natriuret Pep 4090 H 11/27/19 11/28/19 11/28/19 20:00 02:10 08:23 Creatine Kinase CK-MB (CK-2) Troponin I 0.473 0.681 0.594 NT-Pro-B Natriuret Pep Impressions: Chest X-Ray 12/04/19 00:00 IMPRESSION: Low lung volumes. Otherwise stable radiographic appearance of the chest demonstrating cardiomegaly with mild central vascular congestion. Assessment and Plan - Diagnosis (1) GI bleed Qualifiers: GI bleed type/associated pathology: unspecified gastrointestinal hemorrhage type Qualified Code(s): K92.2 - Gastrointestinal hemorrhage, unspecified Is this a current diagnosis for this admission?: Yes Plan: - episode of melena today with Hgb drop 6.8 - on aspirin and eliquis held - s/p 1 unit PRBC awaiting repeat Hgb post transfusion - gentele IV hydration - Protonix IV BID - Surgery on board plan for EGD and colonoscopy (2) JOHANNY (acute kidney injury) Is this a current diagnosis for this admission?: Yes Plan: - Crea 1.72>1.94>1.97>2.3>2.3>2.32 unclear baseline - Mg 3.0 patient drowsy. this is likely 2/2 to CKD since he has not been receiving any magnesium containing medication - JOHANNY on top of CKD, or cardiorenal - will give fluids for now while monitoring his IO and resp status - monitor crea - avoid nephrotoxins - nephro consulted since he had worsening JOHANNY after diuresis and with the CHF, fluid replacement will be challenging at best. (3) Acute on chronic systolic congestive heart failure, NYHA class 3 Is this a current diagnosis for this admission?: Yes Plan: - repeat echo EF <35%, LV moderately dilated, severe global hypokinesis - has a pacemaker - BNP 4090 - trop peaked at 0.68 trended down to 0.59 - BP borderline low - started on Entresto with holding parameters - continue carvedilol, aspirin - BP soft at 99/58 will hold off on aldactone - started on IV Fluids for worsening kidney function and GI bleed. Will closely follow his volume status - daily weights 135.6>126 kg - strict IO - fluid and sodium restriction - cardio following. Per Dr. Berry, with his deteriorating kidney function a [facility] may not be feasible at this time. (4) Ventricular tachycardia Is this a current diagnosis for this admission?: Yes (5) NSTEMI (non-ST elevated myocardial infarction) Is this a current diagnosis for this admission?: Yes Plan: - no evidence of ischemic changes on EKG and currently CP free. However, given VT, he will absolutely need an ischemic work up with [facility]. - Trop peaked at 0.68 decreased to 0.59 - continue aspirin, carvedilol, statin (6) Hypercapnic respiratory failure Qualifiers: Chronicity: acute on chronic Qualified Code(s): J96.22 - Acute and chronic respiratory failure with hypercapnia Is this a current diagnosis for this admission?: Yes Plan: - with more confusion noted. He has been off bipap and mostly NC for the past 2 days - ABG pH 7.3, pCO2 70, pO2 125.9, bicarb 33.4 - placed back on BIPAP - advised nurse to keep him on BIPAP (7) Atrial fibrillation Is this a current diagnosis for this admission?: Yes Plan: - continue eliquis - on amio and carvedilol (8) Diabetes mellitus type 2 in obese Is this a current diagnosis for this admission?: Yes Plan: -restart home Lantus at half home dose of 40 units HS - SSI ACHS - carb controlled diet (9) Morbid obesity with BMI of 40.0-44.9, adult Is this a current diagnosis for this admission?: Yes Plan: - encouraged weight loss (10) PATEL (obstructive sleep apnea) Is this a current diagnosis for this admission?: Yes Plan: - on BIPAP (11) Tobacco abuse Is this a current diagnosis for this admission?: Yes Plan: - encourage cessation - nicotine patch (12) Dry eyes, bilateral Is this a current diagnosis for this admission?: Yes Plan: - due to air leak from bipap - prescribed lubricant eye drops (13) Physical deconditioning Is this a current diagnosis for this admission?: Yes Plan: - PT/OT - Plan Summary Summary: Patient is a very sick 69-year-old male with history of heart failure with reduced ejection fraction EF of less than 35% ventricular tachycardia, survivor of cardiac arrest admitted due to acute decompensated heart failure. He was started on diuretics with plans to do a left heart cath as a work-up for his heart failure as soon as he was adequately diuresed. Unfortunately diuresis caused acute kidney injury and his creatinine started to trend up. Nephrology was consulted. He also developed an acute GI bleed today and his aspirin and Eliquis was stopped. Surgery was consulted for a planned EGD and colonoscopy tomorrow. Mental status has been fluctuating as well with frequent episodes of drowsiness which was thought to be secondary to CO2 retention and hypermagnesemia. Dr. Berry has followed him for years and with the state of his kidneys he does not think that he is in any shape to undergo a cardiac cath at this moment. I attempted to discuss his goals of cares with the however she stated that she is not yet ready to talk about this but she did say that she knows that her is dying. - Time Time Spent with patient: 35 or more minutes Anticipated Discharge Disposition: Home with Home Health Anticipated Discharge Timeframe: to be determined
[2019-12-05 15:39] LABS: ABSOLUTE EOSINOPHILS # (AUTO) 0.1 10^3/uL (0.0-0.6); ABSOLUTE LYMPHOCYTES (AUTO) 0.4 10^3/uL (0.5-4.7); ABSOLUTE MONOCYTES (AUTO) 0.9 10^3/uL (0.1-1.4); ABSOLUTE NEUT (AUTO) 5.2 10^3/uL (1.7-8.2); BASOPHILS % (AUTO) 0.6 % (0-2); EOSINOPHILS % (AUTO) 1.1 % (0-6); HEMATOCRIT 24.1 % (37.9-51.0); LYMPHOCYTES % (AUTO) 5.9 % (13-45); MEAN CORPUSCULAR HEMOGLOBIN 28.2 pg (27.0-33.4); MEAN CORPUSCULAR HGB CONC 33.4 g/dL (32.0-36.0); MEAN CORPUSCULAR VOLUME 84 fl (80-97); MONOCYTES % (AUTO) 13.4 % (3-13); PLATELET COUNT 165 10^3/uL (150-450); RED BLOOD COUNT 2.86 10^6/uL (4.35-5.55); RED CELL DISTRIBUTION WIDTH 17.4 % (11.5-14.0); TOTAL CELLS COUNTED % (AUTO) 100 %; WHITE BLOOD COUNT 6.6 10^3/uL (4.0-10.5)
[2019-12-05 15:50] LABS: INTERNATIONAL RATION (INR) 1.76; PROTHROMBIN TIME 20.6 SEC (11.4-15.4)
[2019-12-05] MEDS: BUSPIRONE HCL 10 MG TABLET PO SCH (17:52)
[2019-12-05] MEDS: PANTOPRAZOLE SODIUM 40 MG VIAL IV SCH ×2 (17:54→22:58)
[2019-12-05] MEDS: NORMAL SALINE 1000 ML 1,000 ML IV PRN (18:05)
[2019-12-05] MEDS: ACETAMINOPHEN 325 MG TABLET PO PRN (18:06)
--- NOTE | 2019-12-05 20:39 | PDOC CONSULTATION ---
Consultation Consult Date: 12/05/19 Provider Consulted: ALEX JACKSON Consult reason:: JOHANNY History of Present Illness Admission Date/PCP: 11/27/19 18:21 HILARIA ALFARO MD History of Present Illness: THEODORE SON is a 69 year old male with complex medical history of heart failure with reduced ejection fraction, hypertension, hyperlipidemia, morbid obesity, atrial fibrillation, ventricular tachycardia, PAD, follicular lymphoma, diabetes mellitus type 2, obstructive sleep apnea on BiPAP, history of complete heart block requiring pacemaker placement in January 2019 complicated with JOHANNY episode who was admitted on 11/27/2019 for worsening shortness of breath and chest pains. Patient was brought by EMS who noted V. tach with a heart rate of 170s upon arrival to the ED. This was treated with 2 rounds of adenosine and finally amiodarone. Patient was diuresed with Lasix initially at 80 mg IV every 12 hours but then his kidney function worsened so his Lasix was held on day 4. He has been given intermittent IV fluids after that. His last Lasix dose was given yesterday x1 dose at 40 mg. He is also diagnosed with acute hypercapnic respiratory failure requiring BiPAP. Cardiology was consulted due to CHF and elevated troponin. Left heart catheterization was initially considered but currently Dr. Berry recommended medical treatment. Today the patient has an acute drop in his hemoglobin today at 6.8 with positive stool for occult blood and possible GI bleed. Anticoagulation has been held. When I saw the patient today he is somewhat lethargic but answering few ques tions. His Shara is mostly answering my questions. is aware that the patient developed acute kidney injury in January 2019 when he was hospitalized for complete heart block requiring pacemaker. She said she has not followed up with coding quality analyst since then. She mentioned that a week prior to admission there was a note of decreased urine output without any hematuria nor note of any foamy urine. There is no history of kidney stones no hepatitis. No family history of kidney disease. Admitting kidney function showed a BUN of 52, creatinine 1.72 with EGFR 40. Currently he has a BUN of 100, creatinine of 2.32 with EGFR of 28. Review of records showed that historically the patient has been running high BUNs at least for the last 6 months ranging around 30 to 60s. On January 19, 2019 he had a BUN of 61, creatinine of 4.37. Back in July 2018 his creatinine ranged around 0.93-1.03. Patient has no Arzate catheter currently and urine output has not been quantified and recorded. states that when the patient came in he has some leg swelling but currently there is none. Past Medical History Cardiac Medical History: Reports: Atrial Fibrillation, CHF-Systolic, Coronary Artery Disease, Hyperlipidemia, Hypertension-primary, Peripheral Vascular Disease, Other - Complete heart block on January 2019 requiring a pacemaker placement. Pulmonary Medical History: Reports: Bronchitis, Chronic Obstructive Pulmonary Disease (COPD), Intubation, Pneumonia, Respiratory Failure, Sleep Apnea Endocrine Medical History: Reports: Diabetes Mellitus Type 2 Malignancy Medical History: Reports: Lymphoma Musculoskeltal Medical History: Reports: Arthritis Psychiatric Medical History: Reports: Depression Past Surgical History Past Surgical History: Reports: Pacemaker - 01/2019, Other - Neurosurgery for spinal tumor removal, orchiectomy for James's gangrene Social History Information Source: Relative, [facility] Records Lives with: Spouse/Significant other Smoking Status: Current Every Day Smoker Electronic Cigarette use?: No Frequency of Alcohol Use: None Hx Recreational Drug Use: No Drugs: None Hx Prescription Drug Abuse: No - Advance Directive Resuscitation Status: Full Code Family History Family History: CAD - Father of [place], DM - Borderline diabetes on monitor Parental Family History Reviewed: Yes Children Family History Reviewed: Yes Sibling(s) Family History Reviewed.: Yes Medication/Allergy Home Medications: Apixaban [Eliquis 5 mg Tablet] 5 mg PO Q12 11/28/19 Buspirone HCl 5 mg PO DAILY 11/28/19 Carvedilol [Coreg 6.25 mg Tablet] 6.25 mg PO Q12 11/28/19 Furosemide [Lasix 80 mg Tablet] 80 mg PO BID 11/28/19 Gabapentin [Neurontin] 600 mg PO Q8 11/28/19 Insulin Glargine,Hum.rec.anlog [Lantus Insulin 100 Unit/1 ml 10 ml] 40 unit SQ Q12 11/28/19 Meloxicam [Mobic 7.5 mg Tablet] 7.5 mg PO DAILYP PRN 11/28/19 Allergies/Adverse Reactions: No Known Allergies Allergy (Verified 06/21/18 04:09) Review of Systems All systems: reviewed and no additional remarkable complaints except as stated Review of Systems: Constitutional: ABSENT: chills, fatigue, fever(s), headache(s), weight gain, weight loss Eyes: ABSENT: visual disturbances Ears: ABSENT: hearing changes Cardiovascular: ABSENT: edema, orthropnea, palpitations; reported chest pain and shortness of breath on admission Respiratory: ABSENT: cough, dyspnea, hemoptysis Gastrointestinal: ABSENT: abdominal pain, constipation, diarrhea, hematemesis, hematochezia, nausea, vomiting Genitourinary: ABSENT: dysuria, hematuria Musculoskeletal: ABSENT: joint swelling Integumentary: ABSENT: rash, wounds Neurological: ABSENT: abnormal gait, abnormal speech,dizziness, focal weakness, numbness, syncope; some confusion Psychiatric: ABSENT: anxiety, depression Endocrine: ABSENT: cold intolerance, heat intolerance, polydipsia, polyuria Hematologic/Lymphatic: ABSENT: easy bleeding, easy bruising, lymphadenopathy Physical Exam Vital Signs: Temp Pulse Resp BP Pulse Ox 97.6 F 80 17 106/32 L 100 12/05/19 11:45 12/05/19 11:45 12/05/19 11:45 12/05/19 11:45 12/05/19 11:45 Intake & Output 12/04/19 12/05/19 12/06/19 06:59 06:59 06:59 Intake Total 1175 1373 0 Output Total 300 Balance 875 1373 0 Weight 126 kg 121.9 kg Exam: General appearance: Currently on BiPAP, lethargic, arousable, morbidly obese Head exam: PRESENT: atraumatic, normocephalic Eye exam: PRESENT: Conjunctiva pale, EOMI, PERRLA. ABSENT: conjunctival injection, scleral icterus Mouth exam: PRESENT: moist, neck supple, tongue midline Neck exam: PRESENT: full ROM. ABSENT: carotid bruit, JVD, lymphadenopathy, thyromegaly Respiratory exam: PRESENT: Diminished to auscultation bilaterally. ABSENT: rales, rhonchi, stridor, wheezes Cardiovascular exam: PRESENT: Irregularly irregular heart rhythm, +S1, +S2. ABSENT: systolic murmur Pulses: PRESENT: normal radial pulses, normal dorsalis pedis pulses GI/Abdominal exam: PRESENT: normal bowel sounds, soft. ABSENT: guarding, mass, tenderness Rectal exam: Deferred Extremities exam: PRESENT: full ROM. ABSENT: calf tenderness, pedal edema Musculoskeletal: PRESENT: full ROM. ABSENT: deformity Neurological exam: PRESENT: alert, Awake, Oriented to person, Oriented to place, but not to time ABSENT: motor sensory deficit Psychiatric exam: PRESENT: appropriate affect, normal mood. ABSENT: homicidal ideation, suicidal ideation Skin exam: PRESENT: intact, dry, warm. Fair skin turgor ABSENT: rash Results Laboratory Results: 12/05/19 06:46 12/05/19 06:46 12/04/19 12/04/19 12/05/19 12:00 18:20 05:50 WBC RBC Hgb Hct MCV MCH MCHC RDW Plt Count Seg Neutrophils % Carbonic Acid 2.11 H HCO3/H2CO3 Ratio 15:1 ABG pH 7.30 L ABG pCO2 70.2 H* ABG pO2 125.9 H ABG HCO3 33.4 H ABG O2 Saturation 98.0 ABG Base Excess 5.9 FiO2 45% Sodium 140.7 Potassium 4.3 Chloride 96 L Carbon Dioxide 35 H Anion Gap 10 BUN 88 H Creatinine 2.26 H Est GFR ( Amer) 35 L Glucose 95 Calcium 8.3 L Magnesium 3.0 H Total Bilirubin 1.0 AST 27 Alkaline Phosphatase 209 H Total Protein 5.7 L Albumin 3.4 L Stool Occult Blood POSITIVE Blood Type Antibody Screen 12/05/19 12/05/19 12/05/19 06:46 06:46 09:38 WBC 6.3 RBC 2.47 L Hgb 6.8 L Hct 20.5 L MCV 83 MCH 27.5 MCHC 33.1 RDW 18.3 H Plt Count 158 Seg Neutrophils % 76.4 Carbonic Acid HCO3/H2CO3 Ratio ABG pH ABG pCO2 ABG pO2 ABG HCO3 ABG O2 Saturation ABG Base Excess FiO2 Sodium 139.8 Potassium 4.2 Chloride 98 Carbon Dioxide 35 H Anion Gap 7 BUN 100 H Creatinine 2.32 H Est GFR ( Amer) 34 L Glucose 71 L Calcium 8.2 L Magnesium Total Bilirubin 1.1 AST 31 Alkaline Phosphatase 191 H Total Protein 5.7 L Albumin 3.5 Stool Occult Blood Blood Type O NEGATIVE Antibody Screen NEGATIVE 11/27/19 11/27/19 11/27/19 14:30 14:30 14:30 Creatine Kinase 93 CK-MB (CK-2) 2.99 Troponin I 0.044 NT-Pro-B Natriuret Pep 4090 H 11/27/19 11/28/19 11/28/19 20:00 02:10 08:23 Creatine Kinase CK-MB (CK-2) Troponin I 0.473 0.681 0.594 NT-Pro-B Natriuret Pep Impressions: Chest X-Ray 12/04/19 00:00 IMPRESSION: Low lung volumes. Otherwise stable radiographic appearance of the chest demonstrating cardiomegaly with mild central vascular congestion. Assessment & Plan - Diagnosis (1) JOHANNY (acute kidney injury) Is this a current diagnosis for this admission?: Yes Plan: Patient has elevated BUN disproportionate elevation of creatinine. BUN increased from 52-100 and creatinine increased from 1.72-2.32. Considerations include prerenal factors including possible intravascular volume depletion after diuresis, cardiorenal syndrome and contribution of acute onset of GI bleed. Clinically the patient appears dry. Hold diuretics. Agree with careful IV fluid hydration with normal saline. Treat GI bleed per hospitalist. No need for any urgent renal replacement therapy at this time. Strict intake and output by inserting Arzate catheter. Avoid all nephrotoxic medications and optimize cardiac management. (2) GI bleed Qualifiers: Is this a current diagnosis for this admission?: Yes Plan: Positive stool for occult blood. Currently being transfused 1 unit of packed RBC. (3) Acute on chronic systolic CHF (congestive heart failure) Is this a current diagnosis for this admission?: Yes Plan: Echocardiogram on 11/28/2019 showed atrial fibrillation, left ventricular moderately dilated, LV systolic function less than 35% with severe global hypokinesia of left ventricle and right ventricular borderline dilated dilation. Cardiology following. (4) Hypercapnic respiratory failure Qualifiers: Chronicity: acute on chronic Qualified Code(s): J96.22 - Acute and chronic respiratory failure with hypercapnia Is this a current diagnosis for this admission?: Yes Plan: Patient is significant CO2 retention. This likely consequence of hypoventilation syndrome with morbid obesity in the background of COPD. Currently on BiPAP. He has respiratory acidosis with appropriate bicarbonate compensation. (5) COPD (chronic obstructive pulmonary disease) Qualifiers: COPD type: unspecified COPD Qualified Code(s): J44.9 - Chronic obstructive pulmonary disease, unspecified Is this a current diagnosis for this admission?: Yes (6) Elevated troponin Is this a current diagnosis for this admission?: Yes Plan: Deemed to be multifactorial due to ischemic heart disease, V. tach and heart failure per cardiology. (7) Morbid obesity with alveolar hypoventilation Is this a current diagnosis for this admission?: Yes (8) Ventricular tachycardia Is this a current diagnosis for this admission?: Yes Plan: On amiodarone. (9) Atrial fibrillation Is this a current diagnosis for this admission?: Yes Plan: Anticoagulation held due to GI bleed. (10) Diabetes mellitus type 2 in obese Is this a current diagnosis for this admission?: Yes Plan: Fairly controlled. (11) Hypertension Qualifiers: Hypertension type: essential hypertension Qualified Code(s): I10 - Essential (primary) hypertension Is this a current diagnosis for this admission?: Yes Plan: Blood pressure has been relatively on the low side. - Notes Notes: Thank you for this consultation. Discussed with Dr. Hernandez.
[2019-12-05] MEDS: INSULIN GLARGINE,HUM.REC.ANLOG 1,000 UNIT/10 ML VIAL SUBCUT SCH (22:59)
[2019-12-06] MEDS: AMIODARONE HCL 200 MG TABLET PO SCH ×3 (05:40→18:13)
[2019-12-06 06:51] LABS: ABSOLUTE EOSINOPHILS # (AUTO) 0.1 10^3/uL (0.0-0.6); ABSOLUTE LYMPHOCYTES (AUTO) 0.4 10^3/uL (0.5-4.7); ABSOLUTE MONOCYTES (AUTO) 1.2 10^3/uL (0.1-1.4); ABSOLUTE NEUT (AUTO) 5.5 10^3/uL (1.7-8.2); BASOPHILS % (AUTO) 0.5 % (0-2); EOSINOPHILS % (AUTO) 1.5 % (0-6); HEMATOCRIT 23.1 % (37.9-51.0); LYMPHOCYTES % (AUTO) 5.2 % (13-45); MEAN CORPUSCULAR HEMOGLOBIN 28.2 pg (27.0-33.4); MEAN CORPUSCULAR HGB CONC 33.3 g/dL (32.0-36.0); MEAN CORPUSCULAR VOLUME 85 fl (80-97); MONOCYTES % (AUTO) 16.4 % (3-13); PLATELET COUNT 164 10^3/uL (150-450); RED BLOOD COUNT 2.73 10^6/uL (4.35-5.55); RED CELL DISTRIBUTION WIDTH 17.5 % (11.5-14.0); SEGMENTED NEUTROPHILS % (AUTO) 76.4 % (42-78); TOTAL CELLS COUNTED % (AUTO) 100 %; WHITE BLOOD COUNT 7.2 10^3/uL (4.0-10.5)
[2019-12-06] MEDS: NORMAL SALINE 1000 ML 1,000 ML IV PRN (06:57)
[2019-12-06 07:00] LABS: HEMOGLOBIN 7.7 g/dL (13.5-17.0)
[2019-12-06 07:06] LABS: ALBUMIN 3.3 g/dL (3.5-5.0); ALKALINE PHOSPHATASE 215 U/L (38-126); ANION GAP 7 (5-19); ASPARTATE AMINO TRANSFERASE 31 U/L (17-59); BILIRUBIN,DIRECT 0.8 mg/dL (0.0-0.4); BILIRUBIN,TOTAL 1.2 mg/dL (0.2-1.3); BLOOD UREA NITROGEN 87 mg/dL (7-20); CALCIUM 8.1 mg/dL (8.4-10.2); CARBON DIOXIDE 33 mmol/L (22-30); CHLORIDE 103 mmol/L (98-107); POTASSIUM 3.9 mmol/L (3.6-5.0); TOTAL PROTEIN 5.4 g/dL (6.3-8.2)
[2019-12-06 07:15] LABS: GLUCOSE 44 mg/dL (75-110)
[2019-12-06] MEDS: INSULIN LISPRO 100 UNIT/ML 3 ML VIAL SUBCUT SCH ×4 (08:02→21:54)
[2019-12-06 08:59] LABS: INTERNATIONAL RATION (INR) 1.43; PROTHROMBIN TIME 17.6 SEC (11.4-15.4)
[2019-12-06 09:00] LABS: PARTIAL THROMBOPLASTIN TIME 43.7 SEC (23.5-35.8)
--- NOTE | 2019-12-06 11:08 | PDOC PROGRESS REPORT ---
Subjective Progress Note for:: 12/06/19 Subjective:: Still very weak. Only took less than half of his GoLYTELY. Still having brown liquid stool. Reason For Visit: VENTRICULAR TACHYCARDIA, ACUTE ON CHRONIC Physical Exam Vital Signs: Temp Pulse Resp BP Pulse Ox 98.2 F 79 18 113/67 100 12/06/19 09:08 12/06/19 08:07 12/06/19 08:07 12/06/19 08:07 12/06/19 08:07 Intake & Output 12/05/19 12/06/19 12/07/19 06:59 06:59 06:59 Intake Total 1373 1590 Output Total 1625 Balance 1373 -35 Weight 121.9 kg 130.9 kg General appearance: PRESENT: no acute distress, cooperative Respiratory exam: PRESENT: rhonchi - Patient on BiPAP. Cardiovascular exam: PRESENT: RRR GI/Abdominal exam: PRESENT: other - Obese and protuberant but not tender Results Laboratory Results: 12/06/19 06:13 12/06/19 06:13 12/05/19 12/05/19 12/05/19 06:46 09:38 15:23 WBC 6.6 RBC 2.86 L Hgb 8.0 L Hct 24.1 L MCV 84 MCH 28.2 MCHC 33.4 RDW 17.4 H Plt Count 165 Seg Neutrophils % 79.0 H Sodium Potassium Chloride Carbon Dioxide Anion Gap BUN Creatinine Est GFR ( Amer) Glucose Calcium Magnesium 2.8 H Total Bilirubin AST Alkaline Phosphatase Total Protein Albumin Blood Type O NEGATIVE Antibody Screen NEGATIVE 12/06/19 12/06/19 06:13 06:13 WBC 7.2 RBC 2.73 L Hgb 7.7 L Hct 23.1 L MCV 85 MCH 28.2 MCHC 33.3 RDW 17.5 H Plt Count 164 Seg Neutrophils % 76.4 Sodium 143.4 Potassium 3.9 Chloride 103 Carbon Dioxide 33 H Anion Gap 7 BUN 87 H Creatinine 1.92 H Est GFR ( Amer) 42 L Glucose 44 L Calcium 8.1 L Magnesium Total Bilirubin 1.2 AST 31 Alkaline Phosphatase 215 H Total Protein 5.4 L Albumin 3.3 L Blood Type Antibody Screen 11/27/19 11/27/19 11/27/19 14:30 14:30 14:30 Creatine Kinase 93 CK-MB (CK-2) 2.99 Troponin I 0.044 NT-Pro-B Natriuret Pep 4090 H 11/27/19 11/28/19 11/28/19 20:00 02:10 08:23 Creatine Kinase CK-MB (CK-2) Troponin I 0.473 0.681 0.594 NT-Pro-B Natriuret Pep Impressions: Chest X-Ray 12/04/19 00:00 IMPRESSION: Low lung volumes. Otherwise stable radiographic appearance of the chest demonstrating cardiomegaly with mild central vascular congestion. Assessment & Plan - Diagnosis (1) Gastrointestinal bleed Is this a current diagnosis for this admission?: Yes Plan: Appears to have stopped by the character of his bowel movements. Patient not sufficiently prepped as evidenced by brown stool. Patient is a pulmonary cripple and would like to avoid multiple sedation episodes for endoscopy. Will have the patient attempt to take the remainder of his prep today. If can obtain adequate prep, upper and lower endoscopy tomorrow. - Time Anticipated Discharge Disposition: Home, Self Care Anticipated Discharge Timeframe: Week
[2019-12-06] MEDS: CARVEDILOL 3.125 MG TABLET PO SCH ×2 (11:30→21:59)
[2019-12-06] MEDS: PANTOPRAZOLE SODIUM 40 MG VIAL IV SCH ×2 (11:30→21:59)
[2019-12-06] MEDS: SACUBITRIL/VALSARTAN 24 MG/26 MG TABLET PO SCH ×2 (11:30→18:13)
[2019-12-06] MEDS: CYCLOSPORINE 0.05% OPH EMULSIO 0.4 ML DROPERETTE OU SCH ×2 (11:30→21:59)
--- NOTE | 2019-12-06 12:21 | PDOC PROGRESS REPORT ---
Subjective Progress Note for:: 12/06/19 Subjective:: THEODORE SON is a 69 year old male with history of obesity, hypertension, hyperlipidemia, diabetes, sleep apnea, COPD, heart failure with reduced ejection fraction, lymphoma and atrial fibrillation who is consulted to our service for further evaluation of heart failure. He has had multiple hospitalizations for heart failure in the recent past the most recent of which was at [facility] 01/19/19 through 02/07/19 after he presented to [facility] not feeling well and was found to be in complete heart block therefore he underwent pacemaker placement on 01/24/[address] Christian. During that hospitalization he was found also to have ventricular tachycardia, decompensated heart failure, acute kidney injury. His ejection fraction was 40%. He also developed pocket hematoma at the site of the pacemaker reason why his Eliquis was held. His device interrogation in June 2019 demonstrated recurrence of his atrial fibrillation.he had been in his usual state of health until the day of admission when he called EMS due to pressure-like chest pain associated with nausea. EMS found the patient in ventricular tachycardia which did not respond to 2 doses of adenosine followed by 150 mg of amiodarone with resolution of the rhythm. He had an uneventful night and without further episodes of ventricular tachycardia. He is on BiPAP and easily arousable. He appears to be uncomfortable in bed however denies chest pain, shortness of breath, palpitations, dizziness or lightheadedness. His most recent pacemaker interrogation in October 2019 demonstrated atrial flutter with VT of unknown duration. He has received only 1 dose of Lasix at 2200 last night but his intake and output has not been reported yet this morning. 12/06/2019: The patient was initially admitted on 11/27/2019 for heart failure decompensation. He had been followed by Dr. Melara during the last week. The patient had been diuresed however developed acute kidney injury with an elevated creatinine which has remained elevated at 2.3 with worsening of his BUN which is currently 100. His Lasix was discontinued because of his JOHANNY. His case is complicated by a significant drop in his hemoglobin secondary to a GI bleed. He was started on gentle hydration yesterday and he looks a whole lot better today. He is more awake, with a decrease in BUN and creatinine. Unfortunately his bowel prep is incomplete therefore he will not undergo colonoscopy today. Of note, his telemetry shows a paced rhythm without recurrence of VT. Physical exam on 12/06/2019: GENERAL: Awake on a BiPAP machine, follows commands.. Periorbital edema is noted. He looks more comfortable today in bed. Disheveled and morbidly obese. HEENT: Normocephalic, atraumatic. Pupils equal. Sclerae anicteric. Oropharynx dry. NECK: Difficult to evaluate for JVD due to his body habitus. No carotid bruits. LUNGS: Difficult to assess due to BiPAP background noise however no significant crackles noted. CARDIOVASCULAR: Regular rate and rhythm, normal S1 and S2 without murmurs, rubs, or gallops. PMI not displaced. ABDOMEN: Difficult to evaluate for organomegaly given his obesity. No bruit. No splenomegaly or hepatomegaly. No abdominal aorta bruit noted. EXTREMITIES: No pitting edema bilaterally, no cyanosis, no clubbing. +2 pulses femoral and pedal pulses bilaterally. MUSCULOSKELETAL: No chest tenderness to palpation. Multiple ecchymosis throughout his body. NEUROLOGIC: Nonfocal. No gross sensory or motor deficits bilateral upper or lower extremities. NAME: THEODORE SON DATE OF : 1950 PROVIDER: CHAD JAIN MD TIME D/T: 10:46 / 11:29 DATE OF ADMISSION: 01/19/2019 DATE OF DISCHARGE: 02/07/2019 DISCHARGE DIAGNOSES: 1. Complete heart block, status post pacemaker placement on 01/24/2019. 2. Ventricular tachycardia which has resolved. 3. Acute on top of chronic hypoxic respiratory failure, felt related to chronic obstructive pulmonary disease. 4. Obstructive sleep apnea, on CPAP. 5. Acute decompensated congestive heart failure which is systolic and diastolic with ejection fraction of 40%. 6. Ambulatory dysfunction. 7. Type 2 diabetes mellitus with peripheral neuropathy and hypoglycemia. 8. Hyponatremia, resolved. 9. Acute kidney injury, resolved. 10. Anemia felt of chronic illness. 11. Klebsiella pneumonia urinary tract infection, status post full course of therapy. 12. Hyperphosphatemia, resolved. 13. Persistent atrial fibrillation. At this point in time on anticoagulation due to bleeding around his pacemaker. 14. Postoperative hematoma. 15. Hyperlipidemia. 16. Gastroesophageal reflux disease. 17. Morbid obesity. Body mass index of almost 40. 18. Possible adverse reaction to Depakote which was discontinued. HISTORY OF PRESENT ILLNESS AND HOSPITALIZATION COURSE: This is a very delightful 68-year-old male patient with past medical history significant for atrial fibrillation, morbid obesity, and diabetes mellitus requiring insulin who initially presented to [facility] not feeling well. The patient was diagnosed with significant bradycardia and complete heart block, he was having acute kidney injury and hyperkalemia and he was transferred to our facility, the patient was initially admitted to the ICU, he was hydrated and he was placed on intravenous steroids. The patient was seen by Cardiology and he had a biventricular pacemaker placed on 01/24 that was complicated with some hematoma at the incision site. His anticoagulation was discontinued. The patient was kept only on aspirin for now. His hematoma has indeed improved. He was also diagnosed with UTI with Klebsiella pneumonia that was treated with IV antibiotics. The patient is afebrile. His WBC has normalized. He also had encephalopathy which felt related to multiple factors including CO2 narcosis, hypoglycemia as well as medications. We did adjust his diabetes regimen, I think we will discharge him home on 20 of Lantus, his dose to be adjusted accordingly as outpatient. The patient also had a chest x-ray that showed no evidence of pneumothorax or large effusions. He was placed on Lasix 20 mg p.o. b.i.d. Again, his dose can be adjusted accordingly as an outpatient. The patient again had improvement of his mental status, his blood sugar has been under control, indeed, I needed to change his Lantus to 20 units subcutaneously. I have made a lot of changes of his medications, Depakote was discontinued. His trazodone was discontinued. I do not think he needs any pain medications other than Tylenol for now. The patient has done well over the last 24 hours. He has been up and communicating pretty well, he needs to sleep with the BiPAP. He is on oxygen at home. Initially recommended placement to SNF however, his family insisted to take him home. I will arrange for home health. The patient has some equipment, he has BiPAP and he has oxygen. He has a very supportive family. I think he is stable for discharge today. He was up in his bed, mentating well this morning. He had a pretty good night. Eating well. No chest pain. No swelling. His vital signs and labs are stable. PHYSICAL EXAMINATION: GENERAL: He is alert, awake, mentating well with no apparent distress. VITAL SIGNS: Temperature was 36.5 degrees, pulse 61, respiratory rate 18, blood pressure was 146/51. HEENT: Atraumatic. Oral mucosa is moist. NECK: Supple. No goiter. CHEST: Clear. HEART: Regular, not tachycardic. ABDOMEN: Soft, nontender. Bowel sounds are active. MUSCULOSKELETAL EXAM: Good pulses. No clubbing or cyanosis. NEURO EXAM: Mentating well, no slurred speech or facial asymmetry. The patient has debility. No tremors or focal deficits. LABORATORY DATA: WBC was 5.8, hemoglobin 9.6, platelet count 149,000. Sodium 140, potassium 4.1, BUN of 24, creatinine of 0.88. Phosphorus was 3.5 with magnesium of 1.8. Blood sugar 220 and 240. Blood cultures negative. DIAGNOSTIC DATA: Echocardiogram on 01/20 showed ejection fraction of 40%- 45% with some global hypokinesia. The patient has trace mitral regurgitation. CONSULTS: 1. Physical therapy. 2. Cardiology service. 3. EP service. DISPOSITION: Home today with home health. MEDICATIONS: Please refer to the medication reconciliation form that was on the chart. CODE STATUS: The patient is DNR that will be honored. CONDITION ON DISCHARGE: Stable. DIET: Cardiac/1800 ADA. FOLLOW-UP: 1. Follow up with Dr. Berry from Cardiology in 1 week, he has an appointment on the 18 of February. We need to discuss and decide about his Eliquis that was held during this admission due to hematoma at his procedure site. 2. Follow up with his PCP in a week. 3. Call 911 for any emergency or unusual symptoms. 4. Check his blood sugar at least twice a day, document the readings for further adjustment of the new regimen as outpatient. 5. I did talk to the patient at length about his condition, his was at bedside. She is his main caregiver. I think he is stable for discharge. Outpatient general cardiology visit on Jul 20: 69-year-old male with history of obesity, hypertension, hyperlipidemia, diabetes, sleep apnea, COPD, heart failure with reduced ejection fraction, lymphoma and atrial fibrillation who returns today for follow-up on heart failure. He has had multiple hospitalizations for heart failure as described below. The patient has done well since the prior visit and lost 4 more pounds. He feels much better. There has been no more interim hospitalizations. He was admitted to [facility] 01/19/19 through 02/07/19 after he presented to [facility] not feeling well and was found to be in complete heart block therefore he underwent pacemaker placement on 01/24/[address] Christian. During that hospitalization he was found also to have ventricular tachycardia, decompensated heart failure, acute kidney injury. His ejection fraction was 40%. He also developed pocket hematoma at the site of the pacemaker reason why his Eliquis was held. His device interrogation in June 2019 demonstrated recurrence of his atrial fibrillation. Hospitalizations: -07/07/16 through 07/11/16 at [facility]: Decompensated heart failure. -Unknown date at [facility]: Severe infection in the scrotal area requiring surgery. -June 2018 at [facility]: Respiratory failure, anemia and paro xysmal atrial fibrillation after he was found obtunded at home. He required intubation. -01/19/19 through 02/07/19: [facility] for complete heart block, ventricular tachycardia, acute on chronic hypoxemic respiratory failure secondary to COPD, acute decompensated heart failure. Reason For Visit: VENTRICULAR TACHYCARDIA, ACUTE ON CHRONIC Physical Exam Vital Signs: Temp Pulse Resp BP Pulse Ox 98.2 F 79 18 113/67 100 12/06/19 09:08 12/06/19 08:07 12/06/19 08:07 12/06/19 08:07 12/06/19 08:07 Intake & Output 12/05/19 12/06/19 12/07/19 06:59 06:59 06:59 Intake Total 1373 1590 Output Total 1625 Balance 1373 -35 Weight 121.9 kg 130.9 kg Results Laboratory Results: 12/06/19 06:13 12/06/19 06:13 12/05/19 12/05/19 12/05/19 06:46 09:38 15:23 WBC 6.6 RBC 2.86 L Hgb 8.0 L Hct 24.1 L MCV 84 MCH 28.2 MCHC 33.4 RDW 17.4 H Plt Count 165 Seg Neutrophils % 79.0 H Sodium Potassium Chloride Carbon Dioxide Anion Gap BUN Creatinine Est GFR ( Amer) Glucose Calcium Magnesium 2.8 H Total Bilirubin AST Alkaline Phosphatase Total Protein Albumin Blood Type O NEGATIVE Antibody Screen NEGATIVE 12/06/19 12/06/19 06:13 06:13 WBC 7.2 RBC 2.73 L Hgb 7.7 L Hct 23.1 L MCV 85 MCH 28.2 MCHC 33.3 RDW 17.5 H Plt Count 164 Seg Neutrophils % 76.4 Sodium 143.4 Potassium 3.9 Chloride 103 Carbon Dioxide 33 H Anion Gap 7 BUN 87 H Creatinine 1.92 H Est GFR ( Amer) 42 L Glucose 44 L Calcium 8.1 L Magnesium Total Bilirubin 1.2 AST 31 Alkaline Phosphatase 215 H Total Protein 5.4 L Albumin 3.3 L Blood Type Antibody Screen 11/27/19 11/27/19 11/27/19 14:30 14:30 14:30 Creatine Kinase 93 CK-MB (CK-2) 2.99 Troponin I 0.044 NT-Pro-B Natriuret Pep 4090 H 11/27/19 11/28/19 11/28/19 20:00 02:10 08:23 Creatine Kinase CK-MB (CK-2) Troponin I 0.473 0.681 0.594 NT-Pro-B Natriuret Pep Impressions: Chest X-Ray 12/04/19 00:00 IMPRESSION: Low lung volumes. Otherwise stable radiographic appearance of the chest demonstrating cardiomegaly with mild central vascular congestion. 12/06/19 06:13 12/06/19 06:13 MCV 85 fl (80-97) 12/06/19 06:13 MCH 28.2 pg (27.0-33.4) 12/06/19 06:13 MCHC 33.3 g/dL (32.0-36.0) 12/06/19 06:13 RDW 17.5 % (11.5-14.0) H 12/06/19 06:13 Seg Neutrophils % 76.4 % (42-78) 12/06/19 06:13 Carbonic Acid 2.11 mmol/L (1.05-1.35) H 12/04/19 12:00 HCO3/H2CO3 Ratio 15:1 12/04/19 12:00 ABG pH 7.30 (7.35-7.45) L 12/04/19 12:00 ABG pCO2 70.2 mmHg (35-45) H* 12/04/19 12:00 ABG pO2 125.9 mmHg (80-100) H 12/04/19 12:00 ABG HCO3 33.4 mmol/L (20-24) H 12/04/19 12:00 ABG O2 Saturation 98.0 % (94-98) 12/04/19 12:00 ABG Base Excess 5.9 mmol/L 12/04/19 12:00 VBG pH 7.30 (7.30-7.42) 11/27/19 16:18 VBG pCO2 71.5 mmHg (35-63) H* 11/27/19 16:18 VBG HCO3 34.0 mmol/L (20-32) H 11/27/19 16:18 VBG Base Excess 5.9 mmol/L 11/27/19 16:18 FiO2 45% 12/04/19 12:00 Chloride 103 mmol/L (98-107) 12/06/19 06:13 Carbon Dioxide 33 mmol/L (22-30) H 12/06/19 06:13 Anion Gap 7 (5-19) 12/06/19 06:13 Est GFR ( Amer) 42 (>60) L 12/06/19 06:13 Glucose 44 mg/dL (75-110) L 12/06/19 06:13 Calcium 8.1 mg/dL (8.4-10.2) L 12/06/19 06:13 Magnesium 2.8 mg/dL (1.6-2.3) H 12/05/19 06:46 Total Bilirubin 1.2 mg/dL (0.2-1.3) 12/06/19 06:13 AST 31 U/L (17-59) 12/06/19 06:13 Alkaline Phosphatase 215 U/L (38-126) H 12/06/19 06:13 Ammonia 39.7 umol/L (9-33) H 12/03/19 11:33 Total Protein 5.4 g/dL (6.3-8.2) L 12/06/19 06:13 Albumin 3.3 g/dL (3.5-5.0) L 12/06/19 06:13 TSH 2.09 uIU/mL (0.47-4.68) 11/28/19 08:23 Free T4 1.18 ng/dL (0.78-2.19) 11/28/19 08:23 Urine Color YELLOW 11/27/19 16:00 Urine Appearance CLEAR 11/27/19 16:00 Urine pH 5.0 (5.0-9.0) 11/27/19 16:00 Ur Specific [place] 1.016 11/27/19 16:00 Urine Protein 30 mg/dL (NEGATIVE) H 11/27/19 16:00 Urine Glucose (UA) NEGATIVE mg/dL (NEGATIVE) 11/27/19 16:00 Urine Ketones NEGATIVE mg/dL (NEGATIVE) 11/27/19 16:00 Urine Blood NEGATIVE (NEGATIVE) 11/27/19 16:00 Urine Nitrite NEGATIVE (NEGATIVE) 11/27/19 16:00 Ur Leukocyte Esterase NEGATIVE (NEGATIVE) 11/27/19 16:00 Urine WBC (Auto) 1 /HPF 11/27/19 16:00 Urine RBC (Auto) 0 /HPF 11/27/19 16:00 Stool Occult Blood POSITIVE (NEGATIVE) 12/05/19 05:50 Blood Type O NEGATIVE 12/05/19 09:38 Antibody Screen NEGATIVE 12/05/19 09:38 11/27/19 11/27/19 11/27/19 14:30 14:30 14:30 Creatine Kinase 93 CK-MB (CK-2) 2.99 Troponin I 0.044 NT-Pro-B Natriuret Pep 4090 H 11/27/19 11/28/19 11/28/19 20:00 02:10 08:23 Creatine Kinase CK-MB (CK-2) Troponin I 0.473 0.681 0.594 NT-Pro-B Natriuret Pep Current Medication List Generic Name Dose Route Start Last Admin Trade Name Freq PRN Reason Stop Dose Admin Acetaminophen 650 mg 11/27/19 18:10 12/05/19 18:06 Tylenol 325 Mg Tablet PO 12/27/19 18:09 650 mg Q4HP PRN Administration FOR PAIN Albuterol/Ipratropium 3 ml 12/02/19 08:46 Duoneb 3 Ml Ampul NEB 01/01/20 08:45 RTQ4HP PRN SHORTNESS OF BREATH Amiodarone HCl 400 mg 11/28/19 17:00 12/06/19 06:59 Cordarone 200 Mg Tablet PO 12/28/19 16:59 400 mg Q12A EMIL Administration Atorvastatin Calcium 80 mg 11/28/19 10:00 12/05/19 10:00 Lipitor 80 Mg Tablet PO 12/28/19 09:59 80 mg DAILY EMIL Administration Buspirone HCl 10 mg 11/28/19 18:00 12/05/19 17:52 Buspar 10 Mg Tablet PO 12/28/19 17:59 10 mg QPM EMIL Administration Carvedilol 3.125 mg 11/28/19 22:00 12/05/19 22:56 Coreg 3.125 Mg Tablet PO 12/28/19 21:59 Not Given Q12 EMIL Cyclosporine 1 drop 12/02/19 14:00 12/05/19 22:59 Restasis 0.05% Oph Emulsion Pf 0.4 Ml OU 01/01/20 13:59 Not Given Q12 EMIL Dextrose 12.5 gm 11/27/19 18:22 12/04/19 07:31 Dextrose Inj 50% Syringe (25 Gm/50 Ml) IV 12/27/19 18:21 12.5 gm PRN PRN Administration FOR BG 50-69 IN ALERT PATIENT Protocol Dextrose 25 gm 11/27/19 18:22 Dextrose Inj 50% Syringe (25 Gm/50 Ml) IV 12/27/19 18:21 PRN PRN PER PROTOCOL Protocol Glucagon 1 mg 11/27/19 18:22 Glucagen Inj 1 Mg Vial IM 12/27/19 18:21 PRN PRN Evaluate for BG < 70 Protocol Glucose 15 gm 11/27/19 18:22 Glutose 40% Gel 15 Gm Tube PO 12/27/19 18:21 PRN PRN FOR BG 50-69 IN ALERT PATIENT Protocol Glucose 30 gm 11/27/19 18:22 Glutose 40% Gel 15 Gm Tube PO 12/27/19 18:21 PRN PRN FOR BG < 50 IN ALERT PATIENT Protocol Sodium Chloride 1,000 mls @ 80 mls/hr 12/05/19 10:25 12/06/19 06:57 Nacl 0.9% 1000 Ml Iv Soln IV 01/04/20 10:24 80 mls/hr CONTINUOUS PRN Administration THIS MED IS NOT "PRN" Insulin Glargine 40 unit 11/27/19 22:00 12/05/19 22:59 Lantus Insulin 100 Unit/1 Ml 10 Ml SUBCUT 12/27/19 21:59 40 unit QHS EMIL Administration Insulin Human Lispro 0 - 12 unit 11/27/19 22:00 12/06/19 08:02 Humalog Insulin 100 Unit/1 Ml 3 Ml Vial SUBCUT 12/27/19 21:59 Not Given ACHS EMIL Protocol Melatonin 10 mg 11/30/19 20:18 12/02/19 23:02 Melatonin 5 Mg Tablet PO 12/30/19 20:17 10 mg HSP PRN Administration FOR SLEEP Nicotine 1 each 11/27/19 18:46 11/27/19 21:18 Nicoderm 21 Mg/24 Hr Transderm Patch TD 12/27/19 18:45 1 each DAILYP PRN Administration nicotine craving Ondansetron HCl 4 mg 11/28/19 14:00 Zofran Inj/Pf 4 Mg/2 Ml Sdv IV 12/27/19 18:09 Q8HP PRN FOR NAUSEA/VOMITING Pantoprazole Sodium 40 mg 12/05/19 15:15 12/05/19 22:58 Protonix Iv Inj 40 Mg Vial IV 12/08/19 15:14 40 mg Q12 EMIL Administration Sacubitril/Valsartan 1 tab 11/29/19 10:00 12/05/19 17:52 Entresto 24 Mg/26 Mg Tablet PO 12/29/19 09:59 1 tab BID EMIL Administration Discontinued Medications Generic Name Dose Route Start Last Admin Trade Name Freq PRN Reason Stop Dose Admin Acetazolamide 500 mg 11/28/19 22:00 12/01/19 21:13 Diamox 250 Mg Tab PO 12/28/19 21:59 500 mg QHS EMIL Administration Albuterol/Ipratropium Confirm 12/02/19 08:50 12/02/19 17:43 Duoneb 3 Ml Ampul Administered 12/02/19 08:51 Not Given Dose 3 ml NEB .STK-MED ONE Amiodarone HCl Confirm 11/27/19 15:14 11/27/19 15:34 Cordarone Inj 150 Mg/3 Ml Vial Administered 11/27/19 15:15 Not Given Dose 150 mg IV .STK-MED ONE Amiodarone HCl Confirm 11/27/19 15:19 11/27/19 15:34 Cordarone Inj 150 Mg/3 Ml Vial Administered 11/27/19 15:20 Not Given Dose 150 mg IV .STK-MED ONE Apixaban 5 mg 11/27/19 22:00 11/28/19 09:41 Eliquis 5 Mg Tablet PO 12/27/19 21:59 5 mg Q12 EMIL Administration Apixaban 5 mg 11/28/19 18:00 12/05/19 10:00 Eliquis 5 Mg Tablet PO 12/28/19 17:59 Not Given BID EMIL Aspirin 81 mg 11/27/19 18:30 12/05/19 10:00 Aspirin 81 Mg Chewable Tablet PO 12/27/19 18:29 81 mg DAILY EMIL Administration Aspirin 324 mg 11/27/19 21:46 11/27/19 22:11 Aspirin 81 Mg Chewable Tablet PO 11/27/19 21:47 324 mg NOW ONE Administration Aspirin Confirm 11/27/19 22:12 11/27/19 23:06 Aspirin 81 Mg Chewable Tablet Administered 11/27/19 22:13 Not Given Dose 81 mg .ROUTE .STK-MED ONE Atorvastatin Calcium 80 mg 11/27/19 18:45 11/27/19 18:55 Lipitor 80 Mg Tablet PO 11/27/19 18:46 80 mg NOW ONE Administration Buspirone HCl 10 mg 11/27/19 18:45 11/27/19 18:55 Buspar 10 Mg Tablet PO 11/27/19 18:46 10 mg NOW ONE Administration Carvedilol 6.25 mg 11/28/19 10:00 Coreg 6.25 Mg Tablet PO 12/28/19 09:59 Q12 [facility] Carvedilol 6.25 mg 11/27/19 18:45 11/27/19 18:56 Coreg 6.25 Mg Tablet PO 11/27/19 18:46 6.25 mg NOW ONE Administration Carvedilol 3.125 mg 11/28/19 10:00 11/28/19 18:28 Coreg 3.125 Mg Tablet PO 12/28/19 09:59 Not Given Q12 [facility] Enoxaparin Sodium 130 mg 11/27/19 23:00 Lovenox Inj 150 Mg/1 Ml Disp.Syrin SUBCUT 12/27/19 22:59 Q12 [facility] Enoxaparin Sodium 130 mg 11/28/19 10:00 Lovenox Inj 150 Mg/1 Ml Disp.Syrin SUBCUT 12/28/19 09:59 Q12 [facility] Furosemide 40 mg 11/27/19 14:59 11/27/19 15:08 Lasix Inj/Pf 40 Mg/4 Ml Sdv IV 10/11/20 15:00 40 mg NOW ONE Administration Furosemide 80 mg 11/27/19 22:00 11/28/19 09:32 Lasix Inj/Pf 100 Mg/10 Ml Sdv IV 12/27/19 21:59 80 mg Q12H EMIL Administration Furosemide 80 mg 11/28/19 22:00 11/29/19 21:13 Lasix Inj/Pf 40 Mg/4 Ml Sdv IV 12/28/19 21:59 Not Given Q12 EMIL Furosemide 40 mg 11/30/19 14:00 11/30/19 17:15 Lasix Inj/Pf 40 Mg/4 Ml Sdv IV 12/30/19 13:59 Not Given BID EMIL Furosemide 40 mg 12/04/19 07:55 Lasix Inj/Pf 40 Mg/4 Ml Sdv IV 12/04/19 07:56 NOW ONE Furosemide 40 mg 12/04/19 12:00 12/04/19 12:08 Lasix Inj/Pf 40 Mg/4 Ml Sdv IV 12/04/19 12:01 40 mg NOW ONE Administration Amiodarone HCl 900 mg/ 500 mls @ 0 mls/hr 11/27/19 14:54 11/28/19 18:27 Dextrose IV 11/30/19 14:53 Infused CONTINUOUS PRN Titration THIS MED IS NOT "PRN" Protocol Per Protocol Lactated Ringer's 1,000 mls @ 80 mls/hr 12/02/19 12:27 12/02/19 12:53 Lactated Ringers 1000 Ml Iv Soln IV 80 mls/hr CONTINUOUS PRN Administration THIS MED IS NOT "PRN" Sodium Chloride 1,000 mls @ 100 mls/hr 12/04/19 07:58 12/04/19 17:30 Nacl 0.9% 1000 Ml Iv Soln IV 01/03/20 07:57 Infused CONTINUOUS PRN Infusion THIS MED IS NOT "PRN" Calcium Gluconate 1 gm in 50 mls @ 50 mls/hr 12/04/19 08:30 12/04/19 10:09 Calcium Gluconate Rtu 1 Gm/50 Ml IV 12/04/19 10:29 50 mls/hr Q1H EMIL Administration Sodium Chloride 250 mls @ 30 mls/hr 12/05/19 07:54 Nacl 0.9% 250 Ml Iv Soln IV 12/06/19 07:53 .DURING TRANSFUSION PRN THIS MED IS NOT "PRN" Sodium Chloride 250 mls @ 0 mls/hr 12/05/19 07:54 Nacl 0.9% 250 Ml Iv Soln IV 12/06/19 07:53 CONTINUOUS PRN AFTER EACH UNIT As Directed Influenza Virus Vaccine Quadrival 0.5 ml 12/01/19 08:00 Flulaval Quad 2020- Vac 0.5 Ml Syr IM 12/01/19 08:01 .ONCE ONE Insulin Glargine 40 unit 11/27/19 18:38 Lantus (Pyxis) Insulin 100 Unit/1 Ml 10 Ml SUBCUT 11/27/19 23:59 ASDIR PRN Insulin Human Regular Confirm 11/27/19 18:54 11/27/19 19:01 Humulin R (Pyxis) Insulin 100 Unit/Ml 3ml Administered 11/27/19 18:55 Not Given Dose 1 unit .ROUTE .STK-MED ONE Morphine Sulfate 2 mg 11/27/19 14:59 11/27/19 15:07 Morphine 10 Mg/Ml Inj IV 11/27/19 15:00 2 mg NOW ONE Administration Ondansetron HCl 4 mg 11/27/19 18:10 Zofran Inj/Pf 4 Mg/2 Ml Sdv IV 12/27/19 18:09 Q8HP PRN FOR NAUSEA/VOMITING Polyethylene Glycol/Electrolytes 4,000 ml 12/05/19 15:00 12/05/19 15:15 Golytely Solution 4000 Ml PO 12/05/19 15:01 4,000 ml NOW ONE Administration Assessment & Plan - Diagnosis (1) Heart failure with reduced ejection fraction Plan: He looks much better today and is more awake and appropriate after gentle rehydration has taken place. His creatinine and BUN are improved. There has been a slight decrease in his hemoglobin which I believe might be dilutional although is not completely clear whether or not the patient continues to have melena. His blood pressure is stable and there is no clinical evidence of fluid overload. Recommendations: -Continue to hold diuresis. -Consider placement of PICC line per nursing request. -Continue with gentle IV hydration with close attention to BUN and creatinine as well as fluid status. -Continue with telemetry. -We will follow with you. (2) Elevated troponin Is this a current diagnosis for this admission?: Yes Plan: The patient had a mildly elevated troponin which has now down trended. I believe this issue is multifactorial to include ischemic heart disease particular in the setting of VT and decompensated heart failure however cannot completely rule out a degree of just supply/demand mismatch. Unfortunately the patient is not stable enough to undergo any kind of ischemic cardiac assessment at this point and has now developed a significant lower GI bleed therefore antiplatelet agents as well as anticoagulation cannot be instituted. Recommendations: -Continue with current medical management for now. -Discontinue baby aspirin. -We will continue to follow-up with you. (3) Ventricular tachycardia Is this a current diagnosis for this admission?: Yes Plan: Likely secondary to cardiac ischemia. Unfortunately patient is not a candidate for further ischemic assessment at this point. We will continue with current medical management and will consider further ischemic assessment when he improves. (4) Atrial fibrillation Is this a current diagnosis for this admission?: Yes Plan: Well controlled at this point. He is paced. He is not anticoagulated due to his GI bleed. We will consider restarting Eliquis after GI work-up. Recommendations: -Continue to hold Eliquis. (5) Hypertension Qualifiers: Hypertension type: essential hypertension Qualified Code(s): I10 - Essential (primary) hypertension Is this a current diagnosis for this admission?: Yes Plan: Blood pressure is at goal. We will continue with current medical management.
[2019-12-06] MEDS: ATORVASTATIN CALCIUM 80 MG TABLET PO SCH ×2 (12:58→21:59)
[2019-12-06] MEDS ORDERED: NORMAL SALINE 250 ML IV PRN ×2 (17:51)
[2019-12-06] MEDS: BUSPIRONE HCL 10 MG TABLET PO SCH (18:13)
[2019-12-06] MEDS ORDERED: POTASSI CL 20 MEQ/50 ML RIDER 20 MEQ/50 ML RTUPB IV ONE (18:50)
--- NOTE | 2019-12-06 19:04 | PDOC PROGRESS REPORT ---
Subjective Progress Note for:: 12/06/19 Subjective:: THEODORE SON is a 69 year old male with PMH of HTN, HLD, morbid obesity (BMI 43), atrial fibrillation on AC, CHB s/p pacemaker, HFrEF (40%), ventricular tachycardia, PAD, Follicular Lymphoma, insulin dependent DM2, and PATEL on BIPAP who was admitted 11/27/2019 with ventricular tachycardia and acute on chronic systolic CHF Patient was seen on morning rounds. He was found resting in bed, comfortably, on BiPAP. His was present. Patient was sleeping but woke easily when I said his name. He was oriented to self but quite fatigued and deferred the rest of the conversation to his . Patient spouse confirms that Dr. Berry has told them that he will be difficult to proceed with further cardiac evaluation due to the patient's renal function. Patient's is able to describe to me the patient's waxing/waning renal function since admission. She also acknowledges the need for EGD and colonoscopy to evaluate the patient's development of acute blood loss anemia secondary to melena. They have no specific questions or concerns at this time. Patient spouse does confirm that he wish for us to continue with medical interventions. Did not discuss CODE STATUS or goals of care at this time. They have no further questions at this time. No concerns per nursing. Reason For Visit: VENTRICULAR TACHYCARDIA, ACUTE ON CHRONIC Physical Exam Vital Signs: Temp Pulse Resp BP Pulse Ox 97.6 F 80 19 134/59 H 100 12/06/19 15:43 12/06/19 15:43 12/06/19 15:43 12/06/19 15:43 12/06/19 15:43 Intake & Output 12/05/19 12/06/19 12/07/19 06:59 06:59 06:59 Intake Total 1373 1590 Output Total 1625 Balance 1373 -35 Weight 121.9 kg 130.9 kg General appearance: PRESENT: cooperative, obese, well-developed, well-nourished, other - chronically ill appearing Head exam: PRESENT: atraumatic, normocephalic Eye exam: PRESENT: conjunctiva pale, EOMI, PERRLA. ABSENT: scleral icterus Mouth exam: PRESENT: moist, tongue midline Respiratory exam: PRESENT: crackles, prolonged expiratory phas, symmetrical, unlabored, other - BiPAP. ABSENT: rales, rhonchi, wheezes Cardiovascular exam: PRESENT: irregular rhythm, +S1, +S2. ABSENT: diastolic murmur, rubs, systolic murmur Vascular exam: PRESENT: normal capillary refill GI/Abdominal exam: PRESENT: normal bowel sounds, soft, tenderness - vague/generalized intermittent cramping (currently drinking bowel prep). ABSENT: distended, guarding, mass, organolmegaly, rebound Rectal exam: PRESENT: heme (+) stool Extremities exam: PRESENT: full ROM. ABSENT: calf tenderness, clubbing, pedal edema Neurological exam: PRESENT: alert, awake, oriented to person, CN II-XII grossly intact, other - lethargic; intermittent confusion. ABSENT: motor sensory deficit Psychiatric exam: PRESENT: appropriate affect, normal mood. ABSENT: homicidal ideation, suicidal ideation Skin exam: PRESENT: dry, intact, pallor, warm. ABSENT: cyanosis, rash Results Laboratory Results: 12/06/19 06:13 12/06/19 06:13 12/06/19 12/06/19 06:13 06:13 WBC 7.2 RBC 2.73 L Hgb 7.7 L Hct 23.1 L MCV 85 MCH 28.2 MCHC 33.3 RDW 17.5 H Plt Count 164 Seg Neutrophils % 76.4 Sodium 143.4 Potassium 3.9 Chloride 103 Carbon Dioxide 33 H Anion Gap 7 BUN 87 H Creatinine 1.92 H Est GFR ( Amer) 42 L Glucose 44 L Calcium 8.1 L Total Bilirubin 1.2 AST 31 Alkaline Phosphatase 215 H Total Protein 5.4 L Albumin 3.3 L 11/27/19 11/27/19 11/27/19 14:30 14:30 14:30 Creatine Kinase 93 CK-MB (CK-2) 2.99 Troponin I 0.044 NT-Pro-B Natriuret Pep 4090 H 11/27/19 11/28/19 11/28/19 20:00 02:10 08:23 Creatine Kinase CK-MB (CK-2) Troponin I 0.473 0.681 0.594 NT-Pro-B Natriuret Pep Impressions: Chest X-Ray 12/04/19 00:00 IMPRESSION: Low lung volumes. Otherwise stable radiographic appearance of the chest demonstrating cardiomegaly with mild central vascular congestion. Assessment and Plan - Diagnosis (1) GI bleed Qualifiers: Is this a current diagnosis for this admission?: Yes Plan: Surgery is consulted; appreciate Dr. Jarrell's assistance. 1 unit FFP today for further reversal of Eliquis Completing extended bowel prep today with EGD and colonoscopy planned for tomorrow. Aspirin and Eliquis have been placed on hold. IV Protonix twice daily Patient has received 1 unit PRBCs. (2) Acute on chronic systolic CHF (congestive heart failure) Is this a current diagnosis for this admission?: Yes Plan: - repeat echo EF <35%, LV moderately dilated, severe global hypokinesis - has a pacemaker; would benefit from AICD as the patient has had episodes of ventricular tachycardia - BNP 4090 - trop peaked at 0.68 trended down to 0.59 - started on Entresto with holding parameters - continue carvedilol - Holding the spironolactone secondary to worsening renal function. - Holding aspirin and Eliquis secondary to GI bleed. - started on IV Fluids for worsening kidney function and GI bleed. Will closely follow his volume status - daily weights 135.6kg -> 130 kg - strict IO - fluid and sodium restriction - cardio following. Per Dr. Berry, with his deteriorating kidney function a [facility] may not be feasible at this time. (3) JOHANNY (acute kidney injury) Is this a current diagnosis for this admission?: Yes Plan: - Crea 1.72>1.94>1.97>2.3>2.3>2.32-> 1.92 unclear baseline. Normal renal function 2018. - JOHANNY on top of CKD, or cardiorenal Nephrology is consulted; appreciate their evaluation recommendations. Avoid nephrotoxic medications as able; renally dosed where appropriate. Undertake evaluation of GI bleeding is this may be contributing to the elevated BUN. Continue gentle IV fluid hydration. Arzate catheter for strict VIRGILIO's. Optimize cardiac output. Follow-up chemistries. (4) Hypercapnic respiratory failure Qualifiers: Chronicity: acute on chronic Qualified Code(s): J96.22 - Acute and chronic respiratory failure with hypercapnia Is this a current diagnosis for this admission?: Yes Plan: - ABG pH 7.3, pCO2 70, pO2 125.9, bicarb 33.4 - placed back on BIPAP - advised nurse to keep him on BIPAP (5) NSTEMI (non-ST elevated myocardial infarction) Is this a current diagnosis for this admission?: Yes Plan: No evidence of ischemic changes on EKG and currently CP free. Likely demand mismatch ischemia. However, given VT, he will absolutely need an ischemic work up with [facility]. Renal function is currently prohibiting this. - Trop peaked at 0.68 decreased to 0.59 - continue aspirin, carvedilol, statin Cardiology is consulted. Primary management per Dr. Berry. (6) PATEL (obstructive sleep apnea) Is this a current diagnosis for this admission?: Yes Plan: - on BIPAP (7) Physical deconditioning Is this a current diagnosis for this admission?: Yes Plan: - PT/OT Discharge planning consulted (8) Ventricular tachycardia Is this a current diagnosis for this admission?: Yes Plan: - has a Pacemaker, would need to be updated to an ICD - on PO amiodarone - continue carvedilol - cardio following. Primary management per cardiology. Not a candidate for further ischemic assessment at this point. Continue medical management. - keep K>4, Mg >2 (9) Atrial fibrillation Is this a current diagnosis for this admission?: Yes Plan: Holding Eliquis secondary to blood loss anemia secondary to GI bleed. - on amio and carvedilol Cardiology consulted. Continue monitor on telemetry. (10) Conjunctivitis Qualifiers: Conjunctivitis type: blepharoconjunctivitis Laterality: bilateral Is this a current diagnosis for this admission?: Yes Plan: Start erythromycin ointment (11) Diabetes mellitus type 2 in obese Is this a current diagnosis for this admission?: Yes Plan: Continue home Lantus at half home dose of 40 units HS - SSI ACHS - carb controlled diet (12) Tobacco abuse Is this a current diagnosis for this admission?: Yes Plan: - encourage cessation - nicotine patch (13) Morbid obesity with BMI of 40.0-44.9, adult Is this a current diagnosis for this admission?: Yes Plan: - encouraged weight loss (14) Dry eyes, bilateral Is this a current diagnosis for this admission?: Yes Plan: - due to air leak from bipap - prescribed lubricant eye drops - Plan Summary Summary: Patient is a very sick 69-year-old male with history of heart failure with reduced ejection fraction EF of less than 35% ventricular tachycardia, survivor of cardiac arrest admitted due to acute decompensated heart failure. He was started on diuretics with plans to do a left heart cath as a work-up for his heart failure as soon as he was adequately diuresed. Unfortunately diuresis caused acute kidney injury and his creatinine started to trend up. Nephrology was consulted. He also developed an acute GI bleed and his aspirin and Eliquis was stopped. Surgery was consulted for a planned EGD and colonoscopy; have requested reversal of PT/PTT/INR. Mental status has been fluctuating as well with frequent episodes of drowsiness which was thought to be secondary to CO2 retention and hypermagnesemia. Dr. Berry has followed him for years and with the state of his kidneys he does not think that he is in any shape to undergo a cardiac cath at this moment. - Time Time Spent with patient: 35 or more minutes Medications reviewed and adjusted accordingly: Yes Anticipated Discharge Disposition: Home with Home Health Anticipated Discharge Timeframe: undetermined
[2019-12-06] MEDS: INSULIN GLARGINE,HUM.REC.ANLOG 1,000 UNIT/10 ML VIAL SUBCUT SCH (21:55)
[2019-12-07] MEDS: ERYTHROMYCIN 0.5% OPH OINTMENT 3.5 GM TUBE OU SCH ×4 (02:37→18:47)
[2019-12-07] MEDS: AMIODARONE HCL 200 MG TABLET PO SCH ×2 (05:28→18:46)
[2019-12-07 06:44] LABS: HEMATOCRIT 22.9 % (37.9-51.0); MEAN CORPUSCULAR HGB CONC 33.2 g/dL (32.0-36.0); MEAN CORPUSCULAR VOLUME 85 fl (80-97); PLATELET COUNT 163 10^3/uL (150-450); RED BLOOD COUNT 2.71 10^6/uL (4.35-5.55); RED CELL DISTRIBUTION WIDTH 17.7 % (11.5-14.0); WHITE BLOOD COUNT 9.3 10^3/uL (4.0-10.5)
[2019-12-07 06:54] LABS: INTERNATIONAL RATION (INR) 1.33; PROTHROMBIN TIME 16.7 SEC (11.4-15.4)
[2019-12-07 07:05] LABS: ALBUMIN 3.5 g/dL (3.5-5.0); ALKALINE PHOSPHATASE 240 U/L (38-126); ANION GAP 10 (5-19); ASPARTATE AMINO TRANSFERASE 32 U/L (17-59); BILIRUBIN,DIRECT 0.7 mg/dL (0.0-0.4); BILIRUBIN,TOTAL 1.2 mg/dL (0.2-1.3); BLOOD UREA NITROGEN 70 mg/dL (7-20); CALCIUM 8.2 mg/dL (8.4-10.2); CARBON DIOXIDE 33 mmol/L (22-30); CHLORIDE 104 mmol/L (98-107); POTASSIUM 3.7 mmol/L (3.6-5.0); TOTAL PROTEIN 5.6 g/dL (6.3-8.2)
[2019-12-07 07:19] LABS: GLUCOSE 42 mg/dL (75-110)
[2019-12-07 07:26] LABS: ABSOLUTE LYMPHOCYTES# (MANUAL) 0.7 10^3/uL (0.5-4.7); ABSOLUTE MONOCYTES # (MANUAL) 0.6 10^3/uL (0.1-1.4); BAND NEUTROPHILS % (MANUAL) 2 % (3-5); BASOPHILS % (MANUAL) 0 % (0-2); EOSINOPHILS % (MANUAL) 1 % (0-6); LYMPHOCYTES % (MANUAL) 8 % (13-45); MONOCYTES % (MANUAL) 6 % (3-13); SEGMENTED NEUTROPHILS % (MAN) 83 % (42-78); TOTAL CELLS COUNTED 100
[2019-12-07 07:27] LABS: ANISOCYTOSIS 1+; OVALOCYTES SLIGHT; PLATELET COMMENT ADEQUATE; POIKILOCYTOSIS SLIGHT; POLYCHROMASIA SLIGHT; STOMATOCYTES SLIGHT
[2019-12-07 07:30] LABS: HEMOGLOBIN 7.6 g/dL (13.5-17.0)
[2019-12-07] MEDS ORDERED: PROPOFOL INJ 200 MG/20 ML VIAL IV ONE (07:51)
[2019-12-07] MEDS ORDERED: EPHEDRINE SULFATE INJ 50 MG/1 ML AMPULE ONE (07:51)
[2019-12-07] MEDS ORDERED: DEXTROSE 5%-NORMAL SALINE 1,000 ML IV PRN (07:56)
[2019-12-07] MEDS ORDERED: DEXTROSE 5%-1/2 NORMAL SALINE 1,000 ML IV PRN (08:31)
[2019-12-07] MEDS ORDERED: MIDAZOLAM 2 MG/2 ML INJ ONE (08:31)
[2019-12-07] MEDS ORDERED: NORMAL SALINE 250 ML IV PRN ×2 (08:32)
[2019-12-07] MEDS ORDERED: FUROSEMIDE INJ/PF 20 MG/2 ML SDV IV PRN (08:32)
--- NOTE | 2019-12-07 09:25 | Operative Report ---
Nonrecallable Operative Report DATE OF SURGERY: 12/07/19 PREOPERATIVE DIAGNOSIS: Anemia POSTOPERATIVE DIAGNOSIS: 1. Same as above. 2. Mild gastritis. 3. Small, sliding hiatal hernia. 4. Normal colonic mucosa without signs of new blood, old blood, AV malformation, tumor, polyp, cancer, ulceration, inflammation, or other abnormality that would explain his anemia. OPERATION: 1. EGD with biopsy. 2. Colonoscopy to the cecum. SURGEON: PETE DWYER ANESTHESIA: LMAC TISSUE REMOVED OR ALTERED: Antral biopsy COMPLICATIONS: None apparent ESTIMATED BLOOD LOSS: Minimal PROCEDURE: Drains/implants: None. Procedure in detail: After informed consent was obtained, the patient was brought to the operating room and laid in the left lateral decubitus position. The endoscope was passed down the oropharynx, down the esophagus, and into the stomach. Within the stomach, there was a mild amount of antral gastritis. The scope was pushed through the pylorus, and into the first and second portion of the duodenum. The duodenum appeared normal. The scope was withdrawn into the gastric body. An antral biopsy was taken. Retroflexion maneuver was performed, noting a small, sliding hiatal hernia. The scope was withdrawn into the distal esophagus, which was free of significant ulceration. The scope was then wi thdrawn up the remainder of the esophagus. The remainder the esophagus was smooth in contour without masses, lesions, or other significant abnormalities. The scope was then withdrawn from the oropharynx, and this portion of the procedure was concluded. Attention was then turned to colonoscopy. The colonoscope was inserted into the rectum. It was passed up the rectum, sigmoid colon, descending colon, across the transverse colon, down the ascending colon, and into the cecum. The ileocecal valve was identified. The appendiceal orifice was obscured by liquid stool. The scope was then withdrawn, circumferentially noting the mucosa. The prep was fair. The scope was withdrawn past the ascending colon, transverse colon, down the descending colon, sigmoid colon, and into the rectum. Thro ughout the colon, there is no evidence of new blood, old blood, mass, lesion, ulceration, diverticula, or other significant abnormality. Once the rectum was reached, the scope was removed, and the procedure was concluded. All sponge, instrument, and needle counts were correct x2. Condition: Fair.
--- NOTE | 2019-12-07 09:30 | Progress Note ---
Provider Note Provider Note: EGD and colonoscopy were completed. The EGD shows a very mild amount of antral gastritis. The colonoscopy was essentially normal. No evidence of active or recent bleeding. Surgery will sign off at this time, as we have nothing further to offer. I recommend continuation of his PPI as an outpatient. Will need f ollow-up for his antral biopsy, to ensure he does not have H. pylori. If H. pylori is discovered, he will require treatment. Please renotify surgery service with any questions or concerns.
[2019-12-07] MEDS: INSULIN LISPRO 100 UNIT/ML 3 ML VIAL SUBCUT SCH ×4 (10:32→21:44)
--- NOTE | 2019-12-07 12:14 | PDOC PROGRESS REPORT ---
Subjective Progress Note for:: 12/07/19 Subjective:: THEODORE SON is a 69 year old male with history of obesity, hypertension, hyperlipidemia, diabetes, sleep apnea, COPD, heart failure with reduced ejection fraction, lymphoma and atrial fibrillation who is consulted to our service for further evaluation of heart failure. He has had multiple hospitalizations for heart failure in the recent past the most recent of which was at [facility] 01/19/19 through 02/07/19 after he presented to [facility] not feeling well and was found to be in complete heart block therefore he underwent pacemaker placement on 01/24/[address] Christian. During that hospitalization he was found also to have ventricular tachycardia, decompensated heart failure, acute kidney injury. His ejection fraction was 40%. He also developed pocket hematoma at the site of the pacemaker reason why his Eliquis was held. His device interrogation in June 2019 demonstrated recurrence of his atrial fibrillation.he had been in his usual state of health until the day of admission when he called EMS due to pressure-like chest pain associated with nausea. EMS found the patient in ventricular tachycardia which did not respond to 2 doses of adenosine followed by 150 mg of amiodarone with resolution of the rhythm. He had an uneventful night and without further episodes of ventricular tachycardia. He is on BiPAP and easily arousable. He appears to be uncomfortable in bed however denies chest pain, shortness of breath, palpitations, dizziness or lightheadedness. His most recent pacemaker interrogation in October 2019 demonstrated atrial flutter with VT of unknown duration. He has received only 1 dose of Lasix at 2200 last night but his intake and output has not been reported yet this morning. 12/07/2019: The patient had an uneventful night. He underwent EGD and colonoscopy only revealing mild gastritis without evidence of active bleeding, his colonoscopy was normal. He just got back to his room and is resting comfortably. He appears to be mildly sedated however he is able to open his eyes and follow simple commands. Is currently on room air with normal O2 sats. Of note, his telemetry shows a paced rhythm without recurrence of VT. Physical exam on 12/07/2019: GENERAL: Mildly sedated, on room air, follows commands.. Periorbital edema is noted. He looks more comfortable today in bed. Disheveled and morbidly obese. HEENT: Normocephalic, atraumatic. Pupils equal. Sclerae anicteric. Orop harynx dry. NECK: Difficult to evaluate for JVD due to his body habitus. No carotid bruits. LUNGS: Difficult to assess due to BiPAP background noise however no significant crackles noted. CARDIOVASCULAR: Regular rate and rhythm, normal S1 and S2 without murmurs, rubs, or gallops. PMI not displaced. ABDOMEN: Difficult to evaluate for organomegaly given his obesity. No bruit. No splenomegaly or hepatomegaly. No abdominal aorta bruit noted. EXTREMITIES: No pitting edema bilaterally, no cyanosis, no clubbing. +2 pulses femoral and pedal pulses bilaterally. MUSCULOSKELETAL: No chest tenderness to palpation. Multiple ecchymosis throughout his body. NEUROLOGIC: Nonfocal. No gross sensory or motor deficits bilateral upper or lower extremities. NAME: THEODORE SON DATE OF : 1950 PROVIDER: CHAD JAIN MD TIME D/T: 10:46 / 11:29 DATE OF ADMISSION: 01/19/2019 DATE OF DISCHARGE: 02/07/2019 DISCHARGE DIAGNOSES: 1. Complete heart block, status post pacemaker placement on 01/24/2019. 2. Ventricular tachycardia which has resolved. 3. Acute on top of chronic hypoxic respiratory failure, felt related to chronic obstructive pulmonary disease. 4. Obstructive sleep apnea, on CPAP. 5. Acute decompensated congestive heart failure which is systolic and diastolic with ejection fraction of 40%. 6. Ambulatory dysfunction. 7. Type 2 diabetes mellitus with peripheral neuropathy and hypoglycemia. 8. Hyponatremia, resolved. 9. Acute kidney injury, resolved. 10. Anemia felt of chronic illness. 11. Klebsiella pneumonia urinary tract infection, status post full course of therapy. 12. Hyperphosphatemia, resolved. 13. Persistent atrial fibrillation. At this point in time on anticoagulation due to bleeding around his pacemaker. 14. Postoperative hematoma. 15. Hyperlipidemia. 16. Gastroesophageal reflux disease. 17. Morbid obesity. Body mass index of almost 40. 18. Possible adverse reaction to Depakote which was discontinued. HISTORY OF PRESENT ILLNESS AND HOSPITALIZATION COURSE: This is a very delightful 68-year-old male patient with past medical history significant for atrial fibrillation, morbid obesity, and diabetes mellitus requiring insulin who initially presented to [facility] not feeling well. The patient was diagnosed with significant bradycardia and complete heart block, he was having acute kidney injury and hyperkalemia and he was transferred to our facility, the patient was initially admitted to the ICU, he was hydrated and he was placed on intravenous steroids. The patient was seen by Cardiology and he had a biventricular pacemaker placed on 01/24 that was complicated with some hematoma at the incision site. His anticoagulation was discontinued. The patient was kept only on aspirin for now. His hematoma has indeed improved. He was also diagnosed with UTI with Klebsiella pneumonia that was treated with IV antibiotics. The patient is afebrile. His WBC has normalized. He also had encephalopathy which felt related to multiple factors including CO2 narcosis, hypoglycemia as well as medications. We did adjust his diabetes regimen, I think we will discharge him home on 20 of Lantus, his dose to be adjusted accordingly as outpatient. The patient also had a chest x-ray that showed no evidence of pneumothorax or large effusions. He was placed on Lasix 20 mg p.o. b.i.d. Again, his dose can be adjusted accordingly as an outpatient. The patient again had improvement of his mental status, his blood sugar has been under control, indeed, I needed to change his Lantus to 20 units subcutaneously. I have made a lot of changes of his medications, Depakote was discontinued. His trazodone was discontinued. I do not think he needs any pain medications other than Tylenol for now. The patient has done well over the last 24 hours. He has been up and communicating pretty well, he needs to sleep with the BiPAP. He is on oxygen at home. Initially recommended placement to SNF however, his family insisted to take him home. I will arrange for home health. The patient has some equipment, he has BiPAP and he has oxygen. He has a very supportive family. I think he is stable for discharge today. He was up in his bed, mentating well this morning. He had a pretty good night. Eating well. No chest pain. No swelling. His vital signs and labs are stable. PHYSICAL EXAMINATION: GENERAL: He is alert, awake, mentating well with no apparent distress. VITAL SIGNS: Temperature was 36.5 degrees, pulse 61, respiratory rate 18, blood pressure was 146/51. HEENT: Atraumatic. Oral mucosa is moist. NECK: Supple. No goiter. CHEST: Clear. HEART: Regular, not tachycardic. ABDOMEN: Soft, nontender. Bowel sounds are active. MUSCULOSKELETAL EXAM: Good pulses. No clubbing or cyanosis. NEURO EXAM: Mentating well, no slurred speech or facial asymmetry. The patient has debility. No tremors or focal deficits. LABORATORY DATA: WBC was 5.8, hemoglobin 9.6, platelet count 149,000. Sodium 140, potassium 4.1, BUN of 24, creatinine of 0.88. Phosphorus was 3.5 with magnesium of 1.8. Blood sugar 220 and 240. Blood cultures negative. DIAGNOSTIC DATA: Echocardiogram on 01/20 showed ejection fraction of 40%- 45% with some global hypokinesia. The patient has trace mitral regurgitation. CONSULTS: 1. Physical therapy. 2. Cardiology service. 3. EP service. DISPOSITION: Home today with home health. MEDICATIONS: Please refer to the medication reconciliation form that was on the chart. CODE STATUS: The patient is DNR that will be honored. CONDITION ON DISCHARGE: Stable. DIET: Cardiac/1800 ADA. FOLLOW-UP: 1. Follow up with Dr. Berry from Cardiology in 1 week, he has an appointment on the 18 of February. We need to discuss and decide about his Eliquis that was held during this admission due to hematoma at his procedure site. 2. Follow up with his PCP in a week. 3. Call 911 for any emergency or unusual symptoms. 4. Check his blood sugar at least twice a day, document the readings for further adjustment of the new regimen as outpatient. 5. I did talk to the patient at length about his condition, his was at bedside. She is his main caregiver. I think he is stable for discharge. Outpatient general cardiology visit on AUG 05: 69-year-old male with history of obesity, hypertension, hyperlipidemia, diabetes, sleep apnea, COPD, heart failure with reduced ejection fraction, lymphoma and atrial fibrillation who returns today for follow-up on heart failure. He has had multiple hospitalizations for heart failure as described below. The patient has done well since the prior visit and lost 4 more pounds. He feels much better. There has been no more interim hospitalizations. He was admitted to [facility] 01/19/19 through 02/07/19 after he presented to [facility] not feeling well and was found to be in complete heart block therefore he underwent pacemaker placement on 01/24/[address] Christian. During that hospitalization he was found also to have ventricular t achycardia, decompensated heart failure, acute kidney injury. His ejection fraction was 40%. He also developed pocket hematoma at the site of the pacemaker reason why his Eliquis was held. His device interrogation in June 2019 demonstrated recurrence of his atrial fibrillation. Hospitalizations: -07/07/16 through 07/11/16 at [facility]: Decompensated heart failure. -Unknown date at [facility]: Severe infection in the scrotal area requiring surgery. -June 2018 at [facility]: Respiratory failure, anemia and paroxysmal atrial fibrillation after he was found obtunded at home. He required intubation. -01/19/19 through 02/07/19: [facility] for complete heart block, ventricular tachycardia, acute on chronic hypoxemic respiratory failure secondary to COPD, acute decompensated heart failure. Reason For Visit: VENTRICULAR TACHYCARDIA, ACUTE ON CHRONIC Physical Exam Vital Signs: Temp Pulse Resp BP Pulse Ox 98 F 81 19 126/54 H 96 12/07/19 04:00 12/07/19 04:00 12/07/19 04:30 12/07/19 04:00 12/07/19 04:30 Intake & Output 12/05/19 12/06/19 12/07/19 06:59 06:59 06:59 Intake Total 1373 1590 1397 Output Total 1625 1275 Balance 1373 -35 122 Weight 121.9 kg 130.9 kg Results Laboratory Results: 12/05/19 12/06/19 12/06/19 09:38 06:13 06:13 WBC 7.2 RBC 2.73 L Hgb 7.7 L Hct 23.1 L MCV 85 MCH 28.2 MCHC 33.3 RDW 17.5 H Plt Count 164 Seg Neutrophils % 76.4 Sodium 143.4 Potassium 3.9 Chloride 103 Carbon Dioxide 33 H Anion Gap 7 BUN 87 H Creatinine 1.92 H Est GFR ( Amer) 42 L Glucose 44 L Calcium 8.1 L Total Bilirubin 1.2 AST 31 Alkaline Phosphatase 215 H Total Protein 5.4 L Albumin 3.3 L Blood Type O NEGATIVE Antibody Screen NEGATIVE 11/27/19 11/27/19 11/27/19 14:30 14:30 14:30 Creatine Kinase 93 CK-MB (CK-2) 2.99 Troponin I 0.044 NT-Pro-B Natriuret Pep 4090 H 10/11/20 10/12/20 10/12/20 20:00 02:10 08:23 Creatine Kinase CK-MB (CK-2) Troponin I 0.473 0.681 0.594 NT-Pro-B Natriuret Pep Impressions: Chest X-Ray 12/04/19 00:00 IMPRESSION: Low lung volumes. Otherwise stable radiographic appearance of the chest demonstrating cardiomegaly with mild central vascular congestion. 12/07/19 06:02 12/07/19 06:02 MCV 85 fl (80-97) 12/07/19 06:02 MCH 28.0 pg (27.0-33.4) 12/07/19 06:02 MCHC 33.2 g/dL (32.0-36.0) 12/07/19 06:02 RDW 17.7 % (11.5-14.0) H 12/07/19 06:02 Seg Neutrophils % Not Reportable 12/07/19 06:02 Carbonic Acid 2.11 mmol/L (1.05-1.35) H 12/04/19 12:00 HCO3/H2CO3 Ratio 15:1 12/04/19 12:00 ABG pH 7.30 (7.35-7.45) L 12/04/19 12:00 ABG pCO2 70.2 mmHg (35-45) H* 12/04/19 12:00 ABG pO2 125.9 mmHg (80-100) H 12/04/19 12:00 ABG HCO3 33.4 mmol/L (20-24) H 12/04/19 12:00 ABG O2 Saturation 98.0 % (94-98) 12/04/19 12:00 ABG Base Excess 5.9 mmol/L 12/04/19 12:00 VBG pH 7.30 (7.30-7.42) 11/27/19 16:18 VBG pCO2 71.5 mmHg (35-63) H* 11/27/19 16:18 VBG HCO3 34.0 mmol/L (20-32) H 11/27/19 16:18 VBG Base Excess 5.9 mmol/L 11/27/19 16:18 FiO2 45% 12/04/19 12:00 Chloride 104 mmol/L (98-107) 12/07/19 06:02 Carbon Dioxide 33 mmol/L (22-30) H 12/07/19 06:02 Anion Gap 10 (5-19) 12/07/19 06:02 Est GFR ( Amer) 47 (>60) L 12/07/19 06:02 Glucose 42 mg/dL (75-110) L 12/07/19 06:02 Calcium 8.2 mg/dL (8.4-10.2) L 12/07/19 06:02 Magnesium 3.1 mg/dL (1.6-2.3) H 12/07/19 06:02 Total Bilirubin 1.2 mg/dL (0.2-1.3) 12/07/19 06:02 AST 32 U/L (17-59) 12/07/19 06:02 Alkaline Phosphatase 240 U/L (38-126) H 12/07/19 06:02 Ammonia 39.7 umol/L (9-33) H 12/03/19 11:33 Total Protein 5.6 g/dL (6.3-8.2) L 12/07/19 06:02 Albumin 3.5 g/dL (3.5-5.0) 12/07/19 06:02 TSH 2.09 uIU/mL (0.47-4.68) 11/28/19 08:23 Free T4 1.18 ng/dL (0.78-2.19) 11/28/19 08:23 Urine Color YELLOW 11/27/19 16:00 Urine Appearance CLEAR 11/27/19 16:00 Urine pH 5.0 (5.0-9.0) 11/27/19 16:00 Ur Specific [place] 1.016 11/27/19 16:00 Urine Protein 30 mg/dL (NEGATIVE) H 11/27/19 16:00 Urine Glucose (UA) NEGATIVE mg/dL (NEGATIVE) 11/27/19 16:00 Urine Ketones NEGATIVE mg/dL (NEGATIVE) 11/27/19 16:00 Urine Blood NEGATIVE (NEGATIVE) 11/27/19 16:00 Urine Nitrite NEGATIVE (NEGATIVE) 11/27/19 16:00 Ur Leukocyte Esterase NEGATIVE (NEGATIVE) 11/27/19 16:00 Urine WBC (Auto) 1 /HPF 11/27/19 16:00 Urine RBC (Auto) 0 /HPF 11/27/19 16:00 Stool Occult Blood POSITIVE (NEGATIVE) 12/05/19 05:50 Blood Type O NEGATIVE 12/05/19 09:38 Antibody Screen NEGATIVE 12/05/19 09:38 11/27/19 11/27/19 11/27/19 14:30 14:30 14:30 Creatine Kinase 93 CK-MB (CK-2) 2.99 Troponin I 0.044 NT-Pro-B Natriuret Pep 4090 H 11/27/19 11/28/19 11/28/19 20:00 02:10 08:23 Creatine Kinase CK-MB (CK-2) Troponin I 0.473 0.681 0.594 NT-Pro-B Natriuret Pep Current Medication List Generic Name Dose Route Start Last Admin Trade Name Freq PRN Reason Stop Dose Admin Acetaminophen 650 mg 11/27/19 18:10 12/05/19 18:06 Tylenol 325 Mg Tablet PO 12/27/19 18:09 650 mg Q4HP PRN Administration FOR PAIN Albuterol/Ipratropium 3 ml 12/02/19 08:46 Duoneb 3 Ml Ampul NEB 01/01/20 08:45 RTQ4HP PRN SHORTNESS OF BREATH Amiodarone HCl 400 mg 11/28/19 17:00 12/07/19 05:28 Cordarone 200 Mg Tablet PO 12/28/19 16:59 400 mg Q12A EMIL Administration Apixaban 5 mg 12/07/19 10:00 Eliquis 5 Mg Tablet PO 01/06/20 09:59 BID EMIL Atorvastatin Calcium 80 mg 12/06/19 22:00 12/06/19 21:59 Lipitor 80 Mg Tablet PO 01/05/20 21:59 80 mg QHS EMIL Administration Buspirone HCl 10 mg 11/28/19 18:00 12/06/19 18:13 Buspar 10 Mg Tablet PO 12/28/19 17:59 10 mg QPM EMIL Administration Carvedilol 3.125 mg 11/28/19 22:00 12/06/19 21:59 Coreg 3.125 Mg Tablet PO 12/28/19 21:59 3.125 mg Q12 EMIL Administration Cyclosporine 1 drop 12/02/19 14:00 12/06/19 21:59 Restasis 0.05% Oph Emulsion Pf 0.4 Ml OU 01/01/20 13:59 1 drop Q12 EMIL Administration Dextrose 12.5 gm 11/27/19 18:22 12/04/19 07:31 Dextrose Inj 50% Syringe (25 Gm/50 Ml) IV 12/27/19 18:21 12.5 gm PRN PRN Administration FOR BG 50-69 IN ALERT PATIENT Protocol Dextrose 25 gm 11/27/19 18:22 Dextrose Inj 50% Syringe (25 Gm/50 Ml) IV 12/27/19 18:21 PRN PRN PER PROTOCOL Protocol Erythromycin 1 applic 12/07/19 00:00 12/07/19 05:28 E-Mycin 0.5% Oph Ointment 3.5 Gm OU 12/14/19 00:00 1 applic Q6 EMIL Administration Furosemide 10 mg 12/07/19 08:32 Lasix Inj/Pf 20 Mg/2 Ml Sdv IV 12/08/19 08:31 .AFTER FIRST UNIT PRN THIS MED IS NOT "PRN" Glucagon 1 mg 11/27/19 18:22 12/07/19 07:37 Glucagen Inj 1 Mg Vial IM 12/27/19 18:21 1 mg PRN PRN Administration Evaluate for BG < 70 Protocol Glucose 15 gm 11/27/19 18:22 Glutose 40% Gel 15 Gm Tube PO 12/27/19 18:21 PRN PRN FOR BG 50-69 IN ALERT PATIENT Protocol Glucose 30 gm 11/27/19 18:22 Glutose 40% Gel 15 Gm Tube PO 12/27/19 18:21 PRN PRN FOR BG < 50 IN ALERT PATIENT Protocol Sodium Chloride 250 mls @ 30 mls/hr 12/06/19 17:51 Nacl 0.9% 250 Ml Iv Soln IV 12/07/19 17:50 .DURING TRANSFUSION PRN THIS MED IS NOT "PRN" Sodium Chloride 250 mls @ 0 mls/hr 12/06/19 17:51 Nacl 0.9% 250 Ml Iv Soln IV 12/07/19 17:50 CONTINUOUS PRN AFTER EACH UNIT As Directed Dextrose/Sodium Chloride 1,000 mls @ 100 mls/hr 12/07/19 08:31 D5-1/2ns 1000 Ml Iv Soln IV 01/06/20 08:30 CONTINUOUS PRN THIS MED IS NOT "PRN" Sodium Chloride 250 mls @ 30 mls/hr 12/07/19 08:32 Nacl 0.9% 250 Ml Iv Soln IV 12/08/19 08:31 .DURING TRANSFUSION PRN THIS MED IS NOT "PRN" Sodium Chloride 250 mls @ 0 mls/hr 12/07/19 08:32 Nacl 0.9% 250 Ml Iv Soln IV 12/08/19 08:31 CONTINUOUS PRN AFTER EACH UNIT As Directed Insulin Glargine 40 unit 11/27/19 22:00 12/06/19 21:55 Lantus Insulin 100 Unit/1 Ml 10 Ml SUBCUT 12/27/19 21:59 Not Given QHS [facility] Insulin Human Lispro 0 - 12 unit 11/27/19 22:00 12/07/19 10:32 Humalog Insulin 100 Unit/1 Ml 3 Ml Vial SUBCUT 12/27/19 21:59 Not Given ACHS [facility] Protocol Melatonin 10 mg 11/30/19 20:18 12/02/19 23:02 Melatonin 5 Mg Tablet PO 12/30/19 20:17 10 mg HSP PRN Administration FOR SLEEP Nicotine 1 each 11/27/19 18:46 11/27/19 21:18 Nicoderm 21 Mg/24 Hr Transderm Patch TD 12/27/19 18:45 1 each DAILYP PRN Administration nicotine craving Ondansetron HCl 4 mg 11/28/19 14:00 Zofran Inj/Pf 4 Mg/2 Ml Sdv IV 12/27/19 18:09 Q8HP PRN FOR NAUSEA/VOMITING Pantoprazole Sodium 40 mg 12/05/19 15:15 12/06/19 21:59 Protonix Iv Inj 40 Mg Vial IV 12/08/19 15:14 40 mg Q12 EMIL Administration Sacubitril/Valsartan 1 tab 11/29/19 10:00 12/06/19 18:13 Entresto 24 Mg/26 Mg Tablet PO 12/29/19 09:59 1 tab BID EMIL Administration Discontinued Medications Generic Name Dose Route Start Last Admin Trade Name Freq PRN Reason Stop Dose Admin Acetazolamide 500 mg 11/28/19 22:00 12/01/19 21:13 Diamox 250 Mg Tab PO 12/28/19 21:59 500 mg QHS EMIL Administration Albuterol/Ipratropium Confirm 12/02/19 08:50 12/02/19 17:43 Duoneb 3 Ml Ampul Administered 12/02/19 08:51 Not Given Dose 3 ml NEB .STK-MED ONE Amiodarone HCl Confirm 11/27/19 15:14 11/27/19 15:34 Cordarone Inj 150 Mg/3 Ml Vial Administered 11/27/19 15:15 Not Given Dose 150 mg IV .STK-MED ONE Amiodarone HCl Confirm 11/27/19 15:19 11/27/19 15:34 Cordarone Inj 150 Mg/3 Ml Vial Administered 11/27/19 15:20 Not Given Dose 150 mg IV .STK-MED ONE Apixaban 5 mg 11/27/19 22:00 11/28/19 09:41 Eliquis 5 Mg Tablet PO 12/27/19 21:59 5 mg Q12 EMIL Administration Apixaban 5 mg 11/28/19 18:00 12/05/19 10:00 Eliquis 5 Mg Tablet PO 12/28/19 17:59 Not Given BID EMIL Aspirin 81 mg 11/27/19 18:30 12/05/19 10:00 Aspirin 81 Mg Chewable Tablet PO 12/27/19 18:29 81 mg DAILY EMIL Administration Aspirin 324 mg 11/27/19 21:46 11/27/19 22:11 Aspirin 81 Mg Chewable Tablet PO 11/27/19 21:47 324 mg NOW ONE Administration Aspirin Confirm 11/27/19 22:12 11/27/19 23:06 Aspirin 81 Mg Chewable Tablet Administered 11/27/19 22:13 Not Given Dose 81 mg .ROUTE .STK-MED ONE Atorvastatin Calcium 80 mg 11/28/19 10:00 12/06/19 12:58 Lipitor 80 Mg Tablet PO 12/28/19 09:59 Not Given DAILY EMIL Atorvastatin Calcium 80 mg 11/27/19 18:45 11/27/19 18:55 Lipitor 80 Mg Tablet PO 11/27/19 18:46 80 mg NOW ONE Administration Buspirone HCl 10 mg 11/27/19 18:45 11/27/19 18:55 Buspar 10 Mg Tablet PO 11/27/19 18:46 10 mg NOW ONE Administration Carvedilol 6.25 mg 11/28/19 10:00 Coreg 6.25 Mg Tablet PO 12/28/19 09:59 Q12 [facility] Carvedilol 6.25 mg 11/27/19 18:45 11/27/19 18:56 Coreg 6.25 Mg Tablet PO 11/27/19 18:46 6.25 mg NOW ONE Administration Carvedilol 3.125 mg 11/28/19 10:00 11/28/19 18:28 Coreg 3.125 Mg Tablet PO 12/28/19 09:59 Not Given Q12 EMIL Enoxaparin Sodium 130 mg 11/27/19 23:00 Lovenox Inj 150 Mg/1 Ml Disp.Syrin SUBCUT 12/27/19 22:59 Q12 EMIL Enoxaparin Sodium 130 mg 11/28/19 10:00 Lovenox Inj 150 Mg/1 Ml Disp.Syrin SUBCUT 12/28/19 09:59 Q12 EMIL Ephedrine Sulfate Confirm 12/07/19 07:51 Ephedrine Sulfate Inj 50 Mg/Ml Ampule Administered 12/07/19 07:52 Dose 50 mg .ROUTE .STK-MED ONE Furosemide 40 mg 11/27/19 14:59 11/27/19 15:08 Lasix Inj/Pf 40 Mg/4 Ml Sdv IV 11/27/19 15:00 40 mg NOW ONE Administration Furosemide 80 mg 11/27/19 22:00 11/28/19 09:32 Lasix Inj/Pf 100 Mg/10 Ml Sdv IV 12/27/19 21:59 80 mg Q12H EMIL Administration Furosemide 80 mg 11/28/19 22:00 11/29/19 21:13 Lasix Inj/Pf 40 Mg/4 Ml Sdv IV 12/28/19 21:59 Not Given Q12 EMIL Furosemide 40 mg 11/30/19 14:00 11/30/19 17:15 Lasix Inj/Pf 40 Mg/4 Ml Sdv IV 12/30/19 13:59 Not Given BID EMIL Furosemide 40 mg 12/04/19 07:55 Lasix Inj/Pf 40 Mg/4 Ml Sdv IV 12/04/19 07:56 NOW ONE Furosemide 40 mg 12/04/19 12:00 12/04/19 12:08 Lasix Inj/Pf 40 Mg/4 Ml Sdv IV 12/04/19 12:01 40 mg NOW ONE Administration Amiodarone HCl 900 mg/ 500 mls @ 0 mls/hr 11/27/19 14:54 11/28/19 18:27 Dextrose IV 11/30/19 14:53 Infused CONTINUOUS PRN Titration THIS MED IS NOT "PRN" Protocol Per Protocol Lactated Ringer's 1,000 mls @ 80 mls/hr 12/02/19 12:27 12/02/19 12:53 Lactated Ringers 1000 Ml Iv Soln IV 80 mls/hr CONTINUOUS PRN Administration THIS MED IS NOT "PRN" Sodium Chloride 1,000 mls @ 100 mls/hr 12/04/19 07:58 12/04/19 17:30 Nacl 0.9% 1000 Ml Iv Soln IV 01/03/20 07:57 Infused CONTINUOUS PRN Infusion THIS MED IS NOT "PRN" Calcium Gluconate 1 gm in 50 mls @ 50 mls/hr 12/04/19 08:30 12/04/19 10:09 Calcium Gluconate Rtu 1 Gm/50 Ml IV 12/04/19 10:29 50 mls/hr Q1H EMIL Administration Sodium Chloride 250 mls @ 30 mls/hr 12/05/19 07:54 Nacl 0.9% 250 Ml Iv Soln IV 12/06/19 07:53 .DURING TRANSFUSION PRN THIS MED IS NOT "PRN" Sodium Chloride 250 mls @ 0 mls/hr 12/05/19 07:54 Nacl 0.9% 250 Ml Iv Soln IV 12/06/19 07:53 CONTINUOUS PRN AFTER EACH UNIT As Directed Sodium Chloride 1,000 mls @ 80 mls/hr 12/05/19 10:25 12/07/19 02:38 Nacl 0.9% 1000 Ml Iv Soln IV 01/04/20 10:24 Infused CONTINUOUS PRN Infusion THIS MED IS NOT "PRN" Potassium Chloride/Water 20 meq in 50 mls @ 25 mls/hr 12/06/19 18:50 12/07/19 02:38 Potassium Chloride Juan Manuel 20 Meq/50 Ml IV 12/06/19 20:49 Infused NOW ONE Infusion Dextrose/Sodium Chloride 1,000 mls @ 100 mls/hr 12/07/19 07:56 D5ns 1000 Ml Iv Soln IV 01/06/20 07:55 CONTINUOUS PRN THIS MED IS NOT "PRN" Influenza Virus Vaccine Quadrival 0.5 ml 12/01/19 08:00 Flulaval Quad Vac 0.5 Ml Syr IM 12/01/19 08:01 .ONCE ONE Insulin Glargine 40 unit 11/27/19 18:38 Lantus (Pyxis) Insulin 100 Unit/1 Ml 10 Ml SUBCUT 11/27/19 23:59 ASDIR PRN Insulin Human Regular Confirm 11/27/19 18:54 11/27/19 19:01 Humulin R (Pyxis) Insulin 100 Unit/Ml 3ml Administered 11/27/19 18:55 Not Given Dose 1 unit .ROUTE .STK-MED ONE Midazolam HCl Confirm 12/07/19 08:31 Versed 2 Mg/2 Ml Inj Administered 12/07/19 08:32 Dose 2 mg .ROUTE .STK-MED ONE Morphine Sulfate 2 mg 11/27/19 14:59 11/27/19 15:07 Morphine 10 Mg/Ml Inj IV 11/27/19 15:00 2 mg NOW ONE Administration Ondansetron HCl 4 mg 11/27/19 18:10 Zofran Inj/Pf 4 Mg/2 Ml Sdv IV 12/27/19 18:09 Q8HP PRN FOR NAUSEA/VOMITING Polyethylene Glycol/Electrolytes 4,000 ml 12/05/19 15:00 12/05/19 15:15 Golytely Solution 4000 Ml PO 12/05/19 15:01 4,000 ml NOW ONE Administration Propofol Confirm 12/07/19 07:51 Diprivan Inj 200 Mg/20 Ml Vial Administered 12/07/19 07:52 Dose 200 mg IV .STK-MED ONE Assessment & Plan - Diagnosis (1) Heart failure with reduced ejection fraction Plan: He is tolerating gentle hydration very well with improving BUN and creatinine. He is not fluid overloaded on exam. He is not on BiPAP and is tolerating room air without the satting. Recommendations: -Continue with current medical management. -We will continue to follow with you. (2) Elevated troponin Is this a current diagnosis for this admission?: Yes Plan: The patient had a mildly elevated troponin which has now down trended. I believe this issue is multifactorial to include ischemic heart disease particular in the setting of VT and decompensated heart failure however cannot completely rule out a degree of just supply/demand mismatch. Unfortunately the patient is not currently a candidate for further cardiovascular assessment given his overall medical condition as well as his renal dysfunction. Recommendations: -Continue with current medical management for now. -We will continue to follow-up with you. (3) Ventricular tachycardia Is this a current diagnosis for this admission?: Yes Plan: Likely secondary to cardiac ischemia. Unfortunately patient is not a candidate for further ischemic assessment at this point. We will continue with current medical management and will consider further ischemic assessment when he improves. (4) Atrial fibrillation Is this a current diagnosis for this admission?: Yes Plan: Well controlled at this point. He is paced. He is not anticoagulated due to his GI bleed. His hemoglobin again decreased and he is currently receiving a blood transfusion. Recommendations: -Continue to hold Eliquis. -We will continue to follow with you. (5) Hypertension Qualifiers: Hypertension type: essential hypertension Qualified Code(s): I10 - Essential (primary) hypertension Is this a current diagnosis for this admission?: Yes Plan: Blood pressure is at goal. We will continue with current medical management.
[2019-12-07] MEDS: APIXABAN 5 MG TABLET PO SCH ×2 (13:16→18:46)
[2019-12-07] MEDS: CARVEDILOL 3.125 MG TABLET PO SCH ×2 (13:16→21:52)
[2019-12-07] MEDS: PANTOPRAZOLE SODIUM 40 MG VIAL IV SCH ×2 (13:17→21:52)
[2019-12-07] MEDS: SACUBITRIL/VALSARTAN 24 MG/26 MG TABLET PO SCH ×2 (13:17→18:46)
[2019-12-07] MEDS: CYCLOSPORINE 0.05% OPH EMULSIO 0.4 ML DROPERETTE OU SCH ×2 (13:17→21:51)
[2019-12-07] MEDS: BUSPIRONE HCL 10 MG TABLET PO SCH (18:46)
[2019-12-07] MEDS ORDERED: RINGERS SOLUTION,LACTATED 1,000 ML IV PRN (19:20)
--- NOTE | 2019-12-07 19:36 | PDOC PROGRESS REPORT ---
Subjective Progress Note for:: 12/07/19 Subjective:: THEODORE SON is a 69 year old male with PMH of HTN, HLD, morbid obesity (BMI 43), atrial fibrillation on AC, CHB s/p pacemaker, HFrEF (40%), ventricular tachycardia, PAD, Follicular Lymphoma, insulin dependent DM2, and PATEL on BIPAP who was admitted 11/27/2019 with ventricular tachycardia and acute on chronic systolic CHF Patient was seen on afternoon rounds. He was found resting in bed, comfortably, on BiPAP. His was present. Patient was sleeping but woke easily when I said his name. He was oriented to self but otherwise confused and agitated. Did have EGD/Colonscopy today. Unfortunately, has also lost IV access and has had numerous attempts at restart; including with u/s guidance and attempted femoral line placement by Dr. Pritchard. Patient's states he is fatigued and therefore irritable. They have no questions or concerns at this time. No other concerns per nursing. Reason For Visit: VENTRICULAR TACHYCARDIA, ACUTE ON CHRONIC Physical Exam Vital Signs: Temp Pulse Resp BP Pulse Ox 98.7 F 80 24 H 131/53 H 95 12/07/19 12:02 12/07/19 14:00 12/07/19 12:02 12/07/19 12:02 12/07/19 12:02 Intake & Output 12/06/19 12/07/19 12/08/19 06:59 06:59 06:59 Intake Total 1590 1397 400 Output Total 1625 1775 150 Balance -35 -378 250 Weight 130.9 kg 129.7 kg General appearance: PRESENT: no acute distress, hard of hearing, morbidly obese, well-developed, well-nourished, other - Chronically ill-appearing Head exam: PRESENT: atraumatic, normocephalic Eye exam: PRESENT: conjunctiva pink, EOMI, PERRLA. ABSENT: scleral icterus Mouth exam: PRESENT: moist, tongue midline Teeth exam: PRESENT: poor dentation Respiratory exam: PRESENT: clear to auscultation ernesto, decreased breath sounds - Shallow respirations; further limited by body habitus, positioning, and patie nt's ability to participate in exam, symmetrical, unlabored, other - BiPAP. ABSENT: rales, rhonchi, wheezes Cardiovascular exam: PRESENT: irregular rhythm, +S1, +S2. ABSENT: diastolic murmur, rubs, systolic murmur Pulses: PRESENT: normal dorsalis pedis pul Vascular exam: PRESENT: normal capillary refill GI/Abdominal exam: PRESENT: normal bowel sounds, soft. ABSENT: distended, guarding, mass, organolmegaly, rebound, tenderness Rectal exam: PRESENT: deferred Gentrourinary exam: PRESENT: indwelling catheter Extremities exam: PRESENT: full ROM. ABSENT: calf tenderness, clubbing, pedal edema Neurological exam: PRESENT: alert, awake, oriented to person, CN II-XII grossly intact, other - Intermittent confusion; slightly increased from yesterday. ABSENT: motor sensory deficit Psychiatric exam: PRESENT: agitated, normal mood. ABSENT: homicidal ideation, suicidal ideation Skin exam: PRESENT: dry, intact, warm. ABSENT: cyanosis, rash Results Laboratory Results: 12/07/19 06:02 12/07/19 06:02 12/05/19 12/07/19 12/07/19 09:38 06:02 06:02 WBC 9.3 RBC 2.71 L Hgb 7.6 L Hct 22.9 L MCV 85 MCH 28.0 MCHC 33.2 RDW 17.7 H Plt Count 163 Seg Neutrophils % Not Reportable Sodium 146.6 H Potassium 3.7 Chloride 104 Carbon Dioxide 33 H Anion Gap 10 BUN 70 H Creatinine 1.75 H Est GFR ( Amer) 47 L Glucose 42 L Calcium 8.2 L Magnesium 3.1 H Total Bilirubin 1.2 AST 32 Alkaline Phosphatase 240 H Total Protein 5.6 L Albumin 3.5 Blood Type O NEGATIVE Antibody Screen NEGATIVE 11/27/19 11/27/19 11/27/19 14:30 14:30 14:30 Creatine Kinase 93 CK-MB (CK-2) 2.99 Troponin I 0.044 NT-Pro-B Natriuret Pep 4090 H 11/27/19 11/28/19 11/28/19 20:00 02:10 08:23 Creatine Kinase CK-MB (CK-2) Troponin I 0.473 0.681 0.594 NT-Pro-B Natriuret Pep Impressions: Chest X-Ray 12/04/19 00:00 IMPRESSION: Low lung volumes. Otherwise stable radiographic appearance of the chest demonstrating cardiomegaly with mild central vascular congestion. Assessment and Plan - Diagnosis (1) GI bleed Qualifiers: Is this a current diagnosis for this admission?: Yes Plan: Surgery is consulted; underwent EGD and colonoscopy today. Colonoscopy was essentially unremarkable. EGD revealed mild gastritis. Spoke with Dr. Glynn; recommends continued PPI. He does not object to resumption of anticoagulation at this time. Continue IV Protonix twice daily (2) Acute blood loss anemia Is this a current diagnosis for this admission?: Yes Plan: Secondary to GI bleed. Patient has received 2 PRBC; a third unit is ordered. EDG and colonoscopy results as above. Continue IV Protonix. Follow-up CBC. (3) Acute on chronic systolic CHF (congestive heart failure) Is this a current diagnosis for this admission?: Yes Plan: - repeat echo EF <35%, LV moderately dilated, severe global hypokinesis - has a pacemaker; would benefit from AICD as the patient has had episodes of ventricular tachycardia - BNP 4090 - trop peaked at 0.68 trended down to 0.59 Limited echo requested to assess IVC diameter/compressibility to assess fluid volume status. - started on Entresto with holding parameters - continue carvedilol - Holding the spironolactone secondary to worsening renal function. -Resume Eliquis today. - started on IV Fluids for worsening kidney function and GI bleed. Will closely follow his volume status - daily weights 135.6kg -> 130 kg - strict IO - fluid and sodium restriction - cardio following. Per Dr. Berry, with his deteriorating kidney function a LHC is indefinitely placed on hold. (4) JOHANNY (acute kidney injury) Is this a current diagnosis for this admission?: Yes Plan: Slight improvement today; Crea 1.72>1.94>1.97>2.3>2.3>2.32-> 1.92-> 1.75. Kelly l renal function 2019. - JOHANNY on top of CKD, or cardiorenal Nephrology is consulted; appreciate their evaluation recommendations. Avoid nephrotoxic medications as able; renally dosed where appropriate. Undertake evaluation of GI bleeding is this may be contributing to the elevated BUN. Continue gentle IV fluid hydration. Arzate catheter for strict I&O's. Optimize cardiac output. Follow-up chemistries. (5) Hypercapnic respiratory failure Qualifiers: Chronicity: acute on chronic Qualified Code(s): J96.22 - Acute and chronic respiratory failure with hypercapnia Is this a current diagnosis for this admission?: Yes Plan: - ABG pH 7.3, pCO2 70, pO2 125.9, bicarb 33.4 - placed back on BIPAP - advised nurse to keep him on BIPAP Patient's endorses [id number] history (1.5 packs x ~40 years). Known history of COPD. 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 (6) NSTEMI (non-ST elevated myocardial infarction) Is this a current diagnosis for this admission?: Yes Plan: No evidence of ischemic changes on EKG and currently CP free. Likely demand mismatch ischemia. However, given VT, he will absolutely need an ischemic work up with [facility]. Renal function is currently prohibiting this. - Trop peaked at 0.68 decreased to 0.59 - continue aspirin, carvedilol, statin Cardiology is consulted. Primary management per Dr. Berry. (7) PATEL (obstructive sleep apnea) Is this a current diagnosis for this admission?: Yes Plan: - on BIPAP (8) Physical deconditioning Is this a current diagnosis for this admission?: Yes Plan: - PT/OT Discharge planning consulted (9) Ventricular tachycardia Is this a current diagnosis for this admission?: Yes Plan: - has a Pacemaker, would need to be updated to an ICD - on PO amiodarone - continue carvedilol - cardio following. Primary management per cardiology. Not a candidate for further ischemic assessment at this point. Continue medical management. - keep K>4, Mg >2 (10) Atrial fibrillation Is this a current diagnosis for this admission?: Yes Plan: Resume Eliquis today. - on amio and carvedilol Cardiology consulted. Continue monitor on telemetry. (11) Conjunctivitis Qualifiers: Conjunctivitis type: blepharoconjunctivitis Laterality: bilateral Is this a current diagnosis for this admission?: Yes Plan: Start erythromycin ointment (12) Diabetes mellitus type 2 in obese Is this a current diagnosis for this admission?: Yes Plan: Continue home Lantus at half home dose of 40 units HS - SSI ACHS - carb controlled diet (13) Tobacco abuse Is this a current diagnosis for this admission?: Yes Plan: - encourage cessation - nicotine patch (14) Morbid obesity with BMI of 40.0-44.9, adult Is this a current diagnosis for this admission?: Yes Plan: - encouraged weight loss (15) Dry eyes, bilateral Is this a current diagnosis for this admission?: Yes Plan: - due to air leak from bipap - prescribed lubricant eye drops - Time Time Spent with patient: 35 or more minutes Medications reviewed and adjusted accordingly: Yes Anticipated Discharge Disposition: Home with Home Health Anticipated Discharge Timeframe: undetermined
[2019-12-07] MEDS: INSULIN GLARGINE,HUM.REC.ANLOG 1,000 UNIT/10 ML VIAL SUBCUT SCH (21:45)
[2019-12-07] MEDS: ATORVASTATIN CALCIUM 80 MG TABLET PO SCH (21:52)
[2019-12-08] MEDS: ERYTHROMYCIN 0.5% OPH OINTMENT 3.5 GM TUBE OU SCH ×4 (03:46→17:10)
[2019-12-08] MEDS: AMIODARONE HCL 200 MG TABLET PO SCH ×2 (06:14→17:10)
[2019-12-08] MEDS: INSULIN LISPRO 100 UNIT/ML 3 ML VIAL SUBCUT SCH ×4 (08:31→22:28)
[2019-12-08] MEDS: CARVEDILOL 3.125 MG TABLET PO SCH ×2 (09:12→22:29)
[2019-12-08] MEDS: SACUBITRIL/VALSARTAN 24 MG/26 MG TABLET PO SCH ×2 (09:12→17:10)
[2019-12-08] MEDS: BUSPIRONE HCL 10 MG TABLET PO SCH (09:12)
[2019-12-08] MEDS: CYCLOSPORINE 0.05% OPH EMULSIO 0.4 ML DROPERETTE OU SCH ×2 (09:12→22:29)
[2019-12-08] MEDS: APIXABAN 5 MG TABLET PO SCH ×2 (09:12→17:09)
[2019-12-08] MEDS: PANTOPRAZOLE SODIUM 40 MG VIAL IV SCH (09:12)
--- NOTE | 2019-12-08 09:28 | PDOC PROGRESS REPORT ---
Subjective Progress Note for:: 12/08/19 Subjective:: THEODORE SON is a 69 year old male with history of obesity, hypertension, hyperlipidemia, diabetes, sleep apnea, COPD, heart failure with reduced ejection fraction, lymphoma and atrial fibrillation who is consulted to our service for further evaluation of heart failure. He has had multiple hospitalizations for heart failure in the recent past the most recent of which was at [facility] 01/19/19 through 02/07/19 after he presented to [facility] not feeling well and was found to be in complete heart block therefore he underwent pacemaker placement on 01/24/[address] Christian. During that hospitalization he was found also to have ventricular tachycardia, decompensated heart failure, acute kidney injury. His ejection fraction was 40%. He also developed pocket hematoma at the site of the pacemaker reason why his Eliquis was held. His device interrogation in June 2019 demonstrated recurrence of his atrial fibrillation.he had been in his usual state of health until the day of admission when he called EMS due to pressure-like chest pain associated with nausea. EMS found the patient in ventricular tachycardia which did not respond to 2 doses of adenosine followed by 150 mg of amiodarone with resolution of the rhythm. He had an uneventful night and without further episodes of ventricular tachycardia. He is on BiPAP and easily arousable. He appears to be uncomfortable in bed however denies chest pain, shortness of breath, palpitations, dizziness or lightheadedness. His most recent pacemaker interrogation in October 2019 demonstrated atrial flutter with VT of unknown duration. He has received only 1 dose of Lasix at 2200 last night but his intake and output has not been reported yet this morning. 12/08/2019: The patient had an uneventful night. He underwent EGD and colonoscopy only revealing mild gastritis without evidence of active bleeding, his colonoscopy was normal. He is more awake this morning and is able to answer questions in short sentences. He does appear mildly short of breath when he is not on BiPAP. There has been no more episodes of GI bleeding. His fluid balance is currently +4 L. Of note, his telemetry shows a paced rhythm without recurrence of VT. Physical exam on 12/08/2019: GENERAL: Appears mildly short of breath, follows commands. Periorbital edema is noted. He looks more comfortable today in bed. Disheveled and morbidly obese. HEENT: Normocephalic, atraumatic. Pupils equal. Sclerae anicteric. Oropharynx is moist. NECK: Difficult to evaluate for JVD due to his body habitus. No carotid bruits. LUNGS: Difficult to assess due to his body habitus and positioning in bed however no significant rales or crackles noted. CARDIOVASCULAR: Regular rate and rhythm, normal S1 and S2 without murmurs, rubs, or gallops. PMI not displaced. ABDOMEN: Difficult to evaluate for organomegaly given his obesity. No bruit. No splenomegaly or hepatomegaly. No abdominal aorta bruit noted. EXTREMITIES: No gross pitting edema bilaterally, no cyanosis, no clubbing. +2 pulses femoral and pedal pulses bilaterally. MUSCULOSKELETAL: No chest tenderness to palpation. Multiple ecchymosis throughout his body. NEUROLOGIC: Nonfocal. No gross sensory or motor deficits bilateral upper or lower extremities. NAME: THEODORE SON DATE OF : 1950 PROVIDER: CHAD JAIN MD TIME D/T: 10:46 / 11:29 DATE OF ADMISSION: 01/19/2019 DATE OF DISCHARGE: 02/07/2019 DISCHARGE DIAGNOSES: 1. Complete heart block, status post pacemaker placement on 01/24/2019. 2. Ventricular tachycardia which has resolved. 3. Acute on top of chronic hypoxic respiratory failure, felt related to chronic obstructive pulmonary disease. 4. Obstructive sleep apnea, on CPAP. 5. Acute decompensated congestive heart failure which is systolic and diastolic with ejection fraction of 40%. 6. Ambulatory dysfunction. 7. Type 2 diabetes mellitus with peripheral neuropathy and hypoglycemia. 8. Hyponatremia, resolved. 9. Acute kidney injury, resolved. 10. Anemia felt of chronic illness. 11. Klebsiella pneumonia urinary tract infection, status post full course of therapy. 12. Hyperphosphatemia, resolved. 13. Persistent atrial fibrillation. At this point in time on anticoagulation due to bleeding around his pacemaker. 14. Postoperative hematoma. 15. Hyperlipidemia. 16. Gastroesophageal reflux disease. 17. Morbid obesity. Body mass index of almost 40. 18. Possible adverse reaction to Depakote which was discontinued. HISTORY OF PRESENT ILLNESS AND HOSPITALIZATION COURSE: This is a very delightful 68-year-old male patient with past medical history significant for atrial fibrillation, morbid obesity, and diabetes mellitus requiring insulin who initially presented to [facility] not feeling well. The patient was diagnosed with significant bradycardia and complete heart block, he was having acute kidney injury and hyperkalemia and he was transferred to our facility, the patient was initially admitted to the ICU, he was hydrated and he was placed on intravenous steroids. The patient was seen by Cardiology and he had a biventricular pacemaker placed on 01/24 that was complicated with some hematoma at the incision site. His anticoagulation was discontinued. The patient was kept only on aspirin for now. His hematoma has indeed improved. He was also diagnosed with UTI with Klebsiella pneumonia that was treated with IV antibiotics. The patient is afebrile. His WBC has normalized. He also had encephalopathy which felt related to multiple factors including CO2 narcosis, hypoglycemia as well as medications. We did adjust his diabetes regimen, I think we will discharge him home on 20 of Lantus, his dose to be adjusted accordingly as outpatient. The patient also had a chest x-ray that showed no evidence of pneumothorax or large effusions. He was placed on Lasix 20 mg p.o. b.i.d. Again, his dose can be adjusted accordingly as an outpatient. The patient again had improvement of his mental status, his blood sugar has been under control, indeed, I needed to change his Lantus to 20 units subcutaneously. I have made a lot of changes of his medications, Depakote was discontinued. His trazodone was discontinued. I do not think he needs any pain medications other than Tylenol for now. The patient has done well over the last 24 hours. He has been up and communicating pretty well, he needs to sleep with the BiPAP. He is on oxygen at home. Initially recommended placement to SNF however, his family insisted to take him home. I will arrange for home health. The patient has some equipment, he has BiPAP and he has oxygen. He has a very supportive family. I think he is stable for discharge today. He was up in his bed, mentating well this morning. He had a pretty good night. Eating well. No chest pain. No swelling. His vital signs and labs are stable. PHYSICAL EXAMINATION: GENERAL: He is alert, awake, mentating well with no apparent distress. VITAL SIGNS: Temperature was 36.5 degrees, pulse 61, respiratory rate 18, blood pressure was 146/51. HEENT: Atraumatic. Oral mucosa is moist. NECK: Supple. No goiter. CHEST: Clear. HEART: Regular, not tachycardic. ABDOMEN: Soft, nontender. Bowel sounds are active. MUSCULOSKELETAL EXAM: Good pulses. No clubbing or cyanosis. NEURO EXAM: Mentating well, no slurred speech or facial asymmetry. The patient has debility. No tremors or focal deficits. LABORATORY DATA: WBC was 5.8, hemoglobin 9.6, platelet count 149,000. Sodium 140, potassium 4.1, BUN of 24, creatinine of 0.88. Phosphorus was 3.5 with magnesium of 1.8. Blood sugar 220 and 240. Blood cultures negative. DIAGNOSTIC DATA: Echocardiogram on 01/20 showed ejection fraction of 40%- 45% with some global hypokinesia. The patient has trace mitral regurgitation. CONSULTS: 1. Physical therapy. 2. Cardiology service. 3. EP service. DISPOSITION: Home today with home health. MEDICATIONS: Please refer to the medication reconciliation form that was on the chart. CODE STATUS: The patient is DNR that will be honored. CONDITION ON DISCHARGE: Stable. DIET: Cardiac/1800 ADA. FOLLOW-UP: 1. Follow up with Dr. Berry from Cardiology in 1 week, he has an appointment on the 18 of February. We need to discuss and decide about his Eliquis that was held during this admission due to hematoma at his procedure site. 2. Follow up with his PCP in a week. 3. Call 911 for any emergency or unusual symptoms. 4. Check his blood sugar at least twice a day, document the readings for further adjustment of the new regimen as outpatient. 5. I did talk to the patient at length about his condition, his was at bedside. She is his main caregiver. I think he is stable for discharge. Outpatient general cardiology visit on AUG 05: 69-year-old male with history of obesity, hypertension, hyperlipidemia, diabetes, sleep apnea, COPD, heart failure with reduced ejection fraction, lymphoma and atrial fibrillation who returns today for follow-up on heart failure. He has had multiple hospitalizations for heart failure as described below. The patient has done well since the prior visit and lost 4 more pounds. He feels much better. There has been no more interim hospitalizations. He was admitted to [facility] 01/19/19 through 02/07/19 after he presented to [facility] not feeling well and was found to be in complete heart block therefore he underwent pacemaker placement on 01/24/[address] Christian. During that hospitalization he was found also to have ventricular tachycardia, decompensated heart failure, acute kidney injury. His ejection fraction was 40%. He also developed pocket hematoma at the site of the pacemaker reason why his Eliquis was held. His device interrogation in June 2019 demo nstrated recurrence of his atrial fibrillation. Hospitalizations: -07/07/16 through 07/11/16 at [facility]: Decompensated heart failure. -Unknown date at [facility]: Severe infection in the scrotal area requiring surgery. -June 2018 at [facility]: Respiratory failure, anemia and paroxysmal atrial fibrillation after he was found obtunded at home. He required intubation. -01/19/19 through 02/07/19: [facility] for complete heart block, ventricular tachycardia, acute on chronic hypoxemic respiratory failure secondary to COPD, acute decompensated heart failure. Reason For Visit: VENTRICULAR TACHYCARDIA, ACUTE ON CHRONIC Physical Exam Vital Signs: Temp Pulse Resp BP Pulse Ox 97.2 F 79 19 109/60 99 12/08/19 03:47 12/08/19 03:47 12/08/19 04:25 12/08/19 03:47 12/08/19 04:25 Intake & Output 12/06/19 12/07/19 12/08/19 06:59 06:59 06:59 Intake Total 1590 1397 1830 Output Total 1625 1775 975 Balance -35 -378 855 Weight 130.9 kg 129.7 kg Results Laboratory Results: 12/07/19 06:02 12/07/19 06:02 12/05/19 12/07/19 12/07/19 09:38 06:02 06:02 WBC 9.3 RBC 2.71 L Hgb 7.6 L Hct 22.9 L MCV 85 MCH 28.0 MCHC 33.2 RDW 17.7 H Plt Count 163 Seg Neutrophils % Not Reportable Sodium 146.6 H Potassium 3.7 Chloride 104 Carbon Dioxide 33 H Anion Gap 10 BUN 70 H Creatinine 1.75 H Est GFR ( Amer) 47 L Glucose 42 L Calcium 8.2 L Magnesium 3.1 H Total Bilirubin 1.2 AST 32 Alkaline Phosphatase 240 H Total Protein 5.6 L Albumin 3.5 Blood Type O NEGATIVE Antibody Screen NEGATIVE 11/27/19 11/27/19 11/27/19 14:30 14:30 14:30 Creatine Kinase 93 CK-MB (CK-2) 2.99 Troponin I 0.044 NT-Pro-B Natriuret Pep 4090 H 11/27/19 11/28/19 11/28/19 20:00 02:10 08:23 Creatine Kinase CK-MB (CK-2) Troponin I 0.473 0.681 0.594 NT-Pro-B Natriuret Pep Impressions: Chest X-Ray 12/04/19 00:00 IMPRESSION: Low lung volumes. Otherwise stable radiographic appearance of the chest demonstrating cardiomegaly with mild central vascular congestion. Assessment & Plan - Diagnosis (1) Heart failure with reduced ejection fraction Plan: He does not appear to be dehydrated any longer on physical exam and there are no obvious signs of heart failure although his fluid balance is +4 L. His oropharynx is moist now and not dry any longer and his renal function is improved. He does continue to be very ill and mildly short of breath which I think is multifactorial to include body habitus, his anemia, deconditioning, heart failure and hypoventilation syndrome. Recommendations: -Discontinue IV fluids. -Chest x-ray today. -BMP and proBNP today. -Further recommendations pending review of above labs and chest x-ray results. (2) Elevated troponin Is this a current diagnosis for this admission?: Yes Plan: The patient had a mildly elevated troponin which has now down trended. I believe this issue is multifactorial to include ischemic heart disease particula r in the setting of VT and decompensated heart failure however cannot completely rule out a degree of just supply/demand mismatch. Unfortunately the patient is not currently a candidate for further cardiovascular assessment given his overall medical condition as well as his renal dysfunction. Recommendations: -Continue with current medical management for now. -We will continue to follow-up with you. (3) Ventricular tachycardia Is this a current diagnosis for this admission?: Yes Plan: Likely secondary to cardiac ischemia. Unfortunately patient is not a candidate for further ischemic assessment at this point. We will continue with current medical management and will consider further ischemic assessment when he improv es. (4) Atrial fibrillation Is this a current diagnosis for this admission?: Yes Plan: Well controlled at this point. He is paced and now anticoagulated without gross evidence of recurrence of GI bleed. Recommendations: -Continue with current medical management. (5) Hypertension Qualifiers: Hypertension type: essential hypertension Qualified Code(s): I10 - Essential (primary) hypertension Is this a current diagnosis for this admission?: Yes Plan: Blood pressure is at goal. We will continue with current medical management.
[2019-12-08 09:45] LABS: ARTERIAL BLOOD BASE EXCESS 3.4 mmol/L; ARTERIAL BLOOD H2CO3 2.21 mmol/L (1.05-1.35); ARTERIAL BLOOD HCO3 31.8 mmol/L (20-24); ARTERIAL BLOOD O2 SATURATION 95.6 % (94-98); ARTERIAL BLOOD PH 7.26 (7.35-7.45); ARTERIAL BLOOD PO2 92.5 mmHg (80-100); ARTERIAL BLOOD TOTAL CO2 34.1 mmol/L (23-27)
[2019-12-08 09:48] LABS: ARTERIAL BLOOD FIO2 35%
[2019-12-08 09:50] LABS: HEMATOCRIT 24.8 % (37.9-51.0); MEAN CORPUSCULAR HEMOGLOBIN 27.5 pg (27.0-33.4); MEAN CORPUSCULAR HGB CONC 32.1 g/dL (32.0-36.0); MEAN CORPUSCULAR VOLUME 86 fl (80-97); PLATELET COUNT 153 10^3/uL (150-450); RED CELL DISTRIBUTION WIDTH 18.6 % (11.5-14.0); WHITE BLOOD COUNT 7.7 10^3/uL (4.0-10.5)
[2019-12-08 09:51] LABS: ARTERIAL BLOOD PCO2 73.4 mmHg (35-45)
[2019-12-08 10:02] LABS: ANION GAP 11 (5-19); BLOOD UREA NITROGEN 65 mg/dL (7-20); CALCIUM 7.9 mg/dL (8.4-10.2); CARBON DIOXIDE 32 mmol/L (22-30); CHLORIDE 101 mmol/L (98-107); GLUCOSE 129 mg/dL (75-110); POTASSIUM 4.1 mmol/L (3.6-5.0)
--- NOTE | 2019-12-08 10:45 | RADIOLOGY REPORT (SQ) ---
EXAM DESCRIPTION: CHEST SINGLE VIEW IMAGES COMPLETED DATE/TIME: 12/08/2019 9:50 am REASON FOR STUDY: dyspnea, hypoxia COMPARISON: 12/04/2019. EXAM PARAMETERS: NUMBER OF VIEWS: One view. TECHNIQUE: Single frontal radiographic view of the chest acquired. RADIATION DOSE: NA LIMITATIONS: None. FINDINGS: LUNGS AND PLEURA: Faint basilar densities unchanged. No large pleural effusions. MEDIASTINUM AND HILAR STRUCTURES: No masses. Contour normal. HEART AND VASCULAR STRUCTURES: Cardiomegaly. Mild vascular congestion. BONES: No acute findings. HARDWARE: Pacemaker. Cardiac recorder. OTHER: No other significant finding. IMPRESSION: NO SIGNIFICANT CHANGE IN APPEARANCE OF THE CHEST. TECHNICAL DOCUMENTATION: JOB ID: [id number] 2010 Close- All Rights Reserved Reading location - IP/workstation name: [email or web address]
[2019-12-08] MEDS: ACETAMINOPHEN 325 MG TABLET PO PRN ×2 (13:19→19:00)
--- NOTE | 2019-12-08 18:09 | PDOC CONSULTATION ---
Consultation Consult Date: 12/08/19 Provider Consulted: POLO ROTHMAN Consult reason:: Alveolar hypoventilation in the setting of profound congestive cardiomyopathy. History of Present Illness Admission Date/PCP: 11/27/19 18:21 HILARIA ALFARO MD History of Present Illness: The following data encapsulates this patient's underlying congestive cardiomyopathy and its treatment outside of this facility. I do not directly have access to the outside facilities medical records and so this is included here to document the extent of this patient's underlying cardiomyopathy. A large amount of this patient's treatment of his underlying cardiomyopathy has been outside of this facility. THEODORE SON is a 69 year old male with history of obesity, hypertension, hyperlipidemia, diabetes, sleep apnea, COPD, heart failure with reduced ejection fraction, lymphoma and atrial fibrillation who is consulted to our service for further evaluation of heart failure. He has had multiple hospitalizations for heart failure in the recent past the most recent of which was at [facility] 01/19/19 through 02/07/19 after he presented to [facility] not feeling well and was found to be in complete heart block therefore he underwent pacemaker placement on 01/24/[address] Christian. During that hospitalization he was found also to have ventricular tachycardia, decompensated heart failure, acute kidney injury. His ejection fraction was 40%. He also developed pocket hematoma at the site of the pacemaker reason why his Eliquis was held. His device interrogation in June 2019 demonstrated recurrence of his atrial fibrillation.he had been in his usual state of health until the day of admission when he called EMS due to pressure-like chest pain associated with nausea. EMS found the patient in ventricular tachycardia which did not respond to 2 doses of adenosine followed by 150 mg of amiodarone with resolution of the rhythm. He had an uneventful night and without further episodes of ventricular tachycardia. He is on BiPAP and easily arousable. He appears to be uncomfortable in bed however denies chest pain, shortness of breath, palpitations, dizziness or lightheadedness. His most recent pacemaker interrogation in October 2019 demonstrated atrial flutter with VT of unknown duration. He has received only 1 dose of Lasix at 2200 last night but his intak e and output has not been reported yet this morning. 12/08/2019: The patient had an uneventful night. He underwent EGD and colonoscopy only revealing mild gastritis without evidence of active bleeding, his colonoscopy was normal. He is more awake this morning and is able to answer questions in sh ort sentences. He does appear mildly short of breath when he is not on BiPAP. There has been no more episodes of GI bleeding. His fluid balance is currently +4 L. Of note, his telemetry shows a paced rhythm without recurrence of VT. Physical exam on 12/08/2019: GENERAL: Appears mildly short of breath, follows commands. Periorbital edema is noted. He looks more comfortable today in bed. Disheveled and morbidly obese. HEENT: Normocephalic, atraumatic. Pupils equal. Sclerae anicteric. O ropharynx is moist. NECK: Difficult to evaluate for JVD due to his body habitus. No carotid bruits. LUNGS: Difficult to assess due to his body habitus and positioning in bed however no significant rales or crackles noted. CARDIOVASCULAR: Regular rate and rhythm, normal S1 and S2 without murmurs, rubs, or gallops. PMI not displaced. ABDOMEN: Difficult to evaluate for organomegaly given his obesity. No bruit. No splenomegaly or hepatomegaly. No abdominal aorta bruit noted. EXTREMITIES: No gross pitting edema bilaterally, no cyanosis, no clubbing. +2 pulses femoral and pedal pulses bilaterally. MUSCULOSKELETAL: No chest tenderness to palpation. Multiple ecchymosis throughout his body. NEUROLOGIC: Nonfocal. No gross sensory or motor deficits bilateral upper or lower extremities. NAME: THEODORE SON DATE OF : 1950 PROVIDER: CHAD JAIN MD TIME D/T: 10:46 / 11:29 DATE OF ADMISSION: 01/19/2019 DATE OF DISCHARGE: 02/07/2019 DISCHARGE DIAGNOSES: 1. Complete heart block, status post pacemaker placement on 01/24/2019. 2. Ventricular tachycardia which has resolved. 3. Acute on top of chronic hypoxic respiratory failure, felt related to chronic obstructive pulmonary disease. 4. Obstructive sleep apnea, on CPAP. 5. Acute decompensated congestive heart failure which is systolic and diastolic with ejection fraction of 40%. 6. Ambulatory dysfunction. 7. Type 2 diabetes mellitus with peripheral neuropathy and hypoglycemia. 8. Hyponatremia, resolved. 9. Acute kidney injury, resolved. 10. Anemia felt of chronic illness. 11. Klebsiella pneumonia urinary tract infection, status post full course of therapy. 12. Hyperphosphatemia, resolved. 13. Persistent atrial fibrillation. At this point in time on anticoagulation due to bleeding around his pacemaker. 14. Postoperative hematoma. 15. Hyperlipidemia. 16. Gastroesophageal reflux disease. 17. Morbid obesity. Body mass index of almost 40. 18. Possible adverse reaction to Depakote which was discontinued. HISTORY OF PRESENT ILLNESS AND HOSPITALIZATION COURSE: This is a very delightful 68-year-old male patient with past medical history significant for atrial fibrillation, morbid obesity, and diabetes mellitus requiring insulin who initially presented to [facility] not feeling well. The patient was diagnosed with significant bradycardia and complete heart block, he was having acute kidney injury and hyperkalemia and he was transferred to our facility, the patient was initially admitted to the ICU, he was hydrated and he was placed on intravenous steroids. The patient was seen by Cardiology and he had a biventricular pacemaker placed on 01/24 that was complicated with some hematoma at the incision site. His anticoagulation was discontinued. The patient was kept only on aspirin for now. His hematoma has indeed improved. He was also diagnosed with UTI with Klebsiella pneumonia that was treated with IV antibiotics. The patient is afebrile. His WBC has normalized. He also had encephalopathy which felt related to multiple factors including CO2 narcosis, hypoglycemia as well as medications. We did adjust his diabetes regimen, I think we will discharge him home on 20 of Lantus, his dose to be adjusted accordingly as outpatient. The patient also had a chest x-ray that showed no evidence of pneumothorax or large effusions. He was placed on Lasix 20 mg p.o. b.i.d. Again, his dose can be adjusted accordingly as an outpatient. The patient again had improvement of his mental status, his blood sugar has been under control, indeed, I needed to change his Lantus to 20 units subcutaneously. I have made a lot of changes of his medications, Depakote was discontinued. His trazodone was discontinued. I do not think he needs any pain medications other than Tylenol for now. The patient has done well over the last 24 hours. He has been up and communicating pretty well, he needs to sleep with the BiPAP. He is on oxygen at home. Initially recommended placement to SNF however, his family insisted to take him home. I will arrange for home health. The patient has some equipment, he has BiPAP and he has oxygen. He has a very supportive family. I think he is stable for discharge today. He was up in his bed, mentating well this morning. He had a pretty good night. Eating well. No chest pain. No swelling. His vital signs and labs are stable. PHYSICAL EXAMINATION: GENERAL: He is alert, awake, mentating well with no apparent distress. VITAL SIGNS: Temperature was 36.5 degrees, pulse 61, respiratory rate 18, blood pressure was 146/51. HEENT: Atraumatic. Oral mucosa is moist. NECK: Supple. No goiter. CHEST: Clear. HEART: Regular, not tachycardic. ABDOMEN: Soft, nontender. Bowel sounds are active. MUSCULOSKELETAL EXAM: Good pulses. No clubbing or cyanosis. NEURO EXAM: Mentating well, no slurred speech or facial asymmetry. The patient has debility. No tremors or focal deficits. LABORATORY DATA: WBC was 5.8, hemoglobin 9.6, platelet count 149,000. Sodium 140, potassium 4.1, BUN of 24, creatinine of 0.88. Phosphorus was 3.5 with magnesium of 1.8. Blood sugar 220 and 240. Blood cultures negative. DIAGNOSTIC DATA: Echocardiogram on 01/20 showed ejection fraction of 40%- 45% with some global hypokinesia. The patient has trace mitral regurgitation. CONSULTS: 1. Physical therapy. 2. Cardiology service. 3. EP service. DISPOSITION: Home today with home health. MEDICATIONS: Please refer to the medication reconciliation form that was on the chart. CODE STATUS: The patient is DNR that will be honored. CONDITION ON DISCHARGE: Stable. DIET: Cardiac/1800 ADA. FOLLOW-UP: 1. Follow up with Dr. Berry from Cardiology in 1 week, he has an appointment on the 18 of February. We need to discuss and decide about his Eliquis that was held during this admission due to hematoma at his procedure site. 2. Follow up with his PCP in a week. 3. Call 911 for any emergency or unusual symptoms. 4. Check his blood sugar at least twice a day, document the readings for further adjustment of the new regimen as outpatient. 5. I did talk to the patient at length about his condition, his was at bedside. She is his main caregiver. I think he is stable for discharge. Outpatient general cardiology visit on Jul 20: 69-year-old male with history of obesity, hypertension, hyperlipidemia, diabetes, sleep apnea, COPD, heart failure with reduced ejection fraction, lymphoma and atrial fibrillation who returns today for follow-up on heart fail ure. He has had multiple hospitalizations for heart failure as described below. The patient has done well since the prior visit and lost 4 more pounds. He feels much better. There has been no more interim hospitalizations. He was admitted to [facility] 01/19/19 through 02/07/19 after he presented to [facility] not feeling well and was found to be in complete heart block therefore he underwent pacemaker placement on 01/24/[address] Christian. During that hospitalization he was found also to have ventricular tachycardia, decompensated heart failure, acute kidney injury. His ejection fraction was 40%. He also developed pocket hematoma at the site of the pacemaker reason why his Eliquis was held. His device interrogation in June 2019 demonstrated recurrence of his atrial fibrillation. Hospitalizations: -07/07/16 through 07/11/16 at [facility]: Decompensated heart failure. -Unknown date at [facility]: Severe infection in the scrotal area requiring surgery. -June 2018 at [facility]: Respiratory failure, anemia and paroxysmal atrial fibrillation after he was found obtunded at home. He required intubation. -01/19/19 through 02/07/19: [facility] for complete heart block, ventricular tachycardia, acute on chronic hypoxemic respiratory failure secondary to COPD, acute decompensated heart failure. The above history from his clean room technician was included because it encapsulates the extent and degree of this patient's cardiac dysfunction. In further discussions with the patient's she indicates that he has a past history of cigarette smoking, smoking as much as 2 packs/day. He has smoked all of his adult life. He wears a BiPAP device at night and sometimes during the day. In addition he is on chronic oxygen therapy as well. She notes over the last several months that he has had a progressive decline in his exertional capacity and ability to breathe. Past Medical History Cardiac Medical History: Reports: Atrial Fibrillation, Congestive Heart Failure, Coronary Artery Disease, Hyperlipidema, Hypertension, Peripheral Vascular Dis ease, Other - Complete heart block on January 2019 requiring a pacemaker placement. Denies: Myocardial Infarction Pulmonary Medical History: Reports: Bronchitis, Chronic Obstructive Pulmonary Disease (COPD), Intubation, Pneumonia, Respiratory Failure, Sleep Apnea Denies: Asthma Neurological Medical History: Denies: Seizures Endocrine Medical History: Reports: Diabetes Mellitus Type 2 Denies: Diabetes Mellitus Type 1, Hyperthyroidism, Hypothyroidism Malignancy Medical History: Reports: Lymphoma GI Medical History: Denies: Cirrhosis, Crohn's Disease, Hepatitis, Hiatal Hernia, Ulcerative Colitis Musculoskeltal Medical History: Reports: Arthritis Denies: Gout Skin Medical History: Denies: Eczema, Psoriasis Psychiatric Medical History: Reports: Depression Traumatic Medical History: Denies: Traumatic Brain Injury Hematology: Reports: Anemia Denies: Sickle Cell Disease, Bleeding Tendencies Infectious Medical History: Denies: HIV Past Surgical History Past Surgical History: Reports: Pacemaker - 01/2019, Other - Neurosurgery for spinal tumor removal, orchiectomy for James's gangrene Social History Lives with: Spouse/Significant other Smoking Status: Current Every Day Smoker Frequency of Alcohol Use: None Hx Recreational Drug Use: No Drugs: None Hx Prescription Drug Abuse: No - Advance Directive Resuscitation Status: Full Code Family History Family History: None, Reviewed & Not Pertinent, CAD, COPD, DM, Hypertension, Malignancy Parental Family History Reviewed: No Children Family History Reviewed: No Sibling(s) Family History Reviewed.: No Medication/Allergy Home Medications: Apixaban [Eliquis 5 mg Tablet] 5 mg PO Q12 11/28/19 Buspirone HCl 5 mg PO DAILY 11/28/19 Carvedilol [Coreg 6.25 mg Tablet] 6.25 mg PO Q12 11/28/19 Furosemide [Lasix 80 mg Tablet] 80 mg PO BID 11/28/19 Gabapentin [Neurontin] 600 mg PO Q8 11/28/19 Insulin Glargine,Hum.rec.anlog [Lantus Insulin 100 Unit/1 ml 10 ml] 40 unit SQ Q12 11/28/19 Meloxicam [Mobic 7.5 mg Tablet] 7.5 mg PO DAILYP PRN 11/28/19 Allergies/Adverse Reactions: No Known Allergies Allergy (Verified 06/21/18 04:09) Physical Exam Vital Signs: Temp Pulse Resp BP Pulse Ox 97.5 F 75 21 H 111/47 L 100 12/08/19 16:25 12/08/19 16:25 12/08/19 16:25 12/08/19 16:25 12/08/19 16:25 Intake & Output 12/07/19 12/08/19 12/09/19 06:59 06:59 06:59 Intake Total 1397 1930 470 Output Total 1775 1150 200 Balance -378 780 270 Weight 129.7 kg 125.4 kg Exam: On physical examination this patient was seen lying in bed with a full face CPAP device in place. He was hypersomnolent and unresponsive largely to questioning. His neck was supple without adenopathy or bruits his lung exam revealed markedly diminished breath sounds throughout all lung yañez his heart exam revealed distant heart tones. Abdomen was markedly distended with bowel sounds noted to be present. Extremity exam revealed only trace pitting edema. Results Laboratory Results: 12/08/19 09:00 12/08/19 09:00 12/08/19 12/08/19 12/08/19 09:00 09:00 09:30 WBC 7.7 RBC 2.90 L Hgb 8.0 L Hct 24.8 L MCV 86 MCH 27.5 MCHC 32.1 RDW 18.6 H Plt Count 153 Carbonic Acid 2.21 H HCO3/H2CO3 Ratio 14:1 ABG pH 7.26 L ABG pCO2 73.4 H* ABG pO2 92.5 ABG HCO3 31.8 H ABG O2 Saturation 95.6 ABG Base Excess 3.4 FiO2 35% Sodium 143.9 Potassium 4.1 Chloride 101 Carbon Dioxide 32 H Anion Gap 11 BUN 65 H Creatinine 1.88 H Est GFR ( Amer) 43 L Glucose 129 H Calcium 7.9 L Blood Type Antibody Screen 12/08/19 12:35 WBC RBC Hgb Hct MCV MCH MCHC RDW Plt Count Carbonic Acid HCO3/H2CO3 Ratio ABG pH ABG pCO2 ABG pO2 ABG HCO3 ABG O2 Saturation ABG Base Excess FiO2 Sodium Potassium Chloride Carbon Dioxide Anion Gap BUN Creatinine Est GFR ( Amer) Glucose Calcium Blood Type O NEGATIVE Antibody Screen NEGATIVE 11/27/19 11/27/19 11/27/19 14:30 14:30 14:30 Creatine Kinase 93 CK-MB (CK-2) 2.99 Troponin I 0.044 NT-Pro-B Natriuret Pep 4090 H 11/27/19 11/28/19 11/28/19 20:00 02:10 08:23 Creatine Kinase CK-MB (CK-2) Troponin I 0.473 0.681 0.594 NT-Pro-B Natriuret Pep 12/08/19 09:00 Creatine Kinase CK-MB (CK-2) Troponin I NT-Pro-B Natriuret Pep 5080 H Impressions: Chest X-Ray 12/08/19 00:00 IMPRESSION: NO SIGNIFICANT CHANGE IN APPEARANCE OF THE CHEST. Status: Image reviewed by me - I did review his series of chest films since his admission to this hospital. Assessment & Plan - Diagnosis (1) Acute on chronic systolic CHF (congestive heart failure) Is this a current diagnosis for this admission?: Yes (2) CHF (congestive heart failure) Qualifiers: Heart failure type: diastolic Heart failure chronicity: chronic Qualified Code(s): I50.32 - Chronic diastolic (congestive) heart failure Is this a current diagnosis for this admission?: Yes (3) COPD (chronic obstructive pulmonary disease) Qualifiers: COPD type: unspecified COPD Qualified Code(s): J44.9 - Chronic obstructive pulmonary disease, unspecified Is this a current diagnosis for this admission?: Yes (5) Hypercapnic respiratory failure Qualifiers: Chronicity: acute on chronic Qualified Code(s): J96.22 - Acute and chronic respiratory failure with hypercapnia Is this a current diagnosis for this admission?: Yes (6) Morbid obesity with BMI of 40.0-44.9, adult Is this a current diagnosis for this admission?: Yes (7) Morbid obesity with alveolar hypoventilation Is this a current diagnosis for this admission?: Yes (8) NSTEMI (non-ST elevated myocardial infarction) Is this a current diagnosis for this admission?: Yes (9) Physical deconditioning Is this a current diagnosis for this admission?: Yes (10) Acute and chronic respiratory failure Qualifiers: Respiratory failure complication: hypoxia and hypercapnia Qualified Code(s): J96.21 - Acute and chronic respiratory failure with hypoxia; J96.22 - Acute and chronic respiratory failure with hypercapnia (11) Acute exacerbation of CHF (congestive heart failure) Qualifiers: Heart failure type: systolic Qualified Code(s): I50.23 - Acute on chronic systolic (congestive) heart failure Is this a current diagnosis for this admission?: Yes (12) Acute on chronic systolic congestive heart failure, NYHA class 3 Is this a current diagnosis for this admission?: Yes (14) COPD (chronic obstructive pulmonary disease) Qualifiers: Emphysema type: unspecified (15) Respiratory failure Qualifiers: Chronicity: acute on chronic Respiratory failure complication: hypercapnia Qualified Code(s): J96.22 - Acute and chronic respiratory failure with hypercapnia - Plan Summary Plan Summary: This patient has an impressive congestive cardiomyopathy. A series of chest x- rays performed since his admission reveals profound cardiomegaly with pulmonary edema. This patient's recent pro BNP is greater than 5000. While he does have a prior history of cigarette smoking his entire recent history has been predominantly related to his profound congestive cardiomyopathy. Recently he has been on both oxygen as well as a BiPAP device at home to maintain oxygen saturations. His arterial blood gas today suggests a respiratory acidosis with some compensation because his bicarbonate level is somewhat elevated at 32 however his bicarbonate level is not significantly elevated indicating that his CO2 elevation is relatively acute. Because of this relatively acute elevation of his CO2 I would like to place him on a small dose of Diamox to prevent metabolic compensation. This should help in maintaining his alveolar minute ventilation. In addition I have asked that he begin medroxyprogesterone 10 mg p.o. 3 times daily. This should act as a respiratory stimulant to the patient's underlying respiratory status. I debated whether or not we should also include a theophylline preparation in his therapy. However given the extent of his cardiac arrhythmias and also the extent of his cardiac dysfunction I think that even a potential cardiac irritant such as Aminophyllin is somewhat c ontraindicated. Unfortunately given his recent clinical course as well as the extent of his profound cardiomyopathy as evidenced by his markedly elevated proBNP it may be difficult to wean him off aggressive noninvasive ventilatory support while he persists in having what I believe to be significant pulmonary edema. To the extent that further diuresis or volume reduction can be undertaken I think that would be beneficial in his underlying clinical condition. Should he fail to improve with the above therapy, I think he would be a candidate for LVAD as either a bridge or a destination therapy for his profound cardiac dysfunction. Prior to that consideration, a trial in the intensive care unit with [place] catheterization and afterload reduction might also be in order. Will discuss further with the team caring for him.
--- NOTE | 2019-12-08 18:36 | PDOC PROGRESS REPORT ---
Subjective Progress Note for:: 12/08/19 Subjective:: THEODORE SON is a 69 year old male with PMH of HTN, HLD, morbid obesity (BMI 43), atrial fibrillation on AC, CHB s/p pacemaker, HFrEF (40%), ventricular tachycardia, PAD, Follicular Lymphoma, insulin dependent DM2, and PATEL on BIPAP who was admitted 11/27/2019 with ventricular tachycardia and acute on chronic systolic CHF Patient was seen on morning rounds with his present. He was found resting in bed, comfortably, on BiPAP. Patient was sleeping but woke easily when I said his name. He was oriented to self and place today; complains that he is tired. Per , patient has improved alertness and orientation today but is not yet back to baseline. Continues to desat and become dyspneic when off BiPAP for short periods of time. The patient did not participate in review of system. Per spouse, no new complaints have been voiced. Long discussion had with today; please see separate ACP note. No concerns per nursing. Reason For Visit: VENTRICULAR TACHYCARDIA, ACUTE ON CHRONIC Physical Exam Vital Signs: Temp Pulse Resp BP Pulse Ox 97.6 F 80 18 92/43 L 96 12/08/19 17:25 12/08/19 17:25 12/08/19 17:25 12/08/19 17:25 12/08/19 17:25 Intake & Output 12/07/19 12/08/19 12/09/19 06:59 06:59 06:59 Intake Total 1397 1930 470 Output Total 1775 1150 200 Balance -378 780 270 Weight 129.7 kg 125.4 kg General appearance: PRESENT: no acute distress, hard of hearing, morbidly obese, well-developed, well-nourished, other - Chronically ill-appearing Head exam: PRESENT: atraumatic, normocephalic Eye exam: PRESENT: conjunctiva pink, EOMI, PERRLA. ABSENT: scleral icterus Mouth exam: PRESENT: moist, tongue midline Teeth exam: PRESENT: poor dentation Respiratory exam: PRESENT: accessory muscle use, clear to auscultation ernesto, decreased breath sounds - Throughout; limited by body habitus, positioning, and patient's ability participate in exam, symmetrical, other - BiPAP. ABSENT: rales, rhonchi, wheezes Cardiovascular exam: PRESENT: irregular rhythm, +S1, +S2. ABSENT: diastolic murmur, rubs, systolic murmur Vascular exam: PRESENT: normal capillary refill Gentrourinary exam: PRESENT: indwelling catheter Extremities exam: PRESENT: full ROM. ABSENT: calf tenderness, clubbing, pedal edema Neurological exam: PRESENT: alert, awake, oriented to person, oriented to place, oriented to situation, CN II-XII grossly intact, other - Intermittent confusion; improved from yesterday. Seems to wax and wane. ABSENT: oriented to time, motor sensory deficit Psychiatric exam: PRESENT: agitated, normal mood. ABSENT: homicidal ideation, suicidal ideation Skin exam: PRESENT: dry, intact, warm. ABSENT: cyanosis, rash Results Laboratory Results: 12/08/19 09:00 12/08/19 09:00 12/08/19 12/08/19 12/08/19 09:00 09:00 09:30 WBC 7.7 RBC 2.90 L Hgb 8.0 L Hct 24.8 L MCV 86 MCH 27.5 MCHC 32.1 RDW 18.6 H Plt Count 153 Carbonic Acid 2.21 H HCO3/H2CO3 Ratio 14:1 ABG pH 7.26 L ABG pCO2 73.4 H* ABG pO2 92.5 ABG HCO3 31.8 H ABG O2 Saturation 95.6 ABG Base Excess 3.4 FiO2 35% Sodium 143.9 Potassium 4.1 Chloride 101 Carbon Dioxide 32 H Anion Gap 11 BUN 65 H Creatinine 1.88 H Est GFR ( Amer) 43 L Glucose 129 H Calcium 7.9 L Blood Type Antibody Screen 12/08/19 12:35 WBC RBC Hgb Hct MCV MCH MCHC RDW Plt Count Carbonic Acid HCO3/H2CO3 Ratio ABG pH ABG pCO2 ABG pO2 ABG HCO3 ABG O2 Saturation ABG Base Excess FiO2 Sodium Potassium Chloride Carbon Dioxide Anion Gap BUN Creatinine Est GFR ( Amer) Glucose Calcium Blood Type O NEGATIVE Antibody Screen NEGATIVE 11/27/19 11/27/19 11/27/19 14:30 14:30 14:30 Creatine Kinase 93 CK-MB (CK-2) 2.99 Troponin I 0.044 NT-Pro-B Natriuret Pep 4090 H 11/27/19 11/28/19 11/28/19 20:00 02:10 08:23 Creatine Kinase CK-MB (CK-2) Troponin I 0.473 0.681 0.594 NT-Pro-B Natriuret Pep 12/08/19 09:00 Creatine Kinase CK-MB (CK-2) Troponin I NT-Pro-B Natriuret Pep 5080 H Impressions: Chest X-Ray 12/08/19 00:00 IMPRESSION: NO SIGNIFICANT CHANGE IN APPEARANCE OF THE CHEST. Assessment and Plan - Diagnosis (1) Acute on chronic systolic CHF (congestive heart failure) Is this a current diagnosis for this admission?: Yes Plan: - repeat echo EF <35%, LV moderately dilated, severe global hypokinesis - has a pacemaker; would benefit from AICD as the patient has had episodes of ventricular tachycardia BNP 4090-> 5080 Limited echo requested to assess IVC diameter/compressibility to assess fluid volume status. - started on Entresto with holding parameters - continue carvedilol - Holding the spironolactone secondary to worsening renal function. - Resume Eliquis - Now holding IVF - strict IO - fluid and sodium restriction - cardio following. Per Dr. Berry, with his deteriorating kidney function a LHC is indefinitely placed on hold. Primary management per Dr. Berry. (2) Hypercapnic respiratory failure Qualifiers: Chronicity: acute on chronic Qualified Code(s): J96.22 - Acute and chronic respiratory failure with hypercapnia Is this a current diagnosis for this admission?: Yes Plan: ABG reveals partially compensated respiratory acidosis with hypercapnia. - placed back on BIPAP - advised nurse to keep him on BIPAP Patient's endorses [id number] history (1.5 packs x ~40 years). Known history of COPD. Does not have an established supervisory examiner. Pulmonology is consulted; greatly appreciate Dr. Ortiz's evaluation recommendations. (3) JOHANNY (acute kidney injury) Is this a current diagnosis for this admission?: Yes Plan: Slight improvement today; Crea 1.72>1.94>1.97>2.3>2.3>2.32-> 1.92-> 1.75-> 1.88 Likely approaching new baseline r/t cardiorenal syndrome. Normal renal function 2018. Nephrology is consulted; appreciate their evaluation recommendations. Avoid nephrotoxic medications as able; renally dosed where appropriate. Undertake evaluation of GI bleeding is this may be contributing to the elevated BUN. Arzate catheter for strict I&O's. Optimize cardiac output. Follow-up chemistries. (4) GI bleed Qualifiers: Is this a current diagnosis for this admission?: Yes Plan: Resolved Surgery was consulted; underwent EGD and colonoscopy yesterday Colonoscopy was essentially unremarkable. EGD revealed mild gastritis. Spoke with Dr. Glynn; recommends continued PPI. He does not object to resumption of anticoagulation at this time. Continue IV Protonix daily (5) Acute blood loss anemia Is this a current diagnosis for this admission?: Yes Plan: Secondary to GI bleed. Patient has received 2 PRBC; a third unit is pending EDG and colonoscopy results as above. Continue IV Protonix. Have resumed Eliquis Follow-up CBC. (6) NSTEMI (non-ST elevated myocardial infarction) Is this a current diagnosis for this admission?: Yes Plan: No evidence of ischemic changes on EKG and currently CP free. Likely demand mismatch ischemia. However, given VT, he will absolutely need an ischemic work up with [facility]. Renal function is currently prohibiting this. - Trop peaked at 0.68 decreased to 0.59 - continue aspirin, carvedilol, statin Cardiology is consulted. Primary management per Dr. Berry. (7) PATEL (obstructive sleep apnea) Is this a current diagnosis for this admission?: Yes Plan: - on BIPAP (8) Physical deconditioning Is this a current diagnosis for this admission?: Yes Plan: - PT/OT Discharge planning consulted (9) Ventricular tachycardia Is this a current diagnosis for this admission?: Yes Plan: - has a Pacemaker, would need to be updated to an ICD - on PO amiodarone - continue carvedilol - cardio following. Primary management per cardiology. Not a candidate for further ischemic assessment at this point. Continue medical management. - keep K>4, Mg >2 (10) Atrial fibrillation Is this a current diagnosis for this admission?: Yes Plan: Resume Eliquis - on amio and carvedilol Cardiology consulted. Continue monitor on telemetry. (11) Conjunctivitis Qualifiers: Conjunctivitis type: blepharoconjunctivitis Laterality: bilateral Is this a current diagnosis for this admission?: Yes Plan: Improved; continue erythromycin ointment (12) Diabetes mellitus type 2 in obese Is this a current diagnosis for this admission?: Yes Plan: Continue home Lantus at half home dose of 40 units HS - SSI ACHS - carb controlled diet (13) Tobacco abuse Is this a current diagnosis for this admission?: Yes Plan: - encourage cessation - nicotine patch (14) Morbid obesity with BMI of 40.0-44.9, adult Is this a current diagnosis for this admission?: Yes Plan: - encouraged weight loss (15) Dry eyes, bilateral Is this a current diagnosis for this admission?: Yes Plan: - due to air leak from bipap - prescribed lubricant eye drops - Time Time Spent with patient: 35 or more minutes Medications reviewed and adjusted accordingly: Yes Anticipated Discharge Disposition: Home with Home Health Anticipated Discharge Timeframe: Undetermined
--- NOTE | 2019-12-08 18:40 | ADVANCED CARE ---
- Diagnosis (1) Acute on chronic systolic CHF (congestive heart failure) Diagnosis Current: Yes (2) Hypercapnic respiratory failure Diagnosis Current: Yes (3) JOHANNY (acute kidney injury) Diagnosis Current: Yes (4) GI bleed Diagnosis Current: Yes (5) Acute blood loss anemia Diagnosis Current: Yes (6) NSTEMI (non-ST elevated myocardial infarction) Diagnosis Current: Yes (7) PATEL (obstructive sleep apnea) Diagnosis Current: Yes (8) Physical deconditioning Diagnosis Current: Yes (9) Ventricular tachycardia Diagnosis Current: Yes (10) Atrial fibrillation Diagnosis Current: Yes (11) Conjunctivitis Diagnosis Current: Yes (12) Diabetes mellitus type 2 in obese Diagnosis Current: Yes (13) Tobacco abuse Diagnosis Current: Yes (14) Morbid obesity with BMI of 40.0-44.9, adult Diagnosis Current: Yes (15) Dry eyes, bilateral Diagnosis Current: Yes Attendance: Patient's , Shara Ruiz, at bedside. Resuscitation Status: Do Not Resuscitate Discussion: Discussed the patient's chronic medical conditions, current acute on chronic conditions, and overall prognosis. We discussed that there were not limited options regarding the patient's cardiac health related to his current renal insufficiency. We also discussed that the patient was showing worsening respiratory acidosis with hypercapnia despite having been on BiPAP nearly continuously over the last 72 hours. We did discuss that pulmonology and cardiology consultations were ongoing and that some additional recommendations may improve the patient's condition, however, it was also quite possible that the patient was beginning to transition into the end stage of his disease processes. The patient spouse acknowledges that he has been quite sick for some time. She states that the primary goal would be for the patient to return home with home health services. Under no circumstances does she want him admitted to SNF. She did tell me that she and her had previously discussed DNR status; they would not want to use IV fluids or artificial nutrition to prolong life. However, she does request that we consider and utilize all medical and surgical interventions up to the point of intubation and/or cardiopulmonary resuscitation. At this time, she did not wish to discuss palliative care or hospice services. Care Planning Goals: DNR. Continue medical interventions. MOST form provided for review. Document(s) Completed: DNR Time Spent: 50 min
[2019-12-08] MEDS ORDERED: MEDROXYPROGESTERONE ACET 10 MG TABLET PO SCH (19:00)
[2019-12-08 22:28] LABS: ABSOLUTE EOSINOPHILS # (AUTO) 0.2 10^3/uL (0.0-0.6); ABSOLUTE LYMPHOCYTES (AUTO) 0.4 10^3/uL (0.5-4.7); ABSOLUTE MONOCYTES (AUTO) 0.9 10^3/uL (0.1-1.4); ABSOLUTE NEUT (AUTO) 5.7 10^3/uL (1.7-8.2); BASOPHILS % (AUTO) 0.4 % (0-2); EOSINOPHILS % (AUTO) 2.9 % (0-6); HEMATOCRIT 24.9 % (37.9-51.0); LYMPHOCYTES % (AUTO) 5.6 % (13-45); MEAN CORPUSCULAR HEMOGLOBIN 27.8 pg (27.0-33.4); MEAN CORPUSCULAR HGB CONC 32.2 g/dL (32.0-36.0); MEAN CORPUSCULAR VOLUME 86 fl (80-97); MONOCYTES % (AUTO) 12.5 % (3-13); PLATELET COUNT 154 10^3/uL (150-450); RED BLOOD COUNT 2.89 10^6/uL (4.35-5.55); SEGMENTED NEUTROPHILS % (AUTO) 78.6 % (42-78); TOTAL CELLS COUNTED % (AUTO) 100 %; WHITE BLOOD COUNT 7.2 10^3/uL (4.0-10.5)
[2019-12-08] MEDS: INSULIN GLARGINE,HUM.REC.ANLOG 1,000 UNIT/10 ML VIAL SUBCUT SCH (22:28)
[2019-12-08] MEDS: ATORVASTATIN CALCIUM 80 MG TABLET PO SCH (22:29)
[2019-12-08] MEDS: ACETAZOLAMIDE 250 MG TABLET PO SCH (22:29)
[2019-12-09] MEDS: ERYTHROMYCIN 0.5% OPH OINTMENT 3.5 GM TUBE OU SCH ×3 (00:09→15:23)
[2019-12-09 06:44] LABS: HEMATOCRIT 24.5 % (37.9-51.0); MEAN CORPUSCULAR HEMOGLOBIN 27.8 pg (27.0-33.4); MEAN CORPUSCULAR HGB CONC 32.5 g/dL (32.0-36.0); MEAN CORPUSCULAR VOLUME 86 fl (80-97); PLATELET COUNT 143 10^3/uL (150-450); RED BLOOD COUNT 2.85 10^6/uL (4.35-5.55); RED CELL DISTRIBUTION WIDTH 17.9 % (11.5-14.0); WHITE BLOOD COUNT 7.3 10^3/uL (4.0-10.5)
[2019-12-09 06:51] LABS: HEMOGLOBIN 7.9 g/dL (13.5-17.0)
[2019-12-09 07:06] LABS: ANION GAP 5 (5-19); BLOOD UREA NITROGEN 69 mg/dL (7-20); CALCIUM 7.7 mg/dL (8.4-10.2); CARBON DIOXIDE 34 mmol/L (22-30); CHLORIDE 102 mmol/L (98-107); GLUCOSE 121 mg/dL (75-110)
[2019-12-09 07:09] LABS: APPEARANCE,URINE CLOUDY; BILIRUBIN,URINE NEGATIVE (NEGATIVE); COLOR,URINE AMBER; GLUCOSE, URINE NEGATIVE (NEGATIVE); KETONES,URINE NEGATIVE (NEGATIVE); LEUKOCYTE ESTERASE,URINE SMALL (NEGATIVE); NITRITE,URINE NEGATIVE (NEGATIVE); PROTEIN,URINE 100 mg/dL (NEGATIVE); URINE SPECIFIC GRAVITY 1.017
[2019-12-09] MEDS: INSULIN LISPRO 100 UNIT/ML 3 ML VIAL SUBCUT SCH ×2 (08:36→15:22)
[2019-12-09] MEDS: APIXABAN 5 MG TABLET PO SCH (09:22)
[2019-12-09] MEDS: BUSPIRONE HCL 10 MG TABLET PO SCH (09:22)
[2019-12-09] MEDS: CARVEDILOL 3.125 MG TABLET PO SCH (09:22)
[2019-12-09] MEDS: ACETAZOLAMIDE 250 MG TABLET PO SCH (09:34)
[2019-12-09] MEDS: CYCLOSPORINE 0.05% OPH EMULSIO 0.4 ML DROPERETTE OU SCH (09:35)
[2019-12-09] MEDS ORDERED: AMIODARONE HCL 200 MG TABLET PO SCH (10:00)
[2019-12-09] MEDS ORDERED: PANTOPRAZOLE SODIUM 40 MG VIAL IV SCH (10:00)
--- NOTE | 2019-12-09 11:38 | PDOC PROGRESS REPORT ---
Subjective Progress Note for:: 12/09/19 Subjective:: THEODORE SON is a 69 year old male with history of obesity, hypertension, hyperlipidemia, diabetes, sleep apnea, COPD, heart failure with reduced ejection fraction, lymphoma and atrial fibrillation who is consulted to our service for further evaluation of heart failure. He has had multiple hospitalizations for heart failure in the recent past the most recent of which was at [facility] 01/19/19 through 02/07/19 after he presented to [facility] not feeling well and was found to be in complete heart block therefore he underwent pacemaker placement on 01/24/[address] Christian. During that hospitalization he was found also to have ventricular tachycardia, decompensated heart failure, acute kidney injury. His ejection fraction was 40%. He also developed pocket hematoma at the site of the pacemaker reason why his Eliquis was held. His device interrogation in June 2019 demonstrated recurrence of his atrial fibrillation.he had been in his usual state of health until the day of admission when he called EMS due to pressure-like chest pain associated with nausea. EMS found the patient in ventricular tachycardia which did not respond to 2 doses of adenosine followed by 150 mg of amiodarone with resolution of the rhythm. He had an uneventful night and without further episodes of ventricular tachycardia. He is on BiPAP and easily arousable. He appears to be uncomfortable in bed however denies chest pain, shortness of breath, palpitations, dizziness or lightheadedness. His most recent pacemaker interrogation in October 2019 demonstrated atrial flutter with VT of unknown duration. He has received only 1 dose of Lasix at 2200 last night but his intake and output has not been reported yet this morning. 12/09/2019: Unfortunately, the patient has taken a turn for the worse. He is now BiPap dependent, his urine looks very concentrated and his creatinine is elevated to 2.3 despite adequate hydration. He had been sleeping much of the day. He is now a DNR. Of note, his telemetry shows a paced rhythm without recurrence of VT. Physical exam on 12/09/2019: GENERAL: On BiPap and asleep but awakens on commands although he is drowsy. Periorbital edema is noted. Disheveled and morbidly obese. HEENT: Normocephalic, atraumatic. Pupils equal. Sclerae anicteric. Oropharynx is moist. NECK: Difficult to evaluate for JVD due to his body habitus. No carotid bruits. LUNGS: Difficult to assess due to his body habitus and positioning in bed however no significant rales or crackles noted. CARDIOVASCULAR: Regular rate and rhythm, normal S1 and S2 without murmurs, rubs, or gallops. PMI not displaced. ABDOMEN: Difficult to evaluate for organomegaly given his obesity. No bruit. No splenomegaly or hepatomegaly. No abdominal aorta bruit noted. EXTREMITIES: No gross pitting edema bilaterally, no cyanosis, no clubbing. +2 pulses femoral and pedal pulses bilaterally. MUSCULOSKELETAL: No chest tenderness to palpation. Multiple ecchymosis throughout his body. NEUROLOGIC: Nonfocal. No gross sensory or motor deficits bilateral upper or lower extremities. NAME: THEODORE SON DATE OF : 1950 PROVIDER: CHAD JAIN MD TIME D/T: 10:46 / 11:29 DATE OF ADMISSION: 01/19/2019 DATE OF DISCHARGE: 02/07/2019 DISCHARGE DIAGNOSES: 1. Complete heart block, status post pacemaker placement on 01/24/2019. 2. Ventricular tachycardia which has resolved. 3. Acute on top of chronic hypoxic respiratory failure, felt related to chronic obstructive pulmonary disease. 4. Obstructive sleep apnea, on CPAP. 5. Acute decompensated congestive heart failure which is systolic and diastolic with ejection fraction of 40%. 6. Ambulatory dysfunction. 7. Type 2 diabetes mellitus with peripheral neuropathy and hypoglycemia. 8. Hyponatremia, resolved. 9. Acute kidney injury, resolved. 10. Anemia felt of chronic illness. 11. Klebsiella pneumonia urinary tract infection, status post full course of therapy. 12. Hyperphosphatemia, resolved. 13. Persistent atrial fibrillation. At this point in time on anticoagulation due to bleeding around his pacemaker. 14. Postoperative hematoma. 15. Hyperlipidemia. 16. Gastroesophageal reflux disease. 17. Morbid obesity. Body mass index of almost 40. 18. Possible adverse reaction to Depakote which was discontinued. HISTORY OF PRESENT ILLNESS AND HOSPITALIZATION COURSE: This is a very delightful 68-year-old male patient with past medical history significant for atrial fibrillation, morbid obesity, and diabetes mellitus requiring insulin who initially presented to [facility] not feeling well. The patient was diagnosed with significant bradycardia and complete heart block, he was having acute kidney injury and hyperkalemia and he was transferred to our facility, the patient was initially admitted to the ICU, he was hydrated and he was placed on intravenous steroids. The patient was seen by Cardiology and he had a biventricular pacemaker placed on 01/24 that was complicated with some hematoma at the incision site. His anticoagulation was discontinued. The patient was kept only on aspirin for now. His hematoma has indeed improved. He was also diagnosed with UTI with Klebsiella pneumonia that was treated with IV antibiotics. The patient is afebrile. His WBC has normalized. He also had encephalopathy which felt related to multiple factors including CO2 narcosis, hypoglycemia as well as medications. We did adjust his diabetes regimen, I think we will discharge him home on 20 of Lantus, his dose to be adjusted accordingly as outpatient. The patient also had a chest x-ray that showed no evidence of pneumothorax or large effusions. He was placed on Lasix 20 mg p.o. b.i.d. Again, his dose can be adjusted accordingly as an outpatient. The patient again had improvement of his mental status, his blood sugar has been under control, indeed, I needed to change his Lantus to 20 units subcutaneously. I have made a lot of changes of his medications, Depakote was discontinued. His trazodone was discontinued. I do not think he needs any pain medications other than Tylenol for now. The patient has done well over the last 24 hours. He has been up and communicating pretty well, he needs to sleep with the BiPAP. He is on oxygen at home. Initially recommended placement to SNF however, his family insisted to take him home. I will arrange for home health. The patient has some equipment, he has BiPAP and he has oxygen. He has a very supportive family. I think he is stable for discharge today. He was up in his bed, mentating well this morning. He had a pretty good night. Eating well. No chest pain. No swelling. His vital signs and labs are stable. PHYSICAL EXAMINATION: GENERAL: He is alert, awake, mentating well with no apparent distress. VITAL SIGNS: Temperature was 36.5 degrees, pulse 61, respiratory rate 18, blood pressure was 146/51. HEENT: Atraumatic. Oral mucosa is moist. NECK: Supple. No goiter. CHEST: Clear. HEART: Regular, not tachycardic. ABDOMEN: Soft, nontender. Bowel sounds are active. MUSCULOSKELETAL EXAM: Good pulses. No clubbing or cyanosis. NEURO EXAM: Mentating well, no slurred speech or facial asymmetry. The patient has debility. No tremors or focal deficits. LABORATORY DATA: WBC was 5.8, hemoglobin 9.6, platelet count 149,000. Sodium 140, potassium 4.1, BUN of 24, creatinine of 0.88. Phosphorus was 3.5 with magnesium of 1.8. Blood sugar 220 and 240. Blood cultures negative. DIAGNOSTIC DATA: Echocardiogram on 01/20 showed ejection fraction of 40%- 45% with some global hypokinesia. The patient has trace mitral regurgitation. CONSULTS: 1. Physical therapy. 2. Cardiology service. 3. EP service. DISPOSITION: Home today with home health. MEDICATIONS: Please refer to the medication reconciliation form that was on the chart. CODE STATUS: The patient is DNR that will be honored. CONDITION ON DISCHARGE: Stable. DIET: Cardiac/1800 ADA. FOLLOW-UP: 1. Follow up with Dr. Berry from Cardiology in 1 week, he has an appointment on the 18 of February. We need to discuss and decide about his Eliquis that was held during this admission due to hematoma at his procedure site. 2. Follow up with his PCP in a week. 3. Call 911 for any emergency or unusual symptoms. 4. Check his blood sugar at least twice a day, document the readings for further adjustment of the new regimen as outpatient. 5. I did talk to the patient at length about his condition, his was at bedside. She is his main caregiver. I think he is stable for discharge. Outpatient general cardiology visit on AUG 05: 69-year-old male with history of obesity, hypertension, hyperlipidemia, diabetes , sleep apnea, COPD, heart failure with reduced ejection fraction, lymphoma and atrial fibrillation who returns today for follow-up on heart failure. He has had multiple hospitalizations for heart failure as described below. The patient has done well since the prior visit and lost 4 more pounds. He feels much better. There has been no more interim hospitalizations. He was admitted to [facility] 01/19/19 through 02/07/19 after he presented to [facility] not feeling well and was found to be in complete heart block therefore he underwent pacemaker placement on 01/24/[address] Christian. During that hospitalization he was found also to have ventricular tachycardia, decompensated heart failure, acute kidney injury. His ejection fraction was 40%. He also developed pocket hematoma at the site of the pacemaker reason why his Eliquis was held. His device interrogation in June 2019 demonstrated recurrence of his atrial fibrillation. Hospitalizations: -07/07/16 through 07/11/16 at [facility]: Decompensated heart failure. -Unknown date at [facility]: Severe infection in the scrotal area requiring surgery. -June 2018 at [facility]: Respiratory failure, anemia and paroxysmal atrial fibrillation after he was found obtunded at home. He required intubation. -01/19/19 through 02/07/19: [facility] for complete heart block, ventricular tachycardia, acute on chronic hypoxemic respiratory failure secondary to COPD, acute decompensated heart failure. Reason For Visit: VENTRICULAR TACHYCARDIA, ACUTE ON CHRONIC Physical Exam Vital Signs: Temp Pulse Resp BP Pulse Ox 97.4 F 80 24 H 88/56 L 94 12/09/19 03:41 12/09/19 03:46 12/09/19 05:43 12/09/19 03:46 12/09/19 03:41 Intake & Output 12/07/19 12/08/19 12/09/19 06:59 06:59 06:59 Intake Total 1397 1930 1530 Output Total 1775 1150 545 Balance -378 780 985 Weight 129.7 kg 125.4 kg Results Laboratory Results: 12/09/19 06:32 12/08/19 12/08/19 12/08/19 09:00 09:00 09:30 WBC 7.7 RBC 2.90 L Hgb 8.0 L Hct 24.8 L MCV 86 MCH 27.5 MCHC 32.1 RDW 18.6 H Plt Count 153 Seg Neutrophils % Carbonic Acid 2.21 H HCO3/H2CO3 Ratio 14:1 ABG pH 7.26 L ABG pCO2 73.4 H* ABG pO2 92.5 ABG HCO3 31.8 H ABG O2 Saturation 95.6 ABG Base Excess 3.4 FiO2 35% Sodium 143.9 Potassium 4.1 Chloride 101 Carbon Dioxide 32 H Anion Gap 11 BUN 65 H Creatinine 1.88 H Est GFR ( Amer) 43 L Glucose 129 H Calcium 7.9 L Blood Type Antibody Screen 12/08/19 12/08/19 12/09/19 12:35 21:30 06:32 WBC 7.2 7.3 RBC 2.89 L 2.85 L Hgb 8.0 L 7.9 L Hct 24.9 L 24.5 L MCV 86 86 MCH 27.8 27.8 MCHC 32.2 32.5 RDW 18.0 H 17.9 H Plt Count 154 143 L Seg Neutrophils % 78.6 H Carbonic Acid HCO3/H2CO3 Ratio ABG pH ABG pCO2 ABG pO2 ABG HCO3 ABG O2 Saturation ABG Base Excess FiO2 Sodium Potassium Chloride Carbon Dioxide Anion Gap BUN Creatinine Est GFR ( Amer) Glucose Calcium Blood Type O NEGATIVE Antibody Screen NEGATIVE 11/27/19 11/27/19 11/27/19 14:30 14:30 14:30 Creatine Kinase 93 CK-MB (CK-2) 2.99 Troponin I 0.044 NT-Pro-B Natriuret Pep 4090 H 11/27/19 11/28/19 11/28/19 20:00 02:10 08:23 Creatine Kinase CK-MB (CK-2) Troponin I 0.473 0.681 0.594 NT-Pro-B Natriuret Pep 12/08/19 09:00 Creatine Kinase CK-MB (CK-2) Troponin I NT-Pro-B Natriuret Pep 5080 H Impressions: Chest X-Ray 12/08/19 00:00 IMPRESSION: NO SIGNIFICANT CHANGE IN APPEARANCE OF THE CHEST. 12/09/19 06:32 12/09/19 06:32 MCV 86 fl (80-97) 12/09/19 06:32 MCH 27.8 pg (27.0-33.4) 12/09/19 06:32 MCHC 32.5 g/dL (32.0-36.0) 12/09/19 06:32 RDW 17.9 % (11.5-14.0) H 12/09/19 06:32 Seg Neutrophils % 78.6 % (42-78) H 12/08/19 21:30 Carbonic Acid 2.21 mmol/L (1.05-1.35) H 12/08/19 09:30 HCO3/H2CO3 Ratio 14:1 12/08/19 09:30 ABG pH 7.26 (7.35-7.45) L 12/08/19 09:30 ABG pCO2 73.4 mmHg (35-45) H* 12/08/19 09:30 ABG pO2 92.5 mmHg (80-100) 12/08/19 09:30 ABG HCO3 31.8 mmol/L (20-24) H 12/08/19 09:30 ABG O2 Saturation 95.6 % (94-98) 12/08/19 09:30 ABG Base Excess 3.4 mmol/L 12/08/19 09:30 VBG pH 7.30 (7.30-7.42) 11/27/19 16:18 VBG pCO2 71.5 mmHg (35-63) H* 11/27/19 16:18 VBG HCO3 34.0 mmol/L (20-32) H 11/27/19 16:18 VBG Base Excess 5.9 mmol/L 11/27/19 16:18 FiO2 35% 12/08/19 09:30 Chloride 102 mmol/L (98-107) 12/09/19 06:32 Carbon Dioxide 34 mmol/L (22-30) H 12/09/19 06:32 Anion Gap 5 (5-19) 12/09/19 06:32 Est GFR ( Amer) 34 (>60) L 12/09/19 06:32 Glucose 121 mg/dL (75-110) H 12/09/19 06:32 Calcium 7.7 mg/dL (8.4-10.2) L 12/09/19 06:32 Magnesium 3.1 mg/dL (1.6-2.3) H 12/07/19 06:02 Total Bilirubin 1.2 mg/dL (0.2-1.3) 12/07/19 06:02 AST 32 U/L (17-59) 12/07/19 06:02 Alkaline Phosphatase 240 U/L (38-126) H 12/07/19 06:02 Ammonia 39.7 umol/L (9-33) H 12/03/19 11:33 Total Protein 5.6 g/dL (6.3-8.2) L 12/07/19 06:02 Albumin 3.5 g/dL (3.5-5.0) 12/07/19 06:02 TSH 2.09 uIU/mL (0.47-4.68) 11/28/19 08:23 Free T4 1.18 ng/dL (0.78-2.19) 11/28/19 08:23 Urine Color ALY 12/09/19 06:39 Urine Appearance CLOUDY 12/09/19 06:39 Urine pH 5.0 (5.0-9.0) 12/09/19 06:39 Ur Specific Olivia 1.017 12/09/19 06:39 Urine Protein 100 mg/dL (NEGATIVE) H 12/09/19 06:39 Urine Glucose (UA) NEGATIVE mg/dL (NEGATIVE) 12/09/19 06:39 Urine Ketones NEGATIVE mg/dL (NEGATIVE) 12/09/19 06:39 Urine Blood LARGE (NEGATIVE) H 12/09/19 06:39 Urine Nitrite NEGATIVE (NEGATIVE) 12/09/19 06:39 Ur Leukocyte Esterase SMALL (NEGATIVE) H 12/09/19 06:39 Urine WBC (Auto) >182 /HPF 12/09/19 06:39 Urine RBC (Auto) >182 /HPF 12/09/19 06:39 Stool Occult Blood POSITIVE (NEGATIVE) 12/05/19 05:50 Blood Type O NEGATIVE 12/08/19 12:35 Antibody Screen NEGATIVE 12/08/19 12:35 11/27/19 11/27/19 11/27/19 14:30 14:30 14:30 Creatine Kinase 93 CK-MB (CK-2) 2.99 Troponin I 0.044 NT-Pro-B Natriuret Pep 4090 H 11/27/19 11/28/19 11/28/19 20:00 02:10 08:23 Creatine Kinase CK-MB (CK-2) Troponin I 0.473 0.681 0.594 NT-Pro-B Natriuret Pep 12/08/19 09:00 Creatine Kinase CK-MB (CK-2) Troponin I NT-Pro-B Natriuret Pep 5080 H Current Medication List Generic Name Dose Route Start Last Admin Trade Name Freq PRN Reason Stop Dose Admin Acetaminophen 650 mg 11/27/19 18:10 12/08/19 19:00 Tylenol 325 Mg Tablet PO 12/27/19 18:09 650 mg Q4HP PRN Administration FOR PAIN Acetazolamide 250 mg 12/08/19 22:00 12/09/19 09:34 Diamox 250 Mg Tab PO 01/07/20 21:59 250 mg Q12 EMIL Administration Albuterol/Ipratropium 3 ml 12/02/19 08:46 Duoneb 3 Ml Ampul NEB 01/01/20 08:45 RTQ4HP PRN SHORTNESS OF BREATH Amiodarone HCl 400 mg 12/09/19 10:00 12/09/19 09:21 Cordarone 200 Mg Tablet PO 01/08/20 09:59 400 mg Q12 EMIL Administration Apixaban 5 mg 12/07/19 10:00 12/09/19 09:22 Eliquis 5 Mg Tablet PO 01/06/20 09:59 5 mg BID EMIL Administration Atorvastatin Calcium 80 mg 12/06/19 22:00 12/08/19 22:29 Lipitor 80 Mg Tablet PO 01/05/20 21:59 80 mg QHS EMIL Administration Buspirone HCl 5 mg 12/08/19 10:00 12/09/19 09:22 Buspar 10 Mg Tablet PO 01/07/20 09:59 5 mg DAILY EMIL Administration Carvedilol 3.125 mg 11/28/19 22:00 12/09/19 09:22 Coreg 3.125 Mg Tablet PO 12/28/19 21:59 3.125 mg Q12 EMIL Administration Cyclosporine 1 drop 12/02/19 14:00 12/09/19 09:35 Restasis 0.05% Oph Emulsion Pf 0.4 Ml OU 01/01/20 13:59 1 drop Q12 EMIL Administration Dextrose 12.5 gm 11/27/19 18:22 12/04/19 07:31 Dextrose Inj 50% Syringe (25 Gm/50 Ml) IV 12/27/19 18:21 12.5 gm PRN PRN Administration FOR BG 50-69 IN ALERT PATIENT Protocol Dextrose 25 gm 11/27/19 18:22 Dextrose Inj 50% Syringe (25 Gm/50 Ml) IV 12/27/19 18:21 PRN PRN PER PROTOCOL Protocol Erythromycin 1 applic 12/09/19 09:00 12/09/19 09:24 E-Mycin 0.5% Oph Ointment 3.5 Gm OU 12/16/19 08:59 1 applic Q6A EMIL Administration Glucagon 1 mg 11/27/19 18:22 12/07/19 07:37 Glucagen Inj 1 Mg Vial IM 12/27/19 18:21 1 mg PRN PRN Administration Evaluate for BG < 70 Protocol Glucose 15 gm 11/27/19 18:22 Glutose 40% Gel 15 Gm Tube PO 12/27/19 18:21 PRN PRN FOR BG 50-69 IN ALERT PATIENT Protocol Glucose 30 gm 11/27/19 18:22 Glutose 40% Gel 15 Gm Tube PO 12/27/19 18:21 PRN PRN FOR BG < 50 IN ALERT PATIENT Protocol Insulin Glargine 40 unit 11/27/19 22:00 12/08/19 22:28 Lantus Insulin 100 Unit/1 Ml 10 Ml SUBCUT 12/27/19 21:59 40 unit QHS EMIL Administration Insulin Human Lispro 0 - 12 unit 11/27/19 22:00 12/09/19 08:36 Humalog Insulin 100 Unit/1 Ml 3 Ml Vial SUBCUT 12/27/19 21:59 Not Given ACHS [facility] Protocol Medroxyprogesterone Acetate 10 mg 12/08/19 19:00 Provera 10 Mg Tablet PO 01/07/20 18:59 NOW EMIL Melatonin 10 mg 11/30/19 20:18 12/02/19 23:02 Melatonin 5 Mg Tablet PO 12/30/19 20:17 10 mg HSP PRN Administration FOR SLEEP Nicotine 1 each 11/27/19 18:46 11/27/19 21:18 Nicoderm 21 Mg/24 Hr Transderm Patch TD 12/27/19 18:45 1 each DAILYP PRN Administration nicotine craving Ondansetron HCl 4 mg 11/28/19 14:00 Zofran Inj/Pf 4 Mg/2 Ml Sdv IV 12/27/19 18:09 Q8HP PRN FOR NAUSEA/VOMITING Pantoprazole Sodium 40 mg 12/09/19 10:00 12/09/19 09:21 Protonix Iv Inj 40 Mg Vial IV 12/15/19 09:59 40 mg DAILY EMIL Administration Discontinued Medications Generic Name Dose Route Start Last Admin Trade Name Freq PRN Reason Stop Dose Admin Acetazolamide 500 mg 11/28/19 22:00 12/01/19 21:13 Diamox 250 Mg Tab PO 12/28/19 21:59 500 mg QHS EMIL Administration Albuterol/Ipratropium Confirm 12/02/19 08:50 12/02/19 17:43 Duoneb 3 Ml Ampul Administered 12/02/19 08:51 Not Given Dose 3 ml NEB .STK-MED ONE Amiodarone HCl Confirm 11/27/19 15:14 11/27/19 15:34 Cordarone Inj 150 Mg/3 Ml Vial Administered 11/27/19 15:15 Not Given Dose 150 mg IV .STK-MED ONE Amiodarone HCl Confirm 11/27/19 15:19 11/27/19 15:34 Cordarone Inj 150 Mg/3 Ml Vial Administered 11/27/19 15:20 Not Given Dose 150 mg IV .STK-MED ONE Amiodarone HCl 400 mg 11/28/19 17:00 12/08/19 17:10 Cordarone 200 Mg Tablet PO 12/28/19 16:59 400 mg Q12A EMIL Administration Apixaban 5 mg 11/27/19 22:00 11/28/19 09:41 Eliquis 5 Mg Tablet PO 12/27/19 21:59 5 mg Q12 EMIL Administration Apixaban 5 mg 11/28/19 18:00 12/05/19 10:00 Eliquis 5 Mg Tablet PO 12/28/19 17:59 Not Given BID EMIL Aspirin 81 mg 11/27/19 18:30 12/05/19 10:00 Aspirin 81 Mg Chewable Tablet PO 12/27/19 18:29 81 mg DAILY EMIL Administration Aspirin 324 mg 11/27/19 21:46 11/27/19 22:11 Aspirin 81 Mg Chewable Tablet PO 11/27/19 21:47 324 mg NOW ONE Administration Aspirin Confirm 11/27/19 22:12 11/27/19 23:06 Aspirin 81 Mg Chewable Tablet Administered 11/27/19 22:13 Not Given Dose 81 mg .ROUTE .STK-MED ONE Atorvastatin Calcium 80 mg 11/28/19 10:00 12/06/19 12:58 Lipitor 80 Mg Tablet PO 12/28/19 09:59 Not Given DAILY EMIL Atorvastatin Calcium 80 mg 11/27/19 18:45 11/27/19 18:55 Lipitor 80 Mg Tablet PO 11/27/19 18:46 80 mg NOW ONE Administration Buspirone HCl 10 mg 11/28/19 18:00 12/07/19 18:46 Buspar 10 Mg Tablet PO 12/28/19 17:59 10 mg QPM EMIL Administration Buspirone HCl 10 mg 11/27/19 18:45 11/27/19 18:55 Buspar 10 Mg Tablet PO 11/27/19 18:46 10 mg NOW ONE Administration Carvedilol 6.25 mg 11/28/19 10:00 Coreg 6.25 Mg Tablet PO 12/28/19 09:59 Q12 [facility] Carvedilol 6.25 mg 11/27/19 18:45 11/27/19 18:56 Coreg 6.25 Mg Tablet PO 11/27/19 18:46 6.25 mg NOW ONE Administration Carvedilol 3.125 mg 11/28/19 10:00 11/28/19 18:28 Coreg 3.125 Mg Tablet PO 12/28/19 09:59 Not Given Q12 [facility] Enoxaparin Sodium 130 mg 11/27/19 23:00 Lovenox Inj 150 Mg/1 Ml Disp.Syrin SUBCUT 12/27/19 22:59 Q12 [facility] Enoxaparin Sodium 130 mg 11/28/19 10:00 Lovenox Inj 150 Mg/1 Ml Disp.Syrin SUBCUT 12/28/19 09:59 Q12 [facility] Ephedrine Sulfate Confirm 12/07/19 07:51 Ephedrine Sulfate Inj 50 Mg/Ml Ampule Administered 12/07/19 07:52 Dose 50 mg .ROUTE .STK-MED ONE Erythromycin 1 applic 12/07/19 00:00 12/09/19 00:09 E-Mycin 0.5% Oph Ointment 3.5 Gm OU 12/14/19 00:00 Not Given Q6 [facility] Etomidate 20 mg 11/27/19 10:18 Amidate Inj/Pf 20 Mg/10 Ml Sdv IV 11/27/19 10:19 .STK-MED ONE Furosemide 40 mg 11/27/19 14:59 11/27/19 15:08 Lasix Inj/Pf 40 Mg/4 Ml Sdv IV 11/27/19 15:00 40 mg NOW ONE Administration Furosemide 80 mg 11/27/19 22:00 11/28/19 09:32 Lasix Inj/Pf 100 Mg/10 Ml Sdv IV 12/27/19 21:59 80 mg Q12H EMIL Administration Furosemide 80 mg 11/28/19 22:00 11/29/19 21:13 Lasix Inj/Pf 40 Mg/4 Ml Sdv IV 12/28/19 21:59 Not Given Q12 EMIL Furosemide 40 mg 11/30/19 14:00 10/14/20 17:15 Lasix Inj/Pf 40 Mg/4 Ml Sdv IV 12/30/19 13:59 Not Given BID EMIL Furosemide 40 mg 12/04/19 07:55 Lasix Inj/Pf 40 Mg/4 Ml Sdv IV 12/04/19 07:56 NOW ONE Furosemide 40 mg 12/04/19 12:00 12/04/19 12:08 Lasix Inj/Pf 40 Mg/4 Ml Sdv IV 12/04/19 12:01 40 mg NOW ONE Administration Furosemide 10 mg 12/07/19 08:32 Lasix Inj/Pf 20 Mg/2 Ml Sdv IV 12/08/19 08:31 .AFTER FIRST UNIT PRN THIS MED IS NOT "PRN" Amiodarone HCl 900 mg/ 500 mls @ 0 mls/hr 11/27/19 14:54 11/28/19 18:27 Dextrose IV 11/30/19 14:53 Infused CONTINUOUS PRN Titration THIS MED IS NOT "PRN" Protocol Per Protocol Lactated Ringer's 1,000 mls @ 80 mls/hr 12/02/19 12:27 12/02/19 12:53 Lactated Ringers 1000 Ml Iv Soln IV 80 mls/hr CONTINUOUS PRN Administration THIS MED IS NOT "PRN" Sodium Chloride 1,000 mls @ 100 mls/hr 12/04/19 07:58 12/04/19 17:30 Nacl 0.9% 1000 Ml Iv Soln IV 01/03/20 07:57 Infused CONTINUOUS PRN Infusion THIS MED IS NOT "PRN" Calcium Gluconate 1 gm in 50 mls @ 50 mls/hr 12/04/19 08:30 12/04/19 10:09 Calcium Gluconate Rtu 1 Gm/50 Ml IV 12/04/19 10:29 50 mls/hr Q1H EMIL Administration Sodium Chloride 250 mls @ 30 mls/hr 12/05/19 07:54 Nacl 0.9% 250 Ml Iv Soln IV 12/06/19 07:53 .DURING TRANSFUSION PRN THIS MED IS NOT "PRN" Sodium Chloride 250 mls @ 0 mls/hr 12/05/19 07:54 Nacl 0.9% 250 Ml Iv Soln IV 12/06/19 07:53 CONTINUOUS PRN AFTER EACH UNIT As Directed Sodium Chloride 1,000 mls @ 80 mls/hr 12/05/19 10:25 12/07/19 02:38 Nacl 0.9% 1000 Ml Iv Soln IV 01/04/20 10:24 Infused CONTINUOUS PRN Infusion THIS MED IS NOT "PRN" Sodium Chloride 250 mls @ 30 mls/hr 12/06/19 17:51 Nacl 0.9% 250 Ml Iv Soln IV 12/07/19 17:50 .DURING TRANSFUSION PRN THIS MED IS NOT "PRN" Sodium Chloride 250 mls @ 0 mls/hr 12/06/19 17:51 Nacl 0.9% 250 Ml Iv Soln IV 12/07/19 17:50 CONTINUOUS PRN AFTER EACH UNIT As Directed Potassium Chloride/Water 20 meq in 50 mls @ 25 mls/hr 12/06/19 18:50 12/07/19 02:38 Potassium Chloride Juan Manuel 20 Meq/50 Ml IV 12/06/19 20:49 Infused NOW ONE Infusion Dextrose/Sodium Chloride 1,000 mls @ 100 mls/hr 12/07/19 07:56 D5ns 1000 Ml Iv Soln IV 01/06/20 07:55 CONTINUOUS PRN THIS MED IS NOT "PRN" Dextrose/Sodium Chloride 1,000 mls @ 100 mls/hr 12/07/19 08:31 D5-1/2ns 1000 Ml Iv Soln IV 01/06/20 08:30 CONTINUOUS PRN THIS MED IS NOT "PRN" Sodium Chloride 250 mls @ 30 mls/hr 12/07/19 08:32 Nacl 0.9% 250 Ml Iv Soln IV 12/08/19 08:31 .DURING TRANSFUSION PRN THIS MED IS NOT "PRN" Sodium Chloride 250 mls @ 0 mls/hr 12/07/19 08:32 Nacl 0.9% 250 Ml Iv Soln IV 12/08/19 08:31 CONTINUOUS PRN AFTER EACH UNIT As Directed Lactated Ringer's 1,000 mls @ 75 mls/hr 12/07/19 19:20 12/09/19 04:00 Lactated Ringers 1000 Ml Iv Soln IV 01/06/20 19:19 75 mls/hr CONTINUOUS PRN Administration THIS MED IS NOT "PRN" Influenza Virus Vaccine Quadrival 0.5 ml 12/01/19 08:00 Flulaval Quad Vac 0.5 Ml Syr IM 12/01/19 08:01 .ONCE ONE Insulin Glargine 40 unit 11/27/19 18:38 Lantus (Pyxis) Insulin 100 Unit/1 Ml 10 Ml SUBCUT 11/27/19 23:59 ASDIR PRN Insulin Human Regular Confirm 11/27/19 18:54 11/27/19 19:01 Humulin R (Pyxis) Insulin 100 Unit/Ml 3ml Administered 11/27/19 18:55 Not Given Dose 1 unit .ROUTE .STK-MED ONE Midazolam HCl Confirm 12/07/19 08:31 Versed 2 Mg/2 Ml Inj Administered 12/07/19 08:32 Dose 2 mg .ROUTE .STK-MED ONE Morphine Sulfate 2 mg 11/27/19 14:59 11/27/19 15:07 Morphine 10 Mg/Ml Inj IV 11/27/19 15:00 2 mg NOW ONE Administration Ondansetron HCl 4 mg 11/27/19 18:10 Zofran Inj/Pf 4 Mg/2 Ml Sdv IV 12/27/19 18:09 Q8HP PRN FOR NAUSEA/VOMITING Pantoprazole Sodium 40 mg 12/05/19 15:15 12/08/19 09:12 Protonix Iv Inj 40 Mg Vial IV 12/08/19 15:14 40 mg Q12 EMIL Administration Polyethylene Glycol/Electrolytes 4,000 ml 12/05/19 15:00 12/05/19 15:15 Golytely Solution 4000 Ml PO 12/05/19 15:01 4,000 ml NOW ONE Administration Propofol Confirm 12/07/19 07:51 Diprivan Inj 200 Mg/20 Ml Vial Administered 12/07/19 07:52 Dose 200 mg IV .STK-MED ONE Sacubitril/Valsartan 1 tab 11/29/19 10:00 12/08/19 17:10 Entresto 24 Mg/26 Mg Tablet PO 12/29/19 09:59 1 tab BID EMIL Administration Assessment & Plan - Diagnosis (1) Heart failure with reduced ejection fraction Plan: Unfortunately he has taken a turn for the worse with some hypotension, metabolic dearrangements and worsening renal function despite being fluid overloaded. His prognosis is very poor at this point. He had been non-compliant with medications and diet therefore he was deemed not a candidate for advanced therapies such as cardiac mechanical support with LVAD. Besides, his case was discussed with his who stated that, in prior conversations with him in the past, he did not want invasive or prolonged therapies therefore he was made a DNR. I just spoke with his hospitalist, MIA Petersen, and we agreed to offer invasive therapies again although, I still don't believe, the patient is a good candidate for such ther apies. In the meantime, we will continue to treat him medically with close attention to his renal function and BP. I really appreciate pulmonary input. (2) Elevated troponin Is this a current diagnosis for this admission?: Yes Plan: The patient had a mildly elevated troponin which has now down trended. I believe this issue is multifactorial to include ischemic heart disease particular in the setting of VT and decompensated heart failure however cannot completely rule out a degree of just supply/demand mismatch. Unfortunately the patient is not currently a candidate for further cardiovascular assessment given his overall medical condition as well as his renal dysfunction. Recommendations: -Continue with current medical management for now. -We will continue to follow-up with you. (3) Ventricular tachycardia Is this a current diagnosis for this admission?: Yes Plan: Likely secondary to cardiac ischemia. Unfortunately patient is not a candidate for further ischemic assessment at this point. We will continue with current medical management and will consider further ischemic assessment when he improves. (4) Atrial fibrillation Is this a current diagnosis for this admission?: Yes Plan: Well controlled at this point. He is paced and now anticoagulated without gross evidence of recurrence of GI bleed. Recommendations: -Continue with current medical management. (5) Hypertension Qualifiers: Hypertension type: essential hypertension Qualified Code(s): I10 - Essential (primary) hypertension Is this a current diagnosis for this admission?: Yes Plan: He has now being experiencing episodes of hypotension, please see above for recommendations.
--- NOTE | 2019-12-09 14:18 | PDOC TRANSFER SUMMARY ---
General - Admit/Disc Date/PCP Admission Date/Primary Care Provider: 11/27/19 18:21 HILARIA ALFARO MD Discharge Date: 12/09/19 - Discharge Diagnosis (1) Acute on chronic systolic CHF (congestive heart failure) Is this a current diagnosis for this admission?: Yes (2) Hypercapnic respiratory failure Is this a current diagnosis for this admission?: Yes (3) JOHANNY (acute kidney injury) Is this a current diagnosis for this admission?: Yes (4) GI bleed Is this a current diagnosis for this admission?: Yes (5) Acute blood loss anemia Is this a current diagnosis for this admission?: Yes (6) NSTEMI (non-ST elevated myocardial infarction) Is this a current diagnosis for this admission?: Yes (7) PATEL (obstructive sleep apnea) Is this a current diagnosis for this admission?: Yes (8) Physical deconditioning Is this a current diagnosis for this admission?: Yes (9) Ventricular tachycardia Is this a current diagnosis for this admission?: Yes (10) Atrial fibrillation Is this a current diagnosis for this admission?: Yes (11) Conjunctivitis Is this a current diagnosis for this admission?: Yes (12) Diabetes mellitus type 2 in obese Is this a current diagnosis for this admission?: Yes (13) Tobacco abuse Is this a current diagnosis for this admission?: Yes (14) Morbid obesity with BMI of 40.0-44.9, adult Is this a current diagnosis for this admission?: Yes (15) Dry eyes, bilateral Is this a current diagnosis for this admission?: Yes - Additional Information Resuscitation Status: Do Not Resuscitate Discharge Diet: As Tolerated, Cardiac, Diabetic Discharge Activity: Activity As Tolerated, Balance Activity w/Rest, Weigh Daily Prescriptions: Amiodarone HCl [Cordarone 200 mg Tablet] 400 mg PO Q12 #60 tablet Carvedilol [Coreg 3.125 mg Tablet] 3.125 mg PO Q12 #28 tablet Acetazolamide [Diamox 250 mg Tab] 250 mg PO Q12 #28 tablet Medroxyprogesterone Acet [Provera 10 mg Tablet] 10 mg PO DAILY #14 tablet Home Medications: Buspirone HCl 5 mg PO DAILY 11/28/19 Furosemide [Lasix 80 mg Tablet] 80 mg PO BID 11/28/19 Gabapentin [Neurontin] 600 mg PO Q8 11/28/19 Insulin Glargine,Hum.rec.anlog [Lantus Insulin 100 Unit/1 ml 10 ml] 40 unit SQ Q12 11/28/19 Meloxicam [Mobic 7.5 mg Tablet] 7.5 mg PO DAILYP PRN 11/28/19 Acetaminophen [Tylenol 325 mg Tablet] 650 mg PO Q4HP PRN tablet 12/09/19 Acetazolamide [Diamox 250 mg Tab] 250 mg PO Q12 #28 tablet 12/09/19 Amiodarone HCl [Cordarone 200 mg Tablet] 400 mg PO Q12 #60 tablet 12/09/19 Carvedilol [Coreg 3.125 mg Tablet] 3.125 mg PO Q12 #28 tablet 12/09/19 Medroxyprogesterone Acet [Provera 10 mg Tablet] 10 mg PO DAILY #14 tablet 12/09/19 History of Present Illness Admission Date/PCP: 11/27/19 18:21 HILARIA ALFARO MD Patient complains of: chest pain History of Present Illness: Per H&P by Dr. Huerta: THEODORE RUIZ is a 69 year old male with PMH of HTN, HLD, morbid obesity (BMI 43), atrial fibrillation on AC, CHB s/p pacemaker, HFrEF (40%), ventricular tachycardia, PAD, Follicular Lymphoma, insulin dependent DM2, and PATEL on BIPAP who presented to the ED via EMS which CC of SOB and CP that started around 1000 this morning. He was in his usual state of health when he went to bed last night. When he woke up this morning, he reported some pressure-like chest pain associated with nausea. His called EMS. EMS reported that the patient was in V-tach on the monitor with a rate in the 170s upon their arrival. They administered 2 rounds of Adenosine (initially 6 mg, then 12 mg) without success, so they then administered 150 mg Amiodarone with subsequent conversion to a slower rate. Patient is followed by Dr. Berry for cardiology. He and his state that he has been compliant with his medication regimen and his diuretics, but continues to have progressively worsening SOB and GALLEGO which has become worse throughout the last month. He is barely able to ambulate due to the SOB. He uses a walker to get around in the house, but doesn't walk outside. He is not on home O2 therapy. Hospital Course Hospital Course: (1) Acute on chronic systolic CHF (congestive heart failure) - repeat echo EF <35%, LV moderately dilated, severe global hypokinesis BNP 4090-> 5080 Started on Entresto with holding parameters Continue carvedilol Holding the spironolactone secondary to worsening renal function. Resume Eliquis Fluid and sodium restriction Cardio following. Per Dr. Berry, with his deteriorating kidney function a LHC is indefinitely placed on hold. Primary management per Dr. Berry. Discussed with Dr. Ortiz and Dr. Berry possibility of LVAD or transfer to [facility] ([place] or [place]) as all parties agreed that we have exhausted hospital benefit at our facility. I did discuss possible transfer with patient's , Shara Ruiz. Mrs. Ruiz states that she does not wish to subject him to further procedures. She states that in the past, he has stated his desire to have a "natural ." Mrs. Ruiz requests to take her home. We discussed discharge to home with hospice services to which she was immediately agreeable. (2) Hypercapnic respiratory failure ABG reveals partially compensated respiratory acidosis with hypercapnia. Placed back on BIPAP; has been on BiPAP continuously >72 hrs Patient's endorses [id number] history (1.5 packs x ~40 years). Known history of COPD. 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 Pulmonology was consulted; greatly appreciate Dr. Ortiz's evaluation recommendations. (3) JOHANNY (acute kidney injury) No improvement. Cr 1.72>1.94>1.97>2.3>2.3>2.32-> 1.92-> 1.75-> 1.88-> 2.31 Secondary to cardiorenal syndrome. Normal renal function 2018. Nephrology was consulted; appreciate their evaluation recommendations. Avoid nephrotoxic medications as able; renally dosed where appropriate. Arzate catheter. Efforts made to optimize cardiac output. (4) GI bleed Resolved Surgery was consulted; underwent EGD and colonoscopy yesterday Colonoscopy was essentially unremarkable. EGD revealed mild gastritis. Spoke with Dr. Glynn; recommends continued PPI. He does not object to resumption of anticoagulation at this time. Continue Protonix daily (5) Acute blood loss anemia Secondary to GI bleed. Patient has received 3 PRBC EDG and colonoscopy results as above. Continue Protonix. Have resumed Eliquis; no obvious reoccurrence of bleeding. Now discharging on Home Hospice service. (6) NSTEMI (non-ST elevated myocardial infarction) No evidence of ischemic changes on EKG. Likely demand mismatch ischemia. Not a candidate for [facility] due to renal function; now with cardiorenal syndrome. - Trop peaked at 0.68 decreased to 0.59 Continue aspirin, carvedilol, statin Cardiology is consulted. Primary management per Dr. Berry. (7) PATEL (obstructive sleep apnea) Continue on BIPAP (8) Physical deconditioning (9) Ventricular tachycardia No further episodes; electrolytes have been corrected. Cardiology was consulted. Continue carvedilol and amiodarone. (10) Atrial fibrillation Resumed Eliquis; now discharging on home hospice service. Continue medication per hospice provider's recommendations. - on amio and carvedilol Cardiology was consulted. (11) Conjunctivitis Improved; continue erythromycin ointment (12) Diabetes mellitus type 2 in obese Continue home Lantus at half home dose of 40 units HS Carb controlled diet (13) Tobacco abuse Encourage cessation - nicotine patch (14) Morbid obesity with BMI of 40.0-44.9, adult (15) Dry eyes, bilateral Improved; due to air leak from bipap - prescribed lubricant eye drops Physical Exam Vital Signs: Temp Pulse Resp BP Pulse Ox 97.4 F 80 24 H 88/56 L 97 12/09/19 10:00 12/09/19 07:00 12/09/19 12:27 12/09/19 03:46 12/09/19 08:00 Intake & Output 12/08/19 12/09/19 12/10/19 06:59 06:59 06:59 Intake Total 1930 1530 Output Total 1150 595 Balance 780 935 Weight 125.4 kg 132.1 kg General appearance: PRESENT: mild distress, morbidly obese, well-developed, well-nourished, other - chronically ill appearing Head exam: PRESENT: atraumatic, normocephalic Eye exam: PRESENT: conjunctiva pink, EOMI, PERRLA. ABSENT: scleral icterus Mouth exam: PRESENT: moist, tongue midline Teeth exam: PRESENT: poor dentation Respiratory exam: PRESENT: accessory muscle use, clear to auscultation ernesto, decreased breath sounds - limited by body habitus, positioning, and patient's ability participate in exam, prolonged expiratory phas, symmetrical, other - BiPAP dependent. ABSENT: rales, rhonchi, wheezes Cardiovascular exam: PRESENT: irregular rhythm, +S1, +S2. ABSENT: diastolic murmur, rubs, systolic murmur Pulses: PRESENT: normal dorsalis pedis pul Vascular exam: PRESENT: normal capillary refill GI/Abdominal exam: PRESENT: normal bowel sounds, soft. ABSENT: distended, guarding, mass, organolmegaly, rebound, tenderness Rectal exam: PRESENT: deferred Gentrourinary exam: PRESENT: indwelling catheter Extremities exam: PRESENT: full ROM. ABSENT: calf tenderness, clubbing, pedal edema Neurological exam: PRESENT: CN II-XII grossly intact, other - Responds to voice; does not answer questions or follow directions. Occasionally speaks random, short, phrases.. ABSENT: motor sensory deficit Skin exam: PRESENT: dry, warm, other - scattered ecchymosis. ABSENT: cyanosis, rash Results Laboratory Results: 12/09/19 06:32 12/09/19 06:32 12/08/19 12/08/19 12/09/19 12:35 21:30 06:32 WBC 7.2 7.3 RBC 2.89 L 2.85 L Hgb 8.0 L 7.9 L Hct 24.9 L 24.5 L MCV 86 86 MCH 27.8 27.8 MCHC 32.2 32.5 RDW 18.0 H 17.9 H Plt Count 154 143 L Seg Neutrophils % 78.6 H Sodium Potassium Chloride Carbon Dioxide Anion Gap BUN Creatinine Est GFR ( Amer) Glucose Calcium Urine Color Urine Appearance Urine pH Ur Specific [place] Urine Protein Urine Glucose (UA) Urine Ketones Urine Blood Urine Nitrite Ur Leukocyte Esterase Urine WBC (Auto) Urine RBC (Auto) Blood Type O NEGATIVE Antibody Screen NEGATIVE 12/09/19 12/09/19 06:32 06:39 WBC RBC Hgb Hct MCV MCH MCHC RDW Plt Count Seg Neutrophils % Sodium 141.4 Potassium 4.0 Chloride 102 Carbon Dioxide 34 H Anion Gap 5 BUN 69 H Creatinine 2.31 H Est GFR ( Amer) 34 L Glucose 121 H Calcium 7.7 L Urine Color ALY Urine Appearance CLOUDY Urine pH 5.0 Ur Specific [place] 1.017 Urine Protein 100 H Urine Glucose (UA) NEGATIVE Urine Ketones NEGATIVE Urine Blood LARGE H Urine Nitrite NEGATIVE Ur Leukocyte Esterase SMALL H Urine WBC (Auto) >182 Urine RBC (Auto) >182 Blood Type Antibody Screen 11/27/19 11/27/19 11/27/19 14:30 14:30 14:30 Creatine Kinase 93 CK-MB (CK-2) 2.99 Troponin I 0.044 NT-Pro-B Natriuret Pep 4090 H 11/27/19 11/28/19 11/28/19 20:00 02:10 08:23 Creatine Kinase CK-MB (CK-2) Troponin I 0.473 0.681 0.594 NT-Pro-B Natriuret Pep 12/08/19 09:00 Creatine Kinase CK-MB (CK-2) Troponin I NT-Pro-B Natriuret Pep 5080 H Impressions: Chest X-Ray 12/08/19 00:00 IMPRESSION: NO SIGNIFICANT CHANGE IN APPEARANCE OF THE CHEST. Transfer Plan - Disposition Transfer Plan: Discharge to home with home hospice services through [facility]. - Time Spent with Patient Time spent with patient: Greater than 30 Minutes Qualifiers PATIENT BEING DISCHARGED WITH ANY OF THE FOLLOWING DIAGNOSIS: No Plan Discharge Plan: Discharge to home with home health services through [facility]. Time Spent: Greater than 30 Minutes
[2019-12-09 14:57] VITALS: BP 92/47
== END 2019-12-09 17:21 | disposition hospice, home (50) | DRG 280 ==
LOC: ER 14:23 → EH 18:21 → 3S 21:01
PROVIDERS: ADMIT Hospitalist; ATTEND Registered Nurse
PROC: B24BZZ4 Ultrasonography of Heart with Aorta, Transesophageal (ICD-10-PCS; 2019-11-29)
PROC: 5A09557 Assistance with Respiratory Ventilation, Greater than 96 Consecutive Hours, Continuous Positive Airway Pressure (ICD-10-PCS; 2019-12-02)
PROC: 30233N1 Transfusion of Nonautologous Red Blood Cells into Peripheral Vein, Percutaneous Approach (ICD-10-PCS; 2019-12-05)
PROC: 30233L1 Transfusion of Nonautologous Fresh Plasma into Peripheral Vein, Percutaneous Approach (ICD-10-PCS; principal; 2019-12-06)
PROC: 0DB78ZX Excision of Stomach, Pylorus, Via Natural or Artificial Opening Endoscopic, Diagnostic (ICD-10-PCS; 2019-12-07)
PROC: 0DJD8ZZ Inspection of Lower Intestinal Tract, Via Natural or Artificial Opening Endoscopic (ICD-10-PCS; 2019-12-07)
DX: I47.2 Ventricular tachycardia (principal); I21.A1 Myocardial infarction type 2; K29.71 Gastritis, unspecified, with bleeding; I50.23 Acute on chronic systolic (congestive) heart failure; N17.9 Acute kidney failure, unspecified; D62 Acute posthemorrhagic anemia; Z68.41 Body mass index [BMI] 40.0-44.9, adult; E87.1 Hypo-osmolality and hyponatremia; E66.2 Morbid (severe) obesity with alveolar hypoventilation; H04.123 Dry eye syndrome of bilateral lacrimal glands; I11.0 Hypertensive heart disease with heart failure; E78.5 Hyperlipidemia, unspecified; E11.42 Type 2 diabetes mellitus with diabetic polyneuropathy; E11.649 Type 2 diabetes mellitus with hypoglycemia without coma; D63.8 Anemia in other chronic diseases classified elsewhere; E83.39 Other disorders of phosphorus metabolism; K21.9 Gastro-esophageal reflux disease without esophagitis; Z66 Do not resuscitate; I25.10 Atherosclerotic heart disease of native coronary artery without angina pectoris; J44.9 Chronic obstructive pulmonary disease, unspecified; E11.51 Type 2 diabetes mellitus with diabetic peripheral angiopathy without gangrene; F17.210 Nicotine dependence, cigarettes, uncomplicated; I48.0 Paroxysmal atrial fibrillation; K44.9 Diaphragmatic hernia without obstruction or gangrene; H10.503 Unspecified blepharoconjunctivitis, bilateral; I95.9 Hypotension, unspecified; Z78.1 Physical restraint status; Z79.82 Long term (current) use of aspirin; Z03.818 Encounter for observation for suspected exposure to other biological agents ruled out; Z79.899 Other long term (current) drug therapy; Z79.4 Long term (current) use of insulin; Z95.0 Presence of cardiac pacemaker; Z79.01 Long term (current) use of anticoagulants; Z82.49 Family history of ischemic heart disease and other diseases of the circulatory system; Z83.3 Family history of diabetes mellitus
CPT/HCPCS: 00813; 36415; 36430; 36600; 43239; 45380; 71045; 80048; 80053; 80307; 81001; 82140; 82272; 82550; 82553; 82803; 82962; 83036; 83735; 83880; 84439; 84443; 84484; 85025; 85027; 85610; 85730; 86850; 86900; 86901; 86920; 87070; 87635; 88305; 88342; 93005; 93010; 93306; 94640; 94660; 96361; 96374; 96375; 99140; 99285; J0610; C9113; C9803; J0282; J1610; J1815; J1940; J2250; J2270; J2704; J3480; J3490; J7030; J7060; J7120; P9016; P9017